=== PATIENT | male | born 1950 | race Caucasian/White ===

== ENCOUNTER 2018-03-23 05:58 | Outpatient (CLI) | payer OTHER ==
[~2018-03-23] VITALS: Ht 172.7 cm; Wt 72.6 kg
[2018-03-23] MEDS ORDERED: DILT120C85 PO (14:08)
[2018-03-23] MEDS ORDERED: LATA7.5D OP (14:08)
[2018-03-23] MEDS ORDERED: DORZ10DR22 OP (14:08)
[2018-03-23] MEDS ORDERED: LISI1TAB8 PO (14:08)
== END 2018-03-23 14:33 | disposition home or self-care (01) ==
LOC: PREOP 05:58
PROVIDERS: ATTEND Specialist
DX: Z01.818 Encounter for other preprocedural examination (principal)

== ENCOUNTER 2018-03-26 06:21 | Day surgery (SDC) | payer MEDICARE, OTHER ==
[~2018-03-26] VITALS: Ht 172.7 cm; Wt 72.6 kg
[2018-03-26 06:15] VITALS: BP 129/87
[~2018-03-26 06:21] MED LIST: DILT120C85 PO; DORZ10DR22 OP; LATA7.5D OP; LISI1TAB8 PO
[2018-03-26] MEDS ORDERED: MOXIFLOXACIN OPHTH SOLN 5 MG/ML 0.3 ML SYRINGE OP ONE (06:30)
[2018-03-26] MEDS ORDERED: LIDOCAINE PF 1% 2 ML AMP IR PRN (06:30)
[2018-03-26] MEDS ORDERED: POVIDONE (BETADINE) OPHTH SOLN 5% 30 ML OP ONE (06:30)
[2018-03-26] MEDS ORDERED: TIMOLOL MALEATE 0.5% 5 ML (TIMOPTIC) BTL OU PRN (06:30)
[2018-03-26] MEDS: TETRACAINE 0.5% OPHTH SOLN 4 ML BTL (SINGLE DOSE ONLY) OU PRN ×4 (06:43→07:06)
[2018-03-26] MEDS: PHENYLEPHRINE 10% OPHTH (NEO-SYN) 5 ML BTL OU SCH ×3 (06:51→07:06)
[2018-03-26] MEDS: CYCLOPENTOLATE 1% (CYCLOGYL) 2 ML DROPS OP SCH ×3 (06:51→07:06)
[2018-03-26] MEDS ORDERED: MIDAZOLAM 2 MG/2 ML (VERSED) VIAL ONE (07:03)
--- NOTE | 2018-03-26 07:20 | Ophthalmologist Pre-Op Note ---
Pre-Operative Progress Note H&P Reviewed The H&P was reviewed, patient examined and no changes noted. Date H&P Reviewed: Mar 26, 2018 Time H&P Reviewed: 07:20 Pre-Op Dx Cataract, Right Eye LEENA FRANCO MD Mar 26, 2018 07:20
--- NOTE | 2018-03-26 07:46 | Ophthalmology Operative Report ---
Cataract removal/placement IOL PREOPERATIVE DIAGNOSIS: Cataract Right Eye POSTOPERATIVE DIAGNOSIS: Cataract Right Eye PROCEDURE: Cataract removal and placement of posterior chamber implant, right eye SURGEON: Johny Franco ANESTHESIA: Topical with sedation COMPLICATIONS: None ESTIMATED BLOOD LOSS: Minimal DESCRIPTION OF PROCEDURE: After proper informed consent was obtained, the patient, a 67 male, was taken to the Operating Room and the right eye was anesthetized with tetracaine. The right eye was then prepped and draped in the usual manner. A wire lid speculum was placed. A paracentesis was made at the left hand position. Preservative free lidocaine was injected into the anterior chamber followed by viscoelastic. A clear corneal incision was made in the temporal position. A capsulorrhexis was preformed and the central nuclear and cortical material were removed. The posterior capsule was polished and Raymundo [id number] 14.0 IOL was placed into the capsular bag. The residual viscoelastic was aspirated and balanced saline solution was injected into the anterior chamber. Moxifloxacin was injected into the anterior chamber. The wound was checked and found to be water tight. The patient tolerated the procedure well without complications. JOHNY FRANCO MD Mar 26, 2018 07:46
[2018-03-26 07:53] VITALS: BP 116/76
[2018-03-26] MEDS ORDERED: acetaZOLAMIDE ER 500 MG CAP (DIAMOX SEQUELS) PO ONE (08:30)
--- NOTE | 2018-03-26 12:49 | Anesthesia-General Post-Op ---
MAC Patient Condition Mental Status/LOC: Same as Preop Cardiovascular: Satisfactory Nausea/Vomiting: Absent Respiratory: Satisfactory Pain: Controlled Complications: Absent Post Op Complications Complications None Follow Up Care/Instructions Patient Instructions None needed. Anesthesiology Discharge Order Discharge Order Patient is doing well, no complaints, stable vital signs, no apparent adverse anesthesia problems. No complications reported per nursing. [place] APARICIO CRNA Mar 26, 2018 12:49
== END 2018-03-26 07:54 | disposition home or self-care (01) ==
LOC: SDC 06:21
PROVIDERS: ATTEND Specialist
DX: H25.11 Age-related nuclear cataract, right eye (principal); I10 Essential (primary) hypertension; Z79.899 Other long term (current) drug therapy

== ENCOUNTER → 2019-04-12 | Outpatient (CLI) | payer MEDICARE ==
[~2019-04-12] MED LIST changes: +CLIN300C11 PO; +IBUP-2186 PO; +LISI1TAB25 PO; -LISI1TAB8 PO; +PRD10T PO
[2019-04-12 09:57] LABS: BASOPHILS % (AUTO) 0 % (0-10); EOSINOPHILS # (AUTO) 0.5 10^3/uL (0.0-0.3); EOSINOPHILS % (AUTO) 4 % (0-10); HEMATOCRIT 46 % (40-54); HEMOGLOBIN 16.2 G/DL (13.3-17.7); LYMPHOCYTES # (AUTO) 0.3 X 10^3 (1.0-4.0); LYMPHOCYTES % (AUTO) 3 % (12-44); MEAN CORPUSCULAR HEMOGLOBIN 33 PG (25-34); MEAN CORPUSCULAR HGB CONC 35 G/DL (32-36); MEAN CORPUSCULAR VOLUME 94 FL (80-99); MEAN PLATELET VOLUME 9.9 FL (7.4-10.4); MONOCYTES # (AUTO) 0.9 X 10^3 (0.0-1.0); MONOCYTES % (AUTO) 9 % (0-12); NEUTROPHILS % (AUTO) 84 % (42-75); PLATELET COUNT 171 10^3/uL (130-400); RED CELL DISTRIBUTION WIDTH 13.5 % (10.0-14.5); WHITE BLOOD COUNT 10.7 10^3/uL (4.3-11.0)
[2019-04-12 10:18] LABS: ALANINE AMINOTRANSFERASE 28 U/L (0-55); ALBUMIN 4.3 GM/DL (3.2-4.5); ALKALINE PHOSPHATASE 63 U/L (40-136); BILIRUBIN,TOTAL 0.6 MG/DL (0.1-1.0); BUN/CREATININE RATIO 18; CALCIUM 9.4 MG/DL (8.5-10.1); CARBON DIOXIDE 22 MMOL/L (21-32); CHLORIDE 98 MMOL/L (98-107); CREATININE SERUM 0.94 MG/DL (0.60-1.30); GFR ESTIMATED > 60; GLUCOSE 151 MG/DL (70-105); POTASSIUM 3.8 MMOL/L (3.6-5.0); SODIUM 132 MMOL/L (135-145); TOTAL PROTEIN 7.5 GM/DL (6.4-8.2)
== END ==
LOC: LAB 09:30
PROVIDERS: ATTEND Family Medicine
DX: R22.0 Localized swelling, mass and lump, head (principal)
CPT/HCPCS: 36415; 80053; 85025; 86735

== ENCOUNTER 2019-04-14 10:33 | Inpatient (IN) | payer MEDICARE ==
[~2019-04-14] VITALS: Ht 172.7 cm; Wt 76.5 kg
[~2019-04-14 10:33] MED LIST changes: -CLIN300C11 PO; -IBUP-2186 PO; -PRD10T PO
[2019-04-14] MEDS ORDERED: PRD10T PO (10:52)
[2019-04-14] MEDS ORDERED: CLIN300C11 PO (10:52)
[2019-04-14] MEDS ORDERED: CATHETER FLUSH 10 ML SYR IV PRN (11:00)
[2019-04-14] MEDS ORDERED: HOLD METFORMIN - RECEIVED CONTRAST 20 ML VIAL IV SCH (11:00)
[2019-04-14] MEDS ORDERED: KETOROLAC 30 MG/ML VIAL IVP ONE (11:00)
[2019-04-14] MEDS ORDERED: IOHEXOL 350 MG/ML 100 ML (OMNIPAQUE 350) VIAL IV ONE (11:00)
[2019-04-14] MEDS ORDERED: NS 100 ML (IVPB) BAG IV ONE (11:00)
[2019-04-14] MEDS ORDERED: LACTATED RINGERS 1,000 ML IV SCH (11:00)
--- NOTE | 2019-04-14 11:04 | ED General ---
General Chief Complaint: General Problems/Pain Stated Complaint: [facility] Nursing Triage Note: PT STATES HE WAS RECENTLY DX WITH THE [facility]. COMPLAINS HE IS HAVING TROUBLE SWALLOWING AND HAVING TROUBLE EATING. BILAT NECK WITH LARGE EDEMA. Nursing Sepsis Screen: No Definite Risk Source of Information: Patient Exam Limitations: No Limitations History of Present Illness Date Seen by Provider: Apr 14, 2019 Time Seen by Provider: 10:54 Initial Comments To ER with reports of neck swelling seen and trouble eating and drinking. He had body aches cough chills. This began on Thursday04/09/19. He noticed some soreness underneath his chin, the next morning he awakened to have some swelling to the lateral aspect of both cheeks. There was concern for moments, he had antibodies drawn and buccal swab done. Buccal swab was done but not yet resulted. There is some concern that the buccal swab was not "cold packed" during transport so the positive predictive value is unaffected the negative predictive value is poor if it was truly not "cold packed" during transport. He had an elevated IgG negative IgM. He doesn't believe he ever been vaccinated with MMR. Regardless, he presents today because of pain with swallowing and inability to eat and drink. Timing/Duration: 1-2 Days Severity: Moderate Associated Systoms: Cough, Fever/Chills, Malaise Allergies and Home Medications Allergies Coded Allergies: No Known Drug Allergies (Unverified , 03/23/18) Patient Home Medication List Home Medication List Reviewed: Yes Review of Systems Review of Systems Constitutional: see HPI, chills EENTM: see HPI, nose congestion, throat pain Respiratory: see HPI, cough Cardiovascular: no symptoms reported Genitourinary: no symptoms reported Musculoskeletal: no symptoms reported Skin: no symptoms reported Psychiatric/Neurological: No Symptoms Reported Hematologic/Lymphatic: No Symptoms Reported Immunological/Allergic: no symptoms reported Past Qzxwbmt-Enjovv-Zasfgn Hx Patient Social History Alcohol Use: Occasionally Uses Recreational Drug Use: Yes Drug of Choice: POT Smoking Status: Never a Smoker Recent Foreign Travel: No Contact w/Someone Who Travel: No Recent Infectious Disease Expo: No Recent Hopitalizations: No Past Medical History Orthopedic Respiratory: No Cardiac: Yes Hypertension Neurological: No Genitourinary: No Gastrointestinal: No Musculoskeletal: No Endocrine: No HEENT: No Cancer: No Psychosocial: No Integumentary: No Physical Exam Vital Signs Vital Signs - First Documented 04/14/19 10:43 Temp 38.1 Pulse 73 Resp 16 B/P (MAP) 154/98 (116) Pulse Ox 97 O2 Delivery Room Air Capillary Refill : Less Than 3 Seconds Height, Weight, BMI Height: 5'8.00" Weight: 160lbs. 0.0oz. [id number]; 24.00 BMI Method: General Appearance: No Apparent Distress, WD/WN Eyes: Bilateral Eye Normal Inspection, Bilateral Eye PERRL, Bilateral Eye EOMI HEENT: PERRL/EOMI, TMs Normal Neck: Full Range of Motion, Normal Inspection Respiratory: No Accessory Muscle Use, No Respiratory Distress Gastrointestinal: Non Tender, Soft Extremity: Normal Capillary Refill, Normal Inspection Neurologic/Psychiatric: Alert, Oriented x3 Skin: Normal Color, Warm/Dry Progress/Results/Core Measures Suspected Sepsis Recent Fever Within 48 Hours: Yes Infection Criteria Present: Suspected New Infection New/Unexplained Altered Menta: No Sepsis Screen: No Definite Risk SIRS Temperature: Pulse: 73 Respiratory Rate: 16 Laboratory Tests 04/14/19 10:45: White Blood Count 10.7 Blood Pressure 154 /98 Mean: 116 Laboratory Tests 04/14/19 10:45: Creatinine 0.93, Platelet Count 202, Total Bilirubin 0.6 Results/Orders Lab Results Laboratory Tests Test 04/14/19 10:45 Range/Units White Blood Count 10.7 4.3-11.0 10^3/uL Red Blood Count 4.82 4.35-5.85 10^6/uL Hemoglobin 15.8 13.3-17.7 G/DL Hematocrit 44 40-54 % Mean Corpuscular Volume 92 80-99 FL Mean Corpuscular Hemoglobin 33 25-34 PG Mean Corpuscular Hemoglobin Concent 36 32-36 G/DL Red Cell Distribution Width 13.0 10.0-14.5 % Platelet Count 202 130-400 10^3/uL Mean Platelet Volume 10.4 7.4-10.4 FL Neutrophils (%) (Auto) 83 H 42-75 % Lymphocytes (%) (Auto) 2 L 12-44 % Monocytes (%) (Auto) 10 0-12 % Eosinophils (%) (Auto) 4 0-10 % Basophils (%) (Auto) 0 0-10 % Neutrophils # (Auto) 8.9 H 1.8-7.8 X 10^3 Lymphocytes # (Auto) 0.3 L 1.0-4.0 X 10^3 Monocytes # (Auto) 1.1 H 0.0-1.0 X 10^3 Eosinophils # (Auto) 0.4 H 0.0-0.3 10^3/uL Basophils # (Auto) 0.0 0.0-0.1 10^3/uL Neutrophils % (Manual) 74 % Lymphocytes % (Manual) 2 % Monocytes % (Manual) 8 % Eosinophils % (Manual) 5 % Basophils % (Manual) 0 % Band Neutrophils 11 % Toxic Granulation 1+ Blood Morphology Comment NORMAL Sodium Level 128 L 135-145 MMOL/L Potassium Level 3.7 3.6-5.0 MMOL/L Chloride Level 92 L 98-107 MMOL/L Carbon Dioxide Level 24 21-32 MMOL/L Anion Gap 12 5-14 MMOL/L Blood Urea Nitrogen 16 7-18 MG/DL Creatinine 0.93 0.60-1.30 MG/DL Estimat Glomerular Filtration Rate > 60 BUN/Creatinine Ratio 17 Glucose Level 152 H 70-105 MG/DL Calcium Level 8.6 8.5-10.1 MG/DL Corrected Calcium 8.7 8.5-10.1 MG/DL Total Bilirubin 0.6 0.1-1.0 MG/DL Aspartate Amino Transf (AST/SGOT) 34 5-34 U/L Alanine Aminotransferase (ALT/SGPT) 64 H 0-55 U/L Alkaline Phosphatase 66 40-136 U/L Total Protein 7.0 6.4-8.2 GM/DL Albumin 3.9 3.2-4.5 GM/DL My Orders Orders - STEFANIE ALVAREZ PHYSICIAN OFFICE SPECIALIST Cbc With Automated Diff (04/14/19 10:52) Comprehensive Metabolic Panel (04/14/19 10:52) Ed Iv/Invasive Line Start (04/14/19 10:52) Ct Neck (Soft Tissue) W (04/14/19 10:52) Ketorolac Injection (Toradol Injection) (04/14/19 11:00) Lactated Ringers (Lr 1000 Ml Iv Solution (04/14/19 11:00) Iohexol Injection (Omnipaque 350 Mg/Ml 1 (04/14/19 11:00) Received Contrast (Hold Metformin- Contr (04/14/19 11:00) Sodium Chloride Flush (Catheter Flush Sy (04/14/19 11:00) Ns (Ivpb) (Sodium Chloride 0.9% Ivpb Bag (04/14/19 11:00) Manual Differential (04/14/19 10:45) Ns Iv 1000 Ml (Sodium Chloride 0.9%) (04/14/19 11:45) Methylprednisolone Sod Succ (Solu-Medrol (04/14/19 13:00) Medications Given in ED Current Medications Medications Dose Ordered Sig/Kong Route Start Time Stop Time Status Last Admin Dose Admin Iohexol 75 ml ONCE ONCE IV 04/14/19 11:00 04/14/19 11:02 DC 04/14/19 11:49 75 ML Ketorolac Tromethamine 15 mg ONCE ONCE IVP 04/14/19 11:00 04/14/19 11:01 DC 04/14/19 11:09 15 MG Sodium Chloride 100 ml ONCE ONCE IV 04/14/19 11:00 04/14/19 11:02 DC 04/14/19 11:49 80 ML Vital Signs/I&O 04/14/19 10:43 Temp 38.1 Pulse 73 Resp 16 B/P (MAP) 154/98 (116) Pulse Ox 97 O2 Delivery Room Air Capillary Refill : Less Than 3 Seconds Blood Pressure Mean: 116 Departure Communication (Admissions) Time/Spoke to Admitting Phy: 12:[address] Keyes, we will admit, buccal swabs pending. Given the elevated IgG and negative IgM this would suggest remote infection or vaccination to mumps virus, however the IgG antibody is quite elevated. There are other etiologies that can cause parotitis such as this including parainfluenza virus, Angelita-Quinonez virus. Impression Primary Impression: Parotitis, acute Disposition: ADMITTED INPATIENT Condition: Stable Admissions Decision to Admit Reason: Admit from ER (General) Decision to Admit/Date: Apr 14, 2019 Time/Decision to Admit Time: 12:59 Departure-Patient Inst. Referrals: MICHELL KEYES DO (PCP/Family) Primary Care Physician STEFANIE ALVAREZ APRN Apr 14, 2019 11:04
[2019-04-14 11:11] LABS: BASOPHILS % (AUTO) 0 % (0-10); EOSINOPHILS # (AUTO) 0.4 10^3/uL (0.0-0.3); EOSINOPHILS % (AUTO) 4 % (0-10); HEMATOCRIT 44 % (40-54); HEMOGLOBIN 15.8 G/DL (13.3-17.7); LYMPHOCYTES # (AUTO) 0.3 X 10^3 (1.0-4.0); LYMPHOCYTES % (AUTO) 2 % (12-44); MEAN CORPUSCULAR HEMOGLOBIN 33 PG (25-34); MEAN CORPUSCULAR HGB CONC 36 G/DL (32-36); MEAN CORPUSCULAR VOLUME 92 FL (80-99); MEAN PLATELET VOLUME 10.4 FL (7.4-10.4); MONOCYTES # (AUTO) 1.1 X 10^3 (0.0-1.0); MONOCYTES % (AUTO) 10 % (0-12); NEUTROPHILS # (AUTO) 8.9 X 10^3 (1.8-7.8); NEUTROPHILS % (AUTO) 83 % (42-75); PLATELET COUNT 202 10^3/uL (130-400); WHITE BLOOD COUNT 10.7 10^3/uL (4.3-11.0)
[2019-04-14 11:29] LABS: ALANINE AMINOTRANSFERASE 64 U/L (0-55); ALBUMIN 3.9 GM/DL (3.2-4.5); ALKALINE PHOSPHATASE 66 U/L (40-136); BILIRUBIN,TOTAL 0.6 MG/DL (0.1-1.0); BUN/CREATININE RATIO 17; CALCIUM 8.6 MG/DL (8.5-10.1); CARBON DIOXIDE 24 MMOL/L (21-32); CHLORIDE 92 MMOL/L (98-107); CREATININE SERUM 0.93 MG/DL (0.60-1.30); GFR ESTIMATED > 60; GLUCOSE 152 MG/DL (70-105); POTASSIUM 3.7 MMOL/L (3.6-5.0); SODIUM 128 MMOL/L (135-145)
[2019-04-14] MEDS ORDERED: NS IV 1000 ML 1,000 ML IV SCH (11:45)
[2019-04-14 11:53] LABS: BAND NEUTROPHILS 11 %; BASOPHILS % (MANUAL) 0 %; EOSINOPHILS % (MANUAL) 5 %; LYMPHOCYTES % (MANUAL) 2 %; MONOCYTES % (MANUAL) 8 %; NEUTROPHILS % (MANUAL) 74 %; RBC MORPH NORMAL; TOXIC GRANULATION/VACUOLAZATIO 1+
--- NOTE | 2019-04-14 12:36 | Diagnostic Imaging Report ---
CLINICAL INDICATION: Patient recently diagnosed with the mumps. Patient complains of having trouble swallowing and trouble eating. Bilateral neck edema. EXAM: Axial CT scan of the neck soft tissue performed with 75 mL of Omnipaque 350 IV contrast. Coronal and sagittal reformatted images were created. Auto Exposure Controls were utilized during the CT exam to meet ALARA standards for radiation dose reduction. COMPARISON: None. FINDINGS: There is a large amount of neck soft tissue swelling involving the bilateral parotid glands and bilateral submandibular glands with heterogeneous enhancement seen within them. There is no measurable mass seen involving the salivary glands. Thyroid gland is unremarkable. There is fat stranding throughout the upper head and neck region and along the anterior aspect of the neck. There is significant thickening of the bilateral platysma muscles. Mildly prominent bilateral neck lymph nodes seen. Most prominent lymph node in the right level II region measures 9 mm x 12 mm. There is mild soft tissue swelling involving the oropharyngeal soft tissue, soft palate, and laryngeal soft tissue. There is mxsg-sv-mcsuozhe narrowing of the upper airway. There is no measurable fluid collection or abscess seen. The neck vascular structures are unremarkable. There are surgical clips adjacent to the right side of the right thyrohyoid cartilage. There is a 9 mm x 5 mm pleural-based nodule involving the left upper lobe along the upper aspect of the major fissure. C3 through C7 anterior cervical disc fusion with strut graft seen involving the C5 through C6 level. There is severe bilateral neural foramen narrowing involving the C4 through C7 levels with uncinate spurs. IMPRESSION: 1: There is a large amount of soft tissue neck swelling which involves the bilateral parotid glands and bilateral submandibular glands with heterogeneous enhancement. There is no neck soft tissue measurable mass seen. There is diffuse neck fat stranding and platysma muscle thickening bilaterally noted involving the neck. There is mild lymphadenopathy, likely reactive. There is no abscess seen. These findings may be related to sialadenitis in a patient with history of mumps. 2: There is qxgb-ru-hsvugmef soft tissue swelling of the oropharyngeal and laryngeal soft tissue with some narrowing of the upper airway, as described above. 3: There is a pleural-based 5 mm x 9 mm left upper lobe nodule along the major fissure. Comparison to prior chest CT scans would help better evaluate. If none are available, then chest CT scan in six months is suggested to evaluate for stability. Dictated by: Dictated on workstation # [id number]
[2019-04-14] MEDS ORDERED: methylPREDNISolone 125 MG (Solu-MEDROL) VIAL IVP ONE (13:00)
[2019-04-14 13:39] VITALS: BP 165/86
[2019-04-14] MEDS ORDERED: KETOROLAC 15 MG/ML VIAL IV PRN (14:00)
[2019-04-14] MEDS: NS IV 1000 ML 1,000 ML IV SCH ×2 (14:10→22:52)
--- NOTE | 2019-04-14 14:45 | NUR ---
REPORT GIVEN TO ROCIO BEAR AT THIS TIME
[2019-04-14] MEDS: PANTOPRAZOLE 40 MG (PROTONIX) VIAL IV SCH (14:46)
[2019-04-14 16:00] VITALS: BP 128/75
--- NOTE | 2019-04-14 16:40 | NUR ---
Wilfred from [facility] called me and the patients mump Buccal swab from 04/12/19 is negative. With that result and the IgG and IgM results it is determined he does not have an acute mumps infection and isolation is removed. I reported this to the patient, Dr Keyes and Neena CHAN.
[2019-04-14] MEDS ORDERED: DEXAMETHASONE 10 MG/ML (DECADRON) 1 ML VIAL IV NR (17:00)
[2019-04-14] MEDS ORDERED: AZITHROMYCIN INJECTION 500 MG in NS (IVPB) 250 ML IV NR (17:15)
[2019-04-14] MEDS ORDERED: IBUP-2186 PO (17:21)
[2019-04-14 19:15] VITALS: BP 136/76
[2019-04-14] MEDS: DEXAMETHASONE 4 MG/ML SDV (DECADRON) IV SCH (22:12)
[2019-04-15] VITALS (7 sets, daily range): BP systolic 114–167; BP diastolic 66–79
[2019-04-15] MEDS: NS IV 1000 ML 1,000 ML IV SCH ×3 (00:05→21:35)
[2019-04-15] MEDS: DEXAMETHASONE 4 MG/ML SDV (DECADRON) IV SCH (05:25)
[2019-04-15 06:19] LABS: BASOPHILS % (AUTO) 0 % (0-10); EOSINOPHILS # (AUTO) 0.1 10^3/uL (0.0-0.3); EOSINOPHILS % (AUTO) 1 % (0-10); HEMATOCRIT 39 % (40-54); HEMOGLOBIN 13.7 G/DL (13.3-17.7); LYMPHOCYTES # (AUTO) 0.4 X 10^3 (1.0-4.0); LYMPHOCYTES % (AUTO) 5 % (12-44); MEAN CORPUSCULAR HEMOGLOBIN 33 PG (25-34); MEAN CORPUSCULAR HGB CONC 35 G/DL (32-36); MEAN CORPUSCULAR VOLUME 93 FL (80-99); MEAN PLATELET VOLUME 10.8 FL (7.4-10.4); MONOCYTES # (AUTO) 0.5 X 10^3 (0.0-1.0); MONOCYTES % (AUTO) 7 % (0-12); NEUTROPHILS # (AUTO) 5.8 X 10^3 (1.8-7.8); NEUTROPHILS % (AUTO) 87 % (42-75); PLATELET COUNT 174 10^3/uL (130-400); RED CELL DISTRIBUTION WIDTH 12.8 % (10.0-14.5); WHITE BLOOD COUNT 6.8 10^3/uL (4.3-11.0)
[2019-04-15 06:47] LABS: ALANINE AMINOTRANSFERASE 60 U/L (0-55); ALBUMIN 3.2 GM/DL (3.2-4.5); ALKALINE PHOSPHATASE 55 U/L (40-136); BILIRUBIN,TOTAL 0.4 MG/DL (0.1-1.0); BUN/CREATININE RATIO 20; CALCIUM 8.2 MG/DL (8.5-10.1); CARBON DIOXIDE 22 MMOL/L (21-32); CHLORIDE 101 MMOL/L (98-107); CREATININE SERUM 0.81 MG/DL (0.60-1.30); GFR ESTIMATED > 60; GLUCOSE 139 MG/DL (70-105); POTASSIUM 3.9 MMOL/L (3.6-5.0); SODIUM 133 MMOL/L (135-145); TOTAL PROTEIN 5.6 GM/DL (6.4-8.2)
--- NOTE | 2019-04-15 07:44 | NUR ---
MED REC WAS DONE YESTERDAY BY THE NURSE AND SURGICAL ENDOSCOPIST. I DID HAVE TO FILL IN THE DIRECTIONS AND NOTES IN THE MED REC COMMENTS. OTC MEDS: IBUPROFEN
--- NOTE | 2019-04-15 08:48 | Diagnostic Imaging Report ---
PROCEDURE: CT chest without contrast. TECHNIQUE: Multiple contiguous axial images were obtained through the chest without the use of intravenous contrast. Auto Exposure Controls were utilized during the CT exam to meet ALARA standards for radiation dose reduction. INDICATION: Left upper lobe nodule There are no prior CT chest examinations available for comparison. The CT neck exam performed on 04/14/2019 however did note a small 5 x 9 mm nodule along the posterior aspect of the left upper lung. That finding is again evident and does not appear changed significantly in size or appearance. Along the posterior aspect of the right upper lung there is a poorly defined 11.7 x 14.9 mm parenchymal opacity. This could be related to a small focus of pneumonia/atelectasis or perhaps even to scar formation. Neoplastic disease would be a less likely possibility but could also present in this manner. The lungs are otherwise generally clear and well aerated. There is no sign of a pleural effusion. The heart size is within normal limits. The ascending aorta is not abnormally dilated. There are a number of small nodes in the mediastinum and aorticopulmonary window. The largest node is in the aorticopulmonary window and measures 9 x 14 mm. These nodes are nonspecific but may be reactive nodes as opposed to nodes involved by neoplasm. The sections through the upper abdomen failed to show any sign of an acute abnormality. The bone windows are unremarkable for a fracture or for a destructive lesion. The postsurgical changes involving the cervical spine seen on the prior study are partially visualized on this exam. IMPRESSION: 1. The small nodular density in the posterior aspect of the left upper lung seen previously is again evident and no different. There is also a poorly defined parenchymal opacity along the posterior aspect of the right upper lobe. Both of these findings are nonspecific, but the possibility that they are related to a malignant process should certainly be considered. I would recommend that a short-term (3 month) follow-up CT chest exam be performed for further study. Also if previous CT chest exams are available they would be helpful for comparison. 2. There is no acute cardiopulmonary abnormality noted. 3. There are a few borderline-enlarged aorticopulmonary window and mediastinal nodes. Dictated by: Dictated on workstation # [id number]
--- NOTE | 2019-04-15 08:50 | NUR ---
RD ASSESSMENT PMHx: HTN; c/o neck swelling causing difficulty eating/drinking PT INTERACTION: Pt was awake and pleasant during consult for MST score. Pt states current appetite "isn't much" and has been this way for 4d. Note PO intake of 0% x1meal, per chart review. Upon visual exam of pt breakfast tray, pt appeared to eat approx 50-75% of meal. Pt states following a regular diet at home, and currently has some difficulty swallowing d/t throat swelling. Pt states this difficulty started last Thursday. Pt states no recent issues with n/v/c/d at this time, and that his last BM was 3d ago. Note pt not currently on bowel regimen per chart review. Pt states no recent wt changes. Note recent 9# wt gain x3w, per chart review. Given wt hx and that pt intake is improving, pt does not meet criteria for malnutrition per ASPEN guidelines. ABNORMAL NUTRITION-RELATED LAB VALUES LOW: Na 133; Ca 8.2; Pro 5.6 HIGH: glu 139; ALT 60 Est. kcal needs: 4293-7984 kcal | 25-30 kcal/kg Est. Pro needs: 61-77 g Pro | 0.8-1.0 g Pro/kg PES STATEMENT: Inadequate oral intake (NI-2.1) related loss of appetite | difficulty swallowing as evidenced by pt interview INTERVENTION: Continue with current diet order of Regular diet. Continue with current supplementation order of Ensure Enlive with meals TID, for increased kcal intake. Provides 350 kcal and 13 g Pro per serving. Would recommend d/c supplementation order when PO intake is at 75% or greater. Will continue to follow and reassess as pt needs, intake and status change. MONITOR/EVALUATE: PO Intake; Plan of Care; Hydration Status; Weight Status; Lab Values Lee Kim, MS, RD, LD
[2019-04-15] MEDS ORDERED: lisINopril 20 MG (PRINIVIL) TABLET PO NR (09:15)
[2019-04-15] MEDS ORDERED: AZITHROMYCIN INJECTION 500 MG in NS (IVPB) 250 ML IV NR (09:15)
[2019-04-15] MEDS: PANTOPRAZOLE 40 MG (PROTONIX) VIAL IV SCH (09:20)
[2019-04-15] MEDS ORDERED: ENOXAPARIN 40 MG/0.4 ML (LOVENOX) SYR SC SCH (12:00)
--- NOTE | 2019-04-15 12:36 | History & Physical ---
History of Present Illness History of Present Illness Reason for visit/HPI This is a 68 year old male who was seen in my office on 04/12/19 with "mumps". He stated he had went to the urgent care over the weekend and was told he had mumps. However, he was not swabbed for mumps and he was given clindamycin and prednisone. He was complaining about difficulty swallowing when he was in my office and he did have significant swelling in his submental and submandibular nodes bilaterally so I offered admission for IVFs and further workup and treatment. The patient declined admission so ID was notified and he was sent to the hospital for proper mumps testing and then instructed to go home and be quarantined until his results were obtained. He was instructed on oral rehydration and that if he was unable to accomplish this that he should contact my office for admission. Instead, he presented to the emergency room with complaint of worsening dysphagia. A CT scan of the soft tissues of the neck showed significant swelling in his salivary glands and cervical lymph nodes but no abscess. It was decided to admit him for IVFs, supportive care and isolation until his final on his mumps came back. Date of Admission Apr 14, 2019 at 13:03 Date Seen by a Provider: Apr 15, 2019 Time Seen by a Provider: 09:00 I consulted on this patient on 04/15/19 12:26 Attending Physician Tracie Keyes DO Admitting Physician Tracie Keyes DO Consult Allergies and Home Medications Allergies Coded Allergies: No Known Drug Allergies (Unverified , 03/23/18) Home Medications Clindamycin HCl 300 Mg Capsule, 300 MG PO TID, (Reported) FILLED 04-11-2019 #30 /10 DAY SUPPLY Ibuprofen 200 Mg Tablet, 400 MG PO Q8H PRN for PAIN-MODERATE (5-7), (Reported) Prednisone 10 Mg Tab, MG PO UD, (Reported) PREDNISONE TAPER 6 TABS,5,4,3,2,1 UNTIL ALL TAKEN Patient Home Medication List Home Medication List Reviewed: Yes Past Nogwjop-Sjkksy-Uatukk Hx Past Med/Social Hx: Reviewed Nursing Past Med/Soc Hx Patient Social History Alcohol Use: Occasionally Uses Recreational Drug Use: Yes Drug of Choice: POT Smoking Status: Never a Smoker Recent Foreign Travel: No Contact w/other who traveled: No Recent Hopitalizations: No Recent Infectious Disease Expo: No Immunizations Up To Date Date of Pneumonia Vaccine: Feb 11, 2018 Seasonal Allergies Seasonal Allergies: Yes Past Medical History Surgeries: Orthopedic Cardiac: Hypertension Musculoskeletal: Arthritis HEENT: Glaucoma Review of Systems Constitutional: malaise, weakness EENTM: throat pain, throat swelling Respiratory: No no symptoms reported, No see HPI, No cough, No dyspnea on exertion, No hemoptysis, No orthopnea, No phlegm, No short of breath, No stridor, No wheezing, No other Cardiovascular: No no symptoms reported, No see HPI, No chest pain, No edema, No Hx of Intervention, No palpitations, No syncope, No vascular heart diseas, No other Gastrointestinal: dysphagia Genitourinary: No no symptoms reported, No see HPI, No decreased output, No discharge, No dysuria, No frequency, No hematuria, No hesitancy, No incontinence, No nocturia, No pain, No other Musculoskeletal: muscle weakness Skin: No no symptoms reported, No see HPI, No change in color, No change in hair/nails, No dryness, No hx of skin cancer, No lesions, No lumps, No pruritus, No rash, No other Psychiatric/Neurological: Weakness Physical Exam Vital Signs Vital Signs - First Documented 04/14/19 10:43 Temp 38.1 Pulse 73 Resp 16 B/P (MAP) 154/98 (116) Pulse Ox 97 O2 Delivery Room Air Capillary Refill : Less Than 3 Seconds Height, Weight, BMI Height: 5'8.00" Weight: 160lbs. 0.0oz. 72.901982dd; 25.64 BMI Method: General Appearance: Mild Distress HEENT: TMs Normal, Pharyngeal Erythema Neck: Lymphadenopathy (L), Lymphadenopathy (R), Other (significant submental and parotid gland swelling) Respiratory: Lungs Clear Cardiovascular: Regular Rate, Rhythm Gastrointestinal: Normal Bowel Sounds, Non Tender, Soft Rectal: Deferred Back: No CVA Tenderness Extremity: Non Tender, No Calf Tenderness, No Pedal Edema Neurologic/Psychiatric: Alert, Oriented x3 Skin: Warm/Dry Comments Laboratory Tests 04/15/19 05:59: White Blood Count 6.8, Red Blood Count 4.19L, Hemoglobin 13.7, Hematocrit 39L, Mean Corpuscular Volume 93, Mean Corpuscular Hemoglobin 33, Mean Corpuscular Hemoglobin Concent 35, Red Cell Distribution Width 12.8, Platelet Count 174, Mean Platelet Volume 10.8H, Neutrophils (%) (Auto) 87H, Lymphocytes (%) (Auto) 5L, Monocytes (%) (Auto) 7, Eosinophils (%) (Auto) 1, Basophils (%) (Auto) 0, Neutrophils # (Auto) 5.8, Lymphocytes # (Auto) 0.4L, Monocytes # (Auto) 0.5, Eosinophils # (Auto) 0.1, Basophils # (Auto) 0.0, Sodium Level 133L, Potassium Level 3.9, Chloride Level 101, Carbon Dioxide Level 22, Anion Gap 10, Blood Urea Nitrogen 16, Creatinine 0.81, Estimat Glomerular Filtration Rate > 60, BUN/Creatinine Ratio 20, Glucose Level 139H, Calcium Level 8.2L, Corrected Calcium 8.8, Total Bilirubin 0.4, Aspartate Amino Transf (AST/SGOT) 28, Alanine Aminotransferase (ALT/SGPT) 60H, Alkaline Phosphatase 55, Total Protein 5.6L, Albumin 3.2, Angelita-Quinonez Virus Capsid Ag IgG Ab [Pending], Angelita-Quinonez Capsid Ag IgG Interp [Pending], Angelita-Quinonez Virus Capsid Ag IgM Ab [Pending], Angelita- Quinonez Capsid Ag IgM Interp [Pending], Angelita-Quinonez Virus Early Antigen Ab [Pending], Angelita-Quinonez Early Antigen Interp [Pending], Angelita-Quinonez Nuclear Ag Ab Titer [Pending], Angelita-Quinonez Nuclear Ag IgG Interp [Pending] Assessment/Plan Assessment and Plan 1. Salivary/Parotid Gland and Cervical Lymphadenopathy--mumps negative so awaiting Cat Scratch and EBV titers, added IV dexamethasone and did cover with zithromax as patient did state that he had been around a cat recently 2. Dysphagia due to Swollen Neck Glands--support with IVFs and monitor oral intake 3. Hypertension--restart lisinopril, patient stopped his BP meds several months ago 4. Right Upper Lobe Pulmonary Nodule seen on CT scan of neck--will check CT scan of the chest to assess further and look for any other lesions or adenopathy in the chest Admission Diagnosis Admission Status: Inpatient Order (span 2 midnights) Reason for Inpatient Admission: Will need IVFs for rehydation and IV steroids for lymph node swelling Clinical Quality Measures DVT/VTE Risk/Contraindication: Risk Factor Score Per Nursin RFS Level Per Nursing on Admit: 3=High TRACIE KEYES DO Apr 15, 2019 12:36
[2019-04-15] MEDS: DEXAMETHASONE 10 MG/ML (DECADRON) 1 ML VIAL IV SCH ×2 (13:55→21:35)
[2019-04-16 04:27] VITALS: BP 113/64
[2019-04-16] MEDS: NS IV 1000 ML 1,000 ML IV SCH (06:13)
[2019-04-16] MEDS: DEXAMETHASONE 10 MG/ML (DECADRON) 1 ML VIAL IV SCH (06:13)
[2019-04-16 08:39] VITALS: BP 154/82
[2019-04-16] MEDS: PANTOPRAZOLE 40 MG (PROTONIX) VIAL IV SCH (08:44)
[2019-04-16] MEDS ORDERED: lisINopril 20 MG (PRINIVIL) TABLET PO SCH (09:00)
[2019-04-16] MEDS ORDERED: PRED10TA22 PO (10:12)
--- NOTE | 2019-04-16 10:19 | Discharge Summary ---
Discharge Summary Hospital Course Was the Problem List Reviewed?: Yes Problems/Dx: (1) Acute parotitis Status: Acute (2) Acute Angelita Quinonez virus (EBV) infection Status: Acute Hospital Course Date of Admission: Apr 14, 2019 at 13:03 Admission Diagnosis : Acute parotitis Family Physician/Provider: Michell Keyes DO Date of Discharge: 04/16/19 Discharge Diagnosis: Acute parotitis due to Angelita-Quinonez virus Hospital Course: Josh Simon is a 68-year-old male who is admitted with parotitis. He had dysphagia due to the swollen glands. He was started on steroids to reduce the inflammation. Lab testing revealed that he had an acute Angelita-Quinonez virus infection with positive early antigen. Mumps testing was negative. His swelling improved with the steroids and he was discharged with a steroid taper. He should follow-up with Dr. Keyes in about a week. Labs and Pending Lab Test: Home Meds Active Prednisone 10 Mg Tab.ds.pk 10 Mg PO DAILY Take 6 tabs(60mg)daily,decrease by 1 tab(10mg)every other day. Reported Ibu-200 (Ibuprofen) 200 Mg Tablet 400 Mg PO Q8H PRN Prednisone 10 Mg Tab Mg PO UD PREDNISONE TAPER 6 TABS,5,4,3,2,1 UNTIL ALL TAKEN Clindamycin HCl 300 Mg Capsule 300 Mg PO TID FILLED 04-11-2019 #30 /10 DAY SUPPLY Assessment/Pt Instructions Take medications as prescribed. Complete urinary taper of steroids. Follow up with Dr. Keyes in about a week. Return with worsening swelling, pain, or if you feel like you're getting worse. Discharge Planning: <30 minutes discharge planning Discharge Instructions Discharge Diet: No Restrictions Activity as Tolerated: Yes Discharge Physical Examination Vital Signs Vital Signs Date Time Temp Pulse Resp B/P (MAP) Pulse Ox O2 Delivery O2 Flow Rate FiO2 04/16/19 08:39 36.6 61 20 154/82 (106) 99 Room Air General Appearance: No Apparent Distress, WD/WN HEENT: Other (Bilateral parotid gland swelling, submandibular lymphadenopathy bilaterally) Respiratory: Lungs Clear, Normal Breath Sounds, No Respiratory Distress Cardiovascular: Regular Rate, Rhythm, No Edema, No Murmur Gastrointestinal: Normal Bowel Sounds, Non Tender, Soft Extremity: Normal Inspection, Non Tender, No Pedal Edema Skin: Normal Color, Warm/Dry Neurologic/Psychiatric: Alert, Oriented x3, No Motor/Sensory Deficits, Normal Mood/Affect Allergies: Coded Allergies: No Known Drug Allergies (Unverified , 03/23/18) Copy Copies To 1: MICHELL KEYES DO Discharge Summary Date of Admission Apr 14, 2019 at 13:03 Date of Discharge Discharge Date: Apr 16, 2019 Discharge Time: 10:18 Admission Diagnosis Acute parotitis Comfort Measures/ Cardiopulmonary Arrest: Ventricular Fibrillation Discharge Diagnosis Acute parotitis due to Angelita-Quinonez virus infection (1) Acute Angelita Quinonez virus (EBV) infection Status: Acute (2) Acute parotitis Status: Acute Clinical Quality Measures DVT/VTE Risk/Contraindication: Risk Factor Score Per Nursin RFS Level Per Nursing on Admit: 3=High ERI VARGAS MD Apr 16, 2019 10:19
[2019-04-16 11:35] VITALS: BP 154/82
== END 2019-04-16 11:35 | disposition home or self-care (01) | DRG 156 ==
LOC: ER 10:33 → 4TH 13:03
PROVIDERS: ADMIT Family Medicine; ATTEND Family Medicine
DX: K11.21 Acute sialoadenitis (principal); B27.09 Gammaherpesviral mononucleosis with other complications; R13.10 Dysphagia, unspecified; I10 Essential (primary) hypertension; M19.91 Primary osteoarthritis, unspecified site; H40.9 Unspecified glaucoma; R91.1 Solitary pulmonary nodule
CPT/HCPCS: 36415; 70491; 71250; 80053; 85007; 85025; 85027; 86308; 86611; 86663; 86664; 86665

== ENCOUNTER → 2020-09-12 | Outpatient (CLI) | payer MEDICARE ==
[~2020-09-12] MED LIST changes: +CLIN300C12 PO; +IBUP-47 PO; -LISI1TAB25 PO; +LISI1TAB46 PO; +PRD10T PO; +PRED10TA22 PO
--- NOTE | 2020-09-12 11:29 | Diagnostic Imaging Report ---
PROCEDURE: US right lower extremity venous. TECHNIQUE: Multiple real-time grayscale images were obtained over the right lower extremity in various projections. Additional spectral analysis and color Doppler duplex images were also obtained. INDICATION: Right leg pain and swelling. FINDINGS: There is extensive hypoechoic occlusive acute appearing DVT throughout the right lower extremity system including the common femoral, the visualized profunda, the superficial femoral vein, the popliteal vein as well as the major calf veins. There is a subcutaneous edema without demonstrated fluid collection. IMPRESSION: There is a very large burden of occlusive deep vein thrombus throughout the right lower extremity. These results were phoned to the ordering clinic prior to this dictation. Dictated by: Dictated on workstation # [id number]
== END ==
LOC: RAD 10:40
PROVIDERS: ATTEND Family Medicine
DX: I82.401 Acute embolism and thrombosis of unspecified deep veins of right lower extremity (principal)

== ENCOUNTER → 2020-10-19 | Outpatient (CLI) | payer MEDICARE ==
[~2020-10-19] MED LIST changes: +HOLD METFORMIN - RECEIVED CONTRAST 20 ML VIAL IV SCH; +IOHEXOL 350 MG/ML 100 ML (OMNIPAQUE 350) VIAL IV ONE; +NS 100 ML (IVPB) BAG IV ONE
[2020-10-19 11:29] LABS: BASOPHILS % (AUTO) 1 % (0-10); EOSINOPHILS # (AUTO) 0.2 10^3/uL (0.0-0.3); EOSINOPHILS % (AUTO) 3 % (0-10); HEMATOCRIT 41 % (40-54); HEMOGLOBIN 13.6 g/dL (13.3-17.7); LYMPHOCYTES # (AUTO) 0.9 10^3/uL (1.0-4.0); LYMPHOCYTES % (AUTO) 11 % (12-44); MEAN CORPUSCULAR HEMOGLOBIN 32 pg (25-34); MEAN CORPUSCULAR HGB CONC 34 g/dL (32-36); MEAN CORPUSCULAR VOLUME 94 fL (80-99); MEAN PLATELET VOLUME 11.3 fL (9.0-12.2); MONOCYTES # (AUTO) 0.7 10^3/uL (0.0-1.0); MONOCYTES % (AUTO) 9 % (0-12); NEUTROPHILS # (AUTO) 6.2 10^3/uL (1.8-7.8); NEUTROPHILS % (AUTO) 77 % (42-75); WHITE BLOOD COUNT 8.1 10^3/uL (4.3-11.0)
[2020-10-19 11:31] LABS: PLATELET COUNT 51 10^3/uL (130-400)
[2020-10-19 11:46] LABS: ERYTHROCYTE SEDIMENTATION RATE 6 MM/HR (0-30)
[2020-10-19 11:54] LABS: ALBUMIN 4.1 GM/DL (3.2-4.5); BILIRUBIN,TOTAL 0.7 MG/DL (0.1-1.0); CALCIUM 9.8 MG/DL (8.5-10.1); CREATININE SERUM 0.82 MG/DL (0.60-1.30); POTASSIUM 4.3 MMOL/L (3.6-5.0); TOTAL PROTEIN 7.3 GM/DL (6.4-8.2)
--- NOTE | 2020-10-19 12:59 | Diagnostic Imaging Report ---
EXAMINATION: CT neck and chest with intravenous contrast. TECHNIQUE: Multiple contiguous axial images were obtained through the neck and chest after the uneventful administration of intravenous contrast. All CT scans use one or more of the following dose optimizing techniques: automated exposure control, MA and/or KvP adjustment based on patient size and exam type or iterative reconstruction. HISTORY: Supraclavicular adenopathy. Evaluate lymph nodes. COMPARISON: 04/15/2019. FINDINGS: Neck CT: A conglomerate of pathologically enlarged centrally hypoattenuating lymph nodes is seen in the left supraclavicular region measuring 5.6 x 3.1 cm. Similar findings are seen in the right supraclavicular region to a lesser extent with the largest conglomerate measuring 3.6 x 1.6 cm. Additional pathologically enlarged lymph nodes are visualized more superiorly in the neck up to the T6-T7 level. The posterior nasopharynx and oropharynx demonstrate appropriate symmetry. There is no displacement of the parapharyngeal fat planes. There is no abnormal process evident within the prevertebral or retropharyngeal space. There is no evidence of abnormal thickening of the epiglottis or aryepiglottic folds. The vocal folds appear symmetric. The parotid, submandibular and thyroid gland are unremarkable. The vascular structures of the neck demonstrate no evidence of high-grade stenosis on this nondedicated exam. The visualized intracranial contents demonstrate no evidence of pathologic intracranial enhancement or intracranial mass effect. Visualized orbital contents are unremarkable. The visualized paranasal sinuses are clear. The mastoids and middle ears are clear. Corpectomy changes are noted at C5 and C6 with ACDF changes from C3 through C7. The craniocervical junction is intact. Chest CT: Pathologically enlarged lymphadenopathy is seen in the mediastinum, bilateral enriqueta, and bilateral axillary regions. These are similar in appearance to the pathologically enlarged lymph nodes in the base of the neck, many of which demonstrating central hypoattenuation. The heart size is normal. A moderate pericardial effusion is seen, primarily overlying the right ventricle measuring 1.6 cm in thickness. There is atherosclerotic plaque in the thoracic aorta without evidence of aneurysm or dissection. Pulmonary embolism is seen in the segmental pulmonary artery of the right lower lobe. A smaller burden of pulmonary emboli is seen involving the subsegmental pulmonary arteries of the right upper lobe. Interval increase in size in the solid nodule within the left upper lobe adjacent to the fissure measuring 1.8 x 1.0 cm, previously measuring 0.9 x 0.5 cm. There is relatively stable focal opacity in the superior aspect of the right lower lobe measuring 0.6 x 1.0 cm. A new nodule is seen in the left lung base measuring 2.0 x 1.3 cm. Subsegmental atelectasis is seen in the right lung base. No central endobronchial obstructing lesions are seen. No pleural effusion or pneumothorax. IMPRESSION: 1. Widespread pathologically enlarged lymphadenopathy involving the base of the neck, supraclavicular regions, axilla, mediastinum, and enriqueta. Findings have progressed significantly since the prior exam. Given the suspicious lung nodules, findings are concerning for metastatic lung cancer. 2. New solid nodule in the left lung base measuring 2.0 cm. There has been interval increase in size in a nodule in the left upper lobe measuring 1.8 cm. These would be amenable to CT-guided biopsy if indicated. PET/CT could also be considered. 3. Pulmonary emboli involving the segmental pulmonary artery of the right lower lobe and subsegmental pulmonary arteries of the right upper lobe. 4. Moderate pericardial effusion overlying the right ventricle. A message was left for Dr. Keyes at 12:45 p.m. on 10/19/[address] Den Perez. Dictated by: Dictated on workstation # [id number]
== END ==
LOC: RAD 11:07
PROVIDERS: ATTEND Family Medicine
DX: R59.9 Enlarged lymph nodes, unspecified (principal); I26.99 Other pulmonary embolism without acute cor pulmonale; R91.8 Other nonspecific abnormal finding of lung field; I31.3 Pericardial effusion (noninflammatory)
CPT/HCPCS: 36415; 70491; 71260; 80053; 85025; 85652; 86141

== ENCOUNTER → 2020-10-22 | Outpatient (CLI) | payer MEDICARE ==
[~2020-10-22] MED LIST changes: -HOLD METFORMIN - RECEIVED CONTRAST 20 ML VIAL IV SCH; -IOHEXOL 350 MG/ML 100 ML (OMNIPAQUE 350) VIAL IV ONE; -NS 100 ML (IVPB) BAG IV ONE
[2020-10-22 10:42] LABS: LYMPHOCYTES # (AUTO) 0.7 10^3/uL (1.0-4.0)
[2020-10-22 10:44] LABS: BASOPHILS % (AUTO) 0 % (0-10); EOSINOPHILS # (AUTO) 0.2 10^3/uL (0.0-0.3); EOSINOPHILS % (AUTO) 3 % (0-10); HEMATOCRIT 41 % (40-54); HEMOGLOBIN 13.4 g/dL (13.3-17.7); LYMPHOCYTES % (AUTO) 10 % (12-44); MEAN CORPUSCULAR HEMOGLOBIN 31 pg (25-34); MEAN CORPUSCULAR HGB CONC 33 g/dL (32-36); MEAN CORPUSCULAR VOLUME 94 fL (80-99); MEAN PLATELET VOLUME 11.3 fL (9.0-12.2); MONOCYTES # (AUTO) 0.6 10^3/uL (0.0-1.0); MONOCYTES % (AUTO) 8 % (0-12); NEUTROPHILS # (AUTO) 5.6 10^3/uL (1.8-7.8); NEUTROPHILS % (AUTO) 78 % (42-75); PLATELET COUNT 50 10^3/uL (130-400); WHITE BLOOD COUNT 7.2 10^3/uL (4.3-11.0)
== END ==
LOC: CARD 10:09
PROVIDERS: ATTEND Family Medicine
DX: I31.3 Pericardial effusion (noninflammatory) (principal)
CPT/HCPCS: 36415; 85025; 93306

== ENCOUNTER → 2020-10-23 | Outpatient (CLI) | payer MEDICARE ==
--- NOTE | 2020-10-23 16:10 | Diagnostic Imaging Report ---
INDICATION: Lung mass with supraclavicular lymphadenopathy and neck swelling. TECHNIQUE: Serum blood glucose level at the time of injection is 130 mg/dL. Patient was administered 14.2 mCi F-18 FDG intravenously in the right antecubital location and PET imaging was performed from the top of the skull to mid thighs. Noncontrast CT was also performed for attenuation correction and anatomic correlation. COMPARISON: No prior PET/CT studies are available for comparison. Comparison is made with recent CT neck and chest study from 10/19/2020. FINDINGS: There is symmetric activity throughout the brain. There is hypermetabolic lymphadenopathy in the supraclavicular regions bilaterally. SUV max of the supraclavicular nodes is approximately 6.5. There is hypermetabolic bilateral axillary, mediastinal, and left hilar lymphadenopathy. Right axillary adenopathy demonstrates SUV max of 10.2. Prevascular mediastinal adenopathy shows SUV max of 7.4. Left hilum has SUV max of 11. The area of irregular increased density in the posterior left upper lobe does show some low-level uptake with an SUV max of 3.6. Low-level activity in the superior segment of the right lower lobe is noted. The area of nodularity in the left lower lobe does not show FDG avidity. The patient does have a moderate-sized pericardial effusion. There is physiologic activity throughout the GI and tracts of the abdomen and pelvis. There is a hypermetabolic lymph node in the aortocaval location with an SUV max of 4.4. There are some questionable hypermetabolic nodes adjacent to the second portion of the duodenum as well and inferiorly to this level with an SUV max of 5.4. Lymph nodes in the left iliac chain are hypermetabolic with SUV max of approximately 11. Right obturator node demonstrates and SUV max of 7. There is a right inguinal hypermetabolic node with an SUV max of 6.7. IMPRESSION: 1. Abnormal PET/CT study demonstrating hypermetabolic lymphadenopathy in the supraclavicular regions bilaterally as well as bilateral axillae as well as the mediastinum and left hilum. There is a density in the left upper lobe that also shows some hypermetabolic activity. The area of opacity in the posterior left lower lobe does not demonstrate FDG avidity. There is hypermetabolic lymphadenopathy in the abdomen and pelvis, as described. 2. Moderate pericardial effusion. Dictated by: Dictated on workstation # [id number]
== END ==
LOC: RAD 13:30
PROVIDERS: ATTEND Nurse Practitioner Family
DX: R91.8 Other nonspecific abnormal finding of lung field (principal); I31.3 Pericardial effusion (noninflammatory)
CPT/HCPCS: 78815; A9552

== ENCOUNTER → 2020-11-05 | Day surgery (SDC) | payer MEDICARE ==
[~2020-11-05] VITALS: Ht 172.7 cm; Wt 68.2 kg
[~2020-11-05] MED LIST changes: +ACHD5005 PO; +APIX5TAB PO; +LIDOCAINE 1% INJ 20 ML 20 ML VIAL INJ ONE; +LISI40TA9 PO; +MULT-1102 PO
--- OUTSIDE RECORDS SUMMARY | 2020-11-05 09:31 | XMS REPORT | CCD ---
Author Author Josh Keyes D.O. 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 Name Role Phone Tracie Keyes D.O., PP Unavailable CCM Unavailable Summary Purpose Interface Exchange Insurance Providers Payer name Policy type / Coverage type Covered alliance party ID Effective Begin Date Effective End Date WPS MEDICARE PART B [place] Medicare Part B [id number] Unknown [facility] Medicare Part B [id number] 2019 Un known Family history Sister Diagnosis Age At Onset seizure disorder Unknown Father Diagnosis Age At Onset Diabetes mellitus Type 2 Unknown Mother Diagnosis Age At Onset Diabetes mellitus Type 2 Unknown Social History Social History Element Codes Description Effective Dates Tobacco history SNOMED CT: 64285841 Currently smokes tobacco Marital status Unknown 10/01/2009 Employment Unknown Currently employed [employer] 10/01/2009 Allergies, Adverse Reactions, Alerts Substance Reaction Codes Entered Date Inactivated Date Status * NO KNOWN FOOD ALLERGIES Unknown 10/01/2009 No Inactiv e Date Active * NO KNOWN ENVIRONMENTAL ALLERGIES Unknown 10/01/2009 N o Inactive Date Active * NO KNOWN DRUG ALLERGIES Unknown 10/01/2009 No Inactiv e Date Active Problems Condition Codes Effective Dates Condition Status Pulmonary nodules ICD-10: R91.8 ICD-9: 793.19 04/25/2019 Active Supraclavicular adenopathy ICD-10: R59.0 ICD-9: 785.6 10/19/2020 Active Thrombocytopenia ICD-10: D69.6 ICD-9: 287.5 10/22/2020 Active Lymphadenopathy ICD-10: R59.1 ICD-9: 785.6 10/22/2020 Active Mass of left lung ICD-10: R91.8 ICD-9: 786.6 10/22/2020 Active On anticoagulant therapy ICD-10: Z79.01 ICD-9: V58.61 09/17/2020 Active Other acute pulmonary embolism without acute cor pulmo nale ICD-10: I26.99 ICD-9: 415.19 10/22/2020 Active Pericardial effusion ICD-10: I31.3 ICD-9: 423.9 10/22/2020 Active Difficulty swallowing ICD-10: R13.10 ICD-9: 787.20 04/12/2019 Active Acute deep vein thrombosis (DVT) of femoral vein of ri t lower extremity ICD- 10: I82.411 ICD-9: 453.41 09/14/2020 Active Right leg DVT ICD-10: I82.401 ICD-9: 453.40 09/24/2020 Active Fall down stairs, initial encounter ICD-10: W10.8XXA ICD-9: E880.9 09/12/2020 Active Right leg pain ICD-10: M79.604 ICD-9: 729.5 09/12/2020 Active Right leg swelling ICD-10: M79.89 ICD-9: 729.81 09/12/2020 Active Hyperglycemia, unspecified ICD-10: R73.9 ICD-9: 790.29 01/29/2018 Active Hypertension ICD-10: I10 ICD-9: 401.9 03/09/2014 Active Mixed hyperlipidemia ICD-10: E78.2 ICD-9: 272.2 01/29/2018 Active Encounter for general adult medical examination withou t abnormal findings ICD- 10: Z00.00 ICD-9: V70.0 11/09/2013 Active Cat scratch ICD-10: W55.03XA ICD-9: 919.0 04/25/2019 Active 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 ICD-9: 075 04/25/2019 Active 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 ICD-9: 527.1 04/12/2019 Active Encounter for screening for other viral diseases ICD-1 0: Z11.59 ICD-9: V73.89 01/29/2018 Active Encounter for screening for malignant neoplasm of pros membreno ICD-10: Z12.5 ICD-9: V76.44 05/01/2017 Active Impaired fasting glucose ICD-10: R73.01 ICD-9: 790.21 01/03/2016 Active Mixed hyperlipidemia ICD-10: E78.2 ICD-9: 272.4 11/09/2013 Active URI, ACUTE ICD-10: J06.9 ICD-9: 465.9 04/07/2017 Active Insomnia, unspecified ICD-10: G47.00 ICD-9: 780.52 02/06/2015 Active SINUSITIS, ACUTE ICD-9: 461.9 07/19/2014 Active DYSPEPSIA ICD-9: 536.8 07/06/2014 Active DIZZINESS/VERTIGO ICD-9: 780.4 07/04/2014 Active HYPOTENSION ICD-9: 458.9 07/04/2014 Active MALAISE AND FATIGUE ICD-9: 780.79 07/04/2014 Active ARTHRALGIA-MULTIPLE SITES ICD-9: 719.49 06/14/2014 Active CEPHALGIA ICD-9: 784.0 06/14/2014 Active Uveitis ICD-9: 364.3 06/14/2014 Active HYPERTENSION ICD-9: 401.9 03/09/2014 Active OTHER ABNORMAL GLUCOSE ICD-9: 790.29 01/05/2014 Active FOREIGN BODY FINGER ICD-9: 915.6 11/09/2013 Active HYPERLIPIDEMIA NEC/NOS ICD-9: 272.4 11/09/2013 Active ROUTINE MEDICAL EXAM ICD-9: V70.0 11/09/2013 Active DISTURBANCE OF SKIN SENSATION (Paresthesia) ICD-9: 782.0 03/2012 Active Neck pain on left side ICD-9: 723.1 11/03/2012 Active Tendonitis of elbow, left ICD-9: 727.09 11/03/2012 Active FEBRILE ILLNESS ICD-9: 780.60 02/25/2012 Active Herpes zoster ICD-9: 053.9 02/25/2012 Active Oral lesion ICD-9: 528.9 02/25/2012 Active SPASM OF MUSCLE ICD-9: 728.85 10/08/2011 Active NONVENOM ARTHROPOD BITE ICD-9: E906.4 09/09/2011 Active Hypertension Unknown 10/01/2009 Active [place] spotted fever Unknown 07/24/2009 Act flaco B12 DEFIC ANEMIA NEC ICD-9: 281.1 10/01/2009 Active Hyperuricemia ICD-9: 790.6 10/01/2009 Active Myalgia ICD-9: 729.1 10/01/2009 Active [place] spotted fever ICD-9: 082.0 10/01/2009 Act [place] Medications Medication Codes Instructions Start Date Stop Date Status Fill Instructions hydrocodone 5 mg-acetaminophen 325 mg tablet RxNorm: 240193 1 Tablet(s) Oral Every 6 hours as needed for pain 10/30/2020 11/05/2020 Active hydrocodone 5 mg-acetaminophen 325 mg tablet RxNorm: 616223 1 Tablet(s) Oral Every 6 hours as needed for pain 10/30/2020 10/30/2020 Inactive Eliquis 5 mg tablet RxNorm: 7435910 Take 1 Tablet(s) Oral two ti mes a day 09/19/2020 12/17/2020 Active tramadol 50 mg tablet RxNorm: 987974 Take 1 Tablet(s) O ral Q8H as needed for pain Take with 2 tylenol 09/17/2020 No Stop Date Active Eliquis 5 mg tablet RxNorm: 4722877 Take 2 Tablet(s) Oral two ti mes a day 09/17/2020 No Stop Date Active lisinopril 40 mg tablet RxNorm: 911854 1 Tablet(s) Oral QD repl aces 20mg dose 04/18/2020 10/15/2020 Inactive Men's Multivitamin 400 mcg-20 mcg-300 mcg tablet RxNorm: 1 Tablet(s) Oral QD 04/18/2020 No Stop Date Active lisinopril 20 mg tablet RxNorm: 643463 1 Tablet(s) Oral QD 03/29/19 21 04/17/2020 Inactive Due for his 6 month appointm ent lisinopril 20 mg tablet RxNorm: 777290 TAKE ONE (1) TAB LET BY MOUTH DAILY... Needs fwup 10/03/2019 11/02/2019 Inactive lisinopril 20 mg tablet RxNorm: 062600 TAKE ONE (1) TABLET BY M OUTH DAILY... 10/03/2019 10/02/2019 Inactive Zithromax 500 mg tablet RxNorm: 919437 1 Tablet(s) Oral QD 04/25/19 20 05/02/2019 Inactive [AttnRPh: Saving apply/adjud icate RxGRP:SG20 RxBIN:[id number] RxPCN: ID#:[id number]] lisinopril 20 mg tablet RxNorm: 138067 1 Tablet(s) Oral QD 04/25/1910/02/2019 Inactive nystatin 100,000 unit/mL oral suspension RxNorm: 025279 5 Milliliter(s) Oral four times a day swish, gargle and spit 04/25/2019 05/09/2019 Inactive diltiazem ER (XR/XT) 120 mg capsule,extended release 2 4 hr, controlled RxNorm: 172002 Capsule(s) 1 Capsule(s) PO QD 06/10/2018 10/11/2019 Inactive [SAVINGS FOR UNINSURED PATIENTS -- BIN:973265, PCN: ASPROD1, Group: AME08, ID# [id number], Process claim through [employer], for questions: . THIS IS NOT INSURANCE.] lisinopril 20 mg-hydrochlorothiazide 12.5 mg tablet RxNorm: 992651 1 Tablet(s) PO QAM 06/10/2018 10/11/2019 Inactive [AttnRPh: Saving apply/adjudicate RxGRP:SG20 RxBIN:[id number] RxPCN: ID#:[id number]] lisinopril 20 mg-hydrochlorothiazide 12.5 mg tablet RxNorm: 784369 1 Tablet(s) PO QAM 05/06/2017 01/30/2018 Inactive [AttnRPh: Saving apply/adjudicate RxGRP:SG20 RxBIN:[id number] RxPCN: ID#:[id number]] diltiazem ER (XR/XT) 120 mg capsule,extended release 2 4 hr, controlled RxNorm: 700914 Capsule(s) 1 Capsule(s) PO QD 05/06/2017 01/30/2018 Inactive [SAVINGS FOR UNINSURED PATIENTS -- BIN:009746, PCN: ASPROD1, Group: AME08, ID# [id number], Process claim through [employer], for questions: . THIS IS NOT INSURANCE.] diltiazem ER (XR/XT) 120 mg capsule,extended release 2 4 hr, controlled RxNorm: 982595 Capsule(s) 1 Capsule(s) PO QD 09/16/2016 03/14/2017 Inactive [SAVINGS FOR UNINSURED PATIENTS -- BIN:866763, PCN: ASPROD1, Group: AMHo, ID# [id number], Process claim through [employer], for questions: . THIS IS NOT INSURANCE.] lisinopril 20 mg-hydrochlorothiazide 12.5 mg tablet RxNorm: 423555 1 Tablet(s) PO QAM 09/16/2016 03/14/2017 Inactive [AttnRPh: Saving apply/adjudicate RxGRP:SG20 RxBIN:[id number] RxPCN: ID#:[id number]] diltiazem ER (XR/XT) 120 mg capsule,extended release,control led RxNorm: 975155 1 Capsule(s) PO QD 04/09/2016 10/11/2019 Inactive [SAVINGS FOR UN INSURED PATIENTS -- BIN:333960, PCN: ASPROD1, Group: [id number], ID# [id number], Process claim through [employer], for questions: . THIS IS NOT INSURANCE.] diltiazem ER (XR/XT) 120 mg capsule,extended release,control led RxNorm: 777112 1 Capsule(s) PO QD 04/09/2016 09/15/2016 Inactive [SAVINGS FOR UN INSURED PATIENTS -- BIN:449136, PCN: ASPROD1, Group: AME08, ID# [id number], Process claim through [employer], for questions: . THIS IS NOT INSURANCE.] lisinopril 20 mg-hydrochlorothiazide 12.5 mg tablet RxNorm: 658131 1 Tablet(s) PO QAM 12/10/2015 06/06/2016 Inactive [AttnRPh: Saving apply/adjudicate RxGRP:SG20 RxBIN:[id number] RxPCN: ID#:[id number]] diltiazem ER (XR/XT) 120 mg capsule,extended release,control led RxNorm: 289941 1 Capsule(s) PO QD 02/07/2015 02/01/2016 Inactive [SAVINGS FOR UN INSURED PATIENTS -- BIN:069139, PCN: ASPROD1, Group: AME08, ID# [id number], Process claim through [employer], for questions: . THIS IS NOT INSURANCE.] lisinopril 20 mg-hydrochlorothiazide 12.5 mg tablet RxNorm: 226524 1 Tablet(s) PO QAM 02/07/2015 12/09/2015 Inactive [AttnRPh: Saving apply/adjudicate RxGRP:SG20 RxBIN:[id number] RxPCN: ID#:[id number]] metformin ER 1,000 mg 24 hr tablet,extended release RxNorm: 817995 1 Tablet(s) PO QD 02/07/2015 07/19/2015 Inactive [SAVINGS FOR UNI NSURED PATIENTS -- BIN:648728, PCN: KIM1, Group: AME08, ID# [id number], Process claim through [employer], for questions: . THIS IS NOT INSURANCE.] diltiazem ER (XR/XT) 120 mg capsule,extended release,control led RxNorm: 488355 1 Capsule(s) PO QD 12/28/2014 02/06/2015 Inactive [SAVINGS FOR UN INSURED PATIENTS -- BIN:350369, PCN: ASPJAVAN1, Group: AME08, ID# [id number], Process claim through [employer], for questions: . THIS IS NOT INSURANCE.] lisinopril 20 mg-hydrochlorothiazide 12.5 mg tablet RxNorm: 765191 1 Tablet(s) PO QAM 11/20/2014 10/11/2019 Inactive cefdinir 300 mg capsule RxNorm: 130089 2 Capsule(s) PO QD 07/19/2014 07/28/2014 Inactive [SAVINGS FOR NON-COVERED DRUGS -- BIN: 3585, PCN: ASPROD1, Group: XXXXX, ID# [id number], Questions: . THIS IS NOT INSURANCE.] meclizine 25 mg tablet RxNorm: 835304 1 Tablet(s) PO QHS 07/04/2014 0 10/31/2014 Inactive [SAVINGS FOR NON-COVERED DRUGS -- BIN:00 3585, PCN: ASPROD1, Group: XXXXX, ID# [id number], Questions: . THIS IS NOT INSURANCE.] allopurinol 300 mg tablet RxNorm: 814412 1 Tablet(s) PO QD 06/17/19 15 06/15/2014 Inactive allopurinol 300 mg tablet RxNorm: 939521 1 Tablet(s) PO QD 06/17/19 15 02/06/2015 Inactive [SAVINGS FOR NON-COVERED TATYANA GS -- BIN:587435, PCN: ASPROD1, Group: XXXXX, ID# [id number], Questions: . THIS IS NOT INSURANCE.] naproxen 500 mg tablet RxNorm: 626392 1 Tablet(s) PO BID 06/16/2014 0 07/19/2015 Inactive [SAVINGS FOR NON-COVERED DRUGS -- BIN:00 3585, PCN: ASPROD1, Group: XXXXX, ID# [id number], Questions: . THIS IS NOT INSURANCE.] metformin ER 1,000 mg 24 hr tablet,extended release RxNorm: 623094 1 Tablet(s) PO QD 03/14/2014 02/06/2015 Inactive [SAVINGS FOR UNI NSURED PATIENTS -- BIN:925085, PCN: ASPROD1, Group: AME08, ID# [id number], Process claim through [employer], for questions: . THIS IS NOT INSURANCE.] metformin ER 500 mg tablet,extended release 24hr RxNorm: 860 975 1 Tablet(s) PO QD 01/05/2014 03/13/2014 Inactive [SAVINGS FOR UNI NSURED PATIENTS -- BIN:705809, PCN: ASPROD1, Group: AME08, ID# [id number], Process claim through [employer], for questions: . THIS IS NOT INSURANCE.] metformin ER 500 mg tablet,extended release 24hr RxNorm: 860 975 1 Tablet(s) PO QD 11/28/2013 01/04/2014 Inactive [SAVINGS FOR UNI NSURED PATIENTS -- BIN:470990, PCN: ASPROD1, Group: AME08, ID# [id number], Process claim through [employer], for questions: . THIS IS NOT INSURANCE.] Keflex 500 mg capsule RxNorm: 362772 1 Capsule(s) PO TID 11/09/2013 0 11/15/2013 Inactive [SAVINGS FOR UNINSURED PATIENTS -- BIN:0 31159, PCN: ASPROD1, Group: AME08, ID# [id number], Process claim through [employer], for questions: . THIS IS NOT INSURANCE.] diltiazem ER (XR/XT) 120 mg capsule,extended release,control led RxNorm: 856279 1 Capsule(s) PO QD 11/09/2013 11/03/2014 Inactive [SAVINGS FOR UN INSURED PATIENTS -- BIN:044432, PCN: ASPROD1, Group: AME08, ID# [id number], Process claim through [employer], for questions: . THIS IS NOT INSURANCE.] lisinopril 20 mg-hydrochlorothiazide 12.5 mg tablet RxNorm: 626143 2 Tablet(s) PO QAM 11/09/2013 11/20/2014 Inactive [AttnRPh: Saving apply/adjudicate RxGRP:SG20 RxBIN:[id number] RxPCN: ID#:[id number]] diltiazem ER (XR/XT) 120 mg capsule,extended release,control led RxNorm: 471981 1 Capsule(s) PO QD -need labs 10/31/2013 11/08/2013 Inactive [DELICIA INGS FOR UNINSURED PATIENTS -- BIN:765676, PCN: ASPROD1, Group: AME08, ID# [id number], Process claim through [employer], for questions: . THIS IS NOT INSURANCE.] lisinopril 20 mg-hydrochlorothiazide 12.5 mg tablet RxNorm: 656928 2 Tablet(s) PO QAM 10/31/2013 11/08/2013 Inactive [AttnRPh: Saving apply/adjudicate RxGRP:SG20 RxBIN:[id number] RxPCN: ID#:[id number]] diltiazem ER (XR/XT) 120 mg capsule,extended release,control led RxNorm: 951766 1 Capsule(s) PO QD -need labs 09/12/2013 10/11/2013 Inactive [DELICIA INGS FOR UNINSURED PATIENTS -- BIN:085790, PCN: ASPROD1, Group: TRAN, ID# [id number], Process claim through [employer], for questions: . THIS IS NOT INSURANCE.] Omnicef 300 mg capsule RxNorm: 185983 2 Capsule(s) PO QD 11/24/2012 0 11/08/2013 Inactive naproxen 500 mg tablet RxNorm: 030056 1 Tablet(s) PO TID 11/04/2012 0 11/03/2012 Inactive allopurinol 100 mg tablet RxNorm: 062670 1 Tablet(s) PO BID 013 11/08/2013 Inactive naproxen 500 mg tablet RxNorm: 087353 1 Tablet(s) PO TID 11/04/2012 0 11/08/2013 Inactive diltiazem ER (XR/XT) 120 mg capsule,extended release,control led RxNorm: 135567 1 Capsule(s) PO QD 08/02/2012 09/12/2013 Inactive lisinopril 20 mg-hydrochlorothiazide 12.5 mg tablet RxNorm: 201877 2 Tablet(s) PO QAM 08/02/2012 07/27/2013 Inactive acyclovir 800 mg tablet RxNorm: 459028 1 Tablet(s) PO D Take 1 tablet by mouth 5 times daily 02/26/2012 11/02/2012 Inactive acyclovir 800 mg tablet RxNorm: 102504 1 Tablet(s) PO D 02/25/2012 Inactive clindamycin 300 mg capsule RxNorm: 745848 1 Capsule(s) PO TID 02/2403/02/2012 Inactive lisinopril-hydrochlorothiazide 20 mg-12.5 mg tablet RxNorm: 675353 2 Tablet(s) PO QAM 01/30/2012 08/01/2012 Inactive diltiazem ER (XR/XT) 120 mg capsule,extended release,control led RxNorm: 714333 1 Capsule(s) PO QD 01/30/2012 08/01/2012 Inactive lisinopril-hydrochlorothiazide 20 mg-12.5 mg tablet RxNorm: 920670 2 Tablet(s) PO QAM 01/30/2012 10/11/2019 Inactive diltiazem ER (XR/XT) 120 mg capsule,extended release,control led RxNorm: 139383 1 Capsule(s) PO QD 01/30/2012 10/11/2019 Inactive Culturelle 10 billion cell capsule RxNorm: 698521 1 Capsule(s) PO Q D 10/16/2011 02/24/2012 Inactive Omnicef 300 mg capsule RxNorm: 502172 2 Capsule(s) PO QD 09/24/2011 0 11/02/2012 Inactive diltiazem ER (XR/XT) 120 mg capsule,extended release,control led RxNorm: 056186 1 Capsule(s) PO QD 09/09/2011 01/29/2012 Inactive Culturelle 10 billion cell Cap RxNorm: 667633 1 Capsule (s) PO BID take a few hours after Doxycycline. Probiotic 09/09/2011 09/28/2011 Inactive lisinopril-hydrochlorothiazide 20 mg-12.5 mg tablet RxNorm: 984343 2 Tablet(s) PO QAM 09/09/2011 01/29/2012 Inactive doxycycline hyclate 100 mg Tab RxNorm: 3322199 1 Tablet( s) PO BID antibiotic. (may make a little sensitive to sunburn) 09/09/2011 09/18/2011 Inactiv e lisinopril-hydrochlorothiazide 20 mg-12.5 mg Tab RxNorm: 197 886 2 Tablet(s) PO QAM Due for yearly check-up 09/08/2011 09/08/2011 Inactive diltiazem ER (XR/XT) 120 mg Continuous Release Cap RxNorm: 8 36048 1 Capsule(s) PO QD Due for yearly check-up. 09/08/2011 09/08/2011 Inactive diltiazem ER (XR/XT) 120 mg Continuous Release Cap RxNorm: 8 32988 1 Capsule(s) PO QD 08/29/2010 08/23/2011 Inactive lisinopril-hydrochlorothiazide 20 mg-12.5 mg Tab RxNorm: 197 886 2 Tablet(s) PO QAM 08/29/2010 08/23/2011 Inactive lisinopril-hydrochlorothiazide 20 mg-25 mg Tab RxNorm: 936177 1 Tablet(s) PO QD 08/21/2010 08/28/2010 Inactive allopurinol 100 mg tablet RxNorm: 431376 1 Tablet(s) PO QD 04/22/1908/28/2010 Inactive allopurinol 100 mg Tab RxNorm: 268445 1 Tablet(s) PO QD 12/18/2009 Inactive Allopurinol 100 mg Tab RxNorm: 996724 1 Tablet(s) PO QD 12/12/2009 Inactive Allopurinol 100 mg Tab RxNorm: 073261 1 Tablet(s) PO QD 10/30/2009 Inactive Omnicef 300 mg Cap RxNorm: 013295 2 Capsule(s) PO QD 10/01/200910/29 Inactive Allopurinol 100 mg Tab RxNorm: 516522 1 Tablet(s) PO QD 10/01/2009 Inactive Vitamin D3 oral RxNorm: 2418 oral 04/18/2020 Active Vitamin C oral RxNorm: 1151 oral 04/18/2020 Active Vitamin B12 1000mcg Tablet RxNorm: 1 Tablet(s) PO QD 08/29/2010 Inactive lisinopril 20 mg-hydrochlorothiazide 12.5 mg tablet RxNorm: 852968 1 Tablet(s) PO QAM 11/20/2014 11/19/2014 Inactive Medrol (Sid) 4 mg tablets in a dose pack RxNorm: 553032 Tablet(s) PO as directed 11/09/2013 11/08/2013 Inactive Omnicef 300 mg Cap RxNorm: 077189 2 Capsule(s) PO QD 09/24/201112/11 Inactive Fish Oil 1,000 mg Cap RxNorm: 1 Capsule(s) PO QD 11/09/20132013 Inactive diltiazem ER (XR/XT) 120 mg Continuous Release Cap RxNorm: 8 71915 1 Capsule(s) PO QD 08/29/2010 08/28/2010 Inactive Culturelle 10 billion cell capsule RxNorm: 538354 1 Capsule(s) PO Q D 11/03/2012 11/02/2012 Inactive metformin ER 500 mg tablet,extended release 24hr RxNorm: 860 975 1 Tablet(s) PO QD 11/28/2013 11/27/2013 Inactive Lisinopril Oral RxNorm: Oral 10/01/2009 10/01/2009 Inactive Vitamin B12 1000mcg Tablet RxNorm: 1 Tablet(s) PO QD 12/18/2015 Inactive Vitamin B12 1000mcg Tablet RxNorm: 1 Tablet(s) PO QD 11/09/2013 Inactive lisinopril-hydrochlorothiazide 20 mg-25 mg Tab RxNorm: 653745 1 Tablet(s) PO QD 08/21/2010 2010 Inactive metformin ER 1,000 mg 24 hr tablet,extended release RxNorm: 352340 1 Tablet(s) PO QD 03/14/2014 03/13/2014 Inactive Fish Oil 1,000 mg capsule RxNorm: 1 Capsule(s) PO QD 12/18/2015 Inactive Medication Administered No Medication Administered data Immunizations Vaccine Codes Date Status B12 Unknown 09/24/2011 Results Observation Observation Code Item Item Code Result Date S ervice Location GLYCOSYLATED HEMOGLOBIN TEST 50675 Hgb A1c 33729-0 5.7 % 0 04/18/2020 Unknown GFR CALC 3560006 GFR Afr Amr >60 mL/min 04/18/2020 Unknow n GFR CALC 4732362 GFR Non Afr Amr >60 mL/min 04/18/2020 Un known COMPREHENSIVE METABOLIC 92782 AST 35 U/L 2020 Unknown COMPREHENSIVE METABOLIC 30580 ALT 45 U/L 2020 Unknown COMPREHENSIVE METABOLIC 65137 BUN 10 mg/dL 2020 Unknown COMPREHENSIVE METABOLIC 95832 ALBUMIN 4.3 g/dL 2020 Unknown COMPREHENSIVE METABOLIC 21431 CHLORIDE 101 mmol/L 04/18 Unknown COMPREHENSIVE METABOLIC 45088 Bili Total 0.8 mg/dL 04/18 Unknown COMPREHENSIVE METABOLIC 44426 ALK PHOS 73 U/L 2020 Unknown COMPREHENSIVE METABOLIC 00395 SODIUM 137 mmol/L 04/18 Unknown COMPREHENSIVE METABOLIC 91810 CREATININE 0.99 mg/dL 03/27 Unknown COMPREHENSIVE METABOLIC 32063 CALCIUM 9.1 mg/dL 2020 Unknown COMPREHENSIVE METABOLIC 63271 POTASSIUM 4.3 mmol/L 04/18 Unknown COMPREHENSIVE METABOLIC 48836 Total Protein 7.0 g/dL Unknown COMPREHENSIVE METABOLIC 06753 Glucose 133 mg/dL 2020 Unknown COMPREHENSIVE METABOLIC 95973 Bicarbonate 26 mmol/L 03/27 Unknown COMPREHENSIVE METABOLIC 20390 AGAP 10 mmol/L 2020 Unknown MEAN GLUC 1114433 Calc Mean Gluc 117 mg/dL 04/18/2020 Unkn own [facility] 21702 Cholesterol 187 mg/dL 04/18/2020 Unkno wn [facility] 29275 Triglyceride 87 mg/dL 04/18/2020 Unkn own [facility] 98672 HDL CHOLESTEROL 59 mg/dL 04/18/2020 U nknown [facility] 67791 Chol/HDL Ratio 3.17 ratio 04/18/2020 U nknown [facility] 44014 NON-HDL Chol 128 mg/dL 04/18/2020 Unkn own [facility] 83377 LDL Cholesterol 111 mg/dL 04/18/2020 U nknown HEPATITIS C ANTIBODY 56326 Hepatitis C Ab Non-Reactive 02/01/2018 Unknown GLYCOSYLATED HEMOGLOBIN TEST 95575 Hgb A1c 75810-8 6.2 % 1 04/01/2017 Unknown GFR CALC 4058707 GFR Non Afr Amr >60 mL/min 01/29/2018 Un known GFR CALC 9949769 GFR Afr Amr >60 mL/min 01/29/2018 Unknow n COMPREHENSIVE METABOLIC 45974 AST 17 U/L 2017 Unknown COMPREHENSIVE METABOLIC 27008 ALT 17 U/L 2017 Unknown COMPREHENSIVE METABOLIC 38520 BUN 12 mg/dL 2017 Unknown COMPREHENSIVE METABOLIC 76701 ALBUMIN 4.6 g/dL 2017 Unknown COMPREHENSIVE METABOLIC 60645 CHLORIDE 101 mmol/L 01/29 Unknown COMPREHENSIVE METABOLIC 03949 Bili Total 0.9 mg/dL 01/29 Unknown COMPREHENSIVE METABOLIC 03330 ALK PHOS 57 U/L 2017 Unknown COMPREHENSIVE METABOLIC 28520 SODIUM 136 mmol/L 01/29 Unknown COMPREHENSIVE METABOLIC 95462 CREATININE 1.00 mg/dL 08/2017 Unknown COMPREHENSIVE METABOLIC 00765 CALCIUM 9.6 mg/dL 2017 Unknown COMPREHENSIVE METABOLIC 35284 POTASSIUM 4.2 mmol/L 01/29 Unknown COMPREHENSIVE METABOLIC 12551 Total Protein 6.9 g/dL Unknown COMPREHENSIVE METABOLIC 22729 Glucose 128 mg/dL 2017 Unknown COMPREHENSIVE METABOLIC 44076 Bicarbonate 27 mmol/L 08/2017 Unknown COMPREHENSIVE METABOLIC 28804 AGAP 8 mmol/L 2017 Unknown [facility] 51868 Cholesterol 168 mg/dL 01/29/2018 Unkno wn [facility] 26376 Triglyceride 82 mg/dL 01/29/2018 Unkn own [facility] 75022 HDL CHOLESTEROL 43 mg/dL 01/29/2018 U nknown L[facility] GROUP 67899 Chol/HDL Ratio 3.91 ratio 01/29/2018 U nknown [facility] 39671 NON-HDL Chol 125 mg/dL 01/29/2018 Unkn own [facility] 19963 LDL Cholesterol 109 mg/dL 01/29/2018 U nknown MEAN GLUC 7290424 Calc Mean Gluc 131 mg/dL 01/29/2018 Unkn own [facility] 27089 Cholesterol 164 mg/dL 05/01/2017 Unkno wn [facility] 87634 Triglyceride 131 mg/dL 05/01/2017 Unkn own [facility] 67937 HDL CHOLESTEROL 45 mg/dL 05/01/2017 U nknown L[facility] GROUP 70596 Chol/HDL Ratio 3.64 ratio 05/01/2017 U nknown LIP[facility] GROUP 57546 NON-HDL Chol 119 mg/dL 05/01/2017 Unkn own [facility] 90328 LDL Cholesterol 93 mg/dL 05/01/2017 U nknown COMPLETE BLOOD COUNT 3061800 WBC 4.9 10e9/L 05/02/19 18 Unknown COMPLETE BLOOD COUNT 8288535 RBC 4.31 10e12/L 2017 Unknown COMPLETE BLOOD COUNT 5884956 HEMOGLOBIN 14.3 g/dL 05/02/19 18 Unknown COMPLETE BLOOD COUNT 3933064 HEMATOCRIT 42.8 % 05/02/19 18 Unknown COMPLETE BLOOD COUNT 7125601 MCV 99.3 fL 8 Unknown COMPLETE BLOOD COUNT 1166371 MCH 33.2 pg 8 Unknown COMPLETE BLOOD COUNT 2995667 MCHC 33.4 g/dL 8 Unknown COMPLETE BLOOD COUNT 1769187 PLATELET COUNT 241 10e9/L 10/2017 Unknown COMPLETE BLOOD COUNT 9161521 Mean Plt Volume 11.0 fL 10/2017 Unknown COMPLETE BLOOD COUNT 8376399 Neut Auto 56.6 % 8 Unknown COMPLETE BLOOD COUNT 2229608 Lymph Auto 24.7 % 05/02/19 18 Unknown COMPLETE BLOOD COUNT 4478984 [place] Auto 11.6 % 8 Unknown COMPLETE BLOOD COUNT 4805248 RDW 13.2 % 8 Unknown COMPLETE BLOOD COUNT 6872980 Eos Auto 6.9 % 8 Unknown COMPLETE BLOOD COUNT 9996049 Baso Auto 0.2 % 8 Unknown COMPLETE BLOOD COUNT [id number] Neutrophil Abs 2.77 10e9/L Unknown COMPLETE BLOOD COUNT [id number] Lymphocyte Abs 1.21 10e9/L Unknown COMPLETE BLOOD COUNT [id number] Monocyte Abs 0.57 10e9/L 10/2017 Unknown COMPLETE BLOOD COUNT [id number] Eosinophil Abs 0.34 10e9/L Unknown COMPLETE BLOOD COUNT [id number] RDW-SD 47.2 fL 8 Unknown COMPLETE BLOOD COUNT [id number] Basophil Abs 0.01 10e9/L 10/2017 Unknown GLYCOSYLATED HEMOGLOBIN TEST 24876 Hgb A1c 83934-9 6.0 % 0 05/01/2017 Unknown GFR CALC [id number] GFR Non Afr Amr >60 mL/min 05/01/2017 Un known GFR CALC [id number] GFR Afr Amr >60 mL/min 05/01/2017 Unknow n MEAN GLUC [id number] Calc Mean Gluc 126 mg/dL 05/01/2017 Unkn own COMPREHENSIVE METABOLIC 89271 AST 17 U/L 2017 Unknown COMPREHENSIVE METABOLIC 39880 ALT 16 U/L 2017 Unknown COMPREHENSIVE METABOLIC 26104 BUN 13 mg/dL 2017 Unknown COMPREHENSIVE METABOLIC 99745 ALBUMIN 3.9 g/dL 2017 Unknown COMPREHENSIVE METABOLIC 05070 CHLORIDE 104 mmol/L 05/01 Unknown COMPREHENSIVE METABOLIC 70341 Bili Total 0.7 mg/dL 05/01 Unknown COMPREHENSIVE METABOLIC 21806 ALK PHOS 58 U/L 2017 Unknown COMPREHENSIVE METABOLIC 58339 SODIUM 139 mmol/L 05/01 Unknown COMPREHENSIVE METABOLIC 98193 CREATININE 0.99 mg/dL 10/2017 Unknown COMPREHENSIVE METABOLIC 02192 CALCIUM 9.5 mg/dL 2017 Unknown COMPREHENSIVE METABOLIC 40724 POTASSIUM 4.3 mmol/L 05/01 Unknown COMPREHENSIVE METABOLIC 31205 Total Protein 6.7 g/dL Unknown COMPREHENSIVE METABOLIC 83407 Glucose 110 mg/dL 2017 Unknown COMPREHENSIVE METABOLIC 82640 Bicarbonate 27 mmol/L 10/2017 Unknown COMPREHENSIVE METABOLIC 35568 AGAP 8 mmol/L 2017 Unknown PSA EQUIMOLAR NITHIN 98641 PSA Total 1.10 ng/mL 8 Unknown THYROID STIMULATING HORMONE 73026 TSH 0.673 uIU/mL 05/01/2017 Unknown GLYCOSYLATED HEMOGLOBIN TEST 33123 Hgb A1c 99049-9 5.8 % 1 03/08/2015 Unknown MEAN GLUC [id number] Calc Mean Gluc 120 mg/dL 01/07/2016 Unkn own FREE T4 82700 T4 Free 1.13 ng/dL 01/04/2016 Unknown THYROID STIMULATING HORMONE 02064 TSH 0.875 uIU/mL 01/04/2016 Unknown COMPREHENSIVE METABOLIC 00509 AST 20 U/L 2015 Unknown COMPREHENSIVE METABOLIC 37204 ALT 20 U/L 2015 Unknown COMPREHENSIVE METABOLIC 46883 BUN 14 mg/dL 2015 Unknown COMPREHENSIVE METABOLIC 28688 ALBUMIN 4.4 g/dL 2015 Unknown COMPREHENSIVE METABOLIC 34844 CHLORIDE 103 mmol/L 01/03 Unknown COMPREHENSIVE METABOLIC 86133 Bili Total 0.5 mg/dL 01/03 Unknown COMPREHENSIVE METABOLIC 40156 ALK PHOS 53 U/L 2015 Unknown COMPREHENSIVE METABOLIC 45789 SODIUM 137 mmol/L 01/03 Unknown COMPREHENSIVE METABOLIC 97810 CREATININE 0.98 mg/dL 12/24 Unknown COMPREHENSIVE METABOLIC 18138 CALCIUM 9.6 mg/dL 2015 Unknown COMPREHENSIVE METABOLIC 18383 POTASSIUM 4.5 mmol/L 01/03 Unknown COMPREHENSIVE METABOLIC 75388 Total Protein 7.0 g/dL Unknown COMPREHENSIVE METABOLIC 76235 Glucose 117 mg/dL 2015 Unknown COMPREHENSIVE METABOLIC 10224 Bicarbonate 26 mmol/L 12/24 Unknown COMPREHENSIVE METABOLIC 29663 AGAP 8 mmol/L 2015 Unknown COMPLETE BLOOD COUNT 2628468 WBC 6.2 10e9/L 01/04/20 16 Unknown COMPLETE BLOOD COUNT 4175840 RBC 4.55 10e12/L 2015 Unknown COMPLETE BLOOD COUNT 9884351 HEMOGLOBIN 15.0 g/dL 01/04/20 16 Unknown COMPLETE BLOOD COUNT 8177462 HEMATOCRIT 43.8 % 01/04/20 16 Unknown COMPLETE BLOOD COUNT 9463465 MCV 96.3 fL 6 Unknown COMPLETE BLOOD COUNT 4694579 MCH 33.0 pg 6 Unknown COMPLETE BLOOD COUNT 2594325 MCHC 34.2 g/dL 6 Unknown COMPLETE BLOOD COUNT 9065199 PLATELET COUNT 259 10e9/L 12/2015 Unknown COMPLETE BLOOD COUNT 7903530 Mean Plt Volume 10.8 fL 12/2015 Unknown COMPLETE BLOOD COUNT 2243916 Neut Auto 62.4 % 6 Unknown COMPLETE BLOOD COUNT 2259942 Lymph Auto 25.9 % 01/04/20 16 Unknown COMPLETE BLOOD COUNT 6166572 [place] Auto 6.8 % 6 Unknown COMPLETE BLOOD COUNT 2961693 RDW 13.4 % 6 Unknown COMPLETE BLOOD COUNT 5001363 Eos Auto 4.9 % 6 Unknown COMPLETE BLOOD COUNT 2303630 Baso Auto 0.0 % 6 Unknown COMPLETE BLOOD COUNT 6325369 Neutrophil Abs 3.87 10e9/L Unknown COMPLETE BLOOD COUNT 7557586 Lymphocyte Abs 1.61 10e9/L Unknown COMPLETE BLOOD COUNT 2167116 Monocyte Abs 0.42 10e9/L 12/24 Unknown COMPLETE BLOOD COUNT 5349144 Eosinophil Abs 0.30 10e9/L Unknown COMPLETE BLOOD COUNT 3417643 RDW-SD 46.2 fL 6 Unknown COMPLETE BLOOD COUNT 1297556 Basophil Abs 0.00 10e9/L 12/24 Unknown PSA EQUIMOLAR NITHIN 18201 PSA Total 1.14 ng/mL 6 Unknown GFR CALC 0816159 GFR Non Afr Amr >60 mL/min 01/04/2016 Un known GFR CALC 8235519 GFR Afr Amr >60 mL/min 01/04/2016 Unknow n LIPID GROUP 85061 Cholesterol 172 mg/dL 01/04/2016 Unkno wn LIPID GROUP 19873 Triglyceride 156 mg/dL 01/04/2016 Unkn own LIPID GROUP 58788 HDL CHOLESTEROL 42 mg/dL 01/04/2016 U nknown LIPID GROUP 99489 Chol/HDL Ratio 4.10 ratio 01/04/2016 U nknown LIPID GROUP 06106 NON-HDL Chol 130 mg/dL 01/04/2016 Unkn own LIPID GROUP 91281 LDL Cholesterol 99 mg/dL 01/04/2016 U nknown GLYCOSYLATED HEMOGLOBIN TEST 73633 A1C HPLC 70225-4 5.8 % 1 04/10/2014 Unknown COMPLETE BLOOD COUNT 7154493 WBC 6.0 10e9/L 02/03/20 15 Unknown COMPLETE BLOOD COUNT 1106911 RBC 4.39 10e12/L 2014 Unknown COMPLETE BLOOD COUNT 1991708 HGB 14.3 g/dL 5 Unknown COMPLETE BLOOD COUNT 6297070 HCT DET 41.7 % 5 Unknown COMPLETE BLOOD COUNT 8387632 MCV 95.0 fL 5 Unknown COMPLETE BLOOD COUNT 8128518 MCH 32.6 pg 5 Unknown COMPLETE BLOOD COUNT 9440561 MCHC 34.3 g/dL 5 Unknown COMPLETE BLOOD COUNT 6221514 PLT 272 10e9/L 02/03/20 15 Unknown COMPLETE BLOOD COUNT 7473835 MPV 11.1 fL 5 Unknown COMPLETE BLOOD COUNT 5252904 GARY % 62.7 % 5 Unknown COMPLETE BLOOD COUNT 0124968 LY % 25.2 % 5 Unknown COMPLETE BLOOD COUNT 5812581 MON % 7.9 % 5 Unknown COMPLETE BLOOD COUNT 9524265 EOS % 4.0 % 5 Unknown COMPLETE BLOOD COUNT 9428952 BASO % 0.2 % 5 Unknown COMPLETE BLOOD COUNT 6763863 RDW 13.2 % 5 Unknown COMPLETE BLOOD COUNT 1767670 ABS GARY 3.76 10e9/L 015 Unknown COMPLETE BLOOD COUNT 3460284 ABS LYMPH 1.51 10e9/L 015 Unknown COMPLETE BLOOD COUNT 8897858 ABS MONO 0.47 10e9/L 015 Unknown COMPLETE BLOOD COUNT 0806601 ABS EOS 0.24 10e9/L 015 Unknown COMPLETE BLOOD COUNT 5553951 ABS BASO 0.01 10e9/L 015 Unknown COMPLETE BLOOD COUNT 6109985 RDW-SD 44.7 fL 5 Unknown GFR CALC 1227005 GFR AA >60 ML/MIN 02/02/2015 Unknown GFR CALC 7652477 GFR NON-AA >60 ML/MIN 02/02/2015 Unknown THYROID STIMULATING HORMONE 40167 TSH 0.970 uIU/ML 02/02/2015 Unknown LIPID GROUP 09099 HDL TEST 41 MG/DL 02/02/2015 Unknown LIPID GROUP 75711 TRIG 151 MG/DL 02/02/2015 Unknown LIPID GROUP 49122 TEST LDL 122 MG/DL 02/02/2015 Unknown LIPID GROUP 45345 CHOL 193 MG/DL 02/02/2015 Unknown LIPID GROUP 14853 RCHOL/HDL 4.71 RATIO 02/02/2015 Unknow n LIPID GROUP 44344 NON-HDL CH 152 MG/DL 02/02/2015 Unknow n PSA EQUIMOLAR NITHIN 81730 PSA EQ 0.76 NG/ML 5 Unknown FREE T4 57730 FREE T4 0.93 NG/DL 02/02/2015 Unknown COMPREHENSIVE METABOLIC 72438 AST 21 U/L 2014 Unknown COMPREHENSIVE METABOLIC 81374 ALT 21 IU/L 2014 Unknown COMPREHENSIVE METABOLIC 25935 BUN 15 MG/DL 2014 Unknown COMPREHENSIVE METABOLIC 94410 ALBUMIN 4.5 GM/DL 2014 Unknown COMPREHENSIVE METABOLIC 98973 CHLORIDE 104 MMOL/L 02/02 Unknown COMPREHENSIVE METABOLIC 38087 BILI TOT 1.0 MG/DL 2014 Unknown COMPREHENSIVE METABOLIC 62972 ALK PHOS 71 U/L 2014 Unknown COMPREHENSIVE METABOLIC 25274 SODIUM 136 MMOL/L 02/02 Unknown COMPREHENSIVE METABOLIC 58924 CREATININE 0.94 MG/DL 01/23 Unknown COMPREHENSIVE METABOLIC 98988 CALCIUM 9.8 MG/DL 2014 Unknown COMPREHENSIVE METABOLIC 62377 POTASSIUM 4.3 MMOL/L 02/02 Unknown COMPREHENSIVE METABOLIC 18864 PROT TOT 6.9 GM/DL 2014 Unknown COMPREHENSIVE METABOLIC 65990 Glucose 113 MG/DL 2014 Unknown COMPREHENSIVE METABOLIC 40619 BICARB 26 MMOL/L 2014 Unknown COMPREHENSIVE METABOLIC 89378 ANION GAP 6 MEQ/L 2014 Unknown ANTI STREPTOLYSIN O TITER(ASO) 00319 ASO 57 IU/ML 06/19/2014 Unknown RA FACTOR 53073 RA FACTOR <20.0 IU/ML 06/15/2014 Unknown FREE T4 33038 FREE T4 1.19 NG/DL 06/15/2014 Unknown ANTINUCLEAR ANTIBODY SCREEN 01711 SHANNON SCR <1:80 Unknown ERYTHROCYTE SEDIMENTATION RATE 89705 ESR 2 MM/HR 06/14/2014 Unknown COMPLETE BLOOD COUNT 1474872 WBC 6.7 10e9/L 06/15/19 15 Unknown COMPLETE BLOOD COUNT 6621058 RBC 4.86 10e12/L 2014 Unknown COMPLETE BLOOD COUNT 8270786 HGB 15.9 g/dL 5 Unknown COMPLETE BLOOD COUNT 5054040 HCT DET 45.0 % 5 Unknown COMPLETE BLOOD COUNT 8558425 MCV 92.6 fL 5 Unknown COMPLETE BLOOD COUNT 6374354 MCH 32.7 pg 5 Unknown COMPLETE BLOOD COUNT 7725375 MCHC 35.3 g/dL 5 Unknown COMPLETE BLOOD COUNT 6713111 PLT 299 10e9/L 06/15/19 15 Unknown COMPLETE BLOOD COUNT 5412723 MPV 10.0 fL 5 Unknown COMPLETE BLOOD COUNT 8476344 GARY % 63.8 % 5 Unknown COMPLETE BLOOD COUNT 1789755 LY % 18.3 % 5 Unknown COMPLETE BLOOD COUNT 8102787 MON % 12.1 % 5 Unknown COMPLETE BLOOD COUNT 5701140 EOS % 5.7 % 5 Unknown COMPLETE BLOOD COUNT 6577319 BASO % 0.1 % 5 Unknown COMPLETE BLOOD COUNT 9983609 RDW 13.3 % 5 Unknown COMPLETE BLOOD COUNT 6598355 ABS GARY 4.27 10e9/L 015 Unknown COMPLETE BLOOD COUNT 6457678 ABS LYMPH 1.23 10e9/L 015 Unknown COMPLETE BLOOD COUNT 2700355 ABS MONO 0.81 10e9/L 015 Unknown COMPLETE BLOOD COUNT 7388818 ABS EOS 0.38 10e9/L 015 Unknown COMPLETE BLOOD COUNT 6165383 ABS BASO 0.01 10e9/L 015 Unknown COMPLETE BLOOD COUNT 5270197 RDW-SD 44.3 fL 5 Unknown URIC ACID 39074 URIC ACID 7.6 MG/DL 06/14/[place] [address] SYP AB NR 06/14/2014 Unknown THYROID STIMULATING HORMONE 03909 TSH 0.825 uIU/ML 06/14/2014 Unknown GLYCOSYLATED HEMOGLOBIN TEST 37705 A1C HPLC 76828-2 6.0 % 0 06/14/2014 Unknown VITAMIN B 12 FOLIC ACID 51746|27167 VIT B 12 751 PG/ML 05/25 Unknown VITAMIN B 12 FOLIC ACID 71111|71788 FOLIC ACID 23.5 NG/ML Unknown GFR CALC 1415316 GFR AA >60 ML/MIN 06/14/2014 Unknown GFR CALC 8008602 GFR NON-AA >60 ML/MIN 06/14/2014 Unknown C-REACTIVE PROTEIN (CRP) QUANT 83282 CRP 0.1 MG/DL 06/14/2014 Unknown COMPREHENSIVE METABOLIC 06760 AST 19 U/L 2014 Unknown COMPREHENSIVE METABOLIC 51952 ALT 16 IU/L 2014 Unknown COMPREHENSIVE METABOLIC 16271 BUN 13 MG/DL 2014 Unknown COMPREHENSIVE METABOLIC 16669 ALBUMIN 5.1 GM/DL 2014 Unknown COMPREHENSIVE METABOLIC 91078 CHLORIDE 92 MMOL/L 2014 Unknown COMPREHENSIVE METABOLIC 10698 BILI TOT 0.6 MG/DL 2014 Unknown COMPREHENSIVE METABOLIC 21256 ALK PHOS 61 U/L 2014 Unknown COMPREHENSIVE METABOLIC 65691 SODIUM 128 MMOL/L 06/14 Unknown COMPREHENSIVE METABOLIC 84142 CREATININE 1.00 MG/DL 05/25 Unknown COMPREHENSIVE METABOLIC 17539 CALCIUM 10.7 MG/DL 06/14 Unknown COMPREHENSIVE METABOLIC 47495 POTASSIUM 4.1 MMOL/L 06/14 Unknown COMPREHENSIVE METABOLIC 48969 PROT TOT 7.6 GM/DL 2014 Unknown COMPREHENSIVE METABOLIC 75671 Glucose 106 MG/DL 2014 Unknown COMPREHENSIVE METABOLIC 88082 BICARB 29 MMOL/L 2014 Unknown COMPREHENSIVE METABOLIC 70356 ANION GAP 7 MEQ/L 2014 Unknown COMPREHENSIVE METABOLIC 70838 AST 21 U/L 2014 Unknown COMPREHENSIVE METABOLIC 83010 ALT 26 IU/L 2014 Unknown COMPREHENSIVE METABOLIC 65624 BUN 16 MG/DL 2014 Unknown COMPREHENSIVE METABOLIC 27977 ALBUMIN 4.6 GM/DL 2014 Unknown COMPREHENSIVE METABOLIC 94425 CHLORIDE 99 MMOL/L 2014 Unknown COMPREHENSIVE METABOLIC 06046 BILI TOT 0.5 MG/DL 2014 Unknown COMPREHENSIVE METABOLIC 43193 ALK PHOS 57 U/L 2014 Unknown COMPREHENSIVE METABOLIC 21529 SODIUM 134 MMOL/L 03/09 Unknown COMPREHENSIVE METABOLIC 55232 CREATININE 0.91 MG/DL 02/23 Unknown COMPREHENSIVE METABOLIC 72604 CALCIUM 9.9 MG/DL 2014 Unknown COMPREHENSIVE METABOLIC 86108 POTASSIUM 4.3 MMOL/L 03/09 Unknown COMPREHENSIVE METABOLIC 00535 PROT TOT 7.0 GM/DL 2014 Unknown COMPREHENSIVE METABOLIC 36347 Glucose 91 MG/DL 2014 Unknown COMPREHENSIVE METABOLIC 19594 BICARB 30 MMOL/L 2014 Unknown COMPREHENSIVE METABOLIC 01391 ANION GAP 5 MEQ/L 2014 Unknown GLYCOSYLATED HEMOGLOBIN TEST 59057 A1C HPLC 05938-2 6.4 % 0 03/09/2014 Unknown GFR CALC 2872380 GFR AA >60 ML/MIN 03/09/2014 Unknown GFR CALC 9396594 GFR NON-AA >60 ML/MIN 03/09/2014 Unknown GLYCOSYLATED HEMOGLOBIN TEST 72206 A1C HPLC 24630-8 6.0 % 0 11/22/2013 Unknown THYROID STIMULATING HORMONE 64973 TSH 0.643 uIU/ML 11/18/2013 Unknown PSA EQUIMOLAR NITHIN 33797 PSA EQ 0.75 NG/ML 4 Unknown COMPREHENSIVE METABOLIC 16565 AST 21 U/L 2013 Unknown COMPREHENSIVE METABOLIC 75546 ALT 22 IU/L 2013 Unknown COMPREHENSIVE METABOLIC 10720 BUN 16 MG/DL 2013 Unknown COMPREHENSIVE METABOLIC 01024 ALBUMIN 4.6 GM/DL 2013 Unknown COMPREHENSIVE METABOLIC 40585 CHLORIDE 97 MMOL/L 2013 Unknown COMPREHENSIVE METABOLIC 89837 BILI TOT 0.8 MG/DL 2013 Unknown COMPREHENSIVE METABOLIC 00813 ALK PHOS 68 U/L 2013 Unknown COMPREHENSIVE METABOLIC 01067 SODIUM 132 MMOL/L 11/18 Unknown COMPREHENSIVE METABOLIC 81143 CREATININE 0.95 MG/DL 10/25 Unknown COMPREHENSIVE METABOLIC 68589 CALCIUM 10.1 MG/DL 11/18 Unknown COMPREHENSIVE METABOLIC 17750 POTASSIUM 4.2 MMOL/L 11/18 Unknown COMPREHENSIVE METABOLIC 67778 PROT TOT 7.2 GM/DL 2013 Unknown COMPREHENSIVE METABOLIC 19305 Glucose 125 MG/DL 2013 Unknown COMPREHENSIVE METABOLIC 59217 BICARB 26 MMOL/L 2013 Unknown COMPREHENSIVE METABOLIC 77702 ANION GAP 9 MEQ/L 2013 Unknown COMPLETE BLOOD COUNT 8048456 WBC 7.3 10e9/L 11/19/19 14 Unknown COMPLETE BLOOD COUNT 0174856 RBC 4.68 10e12/L 2013 Unknown COMPLETE BLOOD COUNT 3919901 HGB 15.4 g/dL 4 Unknown COMPLETE BLOOD COUNT 1443414 HCT DET 43.4 % 4 Unknown COMPLETE BLOOD COUNT 6249165 MCV 92.7 fL 4 Unknown COMPLETE BLOOD COUNT 6606618 MCH 32.9 pg 4 Unknown COMPLETE BLOOD COUNT 1745057 MCHC 35.5 g/dL 4 Unknown COMPLETE BLOOD COUNT 5956456 PLT 286 10e9/L 11/19/19 14 Unknown COMPLETE BLOOD COUNT 5778794 MPV 10.8 fL 4 Unknown COMPLETE BLOOD COUNT 0580304 GARY % 61.6 % 4 Unknown COMPLETE BLOOD COUNT 1938104 LY % 25.6 % 4 Unknown COMPLETE BLOOD COUNT 3043575 MON % 8.7 % 4 Unknown COMPLETE BLOOD COUNT 5474009 EOS % 4.0 % 4 Unknown COMPLETE BLOOD COUNT 5514780 BASO % 0.1 % 4 Unknown COMPLETE BLOOD COUNT 4400085 RDW 12.9 % 4 Unknown COMPLETE BLOOD COUNT 8970941 ABS GARY 4.50 10e9/L 014 Unknown COMPLETE BLOOD COUNT 2780140 ABS LYMPH 1.87 10e9/L 014 Unknown COMPLETE BLOOD COUNT 5751006 ABS MONO 0.64 10e9/L 014 Unknown COMPLETE BLOOD COUNT 6649068 ABS EOS 0.29 10e9/L 014 Unknown COMPLETE BLOOD COUNT 9434712 ABS BASO 0.01 10e9/L 014 Unknown COMPLETE BLOOD COUNT 6131321 RDW-SD 42.9 fL 4 Unknown LIPID GROUP 06614 HDL TEST 52 MG/DL 11/18/2013 Unknown LIPID GROUP 09021 TRIG 100 MG/DL 11/18/2013 Unknown LIPID GROUP 19693 TEST LDL 110 MG/DL 11/18/2013 Unknown LIPID GROUP 29090 CHOL 182 MG/DL 11/18/2013 Unknown LIPID GROUP 52081 RCHOL/HDL 3.50 RATIO 11/18/2013 Unknow n LIPID GROUP 94259 NON-HDL CH 130 MG/DL 11/18/2013 Unknow n FREE T4 67657 FREE T4 1.28 NG/DL 11/18/2013 Unknown GFR CALC 4254554 GFR AA >60 ML/MIN 11/18/2013 Unknown GFR CALC 2281099 GFR NON-AA >60 ML/MIN 11/18/2013 Unknown COMPREHENSIVE METABOLIC 36813 AST 21 U/L 2012 Unknown COMPREHENSIVE METABOLIC 29018 ALT 20 IU/L 2012 Unknown COMPREHENSIVE METABOLIC 05196 BUN 12 MG/DL 2012 Unknown COMPREHENSIVE METABOLIC 94892 ALBUMIN 4.6 GM/DL 2012 Unknown COMPREHENSIVE METABOLIC 54098 CHLORIDE 105 MMOL/L 11/03 Unknown COMPREHENSIVE METABOLIC 17823 BILI TOT 0.5 MG/DL 2012 Unknown COMPREHENSIVE METABOLIC 51963 ALK PHOS 53 U/L 2012 Unknown COMPREHENSIVE METABOLIC 79544 SODIUM 138 MMOL/L 11/03 Unknown COMPREHENSIVE METABOLIC 70029 CREATININE 0.93 MG/DL 10/24 Unknown COMPREHENSIVE METABOLIC 54293 CALCIUM 9.7 MG/DL 2012 Unknown COMPREHENSIVE METABOLIC 15095 POTASSIUM 4.3 MMOL/L 11/03 Unknown COMPREHENSIVE METABOLIC 74644 PROT TOT 7.0 GM/DL 2012 Unknown COMPREHENSIVE METABOLIC 25285 Glucose 117 MG/DL 2012 Unknown COMPREHENSIVE METABOLIC 58742 BICARB 25 MMOL/L 2012 Unknown COMPREHENSIVE METABOLIC 98319 ANION GAP 8 MEQ/L 2012 Unknown GFR CALC 5145986 GFR AA >60 ML/MIN 11/03/2012 Unknown GFR CALC 8918055 GFR NON-AA >60 ML/MIN 11/03/2012 Unknown THYROID STIMULATING HORMONE 09897 TSH 1.218 uIU/ML 11/03/2012 Unknown URIC ACID 21060 URIC ACID 7.6 MG/DL 11/03/2012 Unknown COMPLETE BLOOD COUNT 3278588 WBC 5.0 10e9/L 11/04/19 13 Unknown COMPLETE BLOOD COUNT 3935459 RBC 4.70 10e12/L 2012 Unknown COMPLETE BLOOD COUNT 2583175 HGB 15.6 g/dL 3 Unknown COMPLETE BLOOD COUNT 6930902 HCT DET 44.2 % 3 Unknown COMPLETE BLOOD COUNT 2021378 MCV 94.0 fL 3 Unknown COMPLETE BLOOD COUNT 1233986 MCH 33.2 pg 3 Unknown COMPLETE BLOOD COUNT 2509407 MCHC 35.3 g/dL 3 Unknown COMPLETE BLOOD COUNT 0561143 PLT 248 10e9/L 11/04/19 13 Unknown COMPLETE BLOOD COUNT 5935449 MPV 10.9 fL 3 Unknown COMPLETE BLOOD COUNT 5873401 GARY % 58.3 % 3 Unknown COMPLETE BLOOD COUNT 7673864 LY % 27.9 % 3 Unknown COMPLETE BLOOD COUNT 5788325 MON % 7.0 % 3 Unknown COMPLETE BLOOD COUNT 3872492 EOS % 6.6 % 3 Unknown COMPLETE BLOOD COUNT 9026445 BASO % 0.2 % 3 Unknown COMPLETE BLOOD COUNT 8154471 RDW 13.2 % 3 Unknown COMPLETE BLOOD COUNT 8706972 ABS GARY 2.92 10e9/L 013 Unknown COMPLETE BLOOD COUNT 3490412 ABS LYMPH 1.40 10e9/L 013 Unknown COMPLETE BLOOD COUNT 5226326 ABS MONO 0.35 10e9/L 013 Unknown COMPLETE BLOOD COUNT 5499204 ABS EOS 0.33 10e9/L 013 Unknown COMPLETE BLOOD COUNT 0928672 ABS BASO 0.01 10e9/L 013 Unknown COMPLETE BLOOD COUNT 9046717 RDW-SD 44.1 fL 3 Unknown HERPE1/2MG 45504|43439|58124 HSV G1 EIA 1.78 INDEX 3 Unknown HERPE1/2MG 25690|67409|87714 HSVM1/2EIA 0.15 02/26/2012 Unknown HERPE1/2MG 38213|28849|68756 HSV G2 EIA 10.14 INDEX 02/25/19 13 Unknown COMPLETE BLOOD COUNT 0647036 WBC 9.4 10e9/L 02/24/19 13 Unknown COMPLETE BLOOD COUNT 6629619 RBC 4.54 10e12/L 2012 Unknown COMPLETE BLOOD COUNT 6819447 HGB 14.9 g/dL 3 Unknown COMPLETE BLOOD COUNT 2682797 HCT DET 43.0 % 3 Unknown COMPLETE BLOOD COUNT 7601473 MCV 94.7 fL 3 Unknown COMPLETE BLOOD COUNT 2761442 MCH 32.8 pg 3 Unknown COMPLETE BLOOD COUNT 5699645 MCHC 34.7 g/dL 3 Unknown COMPLETE BLOOD COUNT 1624759 PLT 251 10e9/L 02/24/19 13 Unknown COMPLETE BLOOD COUNT 2657791 MPV 11.1 fL 3 Unknown COMPLETE BLOOD COUNT 8132967 GARY % 75.0 % 3 Unknown COMPLETE BLOOD COUNT 5138450 LY % 15.7 % 3 Unknown COMPLETE BLOOD COUNT 3468194 MON % 6.8 % 3 Unknown COMPLETE BLOOD COUNT 9160028 EOS % 2.3 % 3 Unknown COMPLETE BLOOD COUNT 2550227 BASO % 0.2 % 3 Unknown COMPLETE BLOOD COUNT 1534599 RDW 13.2 % 3 Unknown COMPLETE BLOOD COUNT 8850865 ABS GARY 7.05 10e9/L 013 Unknown COMPLETE BLOOD COUNT 0128279 ABS LYMPH 1.48 10e9/L 013 Unknown COMPLETE BLOOD COUNT 7690117 ABS MONO 0.64 10e9/L 013 Unknown COMPLETE BLOOD COUNT 7995653 ABS EOS 0.22 10e9/L 013 Unknown COMPLETE BLOOD COUNT 7633679 ABS BASO 0.02 10e9/L 013 Unknown COMPLETE BLOOD COUNT 6906558 RDW-SD 44.3 fL 3 Unknown COMPREHENSIVE METABOLIC 55471 AST 21 U/L 2012 Unknown COMPREHENSIVE METABOLIC 30129 ALT 22 IU/L 2012 Unknown COMPREHENSIVE METABOLIC 92882 BUN 12 MG/DL 2012 Unknown COMPREHENSIVE METABOLIC 77381 ALBUMIN 4.9 GM/DL 2012 Unknown COMPREHENSIVE METABOLIC 75830 CHLORIDE 102 MMOL/L 02/24 Unknown COMPREHENSIVE METABOLIC 52291 BILI TOT 0.6 MG/DL 2012 Unknown COMPREHENSIVE METABOLIC 42742 ALK PHOS 59 U/L 2012 Unknown COMPREHENSIVE METABOLIC 74114 SODIUM 137 MMOL/L 02/24 Unknown COMPREHENSIVE METABOLIC 94522 CREATININE 0.92 MG/DL 03/2012 Unknown COMPREHENSIVE METABOLIC 08606 CALCIUM 9.7 MG/DL 2012 Unknown COMPREHENSIVE METABOLIC 56593 POTASSIUM 4.1 MMOL/L 02/24 Unknown COMPREHENSIVE METABOLIC 92430 PROT TOT 6.9 GM/DL 2012 Unknown COMPREHENSIVE METABOLIC 36897 Glucose 127 MG/DL 2012 Unknown COMPREHENSIVE METABOLIC 51339 BICARB 25 MMOL/L 2012 Unknown COMPREHENSIVE METABOLIC 56815 ANION GAP 10 MEQ/L 2012 Unknown GFR CALC 6388747 GFR AA >60 ML/MIN 02/25/2012 Unknown GFR CALC 5416290 GFR NON-AA >60 ML/MIN 02/25/2012 Unknown TULAREM AB 1858287 TULAREM AB <1:20 09/23/2011 Unknown [place]IT [place] FEVER [id number] IGG RMSF <1:16 0 09/19/2011 Unknown [place] [place] FEVER 06666Q5 IGM RMSF <1:10 0 09/19/2011 Unknown E CHAFF AB 8189503 IGG E CHFF <1:16 09/19/2011 Unknown E CHAFF AB 1586303 IGM E CHFF <1:10 09/19/2011 Unknown GLYCOSYLATED HEMOGLOBIN TEST 91423 A1C HPLC 16222-2 5.4 % 0 09/18/2011 Unknown GFR CALC 7511076 GFR AA >60 ML/MIN 09/17/2011 Unknown GFR CALC 7411877 GFR NON-AA >60 ML/MIN 09/17/2011 Unknown VITAMIN B 12 FOLIC ACID 99849|47256 VIT B 12 405 PG/ML 08/24 Unknown VITAMIN B 12 FOLIC ACID 45433|73643 FOLIC ACID 17.5 NG/ML Unknown COMPREHENSIVE METABOLIC 45679 AST 19 U/L 2011 Unknown COMPREHENSIVE METABOLIC 52246 ALT 19 IU/L 2011 Unknown COMPREHENSIVE METABOLIC 44872 BUN 12 MG/DL 2011 Unknown COMPREHENSIVE METABOLIC 17705 ALBUMIN 4.9 GM/DL 2011 Unknown COMPREHENSIVE METABOLIC 57469 CHLORIDE 98 MMOL/L 2011 Unknown COMPREHENSIVE METABOLIC 88875 BILI TOT 1.2 MG/DL 2011 Unknown COMPREHENSIVE METABOLIC 19425 ALK PHOS 60 U/L 2011 Unknown COMPREHENSIVE METABOLIC 80833 SODIUM 133 MMOL/L 09/16 Unknown COMPREHENSIVE METABOLIC 93675 CREATININE 1.12 MG/DL 08/24 Unknown COMPREHENSIVE METABOLIC 15531 CALCIUM 10.1 MG/DL 09/16 Unknown COMPREHENSIVE METABOLIC 44822 POTASSIUM 4.1 MMOL/L 09/16 Unknown COMPREHENSIVE METABOLIC 18442 PROT TOT 7.6 GM/DL 2011 Unknown COMPREHENSIVE METABOLIC 20553 Glucose 121 MG/DL 2011 Unknown COMPREHENSIVE METABOLIC 67022 BICARB 25 MMOL/L 2011 Unknown COMPREHENSIVE METABOLIC 73580 ANION GAP 10 MEQ/L 2011 Unknown COMPLETE BLOOD COUNT 98491 WBC 5.8 10e9/L 09/17/19 12 Unknown COMPLETE BLOOD COUNT 62756 RBC 5.01 10e12/L 2011 Unknown COMPLETE BLOOD COUNT 45197 HGB 16.4 g/dL 2 Unknown COMPLETE BLOOD COUNT 86273 HCT DET 46.7 % 2 Unknown COMPLETE BLOOD COUNT 57416 MCV 93.2 fL 2 Unknown COMPLETE BLOOD COUNT 38627 MCH 32.7 pg 2 Unknown COMPLETE BLOOD COUNT 45447 MCHC 35.1 g/dL 2 Unknown COMPLETE BLOOD COUNT 45119 PLT 275 10e9/L 09/17/19 12 Unknown COMPLETE BLOOD COUNT 01187 MPV 10.8 fL 2 Unknown COMPLETE BLOOD COUNT 98050 GARY % 47.1 % 2 Unknown COMPLETE BLOOD COUNT 51914 LY % 37.2 % 2 Unknown COMPLETE BLOOD COUNT 00171 MON % 9.5 % 2 Unknown COMPLETE BLOOD COUNT 91892 EOS % 5.9 % 2 Unknown COMPLETE BLOOD COUNT 47846 BASO % 0.3 % 2 Unknown COMPLETE BLOOD COUNT 09209 RDW 13.0 % 2 Unknown COMPLETE BLOOD COUNT 79238 ABS GARY 2.73 10e9/L 012 Unknown COMPLETE BLOOD COUNT 04425 ABS LYMPH 2.16 10e9/L 012 Unknown COMPLETE BLOOD COUNT 84924 ABS MONO 0.55 10e9/L 012 Unknown COMPLETE BLOOD COUNT 08330 ABS EOS 0.34 10e9/L 012 Unknown COMPLETE BLOOD COUNT 71078 ABS BASO 0.02 10e9/L 012 Unknown COMPLETE BLOOD COUNT 70001 RDW-SD 43.1 fL 2 Unknown LIPID GROUP 15498 HDL TEST 39 MG/DL 09/17/2011 Unknown LIPID GROUP 93148 TRIG 195 MG/DL 09/17/2011 Unknown LIPID GROUP 93268 TEST LDL 98 MG/DL 09/17/2011 Unknown LIPID GROUP 74517 CHOL 176 MG/DL 09/17/2011 Unknown LIPID GROUP 08966 RCHOL/HDL 4.51 RATIO 09/17/2011 Unknow n THYROID STIMULATING HORMONE 75740 TSH 2.892 uIU/ML 08/29/2010 Unknown COMPLETE BLOOD COUNT 97291 WBC 6.5 10e9/L 08/30/19 11 Unknown COMPLETE BLOOD COUNT 29605 RBC 4.83 10e12/L 2010 Unknown COMPLETE BLOOD COUNT 94659 HGB 15.9 g/dL 1 Unknown COMPLETE BLOOD COUNT 48713 HCT DET 44.4 % 1 Unknown COMPLETE BLOOD COUNT 49316 MCV 91.9 fL 1 Unknown COMPLETE BLOOD COUNT 57005 MCH 32.9 pg 1 Unknown COMPLETE BLOOD COUNT 31507 MCHC 35.8 g/dL 1 Unknown COMPLETE BLOOD COUNT 85992 PLT 273 10e9/L 08/30/19 11 Unknown COMPLETE BLOOD COUNT 00906 MPV 10.1 fL 1 Unknown COMPLETE BLOOD COUNT 92234 GARY % 45.3 % 1 Unknown COMPLETE BLOOD COUNT 97453 LY % 39.3 % 1 Unknown COMPLETE BLOOD COUNT 49675 MON % 9.8 % 1 Unknown COMPLETE BLOOD COUNT 15679 EOS % 5.4 % 1 Unknown COMPLETE BLOOD COUNT 06832 BASO % 0.2 % 1 Unknown COMPLETE BLOOD COUNT 69033 RDW 13.2 % 1 Unknown COMPLETE BLOOD COUNT 94091 ABS GARY 2.94 10e9/L 011 Unknown COMPLETE BLOOD COUNT 08637 ABS LYMPH 2.55 10e9/L 011 Unknown COMPLETE BLOOD COUNT 07433 ABS MONO 0.64 10e9/L 011 Unknown COMPLETE BLOOD COUNT 53706 ABS EOS 0.35 10e9/L 011 Unknown COMPLETE BLOOD COUNT 02631 ABS BASO 0.01 10e9/L 011 Unknown COMPLETE BLOOD COUNT 36753 RDW-SD 43.5 fL 1 Unknown FREE T4 02631 FREE T4 1.39 NG/DL 08/29/2010 Unknown LIPID GROUP 38218 HDL TEST 52 MG/DL 08/29/2010 Unknown LIPID GROUP 87071 TRIG 110 MG/DL 08/29/2010 Unknown LIPID GROUP 47898 TEST LDL 109 MG/DL 08/29/2010 Unknown LIPID GROUP 12494 CHOL 183 MG/DL 08/29/2010 Unknown LIPID GROUP 58024 RCHOL/HDL 3.52 RATIO 08/29/2010 Unknow n PSA EQUIMOLAR NITHIN 52169 PSA EQ 1.14 NG/ML 1 Unknown GFR CALC [id number] GFR AA >60 ML/MIN 08/29/2010 Unknown GFR CALC [id number] GFR NON-AA >60 ML/MIN 08/29/2010 Unknown COMPREHENSIVE METABOLIC 37332 AST 23 U/L 2010 Unknown COMPREHENSIVE METABOLIC 11130 ALT 19 IU/L 2010 Unknown COMPREHENSIVE METABOLIC 37346 BUN 12 MG/DL 2010 Unknown COMPREHENSIVE METABOLIC 72500 ALBUMIN 4.9 GM/DL 2010 Unknown COMPREHENSIVE METABOLIC 25861 CHLORIDE 95 MMOL/L 2010 Unknown COMPREHENSIVE METABOLIC 18745 BILI TOT 0.4 MG/DL 2010 Unknown COMPREHENSIVE METABOLIC 87304 ALK PHOS 59 U/L 2010 Unknown COMPREHENSIVE METABOLIC 30344 SODIUM 132 MMOL/L 08/29 Unknown COMPREHENSIVE METABOLIC 10760 CREATININE 0.96 MG/DL 08/2010 Unknown COMPREHENSIVE METABOLIC 27326 CALCIUM 10.6 MG/DL 08/29 Unknown COMPREHENSIVE METABOLIC 24942 POTASSIUM 4.0 MMOL/L 08/29 Unknown COMPREHENSIVE METABOLIC 18815 PROT TOT 8.0 GM/DL 2010 Unknown COMPREHENSIVE METABOLIC 90633 Glucose 105 MG/DL 2010 Unknown COMPREHENSIVE METABOLIC 36543 BICARB 22 MMOL/L 2010 Unknown COMPREHENSIVE METABOLIC 86013 ANION GAP 15 MEQ/L 2010 Unknown URIC ACID 87915 URIC ACID 6.7 MG/DL 12/12/2009 Unknown Procedures Procedure Codes Date ROUTINE VENIPUNCTURE CPT-4: 33761 04/18/2020 COMPREHEN METABOLIC PANEL CPT-4: 86934 04/18/2020 LIPID PANEL CPT-4: 96649 04/18/2020 A1C HPLC CPT-4: 69545 04/18/2020 PPPS, subseq visit CPT-4: G0439 10/12/2019 ROUTINE VENIPUNCTURE CPT-4: 83936 01/29/2018 COMPREHEN METABOLIC PANEL CPT-4: 82935 01/29/2018 LIPID PANEL CPT-4: 87154 01/29/2018 A1C HPLC CPT-4: 06441 01/29/2018 HEPATITIS C AB TEST CPT-4: 50358 01/29/2018 ROUTINE VENIPUNCTURE CPT-4: 91198 05/01/2017 ASSAY THYROID STIM HORMONE CPT-4: 28670 05/01/2017 COMPREHEN METABOLIC PANEL CPT-4: 20831 05/01/2017 COMPLETE CBC W/AUTO DIFF WBC CPT-4: 83511 05/01/2017 LIPID PANEL CPT-4: 30145 05/01/2017 A1C HPLC CPT-4: 84095 05/01/2017 ASSAY OF PSA TOTAL CPT-4: 76448 05/01/2017 ROUTINE VENIPUNCTURE CPT-4: 79284 01/04/2016 ASSAY OF FREE THYROXINE CPT-4: 33479 01/04/2016 ASSAY THYROID STIM HORMONE CPT-4: 30747 01/04/2016 COMPREHEN METABOLIC PANEL CPT-4: 35345 01/04/2016 COMPLETE CBC W/AUTO DIFF WBC CPT-4: 12030 01/04/2016 LIPID PANEL CPT-4: 80352 01/04/2016 ASSAY OF PSA TOTAL CPT-4: 52039 01/04/2016 A1C HPLC CPT-4: 78917 01/04/2016 ROUTINE VENIPUNCTURE CPT-4: 45339 02/02/2015 ASSAY OF FREE THYROXINE CPT-4: 17659 02/02/2015 ASSAY THYROID STIM HORMONE CPT-4: 68516 02/02/2015 COMPREHEN METABOLIC PANEL CPT-4: 72740 02/02/2015 COMPLETE CBC W/AUTO DIFF WBC CPT-4: 31539 02/02/2015 LIPID PANEL CPT-4: 75752 02/02/2015 ASSAY OF PSA TOTAL CPT-4: 44104 02/02/2015 A1C HPLC CPT-4: 80668 02/02/2015 THER/PROPH/DIAG INJ SC/IM CPT-4: 88751 07/19/2014 METHYLPREDNISOLONE 40 MG INJ CPT-4: J1030 07/19/2014 TRIAMCINOLONE ACET INJ NOS CPT-4: J3301 07/19/2014 ROUTINE VENIPUNCTURE CPT-4: 39288 06/14/2014 ASSAY OF FREE THYROXINE CPT-4: 33075 06/14/2014 ASSAY THYROID STIM HORMONE CPT-4: 86735 06/14/2014 COMPREHEN METABOLIC PANEL CPT-4: 11756 06/14/2014 COMPLETE CBC W/AUTO DIFF WBC CPT-4: 92080 06/14/2014 A1C HPLC CPT-4: 52281 06/14/2014 VITAMIN B 12 FOLIC ACID CPT-4: 67276|09827 06/14/2014 RBC SED RATE AUTOMATED CPT-4: 44076 06/14/2014 RHEUMATOID FACTOR QUANT CPT-4: 87769 06/14/2014 ANTINUCLEAR ANTIBODIES CPT-4: 19528 06/14/2014 ANTISTREPTOLYSIN O TITER CPT-4: 85749 06/14/2014 ASSAY OF BLOOD/URIC ACID CPT-4: 37438 06/14/2014 C-REACTIVE PROTEIN CPT-4: 20336 06/14/2014 ROUTINE VENIPUNCTURE CPT-4: 10183 03/09/2014 COMPREHEN METABOLIC PANEL CPT-4: 53635 03/09/2014 A1C HPLC CPT-4: 64690 03/09/2014 ROUTINE VENIPUNCTURE CPT-4: 78470 11/18/2013 ASSAY OF FREE THYROXINE CPT-4: 82159 11/18/2013 ASSAY THYROID STIM HORMONE CPT-4: 16401 11/18/2013 COMPREHEN METABOLIC PANEL CPT-4: 43655 11/18/2013 COMPLETE CBC W/AUTO DIFF WBC CPT-4: 12884 11/18/2013 LIPID PANEL CPT-4: 50623 11/18/2013 ASSAY OF PSA TOTAL CPT-4: 76585 11/18/2013 A1C HPLC CPT-4: 26313 11/18/2013 REMOVE FOREIGN BODY CPT-4: 65695 11/09/2013 OCCULT BLOOD FECES CPT-4: 96252 11/09/2013 THER/PROPH/DIAG INJ SC/IM CPT-4: 28712 11/24/2012 VITAMIN B12 INJECTION CPT-4: J3420 11/24/2012 COMPREHEN METABOLIC PANEL CPT-4: 03221 11/03/2012 COMPLETE CBC W/AUTO DIFF WBC CPT-4: 84871 11/03/2012 ASSAY THYROID STIM HORMONE CPT-4: 48921 11/03/2012 ASSAY OF BLOOD/URIC ACID CPT-4: 96123 11/03/2012 ROUTINE VENIPUNCTURE CPT-4: 64124 11/03/2012 ROUTINE VENIPUNCTURE CPT-4: 84620 02/25/2012 COMPREHEN METABOLIC PANEL CPT-4: 91837 02/25/2012 COMPLETE CBC W/AUTO DIFF WBC CPT-4: 10203 02/25/2012 HERPE1/2MG CPT-4: 16378|79526|15206 02/25/2012 THER/PROPH/DIAG INJ SC/IM CPT-4: 26886 09/24/2011 VITAMIN B12 INJECTION CPT-4: J3420 09/24/2011 CEFTRIAXONE SODIUM INJECTION CPT-4: J0696 09/24/2011 THER/PROPH/DIAG INJ SC/IM CPT-4: 22160 09/24/2011 ROUTINE VENIPUNCTURE CPT-4: 62579 09/17/2011 COMPREHEN METABOLIC PANEL CPT-4: 77047 09/17/2011 COMPLETE CBC W/AUTO DIFF WBC CPT-4: 22091 09/17/2011 LIPID PANEL CPT-4: 87218 09/17/2011 VITAMIN B 12 FOLIC ACID CPT-4: 66702|25090 09/17/2011 A1C GLYCOSYLATED HEMOGLOBIN TEST CPT-4: 51155 012 ROUTINE VENIPUNCTURE CPT-4: 34295 08/29/2010 COMPLETE CBC W/AUTO DIFF WBC CPT-4: 67290 08/29/2010 COMPREHEN METABOLIC PANEL CPT-4: 63521 08/29/2010 LIPID PANEL CPT-4: 90252 08/29/2010 ASSAY THYROID STIM HORMONE CPT-4: 46298 08/29/2010 ASSAY OF FREE THYROXINE CPT-4: 07044 08/29/2010 ASSAY OF PSA TOTAL CPT-4: 27532 08/29/2010 THER/PROPH/DIAG INJ SC/IM CPT-4: 94843 12/12/2009 VITAMIN B12 INJECTION CPT-4: J3420 12/12/2009 ROUTINE VENIPUNCTURE CPT-4: 64817 12/12/2009 ASSAY OF BLOOD/URIC ACID CPT-4: 76524 12/12/2009 THER/PROPH/DIAG INJ SC/IM CPT-4: 01615 10/30/2009 VITAMIN B12 INJECTION CPT-4: J3420 10/30/2009 THER/PROPH/DIAG INJ SC/IM CPT-4: 23258 10/01/2009 VITAMIN B12 INJECTION CPT-4: J3420 10/01/2009 THER/PROPH/DIAG INJ SC/IM CPT-4: 05175 10/01/2009 CEFTRIAXONE SODIUM INJECTION CPT-4: J0696 10/01/2009 Vital Signs Date Vital 10/26/2020 Blood Pressure 1: 108/66 Code: 8480-6 Heart Rate 1: 86 bpm Respiratory Rate: 16 bpm SpO2: 99% Temperature: 36.6 (C) / 97.8 (F) 10/22/2020 Blood Pressure 1: 140/76 Code: 8480-6 Heart Rate 1: 71 bpm Respiratory Rate: 17 bpm SpO2: 98% Temperature: 36.3 (C) / 97.3 (F) We ight: 149 lbs Code: 95552-8 10/19/2020 Blood Pressure 1: 121/87 Code: 8480-6 Heart Rate 1: 100 bpm Respiratory Rate: 16 bpm SpO2: 96% Temperature: 36.3 (C) / 97.3 (F) We ight: 149 lbs Code: 25941-8 10/01/2020 Blood Pressure 1: 140/84 Code: 8480-6 Heart Rate 1: 100 bpm Respiratory Rate: 18 bpm SpO2: 96% Temperature: 36.6 (C) / 97.9 (F) We ight: 147 lbs Code: 00786-5 09/24/2020 Blood Pressure 1: 112/70 Code: 8480-6 Heart Rate 1: 84 bpm Respiratory Rate: 18 bpm SpO2: 96% Temperature: 36.9 (C) / 98.4 (F) 09/17/2020 Blood Pressure 1: 116/78 Code: 8480-6 Heart Rate 1: 92 bpm Respiratory Rate: 20 bpm SpO2: 98% Temperature: 36.7 (C) / 98.0 (F) 09/14/2020 Blood Pressure 1: 142/76 Code: 8480-6 Heart Rate 1: 91 bpm Respiratory Rate: 17 bpm SpO2: 98% Temperature: 36.7 (C) / 98.1 (F) We ight: 152 lbs Code: 09139-8 09/12/2020 Blood Pressure 1: 133/70 Code: 8480-6 Heart Rate 1: 100 bpm Respiratory Rate: 16 bpm SpO2: 100% Temperature: 36.5 (C) / 97.7 (F) We ight: 152 lbs Code: 42502-6 04/18/2020 Blood Pressure 1: 144/78 Code: 8480-6 Heart Rate 1: 80 bpm Respiratory Rate: 16 bpm SpO2: 98% Temperature: 36.4 (C) / 97.5 (F) We ight: 160 lbs Code: 68785-2 10/12/2019 Blood Pressure 1: 124/78 Code: 8480-6 BMI: 24.8 Code: 60048-8 Heart Rate 1: 76 bpm Height: 5'8" Code: 8302-2 Respiratory Rate: 20 bpm SpO2: 98% Temperature: 36.6 (C) / 97.9 (F) Weight: 163 lbs Code: 01691-8 04/25/2019 Blood Pressure 1: 140/86 Code: 8480-6 BMI: 24.3 Code: 72006-2 Heart Rate 1: 92 bpm Height: 5'8" Code: 8302-2 Respiratory Rate: 20 bpm SpO2: 98% Temperature: 36.8 (C) / 98.3 (F) Weight: 160 lbs Code: 51042-6 04/12/2019 Blood Pressure 1: 146/86 Code: 8480-6 BMI: 25.4 Code: 80814-3 Heart Rate 1: 88 bpm Height: 5'8" Code: 8302-2 Respiratory Rate: 20 bpm SpO2: 98% Temperature: 36.5 (C) / 97.7 (F) Weight: 167 lbs Code: 42382-1 02/17/2018 Blood Pressure 1: 114/62 Code: 8480-6 Bl ood Pressure 2: 116/70 Code: 8480-6 BMI: 24.9 Code: 40234-9 Heart Rate 1: 76 bpm Height: 5'8" Code: 8302-2 Respiratory Rate: 20 bpm SpO2: 97% Temperature: 36.7 (C) / 98.0 (F) We ight: 164 lbs Code: 19963-8 04/07/2017 Blood Pressure 1: 122/84 Code: 8480-6 BMI: 24.3 Code: 11952-7 Heart Rate 1: 72 bpm Height: 5'8" Code: 8302-2 Respiratory Rate: 20 bpm SpO2: 96% Temperature: 36.9 (C) / 98.4 (F) Weight: 160 lbs Code: 93589-6 09/19/2016 Blood Pressure 1: 124/76 Code: 8480-6 BMI: 24.6 Code: 78633-7 Heart Rate 1: 68 bpm Height: 5'8" Code: 8302-2 Respiratory Rate: 20 bpm SpO2: 96% Temperature: 36.6 (C) / 97.9 (F) Weight: 162 lbs Code: 33291-0 12/18/2015 Blood Pressure 1: 136/70 Code: 8480-6 BMI: 24.3 Code: 01776-7 Heart Rate 1: 84 bpm Height: 5'8" Code: 8302-2 Respiratory Rate: 20 bpm Temperatu re: 36.5 (C) / 97.7 (F) Weight: 160 lbs Code: 59593-7 07/20/2015 Blood Pressure 1: 140/84 Code: 8480-6 BMI: 24.9 Code: 56280-9 Heart Rate 1: 76 bpm Height: 5'8" Code: 8302-2 Respiratory Rate: 20 bpm Temperatu re: 36.6 (C) / 97.9 (F) Weight: 164 lbs Code: 47140-3 02/07/2015 Blood Pressure 1: 164/82 Code: 8480-6 BMI: 25.5 Code: 24766-2 Heart Rate 1: 78 bpm Height: 5'8" Code: 8302-2 Respiratory Rate: 20 bpm Temperatu re: 36.5 (C) / 97.7 (F) Weight: 168 lbs Code: 78798-0 07/19/2014 Blood Pressure 1: 136/94 Code: 8480-6 BMI: 24.8 Code: 55717-7 Heart Rate 1: 88 bpm Height: 5'8" Code: 8302-2 Respiratory Rate: 20 bpm Temperatu re: 36.8 (C) / 98.2 (F) Weight: 163 lbs Code: 43532-4 07/06/2014 Blood Pressure 1: 136/92 Code: 8480-6 BMI: 24.2 Code: 74025-7 Heart Rate 1: 88 bpm Height: 5'8" Code: 8302-2 Respiratory Rate: 20 bpm Temperatu re: 36.9 (C) / 98.4 (F) Weight: 159 lbs Code: 64067-5 07/04/2014 Blood Pressure 1: 116/84 Code: 8480-6 Bl ood Pressure 2: 108/82 Code: 8480-6 Heart Rate 1: 88 bpm Respiratory Rate: 20 bpm Temperature: 3 6.7 (C) / 98.0 (F) Weight: 159 lbs Code: 20970-4 06/14/2014 Blood Pressure 1: 132/90 Code: 8480-6 BMI: 24.6 Code: 54445-1 Heart Rate 1: 100 bpm Height: 5'8" Code: 8302-2 Respiratory Rate: 20 bpm Temperatu re: 37.2 (C) / 99.0 (F) Weight: 162 lbs Code: 93551-2 03/09/2014 Blood Pressure 1: 122/62 Code: 8480-6 BMI: 25.4 Code: 91609-4 Heart Rate 1: 84 bpm Height: 5'8" Code: 8302-2 Respiratory Rate: 20 bpm Temperatu re: 36.6 (C) / 97.8 (F) Weight: 167 lbs Code: 87749-2 01/05/2014 Blood Pressure 1: 124/82 Code: 8480-6 BMI: 25.4 Code: 55665-2 Heart Rate 1: 84 bpm Height: 5'8" Code: 8302-2 Respiratory Rate: 20 bpm Temperatu re: 36.7 (C) / 98.0 (F) Weight: 167 lbs Code: 71373-6 11/09/2013 Blood Pressure 1: 138/82 Code: 8480-6 BMI: 24.5 Code: 45203-4 Heart Rate 1: 84 bpm Height: 5'8" Code: 8302-2 Respiratory Rate: 20 bpm Temperatu re: 37.1 (C) / 98.8 (F) Weight: 161 lbs Code: 83270-9 11/24/2012 Blood Pressure 1: 122/72 Code: 8480-6 BMI: 24.0 Code: 61745-3 Heart Rate 1: 66 bpm Height: 5'8" Code: 8302-2 Respiratory Rate: 20 bpm Temperatu re: 36.5 (C) / 97.7 (F) Weight: 158 lbs Code: 64863-6 11/03/2012 Blood Pressure 1: 130/84 Code: 8480-6 BMI: 23.7 Code: 73876-7 Heart Rate 1: 72 bpm Height: 5'8" Code: 8302-2 Respiratory Rate: 20 bpm Temperatu re: 36.2 (C) / 97.1 (F) Weight: 156 lbs Code: 94738-2 02/25/2012 Blood Pressure 1: 142/84 Code: 8480-6 BMI: 25.1 Code: 42451-7 Heart Rate 1: 68 bpm Height: 5'8" Code: 8302-2 Temperature: 37.2 (C) / 99.0 (F) Weight: 165 lbs Code: 98611-1 10/08/2011 Blood Pressure 1: 126/80 Code: 8480-6 BMI: 24.3 Code: 05958-4 Heart Rate 1: 84 bpm Height: 5'8" Code: 8302-2 Respiratory Rate: 20 bpm Temperatu re: 36.8 (C) / 98.2 (F) Weight: 160 lbs Code: 53136-2 09/24/2011 Blood Pressure 1: 136/80 Code: 8480-6 BMI: 24.3 Code: 71220-9 Heart Rate 1: 84 bpm Height: 5'8" Code: 8302-2 Respiratory Rate: 20 bpm Temperatu re: 36.8 (C) / 98.2 (F) Weight: 160 lbs Code: 13887-0 09/17/2011 Blood Pressure 1: 128/84 Cod e: 8480-6 09/09/2011 Blood Pressure 1: 142/84 Code: 8480-6 BMI: 24.3 Code: 98722-2 Height: 5'8" Code: 8302-2 Temperature: 36.7 (C) / 98.0 (F) Weight: 160 lbs Code : 97276-1 08/29/2010 Blood Pressure 1: 144/84 Code: 8480-6 Heart Rate 1: 72 bpm Temperature: 36.8 (C) / 98.2 (F) Weight: 156 lbs Code: 15998-8 12/12/2009 Blood Pressure 1: 146/88 Code: 8480-6 Heart Rate 1: 76 bpm Temperature: 36.6 (C) / 97.9 (F) Weight: 152 lbs Code: 96326-1 10/30/2009 Blood Pressure 1: 132/70 Code: 8480-6 Heart Rate 1: 80 bpm Temperature: 36.9 (C) / 98.4 (F) Weight: 151 lbs Code: 84782-0 10/01/2009 Blood Pressure 1: 142/86 Code: 8480-6 BMI: 23.0 Code: 45887-8 Heart Rate 1: 84 bpm Height: 5'8" Code: 8302-2 Temperature: 36.9 (C) / 98.4 (F) Weight: 151 lbs Code: 55356-2 Functional Status No Functional Status data Reason For Visit Reason For Visit Effective Dates Notes follow up 10/26/2020 follow up 10/22/2020 neck swelling 10/19/2020 follow up 10/01/2020 follow up 09/24/2020 follow up 09/17/2020 follow up 09/14/2020 dvt right leg bone pain 09/12/2020 follow up 04/18/2020 well man exam (65+ years) 10/12/2019 Annual Medicar e Wellness---no recent labs and patient not fasting today follow up 04/25/2019 follow up 04/12/2019 from [facility] well man exam (40-65 years) 02/17/2018 lab draw 05/01/2017 chest congestion 04/07/2017 high blood pressure 09/19/2016 lab draw 01/04/2016 high blood pressure 12/18/2015 well man exam (40-65 years) 07/20/2015 follow up 02/07/2015 Discuss Labs lab draw 02/02/2015 sinusitis 07/19/2014 follow up 07/06/2014 headache 07/04/2014 vision change 06/14/2014 follow up 03/09/2014 3 month- patient sta rted Metformin last visit follow up 01/05/2014 1mo fwup lab draw 11/18/2013 well man exam (40-65 years) 11/09/2013 joint complaint 11/24/2012 neck pain 11/03/2012 rash 02/25/2012 follow up 10/08/2011 2wk fwup follow up 09/24/2011 discuss labs/tick il lness titers, finished doxycyline 5 days ago lab draw 09/17/2011 arthropod bite 09/09/2011 tick bite Yearly Checkup/Physical 08/29/2010 needing medicati on refilled follow up 12/12/2009 1mo fwup--reschedule d follow up 10/30/2009 1mo fwup Yearly Checkup/Physical 10/01/2009 establishing vis it, being treated for [place] Spotted Fever Encounters Encounter Performer Location Codes Date ([id number]) OFFICE/OUTPATIENT VISIT EST Diagnosis: Pulmonary nodules[ICD10: R91.8] Diagnosis: Supraclavicular adenopathy[ICD10: R59.0] Diagnosis: Thrombocytopenia[ICD10: D69.6] Estephanie Rodas UMESHLISANORMAN [employer] CPT-4: 33163 10/26/2020 ([id number]) OFFICE/OUTPATIENT VISIT EST Diagnosis: Mass of left lung[ICD10: R91.8] Diagnosis: Supraclavicular adenopathy[ICD10: R59.0] Diagnosis: On anticoagulant therapy[ICD10: Z79.01] Diagnosis: Other acute pulmonary embolism without acute cor pulmonale[ICD10: I26.99] Diagnosis: Lymphadenopathy[ICD10: R59.1] Diagnosis: Thrombocytopenia[ICD10: D69.6] Diagnosis: Pericardial effusion[ICD10: I31.3] Estephanie Howard UMESHLISA [employer] [facility] CPT-4: 21167 10/22/2020 ([id number]) OFFICE/OUTPATIENT VISIT EST Diagnosis: Supraclavicular adenopathy[ICD10: R59.0] Diagnosis: Difficulty swallowing[ICD10: R13.10] Estephanie Howard XtremIOLISA [employer] [facility] CPT-4: 51285 10/19/2020 ([id number]) OFFICE/OUTPATIENT VISIT EST Diagnosis: On anticoagulant therapy[ICD10: Z79.01] Diagnosis: Acute deep vein thrombosis (DVT) of femoral vein of right lower extremity[ICD10: I82.411] Estephanie Howard UMESHWALESKA [employer] [facility] CPT-4 : 33357 10/01/2020 ([id number]) OFFICE/OUTPATIENT VISIT EST Diagnosis: Right leg DVT[ICD10: I82.401] Tracie Howard UMESHWALESKA [employer] [facility] CPT-4: 78129 09/24/2020 ([id number]) OFFICE/OUTPATIENT VISIT EST Diagnosis: Acute deep vein thrombosis (DVT) of femoral vein of right lower extremity[ICD10: I82.411] Diagnosis: On anticoagulant therapy[ICD10: Z79.01] Estephanie Mcguiredeborahjose JEISON JAYDENKAMALJIT [employer]ark THIAGO [employer] [facility] CPT-4: 61078 09/17/2020 ([id number]) OFFICE/OUTPATIENT VISIT EST Diagnosis: Acute deep vein thrombosis (DVT) of femoral vein of right lower extremity[ICD10: I82.411] Estephanie Zaidi TRACIE [employer] [facility] CPT-4 : 80411 09/14/2020 ([id number]) OFFICE/OUTPATIENT VISIT EST Diagnosis: Fall down stairs, initial encounter[ICD10: W10.8XXA] Diagnosis: Right leg swelling[ICD10: M79.89] Diagnosis: Right leg pain[ICD10: M79.604] Estephanie Mcguirewillam GALARZA Elvin Clark [employer] [facility] CPT-4: 94387 09/12/2020 ([id number]) OFFICE/OUTPATIENT VISIT EST Diagnosis: Hypertension[ICD10: I10] Diagnosis: Hyperglycemia, unspecified[ICD10: R73.9] Diagnosis: Mixed hyperlipidemia[ICD10: E78.2] Tracie MOHAN [employer] MICAH [employer] [facility] CPT-4: 69980 04/18/2020 ([id number]) OFFICE/OUTPATIENT VISIT EST 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] Diagnosis: Cat scratch[ICD10: W55.03XA] Diagnosis: Hypertension[ICD10: I10] Diagnosis: Pulmonary nodules[ICD10: R91.8] Tracie GALARZA ElvinClark UMESHLISANORMAN [employer] [facility] CPT-4: 99643 04/25/2019 ([id number]) OFFICE/OUTPATIENT VISIT EST 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] Diagnosis: Dysphagia[ICD10: R13.10] Tracie Howard HOOD CHARLENE [facility] CPT-4: 53927 04/12/2019 ([id number]) PER PM REEVAL EST PAT 65+ YR Diagnosis: Encounter for general adult medical examination without abnormal findings[ICD10: Z00.00] Diagnosis: Essential (primary) hypertension[ICD10: I10] Diagnosis: Hyperglycemia, unspecified[ICD10: R73.9] Tracie KEYES DO [facility] CPT-4: 44705 02/17/2018 ([id number]) NURSE/OUTPATIENT VISIT EST Diagnosis: Essential (primary) hypertension[ICD10: I10] Diagnosis: Mixed hyperlipidemia[ICD10: E78.2] Diagnosis: Hyperglycemia, unspecified[ICD10: R73.9] Diagnosis: Encounter for screening for other viral diseases[ICD10: Z11.59] Tracie KEYES DO [facility] CPT-4: 48858 01/29/2018 ([id number]) OFFICE/OUTPATIENT VISIT EST Diagnosis: Encounter for general adult medical examination without abnormal findings[ICD10: Z00.00] Diagnosis: Mixed hyperlipidemia[ICD10: E78.2] Diagnosis: Essential (primary) hypertension[ICD10: I10] Diagnosis: Impaired fasting glucose[ICD10: R73.01] Diagnosis: Encounter for screening for malignant neoplasm of prostate[ICD10: Z12.5] Tracie OBRIEN [employer] [facility] CPT-4: 41041 05/01/2017 ([id number]) OFFICE/OUTPATIENT VISIT EST Diagnosis: URI, ACUTE[ICD10: J06.9] Tracie CHANG [facility] CPT-4: 46830 04/07/2017 OFFICE/OUTPATIENT VISIT EST Diagnosis: Essential (primary) hypertension[ICD10: I10] Ashley Crenshaw TRACIE KEYES [employer] [facility] CPT-4: 98839 09/19/2016 ([id number]) OFFICE/OUTPATIENT VISIT EST Diagnosis: Encounter for general adult medical examination without abnormal findings[ICD10: Z00.00] Diagnosis: Essential (primary) hypertension[ICD10: I10] Diagnosis: Impaired fasting glucose[ICD10: R73.01] Tracie KEYES [employer] [facility] CPT-4: 55858 01/04/2016 ([id number]) OFFICE/OUTPATIENT VISIT EST Diagnosis: Essential (primary) hypertension[ICD10: I10] Diagnosis: Mixed hyperlipidemia[ICD10: E78.2] Diagnosis: Impaired fasting glucose[ICD10: R73.01] Tracie CHAVEZ Lee KEYES [facility] CPT-4: 94594 12/18/2015 ([id number]) PREV VISIT EST AGE 40-64 Diagnosis: Encounter for general adult medical examination without abnormal findings[ICD10: Z00.00] Diagnosis: Essential (primary) hypertension[ICD10: I10] Ashley QuinnJaquelinRalph DURANLINE [employer] C[facility]: 09816 07/20/2015 OFFICE/OUTPATIENT VISIT EST Diagnosis: Mixed hyperlipidemia[ICD10: E78.2] Diagnosis: Impaired fasting glucose[ICD10: R73.01] Diagnosis: Insomnia, unspecified[ICD10: G47.00] Jacque Jessica MCHUGHQUE KAMALJIT Lee [facility] CPT-4: 72266 02/07/2015 ([id number]) OFFICE/OUTPATIENT VISIT EST Diagnosis: Encounter for general adult medical examination without abnormal findings[ICD10: Z00.00] Diagnosis: Essential (primary) hypertension[ICD10: I10] Diagnosis: Mixed hyperlipidemia[ICD10: E78.2] Tracie MOHAN Lee OBRIEN [employer] [facility] CPT-4: 69226 02/02/2015 ([id number]) OFFICE/OUTPATIENT VISIT EST Diagnosis: SINUSITIS, ACUTE[ICD9: 461.9] Jacque MCHUGHQUELINE Lee KEYES [facility] CPT-4: 58496 07/19/2014 ([id number]) OFFICE/OUTPATIENT VISIT EST Diagnosis: Hypotension[ICD9: 458.9] Diagnosis: DYSPEPSIA[ICD9: 536.8] Diagnosis: HYPERTENSION[ICD9: 401.9] Tracie GALARZA ElvinClark UMESH GALEANO [facility] CPT-4: 36072 07/06/2014 ([id number]) OFFICE/OUTPATIENT VISIT EST Diagnosis: DIZZINESS/VERTIGO[ICD9: 780.4] Diagnosis: HYPOTENSION[ICD9: 458.9] Diagnosis: MALAISE AND FATIGUE[ICD9: 780.79] Tracie Murillo [employer] MICAH [employer] [facility] CPT-4: 55652 07/04/2014 ([id number]) OFFICE/OUTPATIENT VISIT EST Diagnosis: ARTHRALGIA-MULTIPLE SITES[ICD9: 719.49] Diagnosis: CEPHALGIA[ICD9: 784.0] Diagnosis: Uveitis[ICD9: 364.3] Tracie KEYES DO [facility] CPT-4: 36779 06/14/2014 ([id number]) OFFICE/OUTPATIENT VISIT EST Diagnosis: HYPERTENSION[ICD9: 401.9] Diagnosis: OTHER ABNORMAL GLUCOSE[ICD9: 790.29] Tracie KEYES DO [facility] CPT-4: 09617 03/09/2014 ([id number]) OFFICE/OUTPATIENT VISIT EST Diagnosis: OTHER ABNORMAL GLUCOSE[ICD9: 790.29] Tracie KEYES DO [facility] CPT-4: 09253 01/05/2014 ([id number]) OFFICE/OUTPATIENT VISIT EST Diagnosis: ROUTINE MEDICAL EXAM[ICD9: V70.0] Tracie KEYES DO [facility] CPT-4: 24714 11/18/2013 ([id number]) PREV VISIT EST AGE 40-64 Diagnosis: ROUTINE MEDICAL EXAM[ICD9: V70.0] Diagnosis: HYPERLIPIDEMIA NEC/NOS[ICD9: 272.4] Diagnosis: FOREIGN BODY FINGER[ICD9: 915.6] Tracie KEYES [facility] CPT-4: 25642 11/09/2013 ([id number]) OFFICE/OUTPATIENT VISIT EST Diagnosis: CERVICALGIA[ICD9: 723.1] Diagnosis: B12 DEFIC ANEMIA NEC[ICD9: 281.1] Diagnosis: DISTURBANCE OF SKIN SENSATION (Paresthesia)[ICD9: 782.0] Tracie KEYES DO [facility] CPT-4: 54691 11/24/2012 OFFICE/OUTPATIENT VISIT EST Diagnosis: Neck pain on left side[ICD9: 723.1] Diagnosis: Tendonitis of elbow, left[ICD9: 727.09] Jacque Lopez TRACIE KEYES DO [facility] CPT-4: 98814 11/03/2012 OFFICE/OUTPATIENT VISIT EST Diagnosis: Oral lesion[ICD9: 528.9] Diagnosis: Herpes zoster[ICD9: 053.9] Diagnosis: FEBRILE ILLNESS[ICD9: 780.60] Liz GALARZA SClark ORENDER DO [facility] CPT-4: 79459 02/25/2012 OFFICE/OUTPATIENT VISIT EST Diagnosis: MALAISE AND FATIGUE[ICD9: 780.79] Diagnosis: B12 DEFIC ANEMIA NEC[ICD9: 281.1] Diagnosis: SPOTTED FEVERS[ICD9: 082.0] Diagnosis: SPASM OF MUSCLE[ICD9: 728.85] Tracie GALARZA SClark ORENDER DO [facility] CPT-4: 51501 10/08/2011 ([id number]) OFFICE/OUTPATIENT VISIT EST Diagnosis: MALAISE AND FATIGUE[ICD9: 780.79] Diagnosis: SPOTTED FEVERS[ICD9: 082.0] Diagnosis: B12 DEFIC ANEMIA NEC[ICD9: 281.1] Tracie Murillo SClark UMESHNDER DO [facility] CPT-4: 34832 09/24/2011 ([id number]) OFFICE/OUTPATIENT VISIT EST Diagnosis: B12 DEFIC ANEMIA NEC[ICD9: 281.1] Diagnosis: HYPERTENSION[ICD9: 401.9] Diagnosis: MALAISE AND FATIGUE[ICD9: 780.79] Diagnosis: OTHER ABNORMAL GLUCOSE[ICD9: 790.29] Tracie MARI SClark ORENDER DO [facility] CPT-4: 30512 09/17/2011 OFFICE/OUTPATIENT VISIT EST Diagnosis: NONVENOM ARTHROPOD BITE[ICD9: E906.4] Diagnosis: HYPERTENSION[ICD9: 401.9] Tracie CALVO NDER DO [facility] CPT-4: 04874 09/09/2011 PREV VISIT EST AGE 40-64 Tracie OBRIENE R DO [facility] CPT-4: 76692 08/29/2010 ([id number]) OFFICE/OUTPATIENT VISIT, EST Tracie CHAVEZ SClark ORENDER DO [facility] CPT-4: 67205 12/12/2009 ([id number]) OFFICE/OUTPATIENT VISIT, EST Tracie CHAVEZ S. ORENDER DO [facility] CPT-4: 96976 10/30/2009 ([id number]) OFFICE/OUTPATIENT VISIT, NEW Tracie CHAVEZ SClark ORENDER DO [facility] CPT-4: 35539 10/01/2009 Plan of Care Planned Activity Notes Codes Status Date Visit Diagnosis Plan: Pulmonary nodules Discussion: PE T scan results not available at time of visit- request sent to [facility]. Will call patient with results. Discussed probable referral to oncology and possible lymph node biopsy. F/U in ED for any severe symptoms. ICD-9 : 793.19 ICD-10 : R91.8 10/26/2020 Appointment: Estephanie Zaidi WPtel: [phone] [facility] FOLLOW UP 10/26/2020 Patient Education: Patient Medication Summary Completed 10/26/2020 Visit Plan: [facility]. Will send order for PET CT d/t lung masses and adenopathy Echo today for pericardial effusion Recheck CBC today d/t thrombocytopenia Continue Eliquis 10/22/2020 Visit NOS Plan: Plan Notes: Discussed labs a nd CT with pat... 10/22/2020 Appointment: Estephanie Zaidi WPtel: [phone] [facility] FOLLOW UP 10/22/2020 Patient Education: Patient Medication Summary Completed 10/22/2020 Care Plan: CT SOFT TISSUE NECK W/O DYE L OINC : 26667-6 Pending 10/22/2020 Visit Diagnosis Plan: Supraclavicular adenopathy Discu ssion: Will send for stat CT neck chest with contrast and labs at [facility] ICD-9 : 785.6 ICD-10 : R59.0 10/19/2020 Appointment: [facility]idi [facility] [phone] [facility] AC[facility] 10/19/2020 Patient Education: Patient Medication Summary Completed 10/19/2020 Visit Diagnosis Plan: Acute deep vein th rombosis (DVT) of femoral vein of right lower extremity Discussion: Pain and swelling markedly i mproved. Doing well, denies any concerns. Continue Eliquis 5 mg BID. F/U in 1 month or sooner for concerns. Discussed repeating doppler in November at 3 months. ICD-9 : 453.41 ICD-10 : I82.411 10/01/2020 Appointment: [facility]phanie [facility]idi [facility] [phone] [facility] [place] FOLLOW UP 10/01/2020 Patient Education: Patient Medication Summary Completed 10/01/2020 Visit Diagnosis Plan: Right leg DVT Discussion: Contin ue eliquis at 5mg po BID Recheck 1 week Discussed repeating US of RLE at 3mos and staying on eliquis until then Discussed clotting studies after off eliquis for 1month in future ICD-9 : 453.40 ICD-10 : I82.401 09/24/2020 Appointment: Tracie Keyes WPtel: [phone] [facility] [place] FO[facility] UP 09/24/2020 Visit Diagnosis Plan: On anticoagulant therapy Discuss ion: Continue eliquis 10 mg BID until Thursday, then eliquis 5 mg BID. F/U in 1 week or sooner for any concerns- increased pain, swelling, shortness of breath, chest pain. Will send tramadol for leg pain for prn use. ICD-9 : V58.61 ICD-10 : Z79.01 09/17/2020 Visit Diagnosis Plan: Acute deep vein th rombosis (DVT) of femoral vein of right lower extremity Discussion: Swelling decreasing. F/U 1 w [place] for recheck. ICD-9 : 453.41 ICD-10 : I82.411 09/17/2020 Appointment: Marthasteve Estephanie WPtel: [address] [facility] [place] [place] FOLLOW UP 09/17/2020 Patient Education: Patient Medication Summary Completed 09/17/2020 Patient Education: Eliquis- OptimizeRX Coupon [id number] [email or web address]/Wrapp/resources/getResource/61/[email or web address] Completed 09/17/2020 Patient Education: tramadol- Optimize[employer] Coupon [id number] https://www.Holograam/Wrapp/resources/getResource/61/aff62989-[email or web address] Completed 09/17/2020 Visit Diagnosis Plan: Acute deep vein th rombosis (DVT) of femoral vein of right lower extremity Discussion: Swelling has decreased some. Continue eliquis. F/U on Thursday for recheck- go to ED over weekend if you have shortness of breath, chest pain, increased leg pain, increased swelling, cold or discolored toes/foot, or any other concerns. ICD-9 : 453.41 ICD-10 : I82.411 09/14/2020 Appointment: Estephanie Zaidi WPtel: [phone] [facility] US FOLLOW UP 09/14/2020 Patient Education: Patient Medication Summary Completed 09/14/2020 Visit Diagnosis Plan: Right leg swelling Discussion: W ill send to [facility] for stat doppler to r/o DVT d/t swelling and pain and f/u with results. ICD-9 : 729.81 ICD-10 : M79.89 09/12/2020 Appointment: Estephanie Zaidi WPtel: [phone] [facility] ACUTE ILLNESS 09/12/2020 Patient Education: Patient Medication Summary Completed 09/12/2020 Visit Diagnosis Plan: Mixed hyperlipidemia Discussion: Check Lipids ICD-9 : 272.2 ICD-10 : E78.2 04/18/2020 Visit Diagnosis Plan: Hypertension Discussion: Increas e lisinopril to 40mg daily ICD-9 : 401.9 ICD-10 : I10 04/18/2020 Visit Diagnosis Plan: Hyperglycemia, unspecified Discu ssion: Check CMP, HbA1C Fwup pending lab results ICD-9 : 790.29 ICD-10 : R73.9 04/18/2020 Appointment: Tracie Keyes WPtel: [phone] [facility] US FOLLOW UP 04/18/2020 Patient Education: lisinopril- OptimizeRX Coupon [id number] [email or web address].CloudSync/samplemd/resources/getResource/61/[email or web address] Completed 04/18/2020 Visit Diagnosis Plan: Essential (primary) hypertension Discussion: Stable on lisinopril ICD-9 : 401.9 ICD-10 : I10 10/12/2019 Visit Diagnosis Plan: Encounter for gene ral adult medical examination without abnormal findings Discussion: Mediterranean diet Combinati on of cardio and weight bearing exercise Will return for fasting lab next week ICD-9 : V70.0 ICD-10 : Z00.00 10/12/2019 Visit Diagnosis Plan: Hyperglycemia, unspecified Discu ssion: Will return for HbA1C next week ICD-9 : 790.29 ICD-10 : R73.9 10/12/2019 Appointment: Tracie Keyes WPtel: [facility] Annual Well Visit 10/12/2019 Appointment: Viridiana Lima [address] [place] [address] FOLLOW UP 05/16/2019 Visit Diagnosis Plan: Pulmonary nodules Discussion: Re peat CT scan of chest in 3mos ICD-9 : 793.19 ICD-10 : R91.8 04/25/2019 Visit Diagnosis Plan: Hypertension Discussion: Restart lisinopril 20mg daily Recheck 3weeks ICD-9 : 401.9 ICD-10 : I10 04/25/2019 Visit Diagnosis Plan: Angelita Quinonez virus infection Dis cussion: Supportive care ICD-9 : 075 ICD-10 : B27.90 04/25/2019 Visit Diagnosis Plan: Cat scratch Discussion: Zithroma x for 1 week ICD-9 : 919.0 ICD-10 : W55.03XA 04/25/2019 Appointment: Tracie Keyes WPtel: [facility] [place] [id number] Hospital Follow Up 04/25/2019 Patient Education: nystatin- OptimizeRX Coupon [id number] https://www.Wrapp.com/samplemd/resources/getResource/61/[email or web address] Completed 04/25/2019 Visit Diagnosis Plan: Submandibular gland hypertrophy Discussion: Patient was told mumps at Urgent Care but not tested for mumps and given clindamycin and prednisone Sent directly to lab with mask to test for mumps Told needs to stay home away from others until diagnosis confirmed Offered admittance or IVFs since oral intake has been poor--patient states he will try oral hydration on his own today and report back tomorrow on how he is doing with that Understands he is to notify us or go to ER if there is any worsening--also understands he will need a CT scan of the neck if mumps negative and swelling persists ICD-9 : 527.1 ICD-10 : K11.1 04/12/2019 Appointment: Tracie Keyes WPtel: [address] [place], [place] [id number] 04/12/2019 Appointment: Tracie Keyes WPtel: [address] [place], [place] [phone] 08/09/2018 Visit Diagnosis Plan: Essential (primary) hypertension Discussion: Stable ICD-9 : 401.9 ICD-10 : I10 02/17/2018 Visit Diagnosis Plan: Encounter for [facility] adult medical examination without abnormal findings Discussion: Lab discussed Refuses prosta te check Refuses colonoscopy Will check with pharmacy on Shingrix/Flu shot and Prevnar ICD-9 : V70.0 ICD-10 : Z00.00 02/17/2018 Visit Diagnosis Plan: Hyperglycemia, unspecified Discu ssion: Wants to focus on diet/exercise and recheck in 6mos ICD-9 : 790.29 ICD-10 : R73.9 02/17/2018 Appointment: Tracie Keyes WPtel: [address] [place], [place] [phone] Annual Well Visit 02/17/2018 Appointment: Tracie Keyes WPtel: [address] [place], [place] [id number] [place] LAB 01/29/2018 Appointment: Tracie Keyes WPtel: [address] [place], [place] [id number] [place] LAB 05/01/2017 Patient Education: Patient Medication Summary Completed 05/01/2017 Visit Plan: Supportive care. Rest, Fluid s, Tylenol/Motrin prn fever or bodyaches. Notify if worsening symptoms. 04/07/2017 Visit Diagnosis Plan: URI, ACUTE Discussion: Breo 100/ 25mcg 1 p daily for 1 week Postpone eye surgery if worsening and notify us ICD-9 : 465.9 ICD-10 : J06.9 04/07/2017 Visit NOS Plan: Plan Notes: Supportive care. Rest, Fluids... 04/07/2017 Appointment: Tracie Keyes WPtel: [address] [place], [place] [phone] ACUTE ILLNESS 04/07/2017 Patient Education: Patient Medication Summary Completed 04/07/2017 Visit Plan: Had meds refilled for 6 joseph hs the other day. RTC 6 months Described s/s of heart disease that he would need to report for to us or ER/UC. 09/19/2016 Appointment: Ashley Crenshaw WPtel: [address] [place], [place] [phone] 09/18 lm`sl FOLLOW UP 09/19/2016 Patient Education: Patient Medication Summary Completed 09/19/2016 Appointment: Tracie Keyes WPtel: [address] [place], [place] [phone] US LAB 01/04/2016 Patient Education: Patient Medication Summary Completed 01/04/2016 Visit Plan: Will get flu shot at work Up date fasting lab 12/18/2015 Appointment: Tracie Keyes WPtel: [address] [place], [place] [phone] 12/16 lm~ FOLLOW UP 12/18/2015 Patient Education: Patient Medication Summary Completed 12/18/2015 Visit Plan: Pt declined rectal/prostate exam. Encouraged to get colonoscopy Plan labs for fall 2015 Continue on current meds but send in home B/P since today's B/P is elevated to see if dosage change is indicated. RTC in 6 months 07/20/2015 Appointment: Ashley Crenshaw WPtel: [facility] 07/18 lm ~ Annual Well Visit 07/20/2015 Patient Education: Patient Medication Summary Completed 07/20/2015 Visit Plan: Resume BP med Resume Metform in( has been off > 9 months) Add HgbA1C to labs drawn last week, Trial of Selinor for sleep. Will let us know how he does with it. 02/07/2015 Appointment: Jacque Lopez WPtel: [address] [place] [address] 02/06/15 vm cn....appt confirmed cn FOLLOW UP 02/07/2015 Patient Education: Patient Medication Summary Completed 02/07/2015 Patient Education: [facility] - Saving [employer] - Lisinopril - 18-64 - Dynamic Portal ID Completed 02/07/2015 Appointment: Tracie Keyes WPtel: [address] [place] [address] LAB 02/02/2015 Patient Education: Patient Medication Summary Completed 02/02/2015 Appointment: Jacque Lopez WPtel: [address] [place] [address] ACUTE ILLNESS 07/19/2014 Patient Education: Patient Medication Summary Completed 07/19/2014 Visit Plan: Restart Diltiazem Continue t o hydrate Call in 3 days on how doing 07/06/2014 Appointment: Tracie Keyes WPtel: [address] [place] [address] 07/05 appt confirmed cn FOLLOW UP 07/07/19 Patient Education: Patient Medication Summary Completed 07/06/2014 Visit Plan: Hold lisinopril hct Hydrate Recheck 2 days Meclizine 25mg q HS Hold metformin Call in AM 07/04/2014 Appointment: Tracie Keyes WPtel: [address] [place] [address] [place] FOLLOW UP 07/04/2014 Patient Education: Patient Medication Summary Completed 07/04/2014 Appointment: Tracie Keyes WPtel: [address] [place] [address] ACUTE ILLNESS 06/14/2014 Patient Education: Patient Medication Summary Completed 06/14/2014 Appointment: Tracie Keyes WPtel: [address] [place], [place] [phone] US FOLLOW UP 03/09/2014 Patient Education: Patient Medication Summary Completed 03/09/2014 Visit Plan: Continue metformin at curren t dose Accuchecks daily alternating times Diabetic diet info given Check CMP with HbA1C in 2mos then fwup 01/05/2014 Appointment: Tracie Keyes WPtel: [address] [place], [place] [phone] US FOLLOW UP 01/05/2014 Patient Education: Patient Medication Summary Completed 01/05/2014 Visit Plan: Did not need lab so will jus t fwup as scheduled 01/03/2014 Appointment: Tracie Keyes WPtel: [address] [place], [place] [phone] [place] LAB 01/03/2014 Patient Education: Patient Medication Summary Completed 01/03/2014 Appointment: Tracie Keyes WPtel: [address] [place], [place] [phone] [place] LAB 11/18/2013 Patient Education: Patient Medication Summary Completed 11/18/2013 Visit Plan: Continue current meds Remova l of splinter as above Keflex for 1 week Continue current meds Fwup next week for fasting lab including PSA 11/09/2013 Appointment: Tracie Keyes WPtel: [address] [place], [place] [phone] 11/08 Annual Well Visit 11/09/2013 Patient Education: Patient Medication Summary Completed 11/09/2013 Patient Education: [facility] - [employer]aving [employer] - Lisinopril - 18+ - Dynamic Portal ID Completed 11/09/2013 Appointment: Tracie Keyes WPtel: [address] [place], [place] [phone] 11/23 left message FOLLOW UP 11/24/2012 Patient Education: Patient Medication Summary Completed 11/24/2012 Appointment: Jacque Lopez WPtel: [address] [place] [address] FOLLOW UP 11/10/2012 Appointment: Jacque Lopez WPtel: [address] [place] [address] ACUTE ILLNESS 11/03/2012 Patient Education: Patient Medication Summary Completed 11/03/2012 Appointment: Liz Randall WPtel: [address] [place] [address] ACUTE ILLNESS 02/25/2012 Patient Education: Patient Medication Summary Completed 02/25/2012 Visit Plan: Finish abx Continue B12 OMT done Add Skelaxin 800mg q HS 10/08/2011 Appointment: Tracie Keyes WPtel: [address] [place] [address] [facility] FOLLOW UP 10/08/2011 Patient Education: Patient Medication Summary Completed 10/08/2011 Appointment: Tracie Keyes WPtel: [address] [place] [address] FOLLOW UP 09/24/2011 Patient Education: Patient Medication Summary Completed 09/24/2011 Appointment: Tracie Keyes WPtel: [address] [place] [address] LAB 09/17/2011 Patient Education: Patient Medication Summary Completed 09/17/2011 Visit Plan: 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 States had a red rash on upper left arm. Will return within next week or two. will do fasting lab: CBC, CMP, lipid and B12 level. Doxycycline and probiotic for now. Refil on meds. Will repeat BP reading when does fasting labs. 09/09/2011 Appointment: Liz Randall WPtel: [address] [place] [address] ACUTE ILLNESS 09/09/2011 Patient Education: Patient Medication Summary Completed 09/09/2011 Visit Plan: Change lisinopril hct to 20/ 12.5mg 2 daily and continue cardizem Check fasting lab--drawn today 08/29/2010 Appointment: Tracie Keyes WPtel: [address] [place], [place] [phone] [place] FOLLOW UP 08/29/2010 Patient Education: Patient Medication Summary Completed 08/29/2010 Appointment: Tracie Keyes WPtel: [address] [place], [place] [phone] [place] FOLLOW UP 12/12/2009 Patient Education: Patient Medication Summary Completed 12/12/2009 Appointment: Tracie Keyes WPtel: [address] [place], [place] [phone] US FOLLOW UP 11/27/2009 Visit Plan: Finish Abx B12 given Start d aily 1000mcg B12 Cont allopurinol and check B12 and uric acid in 1mo. 10/30/2009 Appointment: Tracie Keyes WPtel: [address] [place], [place] [phone] [place] FOLLOW UP 10/30/2009 Patient Education: Patient Medication Summary Completed 10/30/2009 Appointment: Tracie Keyes WPtel: [address] [place], [place] [phone] [place] NEW PATIENT 10/01/2009 Patient Education: Patient Medication Summary Completed 10/01/2009 Referral: Sav Olivo WPtel: [address] [facility] US Referral Initiated Instructions Comment . Discussed labs and CT with patient. Q uestions answered. Will send order for PET CT d/t lung masses and adenopathy Echo today for pericardial effusion Recheck CBC today d/t thrombocytopenia Continue Eliquis . Supportive care. Rest, Fluids, Tyleno l/Motrin prn fever or bodyaches. Notify if worsening symptoms. . Had meds refilled for 6 months the oth er day. RTC 6 months Described s/s of heart disease that he would need to report for to us or ER/UC. . Will get flu shot at work Update fasting lab . Pt declined rectal/prostate exam. Enc ouraged to get colonoscopy Plan labs for fall 2015 Continue on current meds but send in home B/P since today's B/P is elevated to see if dosage change is indicated. RTC in 6 months . Resume BP med Resume Metformin( has been off > 9 months) Add HgbA1C to labs drawn last week, Trial of Selinor for sleep. Will let us know how he does with it. . Restart Diltiazem Continue to hydrate Call in 3 days on how doing . Hold lisinopril hct Hydrate Recheck 2 days Meclizine 25mg q HS Hold metformin Call in AM . Continue metformin at current dose Accuchecks daily alternating times Diabetic diet info given Check CMP with HbA1C in 2mos then fwup . Did not need lab so will just fwup as scheduled . Continue current meds Removal of splinter as above Keflex for 1 week Continue current meds Fwup next week for fasting lab including PSA . Finish abx Continue B12 OMT done Add Skelaxin 800mg q HS . pt reports history of manjit mountain s potted fever 2 years ago. States had a red rash on upper left arm. Will return within next week or two. will do fasting lab: CBC, CMP, lipid and B12 level. Doxycycline and probiotic for now. Refil on meds. Will repeat BP reading when does fasting labs. . Change lisinopril hct to 20/12.5mg 2 d aily and continue cardizem Check fasting lab--drawn today . Finish Abx B12 given Start daily 1000mcg B12 Cont allopurinol and check B12 and uric acid in 1mo. Medical Equipment No Medical Equipment data Health Concerns Section Health Concerns data not found Goals Section Goals data not found Interventions Section Interventions data not found Health Status Evaluations/Outcomes Section Health Status Evaluations/Outcomes data not found Advance Directives No Advance Directive data
--- OUTSIDE RECORDS SUMMARY | 2020-11-05 09:32 | XMS REPORT | CCD ---
Author Author Josh Keyes D.O. Organization [facility] Address [address] [place] [address] Phone Care Team Providers Care Pharmacovigilance Specialist Name Role Phone Tracie Keyes D.O., PP Unavailable CCM Unavailable Summary Purpose Interface Exchange Insurance Providers Payer name Policy type / Coverage type Covered democrat ID Effective Begin Date Effective End Date WPS MEDICARE PART B [place] Medicare Part B [id number] Unknown [facility] Medicare Part B [id number] 2019 Un known Family history Sister Diagnosis Age At Onset seizure disorder Unknown Father Diagnosis Age At Onset Diabetes mellitus Type 2 Unknown Mother Diagnosis Age At Onset Diabetes mellitus Type 2 Unknown Social History Social History Element Codes Description Effective Dates Tobacco history SNOMED CT: 76011495 Currently smokes tobacco Marital status Unknown 10/01/2009 [...] E906.4 09/09/2011 Active Hypertension Unknown 10/01/2009 Active [place] spotted fever Unknown 07/24/2009 Act [place] B12 DEFIC ANEMIA NEC ICD-9: 281.1 10/01/2009 Active Hyperuricemia ICD-9: 790.6 10/01/2009 Active Myalgia ICD-9: 729.1 10/01/2009 Active [place] spotted fever ICD-9: 082.0 10/01/2009 Act [place] Medications Medication Codes Instructions Start Date Stop Date Status Fill Instructions Eliquis 5 mg tablet RxNorm: 5476959 Take 1 Tablet(s) Oral two ti mes a day 09/19/2020 12/17/2020 Active tramadol 50 mg tablet RxNorm: 440379 Take 1 Tablet(s) O ral Q8H as needed for pain Take with 2 tylenol 09/17/2020 No Stop Date Active Eliquis 5 mg tablet RxNorm: 2355950 Take 2 Tablet(s) Oral two ti mes a day 09/17/2020 No Stop Date Active lisinopril 40 mg tablet RxNorm: 748460 1 Tablet(s) Oral QD repl aces 20mg dose 04/18/2020 10/15/2020 Inactive Men's Multivitamin 400 mcg-20 mcg-300 mcg tablet RxNorm: 1 Tablet(s) Oral QD 04/18/2020 No Stop Date Active lisinopril 20 mg tablet RxNorm: 798113 1 Tablet(s) Oral QD 03/29/19 21 04/17/2020 Inactive Due for his 6 month appointm ent lisinopril 20 mg tablet RxNorm: 774407 TAKE ONE (1) TAB LET BY MOUTH DAILY... Needs fwup 10/03/2019 11/02/2019 Inactive lisinopril 20 mg tablet RxNorm: 103921 TAKE ONE (1) TABLET BY M OUTH DAILY... 10/03/2019 10/02/2019 Inactive Zithromax 500 mg tablet RxNorm: 020581 1 Tablet(s) Oral QD 04/25/19 20 05/02/2019 Inactive [AttnRPh: Saving apply/adjud icate RxGRP:SG20 RxBIN:[id number] RxPCN: ID#:[id number]] lisinopril 20 mg tablet RxNorm: 122890 1 Tablet(s) Oral QD 04/25/19 20 10/02/2019 Inactive nystatin 100,000 unit/mL oral suspension RxNorm: 604016 5 Milliliter(s) Oral four times a day swish, gargle and spit 04/25/2019 05/09/2019 Inactive diltiazem ER (XR/XT) 120 mg capsule,extended release 2 4 hr, controlled RxNorm: 526479 Capsule(s) 1 Capsule(s) PO QD 06/10/2018 10/11/2019 Inactive [SAVINGS FOR UNINSURED PATIENTS -- BIN:734231, PCN: ASPROD1, Group: AME08, ID# [id number], Process claim through [email or web address], for questions: . THIS IS NOT INSURANCE.] lisinopril 20 mg-hydrochlorothiazide 12.5 mg tablet RxNorm: 352109 1 Tablet(s) PO QAM 06/10/2018 10/11/2019 Inactive [AttnRPh: Saving apply/adjudicate RxGRP:SG20 RxBIN:[id number] RxPCN: ID#:[id number]] lisinopril 20 mg-hydrochlorothiazide 12.5 mg tablet RxNorm: 730098 1 Tablet(s) PO QAM 05/06/2017 01/30/2018 Inactive [AttnRPh: Saving apply/adjudicate RxGRP:SG20 RxBIN:[id number] RxPCN: ID#:[id number]] diltiazem ER (XR/XT) 120 mg capsule,extended release 2 4 hr, controlled RxNorm: 537602 Capsule(s) 1 Capsule(s) PO QD 05/06/2017 01/30/2018 Inactive [SAVINGS FOR UNINSURED PATIENTS -- BIN:779085, PCN: ASPROD1, Group: AME08, ID# [id number], Process claim through [employer], for questions: . THIS IS NOT INSURANCE.] diltiazem ER (XR/XT) 120 mg capsule,extended release 2 4 hr, controlled RxNorm: 112173 Capsule(s) 1 Capsule(s) PO QD 09/16/2016 03/14/2017 Inactive [SAVINGS FOR UNINSURED PATIENTS -- BIN:149672, PCN: ASPROD1, Group: AME08, ID# [id number], Process claim through [employer], for questions: . THIS IS NOT INSURANCE.] lisinopril 20 mg-hydrochlorothiazide 12.5 mg tablet RxNorm: 991832 1 Tablet(s) PO QAM 09/16/2016 03/14/2017 Inactive [AttnRPh: Saving apply/adjudicate RxGRP:SG20 RxBIN:[id number] RxPCN: ID#:[id number]] diltiazem ER (XR/XT) 120 mg capsule,extended release,control led RxNorm: 512736 1 Capsule(s) PO QD 04/09/2016 10/11/2019 Inactive [SAVINGS FOR UN INSURED PATIENTS -- BIN:767414, PCN: ASPROD1, Group: AME08, ID# [id number], Process claim through [employer], for questions: . THIS IS NOT INSURANCE.] diltiazem ER (XR/XT) 120 mg capsule,extended release,control led RxNorm: 977052 1 Capsule(s) PO QD 04/09/2016 09/15/2016 Inactive [SAVINGS FOR UN INSURED PATIENTS -- BIN:091542, PCN: ASPROD1, Group: AME08, ID# [id number], Process claim through [employer], for questions: . THIS IS NOT INSURANCE.] lisinopril 20 mg-hydrochlorothiazide 12.5 mg tablet RxNorm: 189647 1 Tablet(s) PO QAM 12/10/2015 06/06/2016 Inactive [AttnRPh: Saving apply/adjudicate RxGRP:SG20 RxBIN:[id number] RxPCN: ID#:[id number]] diltiazem ER (XR/XT) 120 mg capsule,extended release,control led RxNorm: 388038 1 Capsule(s) PO QD 02/07/2015 02/01/2016 Inactive [SAVINGS FOR UN INSURED PATIENTS -- BIN:505283, PCN: ASPROD1, Group: AME08, ID# [id number], Process claim through [employer]Imp[employer], for questions: . THIS IS NOT INSURANCE.] lisinopril 20 mg-hydrochlorothiazide 12.5 mg tablet RxNorm: 284358 1 Tablet(s) PO QAM 02/07/2015 12/09/2015 Inactive [AttnRPh: Saving apply/adjudicate RxGRP:SG20 RxBIN:[id number] RxPCN: ID#:[id number]] metformin ER 1,000 mg 24 hr tablet,extended release RxNorm: 420257 1 Tablet(s) PO QD 02/07/2015 07/19/2015 Inactive [SAVINGS FOR UNI NSURED PATIENTS -- BIN:660458, PCN: ASPROD1, Group: AME08, ID# [id number], Process claim through [employer], for questions: . THIS IS NOT INSURANCE.] diltiazem ER (XR/XT) 120 mg capsule,extended release,control led RxNorm: 174967 1 Capsule(s) PO QD 12/28/2014 02/06/2015 Inactive [SAVINGS FOR UN INSURED PATIENTS -- BIN:590452, PCN: ASPROD1, Group: AME08, ID# [id number], Process claim through [employer], for questions: . THIS IS NOT INSURANCE.] lisinopril 20 mg-hydrochlorothiazide 12.5 mg tablet RxNorm: 900209 1 Tablet(s) PO QAM 11/20/2014 10/11/2019 Inactive cefdinir 300 mg capsule RxNorm: 900420 2 Capsule(s) PO QD 07/19/2014 07/28/2014 Inactive [SAVINGS FOR NON-COVERED DRUGS -- BIN:00 3585, PCN: ASPROD1, Group: XXXXX, ID# [id number], Questions: . THIS IS NOT INSURANCE.] meclizine 25 mg tablet RxNorm: 698367 1 Tablet(s) PO QHS 07/04/2014 0 10/31/2014 Inactive [SAVINGS FOR NON-COVERED DRUGS -- BIN:00 3585, PCN: ASPROD1, Group: XXXXX, ID# [id number], Questions: . THIS IS NOT INSURANCE.] allopurinol 300 mg tablet RxNorm: 231554 1 Tablet(s) PO QD 06/17/19 15 06/15/2014 Inactive allopurinol 300 mg tablet RxNorm: 874894 1 Tablet(s) PO QD 06/17/19 15 02/06/2015 Inactive [SAVINGS FOR NON-COVERED TATYANA GS -- BIN:239626, PCN: ASPROD1, Group: XXXXX, ID# [id number], Questions: . THIS IS NOT INSURANCE.] naproxen 500 mg tablet RxNorm: 449011 1 Tablet(s) PO BID 06/16/2014 0 07/19/2015 Inactive [SAVINGS FOR NON-COVERED DRUGS -- BIN:00 3585, PCN: ASPROD1, Group: XXXXX, ID# [id number], Questions: . THIS IS NOT INSURANCE.] metformin ER 1,000 mg 24 hr tablet,extended release RxNorm: 968166 1 Tablet(s) PO QD 03/14/2014 02/06/2015 Inactive [SAVINGS FOR UNI NSURED PATIENTS -- BIN:860431, PCN: ASPROD1, Group: AME08, ID# [id number], Process claim through MedImpact, for questions: . THIS IS NOT INSURANCE.] metformin ER 500 mg tablet,extended release 24hr RxNorm: 860 975 1 Tablet(s) PO QD 01/05/2014 03/13/2014 Inactive [SAVINGS FOR UNI NSURED PATIENTS -- BIN:538234, PCN: ASPROD1, Group: AME08, ID# [id number], Process claim through MedImpact, for questions: . THIS IS NOT INSURANCE.] metformin ER 500 mg tablet,extended release 24hr RxNorm: 860 975 1 Tablet(s) PO QD 11/28/2013 01/04/2014 Inactive [SAVINGS FOR UNI NSURED PATIENTS -- BIN:296912, PCN: ASPROD1, Group: AME08, ID# [id number], Process claim through MedImpact, for questions: . THIS IS NOT INSURANCE.] Keflex 500 mg capsule RxNorm: 807799 1 Capsule(s) PO TID 11/09/2013 0 11/15/2013 Inactive [SAVINGS FOR UNINSURED PATIENTS -- BIN:0 25684, PCN: ASPROD1, Group: AME08, ID# [id number], Process claim through [employer]Impact, for questions: . THIS IS NOT INSURANCE.] diltiazem ER (XR/XT) 120 mg capsule,extended release,control led RxNorm: 966211 1 Capsule(s) PO QD 11/09/2013 11/03/2014 Inactive [SAVINGS FOR UN INSURED PATIENTS -- BIN:294148, PCN: ASPROD1, Group: MONSERRATEIan, ID# [id number], Process claim through MedImpact, for questions: . THIS IS NOT INSURANCE.] lisinopril 20 mg-hydrochlorothiazide 12.5 mg tablet RxNorm: 065300 2 Tablet(s) PO QAM 11/09/2013 11/20/2014 Inactive [AttnRPh: Saving apply/adjudicate RxGRP:SG20 RxBIN:[id number] RxPCN: ID#:[id number]] diltiazem ER (XR/XT) 120 mg capsule,extended release,control led RxNorm: 288682 1 Capsule(s) PO QD -need labs 10/31/2013 11/08/2013 Inactive [DELICIA INGS FOR UNINSURED PATIENTS -- BIN:907053, PCN: ASPROD1, Group: TRAN, ID# [id number], Process claim through MedImpact, for questions: . THIS IS NOT INSURANCE.] lisinopril 20 mg-hydrochlorothiazide 12.5 mg tablet RxNorm: 965877 2 Tablet(s) PO QAM 10/31/2013 11/08/2013 Inactive [AttnRPh: Saving apply/adjudicate RxGRP:SG20 RxBIN:[id number] RxPCN: ID#:[id number]] diltiazem ER (XR/XT) 120 mg capsule,extended release,control led RxNorm: 613326 1 Capsule(s) PO QD -need labs 09/12/2013 10/11/2013 Inactive [DELICIA INGS FOR UNINSURED PATIENTS -- BIN:531925, PCN: ASPROD1, Group: AME08, ID# [id number], Process claim through MedImpact, for questions: . THIS IS NOT INSURANCE.] Omnicef 300 mg capsule RxNorm: 263566 2 Capsule(s) PO QD 11/24/2012 0 11/08/2013 Inactive naproxen 500 mg tablet RxNorm: 750576 1 Tablet(s) PO TID 11/04/2012 0 11/03/2012 Inactive allopurinol 100 mg tablet RxNorm: 867095 1 Tablet(s) PO BID 013 11/08/2013 Inactive naproxen 500 mg tablet RxNorm: 769166 1 Tablet(s) PO TID 11/04/2012 0 11/08/2013 Inactive diltiazem ER (XR/XT) 120 mg capsule,extended release,control led RxNorm: 907022 1 Capsule(s) PO QD 08/02/2012 09/12/2013 Inactive lisinopril 20 mg-hydrochlorothiazide 12.5 mg tablet RxNorm: 518831 2 Tablet(s) PO QAM 08/02/2012 07/27/2013 Inactive acyclovir 800 mg tablet RxNorm: 225497 1 Tablet(s) PO D Take 1 tablet by mouth 5 times daily 02/26/2012 11/02/2012 Inactive acyclovir 800 mg tablet RxNorm: 516859 1 Tablet(s) PO D 02/25/2012 Inactive clindamycin 300 mg capsule RxNorm: 949795 1 Capsule(s) PO TID 02/2403/02/2012 Inactive lisinopril-hydrochlorothiazide 20 mg-12.5 mg tablet RxNorm: 880529 2 Tablet(s) PO QAM 01/30/2012 08/01/2012 Inactive diltiazem ER (XR/XT) 120 mg capsule,extended release,control led RxNorm: 371698 1 Capsule(s) PO QD 01/30/2012 08/01/2012 Inactive lisinopril-hydrochlorothiazide 20 mg-12.5 mg tablet RxNorm: 374012 2 Tablet(s) PO QAM 01/30/2012 10/11/2019 Inactive diltiazem ER (XR/XT) 120 mg capsule,extended release,control led RxNorm: 264114 1 Capsule(s) PO QD 01/30/2012 10/11/2019 Inactive Culturelle 10 billion cell capsule RxNorm: 207127 1 Capsule(s) PO Q D 10/16/2011 02/24/2012 Inactive Omnicef 300 mg capsule RxNorm: 741243 2 Capsule(s) PO QD 09/24/2011 0 11/02/2012 Inactive diltiazem ER (XR/XT) 120 mg capsule,extended release,control led RxNorm: 672818 1 Capsule(s) PO QD 09/09/2011 01/29/2012 Inactive Culturelle 10 billion cell Cap RxNorm: 625207 1 Capsule (s) PO BID take a few hours after Doxycycline. Probiotic 09/09/2011 09/28/2011 Inactive lisinopril-hydrochlorothiazide 20 mg-12.5 mg tablet RxNorm: 066791 2 Tablet(s) PO QAM 09/09/2011 01/29/2012 Inactive doxycycline hyclate 100 mg Tab RxNorm: 4630176 1 Tablet( s) PO BID antibiotic. (may make a little sensitive to sunburn) 09/09/2011 09/18/2011 Inactiv e lisinopril-hydrochlorothiazide 20 mg-12.5 mg Tab RxNorm: 197 886 2 Tablet(s) PO QAM Due for yearly check-up 09/08/2011 09/08/2011 Inactive diltiazem ER (XR/XT) 120 mg Continuous Release Cap RxNorm: 8 18300 1 Capsule(s) PO QD Due for yearly check-up. 09/08/2011 09/08/2011 Inactive diltiazem ER (XR/XT) 120 mg Continuous Release Cap RxNorm: 8 98918 1 Capsule(s) PO QD 08/29/2010 08/23/2011 Inactive lisinopril-hydrochlorothiazide 20 mg-12.5 mg Tab RxNorm: 197 886 2 Tablet(s) PO QAM 08/29/2010 08/23/2011 Inactive lisinopril-hydrochlorothiazide 20 mg-25 mg Tab RxNorm: 066834 1 Tablet(s) PO QD 08/21/2010 08/28/2010 Inactive allopurinol 100 mg tablet RxNorm: 555594 1 Tablet(s) PO QD 04/22/19 11 08/28/2010 Inactive allopurinol 100 mg Tab RxNorm: 440619 1 Tablet(s) PO QD 12/18/2009 Inactive Allopurinol 100 mg Tab RxNorm: 901564 1 Tablet(s) PO QD 12/12/2009 Inactive Allopurinol 100 mg Tab RxNorm: 533248 1 Tablet(s) PO QD 10/30/2009 Inactive Omnicef 300 mg Cap RxNorm: 117539 2 Capsule(s) PO QD 10/01/200910/29 Inactive Allopurinol 100 mg Tab RxNorm: 443337 1 Tablet(s) PO QD 10/01/2009 Inactive Vitamin D3 oral RxNorm: 2418 oral 04/18/2020 Active Vitamin C oral RxNorm: 1151 oral 04/18/2020 Active Vitamin B12 1000mcg Tablet RxNorm: 1 Tablet(s) PO QD 08/29/2010 Inactive lisinopril 20 mg-hydrochlorothiazide 12.5 mg tablet RxNorm: 174886 1 Tablet(s) PO QAM 11/20/2014 11/19/2014 Inactive Medrol (Sid) 4 mg tablets in a dose pack RxNorm: 051381 Tablet(s) PO as directed 11/09/2013 11/08/2013 Inactive Omnicef 300 mg Cap RxNorm: 328935 2 Capsule(s) PO QD 09/24/201112/11 Inactive Fish Oil 1,000 mg Cap RxNorm: 1 Capsule(s) PO QD 11/09/20132013 Inactive diltiazem ER (XR/XT) 120 mg Continuous Release Cap RxNorm: 8 89919 1 Capsule(s) PO QD 08/29/2010 08/28/2010 Inactive Culturelle 10 billion cell capsule RxNorm: 484602 1 Capsule(s) PO Q D 11/03/2012 11/02/2012 Inactive metformin ER 500 mg tablet,extended release 24hr RxNorm: 860 975 1 Tablet(s) PO QD 11/28/2013 11/27/2013 Inactive Lisinopril Oral RxNorm: Oral 10/01/2009 10/01/2009 Inactive Vitamin B12 1000mcg Tablet RxNorm: 1 Tablet(s) PO QD 12/18/2015 Inactive Vitamin B12 1000mcg Tablet RxNorm: 1 Tablet(s) PO QD 11/09/2013 Inactive lisinopril-hydrochlorothiazide 20 mg-25 mg Tab RxNorm: 882284 1 Tablet(s) PO QD 08/21/2010 2010 Inactive metformin ER 1,000 mg 24 hr tablet,extended release RxNorm: 821198 1 Tablet(s) PO QD 03/14/2014 03/13/2014 Inactive Fish Oil 1,000 mg capsule RxNorm: 1 Capsule(s) PO QD 12/18/2015 Inactive Medication Administered No Medication Administered data Immunizations Vaccine Codes Date Status B12 Unknown 09/24/2011 Results Observation Observation Code Item Item Code Result Date S ervice Location GLYCOSYLATED HEMOGLOBIN TEST 13855 Hgb A1c 65752-0 5.7 % 0 04/18/2020 Unknown GFR CALC 1061029 GFR Non Afr Amr >60 mL/min 04/18/2020 Un known GFR CALC 7777688 GFR Afr Amr >60 mL/min 04/18/2020 Unknow n COMPREHENSIVE METABOLIC 88424 AST 35 U/L 2020 Unknown COMPREHENSIVE METABOLIC 05159 ALT 45 U/L 2020 Unknown COMPREHENSIVE METABOLIC 56714 BUN 10 mg/dL 2020 Unknown COMPREHENSIVE METABOLIC 09139 ALBUMIN 4.3 g/dL 2020 Unknown COMPREHENSIVE METABOLIC 42432 CHLORIDE 101 mmol/L 04/18 Unknown COMPREHENSIVE METABOLIC 49839 Bili Total 0.8 mg/dL 04/18 Unknown COMPREHENSIVE METABOLIC 12428 ALK PHOS 73 U/L 2020 Unknown COMPREHENSIVE METABOLIC 75328 SODIUM 137 mmol/L 04/18 Unknown COMPREHENSIVE METABOLIC 51510 CREATININE 0.99 mg/dL 03/27 Unknown COMPREHENSIVE METABOLIC 31457 CALCIUM 9.1 mg/dL 2020 Unknown COMPREHENSIVE METABOLIC 20368 POTASSIUM 4.3 mmol/L 04/18 Unknown COMPREHENSIVE METABOLIC 01801 Total Protein 7.0 g/dL Unknown COMPREHENSIVE METABOLIC 10262 Glucose 133 mg/dL 2020 Unknown COMPREHENSIVE METABOLIC 61013 Bicarbonate 26 mmol/L 03/27 Unknown COMPREHENSIVE METABOLIC 35552 AGAP 10 mmol/L 2020 Unknown MEAN GLUC 3705176 Calc Mean Gluc 117 mg/dL 04/18/2020 Unkn own [facility] 56780 Cholesterol 187 mg/dL 04/18/2020 Unkno wn [facility] 78829 Triglyceride 87 mg/dL 04/18/2020 Unkn own [facility] 62140 HDL CHOLESTEROL 59 mg/dL 04/18/2020 U nknown L[facility] 52487 Chol/HDL Ratio 3.17 ratio 04/18/2020 U nknown LIP[facility] GROUP 87717 NON-HDL Chol 128 mg/dL 04/18/2020 Unkn own [facility] 26150 LDL Cholesterol 111 mg/dL 04/18/2020 U nknown HEPATITIS C ANTIBODY 14538 Hepatitis C Ab Non-Reactive 02/01/2018 Unknown GLYCOSYLATED HEMOGLOBIN TEST 61563 Hgb A1c 73941-1 6.2 % 1 04/01/2017 Unknown GFR CALC 0382659 GFR Non Afr Amr >60 mL/min 01/29/2018 Un known GFR CALC 1057053 GFR Afr Amr >60 mL/min 01/29/2018 Unknow n COMPREHENSIVE METABOLIC 03506 AST 17 U/L 2017 Unknown COMPREHENSIVE METABOLIC 32580 ALT 17 U/L 2017 Unknown COMPREHENSIVE METABOLIC 91524 BUN 12 mg/dL 2017 Unknown COMPREHENSIVE METABOLIC 79801 ALBUMIN 4.6 g/dL 2017 Unknown COMPREHENSIVE METABOLIC 99484 CHLORIDE 101 mmol/L 01/29 Unknown COMPREHENSIVE METABOLIC 29096 Bili Total 0.9 mg/dL 01/29 Unknown COMPREHENSIVE METABOLIC 10831 ALK PHOS 57 U/L 2017 Unknown COMPREHENSIVE METABOLIC 09719 SODIUM 136 mmol/L 01/29 Unknown COMPREHENSIVE METABOLIC 49741 CREATININE 1.00 mg/dL 08/2017 Unknown COMPREHENSIVE METABOLIC 38645 CALCIUM 9.6 mg/dL 2017 Unknown COMPREHENSIVE METABOLIC 93450 POTASSIUM 4.2 mmol/L 01/29 Unknown COMPREHENSIVE METABOLIC 07101 Total Protein 6.9 g/dL Unknown COMPREHENSIVE METABOLIC 54033 Glucose 128 mg/dL 2017 Unknown COMPREHENSIVE METABOLIC 39242 Bicarbonate 27 mmol/L 08/2017 Unknown COMPREHENSIVE METABOLIC 16561 AGAP 8 mmol/L 2017 Unknown LIPID GROUP 31434 Cholesterol 168 mg/dL 01/29/2018 Unkno wn LIPID GROUP 09760 Triglyceride 82 mg/dL 01/29/2018 Unkn own LIPID GROUP 33462 HDL CHOLESTEROL 43 mg/dL 01/29/2018 U nknown LIPID GROUP 73168 Chol/HDL Ratio 3.91 ratio 01/29/2018 U nknown LIPID GROUP 09182 NON-HDL Chol 125 mg/dL 01/29/2018 Unkn own LIPID GROUP 88449 LDL Cholesterol 109 mg/dL 01/29/2018 U nknown MEAN GLUC 6640296 Calc Mean Gluc 131 mg/dL 01/29/2018 Unkn own LIPID GROUP 57394 Cholesterol 164 mg/dL 05/01/2017 Unkno wn LIPID GROUP 26028 Triglyceride 131 mg/dL 05/01/2017 Unkn own LIPID GROUP 05538 HDL CHOLESTEROL 45 mg/dL 05/01/2017 U nknown LIPID GROUP 59382 Chol/HDL Ratio 3.64 ratio 05/01/2017 U nknown LIPID GROUP 21190 NON-HDL Chol 119 mg/dL 05/01/2017 Unkn own LIPID GROUP 35473 LDL Cholesterol 93 mg/dL 05/01/2017 U nknown COMPLETE BLOOD COUNT 5019986 WBC 4.9 10e9/L 05/02/19 18 Unknown COMPLETE BLOOD COUNT 6628247 RBC 4.31 10e12/L 2017 Unknown COMPLETE BLOOD COUNT 3281592 HEMOGLOBIN 14.3 g/dL 05/02/19 18 Unknown COMPLETE BLOOD COUNT 1767621 HEMATOCRIT 42.8 % 05/02/19 18 Unknown COMPLETE BLOOD COUNT 3351526 MCV 99.3 fL 8 Unknown COMPLETE BLOOD COUNT 4616082 MCH 33.2 pg 8 Unknown COMPLETE BLOOD COUNT 2907978 MCHC 33.4 g/dL 8 Unknown COMPLETE BLOOD COUNT 8434566 PLATELET COUNT 241 10e9/L 10/2017 Unknown COMPLETE BLOOD COUNT 8033828 Mean Plt Volume 11.0 fL 10/2017 Unknown COMPLETE BLOOD COUNT 4467998 Neut Auto 56.6 % 8 Unknown COMPLETE BLOOD COUNT 7543510 Lymph Auto 24.7 % 05/02/19 18 Unknown COMPLETE BLOOD COUNT 1048638 [place] Auto 11.6 % 8 Unknown COMPLETE BLOOD COUNT 6182875 RDW 13.2 % 8 Unknown COMPLETE BLOOD COUNT 9428884 Eos Auto 6.9 % 8 Unknown COMPLETE BLOOD COUNT 8667209 Baso Auto 0.2 % 8 Unknown COMPLETE BLOOD COUNT 5793948 Neutrophil Abs 2.77 10e9/L Unknown COMPLETE BLOOD COUNT 6361805 Lymphocyte Abs 1.21 10e9/L Unknown COMPLETE BLOOD COUNT 6182255 Monocyte Abs 0.57 10e9/L 10/2017 Unknown COMPLETE BLOOD COUNT 9014054 Eosinophil Abs 0.34 10e9/L Unknown COMPLETE BLOOD COUNT 5124839 RDW-SD 47.2 fL 8 Unknown COMPLETE BLOOD COUNT 5051688 Basophil Abs 0.01 10e9/L 10/2017 Unknown GLYCOSYLATED HEMOGLOBIN TEST 68634 Hgb A1c 61483-4 6.0 % 0 05/01/2017 Unknown GFR CALC 3086334 GFR Non Afr Amr >60 mL/min 05/01/2017 Un known GFR CALC 8900369 GFR Afr Amr >60 mL/min 05/01/2017 Unknow n MEAN GLUC 1890645 Calc Mean Gluc 126 mg/dL 05/01/2017 Unkn own COMPREHENSIVE METABOLIC 42299 AST 17 U/L 2017 Unknown COMPREHENSIVE METABOLIC 67138 ALT 16 U/L 2017 Unknown COMPREHENSIVE METABOLIC 40911 BUN 13 mg/dL 2017 Unknown COMPREHENSIVE METABOLIC 55996 ALBUMIN 3.9 g/dL 2017 Unknown COMPREHENSIVE METABOLIC 97749 CHLORIDE 104 mmol/L 05/01 Unknown COMPREHENSIVE METABOLIC 86400 Bili Total 0.7 mg/dL 05/01 Unknown COMPREHENSIVE METABOLIC 38241 ALK PHOS 58 U/L 2017 Unknown COMPREHENSIVE METABOLIC 26524 SODIUM 139 mmol/L 05/01 Unknown COMPREHENSIVE METABOLIC 11711 CREATININE 0.99 mg/dL 10/2017 Unknown COMPREHENSIVE METABOLIC 90277 CALCIUM 9.5 mg/dL 2017 Unknown COMPREHENSIVE METABOLIC 97345 POTASSIUM 4.3 mmol/L 05/01 Unknown COMPREHENSIVE METABOLIC 59205 Total Protein 6.7 g/dL Unknown COMPREHENSIVE METABOLIC 69439 Glucose 110 mg/dL 2017 Unknown COMPREHENSIVE METABOLIC 87160 Bicarbonate 27 mmol/L 10/2017 Unknown COMPREHENSIVE METABOLIC 12632 AGAP 8 mmol/L 2017 Unknown PSA EQUIMOLAR NITHIN 71831 PSA Total 1.10 ng/mL 8 Unknown THYROID STIMULATING HORMONE 73258 TSH 0.673 uIU/mL 05/01/2017 Unknown GLYCOSYLATED HEMOGLOBIN TEST 91927 Hgb A1c 06452-1 5.8 % 1 03/08/2015 Unknown MEAN GLUC 9616925 Calc Mean Gluc 120 mg/dL 01/07/2016 Unkn own FREE T4 48989 T4 Free 1.13 ng/dL 01/04/2016 Unknown THYROID STIMULATING HORMONE 55956 TSH 0.875 uIU/mL 01/04/2016 Unknown COMPREHENSIVE METABOLIC 12793 AST 20 U/L 2015 Unknown COMPREHENSIVE METABOLIC 00712 ALT 20 U/L 2015 Unknown COMPREHENSIVE METABOLIC 57792 BUN 14 mg/dL 2015 Unknown COMPREHENSIVE METABOLIC 45492 ALBUMIN 4.4 g/dL 2015 Unknown COMPREHENSIVE METABOLIC 01610 CHLORIDE 103 mmol/L 01/03 Unknown COMPREHENSIVE METABOLIC 51145 Bili Total 0.5 mg/dL 01/03 Unknown COMPREHENSIVE METABOLIC 10227 ALK PHOS 53 U/L 2015 Unknown COMPREHENSIVE METABOLIC 93364 SODIUM 137 mmol/L 01/03 Unknown COMPREHENSIVE METABOLIC 07019 CREATININE 0.98 mg/dL 12/24 Unknown COMPREHENSIVE METABOLIC 58490 CALCIUM 9.6 mg/dL 2015 Unknown COMPREHENSIVE METABOLIC 10385 POTASSIUM 4.5 mmol/L 01/03 Unknown COMPREHENSIVE METABOLIC 46757 Total Protein 7.0 g/dL Unknown COMPREHENSIVE METABOLIC 11606 Glucose 117 mg/dL 2015 Unknown COMPREHENSIVE METABOLIC 93160 Bicarbonate 26 mmol/L 12/24 Unknown COMPREHENSIVE METABOLIC 92613 AGAP 8 mmol/L 2015 Unknown COMPLETE BLOOD COUNT 6921818 WBC 6.2 10e9/L 01/04/20 16 Unknown COMPLETE BLOOD COUNT 3292595 RBC 4.55 10e12/L 2015 Unknown COMPLETE BLOOD COUNT 7617638 HEMOGLOBIN 15.0 g/dL 01/04/20 16 Unknown COMPLETE BLOOD COUNT 0065877 HEMATOCRIT 43.8 % 01/04/20 16 Unknown COMPLETE BLOOD COUNT 3137102 MCV 96.3 fL 6 Unknown COMPLETE BLOOD COUNT 6330340 MCH 33.0 pg 6 Unknown COMPLETE BLOOD COUNT 8084736 MCHC 34.2 g/dL 6 Unknown COMPLETE BLOOD COUNT 5143452 PLATELET COUNT 259 10e9/L 12/2015 Unknown COMPLETE BLOOD COUNT 5289050 Mean Plt Volume 10.8 fL 12/2015 Unknown COMPLETE BLOOD COUNT 8612434 Neut Auto 62.4 % 6 Unknown COMPLETE BLOOD COUNT 3528314 Lymph Auto 25.9 % 01/04/20 16 Unknown COMPLETE BLOOD COUNT 4513160 [place] Auto 6.8 % 6 Unknown COMPLETE BLOOD COUNT 5496560 RDW 13.4 % 6 Unknown COMPLETE BLOOD COUNT 4896786 Eos Auto 4.9 % 6 Unknown COMPLETE BLOOD COUNT [id number] Baso Auto 0.0 % 6 Unknown COMPLETE BLOOD COUNT [id number] Neutrophil Abs 3.87 10e9/L Unknown COMPLETE BLOOD COUNT [id number] Lymphocyte Abs 1.61 10e9/L Unknown COMPLETE BLOOD COUNT [id number] Monocyte Abs 0.42 10e9/L 12/24 Unknown COMPLETE BLOOD COUNT [id number] Eosinophil Abs 0.30 10e9/L Unknown COMPLETE BLOOD COUNT [id number] RDW-SD 46.2 fL 6 Unknown COMPLETE BLOOD COUNT [id number] Basophil Abs 0.00 10e9/L 12/24 Unknown PSA EQUIMOLAR NITHIN 51216 PSA Total 1.14 ng/mL 6 Unknown GFR CALC [id number] GFR Non Afr Amr >60 mL/min 01/04/2016 Un known GFR CALC [id number] GFR Afr Amr >60 mL/min 01/04/2016 Unknow n [facility] 20358 Cholesterol 172 mg/dL 01/04/2016 Unkno wn [facility] 41558 Triglyceride 156 mg/dL 01/04/2016 Unkn own [facility] 23923 HDL CHOLESTEROL 42 mg/dL 01/04/2016 U nknown L[facility] 83491 Chol/HDL Ratio 4.10 ratio 01/04/2016 U nknown L[facility] GROUP 96860 NON-HDL Chol 130 mg/dL 01/04/2016 Unkn own L[facility] GROUP 25478 LDL Cholesterol 99 mg/dL 01/04/2016 U nknown GLYCOSYLATED HEMOGLOBIN TEST 59104 A1C HPLC 58751-2 5.8 % 1 04/10/2014 Unknown COMPLETE BLOOD COUNT [id number] WBC 6.0 10e9/L 02/03/20 15 Unknown COMPLETE BLOOD COUNT [id number] RBC 4.39 10e12/L 2014 Unknown COMPLETE BLOOD COUNT [id number] HGB 14.3 g/dL 5 Unknown COMPLETE BLOOD COUNT [id number] HCT DET 41.7 % 5 Unknown COMPLETE BLOOD COUNT 3034307 MCV 95.0 fL 5 Unknown COMPLETE BLOOD COUNT [id number] MCH 32.6 pg 5 Unknown COMPLETE BLOOD COUNT [id number] MCHC 34.3 g/dL 5 Unknown COMPLETE BLOOD COUNT [id number] PLT 272 10e9/L 02/03/20 15 Unknown COMPLETE BLOOD COUNT [id number] MPV 11.1 fL 5 Unknown COMPLETE BLOOD COUNT [id number] GARY % 62.7 % 5 Unknown COMPLETE BLOOD COUNT [id number] LY % 25.2 % 5 Unknown COMPLETE BLOOD COUNT [id number] MON % 7.9 % 5 Unknown COMPLETE BLOOD COUNT [id number] EOS % 4.0 % 5 Unknown COMPLETE BLOOD COUNT [id number] BASO % 0.2 % 5 Unknown COMPLETE BLOOD COUNT 6135473 RDW 13.2 % 5 Unknown COMPLETE BLOOD COUNT [id number] ABS GARY 3.76 10e9/L 015 Unknown COMPLETE BLOOD COUNT [id number] ABS LYMPH 1.51 10e9/L 015 Unknown COMPLETE BLOOD COUNT [id number] ABS MONO 0.47 10e9/L 015 Unknown COMPLETE BLOOD COUNT [id number] ABS EOS 0.24 10e9/L 015 Unknown COMPLETE BLOOD COUNT [id number] ABS BASO 0.01 10e9/L 015 Unknown COMPLETE BLOOD COUNT [id number] RDW-SD 44.7 fL 5 Unknown GFR CALC 9893434 GFR AA >60 ML/MIN 02/02/2015 Unknown GFR CALC 0942040 GFR NON-AA >60 ML/MIN 02/02/2015 Unknown THYROID STIMULATING HORMONE 02542 TSH 0.970 uIU/ML 02/02/2015 Unknown LIPID GROUP 88895 HDL TEST 41 MG/DL 02/02/2015 Unknown LIPID GROUP 61074 TRIG 151 MG/DL 02/02/2015 Unknown LIPID GROUP 25268 TEST LDL 122 MG/DL 02/02/2015 Unknown LIPID GROUP 03464 CHOL 193 MG/DL 02/02/2015 Unknown LIPID GROUP 31242 RCHOL/HDL 4.71 RATIO 02/02/2015 Unknow n LIPID GROUP 54118 NON-HDL CH 152 MG/DL 02/02/2015 Unknow n PSA EQUIMOLAR NITHIN 84192 PSA EQ 0.76 NG/ML 5 Unknown FREE T4 73777 FREE T4 0.93 NG/DL 02/02/2015 Unknown COMPREHENSIVE METABOLIC 08531 AST 21 U/L 2014 Unknown COMPREHENSIVE METABOLIC 15956 ALT 21 IU/L 2014 Unknown COMPREHENSIVE METABOLIC 46511 BUN 15 MG/DL 2014 Unknown COMPREHENSIVE METABOLIC 57964 ALBUMIN 4.5 GM/DL 2014 Unknown COMPREHENSIVE METABOLIC 51100 CHLORIDE 104 MMOL/L 02/02 Unknown COMPREHENSIVE METABOLIC 11100 BILI TOT 1.0 MG/DL 2014 Unknown COMPREHENSIVE METABOLIC 70325 ALK PHOS 71 U/L 2014 Unknown COMPREHENSIVE METABOLIC 03025 SODIUM 136 MMOL/L 02/02 Unknown COMPREHENSIVE METABOLIC 70672 CREATININE 0.94 MG/DL 01/23 Unknown COMPREHENSIVE METABOLIC 89934 CALCIUM 9.8 MG/DL 2014 Unknown COMPREHENSIVE METABOLIC 08582 POTASSIUM 4.3 MMOL/L 02/02 Unknown COMPREHENSIVE METABOLIC 44466 PROT TOT 6.9 GM/DL 2014 Unknown COMPREHENSIVE METABOLIC 81346 Glucose 113 MG/DL 2014 Unknown COMPREHENSIVE METABOLIC 21986 BICARB 26 MMOL/L 2014 Unknown COMPREHENSIVE METABOLIC 56805 ANION GAP 6 MEQ/L 2014 Unknown ANTI STREPTOLYSIN O TITER(ASO) 70341 ASO 57 IU/ML 06/19/2014 Unknown RA FACTOR 87089 RA FACTOR <20.0 IU/ML 06/15/2014 Unknown FREE T4 60857 FREE T4 1.19 NG/DL 06/15/2014 Unknown ANTINUCLEAR ANTIBODY SCREEN 95081 SHANNON SCR <1:80 Unknown ERYTHROCYTE SEDIMENTATION RATE 43143 ESR 2 MM/HR 06/14/2014 Unknown COMPLETE BLOOD COUNT [id number] WBC 6.7 10e9/L 06/15/19 15 Unknown COMPLETE BLOOD COUNT [id number] RBC 4.86 10e12/L 2014 Unknown COMPLETE BLOOD COUNT 3991631 HGB 15.9 g/dL 5 Unknown COMPLETE BLOOD COUNT 6663932 HCT DET 45.0 % 5 Unknown COMPLETE BLOOD COUNT 6980516 MCV 92.6 fL 5 Unknown COMPLETE BLOOD COUNT 0062335 MCH 32.7 pg 5 Unknown COMPLETE BLOOD COUNT 1186189 MCHC 35.3 g/dL 5 Unknown COMPLETE BLOOD COUNT 0565978 PLT 299 10e9/L 06/15/19 15 Unknown COMPLETE BLOOD COUNT 9248858 MPV 10.0 fL 5 Unknown COMPLETE BLOOD COUNT [id number] GARY % 63.8 % 5 Unknown COMPLETE BLOOD COUNT 9304846 LY % 18.3 % 5 Unknown COMPLETE BLOOD COUNT [id number] MON % 12.1 % 5 Unknown COMPLETE BLOOD COUNT [id number] EOS % 5.7 % 5 Unknown COMPLETE BLOOD COUNT 1168051 BASO % 0.1 % 5 Unknown COMPLETE BLOOD COUNT 5007837 RDW 13.3 % 5 Unknown COMPLETE BLOOD COUNT 1556146 ABS GARY 4.27 10e9/L 015 Unknown COMPLETE BLOOD COUNT [id number] ABS LYMPH 1.23 10e9/L 015 Unknown COMPLETE BLOOD COUNT [id number] ABS MONO 0.81 10e9/L 015 Unknown COMPLETE BLOOD COUNT [id number] ABS EOS 0.38 10e9/L 015 Unknown COMPLETE BLOOD COUNT [id number] ABS BASO 0.01 10e9/L 015 Unknown COMPLETE BLOOD COUNT 3016099 RDW-SD 44.3 fL 5 Unknown URIC ACID 12458 URIC ACID 7.6 MG/DL 06/14/2014 [place] [address] SYP AB NR 06/14/2014 Unknown THYROID STIMULATING HORMONE 95748 TSH 0.825 uIU/ML 06/14/2014 Unknown GLYCOSYLATED HEMOGLOBIN TEST 13774 A1C HPLC 77590-9 6.0 % 0 06/14/2014 Unknown VITAMIN B 12 FOLIC ACID 45229|73412 VIT B 12 751 PG/ML 05/25 Unknown VITAMIN B 12 FOLIC ACID 71099|48718 FOLIC ACID 23.5 NG/ML Unknown GFR CALC 5439658 GFR AA >60 ML/MIN 06/14/2014 Unknown GFR CALC 0264746 GFR NON-AA >60 ML/MIN 06/14/2014 Unknown C-REACTIVE PROTEIN (CRP) QUANT 88523 CRP 0.1 MG/DL 06/14/2014 Unknown COMPREHENSIVE METABOLIC 59684 AST 19 U/L 2014 Unknown COMPREHENSIVE METABOLIC 35366 ALT 16 IU/L 2014 Unknown COMPREHENSIVE METABOLIC 92720 BUN 13 MG/DL 2014 Unknown COMPREHENSIVE METABOLIC 72357 ALBUMIN 5.1 GM/DL 2014 Unknown COMPREHENSIVE METABOLIC 28632 CHLORIDE 92 MMOL/L 2014 Unknown COMPREHENSIVE METABOLIC 95246 BILI TOT 0.6 MG/DL 2014 Unknown COMPREHENSIVE METABOLIC 19527 ALK PHOS 61 U/L 2014 Unknown COMPREHENSIVE METABOLIC 97497 SODIUM 128 MMOL/L 06/14 Unknown COMPREHENSIVE METABOLIC 49552 CREATININE 1.00 MG/DL 05/25 Unknown COMPREHENSIVE METABOLIC 38903 CALCIUM 10.7 MG/DL 06/14 Unknown COMPREHENSIVE METABOLIC 84626 POTASSIUM 4.1 MMOL/L 06/14 Unknown COMPREHENSIVE METABOLIC 50685 PROT TOT 7.6 GM/DL 2014 Unknown COMPREHENSIVE METABOLIC 01695 Glucose 106 MG/DL 2014 Unknown COMPREHENSIVE METABOLIC 21082 BICARB 29 MMOL/L 2014 Unknown COMPREHENSIVE METABOLIC 50172 ANION GAP 7 MEQ/L 2014 Unknown COMPREHENSIVE METABOLIC 19534 AST 21 U/L 2014 Unknown COMPREHENSIVE METABOLIC 20769 ALT 26 IU/L 2014 Unknown COMPREHENSIVE METABOLIC 99184 BUN 16 MG/DL 2014 Unknown COMPREHENSIVE METABOLIC 96629 ALBUMIN 4.6 GM/DL 2014 Unknown COMPREHENSIVE METABOLIC 65195 CHLORIDE 99 MMOL/L 2014 Unknown COMPREHENSIVE METABOLIC 55846 BILI TOT 0.5 MG/DL 2014 Unknown COMPREHENSIVE METABOLIC 40598 ALK PHOS 57 U/L 2014 Unknown COMPREHENSIVE METABOLIC 42764 SODIUM 134 MMOL/L 03/09 Unknown COMPREHENSIVE METABOLIC 21063 CREATININE 0.91 MG/DL 02/23 Unknown COMPREHENSIVE METABOLIC 07438 CALCIUM 9.9 MG/DL 2014 Unknown COMPREHENSIVE METABOLIC 04839 POTASSIUM 4.3 MMOL/L 03/09 Unknown COMPREHENSIVE METABOLIC 98875 PROT TOT 7.0 GM/DL 2014 Unknown COMPREHENSIVE METABOLIC 73540 Glucose 91 MG/DL 2014 Unknown COMPREHENSIVE METABOLIC 17530 BICARB 30 MMOL/L 2014 Unknown COMPREHENSIVE METABOLIC 67388 ANION GAP 5 MEQ/L 2014 Unknown GLYCOSYLATED HEMOGLOBIN TEST 07345 A1C HPLC 12916-4 6.4 % 0 03/09/2014 Unknown GFR CALC 4868648 GFR AA >60 ML/MIN 03/09/2014 Unknown GFR CALC 3823847 GFR NON-AA >60 ML/MIN 03/09/2014 Unknown GLYCOSYLATED HEMOGLOBIN TEST 50585 A1C HPLC 55265-5 6.0 % 0 11/22/2013 Unknown THYROID STIMULATING HORMONE 22733 TSH 0.643 uIU/ML 11/18/2013 Unknown PSA EQUIMOLAR NITHIN 48264 PSA EQ 0.75 NG/ML 4 Unknown COMPREHENSIVE METABOLIC 29562 AST 21 U/L 2013 Unknown COMPREHENSIVE METABOLIC 14643 ALT 22 IU/L 2013 Unknown COMPREHENSIVE METABOLIC 90968 BUN 16 MG/DL 2013 Unknown COMPREHENSIVE METABOLIC 97201 ALBUMIN 4.6 GM/DL 2013 Unknown COMPREHENSIVE METABOLIC 57683 CHLORIDE 97 MMOL/L 2013 Unknown COMPREHENSIVE METABOLIC 33373 BILI TOT 0.8 MG/DL 2013 Unknown COMPREHENSIVE METABOLIC 10206 ALK PHOS 68 U/L 2013 Unknown COMPREHENSIVE METABOLIC 46925 SODIUM 132 MMOL/L 11/18 Unknown COMPREHENSIVE METABOLIC 06094 CREATININE 0.95 MG/DL 10/25 Unknown COMPREHENSIVE METABOLIC 22384 CALCIUM 10.1 MG/DL 11/18 Unknown COMPREHENSIVE METABOLIC 36705 POTASSIUM 4.2 MMOL/L 11/18 Unknown COMPREHENSIVE METABOLIC 50999 PROT TOT 7.2 GM/DL 2013 Unknown COMPREHENSIVE METABOLIC 87468 Glucose 125 MG/DL 2013 Unknown COMPREHENSIVE METABOLIC 98165 BICARB 26 MMOL/L 2013 Unknown COMPREHENSIVE METABOLIC 31235 ANION GAP 9 MEQ/L 2013 Unknown COMPLETE BLOOD COUNT 3556662 WBC 7.3 10e9/L 11/19/19 14 Unknown COMPLETE BLOOD COUNT 0524001 RBC 4.68 10e12/L 2013 Unknown COMPLETE BLOOD COUNT 9863125 HGB 15.4 g/dL 4 Unknown COMPLETE BLOOD COUNT 1500554 HCT DET 43.4 % 4 Unknown COMPLETE BLOOD COUNT 4259509 MCV 92.7 fL 4 Unknown COMPLETE BLOOD COUNT 4549446 MCH 32.9 pg 4 Unknown COMPLETE BLOOD COUNT 9877572 MCHC 35.5 g/dL 4 Unknown COMPLETE BLOOD COUNT 4490118 PLT 286 10e9/L 11/19/19 14 Unknown COMPLETE BLOOD COUNT 0035381 MPV 10.8 fL 4 Unknown COMPLETE BLOOD COUNT 8489841 GARY % 61.6 % 4 Unknown COMPLETE BLOOD COUNT 7174052 LY % 25.6 % 4 Unknown COMPLETE BLOOD COUNT 8834970 MON % 8.7 % 4 Unknown COMPLETE BLOOD COUNT 1678626 EOS % 4.0 % 4 Unknown COMPLETE BLOOD COUNT 4943685 BASO % 0.1 % 4 Unknown COMPLETE BLOOD COUNT 5970871 RDW 12.9 % 4 Unknown COMPLETE BLOOD COUNT 6313863 ABS GARY 4.50 10e9/L 014 Unknown COMPLETE BLOOD COUNT 5345422 ABS LYMPH 1.87 10e9/L 014 Unknown COMPLETE BLOOD COUNT 8856359 ABS MONO 0.64 10e9/L 014 Unknown COMPLETE BLOOD COUNT 8696619 ABS EOS 0.29 10e9/L 014 Unknown COMPLETE BLOOD COUNT 3592560 ABS BASO 0.01 10e9/L 014 Unknown COMPLETE BLOOD COUNT 1535188 RDW-SD 42.9 fL 4 Unknown LIPID GROUP 78130 HDL TEST 52 MG/DL 11/18/2013 Unknown LIPID GROUP 02638 TRIG 100 MG/DL 11/18/2013 Unknown LIPID GROUP 65692 TEST LDL 110 MG/DL 11/18/2013 Unknown LIPID GROUP 11924 CHOL 182 MG/DL 11/18/2013 Unknown LIPID GROUP 84991 RCHOL/HDL 3.50 RATIO 11/18/2013 Unknow n LIPID GROUP 19376 NON-HDL CH 130 MG/DL 11/18/2013 Unknow n FREE T4 63203 FREE T4 1.28 NG/DL 11/18/2013 Unknown GFR CALC 6987829 GFR AA >60 ML/MIN 11/18/2013 Unknown GFR CALC 6859518 GFR NON-AA >60 ML/MIN 11/18/2013 Unknown COMPREHENSIVE METABOLIC 44180 AST 21 U/L 2012 Unknown COMPREHENSIVE METABOLIC 88031 ALT 20 IU/L 2012 Unknown COMPREHENSIVE METABOLIC 99238 BUN 12 MG/DL 2012 Unknown COMPREHENSIVE METABOLIC 52729 ALBUMIN 4.6 GM/DL 2012 Unknown COMPREHENSIVE METABOLIC 20577 CHLORIDE 105 MMOL/L 11/03 Unknown COMPREHENSIVE METABOLIC 12853 BILI TOT 0.5 MG/DL 2012 Unknown COMPREHENSIVE METABOLIC 72892 ALK PHOS 53 U/L 2012 Unknown COMPREHENSIVE METABOLIC 02280 SODIUM 138 MMOL/L 11/03 Unknown COMPREHENSIVE METABOLIC 98235 CREATININE 0.93 MG/DL 10/24 Unknown COMPREHENSIVE METABOLIC 29627 CALCIUM 9.7 MG/DL 2012 Unknown COMPREHENSIVE METABOLIC 48897 POTASSIUM 4.3 MMOL/L 11/03 Unknown COMPREHENSIVE METABOLIC 06075 PROT TOT 7.0 GM/DL 2012 Unknown COMPREHENSIVE METABOLIC 32703 Glucose 117 MG/DL 2012 Unknown COMPREHENSIVE METABOLIC 35213 BICARB 25 MMOL/L 2012 Unknown COMPREHENSIVE METABOLIC 82688 ANION GAP 8 MEQ/L 2012 Unknown GFR CALC 5430931 GFR AA >60 ML/MIN 11/03/2012 Unknown GFR CALC 9887290 GFR NON-AA >60 ML/MIN 11/03/2012 Unknown THYROID STIMULATING HORMONE 97578 TSH 1.218 uIU/ML 11/03/2012 Unknown URIC ACID 86280 URIC ACID 7.6 MG/DL 11/03/2012 Unknown COMPLETE BLOOD COUNT 6276132 WBC 5.0 10e9/L 11/04/19 13 Unknown COMPLETE BLOOD COUNT 2107930 RBC 4.70 10e12/L 2012 Unknown COMPLETE BLOOD COUNT 6906043 HGB 15.6 g/dL 3 Unknown COMPLETE BLOOD COUNT 6281519 HCT DET 44.2 % 3 Unknown COMPLETE BLOOD COUNT 3788969 MCV 94.0 fL 3 Unknown COMPLETE BLOOD COUNT 7843115 MCH 33.2 pg 3 Unknown COMPLETE BLOOD COUNT 8397281 MCHC 35.3 g/dL 3 Unknown COMPLETE BLOOD COUNT 6073936 PLT 248 10e9/L 11/04/19 13 Unknown COMPLETE BLOOD COUNT 3814830 MPV 10.9 fL 3 Unknown COMPLETE BLOOD COUNT 4836814 GARY % 58.3 % 3 Unknown COMPLETE BLOOD COUNT 9901044 LY % 27.9 % 3 Unknown COMPLETE BLOOD COUNT 5092608 MON % 7.0 % 3 Unknown COMPLETE BLOOD COUNT 7773623 EOS % 6.6 % 3 Unknown COMPLETE BLOOD COUNT 2231292 BASO % 0.2 % 3 Unknown COMPLETE BLOOD COUNT 6812992 RDW 13.2 % 3 Unknown COMPLETE BLOOD COUNT 6384404 ABS GARY 2.92 10e9/L 013 Unknown COMPLETE BLOOD COUNT 6971658 ABS LYMPH 1.40 10e9/L 013 Unknown COMPLETE BLOOD COUNT 9124711 ABS MONO 0.35 10e9/L 013 Unknown COMPLETE BLOOD COUNT 4087971 ABS EOS 0.33 10e9/L 013 Unknown COMPLETE BLOOD COUNT 1464733 ABS BASO 0.01 10e9/L 013 Unknown COMPLETE BLOOD COUNT 1447972 RDW-SD 44.1 fL 3 Unknown HERPE1/2MG 19247|25923|28261 HSV G1 EIA 1.78 INDEX 3 Unknown HERPE1/2MG 50274|32939|57444 HSVM1/2EIA 0.15 02/26/2012 Unknown HERPE1/2MG 49983|84724|62237 HSV G2 EIA 10.14 INDEX 02/25/19 13 Unknown COMPLETE BLOOD COUNT 0890814 WBC 9.4 10e9/L 02/24/19 13 Unknown COMPLETE BLOOD COUNT 1246161 RBC 4.54 10e12/L 2012 Unknown COMPLETE BLOOD COUNT 6238738 HGB 14.9 g/dL 3 Unknown COMPLETE BLOOD COUNT 6516972 HCT DET 43.0 % 3 Unknown COMPLETE BLOOD COUNT 1390976 MCV 94.7 fL 3 Unknown COMPLETE BLOOD COUNT 8320735 MCH 32.8 pg 3 Unknown COMPLETE BLOOD COUNT 4561919 MCHC 34.7 g/dL 3 Unknown COMPLETE BLOOD COUNT 0018420 PLT 251 10e9/L 02/24/19 13 Unknown COMPLETE BLOOD COUNT 8430851 MPV 11.1 fL 3 Unknown COMPLETE BLOOD COUNT 6890517 GARY % 75.0 % 3 Unknown COMPLETE BLOOD COUNT 3843981 LY % 15.7 % 3 Unknown COMPLETE BLOOD COUNT 3773072 MON % 6.8 % 3 Unknown COMPLETE BLOOD COUNT 4829989 EOS % 2.3 % 3 Unknown COMPLETE BLOOD COUNT 9249155 BASO % 0.2 % 3 Unknown COMPLETE BLOOD COUNT 0392222 RDW 13.2 % 3 Unknown COMPLETE BLOOD COUNT 0451622 ABS GARY 7.05 10e9/L 013 Unknown COMPLETE BLOOD COUNT 1719116 ABS LYMPH 1.48 10e9/L 013 Unknown COMPLETE BLOOD COUNT [id number] ABS MONO 0.64 10e9/L 013 Unknown COMPLETE BLOOD COUNT 8381708 ABS EOS 0.22 10e9/L 013 Unknown COMPLETE BLOOD COUNT 9696913 ABS BASO 0.02 10e9/L 013 Unknown COMPLETE BLOOD COUNT 7252621 RDW-SD 44.3 fL 3 Unknown COMPREHENSIVE METABOLIC 18928 AST 21 U/L 2012 Unknown COMPREHENSIVE METABOLIC 26889 ALT 22 IU/L 2012 Unknown COMPREHENSIVE METABOLIC 24528 BUN 12 MG/DL 2012 Unknown COMPREHENSIVE METABOLIC 23976 ALBUMIN 4.9 GM/DL 2012 Unknown COMPREHENSIVE METABOLIC 23675 CHLORIDE 102 MMOL/L 02/24 Unknown COMPREHENSIVE METABOLIC 53064 BILI TOT 0.6 MG/DL 2012 Unknown COMPREHENSIVE METABOLIC 30534 ALK PHOS 59 U/L 2012 Unknown COMPREHENSIVE METABOLIC 76952 SODIUM 137 MMOL/L 02/24 Unknown COMPREHENSIVE METABOLIC 90403 CREATININE 0.92 MG/DL 03/2012 Unknown COMPREHENSIVE METABOLIC 58522 CALCIUM 9.7 MG/DL 2012 Unknown COMPREHENSIVE METABOLIC 08359 POTASSIUM 4.1 MMOL/L 02/24 Unknown COMPREHENSIVE METABOLIC 29442 PROT TOT 6.9 GM/DL 2012 Unknown COMPREHENSIVE METABOLIC 02427 Glucose 127 MG/DL 2012 Unknown COMPREHENSIVE METABOLIC 79919 BICARB 25 MMOL/L 2012 Unknown COMPREHENSIVE METABOLIC 35723 ANION GAP 10 MEQ/L 2012 Unknown GFR CALC 1662921 GFR AA >60 ML/MIN 02/25/2012 Unknown GFR CALC 9232934 GFR NON-AA >60 ML/MIN 02/25/2012 Unknown TULAREM AB 6767583 TULAREM AB <1:20 09/23/2011 Unknown [place] FEVER [id number] IGG RMSF <1:16 0 09/19/2011 Unknown [place] FEVER 37080S0 IGM RMSF <1:10 0 09/19/2011 Unknown E CHAFF AB 0834876 IGG E CHFF <1:16 09/19/2011 Unknown E CHAFF AB 1765608 IGM E CHFF <1:10 09/19/2011 Unknown GLYCOSYLATED HEMOGLOBIN TEST 99339 A1C HPLC 31167-5 5.4 % 0 09/18/2011 Unknown GFR CALC 1575765 GFR AA >60 ML/MIN 09/17/2011 Unknown GFR CALC 2034322 GFR NON-AA >60 ML/MIN 09/17/2011 Unknown VITAMIN B 12 FOLIC ACID 38785|24922 VIT B 12 405 PG/ML 08/24 Unknown VITAMIN B 12 FOLIC ACID 53602|04175 FOLIC ACID 17.5 NG/ML Unknown COMPREHENSIVE METABOLIC 58029 AST 19 U/L 2011 Unknown COMPREHENSIVE METABOLIC 76379 ALT 19 IU/L 2011 Unknown COMPREHENSIVE METABOLIC 76687 BUN 12 MG/DL 2011 Unknown COMPREHENSIVE METABOLIC 11114 ALBUMIN 4.9 GM/DL 2011 Unknown COMPREHENSIVE METABOLIC 59915 CHLORIDE 98 MMOL/L 2011 Unknown COMPREHENSIVE METABOLIC 29784 BILI TOT 1.2 MG/DL 2011 Unknown COMPREHENSIVE METABOLIC 37040 ALK PHOS 60 U/L 2011 Unknown COMPREHENSIVE METABOLIC 25347 SODIUM 133 MMOL/L 09/16 Unknown COMPREHENSIVE METABOLIC 29635 CREATININE 1.12 MG/DL 08/24 Unknown COMPREHENSIVE METABOLIC 12520 CALCIUM 10.1 MG/DL 09/16 Unknown COMPREHENSIVE METABOLIC 78025 POTASSIUM 4.1 MMOL/L 09/16 Unknown COMPREHENSIVE METABOLIC 58898 PROT TOT 7.6 GM/DL 2011 Unknown COMPREHENSIVE METABOLIC 15523 Glucose 121 MG/DL 2011 Unknown COMPREHENSIVE METABOLIC 30491 BICARB 25 MMOL/L 2011 Unknown COMPREHENSIVE METABOLIC 59111 ANION GAP 10 MEQ/L 2011 Unknown COMPLETE BLOOD COUNT 49440 WBC 5.8 10e9/L 09/17/19 12 Unknown COMPLETE BLOOD COUNT 87872 RBC 5.01 10e12/L 2011 Unknown COMPLETE BLOOD COUNT 41146 HGB 16.4 g/dL 2 Unknown COMPLETE BLOOD COUNT 45977 HCT DET 46.7 % 2 Unknown COMPLETE BLOOD COUNT 59586 MCV 93.2 fL 2 Unknown COMPLETE BLOOD COUNT 33845 MCH 32.7 pg 2 Unknown COMPLETE BLOOD COUNT 59257 MCHC 35.1 g/dL 2 Unknown COMPLETE BLOOD COUNT 94366 PLT 275 10e9/L 09/17/19 12 Unknown COMPLETE BLOOD COUNT 99242 MPV 10.8 fL 2 Unknown COMPLETE BLOOD COUNT 04560 GARY % 47.1 % 2 Unknown COMPLETE BLOOD COUNT 78110 LY % 37.2 % 2 Unknown COMPLETE BLOOD COUNT 14544 MON % 9.5 % 2 Unknown COMPLETE BLOOD COUNT 64599 EOS % 5.9 % 2 Unknown COMPLETE BLOOD COUNT 47287 BASO % 0.3 % 2 Unknown COMPLETE BLOOD COUNT 17417 RDW 13.0 % 2 Unknown COMPLETE BLOOD COUNT 51936 ABS GARY 2.73 10e9/L 012 Unknown COMPLETE BLOOD COUNT 03029 ABS LYMPH 2.16 10e9/L 012 Unknown COMPLETE BLOOD COUNT 45402 ABS MONO 0.55 10e9/L 012 Unknown COMPLETE BLOOD COUNT 68085 ABS EOS 0.34 10e9/L 012 Unknown COMPLETE BLOOD COUNT 09266 ABS BASO 0.02 10e9/L 012 Unknown COMPLETE BLOOD COUNT 62949 RDW-SD 43.1 fL 2 Unknown LIPID GROUP 93944 HDL TEST 39 MG/DL 09/17/2011 Unknown LIPID GROUP 17347 TRIG 195 MG/DL 09/17/2011 Unknown LIPID GROUP 98616 TEST LDL 98 MG/DL 09/17/2011 Unknown LIPID GROUP 42585 CHOL 176 MG/DL 09/17/2011 Unknown LIPID GROUP 48213 RCHOL/HDL 4.51 RATIO 09/17/2011 Unknow n THYROID STIMULATING HORMONE 25727 TSH 2.892 uIU/ML 08/29/2010 Unknown COMPLETE BLOOD COUNT 17824 WBC 6.5 10e9/L 08/30/19 11 Unknown COMPLETE BLOOD COUNT 09497 RBC 4.83 10e12/L 2010 Unknown COMPLETE BLOOD COUNT 16153 HGB 15.9 g/dL 1 Unknown COMPLETE BLOOD COUNT 97362 HCT DET 44.4 % 1 Unknown COMPLETE BLOOD COUNT 13813 MCV 91.9 fL 1 Unknown COMPLETE BLOOD COUNT 34256 MCH 32.9 pg 1 Unknown COMPLETE BLOOD COUNT 73632 MCHC 35.8 g/dL 1 Unknown COMPLETE BLOOD COUNT 65256 PLT 273 10e9/L 08/30/19 11 Unknown COMPLETE BLOOD COUNT 51006 MPV 10.1 fL 1 Unknown COMPLETE BLOOD COUNT 26538 GARY % 45.3 % 1 Unknown COMPLETE BLOOD COUNT 62651 LY % 39.3 % 1 Unknown COMPLETE BLOOD COUNT 61395 MON % 9.8 % 1 Unknown COMPLETE BLOOD COUNT 34322 EOS % 5.4 % 1 Unknown COMPLETE BLOOD COUNT 15275 BASO % 0.2 % 1 Unknown COMPLETE BLOOD COUNT 41894 RDW 13.2 % 1 Unknown COMPLETE BLOOD COUNT 38560 ABS GARY 2.94 10e9/L 011 Unknown COMPLETE BLOOD COUNT 69490 ABS LYMPH 2.55 10e9/L 011 Unknown COMPLETE BLOOD COUNT 29007 ABS MONO 0.64 10e9/L 011 Unknown COMPLETE BLOOD COUNT 06569 ABS EOS 0.35 10e9/L 011 Unknown COMPLETE BLOOD COUNT 48192 ABS BASO 0.01 10e9/L 011 Unknown COMPLETE BLOOD COUNT 63226 RDW-SD 43.5 fL 1 Unknown FREE T4 47971 FREE T4 1.39 NG/DL 08/29/2010 Unknown LIPID GROUP 89784 HDL TEST 52 MG/DL 08/29/2010 Unknown LIPID GROUP 50548 TRIG 110 MG/DL 08/29/2010 Unknown LIPID GROUP 26237 TEST LDL 109 MG/DL 08/29/2010 Unknown LIPID GROUP 16060 CHOL 183 MG/DL 08/29/2010 Unknown LIPID GROUP 77092 RCHOL/HDL 3.52 RATIO 08/29/2010 Unknow n PSA EQUIMOLAR NITHIN 83489 PSA EQ 1.14 NG/ML 1 Unknown GFR CALC 6328954 GFR AA >60 ML/MIN 08/29/2010 Unknown GFR CALC 9634824 GFR NON-AA >60 ML/MIN 08/29/2010 Unknown COMPREHENSIVE METABOLIC 43363 AST 23 U/L 2010 Unknown COMPREHENSIVE METABOLIC 10385 ALT 19 IU/L 2010 Unknown COMPREHENSIVE METABOLIC 89659 BUN 12 MG/DL 2010 Unknown COMPREHENSIVE METABOLIC 36042 ALBUMIN 4.9 GM/DL 2010 Unknown COMPREHENSIVE METABOLIC 69624 CHLORIDE 95 MMOL/L 2010 Unknown COMPREHENSIVE METABOLIC 92196 BILI TOT 0.4 MG/DL 2010 Unknown COMPREHENSIVE METABOLIC 46855 ALK PHOS 59 U/L 2010 Unknown COMPREHENSIVE METABOLIC 98820 SODIUM 132 MMOL/L 08/29 Unknown COMPREHENSIVE METABOLIC 42122 CREATININE 0.96 MG/DL 08/2010 Unknown COMPREHENSIVE METABOLIC 98940 CALCIUM 10.6 MG/DL 08/29 Unknown COMPREHENSIVE METABOLIC 93097 POTASSIUM 4.0 MMOL/L 08/29 Unknown COMPREHENSIVE METABOLIC 75974 PROT TOT 8.0 GM/DL 2010 Unknown COMPREHENSIVE METABOLIC 43744 Glucose 105 MG/DL 2010 Unknown COMPREHENSIVE METABOLIC 11127 BICARB 22 MMOL/L 2010 Unknown COMPREHENSIVE METABOLIC 44629 ANION GAP 15 MEQ/L 2010 Unknown URIC ACID 09908 URIC ACID 6.7 MG/DL 12/12/2009 Unknown Procedures Procedure Codes Date ROUTINE VENIPUNCTURE CPT-4: 42605 04/18/2020 COMPREHEN METABOLIC PANEL CPT-4: 96250 04/18/2020 LIPID PANEL CPT-4: 89720 04/18/2020 A1C HPLC CPT-4: 26332 04/18/2020 PPPS, subseq visit CPT-4: G0439 10/12/2019 ROUTINE VENIPUNCTURE CPT-4: 46430 01/29/2018 COMPREHEN METABOLIC PANEL CPT-4: 89129 01/29/2018 LIPID PANEL CPT-4: 28963 01/29/2018 A1C HPLC CPT-4: 33987 01/29/2018 HEPATITIS C AB TEST CPT-4: 48872 01/29/2018 ROUTINE VENIPUNCTURE CPT-4: 82338 05/01/2017 ASSAY THYROID STIM HORMONE CPT-4: 51419 05/01/2017 COMPREHEN METABOLIC PANEL CPT-4: 22944 05/01/2017 COMPLETE CBC W/AUTO DIFF WBC CPT-4: 42720 05/01/2017 LIPID PANEL CPT-4: 61720 05/01/2017 A1C HPLC CPT-4: 43778 05/01/2017 ASSAY OF PSA TOTAL CPT-4: 20638 05/01/2017 ROUTINE VENIPUNCTURE CPT-4: 90161 01/04/2016 ASSAY OF FREE THYROXINE CPT-4: 22483 01/04/2016 ASSAY THYROID STIM HORMONE CPT-4: 40849 01/04/2016 COMPREHEN METABOLIC PANEL CPT-4: 76306 01/04/2016 COMPLETE CBC W/AUTO DIFF WBC CPT-4: 79322 01/04/2016 LIPID PANEL CPT-4: 30774 01/04/2016 ASSAY OF PSA TOTAL CPT-4: 60476 01/04/2016 A1C HPLC CPT-4: 74403 01/04/2016 ROUTINE VENIPUNCTURE CPT-4: 61944 02/02/2015 ASSAY OF FREE THYROXINE CPT-4: 22692 02/02/2015 ASSAY THYROID STIM HORMONE CPT-4: 45603 02/02/2015 COMPREHEN METABOLIC PANEL CPT-4: 03568 02/02/2015 COMPLETE CBC W/AUTO DIFF WBC CPT-4: 79806 02/02/2015 LIPID PANEL CPT-4: 18614 02/02/2015 ASSAY OF PSA TOTAL CPT-4: 86356 02/02/2015 A1C HPLC CPT-4: 78792 02/02/2015 THER/PROPH/DIAG INJ SC/IM CPT-4: 74738 07/19/2014 METHYLPREDNISOLONE 40 MG INJ CPT-4: J1030 07/19/2014 TRIAMCINOLONE ACET INJ NOS CPT-4: J3301 07/19/2014 ROUTINE VENIPUNCTURE CPT-4: 81720 06/14/2014 ASSAY OF FREE THYROXINE CPT-4: 61400 06/14/2014 ASSAY THYROID STIM HORMONE CPT-4: 80984 06/14/2014 COMPREHEN METABOLIC PANEL CPT-4: 21045 06/14/2014 COMPLETE CBC W/AUTO DIFF WBC CPT-4: 65617 06/14/2014 A1C HPLC CPT-4: 77783 06/14/2014 VITAMIN B 12 FOLIC ACID CPT-4: 29534|94246 06/14/2014 RBC SED RATE AUTOMATED CPT-4: 74073 06/14/2014 RHEUMATOID FACTOR QUANT CPT-4: 31474 06/14/2014 ANTINUCLEAR ANTIBODIES CPT-4: 27484 06/14/2014 ANTISTREPTOLYSIN O TITER CPT-4: 43429 06/14/2014 ASSAY OF BLOOD/URIC ACID CPT-4: 67939 06/14/2014 C-REACTIVE PROTEIN CPT-4: 74486 06/14/2014 ROUTINE VENIPUNCTURE CPT-4: 87637 03/09/2014 COMPREHEN METABOLIC PANEL CPT-4: 67930 03/09/2014 A1C HPLC CPT-4: 51181 03/09/2014 ROUTINE VENIPUNCTURE CPT-4: 94842 11/18/2013 ASSAY OF FREE THYROXINE CPT-4: 27920 11/18/2013 ASSAY THYROID STIM HORMONE CPT-4: 85629 11/18/2013 COMPREHEN METABOLIC PANEL CPT-4: 05077 11/18/2013 COMPLETE CBC W/AUTO DIFF WBC CPT-4: 00290 11/18/2013 LIPID PANEL CPT-4: 68440 11/18/2013 ASSAY OF PSA TOTAL CPT-4: 21715 11/18/2013 A1C HPLC CPT-4: 28692 11/18/2013 REMOVE FOREIGN BODY CPT-4: 22719 11/09/2013 OCCULT BLOOD FECES CPT-4: 94614 11/09/2013 THER/PROPH/DIAG INJ SC/IM CPT-4: 21511 11/24/2012 VITAMIN B12 INJECTION CPT-4: J3420 11/24/2012 COMPREHEN METABOLIC PANEL CPT-4: 50192 11/03/2012 COMPLETE CBC W/AUTO DIFF WBC CPT-4: 71354 11/03/2012 ASSAY THYROID STIM HORMONE CPT-4: 00114 11/03/2012 ASSAY OF BLOOD/URIC ACID CPT-4: 32571 11/03/2012 ROUTINE VENIPUNCTURE CPT-4: 96275 11/03/2012 ROUTINE VENIPUNCTURE CPT-4: 75684 02/25/2012 COMPREHEN METABOLIC PANEL CPT-4: 61265 02/25/2012 COMPLETE CBC W/AUTO DIFF WBC CPT-4: 05054 02/25/2012 HERPE1/2MG CPT-4: 43811|19321|42128 02/25/2012 THER/PROPH/DIAG INJ SC/IM CPT-4: 26080 09/24/2011 VITAMIN B12 INJECTION CPT-4: J3420 09/24/2011 CEFTRIAXONE SODIUM INJECTION CPT-4: J0696 09/24/2011 THER/PROPH/DIAG INJ SC/IM CPT-4: 29306 09/24/2011 ROUTINE VENIPUNCTURE CPT-4: 95847 09/17/2011 COMPREHEN METABOLIC PANEL CPT-4: 66438 09/17/2011 COMPLETE CBC W/AUTO DIFF WBC CPT-4: 86404 09/17/2011 LIPID PANEL CPT-4: 46447 09/17/2011 VITAMIN B 12 FOLIC ACID CPT-4: 67608|10596 09/17/2011 A1C GLYCOSYLATED HEMOGLOBIN TEST CPT-4: 88135 012 ROUTINE VENIPUNCTURE CPT-4: 92774 08/29/2010 COMPLETE CBC W/AUTO DIFF WBC CPT-4: 14004 08/29/2010 COMPREHEN METABOLIC PANEL CPT-4: 20322 08/29/2010 LIPID PANEL CPT-4: 53120 08/29/2010 ASSAY THYROID STIM HORMONE CPT-4: 97845 08/29/2010 ASSAY OF FREE THYROXINE CPT-4: 40091 08/29/2010 ASSAY OF PSA TOTAL CPT-4: 74275 08/29/2010 THER/PROPH/DIAG INJ SC/IM CPT-4: 74037 12/12/2009 VITAMIN B12 INJECTION CPT-4: J3420 12/12/2009 ROUTINE VENIPUNCTURE CPT-4: 98166 12/12/2009 ASSAY OF BLOOD/URIC ACID CPT-4: 59490 12/12/2009 THER/PROPH/DIAG INJ SC/IM CPT-4: 47229 10/30/2009 VITAMIN B12 INJECTION CPT-4: J3420 10/30/2009 THER/PROPH/DIAG INJ SC/IM CPT-4: 77069 10/01/2009 VITAMIN B12 INJECTION CPT-4: J3420 10/01/2009 THER/PROPH/DIAG INJ SC/IM CPT-4: 33315 10/01/2009 CEFTRIAXONE SODIUM INJECTION CPT-4: J0696 10/01/2009 [...] 97.3 (F) We ight: 149 lbs Code: 43634-7 10/19/2020 Blood Pressure 1: 121/87 Code: 8480-6 Heart Rate 1: 100 bpm Respiratory Rate: 16 bpm SpO2: 96% Temperature: 36.3 (C) / 97.3 (F) We ight: 149 lbs Code: 56572-7 10/01/2020 Blood Pressure 1: 140/84 Code: 8480-6 Heart Rate 1: 100 bpm Respiratory Rate: 18 bpm SpO2: 96% Temperature: 36.6 (C) / 97.9 (F) We ight: 147 lbs Code: 32249-9 09/24/2020 Blood Pressure 1: 112/70 Code: 8480-6 [...] 98.1 (F) We ight: 152 lbs Code: 03546-0 09/12/2020 Blood Pressure 1: 133/70 Code: 8480-6 Heart Rate 1: 100 bpm Respiratory Rate: 16 bpm SpO2: 100% Temperature: 36.5 (C) / 97.7 (F) We ight: 152 lbs Code: 76233-4 04/18/2020 Blood Pressure 1: 144/78 Code: 8480-6 Heart Rate 1: 80 bpm Respiratory Rate: 16 bpm SpO2: 98% Temperature: 36.4 (C) / 97.5 (F) We ight: 160 lbs Code: 48543-9 10/12/2019 Blood Pressure 1: 124/78 Code: 8480-6 BMI: 24.8 Code: 51765-1 Heart Rate 1: 76 bpm Height: 5'8" Code: 8302-2 Respiratory Rate: 20 bpm SpO2: 98% Temperature: 36.6 (C) / 97.9 (F) Weight: 163 lbs Code: 09138-7 04/25/2019 Blood Pressure 1: 140/86 Code: 8480-6 BMI: 24.3 Code: 47968-3 Heart Rate 1: 92 bpm Height: 5'8" Code: 8302-2 Respiratory Rate: 20 bpm SpO2: 98% Temperature: 36.8 (C) / 98.3 (F) Weight: 160 lbs Code: 57725-9 04/12/2019 Blood Pressure 1: 146/86 Code: 8480-6 BMI: 25.4 Code: 70935-3 Heart Rate 1: 88 bpm Height: 5'8" Code: 8302-2 Respiratory Rate: 20 bpm SpO2: 98% Temperature: 36.5 (C) / 97.7 (F) Weight: 167 lbs Code: 25995-3 02/17/2018 Blood Pressure 1: 114/62 Code: 8480-6 Bl ood Pressure 2: 116/70 Code: 8480-6 BMI: 24.9 Code: 68680-6 Heart Rate 1: 76 bpm Height: 5'8" Code: 8302-2 Respiratory Rate: 20 bpm SpO2: 97% Temperature: 36.7 (C) / 98.0 (F) We ight: 164 lbs Code: 77482-3 04/07/2017 Blood Pressure 1: 122/84 Code: 8480-6 BMI: 24.3 Code: 61709-5 Heart Rate 1: 72 bpm Height: 5'8" Code: 8302-2 Respiratory Rate: 20 bpm SpO2: 96% Temperature: 36.9 (C) / 98.4 (F) Weight: 160 lbs Code: 25217-5 09/19/2016 Blood Pressure 1: 124/76 Code: 8480-6 BMI: 24.6 Code: 73524-7 Heart Rate 1: 68 bpm Height: 5'8" Code: 8302-2 Respiratory Rate: 20 bpm SpO2: 96% Temperature: 36.6 (C) / 97.9 (F) Weight: 162 lbs Code: 98812-1 12/18/2015 Blood Pressure 1: 136/70 Code: 8480-6 BMI: 24.3 Code: 84086-4 Heart Rate 1: 84 bpm Height: 5'8" Code: 8302-2 Respiratory Rate: 20 bpm Temperatu re: 36.5 (C) / 97.7 (F) Weight: 160 lbs Code: 76139-7 07/20/2015 Blood Pressure 1: 140/84 Code: 8480-6 BMI: 24.9 Code: 62744-3 Heart Rate 1: 76 bpm Height: 5'8" Code: 8302-2 Respiratory Rate: 20 bpm Temperatu re: 36.6 (C) / 97.9 (F) Weight: 164 lbs Code: 74534-4 02/07/2015 Blood Pressure 1: 164/82 Code: 8480-6 BMI: 25.5 Code: 21964-9 Heart Rate 1: 78 bpm Height: 5'8" Code: 8302-2 Respiratory Rate: 20 bpm Temperatu re: 36.5 (C) / 97.7 (F) Weight: 168 lbs Code: 56854-1 07/19/2014 Blood Pressure 1: 136/94 Code: 8480-6 BMI: 24.8 Code: 82098-6 Heart Rate 1: 88 bpm Height: 5'8" Code: 8302-2 Respiratory Rate: 20 bpm Temperatu re: 36.8 (C) / 98.2 (F) Weight: 163 lbs Code: 58964-3 07/06/2014 Blood Pressure 1: 136/92 Code: 8480-6 BMI: 24.2 Code: 63791-0 Heart Rate 1: 88 bpm Height: 5'8" Code: 8302-2 Respiratory Rate: 20 bpm Temperatu re: 36.9 (C) / 98.4 (F) Weight: 159 lbs Code: 41623-0 07/04/2014 Blood Pressure 1: 116/84 Code: 8480-6 Bl ood Pressure 2: 108/82 Code: 8480-6 Heart Rate 1: 88 bpm Respiratory Rate: 20 bpm Temperature: 3 6.7 (C) / 98.0 (F) Weight: 159 lbs Code: 70424-8 06/14/2014 Blood Pressure 1: 132/90 Code: 8480-6 BMI: 24.6 Code: 67180-5 Heart Rate 1: 100 bpm Height: 5'8" Code: 8302-2 Respiratory Rate: 20 bpm Temperatu re: 37.2 (C) / 99.0 (F) Weight: 162 lbs Code: 38696-4 03/09/2014 Blood Pressure 1: 122/62 Code: 8480-6 BMI: 25.4 Code: 66930-3 Heart Rate 1: 84 bpm Height: 5'8" Code: 8302-2 Respiratory Rate: 20 bpm Temperatu re: 36.6 (C) / 97.8 (F) Weight: 167 lbs Code: 37909-0 01/05/2014 Blood Pressure 1: 124/82 Code: 8480-6 BMI: 25.4 Code: 48270-9 Heart Rate 1: 84 bpm Height: 5'8" Code: 8302-2 Respiratory Rate: 20 bpm Temperatu re: 36.7 (C) / 98.0 (F) Weight: 167 lbs Code: 72145-4 11/09/2013 Blood Pressure 1: 138/82 Code: 8480-6 BMI: 24.5 Code: 45686-4 Heart Rate 1: 84 bpm Height: 5'8" Code: 8302-2 Respiratory Rate: 20 bpm Temperatu re: 37.1 (C) / 98.8 (F) Weight: 161 lbs Code: 91143-2 11/24/2012 Blood Pressure 1: 122/72 Code: 8480-6 BMI: 24.0 Code: 42197-8 Heart Rate 1: 66 bpm Height: 5'8" Code: 8302-2 Respiratory Rate: 20 bpm Temperatu re: 36.5 (C) / 97.7 (F) Weight: 158 lbs Code: 50616-5 11/03/2012 Blood Pressure 1: 130/84 Code: 8480-6 BMI: 23.7 Code: 12786-4 Heart Rate 1: 72 bpm Height: 5'8" Code: 8302-2 Respiratory Rate: 20 bpm Temperatu re: 36.2 (C) / 97.1 (F) Weight: 156 lbs Code: 55699-8 02/25/2012 Blood Pressure 1: 142/84 Code: 8480-6 BMI: 25.1 Code: 44050-6 Heart Rate 1: 68 bpm Height: 5'8" Code: 8302-2 Temperature: 37.2 (C) / 99.0 (F) Weight: 165 lbs Code: 59276-2 10/08/2011 Blood Pressure 1: 126/80 Code: 8480-6 BMI: 24.3 Code: 63816-5 Heart Rate 1: 84 bpm Height: 5'8" Code: 8302-2 Respiratory Rate: 20 bpm Temperatu re: 36.8 (C) / 98.2 (F) Weight: 160 lbs Code: 88549-3 09/24/2011 Blood Pressure 1: 136/80 Code: 8480-6 BMI: 24.3 Code: 48714-9 Heart Rate 1: 84 bpm Height: 5'8" Code: 8302-2 Respiratory Rate: 20 bpm Temperatu re: 36.8 (C) / 98.2 (F) Weight: 160 lbs Code: 60567-1 09/17/2011 Blood Pressure 1: 128/84 Cod e: 8480-6 09/09/2011 Blood Pressure 1: 142/84 Code: 8480-6 BMI: 24.3 Code: 84405-6 Height: 5'8" Code: 8302-2 Temperature: 36.7 (C) / 98.0 (F) Weight: 160 lbs Code : 96276-0 08/29/2010 Blood Pressure 1: 144/84 Code: 8480-6 Heart Rate 1: 72 bpm Temperature: 36.8 (C) / 98.2 (F) Weight: 156 lbs Code: 43975-9 12/12/2009 Blood Pressure 1: 146/88 Code: 8480-6 Heart Rate 1: 76 bpm Temperature: 36.6 (C) / 97.9 (F) Weight: 152 lbs Code: 00800-4 10/30/2009 Blood Pressure 1: 132/70 Code: 8480-6 Heart Rate 1: 80 bpm Temperature: 36.9 (C) / 98.4 (F) Weight: 151 lbs Code: 24150-1 10/01/2009 Blood Pressure 1: 142/86 Code: 8480-6 BMI: 23.0 Code: 39355-7 Heart Rate 1: 84 bpm Height: 5'8" Code: 8302-2 Temperature: 36.9 (C) / 98.4 (F) Weight: 151 lbs Code: 34289-5 Functional Status No Functional Status data Reason [...] follow up 04/25/2019 follow up 04/12/2019 from [facility] well man exam (40-65 years) 02/17/2018 [...] 10/01/2009 establishing vis it, being treated for [place] Spotted Fever Encounters Encounter Performer Location Codes Date () OFFICE/OUTPATIENT VISIT EST Diagnosis: Pulmonary nodules[ICD10: R91.8] Diagnosis: Supraclavicular adenopathy[ICD10: R59.0] Diagnosis: Thrombocytopenia[ICD10: D69.6] Estephanie Dyan GALARZA S . [facility] CPT-4: 22995 10/26/2020 ([id number]) OFFICE/OUTPATIENT VISIT EST Diagnosis: Mass of left lung[ICD10: R91.8] Diagnosis: Supraclavicular adenopathy[ICD10: R59.0] Diagnosis: On anticoagulant therapy[ICD10: Z79.01] Diagnosis: Other acute pulmonary embolism without acute cor pulmonale[ICD10: I26.99] Diagnosis: Lymphadenopathy[ICD10: R59.1] Diagnosis: Thrombocytopenia[ICD10: D69.6] Diagnosis: Pericardial effusion[ICD10: I31.3] [facility] 27360 10/22/2020 ([id number]) OFFICE/OUTPATIENT VISIT EST Diagnosis: Supraclavicular adenopathy[ICD10: R59.0] Diagnosis: Difficulty swallowing[ICD10: R13.10] Estephanie Dyan [facility] [employer] CPT-4: 75992 10/19/2020 ([id number]) OFFICE/OUTPATIENT VISIT EST Diagnosis: On anticoagulant therapy[ICD10: Z79.01] Diagnosis: Acute deep vein thrombosis (DVT) of femoral vein of right lower extremity[ICD10: I82.411] [facility] : 91014 10/01/2020 ([id number]) OFFICE/OUTPATIENT VISIT EST Diagnosis: Right leg DVT[ICD10: I82.401] Tracie [facility]: 49905 09/24/2020 ([id number]) OFFICE/OUTPATIENT VISIT EST Diagnosis: Acute deep vein thrombosis (DVT) of femoral vein of right lower extremity[ICD10: I82.411] Diagnosis: On anticoagulant therapy[ICD10: Z79.01] Estephanie Dayn [facility]: 34753 09/17/2020 ([id number]) OFFICE/OUTPATIENT VISIT EST Diagnosis: Acute deep vein thrombosis (DVT) of femoral vein of right lower extremity[ICD10: I82.411] Estephanie OconnorClark [facility]AG[facility] CPT-4 : 74569 09/14/2020 ([id number]) OFFICE/OUTPATIENT VISIT EST Diagnosis: Fall down stairs, initial encounter[ICD10: W10.8XXA] Diagnosis: Right leg swelling[ICD10: M79.89] Diagnosis: Right leg pain[ICD10: M79.604] Estephanie Oconnor Clark [facility] CPT-4: 18495 09/12/2020 ([id number]) OFFICE/OUTPATIENT VISIT EST Diagnosis: Hypertension[ICD10: I10] Diagnosis: Hyperglycemia, unspecified[ICD10: R73.9] Diagnosis: Mixed hyperlipidemia[ICD10: E78.2] Tracie MOHAN ElvinClark [facility]AGO [facility] [employer] CPT-4: 42672 04/18/2020 ([id number]) OFFICE/OUTPATIENT VISIT EST 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] Diagnosis: Cat scratch[ICD10: W55.03XA] Diagnosis: Hypertension[ICD10: I10] Diagnosis: Pulmonary nodules[ICD10: R91.8] Tracie Nikhilwaleska GALARZA [employer] CPT-4: 25230 04/25/2019 ([id number]) OFFICE/OUTPATIENT VISIT EST 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] Diagnosis: Dysphagia[ICD10: R13.10] Tracie GALARZA ElvinClark HOOD CHARLENE [facility] [employer] CPT-4: 94516 04/12/2019 ([id number]) PER PM REEVAL EST PAT 65+ YR Diagnosis: Encounter for general adult medical examination without abnormal findings[ICD10: Z00.00] Diagnosis: Essential (primary) hypertension[ICD10: I10] Diagnosis: Hyperglycemia, unspecified[ICD10: R73.9] Tracie GALARZA ElvinClark [facility] CPT-4: 46315 02/17/2018 ([id number]) NURSE/OUTPATIENT VISIT EST Diagnosis: Essential (primary) hypertension[ICD10: I10] Diagnosis: Mixed hyperlipidemia[ICD10: E78.2] Diagnosis: Hyperglycemia, unspecified[ICD10: R73.9] Diagnosis: Encounter for screening for other viral diseases[ICD10: Z11.59] Tracie Howard [facility] CPT-4: 27115 01/29/2018 ([id number]) OFFICE/OUTPATIENT VISIT EST Diagnosis: Encounter for general adult medical examination without abnormal findings[ICD10: Z00.00] Diagnosis: Mixed hyperlipidemia[ICD10: E78.2] Diagnosis: Essential (primary) hypertension[ICD10: I10] Diagnosis: Impaired fasting glucose[ICD10: R73.01] Diagnosis: Encounter for screening for malignant neoplasm of prostate[ICD10: Z12.5] Tracie Howard [facility] CPT-4: 12365 05/01/2017 ([id number]) OFFICE/OUTPATIENT VISIT EST Diagnosis: URI, ACUTE[ICD10: J06.9] Tracie CHANG [employer] CPT-4: 16447 04/07/2017 OFFICE/OUTPATIENT VISIT EST Diagnosis: Essential (primary) hypertension[ICD10: I10] Ashley Howard [facility] CPT-4: 50036 09/19/2016 ([id number]) OFFICE/OUTPATIENT VISIT EST Diagnosis: Encounter for general adult medical examination without abnormal findings[ICD10: Z00.00] Diagnosis: Essential (primary) hypertension[ICD10: I10] Diagnosis: Impaired fasting glucose[ICD10: R73.01] Tracie Howard [facility] [employer] CPT-4: 33970 01/04/2016 ([id number]) OFFICE/OUTPATIENT VISIT EST Diagnosis: Essential (primary) hypertension[ICD10: I10] Diagnosis: Mixed hyperlipidemia[ICD10: E78.2] Diagnosis: Impaired fasting glucose[ICD10: R73.01] Tracie Howard [facility] [employer] CPT-4: 59335 12/18/2015 ([id number]) PREV VISIT EST AGE 40-64 Diagnosis: Encounter for general adult medical examination without abnormal findings[ICD10: Z00.00] Diagnosis: Essential (primary) hypertension[ICD10: I10] Ashley [facility]: 51331 07/20/2015 OFFICE/OUTPATIENT VISIT EST Diagnosis: Mixed hyperlipidemia[ICD10: E78.2] Diagnosis: Impaired fasting glucose[ICD10: R73.01] Diagnosis: Insomnia, unspecified[ICD10: G47.00] Jacque MongehSaronjorge luis DURAN KAMALJIT Lee [facility] CPT-4: 93222 02/07/2015 ([id number]) OFFICE/OUTPATIENT VISIT EST Diagnosis: Encounter for general adult medical examination without abnormal findings[ICD10: Z00.00] Diagnosis: Essential (primary) hypertension[ICD10: I10] Diagnosis: Mixed hyperlipidemia[ICD10: E78.2] Tracie MOHAN Lee [facility] CPT-4: 31384 02/02/2015 ([id number]) OFFICE/OUTPATIENT VISIT EST Diagnosis: SINUSITIS, ACUTE[ICD9: 461.9] Jacque MongeSharonjorge luis TRACIE [facility] CPT-4: 22544 07/19/2014 ([id number]) OFFICE/OUTPATIENT VISIT EST Diagnosis: Hypotension[ICD9: 458.9] Diagnosis: DYSPEPSIA[ICD9: 536.8] Diagnosis: HYPERTENSION[ICD9: 401.9] Tracie GALARZA ElvinClark [facility] CPT-[facility]: 35781 07/06/2014 ([id number]) OFFICE/OUTPATIENT VISIT EST Diagnosis: DIZZINESS/VERTIGO[ICD9: 780.4] Diagnosis: HYPOTENSION[ICD9: 458.9] Diagnosis: MALAISE AND FATIGUE[ICD9: 780.79] Tracie Murillo [facility] CPT-4: 88617 07/04/2014 ([id number]) OFFICE/OUTPATIENT VISIT EST Diagnosis: ARTHRALGIA-MULTIPLE SITES[ICD9: 719.49] Diagnosis: CEPHALGIA[ICD9: 784.0] Diagnosis: Uveitis[ICD9: 364.3] Tracie GALARZA ElvinClark [facility] CPT-4: 33300 06/14/2014 ([id number]) OFFICE/OUTPATIENT VISIT EST Diagnosis: HYPERTENSION[ICD9: 401.9] Diagnosis: OTHER ABNORMAL GLUCOSE[ICD9: 790.29] Tracie KEYES DO [facility] CPT-4: 43601 03/09/2014 ([id number]) OFFICE/OUTPATIENT VISIT EST Diagnosis: OTHER ABNORMAL GLUCOSE[ICD9: 790.29] Tracie KEYES DO [facility] CPT-4: 62255 01/05/2014 ([id number]) OFFICE/OUTPATIENT VISIT EST Diagnosis: ROUTINE MEDICAL EXAM[ICD9: V70.0] Tracie KEYES [facility] CPT-4: 65595 11/18/2013 ([id number]) PREV VISIT EST AGE 40-64 Diagnosis: ROUTINE MEDICAL EXAM[ICD9: V70.0] Diagnosis: HYPERLIPIDEMIA NEC/NOS[ICD9: 272.4] Diagnosis: FOREIGN BODY FINGER[ICD9: 915.6] Tracie KEYES [facility] CPT-4: 24292 11/09/2013 ([id number]) OFFICE/OUTPATIENT VISIT EST Diagnosis: CERVICALGIA[ICD9: 723.1] Diagnosis: B12 DEFIC ANEMIA NEC[ICD9: 281.1] Diagnosis: DISTURBANCE OF SKIN SENSATION (Paresthesia)[ICD9: 782.0] Tracie KEYES [facility] CPT-4: 87651 11/24/2012 OFFICE/OUTPATIENT VISIT EST Diagnosis: Neck pain on left side[ICD9: 723.1] Diagnosis: Tendonitis of elbow, left[ICD9: 727.09] Jacque Lopez TRACIE KEYES [facility] CPT-4: 23627 11/03/2012 OFFICE/OUTPATIENT VISIT EST Diagnosis: Oral lesion[ICD9: 528.9] Diagnosis: Herpes zoster[ICD9: 053.9] Diagnosis: FEBRILE ILLNESS[ICD9: 780.60] Liz Randall TRACIE KEYES [facility] CPT-4: 72049 02/25/2012 OFFICE/OUTPATIENT VISIT EST Diagnosis: MALAISE AND FATIGUE[ICD9: 780.79] Diagnosis: B12 DEFIC ANEMIA NEC[ICD9: 281.1] Diagnosis: SPOTTED FEVERS[ICD9: 082.0] Diagnosis: SPASM OF MUSCLE[ICD9: 728.85] Tracie OBRIENER DO [facility] CPT-4: 51301 10/08/2011 ([id number]) OFFICE/OUTPATIENT VISIT EST Diagnosis: MALAISE AND FATIGUE[ICD9: 780.79] Diagnosis: SPOTTED FEVERS[ICD9: 082.0] Diagnosis: B12 DEFIC ANEMIA NEC[ICD9: 281.1] Tracie CALVONDER DO [facility] CPT-4: 14843 09/24/2011 ([id number]) OFFICE/OUTPATIENT VISIT EST Diagnosis: B12 DEFIC ANEMIA NEC[ICD9: 281.1] Diagnosis: HYPERTENSION[ICD9: 401.9] Diagnosis: MALAISE AND FATIGUE[ICD9: 780.79] Diagnosis: OTHER ABNORMAL GLUCOSE[ICD9: 790.29] Tracie CALVONDER DO [facility] CPT-4: 90894 09/17/2011 OFFICE/OUTPATIENT VISIT EST Diagnosis: NONVENOM ARTHROPOD BITE[ICD9: E906.4] Diagnosis: HYPERTENSION[ICD9: 401.9] Tracie CALVO NDER DO [facility] CPT-4: 33925 09/09/2011 PREV VISIT EST AGE 40-64 Tracie WELCH R DO [facility] CPT-4: 04423 08/29/2010 ([id number]) OFFICE/OUTPATIENT VISIT, EST Tracie CHAVEZ SClark CALVONDER [facility] CPT-4: 78783 12/12/2009 ([id number]) OFFICE/OUTPATIENT VISIT, EST Tracie CHAVEZ S. ORENDER DO [facility] CPT-4: 66005 10/30/2009 ([id number]) OFFICE/OUTPATIENT VISIT, NEW Tracie CHAVEZ SClark ORENDER DO [facility] CPT-4: 11868 10/01/2009 Plan of Care Planned Activity Notes Codes Status Date Visit Diagnosis Plan: Pulmonary nodules Discussion: PE T scan results not available at time of visit- request sent to [facility]. Will call patient with results. Discussed probable referral to oncology and possible lymph node biopsy. F/U in ED for any severe symptoms. ICD-9 : 793.19 ICD-10 : R91.8 10/26/2020 Patient Education: Patient Medication Summary Completed 10/26/2020 Visit Plan: Discussed labs and CT with gulshan ch. Questions answered. Will send order for PET CT d/t lung masses and adenopathy Echo today for pericardial effusion Recheck CBC today d/t thrombocytopenia Continue Eliquis 10/22/2020 Visit NOS Plan: Plan Notes: Discussed labs a nd CT with pat... 10/22/2020 Appointment: Estephanie Zaidi WPtel: [phone] [facility] US FOLLOW UP 10/22/2020 Patient Education: Patient Medication Summary Completed 10/22/2020 Care Plan: CT SOFT TISSUE NECK W/O DYE L OINC : 65857-3 Pending 10/22/2020 Visit Diagnosis Plan: Supraclavicular adenopathy Discu ssion: Will send for stat CT neck chest with contrast and labs at [facility] ICD-9 : 785.6 ICD-10 : R59.0 10/19/2020 App[facility]ment: [facility] [phone] [facility] [facility] 10/19/2020 Patient Education: Patient Medication [...] I82.411 10/01/2020 Appointment: [facility]idi [facility] [phone] [facility] [facility] 10/01/2020 Patient Education: Patient Medication Summary Completed 10/01/2020 Visit Diagnosis Plan: Right leg DVT Discussion: Contin ue eliquis at 5mg po BID Recheck 1 week Discussed repeating US of RLE at 3mos and staying on eliquis until then Discussed clotting studies after off eliquis for 1month in future ICD-9 : 453.40 ICD-10 : I82.401 09/24/2020 Appointment: Tracie Keyes WPtel: [phone] [facility] FOLLOW UP 09/24/2020 Visit Diagnosis Plan: On [...] extremity Discussion: Swelling decreasing. F/U 1 w tangirnaq for recheck. ICD-9 : 453.41 ICD-10 : I82.411 09/17/2020 Appointment: Estephanie Ziadi WPtel: [phone] [facility] FOLLOW UP 09/17/2020 Patient Education: Patient Medication Summary Completed 09/17/2020 Patient Education: Eliquis- [employer] C[employer] [id number] https://www.[employer]/resources/getResource/61/u26wkwlc-7omw-494a-39 Completed 09/17/2020 Patient Education: tramadol- [employer] C[employer]on [id number] https://www.[employer]/resources/getResource/61/igu62066-sc44-0m36-10 Completed 09/17/2020 Visit Diagnosis Plan: Acute deep [...] I82.411 09/14/2020 Appointment: Estephanie Zaidi WPtel: [phone] [facility] FOLLOW UP 09/14/2020 Patient Education: Patient Medication Summary Completed 09/14/2020 Visit Diagnosis Plan: Right leg swelling Discussion: W ill send to [facility] now for stat doppler to r/o DVT d/t swelling and pain and f/u with results. ICD-9 : 729.81 ICD-10 : M79.89 09/12/2020 Appointment: Estephanie Zaidi WPtel: [phone] [facility] ACUTE ILLNESS 09/12/2020 Patient Education: Patient [...] : R73.9 04/18/2020 Appointment: Tracie Keyes WPtel: [address] [place], [place] [phone] FOLLOW UP 04/18/2020 Patient Education: lisinopril- [employer] Coupon [id number] https://www.[employer]/samplemd/resources/getResource/61/611565us-eysf-02v3-60 Completed 04/18/2020 Visit Diagnosis Plan: Essential (primary) hypertension Discussion: Stable on lisinopril ICD-9 : 401.9 ICD-10 : I10 10/12/2019 Visit Diagnosis Plan: Encounter for gene [facility] adult medical examination without abnormal findings Discussion: Mediterranean diet Combinati on of cardio and weight bearing exercise Will return for fasting lab next week ICD-9 : V70.0 ICD-10 : Z00.00 10/12/2019 Visit Diagnosis Plan: Hyperglycemia, unspecified Discu ssion: Will return for HbA1C next week ICD-9 : 790.29 ICD-10 : R73.9 10/12/2019 Appointment: Tracie Keyes WPtel: [address] [place], [place] [phone] INSIDE Annual Well Visit 10/12/2019 Appointment: Viridiana Lima [address] FOLLOW UP 05/16/2019 Visit Diagnosis Plan: Pulmonary [...] : W55.03XA 04/25/2019 Appointment: Tracie Keyes WPtel: [address] [place], [place] [phone] Hospital Follow Up 04/25/2019 Patient Education: nystatin- [employer] Coupon [id number] https://www.[employer].com/samplemd/resources/getResource/61/70378kc9-3737-48q9-5g Completed 04/25/2019 Visit Diagnosis Plan: Submandibular gland [...] K11.1 04/12/2019 Appointment: Tracie Keyes WPtel: [address] [place], [place] [phone] 04/12/2019 Appointment: Tracie Keyes WPtel: [address] [place] [address] LM CANCELED 08/09/2018 Visit Diagnosis Plan: Essential (primary) hypertension Discussion: Stable ICD-9 : 401.9 ICD-10 : I10 02/17/2018 Visit Diagnosis Plan: Encounter for [facility] adult medical examination without abnormal findings Discussion: Lab discussed Refuses prosta te check Refuses colonoscopy Will check with pharmacy on Shingrix/Flu shot and Prevnar ICD-9 : V70.0 ICD-10 : Z00.00 02/17/2018 Visit Diagnosis Plan: Hyperglycemia, unspecified Discu ssion: Wants to focus on diet/exercise and recheck in 6mos ICD-9 : 790.29 ICD-10 : R73.9 02/17/2018 Appointment: Tracie Keyes WPtel: [address] [place] [address] Annual Well Visit 02/17/2018 Appointment: Tracie Keyes WPtel: [address] [place], [place] [phone] US LAB 01/29/2018 Appointment: Tracie Keyes WPtel: [address] [place], [place] [phone] US LAB 05/01/2017 Patient Education: Patient Medication [...] Rest, Fluids... 04/07/2017 Appointment: Tracie Keyes WPtel: [address] [place] [address] ACUTE ILLNESS 04/07/2017 Patient Education: Patient Medication Summary Completed 04/07/2017 Visit Plan: Had meds refilled for 6 joseph hs the other day. RTC 6 months Described s/s of heart disease that he would need to report for to us or ER/UC. 09/19/2016 Appointment: [facility] [phone] [facility] 09/18 lm`sl FOLLOW UP 09/19/2016 Patient Education: Patient Medication Summary Completed 09/19/2016 Appointment: Tracie Keyes WPtel: [phone] [place] [id number] [place] LAB 01/04/2016 Patient Education: Patient Medication Summary Completed 01/04/2016 Visit Plan: Will get flu shot at work Up date fasting lab 12/18/2015 Appointment: Tracie Keyes WPtel: [phone] [place], [place] [phone] 12/16 lm~sl FOLLOW UP 12/18/2015 Patient Education: Patient Medication Summary Completed 12/18/2015 Visit Plan: Pt declined rectal/prostate exam. Encouraged to get colonoscopy Plan labs for fall 2015 Continue on current meds but send in home B/P since today's B/P is elevated to see if dosage change is indicated. RTC in 6 months 07/20/2015 Appointment: Ashley Crenshaw WPtel: [phone] [place] [id number] 07/18 lm ~sl Annual Well Visit 07/20/2015 Patient Education: Patient Medication Summary Completed 07/20/2015 Visit Plan: Resume BP med Resume Metform in( has been off > 9 months) Add HgbA1C to labs drawn last week, Trial of Selinor for sleep. Will let us know how he does with it. 02/07/2015 Appointment: Jac[facility] [phone] [facility] 02/06/15 vm cn....appt confirmed cn FOLLOW UP 02/07/2015 Patient Education: Patient Medication Summary Completed 02/07/2015 Patient Education: [facility] - Saving AutoInj - Lisinopril - 18-64 - Dynamic Portal ID Completed 02/07/2015 Appointment: Tracie Keyes WPtel: [address] [place] [address] LAB 02/02/2015 Patient Education: Patient Medication Summary Completed 02/02/2015 Appointment: Jacque Lopez WPtel: [address] [place] [address] ACUTE ILLNESS 07/19/2014 Patient Education: Patient Medication Summary Completed 07/19/2014 Visit Plan: Restart Diltiazem Continue t o hydrate Call in 3 days on how doing 07/06/2014 Appointment: Tracie Keyes WPtel: [address] [place] [address] 07/05 appt confirmed cn FOLLOW UP 07/07/19 Patient Education: Patient Medication Summary Completed 07/06/2014 Visit Plan: Hold lisinopril hct Hydrate Recheck 2 days Meclizine 25mg q HS Hold metformin Call in AM 07/04/2014 Appointment: Tracie Keyes WPtel: [address] [place] [address] FOLLOW UP 07/04/2014 Patient Education: Patient Medication Summary Completed 07/04/2014 Appointment: Tracie Keyes WPtel: [address] [place] [address] ACUTE ILLNESS 06/14/2014 Patient Education: Patient Medication Summary Completed 06/14/2014 Appointment: Tracie Keyes WPtel: [address] [place] [address] FOLLOW UP 03/09/2014 Patient Education: Patient Medication Summary Completed 03/09/2014 Visit Plan: Continue metformin at curren t dose Accuchecks daily alternating times Diabetic diet info given Check CMP with HbA1C in 2mos then fwup 01/05/2014 Appointment: Tracie Keyes WPtel: [address] [place], [place] [phone] FOLLOW UP 01/05/2014 Patient Education: Patient Medication Summary Completed 01/05/2014 Visit Plan: Did not need lab so will jus t fwup as scheduled 01/03/2014 Appointment: Tracie Keyes WPtel: [address] [place], [place] [phone] [place] LAB 01/03/2014 Patient Education: Patient Medication Summary Completed 01/03/2014 Appointment: Tracie Keyes WPtel: [address] [place], [place] [phone] [place] LAB 11/18/2013 Patient Education: Patient Medication Summary Completed 11/18/2013 Visit Plan: Continue current meds Remova l of splinter as above Keflex for 1 week Continue current meds Fwup next week for fasting lab including PSA 11/09/2013 Appointment: Tracie Keyes WPtel: [address] [place], [place] [phone] 11/08 Annual Well Visit 11/09/2013 Patient Education: Patient Medication Summary Completed 11/09/2013 Patient Education: [facility] - [employer] [employer] - Lisinopril - 18+ - Dynamic Portal ID Completed 11/09/2013 Appointment: Tracie Keyes WPtel: [address] [place], [place] [phone] 11/23 left message FOLLOW UP 11/24/2012 Patient Education: Patient Medication Summary Completed 11/24/2012 Appointment: Jacque Lopez WPtel: [address] [place], [place] [phone] FOLLOW UP 11/10/2012 Appointment: Jacque Lopez WPtel: [address] [place], [place] [phone] ACUTE ILLNESS 11/03/2012 Patient Education: Patient Medication Summary Completed 11/03/2012 Appointment: Liz Randall WPtel: [address] [place], [place] [phone] AC[facility] 02/25/2012 Patient Education: Patient Medication Summary Completed 02/25/2012 Visit Plan: Finish abx Continue B12 OMT done Add Skelaxin 800mg q HS 10/08/2011 Appointment: Tracie Keyes WPtel: [address] [place], [place] [phone] voicemail FOLLOW UP 10/08/2011 Patient Education: Patient Medication Summary Completed 10/08/2011 Appointment: Tracie Keyes WPtel: [address] [place], [place] [phone] FOLLOW UP 09/24/2011 Patient Education: Patient Medication Summary Completed 09/24/2011 Appointment: Tracie Keyes WPtel: [address] [place], [place] [phone] LAB 09/17/2011 Patient Education: Patient Medication Summary [...] fasting labs. 09/09/2011 Appointment: Liz Randall WPtel: [address] [place], [place] [phone] 09/09/2011 Patient Education: Patient Medication Summary Completed 09/09/2011 Visit Plan: Change lisinopril hct to 20/ 12.5mg 2 daily and continue cardizem Check fasting lab--drawn today 08/29/2010 Appointment: Tracie Keyes WPtel: [address] [place], [place] [phone] FOLLOW UP 08/29/2010 Patient Education: Patient Medication Summary Completed 08/29/2010 Appointment: Tracie Keyes WPtel: [address] [place], [place] [phone] [place] FOLLOW UP 12/12/2009 Patient Education: Patient Medication Summary Completed 12/12/2009 Appointment: Tracie Keyes WPtel: [address] [place], [place] [id number] [place] FOLLOW UP 11/27/2009 Visit Plan: Finish Abx B12 given Start d aily 1000mcg B12 Cont allopurinol and check B12 and uric acid in 1mo. 10/30/2009 [facility]ment: [facility] [phone] [id number] [facility] 10/30/2009 Patient Education: Patient Medication Summary Completed 10/30/2009 Appointment: [facility] [phone] [id number] [place] NEW [facility] 10/01/2009 Patient Education: Patient Medication Summary Completed 10/01/2009 Referral: Sav Olivo WPtel: [phone] [id number] [place] Referral Initiated Instructions Comment . Discussed labs and CT with patient. Q uestions answered. Will send order for PET CT d/t lung masses and adenopathy Echo today for pericardial effusion Recheck CBC today d/t thrombocytopenia Continue Eliquis . Supportive care. Rest, Fluids, Tyleno l/Motrin prn fever or bodyaches. Notify if worsening symptoms. . Had meds refilled for 6 months the ot er day. RTC 6 months Described s/s [...]
--- OUTSIDE RECORDS SUMMARY | 2020-11-05 09:32 | XMS REPORT | CCD ---
Author Author Josh Keyes D.O. Organization [facility] Address [address] [place] [address] Phone Care Team Providers [facility] Name Role Phone Tracie Keyes D.O., PP Unavailable CCM Unavailable Summary Purpose Interface Exchange Insurance Providers Payer name Policy type / Coverage type Covered alliance party ID Effective Begin Date Effective End Date WPS MEDICARE PART B [place] Medicare Part B [id number] Unknown [facility] Medicare Part B [id number] 2019 Un known Family history Sister Diagnosis Age At Onset seizure disorder Unknown Father Diagnosis Age At Onset Diabetes mellitus Type 2 Unknown Mother Diagnosis Age At Onset Diabetes mellitus Type 2 Unknown Social History Social History Element Codes Description Effective Dates Tobacco history SNOMED CT: 60838332 Currently smokes tobacco Marital status Unknown 10/01/2009 [...] E906.4 09/09/2011 Active Hypertension Unknown 10/01/2009 Active 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 flaco B12 DEFIC ANEMIA NEC ICD-9: 281.1 10/01/2009 Active Hyperuricemia ICD-9: 790.6 10/01/2009 Active Myalgia ICD-9: 729.1 10/01/2009 Active 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 10/01/2009 Act [place] Medications Medication Codes Instructions Start Date Stop Date Status Fill Instructions Eliquis 5 mg tablet RxNorm: 8899062 Take 1 Tablet(s) Oral two ti mes a day 09/19/2020 12/17/2020 Active tramadol 50 mg tablet RxNorm: 056637 Take 1 Tablet(s) O ral Q8H as needed for pain Take with 2 tylenol 09/17/2020 No Stop Date Active Eliquis 5 mg tablet RxNorm: 0830561 Take 2 Tablet(s) Oral two ti mes a day 09/17/2020 No Stop Date Active lisinopril 40 mg tablet RxNorm: 937032 1 Tablet(s) Oral QD repl aces 20mg dose 04/18/2020 10/15/2020 Inactive Men's Multivitamin 400 mcg-20 mcg-300 mcg tablet RxNorm: 1 Tablet(s) Oral QD 04/18/2020 No Stop Date Active lisinopril 20 mg tablet RxNorm: 162523 1 Tablet(s) Oral QD 03/29/19 21 04/17/2020 Inactive Due for his 6 month appointm ent lisinopril 20 mg tablet RxNorm: 312768 TAKE ONE (1) TAB LET BY MOUTH DAILY... Needs fwup 10/03/2019 11/02/2019 Inactive lisinopril 20 mg tablet RxNorm: 154986 TAKE ONE (1) TABLET BY M OUTH DAILY... 10/03/2019 10/02/2019 Inactive Zithromax 500 mg tablet RxNorm: 217762 1 Tablet(s) Oral QD 04/25/19 20 05/02/2019 Inactive [AttnRPh: Saving apply/adjud icate RxGRP:SG20 RxBIN:[id number] RxPCN: ID#:[id number]] lisinopril 20 mg tablet RxNorm: 010945 1 Tablet(s) Oral QD 04/25/19 20 10/02/2019 Inactive nystatin 100,000 unit/mL oral suspension RxNorm: 628130 5 Milliliter(s) Oral four times a day swish, gargle and spit 04/25/2019 05/09/2019 Inactive diltiazem ER (XR/XT) 120 mg capsule,extended release 2 4 hr, controlled RxNorm: 556429 Capsule(s) 1 Capsule(s) PO QD 06/10/2018 10/11/2019 Inactive [SAVINGS FOR UNINSURED PATIENTS -- BIN:768123, PCN: ASPROD1, Group: AME08, ID# [id number], Process claim through [employer], for questions: . THIS IS NOT INSURANCE.] lisinopril 20 mg-hydrochlorothiazide 12.5 mg tablet RxNorm: 538431 1 Tablet(s) PO QAM 06/10/2018 10/11/2019 Inactive [AttnRPh: Saving apply/adjudicate RxGRP:SG20 RxBIN:[id number] RxPCN: ID#:[id number]] lisinopril 20 mg-hydrochlorothiazide 12.5 mg tablet RxNorm: 069532 1 Tablet(s) PO QAM 05/06/2017 01/30/2018 Inactive [AttnRPh: Saving apply/adjudicate RxGRP:SG20 RxBIN:[id number] RxPCN: ID#:[id number]] diltiazem ER (XR/XT) 120 mg capsule,extended release 2 4 hr, controlled RxNorm: 045457 Capsule(s) 1 Capsule(s) PO QD 05/06/2017 01/30/2018 Inactive [SAVINGS FOR UNINSURED PATIENTS -- BIN:244725, PCN: ASPROD1, Group: AME08, ID# [id number], Process claim through [employer]Imp[employer], for questions: . THIS IS NOT INSURANCE.] diltiazem ER (XR/XT) 120 mg capsule,extended release 2 4 hr, controlled RxNorm: 315745 Capsule(s) 1 Capsule(s) PO QD 09/16/2016 03/14/2017 Inactive [SAVINGS FOR UNINSURED PATIENTS -- BIN:242244, PCN: ASPROD1, Group: AME08, ID# [id number], Process claim through [employer], for questions: . THIS IS NOT INSURANCE.] lisinopril 20 mg-hydrochlorothiazide 12.5 mg tablet RxNorm: 708664 1 Tablet(s) PO QAM 09/16/2016 03/14/2017 Inactive [AttnRPh: Saving apply/adjudicate RxGRP:SG20 RxBIN:[id number] RxPCN: ID#:[id number]] diltiazem ER (XR/XT) 120 mg capsule,extended release,control led RxNorm: 900467 1 Capsule(s) PO QD 04/09/2016 10/11/2019 Inactive [SAVINGS FOR UN INSURED PATIENTS -- BIN:099079, PCN: ASPROD1, Group: AME08, ID# [id number], Process claim through [employer]Imp[employer], for questions: . THIS IS NOT INSURANCE.] diltiazem ER (XR/XT) 120 mg capsule,extended release,control led RxNorm: 146867 1 Capsule(s) PO QD 04/09/2016 09/15/2016 Inactive [SAVINGS FOR UN INSURED PATIENTS -- BIN:590992, PCN: ASPROD1, Group: AME08, ID# [id number], Process claim through [employer]Imp[employer], for questions: . THIS IS NOT INSURANCE.] lisinopril 20 mg-hydrochlorothiazide 12.5 mg tablet RxNorm: 398595 1 Tablet(s) PO QAM 12/10/2015 06/06/2016 Inactive [AttnRPh: Saving apply/adjudicate RxGRP:SG20 RxBIN:[id number] RxPCN: ID#:[id number]] diltiazem ER (XR/XT) 120 mg capsule,extended release,control led RxNorm: 237164 1 Capsule(s) PO QD 02/07/2015 02/01/2016 Inactive [SAVINGS FOR UN INSURED PATIENTS -- BIN:848800, PCN: ASPROD1, Group: AME08, ID# [id number], Process claim through MedImp[employer], for questions: . THIS IS NOT INSURANCE.] lisinopril 20 mg-hydrochlorothiazide 12.5 mg tablet RxNorm: 201890 1 Tablet(s) PO QAM 02/07/2015 12/09/2015 Inactive [AttnRPh: Saving apply/adjudicate RxGRP:SG20 RxBIN:[id number] RxPCN: ID#:[id number]] metformin ER 1,000 mg 24 hr tablet,extended release RxNorm: 344155 1 Tablet(s) PO QD 02/07/2015 07/19/2015 Inactive [SAVINGS FOR UNI NSURED PATIENTS -- BIN:178953, PCN: ASPROD1, Group: AME08, ID# [id number], Process claim through [employer], for questions: . THIS IS NOT INSURANCE.] diltiazem ER (XR/XT) 120 mg capsule,extended release,control led RxNorm: 358571 1 Capsule(s) PO QD 12/28/2014 02/06/2015 Inactive [SAVINGS FOR UN INSURED PATIENTS -- BIN:063781, PCN: ASPROD1, Group: AME08, ID# [id number], Process claim through [employer], for questions: . THIS IS NOT INSURANCE.] lisinopril 20 mg-hydrochlorothiazide 12.5 mg tablet RxNorm: 152839 1 Tablet(s) PO QAM 11/20/2014 10/11/2019 Inactive cefdinir 300 mg capsule RxNorm: 382715 2 Capsule(s) PO QD 07/19/2014 07/28/2014 Inactive [SAVINGS FOR NON-COVERED DRUGS -- BIN:00 3585, PCN: ASPROD1, Group: XXXXX, ID# [id number], Questions: . THIS IS NOT INSURANCE.] meclizine 25 mg tablet RxNorm: 190290 1 Tablet(s) PO QHS 07/04/2014 0 10/31/2014 Inactive [SAVINGS FOR NON-COVERED DRUGS -- BIN:00 3585, PCN: ASPROD1, Group: XXXXX, ID# [id number], Questions: . THIS IS NOT INSURANCE.] allopurinol 300 mg tablet RxNorm: 912747 1 Tablet(s) PO QD 06/17/19 15 06/15/2014 Inactive allopurinol 300 mg tablet RxNorm: 958882 1 Tablet(s) PO QD 06/17/19 15 02/06/2015 Inactive [SAVINGS FOR NON-COVERED TATYANA GS -- BIN:280270, PCN: ASPROD1, Group: XXXXX, ID# [id number], Questions: . THIS IS NOT INSURANCE.] naproxen 500 mg tablet RxNorm: 424894 1 Tablet(s) PO BID 06/16/2014 0 07/19/2015 Inactive [SAVINGS FOR NON-COVERED DRUGS -- BIN:00 3585, PCN: ASPROD1, Group: XXXXX, ID# [id number], Questions: . THIS IS NOT INSURANCE.] metformin ER 1,000 mg 24 hr tablet,extended release RxNorm: 323750 1 Tablet(s) PO QD 03/14/2014 02/06/2015 Inactive [SAVINGS FOR UNI NSURED PATIENTS -- BIN:755381, PCN: ASPROD1, Group: AME08, ID# [id number], Process claim through MedImpact, for questions: . THIS IS NOT INSURANCE.] metformin ER 500 mg tablet,extended release 24hr RxNorm: 860 975 1 Tablet(s) PO QD 01/05/2014 03/13/2014 Inactive [SAVINGS FOR UNI NSURED PATIENTS -- BIN:191962, PCN: ASPROD1, Group: AME08, ID# [id number], Process claim through MedImpact, for questions: . THIS IS NOT INSURANCE.] metformin ER 500 mg tablet,extended release 24hr RxNorm: 860 975 1 Tablet(s) PO QD 11/28/2013 01/04/2014 Inactive [SAVINGS FOR UNI NSURED PATIENTS -- BIN:643648, PCN: ASPROD1, Group: AME08, ID# [id number], Process claim through MedImpact, for questions: . THIS IS NOT INSURANCE.] Keflex 500 mg capsule RxNorm: 750325 1 Capsule(s) PO TID 11/09/2013 0 11/15/2013 Inactive [SAVINGS FOR UNINSURED PATIENTS -- BIN:0 04129, PCN: ASPROD1, Group: AME08, ID# [id number], Process claim through MedImpact, for questions: . THIS IS NOT INSURANCE.] diltiazem ER (XR/XT) 120 mg capsule,extended release,control led RxNorm: 155033 1 Capsule(s) PO QD 11/09/2013 11/03/2014 Inactive [SAVINGS FOR UN INSURED PATIENTS -- BIN:657916, PCN: ASPROD1, Group: MONSERRATEIan, ID# [id number], Process claim through MedImpact, for questions: . THIS IS NOT INSURANCE.] lisinopril 20 mg-hydrochlorothiazide 12.5 mg tablet RxNorm: 117397 2 Tablet(s) PO QAM 11/09/2013 11/20/2014 Inactive [AttnRPh: Saving apply/adjudicate RxGRP:SG20 RxBIN:[id number] RxPCN: ID#:[id number]] diltiazem ER (XR/XT) 120 mg capsule,extended release,control led RxNorm: 263650 1 Capsule(s) PO QD -need labs 10/31/2013 11/08/2013 Inactive [DELICIA INGS FOR UNINSURED PATIENTS -- BIN:883679, PCN: ASPROD1, Group: TRAN, ID# [id number], Process claim through MedImpact, for questions: . THIS IS NOT INSURANCE.] lisinopril 20 mg-hydrochlorothiazide 12.5 mg tablet RxNorm: 301675 2 Tablet(s) PO QAM 10/31/2013 11/08/2013 Inactive [AttnRPh: Saving apply/adjudicate RxGRP:SG20 RxBIN:[id number] RxPCN: ID#:[id number]] diltiazem ER (XR/XT) 120 mg capsule,extended release,control led RxNorm: 766545 1 Capsule(s) PO QD -need labs 09/12/2013 10/11/2013 Inactive [DELICIA INGS FOR UNINSURED PATIENTS -- BIN:101661, PCN: ASPROD1, Group: AME08, ID# [id number], Process claim through MedImpact, for questions: . THIS IS NOT INSURANCE.] Omnicef 300 mg capsule RxNorm: 021056 2 Capsule(s) PO QD 11/24/2012 0 11/08/2013 Inactive naproxen 500 mg tablet RxNorm: 433523 1 Tablet(s) PO TID 11/04/2012 0 11/03/2012 Inactive allopurinol 100 mg tablet RxNorm: 979184 1 Tablet(s) PO BID 013 11/08/2013 Inactive naproxen 500 mg tablet RxNorm: 985795 1 Tablet(s) PO TID 11/04/2012 0 11/08/2013 Inactive diltiazem ER (XR/XT) 120 mg capsule,extended release,control led RxNorm: 039720 1 Capsule(s) PO QD 08/02/2012 09/12/2013 Inactive lisinopril 20 mg-hydrochlorothiazide 12.5 mg tablet RxNorm: 660894 2 Tablet(s) PO QAM 08/02/2012 07/27/2013 Inactive acyclovir 800 mg tablet RxNorm: 673787 1 Tablet(s) PO D Take 1 tablet by mouth 5 times daily 02/26/2012 11/02/2012 Inactive acyclovir 800 mg tablet RxNorm: 262962 1 Tablet(s) PO D 02/25/2012 Inactive clindamycin 300 mg capsule RxNorm: 095382 1 Capsule(s) PO TID 02/2403/02/2012 Inactive lisinopril-hydrochlorothiazide 20 mg-12.5 mg tablet RxNorm: 800786 2 Tablet(s) PO QAM 01/30/2012 08/01/2012 Inactive diltiazem ER (XR/XT) 120 mg capsule,extended release,control led RxNorm: 272185 1 Capsule(s) PO QD 01/30/2012 08/01/2012 Inactive lisinopril-hydrochlorothiazide 20 mg-12.5 mg tablet RxNorm: 646136 2 Tablet(s) PO QAM 01/30/2012 10/11/2019 Inactive diltiazem ER (XR/XT) 120 mg capsule,extended release,control led RxNorm: 743690 1 Capsule(s) PO QD 01/30/2012 10/11/2019 Inactive Culturelle 10 billion cell capsule RxNorm: 563462 1 Capsule(s) PO Q D 10/16/2011 02/24/2012 Inactive Omnicef 300 mg capsule RxNorm: 801045 2 Capsule(s) PO QD 09/24/2011 0 11/02/2012 Inactive diltiazem ER (XR/XT) 120 mg capsule,extended release,control led RxNorm: 527949 1 Capsule(s) PO QD 09/09/2011 01/29/2012 Inactive Culturelle 10 billion cell Cap RxNorm: 264264 1 Capsule (s) PO BID take a few hours after Doxycycline. Probiotic 09/09/2011 09/28/2011 Inactive lisinopril-hydrochlorothiazide 20 mg-12.5 mg tablet RxNorm: 554374 2 Tablet(s) PO QAM 09/09/2011 01/29/2012 Inactive doxycycline hyclate 100 mg Tab RxNorm: 3421239 1 Tablet( s) PO BID antibiotic. (may make a little sensitive to sunburn) 09/09/2011 09/18/2011 Inactiv e lisinopril-hydrochlorothiazide 20 mg-12.5 mg Tab RxNorm: 197 886 2 Tablet(s) PO QAM Due for yearly check-up 09/08/2011 09/08/2011 Inactive diltiazem ER (XR/XT) 120 mg Continuous Release Cap RxNorm: 8 02200 1 Capsule(s) PO QD Due for yearly check-up. 09/08/2011 09/08/2011 Inactive diltiazem ER (XR/XT) 120 mg Continuous Release Cap RxNorm: 8 98772 1 Capsule(s) PO QD 08/29/2010 08/23/2011 Inactive lisinopril-hydrochlorothiazide 20 mg-12.5 mg Tab RxNorm: 197 886 2 Tablet(s) PO QAM 08/29/2010 08/23/2011 Inactive lisinopril-hydrochlorothiazide 20 mg-25 mg Tab RxNorm: 878925 1 Tablet(s) PO QD 08/21/2010 08/28/2010 Inactive allopurinol 100 mg tablet RxNorm: 627943 1 Tablet(s) PO QD 04/22/19 11 08/28/2010 Inactive allopurinol 100 mg Tab RxNorm: 093867 1 Tablet(s) PO QD 12/18/2009 Inactive Allopurinol 100 mg Tab RxNorm: 373383 1 Tablet(s) PO QD 12/12/2009 Inactive Allopurinol 100 mg Tab RxNorm: 251432 1 Tablet(s) PO QD 10/30/2009 Inactive Omnicef 300 mg Cap RxNorm: 742278 2 Capsule(s) PO QD 10/01/200910/29 Inactive Allopurinol 100 mg Tab RxNorm: 175644 1 Tablet(s) PO QD 10/01/2009 Inactive Vitamin D3 oral RxNorm: 2418 oral 04/18/2020 Active Vitamin C oral RxNorm: 1151 oral 04/18/2020 Active Vitamin B12 1000mcg Tablet RxNorm: 1 Tablet(s) PO QD 08/29/2010 Inactive lisinopril 20 mg-hydrochlorothiazide 12.5 mg tablet RxNorm: 483933 1 Tablet(s) PO QAM 11/20/2014 11/19/2014 Inactive Medrol (Sid) 4 mg tablets in a dose pack RxNorm: 860263 Tablet(s) PO as directed 11/09/2013 11/08/2013 Inactive Omnicef 300 mg Cap RxNorm: 394135 2 Capsule(s) PO QD 09/24/201112/11 Inactive Fish Oil 1,000 mg Cap RxNorm: 1 Capsule(s) PO QD 11/09/20132013 Inactive diltiazem ER (XR/XT) 120 mg Continuous Release Cap RxNorm: 8 03718 1 Capsule(s) PO QD 08/29/2010 08/28/2010 Inactive Culturelle 10 billion cell capsule RxNorm: 695781 1 Capsule(s) PO Q D 11/03/2012 11/02/2012 Inactive metformin ER 500 mg tablet,extended release 24hr RxNorm: 860 975 1 Tablet(s) PO QD 11/28/2013 11/27/2013 Inactive Lisinopril Oral RxNorm: Oral 10/01/2009 10/01/2009 Inactive Vitamin B12 1000mcg Tablet RxNorm: 1 Tablet(s) PO QD 12/18/2015 Inactive Vitamin B12 1000mcg Tablet RxNorm: 1 Tablet(s) PO QD 11/09/2013 Inactive lisinopril-hydrochlorothiazide 20 mg-25 mg Tab RxNorm: 146466 1 Tablet(s) PO QD 08/21/2010 2010 Inactive metformin ER 1,000 mg 24 hr tablet,extended release RxNorm: 663008 1 Tablet(s) PO QD 03/14/2014 03/13/2014 Inactive Fish Oil 1,000 mg capsule RxNorm: 1 Capsule(s) PO QD 12/18/2015 Inactive Medication Administered No Medication Administered data Immunizations Vaccine Codes Date Status B12 Unknown 09/24/2011 Results Observation Observation Code Item Item Code Result Date S ervice Location GLYCOSYLATED HEMOGLOBIN TEST 76450 Hgb A1c 20682-6 5.7 % 0 04/18/2020 Unknown GFR CALC 8790642 GFR Non Afr Amr >60 mL/min 04/18/2020 Un known GFR CALC 2482547 GFR Afr Amr >60 mL/min 04/18/2020 Unknow n COMPREHENSIVE METABOLIC 05124 AST 35 U/L 2020 Unknown COMPREHENSIVE METABOLIC 25788 ALT 45 U/L 2020 Unknown COMPREHENSIVE METABOLIC 64123 BUN 10 mg/dL 2020 Unknown COMPREHENSIVE METABOLIC 45471 ALBUMIN 4.3 g/dL 2020 Unknown COMPREHENSIVE METABOLIC 11965 CHLORIDE 101 mmol/L 04/18 Unknown COMPREHENSIVE METABOLIC 88949 Bili Total 0.8 mg/dL 04/18 Unknown COMPREHENSIVE METABOLIC 47494 ALK PHOS 73 U/L 2020 Unknown COMPREHENSIVE METABOLIC 70025 SODIUM 137 mmol/L 04/18 Unknown COMPREHENSIVE METABOLIC 58336 CREATININE 0.99 mg/dL 03/27 Unknown COMPREHENSIVE METABOLIC 71493 CALCIUM 9.1 mg/dL 2020 Unknown COMPREHENSIVE METABOLIC 24887 POTASSIUM 4.3 mmol/L 04/18 Unknown COMPREHENSIVE METABOLIC 55468 Total Protein 7.0 g/dL Unknown COMPREHENSIVE METABOLIC 53606 Glucose 133 mg/dL 2020 Unknown COMPREHENSIVE METABOLIC 07203 Bicarbonate 26 mmol/L 03/27 Unknown COMPREHENSIVE METABOLIC 68743 AGAP 10 mmol/L 2020 Unknown MEAN GLUC 3371816 Calc Mean Gluc 117 mg/dL 04/18/2020 Unkn own LIPID GROUP 25752 Cholesterol 187 mg/dL 04/18/2020 Unkno wn LIPID GROUP 01758 Triglyceride 87 mg/dL 04/18/2020 Unkn own L[facility] GROUP 93707 HDL CHOLESTEROL 59 mg/dL 04/18/2020 U nknown LIPID GROUP 30878 Chol/HDL Ratio 3.17 ratio 04/18/2020 U nknown LIPID GROUP 31271 NON-HDL Chol 128 mg/dL 04/18/2020 Unkn own LIPID GROUP 34950 LDL Cholesterol 111 mg/dL 04/18/2020 U nknown HEPATITIS C ANTIBODY 27662 Hepatitis C Ab Non-Reactive 02/01/2018 Unknown GLYCOSYLATED HEMOGLOBIN TEST 38670 Hgb A1c 13547-0 6.2 % 1 04/01/2017 Unknown GFR CALC 8046461 GFR Non Afr Amr >60 mL/min 01/29/2018 Un known GFR CALC 6764665 GFR Afr Amr >60 mL/min 01/29/2018 Unknow n COMPREHENSIVE METABOLIC 14547 AST 17 U/L 2017 Unknown COMPREHENSIVE METABOLIC 08694 ALT 17 U/L 2017 Unknown COMPREHENSIVE METABOLIC 20669 BUN 12 mg/dL 2017 Unknown COMPREHENSIVE METABOLIC 80692 ALBUMIN 4.6 g/dL 2017 Unknown COMPREHENSIVE METABOLIC 99000 CHLORIDE 101 mmol/L 01/29 Unknown COMPREHENSIVE METABOLIC 97909 Bili Total 0.9 mg/dL 01/29 Unknown COMPREHENSIVE METABOLIC 28099 ALK PHOS 57 U/L 2017 Unknown COMPREHENSIVE METABOLIC 02522 SODIUM 136 mmol/L 01/29 Unknown COMPREHENSIVE METABOLIC 40607 CREATININE 1.00 mg/dL 08/2017 Unknown COMPREHENSIVE METABOLIC 38492 CALCIUM 9.6 mg/dL 2017 Unknown COMPREHENSIVE METABOLIC 74307 POTASSIUM 4.2 mmol/L 01/29 Unknown COMPREHENSIVE METABOLIC 23777 Total Protein 6.9 g/dL Unknown COMPREHENSIVE METABOLIC 70956 Glucose 128 mg/dL 2017 Unknown COMPREHENSIVE METABOLIC 89780 Bicarbonate 27 mmol/L 08/2017 Unknown COMPREHENSIVE METABOLIC 98488 AGAP 8 mmol/L 2017 Unknown LIPID GROUP 56645 Cholesterol 168 mg/dL 01/29/2018 Unkno wn LIPID GROUP 90796 Triglyceride 82 mg/dL 01/29/2018 Unkn own LIPID GROUP 74799 HDL CHOLESTEROL 43 mg/dL 01/29/2018 U nknown LIPID GROUP 51562 Chol/HDL Ratio 3.91 ratio 01/29/2018 U nknown LIPID GROUP 09755 NON-HDL Chol 125 mg/dL 01/29/2018 Unkn own LIPID GROUP 69511 LDL Cholesterol 109 mg/dL 01/29/2018 U nknown MEAN GLUC 5611415 Calc Mean Gluc 131 mg/dL 01/29/2018 Unkn own LIPID GROUP 53579 Cholesterol 164 mg/dL 05/01/2017 Unkno wn LIPID GROUP 21111 Triglyceride 131 mg/dL 05/01/2017 Unkn own LIPID GROUP 76013 HDL CHOLESTEROL 45 mg/dL 05/01/2017 U nknown LIPID GROUP 47023 Chol/HDL Ratio 3.64 ratio 05/01/2017 U nknown LIPID GROUP 15947 NON-HDL Chol 119 mg/dL 05/01/2017 Unkn own LIPID GROUP 11886 LDL Cholesterol 93 mg/dL 05/01/2017 U nknown COMPLETE BLOOD COUNT 7432928 WBC 4.9 10e9/L 05/02/19 18 Unknown COMPLETE BLOOD COUNT 9087756 RBC 4.31 10e12/L 2017 Unknown COMPLETE BLOOD COUNT 0406648 HEMOGLOBIN 14.3 g/dL 05/02/19 18 Unknown COMPLETE BLOOD COUNT 8726497 HEMATOCRIT 42.8 % 05/02/19 18 Unknown COMPLETE BLOOD COUNT 6889886 MCV 99.3 fL 8 Unknown COMPLETE BLOOD COUNT 9942842 MCH 33.2 pg 8 Unknown COMPLETE BLOOD COUNT 7725957 MCHC 33.4 g/dL 8 Unknown COMPLETE BLOOD COUNT 3513374 PLATELET COUNT 241 10e9/L 10/2017 Unknown COMPLETE BLOOD COUNT 0751484 Mean Plt Volume 11.0 fL 10/2017 Unknown COMPLETE BLOOD COUNT 8997182 Neut Auto 56.6 % 8 Unknown COMPLETE BLOOD COUNT 0632941 Lymph Auto 24.7 % 05/02/19 18 Unknown COMPLETE BLOOD COUNT 1138100 Runnels Auto 11.6 % 8 Unknown COMPLETE BLOOD COUNT 4729167 RDW 13.2 % 8 Unknown COMPLETE BLOOD COUNT 5438549 Eos Auto 6.9 % 8 Unknown COMPLETE BLOOD COUNT 9239196 Baso Auto 0.2 % 8 Unknown COMPLETE BLOOD COUNT 5676769 Neutrophil Abs 2.77 10e9/L Unknown COMPLETE BLOOD COUNT 9096027 Lymphocyte Abs 1.21 10e9/L Unknown COMPLETE BLOOD COUNT 4442764 Monocyte Abs 0.57 10e9/L 10/2017 Unknown COMPLETE BLOOD COUNT 4827065 Eosinophil Abs 0.34 10e9/L Unknown COMPLETE BLOOD COUNT 8250042 RDW-SD 47.2 fL 8 Unknown COMPLETE BLOOD COUNT 6102626 Basophil Abs 0.01 10e9/L 10/2017 Unknown GLYCOSYLATED HEMOGLOBIN TEST 42051 Hgb A1c 25375-7 6.0 % 0 05/01/2017 Unknown GFR CALC 2180701 GFR Non Afr Amr >60 mL/min 05/01/2017 Un known GFR CALC 2165177 GFR Afr Amr >60 mL/min 05/01/2017 Unknow n MEAN GLUC 2291524 Calc Mean Gluc 126 mg/dL 05/01/2017 Unkn own COMPREHENSIVE METABOLIC 43842 AST 17 U/L 2017 Unknown COMPREHENSIVE METABOLIC 38993 ALT 16 U/L 2017 Unknown COMPREHENSIVE METABOLIC 06474 BUN 13 mg/dL 2017 Unknown COMPREHENSIVE METABOLIC 34368 ALBUMIN 3.9 g/dL 2017 Unknown COMPREHENSIVE METABOLIC 93949 CHLORIDE 104 mmol/L 05/01 Unknown COMPREHENSIVE METABOLIC 22646 Bili Total 0.7 mg/dL 05/01 Unknown COMPREHENSIVE METABOLIC 22415 ALK PHOS 58 U/L 2017 Unknown COMPREHENSIVE METABOLIC 17435 SODIUM 139 mmol/L 05/01 Unknown COMPREHENSIVE METABOLIC 09680 CREATININE 0.99 mg/dL 10/2017 Unknown COMPREHENSIVE METABOLIC 37924 CALCIUM 9.5 mg/dL 2017 Unknown COMPREHENSIVE METABOLIC 59316 POTASSIUM 4.3 mmol/L 05/01 Unknown COMPREHENSIVE METABOLIC 12975 Total Protein 6.7 g/dL Unknown COMPREHENSIVE METABOLIC 94800 Glucose 110 mg/dL 2017 Unknown COMPREHENSIVE METABOLIC 64882 Bicarbonate 27 mmol/L 10/2017 Unknown COMPREHENSIVE METABOLIC 43587 AGAP 8 mmol/L 2017 Unknown PSA EQUIMOLAR NITHIN 68127 PSA Total 1.10 ng/mL 8 Unknown THYROID STIMULATING HORMONE 17890 TSH 0.673 uIU/mL 05/01/2017 Unknown GLYCOSYLATED HEMOGLOBIN TEST 58882 Hgb A1c 54944-4 5.8 % 1 03/08/2015 Unknown MEAN GLUC 0676853 Calc Mean Gluc 120 mg/dL 01/07/2016 Unkn own FREE T4 90220 T4 Free 1.13 ng/dL 01/04/2016 Unknown THYROID STIMULATING HORMONE 01244 TSH 0.875 uIU/mL 01/04/2016 Unknown COMPREHENSIVE METABOLIC 73480 AST 20 U/L 2015 Unknown COMPREHENSIVE METABOLIC 61307 ALT 20 U/L 2015 Unknown COMPREHENSIVE METABOLIC 29887 BUN 14 mg/dL 2015 Unknown COMPREHENSIVE METABOLIC 54504 ALBUMIN 4.4 g/dL 2015 Unknown COMPREHENSIVE METABOLIC 95836 CHLORIDE 103 mmol/L 01/03 Unknown COMPREHENSIVE METABOLIC 41178 Bili Total 0.5 mg/dL 01/03 Unknown COMPREHENSIVE METABOLIC 66307 ALK PHOS 53 U/L 2015 Unknown COMPREHENSIVE METABOLIC 79329 SODIUM 137 mmol/L 01/03 Unknown COMPREHENSIVE METABOLIC 51715 CREATININE 0.98 mg/dL 12/24 Unknown COMPREHENSIVE METABOLIC 16053 CALCIUM 9.6 mg/dL 2015 Unknown COMPREHENSIVE METABOLIC 05151 POTASSIUM 4.5 mmol/L 01/03 Unknown COMPREHENSIVE METABOLIC 53439 Total Protein 7.0 g/dL Unknown COMPREHENSIVE METABOLIC 80570 Glucose 117 mg/dL 2015 Unknown COMPREHENSIVE METABOLIC 21448 Bicarbonate 26 mmol/L 12/24 Unknown COMPREHENSIVE METABOLIC 44054 AGAP 8 mmol/L 2015 Unknown COMPLETE BLOOD COUNT 6325481 WBC 6.2 10e9/L 01/04/20 16 Unknown COMPLETE BLOOD COUNT 1591235 RBC 4.55 10e12/L 2015 Unknown COMPLETE BLOOD COUNT 4723482 HEMOGLOBIN 15.0 g/dL 01/04/20 16 Unknown COMPLETE BLOOD COUNT 9936557 HEMATOCRIT 43.8 % 01/04/20 16 Unknown COMPLETE BLOOD COUNT 7563246 MCV 96.3 fL 6 Unknown COMPLETE BLOOD COUNT 4894436 MCH 33.0 pg 6 Unknown COMPLETE BLOOD COUNT 3036351 MCHC 34.2 g/dL 6 Unknown COMPLETE BLOOD COUNT 2654986 PLATELET COUNT 259 10e9/L 12/2015 Unknown COMPLETE BLOOD COUNT 0730253 Mean Plt Volume 10.8 fL 12/2015 Unknown COMPLETE BLOOD COUNT 7358338 Neut Auto 62.4 % 6 Unknown COMPLETE BLOOD COUNT 9479132 Lymph Auto 25.9 % 01/04/20 16 Unknown COMPLETE BLOOD COUNT 8832591 Runnels Auto 6.8 % 6 Unknown COMPLETE BLOOD COUNT 7419752 RDW 13.4 % 6 Unknown COMPLETE BLOOD COUNT 1028531 Eos Auto 4.9 % 6 Unknown COMPLETE BLOOD COUNT [id number] Baso Auto 0.0 % 6 Unknown COMPLETE BLOOD COUNT [id number] Neutrophil Abs 3.87 10e9/L Unknown COMPLETE BLOOD COUNT [id number] Lymphocyte Abs 1.61 10e9/L Unknown COMPLETE BLOOD COUNT [id number] Monocyte Abs 0.42 10e9/L 12/24 Unknown COMPLETE BLOOD COUNT [id number] Eosinophil Abs 0.30 10e9/L Unknown COMPLETE BLOOD COUNT [id number] RDW-SD 46.2 fL 6 Unknown COMPLETE BLOOD COUNT [id number] Basophil Abs 0.00 10e9/L 12/24 Unknown PSA EQUIMOLAR NITHIN 50113 PSA Total 1.14 ng/mL 6 Unknown GFR CALC [id number] GFR Non Afr Amr >60 mL/min 01/04/2016 Un known GFR CALC [id number] GFR Afr Amr >60 mL/min 01/04/2016 Unknow n [facility] 70317 Cholesterol 172 mg/dL 01/04/2016 Unkno wn [facility] 81858 Triglyceride 156 mg/dL 01/04/2016 Unkn own [facility] 94475 HDL CHOLESTEROL 42 mg/dL 01/04/2016 U nknown [facility] 64893 Chol/HDL Ratio 4.10 ratio 01/04/2016 U nknown L[facility] 86374 NON-HDL Chol 130 mg/dL 01/04/2016 Unkn own L[facility] GROUP 62614 LDL Cholesterol 99 mg/dL 01/04/2016 U nknown GLYCOSYLATED HEMOGLOBIN TEST 72784 A1C HPLC 78472-8 5.8 % 1 04/10/2014 Unknown COMPLETE BLOOD COUNT [id number] WBC 6.0 10e9/L 02/03/20 15 Unknown COMPLETE BLOOD COUNT [id number] RBC 4.39 10e12/L 2014 Unknown COMPLETE BLOOD COUNT [id number] HGB 14.3 g/dL 5 Unknown COMPLETE BLOOD COUNT [id number] HCT DET 41.7 % 5 Unknown COMPLETE BLOOD COUNT [id number] MCV 95.0 fL 5 Unknown COMPLETE BLOOD COUNT [id number] MCH 32.6 pg 5 Unknown COMPLETE BLOOD COUNT [id number] MCHC 34.3 g/dL 5 Unknown COMPLETE BLOOD COUNT [id number] PLT 272 10e9/L 02/03/20 15 Unknown COMPLETE BLOOD COUNT [id number] MPV 11.1 fL 5 Unknown COMPLETE BLOOD COUNT [id number] GARY % 62.7 % 5 Unknown COMPLETE BLOOD COUNT [id number] LY % 25.2 % 5 Unknown COMPLETE BLOOD COUNT [id number] MON % 7.9 % 5 Unknown COMPLETE BLOOD COUNT [id number] EOS % 4.0 % 5 Unknown COMPLETE BLOOD COUNT [id number] BASO % 0.2 % 5 Unknown COMPLETE BLOOD COUNT 9723354 RDW 13.2 % 5 Unknown COMPLETE BLOOD COUNT [id number] ABS GARY 3.76 10e9/L 015 Unknown COMPLETE BLOOD COUNT [id number] ABS LYMPH 1.51 10e9/L 015 Unknown COMPLETE BLOOD COUNT [id number] ABS MONO 0.47 10e9/L 015 Unknown COMPLETE BLOOD COUNT [id number] ABS EOS 0.24 10e9/L 015 Unknown COMPLETE BLOOD COUNT 1344294 ABS BASO 0.01 10e9/L 015 Unknown COMPLETE BLOOD COUNT [id number] RDW-SD 44.7 fL 5 Unknown GFR CALC 2940488 GFR AA >60 ML/MIN 02/02/2015 Unknown GFR CALC 8003107 GFR NON-AA >60 ML/MIN 02/02/2015 Unknown THYROID STIMULATING HORMONE 84845 TSH 0.970 uIU/ML 02/02/2015 Unknown LIPID GROUP 76958 HDL TEST 41 MG/DL 02/02/2015 Unknown LIPID GROUP 20417 TRIG 151 MG/DL 02/02/2015 Unknown LIPID GROUP 82402 TEST LDL 122 MG/DL 02/02/2015 Unknown LIPID GROUP 58489 CHOL 193 MG/DL 02/02/2015 Unknown LIPID GROUP 43455 RCHOL/HDL 4.71 RATIO 02/02/2015 Unknow n LIPID GROUP 55864 NON-HDL CH 152 MG/DL 02/02/2015 Unknow n PSA EQUIMOLAR NITHIN 24856 PSA EQ 0.76 NG/ML 5 Unknown FREE T4 99425 FREE T4 0.93 NG/DL 02/02/2015 Unknown COMPREHENSIVE METABOLIC 81753 AST 21 U/L 2014 Unknown COMPREHENSIVE METABOLIC 59962 ALT 21 IU/L 2014 Unknown COMPREHENSIVE METABOLIC 69677 BUN 15 MG/DL 2014 Unknown COMPREHENSIVE METABOLIC 60206 ALBUMIN 4.5 GM/DL 2014 Unknown COMPREHENSIVE METABOLIC 84278 CHLORIDE 104 MMOL/L 02/02 Unknown COMPREHENSIVE METABOLIC 64770 BILI TOT 1.0 MG/DL 2014 Unknown COMPREHENSIVE METABOLIC 14452 ALK PHOS 71 U/L 2014 Unknown COMPREHENSIVE METABOLIC 16544 SODIUM 136 MMOL/L 02/02 Unknown COMPREHENSIVE METABOLIC 97015 CREATININE 0.94 MG/DL 01/23 Unknown COMPREHENSIVE METABOLIC 56065 CALCIUM 9.8 MG/DL 2014 Unknown COMPREHENSIVE METABOLIC 11293 POTASSIUM 4.3 MMOL/L 02/02 Unknown COMPREHENSIVE METABOLIC 58586 PROT TOT 6.9 GM/DL 2014 Unknown COMPREHENSIVE METABOLIC 95346 Glucose 113 MG/DL 2014 Unknown COMPREHENSIVE METABOLIC 64187 BICARB 26 MMOL/L 2014 Unknown COMPREHENSIVE METABOLIC 11299 ANION GAP 6 MEQ/L 2014 Unknown ANTI STREPTOLYSIN O TITER(ASO) 97235 ASO 57 IU/ML 06/19/2014 Unknown RA FACTOR 25333 RA FACTOR <20.0 IU/ML 06/15/2014 Unknown FREE T4 09860 FREE T4 1.19 NG/DL 06/15/2014 Unknown ANTINUCLEAR ANTIBODY SCREEN 69147 SHANNON SCR <1:80 Unknown ERYTHROCYTE SEDIMENTATION RATE 94433 ESR 2 MM/HR 06/14/2014 Unknown COMPLETE BLOOD COUNT [id number] WBC 6.7 10e9/L 06/15/19 15 Unknown COMPLETE BLOOD COUNT [id number] RBC 4.86 10e12/L 2014 Unknown COMPLETE BLOOD COUNT 7764738 HGB 15.9 g/dL 5 Unknown COMPLETE BLOOD COUNT [id number] HCT DET 45.0 % 5 Unknown COMPLETE BLOOD COUNT 5512708 MCV 92.6 fL 5 Unknown COMPLETE BLOOD COUNT 1294664 MCH 32.7 pg 5 Unknown COMPLETE BLOOD COUNT 6010003 MCHC 35.3 g/dL 5 Unknown COMPLETE BLOOD COUNT 9917648 PLT 299 10e9/L 06/15/19 15 Unknown COMPLETE BLOOD COUNT 1761076 MPV 10.0 fL 5 Unknown COMPLETE BLOOD COUNT 6130159 GARY % 63.8 % 5 Unknown COMPLETE BLOOD COUNT 0282572 LY % 18.3 % 5 Unknown COMPLETE BLOOD COUNT [id number] MON % 12.1 % 5 Unknown COMPLETE BLOOD COUNT 6774836 EOS % 5.7 % 5 Unknown COMPLETE BLOOD COUNT 7459155 BASO % 0.1 % 5 Unknown COMPLETE BLOOD COUNT 4671020 RDW 13.3 % 5 Unknown COMPLETE BLOOD COUNT 7207814 ABS GARY 4.27 10e9/L 015 Unknown COMPLETE BLOOD COUNT 0992103 ABS LYMPH 1.23 10e9/L 015 Unknown COMPLETE BLOOD COUNT 1896789 ABS MONO 0.81 10e9/L 015 Unknown COMPLETE BLOOD COUNT 1338628 ABS EOS 0.38 10e9/L 015 Unknown COMPLETE BLOOD COUNT 1728260 ABS BASO 0.01 10e9/L 015 Unknown COMPLETE BLOOD COUNT 6011722 RDW-SD 44.3 fL 5 Unknown URIC ACID 11149 URIC ACID 7.6 MG/DL 06/14/[place] [address] SYP AB NR 06/14/2014 Unknown THYROID STIMULATING HORMONE 64086 TSH 0.825 uIU/ML 06/14/2014 Unknown GLYCOSYLATED HEMOGLOBIN TEST 99397 A1C HPLC 76012-8 6.0 % 0 06/14/2014 Unknown VITAMIN B 12 FOLIC ACID 65424|25088 VIT B 12 751 PG/ML 05/25 Unknown VITAMIN B 12 FOLIC ACID 57832|77266 FOLIC ACID 23.5 NG/ML Unknown GFR CALC 9339175 GFR AA >60 ML/MIN 06/14/2014 Unknown GFR CALC 9508102 GFR NON-AA >60 ML/MIN 06/14/2014 Unknown C-REACTIVE PROTEIN (CRP) QUANT 74282 CRP 0.1 MG/DL 06/14/2014 Unknown COMPREHENSIVE METABOLIC 78070 AST 19 U/L 2014 Unknown COMPREHENSIVE METABOLIC 52338 ALT 16 IU/L 2014 Unknown COMPREHENSIVE METABOLIC 15861 BUN 13 MG/DL 2014 Unknown COMPREHENSIVE METABOLIC 63492 ALBUMIN 5.1 GM/DL 2014 Unknown COMPREHENSIVE METABOLIC 90016 CHLORIDE 92 MMOL/L 2014 Unknown COMPREHENSIVE METABOLIC 04486 BILI TOT 0.6 MG/DL 2014 Unknown COMPREHENSIVE METABOLIC 38923 ALK PHOS 61 U/L 2014 Unknown COMPREHENSIVE METABOLIC 55459 SODIUM 128 MMOL/L 06/14 Unknown COMPREHENSIVE METABOLIC 15185 CREATININE 1.00 MG/DL 05/25 Unknown COMPREHENSIVE METABOLIC 99582 CALCIUM 10.7 MG/DL 06/14 Unknown COMPREHENSIVE METABOLIC 76591 POTASSIUM 4.1 MMOL/L 06/14 Unknown COMPREHENSIVE METABOLIC 55532 PROT TOT 7.6 GM/DL 2014 Unknown COMPREHENSIVE METABOLIC 96143 Glucose 106 MG/DL 2014 Unknown COMPREHENSIVE METABOLIC 65323 BICARB 29 MMOL/L 2014 Unknown COMPREHENSIVE METABOLIC 50429 ANION GAP 7 MEQ/L 2014 Unknown COMPREHENSIVE METABOLIC 25511 AST 21 U/L 2014 Unknown COMPREHENSIVE METABOLIC 13115 ALT 26 IU/L 2014 Unknown COMPREHENSIVE METABOLIC 26134 BUN 16 MG/DL 2014 Unknown COMPREHENSIVE METABOLIC 66907 ALBUMIN 4.6 GM/DL 2014 Unknown COMPREHENSIVE METABOLIC 22834 CHLORIDE 99 MMOL/L 2014 Unknown COMPREHENSIVE METABOLIC 54921 BILI TOT 0.5 MG/DL 2014 Unknown COMPREHENSIVE METABOLIC 76754 ALK PHOS 57 U/L 2014 Unknown COMPREHENSIVE METABOLIC 10761 SODIUM 134 MMOL/L 03/09 Unknown COMPREHENSIVE METABOLIC 50785 CREATININE 0.91 MG/DL 02/23 Unknown COMPREHENSIVE METABOLIC 21739 CALCIUM 9.9 MG/DL 2014 Unknown COMPREHENSIVE METABOLIC 76070 POTASSIUM 4.3 MMOL/L 03/09 Unknown COMPREHENSIVE METABOLIC 23892 PROT TOT 7.0 GM/DL 2014 Unknown COMPREHENSIVE METABOLIC 96039 Glucose 91 MG/DL 2014 Unknown COMPREHENSIVE METABOLIC 14640 BICARB 30 MMOL/L 2014 Unknown COMPREHENSIVE METABOLIC 15262 ANION GAP 5 MEQ/L 2014 Unknown GLYCOSYLATED HEMOGLOBIN TEST 75626 A1C HPLC 51338-5 6.4 % 0 03/09/2014 Unknown GFR CALC 5692642 GFR AA >60 ML/MIN 03/09/2014 Unknown GFR CALC 7575090 GFR NON-AA >60 ML/MIN 03/09/2014 Unknown GLYCOSYLATED HEMOGLOBIN TEST 46575 A1C HPLC 12144-1 6.0 % 0 11/22/2013 Unknown THYROID STIMULATING HORMONE 40561 TSH 0.643 uIU/ML 11/18/2013 Unknown PSA EQUIMOLAR NITHIN 54050 PSA EQ 0.75 NG/ML 4 Unknown COMPREHENSIVE METABOLIC 17708 AST 21 U/L 2013 Unknown COMPREHENSIVE METABOLIC 09980 ALT 22 IU/L 2013 Unknown COMPREHENSIVE METABOLIC 18052 BUN 16 MG/DL 2013 Unknown COMPREHENSIVE METABOLIC 85168 ALBUMIN 4.6 GM/DL 2013 Unknown COMPREHENSIVE METABOLIC 03715 CHLORIDE 97 MMOL/L 2013 Unknown COMPREHENSIVE METABOLIC 37395 BILI TOT 0.8 MG/DL 2013 Unknown COMPREHENSIVE METABOLIC 85896 ALK PHOS 68 U/L 2013 Unknown COMPREHENSIVE METABOLIC 94833 SODIUM 132 MMOL/L 11/18 Unknown COMPREHENSIVE METABOLIC 56883 CREATININE 0.95 MG/DL 10/25 Unknown COMPREHENSIVE METABOLIC 66789 CALCIUM 10.1 MG/DL 11/18 Unknown COMPREHENSIVE METABOLIC 85946 POTASSIUM 4.2 MMOL/L 11/18 Unknown COMPREHENSIVE METABOLIC 35843 PROT TOT 7.2 GM/DL 2013 Unknown COMPREHENSIVE METABOLIC 07706 Glucose 125 MG/DL 2013 Unknown COMPREHENSIVE METABOLIC 13786 BICARB 26 MMOL/L 2013 Unknown COMPREHENSIVE METABOLIC 50270 ANION GAP 9 MEQ/L 2013 Unknown COMPLETE BLOOD COUNT 7224256 WBC 7.3 10e9/L 11/19/19 14 Unknown COMPLETE BLOOD COUNT 5800324 RBC 4.68 10e12/L 2013 Unknown COMPLETE BLOOD COUNT 6767789 HGB 15.4 g/dL 4 Unknown COMPLETE BLOOD COUNT 4031205 HCT DET 43.4 % 4 Unknown COMPLETE BLOOD COUNT 8047312 MCV 92.7 fL 4 Unknown COMPLETE BLOOD COUNT 9813994 MCH 32.9 pg 4 Unknown COMPLETE BLOOD COUNT 7077164 MCHC 35.5 g/dL 4 Unknown COMPLETE BLOOD COUNT 2072250 PLT 286 10e9/L 11/19/19 14 Unknown COMPLETE BLOOD COUNT 8579139 MPV 10.8 fL 4 Unknown COMPLETE BLOOD COUNT 4710464 GARY % 61.6 % 4 Unknown COMPLETE BLOOD COUNT 7394399 LY % 25.6 % 4 Unknown COMPLETE BLOOD COUNT 7307041 MON % 8.7 % 4 Unknown COMPLETE BLOOD COUNT 6807154 EOS % 4.0 % 4 Unknown COMPLETE BLOOD COUNT 2381151 BASO % 0.1 % 4 Unknown COMPLETE BLOOD COUNT 4829395 RDW 12.9 % 4 Unknown COMPLETE BLOOD COUNT 0859337 ABS GARY 4.50 10e9/L 014 Unknown COMPLETE BLOOD COUNT 6245367 ABS LYMPH 1.87 10e9/L 014 Unknown COMPLETE BLOOD COUNT 2977557 ABS MONO 0.64 10e9/L 014 Unknown COMPLETE BLOOD COUNT 2748858 ABS EOS 0.29 10e9/L 014 Unknown COMPLETE BLOOD COUNT 9133495 ABS BASO 0.01 10e9/L 014 Unknown COMPLETE BLOOD COUNT 5923198 RDW-SD 42.9 fL 4 Unknown LIPID GROUP 79609 HDL TEST 52 MG/DL 11/18/2013 Unknown LIPID GROUP 66944 TRIG 100 MG/DL 11/18/2013 Unknown LIPID GROUP 65063 TEST LDL 110 MG/DL 11/18/2013 Unknown LIPID GROUP 91013 CHOL 182 MG/DL 11/18/2013 Unknown LIPID GROUP 64423 RCHOL/HDL 3.50 RATIO 11/18/2013 Unknow n LIPID GROUP 78654 NON-HDL CH 130 MG/DL 11/18/2013 Unknow n FREE T4 29989 FREE T4 1.28 NG/DL 11/18/2013 Unknown GFR CALC 3966711 GFR AA >60 ML/MIN 11/18/2013 Unknown GFR CALC 4414311 GFR NON-AA >60 ML/MIN 11/18/2013 Unknown COMPREHENSIVE METABOLIC 88803 AST 21 U/L 2012 Unknown COMPREHENSIVE METABOLIC 96322 ALT 20 IU/L 2012 Unknown COMPREHENSIVE METABOLIC 43130 BUN 12 MG/DL 2012 Unknown COMPREHENSIVE METABOLIC 26504 ALBUMIN 4.6 GM/DL 2012 Unknown COMPREHENSIVE METABOLIC 51318 CHLORIDE 105 MMOL/L 11/03 Unknown COMPREHENSIVE METABOLIC 15492 BILI TOT 0.5 MG/DL 2012 Unknown COMPREHENSIVE METABOLIC 71305 ALK PHOS 53 U/L 2012 Unknown COMPREHENSIVE METABOLIC 88374 SODIUM 138 MMOL/L 11/03 Unknown COMPREHENSIVE METABOLIC 46500 CREATININE 0.93 MG/DL 10/24 Unknown COMPREHENSIVE METABOLIC 75348 CALCIUM 9.7 MG/DL 2012 Unknown COMPREHENSIVE METABOLIC 17077 POTASSIUM 4.3 MMOL/L 11/03 Unknown COMPREHENSIVE METABOLIC 28260 PROT TOT 7.0 GM/DL 2012 Unknown COMPREHENSIVE METABOLIC 60444 Glucose 117 MG/DL 2012 Unknown COMPREHENSIVE METABOLIC 43222 BICARB 25 MMOL/L 2012 Unknown COMPREHENSIVE METABOLIC 08102 ANION GAP 8 MEQ/L 2012 Unknown GFR CALC 3293493 GFR AA >60 ML/MIN 11/03/2012 Unknown GFR CALC 8207663 GFR NON-AA >60 ML/MIN 11/03/2012 Unknown THYROID STIMULATING HORMONE 91622 TSH 1.218 uIU/ML 11/03/2012 Unknown URIC ACID 41325 URIC ACID 7.6 MG/DL 11/03/2012 Unknown COMPLETE BLOOD COUNT 7480363 WBC 5.0 10e9/L 11/04/19 13 Unknown COMPLETE BLOOD COUNT 2883475 RBC 4.70 10e12/L 2012 Unknown COMPLETE BLOOD COUNT 6959819 HGB 15.6 g/dL 3 Unknown COMPLETE BLOOD COUNT 4646374 HCT DET 44.2 % 3 Unknown COMPLETE BLOOD COUNT 7958691 MCV 94.0 fL 3 Unknown COMPLETE BLOOD COUNT 4622760 MCH 33.2 pg 3 Unknown COMPLETE BLOOD COUNT 9240684 MCHC 35.3 g/dL 3 Unknown COMPLETE BLOOD COUNT 4833513 PLT 248 10e9/L 11/04/19 13 Unknown COMPLETE BLOOD COUNT 3877892 MPV 10.9 fL 3 Unknown COMPLETE BLOOD COUNT 5406037 GARY % 58.3 % 3 Unknown COMPLETE BLOOD COUNT 0269630 LY % 27.9 % 3 Unknown COMPLETE BLOOD COUNT 8306740 MON % 7.0 % 3 Unknown COMPLETE BLOOD COUNT 0783158 EOS % 6.6 % 3 Unknown COMPLETE BLOOD COUNT 8722642 BASO % 0.2 % 3 Unknown COMPLETE BLOOD COUNT 5050530 RDW 13.2 % 3 Unknown COMPLETE BLOOD COUNT 9312792 ABS GARY 2.92 10e9/L 013 Unknown COMPLETE BLOOD COUNT 8763236 ABS LYMPH 1.40 10e9/L 013 Unknown COMPLETE BLOOD COUNT 7091384 ABS MONO 0.35 10e9/L 013 Unknown COMPLETE BLOOD COUNT 0276958 ABS EOS 0.33 10e9/L 013 Unknown COMPLETE BLOOD COUNT 8398797 ABS BASO 0.01 10e9/L 013 Unknown COMPLETE BLOOD COUNT 7188870 RDW-SD 44.1 fL 3 Unknown HERPE1/2MG 36705|21677|22120 HSV G1 EIA 1.78 INDEX 3 Unknown HERPE1/2MG 53513|02836|33672 HSVM1/2EIA 0.15 02/26/2012 Unknown HERPE1/2MG 80220|62093|98345 HSV G2 EIA 10.14 INDEX 02/25/19 13 Unknown COMPLETE BLOOD COUNT 8708396 WBC 9.4 10e9/L 02/24/19 13 Unknown COMPLETE BLOOD COUNT 3749628 RBC 4.54 10e12/L 2012 Unknown COMPLETE BLOOD COUNT 5832211 HGB 14.9 g/dL 3 Unknown COMPLETE BLOOD COUNT 6053938 HCT DET 43.0 % 3 Unknown COMPLETE BLOOD COUNT 3528369 MCV 94.7 fL 3 Unknown COMPLETE BLOOD COUNT 0161264 MCH 32.8 pg 3 Unknown COMPLETE BLOOD COUNT 9923617 MCHC 34.7 g/dL 3 Unknown COMPLETE BLOOD COUNT 5313589 PLT 251 10e9/L 02/24/19 13 Unknown COMPLETE BLOOD COUNT 9509045 MPV 11.1 fL 3 Unknown COMPLETE BLOOD COUNT 5754645 AGRY % 75.0 % 3 Unknown COMPLETE BLOOD COUNT 0447607 LY % 15.7 % 3 Unknown COMPLETE BLOOD COUNT 7996759 MON % 6.8 % 3 Unknown COMPLETE BLOOD COUNT 3966528 EOS % 2.3 % 3 Unknown COMPLETE BLOOD COUNT 1762857 BASO % 0.2 % 3 Unknown COMPLETE BLOOD COUNT 1399836 RDW 13.2 % 3 Unknown COMPLETE BLOOD COUNT 3943509 ABS GARY 7.05 10e9/L 013 Unknown COMPLETE BLOOD COUNT 3760576 ABS LYMPH 1.48 10e9/L 013 Unknown COMPLETE BLOOD COUNT 2174283 ABS MONO 0.64 10e9/L 013 Unknown COMPLETE BLOOD COUNT 6968078 ABS EOS 0.22 10e9/L 013 Unknown COMPLETE BLOOD COUNT 4100144 ABS BASO 0.02 10e9/L 013 Unknown COMPLETE BLOOD COUNT 1847644 RDW-SD 44.3 fL 3 Unknown COMPREHENSIVE METABOLIC 02872 AST 21 U/L 2012 Unknown COMPREHENSIVE METABOLIC 04999 ALT 22 IU/L 2012 Unknown COMPREHENSIVE METABOLIC 31189 BUN 12 MG/DL 2012 Unknown COMPREHENSIVE METABOLIC 14132 ALBUMIN 4.9 GM/DL 2012 Unknown COMPREHENSIVE METABOLIC 60636 CHLORIDE 102 MMOL/L 02/24 Unknown COMPREHENSIVE METABOLIC 40003 BILI TOT 0.6 MG/DL 2012 Unknown COMPREHENSIVE METABOLIC 51083 ALK PHOS 59 U/L 2012 Unknown COMPREHENSIVE METABOLIC 11629 SODIUM 137 MMOL/L 02/24 Unknown COMPREHENSIVE METABOLIC 49384 CREATININE 0.92 MG/DL 03/2012 Unknown COMPREHENSIVE METABOLIC 26967 CALCIUM 9.7 MG/DL 2012 Unknown COMPREHENSIVE METABOLIC 76803 POTASSIUM 4.1 MMOL/L 02/24 Unknown COMPREHENSIVE METABOLIC 11177 PROT TOT 6.9 GM/DL 2012 Unknown COMPREHENSIVE METABOLIC 26976 Glucose 127 MG/DL 2012 Unknown COMPREHENSIVE METABOLIC 38370 BICARB 25 MMOL/L 2012 Unknown COMPREHENSIVE METABOLIC 83116 ANION GAP 10 MEQ/L 2012 Unknown GFR CALC 3881491 GFR AA >60 ML/MIN 02/25/2012 Unknown GFR CALC 0869729 GFR NON-AA >60 ML/MIN 02/25/2012 Unknown TULAREM AB 1557645 TULAREM AB <1:20 09/23/2011 Unknown [place] FEVER 92922H7 IGG RMSF <1:16 0 09/19/2011 Unknown [place] FEVER 37472O0 IGM RMSF <1:10 0 09/19/2011 Unknown E CHAFF AB 3368673 IGG E CHFF <1:16 09/19/2011 Unknown E CHAFF AB 1847861 IGM E CHFF <1:10 09/19/2011 Unknown GLYCOSYLATED HEMOGLOBIN TEST 95717 A1C HPLC 29784-7 5.4 % 0 09/18/2011 Unknown GFR CALC 5946795 GFR AA >60 ML/MIN 09/17/2011 Unknown GFR CALC 0224128 GFR NON-AA >60 ML/MIN 09/17/2011 Unknown VITAMIN B 12 FOLIC ACID 60276|98620 VIT B 12 405 PG/ML 08/24 Unknown VITAMIN B 12 FOLIC ACID 52687|02854 FOLIC ACID 17.5 NG/ML Unknown COMPREHENSIVE METABOLIC 39427 AST 19 U/L 2011 Unknown COMPREHENSIVE METABOLIC 74994 ALT 19 IU/L 2011 Unknown COMPREHENSIVE METABOLIC 28340 BUN 12 MG/DL 2011 Unknown COMPREHENSIVE METABOLIC 43990 ALBUMIN 4.9 GM/DL 2011 Unknown COMPREHENSIVE METABOLIC 89951 CHLORIDE 98 MMOL/L 2011 Unknown COMPREHENSIVE METABOLIC 56022 BILI TOT 1.2 MG/DL 2011 Unknown COMPREHENSIVE METABOLIC 11950 ALK PHOS 60 U/L 2011 Unknown COMPREHENSIVE METABOLIC 68413 SODIUM 133 MMOL/L 09/16 Unknown COMPREHENSIVE METABOLIC 26487 CREATININE 1.12 MG/DL 08/24 Unknown COMPREHENSIVE METABOLIC 82472 CALCIUM 10.1 MG/DL 09/16 Unknown COMPREHENSIVE METABOLIC 25917 POTASSIUM 4.1 MMOL/L 09/16 Unknown COMPREHENSIVE METABOLIC 55367 PROT TOT 7.6 GM/DL 2011 Unknown COMPREHENSIVE METABOLIC 44030 Glucose 121 MG/DL 2011 Unknown COMPREHENSIVE METABOLIC 25321 BICARB 25 MMOL/L 2011 Unknown COMPREHENSIVE METABOLIC 73201 ANION GAP 10 MEQ/L 2011 Unknown COMPLETE BLOOD COUNT 11991 WBC 5.8 10e9/L 09/17/19 12 Unknown COMPLETE BLOOD COUNT 07166 RBC 5.01 10e12/L 2011 Unknown COMPLETE BLOOD COUNT 07201 HGB 16.4 g/dL 2 Unknown COMPLETE BLOOD COUNT 87405 HCT DET 46.7 % 2 Unknown COMPLETE BLOOD COUNT 44651 MCV 93.2 fL 2 Unknown COMPLETE BLOOD COUNT 46786 MCH 32.7 pg 2 Unknown COMPLETE BLOOD COUNT 22510 MCHC 35.1 g/dL 2 Unknown COMPLETE BLOOD COUNT 36737 PLT 275 10e9/L 09/17/19 12 Unknown COMPLETE BLOOD COUNT 15223 MPV 10.8 fL 2 Unknown COMPLETE BLOOD COUNT 28951 GARY % 47.1 % 2 Unknown COMPLETE BLOOD COUNT 84172 LY % 37.2 % 2 Unknown COMPLETE BLOOD COUNT 06487 MON % 9.5 % 2 Unknown COMPLETE BLOOD COUNT 95413 EOS % 5.9 % 2 Unknown COMPLETE BLOOD COUNT 14754 BASO % 0.3 % 2 Unknown COMPLETE BLOOD COUNT 31338 RDW 13.0 % 2 Unknown COMPLETE BLOOD COUNT 39011 ABS GARY 2.73 10e9/L 012 Unknown COMPLETE BLOOD COUNT 68412 ABS LYMPH 2.16 10e9/L 012 Unknown COMPLETE BLOOD COUNT 84465 ABS MONO 0.55 10e9/L 012 Unknown COMPLETE BLOOD COUNT 33255 ABS EOS 0.34 10e9/L 012 Unknown COMPLETE BLOOD COUNT 99677 ABS BASO 0.02 10e9/L 012 Unknown COMPLETE BLOOD COUNT 63934 RDW-SD 43.1 fL 2 Unknown LIPID GROUP 35220 HDL TEST 39 MG/DL 09/17/2011 Unknown LIPID GROUP 85983 TRIG 195 MG/DL 09/17/2011 Unknown LIPID GROUP 30781 TEST LDL 98 MG/DL 09/17/2011 Unknown LIPID GROUP 67946 CHOL 176 MG/DL 09/17/2011 Unknown LIPID GROUP 26640 RCHOL/HDL 4.51 RATIO 09/17/2011 Unknow n THYROID STIMULATING HORMONE 81383 TSH 2.892 uIU/ML 08/29/2010 Unknown COMPLETE BLOOD COUNT 43457 WBC 6.5 10e9/L 08/30/19 11 Unknown COMPLETE BLOOD COUNT 10556 RBC 4.83 10e12/L 2010 Unknown COMPLETE BLOOD COUNT 21363 HGB 15.9 g/dL 1 Unknown COMPLETE BLOOD COUNT 26535 HCT DET 44.4 % 1 Unknown COMPLETE BLOOD COUNT 10775 MCV 91.9 fL 1 Unknown COMPLETE BLOOD COUNT 51780 MCH 32.9 pg 1 Unknown COMPLETE BLOOD COUNT 94534 MCHC 35.8 g/dL 1 Unknown COMPLETE BLOOD COUNT 74143 PLT 273 10e9/L 08/30/19 11 Unknown COMPLETE BLOOD COUNT 78897 MPV 10.1 fL 1 Unknown COMPLETE BLOOD COUNT 72977 GARY % 45.3 % 1 Unknown COMPLETE BLOOD COUNT 53859 LY % 39.3 % 1 Unknown COMPLETE BLOOD COUNT 04169 MON % 9.8 % 1 Unknown COMPLETE BLOOD COUNT 66945 EOS % 5.4 % 1 Unknown COMPLETE BLOOD COUNT 68543 BASO % 0.2 % 1 Unknown COMPLETE BLOOD COUNT 69959 RDW 13.2 % 1 Unknown COMPLETE BLOOD COUNT 53139 ABS GARY 2.94 10e9/L 011 Unknown COMPLETE BLOOD COUNT 97865 ABS LYMPH 2.55 10e9/L 011 Unknown COMPLETE BLOOD COUNT 35690 ABS MONO 0.64 10e9/L 011 Unknown COMPLETE BLOOD COUNT 62426 ABS EOS 0.35 10e9/L 011 Unknown COMPLETE BLOOD COUNT 70860 ABS BASO 0.01 10e9/L 011 Unknown COMPLETE BLOOD COUNT 42301 RDW-SD 43.5 fL 1 Unknown FREE T4 18495 FREE T4 1.39 NG/DL 08/29/2010 Unknown LIPID GROUP 92564 HDL TEST 52 MG/DL 08/29/2010 Unknown LIPID GROUP 54366 TRIG 110 MG/DL 08/29/2010 Unknown LIPID GROUP 37925 TEST LDL 109 MG/DL 08/29/2010 Unknown LIPID GROUP 41385 CHOL 183 MG/DL 08/29/2010 Unknown LIPID GROUP 70021 RCHOL/HDL 3.52 RATIO 08/29/2010 Unknow n PSA EQUIMOLAR NITHIN 36863 PSA EQ 1.14 NG/ML 1 Unknown GFR CALC 4035287 GFR AA >60 ML/MIN 08/29/2010 Unknown GFR CALC 0753122 GFR NON-AA >60 ML/MIN 08/29/2010 Unknown COMPREHENSIVE METABOLIC 94232 AST 23 U/L 2010 Unknown COMPREHENSIVE METABOLIC 11869 ALT 19 IU/L 2010 Unknown COMPREHENSIVE METABOLIC 42875 BUN 12 MG/DL 2010 Unknown COMPREHENSIVE METABOLIC 87631 ALBUMIN 4.9 GM/DL 2010 Unknown COMPREHENSIVE METABOLIC 10920 CHLORIDE 95 MMOL/L 2010 Unknown COMPREHENSIVE METABOLIC 73891 BILI TOT 0.4 MG/DL 2010 Unknown COMPREHENSIVE METABOLIC 57100 ALK PHOS 59 U/L 2010 Unknown COMPREHENSIVE METABOLIC 67861 SODIUM 132 MMOL/L 08/29 Unknown COMPREHENSIVE METABOLIC 60283 CREATININE 0.96 MG/DL 08/2010 Unknown COMPREHENSIVE METABOLIC 52418 CALCIUM 10.6 MG/DL 08/29 Unknown COMPREHENSIVE METABOLIC 65401 POTASSIUM 4.0 MMOL/L 08/29 Unknown COMPREHENSIVE METABOLIC 73176 PROT TOT 8.0 GM/DL 2010 Unknown COMPREHENSIVE METABOLIC 58519 Glucose 105 MG/DL 2010 Unknown COMPREHENSIVE METABOLIC 96525 BICARB 22 MMOL/L 2010 Unknown COMPREHENSIVE METABOLIC 21618 ANION GAP 15 MEQ/L 2010 Unknown URIC ACID 45085 URIC ACID 6.7 MG/DL 12/12/2009 Unknown Procedures Procedure Codes Date ROUTINE VENIPUNCTURE CPT-4: 50306 04/18/2020 COMPREHEN METABOLIC PANEL CPT-4: 75424 04/18/2020 LIPID PANEL CPT-4: 47433 04/18/2020 A1C HPLC CPT-4: 03868 04/18/2020 PPPS, subseq visit CPT-4: G0439 10/12/2019 ROUTINE VENIPUNCTURE CPT-4: 99169 01/29/2018 COMPREHEN METABOLIC PANEL CPT-4: 91109 01/29/2018 LIPID PANEL CPT-4: 29451 01/29/2018 A1C HPLC CPT-4: 62710 01/29/2018 HEPATITIS C AB TEST CPT-4: 28493 01/29/2018 ROUTINE VENIPUNCTURE CPT-4: 49877 05/01/2017 ASSAY THYROID STIM HORMONE CPT-4: 90313 05/01/2017 COMPREHEN METABOLIC PANEL CPT-4: 21427 05/01/2017 COMPLETE CBC W/AUTO DIFF WBC CPT-4: 46919 05/01/2017 LIPID PANEL CPT-4: 59426 05/01/2017 A1C HPLC CPT-4: 47578 05/01/2017 ASSAY OF PSA TOTAL CPT-4: 23028 05/01/2017 ROUTINE VENIPUNCTURE CPT-4: 21685 01/04/2016 ASSAY OF FREE THYROXINE CPT-4: 49480 01/04/2016 ASSAY THYROID STIM HORMONE CPT-4: 12772 01/04/2016 COMPREHEN METABOLIC PANEL CPT-4: 61697 01/04/2016 COMPLETE CBC W/AUTO DIFF WBC CPT-4: 38670 01/04/2016 LIPID PANEL CPT-4: 66533 01/04/2016 ASSAY OF PSA TOTAL CPT-4: 38886 01/04/2016 A1C HPLC CPT-4: 06813 01/04/2016 ROUTINE VENIPUNCTURE CPT-4: 61488 02/02/2015 ASSAY OF FREE THYROXINE CPT-4: 62495 02/02/2015 ASSAY THYROID STIM HORMONE CPT-4: 82177 02/02/2015 COMPREHEN METABOLIC PANEL CPT-4: 76657 02/02/2015 COMPLETE CBC W/AUTO DIFF WBC CPT-4: 27608 02/02/2015 LIPID PANEL CPT-4: 20145 02/02/2015 ASSAY OF PSA TOTAL CPT-4: 67023 02/02/2015 A1C HPLC CPT-4: 35380 02/02/2015 THER/PROPH/DIAG INJ SC/IM CPT-4: 45454 07/19/2014 METHYLPREDNISOLONE 40 MG INJ CPT-4: J1030 07/19/2014 TRIAMCINOLONE ACET INJ NOS CPT-4: J3301 07/19/2014 ROUTINE VENIPUNCTURE CPT-4: 96310 06/14/2014 ASSAY OF FREE THYROXINE CPT-4: 10431 06/14/2014 ASSAY THYROID STIM HORMONE CPT-4: 95209 06/14/2014 COMPREHEN METABOLIC PANEL CPT-4: 46040 06/14/2014 COMPLETE CBC W/AUTO DIFF WBC CPT-4: 04327 06/14/2014 A1C HPLC CPT-4: 05199 06/14/2014 VITAMIN B 12 FOLIC ACID CPT-4: 84992|13403 06/14/2014 RBC SED RATE AUTOMATED CPT-4: 96768 06/14/2014 RHEUMATOID FACTOR QUANT CPT-4: 65307 06/14/2014 ANTINUCLEAR ANTIBODIES CPT-4: 91431 06/14/2014 ANTISTREPTOLYSIN O TITER CPT-4: 09475 06/14/2014 ASSAY OF BLOOD/URIC ACID CPT-4: 48196 06/14/2014 C-REACTIVE PROTEIN CPT-4: 56475 06/14/2014 ROUTINE VENIPUNCTURE CPT-4: 49259 03/09/2014 COMPREHEN METABOLIC PANEL CPT-4: 44542 03/09/2014 A1C HPLC CPT-4: 70516 03/09/2014 ROUTINE VENIPUNCTURE CPT-4: 72143 11/18/2013 ASSAY OF FREE THYROXINE CPT-4: 86285 11/18/2013 ASSAY THYROID STIM HORMONE CPT-4: 61592 11/18/2013 COMPREHEN METABOLIC PANEL CPT-4: 06016 11/18/2013 COMPLETE CBC W/AUTO DIFF WBC CPT-4: 71771 11/18/2013 LIPID PANEL CPT-4: 18850 11/18/2013 ASSAY OF PSA TOTAL CPT-4: 02413 11/18/2013 A1C HPLC CPT-4: 42752 11/18/2013 REMOVE FOREIGN BODY CPT-4: 49898 11/09/2013 OCCULT BLOOD FECES CPT-4: 25915 11/09/2013 THER/PROPH/DIAG INJ SC/IM CPT-4: 25029 11/24/2012 VITAMIN B12 INJECTION CPT-4: J3420 11/24/2012 COMPREHEN METABOLIC PANEL CPT-4: 55421 11/03/2012 COMPLETE CBC W/AUTO DIFF WBC CPT-4: 99305 11/03/2012 ASSAY THYROID STIM HORMONE CPT-4: 66076 11/03/2012 ASSAY OF BLOOD/URIC ACID CPT-4: 03783 11/03/2012 ROUTINE VENIPUNCTURE CPT-4: 66873 11/03/2012 ROUTINE VENIPUNCTURE CPT-4: 06676 02/25/2012 COMPREHEN METABOLIC PANEL CPT-4: 06587 02/25/2012 COMPLETE CBC W/AUTO DIFF WBC CPT-4: 56271 02/25/2012 HERPE1/2MG CPT-4: 45049|78668|61372 02/25/2012 THER/PROPH/DIAG INJ SC/IM CPT-4: 77453 09/24/2011 VITAMIN B12 INJECTION CPT-4: J3420 09/24/2011 CEFTRIAXONE SODIUM INJECTION CPT-4: J0696 09/24/2011 THER/PROPH/DIAG INJ SC/IM CPT-4: 53180 09/24/2011 ROUTINE VENIPUNCTURE CPT-4: 90379 09/17/2011 COMPREHEN METABOLIC PANEL CPT-4: 21390 09/17/2011 COMPLETE CBC W/AUTO DIFF WBC CPT-4: 75941 09/17/2011 LIPID PANEL CPT-4: 51886 09/17/2011 VITAMIN B 12 FOLIC ACID CPT-4: 63404|34999 09/17/2011 A1C GLYCOSYLATED HEMOGLOBIN TEST CPT-4: 49600 012 ROUTINE VENIPUNCTURE CPT-4: 59615 08/29/2010 COMPLETE CBC W/AUTO DIFF WBC CPT-4: 34789 08/29/2010 COMPREHEN METABOLIC PANEL CPT-4: 80249 08/29/2010 LIPID PANEL CPT-4: 26930 08/29/2010 ASSAY THYROID STIM HORMONE CPT-4: 40248 08/29/2010 ASSAY OF FREE THYROXINE CPT-4: 23346 08/29/2010 ASSAY OF PSA TOTAL CPT-4: 77295 08/29/2010 THER/PROPH/DIAG INJ SC/IM CPT-4: 49553 12/12/2009 VITAMIN B12 INJECTION CPT-4: J3420 12/12/2009 ROUTINE VENIPUNCTURE CPT-4: 61062 12/12/2009 ASSAY OF BLOOD/URIC ACID CPT-4: 68941 12/12/2009 THER/PROPH/DIAG INJ SC/IM CPT-4: 09534 10/30/2009 VITAMIN B12 INJECTION CPT-4: J3420 10/30/2009 THER/PROPH/DIAG INJ SC/IM CPT-4: 69341 10/01/2009 VITAMIN B12 INJECTION CPT-4: J3420 10/01/2009 THER/PROPH/DIAG INJ SC/IM CPT-4: 96701 10/01/2009 CEFTRIAXONE SODIUM INJECTION CPT-4: J0696 10/01/2009 [...] 97.3 (F) We ight: 149 lbs Code: 16912-0 10/19/2020 Blood Pressure 1: 121/87 Code: 8480-6 Heart Rate 1: 100 bpm Respiratory Rate: 16 bpm SpO2: 96% Temperature: 36.3 (C) / 97.3 (F) We ight: 149 lbs Code: 01868-8 10/01/2020 Blood Pressure 1: 140/84 Code: 8480-6 Heart Rate 1: 100 bpm Respiratory Rate: 18 bpm SpO2: 96% Temperature: 36.6 (C) / 97.9 (F) We ight: 147 lbs Code: 60816-6 09/24/2020 Blood Pressure 1: 112/70 Code: 8480-6 [...] 98.1 (F) We ight: 152 lbs Code: 49506-5 09/12/2020 Blood Pressure 1: 133/70 Code: 8480-6 Heart Rate 1: 100 bpm Respiratory Rate: 16 bpm SpO2: 100% Temperature: 36.5 (C) / 97.7 (F) We ight: 152 lbs Code: 47983-8 04/18/2020 Blood Pressure 1: 144/78 Code: 8480-6 Heart Rate 1: 80 bpm Respiratory Rate: 16 bpm SpO2: 98% Temperature: 36.4 (C) / 97.5 (F) We ight: 160 lbs Code: 78592-7 10/12/2019 Blood Pressure 1: 124/78 Code: 8480-6 BMI: 24.8 Code: 00817-3 Heart Rate 1: 76 bpm Height: 5'8" Code: 8302-2 Respiratory Rate: 20 bpm SpO2: 98% Temperature: 36.6 (C) / 97.9 (F) Weight: 163 lbs Code: 27375-1 04/25/2019 Blood Pressure 1: 140/86 Code: 8480-6 BMI: 24.3 Code: 54408-7 Heart Rate 1: 92 bpm Height: 5'8" Code: 8302-2 Respiratory Rate: 20 bpm SpO2: 98% Temperature: 36.8 (C) / 98.3 (F) Weight: 160 lbs Code: 13361-1 04/12/2019 Blood Pressure 1: 146/86 Code: 8480-6 BMI: 25.4 Code: 51259-4 Heart Rate 1: 88 bpm Height: 5'8" Code: 8302-2 Respiratory Rate: 20 bpm SpO2: 98% Temperature: 36.5 (C) / 97.7 (F) Weight: 167 lbs Code: 17740-9 02/17/2018 Blood Pressure 1: 114/62 Code: 8480-6 Bl ood Pressure 2: 116/70 Code: 8480-6 BMI: 24.9 Code: 97354-1 Heart Rate 1: 76 bpm Height: 5'8" Code: 8302-2 Respiratory Rate: 20 bpm SpO2: 97% Temperature: 36.7 (C) / 98.0 (F) We ight: 164 lbs Code: 37636-4 04/07/2017 Blood Pressure 1: 122/84 Code: 8480-6 BMI: 24.3 Code: 31370-1 Heart Rate 1: 72 bpm Height: 5'8" Code: 8302-2 Respiratory Rate: 20 bpm SpO2: 96% Temperature: 36.9 (C) / 98.4 (F) Weight: 160 lbs Code: 88663-8 09/19/2016 Blood Pressure 1: 124/76 Code: 8480-6 BMI: 24.6 Code: 83636-8 Heart Rate 1: 68 bpm Height: 5'8" Code: 8302-2 Respiratory Rate: 20 bpm SpO2: 96% Temperature: 36.6 (C) / 97.9 (F) Weight: 162 lbs Code: 07005-5 12/18/2015 Blood Pressure 1: 136/70 Code: 8480-6 BMI: 24.3 Code: 75838-5 Heart Rate 1: 84 bpm Height: 5'8" Code: 8302-2 Respiratory Rate: 20 bpm Temperatu re: 36.5 (C) / 97.7 (F) Weight: 160 lbs Code: 32305-8 07/20/2015 Blood Pressure 1: 140/84 Code: 8480-6 BMI: 24.9 Code: 31224-0 Heart Rate 1: 76 bpm Height: 5'8" Code: 8302-2 Respiratory Rate: 20 bpm Temperatu re: 36.6 (C) / 97.9 (F) Weight: 164 lbs Code: 39735-7 02/07/2015 Blood Pressure 1: 164/82 Code: 8480-6 BMI: 25.5 Code: 25055-9 Heart Rate 1: 78 bpm Height: 5'8" Code: 8302-2 Respiratory Rate: 20 bpm Temperatu re: 36.5 (C) / 97.7 (F) Weight: 168 lbs Code: 37688-5 07/19/2014 Blood Pressure 1: 136/94 Code: 8480-6 BMI: 24.8 Code: 16437-8 Heart Rate 1: 88 bpm Height: 5'8" Code: 8302-2 Respiratory Rate: 20 bpm Temperatu re: 36.8 (C) / 98.2 (F) Weight: 163 lbs Code: 75468-9 07/06/2014 Blood Pressure 1: 136/92 Code: 8480-6 BMI: 24.2 Code: 25580-8 Heart Rate 1: 88 bpm Height: 5'8" Code: 8302-2 Respiratory Rate: 20 bpm Temperatu re: 36.9 (C) / 98.4 (F) Weight: 159 lbs Code: 41279-2 07/04/2014 Blood Pressure 1: 116/84 Code: 8480-6 Bl ood Pressure 2: 108/82 Code: 8480-6 Heart Rate 1: 88 bpm Respiratory Rate: 20 bpm Temperature: 3 6.7 (C) / 98.0 (F) Weight: 159 lbs Code: 96847-9 06/14/2014 Blood Pressure 1: 132/90 Code: 8480-6 BMI: 24.6 Code: 62045-7 Heart Rate 1: 100 bpm Height: 5'8" Code: 8302-2 Respiratory Rate: 20 bpm Temperatu re: 37.2 (C) / 99.0 (F) Weight: 162 lbs Code: 41030-0 03/09/2014 Blood Pressure 1: 122/62 Code: 8480-6 BMI: 25.4 Code: 68621-4 Heart Rate 1: 84 bpm Height: 5'8" Code: 8302-2 Respiratory Rate: 20 bpm Temperatu re: 36.6 (C) / 97.8 (F) Weight: 167 lbs Code: 25125-3 01/05/2014 Blood Pressure 1: 124/82 Code: 8480-6 BMI: 25.4 Code: 20579-7 Heart Rate 1: 84 bpm Height: 5'8" Code: 8302-2 Respiratory Rate: 20 bpm Temperatu re: 36.7 (C) / 98.0 (F) Weight: 167 lbs Code: 71887-8 11/09/2013 Blood Pressure 1: 138/82 Code: 8480-6 BMI: 24.5 Code: 21394-0 Heart Rate 1: 84 bpm Height: 5'8" Code: 8302-2 Respiratory Rate: 20 bpm Temperatu re: 37.1 (C) / 98.8 (F) Weight: 161 lbs Code: 30657-1 11/24/2012 Blood Pressure 1: 122/72 Code: 8480-6 BMI: 24.0 Code: 79878-1 Heart Rate 1: 66 bpm Height: 5'8" Code: 8302-2 Respiratory Rate: 20 bpm Temperatu re: 36.5 (C) / 97.7 (F) Weight: 158 lbs Code: 73483-0 11/03/2012 Blood Pressure 1: 130/84 Code: 8480-6 BMI: 23.7 Code: 45425-9 Heart Rate 1: 72 bpm Height: 5'8" Code: 8302-2 Respiratory Rate: 20 bpm Temperatu re: 36.2 (C) / 97.1 (F) Weight: 156 lbs Code: 03720-6 02/25/2012 Blood Pressure 1: 142/84 Code: 8480-6 BMI: 25.1 Code: 50101-1 Heart Rate 1: 68 bpm Height: 5'8" Code: 8302-2 Temperature: 37.2 (C) / 99.0 (F) Weight: 165 lbs Code: 80804-7 10/08/2011 Blood Pressure 1: 126/80 Code: 8480-6 BMI: 24.3 Code: 40966-9 Heart Rate 1: 84 bpm Height: 5'8" Code: 8302-2 Respiratory Rate: 20 bpm Temperatu re: 36.8 (C) / 98.2 (F) Weight: 160 lbs Code: 88715-4 09/24/2011 Blood Pressure 1: 136/80 Code: 8480-6 BMI: 24.3 Code: 45208-3 Heart Rate 1: 84 bpm Height: 5'8" Code: 8302-2 Respiratory Rate: 20 bpm Temperatu re: 36.8 (C) / 98.2 (F) Weight: 160 lbs Code: 53912-9 09/17/2011 Blood Pressure 1: 128/84 Cod e: 8480-6 09/09/2011 Blood Pressure 1: 142/84 Code: 8480-6 BMI: 24.3 Code: 27838-3 Height: 5'8" Code: 8302-2 Temperature: 36.7 (C) / 98.0 (F) Weight: 160 lbs Code : 69048-6 08/29/2010 Blood Pressure 1: 144/84 Code: 8480-6 Heart Rate 1: 72 bpm Temperature: 36.8 (C) / 98.2 (F) Weight: 156 lbs Code: 76903-2 12/12/2009 Blood Pressure 1: 146/88 Code: 8480-6 Heart Rate 1: 76 bpm Temperature: 36.6 (C) / 97.9 (F) Weight: 152 lbs Code: 39845-8 10/30/2009 Blood Pressure 1: 132/70 Code: 8480-6 Heart Rate 1: 80 bpm Temperature: 36.9 (C) / 98.4 (F) Weight: 151 lbs Code: 45892-9 10/01/2009 Blood Pressure 1: 142/86 Code: 8480-6 BMI: 23.0 Code: 69845-0 Heart Rate 1: 84 bpm Height: 5'8" Code: 8302-2 Temperature: 36.9 (C) / 98.4 (F) Weight: 151 lbs Code: 68330-4 Functional Status No Functional Status data Reason [...] follow up 04/25/2019 follow up 04/12/2019 from [facility] Care well man exam (40-65 years) 02/17/2018 [...] 10/01/2009 establishing vis it, being treated for Dugger Spotted Fever Encounters Encounter Performer Location Codes Date () OFFICE/OUTPATIENT VISIT EST Diagnosis: Pulmonary nodules[ICD10: R91.8] Diagnosis: Supraclavicular adenopathy[ICD10: R59.0] Diagnosis: Thrombocytopenia[ICD10: D69.6] Estephanie Dyan GALARZA S . [facility] CPT-4: 40883 10/26/2020 ([id number]) OFFICE/OUTPATIENT VISIT EST Diagnosis: Mass of left lung[ICD10: R91.8] Diagnosis: Supraclavicular adenopathy[ICD10: R59.0] Diagnosis: On anticoagulant therapy[ICD10: Z79.01] Diagnosis: Other acute pulmonary embolism without acute cor pulmonale[ICD10: I26.99] Diagnosis: Lymphadenopathy[ICD10: R59.1] Diagnosis: Thrombocytopenia[ICD10: D69.6] Diagnosis: Pericardial effusion[ICD10: I31.3] Estephanie [facility]: 35758 10/22/2020 ([id number]) OFFICE/OUTPATIENT VISIT EST Diagnosis: Supraclavicular adenopathy[ICD10: R59.0] Diagnosis: Difficulty swallowing[ICD10: R13.10] Estephanie Dyan [facility]IR [facility] CPT-4: 37966 10/19/2020 ([id number]) OFFICE/OUTPATIENT VISIT EST Diagnosis: On anticoagulant therapy[ICD10: Z79.01] Diagnosis: Acute deep vein thrombosis (DVT) of femoral vein of right lower extremity[ICD10: I82.411] Estephanie D[facility] : 08831 10/01/2020 ([id number]) OFFICE/OUTPATIENT VISIT EST Diagnosis: Right leg DVT[ICD10: I82.401] Tracie [facility] CPT-[facility]: 69349 09/24/2020 ([id number]) OFFICE/OUTPATIENT VISIT EST Diagnosis: Acute deep vein thrombosis (DVT) of femoral vein of right lower extremity[ICD10: I82.411] Diagnosis: On anticoagulant therapy[ICD10: Z79.01] Estephanie Dyan [facility]AVEZ [facility] CPT-[facility]: 77203 09/17/2020 ([id number]) OFFICE/OUTPATIENT VISIT EST Diagnosis: Acute deep vein thrombosis (DVT) of femoral vein of right lower extremity[ICD10: I82.411] Estephanie OconnorClark [facility] CPT-4 : 14653 09/14/2020 ([id number]) OFFICE/OUTPATIENT VISIT EST Diagnosis: Fall down stairs, initial encounter[ICD10: W10.8XXA] Diagnosis: Right leg swelling[ICD10: M79.89] Diagnosis: Right leg pain[ICD10: M79.604] Estephanie Oconnor Clark [facility] CPT-4: 66169 09/12/2020 ([id number]) OFFICE/OUTPATIENT VISIT EST Diagnosis: Hypertension[ICD10: I10] Diagnosis: Hyperglycemia, unspecified[ICD10: R73.9] Diagnosis: Mixed hyperlipidemia[ICD10: E78.2] Tracie MOHAN ElvinClark [facility] CPT-4: 35238 04/18/2020 ([id number]) OFFICE/OUTPATIENT VISIT EST 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] Diagnosis: Cat scratch[ICD10: W55.03XA] Diagnosis: Hypertension[ICD10: I10] Diagnosis: Pulmonary nodules[ICD10: R91.8] Tracie Nikhilwaleska GALARZA [facility] CPT-4: 07422 04/25/2019 ([id number]) OFFICE/OUTPATIENT VISIT EST 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] Diagnosis: Dysphagia[ICD10: R13.10] Tracie GALARZA ElvinClark HOOD CHARLENE [facility] CPT-4: 76014 04/12/2019 ([id number]) PER PM REEVAL EST PAT 65+ YR Diagnosis: Encounter for general adult medical examination without abnormal findings[ICD10: Z00.00] Diagnosis: Essential (primary) hypertension[ICD10: I10] Diagnosis: Hyperglycemia, unspecified[ICD10: R73.9] Tracie GALARZA ElvinClark [facility] CPT-4: 38445 02/17/2018 ([id number]) NURSE/OUTPATIENT VISIT EST Diagnosis: Essential (primary) hypertension[ICD10: I10] Diagnosis: Mixed hyperlipidemia[ICD10: E78.2] Diagnosis: Hyperglycemia, unspecified[ICD10: R73.9] Diagnosis: Encounter for screening for other viral diseases[ICD10: Z11.59] Tracie Howard [facility] CPT-4: 57787 01/29/2018 ([id number]) OFFICE/OUTPATIENT VISIT EST Diagnosis: Encounter for general adult medical examination without abnormal findings[ICD10: Z00.00] Diagnosis: Mixed hyperlipidemia[ICD10: E78.2] Diagnosis: Essential (primary) hypertension[ICD10: I10] Diagnosis: Impaired fasting glucose[ICD10: R73.01] Diagnosis: Encounter for screening for malignant neoplasm of prostate[ICD10: Z12.5] Tracie Howard [facility] [employer] CPT-4: 86161 05/01/2017 ([id number]) OFFICE/OUTPATIENT VISIT EST Diagnosis: URI, ACUTE[ICD10: J06.9] Tracie CHANG [employer] CPT-4: 44697 04/07/2017 OFFICE/OUTPATIENT VISIT EST Diagnosis: Essential (primary) hypertension[ICD10: I10] Ashley Howard [facility] [employer] CPT-4: 78827 09/19/2016 ([id number]) OFFICE/OUTPATIENT VISIT EST Diagnosis: Encounter for general adult medical examination without abnormal findings[ICD10: Z00.00] Diagnosis: Essential (primary) hypertension[ICD10: I10] Diagnosis: Impaired fasting glucose[ICD10: R73.01] Tracie oHward [facility] [employer] CPT-4: 06702 01/04/2016 ([id number]) OFFICE/OUTPATIENT VISIT EST Diagnosis: Essential (primary) hypertension[ICD10: I10] Diagnosis: Mixed hyperlipidemia[ICD10: E78.2] Diagnosis: Impaired fasting glucose[ICD10: R73.01] Tracie Howard [facility] [employer] CPT-4: 58996 12/18/2015 ([id number]) PREV VISIT EST AGE 40-64 Diagnosis: Encounter for general adult medical examination without abnormal findings[ICD10: Z00.00] Diagnosis: Essential (primary) hypertension[ICD10: I10] Ashley Howard [facility] CPT-[facility]: 33668 07/20/2015 OFFICE/OUTPATIENT VISIT EST Diagnosis: Mixed hyperlipidemia[ICD10: E78.2] Diagnosis: Impaired fasting glucose[ICD10: R73.01] Diagnosis: Insomnia, unspecified[ICD10: G47.00] Jacque MongeSharonjorge luis DURAN KAMALJIT Lee [facility] CPT-[facility]: 87842 02/07/2015 ([id number]) OFFICE/OUTPATIENT VISIT EST Diagnosis: Encounter for general adult medical examination without abnormal findings[ICD10: Z00.00] Diagnosis: Essential (primary) hypertension[ICD10: I10] Diagnosis: Mixed hyperlipidemia[ICD10: E78.2] Tracie MOHAN Lee [facility] CPT-[facility]: 48031 02/02/2015 ([id number]) OFFICE/OUTPATIENT VISIT EST Diagnosis: SINUSITIS, ACUTE[ICD9: 461.9] Jacque MongeSharonjorge luis TRACIE [facility] CPT-[facility]: 33708 07/19/2014 ([id number]) OFFICE/OUTPATIENT VISIT EST Diagnosis: Hypotension[ICD9: 458.9] Diagnosis: DYSPEPSIA[ICD9: 536.8] Diagnosis: HYPERTENSION[ICD9: 401.9] Tracie GALARZA Elvin[facility]ark [facility] CPT-[facility]: 23771 07/06/2014 ([id number]) OFFICE/OUTPATIENT VISIT EST Diagnosis: DIZZINESS/VERTIGO[ICD9: 780.4] Diagnosis: HYPOTENSION[ICD9: 458.9] Diagnosis: MALAISE AND FATIGUE[ICD9: 780.79] Tracie Murillo [facility] CPT-4: 02328 07/04/2014 ([id number]) OFFICE/OUTPATIENT VISIT EST Diagnosis: ARTHRALGIA-MULTIPLE SITES[ICD9: 719.49] Diagnosis: CEPHALGIA[ICD9: 784.0] Diagnosis: Uveitis[ICD9: 364.3] Tracie GALARZA El[facility]ark [facility] CPT-[facility]: 28666 06/14/2014 ([id number]) OFFICE/OUTPATIENT VISIT EST Diagnosis: HYPERTENSION[ICD9: 401.9] Diagnosis: OTHER ABNORMAL GLUCOSE[ICD9: 790.29] Tracie KEYES DO [facility] CPT-4: 93102 03/09/2014 ([id number]) OFFICE/OUTPATIENT VISIT EST Diagnosis: OTHER ABNORMAL GLUCOSE[ICD9: 790.29] Tracie KEYES [facility] CPT-4: 06226 01/05/2014 ([id number]) OFFICE/OUTPATIENT VISIT EST Diagnosis: ROUTINE MEDICAL EXAM[ICD9: V70.0] Tracie KEYES [facility] CPT-4: 27684 11/18/2013 ([id number]) PREV VISIT EST AGE 40-64 Diagnosis: ROUTINE MEDICAL EXAM[ICD9: V70.0] Diagnosis: HYPERLIPIDEMIA NEC/NOS[ICD9: 272.4] Diagnosis: FOREIGN BODY FINGER[ICD9: 915.6] Tracie KEYES [facility] CPT-4: 11853 11/09/2013 ([id number]) OFFICE/OUTPATIENT VISIT EST Diagnosis: CERVICALGIA[ICD9: 723.1] Diagnosis: B12 DEFIC ANEMIA NEC[ICD9: 281.1] Diagnosis: DISTURBANCE OF SKIN SENSATION (Paresthesia)[ICD9: 782.0] Tracie KEYES [facility] CPT-4: 55161 11/24/2012 OFFICE/OUTPATIENT VISIT EST Diagnosis: Neck pain on left side[ICD9: 723.1] Diagnosis: Tendonitis of elbow, left[ICD9: 727.09] Jacque Lopez TRACIE KEYES [facility] CPT-4: 64805 11/03/2012 OFFICE/OUTPATIENT VISIT EST Diagnosis: Oral lesion[ICD9: 528.9] Diagnosis: Herpes zoster[ICD9: 053.9] Diagnosis: FEBRILE ILLNESS[ICD9: 780.60] Liz Randall TRACIE KEYES [facility] CPT-4: 10967 02/25/2012 OFFICE/OUTPATIENT VISIT EST Diagnosis: MALAISE AND FATIGUE[ICD9: 780.79] Diagnosis: B12 DEFIC ANEMIA NEC[ICD9: 281.1] Diagnosis: SPOTTED FEVERS[ICD9: 082.0] Diagnosis: SPASM OF MUSCLE[ICD9: 728.85] Tracie OBRIENER DO [facility] CPT-4: 06569 10/08/2011 ([id number]) OFFICE/OUTPATIENT VISIT EST Diagnosis: MALAISE AND FATIGUE[ICD9: 780.79] Diagnosis: SPOTTED FEVERS[ICD9: 082.0] Diagnosis: B12 DEFIC ANEMIA NEC[ICD9: 281.1] Tracie CALVONDER DO [facility] CPT-4: 08064 09/24/2011 ([id number]) OFFICE/OUTPATIENT VISIT EST Diagnosis: B12 DEFIC ANEMIA NEC[ICD9: 281.1] Diagnosis: HYPERTENSION[ICD9: 401.9] Diagnosis: MALAISE AND FATIGUE[ICD9: 780.79] Diagnosis: OTHER ABNORMAL GLUCOSE[ICD9: 790.29] Tracie CALVONDER DO [facility] CPT-4: 45063 09/17/2011 OFFICE/OUTPATIENT VISIT EST Diagnosis: NONVENOM ARTHROPOD BITE[ICD9: E906.4] Diagnosis: HYPERTENSION[ICD9: 401.9] Tracie CALVO NDER DO [facility] CPT-4: 07793 09/09/2011 PREV VISIT EST AGE 40-64 Tracie WELCH R DO [facility] CPT-4: 01997 08/29/2010 ([id number]) OFFICE/OUTPATIENT VISIT, EST Tracie CHAVEZ SClark CALVONDER [facility] CPT-4: 16039 12/12/2009 ([id number]) OFFICE/OUTPATIENT VISIT, EST Tracie CHAVEZ S. ORENDER DO [facility] CPT-4: 07546 10/30/2009 ([id number]) OFFICE/OUTPATIENT VISIT, NEW Tracie CHAVEZ SClark ORENDER [facility] CPT-4: 78156 10/01/2009 Plan of Care Planned Activity Notes Codes Status Date Visit Diagnosis Plan: Pulmonary nodules Discussion: PE T scan results not available at time of visit- request sent to [facility]. Will call patient with results. Discussed [...] 10/22/2020 Appointment: Estephanie Zaidi WPtel: [phone] [facility] [address] US FOLLOW UP 10/22/2020 Patient Education: Patient Medication Summary Completed 10/22/2020 Care Plan: CT SOFT TISSUE NECK W/O DYE L OINC : 85139-2 Pending 10/22/2020 Visit Diagnosis Plan: Supraclavicular adenopathy Discu ssion: Will send for stat CT neck chest with contrast and labs at [facility] ICD-9 : 785.6 ICD-10 : R59.0 10/19/2020 Appointment: [facility]idi [facility] [phone] [facility] [facility] 10/19/2020 Patient Education: Patient [...] 10/01/2020 Appointment: [facility]idi [facility] [phone] [facility] [facility] 10/01/2020 Patient Education: Patient Medication Summary Completed 10/01/2020 Visit Diagnosis Plan: Right leg DVT Discussion: Contin ue eliquis at 5mg po BID Recheck 1 week Discussed repeating US of RLE at 3mos and staying on eliquis until then Discussed clotting studies after off eliquis for 1month in future ICD-9 : 453.40 ICD-10 : I82.401 09/24/2020 Appointment: Tracie Keyes WPtel: [phone] [facility] FOLLOW UP 09/24/2020 Visit Diagnosis Plan: On [...] extremity Discussion: Swelling decreasing. F/U 1 w [place] for recheck. ICD-9 : 453.41 ICD-10 : I82.411 09/17/2020 Appointment: Estephanie Zaidi WPtel: [phone] [facility] [address] FOLLOW UP 09/17/2020 Patient Education: Patient Medication Summary Completed 09/17/2020 Patient Education: Eliquis- [employer] C[employer]on [id number] [email or web address]/resources/getResource/61/o37vgamc-[email or web address]-[email or web address] Completed 09/17/2020 Patient Education: tramadol- [employer] Coupon [id number] [email or web address]/resources/getResource/61/[email or web address]-[email or web address] Completed 09/17/2020 Visit Diagnosis Plan: Acute deep [...] I82.411 09/14/2020 Appointment: Estephanie Zaidi WPtel: [phone] [facility] FOLLOW UP 09/14/2020 Patient Education: Patient Medication Summary Completed 09/14/2020 Visit Diagnosis Plan: Right leg swelling Discussion: W ill send to [facility] now for stat doppler to r/o DVT d/t swelling and pain and f/u with results. ICD-9 : 729.81 ICD-10 : M79.89 09/12/2020 Appointment: Estephanie Zaidi WPtel: [phone] [facility] [address] ACUTE ILLNESS 09/12/2020 Patient Education: Patient Medication [...] : R73.9 04/18/2020 Appointment: Tracie Keyes WPtel: [address] [place], [place] [phone] FOLLOW UP 04/18/2020 Patient Education: lisinopril- [employer] Coupon [id number] https://[email or web address]/samplemd/resources/getResource/61/[email or web address]-[email or web address] Completed 04/18/2020 Visit Diagnosis Plan: Essential (primary) hypertension Discussion: Stable on lisinopril ICD-9 : 401.9 ICD-10 : I10 10/12/2019 Visit Diagnosis Plan: Encounter for [facility] adult medical examination without abnormal findings Discussion: Mediterranean diet Combinati on of cardio and weight bearing exercise Will return for fasting lab next week ICD-9 : V70.0 ICD-10 : Z00.00 10/12/2019 Visit Diagnosis Plan: Hyperglycemia, unspecified Discu ssion: Will return for HbA1C next week ICD-9 : 790.29 ICD-10 : R73.9 10/12/2019 Appointment: Tracie Keyes WPtel: [address] [place], [place] [phone] INSIDE Annual Well Visit 10/12/2019 Appointment: Viridiana Lima [address] FOLLOW UP 05/16/2019 Visit Diagnosis Plan: [...] : W55.03XA 04/25/2019 Appointment: Tracie Keyes WPtel: [address] [place], [place] [phone] Hospital Follow Up 04/25/2019 Patient Education: nystatin- [employer] Coupon [id number] https://[email or web address]/[email or web address]/resources/getResource/61/[email or web address] Completed 04/25/2019 Visit Diagnosis Plan: Submandibular gland [...] : K11.1 04/12/2019 Appointment: Tracie Keyes WPtel: [address] [place], [place] [phone] 04/12/2019 Appointment: Tracie Keyes WPtel: [address] [place] [address] LM CANCELED 08/09/2018 Visit Diagnosis Plan: Essential (primary) hypertension Discussion: Stable ICD-9 : 401.9 ICD-10 : I10 02/17/2018 Visit Diagnosis Plan: Encounter for [facility] adult medical examination without abnormal findings Discussion: Lab discussed Refuses prosta te check Refuses colonoscopy Will check with pharmacy on Shingrix/Flu shot and Prevnar ICD-9 : V70.0 ICD-10 : Z00.00 02/17/2018 Visit Diagnosis Plan: Hyperglycemia, unspecified Discu ssion: Wants to focus on diet/exercise and recheck in 6mos ICD-9 : 790.29 ICD-10 : R73.9 02/17/2018 Appointment: Tracie Keyes WPtel: [address] [place] [address] Annual Well Visit 02/17/2018 Appointment: Tracie Keyes WPtel: [address] [place], [place] [phone] US LAB 01/29/2018 Appointment: Tracie Keyes WPtel: [address] [place], [place] [phone] US LAB 05/01/2017 Patient Education: Patient Medication [...] Rest, Fluids... 04/07/2017 Appointment: Tracie Keyes WPtel: [address] [place] [address] ACUTE ILLNESS 04/07/2017 Patient Education: Patient Medication Summary Completed 04/07/2017 Visit Plan: Had meds refilled for 6 joseph hs the other day. RTC 6 months Described s/s of heart disease that he would need to report for to us or ER/UC. 09/19/2016 Appointment: [facility]el[facility] [phone] [facility] 09/18 lm`sl FOLLOW UP 09/19/2016 Patient Education: Patient Medication Summary Completed 09/19/2016 Appointment: Tracie Keyes WPtel: [phone] [place] [id number] [place] LAB 01/04/2016 Patient Education: Patient Medication Summary Completed 01/04/2016 Visit Plan: Will get flu shot at work Up date fasting lab 12/18/2015 Appointment: Tracie Keyes WPtel: [phone] [place], [place] [phone] 12/16 lm~sl FOLLOW UP 12/18/2015 Patient Education: Patient Medication Summary Completed 12/18/2015 Visit Plan: Pt declined rectal/prostate exam. Encouraged to get colonoscopy Plan labs for fall 2015 Continue on current meds but send in home B/P since today's B/P is elevated to see if dosage change is indicated. RTC in 6 months 07/20/2015 Appointment: Ashley Crenshaw WPtel: [address] [place] [address] 07/18 lm ~sl Annual Well Visit 07/20/2015 Patient Education: Patient Medication Summary Completed 07/20/2015 Visit Plan: Resume BP med Resume Metform in( has been off > 9 months) Add HgbA1C to labs drawn last week, Trial of Selinor for sleep. Will let us know how he does with it. 02/07/2015 Appointment: Jac[facility]el[facility] [phone] [facility] 02/06/15 vm cn....appt confirmed cn FOLLOW UP 02/07/2015 Patient Education: Patient Medication Summary Completed 02/07/2015 Patient Education: [facility] - Saving AutoInj - Lisinopril - 18-64 - Dynamic Portal ID Completed 02/07/2015 Appointment: Tracie Keyes WPtel: [address] [place] [address] LAB 02/02/2015 Patient Education: Patient Medication Summary Completed 02/02/2015 Appointment: Jacque Lopez WPtel: [address] [place] [address] ACUTE ILLNESS 07/19/2014 Patient Education: Patient Medication Summary Completed 07/19/2014 Visit Plan: Restart Diltiazem Continue t o hydrate Call in 3 days on how doing 07/06/2014 Appointment: Tracie Keyes WPtel: [address] [place] [address] 07/05 appt confirmed cn FOLLOW UP 07/07/19 Patient Education: Patient Medication Summary Completed 07/06/2014 Visit Plan: Hold lisinopril hct Hydrate Recheck 2 days Meclizine 25mg q HS Hold metformin Call in AM 07/04/2014 Appointment: Tracie Keyes WPtel: [address] [place] [address] FOLLOW UP 07/04/2014 Patient Education: Patient Medication Summary Completed 07/04/2014 Appointment: Tracie Keyes WPtel: [address] [place] [address] ACUTE ILLNESS 06/14/2014 Patient Education: Patient Medication Summary Completed 06/14/2014 Appointment: Tracie Keyes WPtel: [address] [place] [address] FOLLOW UP 03/09/2014 Patient Education: Patient Medication Summary Completed 03/09/2014 Visit Plan: Continue metformin at curren t dose Accuchecks daily alternating times Diabetic diet info given Check CMP with HbA1C in 2mos then fwup 01/05/2014 Appointment: Tracie Keyes WPtel: [address] [place], [place] [phone] FOLLOW UP 01/05/2014 Patient Education: Patient Medication Summary Completed 01/05/2014 Visit Plan: Did not need lab so will jus t fwup as scheduled 01/03/2014 Appointment: Tracie Keyes WPtel: [address] [place], [place] [phone] [place] LAB 01/03/2014 Patient Education: Patient Medication Summary Completed 01/03/2014 Appointment: Tracie Keyes WPtel: [address] [place], [place] [phone] US LAB 11/18/2013 Patient Education: Patient Medication Summary Completed 11/18/2013 Visit Plan: Continue current meds Remova l of splinter as above Keflex for 1 week Continue current meds Fwup next week for fasting lab including PSA 11/09/2013 Appointment: Tracie Keyes WPtel: [address] [place], [place] [phone] 11/08 Annual Well Visit 11/09/2013 Patient Education: Patient Medication Summary Completed 11/09/2013 Patient Education: [facility] - Saving [employer] - Lisinopril - 18+ - Dynamic Portal ID Completed 11/09/2013 Appointment: Tracie Keyes WPtel: [address] [place], [place] [phone] 11/23 left message FOLLOW UP 11/24/2012 Patient Education: Patient Medication Summary Completed 11/24/2012 Appointment: Jacque Lopez WPtel: [address] [place], [place] [phone] FOLLOW UP 11/10/2012 Appointment: Jacque Lopez WPtel: [address] [place], [place] [phone] ACUTE ILLNESS 11/03/2012 Patient Education: Patient Medication Summary Completed 11/03/2012 Appointment: Liz Randall WPtel: [address] [place], [place] [phone] ACUTE ILLNESS 02/25/2012 Patient Education: Patient Medication Summary Completed 02/25/2012 Visit Plan: Finish abx Continue B12 OMT done Add Skelaxin 800mg q HS 10/08/2011 Appointment: Tracie Keyes WPtel: [address] [place], [place] [phone] voicemail FOLLOW UP 10/08/2011 Patient Education: Patient Medication Summary Completed 10/08/2011 Appointment: Tracie Keyes WPtel: [address] [place], [place] [phone] FOLLOW UP 09/24/2011 Patient Education: Patient Medication Summary Completed 09/24/2011 Appointment: Tracie Keyes WPtel: [address] [place], [place] [phone] LAB 09/17/2011 Patient Education: Patient Medication Summary [...] fasting labs. 09/09/2011 Appointment: Liz Randall WPtel: [address] [place], [place] [phone] ACUTE ILLNESS 09/09/2011 Patient Education: Patient Medication Summary Completed 09/09/2011 Visit Plan: Change lisinopril hct to 20/ 12.5mg 2 daily and continue cardizem Check fasting lab--drawn today 08/29/2010 Appointment: Tracie Keyes WPtel: [address] [place], [place] [phone] FOLLOW UP 08/29/2010 Patient Education: Patient Medication Summary Completed 08/29/2010 Appointment: Tracie Keyes WPtel: [address] [place], [place] [phone] [place] FOLLOW UP 12/12/2009 Patient Education: Patient Medication Summary Completed 12/12/2009 Appointment: Tracie Keyes WPtel: [address] [place], [place] [phone] [place] FOLLOW UP 11/27/2009 Visit Plan: Finish Abx B12 given Start d aily 1000mcg B12 Cont allopurinol and check B12 and uric acid in 1mo. 10/30/2009 [facility]ment[facility] [phone] [phone] [facility] 10/30/2009 Patient Education: Patient Medication Summary Completed 10/30/2009 [facility]ment: [facility] [phone] [phone] [place] NEW [facility]IENT 10/01/2009 Patient Education: Patient Medication Summary Completed 10/01/2009 Referral: Sav Olivo WPtel: [phone] [phone] [place] Referral Initiated Instructions Comment . Discussed [...]
--- OUTSIDE RECORDS SUMMARY | 2020-11-05 09:33 | XMS REPORT | CCD ---
Author Author Josh Keyes D.O. Organization [facility] Address [address] [place] [address] Phone Care Team Providers Care Research Scholar Name Role Phone Tracie Keyes D.O., PP Unavailable CCM Unavailable Summary Purpose Interface Exchange Insurance Providers Payer name Policy type / Coverage type Covered libertarian ID Effective Begin Date Effective End Date WPS MEDICARE PART B [place] Medicare Part B [id number] Unknown [facility] Medicare Part B [id number] 2019 Un known Family history Sister Diagnosis Age At Onset seizure disorder Unknown Father Diagnosis Age At Onset Diabetes mellitus Type 2 Unknown Mother Diagnosis Age At Onset Diabetes mellitus Type 2 Unknown Social History Social History Element Codes Description Effective Dates Tobacco history SNOMED CT: 26731250 Currently smokes tobacco Marital status Unknown 10/01/2009 [...] E906.4 09/09/2011 Active Hypertension Unknown 10/01/2009 Active [place] spotted fever Unknown 07/24/2009 Act [place] B12 DEFIC ANEMIA NEC ICD-9: 281.1 10/01/2009 Active Hyperuricemia ICD-9: 790.6 10/01/2009 Active Myalgia ICD-9: 729.1 10/01/2009 Active [place] spotted fever ICD-9: 082.0 10/01/2009 Act [place] Medications Medication Codes Instructions Start Date Stop Date Status Fill Instructions Eliquis 5 mg tablet RxNorm: 2338555 Take 1 Tablet(s) Oral two ti mes a day 09/19/2020 12/17/2020 Active tramadol 50 mg tablet RxNorm: 853064 Take 1 Tablet(s) O ral Q8H as needed for pain Take with 2 tylenol 09/17/2020 No Stop Date Active Eliquis 5 mg tablet RxNorm: 5024779 Take 2 Tablet(s) Oral two ti mes a day 09/17/2020 No Stop Date Active lisinopril 40 mg tablet RxNorm: 683271 1 Tablet(s) Oral QD repl aces 20mg dose 04/18/2020 10/15/2020 Inactive Men's Multivitamin 400 mcg-20 mcg-300 mcg tablet RxNorm: 1 Tablet(s) Oral QD 04/18/2020 No Stop Date Active lisinopril 20 mg tablet RxNorm: 969290 1 Tablet(s) Oral QD 03/29/19 21 04/17/2020 Inactive Due for his 6 month appointm ent lisinopril 20 mg tablet RxNorm: 681559 TAKE ONE (1) TAB LET BY MOUTH DAILY... Needs fwup 10/03/2019 11/02/2019 Inactive lisinopril 20 mg tablet RxNorm: 874197 TAKE ONE (1) TABLET BY M OUTH DAILY... 10/03/2019 10/02/2019 Inactive Zithromax 500 mg tablet RxNorm: 588965 1 Tablet(s) Oral QD 04/25/19 20 05/02/2019 Inactive [AttnRPh: Saving apply/adjud icate RxGRP:SG20 RxBIN:[id number] RxPCN: ID#:[id number]] lisinopril 20 mg tablet RxNorm: 707422 1 Tablet(s) Oral QD 04/25/19 20 10/02/2019 Inactive nystatin 100,000 unit/mL oral suspension RxNorm: 597393 5 Milliliter(s) Oral four times a day swish, gargle and spit 04/25/2019 05/09/2019 Inactive diltiazem ER (XR/XT) 120 mg capsule,extended release 2 4 hr, controlled RxNorm: 147726 Capsule(s) 1 Capsule(s) PO QD 06/10/2018 10/11/2019 Inactive [SAVINGS FOR UNINSURED PATIENTS -- BIN:363358, PCN: ASPROD1, Group: AME08, ID# [id number], Process claim through [employer], for questions: . THIS IS NOT INSURANCE.] lisinopril 20 mg-hydrochlorothiazide 12.5 mg tablet RxNorm: 738092 1 Tablet(s) PO QAM 06/10/2018 10/11/2019 Inactive [AttnRPh: Saving apply/adjudicate RxGRP:SG20 RxBIN:[id number] RxPCN: ID#:[id number]] lisinopril 20 mg-hydrochlorothiazide 12.5 mg tablet RxNorm: 403252 1 Tablet(s) PO QAM 05/06/2017 01/30/2018 Inactive [AttnRPh: Saving apply/adjudicate RxGRP:SG20 RxBIN:[id number] RxPCN: ID#:[id number]] diltiazem ER (XR/XT) 120 mg capsule,extended release 2 4 hr, controlled RxNorm: 386790 Capsule(s) 1 Capsule(s) PO QD 05/06/2017 01/30/2018 Inactive [SAVINGS FOR UNINSURED PATIENTS -- BIN:839562, PCN: ASPROD1, Group: AME08, ID# [id number], Process claim through [employer], for questions: . THIS IS NOT INSURANCE.] diltiazem ER (XR/XT) 120 mg capsule,extended release 2 4 hr, controlled RxNorm: 424758 Capsule(s) 1 Capsule(s) PO QD 09/16/2016 03/14/2017 Inactive [SAVINGS FOR UNINSURED PATIENTS -- BIN:058683, PCN: ASPROD1, Group: AME08, ID# [id number], Process claim through [employer], for questions: . THIS IS NOT INSURANCE.] lisinopril 20 mg-hydrochlorothiazide 12.5 mg tablet RxNorm: 341623 1 Tablet(s) PO QAM 09/16/2016 03/14/2017 Inactive [AttnRPh: Saving apply/adjudicate RxGRP:SG20 RxBIN:[id number] RxPCN: ID#:[id number]] diltiazem ER (XR/XT) 120 mg capsule,extended release,control led RxNorm: 842309 1 Capsule(s) PO QD 04/09/2016 10/11/2019 Inactive [SAVINGS FOR UN INSURED PATIENTS -- BIN:999110, PCN: ASPROD1, Group: AME08, ID# [id number], Process claim through [employer], for questions: . THIS IS NOT INSURANCE.] diltiazem ER (XR/XT) 120 mg capsule,extended release,control led RxNorm: 840721 1 Capsule(s) PO QD 04/09/2016 09/15/2016 Inactive [SAVINGS FOR UN INSURED PATIENTS -- BIN:605842, PCN: ASPROD1, Group: AME08, ID# [id number], Process claim through [employer], for questions: . THIS IS NOT INSURANCE.] lisinopril 20 mg-hydrochlorothiazide 12.5 mg tablet RxNorm: 086126 1 Tablet(s) PO QAM 12/10/2015 06/06/2016 Inactive [AttnRPh: Saving apply/adjudicate RxGRP:SG20 RxBIN:[id number] RxPCN: ID#:[id number]] diltiazem ER (XR/XT) 120 mg capsule,extended release,control led RxNorm: 946618 1 Capsule(s) PO QD 02/07/2015 02/01/2016 Inactive [SAVINGS FOR UN INSURED PATIENTS -- BIN:170777, PCN: ASPROD1, Group: AME08, ID# [id number], Process claim through [employer], for questions: . THIS IS NOT INSURANCE.] lisinopril 20 mg-hydrochlorothiazide 12.5 mg tablet RxNorm: 059666 1 Tablet(s) PO QAM 02/07/2015 12/09/2015 Inactive [AttnRPh: Saving apply/adjudicate RxGRP:SG20 RxBIN:[id number] RxPCN: ID#:[id number]] metformin ER 1,000 mg 24 hr tablet,extended release RxNorm: 553560 1 Tablet(s) PO QD 02/07/2015 07/19/2015 Inactive [SAVINGS FOR UNI NSURED PATIENTS -- BIN:025883, PCN: ASPROD1, Group: AME08, ID# [id number], Process claim through [employer], for questions: . THIS IS NOT INSURANCE.] diltiazem ER (XR/XT) 120 mg capsule,extended release,control led RxNorm: 449132 1 Capsule(s) PO QD 12/28/2014 02/06/2015 Inactive [SAVINGS FOR UN INSURED PATIENTS -- BIN:343476, PCN: ASPROD1, Group: AME08, ID# [id number], Process claim through [employer], for questions: . THIS IS NOT INSURANCE.] lisinopril 20 mg-hydrochlorothiazide 12.5 mg tablet RxNorm: 224606 1 Tablet(s) PO QAM 11/20/2014 10/11/2019 Inactive cefdinir 300 mg capsule RxNorm: 355334 2 Capsule(s) PO QD 07/19/2014 07/28/2014 Inactive [SAVINGS FOR NON-COVERED DRUGS -- BIN:00 3585, PCN: ASPROD1, Group: XXXXX, ID# [id number], Questions: . THIS IS NOT INSURANCE.] meclizine 25 mg tablet RxNorm: 263527 1 Tablet(s) PO QHS 07/04/2014 0 10/31/2014 Inactive [SAVINGS FOR NON-COVERED DRUGS -- BIN:00 3585, PCN: ASPROD1, Group: XXXXX, ID# [id number], Questions: . THIS IS NOT INSURANCE.] allopurinol 300 mg tablet RxNorm: 752920 1 Tablet(s) PO QD 06/17/19 15 06/15/2014 Inactive allopurinol 300 mg tablet RxNorm: 057040 1 Tablet(s) PO QD 06/17/19 15 02/06/2015 Inactive [SAVINGS FOR NON-COVERED TATYANA GS -- BIN:790094, PCN: ASPROD1, Group: XXXXX, ID# [id number], Questions: . THIS IS NOT INSURANCE.] naproxen 500 mg tablet RxNorm: 675426 1 Tablet(s) PO BID 06/16/2014 0 07/19/2015 Inactive [SAVINGS FOR NON-COVERED DRUGS -- BIN:00 3585, PCN: ASPROD1, Group: XXXXX, ID# [id number], Questions: . THIS IS NOT INSURANCE.] metformin ER 1,000 mg 24 hr tablet,extended release RxNorm: 269207 1 Tablet(s) PO QD 03/14/2014 02/06/2015 Inactive [SAVINGS FOR UNI NSURED PATIENTS -- BIN:900755, PCN: ASPROD1, Group: AME08, ID# [id number], Process claim through [employer], for questions: . THIS IS NOT INSURANCE.] metformin ER 500 mg tablet,extended release 24hr RxNorm: 860 975 1 Tablet(s) PO QD 01/05/2014 03/13/2014 Inactive [SAVINGS FOR UNI NSURED PATIENTS -- BIN:961045, PCN: ASPROD1, Group: AME08, ID# [id number], Process claim through [employer], for questions: . THIS IS NOT INSURANCE.] metformin ER 500 mg tablet,extended release 24hr RxNorm: 860 975 1 Tablet(s) PO QD 11/28/2013 01/04/2014 Inactive [SAVINGS FOR UNI NSURED PATIENTS -- BIN:055807, PCN: ASPROD1, Group: AME08, ID# [id number], Process claim through [employer], for questions: . THIS IS NOT INSURANCE.] Keflex 500 mg capsule RxNorm: 092344 1 Capsule(s) PO TID 11/09/2013 0 11/15/2013 Inactive [SAVINGS FOR UNINSURED PATIENTS -- BIN:0 73401, PCN: ASPROD1, Group: AME08, ID# [id number], Process claim through [employer], for questions: . THIS IS NOT INSURANCE.] diltiazem ER (XR/XT) 120 mg capsule,extended release,control led RxNorm: 096096 1 Capsule(s) PO QD 11/09/2013 11/03/2014 Inactive [SAVINGS FOR UN INSURED PATIENTS -- BIN:886325, PCN: ASPROD1, Group: MONSERRATEIan, ID# [id number], Process claim through [employer], for questions: . THIS IS NOT INSURANCE.] lisinopril 20 mg-hydrochlorothiazide 12.5 mg tablet RxNorm: 216803 2 Tablet(s) PO QAM 11/09/2013 11/20/2014 Inactive [AttnRPh: Saving apply/adjudicate RxGRP:SG20 RxBIN:[id number] RxPCN: ID#:[id number]] diltiazem ER (XR/XT) 120 mg capsule,extended release,control led RxNorm: 788357 1 Capsule(s) PO QD -need labs 10/31/2013 11/08/2013 Inactive [DELICIA INGS FOR UNINSURED PATIENTS -- BIN:521998, PCN: ASPROD1, Group: TRAN, ID# [id number], Process claim through [employer], for questions: . THIS IS NOT INSURANCE.] lisinopril 20 mg-hydrochlorothiazide 12.5 mg tablet RxNorm: 320261 2 Tablet(s) PO QAM 10/31/2013 11/08/2013 Inactive [AttnRPh: Saving apply/adjudicate RxGRP:SG20 RxBIN:[id number] RxPCN: ID#:[id number]] diltiazem ER (XR/XT) 120 mg capsule,extended release,control led RxNorm: 473070 1 Capsule(s) PO QD -need labs 09/12/2013 10/11/2013 Inactive [DELICIA INGS FOR UNINSURED PATIENTS -- BIN:715060, PCN: ASPROD1, Group: AME08, ID# [id number], Process claim through [employer], for questions: . THIS IS NOT INSURANCE.] Omnicef 300 mg capsule RxNorm: 379323 2 Capsule(s) PO QD 11/24/2012 0 11/08/2013 Inactive naproxen 500 mg tablet RxNorm: 531301 1 Tablet(s) PO TID 11/04/2012 0 11/03/2012 Inactive allopurinol 100 mg tablet RxNorm: 568365 1 Tablet(s) PO BID 013 11/08/2013 Inactive naproxen 500 mg tablet RxNorm: 776110 1 Tablet(s) PO TID 11/04/2012 0 11/08/2013 Inactive diltiazem ER (XR/XT) 120 mg capsule,extended release,control led RxNorm: 239290 1 Capsule(s) PO QD 08/02/2012 09/12/2013 Inactive lisinopril 20 mg-hydrochlorothiazide 12.5 mg tablet RxNorm: 536372 2 Tablet(s) PO QAM 08/02/2012 07/27/2013 Inactive acyclovir 800 mg tablet RxNorm: 270689 1 Tablet(s) PO D Take 1 tablet by mouth 5 times daily 02/26/2012 11/02/2012 Inactive acyclovir 800 mg tablet RxNorm: 052476 1 Tablet(s) PO D 02/25/2012 Inactive clindamycin 300 mg capsule RxNorm: 522692 1 Capsule(s) PO TID 02/2403/02/2012 Inactive lisinopril-hydrochlorothiazide 20 mg-12.5 mg tablet RxNorm: 954146 2 Tablet(s) PO QAM 01/30/2012 08/01/2012 Inactive diltiazem ER (XR/XT) 120 mg capsule,extended release,control led RxNorm: 211416 1 Capsule(s) PO QD 01/30/2012 08/01/2012 Inactive lisinopril-hydrochlorothiazide 20 mg-12.5 mg tablet RxNorm: 016164 2 Tablet(s) PO QAM 01/30/2012 10/11/2019 Inactive diltiazem ER (XR/XT) 120 mg capsule,extended release,control led RxNorm: 187058 1 Capsule(s) PO QD 01/30/2012 10/11/2019 Inactive Culturelle 10 billion cell capsule RxNorm: 791688 1 Capsule(s) PO Q D 10/16/2011 02/24/2012 Inactive Omnicef 300 mg capsule RxNorm: 407058 2 Capsule(s) PO QD 09/24/2011 0 11/02/2012 Inactive diltiazem ER (XR/XT) 120 mg capsule,extended release,control led RxNorm: 639098 1 Capsule(s) PO QD 09/09/2011 01/29/2012 Inactive Culturelle 10 billion cell Cap RxNorm: 979556 1 Capsule (s) PO BID take a few hours after Doxycycline. Probiotic 09/09/2011 09/28/2011 Inactive lisinopril-hydrochlorothiazide 20 mg-12.5 mg tablet RxNorm: 436351 2 Tablet(s) PO QAM 09/09/2011 01/29/2012 Inactive doxycycline hyclate 100 mg Tab RxNorm: 7789046 1 Tablet( s) PO BID antibiotic. (may make a little sensitive to sunburn) 09/09/2011 09/18/2011 Inactiv e lisinopril-hydrochlorothiazide 20 mg-12.5 mg Tab RxNorm: 197 886 2 Tablet(s) PO QAM Due for yearly check-up 09/08/2011 09/08/2011 Inactive diltiazem ER (XR/XT) 120 mg Continuous Release Cap RxNorm: 8 25750 1 Capsule(s) PO QD Due for yearly check-up. 09/08/2011 09/08/2011 Inactive diltiazem ER (XR/XT) 120 mg Continuous Release Cap RxNorm: 8 79571 1 Capsule(s) PO QD 08/29/2010 08/23/2011 Inactive lisinopril-hydrochlorothiazide 20 mg-12.5 mg Tab RxNorm: 197 886 2 Tablet(s) PO QAM 08/29/2010 08/23/2011 Inactive lisinopril-hydrochlorothiazide 20 mg-25 mg Tab RxNorm: 046776 1 Tablet(s) PO QD 08/21/2010 08/28/2010 Inactive allopurinol 100 mg tablet RxNorm: 832214 1 Tablet(s) PO QD 04/22/19 11 08/28/2010 Inactive allopurinol 100 mg Tab RxNorm: 128260 1 Tablet(s) PO QD 12/18/2009 Inactive Allopurinol 100 mg Tab RxNorm: 175205 1 Tablet(s) PO QD 12/12/2009 Inactive Allopurinol 100 mg Tab RxNorm: 893240 1 Tablet(s) PO QD 10/30/2009 Inactive Omnicef 300 mg Cap RxNorm: 115780 2 Capsule(s) PO QD 10/01/200910/29 Inactive Allopurinol 100 mg Tab RxNorm: 615392 1 Tablet(s) PO QD 10/01/2009 Inactive Vitamin D3 oral RxNorm: 2418 oral 04/18/2020 Active Vitamin C oral RxNorm: 1151 oral 04/18/2020 Active Vitamin B12 1000mcg Tablet RxNorm: 1 Tablet(s) PO QD 08/29/2010 Inactive lisinopril 20 mg-hydrochlorothiazide 12.5 mg tablet RxNorm: 529064 1 Tablet(s) PO QAM 11/20/2014 11/19/2014 Inactive Medrol (Sid) 4 mg tablets in a dose pack RxNorm: 348686 Tablet(s) PO as directed 11/09/2013 11/08/2013 Inactive Omnicef 300 mg Cap RxNorm: 778109 2 Capsule(s) PO QD 09/24/201112/11 Inactive Fish Oil 1,000 mg Cap RxNorm: 1 Capsule(s) PO QD 11/09/20132013 Inactive diltiazem ER (XR/XT) 120 mg Continuous Release Cap RxNorm: 8 25248 1 Capsule(s) PO QD 08/29/2010 08/28/2010 Inactive Culturelle 10 billion cell capsule RxNorm: 386139 1 Capsule(s) PO Q D 11/03/2012 11/02/2012 Inactive metformin ER 500 mg tablet,extended release 24hr RxNorm: 860 975 1 Tablet(s) PO QD 11/28/2013 11/27/2013 Inactive Lisinopril Oral RxNorm: Oral 10/01/2009 10/01/2009 Inactive Vitamin B12 1000mcg Tablet RxNorm: 1 Tablet(s) PO QD 12/18/2015 Inactive Vitamin B12 1000mcg Tablet RxNorm: 1 Tablet(s) PO QD 11/09/2013 Inactive lisinopril-hydrochlorothiazide 20 mg-25 mg Tab RxNorm: 564361 1 Tablet(s) PO QD 08/21/2010 2010 Inactive metformin ER 1,000 mg 24 hr tablet,extended release RxNorm: 407951 1 Tablet(s) PO QD 03/14/2014 03/13/2014 Inactive Fish Oil 1,000 mg capsule RxNorm: 1 Capsule(s) PO QD 12/18/2015 Inactive Medication Administered No Medication Administered data Immunizations Vaccine Codes Date Status B12 Unknown 09/24/2011 Results Observation Observation Code Item Item Code Result Date S ervice Location GLYCOSYLATED HEMOGLOBIN TEST 58194 Hgb A1c 02991-1 5.7 % 0 04/18/2020 Unknown GFR CALC 3182191 GFR Non Afr Amr >60 mL/min 04/18/2020 Un known GFR CALC 1400672 GFR Afr Amr >60 mL/min 04/18/2020 Unknow n COMPREHENSIVE METABOLIC 51486 AST 35 U/L 2020 Unknown COMPREHENSIVE METABOLIC 98617 ALT 45 U/L 2020 Unknown COMPREHENSIVE METABOLIC 38926 BUN 10 mg/dL 2020 Unknown COMPREHENSIVE METABOLIC 09860 ALBUMIN 4.3 g/dL 2020 Unknown COMPREHENSIVE METABOLIC 24021 CHLORIDE 101 mmol/L 04/18 Unknown COMPREHENSIVE METABOLIC 51554 Bili Total 0.8 mg/dL 04/18 Unknown COMPREHENSIVE METABOLIC 34941 ALK PHOS 73 U/L 2020 Unknown COMPREHENSIVE METABOLIC 78298 SODIUM 137 mmol/L 04/18 Unknown COMPREHENSIVE METABOLIC 21839 CREATININE 0.99 mg/dL 03/27 Unknown COMPREHENSIVE METABOLIC 89738 CALCIUM 9.1 mg/dL 2020 Unknown COMPREHENSIVE METABOLIC 45492 POTASSIUM 4.3 mmol/L 04/18 Unknown COMPREHENSIVE METABOLIC 67506 Total Protein 7.0 g/dL Unknown COMPREHENSIVE METABOLIC 30117 Glucose 133 mg/dL 2020 Unknown COMPREHENSIVE METABOLIC 30860 Bicarbonate 26 mmol/L 03/27 Unknown COMPREHENSIVE METABOLIC 19857 AGAP 10 mmol/L 2020 Unknown MEAN GLUC 1239718 Calc Mean Gluc 117 mg/dL 04/18/2020 Unkn own LIPID GROUP 75273 Cholesterol 187 mg/dL 04/18/2020 Unkno wn L[facility] GROUP 44687 Triglyceride 87 mg/dL 04/18/2020 Unkn own [facility] 98666 HDL CHOLESTEROL 59 mg/dL 04/18/2020 U nknown LIPID GROUP 40394 Chol/HDL Ratio 3.17 ratio 04/18/2020 U nknown LIPID GROUP 22730 NON-HDL Chol 128 mg/dL 04/18/2020 Unkn own LIP[facility] GROUP 61617 LDL Cholesterol 111 mg/dL 04/18/2020 U nknown HEPATITIS C ANTIBODY 52612 Hepatitis C Ab Non-Reactive 02/01/2018 Unknown GLYCOSYLATED HEMOGLOBIN TEST 10781 Hgb A1c 61273-4 6.2 % 1 04/01/2017 Unknown GFR CALC 9504441 GFR Non Afr Amr >60 mL/min 01/29/2018 Un known GFR CALC 6353658 GFR Afr Amr >60 mL/min 01/29/2018 Unknow n COMPREHENSIVE METABOLIC 20731 AST 17 U/L 2017 Unknown COMPREHENSIVE METABOLIC 53895 ALT 17 U/L 2017 Unknown COMPREHENSIVE METABOLIC 15100 BUN 12 mg/dL 2017 Unknown COMPREHENSIVE METABOLIC 84509 ALBUMIN 4.6 g/dL 2017 Unknown COMPREHENSIVE METABOLIC 18098 CHLORIDE 101 mmol/L 01/29 Unknown COMPREHENSIVE METABOLIC 40874 Bili Total 0.9 mg/dL 01/29 Unknown COMPREHENSIVE METABOLIC 68253 ALK PHOS 57 U/L 2017 Unknown COMPREHENSIVE METABOLIC 16287 SODIUM 136 mmol/L 01/29 Unknown COMPREHENSIVE METABOLIC 58405 CREATININE 1.00 mg/dL 08/2017 Unknown COMPREHENSIVE METABOLIC 69297 CALCIUM 9.6 mg/dL 2017 Unknown COMPREHENSIVE METABOLIC 26881 POTASSIUM 4.2 mmol/L 01/29 Unknown COMPREHENSIVE METABOLIC 99746 Total Protein 6.9 g/dL Unknown COMPREHENSIVE METABOLIC 34021 Glucose 128 mg/dL 2017 Unknown COMPREHENSIVE METABOLIC 64744 Bicarbonate 27 mmol/L 08/2017 Unknown COMPREHENSIVE METABOLIC 36655 AGAP 8 mmol/L 2017 Unknown LIPID GROUP 96799 Cholesterol 168 mg/dL 01/29/2018 Unkno wn LIPID GROUP 25477 Triglyceride 82 mg/dL 01/29/2018 Unkn own LIPID GROUP 93682 HDL CHOLESTEROL 43 mg/dL 01/29/2018 U nknown LIPID GROUP 00313 Chol/HDL Ratio 3.91 ratio 01/29/2018 U nknown LIPID GROUP 02063 NON-HDL Chol 125 mg/dL 01/29/2018 Unkn own LIPID GROUP 55914 LDL Cholesterol 109 mg/dL 01/29/2018 U nknown MEAN GLUC 9748692 Calc Mean Gluc 131 mg/dL 01/29/2018 Unkn own LIPID GROUP 13312 Cholesterol 164 mg/dL 05/01/2017 Unkno wn LIPID GROUP 20749 Triglyceride 131 mg/dL 05/01/2017 Unkn own LIPID GROUP 63224 HDL CHOLESTEROL 45 mg/dL 05/01/2017 U nknown LIPID GROUP 60156 Chol/HDL Ratio 3.64 ratio 05/01/2017 U nknown LIPID GROUP 60986 NON-HDL Chol 119 mg/dL 05/01/2017 Unkn own LIPID GROUP 61889 LDL Cholesterol 93 mg/dL 05/01/2017 U nknown COMPLETE BLOOD COUNT 2447106 WBC 4.9 10e9/L 05/02/19 18 Unknown COMPLETE BLOOD COUNT 6176082 RBC 4.31 10e12/L 2017 Unknown COMPLETE BLOOD COUNT 3879925 HEMOGLOBIN 14.3 g/dL 05/02/19 18 Unknown COMPLETE BLOOD COUNT 3784284 HEMATOCRIT 42.8 % 05/02/19 18 Unknown COMPLETE BLOOD COUNT 8657756 MCV 99.3 fL 8 Unknown COMPLETE BLOOD COUNT 3229001 MCH 33.2 pg 8 Unknown COMPLETE BLOOD COUNT 9203455 MCHC 33.4 g/dL 8 Unknown COMPLETE BLOOD COUNT 4522029 PLATELET COUNT 241 10e9/L 10/2017 Unknown COMPLETE BLOOD COUNT 7766224 Mean Plt Volume 11.0 fL 10/2017 Unknown COMPLETE BLOOD COUNT 1421100 Neut Auto 56.6 % 8 Unknown COMPLETE BLOOD COUNT 7660416 Lymph Auto 24.7 % 05/02/19 18 Unknown COMPLETE BLOOD COUNT 8137623 Reeves Auto 11.6 % 8 Unknown COMPLETE BLOOD COUNT 6777780 RDW 13.2 % 8 Unknown COMPLETE BLOOD COUNT 0730930 Eos Auto 6.9 % 8 Unknown COMPLETE BLOOD COUNT 4758372 Baso Auto 0.2 % 8 Unknown COMPLETE BLOOD COUNT 5680639 Neutrophil Abs 2.77 10e9/L Unknown COMPLETE BLOOD COUNT 4964662 Lymphocyte Abs 1.21 10e9/L Unknown COMPLETE BLOOD COUNT 0022845 Monocyte Abs 0.57 10e9/L 10/2017 Unknown COMPLETE BLOOD COUNT 9925628 Eosinophil Abs 0.34 10e9/L Unknown COMPLETE BLOOD COUNT 9689547 Basophil Abs 0.01 10e9/L 10/2017 Unknown COMPLETE BLOOD COUNT 8641261 RDW-SD 47.2 fL 8 Unknown GLYCOSYLATED HEMOGLOBIN TEST 93437 Hgb A1c 77524-7 6.0 % 0 05/01/2017 Unknown GFR CALC 0601774 GFR Afr Amr >60 mL/min 05/01/2017 Unknow n GFR CALC 6294197 GFR Non Afr Amr >60 mL/min 05/01/2017 Un known MEAN GLUC 0964770 Calc Mean Gluc 126 mg/dL 05/01/2017 Unkn own COMPREHENSIVE METABOLIC 07204 AST 17 U/L 2017 Unknown COMPREHENSIVE METABOLIC 85977 ALT 16 U/L 2017 Unknown COMPREHENSIVE METABOLIC 53682 BUN 13 mg/dL 2017 Unknown COMPREHENSIVE METABOLIC 59933 ALBUMIN 3.9 g/dL 2017 Unknown COMPREHENSIVE METABOLIC 56091 CHLORIDE 104 mmol/L 05/01 Unknown COMPREHENSIVE METABOLIC 93292 Bili Total 0.7 mg/dL 05/01 Unknown COMPREHENSIVE METABOLIC 68135 ALK PHOS 58 U/L 2017 Unknown COMPREHENSIVE METABOLIC 32247 SODIUM 139 mmol/L 05/01 Unknown COMPREHENSIVE METABOLIC 08761 CREATININE 0.99 mg/dL 10/2017 Unknown COMPREHENSIVE METABOLIC 84937 CALCIUM 9.5 mg/dL 2017 Unknown COMPREHENSIVE METABOLIC 92982 POTASSIUM 4.3 mmol/L 05/01 Unknown COMPREHENSIVE METABOLIC 74290 Total Protein 6.7 g/dL Unknown COMPREHENSIVE METABOLIC 96588 Glucose 110 mg/dL 2017 Unknown COMPREHENSIVE METABOLIC 60511 Bicarbonate 27 mmol/L 10/2017 Unknown COMPREHENSIVE METABOLIC 27931 AGAP 8 mmol/L 2017 Unknown PSA EQUIMOLAR NITHIN 71120 PSA Total 1.10 ng/mL 8 Unknown THYROID STIMULATING HORMONE 25753 TSH 0.673 uIU/mL 05/01/2017 Unknown GLYCOSYLATED HEMOGLOBIN TEST 02248 Hgb A1c 33869-0 5.8 % 1 03/08/2015 Unknown MEAN GLUC 1790428 Calc Mean Gluc 120 mg/dL 01/07/2016 Unkn own FREE T4 82564 T4 Free 1.13 ng/dL 01/04/2016 Unknown THYROID STIMULATING HORMONE 96523 TSH 0.875 uIU/mL 01/04/2016 Unknown COMPREHENSIVE METABOLIC 22814 AST 20 U/L 2015 Unknown COMPREHENSIVE METABOLIC 84294 ALT 20 U/L 2015 Unknown COMPREHENSIVE METABOLIC 23152 BUN 14 mg/dL 2015 Unknown COMPREHENSIVE METABOLIC 90750 ALBUMIN 4.4 g/dL 2015 Unknown COMPREHENSIVE METABOLIC 14207 CHLORIDE 103 mmol/L 01/03 Unknown COMPREHENSIVE METABOLIC 69601 Bili Total 0.5 mg/dL 01/03 Unknown COMPREHENSIVE METABOLIC 43934 ALK PHOS 53 U/L 2015 Unknown COMPREHENSIVE METABOLIC 66354 SODIUM 137 mmol/L 01/03 Unknown COMPREHENSIVE METABOLIC 02372 CREATININE 0.98 mg/dL 12/24 Unknown COMPREHENSIVE METABOLIC 31560 CALCIUM 9.6 mg/dL 2015 Unknown COMPREHENSIVE METABOLIC 18409 POTASSIUM 4.5 mmol/L 01/03 Unknown COMPREHENSIVE METABOLIC 41811 Total Protein 7.0 g/dL Unknown COMPREHENSIVE METABOLIC 07919 Glucose 117 mg/dL 2015 Unknown COMPREHENSIVE METABOLIC 62196 Bicarbonate 26 mmol/L 12/24 Unknown COMPREHENSIVE METABOLIC 00130 AGAP 8 mmol/L 2015 Unknown COMPLETE BLOOD COUNT 1011832 WBC 6.2 10e9/L 01/04/20 16 Unknown COMPLETE BLOOD COUNT 6688631 RBC 4.55 10e12/L 2015 Unknown COMPLETE BLOOD COUNT 6636853 HEMOGLOBIN 15.0 g/dL 01/04/20 16 Unknown COMPLETE BLOOD COUNT 0282264 HEMATOCRIT 43.8 % 01/04/20 16 Unknown COMPLETE BLOOD COUNT 8610097 MCV 96.3 fL 6 Unknown COMPLETE BLOOD COUNT 6690997 MCH 33.0 pg 6 Unknown COMPLETE BLOOD COUNT 5174433 MCHC 34.2 g/dL 6 Unknown COMPLETE BLOOD COUNT 0724748 PLATELET COUNT 259 10e9/L 12/2015 Unknown COMPLETE BLOOD COUNT 7123969 Mean Plt Volume 10.8 fL 12/2015 Unknown COMPLETE BLOOD COUNT 7196400 Neut Auto 62.4 % 6 Unknown COMPLETE BLOOD COUNT 5126234 Lymph Auto 25.9 % 01/04/20 16 Unknown COMPLETE BLOOD COUNT 4210811 Reeves Auto 6.8 % 6 Unknown COMPLETE BLOOD COUNT 0320968 RDW 13.4 % 6 Unknown COMPLETE BLOOD COUNT 1768757 Eos Auto 4.9 % 6 Unknown COMPLETE BLOOD COUNT 4450303 Baso Auto 0.0 % 6 Unknown COMPLETE BLOOD COUNT [id number] Neutrophil Abs 3.87 10e9/L Unknown COMPLETE BLOOD COUNT [id number] Lymphocyte Abs 1.61 10e9/L Unknown COMPLETE BLOOD COUNT [id number] Monocyte Abs 0.42 10e9/L 12/24 Unknown COMPLETE BLOOD COUNT [id number] Eosinophil Abs 0.30 10e9/L Unknown COMPLETE BLOOD COUNT [id number] Basophil Abs 0.00 10e9/L 12/24 Unknown COMPLETE BLOOD COUNT [id number] RDW-SD 46.2 fL 6 Unknown PSA EQUIMOLAR NITHIN 99675 PSA Total 1.14 ng/mL 6 Unknown GFR CALC [id number] GFR Non Afr Amr >60 mL/min 01/04/2016 Un known GFR CALC [id number] GFR Afr Amr >60 mL/min 01/04/2016 Unknow n [facility] 91475 Cholesterol 172 mg/dL 01/04/2016 Unkno wn [facility] 20160 Triglyceride 156 mg/dL 01/04/2016 Unkn own [facility] 41276 HDL CHOLESTEROL 42 mg/dL 01/04/2016 U nknown [facility] 40782 Chol/HDL Ratio 4.10 ratio 01/04/2016 U nknown [facility] 01207 NON-HDL Chol 130 mg/dL 01/04/2016 Unkn own [facility] 97452 LDL Cholesterol 99 mg/dL 01/04/2016 U nknown GLYCOSYLATED HEMOGLOBIN TEST 29442 A1C HPLC 12593-1 5.8 % 1 04/10/2014 Unknown COMPLETE BLOOD COUNT [id number] WBC 6.0 10e9/L 02/03/20 15 Unknown COMPLETE BLOOD COUNT [id number] RBC 4.39 10e12/L 2014 Unknown COMPLETE BLOOD COUNT [id number] HGB 14.3 g/dL 5 Unknown COMPLETE BLOOD COUNT 3615299 HCT DET 41.7 % 5 Unknown COMPLETE BLOOD COUNT 1848686 MCV 95.0 fL 5 Unknown COMPLETE BLOOD COUNT [id number] MCH 32.6 pg 5 Unknown COMPLETE BLOOD COUNT [id number] MCHC 34.3 g/dL 5 Unknown COMPLETE BLOOD COUNT [id number] PLT 272 10e9/L 02/03/20 15 Unknown COMPLETE BLOOD COUNT [id number] MPV 11.1 fL 5 Unknown COMPLETE BLOOD COUNT [id number] GARY % 62.7 % 5 Unknown COMPLETE BLOOD COUNT [id number] LY % 25.2 % 5 Unknown COMPLETE BLOOD COUNT [id number] MON % 7.9 % 5 Unknown COMPLETE BLOOD COUNT [id number] EOS % 4.0 % 5 Unknown COMPLETE BLOOD COUNT [id number] BASO % 0.2 % 5 Unknown COMPLETE BLOOD COUNT 5774258 RDW 13.2 % 5 Unknown COMPLETE BLOOD COUNT 6162102 ABS GARY 3.76 10e9/L 015 Unknown COMPLETE BLOOD COUNT 8526846 ABS LYMPH 1.51 10e9/L 015 Unknown COMPLETE BLOOD COUNT [id number] ABS MONO 0.47 10e9/L 015 Unknown COMPLETE BLOOD COUNT [id number] ABS EOS 0.24 10e9/L 015 Unknown COMPLETE BLOOD COUNT 6691726 ABS BASO 0.01 10e9/L 015 Unknown COMPLETE BLOOD COUNT 2527205 RDW-SD 44.7 fL 5 Unknown GFR CALC 7605174 GFR AA >60 ML/MIN 02/02/2015 Unknown GFR CALC 7094263 GFR NON-AA >60 ML/MIN 02/02/2015 Unknown THYROID STIMULATING HORMONE 04820 TSH 0.970 uIU/ML 02/02/2015 Unknown LIPID GROUP 85674 HDL TEST 41 MG/DL 02/02/2015 Unknown LIPID GROUP 79885 TRIG 151 MG/DL 02/02/2015 Unknown LIPID GROUP 66616 TEST LDL 122 MG/DL 02/02/2015 Unknown LIPID GROUP 55504 CHOL 193 MG/DL 02/02/2015 Unknown LIPID GROUP 01462 RCHOL/HDL 4.71 RATIO 02/02/2015 Unknow n LIPID GROUP 11058 NON-HDL CH 152 MG/DL 02/02/2015 Unknow n PSA EQUIMOLAR NITHIN 64007 PSA EQ 0.76 NG/ML 5 Unknown FREE T4 67883 FREE T4 0.93 NG/DL 02/02/2015 Unknown COMPREHENSIVE METABOLIC 52182 AST 21 U/L 2014 Unknown COMPREHENSIVE METABOLIC 43938 ALT 21 IU/L 2014 Unknown COMPREHENSIVE METABOLIC 83587 BUN 15 MG/DL 2014 Unknown COMPREHENSIVE METABOLIC 72051 ALBUMIN 4.5 GM/DL 2014 Unknown COMPREHENSIVE METABOLIC 98756 CHLORIDE 104 MMOL/L 02/02 Unknown COMPREHENSIVE METABOLIC 46020 BILI TOT 1.0 MG/DL 2014 Unknown COMPREHENSIVE METABOLIC 66377 ALK PHOS 71 U/L 2014 Unknown COMPREHENSIVE METABOLIC 35034 SODIUM 136 MMOL/L 02/02 Unknown COMPREHENSIVE METABOLIC 85891 CREATININE 0.94 MG/DL 01/23 Unknown COMPREHENSIVE METABOLIC 11298 CALCIUM 9.8 MG/DL 2014 Unknown COMPREHENSIVE METABOLIC 21992 POTASSIUM 4.3 MMOL/L 02/02 Unknown COMPREHENSIVE METABOLIC 53178 PROT TOT 6.9 GM/DL 2014 Unknown COMPREHENSIVE METABOLIC 39706 Glucose 113 MG/DL 2014 Unknown COMPREHENSIVE METABOLIC 98272 BICARB 26 MMOL/L 2014 Unknown COMPREHENSIVE METABOLIC 49969 ANION GAP 6 MEQ/L 2014 Unknown ANTI STREPTOLYSIN O TITER(ASO) 65508 ASO 57 IU/ML 06/19/2014 Unknown RA FACTOR 55118 RA FACTOR <20.0 IU/ML 06/15/2014 Unknown FREE T4 01544 FREE T4 1.19 NG/DL 06/15/2014 Unknown ANTINUCLEAR ANTIBODY SCREEN 75320 SHANNON SCR <1:80 Unknown ERYTHROCYTE SEDIMENTATION RATE 64572 ESR 2 MM/HR 06/14/2014 Unknown COMPLETE BLOOD COUNT [id number] WBC 6.7 10e9/L 06/15/19 15 Unknown COMPLETE BLOOD COUNT 4334458 RBC 4.86 10e12/L 2014 Unknown COMPLETE BLOOD COUNT 2633755 HGB 15.9 g/dL 5 Unknown COMPLETE BLOOD COUNT 7488194 HCT DET 45.0 % 5 Unknown COMPLETE BLOOD COUNT 0457141 MCV 92.6 fL 5 Unknown COMPLETE BLOOD COUNT 2023311 MCH 32.7 pg 5 Unknown COMPLETE BLOOD COUNT 4064771 MCHC 35.3 g/dL 5 Unknown COMPLETE BLOOD COUNT 8044774 PLT 299 10e9/L 06/15/19 15 Unknown COMPLETE BLOOD COUNT 2018364 MPV 10.0 fL 5 Unknown COMPLETE BLOOD COUNT 6270138 GARY % 63.8 % 5 Unknown COMPLETE BLOOD COUNT 0408017 LY % 18.3 % 5 Unknown COMPLETE BLOOD COUNT 6866156 MON % 12.1 % 5 Unknown COMPLETE BLOOD COUNT [id number] EOS % 5.7 % 5 Unknown COMPLETE BLOOD COUNT 8690908 BASO % 0.1 % 5 Unknown COMPLETE BLOOD COUNT 4992040 RDW 13.3 % 5 Unknown COMPLETE BLOOD COUNT 7749550 ABS GARY 4.27 10e9/L 015 Unknown COMPLETE BLOOD COUNT 2253284 ABS LYMPH 1.23 10e9/L 015 Unknown COMPLETE BLOOD COUNT 3581552 ABS MONO 0.81 10e9/L 015 Unknown COMPLETE BLOOD COUNT 0161982 ABS EOS 0.38 10e9/L 015 Unknown COMPLETE BLOOD COUNT 8296610 ABS BASO 0.01 10e9/L 015 Unknown COMPLETE BLOOD COUNT 0832669 RDW-SD 44.3 fL 5 Unknown URIC ACID 44832 URIC ACID 7.6 MG/DL 06/14/[place] [address] SYP AB NR 06/14/2014 Unknown THYROID STIMULATING HORMONE 67097 TSH 0.825 uIU/ML 06/14/2014 Unknown GLYCOSYLATED HEMOGLOBIN TEST 23481 A1C HPLC 43109-0 6.0 % 0 06/14/2014 Unknown VITAMIN B 12 FOLIC ACID 75951|98425 VIT B 12 751 PG/ML 05/25 Unknown VITAMIN B 12 FOLIC ACID 76069|88719 FOLIC ACID 23.5 NG/ML Unknown GFR CALC 6592226 GFR AA >60 ML/MIN 06/14/2014 Unknown GFR CALC 0517109 GFR NON-AA >60 ML/MIN 06/14/2014 Unknown C-REACTIVE PROTEIN (CRP) QUANT 30368 CRP 0.1 MG/DL 06/14/2014 Unknown COMPREHENSIVE METABOLIC 57594 AST 19 U/L 2014 Unknown COMPREHENSIVE METABOLIC 24223 ALT 16 IU/L 2014 Unknown COMPREHENSIVE METABOLIC 52767 BUN 13 MG/DL 2014 Unknown COMPREHENSIVE METABOLIC 95561 ALBUMIN 5.1 GM/DL 2014 Unknown COMPREHENSIVE METABOLIC 82023 CHLORIDE 92 MMOL/L 2014 Unknown COMPREHENSIVE METABOLIC 20345 BILI TOT 0.6 MG/DL 2014 Unknown COMPREHENSIVE METABOLIC 59811 ALK PHOS 61 U/L 2014 Unknown COMPREHENSIVE METABOLIC 79343 SODIUM 128 MMOL/L 06/14 Unknown COMPREHENSIVE METABOLIC 96830 CREATININE 1.00 MG/DL 05/25 Unknown COMPREHENSIVE METABOLIC 45838 CALCIUM 10.7 MG/DL 06/14 Unknown COMPREHENSIVE METABOLIC 32134 POTASSIUM 4.1 MMOL/L 06/14 Unknown COMPREHENSIVE METABOLIC 27945 PROT TOT 7.6 GM/DL 2014 Unknown COMPREHENSIVE METABOLIC 91633 Glucose 106 MG/DL 2014 Unknown COMPREHENSIVE METABOLIC 16547 BICARB 29 MMOL/L 2014 Unknown COMPREHENSIVE METABOLIC 72155 ANION GAP 7 MEQ/L 2014 Unknown COMPREHENSIVE METABOLIC 41867 AST 21 U/L 2014 Unknown COMPREHENSIVE METABOLIC 35494 ALT 26 IU/L 2014 Unknown COMPREHENSIVE METABOLIC 79387 BUN 16 MG/DL 2014 Unknown COMPREHENSIVE METABOLIC 11297 ALBUMIN 4.6 GM/DL 2014 Unknown COMPREHENSIVE METABOLIC 93648 CHLORIDE 99 MMOL/L 2014 Unknown COMPREHENSIVE METABOLIC 64817 BILI TOT 0.5 MG/DL 2014 Unknown COMPREHENSIVE METABOLIC 51568 ALK PHOS 57 U/L 2014 Unknown COMPREHENSIVE METABOLIC 42405 SODIUM 134 MMOL/L 03/09 Unknown COMPREHENSIVE METABOLIC 39895 CREATININE 0.91 MG/DL 02/23 Unknown COMPREHENSIVE METABOLIC 60374 CALCIUM 9.9 MG/DL 2014 Unknown COMPREHENSIVE METABOLIC 56525 POTASSIUM 4.3 MMOL/L 03/09 Unknown COMPREHENSIVE METABOLIC 54537 PROT TOT 7.0 GM/DL 2014 Unknown COMPREHENSIVE METABOLIC 76844 Glucose 91 MG/DL 2014 Unknown COMPREHENSIVE METABOLIC 94196 BICARB 30 MMOL/L 2014 Unknown COMPREHENSIVE METABOLIC 16866 ANION GAP 5 MEQ/L 2014 Unknown GLYCOSYLATED HEMOGLOBIN TEST 77037 A1C HPLC 03959-5 6.4 % 0 03/09/2014 Unknown GFR CALC 4872115 GFR AA >60 ML/MIN 03/09/2014 Unknown GFR CALC 2906027 GFR NON-AA >60 ML/MIN 03/09/2014 Unknown GLYCOSYLATED HEMOGLOBIN TEST 75934 A1C HPLC 25934-6 6.0 % 0 11/22/2013 Unknown THYROID STIMULATING HORMONE 75755 TSH 0.643 uIU/ML 11/18/2013 Unknown PSA EQUIMOLAR NITHIN 47651 PSA EQ 0.75 NG/ML 4 Unknown COMPREHENSIVE METABOLIC 22525 AST 21 U/L 2013 Unknown COMPREHENSIVE METABOLIC 16044 ALT 22 IU/L 2013 Unknown COMPREHENSIVE METABOLIC 23035 BUN 16 MG/DL 2013 Unknown COMPREHENSIVE METABOLIC 48451 ALBUMIN 4.6 GM/DL 2013 Unknown COMPREHENSIVE METABOLIC 88680 CHLORIDE 97 MMOL/L 2013 Unknown COMPREHENSIVE METABOLIC 01729 BILI TOT 0.8 MG/DL 2013 Unknown COMPREHENSIVE METABOLIC 81936 ALK PHOS 68 U/L 2013 Unknown COMPREHENSIVE METABOLIC 64381 SODIUM 132 MMOL/L 11/18 Unknown COMPREHENSIVE METABOLIC 42939 CREATININE 0.95 MG/DL 10/25 Unknown COMPREHENSIVE METABOLIC 83043 CALCIUM 10.1 MG/DL 11/18 Unknown COMPREHENSIVE METABOLIC 75423 POTASSIUM 4.2 MMOL/L 11/18 Unknown COMPREHENSIVE METABOLIC 05632 PROT TOT 7.2 GM/DL 2013 Unknown COMPREHENSIVE METABOLIC 83481 Glucose 125 MG/DL 2013 Unknown COMPREHENSIVE METABOLIC 62911 BICARB 26 MMOL/L 2013 Unknown COMPREHENSIVE METABOLIC 00784 ANION GAP 9 MEQ/L 2013 Unknown COMPLETE BLOOD COUNT 1048609 WBC 7.3 10e9/L 11/19/19 14 Unknown COMPLETE BLOOD COUNT 0101082 RBC 4.68 10e12/L 2013 Unknown COMPLETE BLOOD COUNT 7340626 HGB 15.4 g/dL 4 Unknown COMPLETE BLOOD COUNT 2408876 HCT DET 43.4 % 4 Unknown COMPLETE BLOOD COUNT 6140812 MCV 92.7 fL 4 Unknown COMPLETE BLOOD COUNT 1433535 MCH 32.9 pg 4 Unknown COMPLETE BLOOD COUNT 5316170 MCHC 35.5 g/dL 4 Unknown COMPLETE BLOOD COUNT 5138680 PLT 286 10e9/L 11/19/19 14 Unknown COMPLETE BLOOD COUNT 9131297 MPV 10.8 fL 4 Unknown COMPLETE BLOOD COUNT 5596909 GARY % 61.6 % 4 Unknown COMPLETE BLOOD COUNT 3922831 LY % 25.6 % 4 Unknown COMPLETE BLOOD COUNT 4013008 MON % 8.7 % 4 Unknown COMPLETE BLOOD COUNT 7073600 EOS % 4.0 % 4 Unknown COMPLETE BLOOD COUNT 2050671 BASO % 0.1 % 4 Unknown COMPLETE BLOOD COUNT 2055293 RDW 12.9 % 4 Unknown COMPLETE BLOOD COUNT 5730712 ABS GARY 4.50 10e9/L 014 Unknown COMPLETE BLOOD COUNT 1813214 ABS LYMPH 1.87 10e9/L 014 Unknown COMPLETE BLOOD COUNT 4744358 ABS MONO 0.64 10e9/L 014 Unknown COMPLETE BLOOD COUNT 5435393 ABS EOS 0.29 10e9/L 014 Unknown COMPLETE BLOOD COUNT 4887423 ABS BASO 0.01 10e9/L 014 Unknown COMPLETE BLOOD COUNT 5970451 RDW-SD 42.9 fL 4 Unknown LIPID GROUP 29506 HDL TEST 52 MG/DL 11/18/2013 Unknown LIPID GROUP 22489 TRIG 100 MG/DL 11/18/2013 Unknown LIPID GROUP 14759 TEST LDL 110 MG/DL 11/18/2013 Unknown LIPID GROUP 28305 CHOL 182 MG/DL 11/18/2013 Unknown LIPID GROUP 80402 RCHOL/HDL 3.50 RATIO 11/18/2013 Unknow n LIPID GROUP 74319 NON-HDL CH 130 MG/DL 11/18/2013 Unknow n FREE T4 59832 FREE T4 1.28 NG/DL 11/18/2013 Unknown GFR CALC 9284593 GFR AA >60 ML/MIN 11/18/2013 Unknown GFR CALC 3080679 GFR NON-AA >60 ML/MIN 11/18/2013 Unknown COMPREHENSIVE METABOLIC 52265 AST 21 U/L 2012 Unknown COMPREHENSIVE METABOLIC 89834 ALT 20 IU/L 2012 Unknown COMPREHENSIVE METABOLIC 92845 BUN 12 MG/DL 2012 Unknown COMPREHENSIVE METABOLIC 36284 ALBUMIN 4.6 GM/DL 2012 Unknown COMPREHENSIVE METABOLIC 09853 CHLORIDE 105 MMOL/L 11/03 Unknown COMPREHENSIVE METABOLIC 64737 BILI TOT 0.5 MG/DL 2012 Unknown COMPREHENSIVE METABOLIC 06504 ALK PHOS 53 U/L 2012 Unknown COMPREHENSIVE METABOLIC 04446 SODIUM 138 MMOL/L 11/03 Unknown COMPREHENSIVE METABOLIC 87280 CREATININE 0.93 MG/DL 10/24 Unknown COMPREHENSIVE METABOLIC 53909 CALCIUM 9.7 MG/DL 2012 Unknown COMPREHENSIVE METABOLIC 65143 POTASSIUM 4.3 MMOL/L 11/03 Unknown COMPREHENSIVE METABOLIC 97113 PROT TOT 7.0 GM/DL 2012 Unknown COMPREHENSIVE METABOLIC 13371 Glucose 117 MG/DL 2012 Unknown COMPREHENSIVE METABOLIC 39710 BICARB 25 MMOL/L 2012 Unknown COMPREHENSIVE METABOLIC 41056 ANION GAP 8 MEQ/L 2012 Unknown GFR CALC 4751488 GFR AA >60 ML/MIN 11/03/2012 Unknown GFR CALC 5645064 GFR NON-AA >60 ML/MIN 11/03/2012 Unknown THYROID STIMULATING HORMONE 88493 TSH 1.218 uIU/ML 11/03/2012 Unknown URIC ACID 12082 URIC ACID 7.6 MG/DL 11/03/2012 Unknown COMPLETE BLOOD COUNT 1630770 WBC 5.0 10e9/L 11/04/19 13 Unknown COMPLETE BLOOD COUNT 9088702 RBC 4.70 10e12/L 2012 Unknown COMPLETE BLOOD COUNT 5956865 HGB 15.6 g/dL 3 Unknown COMPLETE BLOOD COUNT 0299679 HCT DET 44.2 % 3 Unknown COMPLETE BLOOD COUNT 3761220 MCV 94.0 fL 3 Unknown COMPLETE BLOOD COUNT 7371234 MCH 33.2 pg 3 Unknown COMPLETE BLOOD COUNT 3345657 MCHC 35.3 g/dL 3 Unknown COMPLETE BLOOD COUNT 9738516 PLT 248 10e9/L 11/04/19 13 Unknown COMPLETE BLOOD COUNT 7585709 MPV 10.9 fL 3 Unknown COMPLETE BLOOD COUNT 7465594 GARY % 58.3 % 3 Unknown COMPLETE BLOOD COUNT 8787203 LY % 27.9 % 3 Unknown COMPLETE BLOOD COUNT 0286465 MON % 7.0 % 3 Unknown COMPLETE BLOOD COUNT 4714395 EOS % 6.6 % 3 Unknown COMPLETE BLOOD COUNT 2999248 BASO % 0.2 % 3 Unknown COMPLETE BLOOD COUNT 1358417 RDW 13.2 % 3 Unknown COMPLETE BLOOD COUNT 6882687 ABS GARY 2.92 10e9/L 013 Unknown COMPLETE BLOOD COUNT 4854775 ABS LYMPH 1.40 10e9/L 013 Unknown COMPLETE BLOOD COUNT 1342892 ABS MONO 0.35 10e9/L 013 Unknown COMPLETE BLOOD COUNT 9844565 ABS EOS 0.33 10e9/L 013 Unknown COMPLETE BLOOD COUNT 6014755 ABS BASO 0.01 10e9/L 013 Unknown COMPLETE BLOOD COUNT 3319419 RDW-SD 44.1 fL 3 Unknown HERPE1/2MG 59448|21178|84812 HSV G1 EIA 1.78 INDEX 3 Unknown HERPE1/2MG 73690|50841|08421 HSVM1/2EIA 0.15 02/26/2012 Unknown HERPE1/2MG 18778|52525|82545 HSV G2 EIA 10.14 INDEX 02/25/19 13 Unknown COMPLETE BLOOD COUNT 9234671 WBC 9.4 10e9/L 02/24/19 13 Unknown COMPLETE BLOOD COUNT 3766977 RBC 4.54 10e12/L 2012 Unknown COMPLETE BLOOD COUNT 4216304 HGB 14.9 g/dL 3 Unknown COMPLETE BLOOD COUNT 6862825 HCT DET 43.0 % 3 Unknown COMPLETE BLOOD COUNT 2657246 MCV 94.7 fL 3 Unknown COMPLETE BLOOD COUNT 5721044 MCH 32.8 pg 3 Unknown COMPLETE BLOOD COUNT 1547835 MCHC 34.7 g/dL 3 Unknown COMPLETE BLOOD COUNT 2154004 PLT 251 10e9/L 02/24/19 13 Unknown COMPLETE BLOOD COUNT 8305654 MPV 11.1 fL 3 Unknown COMPLETE BLOOD COUNT 2518009 GARY % 75.0 % 3 Unknown COMPLETE BLOOD COUNT 4437248 LY % 15.7 % 3 Unknown COMPLETE BLOOD COUNT 4843526 MON % 6.8 % 3 Unknown COMPLETE BLOOD COUNT 3700244 EOS % 2.3 % 3 Unknown COMPLETE BLOOD COUNT 1317387 BASO % 0.2 % 3 Unknown COMPLETE BLOOD COUNT 0514020 RDW 13.2 % 3 Unknown COMPLETE BLOOD COUNT 8251659 ABS GARY 7.05 10e9/L 013 Unknown COMPLETE BLOOD COUNT 7132181 ABS LYMPH 1.48 10e9/L 013 Unknown COMPLETE BLOOD COUNT 5734440 ABS MONO 0.64 10e9/L 013 Unknown COMPLETE BLOOD COUNT 8748543 ABS EOS 0.22 10e9/L 013 Unknown COMPLETE BLOOD COUNT 1855111 ABS BASO 0.02 10e9/L 013 Unknown COMPLETE BLOOD COUNT 1184105 RDW-SD 44.3 fL 3 Unknown COMPREHENSIVE METABOLIC 99585 AST 21 U/L 2012 Unknown COMPREHENSIVE METABOLIC 75255 ALT 22 IU/L 2012 Unknown COMPREHENSIVE METABOLIC 25521 BUN 12 MG/DL 2012 Unknown COMPREHENSIVE METABOLIC 39861 ALBUMIN 4.9 GM/DL 2012 Unknown COMPREHENSIVE METABOLIC 78591 CHLORIDE 102 MMOL/L 02/24 Unknown COMPREHENSIVE METABOLIC 62312 BILI TOT 0.6 MG/DL 2012 Unknown COMPREHENSIVE METABOLIC 15377 ALK PHOS 59 U/L 2012 Unknown COMPREHENSIVE METABOLIC 38248 SODIUM 137 MMOL/L 02/24 Unknown COMPREHENSIVE METABOLIC 27087 CREATININE 0.92 MG/DL 03/2012 Unknown COMPREHENSIVE METABOLIC 63985 CALCIUM 9.7 MG/DL 2012 Unknown COMPREHENSIVE METABOLIC 26418 POTASSIUM 4.1 MMOL/L 02/24 Unknown COMPREHENSIVE METABOLIC 09695 PROT TOT 6.9 GM/DL 2012 Unknown COMPREHENSIVE METABOLIC 44927 Glucose 127 MG/DL 2012 Unknown COMPREHENSIVE METABOLIC 38730 BICARB 25 MMOL/L 2012 Unknown COMPREHENSIVE METABOLIC 86659 ANION GAP 10 MEQ/L 2012 Unknown GFR CALC 4133786 GFR AA >60 ML/MIN 02/25/2012 Unknown GFR CALC 5275045 GFR NON-AA >60 ML/MIN 02/25/2012 Unknown TULAREM AB 7487185 TULAREM AB <1:20 09/23/2011 Unknown [place] FEVER 24689E7 IGG RMSF <1:16 0 09/19/2011 Unknown [place] FEVER [id number] IGM RMSF <1:10 0 09/19/2011 Unknown E CHAFF AB 4137270 IGG E CHFF <1:16 09/19/2011 Unknown E CHAFF AB 5320204 IGM E CHFF <1:10 09/19/2011 Unknown GLYCOSYLATED HEMOGLOBIN TEST 45198 A1C HPLC 13329-4 5.4 % 0 09/18/2011 Unknown GFR CALC 9988605 GFR AA >60 ML/MIN 09/17/2011 Unknown GFR CALC 6836377 GFR NON-AA >60 ML/MIN 09/17/2011 Unknown VITAMIN B 12 FOLIC ACID 25451|50508 VIT B 12 405 PG/ML 08/24 Unknown VITAMIN B 12 FOLIC ACID 28019|66782 FOLIC ACID 17.5 NG/ML Unknown COMPREHENSIVE METABOLIC 65399 AST 19 U/L 2011 Unknown COMPREHENSIVE METABOLIC 85331 ALT 19 IU/L 2011 Unknown COMPREHENSIVE METABOLIC 54718 BUN 12 MG/DL 2011 Unknown COMPREHENSIVE METABOLIC 02277 ALBUMIN 4.9 GM/DL 2011 Unknown COMPREHENSIVE METABOLIC 84869 CHLORIDE 98 MMOL/L 2011 Unknown COMPREHENSIVE METABOLIC 54765 BILI TOT 1.2 MG/DL 2011 Unknown COMPREHENSIVE METABOLIC 33002 ALK PHOS 60 U/L 2011 Unknown COMPREHENSIVE METABOLIC 72671 SODIUM 133 MMOL/L 09/16 Unknown COMPREHENSIVE METABOLIC 00580 CREATININE 1.12 MG/DL 08/24 Unknown COMPREHENSIVE METABOLIC 47298 CALCIUM 10.1 MG/DL 09/16 Unknown COMPREHENSIVE METABOLIC 84496 POTASSIUM 4.1 MMOL/L 09/16 Unknown COMPREHENSIVE METABOLIC 88129 PROT TOT 7.6 GM/DL 2011 Unknown COMPREHENSIVE METABOLIC 74455 Glucose 121 MG/DL 2011 Unknown COMPREHENSIVE METABOLIC 34468 BICARB 25 MMOL/L 2011 Unknown COMPREHENSIVE METABOLIC 59972 ANION GAP 10 MEQ/L 2011 Unknown COMPLETE BLOOD COUNT 16686 WBC 5.8 10e9/L 09/17/19 12 Unknown COMPLETE BLOOD COUNT 94880 RBC 5.01 10e12/L 2011 Unknown COMPLETE BLOOD COUNT 68862 HGB 16.4 g/dL 2 Unknown COMPLETE BLOOD COUNT 68288 HCT DET 46.7 % 2 Unknown COMPLETE BLOOD COUNT 27639 MCV 93.2 fL 2 Unknown COMPLETE BLOOD COUNT 24273 MCH 32.7 pg 2 Unknown COMPLETE BLOOD COUNT 43682 MCHC 35.1 g/dL 2 Unknown COMPLETE BLOOD COUNT 02694 PLT 275 10e9/L 09/17/19 12 Unknown COMPLETE BLOOD COUNT 27402 MPV 10.8 fL 2 Unknown COMPLETE BLOOD COUNT 84315 GARY % 47.1 % 2 Unknown COMPLETE BLOOD COUNT 61984 LY % 37.2 % 2 Unknown COMPLETE BLOOD COUNT 96847 MON % 9.5 % 2 Unknown COMPLETE BLOOD COUNT 36645 EOS % 5.9 % 2 Unknown COMPLETE BLOOD COUNT 03241 BASO % 0.3 % 2 Unknown COMPLETE BLOOD COUNT 14638 RDW 13.0 % 2 Unknown COMPLETE BLOOD COUNT 18417 ABS GARY 2.73 10e9/L 012 Unknown COMPLETE BLOOD COUNT 27924 ABS LYMPH 2.16 10e9/L 012 Unknown COMPLETE BLOOD COUNT 73735 ABS MONO 0.55 10e9/L 012 Unknown COMPLETE BLOOD COUNT 55370 ABS EOS 0.34 10e9/L 012 Unknown COMPLETE BLOOD COUNT 82355 ABS BASO 0.02 10e9/L 012 Unknown COMPLETE BLOOD COUNT 53879 RDW-SD 43.1 fL 2 Unknown LIPID GROUP 95825 HDL TEST 39 MG/DL 09/17/2011 Unknown LIPID GROUP 70293 TRIG 195 MG/DL 09/17/2011 Unknown LIPID GROUP 98541 TEST LDL 98 MG/DL 09/17/2011 Unknown LIPID GROUP 11304 CHOL 176 MG/DL 09/17/2011 Unknown LIPID GROUP 79784 RCHOL/HDL 4.51 RATIO 09/17/2011 Unknow n THYROID STIMULATING HORMONE 39288 TSH 2.892 uIU/ML 08/29/2010 Unknown COMPLETE BLOOD COUNT 34581 WBC 6.5 10e9/L 08/30/19 11 Unknown COMPLETE BLOOD COUNT 11030 RBC 4.83 10e12/L 2010 Unknown COMPLETE BLOOD COUNT 23200 HGB 15.9 g/dL 1 Unknown COMPLETE BLOOD COUNT 51443 HCT DET 44.4 % 1 Unknown COMPLETE BLOOD COUNT 47426 MCV 91.9 fL 1 Unknown COMPLETE BLOOD COUNT 45585 MCH 32.9 pg 1 Unknown COMPLETE BLOOD COUNT 34992 MCHC 35.8 g/dL 1 Unknown COMPLETE BLOOD COUNT 28165 PLT 273 10e9/L 08/30/19 11 Unknown COMPLETE BLOOD COUNT 84679 MPV 10.1 fL 1 Unknown COMPLETE BLOOD COUNT 57144 GARY % 45.3 % 1 Unknown COMPLETE BLOOD COUNT 97538 LY % 39.3 % 1 Unknown COMPLETE BLOOD COUNT 91284 MON % 9.8 % 1 Unknown COMPLETE BLOOD COUNT 56479 EOS % 5.4 % 1 Unknown COMPLETE BLOOD COUNT 13489 BASO % 0.2 % 1 Unknown COMPLETE BLOOD COUNT 82105 RDW 13.2 % 1 Unknown COMPLETE BLOOD COUNT 88580 ABS GARY 2.94 10e9/L 011 Unknown COMPLETE BLOOD COUNT 37374 ABS LYMPH 2.55 10e9/L 011 Unknown COMPLETE BLOOD COUNT 00823 ABS MONO 0.64 10e9/L 011 Unknown COMPLETE BLOOD COUNT 60447 ABS EOS 0.35 10e9/L 011 Unknown COMPLETE BLOOD COUNT 13044 ABS BASO 0.01 10e9/L 011 Unknown COMPLETE BLOOD COUNT 04508 RDW-SD 43.5 fL 1 Unknown FREE T4 33624 FREE T4 1.39 NG/DL 08/29/2010 Unknown LIPID GROUP 38429 HDL TEST 52 MG/DL 08/29/2010 Unknown LIPID GROUP 68184 TRIG 110 MG/DL 08/29/2010 Unknown LIPID GROUP 17392 TEST LDL 109 MG/DL 08/29/2010 Unknown LIPID GROUP 37848 CHOL 183 MG/DL 08/29/2010 Unknown LIPID GROUP 17745 RCHOL/HDL 3.52 RATIO 08/29/2010 Unknow n PSA EQUIMOLAR NITHIN 88240 PSA EQ 1.14 NG/ML 1 Unknown GFR CALC 0035559 GFR AA >60 ML/MIN 08/29/2010 Unknown GFR CALC 5749818 GFR NON-AA >60 ML/MIN 08/29/2010 Unknown COMPREHENSIVE METABOLIC 47751 AST 23 U/L 2010 Unknown COMPREHENSIVE METABOLIC 56558 ALT 19 IU/L 2010 Unknown COMPREHENSIVE METABOLIC 50644 BUN 12 MG/DL 2010 Unknown COMPREHENSIVE METABOLIC 63554 ALBUMIN 4.9 GM/DL 2010 Unknown COMPREHENSIVE METABOLIC 53300 CHLORIDE 95 MMOL/L 2010 Unknown COMPREHENSIVE METABOLIC 27608 BILI TOT 0.4 MG/DL 2010 Unknown COMPREHENSIVE METABOLIC 09231 ALK PHOS 59 U/L 2010 Unknown COMPREHENSIVE METABOLIC 78182 SODIUM 132 MMOL/L 08/29 Unknown COMPREHENSIVE METABOLIC 34952 CREATININE 0.96 MG/DL 08/2010 Unknown COMPREHENSIVE METABOLIC 51278 CALCIUM 10.6 MG/DL 08/29 Unknown COMPREHENSIVE METABOLIC 88173 POTASSIUM 4.0 MMOL/L 08/29 Unknown COMPREHENSIVE METABOLIC 54550 PROT TOT 8.0 GM/DL 2010 Unknown COMPREHENSIVE METABOLIC 77723 Glucose 105 MG/DL 2010 Unknown COMPREHENSIVE METABOLIC 14183 BICARB 22 MMOL/L 2010 Unknown COMPREHENSIVE METABOLIC 26718 ANION GAP 15 MEQ/L 2010 Unknown URIC ACID 36977 URIC ACID 6.7 MG/DL 12/12/2009 Unknown Procedures Procedure Codes Date ROUTINE VENIPUNCTURE CPT-4: 96468 04/18/2020 COMPREHEN METABOLIC PANEL CPT-4: 55576 04/18/2020 LIPID PANEL CPT-4: 92487 04/18/2020 A1C HPLC CPT-4: 35301 04/18/2020 PPPS, subseq visit CPT-4: G0439 10/12/2019 ROUTINE VENIPUNCTURE CPT-4: 00114 01/29/2018 COMPREHEN METABOLIC PANEL CPT-4: 12496 01/29/2018 LIPID PANEL CPT-4: 90686 01/29/2018 A1C HPLC CPT-4: 84772 01/29/2018 HEPATITIS C AB TEST CPT-4: 17876 01/29/2018 ROUTINE VENIPUNCTURE CPT-4: 92272 05/01/2017 ASSAY THYROID STIM HORMONE CPT-4: 94280 05/01/2017 COMPREHEN METABOLIC PANEL CPT-4: 71401 05/01/2017 COMPLETE CBC W/AUTO DIFF WBC CPT-4: 10501 05/01/2017 LIPID PANEL CPT-4: 42634 05/01/2017 A1C HPLC CPT-4: 32419 05/01/2017 ASSAY OF PSA TOTAL CPT-4: 68566 05/01/2017 ROUTINE VENIPUNCTURE CPT-4: 87413 01/04/2016 ASSAY OF FREE THYROXINE CPT-4: 87695 01/04/2016 ASSAY THYROID STIM HORMONE CPT-4: 19492 01/04/2016 COMPREHEN METABOLIC PANEL CPT-4: 23103 01/04/2016 COMPLETE CBC W/AUTO DIFF WBC CPT-4: 87017 01/04/2016 LIPID PANEL CPT-4: 80577 01/04/2016 ASSAY OF PSA TOTAL CPT-4: 32621 01/04/2016 A1C HPLC CPT-4: 96847 01/04/2016 ROUTINE VENIPUNCTURE CPT-4: 84753 02/02/2015 ASSAY OF FREE THYROXINE CPT-4: 16673 02/02/2015 ASSAY THYROID STIM HORMONE CPT-4: 05869 02/02/2015 COMPREHEN METABOLIC PANEL CPT-4: 47361 02/02/2015 COMPLETE CBC W/AUTO DIFF WBC CPT-4: 37116 02/02/2015 LIPID PANEL CPT-4: 47018 02/02/2015 ASSAY OF PSA TOTAL CPT-4: 08933 02/02/2015 A1C HPLC CPT-4: 07867 02/02/2015 THER/PROPH/DIAG INJ SC/IM CPT-4: 23801 07/19/2014 METHYLPREDNISOLONE 40 MG INJ CPT-4: J1030 07/19/2014 TRIAMCINOLONE ACET INJ NOS CPT-4: J3301 07/19/2014 ROUTINE VENIPUNCTURE CPT-4: 32593 06/14/2014 ASSAY OF FREE THYROXINE CPT-4: 20424 06/14/2014 ASSAY THYROID STIM HORMONE CPT-4: 62168 06/14/2014 COMPREHEN METABOLIC PANEL CPT-4: 53385 06/14/2014 COMPLETE CBC W/AUTO DIFF WBC CPT-4: 21410 06/14/2014 A1C HPLC CPT-4: 11358 06/14/2014 VITAMIN B 12 FOLIC ACID CPT-4: 09862|85294 06/14/2014 RBC SED RATE AUTOMATED CPT-4: 30983 06/14/2014 RHEUMATOID FACTOR QUANT CPT-4: 71568 06/14/2014 ANTINUCLEAR ANTIBODIES CPT-4: 82414 06/14/2014 ANTISTREPTOLYSIN O TITER CPT-4: 43300 06/14/2014 ASSAY OF BLOOD/URIC ACID CPT-4: 12400 06/14/2014 C-REACTIVE PROTEIN CPT-4: 67548 06/14/2014 ROUTINE VENIPUNCTURE CPT-4: 88851 03/09/2014 COMPREHEN METABOLIC PANEL CPT-4: 57336 03/09/2014 A1C HPLC CPT-4: 06362 03/09/2014 ROUTINE VENIPUNCTURE CPT-4: 89911 11/18/2013 ASSAY OF FREE THYROXINE CPT-4: 29720 11/18/2013 ASSAY THYROID STIM HORMONE CPT-4: 27403 11/18/2013 COMPREHEN METABOLIC PANEL CPT-4: 10121 11/18/2013 COMPLETE CBC W/AUTO DIFF WBC CPT-4: 47397 11/18/2013 LIPID PANEL CPT-4: 37387 11/18/2013 ASSAY OF PSA TOTAL CPT-4: 12544 11/18/2013 A1C HPLC CPT-4: 57479 11/18/2013 REMOVE FOREIGN BODY CPT-4: 00382 11/09/2013 OCCULT BLOOD FECES CPT-4: 10154 11/09/2013 THER/PROPH/DIAG INJ SC/IM CPT-4: 86040 11/24/2012 VITAMIN B12 INJECTION CPT-4: J3420 11/24/2012 COMPREHEN METABOLIC PANEL CPT-4: 82799 11/03/2012 COMPLETE CBC W/AUTO DIFF WBC CPT-4: 54623 11/03/2012 ASSAY THYROID STIM HORMONE CPT-4: 98559 11/03/2012 ASSAY OF BLOOD/URIC ACID CPT-4: 54920 11/03/2012 ROUTINE VENIPUNCTURE CPT-4: 81432 11/03/2012 ROUTINE VENIPUNCTURE CPT-4: 29726 02/25/2012 COMPREHEN METABOLIC PANEL CPT-4: 10791 02/25/2012 COMPLETE CBC W/AUTO DIFF WBC CPT-4: 45475 02/25/2012 HERPE1/2MG CPT-4: 38158|78840|62930 02/25/2012 THER/PROPH/DIAG INJ SC/IM CPT-4: 67420 09/24/2011 VITAMIN B12 INJECTION CPT-4: J3420 09/24/2011 CEFTRIAXONE SODIUM INJECTION CPT-4: J0696 09/24/2011 THER/PROPH/DIAG INJ SC/IM CPT-4: 85255 09/24/2011 ROUTINE VENIPUNCTURE CPT-4: 53463 09/17/2011 COMPREHEN METABOLIC PANEL CPT-4: 62025 09/17/2011 COMPLETE CBC W/AUTO DIFF WBC CPT-4: 22697 09/17/2011 LIPID PANEL CPT-4: 73723 09/17/2011 VITAMIN B 12 FOLIC ACID CPT-4: 31292|34428 09/17/2011 A1C GLYCOSYLATED HEMOGLOBIN TEST CPT-4: 69744 012 ROUTINE VENIPUNCTURE CPT-4: 24668 08/29/2010 COMPLETE CBC W/AUTO DIFF WBC CPT-4: 39419 08/29/2010 COMPREHEN METABOLIC PANEL CPT-4: 09720 08/29/2010 LIPID PANEL CPT-4: 70645 08/29/2010 ASSAY THYROID STIM HORMONE CPT-4: 36172 08/29/2010 ASSAY OF FREE THYROXINE CPT-4: 34366 08/29/2010 ASSAY OF PSA TOTAL CPT-4: 38270 08/29/2010 THER/PROPH/DIAG INJ SC/IM CPT-4: 15373 12/12/2009 VITAMIN B12 INJECTION CPT-4: J3420 12/12/2009 ROUTINE VENIPUNCTURE CPT-4: 26288 12/12/2009 ASSAY OF BLOOD/URIC ACID CPT-4: 63426 12/12/2009 THER/PROPH/DIAG INJ SC/IM CPT-4: 88647 10/30/2009 VITAMIN B12 INJECTION CPT-4: J3420 10/30/2009 THER/PROPH/DIAG INJ SC/IM CPT-4: 01079 10/01/2009 VITAMIN B12 INJECTION CPT-4: J3420 10/01/2009 THER/PROPH/DIAG INJ SC/IM CPT-4: 60673 10/01/2009 CEFTRIAXONE SODIUM INJECTION CPT-4: J0696 10/01/2009 [...] 97.3 (F) We ight: 149 lbs Code: 81041-8 10/19/2020 Blood Pressure 1: 121/87 Code: 8480-6 Heart Rate 1: 100 bpm Respiratory Rate: 16 bpm SpO2: 96% Temperature: 36.3 (C) / 97.3 (F) We ight: 149 lbs Code: 15191-9 10/01/2020 Blood Pressure 1: 140/84 Code: 8480-6 Heart Rate 1: 100 bpm Respiratory Rate: 18 bpm SpO2: 96% Temperature: 36.6 (C) / 97.9 (F) We ight: 147 lbs Code: 66857-9 09/24/2020 Blood Pressure 1: 112/70 Code: 8480-6 [...] 98.1 (F) We ight: 152 lbs Code: 42475-5 09/12/2020 Blood Pressure 1: 133/70 Code: 8480-6 Heart Rate 1: 100 bpm Respiratory Rate: 16 bpm SpO2: 100% Temperature: 36.5 (C) / 97.7 (F) We ight: 152 lbs Code: 35172-4 04/18/2020 Blood Pressure 1: 144/78 Code: 8480-6 Heart Rate 1: 80 bpm Respiratory Rate: 16 bpm SpO2: 98% Temperature: 36.4 (C) / 97.5 (F) We ight: 160 lbs Code: 30571-4 10/12/2019 Blood Pressure 1: 124/78 Code: 8480-6 BMI: 24.8 Code: 79105-6 Heart Rate 1: 76 bpm Height: 5'8" Code: 8302-2 Respiratory Rate: 20 bpm SpO2: 98% Temperature: 36.6 (C) / 97.9 (F) Weight: 163 lbs Code: 97182-4 04/25/2019 Blood Pressure 1: 140/86 Code: 8480-6 BMI: 24.3 Code: 66173-9 Heart Rate 1: 92 bpm Height: 5'8" Code: 8302-2 Respiratory Rate: 20 bpm SpO2: 98% Temperature: 36.8 (C) / 98.3 (F) Weight: 160 lbs Code: 82995-5 04/12/2019 Blood Pressure 1: 146/86 Code: 8480-6 BMI: 25.4 Code: 76620-4 Heart Rate 1: 88 bpm Height: 5'8" Code: 8302-2 Respiratory Rate: 20 bpm SpO2: 98% Temperature: 36.5 (C) / 97.7 (F) Weight: 167 lbs Code: 36501-5 02/17/2018 Blood Pressure 1: 114/62 Code: 8480-6 Bl ood Pressure 2: 116/70 Code: 8480-6 BMI: 24.9 Code: 94117-0 Heart Rate 1: 76 bpm Height: 5'8" Code: 8302-2 Respiratory Rate: 20 bpm SpO2: 97% Temperature: 36.7 (C) / 98.0 (F) We ight: 164 lbs Code: 96274-9 04/07/2017 Blood Pressure 1: 122/84 Code: 8480-6 BMI: 24.3 Code: 68070-8 Heart Rate 1: 72 bpm Height: 5'8" Code: 8302-2 Respiratory Rate: 20 bpm SpO2: 96% Temperature: 36.9 (C) / 98.4 (F) Weight: 160 lbs Code: 56542-2 09/19/2016 Blood Pressure 1: 124/76 Code: 8480-6 BMI: 24.6 Code: 23854-4 Heart Rate 1: 68 bpm Height: 5'8" Code: 8302-2 Respiratory Rate: 20 bpm SpO2: 96% Temperature: 36.6 (C) / 97.9 (F) Weight: 162 lbs Code: 08887-1 12/18/2015 Blood Pressure 1: 136/70 Code: 8480-6 BMI: 24.3 Code: 19770-2 Heart Rate 1: 84 bpm Height: 5'8" Code: 8302-2 Respiratory Rate: 20 bpm Temperatu re: 36.5 (C) / 97.7 (F) Weight: 160 lbs Code: 11583-8 07/20/2015 Blood Pressure 1: 140/84 Code: 8480-6 BMI: 24.9 Code: 46461-7 Heart Rate 1: 76 bpm Height: 5'8" Code: 8302-2 Respiratory Rate: 20 bpm Temperatu re: 36.6 (C) / 97.9 (F) Weight: 164 lbs Code: 55560-2 02/07/2015 Blood Pressure 1: 164/82 Code: 8480-6 BMI: 25.5 Code: 04091-3 Heart Rate 1: 78 bpm Height: 5'8" Code: 8302-2 Respiratory Rate: 20 bpm Temperatu re: 36.5 (C) / 97.7 (F) Weight: 168 lbs Code: 61142-6 07/19/2014 Blood Pressure 1: 136/94 Code: 8480-6 BMI: 24.8 Code: 47957-6 Heart Rate 1: 88 bpm Height: 5'8" Code: 8302-2 Respiratory Rate: 20 bpm Temperatu re: 36.8 (C) / 98.2 (F) Weight: 163 lbs Code: 34249-7 07/06/2014 Blood Pressure 1: 136/92 Code: 8480-6 BMI: 24.2 Code: 70840-9 Heart Rate 1: 88 bpm Height: 5'8" Code: 8302-2 Respiratory Rate: 20 bpm Temperatu re: 36.9 (C) / 98.4 (F) Weight: 159 lbs Code: 34750-7 07/04/2014 Blood Pressure 1: 116/84 Code: 8480-6 Bl ood Pressure 2: 108/82 Code: 8480-6 Heart Rate 1: 88 bpm Respiratory Rate: 20 bpm Temperature: 3 6.7 (C) / 98.0 (F) Weight: 159 lbs Code: 95018-0 06/14/2014 Blood Pressure 1: 132/90 Code: 8480-6 BMI: 24.6 Code: 98939-0 Heart Rate 1: 100 bpm Height: 5'8" Code: 8302-2 Respiratory Rate: 20 bpm Temperatu re: 37.2 (C) / 99.0 (F) Weight: 162 lbs Code: 95756-5 03/09/2014 Blood Pressure 1: 122/62 Code: 8480-6 BMI: 25.4 Code: 16274-3 Heart Rate 1: 84 bpm Height: 5'8" Code: 8302-2 Respiratory Rate: 20 bpm Temperatu re: 36.6 (C) / 97.8 (F) Weight: 167 lbs Code: 90686-1 01/05/2014 Blood Pressure 1: 124/82 Code: 8480-6 BMI: 25.4 Code: 38378-6 Heart Rate 1: 84 bpm Height: 5'8" Code: 8302-2 Respiratory Rate: 20 bpm Temperatu re: 36.7 (C) / 98.0 (F) Weight: 167 lbs Code: 64904-7 11/09/2013 Blood Pressure 1: 138/82 Code: 8480-6 BMI: 24.5 Code: 01615-0 Heart Rate 1: 84 bpm Height: 5'8" Code: 8302-2 Respiratory Rate: 20 bpm Temperatu re: 37.1 (C) / 98.8 (F) Weight: 161 lbs Code: 63170-8 11/24/2012 Blood Pressure 1: 122/72 Code: 8480-6 BMI: 24.0 Code: 93194-5 Heart Rate 1: 66 bpm Height: 5'8" Code: 8302-2 Respiratory Rate: 20 bpm Temperatu re: 36.5 (C) / 97.7 (F) Weight: 158 lbs Code: 43475-5 11/03/2012 Blood Pressure 1: 130/84 Code: 8480-6 BMI: 23.7 Code: 50327-1 Heart Rate 1: 72 bpm Height: 5'8" Code: 8302-2 Respiratory Rate: 20 bpm Temperatu re: 36.2 (C) / 97.1 (F) Weight: 156 lbs Code: 29897-2 02/25/2012 Blood Pressure 1: 142/84 Code: 8480-6 BMI: 25.1 Code: 81416-3 Heart Rate 1: 68 bpm Height: 5'8" Code: 8302-2 Temperature: 37.2 (C) / 99.0 (F) Weight: 165 lbs Code: 76770-5 10/08/2011 Blood Pressure 1: 126/80 Code: 8480-6 BMI: 24.3 Code: 94697-3 Heart Rate 1: 84 bpm Height: 5'8" Code: 8302-2 Respiratory Rate: 20 bpm Temperatu re: 36.8 (C) / 98.2 (F) Weight: 160 lbs Code: 85149-9 09/24/2011 Blood Pressure 1: 136/80 Code: 8480-6 BMI: 24.3 Code: 75410-1 Heart Rate 1: 84 bpm Height: 5'8" Code: 8302-2 Respiratory Rate: 20 bpm Temperatu re: 36.8 (C) / 98.2 (F) Weight: 160 lbs Code: 21315-4 09/17/2011 Blood Pressure 1: 128/84 Cod e: 8480-6 09/09/2011 Blood Pressure 1: 142/84 Code: 8480-6 BMI: 24.3 Code: 47901-5 Height: 5'8" Code: 8302-2 Temperature: 36.7 (C) / 98.0 (F) Weight: 160 lbs Code : 82506-2 08/29/2010 Blood Pressure 1: 144/84 Code: 8480-6 Heart Rate 1: 72 bpm Temperature: 36.8 (C) / 98.2 (F) Weight: 156 lbs Code: 00271-9 12/12/2009 Blood Pressure 1: 146/88 Code: 8480-6 Heart Rate 1: 76 bpm Temperature: 36.6 (C) / 97.9 (F) Weight: 152 lbs Code: 99838-2 10/30/2009 Blood Pressure 1: 132/70 Code: 8480-6 Heart Rate 1: 80 bpm Temperature: 36.9 (C) / 98.4 (F) Weight: 151 lbs Code: 24302-5 10/01/2009 Blood Pressure 1: 142/86 Code: 8480-6 BMI: 23.0 Code: 62351-2 Heart Rate 1: 84 bpm Height: 5'8" Code: 8302-2 Temperature: 36.9 (C) / 98.4 (F) Weight: 151 lbs Code: 84756-3 Functional Status No Functional Status data Reason [...] follow up 04/25/2019 follow up 04/12/2019 from [facility] well man exam (40-65 years) 02/17/2018 [...] 10/01/2009 establishing vis it, being treated for [place] Spotted Fever Encounters Encounter Performer Location Codes Date () OFFICE/OUTPATIENT VISIT EST Diagnosis: Pulmonary nodules[ICD10: R91.8] Diagnosis: Supraclavicular adenopathy[ICD10: R59.0] Diagnosis: Thrombocytopenia[ICD10: D69.6] Estephanie Dyan GALARZA S . [facility] CPT-4: 55569 10/26/2020 ([id number]) OFFICE/OUTPATIENT VISIT EST Diagnosis: Mass of left lung[ICD10: R91.8] Diagnosis: Supraclavicular adenopathy[ICD10: R59.0] Diagnosis: On anticoagulant therapy[ICD10: Z79.01] Diagnosis: Other acute pulmonary embolism without acute cor pulmonale[ICD10: I26.99] Diagnosis: Lymphadenopathy[ICD10: R59.1] Diagnosis: Thrombocytopenia[ICD10: D69.6] Diagnosis: Pericardial effusion[ICD10: I31.3] [facility]stephan[facility] CPT-[facility]: 87133 10/22/2020 ([id number]) OFFICE/OUTPATIENT VISIT EST Diagnosis: Supraclavicular adenopathy[ICD10: R59.0] Diagnosis: Difficulty swallowing[ICD10: R13.10] Estephanie Dyan [facility] [employer] [facility] CPT-4: 87373 10/19/2020 ([id number]) OFFICE/OUTPATIENT VISIT EST Diagnosis: On anticoagulant therapy[ICD10: Z79.01] Diagnosis: Acute deep vein thrombosis (DVT) of femoral vein of right lower extremity[ICD10: I82.411] Estephanie Dyan [facility] CPT-4 : 40166 10/01/2020 ([id number]) OFFICE/OUTPATIENT VISIT EST Diagnosis: Right leg DVT[ICD10: I82.401] Tracie [facility] CPT-4: 19702 09/24/2020 ([id number]) OFFICE/OUTPATIENT VISIT EST Diagnosis: Acute deep vein thrombosis (DVT) of femoral vein of right lower extremity[ICD10: I82.411] Diagnosis: On anticoagulant therapy[ICD10: Z79.01] Estephanie Dyan [facility] CPT-4: 97115 09/17/2020 ([id number]) OFFICE/OUTPATIENT VISIT EST Diagnosis: Acute deep vein thrombosis (DVT) of femoral vein of right lower extremity[ICD10: I82.411] Estephanie OconnorClark [facility] CPT-4 : 44435 09/14/2020 ([id number]) OFFICE/OUTPATIENT VISIT EST Diagnosis: Fall down stairs, initial encounter[ICD10: W10.8XXA] Diagnosis: Right leg swelling[ICD10: M79.89] Diagnosis: Right leg pain[ICD10: M79.604] Estephanie Oconnor Clark [facility] CPT-4: 71972 09/12/2020 ([id number]) OFFICE/OUTPATIENT VISIT EST Diagnosis: Hypertension[ICD10: I10] Diagnosis: Hyperglycemia, unspecified[ICD10: R73.9] Diagnosis: Mixed hyperlipidemia[ICD10: E78.2] Tracie MOHAN ElvinClark TH[facility]AGO [employer] [facility] CPT-4: 22252 04/18/2020 ([id number]) OFFICE/OUTPATIENT VISIT EST 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] Diagnosis: Cat scratch[ICD10: W55.03XA] Diagnosis: Hypertension[ICD10: I10] Diagnosis: Pulmonary nodules[ICD10: R91.8] Tracie Nkihilwaleska GALARZA [employer] [employer] [facility] CPT-4: 71124 04/25/2019 ([id number]) OFFICE/OUTPATIENT VISIT EST 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] Diagnosis: Dysphagia[ICD10: R13.10] Tracie GALARZA ElvinClark HOOD CHARLENE [employer] [facility] CPT-4: 88200 04/12/2019 ([id number]) PER PM REEVAL EST PAT 65+ YR Diagnosis: Encounter for general adult medical examination without abnormal findings[ICD10: Z00.00] Diagnosis: Essential (primary) hypertension[ICD10: I10] Diagnosis: Hyperglycemia, unspecified[ICD10: R73.9] Tracie GALARZA ElvinClark [facility]AGO [employer] [facility] CPT-4: 43760 02/17/2018 ([id number]) NURSE/OUTPATIENT VISIT EST Diagnosis: Essential (primary) hypertension[ICD10: I10] Diagnosis: Mixed hyperlipidemia[ICD10: E78.2] Diagnosis: Hyperglycemia, unspecified[ICD10: R73.9] Diagnosis: Encounter for screening for other viral diseases[ICD10: Z11.59] Tracie Howard [facility]IL[facility] [employer] CPT-4: 62586 01/29/2018 ([id number]) OFFICE/OUTPATIENT VISIT EST Diagnosis: Encounter for general adult medical examination without abnormal findings[ICD10: Z00.00] Diagnosis: Mixed hyperlipidemia[ICD10: E78.2] Diagnosis: Essential (primary) hypertension[ICD10: I10] Diagnosis: Impaired fasting glucose[ICD10: R73.01] Diagnosis: Encounter for screening for malignant neoplasm of prostate[ICD10: Z12.5] Tracie Howard [facility] [employer] CPT-4: 50901 05/01/2017 ([id number]) OFFICE/OUTPATIENT VISIT EST Diagnosis: URI, ACUTE[ICD10: J06.9] Tracie CHANG [employer] CPT-4: 37828 04/07/2017 OFFICE/OUTPATIENT VISIT EST Diagnosis: Essential (primary) hypertension[ICD10: I10] Ashley Howard [facility] [employer] CPT-4: 06151 09/19/2016 ([id number]) OFFICE/OUTPATIENT VISIT EST Diagnosis: Encounter for general adult medical examination without abnormal findings[ICD10: Z00.00] Diagnosis: Essential (primary) hypertension[ICD10: I10] Diagnosis: Impaired fasting glucose[ICD10: R73.01] Tracie Howard NI[facility]ILWAL[facility] [employer] CPT-4: 14182 01/04/2016 ([id number]) OFFICE/OUTPATIENT VISIT EST Diagnosis: Essential (primary) hypertension[ICD10: I10] Diagnosis: Mixed hyperlipidemia[ICD10: E78.2] Diagnosis: Impaired fasting glucose[ICD10: R73.01] Tracie Howard NI[facility] [employer] CPT-4: 87404 12/18/2015 ([id number]) PREV VISIT EST AGE 40-64 Diagnosis: Encounter for general adult medical examination without abnormal findings[ICD10: Z00.00] Diagnosis: Essential (primary) hypertension[ICD10: I10] Ahsley [facility] CPT-4: 13020 07/20/2015 OFFICE/OUTPATIENT VISIT EST Diagnosis: Mixed hyperlipidemia[ICD10: E78.2] Diagnosis: Impaired fasting glucose[ICD10: R73.01] Diagnosis: Insomnia, unspecified[ICD10: G47.00] Jacque MongeSharonjorge luis DURAN KAMALJIT Lee [facility] CPT-4: 39272 02/07/2015 ([id number]) OFFICE/OUTPATIENT VISIT EST Diagnosis: Encounter for general adult medical examination without abnormal findings[ICD10: Z00.00] Diagnosis: Essential (primary) hypertension[ICD10: I10] Diagnosis: Mixed hyperlipidemia[ICD10: E78.2] Tracie MOHAN Lee [facility] CPT-4: 08833 02/02/2015 ([id number]) OFFICE/OUTPATIENT VISIT EST Diagnosis: SINUSITIS, ACUTE[ICD9: 461.9] Jacque MongeSharonjorge luis TRACIE [facility] CPT-4: 01424 07/19/2014 ([id number]) OFFICE/OUTPATIENT VISIT EST Diagnosis: Hypotension[ICD9: 458.9] Diagnosis: DYSPEPSIA[ICD9: 536.8] Diagnosis: HYPERTENSION[ICD9: 401.9] Tracie GALARZA ElvinClark [facility] CPT-4: 21648 07/06/2014 ([id number]) OFFICE/OUTPATIENT VISIT EST Diagnosis: DIZZINESS/VERTIGO[ICD9: 780.4] Diagnosis: HYPOTENSION[ICD9: 458.9] Diagnosis: MALAISE AND FATIGUE[ICD9: 780.79] Tracie Murillo [facility] CPT-4: 77150 07/04/2014 ([id number]) OFFICE/OUTPATIENT VISIT EST Diagnosis: ARTHRALGIA-MULTIPLE SITES[ICD9: 719.49] Diagnosis: CEPHALGIA[ICD9: 784.0] Diagnosis: Uveitis[ICD9: 364.3] Tracie GALARZA ElvinClark [facility] CPT-4: 89011 06/14/2014 ([id number]) OFFICE/OUTPATIENT VISIT EST Diagnosis: HYPERTENSION[ICD9: 401.9] Diagnosis: OTHER ABNORMAL GLUCOSE[ICD9: 790.29] Tracie KEYES DO [facility] CPT-4: 26385 03/09/2014 ([id number]) OFFICE/OUTPATIENT VISIT EST Diagnosis: OTHER ABNORMAL GLUCOSE[ICD9: 790.29] Tracie KEYES DO [facility] CPT-4: 58297 01/05/2014 ([id number]) OFFICE/OUTPATIENT VISIT EST Diagnosis: ROUTINE MEDICAL EXAM[ICD9: V70.0] Tracie KEYES [facility] CPT-4: 03999 11/18/2013 ([id number]) PREV VISIT EST AGE 40-64 Diagnosis: ROUTINE MEDICAL EXAM[ICD9: V70.0] Diagnosis: HYPERLIPIDEMIA NEC/NOS[ICD9: 272.4] Diagnosis: FOREIGN BODY FINGER[ICD9: 915.6] Tracie KEYES [facility] CPT-4: 27786 11/09/2013 ([id number]) OFFICE/OUTPATIENT VISIT EST Diagnosis: CERVICALGIA[ICD9: 723.1] Diagnosis: B12 DEFIC ANEMIA NEC[ICD9: 281.1] Diagnosis: DISTURBANCE OF SKIN SENSATION (Paresthesia)[ICD9: 782.0] Tracie KEYES [facility] CPT-4: 35475 11/24/2012 OFFICE/OUTPATIENT VISIT EST Diagnosis: Neck pain on left side[ICD9: 723.1] Diagnosis: Tendonitis of elbow, left[ICD9: 727.09] Jacque Lopez TRACIE KEYES [facility] CPT-4: 30895 11/03/2012 OFFICE/OUTPATIENT VISIT EST Diagnosis: Oral lesion[ICD9: 528.9] Diagnosis: Herpes zoster[ICD9: 053.9] Diagnosis: FEBRILE ILLNESS[ICD9: 780.60] Liz Randall TRACIE KEYES [facility] CPT-4: 32582 02/25/2012 OFFICE/OUTPATIENT VISIT EST Diagnosis: MALAISE AND FATIGUE[ICD9: 780.79] Diagnosis: B12 DEFIC ANEMIA NEC[ICD9: 281.1] Diagnosis: SPOTTED FEVERS[ICD9: 082.0] Diagnosis: SPASM OF MUSCLE[ICD9: 728.85] Tracie OBRIENER DO [facility] CPT-4: 58656 10/08/2011 ([id number]) OFFICE/OUTPATIENT VISIT EST Diagnosis: MALAISE AND FATIGUE[ICD9: 780.79] Diagnosis: SPOTTED FEVERS[ICD9: 082.0] Diagnosis: B12 DEFIC ANEMIA NEC[ICD9: 281.1] Tracie CALVONDER DO [facility] CPT-4: 77355 09/24/2011 ([id number]) OFFICE/OUTPATIENT VISIT EST Diagnosis: B12 DEFIC ANEMIA NEC[ICD9: 281.1] Diagnosis: HYPERTENSION[ICD9: 401.9] Diagnosis: MALAISE AND FATIGUE[ICD9: 780.79] Diagnosis: OTHER ABNORMAL GLUCOSE[ICD9: 790.29] Tracie CALVONDER DO [facility] CPT-4: 30146 09/17/2011 OFFICE/OUTPATIENT VISIT EST Diagnosis: NONVENOM ARTHROPOD BITE[ICD9: E906.4] Diagnosis: HYPERTENSION[ICD9: 401.9] Tracie CALVO NDER DO [facility] CPT-4: 16897 09/09/2011 PREV VISIT EST AGE 40-64 Tracie WELCH R DO [facility] CPT-4: 67741 08/29/2010 ([id number]) OFFICE/OUTPATIENT VISIT, EST Tracie CHAVEZ SClark CALVONDER DO [facility] CPT-4: 44204 12/12/2009 ([id number]) OFFICE/OUTPATIENT VISIT, EST Tracie CHAVEZ S. ORENDER DO [facility] CPT-4: 68959 10/30/2009 ([id number]) OFFICE/OUTPATIENT VISIT, NEW Tracie CHAVEZ SClark ORENDER DO [facility] CPT-4: 57358 10/01/2009 Plan of Care Planned Activity Notes Codes Status Date Visit Diagnosis Plan: Pulmonary nodules Discussion: PE T scan results not available at time of visit- request sent to [facility]. Will call patient with results. Discussed probable [...] 10/22/2020 Appointment: Estephanie Zaidi WPtel: [phone] [facility] US FOLLOW UP 10/22/2020 Patient Education: Patient Medication Summary Completed 10/22/2020 Care Plan: CT SOFT TISSUE NECK W/O DYE L OINC : 02973-8 Pending 10/22/2020 Visit Diagnosis Plan: Supraclavicular adenopathy Discu ssion: Will send for stat CT neck chest with contrast and labs at [facility] ICD-9 : 785.6 ICD-10 : R59.0 10/19/2020 App[facility]ment: [facility] [phone] [facility] [facility] 10/19/2020 Patient Education: Patient [...] 10/01/2020 Appointment: [facility]idi [facility] [phone] [facility] [facility] 10/01/2020 Patient Education: Patient Medication Summary Completed 10/01/2020 Visit Diagnosis Plan: Right leg DVT Discussion: Contin ue eliquis at 5mg po BID Recheck 1 week Discussed repeating US of RLE at 3mos and staying on eliquis until then Discussed clotting studies after off eliquis for 1month in future ICD-9 : 453.40 ICD-10 : I82.401 09/24/2020 Appointment: Tracie Keyes WPtel: [phone] [facility] FOLLOW UP 09/24/2020 Visit Diagnosis Plan: [...] extremity Discussion: Swelling decreasing. F/U 1 w [place] for recheck. ICD-9 : 453.41 ICD-10 : I82.411 09/17/2020 Appointment: Estephanie Zaidi WPtel: [phone] [facility] FOLLOW UP 09/17/2020 Patient Education: Patient Medication Summary Completed 09/17/2020 Patient Education: Eliquis- [employer] [id number] https://www.[employer]/resources/getResource/61/[email or web address] Completed 09/17/2020 Patient Education: tramadol- [employer] C[employer]on [id number] https://www.[employer]/resources/getResource/61/[email or web address] Completed 09/17/2020 Visit Diagnosis Plan: Acute deep [...] I82.411 09/14/2020 Appointment: Estephanie Zaidi WPtel: [phone] [facility] FOLLOW UP 09/14/2020 Patient Education: Patient Medication Summary Completed 09/14/2020 Visit Diagnosis Plan: Right leg swelling Discussion: W ill send to [facility] now for stat doppler to r/o DVT d/t swelling and pain and f/u with results. ICD-9 : 729.81 ICD-10 : M79.89 09/12/2020 Appointment: Estephanie Zaidi WPtel: [phone] [facility] ACUTE ILLNESS 09/12/2020 Patient Education: Patient [...] : R73.9 04/18/2020 Appointment: Tracie Keyes WPtel: [address] [place], [place] [phone] FOLLOW UP 04/18/2020 Patient Education: lisinopril- [employer] Coupon [id number] https://www.[employer]md/resources/getResource/61/[email or web address] Completed 04/18/2020 Visit Diagnosis Plan: Essential (primary) hypertension Discussion: Stable on lisinopril ICD-9 : 401.9 ICD-10 : I10 10/12/2019 Visit Diagnosis Plan: Encounter for [facility] adult medical examination without abnormal findings Discussion: Mediterranean diet Combinati on of cardio and weight bearing exercise Will return for fasting lab next week ICD-9 : V70.0 ICD-10 : Z00.00 10/12/2019 Visit Diagnosis Plan: Hyperglycemia, unspecified Discu ssion: Will return for HbA1C next week ICD-9 : 790.29 ICD-10 : R73.9 10/12/2019 Appointment: Tracie Keyes WPtel: [address] [place], [place] [phone] INSIDE Annual Well Visit 10/12/2019 Appointment: Viridiana Lima [address] FOLLOW UP 05/16/2019 Visit Diagnosis Plan: [...] : W55.03XA 04/25/2019 Appointment: Tracie Keyes WPtel: [address] [place], [place] [phone] Hospital Follow Up 04/25/2019 Patient Education: nystatin- [employer] Coupon [id number] https://www.[employer]md/resources/getResource/61/[email or web address] Completed 04/25/2019 Visit Diagnosis Plan: Submandibular gland [...] : K11.1 04/12/2019 Appointment: Tracie Keyes WPtel: [address] [place], [place] [phone] 04/12/2019 Appointment: Tracie Keyes WPtel: [address] [place] [address] LM CANCELED 08/09/2018 Visit Diagnosis Plan: Essential (primary) hypertension Discussion: Stable ICD-9 : 401.9 ICD-10 : I10 02/17/2018 Visit Diagnosis Plan: Encounter for [facility] adult medical examination without abnormal findings Discussion: Lab discussed Refuses prosta te check Refuses colonoscopy Will check with pharmacy on Shingrix/Flu shot and Prevnar ICD-9 : V70.0 ICD-10 : Z00.00 02/17/2018 Visit Diagnosis Plan: Hyperglycemia, unspecified Discu ssion: Wants to focus on diet/exercise and recheck in 6mos ICD-9 : 790.29 ICD-10 : R73.9 02/17/2018 Appointment: Tracie Keyes WPtel: [address] [place] [address] Annual Well Visit 02/17/2018 Appointment: Tracie Keyes WPtel: [address] [place], [place] [phone] US LAB 01/29/2018 Appointment: Tracie Keyes WPtel: [address] [place], [place] [phone] US LAB 05/01/2017 Patient Education: Patient Medication [...] Rest, Fluids... 04/07/2017 Appointment: Tracie Keyes WPtel: [address] [place] [address] ACUTE ILLNESS 04/07/2017 Patient Education: Patient Medication Summary Completed 04/07/2017 Visit Plan: Had meds refilled for 6 joseph hs the other day. RTC 6 months Described s/s of heart disease that he would need to report for to us or ER/UC. 09/19/2016 Appointment: Ashley [facility]ren[facility]el[facility] [phone] [facility] 09/18 lm`sl FOLLOW UP 09/19/2016 Patient Education: Patient Medication Summary Completed 09/19/2016 Appointment: Tracie Keyes WPtel: [phone] [place], [place] [id number] US LAB 01/04/2016 Patient Education: Patient Medication Summary Completed 01/04/2016 Visit Plan: Will get flu shot at work Up date fasting lab 12/18/2015 Appointment: Tracie Keyes WPtel: [phone] [place], [place] [phone] 12/16 lm~sl FOLLOW UP 12/18/2015 Patient Education: Patient Medication Summary Completed 12/18/2015 Visit Plan: Pt declined rectal/prostate exam. Encouraged to get colonoscopy Plan labs for fall 2015 Continue on current meds but send in home B/P since today's B/P is elevated to see if dosage change is indicated. RTC in 6 months 07/20/2015 Appointment: Ashley Crenshaw WPtel: [phone] [place] [phone] 07/18 lm ~sl Annual Well Visit 07/20/2015 Patient Education: Patient Medication Summary Completed 07/20/2015 Visit Plan: Resume BP med Resume Metform in( has been off > 9 months) Add HgbA1C to labs drawn last week, Trial of Selinor for sleep. Will let us know how he does with it. 02/07/2015 Appointment: Jacque Lopez [facility]Ptel[facility] [phone] [facility] 02/06/15 vm cn....appt confirmed cn FOLLOW UP 02/07/2015 Patient Education: Patient Medication Summary Completed 02/07/2015 Patient Education: [facility] - Saving AutoInj - Lisinopril - 18-64 - Dynamic Portal ID Completed 02/07/2015 Appointment: Tracie Keyes WPtel: [address] [place] [address] LAB 02/02/2015 Patient Education: Patient Medication Summary Completed 02/02/2015 Appointment: Jacque Lopez WPtel: [address] [place] [address] ACUTE ILLNESS 07/19/2014 Patient Education: Patient Medication Summary Completed 07/19/2014 Visit Plan: Restart Diltiazem Continue t o hydrate Call in 3 days on how doing 07/06/2014 Appointment: Tracie Keyes WPtel: [address] [place] [address] 07/05 appt confirmed cn FOLLOW UP 07/07/19 Patient Education: Patient Medication Summary Completed 07/06/2014 Visit Plan: Hold lisinopril hct Hydrate Recheck 2 days Meclizine 25mg q HS Hold metformin Call in AM 07/04/2014 Appointment: Tracie Keyes WPtel: [address] [place] [address] FOLLOW UP 07/04/2014 Patient Education: Patient Medication Summary Completed 07/04/2014 Appointment: Tracie Keyes WPtel: [address] [place] [address] ACUTE ILLNESS 06/14/2014 Patient Education: Patient Medication Summary Completed 06/14/2014 Appointment: Tracie Keyes WPtel: [address] [place] [address] FOLLOW UP 03/09/2014 Patient Education: Patient Medication Summary Completed 03/09/2014 Visit Plan: Continue metformin at curren t dose Accuchecks daily alternating times Diabetic diet info given Check CMP with HbA1C in 2mos then fwup 01/05/2014 Appointment: Tracie Keyes WPtel: [address] [place], [place] [phone] FOLLOW UP 01/05/2014 Patient Education: Patient Medication Summary Completed 01/05/2014 Visit Plan: Did not need lab so will jus t fwup as scheduled 01/03/2014 Appointment: Tracie Keyes WPtel: [address] [place], [place] [phone] [place] LAB 01/03/2014 Patient Education: Patient Medication Summary Completed 01/03/2014 Appointment: Tracie Keyes WPtel: [address] [place], [place] [phone] [place] LAB 11/18/2013 Patient Education: Patient Medication Summary Completed 11/18/2013 Visit Plan: Continue current meds Remova l of splinter as above Keflex for 1 week Continue current meds Fwup next week for fasting lab including PSA 11/09/2013 Appointment: Tracie Keyes WPtel: [address] [place], [place] [phone] 11/08 Annual Well Visit 11/09/2013 Patient Education: Patient Medication Summary Completed 11/09/2013 Patient Education: [facility] - Saving AutoInj - Lisinopril - 18+ - Dynamic Portal ID Completed 11/09/2013 Appointment: Tracie Keyes WPtel: [address] [place], [place] [phone] 11/23 left message FOLLOW UP 11/24/2012 Patient Education: Patient Medication Summary Completed 11/24/2012 Appointment: Jacque Lopez WPtel: [address] [place], [place] [phone] FOLLOW UP 11/10/2012 Appointment: Jacque Lopez WPtel: [address] [place], [place] [phone] ACUTE ILLNESS 11/03/2012 Patient Education: Patient Medication Summary Completed 11/03/2012 Appointment: Liz Randall WPtel: [address] [place], [place] [phone] ACUTE ILLNESS 02/25/2012 Patient Education: Patient Medication Summary Completed 02/25/2012 Visit Plan: Finish abx Continue B12 OMT done Add Skelaxin 800mg q HS 10/08/2011 Appointment: Tracie Keyes WPtel: [address] [place], [place] [phone] voicemail FOLLOW UP 10/08/2011 Patient Education: Patient Medication Summary Completed 10/08/2011 Appointment: Tracie Keyes WPtel: [address] [place], [place] [phone] FOLLOW UP 09/24/2011 Patient Education: Patient Medication Summary Completed 09/24/2011 Appointment: Tracie Keyes WPtel: [address] [place], [place] [phone] LAB 09/17/2011 Patient Education: Patient Medication Summary [...] fasting labs. 09/09/2011 Appointment: Liz Randall WPtel: [address] [place], [place] [phone] ACUTE ILLNESS 09/09/2011 Patient Education: Patient Medication Summary Completed 09/09/2011 Visit Plan: Change lisinopril hct to 20/ 12.5mg 2 daily and continue cardizem Check fasting lab--drawn today 08/29/2010 Appointment: Tracie Keyes WPtel: [address] [place], [place] [phone] FOLLOW UP 08/29/2010 Patient Education: Patient Medication Summary Completed 08/29/2010 Appointment: Tracie Keyes WPtel: [address] [place], [place] [phone] [place] FOLLOW UP 12/12/2009 Patient Education: Patient Medication Summary Completed 12/12/2009 Appointment: Tracie Keyes WPtel: [address] [place], [place] [id number] [place] FOLLOW UP 11/27/2009 Visit Plan: Finish Abx B12 given Start d aily 1000mcg B12 Cont allopurinol and check B12 and uric acid in 1mo. 10/30/2009 App[facility]ment: [facility] [phone] [id number] [facility] 10/30/2009 Patient Education: Patient Medication Summary Completed 10/30/2009 [facility]ment: [facility] [phone] [id number] [place] NEW PATIENT 10/01/2009 Patient Education: Patient Medication Summary Completed 10/01/2009 Referral: Sav Olivo WPtel: [phone] [facility] [place] Referral Initiated Instructions Comment . Discussed [...]
--- OUTSIDE RECORDS SUMMARY | 2020-11-05 09:33 | XMS REPORT | CCD ---
Author Author Josh Keyes D.O. Organization [facility] Address [address] [place] [address] Phone Care Team Providers Care Personalized Living Manager Name Role Phone Tracie Keyes D.O., PP Unavailable CCM Unavailable Summary Purpose Interface Exchange Insurance Providers Payer name Policy type / Coverage type Covered green party ID Effective Begin Date Effective End Date WPS MEDICARE PART B [place] Medicare Part B [id number] Unknown [facility] Medicare Part B [id number] 2019 Un known Family history Sister Diagnosis Age At Onset seizure disorder Unknown Father Diagnosis Age At Onset Diabetes mellitus Type 2 Unknown Mother Diagnosis Age At Onset Diabetes mellitus Type 2 Unknown Social History Social History Element Codes Description Effective Dates Tobacco history SNOMED CT: 63751093 Currently smokes tobacco Marital status Unknown 10/01/2009 [...] E906.4 09/09/2011 Active Hypertension Unknown 10/01/2009 Active [place] spotted fever Unknown 07/24/2009 Act [place] B12 DEFIC ANEMIA NEC ICD-9: 281.1 10/01/2009 Active Hyperuricemia ICD-9: 790.6 10/01/2009 Active Myalgia ICD-9: 729.1 10/01/2009 Active [place] spotted fever ICD-9: 082.0 10/01/2009 Act [place] Medications Medication Codes Instructions Start Date Stop Date Status Fill Instructions Eliquis 5 mg tablet RxNorm: 8807065 Take 1 Tablet(s) Oral two ti mes a day 09/19/2020 12/17/2020 Active tramadol 50 mg tablet RxNorm: 850589 Take 1 Tablet(s) O ral Q8H as needed for pain Take with 2 tylenol 09/17/2020 No Stop Date Active Eliquis 5 mg tablet RxNorm: 3962397 Take 2 Tablet(s) Oral two ti mes a day 09/17/2020 No Stop Date Active lisinopril 40 mg tablet RxNorm: 643828 1 Tablet(s) Oral QD repl aces 20mg dose 04/18/2020 10/15/2020 Inactive Men's Multivitamin 400 mcg-20 mcg-300 mcg tablet RxNorm: 1 Tablet(s) Oral QD 04/18/2020 No Stop Date Active lisinopril 20 mg tablet RxNorm: 105887 1 Tablet(s) Oral QD 03/29/19 21 04/17/2020 Inactive Due for his 6 month appointm ent lisinopril 20 mg tablet RxNorm: 265648 TAKE ONE (1) TAB LET BY MOUTH DAILY... Needs fwup 10/03/2019 11/02/2019 Inactive lisinopril 20 mg tablet RxNorm: 962125 TAKE ONE (1) TABLET BY M OUTH DAILY... 10/03/2019 10/02/2019 Inactive Zithromax 500 mg tablet RxNorm: 258409 1 Tablet(s) Oral QD 04/25/19 20 05/02/2019 Inactive [AttnRPh: Saving apply/adjud icate RxGRP:SG20 RxBIN:[id number] RxPCN: ID#:[id number]] lisinopril 20 mg tablet RxNorm: 755313 1 Tablet(s) Oral QD 04/25/19 20 10/02/2019 Inactive nystatin 100,000 unit/mL oral suspension RxNorm: 479951 5 Milliliter(s) Oral four times a day swish, gargle and spit 04/25/2019 05/09/2019 Inactive diltiazem ER (XR/XT) 120 mg capsule,extended release 2 4 hr, controlled RxNorm: 430326 Capsule(s) 1 Capsule(s) PO QD 06/10/2018 10/11/2019 Inactive [SAVINGS FOR UNINSURED PATIENTS -- BIN:984608, PCN: ASPROD1, Group: AME08, ID# [id number], Process claim through MedIm0um0uact, for questions: . THIS IS NOT INSURANCE.] lisinopril 20 mg-hydrochlorothiazide 12.5 mg tablet RxNorm: 240644 1 Tablet(s) PO QAM 06/10/2018 10/11/2019 Inactive [AttnRPh: Saving apply/adjudicate RxGRP:SG20 RxBIN:[id number] RxPCN: ID#:[id number]] lisinopril 20 mg-hydrochlorothiazide 12.5 mg tablet RxNorm: 332813 1 Tablet(s) PO QAM 05/06/2017 01/30/2018 Inactive [AttnRPh: Saving apply/adjudicate RxGRP:SG20 RxBIN:[id number] RxPCN: ID#:[id number]] diltiazem ER (XR/XT) 120 mg capsule,extended release 2 4 hr, controlled RxNorm: 320476 Capsule(s) 1 Capsule(s) PO QD 05/06/2017 01/30/2018 Inactive [SAVINGS FOR UNINSURED PATIENTS -- BIN:976565, PCN: ASPROD1, Group: AME08, ID# [id number], Process claim through MedImpact, for questions: . THIS IS NOT INSURANCE.] diltiazem ER (XR/XT) 120 mg capsule,extended release 2 4 hr, controlled RxNorm: 988423 Capsule(s) 1 Capsule(s) PO QD 09/16/2016 03/14/2017 Inactive [SAVINGS FOR UNINSURED PATIENTS -- BIN:412844, PCN: ASPROD1, Group: AME08, ID# [id number], Process claim through MedImpact, for questions: . THIS IS NOT INSURANCE.] lisinopril 20 mg-hydrochlorothiazide 12.5 mg tablet RxNorm: 125535 1 Tablet(s) PO QAM 09/16/2016 03/14/2017 Inactive [AttnRPh: Saving apply/adjudicate RxGRP:SG20 RxBIN:[id number] RxPCN: ID#:[id number]] diltiazem ER (XR/XT) 120 mg capsule,extended release,control led RxNorm: 204859 1 Capsule(s) PO QD 04/09/2016 10/11/2019 Inactive [SAVINGS FOR UN INSURED PATIENTS -- BIN:673211, PCN: ASPROD1, Group: AME08, ID# [id number], Process claim through MedImpact, for questions: . THIS IS NOT INSURANCE.] diltiazem ER (XR/XT) 120 mg capsule,extended release,control led RxNorm: 695749 1 Capsule(s) PO QD 04/09/2016 09/15/2016 Inactive [SAVINGS FOR UN INSURED PATIENTS -- BIN:649619, PCN: ASPROD1, Group: AME08, ID# [id number], Process claim through MedImpact, for questions: . THIS IS NOT INSURANCE.] lisinopril 20 mg-hydrochlorothiazide 12.5 mg tablet RxNorm: 305693 1 Tablet(s) PO QAM 12/10/2015 06/06/2016 Inactive [AttnRPh: Saving apply/adjudicate RxGRP:SG20 RxBIN:[id number] RxPCN: ID#:[id number]] diltiazem ER (XR/XT) 120 mg capsule,extended release,control led RxNorm: 559893 1 Capsule(s) PO QD 02/07/2015 02/01/2016 Inactive [SAVINGS FOR UN INSURED PATIENTS -- BIN:087887, PCN: ASPROD1, Group: AME08, ID# [id number], Process claim through MedImpact, for questions: . THIS IS NOT INSURANCE.] lisinopril 20 mg-hydrochlorothiazide 12.5 mg tablet RxNorm: 302836 1 Tablet(s) PO QAM 02/07/2015 12/09/2015 Inactive [AttnRPh: Saving apply/adjudicate RxGRP:SG20 RxBIN:[id number] RxPCN: ID#:[id number]] metformin ER 1,000 mg 24 hr tablet,extended release RxNorm: 185777 1 Tablet(s) PO QD 02/07/2015 07/19/2015 Inactive [SAVINGS FOR UNI NSURED PATIENTS -- BIN:764883, PCN: ASPROD1, Group: AME08, ID# [id number], Process claim through Yeapoo, for questions: . THIS IS NOT INSURANCE.] diltiazem ER (XR/XT) 120 mg capsule,extended release,control led RxNorm: 052209 1 Capsule(s) PO QD 12/28/2014 02/06/2015 Inactive [SAVINGS FOR UN INSURED PATIENTS -- BIN:513612, PCN: ASPROD1, Group: AME08, ID# [id number], Process claim through GuideSparkact, for questions: . THIS IS NOT INSURANCE.] lisinopril 20 mg-hydrochlorothiazide 12.5 mg tablet RxNorm: 942847 1 Tablet(s) PO QAM 11/20/2014 10/11/2019 Inactive cefdinir 300 mg capsule RxNorm: 941444 2 Capsule(s) PO QD 07/19/2014 07/28/2014 Inactive [SAVINGS FOR NON-COVERED DRUGS -- BIN:00 3585, PCN: ASPROD1, Group: XXXXX, ID# [id number], Questions: . THIS IS NOT INSURANCE.] meclizine 25 mg tablet RxNorm: 193471 1 Tablet(s) PO QHS 07/04/2014 0 10/31/2014 Inactive [SAVINGS FOR NON-COVERED DRUGS -- BIN:00 3585, PCN: ASPROD1, Group: XXXXX, ID# [id number], Questions: . THIS IS NOT INSURANCE.] allopurinol 300 mg tablet RxNorm: 610421 1 Tablet(s) PO QD 06/17/19 15 06/15/2014 Inactive allopurinol 300 mg tablet RxNorm: 568055 1 Tablet(s) PO QD 06/17/19 15 02/06/2015 Inactive [SAVINGS FOR NON-COVERED TATYANA GS -- BIN:518337, PCN: ASPROD1, Group: XXXXX, ID# [id number], Questions: . THIS IS NOT INSURANCE.] naproxen 500 mg tablet RxNorm: 113357 1 Tablet(s) PO BID 06/16/2014 0 07/19/2015 Inactive [SAVINGS FOR NON-COVERED DRUGS -- BIN:00 3585, PCN: ASPROD1, Group: XXXXX, ID# [id number], Questions: . THIS IS NOT INSURANCE.] metformin ER 1,000 mg 24 hr tablet,extended release RxNorm: 866921 1 Tablet(s) PO QD 03/14/2014 02/06/2015 Inactive [SAVINGS FOR UNI NSURED PATIENTS -- BIN:279039, PCN: ASPROD1, Group: AME08, ID# [id number], Process claim through MedImpact, for questions: . THIS IS NOT INSURANCE.] metformin ER 500 mg tablet,extended release 24hr RxNorm: 860 975 1 Tablet(s) PO QD 01/05/2014 03/13/2014 Inactive [SAVINGS FOR UNI NSURED PATIENTS -- BIN:126848, PCN: ASPROD1, Group: AME08, ID# [id number], Process claim through MedImpact, for questions: . THIS IS NOT INSURANCE.] metformin ER 500 mg tablet,extended release 24hr RxNorm: 860 975 1 Tablet(s) PO QD 11/28/2013 01/04/2014 Inactive [SAVINGS FOR UNI NSURED PATIENTS -- BIN:778812, PCN: ASPROD1, Group: AME08, ID# [id number], Process claim through MedImpact, for questions: . THIS IS NOT INSURANCE.] Keflex 500 mg capsule RxNorm: 606647 1 Capsule(s) PO TID 11/09/2013 0 11/15/2013 Inactive [SAVINGS FOR UNINSURED PATIENTS -- BIN:0 14329, PCN: ASPROD1, Group: AME08, ID# [id number], Process claim through MedImpact, for questions: . THIS IS NOT INSURANCE.] diltiazem ER (XR/XT) 120 mg capsule,extended release,control led RxNorm: 515480 1 Capsule(s) PO QD 11/09/2013 11/03/2014 Inactive [SAVINGS FOR UN INSURED PATIENTS -- BIN:972547, PCN: ASPROD1, Group: MONSERRATEIan, ID# [id number], Process claim through MedImpact, for questions: . THIS IS NOT INSURANCE.] lisinopril 20 mg-hydrochlorothiazide 12.5 mg tablet RxNorm: 929225 2 Tablet(s) PO QAM 11/09/2013 11/20/2014 Inactive [AttnRPh: Saving apply/adjudicate RxGRP:SG20 RxBIN:[id number] RxPCN: ID#:[id number]] diltiazem ER (XR/XT) 120 mg capsule,extended release,control led RxNorm: 549941 1 Capsule(s) PO QD -need labs 10/31/2013 11/08/2013 Inactive [DELICIA INGS FOR UNINSURED PATIENTS -- BIN:765896, PCN: ASPROD1, Group: TRAN, ID# [id number], Process claim through MedImpact, for questions: . THIS IS NOT INSURANCE.] lisinopril 20 mg-hydrochlorothiazide 12.5 mg tablet RxNorm: 167039 2 Tablet(s) PO QAM 10/31/2013 11/08/2013 Inactive [AttnRPh: Saving apply/adjudicate RxGRP:SG20 RxBIN:[id number] RxPCN: ID#:[id number]] diltiazem ER (XR/XT) 120 mg capsule,extended release,control led RxNorm: 820460 1 Capsule(s) PO QD -need labs 09/12/2013 10/11/2013 Inactive [DELICIA INGS FOR UNINSURED PATIENTS -- BIN:634661, PCN: ASPROD1, Group: AME08, ID# [id number], Process claim through MedImpact, for questions: . THIS IS NOT INSURANCE.] Omnicef 300 mg capsule RxNorm: 868954 2 Capsule(s) PO QD 11/24/2012 0 11/08/2013 Inactive naproxen 500 mg tablet RxNorm: 633720 1 Tablet(s) PO TID 11/04/2012 0 11/03/2012 Inactive allopurinol 100 mg tablet RxNorm: 399669 1 Tablet(s) PO BID 013 11/08/2013 Inactive naproxen 500 mg tablet RxNorm: 773665 1 Tablet(s) PO TID 11/04/2012 0 11/08/2013 Inactive diltiazem ER (XR/XT) 120 mg capsule,extended release,control led RxNorm: 031173 1 Capsule(s) PO QD 08/02/2012 09/12/2013 Inactive lisinopril 20 mg-hydrochlorothiazide 12.5 mg tablet RxNorm: 597058 2 Tablet(s) PO QAM 08/02/2012 07/27/2013 Inactive acyclovir 800 mg tablet RxNorm: 953133 1 Tablet(s) PO D Take 1 tablet by mouth 5 times daily 02/26/2012 11/02/2012 Inactive acyclovir 800 mg tablet RxNorm: 097483 1 Tablet(s) PO D 02/25/2012 Inactive clindamycin 300 mg capsule RxNorm: 894380 1 Capsule(s) PO TID 02/2403/02/2012 Inactive lisinopril-hydrochlorothiazide 20 mg-12.5 mg tablet RxNorm: 381142 2 Tablet(s) PO QAM 01/30/2012 08/01/2012 Inactive diltiazem ER (XR/XT) 120 mg capsule,extended release,control led RxNorm: 257326 1 Capsule(s) PO QD 01/30/2012 08/01/2012 Inactive lisinopril-hydrochlorothiazide 20 mg-12.5 mg tablet RxNorm: 422047 2 Tablet(s) PO QAM 01/30/2012 10/11/2019 Inactive diltiazem ER (XR/XT) 120 mg capsule,extended release,control led RxNorm: 174241 1 Capsule(s) PO QD 01/30/2012 10/11/2019 Inactive Culturelle 10 billion cell capsule RxNorm: 117885 1 Capsule(s) PO Q D 10/16/2011 02/24/2012 Inactive Omnicef 300 mg capsule RxNorm: 453485 2 Capsule(s) PO QD 09/24/2011 0 11/02/2012 Inactive diltiazem ER (XR/XT) 120 mg capsule,extended release,control led RxNorm: 405146 1 Capsule(s) PO QD 09/09/2011 01/29/2012 Inactive Culturelle 10 billion cell Cap RxNorm: 304244 1 Capsule (s) PO BID take a few hours after Doxycycline. Probiotic 09/09/2011 09/28/2011 Inactive lisinopril-hydrochlorothiazide 20 mg-12.5 mg tablet RxNorm: 712363 2 Tablet(s) PO QAM 09/09/2011 01/29/2012 Inactive doxycycline hyclate 100 mg Tab RxNorm: 1458843 1 Tablet( s) PO BID antibiotic. (may make a little sensitive to sunburn) 09/09/2011 09/18/2011 Inactiv e lisinopril-hydrochlorothiazide 20 mg-12.5 mg Tab RxNorm: 197 886 2 Tablet(s) PO QAM Due for yearly check-up 09/08/2011 09/08/2011 Inactive diltiazem ER (XR/XT) 120 mg Continuous Release Cap RxNorm: 8 04027 1 Capsule(s) PO QD Due for yearly check-up. 09/08/2011 09/08/2011 Inactive diltiazem ER (XR/XT) 120 mg Continuous Release Cap RxNorm: 8 13134 1 Capsule(s) PO QD 08/29/2010 08/23/2011 Inactive lisinopril-hydrochlorothiazide 20 mg-12.5 mg Tab RxNorm: 197 886 2 Tablet(s) PO QAM 08/29/2010 08/23/2011 Inactive lisinopril-hydrochlorothiazide 20 mg-25 mg Tab RxNorm: 155000 1 Tablet(s) PO QD 08/21/2010 08/28/2010 Inactive allopurinol 100 mg tablet RxNorm: 016300 1 Tablet(s) PO QD 04/22/19 11 08/28/2010 Inactive allopurinol 100 mg Tab RxNorm: 922536 1 Tablet(s) PO QD 12/18/2009 Inactive Allopurinol 100 mg Tab RxNorm: 470692 1 Tablet(s) PO QD 12/12/2009 Inactive Allopurinol 100 mg Tab RxNorm: 139971 1 Tablet(s) PO QD 10/30/2009 Inactive Omnicef 300 mg Cap RxNorm: 622463 2 Capsule(s) PO QD 10/01/200910/29 Inactive Allopurinol 100 mg Tab RxNorm: 313348 1 Tablet(s) PO QD 10/01/2009 Inactive Vitamin D3 oral RxNorm: 2418 oral 04/18/2020 Active Vitamin C oral RxNorm: 1151 oral 04/18/2020 Active Vitamin B12 1000mcg Tablet RxNorm: 1 Tablet(s) PO QD 08/29/2010 Inactive lisinopril 20 mg-hydrochlorothiazide 12.5 mg tablet RxNorm: 258926 1 Tablet(s) PO QAM 11/20/2014 11/19/2014 Inactive Medrol (Sid) 4 mg tablets in a dose pack RxNorm: 816183 Tablet(s) PO as directed 11/09/2013 11/08/2013 Inactive Omnicef 300 mg Cap RxNorm: 486346 2 Capsule(s) PO QD 09/24/201112/11 Inactive Fish Oil 1,000 mg Cap RxNorm: 1 Capsule(s) PO QD 11/09/20132013 Inactive diltiazem ER (XR/XT) 120 mg Continuous Release Cap RxNorm: 8 40050 1 Capsule(s) PO QD 08/29/2010 08/28/2010 Inactive Culturelle 10 billion cell capsule RxNorm: 153078 1 Capsule(s) PO Q D 11/03/2012 11/02/2012 Inactive metformin ER 500 mg tablet,extended release 24hr RxNorm: 860 975 1 Tablet(s) PO QD 11/28/2013 11/27/2013 Inactive Lisinopril Oral RxNorm: Oral 10/01/2009 10/01/2009 Inactive Vitamin B12 1000mcg Tablet RxNorm: 1 Tablet(s) PO QD 12/18/2015 Inactive Vitamin B12 1000mcg Tablet RxNorm: 1 Tablet(s) PO QD 11/09/2013 Inactive lisinopril-hydrochlorothiazide 20 mg-25 mg Tab RxNorm: 357968 1 Tablet(s) PO QD 08/21/2010 2010 Inactive metformin ER 1,000 mg 24 hr tablet,extended release RxNorm: 056209 1 Tablet(s) PO QD 03/14/2014 03/13/2014 Inactive Fish Oil 1,000 mg capsule RxNorm: 1 Capsule(s) PO QD 12/18/2015 Inactive Medication Administered No Medication Administered data Immunizations Vaccine Codes Date Status B12 Unknown 09/24/2011 Results Observation Observation Code Item Item Code Result Date S ervice Location GLYCOSYLATED HEMOGLOBIN TEST 99064 Hgb A1c 40645-0 5.7 % 0 04/18/2020 Unknown GFR CALC 1426250 GFR Non Afr Amr >60 mL/min 04/18/2020 Un known GFR CALC 8678724 GFR Afr Amr >60 mL/min 04/18/2020 Unknow n COMPREHENSIVE METABOLIC 66139 AST 35 U/L 2020 Unknown COMPREHENSIVE METABOLIC 51782 ALT 45 U/L 2020 Unknown COMPREHENSIVE METABOLIC 94602 BUN 10 mg/dL 2020 Unknown COMPREHENSIVE METABOLIC 48288 ALBUMIN 4.3 g/dL 2020 Unknown COMPREHENSIVE METABOLIC 90329 CHLORIDE 101 mmol/L 04/18 Unknown COMPREHENSIVE METABOLIC 87703 Bili Total 0.8 mg/dL 04/18 Unknown COMPREHENSIVE METABOLIC 85411 ALK PHOS 73 U/L 2020 Unknown COMPREHENSIVE METABOLIC 91246 SODIUM 137 mmol/L 04/18 Unknown COMPREHENSIVE METABOLIC 68280 CREATININE 0.99 mg/dL 03/27 Unknown COMPREHENSIVE METABOLIC 18918 CALCIUM 9.1 mg/dL 2020 Unknown COMPREHENSIVE METABOLIC 61765 POTASSIUM 4.3 mmol/L 04/18 Unknown COMPREHENSIVE METABOLIC 86146 Total Protein 7.0 g/dL Unknown COMPREHENSIVE METABOLIC 58670 Glucose 133 mg/dL 2020 Unknown COMPREHENSIVE METABOLIC 78954 Bicarbonate 26 mmol/L 03/27 Unknown COMPREHENSIVE METABOLIC 66859 AGAP 10 mmol/L 2020 Unknown MEAN GLUC 5256998 Calc Mean Gluc 117 mg/dL 04/18/2020 Unkn own LIPID GROUP 05406 Cholesterol 187 mg/dL 04/18/2020 Unkno wn LIPID GROUP 66998 Triglyceride 87 mg/dL 04/18/2020 Unkn own LIP[facility] GROUP 57504 HDL CHOLESTEROL 59 mg/dL 04/18/2020 U nknown LIPID GROUP 07490 Chol/HDL Ratio 3.17 ratio 04/18/2020 U nknown LIPID GROUP 83729 NON-HDL Chol 128 mg/dL 04/18/2020 Unkn own LIPID GROUP 24956 LDL Cholesterol 111 mg/dL 04/18/2020 U nknown HEPATITIS C ANTIBODY 58955 Hepatitis C Ab Non-Reactive 02/01/2018 Unknown GLYCOSYLATED HEMOGLOBIN TEST 41919 Hgb A1c 37493-2 6.2 % 1 04/01/2017 Unknown GFR CALC 7611683 GFR Non Afr Amr >60 mL/min 01/29/2018 Un known GFR CALC 8631925 GFR Afr Amr >60 mL/min 01/29/2018 Unknow n COMPREHENSIVE METABOLIC 72141 AST 17 U/L 2017 Unknown COMPREHENSIVE METABOLIC 56618 ALT 17 U/L 2017 Unknown COMPREHENSIVE METABOLIC 34857 BUN 12 mg/dL 2017 Unknown COMPREHENSIVE METABOLIC 93664 ALBUMIN 4.6 g/dL 2017 Unknown COMPREHENSIVE METABOLIC 52133 CHLORIDE 101 mmol/L 01/29 Unknown COMPREHENSIVE METABOLIC 55140 Bili Total 0.9 mg/dL 01/29 Unknown COMPREHENSIVE METABOLIC 39135 ALK PHOS 57 U/L 2017 Unknown COMPREHENSIVE METABOLIC 41207 SODIUM 136 mmol/L 01/29 Unknown COMPREHENSIVE METABOLIC 61166 CREATININE 1.00 mg/dL 08/2017 Unknown COMPREHENSIVE METABOLIC 02623 CALCIUM 9.6 mg/dL 2017 Unknown COMPREHENSIVE METABOLIC 03457 POTASSIUM 4.2 mmol/L 01/29 Unknown COMPREHENSIVE METABOLIC 64987 Total Protein 6.9 g/dL Unknown COMPREHENSIVE METABOLIC 14268 Glucose 128 mg/dL 2017 Unknown COMPREHENSIVE METABOLIC 53736 Bicarbonate 27 mmol/L 08/2017 Unknown COMPREHENSIVE METABOLIC 44581 AGAP 8 mmol/L 2017 Unknown LIPID GROUP 34188 Cholesterol 168 mg/dL 01/29/2018 Unkno wn LIPID GROUP 36953 Triglyceride 82 mg/dL 01/29/2018 Unkn own LIPID GROUP 51640 HDL CHOLESTEROL 43 mg/dL 01/29/2018 U nknown LIPID GROUP 60523 Chol/HDL Ratio 3.91 ratio 01/29/2018 U nknown LIPID GROUP 31963 NON-HDL Chol 125 mg/dL 01/29/2018 Unkn own LIPID GROUP 70409 LDL Cholesterol 109 mg/dL 01/29/2018 U nknown MEAN GLUC 5156444 Calc Mean Gluc 131 mg/dL 01/29/2018 Unkn own LIPID GROUP 01621 Cholesterol 164 mg/dL 05/01/2017 Unkno wn LIPID GROUP 81695 Triglyceride 131 mg/dL 05/01/2017 Unkn own LIPID GROUP 19673 HDL CHOLESTEROL 45 mg/dL 05/01/2017 U nknown LIPID GROUP 84797 Chol/HDL Ratio 3.64 ratio 05/01/2017 U nknown LIPID GROUP 78234 NON-HDL Chol 119 mg/dL 05/01/2017 Unkn own LIPID GROUP 52588 LDL Cholesterol 93 mg/dL 05/01/2017 U nknown COMPLETE BLOOD COUNT 0141610 WBC 4.9 10e9/L 05/02/19 18 Unknown COMPLETE BLOOD COUNT 3332275 RBC 4.31 10e12/L 2017 Unknown COMPLETE BLOOD COUNT 3322613 HEMOGLOBIN 14.3 g/dL 05/02/19 18 Unknown COMPLETE BLOOD COUNT 8413040 HEMATOCRIT 42.8 % 05/02/19 18 Unknown COMPLETE BLOOD COUNT 2603573 MCV 99.3 fL 8 Unknown COMPLETE BLOOD COUNT 7898185 MCH 33.2 pg 8 Unknown COMPLETE BLOOD COUNT 0856403 MCHC 33.4 g/dL 8 Unknown COMPLETE BLOOD COUNT 5730074 PLATELET COUNT 241 10e9/L 10/2017 Unknown COMPLETE BLOOD COUNT 8870795 Mean Plt Volume 11.0 fL 10/2017 Unknown COMPLETE BLOOD COUNT 1658663 Neut Auto 56.6 % 8 Unknown COMPLETE BLOOD COUNT 6957334 Lymph Auto 24.7 % 05/02/19 18 Unknown COMPLETE BLOOD COUNT 8544278 [place] Auto 11.6 % 8 Unknown COMPLETE BLOOD COUNT 6394159 RDW 13.2 % 8 Unknown COMPLETE BLOOD COUNT 2863380 Eos Auto 6.9 % 8 Unknown COMPLETE BLOOD COUNT 4941545 Baso Auto 0.2 % 8 Unknown COMPLETE BLOOD COUNT 3198105 Neutrophil Abs 2.77 10e9/L Unknown COMPLETE BLOOD COUNT 7594635 Lymphocyte Abs 1.21 10e9/L Unknown COMPLETE BLOOD COUNT 8002694 Monocyte Abs 0.57 10e9/L 10/2017 Unknown COMPLETE BLOOD COUNT 2634972 Eosinophil Abs 0.34 10e9/L Unknown COMPLETE BLOOD COUNT 3695482 RDW-SD 47.2 fL 8 Unknown COMPLETE BLOOD COUNT 0964368 Basophil Abs 0.01 10e9/L 10/2017 Unknown GLYCOSYLATED HEMOGLOBIN TEST 29681 Hgb A1c 67526-3 6.0 % 0 05/01/2017 Unknown GFR CALC 5313373 GFR Non Afr Amr >60 mL/min 05/01/2017 Un known GFR CALC 5204475 GFR Afr Amr >60 mL/min 05/01/2017 Unknow n MEAN GLUC 2208183 Calc Mean Gluc 126 mg/dL 05/01/2017 Unkn own COMPREHENSIVE METABOLIC 59158 AST 17 U/L 2017 Unknown COMPREHENSIVE METABOLIC 51161 ALT 16 U/L 2017 Unknown COMPREHENSIVE METABOLIC 44481 BUN 13 mg/dL 2017 Unknown COMPREHENSIVE METABOLIC 25930 ALBUMIN 3.9 g/dL 2017 Unknown COMPREHENSIVE METABOLIC 75537 CHLORIDE 104 mmol/L 05/01 Unknown COMPREHENSIVE METABOLIC 89717 Bili Total 0.7 mg/dL 05/01 Unknown COMPREHENSIVE METABOLIC 25866 ALK PHOS 58 U/L 2017 Unknown COMPREHENSIVE METABOLIC 69813 SODIUM 139 mmol/L 05/01 Unknown COMPREHENSIVE METABOLIC 39763 CREATININE 0.99 mg/dL 10/2017 Unknown COMPREHENSIVE METABOLIC 77317 CALCIUM 9.5 mg/dL 2017 Unknown COMPREHENSIVE METABOLIC 89277 POTASSIUM 4.3 mmol/L 05/01 Unknown COMPREHENSIVE METABOLIC 73952 Total Protein 6.7 g/dL Unknown COMPREHENSIVE METABOLIC 67292 Glucose 110 mg/dL 2017 Unknown COMPREHENSIVE METABOLIC 94230 Bicarbonate 27 mmol/L 10/2017 Unknown COMPREHENSIVE METABOLIC 92047 AGAP 8 mmol/L 2017 Unknown PSA EQUIMOLAR NITHIN 53855 PSA Total 1.10 ng/mL 8 Unknown THYROID STIMULATING HORMONE 78014 TSH 0.673 uIU/mL 05/01/2017 Unknown GLYCOSYLATED HEMOGLOBIN TEST 81503 Hgb A1c 31737-3 5.8 % 1 03/08/2015 Unknown MEAN GLUC 0861296 Calc Mean Gluc 120 mg/dL 01/07/2016 Unkn own FREE T4 91095 T4 Free 1.13 ng/dL 01/04/2016 Unknown THYROID STIMULATING HORMONE 23394 TSH 0.875 uIU/mL 01/04/2016 Unknown COMPREHENSIVE METABOLIC 05556 AST 20 U/L 2015 Unknown COMPREHENSIVE METABOLIC 22036 ALT 20 U/L 2015 Unknown COMPREHENSIVE METABOLIC 58465 BUN 14 mg/dL 2015 Unknown COMPREHENSIVE METABOLIC 20077 ALBUMIN 4.4 g/dL 2015 Unknown COMPREHENSIVE METABOLIC 36510 CHLORIDE 103 mmol/L 01/03 Unknown COMPREHENSIVE METABOLIC 04353 Bili Total 0.5 mg/dL 01/03 Unknown COMPREHENSIVE METABOLIC 94769 ALK PHOS 53 U/L 2015 Unknown COMPREHENSIVE METABOLIC 40056 SODIUM 137 mmol/L 01/03 Unknown COMPREHENSIVE METABOLIC 40663 CREATININE 0.98 mg/dL 12/24 Unknown COMPREHENSIVE METABOLIC 35151 CALCIUM 9.6 mg/dL 2015 Unknown COMPREHENSIVE METABOLIC 58797 POTASSIUM 4.5 mmol/L 01/03 Unknown COMPREHENSIVE METABOLIC 94687 Total Protein 7.0 g/dL Unknown COMPREHENSIVE METABOLIC 75268 Glucose 117 mg/dL 2015 Unknown COMPREHENSIVE METABOLIC 12251 Bicarbonate 26 mmol/L 12/24 Unknown COMPREHENSIVE METABOLIC 64556 AGAP 8 mmol/L 2015 Unknown COMPLETE BLOOD COUNT 6848577 WBC 6.2 10e9/L 01/04/20 16 Unknown COMPLETE BLOOD COUNT 5779984 RBC 4.55 10e12/L 2015 Unknown COMPLETE BLOOD COUNT 7051374 HEMOGLOBIN 15.0 g/dL 01/04/20 16 Unknown COMPLETE BLOOD COUNT 5143488 HEMATOCRIT 43.8 % 01/04/20 16 Unknown COMPLETE BLOOD COUNT 8373950 MCV 96.3 fL 6 Unknown COMPLETE BLOOD COUNT 7751187 MCH 33.0 pg 6 Unknown COMPLETE BLOOD COUNT 3589305 MCHC 34.2 g/dL 6 Unknown COMPLETE BLOOD COUNT 5727320 PLATELET COUNT 259 10e9/L 12/2015 Unknown COMPLETE BLOOD COUNT 2078615 Mean Plt Volume 10.8 fL 12/2015 Unknown COMPLETE BLOOD COUNT 7599099 Neut Auto 62.4 % 6 Unknown COMPLETE BLOOD COUNT 3924406 Lymph Auto 25.9 % 01/04/20 16 Unknown COMPLETE BLOOD COUNT 7827753 [place] Auto 6.8 % 6 Unknown COMPLETE BLOOD COUNT 3117355 RDW 13.4 % 6 Unknown COMPLETE BLOOD COUNT 1394204 Eos Auto 4.9 % 6 Unknown COMPLETE BLOOD COUNT [id number] Baso Auto 0.0 % 6 Unknown COMPLETE BLOOD COUNT [id number] Neutrophil Abs 3.87 10e9/L Unknown COMPLETE BLOOD COUNT [id number] Lymphocyte Abs 1.61 10e9/L Unknown COMPLETE BLOOD COUNT [id number] Monocyte Abs 0.42 10e9/L 12/24 Unknown COMPLETE BLOOD COUNT [id number] Eosinophil Abs 0.30 10e9/L Unknown COMPLETE BLOOD COUNT [id number] RDW-SD 46.2 fL 6 Unknown COMPLETE BLOOD COUNT [id number] Basophil Abs 0.00 10e9/L 12/24 Unknown PSA EQUIMOLAR NITHIN 46593 PSA Total 1.14 ng/mL 6 Unknown GFR CALC [id number] GFR Non Afr Amr >60 mL/min 01/04/2016 Un known GFR CALC [id number] GFR Afr Amr >60 mL/min 01/04/2016 Unknow n LIPID GROUP 94598 Cholesterol 172 mg/dL 01/04/2016 Unkno wn LIPID GROUP 29188 Triglyceride 156 mg/dL 01/04/2016 Unkn own LIPID GROUP 35778 HDL CHOLESTEROL 42 mg/dL 01/04/2016 U nknown LIPID GROUP 14379 Chol/HDL Ratio 4.10 ratio 01/04/2016 U nknown LIPID GROUP 13154 NON-HDL Chol 130 mg/dL 01/04/2016 Unkn own LIPID GROUP 36044 LDL Cholesterol 99 mg/dL 01/04/2016 U nknown GLYCOSYLATED HEMOGLOBIN TEST 04048 A1C HPLC 21576-3 5.8 % 1 04/10/2014 Unknown COMPLETE BLOOD COUNT [id number] WBC 6.0 10e9/L 02/03/20 15 Unknown COMPLETE BLOOD COUNT [id number] RBC 4.39 10e12/L 2014 Unknown COMPLETE BLOOD COUNT [id number] HGB 14.3 g/dL 5 Unknown COMPLETE BLOOD COUNT 0976372 HCT DET 41.7 % 5 Unknown COMPLETE BLOOD COUNT 9458465 MCV 95.0 fL 5 Unknown COMPLETE BLOOD COUNT [id number] MCH 32.6 pg 5 Unknown COMPLETE BLOOD COUNT [id number] MCHC 34.3 g/dL 5 Unknown COMPLETE BLOOD COUNT [id number] PLT 272 10e9/L 02/03/20 15 Unknown COMPLETE BLOOD COUNT [id number] MPV 11.1 fL 5 Unknown COMPLETE BLOOD COUNT [id number] GARY % 62.7 % 5 Unknown COMPLETE BLOOD COUNT [id number] LY % 25.2 % 5 Unknown COMPLETE BLOOD COUNT [id number] MON % 7.9 % 5 Unknown COMPLETE BLOOD COUNT [id number] EOS % 4.0 % 5 Unknown COMPLETE BLOOD COUNT [id number] BASO % 0.2 % 5 Unknown COMPLETE BLOOD COUNT [id number] RDW 13.2 % 5 Unknown COMPLETE BLOOD COUNT [id number] ABS GARY 3.76 10e9/L 015 Unknown COMPLETE BLOOD COUNT 1637055 ABS LYMPH 1.51 10e9/L 015 Unknown COMPLETE BLOOD COUNT [id number] ABS MONO 0.47 10e9/L 015 Unknown COMPLETE BLOOD COUNT [id number] ABS EOS 0.24 10e9/L 015 Unknown COMPLETE BLOOD COUNT [id number] ABS BASO 0.01 10e9/L 015 Unknown COMPLETE BLOOD COUNT [id number] RDW-SD 44.7 fL 5 Unknown GFR CALC 5739357 GFR AA >60 ML/MIN 02/02/2015 Unknown GFR CALC 4976606 GFR NON-AA >60 ML/MIN 02/02/2015 Unknown THYROID STIMULATING HORMONE 28660 TSH 0.970 uIU/ML 02/02/2015 Unknown LIPID GROUP 47611 HDL TEST 41 MG/DL 02/02/2015 Unknown LIPID GROUP 21961 TRIG 151 MG/DL 02/02/2015 Unknown LIPID GROUP 03578 TEST LDL 122 MG/DL 02/02/2015 Unknown LIPID GROUP 22625 CHOL 193 MG/DL 02/02/2015 Unknown LIPID GROUP 22197 RCHOL/HDL 4.71 RATIO 02/02/2015 Unknow n LIPID GROUP 17311 NON-HDL CH 152 MG/DL 02/02/2015 Unknow n PSA EQUIMOLAR NITHIN 01831 PSA EQ 0.76 NG/ML 5 Unknown FREE T4 75123 FREE T4 0.93 NG/DL 02/02/2015 Unknown COMPREHENSIVE METABOLIC 06954 AST 21 U/L 2014 Unknown COMPREHENSIVE METABOLIC 23405 ALT 21 IU/L 2014 Unknown COMPREHENSIVE METABOLIC 73020 BUN 15 MG/DL 2014 Unknown COMPREHENSIVE METABOLIC 95434 ALBUMIN 4.5 GM/DL 2014 Unknown COMPREHENSIVE METABOLIC 02005 CHLORIDE 104 MMOL/L 02/02 Unknown COMPREHENSIVE METABOLIC 41996 BILI TOT 1.0 MG/DL 2014 Unknown COMPREHENSIVE METABOLIC 23483 ALK PHOS 71 U/L 2014 Unknown COMPREHENSIVE METABOLIC 03084 SODIUM 136 MMOL/L 02/02 Unknown COMPREHENSIVE METABOLIC 26922 CREATININE 0.94 MG/DL 01/23 Unknown COMPREHENSIVE METABOLIC 66611 CALCIUM 9.8 MG/DL 2014 Unknown COMPREHENSIVE METABOLIC 73875 POTASSIUM 4.3 MMOL/L 02/02 Unknown COMPREHENSIVE METABOLIC 46934 PROT TOT 6.9 GM/DL 2014 Unknown COMPREHENSIVE METABOLIC 75576 Glucose 113 MG/DL 2014 Unknown COMPREHENSIVE METABOLIC 54118 BICARB 26 MMOL/L 2014 Unknown COMPREHENSIVE METABOLIC 45483 ANION GAP 6 MEQ/L 2014 Unknown ANTI STREPTOLYSIN O TITER(ASO) 13389 ASO 57 IU/ML 06/19/2014 Unknown RA FACTOR 57099 RA FACTOR <20.0 IU/ML 06/15/2014 Unknown FREE T4 65718 FREE T4 1.19 NG/DL 06/15/2014 Unknown ANTINUCLEAR ANTIBODY SCREEN 95564 SHANNON SCR <1:80 Unknown ERYTHROCYTE SEDIMENTATION RATE 82073 ESR 2 MM/HR 06/14/2014 Unknown COMPLETE BLOOD COUNT [id number] WBC 6.7 10e9/L 06/15/19 15 Unknown COMPLETE BLOOD COUNT [id number] RBC 4.86 10e12/L 2014 Unknown COMPLETE BLOOD COUNT 0561423 HGB 15.9 g/dL 5 Unknown COMPLETE BLOOD COUNT [id number] HCT DET 45.0 % 5 Unknown COMPLETE BLOOD COUNT 2350443 MCV 92.6 fL 5 Unknown COMPLETE BLOOD COUNT 0765825 MCH 32.7 pg 5 Unknown COMPLETE BLOOD COUNT 5302306 MCHC 35.3 g/dL 5 Unknown COMPLETE BLOOD COUNT 1662051 PLT 299 10e9/L 06/15/19 15 Unknown COMPLETE BLOOD COUNT 2229702 MPV 10.0 fL 5 Unknown COMPLETE BLOOD COUNT 6574359 GARY % 63.8 % 5 Unknown COMPLETE BLOOD COUNT 8042905 LY % 18.3 % 5 Unknown COMPLETE BLOOD COUNT [id number] MON % 12.1 % 5 Unknown COMPLETE BLOOD COUNT [id number] EOS % 5.7 % 5 Unknown COMPLETE BLOOD COUNT [id number] BASO % 0.1 % 5 Unknown COMPLETE BLOOD COUNT 9854552 RDW 13.3 % 5 Unknown COMPLETE BLOOD COUNT [id number] ABS GARY 4.27 10e9/L 015 Unknown COMPLETE BLOOD COUNT [id number] ABS LYMPH 1.23 10e9/L 015 Unknown COMPLETE BLOOD COUNT 7256714 ABS MONO 0.81 10e9/L 015 Unknown COMPLETE BLOOD COUNT [id number] ABS EOS 0.38 10e9/L 015 Unknown COMPLETE BLOOD COUNT [id number] ABS BASO 0.01 10e9/L 015 Unknown COMPLETE BLOOD COUNT 9334544 RDW-SD 44.3 fL 5 Unknown URIC ACID 12734 URIC ACID 7.6 MG/DL 06/14/[place] [address] SYP AB NR 06/14/2014 Unknown THYROID STIMULATING HORMONE 41995 TSH 0.825 uIU/ML 06/14/2014 Unknown GLYCOSYLATED HEMOGLOBIN TEST 65099 A1C HPLC 19684-2 6.0 % 0 06/14/2014 Unknown VITAMIN B 12 FOLIC ACID 29050|59100 VIT B 12 751 PG/ML 05/25 Unknown VITAMIN B 12 FOLIC ACID 74546|07034 FOLIC ACID 23.5 NG/ML Unknown GFR CALC 1375415 GFR AA >60 ML/MIN 06/14/2014 Unknown GFR CALC 8144805 GFR NON-AA >60 ML/MIN 06/14/2014 Unknown C-REACTIVE PROTEIN (CRP) QUANT 38638 CRP 0.1 MG/DL 06/14/2014 Unknown COMPREHENSIVE METABOLIC 80140 AST 19 U/L 2014 Unknown COMPREHENSIVE METABOLIC 40305 ALT 16 IU/L 2014 Unknown COMPREHENSIVE METABOLIC 66328 BUN 13 MG/DL 2014 Unknown COMPREHENSIVE METABOLIC 72130 ALBUMIN 5.1 GM/DL 2014 Unknown COMPREHENSIVE METABOLIC 29089 CHLORIDE 92 MMOL/L 2014 Unknown COMPREHENSIVE METABOLIC 02261 BILI TOT 0.6 MG/DL 2014 Unknown COMPREHENSIVE METABOLIC 73860 ALK PHOS 61 U/L 2014 Unknown COMPREHENSIVE METABOLIC 97507 SODIUM 128 MMOL/L 06/14 Unknown COMPREHENSIVE METABOLIC 25271 CREATININE 1.00 MG/DL 05/25 Unknown COMPREHENSIVE METABOLIC 50823 CALCIUM 10.7 MG/DL 06/14 Unknown COMPREHENSIVE METABOLIC 97725 POTASSIUM 4.1 MMOL/L 06/14 Unknown COMPREHENSIVE METABOLIC 77911 PROT TOT 7.6 GM/DL 2014 Unknown COMPREHENSIVE METABOLIC 25291 Glucose 106 MG/DL 2014 Unknown COMPREHENSIVE METABOLIC 32571 BICARB 29 MMOL/L 2014 Unknown COMPREHENSIVE METABOLIC 11739 ANION GAP 7 MEQ/L 2014 Unknown COMPREHENSIVE METABOLIC 36246 AST 21 U/L 2014 Unknown COMPREHENSIVE METABOLIC 82973 ALT 26 IU/L 2014 Unknown COMPREHENSIVE METABOLIC 83121 BUN 16 MG/DL 2014 Unknown COMPREHENSIVE METABOLIC 18755 ALBUMIN 4.6 GM/DL 2014 Unknown COMPREHENSIVE METABOLIC 03247 CHLORIDE 99 MMOL/L 2014 Unknown COMPREHENSIVE METABOLIC 38181 BILI TOT 0.5 MG/DL 2014 Unknown COMPREHENSIVE METABOLIC 18341 ALK PHOS 57 U/L 2014 Unknown COMPREHENSIVE METABOLIC 13383 SODIUM 134 MMOL/L 03/09 Unknown COMPREHENSIVE METABOLIC 83555 CREATININE 0.91 MG/DL 02/23 Unknown COMPREHENSIVE METABOLIC 56028 CALCIUM 9.9 MG/DL 2014 Unknown COMPREHENSIVE METABOLIC 89235 POTASSIUM 4.3 MMOL/L 03/09 Unknown COMPREHENSIVE METABOLIC 35768 PROT TOT 7.0 GM/DL 2014 Unknown COMPREHENSIVE METABOLIC 65227 Glucose 91 MG/DL 2014 Unknown COMPREHENSIVE METABOLIC 12096 BICARB 30 MMOL/L 2014 Unknown COMPREHENSIVE METABOLIC 19660 ANION GAP 5 MEQ/L 2014 Unknown GLYCOSYLATED HEMOGLOBIN TEST 26722 A1C HPLC 61230-2 6.4 % 0 03/09/2014 Unknown GFR CALC 5215919 GFR AA >60 ML/MIN 03/09/2014 Unknown GFR CALC 5249666 GFR NON-AA >60 ML/MIN 03/09/2014 Unknown GLYCOSYLATED HEMOGLOBIN TEST 86980 A1C HPLC 71158-6 6.0 % 0 11/22/2013 Unknown THYROID STIMULATING HORMONE 07068 TSH 0.643 uIU/ML 11/18/2013 Unknown PSA EQUIMOLAR NITHIN 81327 PSA EQ 0.75 NG/ML 4 Unknown COMPREHENSIVE METABOLIC 14806 AST 21 U/L 2013 Unknown COMPREHENSIVE METABOLIC 47677 ALT 22 IU/L 2013 Unknown COMPREHENSIVE METABOLIC 47746 BUN 16 MG/DL 2013 Unknown COMPREHENSIVE METABOLIC 94219 ALBUMIN 4.6 GM/DL 2013 Unknown COMPREHENSIVE METABOLIC 44934 CHLORIDE 97 MMOL/L 2013 Unknown COMPREHENSIVE METABOLIC 24921 BILI TOT 0.8 MG/DL 2013 Unknown COMPREHENSIVE METABOLIC 20780 ALK PHOS 68 U/L 2013 Unknown COMPREHENSIVE METABOLIC 28589 SODIUM 132 MMOL/L 11/18 Unknown COMPREHENSIVE METABOLIC 28948 CREATININE 0.95 MG/DL 10/25 Unknown COMPREHENSIVE METABOLIC 25900 CALCIUM 10.1 MG/DL 11/18 Unknown COMPREHENSIVE METABOLIC 71156 POTASSIUM 4.2 MMOL/L 11/18 Unknown COMPREHENSIVE METABOLIC 55047 PROT TOT 7.2 GM/DL 2013 Unknown COMPREHENSIVE METABOLIC 36641 Glucose 125 MG/DL 2013 Unknown COMPREHENSIVE METABOLIC 05260 BICARB 26 MMOL/L 2013 Unknown COMPREHENSIVE METABOLIC 49619 ANION GAP 9 MEQ/L 2013 Unknown COMPLETE BLOOD COUNT 6711652 WBC 7.3 10e9/L 11/19/19 14 Unknown COMPLETE BLOOD COUNT 2672542 RBC 4.68 10e12/L 2013 Unknown COMPLETE BLOOD COUNT 7914870 HGB 15.4 g/dL 4 Unknown COMPLETE BLOOD COUNT 4605553 HCT DET 43.4 % 4 Unknown COMPLETE BLOOD COUNT 4714467 MCV 92.7 fL 4 Unknown COMPLETE BLOOD COUNT 3579963 MCH 32.9 pg 4 Unknown COMPLETE BLOOD COUNT 8555149 MCHC 35.5 g/dL 4 Unknown COMPLETE BLOOD COUNT 8675198 PLT 286 10e9/L 11/19/19 14 Unknown COMPLETE BLOOD COUNT 7851084 MPV 10.8 fL 4 Unknown COMPLETE BLOOD COUNT 8808714 GARY % 61.6 % 4 Unknown COMPLETE BLOOD COUNT 6002241 LY % 25.6 % 4 Unknown COMPLETE BLOOD COUNT 7384029 MON % 8.7 % 4 Unknown COMPLETE BLOOD COUNT 9055882 EOS % 4.0 % 4 Unknown COMPLETE BLOOD COUNT 2744002 BASO % 0.1 % 4 Unknown COMPLETE BLOOD COUNT 0102092 RDW 12.9 % 4 Unknown COMPLETE BLOOD COUNT [id number] ABS GARY 4.50 10e9/L 014 Unknown COMPLETE BLOOD COUNT 8953719 ABS LYMPH 1.87 10e9/L 014 Unknown COMPLETE BLOOD COUNT 0776554 ABS MONO 0.64 10e9/L 014 Unknown COMPLETE BLOOD COUNT 8038525 ABS EOS 0.29 10e9/L 014 Unknown COMPLETE BLOOD COUNT 7233569 ABS BASO 0.01 10e9/L 014 Unknown COMPLETE BLOOD COUNT 6202465 RDW-SD 42.9 fL 4 Unknown LIPID GROUP 70461 HDL TEST 52 MG/DL 11/18/2013 Unknown LIPID GROUP 76742 TRIG 100 MG/DL 11/18/2013 Unknown LIPID GROUP 87812 TEST LDL 110 MG/DL 11/18/2013 Unknown LIPID GROUP 84760 CHOL 182 MG/DL 11/18/2013 Unknown LIPID GROUP 64448 RCHOL/HDL 3.50 RATIO 11/18/2013 Unknow n LIPID GROUP 98259 NON-HDL CH 130 MG/DL 11/18/2013 Unknow n FREE T4 03420 FREE T4 1.28 NG/DL 11/18/2013 Unknown GFR CALC 7588277 GFR AA >60 ML/MIN 11/18/2013 Unknown GFR CALC 0050205 GFR NON-AA >60 ML/MIN 11/18/2013 Unknown COMPREHENSIVE METABOLIC 10660 AST 21 U/L 2012 Unknown COMPREHENSIVE METABOLIC 41006 ALT 20 IU/L 2012 Unknown COMPREHENSIVE METABOLIC 42619 BUN 12 MG/DL 2012 Unknown COMPREHENSIVE METABOLIC 27537 ALBUMIN 4.6 GM/DL 2012 Unknown COMPREHENSIVE METABOLIC 82901 CHLORIDE 105 MMOL/L 11/03 Unknown COMPREHENSIVE METABOLIC 31487 BILI TOT 0.5 MG/DL 2012 Unknown COMPREHENSIVE METABOLIC 46834 ALK PHOS 53 U/L 2012 Unknown COMPREHENSIVE METABOLIC 44166 SODIUM 138 MMOL/L 11/03 Unknown COMPREHENSIVE METABOLIC 53366 CREATININE 0.93 MG/DL 10/24 Unknown COMPREHENSIVE METABOLIC 79168 CALCIUM 9.7 MG/DL 2012 Unknown COMPREHENSIVE METABOLIC 20780 POTASSIUM 4.3 MMOL/L 11/03 Unknown COMPREHENSIVE METABOLIC 48855 PROT TOT 7.0 GM/DL 2012 Unknown COMPREHENSIVE METABOLIC 79260 Glucose 117 MG/DL 2012 Unknown COMPREHENSIVE METABOLIC 51309 BICARB 25 MMOL/L 2012 Unknown COMPREHENSIVE METABOLIC 23826 ANION GAP 8 MEQ/L 2012 Unknown GFR CALC 9069294 GFR AA >60 ML/MIN 11/03/2012 Unknown GFR CALC 7328659 GFR NON-AA >60 ML/MIN 11/03/2012 Unknown THYROID STIMULATING HORMONE 75823 TSH 1.218 uIU/ML 11/03/2012 Unknown URIC ACID 39560 URIC ACID 7.6 MG/DL 11/03/2012 Unknown COMPLETE BLOOD COUNT 6257452 WBC 5.0 10e9/L 11/04/19 13 Unknown COMPLETE BLOOD COUNT 9270259 RBC 4.70 10e12/L 2012 Unknown COMPLETE BLOOD COUNT 8266383 HGB 15.6 g/dL 3 Unknown COMPLETE BLOOD COUNT 5978689 HCT DET 44.2 % 3 Unknown COMPLETE BLOOD COUNT 1939646 MCV 94.0 fL 3 Unknown COMPLETE BLOOD COUNT 2240991 MCH 33.2 pg 3 Unknown COMPLETE BLOOD COUNT 1649682 MCHC 35.3 g/dL 3 Unknown COMPLETE BLOOD COUNT 4340346 PLT 248 10e9/L 11/04/19 13 Unknown COMPLETE BLOOD COUNT 6615137 MPV 10.9 fL 3 Unknown COMPLETE BLOOD COUNT 5424248 GARY % 58.3 % 3 Unknown COMPLETE BLOOD COUNT 2562160 LY % 27.9 % 3 Unknown COMPLETE BLOOD COUNT 7627926 MON % 7.0 % 3 Unknown COMPLETE BLOOD COUNT 4508372 EOS % 6.6 % 3 Unknown COMPLETE BLOOD COUNT 4982464 BASO % 0.2 % 3 Unknown COMPLETE BLOOD COUNT 2631159 RDW 13.2 % 3 Unknown COMPLETE BLOOD COUNT 2675990 ABS GARY 2.92 10e9/L 013 Unknown COMPLETE BLOOD COUNT 4508279 ABS LYMPH 1.40 10e9/L 013 Unknown COMPLETE BLOOD COUNT 0834175 ABS MONO 0.35 10e9/L 013 Unknown COMPLETE BLOOD COUNT 8598191 ABS EOS 0.33 10e9/L 013 Unknown COMPLETE BLOOD COUNT 4548386 ABS BASO 0.01 10e9/L 013 Unknown COMPLETE BLOOD COUNT 3406432 RDW-SD 44.1 fL 3 Unknown HERPE1/2MG 56470|73926|10772 HSV G1 EIA 1.78 INDEX 3 Unknown HERPE1/2MG 25076|11136|85453 HSVM1/2EIA 0.15 02/26/2012 Unknown HERPE1/2MG 07393|85842|49538 HSV G2 EIA 10.14 INDEX 02/25/19 13 Unknown COMPLETE BLOOD COUNT 7960101 WBC 9.4 10e9/L 02/24/19 13 Unknown COMPLETE BLOOD COUNT 6430615 RBC 4.54 10e12/L 2012 Unknown COMPLETE BLOOD COUNT 0803167 HGB 14.9 g/dL 3 Unknown COMPLETE BLOOD COUNT 8754699 HCT DET 43.0 % 3 Unknown COMPLETE BLOOD COUNT 1995159 MCV 94.7 fL 3 Unknown COMPLETE BLOOD COUNT 3866815 MCH 32.8 pg 3 Unknown COMPLETE BLOOD COUNT 2721438 MCHC 34.7 g/dL 3 Unknown COMPLETE BLOOD COUNT 2104109 PLT 251 10e9/L 02/24/19 13 Unknown COMPLETE BLOOD COUNT 8201973 MPV 11.1 fL 3 Unknown COMPLETE BLOOD COUNT 2368105 GARY % 75.0 % 3 Unknown COMPLETE BLOOD COUNT 9707592 LY % 15.7 % 3 Unknown COMPLETE BLOOD COUNT 8012801 MON % 6.8 % 3 Unknown COMPLETE BLOOD COUNT 8012820 EOS % 2.3 % 3 Unknown COMPLETE BLOOD COUNT 3528549 BASO % 0.2 % 3 Unknown COMPLETE BLOOD COUNT 2584623 RDW 13.2 % 3 Unknown COMPLETE BLOOD COUNT 2836682 ABS GARY 7.05 10e9/L 013 Unknown COMPLETE BLOOD COUNT 8775500 ABS LYMPH 1.48 10e9/L 013 Unknown COMPLETE BLOOD COUNT 3327168 ABS MONO 0.64 10e9/L 013 Unknown COMPLETE BLOOD COUNT 8092067 ABS EOS 0.22 10e9/L 013 Unknown COMPLETE BLOOD COUNT [id number] ABS BASO 0.02 10e9/L 013 Unknown COMPLETE BLOOD COUNT 0977464 RDW-SD 44.3 fL 3 Unknown COMPREHENSIVE METABOLIC 07821 AST 21 U/L 2012 Unknown COMPREHENSIVE METABOLIC 58260 ALT 22 IU/L 2012 Unknown COMPREHENSIVE METABOLIC 48561 BUN 12 MG/DL 2012 Unknown COMPREHENSIVE METABOLIC 17995 ALBUMIN 4.9 GM/DL 2012 Unknown COMPREHENSIVE METABOLIC 43250 CHLORIDE 102 MMOL/L 02/24 Unknown COMPREHENSIVE METABOLIC 99893 BILI TOT 0.6 MG/DL 2012 Unknown COMPREHENSIVE METABOLIC 23240 ALK PHOS 59 U/L 2012 Unknown COMPREHENSIVE METABOLIC 00622 SODIUM 137 MMOL/L 02/24 Unknown COMPREHENSIVE METABOLIC 02883 CREATININE 0.92 MG/DL 03/2012 Unknown COMPREHENSIVE METABOLIC 11519 CALCIUM 9.7 MG/DL 2012 Unknown COMPREHENSIVE METABOLIC 45175 POTASSIUM 4.1 MMOL/L 02/24 Unknown COMPREHENSIVE METABOLIC 33966 PROT TOT 6.9 GM/DL 2012 Unknown COMPREHENSIVE METABOLIC 25961 Glucose 127 MG/DL 2012 Unknown COMPREHENSIVE METABOLIC 81896 BICARB 25 MMOL/L 2012 Unknown COMPREHENSIVE METABOLIC 20018 ANION GAP 10 MEQ/L 2012 Unknown GFR CALC 0567362 GFR AA >60 ML/MIN 02/25/2012 Unknown GFR CALC 4727473 GFR NON-AA >60 ML/MIN 02/25/2012 Unknown TULAREM AB 7534118 TULAREM AB <1:20 09/23/2011 Unknown [place] FEVER [id number] IGG RMSF <1:16 0 09/19/2011 Unknown [place] FEVER [id number] IGM RMSF <1:10 0 09/19/2011 Unknown E CHAFF AB [id number] IGG E CHFF <1:16 09/19/2011 Unknown E CHAFF AB 5301796 IGM E CHFF <1:10 09/19/2011 Unknown GLYCOSYLATED HEMOGLOBIN TEST 68861 A1C HPLC 66284-8 5.4 % 0 09/18/2011 Unknown GFR CALC 8056838 GFR AA >60 ML/MIN 09/17/2011 Unknown GFR CALC 6016040 GFR NON-AA >60 ML/MIN 09/17/2011 Unknown VITAMIN B 12 FOLIC ACID 33192|61204 VIT B 12 405 PG/ML 08/24 Unknown VITAMIN B 12 FOLIC ACID 57951|90841 FOLIC ACID 17.5 NG/ML Unknown COMPREHENSIVE METABOLIC 84693 AST 19 U/L 2011 Unknown COMPREHENSIVE METABOLIC 94198 ALT 19 IU/L 2011 Unknown COMPREHENSIVE METABOLIC 70726 BUN 12 MG/DL 2011 Unknown COMPREHENSIVE METABOLIC 79482 ALBUMIN 4.9 GM/DL 2011 Unknown COMPREHENSIVE METABOLIC 14052 CHLORIDE 98 MMOL/L 2011 Unknown COMPREHENSIVE METABOLIC 55243 BILI TOT 1.2 MG/DL 2011 Unknown COMPREHENSIVE METABOLIC 55516 ALK PHOS 60 U/L 2011 Unknown COMPREHENSIVE METABOLIC 90510 SODIUM 133 MMOL/L 09/16 Unknown COMPREHENSIVE METABOLIC 83608 CREATININE 1.12 MG/DL 08/24 Unknown COMPREHENSIVE METABOLIC 46826 CALCIUM 10.1 MG/DL 09/16 Unknown COMPREHENSIVE METABOLIC 95442 POTASSIUM 4.1 MMOL/L 09/16 Unknown COMPREHENSIVE METABOLIC 67326 PROT TOT 7.6 GM/DL 2011 Unknown COMPREHENSIVE METABOLIC 22391 Glucose 121 MG/DL 2011 Unknown COMPREHENSIVE METABOLIC 46816 BICARB 25 MMOL/L 2011 Unknown COMPREHENSIVE METABOLIC 48153 ANION GAP 10 MEQ/L 2011 Unknown COMPLETE BLOOD COUNT 10124 WBC 5.8 10e9/L 09/17/19 12 Unknown COMPLETE BLOOD COUNT 21597 RBC 5.01 10e12/L 2011 Unknown COMPLETE BLOOD COUNT 63141 HGB 16.4 g/dL 2 Unknown COMPLETE BLOOD COUNT 98467 HCT DET 46.7 % 2 Unknown COMPLETE BLOOD COUNT 13301 MCV 93.2 fL 2 Unknown COMPLETE BLOOD COUNT 55486 MCH 32.7 pg 2 Unknown COMPLETE BLOOD COUNT 22643 MCHC 35.1 g/dL 2 Unknown COMPLETE BLOOD COUNT 58850 PLT 275 10e9/L 09/17/19 12 Unknown COMPLETE BLOOD COUNT 17977 MPV 10.8 fL 2 Unknown COMPLETE BLOOD COUNT 51620 GARY % 47.1 % 2 Unknown COMPLETE BLOOD COUNT 71949 LY % 37.2 % 2 Unknown COMPLETE BLOOD COUNT 28961 MON % 9.5 % 2 Unknown COMPLETE BLOOD COUNT 40685 EOS % 5.9 % 2 Unknown COMPLETE BLOOD COUNT 64724 BASO % 0.3 % 2 Unknown COMPLETE BLOOD COUNT 14107 RDW 13.0 % 2 Unknown COMPLETE BLOOD COUNT 15467 ABS GARY 2.73 10e9/L 012 Unknown COMPLETE BLOOD COUNT 67178 ABS LYMPH 2.16 10e9/L 012 Unknown COMPLETE BLOOD COUNT 47519 ABS MONO 0.55 10e9/L 012 Unknown COMPLETE BLOOD COUNT 29359 ABS EOS 0.34 10e9/L 012 Unknown COMPLETE BLOOD COUNT 65726 ABS BASO 0.02 10e9/L 012 Unknown COMPLETE BLOOD COUNT 11590 RDW-SD 43.1 fL 2 Unknown LIPID GROUP 36354 HDL TEST 39 MG/DL 09/17/2011 Unknown LIPID GROUP 05237 TRIG 195 MG/DL 09/17/2011 Unknown LIPID GROUP 94873 TEST LDL 98 MG/DL 09/17/2011 Unknown LIPID GROUP 75395 CHOL 176 MG/DL 09/17/2011 Unknown LIPID GROUP 86975 RCHOL/HDL 4.51 RATIO 09/17/2011 Unknow n THYROID STIMULATING HORMONE 52949 TSH 2.892 uIU/ML 08/29/2010 Unknown COMPLETE BLOOD COUNT 14334 WBC 6.5 10e9/L 08/30/19 11 Unknown COMPLETE BLOOD COUNT 62981 RBC 4.83 10e12/L 2010 Unknown COMPLETE BLOOD COUNT 55281 HGB 15.9 g/dL 1 Unknown COMPLETE BLOOD COUNT 17962 HCT DET 44.4 % 1 Unknown COMPLETE BLOOD COUNT 76007 MCV 91.9 fL 1 Unknown COMPLETE BLOOD COUNT 16342 MCH 32.9 pg 1 Unknown COMPLETE BLOOD COUNT 17879 MCHC 35.8 g/dL 1 Unknown COMPLETE BLOOD COUNT 19125 PLT 273 10e9/L 08/30/19 11 Unknown COMPLETE BLOOD COUNT 86798 MPV 10.1 fL 1 Unknown COMPLETE BLOOD COUNT 20723 GARY % 45.3 % 1 Unknown COMPLETE BLOOD COUNT 19733 LY % 39.3 % 1 Unknown COMPLETE BLOOD COUNT 16338 MON % 9.8 % 1 Unknown COMPLETE BLOOD COUNT 27568 EOS % 5.4 % 1 Unknown COMPLETE BLOOD COUNT 71546 BASO % 0.2 % 1 Unknown COMPLETE BLOOD COUNT 38299 RDW 13.2 % 1 Unknown COMPLETE BLOOD COUNT 11718 ABS GARY 2.94 10e9/L 011 Unknown COMPLETE BLOOD COUNT 18652 ABS LYMPH 2.55 10e9/L 011 Unknown COMPLETE BLOOD COUNT 48982 ABS MONO 0.64 10e9/L 011 Unknown COMPLETE BLOOD COUNT 93854 ABS EOS 0.35 10e9/L 011 Unknown COMPLETE BLOOD COUNT 77282 ABS BASO 0.01 10e9/L 011 Unknown COMPLETE BLOOD COUNT 25299 RDW-SD 43.5 fL 1 Unknown FREE T4 82673 FREE T4 1.39 NG/DL 08/29/2010 Unknown LIPID GROUP 34606 HDL TEST 52 MG/DL 08/29/2010 Unknown LIPID GROUP 35952 TRIG 110 MG/DL 08/29/2010 Unknown LIPID GROUP 68150 TEST LDL 109 MG/DL 08/29/2010 Unknown LIPID GROUP 18306 CHOL 183 MG/DL 08/29/2010 Unknown LIPID GROUP 90764 RCHOL/HDL 3.52 RATIO 08/29/2010 Unknow n PSA EQUIMOLAR NITHIN 05268 PSA EQ 1.14 NG/ML 1 Unknown GFR CALC 3706560 GFR AA >60 ML/MIN 08/29/2010 Unknown GFR CALC 5209264 GFR NON-AA >60 ML/MIN 08/29/2010 Unknown COMPREHENSIVE METABOLIC 33609 AST 23 U/L 2010 Unknown COMPREHENSIVE METABOLIC 46084 ALT 19 IU/L 2010 Unknown COMPREHENSIVE METABOLIC 65398 BUN 12 MG/DL 2010 Unknown COMPREHENSIVE METABOLIC 34913 ALBUMIN 4.9 GM/DL 2010 Unknown COMPREHENSIVE METABOLIC 84472 CHLORIDE 95 MMOL/L 2010 Unknown COMPREHENSIVE METABOLIC 35646 BILI TOT 0.4 MG/DL 2010 Unknown COMPREHENSIVE METABOLIC 76686 ALK PHOS 59 U/L 2010 Unknown COMPREHENSIVE METABOLIC 27540 SODIUM 132 MMOL/L 08/29 Unknown COMPREHENSIVE METABOLIC 65231 CREATININE 0.96 MG/DL 08/2010 Unknown COMPREHENSIVE METABOLIC 03426 CALCIUM 10.6 MG/DL 08/29 Unknown COMPREHENSIVE METABOLIC 17997 POTASSIUM 4.0 MMOL/L 08/29 Unknown COMPREHENSIVE METABOLIC 33592 PROT TOT 8.0 GM/DL 2010 Unknown COMPREHENSIVE METABOLIC 27885 Glucose 105 MG/DL 2010 Unknown COMPREHENSIVE METABOLIC 13889 BICARB 22 MMOL/L 2010 Unknown COMPREHENSIVE METABOLIC 93626 ANION GAP 15 MEQ/L 2010 Unknown URIC ACID 17833 URIC ACID 6.7 MG/DL 12/12/2009 Unknown Procedures Procedure Codes Date ROUTINE VENIPUNCTURE CPT-4: 61006 04/18/2020 COMPREHEN METABOLIC PANEL CPT-4: 45034 04/18/2020 LIPID PANEL CPT-4: 15468 04/18/2020 A1C HPLC CPT-4: 60088 04/18/2020 PPPS, subseq visit CPT-4: G0439 10/12/2019 ROUTINE VENIPUNCTURE CPT-4: 19416 01/29/2018 COMPREHEN METABOLIC PANEL CPT-4: 98602 01/29/2018 LIPID PANEL CPT-4: 66349 01/29/2018 A1C HPLC CPT-4: 06072 01/29/2018 HEPATITIS C AB TEST CPT-4: 13696 01/29/2018 ROUTINE VENIPUNCTURE CPT-4: 25240 05/01/2017 ASSAY THYROID STIM HORMONE CPT-4: 77710 05/01/2017 COMPREHEN METABOLIC PANEL CPT-4: 74699 05/01/2017 COMPLETE CBC W/AUTO DIFF WBC CPT-4: 43260 05/01/2017 LIPID PANEL CPT-4: 72397 05/01/2017 A1C HPLC CPT-4: 02239 05/01/2017 ASSAY OF PSA TOTAL CPT-4: 87449 05/01/2017 ROUTINE VENIPUNCTURE CPT-4: 29426 01/04/2016 ASSAY OF FREE THYROXINE CPT-4: 98474 01/04/2016 ASSAY THYROID STIM HORMONE CPT-4: 27047 01/04/2016 COMPREHEN METABOLIC PANEL CPT-4: 56403 01/04/2016 COMPLETE CBC W/AUTO DIFF WBC CPT-4: 78171 01/04/2016 LIPID PANEL CPT-4: 97439 01/04/2016 ASSAY OF PSA TOTAL CPT-4: 44474 01/04/2016 A1C HPLC CPT-4: 56575 01/04/2016 ROUTINE VENIPUNCTURE CPT-4: 76090 02/02/2015 ASSAY OF FREE THYROXINE CPT-4: 61202 02/02/2015 ASSAY THYROID STIM HORMONE CPT-4: 89968 02/02/2015 COMPREHEN METABOLIC PANEL CPT-4: 84919 02/02/2015 COMPLETE CBC W/AUTO DIFF WBC CPT-4: 53581 02/02/2015 LIPID PANEL CPT-4: 68845 02/02/2015 ASSAY OF PSA TOTAL CPT-4: 74882 02/02/2015 A1C HPLC CPT-4: 78796 02/02/2015 THER/PROPH/DIAG INJ SC/IM CPT-4: 01024 07/19/2014 METHYLPREDNISOLONE 40 MG INJ CPT-4: J1030 07/19/2014 TRIAMCINOLONE ACET INJ NOS CPT-4: J3301 07/19/2014 ROUTINE VENIPUNCTURE CPT-4: 91570 06/14/2014 ASSAY OF FREE THYROXINE CPT-4: 74360 06/14/2014 ASSAY THYROID STIM HORMONE CPT-4: 07914 06/14/2014 COMPREHEN METABOLIC PANEL CPT-4: 38686 06/14/2014 COMPLETE CBC W/AUTO DIFF WBC CPT-4: 54000 06/14/2014 A1C HPLC CPT-4: 43119 06/14/2014 VITAMIN B 12 FOLIC ACID CPT-4: 52766|50519 06/14/2014 RBC SED RATE AUTOMATED CPT-4: 76037 06/14/2014 RHEUMATOID FACTOR QUANT CPT-4: 20216 06/14/2014 ANTINUCLEAR ANTIBODIES CPT-4: 66712 06/14/2014 ANTISTREPTOLYSIN O TITER CPT-4: 33861 06/14/2014 ASSAY OF BLOOD/URIC ACID CPT-4: 67823 06/14/2014 C-REACTIVE PROTEIN CPT-4: 73741 06/14/2014 ROUTINE VENIPUNCTURE CPT-4: 74828 03/09/2014 COMPREHEN METABOLIC PANEL CPT-4: 30763 03/09/2014 A1C HPLC CPT-4: 71760 03/09/2014 ROUTINE VENIPUNCTURE CPT-4: 10616 11/18/2013 ASSAY OF FREE THYROXINE CPT-4: 44712 11/18/2013 ASSAY THYROID STIM HORMONE CPT-4: 34930 11/18/2013 COMPREHEN METABOLIC PANEL CPT-4: 18802 11/18/2013 COMPLETE CBC W/AUTO DIFF WBC CPT-4: 20169 11/18/2013 LIPID PANEL CPT-4: 57987 11/18/2013 ASSAY OF PSA TOTAL CPT-4: 57713 11/18/2013 A1C HPLC CPT-4: 17119 11/18/2013 REMOVE FOREIGN BODY CPT-4: 35223 11/09/2013 OCCULT BLOOD FECES CPT-4: 35755 11/09/2013 THER/PROPH/DIAG INJ SC/IM CPT-4: 14384 11/24/2012 VITAMIN B12 INJECTION CPT-4: J3420 11/24/2012 COMPREHEN METABOLIC PANEL CPT-4: 11472 11/03/2012 COMPLETE CBC W/AUTO DIFF WBC CPT-4: 15194 11/03/2012 ASSAY THYROID STIM HORMONE CPT-4: 31433 11/03/2012 ASSAY OF BLOOD/URIC ACID CPT-4: 90231 11/03/2012 ROUTINE VENIPUNCTURE CPT-4: 10452 11/03/2012 ROUTINE VENIPUNCTURE CPT-4: 63629 02/25/2012 COMPREHEN METABOLIC PANEL CPT-4: 55441 02/25/2012 COMPLETE CBC W/AUTO DIFF WBC CPT-4: 30319 02/25/2012 HERPE1/2MG CPT-4: 04215|13678|06964 02/25/2012 THER/PROPH/DIAG INJ SC/IM CPT-4: 83887 09/24/2011 VITAMIN B12 INJECTION CPT-4: J3420 09/24/2011 CEFTRIAXONE SODIUM INJECTION CPT-4: J0696 09/24/2011 THER/PROPH/DIAG INJ SC/IM CPT-4: 62712 09/24/2011 ROUTINE VENIPUNCTURE CPT-4: 40873 09/17/2011 COMPREHEN METABOLIC PANEL CPT-4: 52487 09/17/2011 COMPLETE CBC W/AUTO DIFF WBC CPT-4: 87823 09/17/2011 LIPID PANEL CPT-4: 89513 09/17/2011 VITAMIN B 12 FOLIC ACID CPT-4: 40361|22287 09/17/2011 A1C GLYCOSYLATED HEMOGLOBIN TEST CPT-4: 34498 012 ROUTINE VENIPUNCTURE CPT-4: 96350 08/29/2010 COMPLETE CBC W/AUTO DIFF WBC CPT-4: 86840 08/29/2010 COMPREHEN METABOLIC PANEL CPT-4: 95456 08/29/2010 LIPID PANEL CPT-4: 72847 08/29/2010 ASSAY THYROID STIM HORMONE CPT-4: 68906 08/29/2010 ASSAY OF FREE THYROXINE CPT-4: 86655 08/29/2010 ASSAY OF PSA TOTAL CPT-4: 18191 08/29/2010 THER/PROPH/DIAG INJ SC/IM CPT-4: 88588 12/12/2009 VITAMIN B12 INJECTION CPT-4: J3420 12/12/2009 ROUTINE VENIPUNCTURE CPT-4: 94776 12/12/2009 ASSAY OF BLOOD/URIC ACID CPT-4: 90175 12/12/2009 THER/PROPH/DIAG INJ SC/IM CPT-4: 36417 10/30/2009 VITAMIN B12 INJECTION CPT-4: J3420 10/30/2009 THER/PROPH/DIAG INJ SC/IM CPT-4: 89347 10/01/2009 VITAMIN B12 INJECTION CPT-4: J3420 10/01/2009 THER/PROPH/DIAG INJ SC/IM CPT-4: 94203 10/01/2009 CEFTRIAXONE SODIUM INJECTION CPT-4: J0696 10/01/2009 [...] 97.3 (F) We ight: 149 lbs Code: 28600-0 10/19/2020 Blood Pressure 1: 121/87 Code: 8480-6 Heart Rate 1: 100 bpm Respiratory Rate: 16 bpm SpO2: 96% Temperature: 36.3 (C) / 97.3 (F) We ight: 149 lbs Code: 42592-6 10/01/2020 Blood Pressure 1: 140/84 Code: 8480-6 Heart Rate 1: 100 bpm Respiratory Rate: 18 bpm SpO2: 96% Temperature: 36.6 (C) / 97.9 (F) We ight: 147 lbs Code: 08307-1 09/24/2020 Blood Pressure 1: 112/70 Code: 8480-6 [...] 98.1 (F) We ight: 152 lbs Code: 59372-3 09/12/2020 Blood Pressure 1: 133/70 Code: 8480-6 Heart Rate 1: 100 bpm Respiratory Rate: 16 bpm SpO2: 100% Temperature: 36.5 (C) / 97.7 (F) We ight: 152 lbs Code: 47626-7 04/18/2020 Blood Pressure 1: 144/78 Code: 8480-6 Heart Rate 1: 80 bpm Respiratory Rate: 16 bpm SpO2: 98% Temperature: 36.4 (C) / 97.5 (F) We ight: 160 lbs Code: 16740-0 10/12/2019 Blood Pressure 1: 124/78 Code: 8480-6 BMI: 24.8 Code: 90965-1 Heart Rate 1: 76 bpm Height: 5'8" Code: 8302-2 Respiratory Rate: 20 bpm SpO2: 98% Temperature: 36.6 (C) / 97.9 (F) Weight: 163 lbs Code: 16727-2 04/25/2019 Blood Pressure 1: 140/86 Code: 8480-6 BMI: 24.3 Code: 16766-2 Heart Rate 1: 92 bpm Height: 5'8" Code: 8302-2 Respiratory Rate: 20 bpm SpO2: 98% Temperature: 36.8 (C) / 98.3 (F) Weight: 160 lbs Code: 71768-6 04/12/2019 Blood Pressure 1: 146/86 Code: 8480-6 BMI: 25.4 Code: 98670-4 Heart Rate 1: 88 bpm Height: 5'8" Code: 8302-2 Respiratory Rate: 20 bpm SpO2: 98% Temperature: 36.5 (C) / 97.7 (F) Weight: 167 lbs Code: 95279-7 02/17/2018 Blood Pressure 1: 114/62 Code: 8480-6 Bl ood Pressure 2: 116/70 Code: 8480-6 BMI: 24.9 Code: 84059-3 Heart Rate 1: 76 bpm Height: 5'8" Code: 8302-2 Respiratory Rate: 20 bpm SpO2: 97% Temperature: 36.7 (C) / 98.0 (F) We ight: 164 lbs Code: 28706-8 04/07/2017 Blood Pressure 1: 122/84 Code: 8480-6 BMI: 24.3 Code: 12779-8 Heart Rate 1: 72 bpm Height: 5'8" Code: 8302-2 Respiratory Rate: 20 bpm SpO2: 96% Temperature: 36.9 (C) / 98.4 (F) Weight: 160 lbs Code: 79185-1 09/19/2016 Blood Pressure 1: 124/76 Code: 8480-6 BMI: 24.6 Code: 08365-7 Heart Rate 1: 68 bpm Height: 5'8" Code: 8302-2 Respiratory Rate: 20 bpm SpO2: 96% Temperature: 36.6 (C) / 97.9 (F) Weight: 162 lbs Code: 57076-9 12/18/2015 Blood Pressure 1: 136/70 Code: 8480-6 BMI: 24.3 Code: 75485-7 Heart Rate 1: 84 bpm Height: 5'8" Code: 8302-2 Respiratory Rate: 20 bpm Temperatu re: 36.5 (C) / 97.7 (F) Weight: 160 lbs Code: 53666-0 07/20/2015 Blood Pressure 1: 140/84 Code: 8480-6 BMI: 24.9 Code: 55871-0 Heart Rate 1: 76 bpm Height: 5'8" Code: 8302-2 Respiratory Rate: 20 bpm Temperatu re: 36.6 (C) / 97.9 (F) Weight: 164 lbs Code: 50631-9 02/07/2015 Blood Pressure 1: 164/82 Code: 8480-6 BMI: 25.5 Code: 84801-1 Heart Rate 1: 78 bpm Height: 5'8" Code: 8302-2 Respiratory Rate: 20 bpm Temperatu re: 36.5 (C) / 97.7 (F) Weight: 168 lbs Code: 97410-5 07/19/2014 Blood Pressure 1: 136/94 Code: 8480-6 BMI: 24.8 Code: 81251-8 Heart Rate 1: 88 bpm Height: 5'8" Code: 8302-2 Respiratory Rate: 20 bpm Temperatu re: 36.8 (C) / 98.2 (F) Weight: 163 lbs Code: 96899-5 07/06/2014 Blood Pressure 1: 136/92 Code: 8480-6 BMI: 24.2 Code: 45498-2 Heart Rate 1: 88 bpm Height: 5'8" Code: 8302-2 Respiratory Rate: 20 bpm Temperatu re: 36.9 (C) / 98.4 (F) Weight: 159 lbs Code: 79408-8 07/04/2014 Blood Pressure 1: 116/84 Code: 8480-6 Bl ood Pressure 2: 108/82 Code: 8480-6 Heart Rate 1: 88 bpm Respiratory Rate: 20 bpm Temperature: 3 6.7 (C) / 98.0 (F) Weight: 159 lbs Code: 06342-4 06/14/2014 Blood Pressure 1: 132/90 Code: 8480-6 BMI: 24.6 Code: 37420-5 Heart Rate 1: 100 bpm Height: 5'8" Code: 8302-2 Respiratory Rate: 20 bpm Temperatu re: 37.2 (C) / 99.0 (F) Weight: 162 lbs Code: 81717-7 03/09/2014 Blood Pressure 1: 122/62 Code: 8480-6 BMI: 25.4 Code: 63289-1 Heart Rate 1: 84 bpm Height: 5'8" Code: 8302-2 Respiratory Rate: 20 bpm Temperatu re: 36.6 (C) / 97.8 (F) Weight: 167 lbs Code: 57491-6 01/05/2014 Blood Pressure 1: 124/82 Code: 8480-6 BMI: 25.4 Code: 53042-9 Heart Rate 1: 84 bpm Height: 5'8" Code: 8302-2 Respiratory Rate: 20 bpm Temperatu re: 36.7 (C) / 98.0 (F) Weight: 167 lbs Code: 12458-9 11/09/2013 Blood Pressure 1: 138/82 Code: 8480-6 BMI: 24.5 Code: 69326-4 Heart Rate 1: 84 bpm Height: 5'8" Code: 8302-2 Respiratory Rate: 20 bpm Temperatu re: 37.1 (C) / 98.8 (F) Weight: 161 lbs Code: 28624-2 11/24/2012 Blood Pressure 1: 122/72 Code: 8480-6 BMI: 24.0 Code: 70743-1 Heart Rate 1: 66 bpm Height: 5'8" Code: 8302-2 Respiratory Rate: 20 bpm Temperatu re: 36.5 (C) / 97.7 (F) Weight: 158 lbs Code: 46328-9 11/03/2012 Blood Pressure 1: 130/84 Code: 8480-6 BMI: 23.7 Code: 73193-5 Heart Rate 1: 72 bpm Height: 5'8" Code: 8302-2 Respiratory Rate: 20 bpm Temperatu re: 36.2 (C) / 97.1 (F) Weight: 156 lbs Code: 38742-4 02/25/2012 Blood Pressure 1: 142/84 Code: 8480-6 BMI: 25.1 Code: 71999-0 Heart Rate 1: 68 bpm Height: 5'8" Code: 8302-2 Temperature: 37.2 (C) / 99.0 (F) Weight: 165 lbs Code: 79967-0 10/08/2011 Blood Pressure 1: 126/80 Code: 8480-6 BMI: 24.3 Code: 02723-6 Heart Rate 1: 84 bpm Height: 5'8" Code: 8302-2 Respiratory Rate: 20 bpm Temperatu re: 36.8 (C) / 98.2 (F) Weight: 160 lbs Code: 58652-3 09/24/2011 Blood Pressure 1: 136/80 Code: 8480-6 BMI: 24.3 Code: 11643-7 Heart Rate 1: 84 bpm Height: 5'8" Code: 8302-2 Respiratory Rate: 20 bpm Temperatu re: 36.8 (C) / 98.2 (F) Weight: 160 lbs Code: 20257-1 09/17/2011 Blood Pressure 1: 128/84 Cod e: 8480-6 09/09/2011 Blood Pressure 1: 142/84 Code: 8480-6 BMI: 24.3 Code: 06555-5 Height: 5'8" Code: 8302-2 Temperature: 36.7 (C) / 98.0 (F) Weight: 160 lbs Code : 10404-6 08/29/2010 Blood Pressure 1: 144/84 Code: 8480-6 Heart Rate 1: 72 bpm Temperature: 36.8 (C) / 98.2 (F) Weight: 156 lbs Code: 83082-8 12/12/2009 Blood Pressure 1: 146/88 Code: 8480-6 Heart Rate 1: 76 bpm Temperature: 36.6 (C) / 97.9 (F) Weight: 152 lbs Code: 96075-0 10/30/2009 Blood Pressure 1: 132/70 Code: 8480-6 Heart Rate 1: 80 bpm Temperature: 36.9 (C) / 98.4 (F) Weight: 151 lbs Code: 82874-0 10/01/2009 Blood Pressure 1: 142/86 Code: 8480-6 BMI: 23.0 Code: 72179-9 Heart Rate 1: 84 bpm Height: 5'8" Code: 8302-2 Temperature: 36.9 (C) / 98.4 (F) Weight: 151 lbs Code: 52877-0 Functional Status No Functional Status data Reason [...] follow up 04/25/2019 follow up 04/12/2019 from [facility] Care well man exam (40-65 years) [...] 10/01/2009 establishing vis it, being treated for [place] Spotted Fever Encounters Encounter Performer Location Codes Date () OFFICE/OUTPATIENT VISIT EST Diagnosis: Pulmonary nodules[ICD10: R91.8] Diagnosis: Supraclavicular adenopathy[ICD10: R59.0] Diagnosis: Thrombocytopenia[ICD10: D69.6] Estephanie Dyan GALARZA S . THIAGO [facility] CPT-4: 17608 10/26/2020 ([id number]) OFFICE/OUTPATIENT VISIT EST Diagnosis: Mass of left lung[ICD10: R91.8] Diagnosis: Supraclavicular adenopathy[ICD10: R59.0] Diagnosis: On anticoagulant therapy[ICD10: Z79.01] Diagnosis: Other acute pulmonary embolism without acute cor pulmonale[ICD10: I26.99] Diagnosis: Lymphadenopathy[ICD10: R59.1] Diagnosis: Thrombocytopenia[ICD10: D69.6] Diagnosis: Pericardial effusion[ICD10: I31.3] [facility]: 33390 10/22/2020 ([id number]) OFFICE/OUTPATIENT VISIT EST Diagnosis: Supraclavicular adenopathy[ICD10: R59.0] Diagnosis: Difficulty swallowing[ICD10: R13.10] Estephanie Dyan [facility] [employer] CPT-4: 54275 10/19/2020 ([id number]) OFFICE/OUTPATIENT VISIT EST Diagnosis: On anticoagulant therapy[ICD10: Z79.01] Diagnosis: Acute deep vein thrombosis (DVT) of femoral vein of right lower extremity[ICD10: I82.411] E[facility]phanie [facility] : 35669 10/01/2020 ([id number]) OFFICE/OUTPATIENT VISIT EST Diagnosis: Right leg DVT[ICD10: I82.401] Tracie [facility]: 29766 09/24/2020 ([id number]) OFFICE/OUTPATIENT VISIT EST Diagnosis: Acute deep vein thrombosis (DVT) of femoral vein of right lower extremity[ICD10: I82.411] Diagnosis: On anticoagulant therapy[ICD10: Z79.01] Estephanie Dyan [facility] CPT-[facility]: 24420 09/17/2020 ([id number]) OFFICE/OUTPATIENT VISIT EST Diagnosis: Acute deep vein thrombosis (DVT) of femoral vein of right lower extremity[ICD10: I82.411] Estephanie OconnorClark THIAGO [facility] CPT-4 : 73849 09/14/2020 ([id number]) OFFICE/OUTPATIENT VISIT EST Diagnosis: Fall down stairs, initial encounter[ICD10: W10.8XXA] Diagnosis: Right leg swelling[ICD10: M79.89] Diagnosis: Right leg pain[ICD10: M79.604] Estephanie Oconnor Clark [facility] CPT-4: 53510 09/12/2020 ([id number]) OFFICE/OUTPATIENT VISIT EST Diagnosis: Hypertension[ICD10: I10] Diagnosis: Hyperglycemia, unspecified[ICD10: R73.9] Diagnosis: Mixed hyperlipidemia[ICD10: E78.2] Tracie MOHAN ElvinClark THIAGO [employer] [facility] CPT-4: 45206 04/18/2020 ([id number]) OFFICE/OUTPATIENT VISIT EST 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] Diagnosis: Cat scratch[ICD10: W55.03XA] Diagnosis: Hypertension[ICD10: I10] Diagnosis: Pulmonary nodules[ICD10: R91.8] Tracie Nikhilwaleska GALARZA ElvinClark THIAGO [employer] [facility] CPT-4: 38914 04/25/2019 ([id number]) OFFICE/OUTPATIENT VISIT EST 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] Diagnosis: Dysphagia[ICD10: R13.10] Tracie GALARZA ElvinClark HOOD CHARLENE [employer] [facility] CPT-4: 27821 04/12/2019 ([id number]) PER PM REEVAL EST PAT 65+ YR Diagnosis: Encounter for general adult medical examination without abnormal findings[ICD10: Z00.00] Diagnosis: Essential (primary) hypertension[ICD10: I10] Diagnosis: Hyperglycemia, unspecified[ICD10: R73.9] Trcaie GALARZA ElvinClark THIAGO [employer] [facility] CPT-4: 21504 02/17/2018 ([id number]) NURSE/OUTPATIENT VISIT EST Diagnosis: Essential (primary) hypertension[ICD10: I10] Diagnosis: Mixed hyperlipidemia[ICD10: E78.2] Diagnosis: Hyperglycemia, unspecified[ICD10: R73.9] Diagnosis: Encounter for screening for other viral diseases[ICD10: Z11.59] Tracie Howard NIKHILWALESKA [employer] CPT-4: 92199 01/29/2018 ([id number]) OFFICE/OUTPATIENT VISIT EST Diagnosis: Encounter for general adult medical examination without abnormal findings[ICD10: Z00.00] Diagnosis: Mixed hyperlipidemia[ICD10: E78.2] Diagnosis: Essential (primary) hypertension[ICD10: I10] Diagnosis: Impaired fasting glucose[ICD10: R73.01] Diagnosis: Encounter for screening for malignant neoplasm of prostate[ICD10: Z12.5] Tracie Howard NIKHILWALESKA [employer] CPT-4: 95541 05/01/2017 ([id number]) OFFICE/OUTPATIENT VISIT EST Diagnosis: URI, ACUTE[ICD10: J06.9] Tracie CHANG [employer] CPT-4: 44627 04/07/2017 OFFICE/OUTPATIENT VISIT EST Diagnosis: Essential (primary) hypertension[ICD10: I10] Ashley Howard NI[facility] [employer] CPT-4: 62174 09/19/2016 ([id number]) OFFICE/OUTPATIENT VISIT EST Diagnosis: Encounter for general adult medical examination without abnormal findings[ICD10: Z00.00] Diagnosis: Essential (primary) hypertension[ICD10: I10] Diagnosis: Impaired fasting glucose[ICD10: R73.01] Tracie Howard NIKHILWALESKA [employer] CPT-4: 95527 01/04/2016 ([id number]) OFFICE/OUTPATIENT VISIT EST Diagnosis: Essential (primary) hypertension[ICD10: I10] Diagnosis: Mixed hyperlipidemia[ICD10: E78.2] Diagnosis: Impaired fasting glucose[ICD10: R73.01] Tracie Howard NIKHILWALESKA [employer] CPT-4: 89237 12/18/2015 ([id number]) PREV VISIT EST AGE 40-64 Diagnosis: Encounter for general adult medical examination without abnormal findings[ICD10: Z00.00] Diagnosis: Essential (primary) hypertension[ICD10: I10] [facility] C[facility]: 82952 07/20/2015 OFFICE/OUTPATIENT VISIT EST Diagnosis: Mixed hyperlipidemia[ICD10: E78.2] Diagnosis: Impaired fasting glucose[ICD10: R73.01] Diagnosis: Insomnia, unspecified[ICD10: G47.00] Jacque MongeSharonjorge luis DURAN KAMALJIT Lee [facility] CPT-4: 79904 02/07/2015 ([id number]) OFFICE/OUTPATIENT VISIT EST Diagnosis: Encounter for general adult medical examination without abnormal findings[ICD10: Z00.00] Diagnosis: Essential (primary) hypertension[ICD10: I10] Diagnosis: Mixed hyperlipidemia[ICD10: E78.2] Tracie MOHAN Lee [facility] CPT-4: 23495 02/02/2015 ([id number]) OFFICE/OUTPATIENT VISIT EST Diagnosis: SINUSITIS, ACUTE[ICD9: 461.9] Jacque MongeSharonjorge luis TRACIE [facility] CPT-4: 53128 07/19/2014 ([id number]) OFFICE/OUTPATIENT VISIT EST Diagnosis: Hypotension[ICD9: 458.9] Diagnosis: DYSPEPSIA[ICD9: 536.8] Diagnosis: HYPERTENSION[ICD9: 401.9] Tracie GALARZA ElvinClark [facility] CPT-[facility]: 54212 07/06/2014 ([id number]) OFFICE/OUTPATIENT VISIT EST Diagnosis: DIZZINESS/VERTIGO[ICD9: 780.4] Diagnosis: HYPOTENSION[ICD9: 458.9] Diagnosis: MALAISE AND FATIGUE[ICD9: 780.79] Tracie Murillo [facility]ark [facility] CPT-4: 17387 07/04/2014 ([id number]) OFFICE/OUTPATIENT VISIT EST Diagnosis: ARTHRALGIA-MULTIPLE SITES[ICD9: 719.49] Diagnosis: CEPHALGIA[ICD9: 784.0] Diagnosis: Uveitis[ICD9: 364.3] Tracie GALARZA ElvinClark [facility] CPT-4: 91261 06/14/2014 ([id number]) OFFICE/OUTPATIENT VISIT EST Diagnosis: HYPERTENSION[ICD9: 401.9] Diagnosis: OTHER ABNORMAL GLUCOSE[ICD9: 790.29] Tracie KEYES DO [facility] CPT-4: 48564 03/09/2014 ([id number]) OFFICE/OUTPATIENT VISIT EST Diagnosis: OTHER ABNORMAL GLUCOSE[ICD9: 790.29] Tracie KEYES DO [facility] CPT-4: 86540 01/05/2014 ([id number]) OFFICE/OUTPATIENT VISIT EST Diagnosis: ROUTINE MEDICAL EXAM[ICD9: V70.0] Tracie KEYES [facility] CPT-4: 13833 11/18/2013 ([id number]) PREV VISIT EST AGE 40-64 Diagnosis: ROUTINE MEDICAL EXAM[ICD9: V70.0] Diagnosis: HYPERLIPIDEMIA NEC/NOS[ICD9: 272.4] Diagnosis: FOREIGN BODY FINGER[ICD9: 915.6] Tracie KEYES [facility] CPT-4: 67876 11/09/2013 ([id number]) OFFICE/OUTPATIENT VISIT EST Diagnosis: CERVICALGIA[ICD9: 723.1] Diagnosis: B12 DEFIC ANEMIA NEC[ICD9: 281.1] Diagnosis: DISTURBANCE OF SKIN SENSATION (Paresthesia)[ICD9: 782.0] Tracie KEYES [facility] CPT-4: 38767 11/24/2012 OFFICE/OUTPATIENT VISIT EST Diagnosis: Neck pain on left side[ICD9: 723.1] Diagnosis: Tendonitis of elbow, left[ICD9: 727.09] Jacque Lopez TRACIE KEYES [facility] CPT-4: 02757 11/03/2012 OFFICE/OUTPATIENT VISIT EST Diagnosis: Oral lesion[ICD9: 528.9] Diagnosis: Herpes zoster[ICD9: 053.9] Diagnosis: FEBRILE ILLNESS[ICD9: 780.60] Liz Randall TRACIE KEYES [facility] CPT-4: 70327 02/25/2012 OFFICE/OUTPATIENT VISIT EST Diagnosis: MALAISE AND FATIGUE[ICD9: 780.79] Diagnosis: B12 DEFIC ANEMIA NEC[ICD9: 281.1] Diagnosis: SPOTTED FEVERS[ICD9: 082.0] Diagnosis: SPASM OF MUSCLE[ICD9: 728.85] Tracie OBRIENER DO [facility] CPT-4: 34986 10/08/2011 ([id number]) OFFICE/OUTPATIENT VISIT EST Diagnosis: MALAISE AND FATIGUE[ICD9: 780.79] Diagnosis: SPOTTED FEVERS[ICD9: 082.0] Diagnosis: B12 DEFIC ANEMIA NEC[ICD9: 281.1] Tracie CALVONDER DO [facility] CPT-4: 65197 09/24/2011 ([id number]) OFFICE/OUTPATIENT VISIT EST Diagnosis: B12 DEFIC ANEMIA NEC[ICD9: 281.1] Diagnosis: HYPERTENSION[ICD9: 401.9] Diagnosis: MALAISE AND FATIGUE[ICD9: 780.79] Diagnosis: OTHER ABNORMAL GLUCOSE[ICD9: 790.29] Tracie CALVONDER DO [facility] CPT-4: 03363 09/17/2011 OFFICE/OUTPATIENT VISIT EST Diagnosis: NONVENOM ARTHROPOD BITE[ICD9: E906.4] Diagnosis: HYPERTENSION[ICD9: 401.9] Tracie CALVO NDER DO [facility] CPT-4: 77470 09/09/2011 PREV VISIT EST AGE 40-64 Tracie WELCH R DO [facility] CPT-4: 96794 08/29/2010 ([id number]) OFFICE/OUTPATIENT VISIT, EST Tracie CHAVEZ SClark CALVONDER DO [facility] CPT-4: 32320 12/12/2009 ([id number]) OFFICE/OUTPATIENT VISIT, EST Tracie CHAVEZ S. ORENDER DO [facility] CPT-4: 81994 10/30/2009 ([id number]) OFFICE/OUTPATIENT VISIT, NEW Tracie CHAVEZ SClark ORENDER DO [facility] CPT-4: 28720 10/01/2009 Plan of Care Planned Activity Notes Codes Status Date Visit Diagnosis Plan: Pulmonary nodules Discussion: PE T scan results not available at time of visit- request sent to [facility]. Will call patient with results. Discussed [...] 10/22/2020 Appointment: Estephanie Zaidi WPtel: [phone] [facility] US FOLLOW UP 10/22/2020 Patient Education: Patient Medication Summary Completed 10/22/2020 Care Plan: CT SOFT TISSUE NECK W/O DYE L OINC : 41581-7 Pending 10/22/2020 Visit Diagnosis Plan: Supraclavicular adenopathy Discu ssion: Will send for stat CT neck chest with contrast and labs at [facility] ICD-9 : 785.6 ICD-10 : R59.0 10/19/2020 App[facility]ment[facility] [phone] [facility] [facility] 10/19/2020 Patient Education: [...] 10/01/2020 Appointment: [facility] [phone] [facility] [facility] 10/01/2020 Patient Education: [...] I82.401 09/24/2020 Appointment: Tracie Keyes WPtel: [phone] [facility] FOLLOW UP 09/24/2020 Visit Diagnosis [...] extremity Discussion: Swelling decreasing. F/U 1 w [place] for recheck. ICD-9 : 453.41 ICD-10 : I82.411 09/17/2020 Appointment: Estephanie Zaidi WPtel: [phone] [facility] FOLLOW UP 09/17/2020 Patient Education: Patient Medication Summary Completed 09/17/2020 Patient Education: Eliquis- [employer] Coupon [id number] https://www.ICVRx/iRewardChart/resources/getResource/61/f22khodw-4wyh-134d-89 Completed 09/17/2020 Patient Education: tramadol- [employer] Coupon [id number] https://www.ICVRx/iRewardChart/resources/getResource/61/qsj75601-[email or web address] Completed 09/17/2020 Visit Diagnosis Plan: Acute deep [...] I82.411 09/14/2020 Appointment: Estephanie Zaidi WPtel: [phone] [facility] FOLLOW UP 09/14/2020 Patient Education: Patient Medication Summary Completed 09/14/2020 Visit Diagnosis Plan: Right leg swelling Discussion: W ill send to [facility] now for stat doppler to r/o DVT d/t swelling and pain and f/u with results. ICD-9 : 729.81 ICD-10 : M79.89 09/12/2020 Appointment: Estephanie Zaidi WPtel: [phone] [facility] ACUTE ILLNESS 09/12/2020 Patient Education: Patient Medication [...] : R73.9 04/18/2020 Appointment: Tracie Keyes WPtel: [address] [place], [place] [phone] FOLLOW UP 04/18/2020 Patient Education: lisinopril- [employer] Coupon [id number] https://www.iRewardChart.Bundlr/samplemd/resources/getResource/61/989041of-vopu-[email or web address] Completed 04/18/2020 Visit Diagnosis Plan: Essential (primary) hypertension Discussion: Stable on lisinopril ICD-9 : 401.9 ICD-10 : I10 10/12/2019 Visit Diagnosis Plan: Encounter for [facility] adult medical examination without abnormal findings Discussion: Mediterranean diet Combinati on of cardio and weight bearing exercise Will return for fasting lab next week ICD-9 : V70.0 ICD-10 : Z00.00 10/12/2019 Visit Diagnosis Plan: Hyperglycemia, unspecified Discu ssion: Will return for HbA1C next week ICD-9 : 790.29 ICD-10 : R73.9 10/12/2019 Appointment: Tracie Keyes WPtel: [address] [place], [place] [phone] INSIDE Annual Well Visit 10/12/2019 Appointment: Viridiana Lima [address] FOLLOW UP 05/16/2019 Visit Diagnosis Plan: [...] : W55.03XA 04/25/2019 Appointment: Tracie Keyes WPtel: [address] [place], [place] [phone] Hospital Follow Up 04/25/2019 Patient Education: nystatin- [employer] Coupon [id number] https://www.iRewardChart.com/samplemd/resources/getResource/61/[email or web address] Completed 04/25/2019 Visit Diagnosis Plan: Submandibular gland [...] : K11.1 04/12/2019 Appointment: Tracie Keyes WPtel: [address] [place], [place] [phone] 04/12/2019 Appointment: Tracie Keyes WPtel: [address] [place] [address] LM CANCELED 08/09/2018 Visit Diagnosis Plan: Essential (primary) hypertension Discussion: Stable ICD-9 : 401.9 ICD-10 : I10 02/17/2018 Visit Diagnosis Plan: Encounter for [facility] adult medical examination without abnormal findings Discussion: Lab discussed Refuses prosta te check Refuses colonoscopy Will check with pharmacy on Shingrix/Flu shot and Prevnar ICD-9 : V70.0 ICD-10 : Z00.00 02/17/2018 Visit Diagnosis Plan: Hyperglycemia, unspecified Discu ssion: Wants to focus on diet/exercise and recheck in 6mos ICD-9 : 790.29 ICD-10 : R73.9 02/17/2018 Appointment: Tracie Keyes WPtel: [address] [place] [address] Annual Well Visit 02/17/2018 Appointment: Tracie Keyes WPtel: [address] [place], [place] [phone] US LAB 01/29/2018 Appointment: Tracie Keyes WPtel: [address] [place], [place] [phone] US LAB 05/01/2017 Patient Education: Patient Medication [...] Rest, Fluids... 04/07/2017 Appointment: Tracie Keyes WPtel: [address] [place] [address] ACUTE ILLNESS 04/07/2017 Patient Education: Patient Medication Summary Completed 04/07/2017 Visit Plan: Had meds refilled for 6 joseph hs the other day. RTC 6 months Described s/s of heart disease that he would need to report for to us or ER/UC. 09/19/2016 App[facility]ment[facility] [phone] [facility] 09/18 lm`sl FOLLOW UP 09/19/2016 Patient Education: Patient Medication Summary Completed 09/19/2016 Appointment: Tracie Keyes WPtel: [phone] [place], [place] [id number] [place] LAB 01/04/2016 Patient Education: Patient Medication Summary Completed 01/04/2016 Visit Plan: Will get flu shot at work Up date fasting lab 12/18/2015 Appointment: Tracie Keyes WPtel: [phone] [place], [place] [phone] 12/16 lm~sl FOLLOW UP 12/18/2015 Patient Education: Patient Medication Summary Completed 12/18/2015 Visit Plan: Pt declined rectal/prostate exam. Encouraged to get colonoscopy Plan labs for fall 2015 Continue on current meds but send in home B/P since today's B/P is elevated to see if dosage change is indicated. RTC in 6 months 07/20/2015 Appointment: Ashley Crenshaw WPtel: [phone] [place], [place] [address] 07/18 lm ~sl Annual Well Visit 07/20/2015 Patient Education: Patient Medication Summary Completed 07/20/2015 Visit Plan: Resume BP med Resume Metform in( has been off > 9 months) Add HgbA1C to labs drawn last week, Trial of Selinor for sleep. Will let us know how he does with it. 02/07/2015 Appointment: Jac[facility] [phone] [facility] 02/06/15 vm cn....appt confirmed cn FOLLOW UP 02/07/2015 Patient Education: Patient Medication Summary Completed 02/07/2015 Patient Education: [facility] - Saving AutoInj - Lisinopril - 18-64 - Dynamic Portal ID Completed 02/07/2015 Appointment: Tracie Keyes WPtel: [address] [place] [address] LAB 02/02/2015 Patient Education: Patient Medication Summary Completed 02/02/2015 Appointment: Jacque Lopez WPtel: [address] [place] [address] ACUTE ILLNESS 07/19/2014 Patient Education: Patient Medication Summary Completed 07/19/2014 Visit Plan: Restart Diltiazem Continue t o hydrate Call in 3 days on how doing 07/06/2014 Appointment: Tracie Keyes WPtel: [address] [place] [address] 07/05 appt confirmed cn FOLLOW UP 07/07/19 Patient Education: Patient Medication Summary Completed 07/06/2014 Visit Plan: Hold lisinopril hct Hydrate Recheck 2 days Meclizine 25mg q HS Hold metformin Call in AM 07/04/2014 Appointment: Tracie Keyes WPtel: [address] [place] [address] FOLLOW UP 07/04/2014 Patient Education: Patient Medication Summary Completed 07/04/2014 Appointment: Tracie Keyes WPtel: [address] [place] [address] ACUTE ILLNESS 06/14/2014 Patient Education: Patient Medication Summary Completed 06/14/2014 Appointment: Tracie Keyes WPtel: [address] [place] [address] FOLLOW UP 03/09/2014 Patient Education: Patient Medication Summary Completed 03/09/2014 Visit Plan: Continue metformin at curren t dose Accuchecks daily alternating times Diabetic diet info given Check CMP with HbA1C in 2mos then fwup 01/05/2014 Appointment: Tracie Keyes WPtel: [address] [place], [place] [phone] FOLLOW UP 01/05/2014 Patient Education: Patient Medication Summary Completed 01/05/2014 Visit Plan: Did not need lab so will jus t fwup as scheduled 01/03/2014 Appointment: Tracie Keyes WPtel: [address] [place], [place] [phone] [place] LAB 01/03/2014 Patient Education: Patient Medication Summary Completed 01/03/2014 Appointment: Tracie Keyes WPtel: [address] [place], [place] [phone] US LAB 11/18/2013 Patient Education: Patient Medication Summary Completed 11/18/2013 Visit Plan: Continue current meds Remova l of splinter as above Keflex for 1 week Continue current meds Fwup next week for fasting lab including PSA 11/09/2013 Appointment: Tracie Keyes WPtel: [address] [place], [place] [phone] 11/08 Annual Well Visit 11/09/2013 Patient Education: Patient Medication Summary Completed 11/09/2013 Patient Education: [facility] - Saving [employer] - Lisinopril - 18+ - Dynamic Portal ID Completed 11/09/2013 Appointment: Tracie Keyes WPtel: [address] [place], [place] [phone] 11/23 left message FOLLOW UP 11/24/2012 Patient Education: Patient Medication Summary Completed 11/24/2012 Appointment: Jacque Lopez WPtel: [address] [place], [place] [phone] FOLLOW UP 11/10/2012 Appointment: Jacque Lopez WPtel: [address] [place], [place] [phone] ACUTE ILLNESS 11/03/2012 Patient Education: Patient Medication Summary Completed 11/03/2012 Appointment: Liz Randall WPtel: [address] [place], [place] [phone] ACUTE ILLNESS 02/25/2012 Patient Education: Patient Medication Summary Completed 02/25/2012 Visit Plan: Finish abx Continue B12 OMT done Add Skelaxin 800mg q HS 10/08/2011 Appointment: Tracie Keyes WPtel: [address] [place], [place] [phone] voicemail FOLLOW UP 10/08/2011 Patient Education: Patient Medication Summary Completed 10/08/2011 Appointment: Tracie Keyes WPtel: [address] [place], [place] [phone] FOLLOW UP 09/24/2011 Patient Education: Patient Medication Summary Completed 09/24/2011 Appointment: Tracie Keyes WPtel: [address] [place], [place] [phone] LAB 09/17/2011 Patient Education: Patient Medication Summary [...] labs. 09/09/2011 Appointment: Liz Randall WPtel: [address] [place], [place] [phone] ACUTE ILLNESS 09/09/2011 Patient Education: Patient Medication Summary Completed 09/09/2011 Visit Plan: Change lisinopril hct to 20/ 12.5mg 2 daily and continue cardizem Check fasting lab--drawn today 08/29/2010 Appointment: Tracie Keyes WPtel: [address] [place], [place] [phone] FOLLOW UP 08/29/2010 Patient Education: Patient Medication Summary Completed 08/29/2010 Appointment: Tracie Keyes WPtel: [address] [place], [place] [phone] [place] FOLLOW UP 12/12/2009 Patient Education: Patient Medication Summary Completed 12/12/2009 Appointment: Tracie Keyes WPtel: [phone] [place], [place] [phone] [place] FOLLOW UP 11/27/2009 Visit Plan: Finish Abx B12 given Start d aily 1000mcg B12 Cont allopurinol and check B12 and uric acid in 1mo. 10/30/2009 App[facility]ment: [facility] [phone] [facility] [place] 10/30/2009 Patient Education: Patient Medication Summary Completed 10/30/2009 App[facility]ment: [facility] [phone] [facility] [place] [place] NEW PATIENT 10/01/2009 Patient Education: Patient Medication Summary Completed 10/01/2009 Referral: Sav Olivo WPtel: [phone] [facility] [place] Referral Initiated Instructions Comment . [...]
--- OUTSIDE RECORDS SUMMARY | 2020-11-05 09:33 | XMS REPORT | CCD ---
Author Author Josh Keyes D.O. Organization [facility] Address [address] [place] [address] Phone Care Team Providers Care Club Attendant Name Role Phone Tracie Keyes D.O., PP Unavailable CCM Unavailable Summary Purpose Interface Exchange Insurance Providers Payer name Policy type / Coverage type Covered green party ID Effective Begin Date Effective End Date WPS MEDICARE PART B [place] Medicare Part B [id number] Unknown [facility] Medicare Part B [id number] 2019 Un known Family history Sister Diagnosis Age At Onset seizure disorder Unknown Father Diagnosis Age At Onset Diabetes mellitus Type 2 Unknown Mother Diagnosis Age At Onset Diabetes mellitus Type 2 Unknown Social History Social History Element Codes Description Effective Dates Tobacco history SNOMED CT: 02482279 Currently smokes tobacco Marital status Unknown 10/01/2009 [...] E906.4 09/09/2011 Active Hypertension Unknown 10/01/2009 Active [place] spotted fever Unknown 07/24/2009 Act [place]aco B12 DEFIC ANEMIA NEC ICD-9: 281.1 10/01/2009 Active Hyperuricemia ICD-9: 790.6 10/01/2009 Active Myalgia ICD-9: 729.1 10/01/2009 Active [place] spotted fever ICD-9: 082.0 10/01/2009 Act [place] Medications Medication Codes Instructions Start Date Stop Date Status Fill Instructions Eliquis 5 mg tablet RxNorm: 9051316 Take 1 Tablet(s) Oral two ti mes a day 09/19/2020 12/17/2020 Active tramadol 50 mg tablet RxNorm: 200210 Take 1 Tablet(s) O ral Q8H as needed for pain Take with 2 tylenol 09/17/2020 No Stop Date Active Eliquis 5 mg tablet RxNorm: 8121211 Take 2 Tablet(s) Oral two ti mes a day 09/17/2020 No Stop Date Active lisinopril 40 mg tablet RxNorm: 718037 1 Tablet(s) Oral QD repl aces 20mg dose 04/18/2020 10/15/2020 Inactive Men's Multivitamin 400 mcg-20 mcg-300 mcg tablet RxNorm: 1 Tablet(s) Oral QD 04/18/2020 No Stop Date Active lisinopril 20 mg tablet RxNorm: 545202 1 Tablet(s) Oral QD 03/29/19 21 04/17/2020 Inactive Due for his 6 month appointm ent lisinopril 20 mg tablet RxNorm: 977866 TAKE ONE (1) TAB LET BY MOUTH DAILY... Needs fwup 10/03/2019 11/02/2019 Inactive lisinopril 20 mg tablet RxNorm: 343542 TAKE ONE (1) TABLET BY M OUTH DAILY... 10/03/2019 10/02/2019 Inactive Zithromax 500 mg tablet RxNorm: 360542 1 Tablet(s) Oral QD 04/25/19 20 05/02/2019 Inactive [AttnRPh: Saving apply/adjud icate RxGRP:SG20 RxBIN:[id number] RxPCN: ID#:[id number]] lisinopril 20 mg tablet RxNorm: 567346 1 Tablet(s) Oral QD 04/25/19 20 10/02/2019 Inactive nystatin 100,000 unit/mL oral suspension RxNorm: 512757 5 Milliliter(s) Oral four times a day swish, gargle and spit 04/25/2019 05/09/2019 Inactive diltiazem ER (XR/XT) 120 mg capsule,extended release 2 4 hr, controlled RxNorm: 016548 Capsule(s) 1 Capsule(s) PO QD 06/10/2018 10/11/2019 Inactive [SAVINGS FOR UNINSURED PATIENTS -- BIN:902275, PCN: ASPROD1, Group: AME08, ID# [id number], Process claim through [employer]It[employer]uesact, for questions: . THIS IS NOT INSURANCE.] lisinopril 20 mg-hydrochlorothiazide 12.5 mg tablet RxNorm: 286356 1 Tablet(s) PO QAM 06/10/2018 10/11/2019 Inactive [AttnRPh: Saving apply/adjudicate RxGRP:SG20 RxBIN:[id number] RxPCN: ID#:[id number]] lisinopril 20 mg-hydrochlorothiazide 12.5 mg tablet RxNorm: 809368 1 Tablet(s) PO QAM 05/06/2017 01/30/2018 Inactive [AttnRPh: Saving apply/adjudicate RxGRP:SG20 RxBIN:[id number] RxPCN: ID#:[id number]] diltiazem ER (XR/XT) 120 mg capsule,extended release 2 4 hr, controlled RxNorm: 915628 Capsule(s) 1 Capsule(s) PO QD 05/06/2017 01/30/2018 Inactive [SAVINGS FOR UNINSURED PATIENTS -- BIN:318693, PCN: ASPROD1, Group: AME08, ID# [id number], Process claim through MedImpact, for questions: . THIS IS NOT INSURANCE.] diltiazem ER (XR/XT) 120 mg capsule,extended release 2 4 hr, controlled RxNorm: 902425 Capsule(s) 1 Capsule(s) PO QD 09/16/2016 03/14/2017 Inactive [SAVINGS FOR UNINSURED PATIENTS -- BIN:765383, PCN: ASPROD1, Group: AME08, ID# [id number], Process claim through MedImpact, for questions: . THIS IS NOT INSURANCE.] lisinopril 20 mg-hydrochlorothiazide 12.5 mg tablet RxNorm: 383081 1 Tablet(s) PO QAM 09/16/2016 03/14/2017 Inactive [AttnRPh: Saving apply/adjudicate RxGRP:SG20 RxBIN:[id number] RxPCN: ID#:[id number]] diltiazem ER (XR/XT) 120 mg capsule,extended release,control led RxNorm: 975924 1 Capsule(s) PO QD 04/09/2016 10/11/2019 Inactive [SAVINGS FOR UN INSURED PATIENTS -- BIN:899240, PCN: ASPROD1, Group: AME08, ID# [id number], Process claim through MedImpact, for questions: . THIS IS NOT INSURANCE.] diltiazem ER (XR/XT) 120 mg capsule,extended release,control led RxNorm: 427105 1 Capsule(s) PO QD 04/09/2016 09/15/2016 Inactive [SAVINGS FOR UN INSURED PATIENTS -- BIN:770699, PCN: ASPROD1, Group: AME08, ID# [id number], Process claim through MedImpact, for questions: . THIS IS NOT INSURANCE.] lisinopril 20 mg-hydrochlorothiazide 12.5 mg tablet RxNorm: 054971 1 Tablet(s) PO QAM 12/10/2015 06/06/2016 Inactive [AttnRPh: Saving apply/adjudicate RxGRP:SG20 RxBIN:[id number] RxPCN: ID#:[id number]] diltiazem ER (XR/XT) 120 mg capsule,extended release,control led RxNorm: 947946 1 Capsule(s) PO QD 02/07/2015 02/01/2016 Inactive [SAVINGS FOR UN INSURED PATIENTS -- BIN:758415, PCN: ASPROD1, Group: AME08, ID# [id number], Process claim through MedImpact, for questions: . THIS IS NOT INSURANCE.] lisinopril 20 mg-hydrochlorothiazide 12.5 mg tablet RxNorm: 310897 1 Tablet(s) PO QAM 02/07/2015 12/09/2015 Inactive [AttnRPh: Saving apply/adjudicate RxGRP:SG20 RxBIN:[id number] RxPCN: ID#:[id number]] metformin ER 1,000 mg 24 hr tablet,extended release RxNorm: 921857 1 Tablet(s) PO QD 02/07/2015 07/19/2015 Inactive [SAVINGS FOR UNI NSURED PATIENTS -- BIN:673980, PCN: ASPROD1, Group: AME08, ID# [id number], Process claim through [employer], for questions: . THIS IS NOT INSURANCE.] diltiazem ER (XR/XT) 120 mg capsule,extended release,control led RxNorm: 450575 1 Capsule(s) PO QD 12/28/2014 02/06/2015 Inactive [SAVINGS FOR UN INSURED PATIENTS -- BIN:447547, PCN: ASPROD1, Group: AME08, ID# [id number], Process claim through [employer], for questions: . THIS IS NOT INSURANCE.] lisinopril 20 mg-hydrochlorothiazide 12.5 mg tablet RxNorm: 835627 1 Tablet(s) PO QAM 11/20/2014 10/11/2019 Inactive cefdinir 300 mg capsule RxNorm: 024563 2 Capsule(s) PO QD 07/19/2014 07/28/2014 Inactive [SAVINGS FOR NON-COVERED DRUGS -- BIN:00 3585, PCN: ASPROD1, Group: XXXXX, ID# [id number], Questions: . THIS IS NOT INSURANCE.] meclizine 25 mg tablet RxNorm: 878611 1 Tablet(s) PO QHS 07/04/2014 0 10/31/2014 Inactive [SAVINGS FOR NON-COVERED DRUGS -- BIN:00 3585, PCN: ASPROD1, Group: XXXXX, ID# [id number], Questions: . THIS IS NOT INSURANCE.] allopurinol 300 mg tablet RxNorm: 173477 1 Tablet(s) PO QD 06/17/19 15 06/15/2014 Inactive allopurinol 300 mg tablet RxNorm: 832215 1 Tablet(s) PO QD 06/17/19 15 02/06/2015 Inactive [SAVINGS FOR NON-COVERED TATYANA GS -- BIN:903231, PCN: ASPROD1, Group: XXXXX, ID# [id number], Questions: . THIS IS NOT INSURANCE.] naproxen 500 mg tablet RxNorm: 959524 1 Tablet(s) PO BID 06/16/2014 0 07/19/2015 Inactive [SAVINGS FOR NON-COVERED DRUGS -- BIN:00 3585, PCN: ASPROD1, Group: XXXXX, ID# [id number], Questions: . THIS IS NOT INSURANCE.] metformin ER 1,000 mg 24 hr tablet,extended release RxNorm: 887600 1 Tablet(s) PO QD 03/14/2014 02/06/2015 Inactive [SAVINGS FOR UNI NSURED PATIENTS -- BIN:140253, PCN: ASPROD1, Group: AME08, ID# [id number], Process claim through MedImpact, for questions: . THIS IS NOT INSURANCE.] metformin ER 500 mg tablet,extended release 24hr RxNorm: 860 975 1 Tablet(s) PO QD 01/05/2014 03/13/2014 Inactive [SAVINGS FOR UNI NSURED PATIENTS -- BIN:470184, PCN: ASPROD1, Group: AME08, ID# [id number], Process claim through MedImpact, for questions: . THIS IS NOT INSURANCE.] metformin ER 500 mg tablet,extended release 24hr RxNorm: 860 975 1 Tablet(s) PO QD 11/28/2013 01/04/2014 Inactive [SAVINGS FOR UNI NSURED PATIENTS -- BIN:206912, PCN: ASPROD1, Group: AME08, ID# [id number], Process claim through MedImpact, for questions: . THIS IS NOT INSURANCE.] Keflex 500 mg capsule RxNorm: 460893 1 Capsule(s) PO TID 11/09/2013 0 11/15/2013 Inactive [SAVINGS FOR UNINSURED PATIENTS -- BIN:0 21106, PCN: ASPROD1, Group: AME08, ID# [id number], Process claim through MedImpact, for questions: . THIS IS NOT INSURANCE.] diltiazem ER (XR/XT) 120 mg capsule,extended release,control led RxNorm: 609762 1 Capsule(s) PO QD 11/09/2013 11/03/2014 Inactive [SAVINGS FOR UN INSURED PATIENTS -- BIN:229311, PCN: ASPROD1, Group: MONSERRATEIan, ID# [id number], Process claim through MedImpact, for questions: . THIS IS NOT INSURANCE.] lisinopril 20 mg-hydrochlorothiazide 12.5 mg tablet RxNorm: 761855 2 Tablet(s) PO QAM 11/09/2013 11/20/2014 Inactive [AttnRPh: Saving apply/adjudicate RxGRP:SG20 RxBIN:[id number] RxPCN: ID#:[id number]] diltiazem ER (XR/XT) 120 mg capsule,extended release,control led RxNorm: 440275 1 Capsule(s) PO QD -need labs 10/31/2013 11/08/2013 Inactive [DELICIA INGS FOR UNINSURED PATIENTS -- BIN:241101, PCN: ASPROD1, Group: TRAN, ID# [id number], Process claim through MedImpact, for questions: . THIS IS NOT INSURANCE.] lisinopril 20 mg-hydrochlorothiazide 12.5 mg tablet RxNorm: 649288 2 Tablet(s) PO QAM 10/31/2013 11/08/2013 Inactive [AttnRPh: Saving apply/adjudicate RxGRP:SG20 RxBIN:[id number] RxPCN: ID#:[id number]] diltiazem ER (XR/XT) 120 mg capsule,extended release,control led RxNorm: 070195 1 Capsule(s) PO QD -need labs 09/12/2013 10/11/2013 Inactive [DELICIA INGS FOR UNINSURED PATIENTS -- BIN:717879, PCN: ASPROD1, Group: AME08, ID# [id number], Process claim through MedImpact, for questions: . THIS IS NOT INSURANCE.] Omnicef 300 mg capsule RxNorm: 937549 2 Capsule(s) PO QD 11/24/2012 0 11/08/2013 Inactive naproxen 500 mg tablet RxNorm: 558685 1 Tablet(s) PO TID 11/04/2012 0 11/03/2012 Inactive allopurinol 100 mg tablet RxNorm: 426914 1 Tablet(s) PO BID 013 11/08/2013 Inactive naproxen 500 mg tablet RxNorm: 311914 1 Tablet(s) PO TID 11/04/2012 0 11/08/2013 Inactive diltiazem ER (XR/XT) 120 mg capsule,extended release,control led RxNorm: 773631 1 Capsule(s) PO QD 08/02/2012 09/12/2013 Inactive lisinopril 20 mg-hydrochlorothiazide 12.5 mg tablet RxNorm: 905121 2 Tablet(s) PO QAM 08/02/2012 07/27/2013 Inactive acyclovir 800 mg tablet RxNorm: 340601 1 Tablet(s) PO D Take 1 tablet by mouth 5 times daily 02/26/2012 11/02/2012 Inactive acyclovir 800 mg tablet RxNorm: 790038 1 Tablet(s) PO D 02/25/2012 Inactive clindamycin 300 mg capsule RxNorm: 049596 1 Capsule(s) PO TID 02/2403/02/2012 Inactive lisinopril-hydrochlorothiazide 20 mg-12.5 mg tablet RxNorm: 371885 2 Tablet(s) PO QAM 01/30/2012 08/01/2012 Inactive diltiazem ER (XR/XT) 120 mg capsule,extended release,control led RxNorm: 737098 1 Capsule(s) PO QD 01/30/2012 08/01/2012 Inactive lisinopril-hydrochlorothiazide 20 mg-12.5 mg tablet RxNorm: 942704 2 Tablet(s) PO QAM 01/30/2012 10/11/2019 Inactive diltiazem ER (XR/XT) 120 mg capsule,extended release,control led RxNorm: 712043 1 Capsule(s) PO QD 01/30/2012 10/11/2019 Inactive Culturelle 10 billion cell capsule RxNorm: 934730 1 Capsule(s) PO Q D 10/16/2011 02/24/2012 Inactive Omnicef 300 mg capsule RxNorm: 868420 2 Capsule(s) PO QD 09/24/2011 0 11/02/2012 Inactive diltiazem ER (XR/XT) 120 mg capsule,extended release,control led RxNorm: 278310 1 Capsule(s) PO QD 09/09/2011 01/29/2012 Inactive Culturelle 10 billion cell Cap RxNorm: 969007 1 Capsule (s) PO BID take a few hours after Doxycycline. Probiotic 09/09/2011 09/28/2011 Inactive lisinopril-hydrochlorothiazide 20 mg-12.5 mg tablet RxNorm: 458603 2 Tablet(s) PO QAM 09/09/2011 01/29/2012 Inactive doxycycline hyclate 100 mg Tab RxNorm: 1412468 1 Tablet( s) PO BID antibiotic. (may make a little sensitive to sunburn) 09/09/2011 09/18/2011 Inactiv e lisinopril-hydrochlorothiazide 20 mg-12.5 mg Tab RxNorm: 197 886 2 Tablet(s) PO QAM Due for yearly check-up 09/08/2011 09/08/2011 Inactive diltiazem ER (XR/XT) 120 mg Continuous Release Cap RxNorm: 8 62909 1 Capsule(s) PO QD Due for yearly check-up. 09/08/2011 09/08/2011 Inactive diltiazem ER (XR/XT) 120 mg Continuous Release Cap RxNorm: 8 20182 1 Capsule(s) PO QD 08/29/2010 08/23/2011 Inactive lisinopril-hydrochlorothiazide 20 mg-12.5 mg Tab RxNorm: 197 886 2 Tablet(s) PO QAM 08/29/2010 08/23/2011 Inactive lisinopril-hydrochlorothiazide 20 mg-25 mg Tab RxNorm: 056416 1 Tablet(s) PO QD 08/21/2010 08/28/2010 Inactive allopurinol 100 mg tablet RxNorm: 018569 1 Tablet(s) PO QD 04/22/19 11 08/28/2010 Inactive allopurinol 100 mg Tab RxNorm: 474872 1 Tablet(s) PO QD 12/18/2009 Inactive Allopurinol 100 mg Tab RxNorm: 634283 1 Tablet(s) PO QD 12/12/2009 Inactive Allopurinol 100 mg Tab RxNorm: 894970 1 Tablet(s) PO QD 10/30/2009 Inactive Omnicef 300 mg Cap RxNorm: 199277 2 Capsule(s) PO QD 10/01/200910/29 Inactive Allopurinol 100 mg Tab RxNorm: 531987 1 Tablet(s) PO QD 10/01/2009 Inactive Vitamin D3 oral RxNorm: 2418 oral 04/18/2020 Active Vitamin C oral RxNorm: 1151 oral 04/18/2020 Active Vitamin B12 1000mcg Tablet RxNorm: 1 Tablet(s) PO QD 08/29/2010 Inactive lisinopril 20 mg-hydrochlorothiazide 12.5 mg tablet RxNorm: 962139 1 Tablet(s) PO QAM 11/20/2014 11/19/2014 Inactive Medrol (Sid) 4 mg tablets in a dose pack RxNorm: 547859 Tablet(s) PO as directed 11/09/2013 11/08/2013 Inactive Omnicef 300 mg Cap RxNorm: 360573 2 Capsule(s) PO QD 09/24/201112/11 Inactive Fish Oil 1,000 mg Cap RxNorm: 1 Capsule(s) PO QD 11/09/20132013 Inactive diltiazem ER (XR/XT) 120 mg Continuous Release Cap RxNorm: 8 31885 1 Capsule(s) PO QD 08/29/2010 08/28/2010 Inactive Culturelle 10 billion cell capsule RxNorm: 367481 1 Capsule(s) PO Q D 11/03/2012 11/02/2012 Inactive metformin ER 500 mg tablet,extended release 24hr RxNorm: 860 975 1 Tablet(s) PO QD 11/28/2013 11/27/2013 Inactive Lisinopril Oral RxNorm: Oral 10/01/2009 10/01/2009 Inactive Vitamin B12 1000mcg Tablet RxNorm: 1 Tablet(s) PO QD 12/18/2015 Inactive Vitamin B12 1000mcg Tablet RxNorm: 1 Tablet(s) PO QD 11/09/2013 Inactive lisinopril-hydrochlorothiazide 20 mg-25 mg Tab RxNorm: 705428 1 Tablet(s) PO QD 08/21/2010 2010 Inactive metformin ER 1,000 mg 24 hr tablet,extended release RxNorm: 854826 1 Tablet(s) PO QD 03/14/2014 03/13/2014 Inactive Fish Oil 1,000 mg capsule RxNorm: 1 Capsule(s) PO QD 12/18/2015 Inactive Medication Administered No Medication Administered data Immunizations Vaccine Codes Date Status B12 Unknown 09/24/2011 Results Observation Observation Code Item Item Code Result Date S ervice Location GLYCOSYLATED HEMOGLOBIN TEST 81631 Hgb A1c 13171-6 5.7 % 0 04/18/2020 Unknown GFR CALC 9220195 GFR Non Afr Amr >60 mL/min 04/18/2020 Un known GFR CALC 4763093 GFR Afr Amr >60 mL/min 04/18/2020 Unknow n COMPREHENSIVE METABOLIC 06352 AST 35 U/L 2020 Unknown COMPREHENSIVE METABOLIC 11368 ALT 45 U/L 2020 Unknown COMPREHENSIVE METABOLIC 84227 BUN 10 mg/dL 2020 Unknown COMPREHENSIVE METABOLIC 47417 ALBUMIN 4.3 g/dL 2020 Unknown COMPREHENSIVE METABOLIC 37737 CHLORIDE 101 mmol/L 04/18 Unknown COMPREHENSIVE METABOLIC 19115 Bili Total 0.8 mg/dL 04/18 Unknown COMPREHENSIVE METABOLIC 10145 ALK PHOS 73 U/L 2020 Unknown COMPREHENSIVE METABOLIC 77633 SODIUM 137 mmol/L 04/18 Unknown COMPREHENSIVE METABOLIC 04228 CREATININE 0.99 mg/dL 03/27 Unknown COMPREHENSIVE METABOLIC 43793 CALCIUM 9.1 mg/dL 2020 Unknown COMPREHENSIVE METABOLIC 65087 POTASSIUM 4.3 mmol/L 04/18 Unknown COMPREHENSIVE METABOLIC 23520 Total Protein 7.0 g/dL Unknown COMPREHENSIVE METABOLIC 58886 Glucose 133 mg/dL 2020 Unknown COMPREHENSIVE METABOLIC 00996 Bicarbonate 26 mmol/L 03/27 Unknown COMPREHENSIVE METABOLIC 41865 AGAP 10 mmol/L 2020 Unknown MEAN GLUC 3557583 Calc Mean Gluc 117 mg/dL 04/18/2020 Unkn own LIPID GROUP 02702 Cholesterol 187 mg/dL 04/18/2020 Unkno wn LIPID GROUP 66923 Triglyceride 87 mg/dL 04/18/2020 Unkn own L[facility] GROUP 92534 HDL CHOLESTEROL 59 mg/dL 04/18/2020 U nknown LIPID GROUP 15612 Chol/HDL Ratio 3.17 ratio 04/18/2020 U nknown LIPID GROUP 16639 NON-HDL Chol 128 mg/dL 04/18/2020 Unkn own LIPID GROUP 90202 LDL Cholesterol 111 mg/dL 04/18/2020 U nknown HEPATITIS C ANTIBODY 35298 Hepatitis C Ab Non-Reactive 02/01/2018 Unknown GLYCOSYLATED HEMOGLOBIN TEST 80407 Hgb A1c 24630-0 6.2 % 1 04/01/2017 Unknown GFR CALC 5749724 GFR Non Afr Amr >60 mL/min 01/29/2018 Un known GFR CALC 0456682 GFR Afr Amr >60 mL/min 01/29/2018 Unknow n COMPREHENSIVE METABOLIC 96405 AST 17 U/L 2017 Unknown COMPREHENSIVE METABOLIC 05708 ALT 17 U/L 2017 Unknown COMPREHENSIVE METABOLIC 25849 BUN 12 mg/dL 2017 Unknown COMPREHENSIVE METABOLIC 95500 ALBUMIN 4.6 g/dL 2017 Unknown COMPREHENSIVE METABOLIC 79729 CHLORIDE 101 mmol/L 01/29 Unknown COMPREHENSIVE METABOLIC 85485 Bili Total 0.9 mg/dL 01/29 Unknown COMPREHENSIVE METABOLIC 20650 ALK PHOS 57 U/L 2017 Unknown COMPREHENSIVE METABOLIC 91318 SODIUM 136 mmol/L 01/29 Unknown COMPREHENSIVE METABOLIC 47544 CREATININE 1.00 mg/dL 08/2017 Unknown COMPREHENSIVE METABOLIC 59095 CALCIUM 9.6 mg/dL 2017 Unknown COMPREHENSIVE METABOLIC 85048 POTASSIUM 4.2 mmol/L 01/29 Unknown COMPREHENSIVE METABOLIC 30625 Total Protein 6.9 g/dL Unknown COMPREHENSIVE METABOLIC 84416 Glucose 128 mg/dL 2017 Unknown COMPREHENSIVE METABOLIC 82705 Bicarbonate 27 mmol/L 08/2017 Unknown COMPREHENSIVE METABOLIC 20602 AGAP 8 mmol/L 2017 Unknown LIPID GROUP 46458 Cholesterol 168 mg/dL 01/29/2018 Unkno wn LIPID GROUP 33775 Triglyceride 82 mg/dL 01/29/2018 Unkn own LIPID GROUP 66388 HDL CHOLESTEROL 43 mg/dL 01/29/2018 U nknown LIPID GROUP 82867 Chol/HDL Ratio 3.91 ratio 01/29/2018 U nknown LIPID GROUP 76498 NON-HDL Chol 125 mg/dL 01/29/2018 Unkn own LIPID GROUP 68478 LDL Cholesterol 109 mg/dL 01/29/2018 U nknown MEAN GLUC 4397449 Calc Mean Gluc 131 mg/dL 01/29/2018 Unkn own LIPID GROUP 59386 Cholesterol 164 mg/dL 05/01/2017 Unkno wn LIPID GROUP 58405 Triglyceride 131 mg/dL 05/01/2017 Unkn own LIPID GROUP 95166 HDL CHOLESTEROL 45 mg/dL 05/01/2017 U nknown LIPID GROUP 57667 Chol/HDL Ratio 3.64 ratio 05/01/2017 U nknown LIPID GROUP 27868 NON-HDL Chol 119 mg/dL 05/01/2017 Unkn own LIPID GROUP 09678 LDL Cholesterol 93 mg/dL 05/01/2017 U nknown COMPLETE BLOOD COUNT 7174623 WBC 4.9 10e9/L 05/02/19 18 Unknown COMPLETE BLOOD COUNT 9718116 RBC 4.31 10e12/L 2017 Unknown COMPLETE BLOOD COUNT 3720734 HEMOGLOBIN 14.3 g/dL 05/02/19 18 Unknown COMPLETE BLOOD COUNT 3592146 HEMATOCRIT 42.8 % 05/02/19 18 Unknown COMPLETE BLOOD COUNT 1156441 MCV 99.3 fL 8 Unknown COMPLETE BLOOD COUNT 3440305 MCH 33.2 pg 8 Unknown COMPLETE BLOOD COUNT 3951743 MCHC 33.4 g/dL 8 Unknown COMPLETE BLOOD COUNT 4329199 PLATELET COUNT 241 10e9/L 10/2017 Unknown COMPLETE BLOOD COUNT 7863852 Mean Plt Volume 11.0 fL 10/2017 Unknown COMPLETE BLOOD COUNT 6504731 Neut Auto 56.6 % 8 Unknown COMPLETE BLOOD COUNT 8492385 Lymph Auto 24.7 % 05/02/19 18 Unknown COMPLETE BLOOD COUNT 8993558 [place] Auto 11.6 % 8 Unknown COMPLETE BLOOD COUNT 8035111 RDW 13.2 % 8 Unknown COMPLETE BLOOD COUNT 5978935 Eos Auto 6.9 % 8 Unknown COMPLETE BLOOD COUNT 6781319 Baso Auto 0.2 % 8 Unknown COMPLETE BLOOD COUNT 8474347 Neutrophil Abs 2.77 10e9/L Unknown COMPLETE BLOOD COUNT 9444326 Lymphocyte Abs 1.21 10e9/L Unknown COMPLETE BLOOD COUNT 9243751 Monocyte Abs 0.57 10e9/L 10/2017 Unknown COMPLETE BLOOD COUNT 5675635 Eosinophil Abs 0.34 10e9/L Unknown COMPLETE BLOOD COUNT 8255749 RDW-SD 47.2 fL 8 Unknown COMPLETE BLOOD COUNT 0505814 Basophil Abs 0.01 10e9/L 10/2017 Unknown GLYCOSYLATED HEMOGLOBIN TEST 13681 Hgb A1c 88715-3 6.0 % 0 05/01/2017 Unknown GFR CALC 5768802 GFR Non Afr Amr >60 mL/min 05/01/2017 Un known GFR CALC 3547566 GFR Afr Amr >60 mL/min 05/01/2017 Unknow n MEAN GLUC 1701785 Calc Mean Gluc 126 mg/dL 05/01/2017 Unkn own COMPREHENSIVE METABOLIC 06465 AST 17 U/L 2017 Unknown COMPREHENSIVE METABOLIC 76573 ALT 16 U/L 2017 Unknown COMPREHENSIVE METABOLIC 79564 BUN 13 mg/dL 2017 Unknown COMPREHENSIVE METABOLIC 97391 ALBUMIN 3.9 g/dL 2017 Unknown COMPREHENSIVE METABOLIC 36295 CHLORIDE 104 mmol/L 05/01 Unknown COMPREHENSIVE METABOLIC 06772 Bili Total 0.7 mg/dL 05/01 Unknown COMPREHENSIVE METABOLIC 93876 ALK PHOS 58 U/L 2017 Unknown COMPREHENSIVE METABOLIC 31455 SODIUM 139 mmol/L 05/01 Unknown COMPREHENSIVE METABOLIC 60682 CREATININE 0.99 mg/dL 10/2017 Unknown COMPREHENSIVE METABOLIC 76693 CALCIUM 9.5 mg/dL 2017 Unknown COMPREHENSIVE METABOLIC 38006 POTASSIUM 4.3 mmol/L 05/01 Unknown COMPREHENSIVE METABOLIC 18120 Total Protein 6.7 g/dL Unknown COMPREHENSIVE METABOLIC 85240 Glucose 110 mg/dL 2017 Unknown COMPREHENSIVE METABOLIC 08711 Bicarbonate 27 mmol/L 10/2017 Unknown COMPREHENSIVE METABOLIC 65181 AGAP 8 mmol/L 2017 Unknown PSA EQUIMOLAR NITHIN 50258 PSA Total 1.10 ng/mL 8 Unknown THYROID STIMULATING HORMONE 82383 TSH 0.673 uIU/mL 05/01/2017 Unknown GLYCOSYLATED HEMOGLOBIN TEST 71357 Hgb A1c 89751-1 5.8 % 1 03/08/2015 Unknown MEAN GLUC 8525240 Calc Mean Gluc 120 mg/dL 01/07/2016 Unkn own FREE T4 68725 T4 Free 1.13 ng/dL 01/04/2016 Unknown THYROID STIMULATING HORMONE 09050 TSH 0.875 uIU/mL 01/04/2016 Unknown COMPREHENSIVE METABOLIC 96009 AST 20 U/L 2015 Unknown COMPREHENSIVE METABOLIC 78615 ALT 20 U/L 2015 Unknown COMPREHENSIVE METABOLIC 18994 BUN 14 mg/dL 2015 Unknown COMPREHENSIVE METABOLIC 60829 ALBUMIN 4.4 g/dL 2015 Unknown COMPREHENSIVE METABOLIC 86121 CHLORIDE 103 mmol/L 01/03 Unknown COMPREHENSIVE METABOLIC 96913 Bili Total 0.5 mg/dL 01/03 Unknown COMPREHENSIVE METABOLIC 39499 ALK PHOS 53 U/L 2015 Unknown COMPREHENSIVE METABOLIC 02540 SODIUM 137 mmol/L 01/03 Unknown COMPREHENSIVE METABOLIC 84371 CREATININE 0.98 mg/dL 12/24 Unknown COMPREHENSIVE METABOLIC 39564 CALCIUM 9.6 mg/dL 2015 Unknown COMPREHENSIVE METABOLIC 60402 POTASSIUM 4.5 mmol/L 01/03 Unknown COMPREHENSIVE METABOLIC 02108 Total Protein 7.0 g/dL Unknown COMPREHENSIVE METABOLIC 18993 Glucose 117 mg/dL 2015 Unknown COMPREHENSIVE METABOLIC 24104 Bicarbonate 26 mmol/L 12/24 Unknown COMPREHENSIVE METABOLIC 68257 AGAP 8 mmol/L 2015 Unknown COMPLETE BLOOD COUNT 4563250 WBC 6.2 10e9/L 01/04/20 16 Unknown COMPLETE BLOOD COUNT 0364642 RBC 4.55 10e12/L 2015 Unknown COMPLETE BLOOD COUNT 7731222 HEMOGLOBIN 15.0 g/dL 01/04/20 16 Unknown COMPLETE BLOOD COUNT 1509712 HEMATOCRIT 43.8 % 01/04/20 16 Unknown COMPLETE BLOOD COUNT 3171310 MCV 96.3 fL 6 Unknown COMPLETE BLOOD COUNT 7881190 MCH 33.0 pg 6 Unknown COMPLETE BLOOD COUNT 1842783 MCHC 34.2 g/dL 6 Unknown COMPLETE BLOOD COUNT 0742443 PLATELET COUNT 259 10e9/L 12/2015 Unknown COMPLETE BLOOD COUNT 5625312 Mean Plt Volume 10.8 fL 12/2015 Unknown COMPLETE BLOOD COUNT 5390402 Neut Auto 62.4 % 6 Unknown COMPLETE BLOOD COUNT 1952417 Lymph Auto 25.9 % 01/04/20 16 Unknown COMPLETE BLOOD COUNT 2316242 [place] Auto 6.8 % 6 Unknown COMPLETE BLOOD COUNT 7363909 RDW 13.4 % 6 Unknown COMPLETE BLOOD COUNT 7391309 Eos Auto 4.9 % 6 Unknown COMPLETE BLOOD COUNT [id number] Baso Auto 0.0 % 6 Unknown COMPLETE BLOOD COUNT [id number] Neutrophil Abs 3.87 10e9/L Unknown COMPLETE BLOOD COUNT [id number] Lymphocyte Abs 1.61 10e9/L Unknown COMPLETE BLOOD COUNT [id number] Monocyte Abs 0.42 10e9/L 12/24 Unknown COMPLETE BLOOD COUNT [id number] Eosinophil Abs 0.30 10e9/L Unknown COMPLETE BLOOD COUNT [id number] RDW-SD 46.2 fL 6 Unknown COMPLETE BLOOD COUNT [id number] Basophil Abs 0.00 10e9/L 12/24 Unknown PSA EQUIMOLAR NITHIN 90899 PSA Total 1.14 ng/mL 6 Unknown GFR CALC [id number] GFR Non Afr Amr >60 mL/min 01/04/2016 Un known GFR CALC [id number] GFR Afr Amr >60 mL/min 01/04/2016 Unknow n LIPID GROUP 03912 Cholesterol 172 mg/dL 01/04/2016 Unkno wn LIPID GROUP 15529 Triglyceride 156 mg/dL 01/04/2016 Unkn own LIPID GROUP 19425 HDL CHOLESTEROL 42 mg/dL 01/04/2016 U nknown LIPID GROUP 57270 Chol/HDL Ratio 4.10 ratio 01/04/2016 U nknown LIPID GROUP 16693 NON-HDL Chol 130 mg/dL 01/04/2016 Unkn own LIPID GROUP 98481 LDL Cholesterol 99 mg/dL 01/04/2016 U nknown GLYCOSYLATED HEMOGLOBIN TEST 68122 A1C HPLC 49601-8 5.8 % 1 04/10/2014 Unknown COMPLETE BLOOD COUNT [id number] WBC 6.0 10e9/L 02/03/20 15 Unknown COMPLETE BLOOD COUNT [id number] RBC 4.39 10e12/L 2014 Unknown COMPLETE BLOOD COUNT [id number] HGB 14.3 g/dL 5 Unknown COMPLETE BLOOD COUNT 4706721 HCT DET 41.7 % 5 Unknown COMPLETE BLOOD COUNT [id number] MCV 95.0 fL 5 Unknown COMPLETE BLOOD COUNT [id number] MCH 32.6 pg 5 Unknown COMPLETE BLOOD COUNT [id number] MCHC 34.3 g/dL 5 Unknown COMPLETE BLOOD COUNT [id number] PLT 272 10e9/L 02/03/20 15 Unknown COMPLETE BLOOD COUNT [id number] MPV 11.1 fL 5 Unknown COMPLETE BLOOD COUNT [id number] GARY % 62.7 % 5 Unknown COMPLETE BLOOD COUNT [id number] LY % 25.2 % 5 Unknown COMPLETE BLOOD COUNT [id number] MON % 7.9 % 5 Unknown COMPLETE BLOOD COUNT [id number] EOS % 4.0 % 5 Unknown COMPLETE BLOOD COUNT [id number] BASO % 0.2 % 5 Unknown COMPLETE BLOOD COUNT [id number] RDW 13.2 % 5 Unknown COMPLETE BLOOD COUNT [id number] ABS GARY 3.76 10e9/L 015 Unknown COMPLETE BLOOD COUNT [id number] ABS LYMPH 1.51 10e9/L 015 Unknown COMPLETE BLOOD COUNT [id number] ABS MONO 0.47 10e9/L 015 Unknown COMPLETE BLOOD COUNT [id number] ABS EOS 0.24 10e9/L 015 Unknown COMPLETE BLOOD COUNT [id number] ABS BASO 0.01 10e9/L 015 Unknown COMPLETE BLOOD COUNT [id number] RDW-SD 44.7 fL 5 Unknown GFR CALC 0336104 GFR AA >60 ML/MIN 02/02/2015 Unknown GFR CALC 1615170 GFR NON-AA >60 ML/MIN 02/02/2015 Unknown THYROID STIMULATING HORMONE 61233 TSH 0.970 uIU/ML 02/02/2015 Unknown LIPID GROUP 68826 HDL TEST 41 MG/DL 02/02/2015 Unknown LIPID GROUP 33611 TRIG 151 MG/DL 02/02/2015 Unknown LIPID GROUP 56164 TEST LDL 122 MG/DL 02/02/2015 Unknown LIPID GROUP 35157 CHOL 193 MG/DL 02/02/2015 Unknown LIPID GROUP 58492 RCHOL/HDL 4.71 RATIO 02/02/2015 Unknow n LIPID GROUP 43676 NON-HDL CH 152 MG/DL 02/02/2015 Unknow n PSA EQUIMOLAR NITHIN 01133 PSA EQ 0.76 NG/ML 5 Unknown FREE T4 35686 FREE T4 0.93 NG/DL 02/02/2015 Unknown COMPREHENSIVE METABOLIC 76574 AST 21 U/L 2014 Unknown COMPREHENSIVE METABOLIC 01963 ALT 21 IU/L 2014 Unknown COMPREHENSIVE METABOLIC 53135 BUN 15 MG/DL 2014 Unknown COMPREHENSIVE METABOLIC 09941 ALBUMIN 4.5 GM/DL 2014 Unknown COMPREHENSIVE METABOLIC 39469 CHLORIDE 104 MMOL/L 02/02 Unknown COMPREHENSIVE METABOLIC 11038 BILI TOT 1.0 MG/DL 2014 Unknown COMPREHENSIVE METABOLIC 35673 ALK PHOS 71 U/L 2014 Unknown COMPREHENSIVE METABOLIC 32195 SODIUM 136 MMOL/L 02/02 Unknown COMPREHENSIVE METABOLIC 76537 CREATININE 0.94 MG/DL 01/23 Unknown COMPREHENSIVE METABOLIC 59892 CALCIUM 9.8 MG/DL 2014 Unknown COMPREHENSIVE METABOLIC 38378 POTASSIUM 4.3 MMOL/L 02/02 Unknown COMPREHENSIVE METABOLIC 16133 PROT TOT 6.9 GM/DL 2014 Unknown COMPREHENSIVE METABOLIC 15799 Glucose 113 MG/DL 2014 Unknown COMPREHENSIVE METABOLIC 09939 BICARB 26 MMOL/L 2014 Unknown COMPREHENSIVE METABOLIC 93667 ANION GAP 6 MEQ/L 2014 Unknown ANTI STREPTOLYSIN O TITER(ASO) 48944 ASO 57 IU/ML 06/19/2014 Unknown RA FACTOR 69776 RA FACTOR <20.0 IU/ML 06/15/2014 Unknown FREE T4 29119 FREE T4 1.19 NG/DL 06/15/2014 Unknown ANTINUCLEAR ANTIBODY SCREEN 53078 SHANNON SCR <1:80 Unknown ERYTHROCYTE SEDIMENTATION RATE 56428 ESR 2 MM/HR 06/14/2014 Unknown COMPLETE BLOOD COUNT [id number] WBC 6.7 10e9/L 06/15/19 15 Unknown COMPLETE BLOOD COUNT [id number] RBC 4.86 10e12/L 2014 Unknown COMPLETE BLOOD COUNT 4174796 HGB 15.9 g/dL 5 Unknown COMPLETE BLOOD COUNT [id number] HCT DET 45.0 % 5 Unknown COMPLETE BLOOD COUNT 8514198 MCV 92.6 fL 5 Unknown COMPLETE BLOOD COUNT 8821297 MCH 32.7 pg 5 Unknown COMPLETE BLOOD COUNT 0475420 MCHC 35.3 g/dL 5 Unknown COMPLETE BLOOD COUNT 9230354 PLT 299 10e9/L 06/15/19 15 Unknown COMPLETE BLOOD COUNT [id number] MPV 10.0 fL 5 Unknown COMPLETE BLOOD COUNT [id number] GARY % 63.8 % 5 Unknown COMPLETE BLOOD COUNT 9328520 LY % 18.3 % 5 Unknown COMPLETE BLOOD COUNT [id number] MON % 12.1 % 5 Unknown COMPLETE BLOOD COUNT [id number] EOS % 5.7 % 5 Unknown COMPLETE BLOOD COUNT 1434558 BASO % 0.1 % 5 Unknown COMPLETE BLOOD COUNT 3400420 RDW 13.3 % 5 Unknown COMPLETE BLOOD COUNT [id number] ABS GARY 4.27 10e9/L 015 Unknown COMPLETE BLOOD COUNT 7078837 ABS LYMPH 1.23 10e9/L 015 Unknown COMPLETE BLOOD COUNT [id number] ABS MONO 0.81 10e9/L 015 Unknown COMPLETE BLOOD COUNT [id number] ABS EOS 0.38 10e9/L 015 Unknown COMPLETE BLOOD COUNT [id number] ABS BASO 0.01 10e9/L 015 Unknown COMPLETE BLOOD COUNT [id number] RDW-SD 44.3 fL 5 Unknown URIC ACID 95460 URIC ACID 7.6 MG/DL 06/14/[place] [address] SYP AB NR 06/14/2014 Unknown THYROID STIMULATING HORMONE 11697 TSH 0.825 uIU/ML 06/14/2014 Unknown GLYCOSYLATED HEMOGLOBIN TEST 14375 A1C HPLC 08981-4 6.0 % 0 06/14/2014 Unknown VITAMIN B 12 FOLIC ACID 04811|06569 VIT B 12 751 PG/ML 05/25 Unknown VITAMIN B 12 FOLIC ACID 91740|45973 FOLIC ACID 23.5 NG/ML Unknown GFR CALC 6370753 GFR AA >60 ML/MIN 06/14/2014 Unknown GFR CALC 6039895 GFR NON-AA >60 ML/MIN 06/14/2014 Unknown C-REACTIVE PROTEIN (CRP) QUANT 21319 CRP 0.1 MG/DL 06/14/2014 Unknown COMPREHENSIVE METABOLIC 76753 AST 19 U/L 2014 Unknown COMPREHENSIVE METABOLIC 24679 ALT 16 IU/L 2014 Unknown COMPREHENSIVE METABOLIC 63590 BUN 13 MG/DL 2014 Unknown COMPREHENSIVE METABOLIC 09616 ALBUMIN 5.1 GM/DL 2014 Unknown COMPREHENSIVE METABOLIC 30611 CHLORIDE 92 MMOL/L 2014 Unknown COMPREHENSIVE METABOLIC 75998 BILI TOT 0.6 MG/DL 2014 Unknown COMPREHENSIVE METABOLIC 61447 ALK PHOS 61 U/L 2014 Unknown COMPREHENSIVE METABOLIC 97029 SODIUM 128 MMOL/L 06/14 Unknown COMPREHENSIVE METABOLIC 47764 CREATININE 1.00 MG/DL 05/25 Unknown COMPREHENSIVE METABOLIC 35894 CALCIUM 10.7 MG/DL 06/14 Unknown COMPREHENSIVE METABOLIC 35745 POTASSIUM 4.1 MMOL/L 06/14 Unknown COMPREHENSIVE METABOLIC 20006 PROT TOT 7.6 GM/DL 2014 Unknown COMPREHENSIVE METABOLIC 57075 Glucose 106 MG/DL 2014 Unknown COMPREHENSIVE METABOLIC 58251 BICARB 29 MMOL/L 2014 Unknown COMPREHENSIVE METABOLIC 88282 ANION GAP 7 MEQ/L 2014 Unknown COMPREHENSIVE METABOLIC 39277 AST 21 U/L 2014 Unknown COMPREHENSIVE METABOLIC 34730 ALT 26 IU/L 2014 Unknown COMPREHENSIVE METABOLIC 18659 BUN 16 MG/DL 2014 Unknown COMPREHENSIVE METABOLIC 35656 ALBUMIN 4.6 GM/DL 2014 Unknown COMPREHENSIVE METABOLIC 07260 CHLORIDE 99 MMOL/L 2014 Unknown COMPREHENSIVE METABOLIC 90135 BILI TOT 0.5 MG/DL 2014 Unknown COMPREHENSIVE METABOLIC 59957 ALK PHOS 57 U/L 2014 Unknown COMPREHENSIVE METABOLIC 52025 SODIUM 134 MMOL/L 03/09 Unknown COMPREHENSIVE METABOLIC 66788 CREATININE 0.91 MG/DL 02/23 Unknown COMPREHENSIVE METABOLIC 72418 CALCIUM 9.9 MG/DL 2014 Unknown COMPREHENSIVE METABOLIC 52920 POTASSIUM 4.3 MMOL/L 03/09 Unknown COMPREHENSIVE METABOLIC 50709 PROT TOT 7.0 GM/DL 2014 Unknown COMPREHENSIVE METABOLIC 65361 Glucose 91 MG/DL 2014 Unknown COMPREHENSIVE METABOLIC 56837 BICARB 30 MMOL/L 2014 Unknown COMPREHENSIVE METABOLIC 03486 ANION GAP 5 MEQ/L 2014 Unknown GLYCOSYLATED HEMOGLOBIN TEST 61566 A1C HPLC 63961-1 6.4 % 0 03/09/2014 Unknown GFR CALC 6912936 GFR AA >60 ML/MIN 03/09/2014 Unknown GFR CALC 1592703 GFR NON-AA >60 ML/MIN 03/09/2014 Unknown GLYCOSYLATED HEMOGLOBIN TEST 65407 A1C HPLC 73475-1 6.0 % 0 11/22/2013 Unknown THYROID STIMULATING HORMONE 03584 TSH 0.643 uIU/ML 11/18/2013 Unknown PSA EQUIMOLAR NITHIN 04790 PSA EQ 0.75 NG/ML 4 Unknown COMPREHENSIVE METABOLIC 26862 AST 21 U/L 2013 Unknown COMPREHENSIVE METABOLIC 35052 ALT 22 IU/L 2013 Unknown COMPREHENSIVE METABOLIC 95885 BUN 16 MG/DL 2013 Unknown COMPREHENSIVE METABOLIC 24955 ALBUMIN 4.6 GM/DL 2013 Unknown COMPREHENSIVE METABOLIC 56112 CHLORIDE 97 MMOL/L 2013 Unknown COMPREHENSIVE METABOLIC 95949 BILI TOT 0.8 MG/DL 2013 Unknown COMPREHENSIVE METABOLIC 81891 ALK PHOS 68 U/L 2013 Unknown COMPREHENSIVE METABOLIC 71641 SODIUM 132 MMOL/L 11/18 Unknown COMPREHENSIVE METABOLIC 39157 CREATININE 0.95 MG/DL 10/25 Unknown COMPREHENSIVE METABOLIC 86051 CALCIUM 10.1 MG/DL 11/18 Unknown COMPREHENSIVE METABOLIC 05481 POTASSIUM 4.2 MMOL/L 11/18 Unknown COMPREHENSIVE METABOLIC 04234 PROT TOT 7.2 GM/DL 2013 Unknown COMPREHENSIVE METABOLIC 25965 Glucose 125 MG/DL 2013 Unknown COMPREHENSIVE METABOLIC 57306 BICARB 26 MMOL/L 2013 Unknown COMPREHENSIVE METABOLIC 39684 ANION GAP 9 MEQ/L 2013 Unknown COMPLETE BLOOD COUNT 7749546 WBC 7.3 10e9/L 11/19/19 14 Unknown COMPLETE BLOOD COUNT 3446976 RBC 4.68 10e12/L 2013 Unknown COMPLETE BLOOD COUNT 3898106 HGB 15.4 g/dL 4 Unknown COMPLETE BLOOD COUNT 2268230 HCT DET 43.4 % 4 Unknown COMPLETE BLOOD COUNT 1615156 MCV 92.7 fL 4 Unknown COMPLETE BLOOD COUNT 7441467 MCH 32.9 pg 4 Unknown COMPLETE BLOOD COUNT 3404348 MCHC 35.5 g/dL 4 Unknown COMPLETE BLOOD COUNT 5442929 PLT 286 10e9/L 11/19/19 14 Unknown COMPLETE BLOOD COUNT 2561781 MPV 10.8 fL 4 Unknown COMPLETE BLOOD COUNT 3721353 GARY % 61.6 % 4 Unknown COMPLETE BLOOD COUNT 2657557 LY % 25.6 % 4 Unknown COMPLETE BLOOD COUNT 7037827 MON % 8.7 % 4 Unknown COMPLETE BLOOD COUNT [id number] EOS % 4.0 % 4 Unknown COMPLETE BLOOD COUNT 5943578 BASO % 0.1 % 4 Unknown COMPLETE BLOOD COUNT 4305558 RDW 12.9 % 4 Unknown COMPLETE BLOOD COUNT 7520403 ABS GARY 4.50 10e9/L 014 Unknown COMPLETE BLOOD COUNT 5363155 ABS LYMPH 1.87 10e9/L 014 Unknown COMPLETE BLOOD COUNT 9606029 ABS MONO 0.64 10e9/L 014 Unknown COMPLETE BLOOD COUNT 9101522 ABS EOS 0.29 10e9/L 014 Unknown COMPLETE BLOOD COUNT [id number] ABS BASO 0.01 10e9/L 014 Unknown COMPLETE BLOOD COUNT 2314022 RDW-SD 42.9 fL 4 Unknown LIPID GROUP 60318 HDL TEST 52 MG/DL 11/18/2013 Unknown LIPID GROUP 39041 TRIG 100 MG/DL 11/18/2013 Unknown LIPID GROUP 59583 TEST LDL 110 MG/DL 11/18/2013 Unknown LIPID GROUP 65250 CHOL 182 MG/DL 11/18/2013 Unknown LIPID GROUP 24213 RCHOL/HDL 3.50 RATIO 11/18/2013 Unknow n LIPID GROUP 56008 NON-HDL CH 130 MG/DL 11/18/2013 Unknow n FREE T4 11160 FREE T4 1.28 NG/DL 11/18/2013 Unknown GFR CALC 3735880 GFR AA >60 ML/MIN 11/18/2013 Unknown GFR CALC 0682412 GFR NON-AA >60 ML/MIN 11/18/2013 Unknown COMPREHENSIVE METABOLIC 29183 AST 21 U/L 2012 Unknown COMPREHENSIVE METABOLIC 29930 ALT 20 IU/L 2012 Unknown COMPREHENSIVE METABOLIC 16425 BUN 12 MG/DL 2012 Unknown COMPREHENSIVE METABOLIC 04605 ALBUMIN 4.6 GM/DL 2012 Unknown COMPREHENSIVE METABOLIC 63723 CHLORIDE 105 MMOL/L 11/03 Unknown COMPREHENSIVE METABOLIC 28598 BILI TOT 0.5 MG/DL 2012 Unknown COMPREHENSIVE METABOLIC 99651 ALK PHOS 53 U/L 2012 Unknown COMPREHENSIVE METABOLIC 85126 SODIUM 138 MMOL/L 11/03 Unknown COMPREHENSIVE METABOLIC 44181 CREATININE 0.93 MG/DL 10/24 Unknown COMPREHENSIVE METABOLIC 28050 CALCIUM 9.7 MG/DL 2012 Unknown COMPREHENSIVE METABOLIC 12021 POTASSIUM 4.3 MMOL/L 11/03 Unknown COMPREHENSIVE METABOLIC 01511 PROT TOT 7.0 GM/DL 2012 Unknown COMPREHENSIVE METABOLIC 70000 Glucose 117 MG/DL 2012 Unknown COMPREHENSIVE METABOLIC 61709 BICARB 25 MMOL/L 2012 Unknown COMPREHENSIVE METABOLIC 00467 ANION GAP 8 MEQ/L 2012 Unknown GFR CALC 7405188 GFR AA >60 ML/MIN 11/03/2012 Unknown GFR CALC 4896036 GFR NON-AA >60 ML/MIN 11/03/2012 Unknown THYROID STIMULATING HORMONE 98110 TSH 1.218 uIU/ML 11/03/2012 Unknown URIC ACID 05011 URIC ACID 7.6 MG/DL 11/03/2012 Unknown COMPLETE BLOOD COUNT [id number] WBC 5.0 10e9/L 11/04/19 13 Unknown COMPLETE BLOOD COUNT 8888031 RBC 4.70 10e12/L 2012 Unknown COMPLETE BLOOD COUNT 4712340 HGB 15.6 g/dL 3 Unknown COMPLETE BLOOD COUNT 6503848 HCT DET 44.2 % 3 Unknown COMPLETE BLOOD COUNT 3857468 MCV 94.0 fL 3 Unknown COMPLETE BLOOD COUNT 6372334 MCH 33.2 pg 3 Unknown COMPLETE BLOOD COUNT 1167869 MCHC 35.3 g/dL 3 Unknown COMPLETE BLOOD COUNT 5674338 PLT 248 10e9/L 11/04/19 13 Unknown COMPLETE BLOOD COUNT 2104628 MPV 10.9 fL 3 Unknown COMPLETE BLOOD COUNT 7329723 GARY % 58.3 % 3 Unknown COMPLETE BLOOD COUNT 4743552 LY % 27.9 % 3 Unknown COMPLETE BLOOD COUNT 3712876 MON % 7.0 % 3 Unknown COMPLETE BLOOD COUNT 8170590 EOS % 6.6 % 3 Unknown COMPLETE BLOOD COUNT 5782276 BASO % 0.2 % 3 Unknown COMPLETE BLOOD COUNT 7455946 RDW 13.2 % 3 Unknown COMPLETE BLOOD COUNT [id number] ABS GARY 2.92 10e9/L 013 Unknown COMPLETE BLOOD COUNT 4529240 ABS LYMPH 1.40 10e9/L 013 Unknown COMPLETE BLOOD COUNT 9445836 ABS MONO 0.35 10e9/L 013 Unknown COMPLETE BLOOD COUNT 0406807 ABS EOS 0.33 10e9/L 013 Unknown COMPLETE BLOOD COUNT 7613539 ABS BASO 0.01 10e9/L 013 Unknown COMPLETE BLOOD COUNT 5593927 RDW-SD 44.1 fL 3 Unknown HERPE1/2MG 01128|91010|54919 HSV G1 EIA 1.78 INDEX 3 Unknown HERPE1/2MG 12676|39315|63958 HSVM1/2EIA 0.15 02/26/2012 Unknown HERPE1/2MG 25148|55032|99909 HSV G2 EIA 10.14 INDEX 02/25/19 13 Unknown COMPLETE BLOOD COUNT 1235711 WBC 9.4 10e9/L 02/24/19 13 Unknown COMPLETE BLOOD COUNT 1635865 RBC 4.54 10e12/L 2012 Unknown COMPLETE BLOOD COUNT 7964484 HGB 14.9 g/dL 3 Unknown COMPLETE BLOOD COUNT 2761357 HCT DET 43.0 % 3 Unknown COMPLETE BLOOD COUNT 5751075 MCV 94.7 fL 3 Unknown COMPLETE BLOOD COUNT 7023302 MCH 32.8 pg 3 Unknown COMPLETE BLOOD COUNT 0574412 MCHC 34.7 g/dL 3 Unknown COMPLETE BLOOD COUNT 9995617 PLT 251 10e9/L 02/24/19 13 Unknown COMPLETE BLOOD COUNT 8973757 MPV 11.1 fL 3 Unknown COMPLETE BLOOD COUNT 7653011 GARY % 75.0 % 3 Unknown COMPLETE BLOOD COUNT 0299673 LY % 15.7 % 3 Unknown COMPLETE BLOOD COUNT 9205169 MON % 6.8 % 3 Unknown COMPLETE BLOOD COUNT 7339904 EOS % 2.3 % 3 Unknown COMPLETE BLOOD COUNT [id number] BASO % 0.2 % 3 Unknown COMPLETE BLOOD COUNT 0855709 RDW 13.2 % 3 Unknown COMPLETE BLOOD COUNT 7256157 ABS GARY 7.05 10e9/L 013 Unknown COMPLETE BLOOD COUNT 2681076 ABS LYMPH 1.48 10e9/L 013 Unknown COMPLETE BLOOD COUNT 1139396 ABS MONO 0.64 10e9/L 013 Unknown COMPLETE BLOOD COUNT 5556277 ABS EOS 0.22 10e9/L 013 Unknown COMPLETE BLOOD COUNT 7386440 ABS BASO 0.02 10e9/L 013 Unknown COMPLETE BLOOD COUNT 7947730 RDW-SD 44.3 fL 3 Unknown COMPREHENSIVE METABOLIC 25577 AST 21 U/L 2012 Unknown COMPREHENSIVE METABOLIC 57083 ALT 22 IU/L 2012 Unknown COMPREHENSIVE METABOLIC 12434 BUN 12 MG/DL 2012 Unknown COMPREHENSIVE METABOLIC 39656 ALBUMIN 4.9 GM/DL 2012 Unknown COMPREHENSIVE METABOLIC 84745 CHLORIDE 102 MMOL/L 02/24 Unknown COMPREHENSIVE METABOLIC 26076 BILI TOT 0.6 MG/DL 2012 Unknown COMPREHENSIVE METABOLIC 39739 ALK PHOS 59 U/L 2012 Unknown COMPREHENSIVE METABOLIC 31313 SODIUM 137 MMOL/L 02/24 Unknown COMPREHENSIVE METABOLIC 60977 CREATININE 0.92 MG/DL 03/2012 Unknown COMPREHENSIVE METABOLIC 50072 CALCIUM 9.7 MG/DL 2012 Unknown COMPREHENSIVE METABOLIC 12636 POTASSIUM 4.1 MMOL/L 02/24 Unknown COMPREHENSIVE METABOLIC 72947 PROT TOT 6.9 GM/DL 2012 Unknown COMPREHENSIVE METABOLIC 26868 Glucose 127 MG/DL 2012 Unknown COMPREHENSIVE METABOLIC 32303 BICARB 25 MMOL/L 2012 Unknown COMPREHENSIVE METABOLIC 90158 ANION GAP 10 MEQ/L 2012 Unknown GFR CALC 3499126 GFR AA >60 ML/MIN 02/25/2012 Unknown GFR CALC 7623340 GFR NON-AA >60 ML/MIN 02/25/2012 Unknown TULAREM AB 3538015 TULAREM AB <1:20 09/23/2011 Unknown [place] FEVER [id number] IGG RMSF <1:16 0 09/19/2011 Unknown [place] [employer] FEVER 15794C5 IGM RMSF <1:10 0 09/19/2011 Unknown E CHAFF AB 8128665 IGG E CHFF <1:16 09/19/2011 Unknown E CHAFF AB 8262818 IGM E CHFF <1:10 09/19/2011 Unknown GLYCOSYLATED HEMOGLOBIN TEST 57733 A1C HPLC 02368-2 5.4 % 0 09/18/2011 Unknown GFR CALC 6615048 GFR AA >60 ML/MIN 09/17/2011 Unknown GFR CALC 6385448 GFR NON-AA >60 ML/MIN 09/17/2011 Unknown VITAMIN B 12 FOLIC ACID 89980|77328 VIT B 12 405 PG/ML 08/24 Unknown VITAMIN B 12 FOLIC ACID 88532|92602 FOLIC ACID 17.5 NG/ML Unknown COMPREHENSIVE METABOLIC 28829 AST 19 U/L 2011 Unknown COMPREHENSIVE METABOLIC 06360 ALT 19 IU/L 2011 Unknown COMPREHENSIVE METABOLIC 92950 BUN 12 MG/DL 2011 Unknown COMPREHENSIVE METABOLIC 16468 ALBUMIN 4.9 GM/DL 2011 Unknown COMPREHENSIVE METABOLIC 17019 CHLORIDE 98 MMOL/L 2011 Unknown COMPREHENSIVE METABOLIC 49015 BILI TOT 1.2 MG/DL 2011 Unknown COMPREHENSIVE METABOLIC 21881 ALK PHOS 60 U/L 2011 Unknown COMPREHENSIVE METABOLIC 43801 SODIUM 133 MMOL/L 09/16 Unknown COMPREHENSIVE METABOLIC 73453 CREATININE 1.12 MG/DL 08/24 Unknown COMPREHENSIVE METABOLIC 09548 CALCIUM 10.1 MG/DL 09/16 Unknown COMPREHENSIVE METABOLIC 07733 POTASSIUM 4.1 MMOL/L 09/16 Unknown COMPREHENSIVE METABOLIC 86414 PROT TOT 7.6 GM/DL 2011 Unknown COMPREHENSIVE METABOLIC 31694 Glucose 121 MG/DL 2011 Unknown COMPREHENSIVE METABOLIC 36121 BICARB 25 MMOL/L 2011 Unknown COMPREHENSIVE METABOLIC 72316 ANION GAP 10 MEQ/L 2011 Unknown COMPLETE BLOOD COUNT 86452 WBC 5.8 10e9/L 09/17/19 12 Unknown COMPLETE BLOOD COUNT 84148 RBC 5.01 10e12/L 2011 Unknown COMPLETE BLOOD COUNT 42864 HGB 16.4 g/dL 2 Unknown COMPLETE BLOOD COUNT 99429 HCT DET 46.7 % 2 Unknown COMPLETE BLOOD COUNT 96070 MCV 93.2 fL 2 Unknown COMPLETE BLOOD COUNT 99178 MCH 32.7 pg 2 Unknown COMPLETE BLOOD COUNT 14813 MCHC 35.1 g/dL 2 Unknown COMPLETE BLOOD COUNT 71829 PLT 275 10e9/L 09/17/19 12 Unknown COMPLETE BLOOD COUNT 02647 MPV 10.8 fL 2 Unknown COMPLETE BLOOD COUNT 11522 GARY % 47.1 % 2 Unknown COMPLETE BLOOD COUNT 06315 LY % 37.2 % 2 Unknown COMPLETE BLOOD COUNT 91950 MON % 9.5 % 2 Unknown COMPLETE BLOOD COUNT 14417 EOS % 5.9 % 2 Unknown COMPLETE BLOOD COUNT 80678 BASO % 0.3 % 2 Unknown COMPLETE BLOOD COUNT 93888 RDW 13.0 % 2 Unknown COMPLETE BLOOD COUNT 79677 ABS GARY 2.73 10e9/L 012 Unknown COMPLETE BLOOD COUNT 88302 ABS LYMPH 2.16 10e9/L 012 Unknown COMPLETE BLOOD COUNT 31767 ABS MONO 0.55 10e9/L 012 Unknown COMPLETE BLOOD COUNT 77356 ABS EOS 0.34 10e9/L 012 Unknown COMPLETE BLOOD COUNT 15719 ABS BASO 0.02 10e9/L 012 Unknown COMPLETE BLOOD COUNT 70887 RDW-SD 43.1 fL 2 Unknown LIPID GROUP 91293 HDL TEST 39 MG/DL 09/17/2011 Unknown LIPID GROUP 26453 TRIG 195 MG/DL 09/17/2011 Unknown LIPID GROUP 08697 TEST LDL 98 MG/DL 09/17/2011 Unknown LIPID GROUP 44526 CHOL 176 MG/DL 09/17/2011 Unknown LIPID GROUP 40981 RCHOL/HDL 4.51 RATIO 09/17/2011 Unknow n THYROID STIMULATING HORMONE 33734 TSH 2.892 uIU/ML 08/29/2010 Unknown COMPLETE BLOOD COUNT 89244 WBC 6.5 10e9/L 08/30/19 11 Unknown COMPLETE BLOOD COUNT 03451 RBC 4.83 10e12/L 2010 Unknown COMPLETE BLOOD COUNT 70360 HGB 15.9 g/dL 1 Unknown COMPLETE BLOOD COUNT 72449 HCT DET 44.4 % 1 Unknown COMPLETE BLOOD COUNT 55052 MCV 91.9 fL 1 Unknown COMPLETE BLOOD COUNT 81387 MCH 32.9 pg 1 Unknown COMPLETE BLOOD COUNT 56531 MCHC 35.8 g/dL 1 Unknown COMPLETE BLOOD COUNT 35784 PLT 273 10e9/L 08/30/19 11 Unknown COMPLETE BLOOD COUNT 01667 MPV 10.1 fL 1 Unknown COMPLETE BLOOD COUNT 77085 GARY % 45.3 % 1 Unknown COMPLETE BLOOD COUNT 90628 LY % 39.3 % 1 Unknown COMPLETE BLOOD COUNT 32820 MON % 9.8 % 1 Unknown COMPLETE BLOOD COUNT 13855 EOS % 5.4 % 1 Unknown COMPLETE BLOOD COUNT 72477 BASO % 0.2 % 1 Unknown COMPLETE BLOOD COUNT 19257 RDW 13.2 % 1 Unknown COMPLETE BLOOD COUNT 62793 ABS GARY 2.94 10e9/L 011 Unknown COMPLETE BLOOD COUNT 89872 ABS LYMPH 2.55 10e9/L 011 Unknown COMPLETE BLOOD COUNT 54009 ABS MONO 0.64 10e9/L 011 Unknown COMPLETE BLOOD COUNT 53206 ABS EOS 0.35 10e9/L 011 Unknown COMPLETE BLOOD COUNT 16194 ABS BASO 0.01 10e9/L 011 Unknown COMPLETE BLOOD COUNT 83483 RDW-SD 43.5 fL 1 Unknown FREE T4 09039 FREE T4 1.39 NG/DL 08/29/2010 Unknown LIPID GROUP 52177 HDL TEST 52 MG/DL 08/29/2010 Unknown LIPID GROUP 86685 TRIG 110 MG/DL 08/29/2010 Unknown LIPID GROUP 89961 TEST LDL 109 MG/DL 08/29/2010 Unknown LIPID GROUP 34366 CHOL 183 MG/DL 08/29/2010 Unknown LIPID GROUP 64174 RCHOL/HDL 3.52 RATIO 08/29/2010 Unknow n PSA EQUIMOLAR NITHIN 56128 PSA EQ 1.14 NG/ML 1 Unknown GFR CALC 8861280 GFR AA >60 ML/MIN 08/29/2010 Unknown GFR CALC 8283255 GFR NON-AA >60 ML/MIN 08/29/2010 Unknown COMPREHENSIVE METABOLIC 16651 AST 23 U/L 2010 Unknown COMPREHENSIVE METABOLIC 54387 ALT 19 IU/L 2010 Unknown COMPREHENSIVE METABOLIC 22097 BUN 12 MG/DL 2010 Unknown COMPREHENSIVE METABOLIC 65275 ALBUMIN 4.9 GM/DL 2010 Unknown COMPREHENSIVE METABOLIC 41052 CHLORIDE 95 MMOL/L 2010 Unknown COMPREHENSIVE METABOLIC 88365 BILI TOT 0.4 MG/DL 2010 Unknown COMPREHENSIVE METABOLIC 43172 ALK PHOS 59 U/L 2010 Unknown COMPREHENSIVE METABOLIC 15040 SODIUM 132 MMOL/L 08/29 Unknown COMPREHENSIVE METABOLIC 70502 CREATININE 0.96 MG/DL 08/2010 Unknown COMPREHENSIVE METABOLIC 46246 CALCIUM 10.6 MG/DL 08/29 Unknown COMPREHENSIVE METABOLIC 79855 POTASSIUM 4.0 MMOL/L 08/29 Unknown COMPREHENSIVE METABOLIC 74651 PROT TOT 8.0 GM/DL 2010 Unknown COMPREHENSIVE METABOLIC 80687 Glucose 105 MG/DL 2010 Unknown COMPREHENSIVE METABOLIC 22842 BICARB 22 MMOL/L 2010 Unknown COMPREHENSIVE METABOLIC 00516 ANION GAP 15 MEQ/L 2010 Unknown URIC ACID 82776 URIC ACID 6.7 MG/DL 12/12/2009 Unknown Procedures Procedure Codes Date ROUTINE VENIPUNCTURE CPT-4: 10351 04/18/2020 COMPREHEN METABOLIC PANEL CPT-4: 07432 04/18/2020 LIPID PANEL CPT-4: 58493 04/18/2020 A1C HPLC CPT-4: 46964 04/18/2020 PPPS, subseq visit CPT-4: G0439 10/12/2019 ROUTINE VENIPUNCTURE CPT-4: 74550 01/29/2018 COMPREHEN METABOLIC PANEL CPT-4: 62880 01/29/2018 LIPID PANEL CPT-4: 67042 01/29/2018 A1C HPLC CPT-4: 28274 01/29/2018 HEPATITIS C AB TEST CPT-4: 97623 01/29/2018 ROUTINE VENIPUNCTURE CPT-4: 49428 05/01/2017 ASSAY THYROID STIM HORMONE CPT-4: 86154 05/01/2017 COMPREHEN METABOLIC PANEL CPT-4: 78233 05/01/2017 COMPLETE CBC W/AUTO DIFF WBC CPT-4: 11281 05/01/2017 LIPID PANEL CPT-4: 29560 05/01/2017 A1C HPLC CPT-4: 88132 05/01/2017 ASSAY OF PSA TOTAL CPT-4: 87983 05/01/2017 ROUTINE VENIPUNCTURE CPT-4: 61354 01/04/2016 ASSAY OF FREE THYROXINE CPT-4: 35709 01/04/2016 ASSAY THYROID STIM HORMONE CPT-4: 58405 01/04/2016 COMPREHEN METABOLIC PANEL CPT-4: 33593 01/04/2016 COMPLETE CBC W/AUTO DIFF WBC CPT-4: 43846 01/04/2016 LIPID PANEL CPT-4: 42682 01/04/2016 ASSAY OF PSA TOTAL CPT-4: 23346 01/04/2016 A1C HPLC CPT-4: 10493 01/04/2016 ROUTINE VENIPUNCTURE CPT-4: 17198 02/02/2015 ASSAY OF FREE THYROXINE CPT-4: 15431 02/02/2015 ASSAY THYROID STIM HORMONE CPT-4: 15484 02/02/2015 COMPREHEN METABOLIC PANEL CPT-4: 29415 02/02/2015 COMPLETE CBC W/AUTO DIFF WBC CPT-4: 65424 02/02/2015 LIPID PANEL CPT-4: 68895 02/02/2015 ASSAY OF PSA TOTAL CPT-4: 05643 02/02/2015 A1C HPLC CPT-4: 79625 02/02/2015 THER/PROPH/DIAG INJ SC/IM CPT-4: 69355 07/19/2014 METHYLPREDNISOLONE 40 MG INJ CPT-4: J1030 07/19/2014 TRIAMCINOLONE ACET INJ NOS CPT-4: J3301 07/19/2014 ROUTINE VENIPUNCTURE CPT-4: 54681 06/14/2014 ASSAY OF FREE THYROXINE CPT-4: 98479 06/14/2014 ASSAY THYROID STIM HORMONE CPT-4: 30557 06/14/2014 COMPREHEN METABOLIC PANEL CPT-4: 97983 06/14/2014 COMPLETE CBC W/AUTO DIFF WBC CPT-4: 02870 06/14/2014 A1C HPLC CPT-4: 61941 06/14/2014 VITAMIN B 12 FOLIC ACID CPT-4: 68093|48626 06/14/2014 RBC SED RATE AUTOMATED CPT-4: 87625 06/14/2014 RHEUMATOID FACTOR QUANT CPT-4: 82669 06/14/2014 ANTINUCLEAR ANTIBODIES CPT-4: 88992 06/14/2014 ANTISTREPTOLYSIN O TITER CPT-4: 80313 06/14/2014 ASSAY OF BLOOD/URIC ACID CPT-4: 82267 06/14/2014 C-REACTIVE PROTEIN CPT-4: 30591 06/14/2014 ROUTINE VENIPUNCTURE CPT-4: 80789 03/09/2014 COMPREHEN METABOLIC PANEL CPT-4: 09257 03/09/2014 A1C HPLC CPT-4: 53394 03/09/2014 ROUTINE VENIPUNCTURE CPT-4: 98823 11/18/2013 ASSAY OF FREE THYROXINE CPT-4: 34760 11/18/2013 ASSAY THYROID STIM HORMONE CPT-4: 47500 11/18/2013 COMPREHEN METABOLIC PANEL CPT-4: 91333 11/18/2013 COMPLETE CBC W/AUTO DIFF WBC CPT-4: 04375 11/18/2013 LIPID PANEL CPT-4: 69798 11/18/2013 ASSAY OF PSA TOTAL CPT-4: 51106 11/18/2013 A1C HPLC CPT-4: 62718 11/18/2013 REMOVE FOREIGN BODY CPT-4: 12385 11/09/2013 OCCULT BLOOD FECES CPT-4: 68031 11/09/2013 THER/PROPH/DIAG INJ SC/IM CPT-4: 24192 11/24/2012 VITAMIN B12 INJECTION CPT-4: J3420 11/24/2012 COMPREHEN METABOLIC PANEL CPT-4: 88849 11/03/2012 COMPLETE CBC W/AUTO DIFF WBC CPT-4: 96901 11/03/2012 ASSAY THYROID STIM HORMONE CPT-4: 33121 11/03/2012 ASSAY OF BLOOD/URIC ACID CPT-4: 59436 11/03/2012 ROUTINE VENIPUNCTURE CPT-4: 50606 11/03/2012 ROUTINE VENIPUNCTURE CPT-4: 53918 02/25/2012 COMPREHEN METABOLIC PANEL CPT-4: 99001 02/25/2012 COMPLETE CBC W/AUTO DIFF WBC CPT-4: 81017 02/25/2012 HERPE1/2MG CPT-4: 10769|42496|98063 02/25/2012 THER/PROPH/DIAG INJ SC/IM CPT-4: 17411 09/24/2011 VITAMIN B12 INJECTION CPT-4: J3420 09/24/2011 CEFTRIAXONE SODIUM INJECTION CPT-4: J0696 09/24/2011 THER/PROPH/DIAG INJ SC/IM CPT-4: 32985 09/24/2011 ROUTINE VENIPUNCTURE CPT-4: 54626 09/17/2011 COMPREHEN METABOLIC PANEL CPT-4: 92332 09/17/2011 COMPLETE CBC W/AUTO DIFF WBC CPT-4: 83760 09/17/2011 LIPID PANEL CPT-4: 88821 09/17/2011 VITAMIN B 12 FOLIC ACID CPT-4: 78513|81890 09/17/2011 A1C GLYCOSYLATED HEMOGLOBIN TEST CPT-4: 53005 012 ROUTINE VENIPUNCTURE CPT-4: 25648 08/29/2010 COMPLETE CBC W/AUTO DIFF WBC CPT-4: 17609 08/29/2010 COMPREHEN METABOLIC PANEL CPT-4: 04529 08/29/2010 LIPID PANEL CPT-4: 82926 08/29/2010 ASSAY THYROID STIM HORMONE CPT-4: 56456 08/29/2010 ASSAY OF FREE THYROXINE CPT-4: 39875 08/29/2010 ASSAY OF PSA TOTAL CPT-4: 27132 08/29/2010 THER/PROPH/DIAG INJ SC/IM CPT-4: 21175 12/12/2009 VITAMIN B12 INJECTION CPT-4: J3420 12/12/2009 ROUTINE VENIPUNCTURE CPT-4: 17770 12/12/2009 ASSAY OF BLOOD/URIC ACID CPT-4: 80903 12/12/2009 THER/PROPH/DIAG INJ SC/IM CPT-4: 13334 10/30/2009 VITAMIN B12 INJECTION CPT-4: J3420 10/30/2009 THER/PROPH/DIAG INJ SC/IM CPT-4: 69457 10/01/2009 VITAMIN B12 INJECTION CPT-4: J3420 10/01/2009 THER/PROPH/DIAG INJ SC/IM CPT-4: 63147 10/01/2009 CEFTRIAXONE SODIUM INJECTION CPT-4: J0696 10/01/2009 [...] 97.3 (F) We ight: 149 lbs Code: 83943-2 10/19/2020 Blood Pressure 1: 121/87 Code: 8480-6 Heart Rate 1: 100 bpm Respiratory Rate: 16 bpm SpO2: 96% Temperature: 36.3 (C) / 97.3 (F) We ight: 149 lbs Code: 60518-8 10/01/2020 Blood Pressure 1: 140/84 Code: 8480-6 Heart Rate 1: 100 bpm Respiratory Rate: 18 bpm SpO2: 96% Temperature: 36.6 (C) / 97.9 (F) We ight: 147 lbs Code: 93749-6 09/24/2020 Blood Pressure 1: 112/70 Code: 8480-6 [...] 98.1 (F) We ight: 152 lbs Code: 73729-8 09/12/2020 Blood Pressure 1: 133/70 Code: 8480-6 Heart Rate 1: 100 bpm Respiratory Rate: 16 bpm SpO2: 100% Temperature: 36.5 (C) / 97.7 (F) We ight: 152 lbs Code: 78098-6 04/18/2020 Blood Pressure 1: 144/78 Code: 8480-6 Heart Rate 1: 80 bpm Respiratory Rate: 16 bpm SpO2: 98% Temperature: 36.4 (C) / 97.5 (F) We ight: 160 lbs Code: 03805-2 10/12/2019 Blood Pressure 1: 124/78 Code: 8480-6 BMI: 24.8 Code: 37660-3 Heart Rate 1: 76 bpm Height: 5'8" Code: 8302-2 Respiratory Rate: 20 bpm SpO2: 98% Temperature: 36.6 (C) / 97.9 (F) Weight: 163 lbs Code: 56782-9 04/25/2019 Blood Pressure 1: 140/86 Code: 8480-6 BMI: 24.3 Code: 77236-4 Heart Rate 1: 92 bpm Height: 5'8" Code: 8302-2 Respiratory Rate: 20 bpm SpO2: 98% Temperature: 36.8 (C) / 98.3 (F) Weight: 160 lbs Code: 40369-5 04/12/2019 Blood Pressure 1: 146/86 Code: 8480-6 BMI: 25.4 Code: 57757-1 Heart Rate 1: 88 bpm Height: 5'8" Code: 8302-2 Respiratory Rate: 20 bpm SpO2: 98% Temperature: 36.5 (C) / 97.7 (F) Weight: 167 lbs Code: 16718-8 02/17/2018 Blood Pressure 1: 114/62 Code: 8480-6 Bl ood Pressure 2: 116/70 Code: 8480-6 BMI: 24.9 Code: 82430-6 Heart Rate 1: 76 bpm Height: 5'8" Code: 8302-2 Respiratory Rate: 20 bpm SpO2: 97% Temperature: 36.7 (C) / 98.0 (F) We ight: 164 lbs Code: 14744-7 04/07/2017 Blood Pressure 1: 122/84 Code: 8480-6 BMI: 24.3 Code: 09015-7 Heart Rate 1: 72 bpm Height: 5'8" Code: 8302-2 Respiratory Rate: 20 bpm SpO2: 96% Temperature: 36.9 (C) / 98.4 (F) Weight: 160 lbs Code: 49478-0 09/19/2016 Blood Pressure 1: 124/76 Code: 8480-6 BMI: 24.6 Code: 17581-6 Heart Rate 1: 68 bpm Height: 5'8" Code: 8302-2 Respiratory Rate: 20 bpm SpO2: 96% Temperature: 36.6 (C) / 97.9 (F) Weight: 162 lbs Code: 93513-8 12/18/2015 Blood Pressure 1: 136/70 Code: 8480-6 BMI: 24.3 Code: 56415-2 Heart Rate 1: 84 bpm Height: 5'8" Code: 8302-2 Respiratory Rate: 20 bpm Temperatu re: 36.5 (C) / 97.7 (F) Weight: 160 lbs Code: 42045-0 07/20/2015 Blood Pressure 1: 140/84 Code: 8480-6 BMI: 24.9 Code: 65177-3 Heart Rate 1: 76 bpm Height: 5'8" Code: 8302-2 Respiratory Rate: 20 bpm Temperatu re: 36.6 (C) / 97.9 (F) Weight: 164 lbs Code: 24204-2 02/07/2015 Blood Pressure 1: 164/82 Code: 8480-6 BMI: 25.5 Code: 17635-5 Heart Rate 1: 78 bpm Height: 5'8" Code: 8302-2 Respiratory Rate: 20 bpm Temperatu re: 36.5 (C) / 97.7 (F) Weight: 168 lbs Code: 45304-0 07/19/2014 Blood Pressure 1: 136/94 Code: 8480-6 BMI: 24.8 Code: 04213-3 Heart Rate 1: 88 bpm Height: 5'8" Code: 8302-2 Respiratory Rate: 20 bpm Temperatu re: 36.8 (C) / 98.2 (F) Weight: 163 lbs Code: 98792-7 07/06/2014 Blood Pressure 1: 136/92 Code: 8480-6 BMI: 24.2 Code: 67718-8 Heart Rate 1: 88 bpm Height: 5'8" Code: 8302-2 Respiratory Rate: 20 bpm Temperatu re: 36.9 (C) / 98.4 (F) Weight: 159 lbs Code: 96256-3 07/04/2014 Blood Pressure 1: 116/84 Code: 8480-6 Bl ood Pressure 2: 108/82 Code: 8480-6 Heart Rate 1: 88 bpm Respiratory Rate: 20 bpm Temperature: 3 6.7 (C) / 98.0 (F) Weight: 159 lbs Code: 95758-9 06/14/2014 Blood Pressure 1: 132/90 Code: 8480-6 BMI: 24.6 Code: 62004-2 Heart Rate 1: 100 bpm Height: 5'8" Code: 8302-2 Respiratory Rate: 20 bpm Temperatu re: 37.2 (C) / 99.0 (F) Weight: 162 lbs Code: 06948-6 03/09/2014 Blood Pressure 1: 122/62 Code: 8480-6 BMI: 25.4 Code: 83612-3 Heart Rate 1: 84 bpm Height: 5'8" Code: 8302-2 Respiratory Rate: 20 bpm Temperatu re: 36.6 (C) / 97.8 (F) Weight: 167 lbs Code: 82414-3 01/05/2014 Blood Pressure 1: 124/82 Code: 8480-6 BMI: 25.4 Code: 28229-2 Heart Rate 1: 84 bpm Height: 5'8" Code: 8302-2 Respiratory Rate: 20 bpm Temperatu re: 36.7 (C) / 98.0 (F) Weight: 167 lbs Code: 45827-0 11/09/2013 Blood Pressure 1: 138/82 Code: 8480-6 BMI: 24.5 Code: 66414-1 Heart Rate 1: 84 bpm Height: 5'8" Code: 8302-2 Respiratory Rate: 20 bpm Temperatu re: 37.1 (C) / 98.8 (F) Weight: 161 lbs Code: 40204-2 11/24/2012 Blood Pressure 1: 122/72 Code: 8480-6 BMI: 24.0 Code: 97727-8 Heart Rate 1: 66 bpm Height: 5'8" Code: 8302-2 Respiratory Rate: 20 bpm Temperatu re: 36.5 (C) / 97.7 (F) Weight: 158 lbs Code: 91042-2 11/03/2012 Blood Pressure 1: 130/84 Code: 8480-6 BMI: 23.7 Code: 92294-9 Heart Rate 1: 72 bpm Height: 5'8" Code: 8302-2 Respiratory Rate: 20 bpm Temperatu re: 36.2 (C) / 97.1 (F) Weight: 156 lbs Code: 26708-1 02/25/2012 Blood Pressure 1: 142/84 Code: 8480-6 BMI: 25.1 Code: 84771-4 Heart Rate 1: 68 bpm Height: 5'8" Code: 8302-2 Temperature: 37.2 (C) / 99.0 (F) Weight: 165 lbs Code: 25730-0 10/08/2011 Blood Pressure 1: 126/80 Code: 8480-6 BMI: 24.3 Code: 28119-5 Heart Rate 1: 84 bpm Height: 5'8" Code: 8302-2 Respiratory Rate: 20 bpm Temperatu re: 36.8 (C) / 98.2 (F) Weight: 160 lbs Code: 47180-1 09/24/2011 Blood Pressure 1: 136/80 Code: 8480-6 BMI: 24.3 Code: 19365-4 Heart Rate 1: 84 bpm Height: 5'8" Code: 8302-2 Respiratory Rate: 20 bpm Temperatu re: 36.8 (C) / 98.2 (F) Weight: 160 lbs Code: 19886-9 09/17/2011 Blood Pressure 1: 128/84 Cod e: 8480-6 09/09/2011 Blood Pressure 1: 142/84 Code: 8480-6 BMI: 24.3 Code: 74527-2 Height: 5'8" Code: 8302-2 Temperature: 36.7 (C) / 98.0 (F) Weight: 160 lbs Code : 57353-5 08/29/2010 Blood Pressure 1: 144/84 Code: 8480-6 Heart Rate 1: 72 bpm Temperature: 36.8 (C) / 98.2 (F) Weight: 156 lbs Code: 46371-9 12/12/2009 Blood Pressure 1: 146/88 Code: 8480-6 Heart Rate 1: 76 bpm Temperature: 36.6 (C) / 97.9 (F) Weight: 152 lbs Code: 81628-9 10/30/2009 Blood Pressure 1: 132/70 Code: 8480-6 Heart Rate 1: 80 bpm Temperature: 36.9 (C) / 98.4 (F) Weight: 151 lbs Code: 73676-4 10/01/2009 Blood Pressure 1: 142/86 Code: 8480-6 BMI: 23.0 Code: 24251-7 Heart Rate 1: 84 bpm Height: 5'8" Code: 8302-2 Temperature: 36.9 (C) / 98.4 (F) Weight: 151 lbs Code: 99345-5 Functional Status No Functional Status data Reason [...] 10/01/2009 establishing vis it, being treated for [place] Spotted Fever Encounters Encounter Performer Location Codes Date () OFFICE/OUTPATIENT VISIT EST Diagnosis: Pulmonary nodules[ICD10: R91.8] Diagnosis: Supraclavicular adenopathy[ICD10: R59.0] Diagnosis: Thrombocytopenia[ICD10: D69.6] Estephanie Dyan GALARZA S . [facility] CPT-4: 92762 10/26/2020 ([id number]) OFFICE/OUTPATIENT VISIT EST Diagnosis: Mass of left lung[ICD10: R91.8] Diagnosis: Supraclavicular adenopathy[ICD10: R59.0] Diagnosis: On anticoagulant therapy[ICD10: Z79.01] Diagnosis: Other acute pulmonary embolism without acute cor pulmonale[ICD10: I26.99] Diagnosis: Lymphadenopathy[ICD10: R59.1] Diagnosis: Thrombocytopenia[ICD10: D69.6] Diagnosis: Pericardial effusion[ICD10: I31.3] Estephanie Dyan [facility]: 39840 10/22/2020 ([id number]) OFFICE/OUTPATIENT VISIT EST Diagnosis: Supraclavicular adenopathy[ICD10: R59.0] Diagnosis: Difficulty swallowing[ICD10: R13.10] Estephanie Dyan MARI S. [facility] CPT-4: 65761 10/19/2020 ([id number]) OFFICE/OUTPATIENT VISIT EST Diagnosis: On anticoagulant therapy[ICD10: Z79.01] Diagnosis: Acute deep vein thrombosis (DVT) of femoral vein of right lower extremity[ICD10: I82.411] Estephanie [facility]yan [facility] CPT-[facility] : 89355 10/01/2020 ([id number]) OFFICE/OUTPATIENT VISIT EST Diagnosis: Right leg DVT[ICD10: I82.401] Tracie [facility] CPT-[facility]: 67269 09/24/2020 ([id number]) OFFICE/OUTPATIENT VISIT EST Diagnosis: Acute deep vein thrombosis (DVT) of femoral vein of right lower extremity[ICD10: I82.411] Diagnosis: On anticoagulant therapy[ICD10: Z79.01] Estephanie Dyan [facility] CPT-[facility]: 12428 09/17/2020 ([id number]) OFFICE/OUTPATIENT VISIT EST Diagnosis: Acute deep vein thrombosis (DVT) of femoral vein of right lower extremity[ICD10: I82.411] Estephanie OconnorClark THIAGO [facility] CPT-4 : 99920 09/14/2020 ([id number]) OFFICE/OUTPATIENT VISIT EST Diagnosis: Fall down stairs, initial encounter[ICD10: W10.8XXA] Diagnosis: Right leg swelling[ICD10: M79.89] Diagnosis: Right leg pain[ICD10: M79.604] Estephanie Oconnor Clark [facility] CPT-4: 35896 09/12/2020 ([id number]) OFFICE/OUTPATIENT VISIT EST Diagnosis: Hypertension[ICD10: I10] Diagnosis: Hyperglycemia, unspecified[ICD10: R73.9] Diagnosis: Mixed hyperlipidemia[ICD10: E78.2] Tracie MOHAN ElvinClark THIAGO [facility] CPT-4: 49979 04/18/2020 ([id number]) OFFICE/OUTPATIENT VISIT EST 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] Diagnosis: Cat scratch[ICD10: W55.03XA] Diagnosis: Hypertension[ICD10: I10] Diagnosis: Pulmonary nodules[ICD10: R91.8] Tracie Nikhilwaleska GALARZA ElvinClark THIAGO [facility] CPT-4: 43395 04/25/2019 ([id number]) OFFICE/OUTPATIENT VISIT EST 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] Diagnosis: Dysphagia[ICD10: R13.10] Tracie GALARZA ElvinClark HOOD CHARLENE [facility] CPT-4: 23073 04/12/2019 ([id number]) PER PM REEVAL EST PAT 65+ YR Diagnosis: Encounter for general adult medical examination without abnormal findings[ICD10: Z00.00] Diagnosis: Essential (primary) hypertension[ICD10: I10] Diagnosis: Hyperglycemia, unspecified[ICD10: R73.9] Tracie GALARZA ElvinClark TH[facility]AGO [facility] CPT-4: 08440 02/17/2018 ([id number]) NURSE/OUTPATIENT VISIT EST Diagnosis: Essential (primary) hypertension[ICD10: I10] Diagnosis: Mixed hyperlipidemia[ICD10: E78.2] Diagnosis: Hyperglycemia, unspecified[ICD10: R73.9] Diagnosis: Encounter for screening for other viral diseases[ICD10: Z11.59] Tracie Howard [facility] CPT-4: 33079 01/29/2018 ([id number]) OFFICE/OUTPATIENT VISIT EST Diagnosis: Encounter for general adult medical examination without abnormal findings[ICD10: Z00.00] Diagnosis: Mixed hyperlipidemia[ICD10: E78.2] Diagnosis: Essential (primary) hypertension[ICD10: I10] Diagnosis: Impaired fasting glucose[ICD10: R73.01] Diagnosis: Encounter for screening for malignant neoplasm of prostate[ICD10: Z12.5] Tracie Howard [facility] CPT-4: 04747 05/01/2017 ([id number]) OFFICE/OUTPATIENT VISIT EST Diagnosis: URI, ACUTE[ICD10: J06.9] Tracie CHANG [facility] CPT-4: 85074 04/07/2017 OFFICE/OUTPATIENT VISIT EST Diagnosis: Essential (primary) hypertension[ICD10: I10] Ashley Howard [facility] CPT-4: 47984 09/19/2016 ([id number]) OFFICE/OUTPATIENT VISIT EST Diagnosis: Encounter for general adult medical examination without abnormal findings[ICD10: Z00.00] Diagnosis: Essential (primary) hypertension[ICD10: I10] Diagnosis: Impaired fasting glucose[ICD10: R73.01] Tracie Howard [facility] CPT-4: 99232 01/04/2016 ([id number]) OFFICE/OUTPATIENT VISIT EST Diagnosis: Essential (primary) hypertension[ICD10: I10] Diagnosis: Mixed hyperlipidemia[ICD10: E78.2] Diagnosis: Impaired fasting glucose[ICD10: R73.01] Tracie Howard [facility] CPT-4: 73435 12/18/2015 ([id number]) PREV VISIT EST AGE 40-64 Diagnosis: Encounter for general adult medical examination without abnormal findings[ICD10: Z00.00] Diagnosis: Essential (primary) hypertension[ICD10: I10] Ashley [facility] CPT-[facility]: 99986 07/20/2015 OFFICE/OUTPATIENT VISIT EST Diagnosis: Mixed hyperlipidemia[ICD10: E78.2] Diagnosis: Impaired fasting glucose[ICD10: R73.01] Diagnosis: Insomnia, unspecified[ICD10: G47.00] Jacque MongeSharonjorge luis DURAN KAMALJIT Lee [facility] CPT-4: 94569 02/07/2015 ([id number]) OFFICE/OUTPATIENT VISIT EST Diagnosis: Encounter for general adult medical examination without abnormal findings[ICD10: Z00.00] Diagnosis: Essential (primary) hypertension[ICD10: I10] Diagnosis: Mixed hyperlipidemia[ICD10: E78.2] Tracie MOHAN Lee [facility] CPT-4: 42572 02/02/2015 ([id number]) OFFICE/OUTPATIENT VISIT EST Diagnosis: SINUSITIS, ACUTE[ICD9: 461.9] Jacque MongeSharonjorge luis TRACIE [facility] CPT-4: 93480 07/19/2014 ([id number]) OFFICE/OUTPATIENT VISIT EST Diagnosis: Hypotension[ICD9: 458.9] Diagnosis: DYSPEPSIA[ICD9: 536.8] Diagnosis: HYPERTENSION[ICD9: 401.9] Tracie GALARZA ElvinClark [facility] CPT-4: 11393 07/06/2014 ([id number]) OFFICE/OUTPATIENT VISIT EST Diagnosis: DIZZINESS/VERTIGO[ICD9: 780.4] Diagnosis: HYPOTENSION[ICD9: 458.9] Diagnosis: MALAISE AND FATIGUE[ICD9: 780.79] Tracie Murillo [facility]Clark [facility] CPT-4: 46335 07/04/2014 ([id number]) OFFICE/OUTPATIENT VISIT EST Diagnosis: ARTHRALGIA-MULTIPLE SITES[ICD9: 719.49] Diagnosis: CEPHALGIA[ICD9: 784.0] Diagnosis: Uveitis[ICD9: 364.3] Tracie GALARZA ElvinClark [facility] CPT-4: 74901 06/14/2014 ([id number]) OFFICE/OUTPATIENT VISIT EST Diagnosis: HYPERTENSION[ICD9: 401.9] Diagnosis: OTHER ABNORMAL GLUCOSE[ICD9: 790.29] Tracie KEYES DO [facility] CPT-4: 18656 03/09/2014 ([id number]) OFFICE/OUTPATIENT VISIT EST Diagnosis: OTHER ABNORMAL GLUCOSE[ICD9: 790.29] Tracie KEYES DO [facility] CPT-4: 43648 01/05/2014 ([id number]) OFFICE/OUTPATIENT VISIT EST Diagnosis: ROUTINE MEDICAL EXAM[ICD9: V70.0] Tracie KEYES [facility] CPT-4: 86484 11/18/2013 ([id number]) PREV VISIT EST AGE 40-64 Diagnosis: ROUTINE MEDICAL EXAM[ICD9: V70.0] Diagnosis: HYPERLIPIDEMIA NEC/NOS[ICD9: 272.4] Diagnosis: FOREIGN BODY FINGER[ICD9: 915.6] Tracie KEYES [facility] CPT-4: 25001 11/09/2013 ([id number]) OFFICE/OUTPATIENT VISIT EST Diagnosis: CERVICALGIA[ICD9: 723.1] Diagnosis: B12 DEFIC ANEMIA NEC[ICD9: 281.1] Diagnosis: DISTURBANCE OF SKIN SENSATION (Paresthesia)[ICD9: 782.0] Tracie KEYES [facility] CPT-4: 66615 11/24/2012 OFFICE/OUTPATIENT VISIT EST Diagnosis: Neck pain on left side[ICD9: 723.1] Diagnosis: Tendonitis of elbow, left[ICD9: 727.09] Jacque Lopez TRACIE KEYES [facility] CPT-4: 22029 11/03/2012 OFFICE/OUTPATIENT VISIT EST Diagnosis: Oral lesion[ICD9: 528.9] Diagnosis: Herpes zoster[ICD9: 053.9] Diagnosis: FEBRILE ILLNESS[ICD9: 780.60] Liz Randall TRCAIE KEYES [facility] CPT-4: 41650 02/25/2012 OFFICE/OUTPATIENT VISIT EST Diagnosis: MALAISE AND FATIGUE[ICD9: 780.79] Diagnosis: B12 DEFIC ANEMIA NEC[ICD9: 281.1] Diagnosis: SPOTTED FEVERS[ICD9: 082.0] Diagnosis: SPASM OF MUSCLE[ICD9: 728.85] Tracie OBRIENER DO [facility] CPT-4: 88068 10/08/2011 ([id number]) OFFICE/OUTPATIENT VISIT EST Diagnosis: MALAISE AND FATIGUE[ICD9: 780.79] Diagnosis: SPOTTED FEVERS[ICD9: 082.0] Diagnosis: B12 DEFIC ANEMIA NEC[ICD9: 281.1] Tracie CALVONDER DO [facility] CPT-4: 62257 09/24/2011 ([id number]) OFFICE/OUTPATIENT VISIT EST Diagnosis: B12 DEFIC ANEMIA NEC[ICD9: 281.1] Diagnosis: HYPERTENSION[ICD9: 401.9] Diagnosis: MALAISE AND FATIGUE[ICD9: 780.79] Diagnosis: OTHER ABNORMAL GLUCOSE[ICD9: 790.29] Tracie CALVONDER DO [facility] CPT-4: 64817 09/17/2011 OFFICE/OUTPATIENT VISIT EST Diagnosis: NONVENOM ARTHROPOD BITE[ICD9: 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 ORENDER DO [facility] CPT-4: 80073 10/30/2009 ([id number]) OFFICE/OUTPATIENT VISIT, NEW Tracie CHAVEZ SClark ORENDER DO [facility] CPT-4: 66011 10/01/2009 Plan of Care Planned Activity Notes Codes Status Date Visit Diagnosis Plan: Pulmonary nodules Discussion: PE T scan results not available at time of visit- request sent to [facility]. Will call patient with results. Discussed probable [...] 10/22/2020 Appointment: Estephanie Zaidi WPtel: [phone] [facility] US FOLLOW UP 10/22/2020 Patient Education: Patient Medication Summary Completed 10/22/2020 Care Plan: CT SOFT TISSUE NECK W/O DYE L OINC : 79397-8 Pending 10/22/2020 Visit Diagnosis Plan: Supraclavicular adenopathy Discu ssion: Will send for stat CT neck chest with contrast and labs at [facility] ICD-9 : 785.6 ICD-10 : R59.0 10/19/2020 Appointment: Estephanie Zaidi [facility]el[facility] [phone] [facility] [place] AC[facility] 10/19/2020 Patient Education: Patient [...] 10/01/2020 Appointment: Estephanie Zaidi [facility]Ptel[facility] [phone] [facility] [place] FO[facility] 10/01/2020 Patient Education: Patient Medication Summary Completed 10/01/2020 Visit Diagnosis Plan: Right leg DVT Discussion: Contin ue eliquis at 5mg po BID Recheck 1 week Discussed repeating US of RLE at 3mos and staying on eliquis until then Discussed clotting studies after off eliquis for 1month in future ICD-9 : 453.40 ICD-10 : I82.401 09/24/2020 Appointment: Tracie Keyes WPtel: [phone] [facility] FOLLOW UP 09/24/2020 Visit Diagnosis Plan: On [...] extremity Discussion: Swelling decreasing. F/U 1 w [place] for recheck. ICD-9 : 453.41 ICD-10 : I82.411 09/17/2020 Appointment: Estephanie Zaidi WPtel: [phone] [facility] FOLLOW UP 09/17/2020 Patient Education: Patient Medication Summary Completed 09/17/2020 Patient Education: Eliquis- Opt[employer] Coupon [id number] https://www.[place]/[employer]/resources/getResource/61/j98begsv-8xbs-586n-44 Completed 09/17/2020 Patient Education: tramadol- [employer] Coupon [id number] https://www.[place]/[employer]/resources/getResource/61/wsy89639-we89-3i20-47 Completed 09/17/2020 Visit Diagnosis Plan: Acute deep [...] 09/12/2020 Appointment: Estephanie Zaidi WPtel: [phone] [facility] ACUTE ILLNESS 09/12/2020 Patient Education: Patient Medication [...] : R73.9 04/18/2020 Appointment: Tracie Keyes WPtel: [address] [place], [place] [phone] FOLLOW UP 04/18/2020 Patient Education: lisinopril- Opt[employer] Coupon [id number] https://www.[employer]/samplemd/resources/getResource/61/168668ze-kuch-75u7-99 Completed 04/18/2020 Visit Diagnosis Plan: Essential (primary) hypertension Discussion: Stable on lisinopril ICD-9 : 401.9 ICD-10 : I10 10/12/2019 Visit Diagnosis Plan: Encounter for [facility] adult medical examination without abnormal findings Discussion: Mediterranean diet Combinati on of cardio and weight bearing exercise Will return for fasting lab next week ICD-9 : V70.0 ICD-10 : Z00.00 10/12/2019 Visit Diagnosis Plan: Hyperglycemia, unspecified Discu ssion: Will return for HbA1C next week ICD-9 : 790.29 ICD-10 : R73.9 10/12/2019 Appointment: Tracie Keyes WPtel: [address] [place], [place] [phone] INSIDE Annual Well Visit 10/12/2019 Appointment: Viridiana Lima [address] FOLLOW UP 05/16/2019 Visit Diagnosis Plan: [...] : W55.03XA 04/25/2019 Appointment: Tracie Keyes WPtel: [address] [place], [place] [phone] Hospital Follow Up 04/25/2019 Patient Education: nystatin- [employer] Coupon [id number] https://www.IR[employer] Connect.com/samplemd/resources/getResource/61/83937vu9-2303-82i4-9f Completed 04/25/2019 Visit Diagnosis Plan: Submandibular gland [...] : K11.1 04/12/2019 Appointment: Tracie Keyes WPtel: [address] [place], [place] [phone] 04/12/2019 Appointment: Tracie Keyes WPtel: [address] [place] [address] LM CANCELED 08/09/2018 Visit Diagnosis Plan: Essential (primary) hypertension Discussion: Stable ICD-9 : 401.9 ICD-10 : I10 02/17/2018 Visit Diagnosis Plan: Encounter for [facility] adult medical examination without abnormal findings Discussion: Lab discussed Refuses prosta te check Refuses colonoscopy Will check with pharmacy on Shingrix/Flu shot and Prevnar ICD-9 : V70.0 ICD-10 : Z00.00 02/17/2018 Visit Diagnosis Plan: Hyperglycemia, unspecified Discu ssion: Wants to focus on diet/exercise and recheck in 6mos ICD-9 : 790.29 ICD-10 : R73.9 02/17/2018 Appointment: Tracie Keyes WPtel: [address] [place] [address] Annual Well Visit 02/17/2018 Appointment: Tracie Keyes WPtel: [address] [place], [place] [phone] US LAB 01/29/2018 Appointment: Tracie Keyes WPtel: [address] [place], [place] [phone] US LAB 05/01/2017 Patient Education: Patient Medication [...] Rest, Fluids... 04/07/2017 Appointment: Tracie Keyes WPtel: [address] [place] [address] ACUTE ILLNESS 04/07/2017 Patient Education: Patient Medication Summary Completed 04/07/2017 Visit Plan: Had meds refilled for 6 joseph hs the other day. RTC 6 months Described s/s of heart disease that he would need to report for to us or ER/UC. 09/19/2016 Appointment: Ashley [facility]ren[facility] [phone] [facility] 09/18 lm`sl FOLLOW UP 09/19/2016 Patient Education: Patient Medication Summary Completed 09/19/2016 Appointment: Tracie Keyes WPtel: [phone] [place], [place] [id number] [place] LAB 01/04/2016 Patient Education: Patient Medication Summary Completed 01/04/2016 Visit Plan: Will get flu shot at work Up date fasting lab 12/18/2015 Appointment: Tracie Keyes WPtel: [phone] [place], [place] [phone] 12/16 lm~sl FOLLOW UP 12/18/2015 Patient Education: Patient Medication Summary Completed 12/18/2015 Visit Plan: Pt declined rectal/prostate exam. Encouraged to get colonoscopy Plan labs for fall 2015 Continue on current meds but send in home B/P since today's B/P is elevated to see if dosage change is indicated. RTC in 6 months 07/20/2015 Appointment: Ashley Crenshaw WPtel: [address] [place], [place] [id number] 07/18 lm ~sl Annual Well Visit 07/20/2015 Patient Education: Patient Medication Summary Completed 07/20/2015 Visit Plan: Resume BP med Resume Metform in( has been off > 9 months) Add HgbA1C to labs drawn last week, Trial of Selinor for sleep. Will let us know how he does with it. 02/07/2015 Appointment: Jacque [facility]el[facility] [phone] [facility] 02/06/15 vm cn....appt confirmed cn FOLLOW UP 02/07/2015 Patient Education: Patient Medication Summary Completed 02/07/2015 Patient Education: [facility] - Saving AutoInj - Lisinopril - 18-64 - Dynamic Portal ID Completed 02/07/2015 Appointment: Tracie Keyes WPtel: [address] [place] [address] LAB 02/02/2015 Patient Education: Patient Medication Summary Completed 02/02/2015 Appointment: Jacque Lopez WPtel: [address] [place] [address] ACUTE ILLNESS 07/19/2014 Patient Education: Patient Medication Summary Completed 07/19/2014 Visit Plan: Restart Diltiazem Continue t o hydrate Call in 3 days on how doing 07/06/2014 Appointment: Tracie Keyes WPtel: [address] [place] [address] 07/05 appt confirmed cn FOLLOW UP 07/07/19 Patient Education: Patient Medication Summary Completed 07/06/2014 Visit Plan: Hold lisinopril hct Hydrate Recheck 2 days Meclizine 25mg q HS Hold metformin Call in AM 07/04/2014 Appointment: Tracie Keyes WPtel: [address] [place] [address] FOLLOW UP 07/04/2014 Patient Education: Patient Medication Summary Completed 07/04/2014 Appointment: Tracie Keyes WPtel: [address] [place] [address] ACUTE ILLNESS 06/14/2014 Patient Education: Patient Medication Summary Completed 06/14/2014 Appointment: Tracie Keyes WPtel: [address] [place] [address] FOLLOW UP 03/09/2014 Patient Education: Patient Medication Summary Completed 03/09/2014 Visit Plan: Continue metformin at curren t dose Accuchecks daily alternating times Diabetic diet info given Check CMP with HbA1C in 2mos then fwup 01/05/2014 Appointment: Tracie Keyes WPtel: [address] [place], [place] [id number] FOLLOW UP 01/05/2014 Patient Education: Patient Medication Summary Completed 01/05/2014 Visit Plan: Did not need lab so will jus t fwup as scheduled 01/03/2014 Appointment: Tracie Keyes WPtel: [address] [place], [place] [phone] [place] LAB 01/03/2014 Patient Education: Patient Medication Summary Completed 01/03/2014 Appointment: Tracie Keyes WPtel: [address] [place], [place] [phone] US LAB 11/18/2013 Patient Education: Patient Medication Summary Completed 11/18/2013 Visit Plan: Continue current meds Remova l of splinter as above Keflex for 1 week Continue current meds Fwup next week for fasting lab including PSA 11/09/2013 Appointment: Tracie Keyes WPtel: [address] [place], [place] [phone] 11/08 Annual Well Visit 11/09/2013 Patient Education: Patient Medication Summary Completed 11/09/2013 Patient Education: [facility] - Saving AutoInj - Lisinopril - 18+ - Dynamic Portal ID Completed 11/09/2013 Appointment: Tracie Keyes WPtel: [address] [place], [place] [phone] 11/23 left message FOLLOW UP 11/24/2012 Patient Education: Patient Medication Summary Completed 11/24/2012 Appointment: Jacque Lopez WPtel: [address] [place], [place] [phone] FOLLOW UP 11/10/2012 Appointment: Jacque Lopez WPtel: [address] [place], [place] [phone] ACUTE ILLNESS 11/03/2012 Patient Education: Patient Medication Summary Completed 11/03/2012 Appointment: Liz Randall WPtel: [address] [place], [place] [phone] ACUTE ILLNESS 02/25/2012 Patient Education: Patient Medication Summary Completed 02/25/2012 Visit Plan: Finish abx Continue B12 OMT done Add Skelaxin 800mg q HS 10/08/2011 Appointment: Tracie Keyes WPtel: [address] [place], [place] [phone] voicemail FOLLOW UP 10/08/2011 Patient Education: Patient Medication Summary Completed 10/08/2011 Appointment: Tracie Keyes WPtel: [address] [place], [place] [phone] FOLLOW UP 09/24/2011 Patient Education: Patient Medication Summary Completed 09/24/2011 Appointment: Tracie Keyes WPtel: [address] [place], [place] [phone] LAB 09/17/2011 Patient Education: Patient Medication Summary [...] fasting labs. 09/09/2011 Appointment: Liz Randall WPtel: [address] [place], [place] [phone] ACUTE ILLNESS 09/09/2011 Patient Education: Patient Medication Summary Completed 09/09/2011 Visit Plan: Change lisinopril hct to 20/ 12.5mg 2 daily and continue cardizem Check fasting lab--drawn today 08/29/2010 Appointment: Tracie Keyes WPtel: [address] [place], [place] [phone] FOLLOW UP 08/29/2010 Patient Education: Patient Medication Summary Completed 08/29/2010 Appointment: Tracie Keyes WPtel: [address] [place], [place] [phone] [place] FOLLOW UP 12/12/2009 Patient Education: Patient Medication Summary Completed 12/12/2009 Appointment: Tracie Keyes WPtel: [address] [place], [place] [id number] [place] FOLLOW UP 11/27/2009 Visit Plan: Finish Abx B12 given Start d aily 1000mcg B12 Cont allopurinol and check B12 and uric acid in 1mo. 10/30/2009 App[facility]ment: [facility] [phone] [id number] [facility] 10/30/2009 Patient Education: Patient Medication Summary Completed 10/30/2009 App[facility]ment: [facility] [phone] [id number] [place] NEW PATIENT 10/01/2009 Patient Education: Patient Medication Summary Completed 10/01/2009 Referral: Sav Olivo WPtel: [phone] [facility] [place] Referral Initiated Instructions Comment . [...]
--- OUTSIDE RECORDS SUMMARY | 2020-11-05 09:34 | XMS REPORT | CCD ---
Author Author Josh Keyes D.O. Organization [facility] Address [address] [place] [address] Phone Care Team Providers Care Watch Commander Name Role Phone Tracie Keyes D.O., PP Unavailable CCM Unavailable Summary Purpose Interface Exchange Insurance Providers Payer name Policy type / Coverage type Covered alliance party ID Effective Begin Date Effective End Date WPS MEDICARE PART B [place] Medicare Part B [id number] Unknown [facility] Medicare Part B [id number] 2019 Un known Family history Sister Diagnosis Age At Onset seizure disorder Unknown Father Diagnosis Age At Onset Diabetes mellitus Type 2 Unknown Mother Diagnosis Age At Onset Diabetes mellitus Type 2 Unknown Social History Social History Element Codes Description Effective Dates Tobacco history SNOMED CT: 44855930 Currently smokes tobacco Marital status Unknown 10/01/2009 [...] Problems Condition Codes Effective Dates Condition Status Lymphadenopathy ICD-10: R59.1 ICD-9: 785.6 10/22/2020 Active Mass of left lung ICD-10: R91.8 ICD-9: 786.6 10/22/2020 Active On anticoagulant therapy ICD-10: Z79.01 ICD-9: V58.61 09/17/2020 Active Other acute pulmonary embolism without acute cor pulmo nale ICD-10: I26.99 ICD-9: 415.19 10/22/2020 Active Pericardial effusion ICD-10: I31.3 ICD-9: 423.9 10/22/2020 Active Supraclavicular adenopathy ICD-10: R59.0 ICD-9: 785.6 10/19/2020 Active Thrombocytopenia ICD-10: D69.6 ICD-9: 287.5 10/22/2020 Active Difficulty swallowing ICD-10: R13.10 ICD-9: [...] infection ICD-10: B27.90 ICD-9: 075 04/25/2019 Active Pulmonary nodules ICD-10: R91.8 ICD-9: 793.19 04/25/2019 Active 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 [...] E906.4 09/09/2011 Active Hypertension Unknown 10/01/2009 Active [place] spotted fever Unknown 07/24/2009 Act [place] B12 DEFIC ANEMIA NEC ICD-9: 281.1 10/01/2009 Active Hyperuricemia ICD-9: 790.6 10/01/2009 Active Myalgia ICD-9: 729.1 10/01/2009 Active [place] spotted fever ICD-9: 082.0 10/01/2009 Act [place] Medications Medication Codes Instructions Start Date Stop Date Status Fill Instructions Eliquis 5 mg tablet RxNorm: 6537103 Take 1 Tablet(s) Oral two ti mes a day 09/19/2020 12/17/2020 Active tramadol 50 mg tablet RxNorm: 750798 Take 1 Tablet(s) O ral Q8H as needed for pain Take with 2 tylenol 09/17/2020 No Stop Date Active Eliquis 5 mg tablet RxNorm: 0925474 Take 2 Tablet(s) Oral two ti mes a day 09/17/2020 No Stop Date Active lisinopril 40 mg tablet RxNorm: 644578 1 Tablet(s) Oral QD repl aces 20mg dose 04/18/2020 10/15/2020 Inactive Men's Multivitamin 400 mcg-20 mcg-300 mcg tablet RxNorm: 1 Tablet(s) Oral QD 04/18/2020 No Stop Date Active lisinopril 20 mg tablet RxNorm: 189278 1 Tablet(s) Oral QD 03/29/19 21 04/17/2020 Inactive Due for his 6 month appointm ent lisinopril 20 mg tablet RxNorm: 369342 TAKE ONE (1) TAB LET BY MOUTH DAILY... Needs fwup 10/03/2019 11/02/2019 Inactive lisinopril 20 mg tablet RxNorm: 077918 TAKE ONE (1) TABLET BY M OUTH DAILY... 10/03/2019 10/02/2019 Inactive Zithromax 500 mg tablet RxNorm: 645965 1 Tablet(s) Oral QD 04/25/19 20 05/02/2019 Inactive [AttnRPh: Saving apply/adjud icate RxGRP:SG20 RxBIN:[id number] RxPCN: ID#:[id number]] lisinopril 20 mg tablet RxNorm: 245561 1 Tablet(s) Oral QD 04/25/19 20 10/02/2019 Inactive nystatin 100,000 unit/mL oral suspension RxNorm: 444907 5 Milliliter(s) Oral four times a day swish, gargle and spit 04/25/2019 05/09/2019 Inactive diltiazem ER (XR/XT) 120 mg capsule,extended release 2 4 hr, controlled RxNorm: 208148 Capsule(s) 1 Capsule(s) PO QD 06/10/2018 10/11/2019 Inactive [SAVINGS FOR UNINSURED PATIENTS -- BIN:467548, PCN: ASPROD1, Group: AME08, ID# [id number], Process claim through [employer], for questions: . THIS IS NOT INSURANCE.] lisinopril 20 mg-hydrochlorothiazide 12.5 mg tablet RxNorm: 264993 1 Tablet(s) PO QAM 06/10/2018 10/11/2019 Inactive [AttnRPh: Saving apply/adjudicate RxGRP:SG20 RxBIN:[id number] RxPCN: ID#:[id number]] lisinopril 20 mg-hydrochlorothiazide 12.5 mg tablet RxNorm: 470371 1 Tablet(s) PO QAM 05/06/2017 01/30/2018 Inactive [AttnRPh: Saving apply/adjudicate RxGRP:SG20 RxBIN:[id number] RxPCN: ID#:[id number]] diltiazem ER (XR/XT) 120 mg capsule,extended release 2 4 hr, controlled RxNorm: 609446 Capsule(s) 1 Capsule(s) PO QD 05/06/2017 01/30/2018 Inactive [SAVINGS FOR UNINSURED PATIENTS -- BIN:302136, PCN: ASPROD1, Group: AME08, ID# [id number], Process claim through [employer], for questions: . THIS IS NOT INSURANCE.] diltiazem ER (XR/XT) 120 mg capsule,extended release 2 4 hr, controlled RxNorm: 656265 Capsule(s) 1 Capsule(s) PO QD 09/16/2016 03/14/2017 Inactive [SAVINGS FOR UNINSURED PATIENTS -- BIN:223299, PCN: ASPROD1, Group: AME08, ID# [id number], Process claim through [employer], for questions: . THIS IS NOT INSURANCE.] lisinopril 20 mg-hydrochlorothiazide 12.5 mg tablet RxNorm: 521522 1 Tablet(s) PO QAM 09/16/2016 03/14/2017 Inactive [AttnRPh: Saving apply/adjudicate RxGRP:SG20 RxBIN:[id number] RxPCN: ID#:[id number]] diltiazem ER (XR/XT) 120 mg capsule,extended release,control led RxNorm: 626192 1 Capsule(s) PO QD 04/09/2016 10/11/2019 Inactive [SAVINGS FOR UN INSURED PATIENTS -- BIN:163442, PCN: ASPROD1, Group: AME08, ID# [id number], Process claim through [employer], for questions: . THIS IS NOT INSURANCE.] diltiazem ER (XR/XT) 120 mg capsule,extended release,control led RxNorm: 027510 1 Capsule(s) PO QD 04/09/2016 09/15/2016 Inactive [SAVINGS FOR UN INSURED PATIENTS -- BIN:259992, PCN: ASPROD1, Group: AME08, ID# [id number], Process claim through [employer], for questions: . THIS IS NOT INSURANCE.] lisinopril 20 mg-hydrochlorothiazide 12.5 mg tablet RxNorm: 001056 1 Tablet(s) PO QAM 12/10/2015 06/06/2016 Inactive [AttnRPh: Saving apply/adjudicate RxGRP:SG20 RxBIN:[id number] RxPCN: ID#:[id number]] diltiazem ER (XR/XT) 120 mg capsule,extended release,control led RxNorm: 005835 1 Capsule(s) PO QD 02/07/2015 02/01/2016 Inactive [SAVINGS FOR UN INSURED PATIENTS -- BIN:036772, PCN: ASPROD1, Group: AME08, ID# [id number], Process claim through [employer], for questions: . THIS IS NOT INSURANCE.] lisinopril 20 mg-hydrochlorothiazide 12.5 mg tablet RxNorm: 389196 1 Tablet(s) PO QAM 02/07/2015 12/09/2015 Inactive [AttnRPh: Saving apply/adjudicate RxGRP:SG20 RxBIN:[id number] RxPCN: ID#:[id number]] metformin ER 1,000 mg 24 hr tablet,extended release RxNorm: 182420 1 Tablet(s) PO QD 02/07/2015 07/19/2015 Inactive [SAVINGS FOR UNI NSURED PATIENTS -- BIN:279724, PCN: ASPROD1, Group: AME08, ID# [id number], Process claim through [employer], for questions: . THIS IS NOT INSURANCE.] diltiazem ER (XR/XT) 120 mg capsule,extended release,control led RxNorm: 737517 1 Capsule(s) PO QD 12/28/2014 02/06/2015 Inactive [SAVINGS FOR UN INSURED PATIENTS -- BIN:948304, PCN: ASPROD1, Group: AME08, ID# [id number], Process claim through [employer], for questions: . THIS IS NOT INSURANCE.] lisinopril 20 mg-hydrochlorothiazide 12.5 mg tablet RxNorm: 002171 1 Tablet(s) PO QAM 11/20/2014 10/11/2019 Inactive cefdinir 300 mg capsule RxNorm: 229461 2 Capsule(s) PO QD 07/19/2014 07/28/2014 Inactive [SAVINGS FOR NON-COVERED DRUGS -- BIN:00 3585, PCN: ASPROD1, Group: XXXXX, ID# [id number], Questions: . THIS IS NOT INSURANCE.] meclizine 25 mg tablet RxNorm: 217912 1 Tablet(s) PO QHS 07/04/2014 0 10/31/2014 Inactive [SAVINGS FOR NON-COVERED DRUGS -- BIN:00 3585, PCN: ASPROD1, Group: XXXXX, ID# [id number], Questions: . THIS IS NOT INSURANCE.] allopurinol 300 mg tablet RxNorm: 432264 1 Tablet(s) PO QD 06/17/19 15 06/15/2014 Inactive allopurinol 300 mg tablet RxNorm: 019313 1 Tablet(s) PO QD 06/17/19 15 02/06/2015 Inactive [SAVINGS FOR NON-COVERED TATYANA GS -- BIN:165024, PCN: ASPROD1, Group: XXXXX, ID# [id number], Questions: . THIS IS NOT INSURANCE.] naproxen 500 mg tablet RxNorm: 856753 1 Tablet(s) PO BID 06/16/2014 0 07/19/2015 Inactive [SAVINGS FOR NON-COVERED DRUGS -- BIN:00 3585, PCN: ASPROD1, Group: XXXXX, ID# [id number], Questions: . THIS IS NOT INSURANCE.] metformin ER 1,000 mg 24 hr tablet,extended release RxNorm: 891961 1 Tablet(s) PO QD 03/14/2014 02/06/2015 Inactive [SAVINGS FOR UNI NSURED PATIENTS -- BIN:990048, PCN: ASPROD1, Group: AME08, ID# [id number], Process claim through [employer], for questions: . THIS IS NOT INSURANCE.] metformin ER 500 mg tablet,extended release 24hr RxNorm: 860 975 1 Tablet(s) PO QD 01/05/2014 03/13/2014 Inactive [SAVINGS FOR UNI NSURED PATIENTS -- BIN:607369, PCN: ASPROD1, Group: AME08, ID# [id number], Process claim through [employer], for questions: . THIS IS NOT INSURANCE.] metformin ER 500 mg tablet,extended release 24hr RxNorm: 860 975 1 Tablet(s) PO QD 11/28/2013 01/04/2014 Inactive [SAVINGS FOR UNI NSURED PATIENTS -- BIN:515421, PCN: ASPROD1, Group: AME08, ID# [id number], Process claim through [employer], for questions: . THIS IS NOT INSURANCE.] Keflex 500 mg capsule RxNorm: 821732 1 Capsule(s) PO TID 11/09/2013 0 11/15/2013 Inactive [SAVINGS FOR UNINSURED PATIENTS -- BIN:0 25982, PCN: ASPROD1, Group: AME08, ID# [id number], Process claim through [employer], for questions: . THIS IS NOT INSURANCE.] diltiazem ER (XR/XT) 120 mg capsule,extended release,control led RxNorm: 238715 1 Capsule(s) PO QD 11/09/2013 11/03/2014 Inactive [SAVINGS FOR UN INSURED PATIENTS -- BIN:878420, PCN: ASPROD1, Group: MONSERRATEIan, ID# [id number], Process claim through [employer], for questions: . THIS IS NOT INSURANCE.] lisinopril 20 mg-hydrochlorothiazide 12.5 mg tablet RxNorm: 698664 2 Tablet(s) PO QAM 11/09/2013 11/20/2014 Inactive [AttnRPh: Saving apply/adjudicate RxGRP:SG20 RxBIN:[id number] RxPCN: ID#:[id number]] diltiazem ER (XR/XT) 120 mg capsule,extended release,control led RxNorm: 698305 1 Capsule(s) PO QD -need labs 10/31/2013 11/08/2013 Inactive [DELICIA INGS FOR UNINSURED PATIENTS -- BIN:894493, PCN: ASPROD1, Group: TRAN, ID# [id number], Process claim through [employer], for questions: . THIS IS NOT INSURANCE.] lisinopril 20 mg-hydrochlorothiazide 12.5 mg tablet RxNorm: 635714 2 Tablet(s) PO QAM 10/31/2013 11/08/2013 Inactive [AttnRPh: Saving apply/adjudicate RxGRP:SG20 RxBIN:[id number] RxPCN: ID#:[id number]] diltiazem ER (XR/XT) 120 mg capsule,extended release,control led RxNorm: 279257 1 Capsule(s) PO QD -need labs 09/12/2013 10/11/2013 Inactive [DELICIA INGS FOR UNINSURED PATIENTS -- BIN:040870, PCN: ASPROD1, Group: AME08, ID# [id number], Process claim through [employer], for questions: . THIS IS NOT INSURANCE.] Omnicef 300 mg capsule RxNorm: 494034 2 Capsule(s) PO QD 11/24/2012 0 11/08/2013 Inactive naproxen 500 mg tablet RxNorm: 025952 1 Tablet(s) PO TID 11/04/2012 0 11/03/2012 Inactive allopurinol 100 mg tablet RxNorm: 189402 1 Tablet(s) PO BID 013 11/08/2013 Inactive naproxen 500 mg tablet RxNorm: 170655 1 Tablet(s) PO TID 11/04/2012 0 11/08/2013 Inactive diltiazem ER (XR/XT) 120 mg capsule,extended release,control led RxNorm: 514396 1 Capsule(s) PO QD 08/02/2012 09/12/2013 Inactive lisinopril 20 mg-hydrochlorothiazide 12.5 mg tablet RxNorm: 603279 2 Tablet(s) PO QAM 08/02/2012 07/27/2013 Inactive acyclovir 800 mg tablet RxNorm: 479989 1 Tablet(s) PO D Take 1 tablet by mouth 5 times daily 02/26/2012 11/02/2012 Inactive acyclovir 800 mg tablet RxNorm: 125413 1 Tablet(s) PO D 02/25/2012 Inactive clindamycin 300 mg capsule RxNorm: 461402 1 Capsule(s) PO TID 02/2403/02/2012 Inactive lisinopril-hydrochlorothiazide 20 mg-12.5 mg tablet RxNorm: 915717 2 Tablet(s) PO QAM 01/30/2012 08/01/2012 Inactive diltiazem ER (XR/XT) 120 mg capsule,extended release,control led RxNorm: 299759 1 Capsule(s) PO QD 01/30/2012 08/01/2012 Inactive lisinopril-hydrochlorothiazide 20 mg-12.5 mg tablet RxNorm: 630192 2 Tablet(s) PO QAM 01/30/2012 10/11/2019 Inactive diltiazem ER (XR/XT) 120 mg capsule,extended release,control led RxNorm: 734288 1 Capsule(s) PO QD 01/30/2012 10/11/2019 Inactive Culturelle 10 billion cell capsule RxNorm: 086650 1 Capsule(s) PO Q D 10/16/2011 02/24/2012 Inactive Omnicef 300 mg capsule RxNorm: 829319 2 Capsule(s) PO QD 09/24/2011 0 11/02/2012 Inactive diltiazem ER (XR/XT) 120 mg capsule,extended release,control led RxNorm: 477260 1 Capsule(s) PO QD 09/09/2011 01/29/2012 Inactive Culturelle 10 billion cell Cap RxNorm: 346382 1 Capsule (s) PO BID take a few hours after Doxycycline. Probiotic 09/09/2011 09/28/2011 Inactive lisinopril-hydrochlorothiazide 20 mg-12.5 mg tablet RxNorm: 944672 2 Tablet(s) PO QAM 09/09/2011 01/29/2012 Inactive doxycycline hyclate 100 mg Tab RxNorm: 2954054 1 Tablet( s) PO BID antibiotic. (may make a little sensitive to sunburn) 09/09/2011 09/18/2011 Inactiv e lisinopril-hydrochlorothiazide 20 mg-12.5 mg Tab RxNorm: 197 886 2 Tablet(s) PO QAM Due for yearly check-up 09/08/2011 09/08/2011 Inactive diltiazem ER (XR/XT) 120 mg Continuous Release Cap RxNorm: 8 06087 1 Capsule(s) PO QD Due for yearly check-up. 09/08/2011 09/08/2011 Inactive diltiazem ER (XR/XT) 120 mg Continuous Release Cap RxNorm: 8 97005 1 Capsule(s) PO QD 08/29/2010 08/23/2011 Inactive lisinopril-hydrochlorothiazide 20 mg-12.5 mg Tab RxNorm: 197 886 2 Tablet(s) PO QAM 08/29/2010 08/23/2011 Inactive lisinopril-hydrochlorothiazide 20 mg-25 mg Tab RxNorm: 975060 1 Tablet(s) PO QD 08/21/2010 08/28/2010 Inactive allopurinol 100 mg tablet RxNorm: 990567 1 Tablet(s) PO QD 04/22/19 11 08/28/2010 Inactive allopurinol 100 mg Tab RxNorm: 527715 1 Tablet(s) PO QD 12/18/2009 Inactive Allopurinol 100 mg Tab RxNorm: 261518 1 Tablet(s) PO QD 12/12/2009 Inactive Allopurinol 100 mg Tab RxNorm: 954376 1 Tablet(s) PO QD 10/30/2009 Inactive Omnicef 300 mg Cap RxNorm: 218507 2 Capsule(s) PO QD 10/01/200910/29 Inactive Allopurinol 100 mg Tab RxNorm: 059041 1 Tablet(s) PO QD 10/01/2009 Inactive Vitamin D3 oral RxNorm: 2418 oral 04/18/2020 Active Vitamin C oral RxNorm: 1151 oral 04/18/2020 Active Vitamin B12 1000mcg Tablet RxNorm: 1 Tablet(s) PO QD 08/29/2010 Inactive lisinopril 20 mg-hydrochlorothiazide 12.5 mg tablet RxNorm: 958693 1 Tablet(s) PO QAM 11/20/2014 11/19/2014 Inactive Medrol (Sid) 4 mg tablets in a dose pack RxNorm: 578524 Tablet(s) PO as directed 11/09/2013 11/08/2013 Inactive Omnicef 300 mg Cap RxNorm: 994858 2 Capsule(s) PO QD 09/24/201112/11 Inactive Fish Oil 1,000 mg Cap RxNorm: 1 Capsule(s) PO QD 11/09/20132013 Inactive diltiazem ER (XR/XT) 120 mg Continuous Release Cap RxNorm: 8 42337 1 Capsule(s) PO QD 08/29/2010 08/28/2010 Inactive Culturelle 10 billion cell capsule RxNorm: 651427 1 Capsule(s) PO Q D 11/03/2012 11/02/2012 Inactive metformin ER 500 mg tablet,extended release 24hr RxNorm: 860 975 1 Tablet(s) PO QD 11/28/2013 11/27/2013 Inactive Lisinopril Oral RxNorm: Oral 10/01/2009 10/01/2009 Inactive Vitamin B12 1000mcg Tablet RxNorm: 1 Tablet(s) PO QD 12/18/2015 Inactive Vitamin B12 1000mcg Tablet RxNorm: 1 Tablet(s) PO QD 11/09/2013 Inactive lisinopril-hydrochlorothiazide 20 mg-25 mg Tab RxNorm: 609541 1 Tablet(s) PO QD 08/21/2010 2010 Inactive metformin ER 1,000 mg 24 hr tablet,extended release RxNorm: 060481 1 Tablet(s) PO QD 03/14/2014 03/13/2014 Inactive Fish Oil 1,000 mg capsule RxNorm: 1 Capsule(s) PO QD 12/18/2015 Inactive Medication Administered No Medication Administered data Immunizations Vaccine Codes Date Status B12 Unknown 09/24/2011 Results Observation Observation Code Item Item Code Result Date S ervice Location GLYCOSYLATED HEMOGLOBIN TEST 15871 Hgb A1c 99823-3 5.7 % 0 04/18/2020 Unknown GFR CALC 1250500 GFR Non Afr Amr >60 mL/min 04/18/2020 Un known GFR CALC 2239995 GFR Afr Amr >60 mL/min 04/18/2020 Unknow n COMPREHENSIVE METABOLIC 82246 AST 35 U/L 2020 Unknown COMPREHENSIVE METABOLIC 60519 ALT 45 U/L 2020 Unknown COMPREHENSIVE METABOLIC 30325 BUN 10 mg/dL 2020 Unknown COMPREHENSIVE METABOLIC 79671 ALBUMIN 4.3 g/dL 2020 Unknown COMPREHENSIVE METABOLIC 40377 CHLORIDE 101 mmol/L 04/18 Unknown COMPREHENSIVE METABOLIC 67989 Bili Total 0.8 mg/dL 04/18 Unknown COMPREHENSIVE METABOLIC 66772 ALK PHOS 73 U/L 2020 Unknown COMPREHENSIVE METABOLIC 17491 SODIUM 137 mmol/L 04/18 Unknown COMPREHENSIVE METABOLIC 80841 CREATININE 0.99 mg/dL 03/27 Unknown COMPREHENSIVE METABOLIC 32013 CALCIUM 9.1 mg/dL 2020 Unknown COMPREHENSIVE METABOLIC 74717 POTASSIUM 4.3 mmol/L 04/18 Unknown COMPREHENSIVE METABOLIC 19665 Total Protein 7.0 g/dL Unknown COMPREHENSIVE METABOLIC 49968 Glucose 133 mg/dL 2020 Unknown COMPREHENSIVE METABOLIC 19887 Bicarbonate 26 mmol/L 03/27 Unknown COMPREHENSIVE METABOLIC 63603 AGAP 10 mmol/L 2020 Unknown MEAN GLUC 0491707 Calc Mean Gluc 117 mg/dL 04/18/2020 Unkn own L[facility] 21877 Cholesterol 187 mg/dL 04/18/2020 Unkno wn [facility] 17491 Triglyceride 87 mg/dL 04/18/2020 Unkn own [facility] 71598 HDL CHOLESTEROL 59 mg/dL 04/18/2020 U nknown L[facility] 37616 Chol/HDL Ratio 3.17 ratio 04/18/2020 U nknown L[facility] 51884 NON-HDL Chol 128 mg/dL 04/18/2020 Unkn own [facility] 84880 LDL Cholesterol 111 mg/dL 04/18/2020 U nknown HEPATITIS C ANTIBODY 77799 Hepatitis C Ab Non-Reactive 02/01/2018 Unknown GLYCOSYLATED HEMOGLOBIN TEST 79026 Hgb A1c 79225-8 6.2 % 1 04/01/2017 Unknown GFR CALC 7456241 GFR Non Afr Amr >60 mL/min 01/29/2018 Un known GFR CALC 2466516 GFR Afr Amr >60 mL/min 01/29/2018 Unknow n COMPREHENSIVE METABOLIC 60770 AST 17 U/L 2017 Unknown COMPREHENSIVE METABOLIC 71421 ALT 17 U/L 2017 Unknown COMPREHENSIVE METABOLIC 11191 BUN 12 mg/dL 2017 Unknown COMPREHENSIVE METABOLIC 18879 ALBUMIN 4.6 g/dL 2017 Unknown COMPREHENSIVE METABOLIC 32070 CHLORIDE 101 mmol/L 01/29 Unknown COMPREHENSIVE METABOLIC 63987 Bili Total 0.9 mg/dL 01/29 Unknown COMPREHENSIVE METABOLIC 95183 ALK PHOS 57 U/L 2017 Unknown COMPREHENSIVE METABOLIC 34709 SODIUM 136 mmol/L 01/29 Unknown COMPREHENSIVE METABOLIC 22898 CREATININE 1.00 mg/dL 08/2017 Unknown COMPREHENSIVE METABOLIC 99274 CALCIUM 9.6 mg/dL 2017 Unknown COMPREHENSIVE METABOLIC 85306 POTASSIUM 4.2 mmol/L 01/29 Unknown COMPREHENSIVE METABOLIC 55904 Total Protein 6.9 g/dL Unknown COMPREHENSIVE METABOLIC 39539 Glucose 128 mg/dL 2017 Unknown COMPREHENSIVE METABOLIC 12191 Bicarbonate 27 mmol/L 08/2017 Unknown COMPREHENSIVE METABOLIC 16843 AGAP 8 mmol/L 2017 Unknown LIPID GROUP 28600 Cholesterol 168 mg/dL 01/29/2018 Unkno wn LIPID GROUP 87721 Triglyceride 82 mg/dL 01/29/2018 Unkn own LIPID GROUP 74422 HDL CHOLESTEROL 43 mg/dL 01/29/2018 U nknown LIPID GROUP 17478 Chol/HDL Ratio 3.91 ratio 01/29/2018 U nknown LIPID GROUP 19689 NON-HDL Chol 125 mg/dL 01/29/2018 Unkn own LIPID GROUP 83702 LDL Cholesterol 109 mg/dL 01/29/2018 U nknown MEAN GLUC 4150930 Calc Mean Gluc 131 mg/dL 01/29/2018 Unkn own LIPID GROUP 93848 Cholesterol 164 mg/dL 05/01/2017 Unkno wn LIPID GROUP 38533 Triglyceride 131 mg/dL 05/01/2017 Unkn own L[facility] GROUP 29379 HDL CHOLESTEROL 45 mg/dL 05/01/2017 U nknown LIPID GROUP 37607 Chol/HDL Ratio 3.64 ratio 05/01/2017 U nknown LIPID GROUP 44414 NON-HDL Chol 119 mg/dL 05/01/2017 Unkn own LIP[facility] GROUP 40443 LDL Cholesterol 93 mg/dL 05/01/2017 U nknown COMPLETE BLOOD COUNT 0929282 WBC 4.9 10e9/L 05/02/19 18 Unknown COMPLETE BLOOD COUNT 1211384 RBC 4.31 10e12/L 2017 Unknown COMPLETE BLOOD COUNT 7485140 HEMOGLOBIN 14.3 g/dL 05/02/19 18 Unknown COMPLETE BLOOD COUNT 5450853 HEMATOCRIT 42.8 % 05/02/19 18 Unknown COMPLETE BLOOD COUNT 5216820 MCV 99.3 fL 8 Unknown COMPLETE BLOOD COUNT 1789702 MCH 33.2 pg 8 Unknown COMPLETE BLOOD COUNT 5207134 MCHC 33.4 g/dL 8 Unknown COMPLETE BLOOD COUNT 1419250 PLATELET COUNT 241 10e9/L 10/2017 Unknown COMPLETE BLOOD COUNT 6433600 Mean Plt Volume 11.0 fL 10/2017 Unknown COMPLETE BLOOD COUNT 7585095 Neut Auto 56.6 % 8 Unknown COMPLETE BLOOD COUNT 0776275 Lymph Auto 24.7 % 05/02/19 18 Unknown COMPLETE BLOOD COUNT 9024672 [place] Auto 11.6 % 8 Unknown COMPLETE BLOOD COUNT 4638277 RDW 13.2 % 8 Unknown COMPLETE BLOOD COUNT 7260331 Eos Auto 6.9 % 8 Unknown COMPLETE BLOOD COUNT 1916562 Baso Auto 0.2 % 8 Unknown COMPLETE BLOOD COUNT 4511101 Neutrophil Abs 2.77 10e9/L Unknown COMPLETE BLOOD COUNT 0529906 Lymphocyte Abs 1.21 10e9/L Unknown COMPLETE BLOOD COUNT 8978820 Monocyte Abs 0.57 10e9/L 10/2017 Unknown COMPLETE BLOOD COUNT 1668521 Eosinophil Abs 0.34 10e9/L Unknown COMPLETE BLOOD COUNT 2251441 RDW-SD 47.2 fL 8 Unknown COMPLETE BLOOD COUNT 0951602 Basophil Abs 0.01 10e9/L 10/2017 Unknown GLYCOSYLATED HEMOGLOBIN TEST 91297 Hgb A1c 30019-5 6.0 % 0 05/01/2017 Unknown GFR CALC 0897062 GFR Non Afr Amr >60 mL/min 05/01/2017 Un known GFR CALC 6606488 GFR Afr Amr >60 mL/min 05/01/2017 Unknow n MEAN GLUC 1633098 Calc Mean Gluc 126 mg/dL 05/01/2017 Unkn own COMPREHENSIVE METABOLIC 41806 AST 17 U/L 2017 Unknown COMPREHENSIVE METABOLIC 92539 ALT 16 U/L 2017 Unknown COMPREHENSIVE METABOLIC 71243 BUN 13 mg/dL 2017 Unknown COMPREHENSIVE METABOLIC 27222 ALBUMIN 3.9 g/dL 2017 Unknown COMPREHENSIVE METABOLIC 04704 CHLORIDE 104 mmol/L 05/01 Unknown COMPREHENSIVE METABOLIC 72204 Bili Total 0.7 mg/dL 05/01 Unknown COMPREHENSIVE METABOLIC 11986 ALK PHOS 58 U/L 2017 Unknown COMPREHENSIVE METABOLIC 37683 SODIUM 139 mmol/L 05/01 Unknown COMPREHENSIVE METABOLIC 24737 CREATININE 0.99 mg/dL 10/2017 Unknown COMPREHENSIVE METABOLIC 20879 CALCIUM 9.5 mg/dL 2017 Unknown COMPREHENSIVE METABOLIC 81056 POTASSIUM 4.3 mmol/L 05/01 Unknown COMPREHENSIVE METABOLIC 79655 Total Protein 6.7 g/dL Unknown COMPREHENSIVE METABOLIC 83527 Glucose 110 mg/dL 2017 Unknown COMPREHENSIVE METABOLIC 43432 Bicarbonate 27 mmol/L 10/2017 Unknown COMPREHENSIVE METABOLIC 48600 AGAP 8 mmol/L 2017 Unknown PSA EQUIMOLAR NITHIN 58969 PSA Total 1.10 ng/mL 8 Unknown THYROID STIMULATING HORMONE 36515 TSH 0.673 uIU/mL 05/01/2017 Unknown GLYCOSYLATED HEMOGLOBIN TEST 29359 Hgb A1c 17785-6 5.8 % 1 03/08/2015 Unknown MEAN GLUC 9249634 Calc Mean Gluc 120 mg/dL 01/07/2016 Unkn own FREE T4 35119 T4 Free 1.13 ng/dL 01/04/2016 Unknown THYROID STIMULATING HORMONE 83143 TSH 0.875 uIU/mL 01/04/2016 Unknown COMPREHENSIVE METABOLIC 87730 AST 20 U/L 2015 Unknown COMPREHENSIVE METABOLIC 03680 ALT 20 U/L 2015 Unknown COMPREHENSIVE METABOLIC 72482 BUN 14 mg/dL 2015 Unknown COMPREHENSIVE METABOLIC 88189 ALBUMIN 4.4 g/dL 2015 Unknown COMPREHENSIVE METABOLIC 07045 CHLORIDE 103 mmol/L 01/03 Unknown COMPREHENSIVE METABOLIC 39713 Bili Total 0.5 mg/dL 01/03 Unknown COMPREHENSIVE METABOLIC 29789 ALK PHOS 53 U/L 2015 Unknown COMPREHENSIVE METABOLIC 21179 SODIUM 137 mmol/L 01/03 Unknown COMPREHENSIVE METABOLIC 90252 CREATININE 0.98 mg/dL 12/24 Unknown COMPREHENSIVE METABOLIC 35022 CALCIUM 9.6 mg/dL 2015 Unknown COMPREHENSIVE METABOLIC 66034 POTASSIUM 4.5 mmol/L 01/03 Unknown COMPREHENSIVE METABOLIC 70924 Total Protein 7.0 g/dL Unknown COMPREHENSIVE METABOLIC 40735 Glucose 117 mg/dL 2015 Unknown COMPREHENSIVE METABOLIC 59732 Bicarbonate 26 mmol/L 12/24 Unknown COMPREHENSIVE METABOLIC 56187 AGAP 8 mmol/L 2015 Unknown COMPLETE BLOOD COUNT 4597111 WBC 6.2 10e9/L 01/04/20 16 Unknown COMPLETE BLOOD COUNT [id number] RBC 4.55 10e12/L 2015 Unknown COMPLETE BLOOD COUNT [id number] HEMOGLOBIN 15.0 g/dL 01/04/20 16 Unknown COMPLETE BLOOD COUNT [id number] HEMATOCRIT 43.8 % 01/04/20 16 Unknown COMPLETE BLOOD COUNT [id number] MCV 96.3 fL 6 Unknown COMPLETE BLOOD COUNT [id number] MCH 33.0 pg 6 Unknown COMPLETE BLOOD COUNT [id number] MCHC 34.2 g/dL 6 Unknown COMPLETE BLOOD COUNT [id number] PLATELET COUNT 259 10e9/L 12/2015 Unknown COMPLETE BLOOD COUNT 1939856 Mean Plt Volume 10.8 fL 12/2015 Unknown COMPLETE BLOOD COUNT [id number] Neut Auto 62.4 % 6 Unknown COMPLETE BLOOD COUNT [id number] Lymph Auto 25.9 % 01/04/20 16 Unknown COMPLETE BLOOD COUNT [id number] [place] Auto 6.8 % 6 Unknown COMPLETE BLOOD COUNT 2505975 RDW 13.4 % 6 Unknown COMPLETE BLOOD COUNT 3203681 Eos Auto 4.9 % 6 Unknown COMPLETE BLOOD COUNT 2703844 Baso Auto 0.0 % 6 Unknown COMPLETE BLOOD COUNT [id number] Neutrophil Abs 3.87 10e9/L Unknown COMPLETE BLOOD COUNT [id number] Lymphocyte Abs 1.61 10e9/L Unknown COMPLETE BLOOD COUNT [id number] Monocyte Abs 0.42 10e9/L 12/24 Unknown COMPLETE BLOOD COUNT [id number] Eosinophil Abs 0.30 10e9/L Unknown COMPLETE BLOOD COUNT [id number] RDW-SD 46.2 fL 6 Unknown COMPLETE BLOOD COUNT [id number] Basophil Abs 0.00 10e9/L 12/24 Unknown PSA EQUIMOLAR NITHIN 76853 PSA Total 1.14 ng/mL 6 Unknown GFR CALC [id number] GFR Non Afr Amr >60 mL/min 01/04/2016 Un known GFR CALC [id number] GFR Afr Amr >60 mL/min 01/04/2016 Unknow n LIPID GROUP 77214 Cholesterol 172 mg/dL 01/04/2016 Unkno wn LIPID GROUP 61346 Triglyceride 156 mg/dL 01/04/2016 Unkn own [facility] 72482 HDL CHOLESTEROL 42 mg/dL 01/04/2016 U nknown [facility] 69855 Chol/HDL Ratio 4.10 ratio 01/04/2016 U nknown [facility] 90292 NON-HDL Chol 130 mg/dL 01/04/2016 Unkn own [facility] 66850 LDL Cholesterol 99 mg/dL 01/04/2016 U nknown GLYCOSYLATED HEMOGLOBIN TEST 35413 A1C HPLC 83585-7 5.8 % 1 04/10/2014 Unknown COMPLETE BLOOD COUNT [id number] WBC 6.0 10e9/L 02/03/20 15 Unknown COMPLETE BLOOD COUNT 6248004 RBC 4.39 10e12/L 2014 Unknown COMPLETE BLOOD COUNT 3401809 HGB 14.3 g/dL 5 Unknown COMPLETE BLOOD COUNT [id number] HCT DET 41.7 % 5 Unknown COMPLETE BLOOD COUNT 5827384 MCV 95.0 fL 5 Unknown COMPLETE BLOOD COUNT 0587183 MCH 32.6 pg 5 Unknown COMPLETE BLOOD COUNT 2184980 MCHC 34.3 g/dL 5 Unknown COMPLETE BLOOD COUNT 3148919 PLT 272 10e9/L 02/03/20 15 Unknown COMPLETE BLOOD COUNT 2914802 MPV 11.1 fL 5 Unknown COMPLETE BLOOD COUNT 7256295 GARY % 62.7 % 5 Unknown COMPLETE BLOOD COUNT 2362751 LY % 25.2 % 5 Unknown COMPLETE BLOOD COUNT 9250413 MON % 7.9 % 5 Unknown COMPLETE BLOOD COUNT 0702556 EOS % 4.0 % 5 Unknown COMPLETE BLOOD COUNT 3952271 BASO % 0.2 % 5 Unknown COMPLETE BLOOD COUNT 5455831 RDW 13.2 % 5 Unknown COMPLETE BLOOD COUNT 5388452 ABS GARY 3.76 10e9/L 015 Unknown COMPLETE BLOOD COUNT 1071330 ABS LYMPH 1.51 10e9/L 015 Unknown COMPLETE BLOOD COUNT 2243895 ABS MONO 0.47 10e9/L 015 Unknown COMPLETE BLOOD COUNT 1387406 ABS EOS 0.24 10e9/L 015 Unknown COMPLETE BLOOD COUNT 4226185 ABS BASO 0.01 10e9/L 015 Unknown COMPLETE BLOOD COUNT 7136930 RDW-SD 44.7 fL 5 Unknown GFR CALC 5292732 GFR AA >60 ML/MIN 02/02/2015 Unknown GFR CALC 7424616 GFR NON-AA >60 ML/MIN 02/02/2015 Unknown THYROID STIMULATING HORMONE 84771 TSH 0.970 uIU/ML 02/02/2015 Unknown [facility] 93988 HDL TEST 41 MG/DL 02/02/2015 Unknown [facility] 90822 TRIG 151 MG/DL 02/02/2015 Unknown [facility] 28836 TEST LDL 122 MG/DL 02/02/2015 Unknown [facility] 24263 CHOL 193 MG/DL 02/02/2015 Unknown [facility] 38363 RCHOL/HDL 4.71 RATIO 02/02/2015 Unknow n [facility] 56480 NON-HDL CH 152 MG/DL 02/02/2015 Unknow n PSA EQUIMOLAR NITHIN 98427 PSA EQ 0.76 NG/ML 5 Unknown FREE T4 06639 FREE T4 0.93 NG/DL 02/02/2015 Unknown COMPREHENSIVE METABOLIC 66304 AST 21 U/L 2014 Unknown COMPREHENSIVE METABOLIC 38169 ALT 21 IU/L 2014 Unknown COMPREHENSIVE METABOLIC 28618 BUN 15 MG/DL 2014 Unknown COMPREHENSIVE METABOLIC 06861 ALBUMIN 4.5 GM/DL 2014 Unknown COMPREHENSIVE METABOLIC 68894 CHLORIDE 104 MMOL/L 02/02 Unknown COMPREHENSIVE METABOLIC 91319 BILI TOT 1.0 MG/DL 2014 Unknown COMPREHENSIVE METABOLIC 99346 ALK PHOS 71 U/L 2014 Unknown COMPREHENSIVE METABOLIC 17053 SODIUM 136 MMOL/L 02/02 Unknown COMPREHENSIVE METABOLIC 09107 CREATININE 0.94 MG/DL 01/23 Unknown COMPREHENSIVE METABOLIC 94768 CALCIUM 9.8 MG/DL 2014 Unknown COMPREHENSIVE METABOLIC 69743 POTASSIUM 4.3 MMOL/L 02/02 Unknown COMPREHENSIVE METABOLIC 10895 PROT TOT 6.9 GM/DL 2014 Unknown COMPREHENSIVE METABOLIC 57164 Glucose 113 MG/DL 2014 Unknown COMPREHENSIVE METABOLIC 77662 BICARB 26 MMOL/L 2014 Unknown COMPREHENSIVE METABOLIC 17969 ANION GAP 6 MEQ/L 2014 Unknown ANTI STREPTOLYSIN O TITER(ASO) 76814 ASO 57 IU/ML 06/19/2014 Unknown RA FACTOR 79686 RA FACTOR <20.0 IU/ML 06/15/2014 Unknown FREE T4 85216 FREE T4 1.19 NG/DL 06/15/2014 Unknown ANTINUCLEAR ANTIBODY SCREEN 36225 SHANNON SCR <1:80 Unknown ERYTHROCYTE SEDIMENTATION RATE 20067 ESR 2 MM/HR 06/14/2014 Unknown COMPLETE BLOOD COUNT 6473781 WBC 6.7 10e9/L 06/15/19 15 Unknown COMPLETE BLOOD COUNT 8242862 RBC 4.86 10e12/L 2014 Unknown COMPLETE BLOOD COUNT 8025980 HGB 15.9 g/dL 5 Unknown COMPLETE BLOOD COUNT 1285458 HCT DET 45.0 % 5 Unknown COMPLETE BLOOD COUNT 0954526 MCV 92.6 fL 5 Unknown COMPLETE BLOOD COUNT 6857270 MCH 32.7 pg 5 Unknown COMPLETE BLOOD COUNT 6077760 MCHC 35.3 g/dL 5 Unknown COMPLETE BLOOD COUNT 0620745 PLT 299 10e9/L 06/15/19 15 Unknown COMPLETE BLOOD COUNT 1591326 MPV 10.0 fL 5 Unknown COMPLETE BLOOD COUNT 0981142 GARY % 63.8 % 5 Unknown COMPLETE BLOOD COUNT 4275457 LY % 18.3 % 5 Unknown COMPLETE BLOOD COUNT 9075665 MON % 12.1 % 5 Unknown COMPLETE BLOOD COUNT 2671760 EOS % 5.7 % 5 Unknown COMPLETE BLOOD COUNT 6889242 BASO % 0.1 % 5 Unknown COMPLETE BLOOD COUNT 6009748 RDW 13.3 % 5 Unknown COMPLETE BLOOD COUNT 4348371 ABS GARY 4.27 10e9/L 015 Unknown COMPLETE BLOOD COUNT 7058876 ABS LYMPH 1.23 10e9/L 015 Unknown COMPLETE BLOOD COUNT 0586963 ABS MONO 0.81 10e9/L 015 Unknown COMPLETE BLOOD COUNT 2350251 ABS EOS 0.38 10e9/L 015 Unknown COMPLETE BLOOD COUNT 3820588 ABS BASO 0.01 10e9/L 015 Unknown COMPLETE BLOOD COUNT 1177471 RDW-SD 44.3 fL 5 Unknown URIC ACID 46344 URIC ACID 7.6 MG/DL 06/14/[place] [address] SYP AB NR 06/14/2014 Unknown THYROID STIMULATING HORMONE 05827 TSH 0.825 uIU/ML 06/14/2014 Unknown GLYCOSYLATED HEMOGLOBIN TEST 28544 A1C HPLC 56239-6 6.0 % 0 06/14/2014 Unknown VITAMIN B 12 FOLIC ACID 60861|79795 VIT B 12 751 PG/ML 05/25 Unknown VITAMIN B 12 FOLIC ACID 01951|22071 FOLIC ACID 23.5 NG/ML Unknown GFR CALC 3790349 GFR AA >60 ML/MIN 06/14/2014 Unknown GFR CALC 6483779 GFR NON-AA >60 ML/MIN 06/14/2014 Unknown C-REACTIVE PROTEIN (CRP) QUANT 04036 CRP 0.1 MG/DL 06/14/2014 Unknown COMPREHENSIVE METABOLIC 73252 AST 19 U/L 2014 Unknown COMPREHENSIVE METABOLIC 46648 ALT 16 IU/L 2014 Unknown COMPREHENSIVE METABOLIC 44619 BUN 13 MG/DL 2014 Unknown COMPREHENSIVE METABOLIC 83917 ALBUMIN 5.1 GM/DL 2014 Unknown COMPREHENSIVE METABOLIC 49289 CHLORIDE 92 MMOL/L 2014 Unknown COMPREHENSIVE METABOLIC 67723 BILI TOT 0.6 MG/DL 2014 Unknown COMPREHENSIVE METABOLIC 80795 ALK PHOS 61 U/L 2014 Unknown COMPREHENSIVE METABOLIC 67526 SODIUM 128 MMOL/L 06/14 Unknown COMPREHENSIVE METABOLIC 13783 CREATININE 1.00 MG/DL 05/25 Unknown COMPREHENSIVE METABOLIC 15850 CALCIUM 10.7 MG/DL 06/14 Unknown COMPREHENSIVE METABOLIC 74515 POTASSIUM 4.1 MMOL/L 06/14 Unknown COMPREHENSIVE METABOLIC 55207 PROT TOT 7.6 GM/DL 2014 Unknown COMPREHENSIVE METABOLIC 08232 Glucose 106 MG/DL 2014 Unknown COMPREHENSIVE METABOLIC 61740 BICARB 29 MMOL/L 2014 Unknown COMPREHENSIVE METABOLIC 98131 ANION GAP 7 MEQ/L 2014 Unknown COMPREHENSIVE METABOLIC 10220 AST 21 U/L 2014 Unknown COMPREHENSIVE METABOLIC 22275 ALT 26 IU/L 2014 Unknown COMPREHENSIVE METABOLIC 42251 BUN 16 MG/DL 2014 Unknown COMPREHENSIVE METABOLIC 20717 ALBUMIN 4.6 GM/DL 2014 Unknown COMPREHENSIVE METABOLIC 83484 CHLORIDE 99 MMOL/L 2014 Unknown COMPREHENSIVE METABOLIC 79270 BILI TOT 0.5 MG/DL 2014 Unknown COMPREHENSIVE METABOLIC 87120 ALK PHOS 57 U/L 2014 Unknown COMPREHENSIVE METABOLIC 06440 SODIUM 134 MMOL/L 03/09 Unknown COMPREHENSIVE METABOLIC 75442 CREATININE 0.91 MG/DL 02/23 Unknown COMPREHENSIVE METABOLIC 24231 CALCIUM 9.9 MG/DL 2014 Unknown COMPREHENSIVE METABOLIC 19884 POTASSIUM 4.3 MMOL/L 03/09 Unknown COMPREHENSIVE METABOLIC 24195 PROT TOT 7.0 GM/DL 2014 Unknown COMPREHENSIVE METABOLIC 68716 Glucose 91 MG/DL 2014 Unknown COMPREHENSIVE METABOLIC 25712 BICARB 30 MMOL/L 2014 Unknown COMPREHENSIVE METABOLIC 92998 ANION GAP 5 MEQ/L 2014 Unknown GLYCOSYLATED HEMOGLOBIN TEST 52108 A1C HPLC 02456-3 6.4 % 0 03/09/2014 Unknown GFR CALC 6866915 GFR AA >60 ML/MIN 03/09/2014 Unknown GFR CALC 8468371 GFR NON-AA >60 ML/MIN 03/09/2014 Unknown GLYCOSYLATED HEMOGLOBIN TEST 79693 A1C HPLC 12640-4 6.0 % 0 11/22/2013 Unknown THYROID STIMULATING HORMONE 77568 TSH 0.643 uIU/ML 11/18/2013 Unknown PSA EQUIMOLAR NITHIN 53954 PSA EQ 0.75 NG/ML 4 Unknown COMPREHENSIVE METABOLIC 72953 AST 21 U/L 2013 Unknown COMPREHENSIVE METABOLIC 18982 ALT 22 IU/L 2013 Unknown COMPREHENSIVE METABOLIC 96817 BUN 16 MG/DL 2013 Unknown COMPREHENSIVE METABOLIC 01070 ALBUMIN 4.6 GM/DL 2013 Unknown COMPREHENSIVE METABOLIC 67094 CHLORIDE 97 MMOL/L 2013 Unknown COMPREHENSIVE METABOLIC 70767 BILI TOT 0.8 MG/DL 2013 Unknown COMPREHENSIVE METABOLIC 86376 ALK PHOS 68 U/L 2013 Unknown COMPREHENSIVE METABOLIC 42521 SODIUM 132 MMOL/L 11/18 Unknown COMPREHENSIVE METABOLIC 76981 CREATININE 0.95 MG/DL 10/25 Unknown COMPREHENSIVE METABOLIC 39820 CALCIUM 10.1 MG/DL 11/18 Unknown COMPREHENSIVE METABOLIC 51252 POTASSIUM 4.2 MMOL/L 11/18 Unknown COMPREHENSIVE METABOLIC 26784 PROT TOT 7.2 GM/DL 2013 Unknown COMPREHENSIVE METABOLIC 15667 Glucose 125 MG/DL 2013 Unknown COMPREHENSIVE METABOLIC 51135 BICARB 26 MMOL/L 2013 Unknown COMPREHENSIVE METABOLIC 95840 ANION GAP 9 MEQ/L 2013 Unknown COMPLETE BLOOD COUNT 1026418 WBC 7.3 10e9/L 11/19/19 14 Unknown COMPLETE BLOOD COUNT 3503160 RBC 4.68 10e12/L 2013 Unknown COMPLETE BLOOD COUNT 5399532 HGB 15.4 g/dL 4 Unknown COMPLETE BLOOD COUNT 7464429 HCT DET 43.4 % 4 Unknown COMPLETE BLOOD COUNT 4016930 MCV 92.7 fL 4 Unknown COMPLETE BLOOD COUNT 0459054 MCH 32.9 pg 4 Unknown COMPLETE BLOOD COUNT 9950336 MCHC 35.5 g/dL 4 Unknown COMPLETE BLOOD COUNT 1048974 PLT 286 10e9/L 11/19/19 14 Unknown COMPLETE BLOOD COUNT 8659817 MPV 10.8 fL 4 Unknown COMPLETE BLOOD COUNT 2537128 GARY % 61.6 % 4 Unknown COMPLETE BLOOD COUNT 0012643 LY % 25.6 % 4 Unknown COMPLETE BLOOD COUNT 2200593 MON % 8.7 % 4 Unknown COMPLETE BLOOD COUNT 0784749 EOS % 4.0 % 4 Unknown COMPLETE BLOOD COUNT 8747175 BASO % 0.1 % 4 Unknown COMPLETE BLOOD COUNT 1531862 RDW 12.9 % 4 Unknown COMPLETE BLOOD COUNT 5179130 ABS GARY 4.50 10e9/L 014 Unknown COMPLETE BLOOD COUNT 4151801 ABS LYMPH 1.87 10e9/L 014 Unknown COMPLETE BLOOD COUNT 7121474 ABS MONO 0.64 10e9/L 014 Unknown COMPLETE BLOOD COUNT 5935287 ABS EOS 0.29 10e9/L 014 Unknown COMPLETE BLOOD COUNT 7115118 ABS BASO 0.01 10e9/L 014 Unknown COMPLETE BLOOD COUNT 9770232 RDW-SD 42.9 fL 4 Unknown [facility] 97773 HDL TEST 52 MG/DL 11/18/2013 Unknown [facility] 63764 TRIG 100 MG/DL 11/18/2013 Unknown [facility] 76343 TEST LDL 110 MG/DL 11/18/2013 Unknown [facility] 52232 CHOL 182 MG/DL 11/18/2013 Unknown [facility] 98202 RCHOL/HDL 3.50 RATIO 11/18/2013 Unknow n [facility] 09434 NON-HDL CH 130 MG/DL 11/18/2013 Unknow n FREE T4 18475 FREE T4 1.28 NG/DL 11/18/2013 Unknown GFR CALC 8261690 GFR AA >60 ML/MIN 11/18/2013 Unknown GFR CALC 5938937 GFR NON-AA >60 ML/MIN 11/18/2013 Unknown COMPREHENSIVE METABOLIC 18646 AST 21 U/L 2012 Unknown COMPREHENSIVE METABOLIC 00851 ALT 20 IU/L 2012 Unknown COMPREHENSIVE METABOLIC 31444 BUN 12 MG/DL 2012 Unknown COMPREHENSIVE METABOLIC 11974 ALBUMIN 4.6 GM/DL 2012 Unknown COMPREHENSIVE METABOLIC 17477 CHLORIDE 105 MMOL/L 11/03 Unknown COMPREHENSIVE METABOLIC 22591 BILI TOT 0.5 MG/DL 2012 Unknown COMPREHENSIVE METABOLIC 85825 ALK PHOS 53 U/L 2012 Unknown COMPREHENSIVE METABOLIC 57174 SODIUM 138 MMOL/L 11/03 Unknown COMPREHENSIVE METABOLIC 06890 CREATININE 0.93 MG/DL 10/24 Unknown COMPREHENSIVE METABOLIC 83182 CALCIUM 9.7 MG/DL 2012 Unknown COMPREHENSIVE METABOLIC 75869 POTASSIUM 4.3 MMOL/L 11/03 Unknown COMPREHENSIVE METABOLIC 40590 PROT TOT 7.0 GM/DL 2012 Unknown COMPREHENSIVE METABOLIC 22967 Glucose 117 MG/DL 2012 Unknown COMPREHENSIVE METABOLIC 79454 BICARB 25 MMOL/L 2012 Unknown COMPREHENSIVE METABOLIC 22063 ANION GAP 8 MEQ/L 2012 Unknown GFR CALC 6195235 GFR AA >60 ML/MIN 11/03/2012 Unknown GFR CALC 5734634 GFR NON-AA >60 ML/MIN 11/03/2012 Unknown THYROID STIMULATING HORMONE 99826 TSH 1.218 uIU/ML 11/03/2012 Unknown URIC ACID 19767 URIC ACID 7.6 MG/DL 11/03/2012 Unknown COMPLETE BLOOD COUNT 7726525 WBC 5.0 10e9/L 11/04/19 13 Unknown COMPLETE BLOOD COUNT 5289490 RBC 4.70 10e12/L 2012 Unknown COMPLETE BLOOD COUNT 6273715 HGB 15.6 g/dL 3 Unknown COMPLETE BLOOD COUNT 0927359 HCT DET 44.2 % 3 Unknown COMPLETE BLOOD COUNT 6461875 MCV 94.0 fL 3 Unknown COMPLETE BLOOD COUNT 3942117 MCH 33.2 pg 3 Unknown COMPLETE BLOOD COUNT 6065456 MCHC 35.3 g/dL 3 Unknown COMPLETE BLOOD COUNT 3104139 PLT 248 10e9/L 11/04/19 13 Unknown COMPLETE BLOOD COUNT 5334101 MPV 10.9 fL 3 Unknown COMPLETE BLOOD COUNT 3893361 GARY % 58.3 % 3 Unknown COMPLETE BLOOD COUNT 4886598 LY % 27.9 % 3 Unknown COMPLETE BLOOD COUNT 8626250 MON % 7.0 % 3 Unknown COMPLETE BLOOD COUNT 1136474 EOS % 6.6 % 3 Unknown COMPLETE BLOOD COUNT 0118307 BASO % 0.2 % 3 Unknown COMPLETE BLOOD COUNT 0877050 RDW 13.2 % 3 Unknown COMPLETE BLOOD COUNT 4577361 ABS GARY 2.92 10e9/L 013 Unknown COMPLETE BLOOD COUNT 7809346 ABS LYMPH 1.40 10e9/L 013 Unknown COMPLETE BLOOD COUNT 2356873 ABS MONO 0.35 10e9/L 013 Unknown COMPLETE BLOOD COUNT 5545808 ABS EOS 0.33 10e9/L 013 Unknown COMPLETE BLOOD COUNT 5076756 ABS BASO 0.01 10e9/L 013 Unknown COMPLETE BLOOD COUNT 8239057 RDW-SD 44.1 fL 3 Unknown HERPE1/2MG 84572|21676|87469 HSV G1 EIA 1.78 INDEX 3 Unknown HERPE1/2MG 96024|60052|96924 HSVM1/2EIA 0.15 02/26/2012 Unknown HERPE1/2MG 50326|57732|79692 HSV G2 EIA 10.14 INDEX 02/25/19 13 Unknown COMPLETE BLOOD COUNT 5824397 WBC 9.4 10e9/L 02/24/19 13 Unknown COMPLETE BLOOD COUNT 4656466 RBC 4.54 10e12/L 2012 Unknown COMPLETE BLOOD COUNT 1736161 HGB 14.9 g/dL 3 Unknown COMPLETE BLOOD COUNT 1308106 HCT DET 43.0 % 3 Unknown COMPLETE BLOOD COUNT 8491282 MCV 94.7 fL 3 Unknown COMPLETE BLOOD COUNT 8445211 MCH 32.8 pg 3 Unknown COMPLETE BLOOD COUNT 1795899 MCHC 34.7 g/dL 3 Unknown COMPLETE BLOOD COUNT 6390216 PLT 251 10e9/L 02/24/19 13 Unknown COMPLETE BLOOD COUNT 3362548 MPV 11.1 fL 3 Unknown COMPLETE BLOOD COUNT 7715358 GARY % 75.0 % 3 Unknown COMPLETE BLOOD COUNT 7282434 LY % 15.7 % 3 Unknown COMPLETE BLOOD COUNT 8240330 MON % 6.8 % 3 Unknown COMPLETE BLOOD COUNT 0743697 EOS % 2.3 % 3 Unknown COMPLETE BLOOD COUNT 7036200 BASO % 0.2 % 3 Unknown COMPLETE BLOOD COUNT 5507081 RDW 13.2 % 3 Unknown COMPLETE BLOOD COUNT 2314820 ABS GARY 7.05 10e9/L 013 Unknown COMPLETE BLOOD COUNT 0701637 ABS LYMPH 1.48 10e9/L 013 Unknown COMPLETE BLOOD COUNT 1363251 ABS MONO 0.64 10e9/L 013 Unknown COMPLETE BLOOD COUNT 2240640 ABS EOS 0.22 10e9/L 013 Unknown COMPLETE BLOOD COUNT 5731187 ABS BASO 0.02 10e9/L 013 Unknown COMPLETE BLOOD COUNT 6562687 RDW-SD 44.3 fL 3 Unknown COMPREHENSIVE METABOLIC 89960 AST 21 U/L 2012 Unknown COMPREHENSIVE METABOLIC 49357 ALT 22 IU/L 2012 Unknown COMPREHENSIVE METABOLIC 41601 BUN 12 MG/DL 2012 Unknown COMPREHENSIVE METABOLIC 51274 ALBUMIN 4.9 GM/DL 2012 Unknown COMPREHENSIVE METABOLIC 11221 CHLORIDE 102 MMOL/L 02/24 Unknown COMPREHENSIVE METABOLIC 14826 BILI TOT 0.6 MG/DL 2012 Unknown COMPREHENSIVE METABOLIC 68205 ALK PHOS 59 U/L 2012 Unknown COMPREHENSIVE METABOLIC 70046 SODIUM 137 MMOL/L 02/24 Unknown COMPREHENSIVE METABOLIC 23139 CREATININE 0.92 MG/DL 03/2012 Unknown COMPREHENSIVE METABOLIC 05974 CALCIUM 9.7 MG/DL 2012 Unknown COMPREHENSIVE METABOLIC 95572 POTASSIUM 4.1 MMOL/L 02/24 Unknown COMPREHENSIVE METABOLIC 27199 PROT TOT 6.9 GM/DL 2012 Unknown COMPREHENSIVE METABOLIC 74110 Glucose 127 MG/DL 2012 Unknown COMPREHENSIVE METABOLIC 56632 BICARB 25 MMOL/L 2012 Unknown COMPREHENSIVE METABOLIC 48126 ANION GAP 10 MEQ/L 2012 Unknown GFR CALC 1728080 GFR AA >60 ML/MIN 02/25/2012 Unknown GFR CALC 9305860 GFR NON-AA >60 ML/MIN 02/25/2012 Unknown TULAREM AB 0387241 TULAREM AB <1:20 09/23/2011 Unknown [facility] [place] [facility] [id number] IGG RMSF <1:16 0 09/19/2011 Unknown [facility] [place] [employer] [facility] 12973F9 IGM RMSF <1:10 0 09/19/2011 Unknown E CHAFF AB 2817150 IGG E CHFF <1:16 09/19/2011 Unknown E CHAFF AB 7446067 IGM E CHFF <1:10 09/19/2011 Unknown GLYCOSYLATED HEMOGLOBIN TEST 09233 A1C HPLC 55596-8 5.4 % 0 09/18/2011 Unknown GFR CALC 3739572 GFR AA >60 ML/MIN 09/17/2011 Unknown GFR CALC 0396595 GFR NON-AA >60 ML/MIN 09/17/2011 Unknown VITAMIN B 12 FOLIC ACID 75439|09050 VIT B 12 405 PG/ML 08/24 Unknown VITAMIN B 12 FOLIC ACID 09191|85070 FOLIC ACID 17.5 NG/ML Unknown COMPREHENSIVE METABOLIC 14800 AST 19 U/L 2011 Unknown COMPREHENSIVE METABOLIC 86705 ALT 19 IU/L 2011 Unknown COMPREHENSIVE METABOLIC 56933 BUN 12 MG/DL 2011 Unknown COMPREHENSIVE METABOLIC 63206 ALBUMIN 4.9 GM/DL 2011 Unknown COMPREHENSIVE METABOLIC 02190 CHLORIDE 98 MMOL/L 2011 Unknown COMPREHENSIVE METABOLIC 72387 BILI TOT 1.2 MG/DL 2011 Unknown COMPREHENSIVE METABOLIC 67639 ALK PHOS 60 U/L 2011 Unknown COMPREHENSIVE METABOLIC 71676 SODIUM 133 MMOL/L 09/16 Unknown COMPREHENSIVE METABOLIC 76702 CREATININE 1.12 MG/DL 08/24 Unknown COMPREHENSIVE METABOLIC 19478 CALCIUM 10.1 MG/DL 09/16 Unknown COMPREHENSIVE METABOLIC 20926 POTASSIUM 4.1 MMOL/L 09/16 Unknown COMPREHENSIVE METABOLIC 16811 PROT TOT 7.6 GM/DL 2011 Unknown COMPREHENSIVE METABOLIC 96500 Glucose 121 MG/DL 2011 Unknown COMPREHENSIVE METABOLIC 64718 BICARB 25 MMOL/L 2011 Unknown COMPREHENSIVE METABOLIC 44868 ANION GAP 10 MEQ/L 2011 Unknown COMPLETE BLOOD COUNT 46351 WBC 5.8 10e9/L 09/17/19 12 Unknown COMPLETE BLOOD COUNT 81947 RBC 5.01 10e12/L 2011 Unknown COMPLETE BLOOD COUNT 87170 HGB 16.4 g/dL 2 Unknown COMPLETE BLOOD COUNT 71878 HCT DET 46.7 % 2 Unknown COMPLETE BLOOD COUNT 74705 MCV 93.2 fL 2 Unknown COMPLETE BLOOD COUNT 66675 MCH 32.7 pg 2 Unknown COMPLETE BLOOD COUNT 19090 MCHC 35.1 g/dL 2 Unknown COMPLETE BLOOD COUNT 74824 PLT 275 10e9/L 09/17/19 12 Unknown COMPLETE BLOOD COUNT 63625 MPV 10.8 fL 2 Unknown COMPLETE BLOOD COUNT 19164 GARY % 47.1 % 2 Unknown COMPLETE BLOOD COUNT 09633 LY % 37.2 % 2 Unknown COMPLETE BLOOD COUNT 47571 MON % 9.5 % 2 Unknown COMPLETE BLOOD COUNT 62649 EOS % 5.9 % 2 Unknown COMPLETE BLOOD COUNT 54390 BASO % 0.3 % 2 Unknown COMPLETE BLOOD COUNT 82769 RDW 13.0 % 2 Unknown COMPLETE BLOOD COUNT 70215 ABS GARY 2.73 10e9/L 012 Unknown COMPLETE BLOOD COUNT 65079 ABS LYMPH 2.16 10e9/L 012 Unknown COMPLETE BLOOD COUNT 88120 ABS MONO 0.55 10e9/L 012 Unknown COMPLETE BLOOD COUNT 21446 ABS EOS 0.34 10e9/L 012 Unknown COMPLETE BLOOD COUNT 12389 ABS BASO 0.02 10e9/L 012 Unknown COMPLETE BLOOD COUNT 99611 RDW-SD 43.1 fL 2 Unknown LIPID GROUP 43113 HDL TEST 39 MG/DL 09/17/2011 Unknown L[facility] GROUP 91416 TRIG 195 MG/DL 09/17/2011 Unknown L[facility] GROUP 27895 TEST LDL 98 MG/DL 09/17/2011 Unknown LIP[facility] GROUP 03317 CHOL 176 MG/DL 09/17/2011 Unknown LIP[facility] GROUP 93786 RCHOL/HDL 4.51 RATIO 09/17/2011 Unknow n THYROID STIMULATING HORMONE 94444 TSH 2.892 uIU/ML 08/29/2010 Unknown COMPLETE BLOOD COUNT 09191 WBC 6.5 10e9/L 08/30/19 11 Unknown COMPLETE BLOOD COUNT 22739 RBC 4.83 10e12/L 2010 Unknown COMPLETE BLOOD COUNT 12729 HGB 15.9 g/dL 1 Unknown COMPLETE BLOOD COUNT 08441 HCT DET 44.4 % 1 Unknown COMPLETE BLOOD COUNT 09195 MCV 91.9 fL 1 Unknown COMPLETE BLOOD COUNT 04876 MCH 32.9 pg 1 Unknown COMPLETE BLOOD COUNT 98934 MCHC 35.8 g/dL 1 Unknown COMPLETE BLOOD COUNT 51798 PLT 273 10e9/L 08/30/19 11 Unknown COMPLETE BLOOD COUNT 63491 MPV 10.1 fL 1 Unknown COMPLETE BLOOD COUNT 56352 GARY % 45.3 % 1 Unknown COMPLETE BLOOD COUNT 38446 LY % 39.3 % 1 Unknown COMPLETE BLOOD COUNT 83141 MON % 9.8 % 1 Unknown COMPLETE BLOOD COUNT 37824 EOS % 5.4 % 1 Unknown COMPLETE BLOOD COUNT 37770 BASO % 0.2 % 1 Unknown COMPLETE BLOOD COUNT 14122 RDW 13.2 % 1 Unknown COMPLETE BLOOD COUNT 98456 ABS GARY 2.94 10e9/L 011 Unknown COMPLETE BLOOD COUNT 71932 ABS LYMPH 2.55 10e9/L 011 Unknown COMPLETE BLOOD COUNT 12969 ABS MONO 0.64 10e9/L 011 Unknown COMPLETE BLOOD COUNT 34424 ABS EOS 0.35 10e9/L 011 Unknown COMPLETE BLOOD COUNT 17494 ABS BASO 0.01 10e9/L 011 Unknown COMPLETE BLOOD COUNT 01227 RDW-SD 43.5 fL 1 Unknown FREE T4 08383 FREE T4 1.39 NG/DL 08/29/2010 Unknown LIPID GROUP 37641 HDL TEST 52 MG/DL 08/29/2010 Unknown LIPID GROUP 56473 TRIG 110 MG/DL 08/29/2010 Unknown LIPID GROUP 51917 TEST LDL 109 MG/DL 08/29/2010 Unknown LIPID GROUP 33365 CHOL 183 MG/DL 08/29/2010 Unknown LIPID GROUP 69496 RCHOL/HDL 3.52 RATIO 08/29/2010 Unknow n PSA EQUIMOLAR NITHIN 27644 PSA EQ 1.14 NG/ML 1 Unknown GFR CALC 5668379 GFR AA >60 ML/MIN 08/29/2010 Unknown GFR CALC 4150394 GFR NON-AA >60 ML/MIN 08/29/2010 Unknown COMPREHENSIVE METABOLIC 25961 AST 23 U/L 2010 Unknown COMPREHENSIVE METABOLIC 98534 ALT 19 IU/L 2010 Unknown COMPREHENSIVE METABOLIC 73422 BUN 12 MG/DL 2010 Unknown COMPREHENSIVE METABOLIC 93320 ALBUMIN 4.9 GM/DL 2010 Unknown COMPREHENSIVE METABOLIC 91129 CHLORIDE 95 MMOL/L 2010 Unknown COMPREHENSIVE METABOLIC 25169 BILI TOT 0.4 MG/DL 2010 Unknown COMPREHENSIVE METABOLIC 67621 ALK PHOS 59 U/L 2010 Unknown COMPREHENSIVE METABOLIC 98302 SODIUM 132 MMOL/L 08/29 Unknown COMPREHENSIVE METABOLIC 89684 CREATININE 0.96 MG/DL 08/2010 Unknown COMPREHENSIVE METABOLIC 95957 CALCIUM 10.6 MG/DL 08/29 Unknown COMPREHENSIVE METABOLIC 66888 POTASSIUM 4.0 MMOL/L 08/29 Unknown COMPREHENSIVE METABOLIC 51915 PROT TOT 8.0 GM/DL 2010 Unknown COMPREHENSIVE METABOLIC 54636 Glucose 105 MG/DL 2010 Unknown COMPREHENSIVE METABOLIC 38581 BICARB 22 MMOL/L 2010 Unknown COMPREHENSIVE METABOLIC 82800 ANION GAP 15 MEQ/L 2010 Unknown URIC ACID 60682 URIC ACID 6.7 MG/DL 12/12/2009 Unknown Procedures Procedure Codes Date ROUTINE VENIPUNCTURE CPT-4: 87233 04/18/2020 COMPREHEN METABOLIC PANEL CPT-4: 62859 04/18/2020 LIPID PANEL CPT-4: 16278 04/18/2020 A1C HPLC CPT-4: 09415 04/18/2020 PPPS, subseq visit CPT-4: G0439 10/12/2019 ROUTINE VENIPUNCTURE CPT-4: 93718 01/29/2018 COMPREHEN METABOLIC PANEL CPT-4: 08838 01/29/2018 LIPID PANEL CPT-4: 51369 01/29/2018 A1C HPLC CPT-4: 14498 01/29/2018 HEPATITIS C AB TEST CPT-4: 31930 01/29/2018 ROUTINE VENIPUNCTURE CPT-4: 04484 05/01/2017 ASSAY THYROID STIM HORMONE CPT-4: 07570 05/01/2017 COMPREHEN METABOLIC PANEL CPT-4: 40566 05/01/2017 COMPLETE CBC W/AUTO DIFF WBC CPT-4: 01833 05/01/2017 LIPID PANEL CPT-4: 08855 05/01/2017 A1C HPLC CPT-4: 43076 05/01/2017 ASSAY OF PSA TOTAL CPT-4: 70406 05/01/2017 ROUTINE VENIPUNCTURE CPT-4: 77685 01/04/2016 ASSAY OF FREE THYROXINE CPT-4: 76347 01/04/2016 ASSAY THYROID STIM HORMONE CPT-4: 09710 01/04/2016 COMPREHEN METABOLIC PANEL CPT-4: 28613 01/04/2016 COMPLETE CBC W/AUTO DIFF WBC CPT-4: 47824 01/04/2016 LIPID PANEL CPT-4: 56509 01/04/2016 ASSAY OF PSA TOTAL CPT-4: 81871 01/04/2016 A1C HPLC CPT-4: 51377 01/04/2016 ROUTINE VENIPUNCTURE CPT-4: 29257 02/02/2015 ASSAY OF FREE THYROXINE CPT-4: 08043 02/02/2015 ASSAY THYROID STIM HORMONE CPT-4: 04257 02/02/2015 COMPREHEN METABOLIC PANEL CPT-4: 38674 02/02/2015 COMPLETE CBC W/AUTO DIFF WBC CPT-4: 27810 02/02/2015 LIPID PANEL CPT-4: 99223 02/02/2015 ASSAY OF PSA TOTAL CPT-4: 90023 02/02/2015 A1C HPLC CPT-4: 91233 02/02/2015 THER/PROPH/DIAG INJ SC/IM CPT-4: 99216 07/19/2014 METHYLPREDNISOLONE 40 MG INJ CPT-4: J1030 07/19/2014 TRIAMCINOLONE ACET INJ NOS CPT-4: J3301 07/19/2014 ROUTINE VENIPUNCTURE CPT-4: 12678 06/14/2014 ASSAY OF FREE THYROXINE CPT-4: 56627 06/14/2014 ASSAY THYROID STIM HORMONE CPT-4: 38322 06/14/2014 COMPREHEN METABOLIC PANEL CPT-4: 54000 06/14/2014 COMPLETE CBC W/AUTO DIFF WBC CPT-4: 03185 06/14/2014 A1C HPLC CPT-4: 50577 06/14/2014 VITAMIN B 12 FOLIC ACID CPT-4: 60518|32684 06/14/2014 RBC SED RATE AUTOMATED CPT-4: 03439 06/14/2014 RHEUMATOID FACTOR QUANT CPT-4: 42508 06/14/2014 ANTINUCLEAR ANTIBODIES CPT-4: 63813 06/14/2014 ANTISTREPTOLYSIN O TITER CPT-4: 49708 06/14/2014 ASSAY OF BLOOD/URIC ACID CPT-4: 13041 06/14/2014 C-REACTIVE PROTEIN CPT-4: 24663 06/14/2014 ROUTINE VENIPUNCTURE CPT-4: 72093 03/09/2014 COMPREHEN METABOLIC PANEL CPT-4: 03958 03/09/2014 A1C HPLC CPT-4: 70291 03/09/2014 ROUTINE VENIPUNCTURE CPT-4: 35466 11/18/2013 ASSAY OF FREE THYROXINE CPT-4: 00302 11/18/2013 ASSAY THYROID STIM HORMONE CPT-4: 32547 11/18/2013 COMPREHEN METABOLIC PANEL CPT-4: 47899 11/18/2013 COMPLETE CBC W/AUTO DIFF WBC CPT-4: 11656 11/18/2013 LIPID PANEL CPT-4: 31984 11/18/2013 ASSAY OF PSA TOTAL CPT-4: 24993 11/18/2013 A1C HPLC CPT-4: 43087 11/18/2013 REMOVE FOREIGN BODY CPT-4: 30144 11/09/2013 OCCULT BLOOD FECES CPT-4: 45039 11/09/2013 THER/PROPH/DIAG INJ SC/IM CPT-4: 27036 11/24/2012 VITAMIN B12 INJECTION CPT-4: J3420 11/24/2012 COMPREHEN METABOLIC PANEL CPT-4: 54393 11/03/2012 COMPLETE CBC W/AUTO DIFF WBC CPT-4: 67359 11/03/2012 ASSAY THYROID STIM HORMONE CPT-4: 77762 11/03/2012 ASSAY OF BLOOD/URIC ACID CPT-4: 86338 11/03/2012 ROUTINE VENIPUNCTURE CPT-4: 04047 11/03/2012 ROUTINE VENIPUNCTURE CPT-4: 00405 02/25/2012 COMPREHEN METABOLIC PANEL CPT-4: 42479 02/25/2012 COMPLETE CBC W/AUTO DIFF WBC CPT-4: 33560 02/25/2012 HERPE1/2MG CPT-4: 35211|60207|22643 02/25/2012 THER/PROPH/DIAG INJ SC/IM CPT-4: 04874 09/24/2011 VITAMIN B12 INJECTION CPT-4: J3420 09/24/2011 CEFTRIAXONE SODIUM INJECTION CPT-4: J0696 09/24/2011 THER/PROPH/DIAG INJ SC/IM CPT-4: 77647 09/24/2011 ROUTINE VENIPUNCTURE CPT-4: 69989 09/17/2011 COMPREHEN METABOLIC PANEL CPT-4: 90717 09/17/2011 COMPLETE CBC W/AUTO DIFF WBC CPT-4: 88727 09/17/2011 LIPID PANEL CPT-4: 39845 09/17/2011 VITAMIN B 12 FOLIC ACID CPT-4: 77316|37196 09/17/2011 A1C GLYCOSYLATED HEMOGLOBIN TEST CPT-4: 10139 012 ROUTINE VENIPUNCTURE CPT-4: 19084 08/29/2010 COMPLETE CBC W/AUTO DIFF WBC CPT-4: 62470 08/29/2010 COMPREHEN METABOLIC PANEL CPT-4: 54104 08/29/2010 LIPID PANEL CPT-4: 07687 08/29/2010 ASSAY THYROID STIM HORMONE CPT-4: 41005 08/29/2010 ASSAY OF FREE THYROXINE CPT-4: 48398 08/29/2010 ASSAY OF PSA TOTAL CPT-4: 02895 08/29/2010 THER/PROPH/DIAG INJ SC/IM CPT-4: 03612 12/12/2009 VITAMIN B12 INJECTION CPT-4: J3420 12/12/2009 ROUTINE VENIPUNCTURE CPT-4: 93267 12/12/2009 ASSAY OF BLOOD/URIC ACID CPT-4: 51855 12/12/2009 THER/PROPH/DIAG INJ SC/IM CPT-4: 49252 10/30/2009 VITAMIN B12 INJECTION CPT-4: J3420 10/30/2009 THER/PROPH/DIAG INJ SC/IM CPT-4: 75721 10/01/2009 VITAMIN B12 INJECTION CPT-4: J3420 10/01/2009 THER/PROPH/DIAG INJ SC/IM CPT-4: 33388 10/01/2009 CEFTRIAXONE SODIUM INJECTION CPT-4: J0696 10/01/2009 Vital Signs Date Vital 10/22/2020 Blood Pressure 1: 140/76 Code: 8480-6 Heart Rate 1: 71 bpm Respiratory Rate: 17 bpm SpO2: 98% Temperature: 36.3 (C) / 97.3 (F) We ight: 149 lbs Code: 12916-8 10/19/2020 Blood Pressure 1: 121/87 Code: 8480-6 Heart Rate 1: 100 bpm Respiratory Rate: 16 bpm SpO2: 96% Temperature: 36.3 (C) / 97.3 (F) We ight: 149 lbs Code: 95907-7 10/01/2020 Blood Pressure 1: 140/84 Code: 8480-6 Heart Rate 1: 100 bpm Respiratory Rate: 18 bpm SpO2: 96% Temperature: 36.6 (C) / 97.9 (F) We ight: 147 lbs Code: 00690-3 09/24/2020 Blood Pressure 1: 112/70 Code: 8480-6 [...] 98.1 (F) We ight: 152 lbs Code: 25691-8 09/12/2020 Blood Pressure 1: 133/70 Code: 8480-6 Heart Rate 1: 100 bpm Respiratory Rate: 16 bpm SpO2: 100% Temperature: 36.5 (C) / 97.7 (F) We ight: 152 lbs Code: 70436-3 04/18/2020 Blood Pressure 1: 144/78 Code: 8480-6 Heart Rate 1: 80 bpm Respiratory Rate: 16 bpm SpO2: 98% Temperature: 36.4 (C) / 97.5 (F) We ight: 160 lbs Code: 11160-1 10/12/2019 Blood Pressure 1: 124/78 Code: 8480-6 BMI: 24.8 Code: 26640-8 Heart Rate 1: 76 bpm Height: 5'8" Code: 8302-2 Respiratory Rate: 20 bpm SpO2: 98% Temperature: 36.6 (C) / 97.9 (F) Weight: 163 lbs Code: 55589-3 04/25/2019 Blood Pressure 1: 140/86 Code: 8480-6 BMI: 24.3 Code: 38233-1 Heart Rate 1: 92 bpm Height: 5'8" Code: 8302-2 Respiratory Rate: 20 bpm SpO2: 98% Temperature: 36.8 (C) / 98.3 (F) Weight: 160 lbs Code: 31708-6 04/12/2019 Blood Pressure 1: 146/86 Code: 8480-6 BMI: 25.4 Code: 22772-2 Heart Rate 1: 88 bpm Height: 5'8" Code: 8302-2 Respiratory Rate: 20 bpm SpO2: 98% Temperature: 36.5 (C) / 97.7 (F) Weight: 167 lbs Code: 00052-9 02/17/2018 Blood Pressure 1: 114/62 Code: 8480-6 Bl ood Pressure 2: 116/70 Code: 8480-6 BMI: 24.9 Code: 66038-6 Heart Rate 1: 76 bpm Height: 5'8" Code: 8302-2 Respiratory Rate: 20 bpm SpO2: 97% Temperature: 36.7 (C) / 98.0 (F) We ight: 164 lbs Code: 54657-5 04/07/2017 Blood Pressure 1: 122/84 Code: 8480-6 BMI: 24.3 Code: 60318-6 Heart Rate 1: 72 bpm Height: 5'8" Code: 8302-2 Respiratory Rate: 20 bpm SpO2: 96% Temperature: 36.9 (C) / 98.4 (F) Weight: 160 lbs Code: 03852-0 09/19/2016 Blood Pressure 1: 124/76 Code: 8480-6 BMI: 24.6 Code: 18954-4 Heart Rate 1: 68 bpm Height: 5'8" Code: 8302-2 Respiratory Rate: 20 bpm SpO2: 96% Temperature: 36.6 (C) / 97.9 (F) Weight: 162 lbs Code: 93376-9 12/18/2015 Blood Pressure 1: 136/70 Code: 8480-6 BMI: 24.3 Code: 49295-6 Heart Rate 1: 84 bpm Height: 5'8" Code: 8302-2 Respiratory Rate: 20 bpm Temperatu re: 36.5 (C) / 97.7 (F) Weight: 160 lbs Code: 53350-5 07/20/2015 Blood Pressure 1: 140/84 Code: 8480-6 BMI: 24.9 Code: 78283-3 Heart Rate 1: 76 bpm Height: 5'8" Code: 8302-2 Respiratory Rate: 20 bpm Temperatu re: 36.6 (C) / 97.9 (F) Weight: 164 lbs Code: 90744-7 02/07/2015 Blood Pressure 1: 164/82 Code: 8480-6 BMI: 25.5 Code: 46774-5 Heart Rate 1: 78 bpm Height: 5'8" Code: 8302-2 Respiratory Rate: 20 bpm Temperatu re: 36.5 (C) / 97.7 (F) Weight: 168 lbs Code: 72719-4 07/19/2014 Blood Pressure 1: 136/94 Code: 8480-6 BMI: 24.8 Code: 98911-8 Heart Rate 1: 88 bpm Height: 5'8" Code: 8302-2 Respiratory Rate: 20 bpm Temperatu re: 36.8 (C) / 98.2 (F) Weight: 163 lbs Code: 99334-7 07/06/2014 Blood Pressure 1: 136/92 Code: 8480-6 BMI: 24.2 Code: 65817-1 Heart Rate 1: 88 bpm Height: 5'8" Code: 8302-2 Respiratory Rate: 20 bpm Temperatu re: 36.9 (C) / 98.4 (F) Weight: 159 lbs Code: 87929-2 07/04/2014 Blood Pressure 1: 116/84 Code: 8480-6 Bl ood Pressure 2: 108/82 Code: 8480-6 Heart Rate 1: 88 bpm Respiratory Rate: 20 bpm Temperature: 3 6.7 (C) / 98.0 (F) Weight: 159 lbs Code: 12448-8 06/14/2014 Blood Pressure 1: 132/90 Code: 8480-6 BMI: 24.6 Code: 02520-3 Heart Rate 1: 100 bpm Height: 5'8" Code: 8302-2 Respiratory Rate: 20 bpm Temperatu re: 37.2 (C) / 99.0 (F) Weight: 162 lbs Code: 54392-2 03/09/2014 Blood Pressure 1: 122/62 Code: 8480-6 BMI: 25.4 Code: 54151-9 Heart Rate 1: 84 bpm Height: 5'8" Code: 8302-2 Respiratory Rate: 20 bpm Temperatu re: 36.6 (C) / 97.8 (F) Weight: 167 lbs Code: 27821-7 01/05/2014 Blood Pressure 1: 124/82 Code: 8480-6 BMI: 25.4 Code: 50323-0 Heart Rate 1: 84 bpm Height: 5'8" Code: 8302-2 Respiratory Rate: 20 bpm Temperatu re: 36.7 (C) / 98.0 (F) Weight: 167 lbs Code: 41519-4 11/09/2013 Blood Pressure 1: 138/82 Code: 8480-6 BMI: 24.5 Code: 82833-8 Heart Rate 1: 84 bpm Height: 5'8" Code: 8302-2 Respiratory Rate: 20 bpm Temperatu re: 37.1 (C) / 98.8 (F) Weight: 161 lbs Code: 68450-7 11/24/2012 Blood Pressure 1: 122/72 Code: 8480-6 BMI: 24.0 Code: 05964-2 Heart Rate 1: 66 bpm Height: 5'8" Code: 8302-2 Respiratory Rate: 20 bpm Temperatu re: 36.5 (C) / 97.7 (F) Weight: 158 lbs Code: 68400-0 11/03/2012 Blood Pressure 1: 130/84 Code: 8480-6 BMI: 23.7 Code: 57296-1 Heart Rate 1: 72 bpm Height: 5'8" Code: 8302-2 Respiratory Rate: 20 bpm Temperatu re: 36.2 (C) / 97.1 (F) Weight: 156 lbs Code: 86495-7 02/25/2012 Blood Pressure 1: 142/84 Code: 8480-6 BMI: 25.1 Code: 96280-2 Heart Rate 1: 68 bpm Height: 5'8" Code: 8302-2 Temperature: 37.2 (C) / 99.0 (F) Weight: 165 lbs Code: 94192-4 10/08/2011 Blood Pressure 1: 126/80 Code: 8480-6 BMI: 24.3 Code: 86514-2 Heart Rate 1: 84 bpm Height: 5'8" Code: 8302-2 Respiratory Rate: 20 bpm Temperatu re: 36.8 (C) / 98.2 (F) Weight: 160 lbs Code: 88642-6 09/24/2011 Blood Pressure 1: 136/80 Code: 8480-6 BMI: 24.3 Code: 27831-1 Heart Rate 1: 84 bpm Height: 5'8" Code: 8302-2 Respiratory Rate: 20 bpm Temperatu re: 36.8 (C) / 98.2 (F) Weight: 160 lbs Code: 27626-0 09/17/2011 Blood Pressure 1: 128/84 Cod e: 8480-6 09/09/2011 Blood Pressure 1: 142/84 Code: 8480-6 BMI: 24.3 Code: 34580-7 Height: 5'8" Code: 8302-2 Temperature: 36.7 (C) / 98.0 (F) Weight: 160 lbs Code : 66110-1 08/29/2010 Blood Pressure 1: 144/84 Code: 8480-6 Heart Rate 1: 72 bpm Temperature: 36.8 (C) / 98.2 (F) Weight: 156 lbs Code: 01639-9 12/12/2009 Blood Pressure 1: 146/88 Code: 8480-6 Heart Rate 1: 76 bpm Temperature: 36.6 (C) / 97.9 (F) Weight: 152 lbs Code: 08988-6 10/30/2009 Blood Pressure 1: 132/70 Code: 8480-6 Heart Rate 1: 80 bpm Temperature: 36.9 (C) / 98.4 (F) Weight: 151 lbs Code: 98340-4 10/01/2009 Blood Pressure 1: 142/86 Code: 8480-6 BMI: 23.0 Code: 71429-5 Heart Rate 1: 84 bpm Height: 5'8" Code: 8302-2 Temperature: 36.9 (C) / 98.4 (F) Weight: 151 lbs Code: 63232-5 Functional Status No Functional Status data Reason For Visit Reason For Visit Effective Dates Notes follow up 10/22/2020 neck swelling 10/19/2020 follow up 10/01/2020 follow up 09/24/2020 follow up 09/17/2020 follow up 09/14/2020 dvt right leg bone pain 09/12/2020 follow up 04/18/2020 well man exam (65+ years) 10/12/2019 Annual [facility]---no recent labs and patient not fasting today follow up 04/25/2019 follow up 04/12/2019 from [facility] well man exam (40-65 years) [...] 10/01/2009 establishing vis it, being treated for [place] Spotted Fever Encounters Encounter Performer Location Codes Date ([id number]) OFFICE/OUTPATIENT VISIT EST Diagnosis: Mass of left lung[ICD10: R91.8] Diagnosis: Supraclavicular adenopathy[ICD10: R59.0] Diagnosis: On anticoagulant therapy[ICD10: Z79.01] Diagnosis: Other acute pulmonary embolism without acute cor pulmonale[ICD10: I26.99] Diagnosis: Lymphadenopathy[ICD10: R59.1] Diagnosis: Thrombocytopenia[ICD10: D69.6] Diagnosis: Pericardial effusion[ICD10: I31.3] Estephanie KEYES [facility] CPT-4: 56121 10/22/2020 ([id number]) OFFICE/OUTPATIENT VISIT EST Diagnosis: Supraclavicular adenopathy[ICD10: R59.0] Diagnosis: Difficulty swallowing[ICD10: R13.10] [facility] CPT-4: 62019 10/19/2020 ([id number]) OFFICE/OUTPATIENT VISIT EST Diagnosis: On anticoagulant therapy[ICD10: Z79.01] Diagnosis: Acute deep vein thrombosis (DVT) of femoral vein of right lower extremity[ICD10: I82.411] Estephanie KEYES [facility] CPT-4 : 25915 10/01/2020 ([id number]) OFFICE/OUTPATIENT VISIT EST Diagnosis: Right leg DVT[ICD10: I82.401] Tracie Keyes TRACIE Lee [facility] CPT-4: 39316 09/24/2020 ([id number]) OFFICE/OUTPATIENT VISIT EST Diagnosis: Acute deep vein thrombosis (DVT) of femoral vein of right lower extremity[ICD10: I82.411] Diagnosis: On anticoagulant therapy[ICD10: Z79.01] Estephanie CARPENTERKAMALJIT Lee KEYES [facility] CPT-4: 68743 09/17/2020 ([id number]) OFFICE/OUTPATIENT VISIT EST Diagnosis: Acute deep vein thrombosis (DVT) of femoral vein of right lower extremity[ICD10: I82.411] Estephanie KEYES [facility] CPT-4 : 11643 09/14/2020 ([id number]) OFFICE/OUTPATIENT VISIT EST Diagnosis: Fall down stairs, initial encounter[ICD10: W10.8XXA] Diagnosis: Right leg swelling[ICD10: M79.89] Diagnosis: Right leg pain[ICD10: M79.604] Estephanie Mcguirewillam TRACIE Elvin KEYES [facility] CPT-4: 04444 09/12/2020 ([id number]) OFFICE/OUTPATIENT VISIT EST Diagnosis: Hypertension[ICD10: I10] Diagnosis: Hyperglycemia, unspecified[ICD10: R73.9] Diagnosis: Mixed hyperlipidemia[ICD10: E78.2] Tracie KEYES [employer] CPT-4: 48316 04/18/2020 ([id number]) OFFICE/OUTPATIENT VISIT EST 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] Diagnosis: Cat scratch[ICD10: W55.03XA] Diagnosis: Hypertension[ICD10: I10] Diagnosis: Pulmonary nodules[ICD10: R91.8] Tracie KEYES [employer] CPT-4: 52897 04/25/2019 ([id number]) OFFICE/OUTPATIENT VISIT EST 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] Diagnosis: Dysphagia[ICD10: R13.10] Tracie CHANG [employer] CPT-4: 37615 04/12/2019 ([id number]) PER PM REEVAL EST PAT 65+ YR Diagnosis: Encounter for general adult medical examination without abnormal findings[ICD10: Z00.00] Diagnosis: Essential (primary) hypertension[ICD10: I10] Diagnosis: Hyperglycemia, unspecified[ICD10: R73.9] Tracie KEYES [employer] CPT-4: 66376 02/17/2018 ([id number]) NURSE/OUTPATIENT VISIT EST Diagnosis: Essential (primary) hypertension[ICD10: I10] Diagnosis: Mixed hyperlipidemia[ICD10: E78.2] Diagnosis: Hyperglycemia, unspecified[ICD10: R73.9] Diagnosis: Encounter for screening for other viral diseases[ICD10: Z11.59] Tracie KEYES [employer] CPT-4: 20289 01/29/2018 ([id number]) OFFICE/OUTPATIENT VISIT EST Diagnosis: Encounter for general adult medical examination without abnormal findings[ICD10: Z00.00] Diagnosis: Mixed hyperlipidemia[ICD10: E78.2] Diagnosis: Essential (primary) hypertension[ICD10: I10] Diagnosis: Impaired fasting glucose[ICD10: R73.01] Diagnosis: Encounter for screening for malignant neoplasm of prostate[ICD10: Z12.5] Tracie KEYES DO [facility] CPT-4: 55630 05/01/2017 ([id number]) OFFICE/OUTPATIENT VISIT EST Diagnosis: URI, ACUTE[ICD10: J06.9] Tracie DURANLINE Lee ZHOU [facility] CPT-4: 05017 04/07/2017 OFFICE/OUTPATIENT VISIT EST Diagnosis: Essential (primary) hypertension[ICD10: I10] Ashley Den TRACIE KEYES DO [facility] CPT-4: 67376 09/19/2016 ([id number]) OFFICE/OUTPATIENT VISIT EST Diagnosis: Encounter for general adult medical examination without abnormal findings[ICD10: Z00.00] Diagnosis: Essential (primary) hypertension[ICD10: I10] Diagnosis: Impaired fasting glucose[ICD10: R73.01] Tracie Nikhilkaren JEISON KEYES DO [facility] CPT-4: 92227 01/04/2016 ([id number]) OFFICE/OUTPATIENT VISIT EST Diagnosis: Essential (primary) hypertension[ICD10: I10] Diagnosis: Mixed hyperlipidemia[ICD10: E78.2] Diagnosis: Impaired fasting glucose[ICD10: R73.01] Tracie Tejedarhiannanorman KEYES DO [facility] CPT-4: 04848 12/18/2015 ([id number]) PREV VISIT EST AGE 40-64 Diagnosis: Encounter for general adult medical examination without abnormal findings[ICD10: Z00.00] Diagnosis: Essential (primary) hypertension[ICD10: I10] Ashleydarron Crenshaw TRACIE Lee KEYES DO [facility] CPT-4: 99567 07/20/2015 OFFICE/OUTPATIENT VISIT EST Diagnosis: Mixed hyperlipidemia[ICD10: E78.2] Diagnosis: Impaired fasting glucose[ICD10: R73.01] Diagnosis: Insomnia, unspecified[ICD10: G47.00] Jacque Lopez ROGER KAMALJIT Lee KEYES DO [facility] CPT-4: 82797 02/07/2015 ([id number]) OFFICE/OUTPATIENT VISIT EST Diagnosis: Encounter for general adult medical examination without abnormal findings[ICD10: Z00.00] Diagnosis: Essential (primary) hypertension[ICD10: I10] Diagnosis: Mixed hyperlipidemia[ICD10: E78.2] Tracie KINSEY KIMBERLEE Lee TEJEDANDNORMAN SPRINGER [facility] CPT-4: 81425 02/02/2015 ([id number]) OFFICE/OUTPATIENT VISIT EST Diagnosis: SINUSITIS, ACUTE[ICD9: 461.9] Jacquesa Jessica KEYES DO [facility] CPT-4: 00741 07/19/2014 ([id number]) OFFICE/OUTPATIENT VISIT EST Diagnosis: Hypotension[ICD9: 458.9] Diagnosis: DYSPEPSIA[ICD9: 536.8] Diagnosis: HYPERTENSION[ICD9: 401.9] Tracie GALEANO DO [facility] CPT-4: 71112 07/06/2014 ([id number]) OFFICE/OUTPATIENT VISIT EST Diagnosis: DIZZINESS/VERTIGO[ICD9: 780.4] Diagnosis: HYPOTENSION[ICD9: 458.9] Diagnosis: MALAISE AND FATIGUE[ICD9: 780.79] Tracie Nikhilkaren EM Lidia KEYES DO [facility] CPT-4: 41324 07/04/2014 ([id number]) OFFICE/OUTPATIENT VISIT EST Diagnosis: ARTHRALGIA-MULTIPLE SITES[ICD9: 719.49] Diagnosis: CEPHALGIA[ICD9: 784.0] Diagnosis: Uveitis[ICD9: 364.3] Tracie KEYES DO [facility] CPT-4: 34907 06/14/2014 ([id number]) OFFICE/OUTPATIENT VISIT EST Diagnosis: HYPERTENSION[ICD9: 401.9] Diagnosis: OTHER ABNORMAL GLUCOSE[ICD9: 790.29] Tracie Nikhilkaren ROGER KAMALJIT Lee [facility] CPT-4: 46836 03/09/2014 ([id number]) OFFICE/OUTPATIENT VISIT EST Diagnosis: OTHER ABNORMAL GLUCOSE[ICD9: 790.29] Tracie Nikhilkaren MARI Lee TEJEDANDER [facility] CPT-4: 46666 01/05/2014 ([id number]) OFFICE/OUTPATIENT VISIT EST Diagnosis: ROUTINE MEDICAL EXAM[ICD9: V70.0] Tracie Nikhilkaren Murillo Lee TEJEDANDNORMAN SPRINGER [facility] CPT-4: 37497 11/18/2013 ([id number]) PREV VISIT EST AGE 40-64 Diagnosis: ROUTINE MEDICAL EXAM[ICD9: V70.0] Diagnosis: HYPERLIPIDEMIA NEC/NOS[ICD9: 272.4] Diagnosis: FOREIGN BODY FINGER[ICD9: 915.6] Tracie KEYES [facility] CPT-4: 15431 11/09/2013 ([id number]) OFFICE/OUTPATIENT VISIT EST Diagnosis: CERVICALGIA[ICD9: 723.1] Diagnosis: B12 DEFIC ANEMIA NEC[ICD9: 281.1] Diagnosis: DISTURBANCE OF SKIN SENSATION (Paresthesia)[ICD9: 782.0] Tracie [facility] CPT-4: 25949 11/24/2012 OFFICE/OUTPATIENT VISIT EST Diagnosis: Neck pain on left side[ICD9: 723.1] Diagnosis: Tendonitis of elbow, left[ICD9: 727.09] Jacque Jessica TRACIE Howard [facility] CPT-4: 16893 11/03/2012 OFFICE/OUTPATIENT VISIT EST Diagnosis: Oral lesion[ICD9: 528.9] Diagnosis: Herpes zoster[ICD9: 053.9] Diagnosis: FEBRILE ILLNESS[ICD9: 780.60] Liz Randall TRACIE [facility] CPT-4: 63687 02/25/2012 OFFICE/OUTPATIENT VISIT EST Diagnosis: MALAISE AND FATIGUE[ICD9: 780.79] Diagnosis: B12 DEFIC ANEMIA NEC[ICD9: 281.1] Diagnosis: SPOTTED FEVERS[ICD9: 082.0] Diagnosis: SPASM OF MUSCLE[ICD9: 728.85] Tracie Stephy DURANLINE Lee [facility] CPT-4: 19427 10/08/2011 ([id number]) OFFICE/OUTPATIENT VISIT EST Diagnosis: MALAISE AND FATIGUE[ICD9: 780.79] Diagnosis: SPOTTED FEVERS[ICD9: 082.0] Diagnosis: B12 DEFIC ANEMIA NEC[ICD9: 281.1] Tracie Stephy EM Murillo Lee [facility] CPT-4: 86842 09/24/2011 ([id number]) OFFICE/OUTPATIENT VISIT EST Diagnosis: B12 DEFIC ANEMIA NEC[ICD9: 281.1] Diagnosis: HYPERTENSION[ICD9: 401.9] Diagnosis: MALAISE AND FATIGUE[ICD9: 780.79] Diagnosis: OTHER ABNORMAL GLUCOSE[ICD9: 790.29] Tracie KEYES DO [employer] CPT-4: 37851 09/17/2011 OFFICE/OUTPATIENT VISIT EST Diagnosis: NONVENOM ARTHROPOD BITE[ICD9: E906.4] Diagnosis: HYPERTENSION[ICD9: 401.9] Tracie TEJEDA NDER DO [facility] CPT-4: 86761 09/09/2011 PREV VISIT EST AGE 40-64 Tracie WELCH R DO [facility] CPT-4: 70179 08/29/2010 ([id number]) OFFICE/OUTPATIENT VISIT, EST Tracie KEYES DO [facility] CPT-4: 03643 12/12/2009 ([id number]) OFFICE/OUTPATIENT VISIT, EST Tracie KEYES DO [facility] CPT-4: 48132 10/30/2009 ([id number]) OFFICE/OUTPATIENT VISIT, NEW Tracie OBRIENER DO [facility] CPT-4: 92041 10/01/2009 Plan of Care Planned Activity Notes Codes Status Date Visit Plan: Discussed labs and CT with p jing. Questions answered. Will send order for PET CT d/t lung masses and adenopathy Echo today for pericardial effusion Recheck CBC today d/t thrombocytopenia Continue Eliquis 10/22/2020 Visit NOS Plan: Plan Notes: Discussed labs a nd CT with pat... 10/22/2020 Patient Education: Patient Medication Summary Completed 10/22/2020 Visit Diagnosis Plan: Supraclavicular adenopathy Discu ssion: Will send for stat CT neck chest with contrast and labs at [facility] ICD-9 : 785.6 ICD-10 : R59.0 10/19/2020 Appointment[facility] [phone] [facility] [facility] 10/19/2020 Patient Education: Patient Medication [...] 10/01/2020 Appointment: [facility] [phone] [facility] [facility] 10/01/2020 Patient Education: [...] I82.401 09/24/2020 Appointment: Tracie Keyes WPtel: [phone] [facility] US FOLLOW UP 09/24/2020 Visit Diagnosis Plan: [...] extremity Discussion: Swelling decreasing. F/U 1 w [facility] for recheck. ICD-9 : 453.41 ICD-10 : I82.411 09/17/2020 Appointment: Estephanie Zaidi WPtel: [phone] [facility] US FOLLOW UP 09/17/2020 Patient Education: Patient Medication Summary Completed 09/17/2020 Patient Education: Eliquis- [employer] Coupon [id number] [email or web address]://www.[employer]/samplePhiltro/resources/getResource/61/r59pocdi-2kzp-172r-49 Completed 09/17/2020 Patient Education: tramadol- [employer] Coupon [id number] https://www.[employer]/samplemd/resources/getResource/61/erp11565-be56-8w60-34 Completed 09/17/2020 Visit Diagnosis Plan: Acute deep [...] 453.41 ICD-10 : I82.411 09/14/2020 Appointment: Estephanie Ziadi WPtel: [phone] [facility] US FOLLOW UP 09/14/2020 Patient Education: Patient Medication Summary Completed 09/14/2020 Visit Diagnosis Plan: Right leg swelling Discussion: W ill send to [facility] for stat doppler to r/o DVT d/t swelling and pain and f/u with results. ICD-9 : 729.81 ICD-10 : M79.89 09/12/2020 Appointment: Estephanie Zaidi WPtel: [phone] [facility] ACUTE ILLNESS 09/12/2020 Patient Education: Patient [...] R73.9 04/18/2020 Appointment: Tracie Keyes WPtel: [phone] [facility] US FOLLOW UP 04/18/2020 Patient Education: lisinopril- [employer] Coupon [id number] https://www.[employer]/samplemd/resources/getResource/61/587622wz-ebst-33h6-73 Completed 04/18/2020 Visit Diagnosis Plan: Essential (primary) hypertension Discussion: Stable on lisinopril ICD-9 : 401.9 ICD-10 : I10 10/12/2019 Visit Diagnosis Plan: [facility] without abnormal findings Discussion: Mediterranean diet Combinati on of cardio and weight bearing exercise Will return for fasting lab next week ICD-9 : V70.0 ICD-10 : Z00.00 10/12/2019 Visit Diagnosis Plan: Hyperglycemia, unspecified Discu ssion: Will return for HbA1C next week ICD-9 : 790.29 ICD-10 : R73.9 10/12/2019 Appointment: Tracie Keyes WPtel: [address] [place] [address] INSIDE Annual Well Visit 10/12/2019 Appointment: Viridiana Lima [address] FOLLOW UP 05/16/2019 Visit Diagnosis Plan: Pulmonary nodules Discussion: Re peat CT scan of chest in 3mos ICD-9 : 793.19 ICD-10 : R91.8 04/25/2019 Visit Diagnosis Plan: Hypertension Discussion: Restart lisinopril 20mg daily Recheck 3weeks ICD-9 : 401.9 ICD-10 : I10 04/25/2019 Visit Diagnosis Plan: Angelita Quionnez virus infection Dis cussion: Supportive care ICD-9 : 075 ICD-10 : B27.90 04/25/2019 Visit Diagnosis Plan: Cat scratch Discussion: Zithroma x for 1 week ICD-9 : 919.0 ICD-10 : W55.03XA 04/25/2019 Appointment: Tracie Keyes WPtel: [facility] [address] Hospital Follow Up 04/25/2019 Patient Education: nystatin- [employer] Coupon [id number] https://www.Press[employer]/samplemd/resources/getResource/61/[email or web address] Completed 04/25/2019 Visit Diagnosis Plan: Submandibular gland [...] 527.1 ICD-10 : K11.1 04/12/2019 Appointment: Tracie Keyestel: [address] [place] [address] 04/12/2019 Appointment: Tracie Keyestel: [address] [place] [address] LM CANCELED 08/09/2018 Visit Diagnosis Plan: Essential (primary) hypertension Discussion: Stable ICD-9 : 401.9 ICD-10 : I10 02/17/2018 Visit Diagnosis Plan: [facility] without abnormal findings Discussion: Lab discussed Refuses prosta te check Refuses colonoscopy Will check with pharmacy on Shingrix/Flu shot and Prevnar ICD-9 : V70.0 ICD-10 : Z00.00 02/17/2018 Visit Diagnosis Plan: Hyperglycemia, unspecified Discu ssion: Wants to focus on diet/exercise and recheck in 6mos ICD-9 : 790.29 ICD-10 : R73.9 02/17/2018 Appointment: Tracie Keyestel: [address] [place] [address] Annual Well Visit 02/17/2018 Appointment: Tracie Keyestel: [address] [place] [address] US LAB 01/29/2018 Appointment: Tracie Keyestel: [address] [place], [place] [address] [place] LAB 05/01/2017 Patient Education: Patient Medication [...] Rest, Fluids... 04/07/2017 Appointment: Tracie Keyes WPtel: [address] [place], [place] [phone] ACUTE ILLNESS 04/07/2017 Patient Education: Patient Medication Summary Completed 04/07/2017 Visit Plan: Had meds refilled for 6 joseph hs the other day. RTC 6 months Described s/s of heart disease that he would need to report for to us or ER/UC. 09/19/2016 Appointment: Ashley Crenshaw WPtel: [address] [place], [place] [phone] [place] 09/18 lm`sl FOLLOW UP 09/19/2016 Patient Education: Patient Medication Summary Completed 09/19/2016 Appointment: Tracie Keyes WPtel: [address] [place], [place] [address] [place] LAB 01/04/2016 Patient Education: Patient Medication Summary Completed 01/04/2016 Visit Plan: Will get flu shot at work Up date fasting lab 12/18/2015 Appointment: Tracie Keyes WPtel: [address] [place], [place] [phone] [place] 12/16 lm~sl FOLLOW UP 12/18/2015 Patient Education: Patient Medication Summary Completed 12/18/2015 Visit Plan: Pt declined rectal/prostate exam. Encouraged to get colonoscopy Plan labs for fall 2015 Continue on current meds but send in home B/P since today's B/P is elevated to see if dosage change is indicated. RTC in 6 months 07/20/2015 Appointment: Debbie Crenshawcy WPtel: [address] [place], [place] [phone] 07/18 lm ~sl Annual Well Visit 07/20/2015 Patient Education: Patient Medication Summary Completed 07/20/2015 Visit Plan: Resume BP med Resume Metform in( has been off > 9 months) Add HgbA1C to labs drawn last week, Trial of Selinor for sleep. Will let us know how he does with it. 02/07/2015 Appointment: Jacque Lopez WPtel: [address] [place], [place] [phone] 02/06/15 cn....appt confirmed cn FOLLOW UP 02/07/2015 Patient Education: Patient Medication Summary Completed 02/07/2015 Patient Education: [facility] - Saving [employer] - Lisinopril - 18-64 - Dynamic Portal ID Completed 02/07/2015 Appointment: Tracie Keyes WPtel: [address] [place], [place] [phone] LAB 02/02/2015 Patient Education: Patient Medication Summary Completed 02/02/2015 Appointment: Jacque Lopez WPtel: [address] [place], [place] [phone] ACUTE ILLNESS 07/19/2014 Patient Education: Patient Medication Summary Completed 07/19/2014 Visit Plan: Restart Diltiazem Continue t o hydrate Call in 3 days on how doing 07/06/2014 Appointment: Tracie Keyes WPtel: [address] [place], [place] [phone] [place] 07/05 appt confirmed cn FOLLOW UP 07/07/19 Patient Education: Patient Medication Summary Completed 07/06/2014 Visit Plan: Hold lisinopril hct Hydrate Recheck 2 days Meclizine 25mg q HS Hold metformin Call in AM 07/04/2014 Appointment: Tracie Keyes WPtel: [address] [place], [place] [phone] [place] FOLLOW UP 07/04/2014 Patient Education: Patient Medication Summary Completed 07/04/2014 Appointment: Tracie Keyes WPtel: [address] [place] [address] ACUTE ILLNESS 06/14/2014 Patient Education: Patient Medication Summary Completed 06/14/2014 Appointment: Tracie Keyes WPtel: [address] [place] [address] FOLLOW UP 03/09/2014 Patient Education: Patient Medication Summary Completed 03/09/2014 Visit Plan: Continue metformin at curren t dose Accuchecks daily alternating times Diabetic diet info given Check CMP with HbA1C in 2mos then fwup 01/05/2014 Appointment: Tracie Keyes WPtel: [address] [place] [address] FOLLOW UP 01/05/2014 Patient Education: Patient Medication Summary Completed 01/05/2014 Visit Plan: Did not need lab so will jus t fwup as scheduled 01/03/2014 Appointment: Tracie Keyes WPtel: [address] [place] [address] LAB 01/03/2014 Patient Education: Patient Medication Summary Completed 01/03/2014 Appointment: Tracie Keyestel: [address] [place] [address] LAB 11/18/2013 Patient Education: Patient Medication Summary Completed 11/18/2013 Visit Plan: Continue current meds Remova l of splinter as above Keflex for 1 week Continue current meds Fwup next week for fasting lab including PSA 11/09/2013 Appointment: Tracie Keyestel: [address] [place] [address] 11/08 Annual Well Visit 11/09/2013 Patient Education: Patient Medication Summary Completed 11/09/2013 Patient Education: [facility] - Saving [employer] - Lisinopril - 18+ - Dynamic Portal ID Completed 11/09/2013 Appointment: Tracie Keyes WPtel: [address] [place], [place] [phone] 11/[address] [facility] FOLLOW UP 11/24/2012 Patient Education: Patient Medication Summary Completed 11/24/2012 Appointment: SaleemGil Jacque Trivedi WPtel: [address] [place], [place] [phone] FOLLOW UP 11/10/2012 Appointment: Jessica Jacque Trivedi WPtel: [address] [place], [place] [phone] ACUTE ILLNESS 11/03/2012 Patient Education: Patient Medication Summary Completed 11/03/2012 Appointment: Liz Randall WPtel: [address] [place], [place] [phone] ACUTE ILLNESS 02/25/2012 Patient Education: Patient Medication Summary Completed 02/25/2012 Visit Plan: Finish abx Continue B12 OMT done Add Skelaxin 800mg q HS 10/08/2011 Appointment: Tracie Keyes WPtel: [address] [place], [place] [phone] [place] FOLLOW UP 10/08/2011 Patient Education: Patient Medication Summary Completed 10/08/2011 Appointment: Tracie Keyes WPtel: [address] [place], [place] [phone] FOLLOW UP 09/24/2011 Patient Education: Patient Medication Summary Completed 09/24/2011 Appointment: Tracie Keyes WPtel: [address] [place], [place] [phone] LAB 09/17/2011 Patient Education: Patient Medication Summary [...] fasting labs. 09/09/2011 Appointment: Liz Randall WPtel: [address] [place], [place] [phone] ACUTE ILLNESS 09/09/2011 Patient Education: Patient Medication Summary Completed 09/09/2011 Visit Plan: Change lisinopril hct to 20/ 12.5mg 2 daily and continue cardizem Check fasting lab--drawn today 08/29/2010 Appointment: Tracie Keyes WPtel: [address] [place], [place] [phone] FOLLOW UP 08/29/2010 Patient Education: Patient Medication Summary Completed 08/29/2010 Appointment: Tracie Keyes WPtel: [address] [place], [place] [id number] FOLLOW UP 12/12/2009 Patient Education: Patient Medication Summary Completed 12/12/2009 Appointment: Tracie Keyes WPtel: [address] [place], [place] [phone] FOLLOW UP 11/27/2009 Visit Plan: Finish Abx B12 given Start d aily 1000mcg B12 Cont allopurinol and check B12 and uric acid in 1mo. 10/30/2009 Appointment: Tracie Keyes WPtel: [address] [place] [address] FOLLOW UP 10/30/2009 Patient Education: Patient Medication Summary Completed 10/30/2009 Appointment: Tracie Keyes WPtel: [address] [place], [place] [phone] NEW PATIENT 10/01/2009 Patient Education: Patient Medication Summary Completed 10/01/2009 Referral: Sav Olivo WPtel: [address] [place], [place] [phone] Referral Initiated Instructions Comment . Discussed labs and CT with patient. Krish pang answered. Will send order for PET CT [...]
--- OUTSIDE RECORDS SUMMARY | 2020-11-05 09:34 | XMS REPORT | CCD ---
Author Author Josh Keyes D.O. Organization [facility] Address [address] [place] [address] Phone Care Team Providers Care Garment Alteration Examiner Name Role Phone Tracie Keyes D.O., PP Unavailable CCM Unavailable Summary Purpose Interface Exchange Insurance Providers Payer name Policy type / Coverage type Covered alliance party ID Effective Begin Date Effective End Date WPS MEDICARE PART B [place] Medicare Part B [id number] Unknown [facility] Medicare Part B [id number] 2019 Un known Family history Sister Diagnosis Age At Onset seizure disorder Unknown Father Diagnosis Age At Onset Diabetes mellitus Type 2 Unknown Mother Diagnosis Age At Onset Diabetes mellitus Type 2 Unknown Social History Social History Element Codes Description Effective Dates Tobacco history SNOMED CT: 75028706 Currently smokes tobacco Marital status Unknown 10/01/2009 [...] E906.4 09/09/2011 Active Hypertension Unknown 10/01/2009 Active [place] spotted fever Unknown 07/24/2009 Act [place] B12 DEFIC ANEMIA NEC ICD-9: 281.1 10/01/2009 Active Hyperuricemia ICD-9: 790.6 10/01/2009 Active Myalgia ICD-9: 729.1 10/01/2009 Active [place] spotted fever ICD-9: 082.0 10/01/2009 Act [place] Medications Medication Codes Instructions Start Date Stop Date Status Fill Instructions Eliquis 5 mg tablet RxNorm: 6940720 Take 1 Tablet(s) Oral two ti mes a day 09/19/2020 12/17/2020 Active tramadol 50 mg tablet RxNorm: 252370 Take 1 Tablet(s) O ral Q8H as needed for pain Take with 2 tylenol 09/17/2020 No Stop Date Active Eliquis 5 mg tablet RxNorm: 8211079 Take 2 Tablet(s) Oral two ti mes a day 09/17/2020 No Stop Date Active lisinopril 40 mg tablet RxNorm: 607354 1 Tablet(s) Oral QD repl aces 20mg dose 04/18/2020 10/15/2020 Inactive Men's Multivitamin 400 mcg-20 mcg-300 mcg tablet RxNorm: 1 Tablet(s) Oral QD 04/18/2020 No Stop Date Active lisinopril 20 mg tablet RxNorm: 707520 1 Tablet(s) Oral QD 03/29/19 21 04/17/2020 Inactive Due for his 6 month appointm ent lisinopril 20 mg tablet RxNorm: 537198 TAKE ONE (1) TAB LET BY MOUTH DAILY... Needs fwup 10/03/2019 11/02/2019 Inactive lisinopril 20 mg tablet RxNorm: 560402 TAKE ONE (1) TABLET BY M OUTH DAILY... 10/03/2019 10/02/2019 Inactive Zithromax 500 mg tablet RxNorm: 015944 1 Tablet(s) Oral QD 04/25/19 20 05/02/2019 Inactive [AttnRPh: Saving apply/adjud icate RxGRP:SG20 RxBIN:[id number] RxPCN: ID#:[id number]] lisinopril 20 mg tablet RxNorm: 793852 1 Tablet(s) Oral QD 04/25/19 20 10/02/2019 Inactive nystatin 100,000 unit/mL oral suspension RxNorm: 648663 5 Milliliter(s) Oral four times a day swish, gargle and spit 04/25/2019 05/09/2019 Inactive diltiazem ER (XR/XT) 120 mg capsule,extended release 2 4 hr, controlled RxNorm: 774777 Capsule(s) 1 Capsule(s) PO QD 06/10/2018 10/11/2019 Inactive [SAVINGS FOR UNINSURED PATIENTS -- BIN:571287, PCN: ASPROD1, Group: AME08, ID# [id number], Process claim through [employer], for questions: . THIS IS NOT INSURANCE.] lisinopril 20 mg-hydrochlorothiazide 12.5 mg tablet RxNorm: 557484 1 Tablet(s) PO QAM 06/10/2018 10/11/2019 Inactive [AttnRPh: Saving apply/adjudicate RxGRP:SG20 RxBIN:[id number] RxPCN: ID#:[id number]] lisinopril 20 mg-hydrochlorothiazide 12.5 mg tablet RxNorm: 423285 1 Tablet(s) PO QAM 05/06/2017 01/30/2018 Inactive [AttnRPh: Saving apply/adjudicate RxGRP:SG20 RxBIN:[id number] RxPCN: ID#:[id number]] diltiazem ER (XR/XT) 120 mg capsule,extended release 2 4 hr, controlled RxNorm: 665011 Capsule(s) 1 Capsule(s) PO QD 05/06/2017 01/30/2018 Inactive [SAVINGS FOR UNINSURED PATIENTS -- BIN:340648, PCN: ASPROD1, Group: AME08, ID# [id number], Process claim through MedImpact, for questions: . THIS IS NOT INSURANCE.] diltiazem ER (XR/XT) 120 mg capsule,extended release 2 4 hr, controlled RxNorm: 531875 Capsule(s) 1 Capsule(s) PO QD 09/16/2016 03/14/2017 Inactive [SAVINGS FOR UNINSURED PATIENTS -- BIN:508199, PCN: ASPROD1, Group: AME08, ID# [id number], Process claim through MedImpact, for questions: . THIS IS NOT INSURANCE.] lisinopril 20 mg-hydrochlorothiazide 12.5 mg tablet RxNorm: 311258 1 Tablet(s) PO QAM 09/16/2016 03/14/2017 Inactive [AttnRPh: Saving apply/adjudicate RxGRP:SG20 RxBIN:[id number] RxPCN: ID#:[id number]] diltiazem ER (XR/XT) 120 mg capsule,extended release,control led RxNorm: 772153 1 Capsule(s) PO QD 04/09/2016 10/11/2019 Inactive [SAVINGS FOR UN INSURED PATIENTS -- BIN:094496, PCN: ASPROD1, Group: AME08, ID# [id number], Process claim through MedImpact, for questions: . THIS IS NOT INSURANCE.] diltiazem ER (XR/XT) 120 mg capsule,extended release,control led RxNorm: 935462 1 Capsule(s) PO QD 04/09/2016 09/15/2016 Inactive [SAVINGS FOR UN INSURED PATIENTS -- BIN:255657, PCN: ASPROD1, Group: AME08, ID# [id number], Process claim through MedImpact, for questions: . THIS IS NOT INSURANCE.] lisinopril 20 mg-hydrochlorothiazide 12.5 mg tablet RxNorm: 519038 1 Tablet(s) PO QAM 12/10/2015 06/06/2016 Inactive [AttnRPh: Saving apply/adjudicate RxGRP:SG20 RxBIN:[id number] RxPCN: ID#:[id number]] diltiazem ER (XR/XT) 120 mg capsule,extended release,control led RxNorm: 294884 1 Capsule(s) PO QD 02/07/2015 02/01/2016 Inactive [SAVINGS FOR UN INSURED PATIENTS -- BIN:366467, PCN: ASPROD1, Group: AME08, ID# [id number], Process claim through MedImpact, for questions: . THIS IS NOT INSURANCE.] lisinopril 20 mg-hydrochlorothiazide 12.5 mg tablet RxNorm: 922882 1 Tablet(s) PO QAM 02/07/2015 12/09/2015 Inactive [AttnRPh: Saving apply/adjudicate RxGRP:SG20 RxBIN:[id number] RxPCN: ID#:[id number]] metformin ER 1,000 mg 24 hr tablet,extended release RxNorm: 238280 1 Tablet(s) PO QD 02/07/2015 07/19/2015 Inactive [SAVINGS FOR UNI NSURED PATIENTS -- BIN:096500, PCN: ASPROD1, Group: AME08, ID# [id number], Process claim through [employer], for questions: . THIS IS NOT INSURANCE.] diltiazem ER (XR/XT) 120 mg capsule,extended release,control led RxNorm: 056391 1 Capsule(s) PO QD 12/28/2014 02/06/2015 Inactive [SAVINGS FOR UN INSURED PATIENTS -- BIN:959042, PCN: ASPROD1, Group: AME08, ID# [id number], Process claim through [employer], for questions: . THIS IS NOT INSURANCE.] lisinopril 20 mg-hydrochlorothiazide 12.5 mg tablet RxNorm: 110987 1 Tablet(s) PO QAM 11/20/2014 10/11/2019 Inactive cefdinir 300 mg capsule RxNorm: 713243 2 Capsule(s) PO QD 07/19/2014 07/28/2014 Inactive [SAVINGS FOR NON-COVERED DRUGS -- BIN:00 3585, PCN: ASPROD1, Group: XXXXX, ID# [id number], Questions: . THIS IS NOT INSURANCE.] meclizine 25 mg tablet RxNorm: 768969 1 Tablet(s) PO QHS 07/04/2014 0 10/31/2014 Inactive [SAVINGS FOR NON-COVERED DRUGS -- BIN:00 3585, PCN: ASPROD1, Group: XXXXX, ID# [id number], Questions: . THIS IS NOT INSURANCE.] allopurinol 300 mg tablet RxNorm: 853954 1 Tablet(s) PO QD 06/17/19 15 06/15/2014 Inactive allopurinol 300 mg tablet RxNorm: 204396 1 Tablet(s) PO QD 06/17/19 15 02/06/2015 Inactive [SAVINGS FOR NON-COVERED TATYANA GS -- BIN:985608, PCN: ASPROD1, Group: XXXXX, ID# [id number], Questions: . THIS IS NOT INSURANCE.] naproxen 500 mg tablet RxNorm: 569834 1 Tablet(s) PO BID 06/16/2014 0 07/19/2015 Inactive [SAVINGS FOR NON-COVERED DRUGS -- BIN:00 3585, PCN: ASPROD1, Group: XXXXX, ID# [id number], Questions: . THIS IS NOT INSURANCE.] metformin ER 1,000 mg 24 hr tablet,extended release RxNorm: 212546 1 Tablet(s) PO QD 03/14/2014 02/06/2015 Inactive [SAVINGS FOR UNI NSURED PATIENTS -- BIN:172337, PCN: ASPROD1, Group: AME08, ID# [id number], Process claim through MedImpact, for questions: . THIS IS NOT INSURANCE.] metformin ER 500 mg tablet,extended release 24hr RxNorm: 860 975 1 Tablet(s) PO QD 01/05/2014 03/13/2014 Inactive [SAVINGS FOR UNI NSURED PATIENTS -- BIN:260967, PCN: ASPROD1, Group: AME08, ID# [id number], Process claim through MedImpact, for questions: . THIS IS NOT INSURANCE.] metformin ER 500 mg tablet,extended release 24hr RxNorm: 860 975 1 Tablet(s) PO QD 11/28/2013 01/04/2014 Inactive [SAVINGS FOR UNI NSURED PATIENTS -- BIN:406271, PCN: ASPROD1, Group: AME08, ID# [id number], Process claim through MedImpact, for questions: . THIS IS NOT INSURANCE.] Keflex 500 mg capsule RxNorm: 321525 1 Capsule(s) PO TID 11/09/2013 0 11/15/2013 Inactive [SAVINGS FOR UNINSURED PATIENTS -- BIN:0 47974, PCN: ASPROD1, Group: AME08, ID# [id number], Process claim through MedImpact, for questions: . THIS IS NOT INSURANCE.] diltiazem ER (XR/XT) 120 mg capsule,extended release,control led RxNorm: 750588 1 Capsule(s) PO QD 11/09/2013 11/03/2014 Inactive [SAVINGS FOR UN INSURED PATIENTS -- BIN:388971, PCN: ASPROD1, Group: MONSERRATEIan, ID# [id number], Process claim through MedImpact, for questions: . THIS IS NOT INSURANCE.] lisinopril 20 mg-hydrochlorothiazide 12.5 mg tablet RxNorm: 200886 2 Tablet(s) PO QAM 11/09/2013 11/20/2014 Inactive [AttnRPh: Saving apply/adjudicate RxGRP:SG20 RxBIN:[id number] RxPCN: ID#:[id number]] diltiazem ER (XR/XT) 120 mg capsule,extended release,control led RxNorm: 254621 1 Capsule(s) PO QD -need labs 10/31/2013 11/08/2013 Inactive [DELICIA INGS FOR UNINSURED PATIENTS -- BIN:110939, PCN: ASPROD1, Group: TRAN, ID# [id number], Process claim through MedImpact, for questions: . THIS IS NOT INSURANCE.] lisinopril 20 mg-hydrochlorothiazide 12.5 mg tablet RxNorm: 064625 2 Tablet(s) PO QAM 10/31/2013 11/08/2013 Inactive [AttnRPh: Saving apply/adjudicate RxGRP:SG20 RxBIN:[id number] RxPCN: ID#:[id number]] diltiazem ER (XR/XT) 120 mg capsule,extended release,control led RxNorm: 057814 1 Capsule(s) PO QD -need labs 09/12/2013 10/11/2013 Inactive [DELICIA INGS FOR UNINSURED PATIENTS -- BIN:001302, PCN: ASPROD1, Group: AME08, ID# [id number], Process claim through MedImpact, for questions: . THIS IS NOT INSURANCE.] Omnicef 300 mg capsule RxNorm: 094133 2 Capsule(s) PO QD 11/24/2012 0 11/08/2013 Inactive naproxen 500 mg tablet RxNorm: 469853 1 Tablet(s) PO TID 11/04/2012 0 11/03/2012 Inactive allopurinol 100 mg tablet RxNorm: 062265 1 Tablet(s) PO BID 013 11/08/2013 Inactive naproxen 500 mg tablet RxNorm: 714097 1 Tablet(s) PO TID 11/04/2012 0 11/08/2013 Inactive diltiazem ER (XR/XT) 120 mg capsule,extended release,control led RxNorm: 156028 1 Capsule(s) PO QD 08/02/2012 09/12/2013 Inactive lisinopril 20 mg-hydrochlorothiazide 12.5 mg tablet RxNorm: 266496 2 Tablet(s) PO QAM 08/02/2012 07/27/2013 Inactive acyclovir 800 mg tablet RxNorm: 363755 1 Tablet(s) PO D Take 1 tablet by mouth 5 times daily 02/26/2012 11/02/2012 Inactive acyclovir 800 mg tablet RxNorm: 595851 1 Tablet(s) PO D 02/25/2012 Inactive clindamycin 300 mg capsule RxNorm: 992679 1 Capsule(s) PO TID 02/2403/02/2012 Inactive lisinopril-hydrochlorothiazide 20 mg-12.5 mg tablet RxNorm: 396291 2 Tablet(s) PO QAM 01/30/2012 08/01/2012 Inactive diltiazem ER (XR/XT) 120 mg capsule,extended release,control led RxNorm: 232865 1 Capsule(s) PO QD 01/30/2012 08/01/2012 Inactive lisinopril-hydrochlorothiazide 20 mg-12.5 mg tablet RxNorm: 768567 2 Tablet(s) PO QAM 01/30/2012 10/11/2019 Inactive diltiazem ER (XR/XT) 120 mg capsule,extended release,control led RxNorm: 514198 1 Capsule(s) PO QD 01/30/2012 10/11/2019 Inactive Culturelle 10 billion cell capsule RxNorm: 452995 1 Capsule(s) PO Q D 10/16/2011 02/24/2012 Inactive Omnicef 300 mg capsule RxNorm: 294947 2 Capsule(s) PO QD 09/24/2011 0 11/02/2012 Inactive diltiazem ER (XR/XT) 120 mg capsule,extended release,control led RxNorm: 949083 1 Capsule(s) PO QD 09/09/2011 01/29/2012 Inactive Culturelle 10 billion cell Cap RxNorm: 475360 1 Capsule (s) PO BID take a few hours after Doxycycline. Probiotic 09/09/2011 09/28/2011 Inactive lisinopril-hydrochlorothiazide 20 mg-12.5 mg tablet RxNorm: 864294 2 Tablet(s) PO QAM 09/09/2011 01/29/2012 Inactive doxycycline hyclate 100 mg Tab RxNorm: 7866911 1 Tablet( s) PO BID antibiotic. (may make a little sensitive to sunburn) 09/09/2011 09/18/2011 Inactiv e lisinopril-hydrochlorothiazide 20 mg-12.5 mg Tab RxNorm: 197 886 2 Tablet(s) PO QAM Due for yearly check-up 09/08/2011 09/08/2011 Inactive diltiazem ER (XR/XT) 120 mg Continuous Release Cap RxNorm: 8 47323 1 Capsule(s) PO QD Due for yearly check-up. 09/08/2011 09/08/2011 Inactive diltiazem ER (XR/XT) 120 mg Continuous Release Cap RxNorm: 8 59540 1 Capsule(s) PO QD 08/29/2010 08/23/2011 Inactive lisinopril-hydrochlorothiazide 20 mg-12.5 mg Tab RxNorm: 197 886 2 Tablet(s) PO QAM 08/29/2010 08/23/2011 Inactive lisinopril-hydrochlorothiazide 20 mg-25 mg Tab RxNorm: 408333 1 Tablet(s) PO QD 08/21/2010 08/28/2010 Inactive allopurinol 100 mg tablet RxNorm: 959064 1 Tablet(s) PO QD 04/22/19 11 08/28/2010 Inactive allopurinol 100 mg Tab RxNorm: 549406 1 Tablet(s) PO QD 12/18/2009 Inactive Allopurinol 100 mg Tab RxNorm: 241736 1 Tablet(s) PO QD 12/12/2009 Inactive Allopurinol 100 mg Tab RxNorm: 853096 1 Tablet(s) PO QD 10/30/2009 Inactive Omnicef 300 mg Cap RxNorm: 736848 2 Capsule(s) PO QD 10/01/200910/29 Inactive Allopurinol 100 mg Tab RxNorm: 398625 1 Tablet(s) PO QD 10/01/2009 Inactive Vitamin D3 oral RxNorm: 2418 oral 04/18/2020 Active Vitamin C oral RxNorm: 1151 oral 04/18/2020 Active Vitamin B12 1000mcg Tablet RxNorm: 1 Tablet(s) PO QD 08/29/2010 Inactive lisinopril 20 mg-hydrochlorothiazide 12.5 mg tablet RxNorm: 047155 1 Tablet(s) PO QAM 11/20/2014 11/19/2014 Inactive Medrol (Sid) 4 mg tablets in a dose pack RxNorm: 637008 Tablet(s) PO as directed 11/09/2013 11/08/2013 Inactive Omnicef 300 mg Cap RxNorm: 347388 2 Capsule(s) PO QD 09/24/201112/11 Inactive Fish Oil 1,000 mg Cap RxNorm: 1 Capsule(s) PO QD 11/09/20132013 Inactive diltiazem ER (XR/XT) 120 mg Continuous Release Cap RxNorm: 8 19546 1 Capsule(s) PO QD 08/29/2010 08/28/2010 Inactive Culturelle 10 billion cell capsule RxNorm: 972867 1 Capsule(s) PO Q D 11/03/2012 11/02/2012 Inactive metformin ER 500 mg tablet,extended release 24hr RxNorm: 860 975 1 Tablet(s) PO QD 11/28/2013 11/27/2013 Inactive Lisinopril Oral RxNorm: Oral 10/01/2009 10/01/2009 Inactive Vitamin B12 1000mcg Tablet RxNorm: 1 Tablet(s) PO QD 12/18/2015 Inactive Vitamin B12 1000mcg Tablet RxNorm: 1 Tablet(s) PO QD 11/09/2013 Inactive lisinopril-hydrochlorothiazide 20 mg-25 mg Tab RxNorm: 017412 1 Tablet(s) PO QD 08/21/2010 2010 Inactive metformin ER 1,000 mg 24 hr tablet,extended release RxNorm: 207229 1 Tablet(s) PO QD 03/14/2014 03/13/2014 Inactive Fish Oil 1,000 mg capsule RxNorm: 1 Capsule(s) PO QD 12/18/2015 Inactive Medication Administered No Medication Administered data Immunizations Vaccine Codes Date Status B12 Unknown 09/24/2011 Results Observation Observation Code Item Item Code Result Date S ervice Location GLYCOSYLATED HEMOGLOBIN TEST 50804 Hgb A1c 17897-1 5.7 % 0 04/18/2020 Unknown GFR CALC 1146908 GFR Non Afr Amr >60 mL/min 04/18/2020 Un known GFR CALC 3390956 GFR Afr Amr >60 mL/min 04/18/2020 Unknow n COMPREHENSIVE METABOLIC 60977 AST 35 U/L 2020 Unknown COMPREHENSIVE METABOLIC 81635 ALT 45 U/L 2020 Unknown COMPREHENSIVE METABOLIC 62388 BUN 10 mg/dL 2020 Unknown COMPREHENSIVE METABOLIC 44692 ALBUMIN 4.3 g/dL 2020 Unknown COMPREHENSIVE METABOLIC 05767 CHLORIDE 101 mmol/L 04/18 Unknown COMPREHENSIVE METABOLIC 48089 Bili Total 0.8 mg/dL 04/18 Unknown COMPREHENSIVE METABOLIC 55082 ALK PHOS 73 U/L 2020 Unknown COMPREHENSIVE METABOLIC 22062 SODIUM 137 mmol/L 04/18 Unknown COMPREHENSIVE METABOLIC 10291 CREATININE 0.99 mg/dL 03/27 Unknown COMPREHENSIVE METABOLIC 91760 CALCIUM 9.1 mg/dL 2020 Unknown COMPREHENSIVE METABOLIC 07216 POTASSIUM 4.3 mmol/L 04/18 Unknown COMPREHENSIVE METABOLIC 57160 Total Protein 7.0 g/dL Unknown COMPREHENSIVE METABOLIC 24810 Glucose 133 mg/dL 2020 Unknown COMPREHENSIVE METABOLIC 13283 Bicarbonate 26 mmol/L 03/27 Unknown COMPREHENSIVE METABOLIC 37660 AGAP 10 mmol/L 2020 Unknown MEAN GLUC 6748318 Calc Mean Gluc 117 mg/dL 04/18/2020 Unkn own LIPID [facility] 33796 Cholesterol 187 mg/dL 04/18/2020 Unkno wn [facility] 52519 Triglyceride 87 mg/dL 04/18/2020 Unkn own [facility] 57044 HDL CHOLESTEROL 59 mg/dL 04/18/2020 U nknown L[facility] GROUP 11101 Chol/HDL Ratio 3.17 ratio 04/18/2020 U nknown LIPID GROUP 46479 NON-HDL Chol 128 mg/dL 04/18/2020 Unkn own [facility] 65595 LDL Cholesterol 111 mg/dL 04/18/2020 U nknown HEPATITIS C ANTIBODY 51662 Hepatitis C Ab Non-Reactive 02/01/2018 Unknown GLYCOSYLATED HEMOGLOBIN TEST 04222 Hgb A1c 18913-9 6.2 % 1 04/01/2017 Unknown GFR CALC 1471773 GFR Non Afr Amr >60 mL/min 01/29/2018 Un known GFR CALC 6737528 GFR Afr Amr >60 mL/min 01/29/2018 Unknow n COMPREHENSIVE METABOLIC 44000 AST 17 U/L 2017 Unknown COMPREHENSIVE METABOLIC 44416 ALT 17 U/L 2017 Unknown COMPREHENSIVE METABOLIC 87233 BUN 12 mg/dL 2017 Unknown COMPREHENSIVE METABOLIC 97042 ALBUMIN 4.6 g/dL 2017 Unknown COMPREHENSIVE METABOLIC 22424 CHLORIDE 101 mmol/L 01/29 Unknown COMPREHENSIVE METABOLIC 75089 Bili Total 0.9 mg/dL 01/29 Unknown COMPREHENSIVE METABOLIC 28009 ALK PHOS 57 U/L 2017 Unknown COMPREHENSIVE METABOLIC 26972 SODIUM 136 mmol/L 01/29 Unknown COMPREHENSIVE METABOLIC 29863 CREATININE 1.00 mg/dL 08/2017 Unknown COMPREHENSIVE METABOLIC 59778 CALCIUM 9.6 mg/dL 2017 Unknown COMPREHENSIVE METABOLIC 07369 POTASSIUM 4.2 mmol/L 01/29 Unknown COMPREHENSIVE METABOLIC 88638 Total Protein 6.9 g/dL Unknown COMPREHENSIVE METABOLIC 02889 Glucose 128 mg/dL 2017 Unknown COMPREHENSIVE METABOLIC 94715 Bicarbonate 27 mmol/L 08/2017 Unknown COMPREHENSIVE METABOLIC 98051 AGAP 8 mmol/L 2017 Unknown LIPID GROUP 87990 Cholesterol 168 mg/dL 01/29/2018 Unkno wn LIPID GROUP 96619 Triglyceride 82 mg/dL 01/29/2018 Unkn own LIPID GROUP 16169 HDL CHOLESTEROL 43 mg/dL 01/29/2018 U nknown LIPID GROUP 03295 Chol/HDL Ratio 3.91 ratio 01/29/2018 U nknown LIPID GROUP 98710 NON-HDL Chol 125 mg/dL 01/29/2018 Unkn own LIPID GROUP 76224 LDL Cholesterol 109 mg/dL 01/29/2018 U nknown MEAN GLUC 7137023 Calc Mean Gluc 131 mg/dL 01/29/2018 Unkn own LIPID GROUP 29546 Cholesterol 164 mg/dL 05/01/2017 Unkno wn LIPID GROUP 18248 Triglyceride 131 mg/dL 05/01/2017 Unkn own LIPID GROUP 82652 HDL CHOLESTEROL 45 mg/dL 05/01/2017 U nknown LIPID GROUP 49623 Chol/HDL Ratio 3.64 ratio 05/01/2017 U nknown LIPID GROUP 62039 NON-HDL Chol 119 mg/dL 05/01/2017 Unkn own LIPID GROUP 56257 LDL Cholesterol 93 mg/dL 05/01/2017 U nknown COMPLETE BLOOD COUNT 8894670 WBC 4.9 10e9/L 05/02/19 18 Unknown COMPLETE BLOOD COUNT 3068934 RBC 4.31 10e12/L 2017 Unknown COMPLETE BLOOD COUNT 1120285 HEMOGLOBIN 14.3 g/dL 05/02/19 18 Unknown COMPLETE BLOOD COUNT 9604992 HEMATOCRIT 42.8 % 05/02/19 18 Unknown COMPLETE BLOOD COUNT 7728397 MCV 99.3 fL 8 Unknown COMPLETE BLOOD COUNT 9345930 MCH 33.2 pg 8 Unknown COMPLETE BLOOD COUNT 2745794 MCHC 33.4 g/dL 8 Unknown COMPLETE BLOOD COUNT 8700527 PLATELET COUNT 241 10e9/L 10/2017 Unknown COMPLETE BLOOD COUNT 7528518 Mean Plt Volume 11.0 fL 10/2017 Unknown COMPLETE BLOOD COUNT 8282504 Neut Auto 56.6 % 8 Unknown COMPLETE BLOOD COUNT 0860337 Lymph Auto 24.7 % 05/02/19 18 Unknown COMPLETE BLOOD COUNT 0320162 [place] Auto 11.6 % 8 Unknown COMPLETE BLOOD COUNT 4722551 RDW 13.2 % 8 Unknown COMPLETE BLOOD COUNT 6947189 Eos Auto 6.9 % 8 Unknown COMPLETE BLOOD COUNT 8603532 Baso Auto 0.2 % 8 Unknown COMPLETE BLOOD COUNT 3635188 Neutrophil Abs 2.77 10e9/L Unknown COMPLETE BLOOD COUNT 0357544 Lymphocyte Abs 1.21 10e9/L Unknown COMPLETE BLOOD COUNT 0242902 Monocyte Abs 0.57 10e9/L 10/2017 Unknown COMPLETE BLOOD COUNT 7575723 Eosinophil Abs 0.34 10e9/L Unknown COMPLETE BLOOD COUNT 7680556 RDW-SD 47.2 fL 8 Unknown COMPLETE BLOOD COUNT 1297105 Basophil Abs 0.01 10e9/L 10/2017 Unknown GLYCOSYLATED HEMOGLOBIN TEST 61797 Hgb A1c 81956-4 6.0 % 0 05/01/2017 Unknown GFR CALC 0270594 GFR Non Afr Amr >60 mL/min 05/01/2017 Un known GFR CALC 6091251 GFR Afr Amr >60 mL/min 05/01/2017 Unknow n MEAN GLUC 7203610 Calc Mean Gluc 126 mg/dL 05/01/2017 Unkn own COMPREHENSIVE METABOLIC 13153 AST 17 U/L 2017 Unknown COMPREHENSIVE METABOLIC 03067 ALT 16 U/L 2017 Unknown COMPREHENSIVE METABOLIC 73308 BUN 13 mg/dL 2017 Unknown COMPREHENSIVE METABOLIC 76499 ALBUMIN 3.9 g/dL 2017 Unknown COMPREHENSIVE METABOLIC 13946 CHLORIDE 104 mmol/L 05/01 Unknown COMPREHENSIVE METABOLIC 86975 Bili Total 0.7 mg/dL 05/01 Unknown COMPREHENSIVE METABOLIC 36501 ALK PHOS 58 U/L 2017 Unknown COMPREHENSIVE METABOLIC 76888 SODIUM 139 mmol/L 05/01 Unknown COMPREHENSIVE METABOLIC 40178 CREATININE 0.99 mg/dL 10/2017 Unknown COMPREHENSIVE METABOLIC 59649 CALCIUM 9.5 mg/dL 2017 Unknown COMPREHENSIVE METABOLIC 02468 POTASSIUM 4.3 mmol/L 05/01 Unknown COMPREHENSIVE METABOLIC 39277 Total Protein 6.7 g/dL Unknown COMPREHENSIVE METABOLIC 79634 Glucose 110 mg/dL 2017 Unknown COMPREHENSIVE METABOLIC 00428 Bicarbonate 27 mmol/L 10/2017 Unknown COMPREHENSIVE METABOLIC 04914 AGAP 8 mmol/L 2017 Unknown PSA EQUIMOLAR NITHIN 80901 PSA Total 1.10 ng/mL 8 Unknown THYROID STIMULATING HORMONE 85993 TSH 0.673 uIU/mL 05/01/2017 Unknown GLYCOSYLATED HEMOGLOBIN TEST 08179 Hgb A1c 88104-7 5.8 % 1 03/08/2015 Unknown MEAN GLUC 6918947 Calc Mean Gluc 120 mg/dL 01/07/2016 Unkn own FREE T4 24241 T4 Free 1.13 ng/dL 01/04/2016 Unknown THYROID STIMULATING HORMONE 94737 TSH 0.875 uIU/mL 01/04/2016 Unknown COMPREHENSIVE METABOLIC 18583 AST 20 U/L 2015 Unknown COMPREHENSIVE METABOLIC 31115 ALT 20 U/L 2015 Unknown COMPREHENSIVE METABOLIC 57813 BUN 14 mg/dL 2015 Unknown COMPREHENSIVE METABOLIC 44334 ALBUMIN 4.4 g/dL 2015 Unknown COMPREHENSIVE METABOLIC 09056 CHLORIDE 103 mmol/L 01/03 Unknown COMPREHENSIVE METABOLIC 87245 Bili Total 0.5 mg/dL 01/03 Unknown COMPREHENSIVE METABOLIC 12215 ALK PHOS 53 U/L 2015 Unknown COMPREHENSIVE METABOLIC 70204 SODIUM 137 mmol/L 01/03 Unknown COMPREHENSIVE METABOLIC 17839 CREATININE 0.98 mg/dL 12/24 Unknown COMPREHENSIVE METABOLIC 48888 CALCIUM 9.6 mg/dL 2015 Unknown COMPREHENSIVE METABOLIC 92023 POTASSIUM 4.5 mmol/L 01/03 Unknown COMPREHENSIVE METABOLIC 70736 Total Protein 7.0 g/dL Unknown COMPREHENSIVE METABOLIC 77155 Glucose 117 mg/dL 2015 Unknown COMPREHENSIVE METABOLIC 25235 Bicarbonate 26 mmol/L 12/24 Unknown COMPREHENSIVE METABOLIC 39379 AGAP 8 mmol/L 2015 Unknown COMPLETE BLOOD COUNT 3432063 WBC 6.2 10e9/L 01/04/20 16 Unknown COMPLETE BLOOD COUNT 2540961 RBC 4.55 10e12/L 2015 Unknown COMPLETE BLOOD COUNT 1302160 HEMOGLOBIN 15.0 g/dL 01/04/20 16 Unknown COMPLETE BLOOD COUNT 7971100 HEMATOCRIT 43.8 % 01/04/20 16 Unknown COMPLETE BLOOD COUNT 1278304 MCV 96.3 fL 6 Unknown COMPLETE BLOOD COUNT 6574781 MCH 33.0 pg 6 Unknown COMPLETE BLOOD COUNT 6268391 MCHC 34.2 g/dL 6 Unknown COMPLETE BLOOD COUNT 7125133 PLATELET COUNT 259 10e9/L 12/2015 Unknown COMPLETE BLOOD COUNT 5310134 Mean Plt Volume 10.8 fL 12/2015 Unknown COMPLETE BLOOD COUNT 0087030 Neut Auto 62.4 % 6 Unknown COMPLETE BLOOD COUNT 5647844 Lymph Auto 25.9 % 01/04/20 16 Unknown COMPLETE BLOOD COUNT 5882363 [place] Auto 6.8 % 6 Unknown COMPLETE BLOOD COUNT 4212640 RDW 13.4 % 6 Unknown COMPLETE BLOOD COUNT [id number] Eos Auto 4.9 % 6 Unknown COMPLETE BLOOD COUNT [id number] Baso Auto 0.0 % 6 Unknown COMPLETE BLOOD COUNT [id number] Neutrophil Abs 3.87 10e9/L Unknown COMPLETE BLOOD COUNT [id number] Lymphocyte Abs 1.61 10e9/L Unknown COMPLETE BLOOD COUNT [id number] Monocyte Abs 0.42 10e9/L 12/24 Unknown COMPLETE BLOOD COUNT [id number] Eosinophil Abs 0.30 10e9/L Unknown COMPLETE BLOOD COUNT [id number] RDW-SD 46.2 fL 6 Unknown COMPLETE BLOOD COUNT [id number] Basophil Abs 0.00 10e9/L 12/24 Unknown PSA EQUIMOLAR NITHIN 49016 PSA Total 1.14 ng/mL 6 Unknown GFR CALC [id number] GFR Non Afr Amr >60 mL/min 01/04/2016 Un known GFR CALC [id number] GFR Afr Amr >60 mL/min 01/04/2016 Unknow n L[facility] 62965 Cholesterol 172 mg/dL 01/04/2016 Unkno wn LIP[facility] GROUP 24037 Triglyceride 156 mg/dL 01/04/2016 Unkn own L[facility] GROUP 54350 HDL CHOLESTEROL 42 mg/dL 01/04/2016 U nknown L[facility] GROUP 27146 Chol/HDL Ratio 4.10 ratio 01/04/2016 U nknown LIPID GROUP 68619 NON-HDL Chol 130 mg/dL 01/04/2016 Unkn own LIP[facility] GROUP 57285 LDL Cholesterol 99 mg/dL 01/04/2016 U nknown GLYCOSYLATED HEMOGLOBIN TEST 54962 A1C HPLC 44450-7 5.8 % 1 04/10/2014 Unknown COMPLETE BLOOD COUNT [id number] WBC 6.0 10e9/L 02/03/20 15 Unknown COMPLETE BLOOD COUNT [id number] RBC 4.39 10e12/L 2014 Unknown COMPLETE BLOOD COUNT [id number] HGB 14.3 g/dL 5 Unknown COMPLETE BLOOD COUNT [id number] HCT DET 41.7 % 5 Unknown COMPLETE BLOOD COUNT [id number] MCV 95.0 fL 5 Unknown COMPLETE BLOOD COUNT [id number] MCH 32.6 pg 5 Unknown COMPLETE BLOOD COUNT [id number] MCHC 34.3 g/dL 5 Unknown COMPLETE BLOOD COUNT [id number] PLT 272 10e9/L 02/03/20 15 Unknown COMPLETE BLOOD COUNT [id number] MPV 11.1 fL 5 Unknown COMPLETE BLOOD COUNT [id number] GARY % 62.7 % 5 Unknown COMPLETE BLOOD COUNT [id number] LY % 25.2 % 5 Unknown COMPLETE BLOOD COUNT [id number] MON % 7.9 % 5 Unknown COMPLETE BLOOD COUNT [id number] EOS % 4.0 % 5 Unknown COMPLETE BLOOD COUNT [id number] BASO % 0.2 % 5 Unknown COMPLETE BLOOD COUNT 1332794 RDW 13.2 % 5 Unknown COMPLETE BLOOD COUNT [id number] ABS GARY 3.76 10e9/L 015 Unknown COMPLETE BLOOD COUNT [id number] ABS LYMPH 1.51 10e9/L 015 Unknown COMPLETE BLOOD COUNT [id number] ABS MONO 0.47 10e9/L 015 Unknown COMPLETE BLOOD COUNT [id number] ABS EOS 0.24 10e9/L 015 Unknown COMPLETE BLOOD COUNT 1637758 ABS BASO 0.01 10e9/L 015 Unknown COMPLETE BLOOD COUNT 9177176 RDW-SD 44.7 fL 5 Unknown GFR CALC 6902140 GFR AA >60 ML/MIN 02/02/2015 Unknown GFR CALC 0047874 GFR NON-AA >60 ML/MIN 02/02/2015 Unknown THYROID STIMULATING HORMONE 33458 TSH 0.970 uIU/ML 02/02/2015 Unknown LIPID GROUP 93749 HDL TEST 41 MG/DL 02/02/2015 Unknown LIPID GROUP 20661 TRIG 151 MG/DL 02/02/2015 Unknown LIPID GROUP 08767 TEST LDL 122 MG/DL 02/02/2015 Unknown LIPID GROUP 55829 CHOL 193 MG/DL 02/02/2015 Unknown LIPID GROUP 32032 RCHOL/HDL 4.71 RATIO 02/02/2015 Unknow n LIPID GROUP 50153 NON-HDL CH 152 MG/DL 02/02/2015 Unknow n PSA EQUIMOLAR NITHIN 51992 PSA EQ 0.76 NG/ML 5 Unknown FREE T4 85405 FREE T4 0.93 NG/DL 02/02/2015 Unknown COMPREHENSIVE METABOLIC 79921 AST 21 U/L 2014 Unknown COMPREHENSIVE METABOLIC 47389 ALT 21 IU/L 2014 Unknown COMPREHENSIVE METABOLIC 28878 BUN 15 MG/DL 2014 Unknown COMPREHENSIVE METABOLIC 54086 ALBUMIN 4.5 GM/DL 2014 Unknown COMPREHENSIVE METABOLIC 14763 CHLORIDE 104 MMOL/L 02/02 Unknown COMPREHENSIVE METABOLIC 92845 BILI TOT 1.0 MG/DL 2014 Unknown COMPREHENSIVE METABOLIC 06089 ALK PHOS 71 U/L 2014 Unknown COMPREHENSIVE METABOLIC 47064 SODIUM 136 MMOL/L 02/02 Unknown COMPREHENSIVE METABOLIC 68943 CREATININE 0.94 MG/DL 01/23 Unknown COMPREHENSIVE METABOLIC 02436 CALCIUM 9.8 MG/DL 2014 Unknown COMPREHENSIVE METABOLIC 07781 POTASSIUM 4.3 MMOL/L 02/02 Unknown COMPREHENSIVE METABOLIC 22242 PROT TOT 6.9 GM/DL 2014 Unknown COMPREHENSIVE METABOLIC 11835 Glucose 113 MG/DL 2014 Unknown COMPREHENSIVE METABOLIC 34841 BICARB 26 MMOL/L 2014 Unknown COMPREHENSIVE METABOLIC 54389 ANION GAP 6 MEQ/L 2014 Unknown ANTI STREPTOLYSIN O TITER(ASO) 55295 ASO 57 IU/ML 06/19/2014 Unknown RA FACTOR 89968 RA FACTOR <20.0 IU/ML 06/15/2014 Unknown FREE T4 70800 FREE T4 1.19 NG/DL 06/15/2014 Unknown ANTINUCLEAR ANTIBODY SCREEN 88799 SHANNON SCR <1:80 Unknown ERYTHROCYTE SEDIMENTATION RATE 94480 ESR 2 MM/HR 06/14/2014 Unknown COMPLETE BLOOD COUNT [id number] WBC 6.7 10e9/L 06/15/19 15 Unknown COMPLETE BLOOD COUNT [id number] RBC 4.86 10e12/L 2014 Unknown COMPLETE BLOOD COUNT 1769746 HGB 15.9 g/dL 5 Unknown COMPLETE BLOOD COUNT 1838166 HCT DET 45.0 % 5 Unknown COMPLETE BLOOD COUNT 9278171 MCV 92.6 fL 5 Unknown COMPLETE BLOOD COUNT 7430176 MCH 32.7 pg 5 Unknown COMPLETE BLOOD COUNT 0548200 MCHC 35.3 g/dL 5 Unknown COMPLETE BLOOD COUNT 0189655 PLT 299 10e9/L 06/15/19 15 Unknown COMPLETE BLOOD COUNT 8621044 MPV 10.0 fL 5 Unknown COMPLETE BLOOD COUNT 8163166 GARY % 63.8 % 5 Unknown COMPLETE BLOOD COUNT [id number] LY % 18.3 % 5 Unknown COMPLETE BLOOD COUNT 8459888 MON % 12.1 % 5 Unknown COMPLETE BLOOD COUNT [id number] EOS % 5.7 % 5 Unknown COMPLETE BLOOD COUNT [id number] BASO % 0.1 % 5 Unknown COMPLETE BLOOD COUNT 8743219 RDW 13.3 % 5 Unknown COMPLETE BLOOD COUNT 6958146 ABS GARY 4.27 10e9/L 015 Unknown COMPLETE BLOOD COUNT 0243719 ABS LYMPH 1.23 10e9/L 015 Unknown COMPLETE BLOOD COUNT [id number] ABS MONO 0.81 10e9/L 015 Unknown COMPLETE BLOOD COUNT [id number] ABS EOS 0.38 10e9/L 015 Unknown COMPLETE BLOOD COUNT 7291956 ABS BASO 0.01 10e9/L 015 Unknown COMPLETE BLOOD COUNT [id number] RDW-SD 44.3 fL 5 Unknown URIC ACID 61781 URIC ACID 7.6 MG/DL 06/14/[place] [address] SYP AB NR 06/14/2014 Unknown THYROID STIMULATING HORMONE 96927 TSH 0.825 uIU/ML 06/14/2014 Unknown GLYCOSYLATED HEMOGLOBIN TEST 18454 A1C HPLC 49058-2 6.0 % 0 06/14/2014 Unknown VITAMIN B 12 FOLIC ACID 34706|90336 VIT B 12 751 PG/ML 05/25 Unknown VITAMIN B 12 FOLIC ACID 28016|30229 FOLIC ACID 23.5 NG/ML Unknown GFR CALC 7501983 GFR AA >60 ML/MIN 06/14/2014 Unknown GFR CALC 0375574 GFR NON-AA >60 ML/MIN 06/14/2014 Unknown C-REACTIVE PROTEIN (CRP) QUANT 60337 CRP 0.1 MG/DL 06/14/2014 Unknown COMPREHENSIVE METABOLIC 70050 AST 19 U/L 2014 Unknown COMPREHENSIVE METABOLIC 32007 ALT 16 IU/L 2014 Unknown COMPREHENSIVE METABOLIC 46739 BUN 13 MG/DL 2014 Unknown COMPREHENSIVE METABOLIC 13130 ALBUMIN 5.1 GM/DL 2014 Unknown COMPREHENSIVE METABOLIC 93239 CHLORIDE 92 MMOL/L 2014 Unknown COMPREHENSIVE METABOLIC 62554 BILI TOT 0.6 MG/DL 2014 Unknown COMPREHENSIVE METABOLIC 20094 ALK PHOS 61 U/L 2014 Unknown COMPREHENSIVE METABOLIC 79021 SODIUM 128 MMOL/L 06/14 Unknown COMPREHENSIVE METABOLIC 81727 CREATININE 1.00 MG/DL 05/25 Unknown COMPREHENSIVE METABOLIC 34851 CALCIUM 10.7 MG/DL 06/14 Unknown COMPREHENSIVE METABOLIC 60702 POTASSIUM 4.1 MMOL/L 06/14 Unknown COMPREHENSIVE METABOLIC 78635 PROT TOT 7.6 GM/DL 2014 Unknown COMPREHENSIVE METABOLIC 53451 Glucose 106 MG/DL 2014 Unknown COMPREHENSIVE METABOLIC 90941 BICARB 29 MMOL/L 2014 Unknown COMPREHENSIVE METABOLIC 06173 ANION GAP 7 MEQ/L 2014 Unknown COMPREHENSIVE METABOLIC 78962 AST 21 U/L 2014 Unknown COMPREHENSIVE METABOLIC 35394 ALT 26 IU/L 2014 Unknown COMPREHENSIVE METABOLIC 64315 BUN 16 MG/DL 2014 Unknown COMPREHENSIVE METABOLIC 35289 ALBUMIN 4.6 GM/DL 2014 Unknown COMPREHENSIVE METABOLIC 63818 CHLORIDE 99 MMOL/L 2014 Unknown COMPREHENSIVE METABOLIC 77107 BILI TOT 0.5 MG/DL 2014 Unknown COMPREHENSIVE METABOLIC 59656 ALK PHOS 57 U/L 2014 Unknown COMPREHENSIVE METABOLIC 70011 SODIUM 134 MMOL/L 03/09 Unknown COMPREHENSIVE METABOLIC 93561 CREATININE 0.91 MG/DL 02/23 Unknown COMPREHENSIVE METABOLIC 83557 CALCIUM 9.9 MG/DL 2014 Unknown COMPREHENSIVE METABOLIC 22142 POTASSIUM 4.3 MMOL/L 03/09 Unknown COMPREHENSIVE METABOLIC 78801 PROT TOT 7.0 GM/DL 2014 Unknown COMPREHENSIVE METABOLIC 59342 Glucose 91 MG/DL 2014 Unknown COMPREHENSIVE METABOLIC 47050 BICARB 30 MMOL/L 2014 Unknown COMPREHENSIVE METABOLIC 01607 ANION GAP 5 MEQ/L 2014 Unknown GLYCOSYLATED HEMOGLOBIN TEST 19796 A1C HPLC 62413-0 6.4 % 0 03/09/2014 Unknown GFR CALC 0787249 GFR AA >60 ML/MIN 03/09/2014 Unknown GFR CALC 5033886 GFR NON-AA >60 ML/MIN 03/09/2014 Unknown GLYCOSYLATED HEMOGLOBIN TEST 61734 A1C HPLC 31422-1 6.0 % 0 11/22/2013 Unknown THYROID STIMULATING HORMONE 54761 TSH 0.643 uIU/ML 11/18/2013 Unknown PSA EQUIMOLAR NITHIN 61555 PSA EQ 0.75 NG/ML 4 Unknown COMPREHENSIVE METABOLIC 40750 AST 21 U/L 2013 Unknown COMPREHENSIVE METABOLIC 31652 ALT 22 IU/L 2013 Unknown COMPREHENSIVE METABOLIC 71818 BUN 16 MG/DL 2013 Unknown COMPREHENSIVE METABOLIC 39900 ALBUMIN 4.6 GM/DL 2013 Unknown COMPREHENSIVE METABOLIC 04447 CHLORIDE 97 MMOL/L 2013 Unknown COMPREHENSIVE METABOLIC 73865 BILI TOT 0.8 MG/DL 2013 Unknown COMPREHENSIVE METABOLIC 15531 ALK PHOS 68 U/L 2013 Unknown COMPREHENSIVE METABOLIC 62416 SODIUM 132 MMOL/L 11/18 Unknown COMPREHENSIVE METABOLIC 87818 CREATININE 0.95 MG/DL 10/25 Unknown COMPREHENSIVE METABOLIC 28914 CALCIUM 10.1 MG/DL 11/18 Unknown COMPREHENSIVE METABOLIC 39530 POTASSIUM 4.2 MMOL/L 11/18 Unknown COMPREHENSIVE METABOLIC 43907 PROT TOT 7.2 GM/DL 2013 Unknown COMPREHENSIVE METABOLIC 88817 Glucose 125 MG/DL 2013 Unknown COMPREHENSIVE METABOLIC 86462 BICARB 26 MMOL/L 2013 Unknown COMPREHENSIVE METABOLIC 45794 ANION GAP 9 MEQ/L 2013 Unknown COMPLETE BLOOD COUNT 1738077 WBC 7.3 10e9/L 11/19/19 14 Unknown COMPLETE BLOOD COUNT 6382222 RBC 4.68 10e12/L 2013 Unknown COMPLETE BLOOD COUNT 9884037 HGB 15.4 g/dL 4 Unknown COMPLETE BLOOD COUNT 0269670 HCT DET 43.4 % 4 Unknown COMPLETE BLOOD COUNT 9632643 MCV 92.7 fL 4 Unknown COMPLETE BLOOD COUNT 3144028 MCH 32.9 pg 4 Unknown COMPLETE BLOOD COUNT 5683586 MCHC 35.5 g/dL 4 Unknown COMPLETE BLOOD COUNT 8652819 PLT 286 10e9/L 11/19/19 14 Unknown COMPLETE BLOOD COUNT 3021648 MPV 10.8 fL 4 Unknown COMPLETE BLOOD COUNT 0583710 GARY % 61.6 % 4 Unknown COMPLETE BLOOD COUNT 5310379 LY % 25.6 % 4 Unknown COMPLETE BLOOD COUNT 8185277 MON % 8.7 % 4 Unknown COMPLETE BLOOD COUNT 9581799 EOS % 4.0 % 4 Unknown COMPLETE BLOOD COUNT 6698215 BASO % 0.1 % 4 Unknown COMPLETE BLOOD COUNT 6429316 RDW 12.9 % 4 Unknown COMPLETE BLOOD COUNT 4638811 ABS GARY 4.50 10e9/L 014 Unknown COMPLETE BLOOD COUNT 9655047 ABS LYMPH 1.87 10e9/L 014 Unknown COMPLETE BLOOD COUNT 1061923 ABS MONO 0.64 10e9/L 014 Unknown COMPLETE BLOOD COUNT 3375090 ABS EOS 0.29 10e9/L 014 Unknown COMPLETE BLOOD COUNT 1929770 ABS BASO 0.01 10e9/L 014 Unknown COMPLETE BLOOD COUNT 5498217 RDW-SD 42.9 fL 4 Unknown LIPID GROUP 85619 HDL TEST 52 MG/DL 11/18/2013 Unknown LIPID GROUP 17898 TRIG 100 MG/DL 11/18/2013 Unknown LIPID GROUP 51742 TEST LDL 110 MG/DL 11/18/2013 Unknown LIPID GROUP 09219 CHOL 182 MG/DL 11/18/2013 Unknown LIPID GROUP 54150 RCHOL/HDL 3.50 RATIO 11/18/2013 Unknow n LIPID GROUP 39601 NON-HDL CH 130 MG/DL 11/18/2013 Unknow n FREE T4 54049 FREE T4 1.28 NG/DL 11/18/2013 Unknown GFR CALC 0499754 GFR AA >60 ML/MIN 11/18/2013 Unknown GFR CALC 9213839 GFR NON-AA >60 ML/MIN 11/18/2013 Unknown COMPREHENSIVE METABOLIC 46347 AST 21 U/L 2012 Unknown COMPREHENSIVE METABOLIC 86627 ALT 20 IU/L 2012 Unknown COMPREHENSIVE METABOLIC 28893 BUN 12 MG/DL 2012 Unknown COMPREHENSIVE METABOLIC 30864 ALBUMIN 4.6 GM/DL 2012 Unknown COMPREHENSIVE METABOLIC 94218 CHLORIDE 105 MMOL/L 11/03 Unknown COMPREHENSIVE METABOLIC 13628 BILI TOT 0.5 MG/DL 2012 Unknown COMPREHENSIVE METABOLIC 90718 ALK PHOS 53 U/L 2012 Unknown COMPREHENSIVE METABOLIC 59235 SODIUM 138 MMOL/L 11/03 Unknown COMPREHENSIVE METABOLIC 74013 CREATININE 0.93 MG/DL 10/24 Unknown COMPREHENSIVE METABOLIC 59350 CALCIUM 9.7 MG/DL 2012 Unknown COMPREHENSIVE METABOLIC 15586 POTASSIUM 4.3 MMOL/L 11/03 Unknown COMPREHENSIVE METABOLIC 78312 PROT TOT 7.0 GM/DL 2012 Unknown COMPREHENSIVE METABOLIC 67071 Glucose 117 MG/DL 2012 Unknown COMPREHENSIVE METABOLIC 17578 BICARB 25 MMOL/L 2012 Unknown COMPREHENSIVE METABOLIC 17089 ANION GAP 8 MEQ/L 2012 Unknown GFR CALC 0241822 GFR AA >60 ML/MIN 11/03/2012 Unknown GFR CALC 9242167 GFR NON-AA >60 ML/MIN 11/03/2012 Unknown THYROID STIMULATING HORMONE 68932 TSH 1.218 uIU/ML 11/03/2012 Unknown URIC ACID 29606 URIC ACID 7.6 MG/DL 11/03/2012 Unknown COMPLETE BLOOD COUNT 0065213 WBC 5.0 10e9/L 11/04/19 13 Unknown COMPLETE BLOOD COUNT 0276634 RBC 4.70 10e12/L 2012 Unknown COMPLETE BLOOD COUNT 9650245 HGB 15.6 g/dL 3 Unknown COMPLETE BLOOD COUNT 4838707 HCT DET 44.2 % 3 Unknown COMPLETE BLOOD COUNT 6364009 MCV 94.0 fL 3 Unknown COMPLETE BLOOD COUNT 3394694 MCH 33.2 pg 3 Unknown COMPLETE BLOOD COUNT 9018874 MCHC 35.3 g/dL 3 Unknown COMPLETE BLOOD COUNT 9951682 PLT 248 10e9/L 11/04/19 13 Unknown COMPLETE BLOOD COUNT 7250631 MPV 10.9 fL 3 Unknown COMPLETE BLOOD COUNT 5410548 GARY % 58.3 % 3 Unknown COMPLETE BLOOD COUNT 8358554 LY % 27.9 % 3 Unknown COMPLETE BLOOD COUNT 3363161 MON % 7.0 % 3 Unknown COMPLETE BLOOD COUNT 8749108 EOS % 6.6 % 3 Unknown COMPLETE BLOOD COUNT 9659506 BASO % 0.2 % 3 Unknown COMPLETE BLOOD COUNT 0229264 RDW 13.2 % 3 Unknown COMPLETE BLOOD COUNT 5952575 ABS GARY 2.92 10e9/L 013 Unknown COMPLETE BLOOD COUNT [id number] ABS LYMPH 1.40 10e9/L 013 Unknown COMPLETE BLOOD COUNT 8705228 ABS MONO 0.35 10e9/L 013 Unknown COMPLETE BLOOD COUNT 3329657 ABS EOS 0.33 10e9/L 013 Unknown COMPLETE BLOOD COUNT 1367385 ABS BASO 0.01 10e9/L 013 Unknown COMPLETE BLOOD COUNT 3064184 RDW-SD 44.1 fL 3 Unknown HERPE1/2MG 63102|87272|85307 HSV G1 EIA 1.78 INDEX 3 Unknown HERPE1/2MG 73478|74618|77210 HSVM1/2EIA 0.15 02/26/2012 Unknown HERPE1/2MG 61674|48516|06878 HSV G2 EIA 10.14 INDEX 02/25/19 13 Unknown COMPLETE BLOOD COUNT 5347400 WBC 9.4 10e9/L 02/24/19 13 Unknown COMPLETE BLOOD COUNT 9459491 RBC 4.54 10e12/L 2012 Unknown COMPLETE BLOOD COUNT 0345010 HGB 14.9 g/dL 3 Unknown COMPLETE BLOOD COUNT 7797145 HCT DET 43.0 % 3 Unknown COMPLETE BLOOD COUNT 0907629 MCV 94.7 fL 3 Unknown COMPLETE BLOOD COUNT 0455124 MCH 32.8 pg 3 Unknown COMPLETE BLOOD COUNT 1791679 MCHC 34.7 g/dL 3 Unknown COMPLETE BLOOD COUNT 7371624 PLT 251 10e9/L 02/24/19 13 Unknown COMPLETE BLOOD COUNT 2707011 MPV 11.1 fL 3 Unknown COMPLETE BLOOD COUNT 1990500 GARY % 75.0 % 3 Unknown COMPLETE BLOOD COUNT 7357277 LY % 15.7 % 3 Unknown COMPLETE BLOOD COUNT 3875526 MON % 6.8 % 3 Unknown COMPLETE BLOOD COUNT 9416478 EOS % 2.3 % 3 Unknown COMPLETE BLOOD COUNT 1859426 BASO % 0.2 % 3 Unknown COMPLETE BLOOD COUNT 3130880 RDW 13.2 % 3 Unknown COMPLETE BLOOD COUNT 0324263 ABS GARY 7.05 10e9/L 013 Unknown COMPLETE BLOOD COUNT 6821442 ABS LYMPH 1.48 10e9/L 013 Unknown COMPLETE BLOOD COUNT 8902749 ABS MONO 0.64 10e9/L 013 Unknown COMPLETE BLOOD COUNT 8537118 ABS EOS 0.22 10e9/L 013 Unknown COMPLETE BLOOD COUNT [id number] ABS BASO 0.02 10e9/L 013 Unknown COMPLETE BLOOD COUNT 0735181 RDW-SD 44.3 fL 3 Unknown COMPREHENSIVE METABOLIC 06630 AST 21 U/L 2012 Unknown COMPREHENSIVE METABOLIC 27919 ALT 22 IU/L 2012 Unknown COMPREHENSIVE METABOLIC 32796 BUN 12 MG/DL 2012 Unknown COMPREHENSIVE METABOLIC 55597 ALBUMIN 4.9 GM/DL 2012 Unknown COMPREHENSIVE METABOLIC 90733 CHLORIDE 102 MMOL/L 02/24 Unknown COMPREHENSIVE METABOLIC 79641 BILI TOT 0.6 MG/DL 2012 Unknown COMPREHENSIVE METABOLIC 47984 ALK PHOS 59 U/L 2012 Unknown COMPREHENSIVE METABOLIC 28967 SODIUM 137 MMOL/L 02/24 Unknown COMPREHENSIVE METABOLIC 51232 CREATININE 0.92 MG/DL 03/2012 Unknown COMPREHENSIVE METABOLIC 29723 CALCIUM 9.7 MG/DL 2012 Unknown COMPREHENSIVE METABOLIC 97834 POTASSIUM 4.1 MMOL/L 02/24 Unknown COMPREHENSIVE METABOLIC 93949 PROT TOT 6.9 GM/DL 2012 Unknown COMPREHENSIVE METABOLIC 16760 Glucose 127 MG/DL 2012 Unknown COMPREHENSIVE METABOLIC 15813 BICARB 25 MMOL/L 2012 Unknown COMPREHENSIVE METABOLIC 33342 ANION GAP 10 MEQ/L 2012 Unknown GFR CALC 2683365 GFR AA >60 ML/MIN 02/25/2012 Unknown GFR CALC 0651892 GFR NON-AA >60 ML/MIN 02/25/2012 Unknown TULAREM AB 2042135 TULAREM AB <1:20 09/23/2011 Unknown [place] FEVER 01627A7 IGG RMSF <1:16 0 09/19/2011 Unknown [place] FEVER 09219F1 IGM RMSF <1:10 0 09/19/2011 Unknown E CHAFF AB 1289793 IGG E CHFF <1:16 09/19/2011 Unknown E CHAFF AB 9661260 IGM E CHFF <1:10 09/19/2011 Unknown GLYCOSYLATED HEMOGLOBIN TEST 34200 A1C HPLC 10836-8 5.4 % 0 09/18/2011 Unknown GFR CALC 4330068 GFR AA >60 ML/MIN 09/17/2011 Unknown GFR CALC 3550442 GFR NON-AA >60 ML/MIN 09/17/2011 Unknown VITAMIN B 12 FOLIC ACID 90185|05346 VIT B 12 405 PG/ML 08/24 Unknown VITAMIN B 12 FOLIC ACID 62614|51488 FOLIC ACID 17.5 NG/ML Unknown COMPREHENSIVE METABOLIC 65483 AST 19 U/L 2011 Unknown COMPREHENSIVE METABOLIC 07913 ALT 19 IU/L 2011 Unknown COMPREHENSIVE METABOLIC 52777 BUN 12 MG/DL 2011 Unknown COMPREHENSIVE METABOLIC 86098 ALBUMIN 4.9 GM/DL 2011 Unknown COMPREHENSIVE METABOLIC 79332 CHLORIDE 98 MMOL/L 2011 Unknown COMPREHENSIVE METABOLIC 90435 BILI TOT 1.2 MG/DL 2011 Unknown COMPREHENSIVE METABOLIC 08916 ALK PHOS 60 U/L 2011 Unknown COMPREHENSIVE METABOLIC 64939 SODIUM 133 MMOL/L 09/16 Unknown COMPREHENSIVE METABOLIC 27812 CREATININE 1.12 MG/DL 08/24 Unknown COMPREHENSIVE METABOLIC 22330 CALCIUM 10.1 MG/DL 09/16 Unknown COMPREHENSIVE METABOLIC 83696 POTASSIUM 4.1 MMOL/L 09/16 Unknown COMPREHENSIVE METABOLIC 72970 PROT TOT 7.6 GM/DL 2011 Unknown COMPREHENSIVE METABOLIC 01592 Glucose 121 MG/DL 2011 Unknown COMPREHENSIVE METABOLIC 36371 BICARB 25 MMOL/L 2011 Unknown COMPREHENSIVE METABOLIC 34968 ANION GAP 10 MEQ/L 2011 Unknown COMPLETE BLOOD COUNT 21551 WBC 5.8 10e9/L 09/17/19 12 Unknown COMPLETE BLOOD COUNT 45150 RBC 5.01 10e12/L 2011 Unknown COMPLETE BLOOD COUNT 11615 HGB 16.4 g/dL 2 Unknown COMPLETE BLOOD COUNT 09099 HCT DET 46.7 % 2 Unknown COMPLETE BLOOD COUNT 57599 MCV 93.2 fL 2 Unknown COMPLETE BLOOD COUNT 06254 MCH 32.7 pg 2 Unknown COMPLETE BLOOD COUNT 78010 MCHC 35.1 g/dL 2 Unknown COMPLETE BLOOD COUNT 84838 PLT 275 10e9/L 09/17/19 12 Unknown COMPLETE BLOOD COUNT 68048 MPV 10.8 fL 2 Unknown COMPLETE BLOOD COUNT 98669 GARY % 47.1 % 2 Unknown COMPLETE BLOOD COUNT 24440 LY % 37.2 % 2 Unknown COMPLETE BLOOD COUNT 30377 MON % 9.5 % 2 Unknown COMPLETE BLOOD COUNT 91561 EOS % 5.9 % 2 Unknown COMPLETE BLOOD COUNT 32132 BASO % 0.3 % 2 Unknown COMPLETE BLOOD COUNT 79256 RDW 13.0 % 2 Unknown COMPLETE BLOOD COUNT 27606 ABS GARY 2.73 10e9/L 012 Unknown COMPLETE BLOOD COUNT 06577 ABS LYMPH 2.16 10e9/L 012 Unknown COMPLETE BLOOD COUNT 08124 ABS MONO 0.55 10e9/L 012 Unknown COMPLETE BLOOD COUNT 60347 ABS EOS 0.34 10e9/L 012 Unknown COMPLETE BLOOD COUNT 72077 ABS BASO 0.02 10e9/L 012 Unknown COMPLETE BLOOD COUNT 48793 RDW-SD 43.1 fL 2 Unknown LIPID GROUP 58143 HDL TEST 39 MG/DL 09/17/2011 Unknown LIPID GROUP 92724 TRIG 195 MG/DL 09/17/2011 Unknown LIPID GROUP 35506 TEST LDL 98 MG/DL 09/17/2011 Unknown LIPID GROUP 64055 CHOL 176 MG/DL 09/17/2011 Unknown LIPID GROUP 85463 RCHOL/HDL 4.51 RATIO 09/17/2011 Unknow n THYROID STIMULATING HORMONE 53411 TSH 2.892 uIU/ML 08/29/2010 Unknown COMPLETE BLOOD COUNT 37378 WBC 6.5 10e9/L 08/30/19 11 Unknown COMPLETE BLOOD COUNT 18979 RBC 4.83 10e12/L 2010 Unknown COMPLETE BLOOD COUNT 07846 HGB 15.9 g/dL 1 Unknown COMPLETE BLOOD COUNT 71703 HCT DET 44.4 % 1 Unknown COMPLETE BLOOD COUNT 87754 MCV 91.9 fL 1 Unknown COMPLETE BLOOD COUNT 99739 MCH 32.9 pg 1 Unknown COMPLETE BLOOD COUNT 68459 MCHC 35.8 g/dL 1 Unknown COMPLETE BLOOD COUNT 14973 PLT 273 10e9/L 08/30/19 11 Unknown COMPLETE BLOOD COUNT 02774 MPV 10.1 fL 1 Unknown COMPLETE BLOOD COUNT 59305 GARY % 45.3 % 1 Unknown COMPLETE BLOOD COUNT 69217 LY % 39.3 % 1 Unknown COMPLETE BLOOD COUNT 07288 MON % 9.8 % 1 Unknown COMPLETE BLOOD COUNT 61696 EOS % 5.4 % 1 Unknown COMPLETE BLOOD COUNT 73218 BASO % 0.2 % 1 Unknown COMPLETE BLOOD COUNT 51755 RDW 13.2 % 1 Unknown COMPLETE BLOOD COUNT 34142 ABS GARY 2.94 10e9/L 011 Unknown COMPLETE BLOOD COUNT 01250 ABS LYMPH 2.55 10e9/L 011 Unknown COMPLETE BLOOD COUNT 62809 ABS MONO 0.64 10e9/L 011 Unknown COMPLETE BLOOD COUNT 21434 ABS EOS 0.35 10e9/L 011 Unknown COMPLETE BLOOD COUNT 85213 ABS BASO 0.01 10e9/L 011 Unknown COMPLETE BLOOD COUNT 23867 RDW-SD 43.5 fL 1 Unknown FREE T4 18451 FREE T4 1.39 NG/DL 08/29/2010 Unknown LIPID GROUP 50824 HDL TEST 52 MG/DL 08/29/2010 Unknown LIPID GROUP 22959 TRIG 110 MG/DL 08/29/2010 Unknown LIPID GROUP 86261 TEST LDL 109 MG/DL 08/29/2010 Unknown LIPID GROUP 65633 CHOL 183 MG/DL 08/29/2010 Unknown LIPID GROUP 42595 RCHOL/HDL 3.52 RATIO 08/29/2010 Unknow n PSA EQUIMOLAR NITHIN 13848 PSA EQ 1.14 NG/ML 1 Unknown GFR CALC 8264154 GFR AA >60 ML/MIN 08/29/2010 Unknown GFR CALC 1221533 GFR NON-AA >60 ML/MIN 08/29/2010 Unknown COMPREHENSIVE METABOLIC 01113 AST 23 U/L 2010 Unknown COMPREHENSIVE METABOLIC 86275 ALT 19 IU/L 2010 Unknown COMPREHENSIVE METABOLIC 28955 BUN 12 MG/DL 2010 Unknown COMPREHENSIVE METABOLIC 15513 ALBUMIN 4.9 GM/DL 2010 Unknown COMPREHENSIVE METABOLIC 48749 CHLORIDE 95 MMOL/L 2010 Unknown COMPREHENSIVE METABOLIC 90786 BILI TOT 0.4 MG/DL 2010 Unknown COMPREHENSIVE METABOLIC 07986 ALK PHOS 59 U/L 2010 Unknown COMPREHENSIVE METABOLIC 26018 SODIUM 132 MMOL/L 08/29 Unknown COMPREHENSIVE METABOLIC 64230 CREATININE 0.96 MG/DL 08/2010 Unknown COMPREHENSIVE METABOLIC 00533 CALCIUM 10.6 MG/DL 08/29 Unknown COMPREHENSIVE METABOLIC 17289 POTASSIUM 4.0 MMOL/L 08/29 Unknown COMPREHENSIVE METABOLIC 98954 PROT TOT 8.0 GM/DL 2010 Unknown COMPREHENSIVE METABOLIC 43279 Glucose 105 MG/DL 2010 Unknown COMPREHENSIVE METABOLIC 85517 BICARB 22 MMOL/L 2010 Unknown COMPREHENSIVE METABOLIC 95313 ANION GAP 15 MEQ/L 2010 Unknown URIC ACID 06956 URIC ACID 6.7 MG/DL 12/12/2009 Unknown Procedures Procedure Codes Date ROUTINE VENIPUNCTURE CPT-4: 06356 04/18/2020 COMPREHEN METABOLIC PANEL CPT-4: 06089 04/18/2020 LIPID PANEL CPT-4: 78401 04/18/2020 A1C HPLC CPT-4: 71734 04/18/2020 PPPS, subseq visit CPT-4: G0439 10/12/2019 ROUTINE VENIPUNCTURE CPT-4: 16657 01/29/2018 COMPREHEN METABOLIC PANEL CPT-4: 11788 01/29/2018 LIPID PANEL CPT-4: 29134 01/29/2018 A1C HPLC CPT-4: 81166 01/29/2018 HEPATITIS C AB TEST CPT-4: 12676 01/29/2018 ROUTINE VENIPUNCTURE CPT-4: 14093 05/01/2017 ASSAY THYROID STIM HORMONE CPT-4: 40882 05/01/2017 COMPREHEN METABOLIC PANEL CPT-4: 68914 05/01/2017 COMPLETE CBC W/AUTO DIFF WBC CPT-4: 08495 05/01/2017 LIPID PANEL CPT-4: 84486 05/01/2017 A1C HPLC CPT-4: 99336 05/01/2017 ASSAY OF PSA TOTAL CPT-4: 99323 05/01/2017 ROUTINE VENIPUNCTURE CPT-4: 64002 01/04/2016 ASSAY OF FREE THYROXINE CPT-4: 56428 01/04/2016 ASSAY THYROID STIM HORMONE CPT-4: 58964 01/04/2016 COMPREHEN METABOLIC PANEL CPT-4: 87580 01/04/2016 COMPLETE CBC W/AUTO DIFF WBC CPT-4: 06552 01/04/2016 LIPID PANEL CPT-4: 24588 01/04/2016 ASSAY OF PSA TOTAL CPT-4: 29770 01/04/2016 A1C HPLC CPT-4: 89058 01/04/2016 ROUTINE VENIPUNCTURE CPT-4: 81073 02/02/2015 ASSAY OF FREE THYROXINE CPT-4: 41848 02/02/2015 ASSAY THYROID STIM HORMONE CPT-4: 80754 02/02/2015 COMPREHEN METABOLIC PANEL CPT-4: 84982 02/02/2015 COMPLETE CBC W/AUTO DIFF WBC CPT-4: 48815 02/02/2015 LIPID PANEL CPT-4: 08332 02/02/2015 ASSAY OF PSA TOTAL CPT-4: 11904 02/02/2015 A1C HPLC CPT-4: 04409 02/02/2015 THER/PROPH/DIAG INJ SC/IM CPT-4: 89782 07/19/2014 METHYLPREDNISOLONE 40 MG INJ CPT-4: J1030 07/19/2014 TRIAMCINOLONE ACET INJ NOS CPT-4: J3301 07/19/2014 ROUTINE VENIPUNCTURE CPT-4: 68433 06/14/2014 ASSAY OF FREE THYROXINE CPT-4: 08645 06/14/2014 ASSAY THYROID STIM HORMONE CPT-4: 77027 06/14/2014 COMPREHEN METABOLIC PANEL CPT-4: 46237 06/14/2014 COMPLETE CBC W/AUTO DIFF WBC CPT-4: 17872 06/14/2014 A1C HPLC CPT-4: 27060 06/14/2014 VITAMIN B 12 FOLIC ACID CPT-4: 90231|47266 06/14/2014 RBC SED RATE AUTOMATED CPT-4: 10613 06/14/2014 RHEUMATOID FACTOR QUANT CPT-4: 55782 06/14/2014 ANTINUCLEAR ANTIBODIES CPT-4: 85739 06/14/2014 ANTISTREPTOLYSIN O TITER CPT-4: 26677 06/14/2014 ASSAY OF BLOOD/URIC ACID CPT-4: 40716 06/14/2014 C-REACTIVE PROTEIN CPT-4: 29106 06/14/2014 ROUTINE VENIPUNCTURE CPT-4: 22953 03/09/2014 COMPREHEN METABOLIC PANEL CPT-4: 00316 03/09/2014 A1C HPLC CPT-4: 76386 03/09/2014 ROUTINE VENIPUNCTURE CPT-4: 14999 11/18/2013 ASSAY OF FREE THYROXINE CPT-4: 20092 11/18/2013 ASSAY THYROID STIM HORMONE CPT-4: 70562 11/18/2013 COMPREHEN METABOLIC PANEL CPT-4: 89454 11/18/2013 COMPLETE CBC W/AUTO DIFF WBC CPT-4: 95283 11/18/2013 LIPID PANEL CPT-4: 11561 11/18/2013 ASSAY OF PSA TOTAL CPT-4: 18029 11/18/2013 A1C HPLC CPT-4: 20877 11/18/2013 REMOVE FOREIGN BODY CPT-4: 34017 11/09/2013 OCCULT BLOOD FECES CPT-4: 10423 11/09/2013 THER/PROPH/DIAG INJ SC/IM CPT-4: 07793 11/24/2012 VITAMIN B12 INJECTION CPT-4: J3420 11/24/2012 COMPREHEN METABOLIC PANEL CPT-4: 09987 11/03/2012 COMPLETE CBC W/AUTO DIFF WBC CPT-4: 39660 11/03/2012 ASSAY THYROID STIM HORMONE CPT-4: 45636 11/03/2012 ASSAY OF BLOOD/URIC ACID CPT-4: 51080 11/03/2012 ROUTINE VENIPUNCTURE CPT-4: 98711 11/03/2012 ROUTINE VENIPUNCTURE CPT-4: 47318 02/25/2012 COMPREHEN METABOLIC PANEL CPT-4: 90537 02/25/2012 COMPLETE CBC W/AUTO DIFF WBC CPT-4: 47672 02/25/2012 HERPE1/2MG CPT-4: 37593|77192|30659 02/25/2012 THER/PROPH/DIAG INJ SC/IM CPT-4: 43655 09/24/2011 VITAMIN B12 INJECTION CPT-4: J3420 09/24/2011 CEFTRIAXONE SODIUM INJECTION CPT-4: J0696 09/24/2011 THER/PROPH/DIAG INJ SC/IM CPT-4: 84907 09/24/2011 ROUTINE VENIPUNCTURE CPT-4: 78608 09/17/2011 COMPREHEN METABOLIC PANEL CPT-4: 46465 09/17/2011 COMPLETE CBC W/AUTO DIFF WBC CPT-4: 96295 09/17/2011 LIPID PANEL CPT-4: 40502 09/17/2011 VITAMIN B 12 FOLIC ACID CPT-4: 02475|26473 09/17/2011 A1C GLYCOSYLATED HEMOGLOBIN TEST CPT-4: 08681 012 ROUTINE VENIPUNCTURE CPT-4: 67003 08/29/2010 COMPLETE CBC W/AUTO DIFF WBC CPT-4: 55507 08/29/2010 COMPREHEN METABOLIC PANEL CPT-4: 00025 08/29/2010 LIPID PANEL CPT-4: 09605 08/29/2010 ASSAY THYROID STIM HORMONE CPT-4: 46379 08/29/2010 ASSAY OF FREE THYROXINE CPT-4: 80458 08/29/2010 ASSAY OF PSA TOTAL CPT-4: 39654 08/29/2010 THER/PROPH/DIAG INJ SC/IM CPT-4: 71083 12/12/2009 VITAMIN B12 INJECTION CPT-4: J3420 12/12/2009 ROUTINE VENIPUNCTURE CPT-4: 63196 12/12/2009 ASSAY OF BLOOD/URIC ACID CPT-4: 87430 12/12/2009 THER/PROPH/DIAG INJ SC/IM CPT-4: 79988 10/30/2009 VITAMIN B12 INJECTION CPT-4: J3420 10/30/2009 THER/PROPH/DIAG INJ SC/IM CPT-4: 25352 10/01/2009 VITAMIN B12 INJECTION CPT-4: J3420 10/01/2009 THER/PROPH/DIAG INJ SC/IM CPT-4: 61323 10/01/2009 CEFTRIAXONE SODIUM INJECTION CPT-4: J0696 10/01/2009 Vital Signs Date Vital 10/22/2020 Blood Pressure 1: 140/76 Code: 8480-6 Heart Rate 1: 71 bpm Respiratory Rate: 17 bpm SpO2: 98% Temperature: 36.3 (C) / 97.3 (F) We ight: 149 lbs Code: 28600-4 10/19/2020 Blood Pressure 1: 121/87 Code: 8480-6 Heart Rate 1: 100 bpm Respiratory Rate: 16 bpm SpO2: 96% Temperature: 36.3 (C) / 97.3 (F) We ight: 149 lbs Code: 39165-2 10/01/2020 Blood Pressure 1: 140/84 Code: 8480-6 Heart Rate 1: 100 bpm Respiratory Rate: 18 bpm SpO2: 96% Temperature: 36.6 (C) / 97.9 (F) We ight: 147 lbs Code: 49095-0 09/24/2020 Blood Pressure 1: 112/70 Code: 8480-6 [...] 98.1 (F) We ight: 152 lbs Code: 83740-6 09/12/2020 Blood Pressure 1: 133/70 Code: 8480-6 Heart Rate 1: 100 bpm Respiratory Rate: 16 bpm SpO2: 100% Temperature: 36.5 (C) / 97.7 (F) We ight: 152 lbs Code: 04052-4 04/18/2020 Blood Pressure 1: 144/78 Code: 8480-6 Heart Rate 1: 80 bpm Respiratory Rate: 16 bpm SpO2: 98% Temperature: 36.4 (C) / 97.5 (F) We ight: 160 lbs Code: 06937-0 10/12/2019 Blood Pressure 1: 124/78 Code: 8480-6 BMI: 24.8 Code: 85680-6 Heart Rate 1: 76 bpm Height: 5'8" Code: 8302-2 Respiratory Rate: 20 bpm SpO2: 98% Temperature: 36.6 (C) / 97.9 (F) Weight: 163 lbs Code: 57519-2 04/25/2019 Blood Pressure 1: 140/86 Code: 8480-6 BMI: 24.3 Code: 11470-5 Heart Rate 1: 92 bpm Height: 5'8" Code: 8302-2 Respiratory Rate: 20 bpm SpO2: 98% Temperature: 36.8 (C) / 98.3 (F) Weight: 160 lbs Code: 42597-1 04/12/2019 Blood Pressure 1: 146/86 Code: 8480-6 BMI: 25.4 Code: 74835-8 Heart Rate 1: 88 bpm Height: 5'8" Code: 8302-2 Respiratory Rate: 20 bpm SpO2: 98% Temperature: 36.5 (C) / 97.7 (F) Weight: 167 lbs Code: 12772-3 02/17/2018 Blood Pressure 1: 114/62 Code: 8480-6 Bl ood Pressure 2: 116/70 Code: 8480-6 BMI: 24.9 Code: 10726-4 Heart Rate 1: 76 bpm Height: 5'8" Code: 8302-2 Respiratory Rate: 20 bpm SpO2: 97% Temperature: 36.7 (C) / 98.0 (F) We ight: 164 lbs Code: 87683-9 04/07/2017 Blood Pressure 1: 122/84 Code: 8480-6 BMI: 24.3 Code: 70092-3 Heart Rate 1: 72 bpm Height: 5'8" Code: 8302-2 Respiratory Rate: 20 bpm SpO2: 96% Temperature: 36.9 (C) / 98.4 (F) Weight: 160 lbs Code: 03731-6 09/19/2016 Blood Pressure 1: 124/76 Code: 8480-6 BMI: 24.6 Code: 00389-1 Heart Rate 1: 68 bpm Height: 5'8" Code: 8302-2 Respiratory Rate: 20 bpm SpO2: 96% Temperature: 36.6 (C) / 97.9 (F) Weight: 162 lbs Code: 55594-3 12/18/2015 Blood Pressure 1: 136/70 Code: 8480-6 BMI: 24.3 Code: 02403-0 Heart Rate 1: 84 bpm Height: 5'8" Code: 8302-2 Respiratory Rate: 20 bpm Temperatu re: 36.5 (C) / 97.7 (F) Weight: 160 lbs Code: 44888-3 07/20/2015 Blood Pressure 1: 140/84 Code: 8480-6 BMI: 24.9 Code: 49665-2 Heart Rate 1: 76 bpm Height: 5'8" Code: 8302-2 Respiratory Rate: 20 bpm Temperatu re: 36.6 (C) / 97.9 (F) Weight: 164 lbs Code: 08431-6 02/07/2015 Blood Pressure 1: 164/82 Code: 8480-6 BMI: 25.5 Code: 98792-3 Heart Rate 1: 78 bpm Height: 5'8" Code: 8302-2 Respiratory Rate: 20 bpm Temperatu re: 36.5 (C) / 97.7 (F) Weight: 168 lbs Code: 98808-3 07/19/2014 Blood Pressure 1: 136/94 Code: 8480-6 BMI: 24.8 Code: 82018-0 Heart Rate 1: 88 bpm Height: 5'8" Code: 8302-2 Respiratory Rate: 20 bpm Temperatu re: 36.8 (C) / 98.2 (F) Weight: 163 lbs Code: 29276-7 07/06/2014 Blood Pressure 1: 136/92 Code: 8480-6 BMI: 24.2 Code: 37365-3 Heart Rate 1: 88 bpm Height: 5'8" Code: 8302-2 Respiratory Rate: 20 bpm Temperatu re: 36.9 (C) / 98.4 (F) Weight: 159 lbs Code: 87184-1 07/04/2014 Blood Pressure 1: 116/84 Code: 8480-6 Bl ood Pressure 2: 108/82 Code: 8480-6 Heart Rate 1: 88 bpm Respiratory Rate: 20 bpm Temperature: 3 6.7 (C) / 98.0 (F) Weight: 159 lbs Code: 62220-7 06/14/2014 Blood Pressure 1: 132/90 Code: 8480-6 BMI: 24.6 Code: 36691-5 Heart Rate 1: 100 bpm Height: 5'8" Code: 8302-2 Respiratory Rate: 20 bpm Temperatu re: 37.2 (C) / 99.0 (F) Weight: 162 lbs Code: 98424-0 03/09/2014 Blood Pressure 1: 122/62 Code: 8480-6 BMI: 25.4 Code: 88584-2 Heart Rate 1: 84 bpm Height: 5'8" Code: 8302-2 Respiratory Rate: 20 bpm Temperatu re: 36.6 (C) / 97.8 (F) Weight: 167 lbs Code: 34268-7 01/05/2014 Blood Pressure 1: 124/82 Code: 8480-6 BMI: 25.4 Code: 34055-0 Heart Rate 1: 84 bpm Height: 5'8" Code: 8302-2 Respiratory Rate: 20 bpm Temperatu re: 36.7 (C) / 98.0 (F) Weight: 167 lbs Code: 14967-6 11/09/2013 Blood Pressure 1: 138/82 Code: 8480-6 BMI: 24.5 Code: 77152-8 Heart Rate 1: 84 bpm Height: 5'8" Code: 8302-2 Respiratory Rate: 20 bpm Temperatu re: 37.1 (C) / 98.8 (F) Weight: 161 lbs Code: 27971-2 11/24/2012 Blood Pressure 1: 122/72 Code: 8480-6 BMI: 24.0 Code: 59265-5 Heart Rate 1: 66 bpm Height: 5'8" Code: 8302-2 Respiratory Rate: 20 bpm Temperatu re: 36.5 (C) / 97.7 (F) Weight: 158 lbs Code: 92246-8 11/03/2012 Blood Pressure 1: 130/84 Code: 8480-6 BMI: 23.7 Code: 41418-1 Heart Rate 1: 72 bpm Height: 5'8" Code: 8302-2 Respiratory Rate: 20 bpm Temperatu re: 36.2 (C) / 97.1 (F) Weight: 156 lbs Code: 82806-7 02/25/2012 Blood Pressure 1: 142/84 Code: 8480-6 BMI: 25.1 Code: 01326-6 Heart Rate 1: 68 bpm Height: 5'8" Code: 8302-2 Temperature: 37.2 (C) / 99.0 (F) Weight: 165 lbs Code: 67828-2 10/08/2011 Blood Pressure 1: 126/80 Code: 8480-6 BMI: 24.3 Code: 66247-6 Heart Rate 1: 84 bpm Height: 5'8" Code: 8302-2 Respiratory Rate: 20 bpm Temperatu re: 36.8 (C) / 98.2 (F) Weight: 160 lbs Code: 86853-8 09/24/2011 Blood Pressure 1: 136/80 Code: 8480-6 BMI: 24.3 Code: 74327-5 Heart Rate 1: 84 bpm Height: 5'8" Code: 8302-2 Respiratory Rate: 20 bpm Temperatu re: 36.8 (C) / 98.2 (F) Weight: 160 lbs Code: 53556-3 09/17/2011 Blood Pressure 1: 128/84 Cod e: 8480-6 09/09/2011 Blood Pressure 1: 142/84 Code: 8480-6 BMI: 24.3 Code: 52010-8 Height: 5'8" Code: 8302-2 Temperature: 36.7 (C) / 98.0 (F) Weight: 160 lbs Code : 50141-2 08/29/2010 Blood Pressure 1: 144/84 Code: 8480-6 Heart Rate 1: 72 bpm Temperature: 36.8 (C) / 98.2 (F) Weight: 156 lbs Code: 57793-7 12/12/2009 Blood Pressure 1: 146/88 Code: 8480-6 Heart Rate 1: 76 bpm Temperature: 36.6 (C) / 97.9 (F) Weight: 152 lbs Code: 16742-2 10/30/2009 Blood Pressure 1: 132/70 Code: 8480-6 Heart Rate 1: 80 bpm Temperature: 36.9 (C) / 98.4 (F) Weight: 151 lbs Code: 91004-0 10/01/2009 Blood Pressure 1: 142/86 Code: 8480-6 BMI: 23.0 Code: 36366-5 Heart Rate 1: 84 bpm Height: 5'8" Code: 8302-2 Temperature: 36.9 (C) / 98.4 (F) Weight: 151 lbs Code: 63239-3 Functional Status No Functional Status data Reason [...] follow up 04/12/2019 from [facility] well man exam [...] 10/01/2009 establishing vis it, being treated for [place] Spotted Fever Encounters Encounter Performer Location Codes Date ([id number]) OFFICE/OUTPATIENT VISIT EST Diagnosis: Mass of left lung[ICD10: R91.8] Diagnosis: Supraclavicular adenopathy[ICD10: R59.0] Diagnosis: On anticoagulant therapy[ICD10: Z79.01] Diagnosis: Other acute pulmonary embolism without acute cor pulmonale[ICD10: I26.99] Diagnosis: Lymphadenopathy[ICD10: R59.1] Diagnosis: Thrombocytopenia[ICD10: D69.6] Diagnosis: Pericardial effusion[ICD10: I31.3] Estephanie KEYES [facility] CPT-4: 61634 10/22/2020 ([id number]) OFFICE/OUTPATIENT VISIT EST Diagnosis: Supraclavicular adenopathy[ICD10: R59.0] Diagnosis: Difficulty swallowing[ICD10: R13.10] [facility]: 29447 10/19/2020 ([id number]) OFFICE/OUTPATIENT VISIT EST Diagnosis: On anticoagulant therapy[ICD10: Z79.01] Diagnosis: Acute deep vein thrombosis (DVT) of femoral vein of right lower extremity[ICD10: I82.411] Estephanie KEYES [facility] CPT-4 : 77550 10/01/2020 ([id number]) OFFICE/OUTPATIENT VISIT EST Diagnosis: Right leg DVT[ICD10: I82.401] Tracie Keyes TRACIE [facility] CPT-[facility]: 69422 09/24/2020 ([id number]) OFFICE/OUTPATIENT VISIT EST Diagnosis: Acute deep vein thrombosis (DVT) of femoral vein of right lower extremity[ICD10: I82.411] Diagnosis: On anticoagulant therapy[ICD10: Z79.01] Estephanie CARPENTERKAMALJIT Lee KEYES [facility] CPT-4: 08450 09/17/2020 ([id number]) OFFICE/OUTPATIENT VISIT EST Diagnosis: Acute deep vein thrombosis (DVT) of femoral vein of right lower extremity[ICD10: I82.411] Estephanie KEYES [facility] CPT-4 : 33819 09/14/2020 ([id number]) OFFICE/OUTPATIENT VISIT EST Diagnosis: Fall down stairs, initial encounter[ICD10: W10.8XXA] Diagnosis: Right leg swelling[ICD10: M79.89] Diagnosis: Right leg pain[ICD10: M79.604] Estephanie Mcguirewillam TRACIE Elvin [facility]YES [facility] CPT-4: 72169 09/12/2020 ([id number]) OFFICE/OUTPATIENT VISIT EST Diagnosis: Hypertension[ICD10: I10] Diagnosis: Hyperglycemia, unspecified[ICD10: R73.9] Diagnosis: Mixed hyperlipidemia[ICD10: E78.2] Tracie KEYES [employer] CPT-4: 76886 04/18/2020 ([id number]) OFFICE/OUTPATIENT VISIT EST 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] Diagnosis: Cat scratch[ICD10: W55.03XA] Diagnosis: Hypertension[ICD10: I10] Diagnosis: Pulmonary nodules[ICD10: R91.8] Tracie KEYES [employer] CPT-4: 68704 04/25/2019 ([id number]) OFFICE/OUTPATIENT VISIT EST 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] Diagnosis: Dysphagia[ICD10: R13.10] Tracie CHANG [employer] CPT-4: 76289 04/12/2019 ([id number]) PER PM REEVAL EST PAT 65+ YR Diagnosis: Encounter for general adult medical examination without abnormal findings[ICD10: Z00.00] Diagnosis: Essential (primary) hypertension[ICD10: I10] Diagnosis: Hyperglycemia, unspecified[ICD10: R73.9] Tracie KEYES [employer] CPT-4: 73683 02/17/2018 ([id number]) NURSE/OUTPATIENT VISIT EST Diagnosis: Essential (primary) hypertension[ICD10: I10] Diagnosis: Mixed hyperlipidemia[ICD10: E78.2] Diagnosis: Hyperglycemia, unspecified[ICD10: R73.9] Diagnosis: Encounter for screening for other viral diseases[ICD10: Z11.59] Tracie KEYES [employer] CPT-4: 13552 01/29/2018 ([id number]) OFFICE/OUTPATIENT VISIT EST Diagnosis: Encounter for general adult medical examination without abnormal findings[ICD10: Z00.00] Diagnosis: Mixed hyperlipidemia[ICD10: E78.2] Diagnosis: Essential (primary) hypertension[ICD10: I10] Diagnosis: Impaired fasting glucose[ICD10: R73.01] Diagnosis: Encounter for screening for malignant neoplasm of prostate[ICD10: Z12.5] Tracie KEYES DO [facility] CPT-4: 53948 05/01/2017 ([id number]) OFFICE/OUTPATIENT VISIT EST Diagnosis: URI, ACUTE[ICD10: J06.9] Tracie DURANLINE Lee ZHOU [facility] CPT-4: 56671 04/07/2017 OFFICE/OUTPATIENT VISIT EST Diagnosis: Essential (primary) hypertension[ICD10: I10] Ashley Den TRACIE KEYES DO [facility] CPT-4: 12534 09/19/2016 ([id number]) OFFICE/OUTPATIENT VISIT EST Diagnosis: Encounter for general adult medical examination without abnormal findings[ICD10: Z00.00] Diagnosis: Essential (primary) hypertension[ICD10: I10] Diagnosis: Impaired fasting glucose[ICD10: R73.01] Tracie Nikhilkaren JEISON KEYES DO [facility] CPT-4: 73101 01/04/2016 ([id number]) OFFICE/OUTPATIENT VISIT EST Diagnosis: Essential (primary) hypertension[ICD10: I10] Diagnosis: Mixed hyperlipidemia[ICD10: E78.2] Diagnosis: Impaired fasting glucose[ICD10: R73.01] Tracie Tejedarhiannanorman KEYES DO [facility] CPT-4: 31951 12/18/2015 ([id number]) PREV VISIT EST AGE 40-64 Diagnosis: Encounter for general adult medical examination without abnormal findings[ICD10: Z00.00] Diagnosis: Essential (primary) hypertension[ICD10: I10] Ashleydarron Crenshaw TRACIE Lee KEYES [facility] CPT-4: 73688 07/20/2015 OFFICE/OUTPATIENT VISIT EST Diagnosis: Mixed hyperlipidemia[ICD10: E78.2] Diagnosis: Impaired fasting glucose[ICD10: R73.01] Diagnosis: Insomnia, unspecified[ICD10: G47.00] Jacque Lopez ROGER KAMALJIT Lee KEYES DO [facility] CPT-4: 62425 02/07/2015 ([id number]) OFFICE/OUTPATIENT VISIT EST Diagnosis: Encounter for general adult medical examination without abnormal findings[ICD10: Z00.00] Diagnosis: Essential (primary) hypertension[ICD10: I10] Diagnosis: Mixed hyperlipidemia[ICD10: E78.2] Tracie KINSEY KIMBERLEE Lee TEJEDANDNORMAN SPRINGER [facility] CPT-4: 76976 02/02/2015 ([id number]) OFFICE/OUTPATIENT VISIT EST Diagnosis: SINUSITIS, ACUTE[ICD9: 461.9] Jacquesa Jessica KEYES DO [facility] CPT-4: 08272 07/19/2014 ([id number]) OFFICE/OUTPATIENT VISIT EST Diagnosis: Hypotension[ICD9: 458.9] Diagnosis: DYSPEPSIA[ICD9: 536.8] Diagnosis: HYPERTENSION[ICD9: 401.9] Tracie GALEANO DO [facility] CPT-4: 22174 07/06/2014 ([id number]) OFFICE/OUTPATIENT VISIT EST Diagnosis: DIZZINESS/VERTIGO[ICD9: 780.4] Diagnosis: HYPOTENSION[ICD9: 458.9] Diagnosis: MALAISE AND FATIGUE[ICD9: 780.79] Tracie Nikhilkaren EM Lidia KEYES DO [facility] CPT-4: 62949 07/04/2014 ([id number]) OFFICE/OUTPATIENT VISIT EST Diagnosis: ARTHRALGIA-MULTIPLE SITES[ICD9: 719.49] Diagnosis: CEPHALGIA[ICD9: 784.0] Diagnosis: Uveitis[ICD9: 364.3] Tracie KEYES [facility] CPT-4: 02069 06/14/2014 ([id number]) OFFICE/OUTPATIENT VISIT EST Diagnosis: HYPERTENSION[ICD9: 401.9] Diagnosis: OTHER ABNORMAL GLUCOSE[ICD9: 790.29] Tracie Nikhilkaren ROGER KAMALJIT Lee [facility] CPT-4: 04680 03/09/2014 ([id number]) OFFICE/OUTPATIENT VISIT EST Diagnosis: OTHER ABNORMAL GLUCOSE[ICD9: 790.29] Tracie Nikhilkaren MARI Lee TEJEDANDER [facility] CPT-4: 42426 01/05/2014 ([id number]) OFFICE/OUTPATIENT VISIT EST Diagnosis: ROUTINE MEDICAL EXAM[ICD9: V70.0] Tracie Nikhilkaren Murillo Lee [facility] CPT-4: 22460 11/18/2013 ([id number]) PREV VISIT EST AGE 40-64 Diagnosis: ROUTINE MEDICAL EXAM[ICD9: V70.0] Diagnosis: HYPERLIPIDEMIA NEC/NOS[ICD9: 272.4] Diagnosis: FOREIGN BODY FINGER[ICD9: 915.6] Tracie KEYES [facility] CPT-4: 43612 11/09/2013 ([id number]) OFFICE/OUTPATIENT VISIT EST Diagnosis: CERVICALGIA[ICD9: 723.1] Diagnosis: B12 DEFIC ANEMIA NEC[ICD9: 281.1] Diagnosis: DISTURBANCE OF SKIN SENSATION (Paresthesia)[ICD9: 782.0] [facility]: 83637 11/24/2012 OFFICE/OUTPATIENT VISIT EST Diagnosis: Neck pain on left side[ICD9: 723.1] Diagnosis: Tendonitis of elbow, left[ICD9: 727.09] Jacque Jessica TRACIE [facility] CPT-4: 89598 11/03/2012 OFFICE/OUTPATIENT VISIT EST Diagnosis: Oral lesion[ICD9: 528.9] Diagnosis: Herpes zoster[ICD9: 053.9] Diagnosis: FEBRILE ILLNESS[ICD9: 780.60] Liz Randall [facility]IE [facility] CPT-[facility]: 46691 02/25/2012 OFFICE/OUTPATIENT VISIT EST Diagnosis: MALAISE AND FATIGUE[ICD9: 780.79] Diagnosis: B12 DEFIC ANEMIA NEC[ICD9: 281.1] Diagnosis: SPOTTED FEVERS[ICD9: 082.0] Diagnosis: SPASM OF MUSCLE[ICD9: 728.85] Tracie Stephy DURANLINE Lee [facility] CPT-4: 74628 10/08/2011 ([id number]) OFFICE/OUTPATIENT VISIT EST Diagnosis: MALAISE AND FATIGUE[ICD9: 780.79] Diagnosis: SPOTTED FEVERS[ICD9: 082.0] Diagnosis: B12 DEFIC ANEMIA NEC[ICD9: 281.1] Tracie Stephy EM Murillo [facility] CPT-4: 35466 09/24/2011 ([id number]) OFFICE/OUTPATIENT VISIT EST Diagnosis: B12 DEFIC ANEMIA NEC[ICD9: 281.1] Diagnosis: HYPERTENSION[ICD9: 401.9] Diagnosis: MALAISE AND FATIGUE[ICD9: 780.79] Diagnosis: OTHER ABNORMAL GLUCOSE[ICD9: 790.29] Tracie KEYES DO [employer] CPT-4: 92404 09/17/2011 OFFICE/OUTPATIENT VISIT EST Diagnosis: NONVENOM ARTHROPOD BITE[ICD9: E906.4] Diagnosis: HYPERTENSION[ICD9: 401.9] Tracie TEJEDA NDER DO [employer] CPT-4: 67748 09/09/2011 PREV VISIT EST AGE 40-64 Tracie WELCH R DO [employer] CPT-4: 84103 08/29/2010 ([id number]) OFFICE/OUTPATIENT VISIT, EST Tracie KEYES DO [employer] CPT-4: 91216 12/12/2009 ([id number]) OFFICE/OUTPATIENT VISIT, EST Tracie KEYES DO [employer] CPT-4: 38313 10/30/2009 ([id number]) OFFICE/OUTPATIENT VISIT, NEW Tracie OBRIENER DO [employer] CPT-4: 05943 10/01/2009 Plan of Care Planned Activity Notes [...] neck chest with contrast and labs at [facility] ICD-9 : 785.6 ICD-10 : R59.0 10/19/2020 Appointment: [facility] [phone] [facility] [facility] 10/19/2020 Patient Education: Patient [...] 10/01/2020 Appointment: [facility] [phone] [facility] [facility] FO[facility] 10/01/2020 Patient Education: [...] I82.401 09/24/2020 Appointment: Tracie Keyes WPtel: [phone] [facility] US FOLLOW UP 09/24/2020 Visit Diagnosis [...] extremity Discussion: Swelling decreasing. F/U 1 w [place] for recheck. ICD-9 : 453.41 ICD-10 : I82.411 09/17/2020 Appointment: Estephanie Zaidi WPtel: [phone] [facility] US FOLLOW UP 09/17/2020 Patient Education: Patient Medication Summary Completed 09/17/2020 Patient Education: Eliquis- Opt[employer] Coupon [id number] https://www.[employer]/resources/getResource/61/f80czwgb-3lbu-049t-09 Completed 09/17/2020 Patient Education: tramadol- [employer] Coupon [id number] https://www.[employer]/samplemd/resources/getResource/61/qmu00014-ww56-1g99-09 Completed 09/17/2020 Visit Diagnosis Plan: Acute deep [...] 09/14/2020 Appointment: Estephanie Zaidi WPtel: [phone] [facility] US FOLLOW UP 09/14/2020 Patient Education: Patient Medication Summary Completed 09/14/2020 Visit Diagnosis Plan: Right leg swelling Discussion: W ill send to [facility] for stat doppler to r/o DVT d/t [...] R73.9 04/18/2020 Appointment: Tracie Keyes WPtel: [phone] [facility] US FOLLOW UP 04/18/2020 Patient Education: lisinopril- Opt[employer] Coupon [id number] https://www.[employer]/samplemd/resources/getResource/61/082211rj-fyec-90z0-45 Completed 04/18/2020 Visit Diagnosis Plan: Essential (primary) hypertension Discussion: Stable on lisinopril ICD-9 : 401.9 ICD-10 : I10 10/12/2019 Visit Diagnosis Plan: Encounter for [facility] adult medical examination without abnormal findings Discussion: Mediterranean diet Combinati on of cardio and weight bearing exercise Will return for fasting lab next week ICD-9 : V70.0 ICD-10 : Z00.00 10/12/2019 Visit Diagnosis Plan: Hyperglycemia, unspecified Discu ssion: Will return for HbA1C next week ICD-9 : 790.29 ICD-10 : R73.9 10/12/2019 Appointment: Tracie Keyes WPtel: [address] [place] [address] INSIDE Annual Well Visit 10/12/2019 Appointment: Viridiana Lima [address] FOLLOW UP 05/16/2019 Visit Diagnosis Plan: [...] : W55.03XA 04/25/2019 Appointment: Tracie Keyes WPtel: [facility] [address] Hospital Follow Up 04/25/2019 Patient Education: nystatin- [employer] Coupon [id number] https://www.[employer]/samplemd/resources/getResource/61/26920nb3-5298-16r4-4s Completed 04/25/2019 Visit Diagnosis Plan: Submandibular gland [...] ICD-10 : K11.1 04/12/2019 Appointment: Tracie Keyestel: [address] [place] [address] 04/12/2019 Appointment: Tracie Keyestel: [address] [place] [address] LM CANCELED 08/09/2018 Visit Diagnosis Plan: Essential (primary) hypertension Discussion: Stable ICD-9 : 401.9 ICD-10 : I10 02/17/2018 Visit Diagnosis Plan: Encounter for [facility] adult medical examination without abnormal findings Discussion: Lab discussed Refuses prosta te check Refuses colonoscopy Will check with pharmacy on Shingrix/Flu shot and Prevnar ICD-9 : V70.0 ICD-10 : Z00.00 02/17/2018 Visit Diagnosis Plan: Hyperglycemia, unspecified Discu ssion: Wants to focus on diet/exercise and recheck in 6mos ICD-9 : 790.29 ICD-10 : R73.9 02/17/2018 Appointment: Tracie Keyestel: [address] [place] [address] Annual Well Visit 02/17/2018 Appointment: Tracie Keyestel: [address] [place] [address] US LAB 01/29/2018 Appointment: Tracie Keyestel: [address] [place], [place] [address] [place] LAB 05/01/2017 Patient Education: Patient Medication [...] Rest, Fluids... 04/07/2017 Appointment: Tracie Keyes WPtel: [address] [place], [place] [phone] ACUTE ILLNESS 04/07/2017 Patient Education: Patient Medication Summary Completed 04/07/2017 Visit Plan: Had meds refilled for 6 joseph hs the other day. RTC 6 months Described s/s of heart disease that he would need to report for to us or ER/UC. 09/19/2016 Appointment: Ashley Crenshaw WPtel: [address] [place], [place] [phone] [place] 09/18 lm`sl FOLLOW UP 09/19/2016 Patient Education: Patient Medication Summary Completed 09/19/2016 Appointment: Tracie Keyes WPtel: [address] [place], [place] [address] [place] LAB 01/04/2016 Patient Education: Patient Medication Summary Completed 01/04/2016 Visit Plan: Will get flu shot at work Up date fasting lab 12/18/2015 Appointment: Tracie Keyes WPtel: [address] [place], [place] [phone] [place] 12/16 lm~sl FOLLOW UP 12/18/2015 Patient Education: Patient Medication Summary Completed 12/18/2015 Visit Plan: Pt declined rectal/prostate exam. Encouraged to get colonoscopy Plan labs for fall 2015 Continue on current meds but send in home B/P since today's B/P is elevated to see if dosage change is indicated. RTC in 6 months 07/20/2015 Appointment: Debbie Crenshawcy WPtel: [phone] [place], [place] [phone] 07/18 lm ~sl Annual Well Visit 07/20/2015 Patient Education: Patient Medication Summary Completed 07/20/2015 Visit Plan: Resume BP med Resume Metform in( has been off > 9 months) Add HgbA1C to labs drawn last week, Trial of Selinor for sleep. Will let us know how he does with it. 02/07/2015 Appointment: Jacque Lopez WPtel: [phone] [place], [place] [phone] 02/06/15 cn....appt confirmed cn FOLLOW UP 02/07/2015 Patient Education: Patient Medication Summary Completed 02/07/2015 Patient Education: [facility] - Saving [employer] - Lisinopril - 18-64 - Dynamic Portal ID Completed 02/07/2015 Appointment: Tracie Keyes WPtel: [address] [place], [place] [id number] LAB 02/02/2015 Patient Education: Patient Medication Summary Completed 02/02/2015 Appointment: Jacque Lopez WPtel: [address] [place], [place] [phone] ACUTE ILLNESS 07/19/2014 Patient Education: Patient Medication Summary Completed 07/19/2014 Visit Plan: Restart Diltiazem Continue t o hydrate Call in 3 days on how doing 07/06/2014 Appointment: Tracie Keyes WPtel: [address] [place], [place] [phone] [place] 07/05 appt confirmed cn FOLLOW UP 07/07/19 Patient Education: Patient Medication Summary Completed 07/06/2014 Visit Plan: Hold lisinopril hct Hydrate Recheck 2 days Meclizine 25mg q HS Hold metformin Call in AM 07/04/2014 Appointment: Tracie Keyes WPtel: [address] [place], [place] [phone] US FOLLOW UP 07/04/2014 Patient Education: Patient Medication Summary Completed 07/04/2014 Appointment: Tracie Keyes WPtel: [address] [place] [address] ACUTE ILLNESS 06/14/2014 Patient Education: Patient Medication Summary Completed 06/14/2014 Appointment: Tracie Keyes WPtel: [address] [place] [address] FOLLOW UP 03/09/2014 Patient Education: Patient Medication Summary Completed 03/09/2014 Visit Plan: Continue metformin at curren t dose Accuchecks daily alternating times Diabetic diet info given Check CMP with HbA1C in 2mos then fwup 01/05/2014 Appointment: Tracie Keyes WPtel: [address] [place] [address] FOLLOW UP 01/05/2014 Patient Education: Patient Medication Summary Completed 01/05/2014 Visit Plan: Did not need lab so will jus t fwup as scheduled 01/03/2014 Appointment: Tracie Keyes WPtel: [address] [place] [address] LAB 01/03/2014 Patient Education: Patient Medication Summary Completed 01/03/2014 Appointment: Tracie Keyestel: [address] [place] [address] LAB 11/18/2013 Patient Education: Patient Medication Summary Completed 11/18/2013 Visit Plan: Continue current meds Remova l of splinter as above Keflex for 1 week Continue current meds Fwup next week for fasting lab including PSA 11/09/2013 Appointment: Tracie Keyestel: [address] [place] [address] 11/08 Annual Well Visit 11/09/2013 Patient Education: Patient Medication Summary Completed 11/09/2013 Patient Education: [facility] [place] - [employer] [employer] - Lisinopril - 18+ - Dynamic Portal ID Completed 11/09/2013 Appointment: Tracie Keyes WPtel: [address] [place], [place] [id number] 11[place]23 [place] [facility] [place] 11/24/2012 Patient Education: Patient Medication Summary Completed 11/24/2012 Appointment: SaleemGil Jacque Trivedi WPtel: [address] [place], [place] [id number] FOLLOW UP 11/10/2012 Appointment: Jessica Jacque Trivedi WPtel: [address] [place], [place] [phone] ACUTE ILLNESS 11/03/2012 Patient Education: Patient Medication Summary Completed 11/03/2012 Appointment: Liz Randall WPtel: [address] [place], [place] [phone] ACUTE ILLNESS 02/25/2012 Patient Education: Patient Medication Summary Completed 02/25/2012 Visit Plan: Finish abx Continue B12 OMT done Add Skelaxin 800mg q HS 10/08/2011 Appointment: Tracie Keyes WPtel: [address] [place], [place] [phone] [place] FOLLOW UP 10/08/2011 Patient Education: Patient Medication Summary Completed 10/08/2011 Appointment: Tracie Keyes WPtel: [address] [place], [place] [phone] FOLLOW UP 09/24/2011 Patient Education: Patient Medication Summary Completed 09/24/2011 Appointment: Tracie Keyes WPtel: [address] [place], [place] [phone] LAB 09/17/2011 Patient Education: Patient Medication Summary [...] fasting labs. 09/09/2011 Appointment: Liz Randall WPtel: [address] [place], [place] [email or web address]] ACUTE ILLNESS 09/09/2011 Patient Education: Patient Medication Summary Completed 09/09/2011 Visit Plan: Change lisinopril hct to 20/ 12.5mg 2 daily and continue cardizem Check fasting lab--drawn today 08/29/2010 Appointment: Tracie Keyes WPtel: [address] [place], [place] [phone] FOLLOW UP 08/29/2010 Patient Education: Patient Medication Summary Completed 08/29/2010 Appointment: Tracie Keyes WPtel: [address] [place], [place] [phone] FOLLOW UP 12/12/2009 Patient Education: Patient Medication Summary Completed 12/12/2009 Appointment: Tracie Keyes WPtel: [address] [place], [place] [phone] [[email or web address]] FOLLOW UP 11/27/2009 Visit Plan: Finish Abx B12 given Start d aily 1000mcg B12 Cont allopurinol and check B12 and uric acid in 1mo. 10/30/2009 Appointment: Tracie Keyes WPtel: [address] [place] [phone] FOLLOW UP 10/30/2009 Patient Education: Patient Medication Summary Completed 10/30/2009 Appointment: Tracie Keyes WPtel: [address] [place], [place] [phone] [[email or web address] NEW PATIENT 10/01/2009 Patient Education: Patient Medication Summary Completed 10/01/2009 Referral: Sav Olivo WPtel: [address] [place], [place] [phone] Referral Initiated Instructions Comment . Discussed labs [...]
--- OUTSIDE RECORDS SUMMARY | 2020-11-05 09:34 | XMS REPORT | CCD ---
Author Author Josh Keyes D.O. Organization [facility] Address [address] [place] [address] Phone Care Team Providers Care Press Assistant Name Role Phone Tracie Keyes D.O., PP Unavailable CCM Unavailable Summary Purpose Interface Exchange Insurance Providers Payer name Policy type / Coverage type Covered alliance party ID Effective Begin Date Effective End Date WPS MEDICARE PART B [place] Medicare Part B [id number] Unknown [facility] Medicare Part B [id number] 2019 Un known Family history Sister Diagnosis Age At Onset seizure disorder Unknown Father Diagnosis Age At Onset Diabetes mellitus Type 2 Unknown Mother Diagnosis Age At Onset Diabetes mellitus Type 2 Unknown Social History Social History Element Codes Description Effective Dates Tobacco history SNOMED CT: 44101757 Currently smokes tobacco Marital status Unknown 10/01/2009 [...] E906.4 09/09/2011 Active Hypertension Unknown 10/01/2009 Active 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 Act [place]aco B12 DEFIC ANEMIA NEC ICD-9: 281.1 10/01/2009 Active Hyperuricemia ICD-9: 790.6 10/01/2009 Active Myalgia ICD-9: 729.1 10/01/2009 Active [place] spotted fever ICD-9: 082.0 10/01/2009 Act [place] Medications Medication Codes Instructions Start Date Stop Date Status Fill Instructions Eliquis 5 mg tablet RxNorm: 2479373 Take 1 Tablet(s) Oral two ti mes a day 09/19/2020 12/17/2020 Active tramadol 50 mg tablet RxNorm: 461584 Take 1 Tablet(s) O ral Q8H as needed for pain Take with 2 tylenol 09/17/2020 No Stop Date Active Eliquis 5 mg tablet RxNorm: 8943960 Take 2 Tablet(s) Oral two ti mes a day 09/17/2020 No Stop Date Active lisinopril 40 mg tablet RxNorm: 324486 1 Tablet(s) Oral QD repl aces 20mg dose 04/18/2020 10/15/2020 Inactive Men's Multivitamin 400 mcg-20 mcg-300 mcg tablet RxNorm: 1 Tablet(s) Oral QD 04/18/2020 No Stop Date Active lisinopril 20 mg tablet RxNorm: 082402 1 Tablet(s) Oral QD 03/29/19 21 04/17/2020 Inactive Due for his 6 month appointm ent lisinopril 20 mg tablet RxNorm: 086992 TAKE ONE (1) TAB LET BY MOUTH DAILY... Needs fwup 10/03/2019 11/02/2019 Inactive lisinopril 20 mg tablet RxNorm: 649222 TAKE ONE (1) TABLET BY M OUTH DAILY... 10/03/2019 10/02/2019 Inactive Zithromax 500 mg tablet RxNorm: 437020 1 Tablet(s) Oral QD 04/25/19 20 05/02/2019 Inactive [AttnRPh: Saving apply/adjud icate RxGRP:SG20 RxBIN:[id number] RxPCN: ID#:[id number]] lisinopril 20 mg tablet RxNorm: 467261 1 Tablet(s) Oral QD 04/25/19 20 10/02/2019 Inactive nystatin 100,000 unit/mL oral suspension RxNorm: 063627 5 Milliliter(s) Oral four times a day swish, gargle and spit 04/25/2019 05/09/2019 Inactive diltiazem ER (XR/XT) 120 mg capsule,extended release 2 4 hr, controlled RxNorm: 107121 Capsule(s) 1 Capsule(s) PO QD 06/10/2018 10/11/2019 Inactive [SAVINGS FOR UNINSURED PATIENTS -- BIN:686570, PCN: ASPROD1, Group: AME08, ID# [id number], Process claim through MedIThirstyact, for questions: . THIS IS NOT INSURANCE.] lisinopril 20 mg-hydrochlorothiazide 12.5 mg tablet RxNorm: 165277 1 Tablet(s) PO QAM 06/10/2018 10/11/2019 Inactive [AttnRPh: Saving apply/adjudicate RxGRP:SG20 RxBIN:[id number] RxPCN: ID#:[id number]] lisinopril 20 mg-hydrochlorothiazide 12.5 mg tablet RxNorm: 204595 1 Tablet(s) PO QAM 05/06/2017 01/30/2018 Inactive [AttnRPh: Saving apply/adjudicate RxGRP:SG20 RxBIN:[id number] RxPCN: ID#:[id number]] diltiazem ER (XR/XT) 120 mg capsule,extended release 2 4 hr, controlled RxNorm: 065483 Capsule(s) 1 Capsule(s) PO QD 05/06/2017 01/30/2018 Inactive [SAVINGS FOR UNINSURED PATIENTS -- BIN:400810, PCN: ASPROD1, Group: AME08, ID# [id number], Process claim through MedImpact, for questions: . THIS IS NOT INSURANCE.] diltiazem ER (XR/XT) 120 mg capsule,extended release 2 4 hr, controlled RxNorm: 757436 Capsule(s) 1 Capsule(s) PO QD 09/16/2016 03/14/2017 Inactive [SAVINGS FOR UNINSURED PATIENTS -- BIN:572769, PCN: ASPROD1, Group: AME08, ID# [id number], Process claim through MedImpact, for questions: . THIS IS NOT INSURANCE.] lisinopril 20 mg-hydrochlorothiazide 12.5 mg tablet RxNorm: 302993 1 Tablet(s) PO QAM 09/16/2016 03/14/2017 Inactive [AttnRPh: Saving apply/adjudicate RxGRP:SG20 RxBIN:[id number] RxPCN: ID#:[id number]] diltiazem ER (XR/XT) 120 mg capsule,extended release,control led RxNorm: 061324 1 Capsule(s) PO QD 04/09/2016 10/11/2019 Inactive [SAVINGS FOR UN INSURED PATIENTS -- BIN:991764, PCN: ASPROD1, Group: AME08, ID# [id number], Process claim through MedImpact, for questions: . THIS IS NOT INSURANCE.] diltiazem ER (XR/XT) 120 mg capsule,extended release,control led RxNorm: 118311 1 Capsule(s) PO QD 04/09/2016 09/15/2016 Inactive [SAVINGS FOR UN INSURED PATIENTS -- BIN:158248, PCN: ASPROD1, Group: AME08, ID# [id number], Process claim through MedImpact, for questions: . THIS IS NOT INSURANCE.] lisinopril 20 mg-hydrochlorothiazide 12.5 mg tablet RxNorm: 756066 1 Tablet(s) PO QAM 12/10/2015 06/06/2016 Inactive [AttnRPh: Saving apply/adjudicate RxGRP:SG20 RxBIN:[id number] RxPCN: ID#:[id number]] diltiazem ER (XR/XT) 120 mg capsule,extended release,control led RxNorm: 802300 1 Capsule(s) PO QD 02/07/2015 02/01/2016 Inactive [SAVINGS FOR UN INSURED PATIENTS -- BIN:518160, PCN: ASPROD1, Group: AME08, ID# [id number], Process claim through MedImpact, for questions: . THIS IS NOT INSURANCE.] lisinopril 20 mg-hydrochlorothiazide 12.5 mg tablet RxNorm: 494563 1 Tablet(s) PO QAM 02/07/2015 12/09/2015 Inactive [AttnRPh: Saving apply/adjudicate RxGRP:SG20 RxBIN:[id number] RxPCN: ID#:[id number]] metformin ER 1,000 mg 24 hr tablet,extended release RxNorm: 833180 1 Tablet(s) PO QD 02/07/2015 07/19/2015 Inactive [SAVINGS FOR UNI NSURED PATIENTS -- BIN:004115, PCN: ASPROD1, Group: AME08, ID# [id number], Process claim through Filtr8, for questions: . THIS IS NOT INSURANCE.] diltiazem ER (XR/XT) 120 mg capsule,extended release,control led RxNorm: 526526 1 Capsule(s) PO QD 12/28/2014 02/06/2015 Inactive [SAVINGS FOR UN INSURED PATIENTS -- BIN:985794, PCN: ASPROD1, Group: AME08, ID# [id number], Process claim through [employer], for questions: . THIS IS NOT INSURANCE.] lisinopril 20 mg-hydrochlorothiazide 12.5 mg tablet RxNorm: 634160 1 Tablet(s) PO QAM 11/20/2014 10/11/2019 Inactive cefdinir 300 mg capsule RxNorm: 941164 2 Capsule(s) PO QD 07/19/2014 07/28/2014 Inactive [SAVINGS FOR NON-COVERED DRUGS -- BIN:00 3585, PCN: ASPROD1, Group: XXXXX, ID# [id number], Questions: . THIS IS NOT INSURANCE.] meclizine 25 mg tablet RxNorm: 615645 1 Tablet(s) PO QHS 07/04/2014 0 10/31/2014 Inactive [SAVINGS FOR NON-COVERED DRUGS -- BIN:00 3585, PCN: ASPROD1, Group: XXXXX, ID# [id number], Questions: . THIS IS NOT INSURANCE.] allopurinol 300 mg tablet RxNorm: 374868 1 Tablet(s) PO QD 06/17/19 15 06/15/2014 Inactive allopurinol 300 mg tablet RxNorm: 850113 1 Tablet(s) PO QD 06/17/19 15 02/06/2015 Inactive [SAVINGS FOR NON-COVERED TATYANA GS -- BIN:045003, PCN: ASPROD1, Group: XXXXX, ID# [id number], Questions: . THIS IS NOT INSURANCE.] naproxen 500 mg tablet RxNorm: 247171 1 Tablet(s) PO BID 06/16/2014 0 07/19/2015 Inactive [SAVINGS FOR NON-COVERED DRUGS -- BIN:00 3585, PCN: ASPROD1, Group: XXXXX, ID# [id number], Questions: . THIS IS NOT INSURANCE.] metformin ER 1,000 mg 24 hr tablet,extended release RxNorm: 766819 1 Tablet(s) PO QD 03/14/2014 02/06/2015 Inactive [SAVINGS FOR UNI NSURED PATIENTS -- BIN:381372, PCN: ASPROD1, Group: AME08, ID# [id number], Process claim through MedImpact, for questions: . THIS IS NOT INSURANCE.] metformin ER 500 mg tablet,extended release 24hr RxNorm: 860 975 1 Tablet(s) PO QD 01/05/2014 03/13/2014 Inactive [SAVINGS FOR UNI NSURED PATIENTS -- BIN:193905, PCN: ASPROD1, Group: AME08, ID# [id number], Process claim through MedImpact, for questions: . THIS IS NOT INSURANCE.] metformin ER 500 mg tablet,extended release 24hr RxNorm: 860 975 1 Tablet(s) PO QD 11/28/2013 01/04/2014 Inactive [SAVINGS FOR UNI NSURED PATIENTS -- BIN:185692, PCN: ASPROD1, Group: AME08, ID# [id number], Process claim through MedImpact, for questions: . THIS IS NOT INSURANCE.] Keflex 500 mg capsule RxNorm: 606469 1 Capsule(s) PO TID 11/09/2013 0 11/15/2013 Inactive [SAVINGS FOR UNINSURED PATIENTS -- BIN:0 31253, PCN: ASPROD1, Group: AME08, ID# [id number], Process claim through MedImpact, for questions: . THIS IS NOT INSURANCE.] diltiazem ER (XR/XT) 120 mg capsule,extended release,control led RxNorm: 036984 1 Capsule(s) PO QD 11/09/2013 11/03/2014 Inactive [SAVINGS FOR UN INSURED PATIENTS -- BIN:006004, PCN: ASPROD1, Group: MONSERRATEIan, ID# [id number], Process claim through MedImpact, for questions: . THIS IS NOT INSURANCE.] lisinopril 20 mg-hydrochlorothiazide 12.5 mg tablet RxNorm: 649680 2 Tablet(s) PO QAM 11/09/2013 11/20/2014 Inactive [AttnRPh: Saving apply/adjudicate RxGRP:SG20 RxBIN:[id number] RxPCN: ID#:[id number]] diltiazem ER (XR/XT) 120 mg capsule,extended release,control led RxNorm: 922560 1 Capsule(s) PO QD -need labs 10/31/2013 11/08/2013 Inactive [DELICIA INGS FOR UNINSURED PATIENTS -- BIN:129726, PCN: ASPROD1, Group: TRAN, ID# [id number], Process claim through MedImpact, for questions: . THIS IS NOT INSURANCE.] lisinopril 20 mg-hydrochlorothiazide 12.5 mg tablet RxNorm: 015491 2 Tablet(s) PO QAM 10/31/2013 11/08/2013 Inactive [AttnRPh: Saving apply/adjudicate RxGRP:SG20 RxBIN:[id number] RxPCN: ID#:[id number]] diltiazem ER (XR/XT) 120 mg capsule,extended release,control led RxNorm: 651466 1 Capsule(s) PO QD -need labs 09/12/2013 10/11/2013 Inactive [DELICIA INGS FOR UNINSURED PATIENTS -- BIN:723024, PCN: ASPROD1, Group: AME08, ID# [id number], Process claim through MedImpact, for questions: . THIS IS NOT INSURANCE.] Omnicef 300 mg capsule RxNorm: 298461 2 Capsule(s) PO QD 11/24/2012 0 11/08/2013 Inactive naproxen 500 mg tablet RxNorm: 159445 1 Tablet(s) PO TID 11/04/2012 0 11/03/2012 Inactive allopurinol 100 mg tablet RxNorm: 880754 1 Tablet(s) PO BID 013 11/08/2013 Inactive naproxen 500 mg tablet RxNorm: 394748 1 Tablet(s) PO TID 11/04/2012 0 11/08/2013 Inactive diltiazem ER (XR/XT) 120 mg capsule,extended release,control led RxNorm: 403289 1 Capsule(s) PO QD 08/02/2012 09/12/2013 Inactive lisinopril 20 mg-hydrochlorothiazide 12.5 mg tablet RxNorm: 999784 2 Tablet(s) PO QAM 08/02/2012 07/27/2013 Inactive acyclovir 800 mg tablet RxNorm: 526443 1 Tablet(s) PO D Take 1 tablet by mouth 5 times daily 02/26/2012 11/02/2012 Inactive acyclovir 800 mg tablet RxNorm: 905413 1 Tablet(s) PO D 02/25/2012 Inactive clindamycin 300 mg capsule RxNorm: 291139 1 Capsule(s) PO TID 02/2403/02/2012 Inactive lisinopril-hydrochlorothiazide 20 mg-12.5 mg tablet RxNorm: 907747 2 Tablet(s) PO QAM 01/30/2012 08/01/2012 Inactive diltiazem ER (XR/XT) 120 mg capsule,extended release,control led RxNorm: 175236 1 Capsule(s) PO QD 01/30/2012 08/01/2012 Inactive lisinopril-hydrochlorothiazide 20 mg-12.5 mg tablet RxNorm: 347754 2 Tablet(s) PO QAM 01/30/2012 10/11/2019 Inactive diltiazem ER (XR/XT) 120 mg capsule,extended release,control led RxNorm: 752862 1 Capsule(s) PO QD 01/30/2012 10/11/2019 Inactive Culturelle 10 billion cell capsule RxNorm: 378581 1 Capsule(s) PO Q D 10/16/2011 02/24/2012 Inactive Omnicef 300 mg capsule RxNorm: 012005 2 Capsule(s) PO QD 09/24/2011 0 11/02/2012 Inactive diltiazem ER (XR/XT) 120 mg capsule,extended release,control led RxNorm: 880401 1 Capsule(s) PO QD 09/09/2011 01/29/2012 Inactive Culturelle 10 billion cell Cap RxNorm: 545475 1 Capsule (s) PO BID take a few hours after Doxycycline. Probiotic 09/09/2011 09/28/2011 Inactive lisinopril-hydrochlorothiazide 20 mg-12.5 mg tablet RxNorm: 075825 2 Tablet(s) PO QAM 09/09/2011 01/29/2012 Inactive doxycycline hyclate 100 mg Tab RxNorm: 1292112 1 Tablet( s) PO BID antibiotic. (may make a little sensitive to sunburn) 09/09/2011 09/18/2011 Inactiv e lisinopril-hydrochlorothiazide 20 mg-12.5 mg Tab RxNorm: 197 886 2 Tablet(s) PO QAM Due for yearly check-up 09/08/2011 09/08/2011 Inactive diltiazem ER (XR/XT) 120 mg Continuous Release Cap RxNorm: 8 34637 1 Capsule(s) PO QD Due for yearly check-up. 09/08/2011 09/08/2011 Inactive diltiazem ER (XR/XT) 120 mg Continuous Release Cap RxNorm: 8 25295 1 Capsule(s) PO QD 08/29/2010 08/23/2011 Inactive lisinopril-hydrochlorothiazide 20 mg-12.5 mg Tab RxNorm: 197 886 2 Tablet(s) PO QAM 08/29/2010 08/23/2011 Inactive lisinopril-hydrochlorothiazide 20 mg-25 mg Tab RxNorm: 047506 1 Tablet(s) PO QD 08/21/2010 08/28/2010 Inactive allopurinol 100 mg tablet RxNorm: 231838 1 Tablet(s) PO QD 04/22/19 11 08/28/2010 Inactive allopurinol 100 mg Tab RxNorm: 613584 1 Tablet(s) PO QD 12/18/2009 Inactive Allopurinol 100 mg Tab RxNorm: 121763 1 Tablet(s) PO QD 12/12/2009 Inactive Allopurinol 100 mg Tab RxNorm: 343514 1 Tablet(s) PO QD 10/30/2009 Inactive Omnicef 300 mg Cap RxNorm: 099526 2 Capsule(s) PO QD 10/01/200910/29 Inactive Allopurinol 100 mg Tab RxNorm: 282629 1 Tablet(s) PO QD 10/01/2009 Inactive Vitamin D3 oral RxNorm: 2418 oral 04/18/2020 Active Vitamin C oral RxNorm: 1151 oral 04/18/2020 Active Vitamin B12 1000mcg Tablet RxNorm: 1 Tablet(s) PO QD 08/29/2010 Inactive lisinopril 20 mg-hydrochlorothiazide 12.5 mg tablet RxNorm: 995722 1 Tablet(s) PO QAM 11/20/2014 11/19/2014 Inactive Medrol (Sid) 4 mg tablets in a dose pack RxNorm: 067743 Tablet(s) PO as directed 11/09/2013 11/08/2013 Inactive Omnicef 300 mg Cap RxNorm: 449045 2 Capsule(s) PO QD 09/24/201112/11 Inactive Fish Oil 1,000 mg Cap RxNorm: 1 Capsule(s) PO QD 11/09/20132013 Inactive diltiazem ER (XR/XT) 120 mg Continuous Release Cap RxNorm: 8 37724 1 Capsule(s) PO QD 08/29/2010 08/28/2010 Inactive Culturelle 10 billion cell capsule RxNorm: 971607 1 Capsule(s) PO Q D 11/03/2012 11/02/2012 Inactive metformin ER 500 mg tablet,extended release 24hr RxNorm: 860 975 1 Tablet(s) PO QD 11/28/2013 11/27/2013 Inactive Lisinopril Oral RxNorm: Oral 10/01/2009 10/01/2009 Inactive Vitamin B12 1000mcg Tablet RxNorm: 1 Tablet(s) PO QD 12/18/2015 Inactive Vitamin B12 1000mcg Tablet RxNorm: 1 Tablet(s) PO QD 11/09/2013 Inactive lisinopril-hydrochlorothiazide 20 mg-25 mg Tab RxNorm: 711311 1 Tablet(s) PO QD 08/21/2010 2010 Inactive metformin ER 1,000 mg 24 hr tablet,extended release RxNorm: 411678 1 Tablet(s) PO QD 03/14/2014 03/13/2014 Inactive Fish Oil 1,000 mg capsule RxNorm: 1 Capsule(s) PO QD 12/18/2015 Inactive Medication Administered No Medication Administered data Immunizations Vaccine Codes Date Status B12 Unknown 09/24/2011 Results Observation Observation Code Item Item Code Result Date S ervice Location GLYCOSYLATED HEMOGLOBIN TEST 45359 Hgb A1c 79685-7 5.7 % 0 04/18/2020 Unknown GFR CALC 9269762 GFR Non Afr Amr >60 mL/min 04/18/2020 Un known GFR CALC 4882020 GFR Afr Amr >60 mL/min 04/18/2020 Unknow n COMPREHENSIVE METABOLIC 84314 AST 35 U/L 2020 Unknown COMPREHENSIVE METABOLIC 86097 ALT 45 U/L 2020 Unknown COMPREHENSIVE METABOLIC 32033 BUN 10 mg/dL 2020 Unknown COMPREHENSIVE METABOLIC 49428 ALBUMIN 4.3 g/dL 2020 Unknown COMPREHENSIVE METABOLIC 89781 CHLORIDE 101 mmol/L 04/18 Unknown COMPREHENSIVE METABOLIC 32569 Bili Total 0.8 mg/dL 04/18 Unknown COMPREHENSIVE METABOLIC 69032 ALK PHOS 73 U/L 2020 Unknown COMPREHENSIVE METABOLIC 00770 SODIUM 137 mmol/L 04/18 Unknown COMPREHENSIVE METABOLIC 45218 CREATININE 0.99 mg/dL 03/27 Unknown COMPREHENSIVE METABOLIC 35084 CALCIUM 9.1 mg/dL 2020 Unknown COMPREHENSIVE METABOLIC 48224 POTASSIUM 4.3 mmol/L 04/18 Unknown COMPREHENSIVE METABOLIC 10951 Total Protein 7.0 g/dL Unknown COMPREHENSIVE METABOLIC 45278 Glucose 133 mg/dL 2020 Unknown COMPREHENSIVE METABOLIC 86126 Bicarbonate 26 mmol/L 03/27 Unknown COMPREHENSIVE METABOLIC 51742 AGAP 10 mmol/L 2020 Unknown MEAN GLUC 7313782 Calc Mean Gluc 117 mg/dL 04/18/2020 Unkn own LIPID GROUP 31132 Cholesterol 187 mg/dL 04/18/2020 Unkno wn LIPID GROUP 01813 Triglyceride 87 mg/dL 04/18/2020 Unkn own [facility] 12400 HDL CHOLESTEROL 59 mg/dL 04/18/2020 U nknown LIPID GROUP 70953 Chol/HDL Ratio 3.17 ratio 04/18/2020 U nknown LIPID GROUP 51391 NON-HDL Chol 128 mg/dL 04/18/2020 Unkn own LIPID GROUP 77911 LDL Cholesterol 111 mg/dL 04/18/2020 U nknown HEPATITIS C ANTIBODY 69072 Hepatitis C Ab Non-Reactive 02/01/2018 Unknown GLYCOSYLATED HEMOGLOBIN TEST 94092 Hgb A1c 22820-6 6.2 % 1 04/01/2017 Unknown GFR CALC 9327622 GFR Non Afr Amr >60 mL/min 01/29/2018 Un known GFR CALC 4033254 GFR Afr Amr >60 mL/min 01/29/2018 Unknow n COMPREHENSIVE METABOLIC 52397 AST 17 U/L 2017 Unknown COMPREHENSIVE METABOLIC 15636 ALT 17 U/L 2017 Unknown COMPREHENSIVE METABOLIC 17294 BUN 12 mg/dL 2017 Unknown COMPREHENSIVE METABOLIC 62214 ALBUMIN 4.6 g/dL 2017 Unknown COMPREHENSIVE METABOLIC 15373 CHLORIDE 101 mmol/L 01/29 Unknown COMPREHENSIVE METABOLIC 48025 Bili Total 0.9 mg/dL 01/29 Unknown COMPREHENSIVE METABOLIC 45889 ALK PHOS 57 U/L 2017 Unknown COMPREHENSIVE METABOLIC 56858 SODIUM 136 mmol/L 01/29 Unknown COMPREHENSIVE METABOLIC 41212 CREATININE 1.00 mg/dL 08/2017 Unknown COMPREHENSIVE METABOLIC 69916 CALCIUM 9.6 mg/dL 2017 Unknown COMPREHENSIVE METABOLIC 61350 POTASSIUM 4.2 mmol/L 01/29 Unknown COMPREHENSIVE METABOLIC 55068 Total Protein 6.9 g/dL Unknown COMPREHENSIVE METABOLIC 30937 Glucose 128 mg/dL 2017 Unknown COMPREHENSIVE METABOLIC 65004 Bicarbonate 27 mmol/L 08/2017 Unknown COMPREHENSIVE METABOLIC 72621 AGAP 8 mmol/L 2017 Unknown LIPID GROUP 35789 Cholesterol 168 mg/dL 01/29/2018 Unkno wn LIPID GROUP 71748 Triglyceride 82 mg/dL 01/29/2018 Unkn own LIPID GROUP 26638 HDL CHOLESTEROL 43 mg/dL 01/29/2018 U nknown LIPID GROUP 55808 Chol/HDL Ratio 3.91 ratio 01/29/2018 U nknown LIPID GROUP 75907 NON-HDL Chol 125 mg/dL 01/29/2018 Unkn own LIPID GROUP 99388 LDL Cholesterol 109 mg/dL 01/29/2018 U nknown MEAN GLUC 6202754 Calc Mean Gluc 131 mg/dL 01/29/2018 Unkn own LIPID GROUP 29518 Cholesterol 164 mg/dL 05/01/2017 Unkno wn LIPID GROUP 82568 Triglyceride 131 mg/dL 05/01/2017 Unkn own LIPID GROUP 32334 HDL CHOLESTEROL 45 mg/dL 05/01/2017 U nknown LIPID GROUP 46060 Chol/HDL Ratio 3.64 ratio 05/01/2017 U nknown LIPID GROUP 80007 NON-HDL Chol 119 mg/dL 05/01/2017 Unkn own LIPID GROUP 18406 LDL Cholesterol 93 mg/dL 05/01/2017 U nknown COMPLETE BLOOD COUNT 4555660 WBC 4.9 10e9/L 05/02/19 18 Unknown COMPLETE BLOOD COUNT 0833080 RBC 4.31 10e12/L 2017 Unknown COMPLETE BLOOD COUNT 4179208 HEMOGLOBIN 14.3 g/dL 05/02/19 18 Unknown COMPLETE BLOOD COUNT 4679265 HEMATOCRIT 42.8 % 05/02/19 18 Unknown COMPLETE BLOOD COUNT 1984038 MCV 99.3 fL 8 Unknown COMPLETE BLOOD COUNT 6970057 MCH 33.2 pg 8 Unknown COMPLETE BLOOD COUNT 2736658 MCHC 33.4 g/dL 8 Unknown COMPLETE BLOOD COUNT 3295278 PLATELET COUNT 241 10e9/L 10/2017 Unknown COMPLETE BLOOD COUNT 2261477 Mean Plt Volume 11.0 fL 10/2017 Unknown COMPLETE BLOOD COUNT 0370668 Neut Auto 56.6 % 8 Unknown COMPLETE BLOOD COUNT 2527870 Lymph Auto 24.7 % 05/02/19 18 Unknown COMPLETE BLOOD COUNT 7938372 [place] Auto 11.6 % 8 Unknown COMPLETE BLOOD COUNT 2417392 RDW 13.2 % 8 Unknown COMPLETE BLOOD COUNT 5944987 Eos Auto 6.9 % 8 Unknown COMPLETE BLOOD COUNT 6469355 Baso Auto 0.2 % 8 Unknown COMPLETE BLOOD COUNT 4367146 Neutrophil Abs 2.77 10e9/L Unknown COMPLETE BLOOD COUNT 0010491 Lymphocyte Abs 1.21 10e9/L Unknown COMPLETE BLOOD COUNT 9285985 Monocyte Abs 0.57 10e9/L 10/2017 Unknown COMPLETE BLOOD COUNT 3218031 Eosinophil Abs 0.34 10e9/L Unknown COMPLETE BLOOD COUNT 1599327 RDW-SD 47.2 fL 8 Unknown COMPLETE BLOOD COUNT 0572838 Basophil Abs 0.01 10e9/L 10/2017 Unknown GLYCOSYLATED HEMOGLOBIN TEST 65469 Hgb A1c 43509-9 6.0 % 0 05/01/2017 Unknown GFR CALC 6611320 GFR Non Afr Amr >60 mL/min 05/01/2017 Un known GFR CALC 5529490 GFR Afr Amr >60 mL/min 05/01/2017 Unknow n MEAN GLUC 9285208 Calc Mean Gluc 126 mg/dL 05/01/2017 Unkn own COMPREHENSIVE METABOLIC 35177 AST 17 U/L 2017 Unknown COMPREHENSIVE METABOLIC 23712 ALT 16 U/L 2017 Unknown COMPREHENSIVE METABOLIC 88306 BUN 13 mg/dL 2017 Unknown COMPREHENSIVE METABOLIC 39737 ALBUMIN 3.9 g/dL 2017 Unknown COMPREHENSIVE METABOLIC 64035 CHLORIDE 104 mmol/L 05/01 Unknown COMPREHENSIVE METABOLIC 41825 Bili Total 0.7 mg/dL 05/01 Unknown COMPREHENSIVE METABOLIC 52421 ALK PHOS 58 U/L 2017 Unknown COMPREHENSIVE METABOLIC 31825 SODIUM 139 mmol/L 05/01 Unknown COMPREHENSIVE METABOLIC 27434 CREATININE 0.99 mg/dL 10/2017 Unknown COMPREHENSIVE METABOLIC 52612 CALCIUM 9.5 mg/dL 2017 Unknown COMPREHENSIVE METABOLIC 93484 POTASSIUM 4.3 mmol/L 05/01 Unknown COMPREHENSIVE METABOLIC 82727 Total Protein 6.7 g/dL Unknown COMPREHENSIVE METABOLIC 05443 Glucose 110 mg/dL 2017 Unknown COMPREHENSIVE METABOLIC 70292 Bicarbonate 27 mmol/L 10/2017 Unknown COMPREHENSIVE METABOLIC 82021 AGAP 8 mmol/L 2017 Unknown PSA EQUIMOLAR NITHIN 86331 PSA Total 1.10 ng/mL 8 Unknown THYROID STIMULATING HORMONE 93978 TSH 0.673 uIU/mL 05/01/2017 Unknown GLYCOSYLATED HEMOGLOBIN TEST 52399 Hgb A1c 29416-0 5.8 % 1 03/08/2015 Unknown MEAN GLUC 7677391 Calc Mean Gluc 120 mg/dL 01/07/2016 Unkn own FREE T4 18345 T4 Free 1.13 ng/dL 01/04/2016 Unknown THYROID STIMULATING HORMONE 89354 TSH 0.875 uIU/mL 01/04/2016 Unknown COMPREHENSIVE METABOLIC 29543 AST 20 U/L 2015 Unknown COMPREHENSIVE METABOLIC 00883 ALT 20 U/L 2015 Unknown COMPREHENSIVE METABOLIC 55990 BUN 14 mg/dL 2015 Unknown COMPREHENSIVE METABOLIC 67310 ALBUMIN 4.4 g/dL 2015 Unknown COMPREHENSIVE METABOLIC 60510 CHLORIDE 103 mmol/L 01/03 Unknown COMPREHENSIVE METABOLIC 95673 Bili Total 0.5 mg/dL 01/03 Unknown COMPREHENSIVE METABOLIC 03811 ALK PHOS 53 U/L 2015 Unknown COMPREHENSIVE METABOLIC 13896 SODIUM 137 mmol/L 01/03 Unknown COMPREHENSIVE METABOLIC 06466 CREATININE 0.98 mg/dL 12/24 Unknown COMPREHENSIVE METABOLIC 51005 CALCIUM 9.6 mg/dL 2015 Unknown COMPREHENSIVE METABOLIC 13342 POTASSIUM 4.5 mmol/L 01/03 Unknown COMPREHENSIVE METABOLIC 09240 Total Protein 7.0 g/dL Unknown COMPREHENSIVE METABOLIC 93475 Glucose 117 mg/dL 2015 Unknown COMPREHENSIVE METABOLIC 20070 Bicarbonate 26 mmol/L 12/24 Unknown COMPREHENSIVE METABOLIC 53486 AGAP 8 mmol/L 2015 Unknown COMPLETE BLOOD COUNT 9435016 WBC 6.2 10e9/L 01/04/20 16 Unknown COMPLETE BLOOD COUNT 4116626 RBC 4.55 10e12/L 2015 Unknown COMPLETE BLOOD COUNT 3319145 HEMOGLOBIN 15.0 g/dL 01/04/20 16 Unknown COMPLETE BLOOD COUNT 8628964 HEMATOCRIT 43.8 % 01/04/20 16 Unknown COMPLETE BLOOD COUNT 9804322 MCV 96.3 fL 6 Unknown COMPLETE BLOOD COUNT 8868061 MCH 33.0 pg 6 Unknown COMPLETE BLOOD COUNT 7189142 MCHC 34.2 g/dL 6 Unknown COMPLETE BLOOD COUNT 0208595 PLATELET COUNT 259 10e9/L 12/2015 Unknown COMPLETE BLOOD COUNT 7757606 Mean Plt Volume 10.8 fL 12/2015 Unknown COMPLETE BLOOD COUNT 4030441 Neut Auto 62.4 % 6 Unknown COMPLETE BLOOD COUNT 8616499 Lymph Auto 25.9 % 01/04/20 16 Unknown COMPLETE BLOOD COUNT 7993396 [place] Auto 6.8 % 6 Unknown COMPLETE BLOOD COUNT 7133429 RDW 13.4 % 6 Unknown COMPLETE BLOOD COUNT 1741037 Eos Auto 4.9 % 6 Unknown COMPLETE BLOOD COUNT [id number] Baso Auto 0.0 % 6 Unknown COMPLETE BLOOD COUNT [id number] Neutrophil Abs 3.87 10e9/L Unknown COMPLETE BLOOD COUNT [id number] Lymphocyte Abs 1.61 10e9/L Unknown COMPLETE BLOOD COUNT [id number] Monocyte Abs 0.42 10e9/L 12/24 Unknown COMPLETE BLOOD COUNT [id number] Eosinophil Abs 0.30 10e9/L Unknown COMPLETE BLOOD COUNT [id number] RDW-SD 46.2 fL 6 Unknown COMPLETE BLOOD COUNT [id number] Basophil Abs 0.00 10e9/L 12/24 Unknown PSA EQUIMOLAR NITHIN 61261 PSA Total 1.14 ng/mL 6 Unknown GFR CALC [id number] GFR Non Afr Amr >60 mL/min 01/04/2016 Un known GFR CALC [id number] GFR Afr Amr >60 mL/min 01/04/2016 Unknow n LIPID GROUP 51595 Cholesterol 172 mg/dL 01/04/2016 Unkno wn LIPID GROUP 95142 Triglyceride 156 mg/dL 01/04/2016 Unkn own LIPID GROUP 48538 HDL CHOLESTEROL 42 mg/dL 01/04/2016 U nknown LIPID GROUP 36660 Chol/HDL Ratio 4.10 ratio 01/04/2016 U nknown LIPID GROUP 60985 NON-HDL Chol 130 mg/dL 01/04/2016 Unkn own LIPID GROUP 69619 LDL Cholesterol 99 mg/dL 01/04/2016 U nknown GLYCOSYLATED HEMOGLOBIN TEST 12165 A1C HPLC 41141-9 5.8 % 1 04/10/2014 Unknown COMPLETE BLOOD COUNT [id number] WBC 6.0 10e9/L 02/03/20 15 Unknown COMPLETE BLOOD COUNT [id number] RBC 4.39 10e12/L 2014 Unknown COMPLETE BLOOD COUNT [id number] HGB 14.3 g/dL 5 Unknown COMPLETE BLOOD COUNT [id number] HCT DET 41.7 % 5 Unknown COMPLETE BLOOD COUNT [id number] MCV 95.0 fL 5 Unknown COMPLETE BLOOD COUNT [id number] MCH 32.6 pg 5 Unknown COMPLETE BLOOD COUNT [id number] MCHC 34.3 g/dL 5 Unknown COMPLETE BLOOD COUNT [id number] PLT 272 10e9/L 02/03/20 15 Unknown COMPLETE BLOOD COUNT [id number] MPV 11.1 fL 5 Unknown COMPLETE BLOOD COUNT [id number] GARY % 62.7 % 5 Unknown COMPLETE BLOOD COUNT [id number] LY % 25.2 % 5 Unknown COMPLETE BLOOD COUNT [id number] MON % 7.9 % 5 Unknown COMPLETE BLOOD COUNT [id number] EOS % 4.0 % 5 Unknown COMPLETE BLOOD COUNT [id number] BASO % 0.2 % 5 Unknown COMPLETE BLOOD COUNT [id number] RDW 13.2 % 5 Unknown COMPLETE BLOOD COUNT [id number] ABS GARY 3.76 10e9/L 015 Unknown COMPLETE BLOOD COUNT [id number] ABS LYMPH 1.51 10e9/L 015 Unknown COMPLETE BLOOD COUNT [id number] ABS MONO 0.47 10e9/L 015 Unknown COMPLETE BLOOD COUNT [id number] ABS EOS 0.24 10e9/L 015 Unknown COMPLETE BLOOD COUNT [id number] ABS BASO 0.01 10e9/L 015 Unknown COMPLETE BLOOD COUNT [id number] RDW-SD 44.7 fL 5 Unknown GFR CALC 9421596 GFR AA >60 ML/MIN 02/02/2015 Unknown GFR CALC 3658563 GFR NON-AA >60 ML/MIN 02/02/2015 Unknown THYROID STIMULATING HORMONE 67460 TSH 0.970 uIU/ML 02/02/2015 Unknown LIPID GROUP 06340 HDL TEST 41 MG/DL 02/02/2015 Unknown LIPID GROUP 91704 TRIG 151 MG/DL 02/02/2015 Unknown LIPID GROUP 78130 TEST LDL 122 MG/DL 02/02/2015 Unknown LIPID GROUP 27969 CHOL 193 MG/DL 02/02/2015 Unknown LIPID GROUP 82674 RCHOL/HDL 4.71 RATIO 02/02/2015 Unknow n LIPID GROUP 69975 NON-HDL CH 152 MG/DL 02/02/2015 Unknow n PSA EQUIMOLAR NITHIN 68962 PSA EQ 0.76 NG/ML 5 Unknown FREE T4 66777 FREE T4 0.93 NG/DL 02/02/2015 Unknown COMPREHENSIVE METABOLIC 06085 AST 21 U/L 2014 Unknown COMPREHENSIVE METABOLIC 99844 ALT 21 IU/L 2014 Unknown COMPREHENSIVE METABOLIC 94760 BUN 15 MG/DL 2014 Unknown COMPREHENSIVE METABOLIC 48345 ALBUMIN 4.5 GM/DL 2014 Unknown COMPREHENSIVE METABOLIC 84167 CHLORIDE 104 MMOL/L 02/02 Unknown COMPREHENSIVE METABOLIC 03284 BILI TOT 1.0 MG/DL 2014 Unknown COMPREHENSIVE METABOLIC 39466 ALK PHOS 71 U/L 2014 Unknown COMPREHENSIVE METABOLIC 44679 SODIUM 136 MMOL/L 02/02 Unknown COMPREHENSIVE METABOLIC 98156 CREATININE 0.94 MG/DL 01/23 Unknown COMPREHENSIVE METABOLIC 76321 CALCIUM 9.8 MG/DL 2014 Unknown COMPREHENSIVE METABOLIC 78608 POTASSIUM 4.3 MMOL/L 02/02 Unknown COMPREHENSIVE METABOLIC 84788 PROT TOT 6.9 GM/DL 2014 Unknown COMPREHENSIVE METABOLIC 62439 Glucose 113 MG/DL 2014 Unknown COMPREHENSIVE METABOLIC 29990 BICARB 26 MMOL/L 2014 Unknown COMPREHENSIVE METABOLIC 74945 ANION GAP 6 MEQ/L 2014 Unknown ANTI STREPTOLYSIN O TITER(ASO) 58313 ASO 57 IU/ML 06/19/2014 Unknown RA FACTOR 94052 RA FACTOR <20.0 IU/ML 06/15/2014 Unknown FREE T4 24183 FREE T4 1.19 NG/DL 06/15/2014 Unknown ANTINUCLEAR ANTIBODY SCREEN 68924 SHANNON SCR <1:80 Unknown ERYTHROCYTE SEDIMENTATION RATE 70462 ESR 2 MM/HR 06/14/2014 Unknown COMPLETE BLOOD COUNT 7164170 WBC 6.7 10e9/L 06/15/19 15 Unknown COMPLETE BLOOD COUNT [id number] RBC 4.86 10e12/L 2014 Unknown COMPLETE BLOOD COUNT 3262540 HGB 15.9 g/dL 5 Unknown COMPLETE BLOOD COUNT 3773244 HCT DET 45.0 % 5 Unknown COMPLETE BLOOD COUNT 8519984 MCV 92.6 fL 5 Unknown COMPLETE BLOOD COUNT 7496827 MCH 32.7 pg 5 Unknown COMPLETE BLOOD COUNT 6713755 MCHC 35.3 g/dL 5 Unknown COMPLETE BLOOD COUNT 3390842 PLT 299 10e9/L 06/15/19 15 Unknown COMPLETE BLOOD COUNT 3788818 MPV 10.0 fL 5 Unknown COMPLETE BLOOD COUNT 1843237 GARY % 63.8 % 5 Unknown COMPLETE BLOOD COUNT 8266754 LY % 18.3 % 5 Unknown COMPLETE BLOOD COUNT [id number] MON % 12.1 % 5 Unknown COMPLETE BLOOD COUNT [id number] EOS % 5.7 % 5 Unknown COMPLETE BLOOD COUNT [id number] BASO % 0.1 % 5 Unknown COMPLETE BLOOD COUNT 3130369 RDW 13.3 % 5 Unknown COMPLETE BLOOD COUNT 1978990 ABS GARY 4.27 10e9/L 015 Unknown COMPLETE BLOOD COUNT 3069893 ABS LYMPH 1.23 10e9/L 015 Unknown COMPLETE BLOOD COUNT 6758632 ABS MONO 0.81 10e9/L 015 Unknown COMPLETE BLOOD COUNT 7045301 ABS EOS 0.38 10e9/L 015 Unknown COMPLETE BLOOD COUNT 7442286 ABS BASO 0.01 10e9/L 015 Unknown COMPLETE BLOOD COUNT 6344819 RDW-SD 44.3 fL 5 Unknown URIC ACID 52057 URIC ACID 7.6 MG/DL 06/14/[place] [address] SYP AB NR 06/14/2014 Unknown THYROID STIMULATING HORMONE 49367 TSH 0.825 uIU/ML 06/14/2014 Unknown GLYCOSYLATED HEMOGLOBIN TEST 04235 A1C HPLC 51085-3 6.0 % 0 06/14/2014 Unknown VITAMIN B 12 FOLIC ACID 18989|15789 VIT B 12 751 PG/ML 05/25 Unknown VITAMIN B 12 FOLIC ACID 26531|91710 FOLIC ACID 23.5 NG/ML Unknown GFR CALC 9012760 GFR AA >60 ML/MIN 06/14/2014 Unknown GFR CALC 0497953 GFR NON-AA >60 ML/MIN 06/14/2014 Unknown C-REACTIVE PROTEIN (CRP) QUANT 79934 CRP 0.1 MG/DL 06/14/2014 Unknown COMPREHENSIVE METABOLIC 42242 AST 19 U/L 2014 Unknown COMPREHENSIVE METABOLIC 90311 ALT 16 IU/L 2014 Unknown COMPREHENSIVE METABOLIC 64173 BUN 13 MG/DL 2014 Unknown COMPREHENSIVE METABOLIC 59982 ALBUMIN 5.1 GM/DL 2014 Unknown COMPREHENSIVE METABOLIC 53086 CHLORIDE 92 MMOL/L 2014 Unknown COMPREHENSIVE METABOLIC 49629 BILI TOT 0.6 MG/DL 2014 Unknown COMPREHENSIVE METABOLIC 83074 ALK PHOS 61 U/L 2014 Unknown COMPREHENSIVE METABOLIC 55379 SODIUM 128 MMOL/L 06/14 Unknown COMPREHENSIVE METABOLIC 01417 CREATININE 1.00 MG/DL 05/25 Unknown COMPREHENSIVE METABOLIC 73450 CALCIUM 10.7 MG/DL 06/14 Unknown COMPREHENSIVE METABOLIC 78417 POTASSIUM 4.1 MMOL/L 06/14 Unknown COMPREHENSIVE METABOLIC 93525 PROT TOT 7.6 GM/DL 2014 Unknown COMPREHENSIVE METABOLIC 83846 Glucose 106 MG/DL 2014 Unknown COMPREHENSIVE METABOLIC 32853 BICARB 29 MMOL/L 2014 Unknown COMPREHENSIVE METABOLIC 37882 ANION GAP 7 MEQ/L 2014 Unknown COMPREHENSIVE METABOLIC 44098 AST 21 U/L 2014 Unknown COMPREHENSIVE METABOLIC 36256 ALT 26 IU/L 2014 Unknown COMPREHENSIVE METABOLIC 11321 BUN 16 MG/DL 2014 Unknown COMPREHENSIVE METABOLIC 53698 ALBUMIN 4.6 GM/DL 2014 Unknown COMPREHENSIVE METABOLIC 99070 CHLORIDE 99 MMOL/L 2014 Unknown COMPREHENSIVE METABOLIC 22309 BILI TOT 0.5 MG/DL 2014 Unknown COMPREHENSIVE METABOLIC 62402 ALK PHOS 57 U/L 2014 Unknown COMPREHENSIVE METABOLIC 68581 SODIUM 134 MMOL/L 03/09 Unknown COMPREHENSIVE METABOLIC 15200 CREATININE 0.91 MG/DL 02/23 Unknown COMPREHENSIVE METABOLIC 24471 CALCIUM 9.9 MG/DL 2014 Unknown COMPREHENSIVE METABOLIC 10982 POTASSIUM 4.3 MMOL/L 03/09 Unknown COMPREHENSIVE METABOLIC 46982 PROT TOT 7.0 GM/DL 2014 Unknown COMPREHENSIVE METABOLIC 21713 Glucose 91 MG/DL 2014 Unknown COMPREHENSIVE METABOLIC 22758 BICARB 30 MMOL/L 2014 Unknown COMPREHENSIVE METABOLIC 01745 ANION GAP 5 MEQ/L 2014 Unknown GLYCOSYLATED HEMOGLOBIN TEST 69930 A1C HPLC 19702-7 6.4 % 0 03/09/2014 Unknown GFR CALC 4067208 GFR AA >60 ML/MIN 03/09/2014 Unknown GFR CALC 5766650 GFR NON-AA >60 ML/MIN 03/09/2014 Unknown GLYCOSYLATED HEMOGLOBIN TEST 69810 A1C HPLC 50724-2 6.0 % 0 11/22/2013 Unknown THYROID STIMULATING HORMONE 20378 TSH 0.643 uIU/ML 11/18/2013 Unknown PSA EQUIMOLAR NITHIN 46907 PSA EQ 0.75 NG/ML 4 Unknown COMPREHENSIVE METABOLIC 51794 AST 21 U/L 2013 Unknown COMPREHENSIVE METABOLIC 18784 ALT 22 IU/L 2013 Unknown COMPREHENSIVE METABOLIC 62000 BUN 16 MG/DL 2013 Unknown COMPREHENSIVE METABOLIC 32684 ALBUMIN 4.6 GM/DL 2013 Unknown COMPREHENSIVE METABOLIC 81764 CHLORIDE 97 MMOL/L 2013 Unknown COMPREHENSIVE METABOLIC 89174 BILI TOT 0.8 MG/DL 2013 Unknown COMPREHENSIVE METABOLIC 29533 ALK PHOS 68 U/L 2013 Unknown COMPREHENSIVE METABOLIC 46737 SODIUM 132 MMOL/L 11/18 Unknown COMPREHENSIVE METABOLIC 87098 CREATININE 0.95 MG/DL 10/25 Unknown COMPREHENSIVE METABOLIC 50797 CALCIUM 10.1 MG/DL 11/18 Unknown COMPREHENSIVE METABOLIC 48631 POTASSIUM 4.2 MMOL/L 11/18 Unknown COMPREHENSIVE METABOLIC 90954 PROT TOT 7.2 GM/DL 2013 Unknown COMPREHENSIVE METABOLIC 69808 Glucose 125 MG/DL 2013 Unknown COMPREHENSIVE METABOLIC 83904 BICARB 26 MMOL/L 2013 Unknown COMPREHENSIVE METABOLIC 91627 ANION GAP 9 MEQ/L 2013 Unknown COMPLETE BLOOD COUNT 7445697 WBC 7.3 10e9/L 11/19/19 14 Unknown COMPLETE BLOOD COUNT 3839199 RBC 4.68 10e12/L 2013 Unknown COMPLETE BLOOD COUNT 6730134 HGB 15.4 g/dL 4 Unknown COMPLETE BLOOD COUNT 1221735 HCT DET 43.4 % 4 Unknown COMPLETE BLOOD COUNT 2861643 MCV 92.7 fL 4 Unknown COMPLETE BLOOD COUNT 2113662 MCH 32.9 pg 4 Unknown COMPLETE BLOOD COUNT 9996883 MCHC 35.5 g/dL 4 Unknown COMPLETE BLOOD COUNT 7601220 PLT 286 10e9/L 11/19/19 14 Unknown COMPLETE BLOOD COUNT 2889245 MPV 10.8 fL 4 Unknown COMPLETE BLOOD COUNT 3229890 GARY % 61.6 % 4 Unknown COMPLETE BLOOD COUNT 9255128 LY % 25.6 % 4 Unknown COMPLETE BLOOD COUNT 5492649 MON % 8.7 % 4 Unknown COMPLETE BLOOD COUNT 2892784 EOS % 4.0 % 4 Unknown COMPLETE BLOOD COUNT 5043297 BASO % 0.1 % 4 Unknown COMPLETE BLOOD COUNT 4854348 RDW 12.9 % 4 Unknown COMPLETE BLOOD COUNT 7794276 ABS GARY 4.50 10e9/L 014 Unknown COMPLETE BLOOD COUNT 8245658 ABS LYMPH 1.87 10e9/L 014 Unknown COMPLETE BLOOD COUNT 4051413 ABS MONO 0.64 10e9/L 014 Unknown COMPLETE BLOOD COUNT 9969744 ABS EOS 0.29 10e9/L 014 Unknown COMPLETE BLOOD COUNT 2087712 ABS BASO 0.01 10e9/L 014 Unknown COMPLETE BLOOD COUNT 2385024 RDW-SD 42.9 fL 4 Unknown LIPID GROUP 28686 HDL TEST 52 MG/DL 11/18/2013 Unknown LIPID GROUP 59440 TRIG 100 MG/DL 11/18/2013 Unknown LIPID GROUP 50919 TEST LDL 110 MG/DL 11/18/2013 Unknown LIPID GROUP 88388 CHOL 182 MG/DL 11/18/2013 Unknown LIPID GROUP 62949 RCHOL/HDL 3.50 RATIO 11/18/2013 Unknow n LIPID GROUP 41840 NON-HDL CH 130 MG/DL 11/18/2013 Unknow n FREE T4 13499 FREE T4 1.28 NG/DL 11/18/2013 Unknown GFR CALC 0093733 GFR AA >60 ML/MIN 11/18/2013 Unknown GFR CALC 7979882 GFR NON-AA >60 ML/MIN 11/18/2013 Unknown COMPREHENSIVE METABOLIC 02058 AST 21 U/L 2012 Unknown COMPREHENSIVE METABOLIC 48767 ALT 20 IU/L 2012 Unknown COMPREHENSIVE METABOLIC 51745 BUN 12 MG/DL 2012 Unknown COMPREHENSIVE METABOLIC 06804 ALBUMIN 4.6 GM/DL 2012 Unknown COMPREHENSIVE METABOLIC 17327 CHLORIDE 105 MMOL/L 11/03 Unknown COMPREHENSIVE METABOLIC 59866 BILI TOT 0.5 MG/DL 2012 Unknown COMPREHENSIVE METABOLIC 96176 ALK PHOS 53 U/L 2012 Unknown COMPREHENSIVE METABOLIC 03122 SODIUM 138 MMOL/L 11/03 Unknown COMPREHENSIVE METABOLIC 50830 CREATININE 0.93 MG/DL 10/24 Unknown COMPREHENSIVE METABOLIC 13451 CALCIUM 9.7 MG/DL 2012 Unknown COMPREHENSIVE METABOLIC 60297 POTASSIUM 4.3 MMOL/L 11/03 Unknown COMPREHENSIVE METABOLIC 96894 PROT TOT 7.0 GM/DL 2012 Unknown COMPREHENSIVE METABOLIC 13654 Glucose 117 MG/DL 2012 Unknown COMPREHENSIVE METABOLIC 59456 BICARB 25 MMOL/L 2012 Unknown COMPREHENSIVE METABOLIC 24040 ANION GAP 8 MEQ/L 2012 Unknown GFR CALC 9138417 GFR AA >60 ML/MIN 11/03/2012 Unknown GFR CALC 3722172 GFR NON-AA >60 ML/MIN 11/03/2012 Unknown THYROID STIMULATING HORMONE 01523 TSH 1.218 uIU/ML 11/03/2012 Unknown URIC ACID 98628 URIC ACID 7.6 MG/DL 11/03/2012 Unknown COMPLETE BLOOD COUNT [id number] WBC 5.0 10e9/L 11/04/19 13 Unknown COMPLETE BLOOD COUNT 6711642 RBC 4.70 10e12/L 2012 Unknown COMPLETE BLOOD COUNT 3274618 HGB 15.6 g/dL 3 Unknown COMPLETE BLOOD COUNT 0394330 HCT DET 44.2 % 3 Unknown COMPLETE BLOOD COUNT 1300085 MCV 94.0 fL 3 Unknown COMPLETE BLOOD COUNT 9926039 MCH 33.2 pg 3 Unknown COMPLETE BLOOD COUNT 0859950 MCHC 35.3 g/dL 3 Unknown COMPLETE BLOOD COUNT 6227514 PLT 248 10e9/L 11/04/19 13 Unknown COMPLETE BLOOD COUNT 9124047 MPV 10.9 fL 3 Unknown COMPLETE BLOOD COUNT 1093890 GARY % 58.3 % 3 Unknown COMPLETE BLOOD COUNT 2387374 LY % 27.9 % 3 Unknown COMPLETE BLOOD COUNT 3696611 MON % 7.0 % 3 Unknown COMPLETE BLOOD COUNT 1736740 EOS % 6.6 % 3 Unknown COMPLETE BLOOD COUNT 5016058 BASO % 0.2 % 3 Unknown COMPLETE BLOOD COUNT 5528591 RDW 13.2 % 3 Unknown COMPLETE BLOOD COUNT 3151703 ABS GARY 2.92 10e9/L 013 Unknown COMPLETE BLOOD COUNT 5357435 ABS LYMPH 1.40 10e9/L 013 Unknown COMPLETE BLOOD COUNT 3337242 ABS MONO 0.35 10e9/L 013 Unknown COMPLETE BLOOD COUNT 2481855 ABS EOS 0.33 10e9/L 013 Unknown COMPLETE BLOOD COUNT 0174042 ABS BASO 0.01 10e9/L 013 Unknown COMPLETE BLOOD COUNT 8796850 RDW-SD 44.1 fL 3 Unknown HERPE1/2MG 66145|42857|95714 HSV G1 EIA 1.78 INDEX 3 Unknown HERPE1/2MG 02800|29889|94593 HSVM1/2EIA 0.15 02/26/2012 Unknown HERPE1/2MG 33813|80490|31084 HSV G2 EIA 10.14 INDEX 02/25/19 13 Unknown COMPLETE BLOOD COUNT 5054367 WBC 9.4 10e9/L 02/24/19 13 Unknown COMPLETE BLOOD COUNT [id number] RBC 4.54 10e12/L 2012 Unknown COMPLETE BLOOD COUNT 7173574 HGB 14.9 g/dL 3 Unknown COMPLETE BLOOD COUNT 9817847 HCT DET 43.0 % 3 Unknown COMPLETE BLOOD COUNT 7040466 MCV 94.7 fL 3 Unknown COMPLETE BLOOD COUNT 2861180 MCH 32.8 pg 3 Unknown COMPLETE BLOOD COUNT 9385781 MCHC 34.7 g/dL 3 Unknown COMPLETE BLOOD COUNT 4119970 PLT 251 10e9/L 02/24/19 13 Unknown COMPLETE BLOOD COUNT 2290971 MPV 11.1 fL 3 Unknown COMPLETE BLOOD COUNT 6869840 GARY % 75.0 % 3 Unknown COMPLETE BLOOD COUNT 7009133 LY % 15.7 % 3 Unknown COMPLETE BLOOD COUNT 5417170 MON % 6.8 % 3 Unknown COMPLETE BLOOD COUNT 6382275 EOS % 2.3 % 3 Unknown COMPLETE BLOOD COUNT 0007246 BASO % 0.2 % 3 Unknown COMPLETE BLOOD COUNT 2506529 RDW 13.2 % 3 Unknown COMPLETE BLOOD COUNT 6905834 ABS GARY 7.05 10e9/L 013 Unknown COMPLETE BLOOD COUNT [id number] ABS LYMPH 1.48 10e9/L 013 Unknown COMPLETE BLOOD COUNT 6702791 ABS MONO 0.64 10e9/L 013 Unknown COMPLETE BLOOD COUNT 9959787 ABS EOS 0.22 10e9/L 013 Unknown COMPLETE BLOOD COUNT 1116116 ABS BASO 0.02 10e9/L 013 Unknown COMPLETE BLOOD COUNT 1733487 RDW-SD 44.3 fL 3 Unknown COMPREHENSIVE METABOLIC 54136 AST 21 U/L 2012 Unknown COMPREHENSIVE METABOLIC 03181 ALT 22 IU/L 2012 Unknown COMPREHENSIVE METABOLIC 75447 BUN 12 MG/DL 2012 Unknown COMPREHENSIVE METABOLIC 14647 ALBUMIN 4.9 GM/DL 2012 Unknown COMPREHENSIVE METABOLIC 26676 CHLORIDE 102 MMOL/L 02/24 Unknown COMPREHENSIVE METABOLIC 78671 BILI TOT 0.6 MG/DL 2012 Unknown COMPREHENSIVE METABOLIC 92422 ALK PHOS 59 U/L 2012 Unknown COMPREHENSIVE METABOLIC 79868 SODIUM 137 MMOL/L 02/24 Unknown COMPREHENSIVE METABOLIC 39273 CREATININE 0.92 MG/DL 03/2012 Unknown COMPREHENSIVE METABOLIC 67636 CALCIUM 9.7 MG/DL 2012 Unknown COMPREHENSIVE METABOLIC 06401 POTASSIUM 4.1 MMOL/L 02/24 Unknown COMPREHENSIVE METABOLIC 17259 PROT TOT 6.9 GM/DL 2012 Unknown COMPREHENSIVE METABOLIC 22431 Glucose 127 MG/DL 2012 Unknown COMPREHENSIVE METABOLIC 37571 BICARB 25 MMOL/L 2012 Unknown COMPREHENSIVE METABOLIC 99239 ANION GAP 10 MEQ/L 2012 Unknown GFR CALC 2404853 GFR AA >60 ML/MIN 02/25/2012 Unknown GFR CALC 6096628 GFR NON-AA >60 ML/MIN 02/25/2012 Unknown TULAREM AB 3939610 TULAREM AB <1:20 09/23/2011 Unknown [place] FEVER 25989Q9 IGG RMSF <1:16 0 09/19/2011 Unknown [employer] [place] FEVER 64388I8 IGM RMSF <1:10 0 09/19/2011 Unknown E CHAFF AB 2234461 IGG E CHFF <1:16 09/19/2011 Unknown E CHAFF AB 3397646 IGM E CHFF <1:10 09/19/2011 Unknown GLYCOSYLATED HEMOGLOBIN TEST 16337 A1C HPLC 58529-0 5.4 % 0 09/18/2011 Unknown GFR CALC 4208138 GFR AA >60 ML/MIN 09/17/2011 Unknown GFR CALC 1776059 GFR NON-AA >60 ML/MIN 09/17/2011 Unknown VITAMIN B 12 FOLIC ACID 58141|24326 VIT B 12 405 PG/ML 08/24 Unknown VITAMIN B 12 FOLIC ACID 14323|85019 FOLIC ACID 17.5 NG/ML Unknown COMPREHENSIVE METABOLIC 56292 AST 19 U/L 2011 Unknown COMPREHENSIVE METABOLIC 80500 ALT 19 IU/L 2011 Unknown COMPREHENSIVE METABOLIC 52053 BUN 12 MG/DL 2011 Unknown COMPREHENSIVE METABOLIC 14609 ALBUMIN 4.9 GM/DL 2011 Unknown COMPREHENSIVE METABOLIC 94699 CHLORIDE 98 MMOL/L 2011 Unknown COMPREHENSIVE METABOLIC 69634 BILI TOT 1.2 MG/DL 2011 Unknown COMPREHENSIVE METABOLIC 22387 ALK PHOS 60 U/L 2011 Unknown COMPREHENSIVE METABOLIC 96003 SODIUM 133 MMOL/L 09/16 Unknown COMPREHENSIVE METABOLIC 51007 CREATININE 1.12 MG/DL 08/24 Unknown COMPREHENSIVE METABOLIC 57796 CALCIUM 10.1 MG/DL 09/16 Unknown COMPREHENSIVE METABOLIC 88814 POTASSIUM 4.1 MMOL/L 09/16 Unknown COMPREHENSIVE METABOLIC 45655 PROT TOT 7.6 GM/DL 2011 Unknown COMPREHENSIVE METABOLIC 16609 Glucose 121 MG/DL 2011 Unknown COMPREHENSIVE METABOLIC 46655 BICARB 25 MMOL/L 2011 Unknown COMPREHENSIVE METABOLIC 08912 ANION GAP 10 MEQ/L 2011 Unknown COMPLETE BLOOD COUNT 34143 WBC 5.8 10e9/L 09/17/19 12 Unknown COMPLETE BLOOD COUNT 57479 RBC 5.01 10e12/L 2011 Unknown COMPLETE BLOOD COUNT 23921 HGB 16.4 g/dL 2 Unknown COMPLETE BLOOD COUNT 85599 HCT DET 46.7 % 2 Unknown COMPLETE BLOOD COUNT 11838 MCV 93.2 fL 2 Unknown COMPLETE BLOOD COUNT 49074 MCH 32.7 pg 2 Unknown COMPLETE BLOOD COUNT 85908 MCHC 35.1 g/dL 2 Unknown COMPLETE BLOOD COUNT 37065 PLT 275 10e9/L 09/17/19 12 Unknown COMPLETE BLOOD COUNT 45634 MPV 10.8 fL 2 Unknown COMPLETE BLOOD COUNT 46150 GARY % 47.1 % 2 Unknown COMPLETE BLOOD COUNT 58623 LY % 37.2 % 2 Unknown COMPLETE BLOOD COUNT 60160 MON % 9.5 % 2 Unknown COMPLETE BLOOD COUNT 22710 EOS % 5.9 % 2 Unknown COMPLETE BLOOD COUNT 25939 BASO % 0.3 % 2 Unknown COMPLETE BLOOD COUNT 06861 RDW 13.0 % 2 Unknown COMPLETE BLOOD COUNT 04776 ABS GARY 2.73 10e9/L 012 Unknown COMPLETE BLOOD COUNT 01071 ABS LYMPH 2.16 10e9/L 012 Unknown COMPLETE BLOOD COUNT 34713 ABS MONO 0.55 10e9/L 012 Unknown COMPLETE BLOOD COUNT 78400 ABS EOS 0.34 10e9/L 012 Unknown COMPLETE BLOOD COUNT 14649 ABS BASO 0.02 10e9/L 012 Unknown COMPLETE BLOOD COUNT 75958 RDW-SD 43.1 fL 2 Unknown LIPID GROUP 38886 HDL TEST 39 MG/DL 09/17/2011 Unknown LIPID GROUP 19514 TRIG 195 MG/DL 09/17/2011 Unknown LIPID GROUP 36894 TEST LDL 98 MG/DL 09/17/2011 Unknown LIPID GROUP 35633 CHOL 176 MG/DL 09/17/2011 Unknown LIPID GROUP 21983 RCHOL/HDL 4.51 RATIO 09/17/2011 Unknow n THYROID STIMULATING HORMONE 10125 TSH 2.892 uIU/ML 08/29/2010 Unknown COMPLETE BLOOD COUNT 57782 WBC 6.5 10e9/L 08/30/19 11 Unknown COMPLETE BLOOD COUNT 64527 RBC 4.83 10e12/L 2010 Unknown COMPLETE BLOOD COUNT 48727 HGB 15.9 g/dL 1 Unknown COMPLETE BLOOD COUNT 43604 HCT DET 44.4 % 1 Unknown COMPLETE BLOOD COUNT 41237 MCV 91.9 fL 1 Unknown COMPLETE BLOOD COUNT 64435 MCH 32.9 pg 1 Unknown COMPLETE BLOOD COUNT 60026 MCHC 35.8 g/dL 1 Unknown COMPLETE BLOOD COUNT 60336 PLT 273 10e9/L 08/30/19 11 Unknown COMPLETE BLOOD COUNT 98714 MPV 10.1 fL 1 Unknown COMPLETE BLOOD COUNT 21562 GARY % 45.3 % 1 Unknown COMPLETE BLOOD COUNT 69872 LY % 39.3 % 1 Unknown COMPLETE BLOOD COUNT 84531 MON % 9.8 % 1 Unknown COMPLETE BLOOD COUNT 85321 EOS % 5.4 % 1 Unknown COMPLETE BLOOD COUNT 82151 BASO % 0.2 % 1 Unknown COMPLETE BLOOD COUNT 35954 RDW 13.2 % 1 Unknown COMPLETE BLOOD COUNT 66124 ABS GARY 2.94 10e9/L 011 Unknown COMPLETE BLOOD COUNT 95541 ABS LYMPH 2.55 10e9/L 011 Unknown COMPLETE BLOOD COUNT 41092 ABS MONO 0.64 10e9/L 011 Unknown COMPLETE BLOOD COUNT 82192 ABS EOS 0.35 10e9/L 011 Unknown COMPLETE BLOOD COUNT 53834 ABS BASO 0.01 10e9/L 011 Unknown COMPLETE BLOOD COUNT 34311 RDW-SD 43.5 fL 1 Unknown FREE T4 36713 FREE T4 1.39 NG/DL 08/29/2010 Unknown LIPID GROUP 52389 HDL TEST 52 MG/DL 08/29/2010 Unknown LIPID GROUP 27179 TRIG 110 MG/DL 08/29/2010 Unknown LIPID GROUP 07407 TEST LDL 109 MG/DL 08/29/2010 Unknown LIPID GROUP 72478 CHOL 183 MG/DL 08/29/2010 Unknown LIPID GROUP 22208 RCHOL/HDL 3.52 RATIO 08/29/2010 Unknow n PSA EQUIMOLAR NITHIN 53924 PSA EQ 1.14 NG/ML 1 Unknown GFR CALC 4210777 GFR AA >60 ML/MIN 08/29/2010 Unknown GFR CALC 2039785 GFR NON-AA >60 ML/MIN 08/29/2010 Unknown COMPREHENSIVE METABOLIC 15795 AST 23 U/L 2010 Unknown COMPREHENSIVE METABOLIC 18415 ALT 19 IU/L 2010 Unknown COMPREHENSIVE METABOLIC 52724 BUN 12 MG/DL 2010 Unknown COMPREHENSIVE METABOLIC 66792 ALBUMIN 4.9 GM/DL 2010 Unknown COMPREHENSIVE METABOLIC 28927 CHLORIDE 95 MMOL/L 2010 Unknown COMPREHENSIVE METABOLIC 28065 BILI TOT 0.4 MG/DL 2010 Unknown COMPREHENSIVE METABOLIC 24715 ALK PHOS 59 U/L 2010 Unknown COMPREHENSIVE METABOLIC 71607 SODIUM 132 MMOL/L 08/29 Unknown COMPREHENSIVE METABOLIC 10139 CREATININE 0.96 MG/DL 08/2010 Unknown COMPREHENSIVE METABOLIC 69272 CALCIUM 10.6 MG/DL 08/29 Unknown COMPREHENSIVE METABOLIC 77423 POTASSIUM 4.0 MMOL/L 08/29 Unknown COMPREHENSIVE METABOLIC 30509 PROT TOT 8.0 GM/DL 2010 Unknown COMPREHENSIVE METABOLIC 17486 Glucose 105 MG/DL 2010 Unknown COMPREHENSIVE METABOLIC 27151 BICARB 22 MMOL/L 2010 Unknown COMPREHENSIVE METABOLIC 25068 ANION GAP 15 MEQ/L 2010 Unknown URIC ACID 27169 URIC ACID 6.7 MG/DL 12/12/2009 Unknown Procedures Procedure Codes Date ROUTINE VENIPUNCTURE CPT-4: 21417 04/18/2020 COMPREHEN METABOLIC PANEL CPT-4: 83170 04/18/2020 LIPID PANEL CPT-4: 09084 04/18/2020 A1C HPLC CPT-4: 82739 04/18/2020 PPPS, subseq visit CPT-4: G0439 10/12/2019 ROUTINE VENIPUNCTURE CPT-4: 53904 01/29/2018 COMPREHEN METABOLIC PANEL CPT-4: 27507 01/29/2018 LIPID PANEL CPT-4: 28805 01/29/2018 A1C HPLC CPT-4: 38954 01/29/2018 HEPATITIS C AB TEST CPT-4: 03903 01/29/2018 ROUTINE VENIPUNCTURE CPT-4: 68779 05/01/2017 ASSAY THYROID STIM HORMONE CPT-4: 29449 05/01/2017 COMPREHEN METABOLIC PANEL CPT-4: 49674 05/01/2017 COMPLETE CBC W/AUTO DIFF WBC CPT-4: 51988 05/01/2017 LIPID PANEL CPT-4: 67919 05/01/2017 A1C HPLC CPT-4: 83499 05/01/2017 ASSAY OF PSA TOTAL CPT-4: 35456 05/01/2017 ROUTINE VENIPUNCTURE CPT-4: 06960 01/04/2016 ASSAY OF FREE THYROXINE CPT-4: 01720 01/04/2016 ASSAY THYROID STIM HORMONE CPT-4: 58089 01/04/2016 COMPREHEN METABOLIC PANEL CPT-4: 82783 01/04/2016 COMPLETE CBC W/AUTO DIFF WBC CPT-4: 73024 01/04/2016 LIPID PANEL CPT-4: 23807 01/04/2016 ASSAY OF PSA TOTAL CPT-4: 70486 01/04/2016 A1C HPLC CPT-4: 62726 01/04/2016 ROUTINE VENIPUNCTURE CPT-4: 94441 02/02/2015 ASSAY OF FREE THYROXINE CPT-4: 56450 02/02/2015 ASSAY THYROID STIM HORMONE CPT-4: 83098 02/02/2015 COMPREHEN METABOLIC PANEL CPT-4: 12987 02/02/2015 COMPLETE CBC W/AUTO DIFF WBC CPT-4: 61364 02/02/2015 LIPID PANEL CPT-4: 51274 02/02/2015 ASSAY OF PSA TOTAL CPT-4: 56240 02/02/2015 A1C HPLC CPT-4: 43986 02/02/2015 THER/PROPH/DIAG INJ SC/IM CPT-4: 69728 07/19/2014 METHYLPREDNISOLONE 40 MG INJ CPT-4: J1030 07/19/2014 TRIAMCINOLONE ACET INJ NOS CPT-4: J3301 07/19/2014 ROUTINE VENIPUNCTURE CPT-4: 56460 06/14/2014 ASSAY OF FREE THYROXINE CPT-4: 33904 06/14/2014 ASSAY THYROID STIM HORMONE CPT-4: 26651 06/14/2014 COMPREHEN METABOLIC PANEL CPT-4: 73673 06/14/2014 COMPLETE CBC W/AUTO DIFF WBC CPT-4: 02181 06/14/2014 A1C HPLC CPT-4: 21473 06/14/2014 VITAMIN B 12 FOLIC ACID CPT-4: 35771|29937 06/14/2014 RBC SED RATE AUTOMATED CPT-4: 69816 06/14/2014 RHEUMATOID FACTOR QUANT CPT-4: 00116 06/14/2014 ANTINUCLEAR ANTIBODIES CPT-4: 70662 06/14/2014 ANTISTREPTOLYSIN O TITER CPT-4: 74624 06/14/2014 ASSAY OF BLOOD/URIC ACID CPT-4: 31206 06/14/2014 C-REACTIVE PROTEIN CPT-4: 28908 06/14/2014 ROUTINE VENIPUNCTURE CPT-4: 77914 03/09/2014 COMPREHEN METABOLIC PANEL CPT-4: 74149 03/09/2014 A1C HPLC CPT-4: 37501 03/09/2014 ROUTINE VENIPUNCTURE CPT-4: 06355 11/18/2013 ASSAY OF FREE THYROXINE CPT-4: 06582 11/18/2013 ASSAY THYROID STIM HORMONE CPT-4: 04361 11/18/2013 COMPREHEN METABOLIC PANEL CPT-4: 62482 11/18/2013 COMPLETE CBC W/AUTO DIFF WBC CPT-4: 36252 11/18/2013 LIPID PANEL CPT-4: 01746 11/18/2013 ASSAY OF PSA TOTAL CPT-4: 33914 11/18/2013 A1C HPLC CPT-4: 79020 11/18/2013 REMOVE FOREIGN BODY CPT-4: 72041 11/09/2013 OCCULT BLOOD FECES CPT-4: 55993 11/09/2013 THER/PROPH/DIAG INJ SC/IM CPT-4: 38176 11/24/2012 VITAMIN B12 INJECTION CPT-4: J3420 11/24/2012 COMPREHEN METABOLIC PANEL CPT-4: 25167 11/03/2012 COMPLETE CBC W/AUTO DIFF WBC CPT-4: 83610 11/03/2012 ASSAY THYROID STIM HORMONE CPT-4: 70650 11/03/2012 ASSAY OF BLOOD/URIC ACID CPT-4: 28380 11/03/2012 ROUTINE VENIPUNCTURE CPT-4: 76181 11/03/2012 ROUTINE VENIPUNCTURE CPT-4: 40826 02/25/2012 COMPREHEN METABOLIC PANEL CPT-4: 87928 02/25/2012 COMPLETE CBC W/AUTO DIFF WBC CPT-4: 34029 02/25/2012 HERPE1/2MG CPT-4: 55366|70638|33138 02/25/2012 THER/PROPH/DIAG INJ SC/IM CPT-4: 82873 09/24/2011 VITAMIN B12 INJECTION CPT-4: J3420 09/24/2011 CEFTRIAXONE SODIUM INJECTION CPT-4: J0696 09/24/2011 THER/PROPH/DIAG INJ SC/IM CPT-4: 50410 09/24/2011 ROUTINE VENIPUNCTURE CPT-4: 03196 09/17/2011 COMPREHEN METABOLIC PANEL CPT-4: 42762 09/17/2011 COMPLETE CBC W/AUTO DIFF WBC CPT-4: 25000 09/17/2011 LIPID PANEL CPT-4: 00844 09/17/2011 VITAMIN B 12 FOLIC ACID CPT-4: 07710|90449 09/17/2011 A1C GLYCOSYLATED HEMOGLOBIN TEST CPT-4: 58697 012 ROUTINE VENIPUNCTURE CPT-4: 40289 08/29/2010 COMPLETE CBC W/AUTO DIFF WBC CPT-4: 44270 08/29/2010 COMPREHEN METABOLIC PANEL CPT-4: 44245 08/29/2010 LIPID PANEL CPT-4: 41504 08/29/2010 ASSAY THYROID STIM HORMONE CPT-4: 46487 08/29/2010 ASSAY OF FREE THYROXINE CPT-4: 38170 08/29/2010 ASSAY OF PSA TOTAL CPT-4: 54805 08/29/2010 THER/PROPH/DIAG INJ SC/IM CPT-4: 90149 12/12/2009 VITAMIN B12 INJECTION CPT-4: J3420 12/12/2009 ROUTINE VENIPUNCTURE CPT-4: 11282 12/12/2009 ASSAY OF BLOOD/URIC ACID CPT-4: 07280 12/12/2009 THER/PROPH/DIAG INJ SC/IM CPT-4: 32075 10/30/2009 VITAMIN B12 INJECTION CPT-4: J3420 10/30/2009 THER/PROPH/DIAG INJ SC/IM CPT-4: 38058 10/01/2009 VITAMIN B12 INJECTION CPT-4: J3420 10/01/2009 THER/PROPH/DIAG INJ SC/IM CPT-4: 21840 10/01/2009 CEFTRIAXONE SODIUM INJECTION CPT-4: J0696 10/01/2009 Vital Signs Date Vital 10/22/2020 Blood Pressure 1: 140/76 Code: 8480-6 Heart Rate 1: 71 bpm Respiratory Rate: 17 bpm SpO2: 98% Temperature: 36.3 (C) / 97.3 (F) We ight: 149 lbs Code: 00823-3 10/19/2020 Blood Pressure 1: 121/87 Code: 8480-6 Heart Rate 1: 100 bpm Respiratory Rate: 16 bpm SpO2: 96% Temperature: 36.3 (C) / 97.3 (F) We ight: 149 lbs Code: 90790-0 10/01/2020 Blood Pressure 1: 140/84 Code: 8480-6 Heart Rate 1: 100 bpm Respiratory Rate: 18 bpm SpO2: 96% Temperature: 36.6 (C) / 97.9 (F) We ight: 147 lbs Code: 32593-7 09/24/2020 Blood Pressure 1: 112/70 Code: 8480-6 [...] 98.1 (F) We ight: 152 lbs Code: 28632-7 09/12/2020 Blood Pressure 1: 133/70 Code: 8480-6 Heart Rate 1: 100 bpm Respiratory Rate: 16 bpm SpO2: 100% Temperature: 36.5 (C) / 97.7 (F) We ight: 152 lbs Code: 45698-7 04/18/2020 Blood Pressure 1: 144/78 Code: 8480-6 Heart Rate 1: 80 bpm Respiratory Rate: 16 bpm SpO2: 98% Temperature: 36.4 (C) / 97.5 (F) We ight: 160 lbs Code: 18551-5 10/12/2019 Blood Pressure 1: 124/78 Code: 8480-6 BMI: 24.8 Code: 68973-3 Heart Rate 1: 76 bpm Height: 5'8" Code: 8302-2 Respiratory Rate: 20 bpm SpO2: 98% Temperature: 36.6 (C) / 97.9 (F) Weight: 163 lbs Code: 60855-5 04/25/2019 Blood Pressure 1: 140/86 Code: 8480-6 BMI: 24.3 Code: 74542-0 Heart Rate 1: 92 bpm Height: 5'8" Code: 8302-2 Respiratory Rate: 20 bpm SpO2: 98% Temperature: 36.8 (C) / 98.3 (F) Weight: 160 lbs Code: 70472-9 04/12/2019 Blood Pressure 1: 146/86 Code: 8480-6 BMI: 25.4 Code: 62324-3 Heart Rate 1: 88 bpm Height: 5'8" Code: 8302-2 Respiratory Rate: 20 bpm SpO2: 98% Temperature: 36.5 (C) / 97.7 (F) Weight: 167 lbs Code: 66816-7 02/17/2018 Blood Pressure 1: 114/62 Code: 8480-6 Bl ood Pressure 2: 116/70 Code: 8480-6 BMI: 24.9 Code: 58190-6 Heart Rate 1: 76 bpm Height: 5'8" Code: 8302-2 Respiratory Rate: 20 bpm SpO2: 97% Temperature: 36.7 (C) / 98.0 (F) We ight: 164 lbs Code: 29601-2 04/07/2017 Blood Pressure 1: 122/84 Code: 8480-6 BMI: 24.3 Code: 81625-0 Heart Rate 1: 72 bpm Height: 5'8" Code: 8302-2 Respiratory Rate: 20 bpm SpO2: 96% Temperature: 36.9 (C) / 98.4 (F) Weight: 160 lbs Code: 52051-9 09/19/2016 Blood Pressure 1: 124/76 Code: 8480-6 BMI: 24.6 Code: 73572-0 Heart Rate 1: 68 bpm Height: 5'8" Code: 8302-2 Respiratory Rate: 20 bpm SpO2: 96% Temperature: 36.6 (C) / 97.9 (F) Weight: 162 lbs Code: 59334-0 12/18/2015 Blood Pressure 1: 136/70 Code: 8480-6 BMI: 24.3 Code: 40039-4 Heart Rate 1: 84 bpm Height: 5'8" Code: 8302-2 Respiratory Rate: 20 bpm Temperatu re: 36.5 (C) / 97.7 (F) Weight: 160 lbs Code: 94701-6 07/20/2015 Blood Pressure 1: 140/84 Code: 8480-6 BMI: 24.9 Code: 68110-5 Heart Rate 1: 76 bpm Height: 5'8" Code: 8302-2 Respiratory Rate: 20 bpm Temperatu re: 36.6 (C) / 97.9 (F) Weight: 164 lbs Code: 62272-4 02/07/2015 Blood Pressure 1: 164/82 Code: 8480-6 BMI: 25.5 Code: 73196-2 Heart Rate 1: 78 bpm Height: 5'8" Code: 8302-2 Respiratory Rate: 20 bpm Temperatu re: 36.5 (C) / 97.7 (F) Weight: 168 lbs Code: 76059-1 07/19/2014 Blood Pressure 1: 136/94 Code: 8480-6 BMI: 24.8 Code: 83884-3 Heart Rate 1: 88 bpm Height: 5'8" Code: 8302-2 Respiratory Rate: 20 bpm Temperatu re: 36.8 (C) / 98.2 (F) Weight: 163 lbs Code: 06168-1 07/06/2014 Blood Pressure 1: 136/92 Code: 8480-6 BMI: 24.2 Code: 45753-0 Heart Rate 1: 88 bpm Height: 5'8" Code: 8302-2 Respiratory Rate: 20 bpm Temperatu re: 36.9 (C) / 98.4 (F) Weight: 159 lbs Code: 51032-7 07/04/2014 Blood Pressure 1: 116/84 Code: 8480-6 Bl ood Pressure 2: 108/82 Code: 8480-6 Heart Rate 1: 88 bpm Respiratory Rate: 20 bpm Temperature: 3 6.7 (C) / 98.0 (F) Weight: 159 lbs Code: 52962-0 06/14/2014 Blood Pressure 1: 132/90 Code: 8480-6 BMI: 24.6 Code: 26738-6 Heart Rate 1: 100 bpm Height: 5'8" Code: 8302-2 Respiratory Rate: 20 bpm Temperatu re: 37.2 (C) / 99.0 (F) Weight: 162 lbs Code: 75360-8 03/09/2014 Blood Pressure 1: 122/62 Code: 8480-6 BMI: 25.4 Code: 48387-7 Heart Rate 1: 84 bpm Height: 5'8" Code: 8302-2 Respiratory Rate: 20 bpm Temperatu re: 36.6 (C) / 97.8 (F) Weight: 167 lbs Code: 04799-0 01/05/2014 Blood Pressure 1: 124/82 Code: 8480-6 BMI: 25.4 Code: 69102-3 Heart Rate 1: 84 bpm Height: 5'8" Code: 8302-2 Respiratory Rate: 20 bpm Temperatu re: 36.7 (C) / 98.0 (F) Weight: 167 lbs Code: 90766-4 11/09/2013 Blood Pressure 1: 138/82 Code: 8480-6 BMI: 24.5 Code: 95352-5 Heart Rate 1: 84 bpm Height: 5'8" Code: 8302-2 Respiratory Rate: 20 bpm Temperatu re: 37.1 (C) / 98.8 (F) Weight: 161 lbs Code: 85305-1 11/24/2012 Blood Pressure 1: 122/72 Code: 8480-6 BMI: 24.0 Code: 90488-3 Heart Rate 1: 66 bpm Height: 5'8" Code: 8302-2 Respiratory Rate: 20 bpm Temperatu re: 36.5 (C) / 97.7 (F) Weight: 158 lbs Code: 53047-8 11/03/2012 Blood Pressure 1: 130/84 Code: 8480-6 BMI: 23.7 Code: 98661-8 Heart Rate 1: 72 bpm Height: 5'8" Code: 8302-2 Respiratory Rate: 20 bpm Temperatu re: 36.2 (C) / 97.1 (F) Weight: 156 lbs Code: 48379-3 02/25/2012 Blood Pressure 1: 142/84 Code: 8480-6 BMI: 25.1 Code: 86864-4 Heart Rate 1: 68 bpm Height: 5'8" Code: 8302-2 Temperature: 37.2 (C) / 99.0 (F) Weight: 165 lbs Code: 99349-9 10/08/2011 Blood Pressure 1: 126/80 Code: 8480-6 BMI: 24.3 Code: 32452-3 Heart Rate 1: 84 bpm Height: 5'8" Code: 8302-2 Respiratory Rate: 20 bpm Temperatu re: 36.8 (C) / 98.2 (F) Weight: 160 lbs Code: 98492-7 09/24/2011 Blood Pressure 1: 136/80 Code: 8480-6 BMI: 24.3 Code: 89353-0 Heart Rate 1: 84 bpm Height: 5'8" Code: 8302-2 Respiratory Rate: 20 bpm Temperatu re: 36.8 (C) / 98.2 (F) Weight: 160 lbs Code: 36110-8 09/17/2011 Blood Pressure 1: 128/84 Cod e: 8480-6 09/09/2011 Blood Pressure 1: 142/84 Code: 8480-6 BMI: 24.3 Code: 41774-3 Height: 5'8" Code: 8302-2 Temperature: 36.7 (C) / 98.0 (F) Weight: 160 lbs Code : 17191-4 08/29/2010 Blood Pressure 1: 144/84 Code: 8480-6 Heart Rate 1: 72 bpm Temperature: 36.8 (C) / 98.2 (F) Weight: 156 lbs Code: 44020-8 12/12/2009 Blood Pressure 1: 146/88 Code: 8480-6 Heart Rate 1: 76 bpm Temperature: 36.6 (C) / 97.9 (F) Weight: 152 lbs Code: 72227-3 10/30/2009 Blood Pressure 1: 132/70 Code: 8480-6 Heart Rate 1: 80 bpm Temperature: 36.9 (C) / 98.4 (F) Weight: 151 lbs Code: 88336-2 10/01/2009 Blood Pressure 1: 142/86 Code: 8480-6 BMI: 23.0 Code: 94318-2 Heart Rate 1: 84 bpm Height: 5'8" Code: 8302-2 Temperature: 36.9 (C) / 98.4 (F) Weight: 151 lbs Code: 16563-2 Functional Status No Functional Status data Reason [...] 10/01/2009 establishing vis it, being treated for Nile Spotted Fever Encounters Encounter Performer Location Codes Date ([id number]) OFFICE/OUTPATIENT VISIT EST Diagnosis: Mass of left lung[ICD10: R91.8] Diagnosis: Supraclavicular adenopathy[ICD10: R59.0] Diagnosis: On anticoagulant therapy[ICD10: Z79.01] Diagnosis: Other acute pulmonary embolism without acute cor pulmonale[ICD10: I26.99] Diagnosis: Lymphadenopathy[ICD10: R59.1] Diagnosis: Thrombocytopenia[ICD10: D69.6] Diagnosis: Pericardial effusion[ICD10: I31.3] Estephanie KEYES [facility] CPT-4: 89438 10/22/2020 ([id number]) OFFICE/OUTPATIENT VISIT EST Diagnosis: Supraclavicular adenopathy[ICD10: R59.0] Diagnosis: Difficulty swallowing[ICD10: R13.10] [facility] 68588 10/19/2020 ([id number]) OFFICE/OUTPATIENT VISIT EST Diagnosis: On anticoagulant therapy[ICD10: Z79.01] Diagnosis: Acute deep vein thrombosis (DVT) of femoral vein of right lower extremity[ICD10: I82.411] Estephanie KEYES [facility] CPT-4 : 91566 10/01/2020 ([id number]) OFFICE/OUTPATIENT VISIT EST Diagnosis: Right leg DVT[ICD10: I82.401] Tracie Keyes TRACIE Lee [facility]PT-[facility]: 22941 09/24/2020 ([id number]) OFFICE/OUTPATIENT VISIT EST Diagnosis: Acute deep vein thrombosis (DVT) of femoral vein of right lower extremity[ICD10: I82.411] Diagnosis: On anticoagulant therapy[ICD10: Z79.01] Estephanie CARPENTERKAMALJIT Lee KEYES [facility] CPT-4: 10814 09/17/2020 ([id number]) OFFICE/OUTPATIENT VISIT EST Diagnosis: Acute deep vein thrombosis (DVT) of femoral vein of right lower extremity[ICD10: I82.411] Estephanie KEYES [facility] CPT-4 : 26378 09/14/2020 ([id number]) OFFICE/OUTPATIENT VISIT EST Diagnosis: Fall down stairs, initial encounter[ICD10: W10.8XXA] Diagnosis: Right leg swelling[ICD10: M79.89] Diagnosis: Right leg pain[ICD10: M79.604] Estephanie Mcguirewillam TRACIE Elvin KEYES [facility] CPT-4: 84083 09/12/2020 ([id number]) OFFICE/OUTPATIENT VISIT EST Diagnosis: Hypertension[ICD10: I10] Diagnosis: Hyperglycemia, unspecified[ICD10: R73.9] Diagnosis: Mixed hyperlipidemia[ICD10: E78.2] Tracie KEYES [facility] CPT-4: 87661 04/18/2020 ([id number]) OFFICE/OUTPATIENT VISIT EST 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] Diagnosis: Cat scratch[ICD10: W55.03XA] Diagnosis: Hypertension[ICD10: I10] Diagnosis: Pulmonary nodules[ICD10: R91.8] Tracie KEYES [place] CPT-4: 48001 04/25/2019 ([id number]) OFFICE/OUTPATIENT VISIT EST 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] Diagnosis: Dysphagia[ICD10: R13.10] Tracie CHANG [place] CPT-4: 69580 04/12/2019 ([id number]) PER PM REEVAL EST PAT 65+ YR Diagnosis: Encounter for general adult medical examination without abnormal findings[ICD10: Z00.00] Diagnosis: Essential (primary) hypertension[ICD10: I10] Diagnosis: Hyperglycemia, unspecified[ICD10: R73.9] Tracie KEYES [place] CPT-4: 08292 02/17/2018 ([id number]) NURSE/OUTPATIENT VISIT EST Diagnosis: Essential (primary) hypertension[ICD10: I10] Diagnosis: Mixed hyperlipidemia[ICD10: E78.2] Diagnosis: Hyperglycemia, unspecified[ICD10: R73.9] Diagnosis: Encounter for screening for other viral diseases[ICD10: Z11.59] Tracie KEYES [place] CPT-4: 37036 01/29/2018 ([id number]) OFFICE/OUTPATIENT VISIT EST Diagnosis: Encounter for general adult medical examination without abnormal findings[ICD10: Z00.00] Diagnosis: Mixed hyperlipidemia[ICD10: E78.2] Diagnosis: Essential (primary) hypertension[ICD10: I10] Diagnosis: Impaired fasting glucose[ICD10: R73.01] Diagnosis: Encounter for screening for malignant neoplasm of prostate[ICD10: Z12.5] Tracie KEYES DO [facility] CPT-4: 25205 05/01/2017 ([id number]) OFFICE/OUTPATIENT VISIT EST Diagnosis: URI, ACUTE[ICD10: J06.9] Tracie DURANLINE Lee ZHOU [facility] CPT-4: 61024 04/07/2017 OFFICE/OUTPATIENT VISIT EST Diagnosis: Essential (primary) hypertension[ICD10: I10] Ashley Den TRACIE KEYES DO [facility] CPT-4: 21337 09/19/2016 ([id number]) OFFICE/OUTPATIENT VISIT EST Diagnosis: Encounter for general adult medical examination without abnormal findings[ICD10: Z00.00] Diagnosis: Essential (primary) hypertension[ICD10: I10] Diagnosis: Impaired fasting glucose[ICD10: R73.01] Tracie Nikhilkaren JEISON KEYES DO [facility] CPT-4: 16581 01/04/2016 ([id number]) OFFICE/OUTPATIENT VISIT EST Diagnosis: Essential (primary) hypertension[ICD10: I10] Diagnosis: Mixed hyperlipidemia[ICD10: E78.2] Diagnosis: Impaired fasting glucose[ICD10: R73.01] Tracie Tejedarhiannanorman KEYES DO [facility] CPT-4: 99424 12/18/2015 ([id number]) PREV VISIT EST AGE 40-64 Diagnosis: Encounter for general adult medical examination without abnormal findings[ICD10: Z00.00] Diagnosis: Essential (primary) hypertension[ICD10: I10] Ashleydarron Crenshaw TRACIE Lee KEYES DO [facility] CPT-4: 67018 07/20/2015 OFFICE/OUTPATIENT VISIT EST Diagnosis: Mixed hyperlipidemia[ICD10: E78.2] Diagnosis: Impaired fasting glucose[ICD10: R73.01] Diagnosis: Insomnia, unspecified[ICD10: G47.00] Jacque Lopez ROGER KAMALJIT Lee KEYES DO [facility] CPT-4: 82052 02/07/2015 ([id number]) OFFICE/OUTPATIENT VISIT EST Diagnosis: Encounter for general adult medical examination without abnormal findings[ICD10: Z00.00] Diagnosis: Essential (primary) hypertension[ICD10: I10] Diagnosis: Mixed hyperlipidemia[ICD10: E78.2] Tracie KINSEY KIMBERLEE Lee TEJEDANDNORMAN SPRINGER [facility] CPT-4: 78383 02/02/2015 ([id number]) OFFICE/OUTPATIENT VISIT EST Diagnosis: SINUSITIS, ACUTE[ICD9: 461.9] Jacquesa Jessiac KEYES DO [facility] CPT-4: 07029 07/19/2014 ([id number]) OFFICE/OUTPATIENT VISIT EST Diagnosis: Hypotension[ICD9: 458.9] Diagnosis: DYSPEPSIA[ICD9: 536.8] Diagnosis: HYPERTENSION[ICD9: 401.9] Tracie GALEANO DO [facility] CPT-4: 54814 07/06/2014 ([id number]) OFFICE/OUTPATIENT VISIT EST Diagnosis: DIZZINESS/VERTIGO[ICD9: 780.4] Diagnosis: HYPOTENSION[ICD9: 458.9] Diagnosis: MALAISE AND FATIGUE[ICD9: 780.79] Tracie Nikhilkaren EM Lidia KEYES DO [facility] CPT-4: 53025 07/04/2014 ([id number]) OFFICE/OUTPATIENT VISIT EST Diagnosis: ARTHRALGIA-MULTIPLE SITES[ICD9: 719.49] Diagnosis: CEPHALGIA[ICD9: 784.0] Diagnosis: Uveitis[ICD9: 364.3] Tracie KEYES DO [facility] CPT-4: 14300 06/14/2014 ([id number]) OFFICE/OUTPATIENT VISIT EST Diagnosis: HYPERTENSION[ICD9: 401.9] Diagnosis: OTHER ABNORMAL GLUCOSE[ICD9: 790.29] Tracie Nikhilkaren ROGER KAMALJIT Lee OBRIENER [facility] CPT-4: 12816 03/09/2014 ([id number]) OFFICE/OUTPATIENT VISIT EST Diagnosis: OTHER ABNORMAL GLUCOSE[ICD9: 790.29] Tracie Nikhilkaren MARI Lee TEJEDANDER [facility] CPT-4: 70825 01/05/2014 ([id number]) OFFICE/OUTPATIENT VISIT EST Diagnosis: ROUTINE MEDICAL EXAM[ICD9: V70.0] Tracie Nikhilkaren Murillo Lee TEJEDANDNORMAN SPRINGER [facility] CPT-4: 35713 11/18/2013 ([id number]) PREV VISIT EST AGE 40-64 Diagnosis: ROUTINE MEDICAL EXAM[ICD9: V70.0] Diagnosis: HYPERLIPIDEMIA NEC/NOS[ICD9: 272.4] Diagnosis: FOREIGN BODY FINGER[ICD9: 915.6] Tracie KEYES [facility] CPT-4: 85786 11/09/2013 ([id number]) OFFICE/OUTPATIENT VISIT EST Diagnosis: CERVICALGIA[ICD9: 723.1] Diagnosis: B12 DEFIC ANEMIA NEC[ICD9: 281.1] Diagnosis: DISTURBANCE OF SKIN SENSATION (Paresthesia)[ICD9: 782.0] [facility]: 74456 11/24/2012 OFFICE/OUTPATIENT VISIT EST Diagnosis: Neck pain on left side[ICD9: 723.1] Diagnosis: Tendonitis of elbow, left[ICD9: 727.09] Jacque Jessica TRACIE Howard [facility] CPT-4: 29316 11/03/2012 OFFICE/OUTPATIENT VISIT EST Diagnosis: Oral lesion[ICD9: 528.9] Diagnosis: Herpes zoster[ICD9: 053.9] Diagnosis: FEBRILE ILLNESS[ICD9: 780.60] Liz Randall TRACIE [facility] CPT-4: 61413 02/25/2012 OFFICE/OUTPATIENT VISIT EST Diagnosis: MALAISE AND FATIGUE[ICD9: 780.79] Diagnosis: B12 DEFIC ANEMIA NEC[ICD9: 281.1] Diagnosis: SPOTTED FEVERS[ICD9: 082.0] Diagnosis: SPASM OF MUSCLE[ICD9: 728.85] Tracie Stephy DURANLINE Lee [facility] CPT-4: 50727 10/08/2011 ([id number]) OFFICE/OUTPATIENT VISIT EST Diagnosis: MALAISE AND FATIGUE[ICD9: 780.79] Diagnosis: SPOTTED FEVERS[ICD9: 082.0] Diagnosis: B12 DEFIC ANEMIA NEC[ICD9: 281.1] Tracie Stephy EM Murillo Lee [facility] CPT-4: 14001 09/24/2011 ([id number]) OFFICE/OUTPATIENT VISIT EST Diagnosis: B12 DEFIC ANEMIA NEC[ICD9: 281.1] Diagnosis: HYPERTENSION[ICD9: 401.9] Diagnosis: MALAISE AND FATIGUE[ICD9: 780.79] Diagnosis: OTHER ABNORMAL GLUCOSE[ICD9: 790.29] Tracie KEYES DO [facility] CPT-4: 00237 09/17/2011 OFFICE/OUTPATIENT VISIT EST Diagnosis: NONVENOM ARTHROPOD BITE[ICD9: E906.4] Diagnosis: HYPERTENSION[ICD9: 401.9] Tracie TEJEDA NDER DO [facility] CPT-4: 34028 09/09/2011 PREV VISIT EST AGE 40-64 Tracie OBRIENE R DO [facility] CPT-4: 67009 08/29/2010 ([id number]) OFFICE/OUTPATIENT VISIT, EST Tracie KEYES DO [facility] CPT-4: 69938 12/12/2009 ([id number]) OFFICE/OUTPATIENT VISIT, EST Tracie KEYES DO [facility] CPT-4: 67547 10/30/2009 ([id number]) OFFICE/OUTPATIENT VISIT, NEW Tracie CHAVEZ SClark OBRIENER DO [facility] CPT-4: 70216 10/01/2009 Plan of Care Planned Activity Notes [...] TISSUE NECK W/O DYE L OINC : 27084-5 Pending 10/22/2020 Visit Diagnosis Plan: Supraclavicular adenopathy Discu ssion: Will send for stat CT neck chest with contrast and labs at [facility] ICD-9 : 785.6 ICD-10 : R59.0 10/19/2020 Appointment: Estephanie Zaidi [facility]el[facility] [phone] [facility] [place] [place] 10/19/2020 Patient Education: Patient Medication [...] 10/01/2020 Appointment: Estephanie Zaidi WPtel: [phone] [facility] [place] [place] FOLLOW UP [...] I82.401 09/24/2020 Appointment: [facility] Keyes [facility] [phone] [facility] [facility] 09/24/2020 Visit Diagnosis Plan: [...] extremity Discussion: Swelling decreasing. F/U 1 [place] for recheck. ICD-9 : 453.41 ICD-10 : I82.411 09/17/2020 Appointment: Estephanie Zaidi WPtel: [phone] [facility] [place] [place] FOLLOW UP 09/17/2020 Patient Education: Patient Medication Summary Completed 09/17/2020 Patient Education: Eliquis- [employer] Coupon [id number] https://www.[employer]/samplemd/resources/getResource/61/g75whihj-9vhp-825m-73 Completed 09/17/2020 Patient Education: tramadol- [employer] Coupon [id number] https://www.[employer]/samplevoxapp/resources/getResource/61/hub04872-jl84-2l53-75 Completed 09/17/2020 Visit Diagnosis Plan: Acute deep [...] : 453.41 ICD-10 : I82.411 09/14/2020 Appointment: Estephnaie Zaidi WPtel: [phone] [facility] FOLLOW UP 09/14/2020 Patient Education: Patient Medication Summary Completed 09/14/2020 Visit Diagnosis Plan: Right leg swelling Discussion: W ill send to [facility] for stat doppler to r/o DVT d/t swelling and pain and f/u with results. ICD-9 : 729.81 ICD-10 : M79.89 09/12/2020 Appointment: Estephanie Zaidi WPtel: [phone] [facility] [place] AC[place] ILLNESS 09/12/2020 Patient Education: Patient Medication [...] : R73.9 04/18/2020 Appointment: Tracie Keyes WPtel: [address] [place] [address] US FOLLOW UP 04/18/2020 Patient Education: lisinopril- Opt[employer] Coupon [id number] https://www.[employer].com/samplemd/resources/getResource/61/059277gh-rztc-65p7-22 Completed 04/18/2020 Visit Diagnosis Plan: Essential (primary) hypertension Discussion: Stable on lisinopril ICD-9 : 401.9 ICD-10 : I10 10/12/2019 Visit Diagnosis Plan: Encounter for gene [facility] adult medical examination without abnormal findings Discussion: Mediterranean diet Combinati on of cardio and weight bearing exercise Will return for fasting lab next week ICD-9 : V70.0 ICD-10 : Z00.00 10/12/2019 Visit Diagnosis Plan: Hyperglycemia, unspecified Discu ssion: Will return for HbA1C next week ICD-9 : 790.29 ICD-10 : R73.9 10/12/2019 Appointment: Tracie Keyes WPtel: [address] [place] [address] INSIDE Annual Well Visit 10/12/2019 Appointment: Viridiana Lima [address] [place] [address] FOLLOW UP 05/16/2019 Visit Diagnosis Plan: Pulmonary [...] : W55.03XA 04/25/2019 Appointment: Tracie Keyes WPtel: [address] [place] [address] Hospital Follow Up 04/25/2019 Patient Education: nystatin- Opt[employer] Coupon [id number] https://www.Snapdeal.com/samplemd/resources/getResource/61/[email or web address] Completed 04/25/2019 Visit Diagnosis Plan: Submandibular gland [...] ICD-10 : K11.1 04/12/2019 Appointment: Tracie Keyestel: [address] [place] [address] 04/12/2019 Appointment: Tracie Keyes WPtel: [address] [place] [address] LM CANCELED 08/09/2018 Visit Diagnosis Plan: Essential (primary) hypertension Discussion: Stable ICD-9 : 401.9 ICD-10 : I10 02/17/2018 Visit Diagnosis Plan: Encounter for gene [facility] adult medical examination without abnormal findings Discussion: Lab discussed Refuses prosta te check Refuses colonoscopy Will check with pharmacy on Shingrix/Flu shot and Prevnar ICD-9 : V70.0 ICD-10 : Z00.00 02/17/2018 Visit Diagnosis Plan: Hyperglycemia, unspecified Discu ssion: Wants to focus on diet/exercise and recheck in 6mos ICD-9 : 790.29 ICD-10 : R73.9 02/17/2018 Appointment: Tracie Keyes WPtel: [address] [place], [place] [phone] Annual Well Visit 02/17/2018 Appointment: Tracie Keyes WPtel: [phone] [place], [place] [address] [place] LAB 01/29/2018 Appointment: Tracie Keyes WPtel: [address] [place], [place] [phone] US LAB 05/01/2017 Patient Education: Patient Medication [...] Fluids... 04/07/2017 Appointment: Tracie Keyes WPtel: [address] [place], [place] [phone] ACUTE ILLNESS 04/07/2017 Patient Education: Patient Medication Summary Completed 04/07/2017 Visit Plan: Had meds refilled for 6 joseph hs the other day. RTC 6 months Described s/s of heart disease that he would need to report for to us or ER/UC. 09/19/2016 Appointment: Ashley Crenshaw WPtel: [address] [place], [place] [address] [place] 09/18 lm`sl FOLLOW UP 09/19/2016 Patient Education: Patient Medication Summary Completed 09/19/2016 Appointment: Tracie Keyes WPtel: [address] [place], [place] [phone] US LAB 01/04/2016 Patient Education: Patient Medication Summary Completed 01/04/2016 Visit Plan: Will get flu shot at work Up date fasting lab 12/18/2015 Appointment: Tracie Keyes WPtel: [address] [place], [place] [phone] US 12/16 lm~sl FOLLOW UP 12/18/2015 Patient Education: Patient Medication Summary Completed 12/18/2015 Visit Plan: Pt declined rectal/prostate exam. Encouraged to get colonoscopy Plan labs for fall 2015 Continue on current meds but send in home B/P since today's B/P is elevated to see if dosage change is indicated. RTC in 6 months 07/20/2015 Appointment: Ashley Crenshaw WPtel: [phone] [facility] 07/18 lm ~sl Annual Well Visit 07/20/2015 Patient Education: Patient Medication Summary Completed 07/20/2015 Visit Plan: Resume BP med Resume Metform in( has been off > 9 months) Add HgbA1C to labs drawn last week, Trial of Selinor for sleep. Will let us know how he does with it. 02/07/2015 Appointment: Jacque Lopez WPtel: [address] [place], [place] [phone] 02/06/15 vm cn....appt confirmed cn FOLLOW UP 02/07/2015 Patient Education: Patient Medication Summary Completed 02/07/2015 Patient Education: [facility] - Saving [employer]j - Lisinopril - 18-64 - Dynamic Portal ID Completed 02/07/2015 Appointment: Tracie Keyes WPtel: [address] [place], [place] [phone] LAB 02/02/2015 Patient Education: Patient Medication Summary Completed 02/02/2015 Appointment: Jacque Lopez WPtel: [address] [place], [place] [phone] ACUTE ILLNESS 07/19/2014 Patient Education: Patient Medication Summary Completed 07/19/2014 Visit Plan: Restart Diltiazem Continue t o hydrate Call in 3 days on how doing 07/06/2014 Appointment: Tracie Keyes WPtel: [address] [place], [place] [phone] 07/05 appt confirmed cn FOLLOW UP 07/07/19 Patient Education: Patient Medication Summary Completed 07/06/2014 Visit Plan: Hold lisinopril hct Hydrate Recheck 2 days Meclizine 25mg q HS Hold metformin Call in AM 07/04/2014 Appointment: Tracie Keyestemarcellus: [address] [place], [place] [phone] FOLLOW UP 07/04/2014 Patient Education: Patient Medication Summary Completed 07/04/2014 Appointment: Tracie Keyes WPtel: [address] [place], [place] [phone] ACUTE ILLNESS 06/14/2014 Patient Education: Patient Medication Summary Completed 06/14/2014 Appointment: Tracie Keyes WPtel: [address] [place], [place] [phone] FOLLOW UP 03/09/2014 Patient Education: Patient Medication Summary Completed 03/09/2014 Visit Plan: Continue metformin at curren t dose Accuchecks daily alternating times Diabetic diet info given Check CMP with HbA1C in 2mos then fwup 01/05/2014 Appointment: Tracie Keyes WPtel: [address] [place] [address] FOLLOW UP 01/05/2014 Patient Education: Patient Medication Summary Completed 01/05/2014 Visit Plan: Did not need lab so will jus t fwup as scheduled 01/03/2014 Appointment: Tracie Keyes WPtel: [address] [place] [address] US LAB 01/03/2014 Patient Education: Patient Medication Summary Completed 01/03/2014 Appointment: Tracie Keyes WPtel: [address] [place], [place] [phone] US LAB 11/18/2013 Patient Education: Patient Medication Summary Completed 11/18/2013 Visit Plan: Continue current meds Remova l of splinter as above Keflex for 1 week Continue current meds Fwup next week for fasting lab including PSA 11/09/2013 Appointment: Tracie Keyes WPtel: [address] [place], [place] [phone] 11/08 Annual Well Visit 11/09/2013 Patient Education: Patient Medication Summary Completed 11/09/2013 Patient Education: [facility] - Saving AutoInj - Lisinopril - 18+ - Dynamic Portal ID Completed 11/09/2013 Appointment: Tracie Keyes WPtel: [address] [place], [place] [phone] 11/23 [facility] FOLLOW UP 11/24/2012 Patient Education: Patient Medication Summary Completed 11/24/2012 Appointment: Jessica Jacque Trivedi WPtel: [address] [place], [place] [phone] FOLLOW UP 11/10/2012 Appointment: Jessica Jacque Trivedi WPtel: [address] [place], [place] [phone] ACUTE [facility]LL[facility] 11/03/2012 Patient Education: Patient Medication Summary Completed 11/03/2012 Appointment: Liz Randall WPtel: [address] [place], [place] [phone] ACUTE ILLNESS 02/25/2012 Patient Education: Patient Medication Summary Completed 02/25/2012 Visit Plan: Finish abx Continue B12 OMT done Add Skelaxin 800mg q HS 10/08/2011 Appointment: Tracie Keyes WPtel: [address] [place], [place] [phone] [facility] FOLLOW UP 10/08/2011 Patient Education: Patient Medication Summary Completed 10/08/2011 Appointment: Tracie Keyes WPtel: [address] [place], [place] [phone] FOLLOW UP 09/24/2011 Patient Education: Patient Medication Summary Completed 09/24/2011 Appointment: Tracie Keyes WPtel: [address] [place], [place] [phone] US LAB 09/17/2011 Patient Education: Patient Medication Summary [...] fasting labs. 09/09/2011 Appointment: Liz Randall WPtel: [address] [place] [address] ACUTE ILLNESS 09/09/2011 Patient Education: Patient Medication Summary Completed 09/09/2011 Visit Plan: Change lisinopril hct to 20/ 12.5mg 2 daily and continue cardizem Check fasting lab--drawn today 08/29/2010 Appointment: Tracie Keyes WPtel: [address] [place] [address] FOLLOW UP 08/29/2010 Patient Education: Patient Medication Summary Completed 08/29/2010 Appointment: Tracie Keyes WPtel: [address] [place] [address] FOLLOW UP 12/12/2009 Patient Education: Patient Medication Summary Completed 12/12/2009 Appointment: Tracie Keyes WPtel: [address] [place] [address] FOLLOW UP 11/27/2009 Visit Plan: Finish Abx B12 given Start d aily 1000mcg B12 Cont allopurinol and check B12 and uric acid in 1mo. 10/30/2009 Appointment: Tracie Keyes WPtel: [address] [place] [address] FOLLOW UP 10/30/2009 Patient Education: Patient Medication Summary Completed 10/30/2009 Appointment: Tracie Keyes WPtel: [address] [place] [address] NEW PATIENT 10/01/2009 Patient Education: Patient Medication Summary Completed 10/01/2009 Referral: Sav Olivo WPtel: [address] [place] [address] Referral Initiated Instructions Comment . Discussed labs [...]
--- OUTSIDE RECORDS SUMMARY | 2020-11-05 09:35 | XMS REPORT | CCD ---
Author Author Josh Keyes D.O. Organization [facility] Address [address] [place] [address] Phone Care Team Providers Care Rail Track Layer Name Role Phone Tracie Keyes D.O., PP Unavailable CCM Unavailable Summary Purpose Interface Exchange Insurance Providers Payer name Policy type / Coverage type Covered constitution party ID Effective Begin Date Effective End Date WPS MEDICARE PART B [place] Medicare Part B [id number] Unknown [facility] Medicare Part B [id number] 2019 Un known Family history Sister Diagnosis Age At Onset seizure disorder Unknown Father Diagnosis Age At Onset Diabetes mellitus Type 2 Unknown Mother Diagnosis Age At Onset Diabetes mellitus Type 2 Unknown Social History Social History Element Codes Description Effective Dates Tobacco history SNOMED CT: 86875084 Currently smokes tobacco Marital status Unknown 10/01/2009 [...] Problems Condition Codes Effective Dates Condition Status Difficulty swallowing ICD-10: R13.10 ICD-9: 787.20 04/12/2019 Active Supraclavicular adenopathy ICD-10: R59.0 ICD-9: 785.6 10/19/2020 Active Acute deep vein thrombosis (DVT) of femoral vein of ri t lower extremity ICD- 10: I82.411 ICD-9: 453.41 09/14/2020 Active On anticoagulant therapy ICD-10: Z79.01 ICD-9: V58.61 09/17/2020 Active Right leg DVT ICD-10: I82.401 ICD-9: [...] E906.4 09/09/2011 Active Hypertension Unknown 10/01/2009 Active [place] spotted fever Unknown 07/24/2009 Act [place] B12 DEFIC ANEMIA NEC ICD-9: 281.1 10/01/2009 Active Hyperuricemia ICD-9: 790.6 10/01/2009 Active Myalgia ICD-9: 729.1 10/01/2009 Active [place] spotted fever ICD-9: 082.0 10/01/2009 Act [place] Medications Medication Codes Instructions Start Date Stop Date Status Fill Instructions Eliquis 5 mg tablet RxNorm: 5239476 Take 1 Tablet(s) Oral two ti mes a day 09/19/2020 12/17/2020 Active tramadol 50 mg tablet RxNorm: 482022 Take 1 Tablet(s) O ral Q8H as needed for pain Take with 2 tylenol 09/17/2020 No Stop Date Active Eliquis 5 mg tablet RxNorm: 7518119 Take 2 Tablet(s) Oral two ti mes a day 09/17/2020 No Stop Date Active lisinopril 40 mg tablet RxNorm: 331282 1 Tablet(s) Oral QD repl aces 20mg dose 04/18/2020 10/15/2020 Inactive Men's Multivitamin 400 mcg-20 mcg-300 mcg tablet RxNorm: 1 Tablet(s) Oral QD 04/18/2020 No Stop Date Active lisinopril 20 mg tablet RxNorm: 546774 1 Tablet(s) Oral QD 03/29/19 21 04/17/2020 Inactive Due for his 6 month appointm ent lisinopril 20 mg tablet RxNorm: 130460 TAKE ONE (1) TAB LET BY MOUTH DAILY... Needs fwup 10/03/2019 11/02/2019 Inactive lisinopril 20 mg tablet RxNorm: 559123 TAKE ONE (1) TABLET BY M OUTH DAILY... 10/03/2019 10/02/2019 Inactive Zithromax 500 mg tablet RxNorm: 554189 1 Tablet(s) Oral QD 04/25/19 20 05/02/2019 Inactive [AttnRPh: Saving apply/adjud icate RxGRP:SG20 RxBIN:[id number] RxPCN: ID#:[id number]] lisinopril 20 mg tablet RxNorm: 181294 1 Tablet(s) Oral QD 04/25/19 20 10/02/2019 Inactive nystatin 100,000 unit/mL oral suspension RxNorm: 682275 5 Milliliter(s) Oral four times a day swish, gargle and spit 04/25/2019 05/09/2019 Inactive diltiazem ER (XR/XT) 120 mg capsule,extended release 2 4 hr, controlled RxNorm: 409224 Capsule(s) 1 Capsule(s) PO QD 06/10/2018 10/11/2019 Inactive [SAVINGS FOR UNINSURED PATIENTS -- BIN:319440, PCN: ASPROD1, Group: AME08, ID# [id number], Process claim through [employer], for questions: . THIS IS NOT INSURANCE.] lisinopril 20 mg-hydrochlorothiazide 12.5 mg tablet RxNorm: 311954 1 Tablet(s) PO QAM 06/10/2018 10/11/2019 Inactive [AttnRPh: Saving apply/adjudicate RxGRP:SG20 RxBIN:[id number] RxPCN: ID#:[id number]] lisinopril 20 mg-hydrochlorothiazide 12.5 mg tablet RxNorm: 513163 1 Tablet(s) PO QAM 05/06/2017 01/30/2018 Inactive [AttnRPh: Saving apply/adjudicate RxGRP:SG20 RxBIN:[id number] RxPCN:HT ID#:[id number]] diltiazem ER (XR/XT) 120 mg capsule,extended release 2 4 hr, controlled RxNorm: 146522 Capsule(s) 1 Capsule(s) PO QD 05/06/2017 01/30/2018 Inactive [SAVINGS FOR UNINSURED PATIENTS -- BIN:448066, PCN: ASPROD1, Group: AME08, ID# [id number], Process claim through [employer], for questions: . THIS IS NOT INSURANCE.] diltiazem ER (XR/XT) 120 mg capsule,extended release 2 4 hr, controlled RxNorm: 338332 Capsule(s) 1 Capsule(s) PO QD 09/16/2016 03/14/2017 Inactive [SAVINGS FOR UNINSURED PATIENTS -- BIN:485533, PCN: ASPROD1, Group: AME08, ID# [id number], Process claim through [employer], for questions: . THIS IS NOT INSURANCE.] lisinopril 20 mg-hydrochlorothiazide 12.5 mg tablet RxNorm: 408335 1 Tablet(s) PO QAM 09/16/2016 03/14/2017 Inactive [AttnRPh: Saving apply/adjudicate RxGRP:SG20 RxBIN:[id number] RxPCN: ID#:[id number]] diltiazem ER (XR/XT) 120 mg capsule,extended release,control led RxNorm: 498948 1 Capsule(s) PO QD 04/09/2016 10/11/2019 Inactive [SAVINGS FOR UN INSURED PATIENTS -- BIN:569293, PCN: ASPROD1, Group: AME08, ID# [id number], Process claim through MedImp[employer], for questions: . THIS IS NOT INSURANCE.] diltiazem ER (XR/XT) 120 mg capsule,extended release,control led RxNorm: 300824 1 Capsule(s) PO QD 04/09/2016 09/15/2016 Inactive [SAVINGS FOR UN INSURED PATIENTS -- BIN:417951, PCN: ASPROD1, Group: AME08, ID# [id number], Process claim through [employer], for questions: . THIS IS NOT INSURANCE.] lisinopril 20 mg-hydrochlorothiazide 12.5 mg tablet RxNorm: 886723 1 Tablet(s) PO QAM 12/10/2015 06/06/2016 Inactive [AttnRPh: Saving apply/adjudicate RxGRP:SG20 RxBIN:[id number] RxPCN: ID#:[id number]] diltiazem ER (XR/XT) 120 mg capsule,extended release,control led RxNorm: 363262 1 Capsule(s) PO QD 02/07/2015 02/01/2016 Inactive [SAVINGS FOR UN INSURED PATIENTS -- BIN:827217, PCN: ASPROD1, Group: AME08, ID# [id number], Process claim through [employer]Imp[employer], for questions: . THIS IS NOT INSURANCE.] lisinopril 20 mg-hydrochlorothiazide 12.5 mg tablet RxNorm: 826598 1 Tablet(s) PO QAM 02/07/2015 12/09/2015 Inactive [AttnRPh: Saving apply/adjudicate RxGRP:SG20 RxBIN:[id number] RxPCN: ID#:[id number]] metformin ER 1,000 mg 24 hr tablet,extended release RxNorm: 454183 1 Tablet(s) PO QD 02/07/2015 07/19/2015 Inactive [SAVINGS FOR UNI NSURED PATIENTS -- BIN:654593, PCN: ASPROD1, Group: AME08, ID# [id number], Process claim through MedImp[employer], for questions: . THIS IS NOT INSURANCE.] diltiazem ER (XR/XT) 120 mg capsule,extended release,control led RxNorm: 816987 1 Capsule(s) PO QD 12/28/2014 02/06/2015 Inactive [SAVINGS FOR UN INSURED PATIENTS -- BIN:129831, PCN: ASPROD1, Group: AME08, ID# [id number], Process claim through [employer], for questions: . THIS IS NOT INSURANCE.] lisinopril 20 mg-hydrochlorothiazide 12.5 mg tablet RxNorm: 749454 1 Tablet(s) PO QAM 11/20/2014 10/11/2019 Inactive cefdinir 300 mg capsule RxNorm: 638706 2 Capsule(s) PO QD 07/19/2014 07/28/2014 Inactive [SAVINGS FOR NON-COVERED DRUGS -- BIN: 3585, PCN: ASPROD1, Group: XXXXX, ID# [id number], Questions: . THIS IS NOT INSURANCE.] meclizine 25 mg tablet RxNorm: 563543 1 Tablet(s) PO QHS 07/04/2014 0 10/31/2014 Inactive [SAVINGS FOR NON-COVERED DRUGS -- BIN:00 3585, PCN: ASPROD1, Group: XXXXX, ID# [id number], Questions: . THIS IS NOT INSURANCE.] allopurinol 300 mg tablet RxNorm: 854087 1 Tablet(s) PO QD 06/17/19 15 06/15/2014 Inactive allopurinol 300 mg tablet RxNorm: 583438 1 Tablet(s) PO QD 06/17/19 15 02/06/2015 Inactive [SAVINGS FOR NON-COVERED TATYANA GS -- BIN:604688, PCN: ASPROD1, Group: XXXXX, ID# [id number], Questions: . THIS IS NOT INSURANCE.] naproxen 500 mg tablet RxNorm: 469630 1 Tablet(s) PO BID 06/16/2014 0 07/19/2015 Inactive [SAVINGS FOR NON-COVERED DRUGS -- BIN:00 3585, PCN: ASPROD1, Group: XXXXX, ID# [id number], Questions: . THIS IS NOT INSURANCE.] metformin ER 1,000 mg 24 hr tablet,extended release RxNorm: 299985 1 Tablet(s) PO QD 03/14/2014 02/06/2015 Inactive [SAVINGS FOR UNI NSURED PATIENTS -- BIN:894638, PCN: ASPROD1, Group: AME08, ID# [id number], Process claim through MedImp[employer], for questions: . THIS IS NOT INSURANCE.] metformin ER 500 mg tablet,extended release 24hr RxNorm: 860 975 1 Tablet(s) PO QD 01/05/2014 03/13/2014 Inactive [SAVINGS FOR UNI NSURED PATIENTS -- BIN:548910, PCN: ASPROD1, Group: AME08, ID# [id number], Process claim through MedImp[employer], for questions: . THIS IS NOT INSURANCE.] metformin ER 500 mg tablet,extended release 24hr RxNorm: 860 975 1 Tablet(s) PO QD 11/28/2013 01/04/2014 Inactive [SAVINGS FOR UNI NSURED PATIENTS -- BIN:597841, PCN: ASPROD1, Group: AME08, ID# [id number], Process claim through MedImpact, for questions: . THIS IS NOT INSURANCE.] Keflex 500 mg capsule RxNorm: 750344 1 Capsule(s) PO TID 11/09/2013 0 11/15/2013 Inactive [SAVINGS FOR UNINSURED PATIENTS -- BIN:0 41385, PCN: ASPROD1, Group: AME08, ID# [id number], Process claim through MedImp[employer], for questions: . THIS IS NOT INSURANCE.] diltiazem ER (XR/XT) 120 mg capsule,extended release,control led RxNorm: 303810 1 Capsule(s) PO QD 11/09/2013 11/03/2014 Inactive [SAVINGS FOR UN INSURED PATIENTS -- BIN:189457, PCN: ASPROD1, Group: AME08, ID# [id number], Process claim through MedImpact, for questions: . THIS IS NOT INSURANCE.] lisinopril 20 mg-hydrochlorothiazide 12.5 mg tablet RxNorm: 669953 2 Tablet(s) PO QAM 11/09/2013 11/20/2014 Inactive [AttnRPh: Saving apply/adjudicate RxGRP:SG20 RxBIN:[id number] RxPCN: ID#:[id number]] diltiazem ER (XR/XT) 120 mg capsule,extended release,control led RxNorm: 376713 1 Capsule(s) PO QD -need labs 10/31/2013 11/08/2013 Inactive [DELICIA INGS FOR UNINSURED PATIENTS -- BIN:547384, PCN: ASPROD1, Group: AME08, ID# [id number], Process claim through [employer], for questions: . THIS IS NOT INSURANCE.] lisinopril 20 mg-hydrochlorothiazide 12.5 mg tablet RxNorm: 261168 2 Tablet(s) PO QAM 10/31/2013 11/08/2013 Inactive [AttnRPh: Saving apply/adjudicate RxGRP:SG20 RxBIN:[id number] RxPCN: ID#:[id number]] diltiazem ER (XR/XT) 120 mg capsule,extended release,control led RxNorm: 256250 1 Capsule(s) PO QD -need labs 09/12/2013 10/11/2013 Inactive [DELICIA INGS FOR UNINSURED PATIENTS -- BIN:825737, PCN: ASPROD1, Group: AME, ID# [id number], Process claim through [employer], for questions: . THIS IS NOT INSURANCE.] Omnicef 300 mg capsule RxNorm: 231514 2 Capsule(s) PO QD 11/24/2012 0 11/08/2013 Inactive naproxen 500 mg tablet RxNorm: 230561 1 Tablet(s) PO TID 11/04/2012 0 11/03/2012 Inactive allopurinol 100 mg tablet RxNorm: 909659 1 Tablet(s) PO BID 013 11/08/2013 Inactive naproxen 500 mg tablet RxNorm: 494252 1 Tablet(s) PO TID 11/04/2012 0 11/08/2013 Inactive diltiazem ER (XR/XT) 120 mg capsule,extended release,control led RxNorm: 042153 1 Capsule(s) PO QD 08/02/2012 09/12/2013 Inactive lisinopril 20 mg-hydrochlorothiazide 12.5 mg tablet RxNorm: 970140 2 Tablet(s) PO QAM 08/02/2012 07/27/2013 Inactive acyclovir 800 mg tablet RxNorm: 154290 1 Tablet(s) PO D Take 1 tablet by mouth 5 times daily 02/26/2012 11/02/2012 Inactive acyclovir 800 mg tablet RxNorm: 788717 1 Tablet(s) PO D 02/25/2012 Inactive clindamycin 300 mg capsule RxNorm: 620015 1 Capsule(s) PO TID 02/2403/02/2012 Inactive lisinopril-hydrochlorothiazide 20 mg-12.5 mg tablet RxNorm: 655299 2 Tablet(s) PO QAM 01/30/2012 08/01/2012 Inactive diltiazem ER (XR/XT) 120 mg capsule,extended release,control led RxNorm: 443010 1 Capsule(s) PO QD 01/30/2012 08/01/2012 Inactive lisinopril-hydrochlorothiazide 20 mg-12.5 mg tablet RxNorm: 709536 2 Tablet(s) PO QAM 01/30/2012 10/11/2019 Inactive diltiazem ER (XR/XT) 120 mg capsule,extended release,control led RxNorm: 208955 1 Capsule(s) PO QD 01/30/2012 10/11/2019 Inactive Culturelle 10 billion cell capsule RxNorm: 795271 1 Capsule(s) PO Q D 10/16/2011 02/24/2012 Inactive Omnicef 300 mg capsule RxNorm: 384635 2 Capsule(s) PO QD 09/24/2011 0 11/02/2012 Inactive diltiazem ER (XR/XT) 120 mg capsule,extended release,control led RxNorm: 445733 1 Capsule(s) PO QD 09/09/2011 01/29/2012 Inactive Culturelle 10 billion cell Cap RxNorm: 184099 1 Capsule (s) PO BID take a few hours after Doxycycline. Probiotic 09/09/2011 09/28/2011 Inactive lisinopril-hydrochlorothiazide 20 mg-12.5 mg tablet RxNorm: 994877 2 Tablet(s) PO QAM 09/09/2011 01/29/2012 Inactive doxycycline hyclate 100 mg Tab RxNorm: 7466699 1 Tablet( s) PO BID antibiotic. (may make a little sensitive to sunburn) 09/09/2011 09/18/2011 Inactiv e lisinopril-hydrochlorothiazide 20 mg-12.5 mg Tab RxNorm: 197 886 2 Tablet(s) PO QAM Due for yearly check-up 09/08/2011 09/08/2011 Inactive diltiazem ER (XR/XT) 120 mg Continuous Release Cap RxNorm: 8 95636 1 Capsule(s) PO QD Due for yearly check-up. 09/08/2011 09/08/2011 Inactive diltiazem ER (XR/XT) 120 mg Continuous Release Cap RxNorm: 8 85882 1 Capsule(s) PO QD 08/29/2010 08/23/2011 Inactive lisinopril-hydrochlorothiazide 20 mg-12.5 mg Tab RxNorm: 197 886 2 Tablet(s) PO QAM 08/29/2010 08/23/2011 Inactive lisinopril-hydrochlorothiazide 20 mg-25 mg Tab RxNorm: 611830 1 Tablet(s) PO QD 08/21/2010 08/28/2010 Inactive allopurinol 100 mg tablet RxNorm: 006039 1 Tablet(s) PO QD 04/22/19 11 08/28/2010 Inactive allopurinol 100 mg Tab RxNorm: 729574 1 Tablet(s) PO QD 12/18/2009 Inactive Allopurinol 100 mg Tab RxNorm: 184207 1 Tablet(s) PO QD 12/12/2009 Inactive Allopurinol 100 mg Tab RxNorm: 387211 1 Tablet(s) PO QD 10/30/2009 Inactive Omnicef 300 mg Cap RxNorm: 561350 2 Capsule(s) PO QD 10/01/200910/29 Inactive Allopurinol 100 mg Tab RxNorm: 476255 1 Tablet(s) PO QD 10/01/2009 Inactive Vitamin D3 oral RxNorm: 2418 oral 04/18/2020 Active Vitamin C oral RxNorm: 1151 oral 04/18/2020 Active Vitamin B12 1000mcg Tablet RxNorm: 1 Tablet(s) PO QD 08/29/2010 Inactive lisinopril 20 mg-hydrochlorothiazide 12.5 mg tablet RxNorm: 768648 1 Tablet(s) PO QAM 11/20/2014 11/19/2014 Inactive Medrol (Sid) 4 mg tablets in a dose pack RxNorm: 469899 Tablet(s) PO as directed 11/09/2013 11/08/2013 Inactive Omnicef 300 mg Cap RxNorm: 780849 2 Capsule(s) PO QD 09/24/201112/11 Inactive Fish Oil 1,000 mg Cap RxNorm: 1 Capsule(s) PO QD 11/09/20132013 Inactive diltiazem ER (XR/XT) 120 mg Continuous Release Cap RxNorm: 8 79176 1 Capsule(s) PO QD 08/29/2010 08/28/2010 Inactive Culturelle 10 billion cell capsule RxNorm: 078526 1 Capsule(s) PO Q D 11/03/2012 11/02/2012 Inactive metformin ER 500 mg tablet,extended release 24hr RxNorm: 860 975 1 Tablet(s) PO QD 11/28/2013 11/27/2013 Inactive Lisinopril Oral RxNorm: Oral 10/01/2009 10/01/2009 Inactive Vitamin B12 1000mcg Tablet RxNorm: 1 Tablet(s) PO QD 12/18/2015 Inactive Vitamin B12 1000mcg Tablet RxNorm: 1 Tablet(s) PO QD 11/09/2013 Inactive lisinopril-hydrochlorothiazide 20 mg-25 mg Tab RxNorm: 397608 1 Tablet(s) PO QD 08/21/2010 2010 Inactive metformin ER 1,000 mg 24 hr tablet,extended release RxNorm: 493955 1 Tablet(s) PO QD 03/14/2014 03/13/2014 Inactive Fish Oil 1,000 mg capsule RxNorm: 1 Capsule(s) PO QD 12/18/2015 Inactive Medication Administered No Medication Administered data Immunizations Vaccine Codes Date Status B12 Unknown 09/24/2011 Results Observation Observation Code Item Item Code Result Date S ervice Location GLYCOSYLATED HEMOGLOBIN TEST 22043 Hgb A1c 14887-9 5.7 % 0 04/18/2020 Unknown GFR CALC 4522540 GFR Non Afr Amr >60 mL/min 04/18/2020 Un known GFR CALC 4667848 GFR Afr Amr >60 mL/min 04/18/2020 Unknow n COMPREHENSIVE METABOLIC 41683 AST 35 U/L 2020 Unknown COMPREHENSIVE METABOLIC 05457 ALT 45 U/L 2020 Unknown COMPREHENSIVE METABOLIC 47810 BUN 10 mg/dL 2020 Unknown COMPREHENSIVE METABOLIC 77809 ALBUMIN 4.3 g/dL 2020 Unknown COMPREHENSIVE METABOLIC 93875 CHLORIDE 101 mmol/L 04/18 Unknown COMPREHENSIVE METABOLIC 99084 Bili Total 0.8 mg/dL 04/18 Unknown COMPREHENSIVE METABOLIC 71760 ALK PHOS 73 U/L 2020 Unknown COMPREHENSIVE METABOLIC 12796 SODIUM 137 mmol/L 04/18 Unknown COMPREHENSIVE METABOLIC 40208 CREATININE 0.99 mg/dL 03/27 Unknown COMPREHENSIVE METABOLIC 18198 CALCIUM 9.1 mg/dL 2020 Unknown COMPREHENSIVE METABOLIC 34887 POTASSIUM 4.3 mmol/L 04/18 Unknown COMPREHENSIVE METABOLIC 42516 Total Protein 7.0 g/dL Unknown COMPREHENSIVE METABOLIC 98588 Glucose 133 mg/dL 2020 Unknown COMPREHENSIVE METABOLIC 43100 Bicarbonate 26 mmol/L 03/27 Unknown COMPREHENSIVE METABOLIC 14597 AGAP 10 mmol/L 2020 Unknown MEAN GLUC 8879457 Calc Mean Gluc 117 mg/dL 04/18/2020 Unkn own L[facility] 37430 Cholesterol 187 mg/dL 04/18/2020 Unkno wn [facility] 37365 Triglyceride 87 mg/dL 04/18/2020 Unkn own [facility] 76904 HDL CHOLESTEROL 59 mg/dL 04/18/2020 U nknown L[facility] GROUP 33122 Chol/HDL Ratio 3.17 ratio 04/18/2020 U nknown LIPID GROUP 98694 NON-HDL Chol 128 mg/dL 04/18/2020 Unkn own [facility] 64442 LDL Cholesterol 111 mg/dL 04/18/2020 U nknown HEPATITIS C ANTIBODY 59911 Hepatitis C Ab Non-Reactive 02/01/2018 Unknown GLYCOSYLATED HEMOGLOBIN TEST 87484 Hgb A1c 03110-0 6.2 % 1 04/01/2017 Unknown GFR CALC 7745950 GFR Non Afr Amr >60 mL/min 01/29/2018 Un known GFR CALC 3300331 GFR Afr Amr >60 mL/min 01/29/2018 Unknow n COMPREHENSIVE METABOLIC 78419 AST 17 U/L 2017 Unknown COMPREHENSIVE METABOLIC 62999 ALT 17 U/L 2017 Unknown COMPREHENSIVE METABOLIC 02072 BUN 12 mg/dL 2017 Unknown COMPREHENSIVE METABOLIC 81458 ALBUMIN 4.6 g/dL 2017 Unknown COMPREHENSIVE METABOLIC 93301 CHLORIDE 101 mmol/L 01/29 Unknown COMPREHENSIVE METABOLIC 11098 Bili Total 0.9 mg/dL 01/29 Unknown COMPREHENSIVE METABOLIC 29278 ALK PHOS 57 U/L 2017 Unknown COMPREHENSIVE METABOLIC 04094 SODIUM 136 mmol/L 01/29 Unknown COMPREHENSIVE METABOLIC 65734 CREATININE 1.00 mg/dL 08/2017 Unknown COMPREHENSIVE METABOLIC 97453 CALCIUM 9.6 mg/dL 2017 Unknown COMPREHENSIVE METABOLIC 41772 POTASSIUM 4.2 mmol/L 01/29 Unknown COMPREHENSIVE METABOLIC 48609 Total Protein 6.9 g/dL Unknown COMPREHENSIVE METABOLIC 02120 Glucose 128 mg/dL 2017 Unknown COMPREHENSIVE METABOLIC 17072 Bicarbonate 27 mmol/L 08/2017 Unknown COMPREHENSIVE METABOLIC 99619 AGAP 8 mmol/L 2017 Unknown LIPID GROUP 75959 Cholesterol 168 mg/dL 01/29/2018 Unkno wn LIPID GROUP 67843 Triglyceride 82 mg/dL 01/29/2018 Unkn own LIPID GROUP 77008 HDL CHOLESTEROL 43 mg/dL 01/29/2018 U nknown LIPID GROUP 67311 Chol/HDL Ratio 3.91 ratio 01/29/2018 U nknown LIPID GROUP 86367 NON-HDL Chol 125 mg/dL 01/29/2018 Unkn own LIPID GROUP 90331 LDL Cholesterol 109 mg/dL 01/29/2018 U nknown MEAN GLUC 4076133 Calc Mean Gluc 131 mg/dL 01/29/2018 Unkn own LIPID GROUP 04294 Cholesterol 164 mg/dL 05/01/2017 Unkno wn LIP[facility] GROUP 49487 Triglyceride 131 mg/dL 05/01/2017 Unkn own LIPID GROUP 12918 HDL CHOLESTEROL 45 mg/dL 05/01/2017 U [facility] LIPID GROUP 49326 Chol/HDL Ratio 3.64 ratio 05/01/2017 U [facility] LIPID GROUP 85667 NON-HDL Chol 119 mg/dL 05/01/2017 Unkn own LIPID GROUP 80639 LDL Cholesterol 93 mg/dL 05/01/2017 U [facility] COMPLETE BLOOD COUNT 2395242 WBC 4.9 10e9/L 05/02/19 18 Unknown COMPLETE BLOOD COUNT 6357764 RBC 4.31 10e12/L 2017 Unknown COMPLETE BLOOD COUNT 4621697 HEMOGLOBIN 14.3 g/dL 05/02/19 18 Unknown COMPLETE BLOOD COUNT 3749833 HEMATOCRIT 42.8 % 05/02/19 18 Unknown COMPLETE BLOOD COUNT 1726047 MCV 99.3 fL 8 Unknown COMPLETE BLOOD COUNT 5891453 MCH 33.2 pg 8 Unknown COMPLETE BLOOD COUNT 7379177 MCHC 33.4 g/dL 8 Unknown COMPLETE BLOOD COUNT 3686587 PLATELET COUNT 241 10e9/L 10/2017 Unknown COMPLETE BLOOD COUNT 0415409 Mean Plt Volume 11.0 fL 10/2017 Unknown COMPLETE BLOOD COUNT 2958894 Neut Auto 56.6 % 8 Unknown COMPLETE BLOOD COUNT 2475102 Lymph Auto 24.7 % 05/02/19 18 Unknown COMPLETE BLOOD COUNT 9769963 Mcdonald Auto 11.6 % 8 Unknown COMPLETE BLOOD COUNT 3527194 RDW 13.2 % 8 Unknown COMPLETE BLOOD COUNT 7318330 Eos Auto 6.9 % 8 Unknown COMPLETE BLOOD COUNT 1216239 Baso Auto 0.2 % 8 Unknown COMPLETE BLOOD COUNT 5925305 Neutrophil Abs 2.77 10e9/L Unknown COMPLETE BLOOD COUNT 3270062 Lymphocyte Abs 1.21 10e9/L Unknown COMPLETE BLOOD COUNT 8700069 Monocyte Abs 0.57 10e9/L 10/2017 Unknown COMPLETE BLOOD COUNT 6428087 Eosinophil Abs 0.34 10e9/L Unknown COMPLETE BLOOD COUNT 3308486 RDW-SD 47.2 fL 8 Unknown COMPLETE BLOOD COUNT 6913173 Basophil Abs 0.01 10e9/L 10/2017 Unknown GLYCOSYLATED HEMOGLOBIN TEST 16113 Hgb A1c 56329-2 6.0 % 0 05/01/2017 Unknown GFR CALC 3756446 GFR Non Afr Amr >60 mL/min 05/01/2017 Un known GFR CALC 7838590 GFR Afr Amr >60 mL/min 05/01/2017 Unknow n MEAN GLUC 8534028 Calc Mean Gluc 126 mg/dL 05/01/2017 Unkn own COMPREHENSIVE METABOLIC 26207 AST 17 U/L 2017 Unknown COMPREHENSIVE METABOLIC 61746 ALT 16 U/L 2017 Unknown COMPREHENSIVE METABOLIC 30559 BUN 13 mg/dL 2017 Unknown COMPREHENSIVE METABOLIC 51752 ALBUMIN 3.9 g/dL 2017 Unknown COMPREHENSIVE METABOLIC 73171 CHLORIDE 104 mmol/L 05/01 Unknown COMPREHENSIVE METABOLIC 53782 Bili Total 0.7 mg/dL 05/01 Unknown COMPREHENSIVE METABOLIC 69907 ALK PHOS 58 U/L 2017 Unknown COMPREHENSIVE METABOLIC 73352 SODIUM 139 mmol/L 05/01 Unknown COMPREHENSIVE METABOLIC 11331 CREATININE 0.99 mg/dL 10/2017 Unknown COMPREHENSIVE METABOLIC 73515 CALCIUM 9.5 mg/dL 2017 Unknown COMPREHENSIVE METABOLIC 36061 POTASSIUM 4.3 mmol/L 05/01 Unknown COMPREHENSIVE METABOLIC 78654 Total Protein 6.7 g/dL Unknown COMPREHENSIVE METABOLIC 76164 Glucose 110 mg/dL 2017 Unknown COMPREHENSIVE METABOLIC 92680 Bicarbonate 27 mmol/L 10/2017 Unknown COMPREHENSIVE METABOLIC 56176 AGAP 8 mmol/L 2017 Unknown PSA EQUIMOLAR NITHIN 65092 PSA Total 1.10 ng/mL 8 Unknown THYROID STIMULATING HORMONE 68721 TSH 0.673 uIU/mL 05/01/2017 Unknown GLYCOSYLATED HEMOGLOBIN TEST 38206 Hgb A1c 76229-7 5.8 % 1 03/08/2015 Unknown MEAN GLUC 1319199 Calc Mean Gluc 120 mg/dL 01/07/2016 Unkn own FREE T4 17428 T4 Free 1.13 ng/dL 01/04/2016 Unknown THYROID STIMULATING HORMONE 58112 TSH 0.875 uIU/mL 01/04/2016 Unknown COMPREHENSIVE METABOLIC 93979 AST 20 U/L 2015 Unknown COMPREHENSIVE METABOLIC 12115 ALT 20 U/L 2015 Unknown COMPREHENSIVE METABOLIC 68038 BUN 14 mg/dL 2015 Unknown COMPREHENSIVE METABOLIC 32391 ALBUMIN 4.4 g/dL 2015 Unknown COMPREHENSIVE METABOLIC 20648 CHLORIDE 103 mmol/L 01/03 Unknown COMPREHENSIVE METABOLIC 17892 Bili Total 0.5 mg/dL 01/03 Unknown COMPREHENSIVE METABOLIC 37946 ALK PHOS 53 U/L 2015 Unknown COMPREHENSIVE METABOLIC 32158 SODIUM 137 mmol/L 01/03 Unknown COMPREHENSIVE METABOLIC 48389 CREATININE 0.98 mg/dL 12/24 Unknown COMPREHENSIVE METABOLIC 73604 CALCIUM 9.6 mg/dL 2015 Unknown COMPREHENSIVE METABOLIC 12039 POTASSIUM 4.5 mmol/L 01/03 Unknown COMPREHENSIVE METABOLIC 08385 Total Protein 7.0 g/dL Unknown COMPREHENSIVE METABOLIC 86083 Glucose 117 mg/dL 2015 Unknown COMPREHENSIVE METABOLIC 80083 Bicarbonate 26 mmol/L 12/24 Unknown COMPREHENSIVE METABOLIC 82479 AGAP 8 mmol/L 2015 Unknown COMPLETE BLOOD COUNT 5928889 WBC 6.2 10e9/L 01/04/20 16 Unknown COMPLETE BLOOD COUNT 7005670 RBC 4.55 10e12/L 2015 Unknown COMPLETE BLOOD COUNT 1355658 HEMOGLOBIN 15.0 g/dL 01/04/20 16 Unknown COMPLETE BLOOD COUNT 6655457 HEMATOCRIT 43.8 % 01/04/20 16 Unknown COMPLETE BLOOD COUNT 6814313 MCV 96.3 fL 6 Unknown COMPLETE BLOOD COUNT 2800189 MCH 33.0 pg 6 Unknown COMPLETE BLOOD COUNT 5811264 MCHC 34.2 g/dL 6 Unknown COMPLETE BLOOD COUNT [id number] PLATELET COUNT 259 10e9/L 12/2015 Unknown COMPLETE BLOOD COUNT [id number] Mean Plt Volume 10.8 fL 12/2015 Unknown COMPLETE BLOOD COUNT [id number] Neut Auto 62.4 % 6 Unknown COMPLETE BLOOD COUNT [id number] Lymph Auto 25.9 % 01/04/20 16 Unknown COMPLETE BLOOD COUNT [id number] Mcdonald Auto 6.8 % 6 Unknown COMPLETE BLOOD COUNT [id number] RDW 13.4 % 6 Unknown COMPLETE BLOOD COUNT [id number] Eos Auto 4.9 % 6 Unknown COMPLETE BLOOD COUNT [id number] Baso Auto 0.0 % 6 Unknown COMPLETE BLOOD COUNT [id number] Neutrophil Abs 3.87 10e9/L Unknown COMPLETE BLOOD COUNT [id number] Lymphocyte Abs 1.61 10e9/L Unknown COMPLETE BLOOD COUNT [id number] Monocyte Abs 0.42 10e9/L 12/24 Unknown COMPLETE BLOOD COUNT [id number] Eosinophil Abs 0.30 10e9/L Unknown COMPLETE BLOOD COUNT [id number] RDW-SD 46.2 fL 6 Unknown COMPLETE BLOOD COUNT [id number] Basophil Abs 0.00 10e9/L 12/24 Unknown PSA EQUIMOLAR NITHIN 76819 PSA Total 1.14 ng/mL 6 Unknown GFR CALC [id number] GFR Non Afr Amr >60 mL/min 01/04/2016 Un known GFR CALC [id number] GFR Afr Amr >60 mL/min 01/04/2016 Unknow n LIP[facility] 77188 Cholesterol 172 mg/dL 01/04/2016 Unkno wn LIP[facility] GROUP 25720 Triglyceride 156 mg/dL 01/04/2016 Unkn own L[facility] GROUP 17438 HDL CHOLESTEROL 42 mg/dL 01/04/2016 U nknown LIP[facility] GROUP 96555 Chol/HDL Ratio 4.10 ratio 01/04/2016 U nknown LIPID GROUP 63619 NON-HDL Chol 130 mg/dL 01/04/2016 Unkn own LIPID GROUP 72344 LDL Cholesterol 99 mg/dL 01/04/2016 U nknown GLYCOSYLATED HEMOGLOBIN TEST 26944 A1C HPLC 53044-3 5.8 % 1 04/10/2014 Unknown COMPLETE BLOOD COUNT [id number] WBC 6.0 10e9/L 02/03/20 15 Unknown COMPLETE BLOOD COUNT [id number] RBC 4.39 10e12/L 2014 Unknown COMPLETE BLOOD COUNT [id number] HGB 14.3 g/dL 5 Unknown COMPLETE BLOOD COUNT [id number] HCT DET 41.7 % 5 Unknown COMPLETE BLOOD COUNT [id number] MCV 95.0 fL 5 Unknown COMPLETE BLOOD COUNT [id number] MCH 32.6 pg 5 Unknown COMPLETE BLOOD COUNT [id number] MCHC 34.3 g/dL 5 Unknown COMPLETE BLOOD COUNT [id number] PLT 272 10e9/L 02/03/20 15 Unknown COMPLETE BLOOD COUNT [id number] MPV 11.1 fL 5 Unknown COMPLETE BLOOD COUNT [id number] GARY % 62.7 % 5 Unknown COMPLETE BLOOD COUNT [id number] LY % 25.2 % 5 Unknown COMPLETE BLOOD COUNT [id number] MON % 7.9 % 5 Unknown COMPLETE BLOOD COUNT [id number] EOS % 4.0 % 5 Unknown COMPLETE BLOOD COUNT [id number] BASO % 0.2 % 5 Unknown COMPLETE BLOOD COUNT [id number] RDW 13.2 % 5 Unknown COMPLETE BLOOD COUNT [id number] ABS GARY 3.76 10e9/L 015 Unknown COMPLETE BLOOD COUNT [id number] ABS LYMPH 1.51 10e9/L 015 Unknown COMPLETE BLOOD COUNT [id number] ABS MONO 0.47 10e9/L 015 Unknown COMPLETE BLOOD COUNT [id number] ABS EOS 0.24 10e9/L 015 Unknown COMPLETE BLOOD COUNT [id number] ABS BASO 0.01 10e9/L 015 Unknown COMPLETE BLOOD COUNT [id number] RDW-SD 44.7 fL 5 Unknown GFR CALC [id number] GFR AA >60 ML/MIN 02/02/2015 Unknown GFR CALC 7134677 GFR NON-AA >60 ML/MIN 02/02/2015 Unknown THYROID STIMULATING HORMONE 61583 TSH 0.970 uIU/ML 02/02/2015 Unknown LIPID GROUP 72890 HDL TEST 41 MG/DL 02/02/2015 Unknown LIPID GROUP 08412 TRIG 151 MG/DL 02/02/2015 Unknown LIPID GROUP 71932 TEST LDL 122 MG/DL 02/02/2015 Unknown LIPID GROUP 43826 CHOL 193 MG/DL 02/02/2015 Unknown LIPID GROUP 35536 RCHOL/HDL 4.71 RATIO 02/02/2015 Unknow n LIPID GROUP 01299 NON-HDL CH 152 MG/DL 02/02/2015 Unknow n PSA EQUIMOLAR NITHIN 60744 PSA EQ 0.76 NG/ML 5 Unknown FREE T4 89804 FREE T4 0.93 NG/DL 02/02/2015 Unknown COMPREHENSIVE METABOLIC 44492 AST 21 U/L 2014 Unknown COMPREHENSIVE METABOLIC 01155 ALT 21 IU/L 2014 Unknown COMPREHENSIVE METABOLIC 98510 BUN 15 MG/DL 2014 Unknown COMPREHENSIVE METABOLIC 70133 ALBUMIN 4.5 GM/DL 2014 Unknown COMPREHENSIVE METABOLIC 36828 CHLORIDE 104 MMOL/L 02/02 Unknown COMPREHENSIVE METABOLIC 33399 BILI TOT 1.0 MG/DL 2014 Unknown COMPREHENSIVE METABOLIC 93390 ALK PHOS 71 U/L 2014 Unknown COMPREHENSIVE METABOLIC 71131 SODIUM 136 MMOL/L 02/02 Unknown COMPREHENSIVE METABOLIC 50552 CREATININE 0.94 MG/DL 01/23 Unknown COMPREHENSIVE METABOLIC 74752 CALCIUM 9.8 MG/DL 2014 Unknown COMPREHENSIVE METABOLIC 67550 POTASSIUM 4.3 MMOL/L 02/02 Unknown COMPREHENSIVE METABOLIC 74351 PROT TOT 6.9 GM/DL 2014 Unknown COMPREHENSIVE METABOLIC 91124 Glucose 113 MG/DL 2014 Unknown COMPREHENSIVE METABOLIC 52325 BICARB 26 MMOL/L 2014 Unknown COMPREHENSIVE METABOLIC 90621 ANION GAP 6 MEQ/L 2014 Unknown ANTI STREPTOLYSIN O TITER(ASO) 73948 ASO 57 IU/ML 06/19/2014 Unknown RA FACTOR 46012 RA FACTOR <20.0 IU/ML 06/15/2014 Unknown FREE T4 74916 FREE T4 1.19 NG/DL 06/15/2014 Unknown ANTINUCLEAR ANTIBODY SCREEN 15672 SHANNON SCR <1:80 Unknown ERYTHROCYTE SEDIMENTATION RATE 72444 ESR 2 MM/HR 06/14/2014 Unknown COMPLETE BLOOD COUNT [id number] WBC 6.7 10e9/L 06/15/19 15 Unknown COMPLETE BLOOD COUNT [id number] RBC 4.86 10e12/L 2014 Unknown COMPLETE BLOOD COUNT 9115112 HGB 15.9 g/dL 5 Unknown COMPLETE BLOOD COUNT [id number] HCT DET 45.0 % 5 Unknown COMPLETE BLOOD COUNT 4425822 MCV 92.6 fL 5 Unknown COMPLETE BLOOD COUNT 6790130 MCH 32.7 pg 5 Unknown COMPLETE BLOOD COUNT [id number] MCHC 35.3 g/dL 5 Unknown COMPLETE BLOOD COUNT 3090507 PLT 299 10e9/L 06/15/19 15 Unknown COMPLETE BLOOD COUNT [id number] MPV 10.0 fL 5 Unknown COMPLETE BLOOD COUNT 2768001 GARY % 63.8 % 5 Unknown COMPLETE BLOOD COUNT 1509573 LY % 18.3 % 5 Unknown COMPLETE BLOOD COUNT [id number] MON % 12.1 % 5 Unknown COMPLETE BLOOD COUNT 2548339 EOS % 5.7 % 5 Unknown COMPLETE BLOOD COUNT [id number] BASO % 0.1 % 5 Unknown COMPLETE BLOOD COUNT 1674880 RDW 13.3 % 5 Unknown COMPLETE BLOOD COUNT 1474012 ABS GARY 4.27 10e9/L 015 Unknown COMPLETE BLOOD COUNT [id number] ABS LYMPH 1.23 10e9/L 015 Unknown COMPLETE BLOOD COUNT [id number] ABS MONO 0.81 10e9/L 015 Unknown COMPLETE BLOOD COUNT 8685673 ABS EOS 0.38 10e9/L 015 Unknown COMPLETE BLOOD COUNT [id number] ABS BASO 0.01 10e9/L 015 Unknown COMPLETE BLOOD COUNT [id number] RDW-SD 44.3 fL 5 Unknown URIC ACID 88714 URIC ACID 7.6 MG/DL 06/14/[place] [address] SYP AB NR 06/14/2014 Unknown THYROID STIMULATING HORMONE 39263 TSH 0.825 uIU/ML 06/14/2014 Unknown GLYCOSYLATED HEMOGLOBIN TEST 65580 A1C HPLC 18704-0 6.0 % 0 06/14/2014 Unknown VITAMIN B 12 FOLIC ACID 99323|68473 VIT B 12 751 PG/ML 05/25 Unknown VITAMIN B 12 FOLIC ACID 15542|78283 FOLIC ACID 23.5 NG/ML Unknown GFR CALC 0613008 GFR AA >60 ML/MIN 06/14/2014 Unknown GFR CALC 8402744 GFR NON-AA >60 ML/MIN 06/14/2014 Unknown C-REACTIVE PROTEIN (CRP) QUANT 63962 CRP 0.1 MG/DL 06/14/2014 Unknown COMPREHENSIVE METABOLIC 71191 AST 19 U/L 2014 Unknown COMPREHENSIVE METABOLIC 86184 ALT 16 IU/L 2014 Unknown COMPREHENSIVE METABOLIC 68739 BUN 13 MG/DL 2014 Unknown COMPREHENSIVE METABOLIC 45330 ALBUMIN 5.1 GM/DL 2014 Unknown COMPREHENSIVE METABOLIC 23425 CHLORIDE 92 MMOL/L 2014 Unknown COMPREHENSIVE METABOLIC 13944 BILI TOT 0.6 MG/DL 2014 Unknown COMPREHENSIVE METABOLIC 77471 ALK PHOS 61 U/L 2014 Unknown COMPREHENSIVE METABOLIC 72756 SODIUM 128 MMOL/L 06/14 Unknown COMPREHENSIVE METABOLIC 56849 CREATININE 1.00 MG/DL 05/25 Unknown COMPREHENSIVE METABOLIC 31273 CALCIUM 10.7 MG/DL 06/14 Unknown COMPREHENSIVE METABOLIC 74252 POTASSIUM 4.1 MMOL/L 06/14 Unknown COMPREHENSIVE METABOLIC 67956 PROT TOT 7.6 GM/DL 2014 Unknown COMPREHENSIVE METABOLIC 60578 Glucose 106 MG/DL 2014 Unknown COMPREHENSIVE METABOLIC 37016 BICARB 29 MMOL/L 2014 Unknown COMPREHENSIVE METABOLIC 72076 ANION GAP 7 MEQ/L 2014 Unknown COMPREHENSIVE METABOLIC 75085 AST 21 U/L 2014 Unknown COMPREHENSIVE METABOLIC 65067 ALT 26 IU/L 2014 Unknown COMPREHENSIVE METABOLIC 59059 BUN 16 MG/DL 2014 Unknown COMPREHENSIVE METABOLIC 23895 ALBUMIN 4.6 GM/DL 2014 Unknown COMPREHENSIVE METABOLIC 79770 CHLORIDE 99 MMOL/L 2014 Unknown COMPREHENSIVE METABOLIC 61558 BILI TOT 0.5 MG/DL 2014 Unknown COMPREHENSIVE METABOLIC 73695 ALK PHOS 57 U/L 2014 Unknown COMPREHENSIVE METABOLIC 74032 SODIUM 134 MMOL/L 03/09 Unknown COMPREHENSIVE METABOLIC 33271 CREATININE 0.91 MG/DL 02/23 Unknown COMPREHENSIVE METABOLIC 09355 CALCIUM 9.9 MG/DL 2014 Unknown COMPREHENSIVE METABOLIC 54877 POTASSIUM 4.3 MMOL/L 03/09 Unknown COMPREHENSIVE METABOLIC 26486 PROT TOT 7.0 GM/DL 2014 Unknown COMPREHENSIVE METABOLIC 87128 Glucose 91 MG/DL 2014 Unknown COMPREHENSIVE METABOLIC 47519 BICARB 30 MMOL/L 2014 Unknown COMPREHENSIVE METABOLIC 68313 ANION GAP 5 MEQ/L 2014 Unknown GLYCOSYLATED HEMOGLOBIN TEST 58501 A1C HPLC 04106-1 6.4 % 0 03/09/2014 Unknown GFR CALC 6588347 GFR AA >60 ML/MIN 03/09/2014 Unknown GFR CALC 8708047 GFR NON-AA >60 ML/MIN 03/09/2014 Unknown GLYCOSYLATED HEMOGLOBIN TEST 12973 A1C HPLC 80891-6 6.0 % 0 11/22/2013 Unknown THYROID STIMULATING HORMONE 39276 TSH 0.643 uIU/ML 11/18/2013 Unknown PSA EQUIMOLAR NITHIN 66601 PSA EQ 0.75 NG/ML 4 Unknown COMPREHENSIVE METABOLIC 14180 AST 21 U/L 2013 Unknown COMPREHENSIVE METABOLIC 44020 ALT 22 IU/L 2013 Unknown COMPREHENSIVE METABOLIC 69419 BUN 16 MG/DL 2013 Unknown COMPREHENSIVE METABOLIC 81069 ALBUMIN 4.6 GM/DL 2013 Unknown COMPREHENSIVE METABOLIC 09663 CHLORIDE 97 MMOL/L 2013 Unknown COMPREHENSIVE METABOLIC 23270 BILI TOT 0.8 MG/DL 2013 Unknown COMPREHENSIVE METABOLIC 07962 ALK PHOS 68 U/L 2013 Unknown COMPREHENSIVE METABOLIC 03073 SODIUM 132 MMOL/L 11/18 Unknown COMPREHENSIVE METABOLIC 20471 CREATININE 0.95 MG/DL 10/25 Unknown COMPREHENSIVE METABOLIC 82915 CALCIUM 10.1 MG/DL 11/18 Unknown COMPREHENSIVE METABOLIC 29773 POTASSIUM 4.2 MMOL/L 11/18 Unknown COMPREHENSIVE METABOLIC 14195 PROT TOT 7.2 GM/DL 2013 Unknown COMPREHENSIVE METABOLIC 23734 Glucose 125 MG/DL 2013 Unknown COMPREHENSIVE METABOLIC 82352 BICARB 26 MMOL/L 2013 Unknown COMPREHENSIVE METABOLIC 93550 ANION GAP 9 MEQ/L 2013 Unknown COMPLETE BLOOD COUNT 2048523 WBC 7.3 10e9/L 11/19/19 14 Unknown COMPLETE BLOOD COUNT 4963580 RBC 4.68 10e12/L 2013 Unknown COMPLETE BLOOD COUNT 9317270 HGB 15.4 g/dL 4 Unknown COMPLETE BLOOD COUNT 0224888 HCT DET 43.4 % 4 Unknown COMPLETE BLOOD COUNT 6551874 MCV 92.7 fL 4 Unknown COMPLETE BLOOD COUNT 1254872 MCH 32.9 pg 4 Unknown COMPLETE BLOOD COUNT 2764806 MCHC 35.5 g/dL 4 Unknown COMPLETE BLOOD COUNT 6384985 PLT 286 10e9/L 11/19/19 14 Unknown COMPLETE BLOOD COUNT 8988578 MPV 10.8 fL 4 Unknown COMPLETE BLOOD COUNT 9382829 GARY % 61.6 % 4 Unknown COMPLETE BLOOD COUNT 3769744 LY % 25.6 % 4 Unknown COMPLETE BLOOD COUNT 1727780 MON % 8.7 % 4 Unknown COMPLETE BLOOD COUNT 2184011 EOS % 4.0 % 4 Unknown COMPLETE BLOOD COUNT 7452941 BASO % 0.1 % 4 Unknown COMPLETE BLOOD COUNT 2284004 RDW 12.9 % 4 Unknown COMPLETE BLOOD COUNT [id number] ABS GARY 4.50 10e9/L 014 Unknown COMPLETE BLOOD COUNT 9870271 ABS LYMPH 1.87 10e9/L 014 Unknown COMPLETE BLOOD COUNT 2872147 ABS MONO 0.64 10e9/L 014 Unknown COMPLETE BLOOD COUNT 6236393 ABS EOS 0.29 10e9/L 014 Unknown COMPLETE BLOOD COUNT 3286165 ABS BASO 0.01 10e9/L 014 Unknown COMPLETE BLOOD COUNT 3768091 RDW-SD 42.9 fL 4 Unknown LIPID GROUP 16749 HDL TEST 52 MG/DL 11/18/2013 Unknown LIPID GROUP 65981 TRIG 100 MG/DL 11/18/2013 Unknown LIPID GROUP 03567 TEST LDL 110 MG/DL 11/18/2013 Unknown LIPID GROUP 37851 CHOL 182 MG/DL 11/18/2013 Unknown LIPID GROUP 33572 RCHOL/HDL 3.50 RATIO 11/18/2013 Unknow n LIPID GROUP 86759 NON-HDL CH 130 MG/DL 11/18/2013 Unknow n FREE T4 16850 FREE T4 1.28 NG/DL 11/18/2013 Unknown GFR CALC 0729201 GFR AA >60 ML/MIN 11/18/2013 Unknown GFR CALC 0090613 GFR NON-AA >60 ML/MIN 11/18/2013 Unknown COMPREHENSIVE METABOLIC 95823 AST 21 U/L 2012 Unknown COMPREHENSIVE METABOLIC 48374 ALT 20 IU/L 2012 Unknown COMPREHENSIVE METABOLIC 00484 BUN 12 MG/DL 2012 Unknown COMPREHENSIVE METABOLIC 08109 ALBUMIN 4.6 GM/DL 2012 Unknown COMPREHENSIVE METABOLIC 65769 CHLORIDE 105 MMOL/L 11/03 Unknown COMPREHENSIVE METABOLIC 22333 BILI TOT 0.5 MG/DL 2012 Unknown COMPREHENSIVE METABOLIC 90165 ALK PHOS 53 U/L 2012 Unknown COMPREHENSIVE METABOLIC 41154 SODIUM 138 MMOL/L 11/03 Unknown COMPREHENSIVE METABOLIC 02516 CREATININE 0.93 MG/DL 10/24 Unknown COMPREHENSIVE METABOLIC 77147 CALCIUM 9.7 MG/DL 2012 Unknown COMPREHENSIVE METABOLIC 96437 POTASSIUM 4.3 MMOL/L 11/03 Unknown COMPREHENSIVE METABOLIC 32423 PROT TOT 7.0 GM/DL 2012 Unknown COMPREHENSIVE METABOLIC 15822 Glucose 117 MG/DL 2012 Unknown COMPREHENSIVE METABOLIC 44167 BICARB 25 MMOL/L 2012 Unknown COMPREHENSIVE METABOLIC 09549 ANION GAP 8 MEQ/L 2012 Unknown GFR CALC 2420646 GFR AA >60 ML/MIN 11/03/2012 Unknown GFR CALC 4465243 GFR NON-AA >60 ML/MIN 11/03/2012 Unknown THYROID STIMULATING HORMONE 51013 TSH 1.218 uIU/ML 11/03/2012 Unknown URIC ACID 77177 URIC ACID 7.6 MG/DL 11/03/2012 Unknown COMPLETE BLOOD COUNT [id number] WBC 5.0 10e9/L 11/04/19 13 Unknown COMPLETE BLOOD COUNT 2425754 RBC 4.70 10e12/L 2012 Unknown COMPLETE BLOOD COUNT 1978074 HGB 15.6 g/dL 3 Unknown COMPLETE BLOOD COUNT 4119430 HCT DET 44.2 % 3 Unknown COMPLETE BLOOD COUNT 8836445 MCV 94.0 fL 3 Unknown COMPLETE BLOOD COUNT 4179114 MCH 33.2 pg 3 Unknown COMPLETE BLOOD COUNT 8973396 MCHC 35.3 g/dL 3 Unknown COMPLETE BLOOD COUNT 6804547 PLT 248 10e9/L 11/04/19 13 Unknown COMPLETE BLOOD COUNT 2146426 MPV 10.9 fL 3 Unknown COMPLETE BLOOD COUNT 3596827 GARY % 58.3 % 3 Unknown COMPLETE BLOOD COUNT 1261886 LY % 27.9 % 3 Unknown COMPLETE BLOOD COUNT 5263169 MON % 7.0 % 3 Unknown COMPLETE BLOOD COUNT 3079373 EOS % 6.6 % 3 Unknown COMPLETE BLOOD COUNT 0953269 BASO % 0.2 % 3 Unknown COMPLETE BLOOD COUNT 2445979 RDW 13.2 % 3 Unknown COMPLETE BLOOD COUNT 9422152 ABS GARY 2.92 10e9/L 013 Unknown COMPLETE BLOOD COUNT 8145985 ABS LYMPH 1.40 10e9/L 013 Unknown COMPLETE BLOOD COUNT 6262228 ABS MONO 0.35 10e9/L 013 Unknown COMPLETE BLOOD COUNT 7397032 ABS EOS 0.33 10e9/L 013 Unknown COMPLETE BLOOD COUNT 3266411 ABS BASO 0.01 10e9/L 013 Unknown COMPLETE BLOOD COUNT 4185750 RDW-SD 44.1 fL 3 Unknown HERPE1/2MG 89584|32453|11590 HSV G1 EIA 1.78 INDEX 3 Unknown HERPE1/2MG 07696|94883|97499 HSVM1/2EIA 0.15 02/26/2012 Unknown HERPE1/2MG 17766|40129|99361 HSV G2 EIA 10.14 INDEX 02/25/19 13 Unknown COMPLETE BLOOD COUNT [id number] WBC 9.4 10e9/L 02/24/19 13 Unknown COMPLETE BLOOD COUNT 2346041 RBC 4.54 10e12/L 2012 Unknown COMPLETE BLOOD COUNT 5743717 HGB 14.9 g/dL 3 Unknown COMPLETE BLOOD COUNT 7645658 HCT DET 43.0 % 3 Unknown COMPLETE BLOOD COUNT 7255886 MCV 94.7 fL 3 Unknown COMPLETE BLOOD COUNT 2504508 MCH 32.8 pg 3 Unknown COMPLETE BLOOD COUNT 4979322 MCHC 34.7 g/dL 3 Unknown COMPLETE BLOOD COUNT 3992663 PLT 251 10e9/L 02/24/19 13 Unknown COMPLETE BLOOD COUNT 5288753 MPV 11.1 fL 3 Unknown COMPLETE BLOOD COUNT [id number] GARY % 75.0 % 3 Unknown COMPLETE BLOOD COUNT 6397983 LY % 15.7 % 3 Unknown COMPLETE BLOOD COUNT 0948373 MON % 6.8 % 3 Unknown COMPLETE BLOOD COUNT 5861261 EOS % 2.3 % 3 Unknown COMPLETE BLOOD COUNT 2082355 BASO % 0.2 % 3 Unknown COMPLETE BLOOD COUNT 7822774 RDW 13.2 % 3 Unknown COMPLETE BLOOD COUNT 1581794 ABS GARY 7.05 10e9/L 013 Unknown COMPLETE BLOOD COUNT 3191871 ABS LYMPH 1.48 10e9/L 013 Unknown COMPLETE BLOOD COUNT [id number] ABS MONO 0.64 10e9/L 013 Unknown COMPLETE BLOOD COUNT [id number] ABS EOS 0.22 10e9/L 013 Unknown COMPLETE BLOOD COUNT [id number] ABS BASO 0.02 10e9/L 013 Unknown COMPLETE BLOOD COUNT 1875979 RDW-SD 44.3 fL 3 Unknown COMPREHENSIVE METABOLIC 89169 AST 21 U/L 2012 Unknown COMPREHENSIVE METABOLIC 68176 ALT 22 IU/L 2012 Unknown COMPREHENSIVE METABOLIC 75606 BUN 12 MG/DL 2012 Unknown COMPREHENSIVE METABOLIC 09452 ALBUMIN 4.9 GM/DL 2012 Unknown COMPREHENSIVE METABOLIC 33301 CHLORIDE 102 MMOL/L 02/24 Unknown COMPREHENSIVE METABOLIC 40279 BILI TOT 0.6 MG/DL 2012 Unknown COMPREHENSIVE METABOLIC 76092 ALK PHOS 59 U/L 2012 Unknown COMPREHENSIVE METABOLIC 18188 SODIUM 137 MMOL/L 02/24 Unknown COMPREHENSIVE METABOLIC 80083 CREATININE 0.92 MG/DL 03/2012 Unknown COMPREHENSIVE METABOLIC 85785 CALCIUM 9.7 MG/DL 2012 Unknown COMPREHENSIVE METABOLIC 31969 POTASSIUM 4.1 MMOL/L 02/24 Unknown COMPREHENSIVE METABOLIC 61703 PROT TOT 6.9 GM/DL 2012 Unknown COMPREHENSIVE METABOLIC 09251 Glucose 127 MG/DL 2012 Unknown COMPREHENSIVE METABOLIC 65094 BICARB 25 MMOL/L 2012 Unknown COMPREHENSIVE METABOLIC 76566 ANION GAP 10 MEQ/L 2012 Unknown GFR CALC 5064348 GFR AA >60 ML/MIN 02/25/2012 Unknown GFR CALC 9940989 GFR NON-AA >60 ML/MIN 02/25/2012 Unknown TULAREM AB [id number] TULAREM AB <1:20 09/23/2011 Unknown [place] [place] 63575I5 IGG RMSF <1:16 0 09/19/2011 Unknown [employer] [place] [employer] [id number] IGM RMSF <1:10 0 09/19/2011 Unknown E CHAFF AB 8207798 IGG E CHFF <1:16 09/19/2011 Unknown E CHAFF AB 2809068 IGM E CHFF <1:10 09/19/2011 Unknown GLYCOSYLATED HEMOGLOBIN TEST 23522 A1C [facility] 10891-6 5.4 % 0 09/18/2011 Unknown GFR CALC 9379468 GFR AA >60 ML/MIN 09/17/2011 Unknown GFR CALC 5311086 GFR NON-AA >60 ML/MIN 09/17/2011 Unknown VITAMIN B 12 FOLIC ACID 90693|06769 VIT B 12 405 PG/ML 08/24 Unknown VITAMIN B 12 FOLIC ACID 64065|18410 FOLIC ACID 17.5 NG/ML Unknown COMPREHENSIVE METABOLIC 88079 AST 19 U/L 2011 Unknown COMPREHENSIVE METABOLIC 75679 ALT 19 IU/L 2011 Unknown COMPREHENSIVE METABOLIC 65007 BUN 12 MG/DL 2011 Unknown COMPREHENSIVE METABOLIC 02805 ALBUMIN 4.9 GM/DL 2011 Unknown COMPREHENSIVE METABOLIC 82985 CHLORIDE 98 MMOL/L 2011 Unknown COMPREHENSIVE METABOLIC 20507 BILI TOT 1.2 MG/DL 2011 Unknown COMPREHENSIVE METABOLIC 35522 ALK PHOS 60 U/L 2011 Unknown COMPREHENSIVE METABOLIC 06459 SODIUM 133 MMOL/L 09/16 Unknown COMPREHENSIVE METABOLIC 46813 CREATININE 1.12 MG/DL 08/24 Unknown COMPREHENSIVE METABOLIC 11323 CALCIUM 10.1 MG/DL 09/16 Unknown COMPREHENSIVE METABOLIC 44939 POTASSIUM 4.1 MMOL/L 09/16 Unknown COMPREHENSIVE METABOLIC 06345 PROT TOT 7.6 GM/DL 2011 Unknown COMPREHENSIVE METABOLIC 32418 Glucose 121 MG/DL 2011 Unknown COMPREHENSIVE METABOLIC 01733 BICARB 25 MMOL/L 2011 Unknown COMPREHENSIVE METABOLIC 44093 ANION GAP 10 MEQ/L 2011 Unknown COMPLETE BLOOD COUNT 40300 WBC 5.8 10e9/L 09/17/19 12 Unknown COMPLETE BLOOD COUNT 88137 RBC 5.01 10e12/L 2011 Unknown COMPLETE BLOOD COUNT 70273 HGB 16.4 g/dL 2 Unknown COMPLETE BLOOD COUNT 47448 HCT DET 46.7 % 2 Unknown COMPLETE BLOOD COUNT 45138 MCV 93.2 fL 2 Unknown COMPLETE BLOOD COUNT 49521 MCH 32.7 pg 2 Unknown COMPLETE BLOOD COUNT 68972 MCHC 35.1 g/dL 2 Unknown COMPLETE BLOOD COUNT 24480 PLT 275 10e9/L 09/17/19 12 Unknown COMPLETE BLOOD COUNT 84628 MPV 10.8 fL 2 Unknown COMPLETE BLOOD COUNT 31411 GARY % 47.1 % 2 Unknown COMPLETE BLOOD COUNT 74578 LY % 37.2 % 2 Unknown COMPLETE BLOOD COUNT 13049 MON % 9.5 % 2 Unknown COMPLETE BLOOD COUNT 56944 EOS % 5.9 % 2 Unknown COMPLETE BLOOD COUNT 03379 BASO % 0.3 % 2 Unknown COMPLETE BLOOD COUNT 10671 RDW 13.0 % 2 Unknown COMPLETE BLOOD COUNT 53572 ABS GARY 2.73 10e9/L 012 Unknown COMPLETE BLOOD COUNT 95259 ABS LYMPH 2.16 10e9/L 012 Unknown COMPLETE BLOOD COUNT 82858 ABS MONO 0.55 10e9/L 012 Unknown COMPLETE BLOOD COUNT 56235 ABS EOS 0.34 10e9/L 012 Unknown COMPLETE BLOOD COUNT 27751 ABS BASO 0.02 10e9/L 012 Unknown COMPLETE BLOOD COUNT 21042 RDW-SD 43.1 fL 2 Unknown LIPID GROUP 32284 HDL TEST 39 MG/DL 09/17/2011 Unknown LIPID GROUP 33935 TRIG 195 MG/DL 09/17/2011 Unknown LIPID GROUP 31546 TEST LDL 98 MG/DL 09/17/2011 Unknown LIPID GROUP 11319 CHOL 176 MG/DL 09/17/2011 Unknown LIPID GROUP 19223 RCHOL/HDL 4.51 RATIO 09/17/2011 Unknow n THYROID STIMULATING HORMONE 66414 TSH 2.892 uIU/ML 08/29/2010 Unknown COMPLETE BLOOD COUNT 01850 WBC 6.5 10e9/L 08/30/19 11 Unknown COMPLETE BLOOD COUNT 96845 RBC 4.83 10e12/L 2010 Unknown COMPLETE BLOOD COUNT 51366 HGB 15.9 g/dL 1 Unknown COMPLETE BLOOD COUNT 14054 HCT DET 44.4 % 1 Unknown COMPLETE BLOOD COUNT 55442 MCV 91.9 fL 1 Unknown COMPLETE BLOOD COUNT 26362 MCH 32.9 pg 1 Unknown COMPLETE BLOOD COUNT 97583 MCHC 35.8 g/dL 1 Unknown COMPLETE BLOOD COUNT 55968 PLT 273 10e9/L 08/30/19 11 Unknown COMPLETE BLOOD COUNT 59496 MPV 10.1 fL 1 Unknown COMPLETE BLOOD COUNT 23442 GARY % 45.3 % 1 Unknown COMPLETE BLOOD COUNT 18190 LY % 39.3 % 1 Unknown COMPLETE BLOOD COUNT 42299 MON % 9.8 % 1 Unknown COMPLETE BLOOD COUNT 05907 EOS % 5.4 % 1 Unknown COMPLETE BLOOD COUNT 72426 BASO % 0.2 % 1 Unknown COMPLETE BLOOD COUNT 82083 RDW 13.2 % 1 Unknown COMPLETE BLOOD COUNT 73956 ABS GARY 2.94 10e9/L 011 Unknown COMPLETE BLOOD COUNT 43136 ABS LYMPH 2.55 10e9/L 011 Unknown COMPLETE BLOOD COUNT 66294 ABS MONO 0.64 10e9/L 011 Unknown COMPLETE BLOOD COUNT 54840 ABS EOS 0.35 10e9/L 011 Unknown COMPLETE BLOOD COUNT 47688 ABS BASO 0.01 10e9/L 011 Unknown COMPLETE BLOOD COUNT 98336 RDW-SD 43.5 fL 1 Unknown FREE T4 51809 FREE T4 1.39 NG/DL 08/29/2010 Unknown LIPID GROUP 59441 HDL TEST 52 MG/DL 08/29/2010 Unknown LIPID GROUP 91833 TRIG 110 MG/DL 08/29/2010 Unknown LIPID GROUP 31132 TEST LDL 109 MG/DL 08/29/2010 Unknown LIPID GROUP 42045 CHOL 183 MG/DL 08/29/2010 Unknown LIPID GROUP 97737 RCHOL/HDL 3.52 RATIO 08/29/2010 Unknow n PSA EQUIMOLAR NITHIN 23055 PSA EQ 1.14 NG/ML 1 Unknown GFR CALC 2025835 GFR AA >60 ML/MIN 08/29/2010 Unknown GFR CALC 1498101 GFR NON-AA >60 ML/MIN 08/29/2010 Unknown COMPREHENSIVE METABOLIC 45803 AST 23 U/L 2010 Unknown COMPREHENSIVE METABOLIC 47461 ALT 19 IU/L 2010 Unknown COMPREHENSIVE METABOLIC 63621 BUN 12 MG/DL 2010 Unknown COMPREHENSIVE METABOLIC 00738 ALBUMIN 4.9 GM/DL 2010 Unknown COMPREHENSIVE METABOLIC 27762 CHLORIDE 95 MMOL/L 2010 Unknown COMPREHENSIVE METABOLIC 73804 BILI TOT 0.4 MG/DL 2010 Unknown COMPREHENSIVE METABOLIC 22180 ALK PHOS 59 U/L 2010 Unknown COMPREHENSIVE METABOLIC 46750 SODIUM 132 MMOL/L 08/29 Unknown COMPREHENSIVE METABOLIC 88462 CREATININE 0.96 MG/DL 08/2010 Unknown COMPREHENSIVE METABOLIC 55090 CALCIUM 10.6 MG/DL 08/29 Unknown COMPREHENSIVE METABOLIC 59949 POTASSIUM 4.0 MMOL/L 08/29 Unknown COMPREHENSIVE METABOLIC 79255 PROT TOT 8.0 GM/DL 2010 Unknown COMPREHENSIVE METABOLIC 18735 Glucose 105 MG/DL 2010 Unknown COMPREHENSIVE METABOLIC 21559 BICARB 22 MMOL/L 2010 Unknown COMPREHENSIVE METABOLIC 20106 ANION GAP 15 MEQ/L 2010 Unknown URIC ACID 58934 URIC ACID 6.7 MG/DL 12/12/2009 Unknown Procedures Procedure Codes Date ROUTINE VENIPUNCTURE CPT-4: 86524 04/18/2020 COMPREHEN METABOLIC PANEL CPT-4: 93237 04/18/2020 LIPID PANEL CPT-4: 61361 04/18/2020 A1C HPLC CPT-4: 75772 04/18/2020 PPPS, subseq visit CPT-4: G0439 10/12/2019 ROUTINE VENIPUNCTURE CPT-4: 36126 01/29/2018 COMPREHEN METABOLIC PANEL CPT-4: 89291 01/29/2018 LIPID PANEL CPT-4: 34301 01/29/2018 A1C HPLC CPT-4: 39673 01/29/2018 HEPATITIS C AB TEST CPT-4: 61451 01/29/2018 ROUTINE VENIPUNCTURE CPT-4: 49013 05/01/2017 ASSAY THYROID STIM HORMONE CPT-4: 89806 05/01/2017 COMPREHEN METABOLIC PANEL CPT-4: 11322 05/01/2017 COMPLETE CBC W/AUTO DIFF WBC CPT-4: 52982 05/01/2017 LIPID PANEL CPT-4: 16494 05/01/2017 A1C HPLC CPT-4: 97802 05/01/2017 ASSAY OF PSA TOTAL CPT-4: 25169 05/01/2017 ROUTINE VENIPUNCTURE CPT-4: 88220 01/04/2016 ASSAY OF FREE THYROXINE CPT-4: 49457 01/04/2016 ASSAY THYROID STIM HORMONE CPT-4: 06776 01/04/2016 COMPREHEN METABOLIC PANEL CPT-4: 21126 01/04/2016 COMPLETE CBC W/AUTO DIFF WBC CPT-4: 32983 01/04/2016 LIPID PANEL CPT-4: 70124 01/04/2016 ASSAY OF PSA TOTAL CPT-4: 10992 01/04/2016 A1C HPLC CPT-4: 61203 01/04/2016 ROUTINE VENIPUNCTURE CPT-4: 54448 02/02/2015 ASSAY OF FREE THYROXINE CPT-4: 70021 02/02/2015 ASSAY THYROID STIM HORMONE CPT-4: 67062 02/02/2015 COMPREHEN METABOLIC PANEL CPT-4: 25123 02/02/2015 COMPLETE CBC W/AUTO DIFF WBC CPT-4: 37161 02/02/2015 LIPID PANEL CPT-4: 65785 02/02/2015 ASSAY OF PSA TOTAL CPT-4: 15137 02/02/2015 A1C HPLC CPT-4: 99720 02/02/2015 THER/PROPH/DIAG INJ SC/IM CPT-4: 63624 07/19/2014 METHYLPREDNISOLONE 40 MG INJ CPT-4: J1030 07/19/2014 TRIAMCINOLONE ACET INJ NOS CPT-4: J3301 07/19/2014 ROUTINE VENIPUNCTURE CPT-4: 06541 06/14/2014 ASSAY OF FREE THYROXINE CPT-4: 82174 06/14/2014 ASSAY THYROID STIM HORMONE CPT-4: 96202 06/14/2014 COMPREHEN METABOLIC PANEL CPT-4: 82739 06/14/2014 COMPLETE CBC W/AUTO DIFF WBC CPT-4: 63628 06/14/2014 A1C HPLC CPT-4: 42381 06/14/2014 VITAMIN B 12 FOLIC ACID CPT-4: 12313|04502 06/14/2014 RBC SED RATE AUTOMATED CPT-4: 69357 06/14/2014 RHEUMATOID FACTOR QUANT CPT-4: 42774 06/14/2014 ANTINUCLEAR ANTIBODIES CPT-4: 16747 06/14/2014 ANTISTREPTOLYSIN O TITER CPT-4: 21546 06/14/2014 ASSAY OF BLOOD/URIC ACID CPT-4: 07648 06/14/2014 C-REACTIVE PROTEIN CPT-4: 05038 06/14/2014 ROUTINE VENIPUNCTURE CPT-4: 75078 03/09/2014 COMPREHEN METABOLIC PANEL CPT-4: 10863 03/09/2014 A1C HPLC CPT-4: 95029 03/09/2014 ROUTINE VENIPUNCTURE CPT-4: 51407 11/18/2013 ASSAY OF FREE THYROXINE CPT-4: 11244 11/18/2013 ASSAY THYROID STIM HORMONE CPT-4: 96627 11/18/2013 COMPREHEN METABOLIC PANEL CPT-4: 02491 11/18/2013 COMPLETE CBC W/AUTO DIFF WBC CPT-4: 20828 11/18/2013 LIPID PANEL CPT-4: 79093 11/18/2013 ASSAY OF PSA TOTAL CPT-4: 74107 11/18/2013 A1C HPLC CPT-4: 57169 11/18/2013 REMOVE FOREIGN BODY CPT-4: 25537 11/09/2013 OCCULT BLOOD FECES CPT-4: 12789 11/09/2013 THER/PROPH/DIAG INJ SC/IM CPT-4: 54130 11/24/2012 VITAMIN B12 INJECTION CPT-4: J3420 11/24/2012 COMPREHEN METABOLIC PANEL CPT-4: 83724 11/03/2012 COMPLETE CBC W/AUTO DIFF WBC CPT-4: 82160 11/03/2012 ASSAY THYROID STIM HORMONE CPT-4: 21903 11/03/2012 ASSAY OF BLOOD/URIC ACID CPT-4: 67601 11/03/2012 ROUTINE VENIPUNCTURE CPT-4: 91698 11/03/2012 ROUTINE VENIPUNCTURE CPT-4: 07748 02/25/2012 COMPREHEN METABOLIC PANEL CPT-4: 80670 02/25/2012 COMPLETE CBC W/AUTO DIFF WBC CPT-4: 71255 02/25/2012 HERPE1/2MG CPT-4: 43659|14347|13541 02/25/2012 THER/PROPH/DIAG INJ SC/IM CPT-4: 78186 09/24/2011 VITAMIN B12 INJECTION CPT-4: J3420 09/24/2011 CEFTRIAXONE SODIUM INJECTION CPT-4: J0696 09/24/2011 THER/PROPH/DIAG INJ SC/IM CPT-4: 09295 09/24/2011 ROUTINE VENIPUNCTURE CPT-4: 12205 09/17/2011 COMPREHEN METABOLIC PANEL CPT-4: 78624 09/17/2011 COMPLETE CBC W/AUTO DIFF WBC CPT-4: 12358 09/17/2011 LIPID PANEL CPT-4: 76028 09/17/2011 VITAMIN B 12 FOLIC ACID CPT-4: 28468|04493 09/17/2011 A1C GLYCOSYLATED HEMOGLOBIN TEST CPT-4: 11044 012 ROUTINE VENIPUNCTURE CPT-4: 16984 08/29/2010 COMPLETE CBC W/AUTO DIFF WBC CPT-4: 87476 08/29/2010 COMPREHEN METABOLIC PANEL CPT-4: 46378 08/29/2010 LIPID PANEL CPT-4: 25266 08/29/2010 ASSAY THYROID STIM HORMONE CPT-4: 24344 08/29/2010 ASSAY OF FREE THYROXINE CPT-4: 51482 08/29/2010 ASSAY OF PSA TOTAL CPT-4: 64731 08/29/2010 THER/PROPH/DIAG INJ SC/IM CPT-4: 68097 12/12/2009 VITAMIN B12 INJECTION CPT-4: J3420 12/12/2009 ROUTINE VENIPUNCTURE CPT-4: 27337 12/12/2009 ASSAY OF BLOOD/URIC ACID CPT-4: 84201 12/12/2009 THER/PROPH/DIAG INJ SC/IM CPT-4: 01778 10/30/2009 VITAMIN B12 INJECTION CPT-4: J3420 10/30/2009 THER/PROPH/DIAG INJ SC/IM CPT-4: 47239 10/01/2009 VITAMIN B12 INJECTION CPT-4: J3420 10/01/2009 THER/PROPH/DIAG INJ SC/IM CPT-4: 29030 10/01/2009 CEFTRIAXONE SODIUM INJECTION CPT-4: J0696 10/01/2009 Vital Signs Date Vital 10/19/2020 Blood Pressure 1: 121/87 Code: 8480-6 Heart Rate 1: 100 bpm Respiratory Rate: 16 bpm SpO2: 96% Temperature: 36.3 (C) / 97.3 (F) We ight: 149 lbs Code: 50262-3 10/01/2020 Blood Pressure 1: 140/84 Code: 8480-6 Heart Rate 1: 100 bpm Respiratory Rate: 18 bpm SpO2: 96% Temperature: 36.6 (C) / 97.9 (F) We ight: 147 lbs Code: 62697-5 09/24/2020 Blood Pressure 1: 112/70 Code: 8480-6 [...] 98.1 (F) We ight: 152 lbs Code: 41143-8 09/12/2020 Blood Pressure 1: 133/70 Code: 8480-6 Heart Rate 1: 100 bpm Respiratory Rate: 16 bpm SpO2: 100% Temperature: 36.5 (C) / 97.7 (F) We ight: 152 lbs Code: 32674-7 04/18/2020 Blood Pressure 1: 144/78 Code: 8480-6 Heart Rate 1: 80 bpm Respiratory Rate: 16 bpm SpO2: 98% Temperature: 36.4 (C) / 97.5 (F) We ight: 160 lbs Code: 58261-5 10/12/2019 Blood Pressure 1: 124/78 Code: 8480-6 BMI: 24.8 Code: 04301-7 Heart Rate 1: 76 bpm Height: 5'8" Code: 8302-2 Respiratory Rate: 20 bpm SpO2: 98% Temperature: 36.6 (C) / 97.9 (F) Weight: 163 lbs Code: 39475-3 04/25/2019 Blood Pressure 1: 140/86 Code: 8480-6 BMI: 24.3 Code: 03824-1 Heart Rate 1: 92 bpm Height: 5'8" Code: 8302-2 Respiratory Rate: 20 bpm SpO2: 98% Temperature: 36.8 (C) / 98.3 (F) Weight: 160 lbs Code: 81623-0 04/12/2019 Blood Pressure 1: 146/86 Code: 8480-6 BMI: 25.4 Code: 71782-3 Heart Rate 1: 88 bpm Height: 5'8" Code: 8302-2 Respiratory Rate: 20 bpm SpO2: 98% Temperature: 36.5 (C) / 97.7 (F) Weight: 167 lbs Code: 43233-2 02/17/2018 Blood Pressure 1: 114/62 Code: 8480-6 Bl ood Pressure 2: 116/70 Code: 8480-6 BMI: 24.9 Code: 59960-5 Heart Rate 1: 76 bpm Height: 5'8" Code: 8302-2 Respiratory Rate: 20 bpm SpO2: 97% Temperature: 36.7 (C) / 98.0 (F) We ight: 164 lbs Code: 55559-8 04/07/2017 Blood Pressure 1: 122/84 Code: 8480-6 BMI: 24.3 Code: 21734-4 Heart Rate 1: 72 bpm Height: 5'8" Code: 8302-2 Respiratory Rate: 20 bpm SpO2: 96% Temperature: 36.9 (C) / 98.4 (F) Weight: 160 lbs Code: 98457-4 09/19/2016 Blood Pressure 1: 124/76 Code: 8480-6 BMI: 24.6 Code: 86810-8 Heart Rate 1: 68 bpm Height: 5'8" Code: 8302-2 Respiratory Rate: 20 bpm SpO2: 96% Temperature: 36.6 (C) / 97.9 (F) Weight: 162 lbs Code: 20384-1 12/18/2015 Blood Pressure 1: 136/70 Code: 8480-6 BMI: 24.3 Code: 04838-1 Heart Rate 1: 84 bpm Height: 5'8" Code: 8302-2 Respiratory Rate: 20 bpm Temperatu re: 36.5 (C) / 97.7 (F) Weight: 160 lbs Code: 07884-7 07/20/2015 Blood Pressure 1: 140/84 Code: 8480-6 BMI: 24.9 Code: 63458-2 Heart Rate 1: 76 bpm Height: 5'8" Code: 8302-2 Respiratory Rate: 20 bpm Temperatu re: 36.6 (C) / 97.9 (F) Weight: 164 lbs Code: 89841-3 02/07/2015 Blood Pressure 1: 164/82 Code: 8480-6 BMI: 25.5 Code: 25847-3 Heart Rate 1: 78 bpm Height: 5'8" Code: 8302-2 Respiratory Rate: 20 bpm Temperatu re: 36.5 (C) / 97.7 (F) Weight: 168 lbs Code: 64735-1 07/19/2014 Blood Pressure 1: 136/94 Code: 8480-6 BMI: 24.8 Code: 73103-0 Heart Rate 1: 88 bpm Height: 5'8" Code: 8302-2 Respiratory Rate: 20 bpm Temperatu re: 36.8 (C) / 98.2 (F) Weight: 163 lbs Code: 96565-4 07/06/2014 Blood Pressure 1: 136/92 Code: 8480-6 BMI: 24.2 Code: 39574-5 Heart Rate 1: 88 bpm Height: 5'8" Code: 8302-2 Respiratory Rate: 20 bpm Temperatu re: 36.9 (C) / 98.4 (F) Weight: 159 lbs Code: 60607-8 07/04/2014 Blood Pressure 1: 116/84 Code: 8480-6 Bl ood Pressure 2: 108/82 Code: 8480-6 Heart Rate 1: 88 bpm Respiratory Rate: 20 bpm Temperature: 3 6.7 (C) / 98.0 (F) Weight: 159 lbs Code: 69490-7 06/14/2014 Blood Pressure 1: 132/90 Code: 8480-6 BMI: 24.6 Code: 07293-8 Heart Rate 1: 100 bpm Height: 5'8" Code: 8302-2 Respiratory Rate: 20 bpm Temperatu re: 37.2 (C) / 99.0 (F) Weight: 162 lbs Code: 93915-9 03/09/2014 Blood Pressure 1: 122/62 Code: 8480-6 BMI: 25.4 Code: 99019-9 Heart Rate 1: 84 bpm Height: 5'8" Code: 8302-2 Respiratory Rate: 20 bpm Temperatu re: 36.6 (C) / 97.8 (F) Weight: 167 lbs Code: 69303-5 01/05/2014 Blood Pressure 1: 124/82 Code: 8480-6 BMI: 25.4 Code: 53598-9 Heart Rate 1: 84 bpm Height: 5'8" Code: 8302-2 Respiratory Rate: 20 bpm Temperatu re: 36.7 (C) / 98.0 (F) Weight: 167 lbs Code: 76719-6 11/09/2013 Blood Pressure 1: 138/82 Code: 8480-6 BMI: 24.5 Code: 94534-2 Heart Rate 1: 84 bpm Height: 5'8" Code: 8302-2 Respiratory Rate: 20 bpm Temperatu re: 37.1 (C) / 98.8 (F) Weight: 161 lbs Code: 64283-7 11/24/2012 Blood Pressure 1: 122/72 Code: 8480-6 BMI: 24.0 Code: 38581-8 Heart Rate 1: 66 bpm Height: 5'8" Code: 8302-2 Respiratory Rate: 20 bpm Temperatu re: 36.5 (C) / 97.7 (F) Weight: 158 lbs Code: 59792-4 11/03/2012 Blood Pressure 1: 130/84 Code: 8480-6 BMI: 23.7 Code: 53662-0 Heart Rate 1: 72 bpm Height: 5'8" Code: 8302-2 Respiratory Rate: 20 bpm Temperatu re: 36.2 (C) / 97.1 (F) Weight: 156 lbs Code: 81154-0 02/25/2012 Blood Pressure 1: 142/84 Code: 8480-6 BMI: 25.1 Code: 78033-1 Heart Rate 1: 68 bpm Height: 5'8" Code: 8302-2 Temperature: 37.2 (C) / 99.0 (F) Weight: 165 lbs Code: 89228-5 10/08/2011 Blood Pressure 1: 126/80 Code: 8480-6 BMI: 24.3 Code: 51345-9 Heart Rate 1: 84 bpm Height: 5'8" Code: 8302-2 Respiratory Rate: 20 bpm Temperatu re: 36.8 (C) / 98.2 (F) Weight: 160 lbs Code: 79487-7 09/24/2011 Blood Pressure 1: 136/80 Code: 8480-6 BMI: 24.3 Code: 70999-5 Heart Rate 1: 84 bpm Height: 5'8" Code: 8302-2 Respiratory Rate: 20 bpm Temperatu re: 36.8 (C) / 98.2 (F) Weight: 160 lbs Code: 66427-3 09/17/2011 Blood Pressure 1: 128/84 Cod e: 8480-6 09/09/2011 Blood Pressure 1: 142/84 Code: 8480-6 BMI: 24.3 Code: 21656-2 Height: 5'8" Code: 8302-2 Temperature: 36.7 (C) / 98.0 (F) Weight: 160 lbs Code : 21077-2 08/29/2010 Blood Pressure 1: 144/84 Code: 8480-6 Heart Rate 1: 72 bpm Temperature: 36.8 (C) / 98.2 (F) Weight: 156 lbs Code: 20428-8 12/12/2009 Blood Pressure 1: 146/88 Code: 8480-6 Heart Rate 1: 76 bpm Temperature: 36.6 (C) / 97.9 (F) Weight: 152 lbs Code: 38181-3 10/30/2009 Blood Pressure 1: 132/70 Code: 8480-6 Heart Rate 1: 80 bpm Temperature: 36.9 (C) / 98.4 (F) Weight: 151 lbs Code: 77839-9 10/01/2009 Blood Pressure 1: 142/86 Code: 8480-6 BMI: 23.0 Code: 33150-7 Heart Rate 1: 84 bpm Height: 5'8" Code: 8302-2 Temperature: 36.9 (C) / 98.4 (F) Weight: 151 lbs Code: 64177-6 Functional Status No Functional Status data Reason For Visit Reason For Visit Effective Dates Notes neck swelling 10/19/2020 follow up 10/01/2020 follow up 09/24/2020 follow up 09/17/2020 follow up 09/14/2020 dvt right leg bone pain 09/12/2020 follow up 04/18/2020 well man exam (65+ years) 10/12/2019 Annual [facility]---no recent labs and patient not fasting today follow up 04/25/2019 follow up 04/12/2019 from [facility] well man exam (40-65 years) [...] 10/01/2009 establishing vis it, being treated for [place] Spotted Fever Encounters Encounter Performer Location Codes Date ([id number]) OFFICE/OUTPATIENT VISIT EST Diagnosis: Supraclavicular adenopathy[ICD10: R59.0] Diagnosis: Difficulty swallowing[ICD10: R13.10] Estephanie KEYES [employer] CPT-4: 62818 10/19/2020 ([id number]) OFFICE/OUTPATIENT VISIT EST Diagnosis: On anticoagulant therapy[ICD10: Z79.01] Diagnosis: Acute deep vein thrombosis (DVT) of femoral vein of right lower extremity[ICD10: I82.411] Estephanie KEYES [employer] [facility] CPT-4 : 16732 10/01/2020 ([id number]) OFFICE/OUTPATIENT VISIT EST Diagnosis: Right leg DVT[ICD10: I82.401] Tracie KEYES [employer] [facility] CPT-4: 62172 09/24/2020 ([id number]) OFFICE/OUTPATIENT VISIT EST Diagnosis: Acute deep vein thrombosis (DVT) of femoral vein of right lower extremity[ICD10: I82.411] Diagnosis: On anticoagulant therapy[ICD10: Z79.01] Estephanie KEYES [employer] CPT-4: 19225 09/17/2020 ([id number]) OFFICE/OUTPATIENT VISIT EST Diagnosis: Acute deep vein thrombosis (DVT) of femoral vein of right lower extremity[ICD10: I82.411] Estephanie KEYES DO [facility] CPT-4 : 64424 09/14/2020 ([id number]) OFFICE/OUTPATIENT VISIT EST Diagnosis: Fall down stairs, initial encounter[ICD10: W10.8XXA] Diagnosis: Right leg swelling[ICD10: M79.89] Diagnosis: Right leg pain[ICD10: M79.604] Estephanie KEYES DO [facility] CPT-4: 56292 09/12/2020 ([id number]) OFFICE/OUTPATIENT VISIT EST Diagnosis: Hypertension[ICD10: I10] Diagnosis: Hyperglycemia, unspecified[ICD10: R73.9] Diagnosis: Mixed hyperlipidemia[ICD10: E78.2] Tracie MOHAN [employer]ark MICAH [employer] [facility] CPT-4: 57205 04/18/2020 ([id number]) OFFICE/OUTPATIENT VISIT EST 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] Diagnosis: Cat scratch[ICD10: W55.03XA] Diagnosis: Hypertension[ICD10: I10] Diagnosis: Pulmonary nodules[ICD10: R91.8] Tracie Nikhilrhiannanorman DURANTRACIE [employer] THIAGO [employer] [facility] CPT-4: 49161 04/25/2019 ([id number]) OFFICE/OUTPATIENT VISIT EST 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] Diagnosis: Dysphagia[ICD10: R13.10] Tracie GALARZA [employer] [facility] CPT-4: 89787 04/12/2019 ([id number]) PER PM REEVAL EST PAT 65+ YR Diagnosis: Encounter for general adult medical examination without abnormal findings[ICD10: Z00.00] Diagnosis: Essential (primary) hypertension[ICD10: I10] Diagnosis: Hyperglycemia, unspecified[ICD10: R73.9] Tracie GALARZA ElvinClark THIAGO [employer] [facility] CPT-4: 00796 02/17/2018 ([id number]) NURSE/OUTPATIENT VISIT EST Diagnosis: Essential (primary) hypertension[ICD10: I10] Diagnosis: Mixed hyperlipidemia[ICD10: E78.2] Diagnosis: Hyperglycemia, unspecified[ICD10: R73.9] Diagnosis: Encounter for screening for other viral diseases[ICD10: Z11.59] Tracie GALARZA ElvinClark [facility]IAGO [facility] CPT-4: 19972 01/29/2018 ([id number]) OFFICE/OUTPATIENT VISIT EST Diagnosis: Encounter for general adult medical examination without abnormal findings[ICD10: Z00.00] Diagnosis: Mixed hyperlipidemia[ICD10: E78.2] Diagnosis: Essential (primary) hypertension[ICD10: I10] Diagnosis: Impaired fasting glucose[ICD10: R73.01] Diagnosis: Encounter for screening for malignant neoplasm of prostate[ICD10: Z12.5] Tracie GALARZA [employer]ark NIKHILRHIANNANORMAN [employer] [facility] CPT-4: 86101 05/01/2017 ([id number]) OFFICE/OUTPATIENT VISIT EST Diagnosis: URI, ACUTE[ICD10: J06.9] Tracie GALARZA [employer] [facility] CPT-4: 08962 04/07/2017 OFFICE/OUTPATIENT VISIT EST Diagnosis: Essential (primary) hypertension[ICD10: I10] Ashley GALARZA Elvin[employer]ark THIAGO [employer] [facility] CPT-4: 77818 09/19/2016 ([id number]) OFFICE/OUTPATIENT VISIT EST Diagnosis: Encounter for general adult medical examination without abnormal findings[ICD10: Z00.00] Diagnosis: Essential (primary) hypertension[ICD10: I10] Diagnosis: Impaired fasting glucose[ICD10: R73.01] Tracie CHAVEZ [employer]ark NIKHILRHIANNANORMAN [employer] [facility] CPT-4: 80125 01/04/2016 ([id number]) OFFICE/OUTPATIENT VISIT EST Diagnosis: Essential (primary) hypertension[ICD10: I10] Diagnosis: Mixed hyperlipidemia[ICD10: E78.2] Diagnosis: Impaired fasting glucose[ICD10: R73.01] Tracie CHAVEZ [employer]vin[employer]ark THIAGO [employer] [facility] CPT-4: 08147 12/18/2015 ([id number]) PREV VISIT EST AGE 40-64 Diagnosis: Encounter for general adult medical examination without abnormal findings[ICD10: Z00.00] Diagnosis: Essential (primary) hypertension[ICD10: I10] Ashley QuinnJaquelinRalph DURANLINE Lee [facility] CPT-4: 25627 07/20/2015 OFFICE/OUTPATIENT VISIT EST Diagnosis: Mixed hyperlipidemia[ICD10: E78.2] Diagnosis: Impaired fasting glucose[ICD10: R73.01] Diagnosis: Insomnia, unspecified[ICD10: G47.00] Jacque MongeSharonjorge luis [facility] CPT-4: 15101 02/07/2015 ([id number]) OFFICE/OUTPATIENT VISIT EST Diagnosis: Encounter for general adult medical examination without abnormal findings[ICD10: Z00.00] Diagnosis: Essential (primary) hypertension[ICD10: I10] Diagnosis: Mixed hyperlipidemia[ICD10: E78.2] Tracie MOHAN Lee [facility] CPT-4: 83273 02/02/2015 ([id number]) OFFICE/OUTPATIENT VISIT EST Diagnosis: SINUSITIS, ACUTE[ICD9: 461.9] Jacque MongeGil TRACIE Lee [facility] CPT-4: 61133 07/19/2014 ([id number]) OFFICE/OUTPATIENT VISIT EST Diagnosis: Hypotension[ICD9: 458.9] Diagnosis: DYSPEPSIA[ICD9: 536.8] Diagnosis: HYPERTENSION[ICD9: 401.9] Tracie GALARZA Lee [facility] CPT-4: 00638 07/06/2014 ([id number]) OFFICE/OUTPATIENT VISIT EST Diagnosis: DIZZINESS/VERTIGO[ICD9: 780.4] Diagnosis: HYPOTENSION[ICD9: 458.9] Diagnosis: MALAISE AND FATIGUE[ICD9: 780.79] Tracie Murillo Lee [facility] CPT-4: 03569 07/04/2014 ([id number]) OFFICE/OUTPATIENT VISIT EST Diagnosis: ARTHRALGIA-MULTIPLE SITES[ICD9: 719.49] Diagnosis: CEPHALGIA[ICD9: 784.0] Diagnosis: Uveitis[ICD9: 364.3] Tracie AGLARZA ElvinClark [facility] C[facility]: 89524 06/14/2014 ([id number]) OFFICE/OUTPATIENT VISIT EST Diagnosis: HYPERTENSION[ICD9: 401.9] Diagnosis: OTHER ABNORMAL GLUCOSE[ICD9: 790.29] Tracie KEYES DO [facility] CPT-4: 22487 03/09/2014 ([id number]) OFFICE/OUTPATIENT VISIT EST Diagnosis: OTHER ABNORMAL GLUCOSE[ICD9: 790.29] Tracie KEYES DO [facility] CPT-4: 10635 01/05/2014 ([id number]) OFFICE/OUTPATIENT VISIT EST Diagnosis: ROUTINE MEDICAL EXAM[ICD9: V70.0] Tracie KEYES DO [facility] CPT-4: 81177 11/18/2013 ([id number]) PREV VISIT EST AGE 40-64 Diagnosis: ROUTINE MEDICAL EXAM[ICD9: V70.0] Diagnosis: HYPERLIPIDEMIA NEC/NOS[ICD9: 272.4] Diagnosis: FOREIGN BODY FINGER[ICD9: 915.6] Tracie KEYES DO [facility] CPT-4: 33385 11/09/2013 ([id number]) OFFICE/OUTPATIENT VISIT EST Diagnosis: CERVICALGIA[ICD9: 723.1] Diagnosis: B12 DEFIC ANEMIA NEC[ICD9: 281.1] Diagnosis: DISTURBANCE OF SKIN SENSATION (Paresthesia)[ICD9: 782.0] Tracie KEYES DO [facility] CPT-4: 29790 11/24/2012 OFFICE/OUTPATIENT VISIT EST Diagnosis: Neck pain on left side[ICD9: 723.1] Diagnosis: Tendonitis of elbow, left[ICD9: 727.09] Jacque Lopez TRACIE KEYES DO [facility] CPT-4: 02499 11/03/2012 OFFICE/OUTPATIENT VISIT EST Diagnosis: Oral lesion[ICD9: 528.9] Diagnosis: Herpes zoster[ICD9: 053.9] Diagnosis: FEBRILE ILLNESS[ICD9: 780.60] Liz Randall TRACIE KEYES DO [facility] CPT-4: 26712 02/25/2012 OFFICE/OUTPATIENT VISIT EST Diagnosis: MALAISE AND FATIGUE[ICD9: 780.79] Diagnosis: B12 DEFIC ANEMIA NEC[ICD9: 281.1] Diagnosis: SPOTTED FEVERS[ICD9: 082.0] Diagnosis: SPASM OF MUSCLE[ICD9: 728.85] Tracie CALVONDNORMAN DO [facility] CPT-4: 89948 10/08/2011 ([id number]) OFFICE/OUTPATIENT VISIT EST Diagnosis: MALAISE AND FATIGUE[ICD9: 780.79] Diagnosis: SPOTTED FEVERS[ICD9: 082.0] Diagnosis: B12 DEFIC ANEMIA NEC[ICD9: 281.1] Tracie CALVONDNORMAN [facility] CPT-4: 74292 09/24/2011 ([id number]) OFFICE/OUTPATIENT VISIT EST Diagnosis: B12 DEFIC ANEMIA NEC[ICD9: 281.1] Diagnosis: HYPERTENSION[ICD9: 401.9] Diagnosis: MALAISE AND FATIGUE[ICD9: 780.79] Diagnosis: OTHER ABNORMAL GLUCOSE[ICD9: 790.29] Tracie KEYES DO [employer] CPT-4: 06960 09/17/2011 OFFICE/OUTPATIENT VISIT EST Diagnosis: NONVENOM ARTHROPOD BITE[ICD9: 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.4] Diagnosis: HYPERTENSION[ICD9: 401.9] Tracie CALVO NDER DO [employer] CPT-4: 17595 09/09/2011 PREV VISIT EST AGE 40-64 Tracie OBRIENE R DO [facility] CPT-4: 33533 08/29/2010 ([id number]) OFFICE/OUTPATIENT VISIT, EST Tracie CHAVEZ SClark ORENDER DO [facility] CPT-4: 03236 12/12/2009 ([id number]) OFFICE/OUTPATIENT VISIT, EST Tracie CHAVEZ SClark ORENDER DO [facility] CPT-4: 85476 10/30/2009 ([id number]) OFFICE/OUTPATIENT VISIT, NEW Tracie CHAVEZ SClark OBRIENER DO [facility] CPT-4: 00513 10/01/2009 Plan of Care Planned Activity Notes Codes Status Date Visit Diagnosis Plan: Supraclavicular adenopathy Discu ssion: Will send for stat CT neck chest with contrast and labs at [facility] ICD-9 : 785.6 ICD-10 : R59.0 10/19/2020 Appointment: Estephanie Zaidi WPtel: [phone] [facility] [place] ACUTE ILLNESS 10/19/2020 Patient Education: Patient [...] I82.411 10/01/2020 Appointment: Estephanie Zaidi WPtel: [phone] [facility] US FOLLOW UP 10/01/2020 Patient Education: Patient Medication Summary Completed 10/01/2020 Visit Diagnosis Plan: Right leg DVT Discussion: Contin ue eliquis at 5mg po BID Recheck 1 week Discussed repeating US of RLE at 3mos and staying on eliquis until then Discussed clotting studies after off eliquis for 1month in future ICD-9 : 453.40 ICD-10 : I82.401 09/24/2020 Appointment: Tracie Keyes WPtel: [address] [place], [place] [phone] [place] FOLLOW UP 09/24/2020 Visit Diagnosis Plan: [...] extremity Discussion: Swelling decreasing. F/U 1 w kaltag for recheck. ICD-9 : 453.41 ICD-10 : I82.411 09/17/2020 Appointment: Estephanie Zaidi WPtel: [phone] [facility] US FOLLOW UP 09/17/2020 Patient Education: Patient Medication Summary Completed 09/17/2020 Patient Education: Eliquis- [employer] Coupon [id number] https://www.BERD.Cellectar/sampleGroupsite/resources/getResource/61/o55sypik-9mlc-891q-55 Completed 09/17/2020 Patient Education: tramadol- [employer] Coupon [id number] https://www.WeedWall/BERD/resources/getResource/61/bgo71598-yx59-5x59-52 Completed 09/17/2020 Visit Diagnosis Plan: Acute deep [...] 09/14/2020 Appointment: [facility]idi [facility]el[facility] [phone] [facility] [facility] 09/14/2020 Patient Education: Patient Medication Summary Completed 09/14/2020 Visit Diagnosis Plan: Right leg swelling Discussion: W ill send to [facility] for stat doppler to r/o DVT d/t swelling and pain and f/u with results. ICD-9 : 729.81 ICD-10 : M79.89 09/12/2020 Appointment: [facility]phan[facility]idi [facility]Ptel[facility] [phone] [facility] [facility] 09/12/2020 Patient Education: Patient Medication [...] 790.29 ICD-10 : R73.9 04/18/2020 Appointment: Tracie Keyestel: [phone] [place] [address] [place] FOLLOW UP 04/18/2020 Patient Education: lisinopril- [employer] Coupon [id number] https://www.BERD.Cellectar/samplemd/resources/getResource/61/089136sj-pbjm-72h4-51 Completed 04/18/2020 Visit Diagnosis Plan: Essential (primary) hypertension Discussion: Stable on lisinopril ICD-9 : 401.9 ICD-10 : I10 10/12/2019 Visit Diagnosis Plan: Encounter for [facility] adult medical examination without abnormal findings Discussion: Mediterranean diet Combinati on of cardio and weight bearing exercise Will return for fasting lab next week ICD-9 : V70.0 ICD-10 : Z00.00 10/12/2019 Visit Diagnosis Plan: Hyperglycemia, unspecified Discu ssion: Will return for HbA1C next week ICD-9 : 790.29 ICD-10 : R73.9 10/12/2019 Appointment: Tracie Keyestel: [phone] INSIDE Annual Well Visit 10/12/2019 Appointment: Viridiana Lima [address] FOLLOW UP 05/16/2019 Visit Diagnosis Plan: [...] : W55.03XA 04/25/2019 Appointment: Tracie Keyes WPtel: [address] [place], [place] [id number] Hospital Follow Up 04/25/2019 Patient Education: nystatin- [employer] Coupon [id number] https://www.WeedWall/samplemd/resources/getResource/61/99826qg8-6046-89x9-2h Completed 04/25/2019 Visit Diagnosis Plan: Submandibular gland [...] : K11.1 04/12/2019 Appointment: Tracie Keyes WPtel: [address] [place], [place] [phone] 04/12/2019 Appointment: Tracie Keyes WPtel: [address] [place] [address] LM CANCELED 08/09/2018 Visit Diagnosis Plan: Essential (primary) hypertension Discussion: Stable ICD-9 : 401.9 ICD-10 : I10 02/17/2018 Visit Diagnosis Plan: Encounter for gene [facility] adult medical examination without abnormal findings Discussion: Lab discussed Refuses prosta te check Refuses colonoscopy Will check with pharmacy on Shingrix/Flu shot and Prevnar ICD-9 : V70.0 ICD-10 : Z00.00 02/17/2018 Visit Diagnosis Plan: Hyperglycemia, unspecified Discu ssion: Wants to focus on diet/exercise and recheck in 6mos ICD-9 : 790.29 ICD-10 : R73.9 02/17/2018 Appointment: Tracie Keyes WPtel: [address] [place], [place] [address] Annual Well Visit 02/17/2018 Appointment: Tracie Keyes WPtel: [address] [place], [place] [phone] US LAB 01/29/2018 Appointment: Tracie Keyes WPtel: [address] [place], [place] [phone] US LAB 05/01/2017 Patient Education: Patient Medication [...] Rest, Fluids... 04/07/2017 Appointment: Tracie Keyes WPtel: [address] [place] [address] ACUTE ILLNESS 04/07/2017 Patient Education: Patient Medication Summary Completed 04/07/2017 Visit Plan: Had meds refilled for 6 joseph hs the other day. RTC 6 months Described s/s of heart disease that he would need to report for to us or ER/UC. 09/19/2016 Appointment: Ashley Crenshaw WPtel: [address] [place], [place] [phone] [place] 09/18 lm`sl FOLLOW UP 09/19/2016 Patient Education: Patient Medication Summary Completed 09/19/2016 Appointment: Tracie Keyes WPtel: [address] [place], [place] [phone] US LAB 01/04/2016 Patient Education: Patient Medication Summary Completed 01/04/2016 Visit Plan: Will get flu shot at work Up date fasting lab 12/18/2015 Appointment: Tracie Keyes WPtel: [address] [place], [place] [phone] 12/16 lm~sl FOLLOW UP 12/18/2015 Patient Education: Patient Medication Summary Completed 12/18/2015 Visit Plan: Pt declined rectal/prostate exam. Encouraged to get colonoscopy Plan labs for fall 2015 Continue on current meds but send in home B/P since today's B/P is elevated to see if dosage change is indicated. RTC in 6 months 07/20/2015 Appointment: Ashley Crenshaw WPtel: [address] [place], [place] [phone] 07/18 lm ~sl Annual Well Visit 07/20/2015 Patient Education: Patient Medication Summary Completed 07/20/2015 Visit Plan: Resume BP med Resume Metform in( has been off > 9 months) Add HgbA1C to labs drawn last week, Trial of Selinor for sleep. Will let us know how he does with it. 02/07/2015 Appointment: Jacque Lopez WPtel: [address] [place], [place] [phone] 02/06/15 cn....appt confirmed cn FOLLOW UP 02/07/2015 Patient Education: Patient Medication Summary Completed 02/07/2015 Patient Education: [facility] - Saving AutoInj - Lisinopril - 18-64 - Dynamic Portal ID Completed 02/07/2015 Appointment: Tracie Keyes WPtel: [address] [place], [place] [id number] LAB 02/02/2015 Patient Education: Patient Medication Summary Completed 02/02/2015 Appointment: Jacque Lopez WPtel: [address] [place], [place] [phone] ACUTE ILLNESS 07/19/2014 Patient Education: Patient Medication Summary Completed 07/19/2014 Visit Plan: Restart Diltiazem Continue t o hydrate Call in 3 days on how doing 07/06/2014 Appointment: Tracie Keyes WPtel: [address] [place], [place] [phone] 07/05 appt confirmed cn FOLLOW UP 07/07/19 Patient Education: Patient Medication Summary Completed 07/06/2014 Visit Plan: Hold lisinopril hct Hydrate Recheck 2 days Meclizine 25mg q HS Hold metformin Call in AM 07/04/2014 Appointment: Tracie Keyestel: [address] [place], [place] [phone] FOLLOW UP 07/04/2014 Patient Education: Patient Medication Summary Completed 07/04/2014 Appointment: Tracie Keyes WPtel: [address] [place], [place] [phone] ACUTE ILLNESS 06/14/2014 Patient Education: Patient Medication Summary Completed 06/14/2014 Appointment: Tracie Keyestel: [address] [place] [phone] FOLLOW UP 03/09/2014 Patient Education: Patient Medication Summary Completed 03/09/2014 Visit Plan: Continue metformin at curren t dose Accuchecks daily alternating times Diabetic diet info given Check CMP with HbA1C in 2mos then fwup 01/05/2014 Appointment: Tracie Keyes WPtel: [address] [place], [place] [phone] FOLLOW UP 01/05/2014 Patient Education: Patient Medication Summary Completed 01/05/2014 Visit Plan: Did not need lab so will jus t fwup as scheduled 01/03/2014 Appointment: Tracie Keyes WPtel: [address] [place], [place] [phone] 01/03/2014 Patient Education: Patient Medication Summary Completed 01/03/2014 Appointment: Tracie Keyes WPtel: [address] [place], [place] [phone] LAB 11/18/2013 Patient Education: Patient Medication Summary Completed 11/18/2013 Visit Plan: Continue current meds Remova l of splinter as above Keflex for 1 week Continue current meds Fwup next week for fasting lab including PSA 11/09/2013 Appointment: Tracie Keyestel: [address] [place], [place] [phone] 11/08 Annual Well Visit 11/09/2013 Patient Education: Patient Medication Summary Completed 11/09/2013 Patient Education: [facility] - Saving AutoInj - Lisinopril - 18+ - Dynamic Portal ID Completed 11/09/2013 Appointment: Tracie Keyes WPtel: [address] [place], [place] [id number] 11/23 left [facility] FOLLOW UP 11/24/2012 Patient Education: Patient Medication Summary Completed 11/24/2012 Appointment: Jacque Lopez WPtel: [address] [place], [place] [id number] FOLLOW UP 11/10/2012 Appointment: Jacque Lopez WPtel: [address] [place], [place] [phone] ACUTE ILLNESS 11/03/2012 Patient Education: Patient Medication Summary Completed 11/03/2012 Appointment: Liz Randall WPtel: [address] [place], [place] [phone] ACUTE ILLNESS 02/25/2012 Patient Education: Patient Medication Summary Completed 02/25/2012 Visit Plan: Finish abx Continue B12 OMT done Add Skelaxin 800mg q HS 10/08/2011 Appointment: Tracie Keyes WPtel: [address] [place], [place] [phone] voicemail FOLLOW UP 10/08/2011 Patient Education: Patient Medication Summary Completed 10/08/2011 Appointment: Tracie Keyes WPtel: [address] [place], [place] [phone] FOLLOW UP 09/24/2011 Patient Education: Patient Medication Summary Completed 09/24/2011 Appointment: Tracie Keyes WPtel: [address] [place], [place] [phone] [place] LAB 09/17/2011 Patient Education: Patient Medication [...] fasting labs. 09/09/2011 Appointment: Liz Randall WPtel: [address] [place] [address] ACUTE ILLNESS 09/09/2011 Patient Education: Patient Medication Summary Completed 09/09/2011 Visit Plan: Change lisinopril hct to 20/ 12.5mg 2 daily and continue cardizem Check fasting lab--drawn today 08/29/2010 Appointment: Tracie Keyes WPtel: [address] [place] [address] FOLLOW UP 08/29/2010 Patient Education: Patient Medication Summary Completed 08/29/2010 Appointment: Tracie Keyes WPtel: [address] [place] [address] FOLLOW UP 12/12/2009 Patient Education: Patient Medication Summary Completed 12/12/2009 Appointment: Tracie Keyes WPtel: [address] [place] [address] FOLLOW UP 11/27/2009 Visit Plan: Finish Abx B12 given Start d aily 1000mcg B12 Cont allopurinol and check B12 and uric acid in 1mo. 10/30/2009 Appointment: Tracie Keyes WPtel: [address] [place] [address] FOLLOW UP 10/30/2009 Patient Education: Patient Medication Summary Completed 10/30/2009 Appointment: Tracie Keyes WPtel: [address] [place] [address] [place] NEW PATIENT 10/01/2009 Patient Education: Patient Medication Summary Completed 10/01/2009 Referral: Sav Olivo WPtel: [facility] Referral Initiated Instructions Comment . Supportive care. Rest, Fluids, Tyleno l/Motrin [...]
--- OUTSIDE RECORDS SUMMARY | 2020-11-05 09:35 | XMS REPORT | CCD ---
Author Author Josh Keyes D.O. Organization [facility] Address [address] [place] [address] Phone Care Team Providers Care Manager Clinical Applications Name Role Phone Tracie Keyes D.O., PP Unavailable CCM Unavailable Summary Purpose Interface Exchange Insurance Providers Payer name Policy type / Coverage type Covered republican ID Effective Begin Date Effective End Date WPS MEDICARE PART B [place] Medicare Part B [id number] Unknown [facility] Medicare Part B [id number] 2019 Un known Family history Sister Diagnosis Age At Onset seizure disorder Unknown Father Diagnosis Age At Onset Diabetes mellitus Type 2 Unknown Mother Diagnosis Age At Onset Diabetes mellitus Type 2 Unknown Social History Social History Element Codes Description Effective Dates Tobacco history SNOMED CT: 57666576 Currently smokes tobacco Marital status Unknown 10/01/2009 [...] E906.4 09/09/2011 Active Hypertension Unknown 10/01/2009 Active [place] spotted fever Unknown 07/24/2009 Act [place] B12 DEFIC ANEMIA NEC ICD-9: 281.1 10/01/2009 Active Hyperuricemia ICD-9: 790.6 10/01/2009 Active Myalgia ICD-9: 729.1 10/01/2009 Active [place] spotted fever ICD-9: 082.0 10/01/2009 Act [place] Medications Medication Codes Instructions Start Date Stop Date Status Fill Instructions Eliquis 5 mg tablet RxNorm: 2730252 Take 1 Tablet(s) Oral two ti mes a day 09/19/2020 12/17/2020 Active tramadol 50 mg tablet RxNorm: 972732 Take 1 Tablet(s) O ral Q8H as needed for pain Take with 2 tylenol 09/17/2020 No Stop Date Active Eliquis 5 mg tablet RxNorm: 9437584 Take 2 Tablet(s) Oral two ti mes a day 09/17/2020 No Stop Date Active lisinopril 40 mg tablet RxNorm: 549013 1 Tablet(s) Oral QD repl aces 20mg dose 04/18/2020 10/15/2020 Inactive Men's Multivitamin 400 mcg-20 mcg-300 mcg tablet RxNorm: 1 Tablet(s) Oral QD 04/18/2020 No Stop Date Active lisinopril 20 mg tablet RxNorm: 798091 1 Tablet(s) Oral QD 03/29/19 21 04/17/2020 Inactive Due for his 6 month appointm ent lisinopril 20 mg tablet RxNorm: 378006 TAKE ONE (1) TAB LET BY MOUTH DAILY... Needs fwup 10/03/2019 11/02/2019 Inactive lisinopril 20 mg tablet RxNorm: 569906 TAKE ONE (1) TABLET BY M OUTH DAILY... 10/03/2019 10/02/2019 Inactive Zithromax 500 mg tablet RxNorm: 657474 1 Tablet(s) Oral QD 04/25/19 20 05/02/2019 Inactive [AttnRPh: Saving apply/adjud icate RxGRP:SG20 RxBIN:[id number] RxPCN: ID#:[id number]] lisinopril 20 mg tablet RxNorm: 417388 1 Tablet(s) Oral QD 04/25/19 20 10/02/2019 Inactive nystatin 100,000 unit/mL oral suspension RxNorm: 100606 5 Milliliter(s) Oral four times a day swish, gargle and spit 04/25/2019 05/09/2019 Inactive diltiazem ER (XR/XT) 120 mg capsule,extended release 2 4 hr, controlled RxNorm: 068617 Capsule(s) 1 Capsule(s) PO QD 06/10/2018 10/11/2019 Inactive [SAVINGS FOR UNINSURED PATIENTS -- BIN:297730, PCN: ASPROD1, Group: AME08, ID# [id number], Process claim through MedISpeaktoitact, for questions: . THIS IS NOT INSURANCE.] lisinopril 20 mg-hydrochlorothiazide 12.5 mg tablet RxNorm: 910162 1 Tablet(s) PO QAM 06/10/2018 10/11/2019 Inactive [AttnRPh: Saving apply/adjudicate RxGRP:SG20 RxBIN:[id number] RxPCN: ID#:[id number]] lisinopril 20 mg-hydrochlorothiazide 12.5 mg tablet RxNorm: 097057 1 Tablet(s) PO QAM 05/06/2017 01/30/2018 Inactive [AttnRPh: Saving apply/adjudicate RxGRP:SG20 RxBIN:[id number] RxPCN: ID#:[id number]] diltiazem ER (XR/XT) 120 mg capsule,extended release 2 4 hr, controlled RxNorm: 893547 Capsule(s) 1 Capsule(s) PO QD 05/06/2017 01/30/2018 Inactive [SAVINGS FOR UNINSURED PATIENTS -- BIN:280126, PCN: ASPROD1, Group: AME08, ID# [id number], Process claim through MedImpact, for questions: . THIS IS NOT INSURANCE.] diltiazem ER (XR/XT) 120 mg capsule,extended release 2 4 hr, controlled RxNorm: 287978 Capsule(s) 1 Capsule(s) PO QD 09/16/2016 03/14/2017 Inactive [SAVINGS FOR UNINSURED PATIENTS -- BIN:476180, PCN: ASPROD1, Group: AME08, ID# [id number], Process claim through MedImpact, for questions: . THIS IS NOT INSURANCE.] lisinopril 20 mg-hydrochlorothiazide 12.5 mg tablet RxNorm: 861652 1 Tablet(s) PO QAM 09/16/2016 03/14/2017 Inactive [AttnRPh: Saving apply/adjudicate RxGRP:SG20 RxBIN:[id number] RxPCN: ID#:[id number]] diltiazem ER (XR/XT) 120 mg capsule,extended release,control led RxNorm: 023051 1 Capsule(s) PO QD 04/09/2016 10/11/2019 Inactive [SAVINGS FOR UN INSURED PATIENTS -- BIN:271904, PCN: ASPROD1, Group: AME08, ID# [id number], Process claim through MedImpact, for questions: . THIS IS NOT INSURANCE.] diltiazem ER (XR/XT) 120 mg capsule,extended release,control led RxNorm: 508735 1 Capsule(s) PO QD 04/09/2016 09/15/2016 Inactive [SAVINGS FOR UN INSURED PATIENTS -- BIN:029417, PCN: ASPROD1, Group: AME08, ID# [id number], Process claim through MedImpact, for questions: . THIS IS NOT INSURANCE.] lisinopril 20 mg-hydrochlorothiazide 12.5 mg tablet RxNorm: 236351 1 Tablet(s) PO QAM 12/10/2015 06/06/2016 Inactive [AttnRPh: Saving apply/adjudicate RxGRP:SG20 RxBIN:[id number] RxPCN: ID#:[id number]] diltiazem ER (XR/XT) 120 mg capsule,extended release,control led RxNorm: 828473 1 Capsule(s) PO QD 02/07/2015 02/01/2016 Inactive [SAVINGS FOR UN INSURED PATIENTS -- BIN:716778, PCN: ASPROD1, Group: AME08, ID# [id number], Process claim through MedImpact, for questions: . THIS IS NOT INSURANCE.] lisinopril 20 mg-hydrochlorothiazide 12.5 mg tablet RxNorm: 432945 1 Tablet(s) PO QAM 02/07/2015 12/09/2015 Inactive [AttnRPh: Saving apply/adjudicate RxGRP:SG20 RxBIN:[id number] RxPCN: ID#:[id number]] metformin ER 1,000 mg 24 hr tablet,extended release RxNorm: 593343 1 Tablet(s) PO QD 02/07/2015 07/19/2015 Inactive [SAVINGS FOR UNI NSURED PATIENTS -- BIN:607264, PCN: ASPROD1, Group: AME08, ID# [id number], Process claim through Blast Ramp, for questions: . THIS IS NOT INSURANCE.] diltiazem ER (XR/XT) 120 mg capsule,extended release,control led RxNorm: 777611 1 Capsule(s) PO QD 12/28/2014 02/06/2015 Inactive [SAVINGS FOR UN INSURED PATIENTS -- BIN:420264, PCN: ASPROD1, Group: AME08, ID# [id number], Process claim through Pegastechact, for questions: . THIS IS NOT INSURANCE.] lisinopril 20 mg-hydrochlorothiazide 12.5 mg tablet RxNorm: 532619 1 Tablet(s) PO QAM 11/20/2014 10/11/2019 Inactive cefdinir 300 mg capsule RxNorm: 835510 2 Capsule(s) PO QD 07/19/2014 07/28/2014 Inactive [SAVINGS FOR NON-COVERED DRUGS -- BIN:00 3585, PCN: ASPROD1, Group: XXXXX, ID# [id number], Questions: . THIS IS NOT INSURANCE.] meclizine 25 mg tablet RxNorm: 045673 1 Tablet(s) PO QHS 07/04/2014 0 10/31/2014 Inactive [SAVINGS FOR NON-COVERED DRUGS -- BIN:00 3585, PCN: ASPROD1, Group: XXXXX, ID# [id number], Questions: . THIS IS NOT INSURANCE.] allopurinol 300 mg tablet RxNorm: 916088 1 Tablet(s) PO QD 06/17/19 15 06/15/2014 Inactive allopurinol 300 mg tablet RxNorm: 294903 1 Tablet(s) PO QD 06/17/19 15 02/06/2015 Inactive [SAVINGS FOR NON-COVERED TATYANA GS -- BIN:464209, PCN: ASPROD1, Group: XXXXX, ID# [id number], Questions: . THIS IS NOT INSURANCE.] naproxen 500 mg tablet RxNorm: 891340 1 Tablet(s) PO BID 06/16/2014 0 07/19/2015 Inactive [SAVINGS FOR NON-COVERED DRUGS -- BIN:00 3585, PCN: ASPROD1, Group: XXXXX, ID# [id number], Questions: . THIS IS NOT INSURANCE.] metformin ER 1,000 mg 24 hr tablet,extended release RxNorm: 717060 1 Tablet(s) PO QD 03/14/2014 02/06/2015 Inactive [SAVINGS FOR UNI NSURED PATIENTS -- BIN:411433, PCN: ASPROD1, Group: AME08, ID# [id number], Process claim through MedImpact, for questions: . THIS IS NOT INSURANCE.] metformin ER 500 mg tablet,extended release 24hr RxNorm: 860 975 1 Tablet(s) PO QD 01/05/2014 03/13/2014 Inactive [SAVINGS FOR UNI NSURED PATIENTS -- BIN:358807, PCN: ASPROD1, Group: AME08, ID# [id number], Process claim through MedImpact, for questions: . THIS IS NOT INSURANCE.] metformin ER 500 mg tablet,extended release 24hr RxNorm: 860 975 1 Tablet(s) PO QD 11/28/2013 01/04/2014 Inactive [SAVINGS FOR UNI NSURED PATIENTS -- BIN:708404, PCN: ASPROD1, Group: AME08, ID# [id number], Process claim through MedImpact, for questions: . THIS IS NOT INSURANCE.] Keflex 500 mg capsule RxNorm: 158728 1 Capsule(s) PO TID 11/09/2013 0 11/15/2013 Inactive [SAVINGS FOR UNINSURED PATIENTS -- BIN:0 61493, PCN: ASPROD1, Group: AME08, ID# [id number], Process claim through MedImpact, for questions: . THIS IS NOT INSURANCE.] diltiazem ER (XR/XT) 120 mg capsule,extended release,control led RxNorm: 601944 1 Capsule(s) PO QD 11/09/2013 11/03/2014 Inactive [SAVINGS FOR UN INSURED PATIENTS -- BIN:820531, PCN: ASPROD1, Group: MONSERRATEIan, ID# [id number], Process claim through MedImpact, for questions: . THIS IS NOT INSURANCE.] lisinopril 20 mg-hydrochlorothiazide 12.5 mg tablet RxNorm: 117939 2 Tablet(s) PO QAM 11/09/2013 11/20/2014 Inactive [AttnRPh: Saving apply/adjudicate RxGRP:SG20 RxBIN:[id number] RxPCN: ID#:[id number]] diltiazem ER (XR/XT) 120 mg capsule,extended release,control led RxNorm: 896290 1 Capsule(s) PO QD -need labs 10/31/2013 11/08/2013 Inactive [DELICIA INGS FOR UNINSURED PATIENTS -- BIN:953748, PCN: ASPROD1, Group: TRAN, ID# [id number], Process claim through MedImpact, for questions: . THIS IS NOT INSURANCE.] lisinopril 20 mg-hydrochlorothiazide 12.5 mg tablet RxNorm: 654562 2 Tablet(s) PO QAM 10/31/2013 11/08/2013 Inactive [AttnRPh: Saving apply/adjudicate RxGRP:SG20 RxBIN:[id number] RxPCN: ID#:[id number]] diltiazem ER (XR/XT) 120 mg capsule,extended release,control led RxNorm: 827053 1 Capsule(s) PO QD -need labs 09/12/2013 10/11/2013 Inactive [DELICIA INGS FOR UNINSURED PATIENTS -- BIN:889777, PCN: ASPROD1, Group: AME08, ID# [id number], Process claim through MedImpact, for questions: . THIS IS NOT INSURANCE.] Omnicef 300 mg capsule RxNorm: 066780 2 Capsule(s) PO QD 11/24/2012 0 11/08/2013 Inactive naproxen 500 mg tablet RxNorm: 466884 1 Tablet(s) PO TID 11/04/2012 0 11/03/2012 Inactive allopurinol 100 mg tablet RxNorm: 840411 1 Tablet(s) PO BID 013 11/08/2013 Inactive naproxen 500 mg tablet RxNorm: 793811 1 Tablet(s) PO TID 11/04/2012 0 11/08/2013 Inactive diltiazem ER (XR/XT) 120 mg capsule,extended release,control led RxNorm: 228510 1 Capsule(s) PO QD 08/02/2012 09/12/2013 Inactive lisinopril 20 mg-hydrochlorothiazide 12.5 mg tablet RxNorm: 421591 2 Tablet(s) PO QAM 08/02/2012 07/27/2013 Inactive acyclovir 800 mg tablet RxNorm: 654874 1 Tablet(s) PO D Take 1 tablet by mouth 5 times daily 02/26/2012 11/02/2012 Inactive acyclovir 800 mg tablet RxNorm: 095946 1 Tablet(s) PO D 02/25/2012 Inactive clindamycin 300 mg capsule RxNorm: 604135 1 Capsule(s) PO TID 02/2403/02/2012 Inactive lisinopril-hydrochlorothiazide 20 mg-12.5 mg tablet RxNorm: 330970 2 Tablet(s) PO QAM 01/30/2012 08/01/2012 Inactive diltiazem ER (XR/XT) 120 mg capsule,extended release,control led RxNorm: 158804 1 Capsule(s) PO QD 01/30/2012 08/01/2012 Inactive lisinopril-hydrochlorothiazide 20 mg-12.5 mg tablet RxNorm: 843088 2 Tablet(s) PO QAM 01/30/2012 10/11/2019 Inactive diltiazem ER (XR/XT) 120 mg capsule,extended release,control led RxNorm: 926024 1 Capsule(s) PO QD 01/30/2012 10/11/2019 Inactive Culturelle 10 billion cell capsule RxNorm: 938584 1 Capsule(s) PO Q D 10/16/2011 02/24/2012 Inactive Omnicef 300 mg capsule RxNorm: 931191 2 Capsule(s) PO QD 09/24/2011 0 11/02/2012 Inactive diltiazem ER (XR/XT) 120 mg capsule,extended release,control led RxNorm: 037996 1 Capsule(s) PO QD 09/09/2011 01/29/2012 Inactive Culturelle 10 billion cell Cap RxNorm: 810978 1 Capsule (s) PO BID take a few hours after Doxycycline. Probiotic 09/09/2011 09/28/2011 Inactive lisinopril-hydrochlorothiazide 20 mg-12.5 mg tablet RxNorm: 378782 2 Tablet(s) PO QAM 09/09/2011 01/29/2012 Inactive doxycycline hyclate 100 mg Tab RxNorm: 6299723 1 Tablet( s) PO BID antibiotic. (may make a little sensitive to sunburn) 09/09/2011 09/18/2011 Inactiv e lisinopril-hydrochlorothiazide 20 mg-12.5 mg Tab RxNorm: 197 886 2 Tablet(s) PO QAM Due for yearly check-up 09/08/2011 09/08/2011 Inactive diltiazem ER (XR/XT) 120 mg Continuous Release Cap RxNorm: 8 07453 1 Capsule(s) PO QD Due for yearly check-up. 09/08/2011 09/08/2011 Inactive diltiazem ER (XR/XT) 120 mg Continuous Release Cap RxNorm: 8 24177 1 Capsule(s) PO QD 08/29/2010 08/23/2011 Inactive lisinopril-hydrochlorothiazide 20 mg-12.5 mg Tab RxNorm: 197 886 2 Tablet(s) PO QAM 08/29/2010 08/23/2011 Inactive lisinopril-hydrochlorothiazide 20 mg-25 mg Tab RxNorm: 727847 1 Tablet(s) PO QD 08/21/2010 08/28/2010 Inactive allopurinol 100 mg tablet RxNorm: 850219 1 Tablet(s) PO QD 04/22/19 11 08/28/2010 Inactive allopurinol 100 mg Tab RxNorm: 351757 1 Tablet(s) PO QD 12/18/2009 Inactive Allopurinol 100 mg Tab RxNorm: 475299 1 Tablet(s) PO QD 12/12/2009 Inactive Allopurinol 100 mg Tab RxNorm: 903348 1 Tablet(s) PO QD 10/30/2009 Inactive Omnicef 300 mg Cap RxNorm: 628325 2 Capsule(s) PO QD 10/01/200910/29 Inactive Allopurinol 100 mg Tab RxNorm: 590758 1 Tablet(s) PO QD 10/01/2009 Inactive Vitamin D3 oral RxNorm: 2418 oral 04/18/2020 Active Vitamin C oral RxNorm: 1151 oral 04/18/2020 Active Vitamin B12 1000mcg Tablet RxNorm: 1 Tablet(s) PO QD 08/29/2010 Inactive lisinopril 20 mg-hydrochlorothiazide 12.5 mg tablet RxNorm: 261636 1 Tablet(s) PO QAM 11/20/2014 11/19/2014 Inactive Medrol (Sid) 4 mg tablets in a dose pack RxNorm: 112341 Tablet(s) PO as directed 11/09/2013 11/08/2013 Inactive Omnicef 300 mg Cap RxNorm: 358022 2 Capsule(s) PO QD 09/24/201112/11 Inactive Fish Oil 1,000 mg Cap RxNorm: 1 Capsule(s) PO QD 11/09/20132013 Inactive diltiazem ER (XR/XT) 120 mg Continuous Release Cap RxNorm: 8 19867 1 Capsule(s) PO QD 08/29/2010 08/28/2010 Inactive Culturelle 10 billion cell capsule RxNorm: 775123 1 Capsule(s) PO Q D 11/03/2012 11/02/2012 Inactive metformin ER 500 mg tablet,extended release 24hr RxNorm: 860 975 1 Tablet(s) PO QD 11/28/2013 11/27/2013 Inactive Lisinopril Oral RxNorm: Oral 10/01/2009 10/01/2009 Inactive Vitamin B12 1000mcg Tablet RxNorm: 1 Tablet(s) PO QD 12/18/2015 Inactive Vitamin B12 1000mcg Tablet RxNorm: 1 Tablet(s) PO QD 11/09/2013 Inactive lisinopril-hydrochlorothiazide 20 mg-25 mg Tab RxNorm: 153786 1 Tablet(s) PO QD 08/21/2010 2010 Inactive metformin ER 1,000 mg 24 hr tablet,extended release RxNorm: 261379 1 Tablet(s) PO QD 03/14/2014 03/13/2014 Inactive Fish Oil 1,000 mg capsule RxNorm: 1 Capsule(s) PO QD 12/18/2015 Inactive Medication Administered No Medication Administered data Immunizations Vaccine Codes Date Status B12 Unknown 09/24/2011 Results Observation Observation Code Item Item Code Result Date S ervice Location GLYCOSYLATED HEMOGLOBIN TEST 63325 Hgb A1c 09348-2 5.7 % 0 04/18/2020 Unknown GFR CALC 9568054 GFR Non Afr Amr >60 mL/min 04/18/2020 Un known GFR CALC 5381882 GFR Afr Amr >60 mL/min 04/18/2020 Unknow n COMPREHENSIVE METABOLIC 71483 AST 35 U/L 2020 Unknown COMPREHENSIVE METABOLIC 89794 ALT 45 U/L 2020 Unknown COMPREHENSIVE METABOLIC 45251 BUN 10 mg/dL 2020 Unknown COMPREHENSIVE METABOLIC 68855 ALBUMIN 4.3 g/dL 2020 Unknown COMPREHENSIVE METABOLIC 61778 CHLORIDE 101 mmol/L 04/18 Unknown COMPREHENSIVE METABOLIC 25303 Bili Total 0.8 mg/dL 04/18 Unknown COMPREHENSIVE METABOLIC 46183 ALK PHOS 73 U/L 2020 Unknown COMPREHENSIVE METABOLIC 65537 SODIUM 137 mmol/L 04/18 Unknown COMPREHENSIVE METABOLIC 33859 CREATININE 0.99 mg/dL 03/27 Unknown COMPREHENSIVE METABOLIC 51142 CALCIUM 9.1 mg/dL 2020 Unknown COMPREHENSIVE METABOLIC 92424 POTASSIUM 4.3 mmol/L 04/18 Unknown COMPREHENSIVE METABOLIC 83969 Total Protein 7.0 g/dL Unknown COMPREHENSIVE METABOLIC 54954 Glucose 133 mg/dL 2020 Unknown COMPREHENSIVE METABOLIC 13700 Bicarbonate 26 mmol/L 03/27 Unknown COMPREHENSIVE METABOLIC 65003 AGAP 10 mmol/L 2020 Unknown MEAN GLUC 7913547 Calc Mean Gluc 117 mg/dL 04/18/2020 Unkn own LIPID [facility] 21325 Cholesterol 187 mg/dL 04/18/2020 Unkno wn [facility] 08893 Triglyceride 87 mg/dL 04/18/2020 Unkn own [facility] 81275 HDL CHOLESTEROL 59 mg/dL 04/18/2020 U nknown L[facility] 23351 Chol/HDL Ratio 3.17 ratio 04/18/2020 U nknown L[facility] GROUP 33371 NON-HDL Chol 128 mg/dL 04/18/2020 Unkn own [facility] 57827 LDL Cholesterol 111 mg/dL 04/18/2020 U nknown HEPATITIS C ANTIBODY 55766 Hepatitis C Ab Non-Reactive 02/01/2018 Unknown GLYCOSYLATED HEMOGLOBIN TEST 05761 Hgb A1c 72225-5 6.2 % 1 04/01/2017 Unknown GFR CALC 9108068 GFR Non Afr Amr >60 mL/min 01/29/2018 Un known GFR CALC 4569857 GFR Afr Amr >60 mL/min 01/29/2018 Unknow n COMPREHENSIVE METABOLIC 59350 AST 17 U/L 2017 Unknown COMPREHENSIVE METABOLIC 06954 ALT 17 U/L 2017 Unknown COMPREHENSIVE METABOLIC 13669 BUN 12 mg/dL 2017 Unknown COMPREHENSIVE METABOLIC 62106 ALBUMIN 4.6 g/dL 2017 Unknown COMPREHENSIVE METABOLIC 86553 CHLORIDE 101 mmol/L 01/29 Unknown COMPREHENSIVE METABOLIC 84543 Bili Total 0.9 mg/dL 01/29 Unknown COMPREHENSIVE METABOLIC 04175 ALK PHOS 57 U/L 2017 Unknown COMPREHENSIVE METABOLIC 51543 SODIUM 136 mmol/L 01/29 Unknown COMPREHENSIVE METABOLIC 71797 CREATININE 1.00 mg/dL 08/2017 Unknown COMPREHENSIVE METABOLIC 55019 CALCIUM 9.6 mg/dL 2017 Unknown COMPREHENSIVE METABOLIC 65213 POTASSIUM 4.2 mmol/L 01/29 Unknown COMPREHENSIVE METABOLIC 40543 Total Protein 6.9 g/dL Unknown COMPREHENSIVE METABOLIC 16989 Glucose 128 mg/dL 2017 Unknown COMPREHENSIVE METABOLIC 95843 Bicarbonate 27 mmol/L 08/2017 Unknown COMPREHENSIVE METABOLIC 26256 AGAP 8 mmol/L 2017 Unknown LIPID GROUP 04226 Cholesterol 168 mg/dL 01/29/2018 Unkno wn LIPID GROUP 95846 Triglyceride 82 mg/dL 01/29/2018 Unkn own LIPID GROUP 14773 HDL CHOLESTEROL 43 mg/dL 01/29/2018 U nknown LIPID GROUP 85239 Chol/HDL Ratio 3.91 ratio 01/29/2018 U nknown LIPID GROUP 20772 NON-HDL Chol 125 mg/dL 01/29/2018 Unkn own LIPID GROUP 57249 LDL Cholesterol 109 mg/dL 01/29/2018 U nknown MEAN GLUC 5459547 Calc Mean Gluc 131 mg/dL 01/29/2018 Unkn own LIPID GROUP 26729 Cholesterol 164 mg/dL 05/01/2017 Unkno wn LIPID GROUP 54337 Triglyceride 131 mg/dL 05/01/2017 Unkn own LIPID GROUP 53817 HDL CHOLESTEROL 45 mg/dL 05/01/2017 U nknown LIPID GROUP 79350 Chol/HDL Ratio 3.64 ratio 05/01/2017 U nknown LIPID GROUP 18753 NON-HDL Chol 119 mg/dL 05/01/2017 Unkn own LIPID GROUP 39542 LDL Cholesterol 93 mg/dL 05/01/2017 U nknown COMPLETE BLOOD COUNT 0276736 WBC 4.9 10e9/L 05/02/19 18 Unknown COMPLETE BLOOD COUNT 8793075 RBC 4.31 10e12/L 2017 Unknown COMPLETE BLOOD COUNT 6061449 HEMOGLOBIN 14.3 g/dL 05/02/19 18 Unknown COMPLETE BLOOD COUNT 3284428 HEMATOCRIT 42.8 % 05/02/19 18 Unknown COMPLETE BLOOD COUNT 3101817 MCV 99.3 fL 8 Unknown COMPLETE BLOOD COUNT 6748179 MCH 33.2 pg 8 Unknown COMPLETE BLOOD COUNT 0842146 MCHC 33.4 g/dL 8 Unknown COMPLETE BLOOD COUNT 0099500 PLATELET COUNT 241 10e9/L 10/2017 Unknown COMPLETE BLOOD COUNT 2164261 Mean Plt Volume 11.0 fL 10/2017 Unknown COMPLETE BLOOD COUNT 2329839 Neut Auto 56.6 % 8 Unknown COMPLETE BLOOD COUNT 9418065 Lymph Auto 24.7 % 05/02/19 18 Unknown COMPLETE BLOOD COUNT 1594551 Bradley Auto 11.6 % 8 Unknown COMPLETE BLOOD COUNT 6491369 RDW 13.2 % 8 Unknown COMPLETE BLOOD COUNT 6095064 Eos Auto 6.9 % 8 Unknown COMPLETE BLOOD COUNT 2310000 Baso Auto 0.2 % 8 Unknown COMPLETE BLOOD COUNT 9786369 Neutrophil Abs 2.77 10e9/L Unknown COMPLETE BLOOD COUNT 4888008 Lymphocyte Abs 1.21 10e9/L Unknown COMPLETE BLOOD COUNT 5070735 Monocyte Abs 0.57 10e9/L 10/2017 Unknown COMPLETE BLOOD COUNT 5624136 Eosinophil Abs 0.34 10e9/L Unknown COMPLETE BLOOD COUNT 7672511 RDW-SD 47.2 fL 8 Unknown COMPLETE BLOOD COUNT 6033685 Basophil Abs 0.01 10e9/L 10/2017 Unknown GLYCOSYLATED HEMOGLOBIN TEST 02590 Hgb A1c 45961-4 6.0 % 0 05/01/2017 Unknown GFR CALC 7413183 GFR Non Afr Amr >60 mL/min 05/01/2017 Un known GFR CALC 7193615 GFR Afr Amr >60 mL/min 05/01/2017 Unknow n MEAN GLUC 9664578 Calc Mean Gluc 126 mg/dL 05/01/2017 Unkn own COMPREHENSIVE METABOLIC 30207 AST 17 U/L 2017 Unknown COMPREHENSIVE METABOLIC 14790 ALT 16 U/L 2017 Unknown COMPREHENSIVE METABOLIC 42557 BUN 13 mg/dL 2017 Unknown COMPREHENSIVE METABOLIC 22101 ALBUMIN 3.9 g/dL 2017 Unknown COMPREHENSIVE METABOLIC 64565 CHLORIDE 104 mmol/L 05/01 Unknown COMPREHENSIVE METABOLIC 79118 Bili Total 0.7 mg/dL 05/01 Unknown COMPREHENSIVE METABOLIC 70872 ALK PHOS 58 U/L 2017 Unknown COMPREHENSIVE METABOLIC 10915 SODIUM 139 mmol/L 05/01 Unknown COMPREHENSIVE METABOLIC 57853 CREATININE 0.99 mg/dL 10/2017 Unknown COMPREHENSIVE METABOLIC 73602 CALCIUM 9.5 mg/dL 2017 Unknown COMPREHENSIVE METABOLIC 44263 POTASSIUM 4.3 mmol/L 05/01 Unknown COMPREHENSIVE METABOLIC 12086 Total Protein 6.7 g/dL Unknown COMPREHENSIVE METABOLIC 27940 Glucose 110 mg/dL 2017 Unknown COMPREHENSIVE METABOLIC 67263 Bicarbonate 27 mmol/L 10/2017 Unknown COMPREHENSIVE METABOLIC 97212 AGAP 8 mmol/L 2017 Unknown PSA EQUIMOLAR NITHIN 07671 PSA Total 1.10 ng/mL 8 Unknown THYROID STIMULATING HORMONE 48276 TSH 0.673 uIU/mL 05/01/2017 Unknown GLYCOSYLATED HEMOGLOBIN TEST 40485 Hgb A1c 25268-8 5.8 % 1 03/08/2015 Unknown MEAN GLUC 1488250 Calc Mean Gluc 120 mg/dL 01/07/2016 Unkn own FREE T4 88951 T4 Free 1.13 ng/dL 01/04/2016 Unknown THYROID STIMULATING HORMONE 10377 TSH 0.875 uIU/mL 01/04/2016 Unknown COMPREHENSIVE METABOLIC 10447 AST 20 U/L 2015 Unknown COMPREHENSIVE METABOLIC 97178 ALT 20 U/L 2015 Unknown COMPREHENSIVE METABOLIC 43668 BUN 14 mg/dL 2015 Unknown COMPREHENSIVE METABOLIC 57479 ALBUMIN 4.4 g/dL 2015 Unknown COMPREHENSIVE METABOLIC 25635 CHLORIDE 103 mmol/L 01/03 Unknown COMPREHENSIVE METABOLIC 64286 Bili Total 0.5 mg/dL 01/03 Unknown COMPREHENSIVE METABOLIC 97018 ALK PHOS 53 U/L 2015 Unknown COMPREHENSIVE METABOLIC 03102 SODIUM 137 mmol/L 01/03 Unknown COMPREHENSIVE METABOLIC 27292 CREATININE 0.98 mg/dL 12/24 Unknown COMPREHENSIVE METABOLIC 51245 CALCIUM 9.6 mg/dL 2015 Unknown COMPREHENSIVE METABOLIC 52050 POTASSIUM 4.5 mmol/L 01/03 Unknown COMPREHENSIVE METABOLIC 65277 Total Protein 7.0 g/dL Unknown COMPREHENSIVE METABOLIC 89677 Glucose 117 mg/dL 2015 Unknown COMPREHENSIVE METABOLIC 46174 Bicarbonate 26 mmol/L 12/24 Unknown COMPREHENSIVE METABOLIC 69928 AGAP 8 mmol/L 2015 Unknown COMPLETE BLOOD COUNT 2441382 WBC 6.2 10e9/L 01/04/20 16 Unknown COMPLETE BLOOD COUNT 4506548 RBC 4.55 10e12/L 2015 Unknown COMPLETE BLOOD COUNT 1358644 HEMOGLOBIN 15.0 g/dL 01/04/20 16 Unknown COMPLETE BLOOD COUNT 4176527 HEMATOCRIT 43.8 % 01/04/20 16 Unknown COMPLETE BLOOD COUNT 7317022 MCV 96.3 fL 6 Unknown COMPLETE BLOOD COUNT 7381965 MCH 33.0 pg 6 Unknown COMPLETE BLOOD COUNT 2991414 MCHC 34.2 g/dL 6 Unknown COMPLETE BLOOD COUNT 7181753 PLATELET COUNT 259 10e9/L 12/2015 Unknown COMPLETE BLOOD COUNT 6007437 Mean Plt Volume 10.8 fL 12/2015 Unknown COMPLETE BLOOD COUNT 6375369 Neut Auto 62.4 % 6 Unknown COMPLETE BLOOD COUNT 1998206 Lymph Auto 25.9 % 01/04/20 16 Unknown COMPLETE BLOOD COUNT 6250312 Bradley Auto 6.8 % 6 Unknown COMPLETE BLOOD COUNT 3787217 RDW 13.4 % 6 Unknown COMPLETE BLOOD COUNT 0886096 Eos Auto 4.9 % 6 Unknown COMPLETE BLOOD COUNT [id number] Baso Auto 0.0 % 6 Unknown COMPLETE BLOOD COUNT [id number] Neutrophil Abs 3.87 10e9/L Unknown COMPLETE BLOOD COUNT [id number] Lymphocyte Abs 1.61 10e9/L Unknown COMPLETE BLOOD COUNT [id number] Monocyte Abs 0.42 10e9/L 12/24 Unknown COMPLETE BLOOD COUNT [id number] Eosinophil Abs 0.30 10e9/L Unknown COMPLETE BLOOD COUNT [id number] RDW-SD 46.2 fL 6 Unknown COMPLETE BLOOD COUNT [id number] Basophil Abs 0.00 10e9/L 12/24 Unknown PSA EQUIMOLAR NITHIN 84088 PSA Total 1.14 ng/mL 6 Unknown GFR CALC [id number] GFR Non Afr Amr >60 mL/min 01/04/2016 Un known GFR CALC [id number] GFR Afr Amr >60 mL/min 01/04/2016 Unknow n [facility] 19075 Cholesterol 172 mg/dL 01/04/2016 Unkno wn [facility] 53840 Triglyceride 156 mg/dL 01/04/2016 Unkn own [facility] 69177 HDL CHOLESTEROL 42 mg/dL 01/04/2016 U nknown L[facility] 88854 Chol/HDL Ratio 4.10 ratio 01/04/2016 U nknown L[facility] 19271 NON-HDL Chol 130 mg/dL 01/04/2016 Unkn own L[facility] GROUP 32312 LDL Cholesterol 99 mg/dL 01/04/2016 U nknown GLYCOSYLATED HEMOGLOBIN TEST 71129 A1C HPLC 53684-8 5.8 % 1 04/10/2014 Unknown COMPLETE BLOOD COUNT [id number] WBC 6.0 10e9/L 02/03/20 15 Unknown COMPLETE BLOOD COUNT [id number] RBC 4.39 10e12/L 2014 Unknown COMPLETE BLOOD COUNT [id number] HGB 14.3 g/dL 5 Unknown COMPLETE BLOOD COUNT [id number] HCT DET 41.7 % 5 Unknown COMPLETE BLOOD COUNT [id number] MCV 95.0 fL 5 Unknown COMPLETE BLOOD COUNT [id number] MCH 32.6 pg 5 Unknown COMPLETE BLOOD COUNT [id number] MCHC 34.3 g/dL 5 Unknown COMPLETE BLOOD COUNT [id number] PLT 272 10e9/L 02/03/20 15 Unknown COMPLETE BLOOD COUNT [id number] MPV 11.1 fL 5 Unknown COMPLETE BLOOD COUNT [id number] GARY % 62.7 % 5 Unknown COMPLETE BLOOD COUNT [id number] LY % 25.2 % 5 Unknown COMPLETE BLOOD COUNT [id number] MON % 7.9 % 5 Unknown COMPLETE BLOOD COUNT [id number] EOS % 4.0 % 5 Unknown COMPLETE BLOOD COUNT [id number] BASO % 0.2 % 5 Unknown COMPLETE BLOOD COUNT [id number] RDW 13.2 % 5 Unknown COMPLETE BLOOD COUNT 0179773 ABS GARY 3.76 10e9/L 015 Unknown COMPLETE BLOOD COUNT [id number] ABS LYMPH 1.51 10e9/L 015 Unknown COMPLETE BLOOD COUNT [id number] ABS MONO 0.47 10e9/L 015 Unknown COMPLETE BLOOD COUNT [id number] ABS EOS 0.24 10e9/L 015 Unknown COMPLETE BLOOD COUNT 8587736 ABS BASO 0.01 10e9/L 015 Unknown COMPLETE BLOOD COUNT 8327944 RDW-SD 44.7 fL 5 Unknown GFR CALC 3951619 GFR AA >60 ML/MIN 02/02/2015 Unknown GFR CALC 0116349 GFR NON-AA >60 ML/MIN 02/02/2015 Unknown THYROID STIMULATING HORMONE 49873 TSH 0.970 uIU/ML 02/02/2015 Unknown LIPID GROUP 46388 HDL TEST 41 MG/DL 02/02/2015 Unknown LIPID GROUP 53055 TRIG 151 MG/DL 02/02/2015 Unknown LIPID GROUP 75884 TEST LDL 122 MG/DL 02/02/2015 Unknown LIPID GROUP 08661 CHOL 193 MG/DL 02/02/2015 Unknown LIPID GROUP 89818 RCHOL/HDL 4.71 RATIO 02/02/2015 Unknow n LIPID GROUP 77039 NON-HDL CH 152 MG/DL 02/02/2015 Unknow n PSA EQUIMOLAR NITHIN 04260 PSA EQ 0.76 NG/ML 5 Unknown FREE T4 05916 FREE T4 0.93 NG/DL 02/02/2015 Unknown COMPREHENSIVE METABOLIC 50458 AST 21 U/L 2014 Unknown COMPREHENSIVE METABOLIC 22912 ALT 21 IU/L 2014 Unknown COMPREHENSIVE METABOLIC 04091 BUN 15 MG/DL 2014 Unknown COMPREHENSIVE METABOLIC 83864 ALBUMIN 4.5 GM/DL 2014 Unknown COMPREHENSIVE METABOLIC 75557 CHLORIDE 104 MMOL/L 02/02 Unknown COMPREHENSIVE METABOLIC 29504 BILI TOT 1.0 MG/DL 2014 Unknown COMPREHENSIVE METABOLIC 11625 ALK PHOS 71 U/L 2014 Unknown COMPREHENSIVE METABOLIC 84976 SODIUM 136 MMOL/L 02/02 Unknown COMPREHENSIVE METABOLIC 82908 CREATININE 0.94 MG/DL 01/23 Unknown COMPREHENSIVE METABOLIC 45762 CALCIUM 9.8 MG/DL 2014 Unknown COMPREHENSIVE METABOLIC 57030 POTASSIUM 4.3 MMOL/L 02/02 Unknown COMPREHENSIVE METABOLIC 51605 PROT TOT 6.9 GM/DL 2014 Unknown COMPREHENSIVE METABOLIC 44562 Glucose 113 MG/DL 2014 Unknown COMPREHENSIVE METABOLIC 63189 BICARB 26 MMOL/L 2014 Unknown COMPREHENSIVE METABOLIC 97006 ANION GAP 6 MEQ/L 2014 Unknown ANTI STREPTOLYSIN O TITER(ASO) 37696 ASO 57 IU/ML 06/19/2014 Unknown RA FACTOR 23505 RA FACTOR <20.0 IU/ML 06/15/2014 Unknown FREE T4 89047 FREE T4 1.19 NG/DL 06/15/2014 Unknown ANTINUCLEAR ANTIBODY SCREEN 00010 SHANNON SCR <1:80 Unknown ERYTHROCYTE SEDIMENTATION RATE 51191 ESR 2 MM/HR 06/14/2014 Unknown COMPLETE BLOOD COUNT [id number] WBC 6.7 10e9/L 06/15/19 15 Unknown COMPLETE BLOOD COUNT 7582024 RBC 4.86 10e12/L 2014 Unknown COMPLETE BLOOD COUNT 0077342 HGB 15.9 g/dL 5 Unknown COMPLETE BLOOD COUNT 4783224 HCT DET 45.0 % 5 Unknown COMPLETE BLOOD COUNT 9245104 MCV 92.6 fL 5 Unknown COMPLETE BLOOD COUNT 2459163 MCH 32.7 pg 5 Unknown COMPLETE BLOOD COUNT 2681150 MCHC 35.3 g/dL 5 Unknown COMPLETE BLOOD COUNT 4289002 PLT 299 10e9/L 06/15/19 15 Unknown COMPLETE BLOOD COUNT 2628521 MPV 10.0 fL 5 Unknown COMPLETE BLOOD COUNT 7481475 GARY % 63.8 % 5 Unknown COMPLETE BLOOD COUNT 0508821 LY % 18.3 % 5 Unknown COMPLETE BLOOD COUNT 3468441 MON % 12.1 % 5 Unknown COMPLETE BLOOD COUNT 3080666 EOS % 5.7 % 5 Unknown COMPLETE BLOOD COUNT 9568174 BASO % 0.1 % 5 Unknown COMPLETE BLOOD COUNT 6990256 RDW 13.3 % 5 Unknown COMPLETE BLOOD COUNT 3800318 ABS GARY 4.27 10e9/L 015 Unknown COMPLETE BLOOD COUNT 6056986 ABS LYMPH 1.23 10e9/L 015 Unknown COMPLETE BLOOD COUNT 8692992 ABS MONO 0.81 10e9/L 015 Unknown COMPLETE BLOOD COUNT 7524686 ABS EOS 0.38 10e9/L 015 Unknown COMPLETE BLOOD COUNT [id number] ABS BASO 0.01 10e9/L 015 Unknown COMPLETE BLOOD COUNT 0845108 RDW-SD 44.3 fL 5 Unknown URIC ACID 66600 URIC ACID 7.6 MG/DL 06/14/2014 [place] [address] SYP AB NR 06/14/2014 Unknown THYROID STIMULATING HORMONE 52217 TSH 0.825 uIU/ML 06/14/2014 Unknown GLYCOSYLATED HEMOGLOBIN TEST 20779 A1C HPLC 99780-9 6.0 % 0 06/14/2014 Unknown VITAMIN B 12 FOLIC ACID 10407|14952 VIT B 12 751 PG/ML 05/25 Unknown VITAMIN B 12 FOLIC ACID 11609|85037 FOLIC ACID 23.5 NG/ML Unknown GFR CALC 8889628 GFR AA >60 ML/MIN 06/14/2014 Unknown GFR CALC 9450017 GFR NON-AA >60 ML/MIN 06/14/2014 Unknown C-REACTIVE PROTEIN (CRP) QUANT 57511 CRP 0.1 MG/DL 06/14/2014 Unknown COMPREHENSIVE METABOLIC 58611 AST 19 U/L 2014 Unknown COMPREHENSIVE METABOLIC 74903 ALT 16 IU/L 2014 Unknown COMPREHENSIVE METABOLIC 17684 BUN 13 MG/DL 2014 Unknown COMPREHENSIVE METABOLIC 10801 ALBUMIN 5.1 GM/DL 2014 Unknown COMPREHENSIVE METABOLIC 79071 CHLORIDE 92 MMOL/L 2014 Unknown COMPREHENSIVE METABOLIC 98326 BILI TOT 0.6 MG/DL 2014 Unknown COMPREHENSIVE METABOLIC 46527 ALK PHOS 61 U/L 2014 Unknown COMPREHENSIVE METABOLIC 84780 SODIUM 128 MMOL/L 06/14 Unknown COMPREHENSIVE METABOLIC 90058 CREATININE 1.00 MG/DL 05/25 Unknown COMPREHENSIVE METABOLIC 33806 CALCIUM 10.7 MG/DL 06/14 Unknown COMPREHENSIVE METABOLIC 49567 POTASSIUM 4.1 MMOL/L 06/14 Unknown COMPREHENSIVE METABOLIC 30895 PROT TOT 7.6 GM/DL 2014 Unknown COMPREHENSIVE METABOLIC 07048 Glucose 106 MG/DL 2014 Unknown COMPREHENSIVE METABOLIC 92071 BICARB 29 MMOL/L 2014 Unknown COMPREHENSIVE METABOLIC 96684 ANION GAP 7 MEQ/L 2014 Unknown COMPREHENSIVE METABOLIC 88333 AST 21 U/L 2014 Unknown COMPREHENSIVE METABOLIC 16333 ALT 26 IU/L 2014 Unknown COMPREHENSIVE METABOLIC 57321 BUN 16 MG/DL 2014 Unknown COMPREHENSIVE METABOLIC 75115 ALBUMIN 4.6 GM/DL 2014 Unknown COMPREHENSIVE METABOLIC 60766 CHLORIDE 99 MMOL/L 2014 Unknown COMPREHENSIVE METABOLIC 14378 BILI TOT 0.5 MG/DL 2014 Unknown COMPREHENSIVE METABOLIC 99153 ALK PHOS 57 U/L 2014 Unknown COMPREHENSIVE METABOLIC 94841 SODIUM 134 MMOL/L 03/09 Unknown COMPREHENSIVE METABOLIC 18073 CREATININE 0.91 MG/DL 02/23 Unknown COMPREHENSIVE METABOLIC 94239 CALCIUM 9.9 MG/DL 2014 Unknown COMPREHENSIVE METABOLIC 63678 POTASSIUM 4.3 MMOL/L 03/09 Unknown COMPREHENSIVE METABOLIC 35692 PROT TOT 7.0 GM/DL 2014 Unknown COMPREHENSIVE METABOLIC 69078 Glucose 91 MG/DL 2014 Unknown COMPREHENSIVE METABOLIC 50641 BICARB 30 MMOL/L 2014 Unknown COMPREHENSIVE METABOLIC 67763 ANION GAP 5 MEQ/L 2014 Unknown GLYCOSYLATED HEMOGLOBIN TEST 59748 A1C HPLC 08563-6 6.4 % 0 03/09/2014 Unknown GFR CALC 2543979 GFR AA >60 ML/MIN 03/09/2014 Unknown GFR CALC 7290333 GFR NON-AA >60 ML/MIN 03/09/2014 Unknown GLYCOSYLATED HEMOGLOBIN TEST 03581 A1C HPLC 78861-4 6.0 % 0 11/22/2013 Unknown THYROID STIMULATING HORMONE 29415 TSH 0.643 uIU/ML 11/18/2013 Unknown PSA EQUIMOLAR NITHIN 13754 PSA EQ 0.75 NG/ML 4 Unknown COMPREHENSIVE METABOLIC 97424 AST 21 U/L 2013 Unknown COMPREHENSIVE METABOLIC 90543 ALT 22 IU/L 2013 Unknown COMPREHENSIVE METABOLIC 88345 BUN 16 MG/DL 2013 Unknown COMPREHENSIVE METABOLIC 85214 ALBUMIN 4.6 GM/DL 2013 Unknown COMPREHENSIVE METABOLIC 47397 CHLORIDE 97 MMOL/L 2013 Unknown COMPREHENSIVE METABOLIC 65336 BILI TOT 0.8 MG/DL 2013 Unknown COMPREHENSIVE METABOLIC 47870 ALK PHOS 68 U/L 2013 Unknown COMPREHENSIVE METABOLIC 31204 SODIUM 132 MMOL/L 11/18 Unknown COMPREHENSIVE METABOLIC 52712 CREATININE 0.95 MG/DL 10/25 Unknown COMPREHENSIVE METABOLIC 35261 CALCIUM 10.1 MG/DL 11/18 Unknown COMPREHENSIVE METABOLIC 87823 POTASSIUM 4.2 MMOL/L 11/18 Unknown COMPREHENSIVE METABOLIC 30847 PROT TOT 7.2 GM/DL 2013 Unknown COMPREHENSIVE METABOLIC 34845 Glucose 125 MG/DL 2013 Unknown COMPREHENSIVE METABOLIC 23480 BICARB 26 MMOL/L 2013 Unknown COMPREHENSIVE METABOLIC 43341 ANION GAP 9 MEQ/L 2013 Unknown COMPLETE BLOOD COUNT 0814563 WBC 7.3 10e9/L 11/19/19 14 Unknown COMPLETE BLOOD COUNT 8433682 RBC 4.68 10e12/L 2013 Unknown COMPLETE BLOOD COUNT 2054730 HGB 15.4 g/dL 4 Unknown COMPLETE BLOOD COUNT 9379548 HCT DET 43.4 % 4 Unknown COMPLETE BLOOD COUNT 9816691 MCV 92.7 fL 4 Unknown COMPLETE BLOOD COUNT 3660303 MCH 32.9 pg 4 Unknown COMPLETE BLOOD COUNT 2869070 MCHC 35.5 g/dL 4 Unknown COMPLETE BLOOD COUNT 0609731 PLT 286 10e9/L 11/19/19 14 Unknown COMPLETE BLOOD COUNT 3624633 MPV 10.8 fL 4 Unknown COMPLETE BLOOD COUNT 2192150 GARY % 61.6 % 4 Unknown COMPLETE BLOOD COUNT 3583779 LY % 25.6 % 4 Unknown COMPLETE BLOOD COUNT 6057651 MON % 8.7 % 4 Unknown COMPLETE BLOOD COUNT 8984135 EOS % 4.0 % 4 Unknown COMPLETE BLOOD COUNT 7079829 BASO % 0.1 % 4 Unknown COMPLETE BLOOD COUNT 9085096 RDW 12.9 % 4 Unknown COMPLETE BLOOD COUNT 0941629 ABS GARY 4.50 10e9/L 014 Unknown COMPLETE BLOOD COUNT 7995578 ABS LYMPH 1.87 10e9/L 014 Unknown COMPLETE BLOOD COUNT 8030685 ABS MONO 0.64 10e9/L 014 Unknown COMPLETE BLOOD COUNT 0747723 ABS EOS 0.29 10e9/L 014 Unknown COMPLETE BLOOD COUNT 3569966 ABS BASO 0.01 10e9/L 014 Unknown COMPLETE BLOOD COUNT 2244783 RDW-SD 42.9 fL 4 Unknown LIPID GROUP 58935 HDL TEST 52 MG/DL 11/18/2013 Unknown LIPID GROUP 71726 TRIG 100 MG/DL 11/18/2013 Unknown LIPID GROUP 06043 TEST LDL 110 MG/DL 11/18/2013 Unknown LIPID GROUP 72740 CHOL 182 MG/DL 11/18/2013 Unknown LIPID GROUP 97848 RCHOL/HDL 3.50 RATIO 11/18/2013 Unknow n LIPID GROUP 86113 NON-HDL CH 130 MG/DL 11/18/2013 Unknow n FREE T4 91591 FREE T4 1.28 NG/DL 11/18/2013 Unknown GFR CALC 0273335 GFR AA >60 ML/MIN 11/18/2013 Unknown GFR CALC 9615128 GFR NON-AA >60 ML/MIN 11/18/2013 Unknown COMPREHENSIVE METABOLIC 13661 AST 21 U/L 2012 Unknown COMPREHENSIVE METABOLIC 57279 ALT 20 IU/L 2012 Unknown COMPREHENSIVE METABOLIC 97913 BUN 12 MG/DL 2012 Unknown COMPREHENSIVE METABOLIC 69827 ALBUMIN 4.6 GM/DL 2012 Unknown COMPREHENSIVE METABOLIC 36443 CHLORIDE 105 MMOL/L 11/03 Unknown COMPREHENSIVE METABOLIC 08586 BILI TOT 0.5 MG/DL 2012 Unknown COMPREHENSIVE METABOLIC 05362 ALK PHOS 53 U/L 2012 Unknown COMPREHENSIVE METABOLIC 37426 SODIUM 138 MMOL/L 11/03 Unknown COMPREHENSIVE METABOLIC 72563 CREATININE 0.93 MG/DL 10/24 Unknown COMPREHENSIVE METABOLIC 15429 CALCIUM 9.7 MG/DL 2012 Unknown COMPREHENSIVE METABOLIC 53070 POTASSIUM 4.3 MMOL/L 11/03 Unknown COMPREHENSIVE METABOLIC 44290 PROT TOT 7.0 GM/DL 2012 Unknown COMPREHENSIVE METABOLIC 32862 Glucose 117 MG/DL 2012 Unknown COMPREHENSIVE METABOLIC 63968 BICARB 25 MMOL/L 2012 Unknown COMPREHENSIVE METABOLIC 13041 ANION GAP 8 MEQ/L 2012 Unknown GFR CALC 4531646 GFR AA >60 ML/MIN 11/03/2012 Unknown GFR CALC 2403588 GFR NON-AA >60 ML/MIN 11/03/2012 Unknown THYROID STIMULATING HORMONE 29796 TSH 1.218 uIU/ML 11/03/2012 Unknown URIC ACID 39874 URIC ACID 7.6 MG/DL 11/03/2012 Unknown COMPLETE BLOOD COUNT 5919231 WBC 5.0 10e9/L 11/04/19 13 Unknown COMPLETE BLOOD COUNT 7399144 RBC 4.70 10e12/L 2012 Unknown COMPLETE BLOOD COUNT 0850952 HGB 15.6 g/dL 3 Unknown COMPLETE BLOOD COUNT 6695447 HCT DET 44.2 % 3 Unknown COMPLETE BLOOD COUNT 7250344 MCV 94.0 fL 3 Unknown COMPLETE BLOOD COUNT 0422038 MCH 33.2 pg 3 Unknown COMPLETE BLOOD COUNT 3416953 MCHC 35.3 g/dL 3 Unknown COMPLETE BLOOD COUNT 1964772 PLT 248 10e9/L 11/04/19 13 Unknown COMPLETE BLOOD COUNT 2433487 MPV 10.9 fL 3 Unknown COMPLETE BLOOD COUNT 9153556 GARY % 58.3 % 3 Unknown COMPLETE BLOOD COUNT 3659968 LY % 27.9 % 3 Unknown COMPLETE BLOOD COUNT 6757895 MON % 7.0 % 3 Unknown COMPLETE BLOOD COUNT 2884354 EOS % 6.6 % 3 Unknown COMPLETE BLOOD COUNT 7305454 BASO % 0.2 % 3 Unknown COMPLETE BLOOD COUNT 3340628 RDW 13.2 % 3 Unknown COMPLETE BLOOD COUNT 7407961 ABS GARY 2.92 10e9/L 013 Unknown COMPLETE BLOOD COUNT 2507814 ABS LYMPH 1.40 10e9/L 013 Unknown COMPLETE BLOOD COUNT 4080153 ABS MONO 0.35 10e9/L 013 Unknown COMPLETE BLOOD COUNT 7986094 ABS EOS 0.33 10e9/L 013 Unknown COMPLETE BLOOD COUNT 2211472 ABS BASO 0.01 10e9/L 013 Unknown COMPLETE BLOOD COUNT 5882821 RDW-SD 44.1 fL 3 Unknown HERPE1/2MG 45354|76301|33154 HSV G1 EIA 1.78 INDEX 3 Unknown HERPE1/2MG 20195|66112|13873 HSVM1/2EIA 0.15 02/26/2012 Unknown HERPE1/2MG 36395|91130|02232 HSV G2 EIA 10.14 INDEX 02/25/19 13 Unknown COMPLETE BLOOD COUNT 9211217 WBC 9.4 10e9/L 02/24/19 13 Unknown COMPLETE BLOOD COUNT 7144190 RBC 4.54 10e12/L 2012 Unknown COMPLETE BLOOD COUNT 3887624 HGB 14.9 g/dL 3 Unknown COMPLETE BLOOD COUNT 9133374 HCT DET 43.0 % 3 Unknown COMPLETE BLOOD COUNT 6085437 MCV 94.7 fL 3 Unknown COMPLETE BLOOD COUNT [id number] MCH 32.8 pg 3 Unknown COMPLETE BLOOD COUNT 4067870 MCHC 34.7 g/dL 3 Unknown COMPLETE BLOOD COUNT 9465313 PLT 251 10e9/L 02/24/19 13 Unknown COMPLETE BLOOD COUNT 6537416 MPV 11.1 fL 3 Unknown COMPLETE BLOOD COUNT 5632412 GARY % 75.0 % 3 Unknown COMPLETE BLOOD COUNT 1842742 LY % 15.7 % 3 Unknown COMPLETE BLOOD COUNT 6087821 MON % 6.8 % 3 Unknown COMPLETE BLOOD COUNT 5528389 EOS % 2.3 % 3 Unknown COMPLETE BLOOD COUNT 4043006 BASO % 0.2 % 3 Unknown COMPLETE BLOOD COUNT 1849811 RDW 13.2 % 3 Unknown COMPLETE BLOOD COUNT 5558432 ABS GARY 7.05 10e9/L 013 Unknown COMPLETE BLOOD COUNT 0780220 ABS LYMPH 1.48 10e9/L 013 Unknown COMPLETE BLOOD COUNT 6300104 ABS MONO 0.64 10e9/L 013 Unknown COMPLETE BLOOD COUNT 5804425 ABS EOS 0.22 10e9/L 013 Unknown COMPLETE BLOOD COUNT 5561629 ABS BASO 0.02 10e9/L 013 Unknown COMPLETE BLOOD COUNT 6142928 RDW-SD 44.3 fL 3 Unknown COMPREHENSIVE METABOLIC 55328 AST 21 U/L 2012 Unknown COMPREHENSIVE METABOLIC 82323 ALT 22 IU/L 2012 Unknown COMPREHENSIVE METABOLIC 86907 BUN 12 MG/DL 2012 Unknown COMPREHENSIVE METABOLIC 20926 ALBUMIN 4.9 GM/DL 2012 Unknown COMPREHENSIVE METABOLIC 86625 CHLORIDE 102 MMOL/L 02/24 Unknown COMPREHENSIVE METABOLIC 41627 BILI TOT 0.6 MG/DL 2012 Unknown COMPREHENSIVE METABOLIC 25481 ALK PHOS 59 U/L 2012 Unknown COMPREHENSIVE METABOLIC 09217 SODIUM 137 MMOL/L 02/24 Unknown COMPREHENSIVE METABOLIC 67772 CREATININE 0.92 MG/DL 03/2012 Unknown COMPREHENSIVE METABOLIC 23509 CALCIUM 9.7 MG/DL 2012 Unknown COMPREHENSIVE METABOLIC 43758 POTASSIUM 4.1 MMOL/L 02/24 Unknown COMPREHENSIVE METABOLIC 50863 PROT TOT 6.9 GM/DL 2012 Unknown COMPREHENSIVE METABOLIC 67187 Glucose 127 MG/DL 2012 Unknown COMPREHENSIVE METABOLIC 37513 BICARB 25 MMOL/L 2012 Unknown COMPREHENSIVE METABOLIC 38429 ANION GAP 10 MEQ/L 2012 Unknown GFR CALC 1707687 GFR AA >60 ML/MIN 02/25/2012 Unknown GFR CALC 6887386 GFR NON-AA >60 ML/MIN 02/25/2012 Unknown TULAREM AB 3434008 TULAREM AB <1:20 09/23/2011 Unknown [place] FEVER 83365C3 IGG RMSF <1:16 0 09/19/2011 Unknown [place] [place] [employer] FEVER 30794Y2 IGM RMSF <1:10 0 09/19/2011 Unknown E CHAFF AB 5319994 IGG E CHFF <1:16 09/19/2011 Unknown E CHAFF AB 3817991 IGM E CHFF <1:10 09/19/2011 Unknown GLYCOSYLATED HEMOGLOBIN TEST 30662 A1C HPLC 31516-6 5.4 % 0 09/18/2011 Unknown GFR CALC 5025425 GFR AA >60 ML/MIN 09/17/2011 Unknown GFR CALC 2222187 GFR NON-AA >60 ML/MIN 09/17/2011 Unknown VITAMIN B 12 FOLIC ACID 06286|10986 VIT B 12 405 PG/ML 08/24 Unknown VITAMIN B 12 FOLIC ACID 04843|74953 FOLIC ACID 17.5 NG/ML Unknown COMPREHENSIVE METABOLIC 91196 AST 19 U/L 2011 Unknown COMPREHENSIVE METABOLIC 84322 ALT 19 IU/L 2011 Unknown COMPREHENSIVE METABOLIC 07962 BUN 12 MG/DL 2011 Unknown COMPREHENSIVE METABOLIC 03139 ALBUMIN 4.9 GM/DL 2011 Unknown COMPREHENSIVE METABOLIC 10668 CHLORIDE 98 MMOL/L 2011 Unknown COMPREHENSIVE METABOLIC 74672 BILI TOT 1.2 MG/DL 2011 Unknown COMPREHENSIVE METABOLIC 50255 ALK PHOS 60 U/L 2011 Unknown COMPREHENSIVE METABOLIC 42052 SODIUM 133 MMOL/L 09/16 Unknown COMPREHENSIVE METABOLIC 35719 CREATININE 1.12 MG/DL 08/24 Unknown COMPREHENSIVE METABOLIC 72597 CALCIUM 10.1 MG/DL 09/16 Unknown COMPREHENSIVE METABOLIC 92463 POTASSIUM 4.1 MMOL/L 09/16 Unknown COMPREHENSIVE METABOLIC 24292 PROT TOT 7.6 GM/DL 2011 Unknown COMPREHENSIVE METABOLIC 84953 Glucose 121 MG/DL 2011 Unknown COMPREHENSIVE METABOLIC 59627 BICARB 25 MMOL/L 2011 Unknown COMPREHENSIVE METABOLIC 85501 ANION GAP 10 MEQ/L 2011 Unknown COMPLETE BLOOD COUNT 73877 WBC 5.8 10e9/L 09/17/19 12 Unknown COMPLETE BLOOD COUNT 34451 RBC 5.01 10e12/L 2011 Unknown COMPLETE BLOOD COUNT 78946 HGB 16.4 g/dL 2 Unknown COMPLETE BLOOD COUNT 20011 HCT DET 46.7 % 2 Unknown COMPLETE BLOOD COUNT 23487 MCV 93.2 fL 2 Unknown COMPLETE BLOOD COUNT 59923 MCH 32.7 pg 2 Unknown COMPLETE BLOOD COUNT 06176 MCHC 35.1 g/dL 2 Unknown COMPLETE BLOOD COUNT 89073 PLT 275 10e9/L 09/17/19 12 Unknown COMPLETE BLOOD COUNT 19410 MPV 10.8 fL 2 Unknown COMPLETE BLOOD COUNT 55885 GARY % 47.1 % 2 Unknown COMPLETE BLOOD COUNT 98435 LY % 37.2 % 2 Unknown COMPLETE BLOOD COUNT 12480 MON % 9.5 % 2 Unknown COMPLETE BLOOD COUNT 87747 EOS % 5.9 % 2 Unknown COMPLETE BLOOD COUNT 87244 BASO % 0.3 % 2 Unknown COMPLETE BLOOD COUNT 87712 RDW 13.0 % 2 Unknown COMPLETE BLOOD COUNT 03906 ABS GARY 2.73 10e9/L 012 Unknown COMPLETE BLOOD COUNT 81933 ABS LYMPH 2.16 10e9/L 012 Unknown COMPLETE BLOOD COUNT 88657 ABS MONO 0.55 10e9/L 012 Unknown COMPLETE BLOOD COUNT 76280 ABS EOS 0.34 10e9/L 012 Unknown COMPLETE BLOOD COUNT 49899 ABS BASO 0.02 10e9/L 012 Unknown COMPLETE BLOOD COUNT 07788 RDW-SD 43.1 fL 2 Unknown LIPID GROUP 06426 HDL TEST 39 MG/DL 09/17/2011 Unknown LIPID GROUP 75158 TRIG 195 MG/DL 09/17/2011 Unknown LIPID GROUP 28398 TEST LDL 98 MG/DL 09/17/2011 Unknown LIPID GROUP 22873 CHOL 176 MG/DL 09/17/2011 Unknown LIPID GROUP 99602 RCHOL/HDL 4.51 RATIO 09/17/2011 Unknow n THYROID STIMULATING HORMONE 48810 TSH 2.892 uIU/ML 08/29/2010 Unknown COMPLETE BLOOD COUNT 57356 WBC 6.5 10e9/L 08/30/19 11 Unknown COMPLETE BLOOD COUNT 55824 RBC 4.83 10e12/L 2010 Unknown COMPLETE BLOOD COUNT 20570 HGB 15.9 g/dL 1 Unknown COMPLETE BLOOD COUNT 26311 HCT DET 44.4 % 1 Unknown COMPLETE BLOOD COUNT 82803 MCV 91.9 fL 1 Unknown COMPLETE BLOOD COUNT 23870 MCH 32.9 pg 1 Unknown COMPLETE BLOOD COUNT 25251 MCHC 35.8 g/dL 1 Unknown COMPLETE BLOOD COUNT 44092 PLT 273 10e9/L 08/30/19 11 Unknown COMPLETE BLOOD COUNT 39793 MPV 10.1 fL 1 Unknown COMPLETE BLOOD COUNT 90322 GARY % 45.3 % 1 Unknown COMPLETE BLOOD COUNT 00048 LY % 39.3 % 1 Unknown COMPLETE BLOOD COUNT 64632 MON % 9.8 % 1 Unknown COMPLETE BLOOD COUNT 46577 EOS % 5.4 % 1 Unknown COMPLETE BLOOD COUNT 42246 BASO % 0.2 % 1 Unknown COMPLETE BLOOD COUNT 77876 RDW 13.2 % 1 Unknown COMPLETE BLOOD COUNT 97213 ABS GARY 2.94 10e9/L 011 Unknown COMPLETE BLOOD COUNT 64746 ABS LYMPH 2.55 10e9/L 011 Unknown COMPLETE BLOOD COUNT 61299 ABS MONO 0.64 10e9/L 011 Unknown COMPLETE BLOOD COUNT 81521 ABS EOS 0.35 10e9/L 011 Unknown COMPLETE BLOOD COUNT 27750 ABS BASO 0.01 10e9/L 011 Unknown COMPLETE BLOOD COUNT 36069 RDW-SD 43.5 fL 1 Unknown FREE T4 08601 FREE T4 1.39 NG/DL 08/29/2010 Unknown LIPID GROUP 66026 HDL TEST 52 MG/DL 08/29/2010 Unknown LIPID GROUP 26866 TRIG 110 MG/DL 08/29/2010 Unknown LIPID GROUP 01857 TEST LDL 109 MG/DL 08/29/2010 Unknown LIPID GROUP 12478 CHOL 183 MG/DL 08/29/2010 Unknown LIPID GROUP 69136 RCHOL/HDL 3.52 RATIO 08/29/2010 Unknow n PSA EQUIMOLAR NITHIN 79265 PSA EQ 1.14 NG/ML 1 Unknown GFR CALC 9157653 GFR AA >60 ML/MIN 08/29/2010 Unknown GFR CALC 8508643 GFR NON-AA >60 ML/MIN 08/29/2010 Unknown COMPREHENSIVE METABOLIC 02404 AST 23 U/L 2010 Unknown COMPREHENSIVE METABOLIC 78099 ALT 19 IU/L 2010 Unknown COMPREHENSIVE METABOLIC 55114 BUN 12 MG/DL 2010 Unknown COMPREHENSIVE METABOLIC 86178 ALBUMIN 4.9 GM/DL 2010 Unknown COMPREHENSIVE METABOLIC 53743 CHLORIDE 95 MMOL/L 2010 Unknown COMPREHENSIVE METABOLIC 27408 BILI TOT 0.4 MG/DL 2010 Unknown COMPREHENSIVE METABOLIC 91677 ALK PHOS 59 U/L 2010 Unknown COMPREHENSIVE METABOLIC 90504 SODIUM 132 MMOL/L 08/29 Unknown COMPREHENSIVE METABOLIC 16172 CREATININE 0.96 MG/DL 08/2010 Unknown COMPREHENSIVE METABOLIC 78230 CALCIUM 10.6 MG/DL 08/29 Unknown COMPREHENSIVE METABOLIC 41975 POTASSIUM 4.0 MMOL/L 08/29 Unknown COMPREHENSIVE METABOLIC 51704 PROT TOT 8.0 GM/DL 2010 Unknown COMPREHENSIVE METABOLIC 08287 Glucose 105 MG/DL 2010 Unknown COMPREHENSIVE METABOLIC 07460 BICARB 22 MMOL/L 2010 Unknown COMPREHENSIVE METABOLIC 20876 ANION GAP 15 MEQ/L 2010 Unknown URIC ACID 20679 URIC ACID 6.7 MG/DL 12/12/2009 Unknown Procedures Procedure Codes Date ROUTINE VENIPUNCTURE CPT-4: 14676 04/18/2020 COMPREHEN METABOLIC PANEL CPT-4: 81514 04/18/2020 LIPID PANEL CPT-4: 54903 04/18/2020 A1C HPLC CPT-4: 64922 04/18/2020 PPPS, subseq visit CPT-4: G0439 10/12/2019 ROUTINE VENIPUNCTURE CPT-4: 72947 01/29/2018 COMPREHEN METABOLIC PANEL CPT-4: 67663 01/29/2018 LIPID PANEL CPT-4: 69984 01/29/2018 A1C HPLC CPT-4: 33829 01/29/2018 HEPATITIS C AB TEST CPT-4: 41045 01/29/2018 ROUTINE VENIPUNCTURE CPT-4: 65964 05/01/2017 ASSAY THYROID STIM HORMONE CPT-4: 87034 05/01/2017 COMPREHEN METABOLIC PANEL CPT-4: 21576 05/01/2017 COMPLETE CBC W/AUTO DIFF WBC CPT-4: 59652 05/01/2017 LIPID PANEL CPT-4: 64122 05/01/2017 A1C HPLC CPT-4: 49669 05/01/2017 ASSAY OF PSA TOTAL CPT-4: 59258 05/01/2017 ROUTINE VENIPUNCTURE CPT-4: 04011 01/04/2016 ASSAY OF FREE THYROXINE CPT-4: 13398 01/04/2016 ASSAY THYROID STIM HORMONE CPT-4: 56514 01/04/2016 COMPREHEN METABOLIC PANEL CPT-4: 39063 01/04/2016 COMPLETE CBC W/AUTO DIFF WBC CPT-4: 95477 01/04/2016 LIPID PANEL CPT-4: 15742 01/04/2016 ASSAY OF PSA TOTAL CPT-4: 49564 01/04/2016 A1C HPLC CPT-4: 61810 01/04/2016 ROUTINE VENIPUNCTURE CPT-4: 77341 02/02/2015 ASSAY OF FREE THYROXINE CPT-4: 77590 02/02/2015 ASSAY THYROID STIM HORMONE CPT-4: 79529 02/02/2015 COMPREHEN METABOLIC PANEL CPT-4: 51006 02/02/2015 COMPLETE CBC W/AUTO DIFF WBC CPT-4: 14382 02/02/2015 LIPID PANEL CPT-4: 06925 02/02/2015 ASSAY OF PSA TOTAL CPT-4: 12997 02/02/2015 A1C HPLC CPT-4: 40952 02/02/2015 THER/PROPH/DIAG INJ SC/IM CPT-4: 35717 07/19/2014 METHYLPREDNISOLONE 40 MG INJ CPT-4: J1030 07/19/2014 TRIAMCINOLONE ACET INJ NOS CPT-4: J3301 07/19/2014 ROUTINE VENIPUNCTURE CPT-4: 21193 06/14/2014 ASSAY OF FREE THYROXINE CPT-4: 03050 06/14/2014 ASSAY THYROID STIM HORMONE CPT-4: 84347 06/14/2014 COMPREHEN METABOLIC PANEL CPT-4: 87421 06/14/2014 COMPLETE CBC W/AUTO DIFF WBC CPT-4: 25980 06/14/2014 A1C HPLC CPT-4: 93111 06/14/2014 VITAMIN B 12 FOLIC ACID CPT-4: 83809|63069 06/14/2014 RBC SED RATE AUTOMATED CPT-4: 39038 06/14/2014 RHEUMATOID FACTOR QUANT CPT-4: 31855 06/14/2014 ANTINUCLEAR ANTIBODIES CPT-4: 14836 06/14/2014 ANTISTREPTOLYSIN O TITER CPT-4: 87185 06/14/2014 ASSAY OF BLOOD/URIC ACID CPT-4: 14756 06/14/2014 C-REACTIVE PROTEIN CPT-4: 11376 06/14/2014 ROUTINE VENIPUNCTURE CPT-4: 85430 03/09/2014 COMPREHEN METABOLIC PANEL CPT-4: 84376 03/09/2014 A1C HPLC CPT-4: 72546 03/09/2014 ROUTINE VENIPUNCTURE CPT-4: 61697 11/18/2013 ASSAY OF FREE THYROXINE CPT-4: 16046 11/18/2013 ASSAY THYROID STIM HORMONE CPT-4: 27083 11/18/2013 COMPREHEN METABOLIC PANEL CPT-4: 07265 11/18/2013 COMPLETE CBC W/AUTO DIFF WBC CPT-4: 62372 11/18/2013 LIPID PANEL CPT-4: 21202 11/18/2013 ASSAY OF PSA TOTAL CPT-4: 85666 11/18/2013 A1C HPLC CPT-4: 41387 11/18/2013 REMOVE FOREIGN BODY CPT-4: 95364 11/09/2013 OCCULT BLOOD FECES CPT-4: 27935 11/09/2013 THER/PROPH/DIAG INJ SC/IM CPT-4: 91310 11/24/2012 VITAMIN B12 INJECTION CPT-4: J3420 11/24/2012 COMPREHEN METABOLIC PANEL CPT-4: 85023 11/03/2012 COMPLETE CBC W/AUTO DIFF WBC CPT-4: 43180 11/03/2012 ASSAY THYROID STIM HORMONE CPT-4: 12746 11/03/2012 ASSAY OF BLOOD/URIC ACID CPT-4: 35161 11/03/2012 ROUTINE VENIPUNCTURE CPT-4: 91361 11/03/2012 ROUTINE VENIPUNCTURE CPT-4: 95883 02/25/2012 COMPREHEN METABOLIC PANEL CPT-4: 18344 02/25/2012 COMPLETE CBC W/AUTO DIFF WBC CPT-4: 31514 02/25/2012 HERPE1/2MG CPT-4: 62055|21566|48877 02/25/2012 THER/PROPH/DIAG INJ SC/IM CPT-4: 85007 09/24/2011 VITAMIN B12 INJECTION CPT-4: J3420 09/24/2011 CEFTRIAXONE SODIUM INJECTION CPT-4: J0696 09/24/2011 THER/PROPH/DIAG INJ SC/IM CPT-4: 74021 09/24/2011 ROUTINE VENIPUNCTURE CPT-4: 65095 09/17/2011 COMPREHEN METABOLIC PANEL CPT-4: 04204 09/17/2011 COMPLETE CBC W/AUTO DIFF WBC CPT-4: 97384 09/17/2011 LIPID PANEL CPT-4: 57140 09/17/2011 VITAMIN B 12 FOLIC ACID CPT-4: 52608|45969 09/17/2011 A1C GLYCOSYLATED HEMOGLOBIN TEST CPT-4: 31315 012 ROUTINE VENIPUNCTURE CPT-4: 66123 08/29/2010 COMPLETE CBC W/AUTO DIFF WBC CPT-4: 34175 08/29/2010 COMPREHEN METABOLIC PANEL CPT-4: 45212 08/29/2010 LIPID PANEL CPT-4: 61447 08/29/2010 ASSAY THYROID STIM HORMONE CPT-4: 16498 08/29/2010 ASSAY OF FREE THYROXINE CPT-4: 70213 08/29/2010 ASSAY OF PSA TOTAL CPT-4: 05733 08/29/2010 THER/PROPH/DIAG INJ SC/IM CPT-4: 29675 12/12/2009 VITAMIN B12 INJECTION CPT-4: J3420 12/12/2009 ROUTINE VENIPUNCTURE CPT-4: 14300 12/12/2009 ASSAY OF BLOOD/URIC ACID CPT-4: 93435 12/12/2009 THER/PROPH/DIAG INJ SC/IM CPT-4: 92318 10/30/2009 VITAMIN B12 INJECTION CPT-4: J3420 10/30/2009 THER/PROPH/DIAG INJ SC/IM CPT-4: 29064 10/01/2009 VITAMIN B12 INJECTION CPT-4: J3420 10/01/2009 THER/PROPH/DIAG INJ SC/IM CPT-4: 28036 10/01/2009 CEFTRIAXONE SODIUM INJECTION CPT-4: J0696 10/01/2009 Vital Signs Date Vital 10/22/2020 Blood Pressure 1: 140/76 Code: 8480-6 Heart Rate 1: 71 bpm Respiratory Rate: 17 bpm SpO2: 98% Temperature: 36.3 (C) / 97.3 (F) We ight: 149 lbs Code: 59298-3 10/19/2020 Blood Pressure 1: 121/87 Code: 8480-6 Heart Rate 1: 100 bpm Respiratory Rate: 16 bpm SpO2: 96% Temperature: 36.3 (C) / 97.3 (F) We ight: 149 lbs Code: 97185-0 10/01/2020 Blood Pressure 1: 140/84 Code: 8480-6 Heart Rate 1: 100 bpm Respiratory Rate: 18 bpm SpO2: 96% Temperature: 36.6 (C) / 97.9 (F) We ight: 147 lbs Code: 50597-8 09/24/2020 Blood Pressure 1: 112/70 Code: 8480-6 [...] 98.1 (F) We ight: 152 lbs Code: 94543-2 09/12/2020 Blood Pressure 1: 133/70 Code: 8480-6 Heart Rate 1: 100 bpm Respiratory Rate: 16 bpm SpO2: 100% Temperature: 36.5 (C) / 97.7 (F) We ight: 152 lbs Code: 79971-1 04/18/2020 Blood Pressure 1: 144/78 Code: 8480-6 Heart Rate 1: 80 bpm Respiratory Rate: 16 bpm SpO2: 98% Temperature: 36.4 (C) / 97.5 (F) We ight: 160 lbs Code: 84735-6 10/12/2019 Blood Pressure 1: 124/78 Code: 8480-6 BMI: 24.8 Code: 64887-8 Heart Rate 1: 76 bpm Height: 5'8" Code: 8302-2 Respiratory Rate: 20 bpm SpO2: 98% Temperature: 36.6 (C) / 97.9 (F) Weight: 163 lbs Code: 59350-4 04/25/2019 Blood Pressure 1: 140/86 Code: 8480-6 BMI: 24.3 Code: 57975-4 Heart Rate 1: 92 bpm Height: 5'8" Code: 8302-2 Respiratory Rate: 20 bpm SpO2: 98% Temperature: 36.8 (C) / 98.3 (F) Weight: 160 lbs Code: 96560-3 04/12/2019 Blood Pressure 1: 146/86 Code: 8480-6 BMI: 25.4 Code: 44179-5 Heart Rate 1: 88 bpm Height: 5'8" Code: 8302-2 Respiratory Rate: 20 bpm SpO2: 98% Temperature: 36.5 (C) / 97.7 (F) Weight: 167 lbs Code: 94877-5 02/17/2018 Blood Pressure 1: 114/62 Code: 8480-6 Bl ood Pressure 2: 116/70 Code: 8480-6 BMI: 24.9 Code: 14348-3 Heart Rate 1: 76 bpm Height: 5'8" Code: 8302-2 Respiratory Rate: 20 bpm SpO2: 97% Temperature: 36.7 (C) / 98.0 (F) We ight: 164 lbs Code: 65534-3 04/07/2017 Blood Pressure 1: 122/84 Code: 8480-6 BMI: 24.3 Code: 64796-9 Heart Rate 1: 72 bpm Height: 5'8" Code: 8302-2 Respiratory Rate: 20 bpm SpO2: 96% Temperature: 36.9 (C) / 98.4 (F) Weight: 160 lbs Code: 80842-5 09/19/2016 Blood Pressure 1: 124/76 Code: 8480-6 BMI: 24.6 Code: 35046-4 Heart Rate 1: 68 bpm Height: 5'8" Code: 8302-2 Respiratory Rate: 20 bpm SpO2: 96% Temperature: 36.6 (C) / 97.9 (F) Weight: 162 lbs Code: 29542-8 12/18/2015 Blood Pressure 1: 136/70 Code: 8480-6 BMI: 24.3 Code: 49504-6 Heart Rate 1: 84 bpm Height: 5'8" Code: 8302-2 Respiratory Rate: 20 bpm Temperatu re: 36.5 (C) / 97.7 (F) Weight: 160 lbs Code: 34748-5 07/20/2015 Blood Pressure 1: 140/84 Code: 8480-6 BMI: 24.9 Code: 24790-7 Heart Rate 1: 76 bpm Height: 5'8" Code: 8302-2 Respiratory Rate: 20 bpm Temperatu re: 36.6 (C) / 97.9 (F) Weight: 164 lbs Code: 13832-4 02/07/2015 Blood Pressure 1: 164/82 Code: 8480-6 BMI: 25.5 Code: 55224-5 Heart Rate 1: 78 bpm Height: 5'8" Code: 8302-2 Respiratory Rate: 20 bpm Temperatu re: 36.5 (C) / 97.7 (F) Weight: 168 lbs Code: 45280-2 07/19/2014 Blood Pressure 1: 136/94 Code: 8480-6 BMI: 24.8 Code: 96621-3 Heart Rate 1: 88 bpm Height: 5'8" Code: 8302-2 Respiratory Rate: 20 bpm Temperatu re: 36.8 (C) / 98.2 (F) Weight: 163 lbs Code: 50404-8 07/06/2014 Blood Pressure 1: 136/92 Code: 8480-6 BMI: 24.2 Code: 88402-0 Heart Rate 1: 88 bpm Height: 5'8" Code: 8302-2 Respiratory Rate: 20 bpm Temperatu re: 36.9 (C) / 98.4 (F) Weight: 159 lbs Code: 31547-5 07/04/2014 Blood Pressure 1: 116/84 Code: 8480-6 Bl ood Pressure 2: 108/82 Code: 8480-6 Heart Rate 1: 88 bpm Respiratory Rate: 20 bpm Temperature: 3 6.7 (C) / 98.0 (F) Weight: 159 lbs Code: 02470-4 06/14/2014 Blood Pressure 1: 132/90 Code: 8480-6 BMI: 24.6 Code: 41102-0 Heart Rate 1: 100 bpm Height: 5'8" Code: 8302-2 Respiratory Rate: 20 bpm Temperatu re: 37.2 (C) / 99.0 (F) Weight: 162 lbs Code: 70190-6 03/09/2014 Blood Pressure 1: 122/62 Code: 8480-6 BMI: 25.4 Code: 06827-4 Heart Rate 1: 84 bpm Height: 5'8" Code: 8302-2 Respiratory Rate: 20 bpm Temperatu re: 36.6 (C) / 97.8 (F) Weight: 167 lbs Code: 21309-4 01/05/2014 Blood Pressure 1: 124/82 Code: 8480-6 BMI: 25.4 Code: 17857-6 Heart Rate 1: 84 bpm Height: 5'8" Code: 8302-2 Respiratory Rate: 20 bpm Temperatu re: 36.7 (C) / 98.0 (F) Weight: 167 lbs Code: 26002-9 11/09/2013 Blood Pressure 1: 138/82 Code: 8480-6 BMI: 24.5 Code: 07592-5 Heart Rate 1: 84 bpm Height: 5'8" Code: 8302-2 Respiratory Rate: 20 bpm Temperatu re: 37.1 (C) / 98.8 (F) Weight: 161 lbs Code: 87431-0 11/24/2012 Blood Pressure 1: 122/72 Code: 8480-6 BMI: 24.0 Code: 00900-4 Heart Rate 1: 66 bpm Height: 5'8" Code: 8302-2 Respiratory Rate: 20 bpm Temperatu re: 36.5 (C) / 97.7 (F) Weight: 158 lbs Code: 27107-0 11/03/2012 Blood Pressure 1: 130/84 Code: 8480-6 BMI: 23.7 Code: 19440-7 Heart Rate 1: 72 bpm Height: 5'8" Code: 8302-2 Respiratory Rate: 20 bpm Temperatu re: 36.2 (C) / 97.1 (F) Weight: 156 lbs Code: 91416-5 02/25/2012 Blood Pressure 1: 142/84 Code: 8480-6 BMI: 25.1 Code: 85165-4 Heart Rate 1: 68 bpm Height: 5'8" Code: 8302-2 Temperature: 37.2 (C) / 99.0 (F) Weight: 165 lbs Code: 69747-0 10/08/2011 Blood Pressure 1: 126/80 Code: 8480-6 BMI: 24.3 Code: 97005-8 Heart Rate 1: 84 bpm Height: 5'8" Code: 8302-2 Respiratory Rate: 20 bpm Temperatu re: 36.8 (C) / 98.2 (F) Weight: 160 lbs Code: 65999-7 09/24/2011 Blood Pressure 1: 136/80 Code: 8480-6 BMI: 24.3 Code: 99037-4 Heart Rate 1: 84 bpm Height: 5'8" Code: 8302-2 Respiratory Rate: 20 bpm Temperatu re: 36.8 (C) / 98.2 (F) Weight: 160 lbs Code: 63389-3 09/17/2011 Blood Pressure 1: 128/84 Cod e: 8480-6 09/09/2011 Blood Pressure 1: 142/84 Code: 8480-6 BMI: 24.3 Code: 15649-2 Height: 5'8" Code: 8302-2 Temperature: 36.7 (C) / 98.0 (F) Weight: 160 lbs Code : 01189-6 08/29/2010 Blood Pressure 1: 144/84 Code: 8480-6 Heart Rate 1: 72 bpm Temperature: 36.8 (C) / 98.2 (F) Weight: 156 lbs Code: 69095-9 12/12/2009 Blood Pressure 1: 146/88 Code: 8480-6 Heart Rate 1: 76 bpm Temperature: 36.6 (C) / 97.9 (F) Weight: 152 lbs Code: 92280-0 10/30/2009 Blood Pressure 1: 132/70 Code: 8480-6 Heart Rate 1: 80 bpm Temperature: 36.9 (C) / 98.4 (F) Weight: 151 lbs Code: 33285-6 10/01/2009 Blood Pressure 1: 142/86 Code: 8480-6 BMI: 23.0 Code: 67352-8 Heart Rate 1: 84 bpm Height: 5'8" Code: 8302-2 Temperature: 36.9 (C) / 98.4 (F) Weight: 151 lbs Code: 43586-0 Functional Status No Functional Status data Reason [...] follow up 04/25/2019 follow up 04/12/2019 from [facility] well man exam (40-65 years) [...] 10/01/2009 establishing vis it, being treated for [place] Spotted Fever Encounters Encounter Performer Location Codes Date ([id number]) OFFICE/OUTPATIENT VISIT EST Diagnosis: Mass of left lung[ICD10: R91.8] Diagnosis: Supraclavicular adenopathy[ICD10: R59.0] Diagnosis: On anticoagulant therapy[ICD10: Z79.01] Diagnosis: Other acute pulmonary embolism without acute cor pulmonale[ICD10: I26.99] Diagnosis: Lymphadenopathy[ICD10: R59.1] Diagnosis: Thrombocytopenia[ICD10: D69.6] Diagnosis: Pericardial effusion[ICD10: I31.3] Estephanie [facility] CPT-4: 77977 10/22/2020 ([id number]) OFFICE/OUTPATIENT VISIT EST Diagnosis: Supraclavicular adenopathy[ICD10: R59.0] Diagnosis: Difficulty swallowing[ICD10: R13.10] [facility]: 17119 10/19/2020 ([id number]) OFFICE/OUTPATIENT VISIT EST Diagnosis: On anticoagulant therapy[ICD10: Z79.01] Diagnosis: Acute deep vein thrombosis (DVT) of femoral vein of right lower extremity[ICD10: I82.411] Estephanie [facility] CPT-4 : 21550 10/01/2020 ([id number]) OFFICE/OUTPATIENT VISIT EST Diagnosis: Right leg DVT[ICD10: I82.401] Tracie Keyes TRACIE [facility] CPT-[facility]: 01548 09/24/2020 ([id number]) OFFICE/OUTPATIENT VISIT EST Diagnosis: Acute deep vein thrombosis (DVT) of femoral vein of right lower extremity[ICD10: I82.411] Diagnosis: On anticoagulant therapy[ICD10: Z79.01] Estephanie CARPENTERKAMALJIT Lee [facility] CPT-4: 75777 09/17/2020 ([id number]) OFFICE/OUTPATIENT VISIT EST Diagnosis: Acute deep vein thrombosis (DVT) of femoral vein of right lower extremity[ICD10: I82.411] Estephanie [facility] CPT-4 : 12270 09/14/2020 ([id number]) OFFICE/OUTPATIENT VISIT EST Diagnosis: Fall down stairs, initial encounter[ICD10: W10.8XXA] Diagnosis: Right leg swelling[ICD10: M79.89] Diagnosis: Right leg pain[ICD10: M79.604] Estephanie Mcguirewillam TRACIE Elvin 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] Diagnosis: Dysphagia[ICD10: R13.10] Tracie CHANG [employer] CPT-4: 15212 04/12/2019 ([id number]) PER PM REEVAL EST PAT 65+ YR Diagnosis: Encounter for general adult medical examination without abnormal findings[ICD10: Z00.00] Diagnosis: Essential (primary) hypertension[ICD10: I10] Diagnosis: Hyperglycemia, unspecified[ICD10: R73.9] Tracie KEYES [employer] CPT-4: 64884 02/17/2018 ([id number]) NURSE/OUTPATIENT VISIT EST Diagnosis: Essential (primary) hypertension[ICD10: I10] Diagnosis: Mixed hyperlipidemia[ICD10: E78.2] Diagnosis: Hyperglycemia, unspecified[ICD10: R73.9] Diagnosis: Encounter for screening for other viral diseases[ICD10: Z11.59] Tracie KEYES [employer] CPT-4: 90094 01/29/2018 ([id number]) OFFICE/OUTPATIENT VISIT EST Diagnosis: Encounter for general adult medical examination without abnormal findings[ICD10: Z00.00] Diagnosis: Mixed hyperlipidemia[ICD10: E78.2] Diagnosis: Essential (primary) hypertension[ICD10: I10] Diagnosis: Impaired fasting glucose[ICD10: R73.01] Diagnosis: Encounter for screening for malignant neoplasm of prostate[ICD10: Z12.5] Tracie KEYES DO [facility] CPT-4: 74710 05/01/2017 ([id number]) OFFICE/OUTPATIENT VISIT EST Diagnosis: URI, ACUTE[ICD10: J06.9] Tracie DURANLINE Lee ZHOU [facility] CPT-4: 31909 04/07/2017 OFFICE/OUTPATIENT VISIT EST Diagnosis: Essential (primary) hypertension[ICD10: I10] Ashley Den TRACIE KEYES DO [facility] CPT-4: 26614 09/19/2016 ([id number]) OFFICE/OUTPATIENT VISIT EST Diagnosis: Encounter for general adult medical examination without abnormal findings[ICD10: Z00.00] Diagnosis: Essential (primary) hypertension[ICD10: I10] Diagnosis: Impaired fasting glucose[ICD10: R73.01] Tracie Nikhilkaren JEISON KEYES DO [facility] CPT-4: 51917 01/04/2016 ([id number]) OFFICE/OUTPATIENT VISIT EST Diagnosis: Essential (primary) hypertension[ICD10: I10] Diagnosis: Mixed hyperlipidemia[ICD10: E78.2] Diagnosis: Impaired fasting glucose[ICD10: R73.01] Tracie Tejedarhiannanorman KEYES DO [facility] CPT-4: 99026 12/18/2015 ([id number]) PREV VISIT EST AGE 40-64 Diagnosis: Encounter for general adult medical examination without abnormal findings[ICD10: Z00.00] Diagnosis: Essential (primary) hypertension[ICD10: I10] Ashleydarron Crenshaw TRACIE Lee KEYES [facility] CPT-4: 61485 07/20/2015 OFFICE/OUTPATIENT VISIT EST Diagnosis: Mixed hyperlipidemia[ICD10: E78.2] Diagnosis: Impaired fasting glucose[ICD10: R73.01] Diagnosis: Insomnia, unspecified[ICD10: G47.00] Jacque Lopez ROGER KAMALJIT Lee KEYES DO [facility] CPT-4: 75369 02/07/2015 ([id number]) OFFICE/OUTPATIENT VISIT EST Diagnosis: Encounter for general adult medical examination without abnormal findings[ICD10: Z00.00] Diagnosis: Essential (primary) hypertension[ICD10: I10] Diagnosis: Mixed hyperlipidemia[ICD10: E78.2] Tracie KINSEY KIMBERLEE Lee TEJEDANDNORMAN SPRINGER [facility] CPT-4: 64348 02/02/2015 ([id number]) OFFICE/OUTPATIENT VISIT EST Diagnosis: SINUSITIS, ACUTE[ICD9: 461.9] Jacquesa Jessica KEYES DO [facility] CPT-4: 49145 07/19/2014 ([id number]) OFFICE/OUTPATIENT VISIT EST Diagnosis: Hypotension[ICD9: 458.9] Diagnosis: DYSPEPSIA[ICD9: 536.8] Diagnosis: HYPERTENSION[ICD9: 401.9] Tracie GALEANO DO [facility] CPT-4: 68930 07/06/2014 ([id number]) OFFICE/OUTPATIENT VISIT EST Diagnosis: DIZZINESS/VERTIGO[ICD9: 780.4] Diagnosis: HYPOTENSION[ICD9: 458.9] Diagnosis: MALAISE AND FATIGUE[ICD9: 780.79] Tracie Nikhilkaren EM Lidia KEYES DO [facility] CPT-4: 45917 07/04/2014 ([id number]) OFFICE/OUTPATIENT VISIT EST Diagnosis: ARTHRALGIA-MULTIPLE SITES[ICD9: 719.49] Diagnosis: CEPHALGIA[ICD9: 784.0] Diagnosis: Uveitis[ICD9: 364.3] Tracie KEYES DO [facility] CPT-4: 32258 06/14/2014 ([id number]) OFFICE/OUTPATIENT VISIT EST Diagnosis: HYPERTENSION[ICD9: 401.9] Diagnosis: OTHER ABNORMAL GLUCOSE[ICD9: 790.29] Tracie Nikhilkaren ROGER KAMALJIT Lee [facility]ENER [facility] CPT-4: 59650 03/09/2014 ([id number]) OFFICE/OUTPATIENT VISIT EST Diagnosis: OTHER ABNORMAL GLUCOSE[ICD9: 790.29] Tracie Nikhilkaren MARI Lee TEJEDANDER [facility] CPT-4: 76004 01/05/2014 ([id number]) OFFICE/OUTPATIENT VISIT EST Diagnosis: ROUTINE MEDICAL EXAM[ICD9: V70.0] Tracie Nikhilkaren Murillo Lee TEJEDANDNORMAN SPRINGER [facility] CPT-4: 77620 11/18/2013 ([id number]) PREV VISIT EST AGE 40-64 Diagnosis: ROUTINE MEDICAL EXAM[ICD9: V70.0] Diagnosis: HYPERLIPIDEMIA NEC/NOS[ICD9: 272.4] Diagnosis: FOREIGN BODY FINGER[ICD9: 915.6] Tracie [facility] CPT-4: 95752 11/09/2013 ([id number]) OFFICE/OUTPATIENT VISIT EST Diagnosis: CERVICALGIA[ICD9: 723.1] Diagnosis: B12 DEFIC ANEMIA NEC[ICD9: 281.1] Diagnosis: DISTURBANCE OF SKIN SENSATION (Paresthesia)[ICD9: 782.0] [facility] CPT-[facility]: 43820 11/24/2012 OFFICE/OUTPATIENT VISIT EST Diagnosis: Neck pain on left side[ICD9: 723.1] Diagnosis: Tendonitis of elbow, left[ICD9: 727.09] Jacque Jessica TRACIE Howard [facility] CPT-4: 36156 11/03/2012 OFFICE/OUTPATIENT VISIT EST Diagnosis: Oral lesion[ICD9: 528.9] Diagnosis: Herpes zoster[ICD9: 053.9] Diagnosis: FEBRILE ILLNESS[ICD9: 780.60] Liz Randall [facility]IE [facility] CPT-4: 64906 02/25/2012 OFFICE/OUTPATIENT VISIT EST Diagnosis: MALAISE AND FATIGUE[ICD9: 780.79] Diagnosis: B12 DEFIC ANEMIA NEC[ICD9: 281.1] Diagnosis: SPOTTED FEVERS[ICD9: 082.0] Diagnosis: SPASM OF MUSCLE[ICD9: 728.85] Tracie Stephy DURANLINE Lee [facility] CPT-4: 76507 10/08/2011 ([id number]) OFFICE/OUTPATIENT VISIT EST Diagnosis: MALAISE AND FATIGUE[ICD9: 780.79] Diagnosis: SPOTTED FEVERS[ICD9: 082.0] Diagnosis: B12 DEFIC ANEMIA NEC[ICD9: 281.1] Tracie Stephy EM Murillo Lee [facility] CPT-4: 33000 09/24/2011 ([id number]) OFFICE/OUTPATIENT VISIT EST Diagnosis: B12 DEFIC ANEMIA NEC[ICD9: 281.1] Diagnosis: HYPERTENSION[ICD9: 401.9] Diagnosis: MALAISE AND FATIGUE[ICD9: 780.79] Diagnosis: OTHER ABNORMAL GLUCOSE[ICD9: 790.29] Tracie KEYES DO [employer] CPT-4: 93534 09/17/2011 OFFICE/OUTPATIENT VISIT EST Diagnosis: NONVENOM ARTHROPOD BITE[ICD9: E906.4] Diagnosis: HYPERTENSION[ICD9: 401.9] Tracie TEJEDA NDER DO [facility] CPT-4: 51756 09/09/2011 PREV VISIT EST AGE 40-64 Tracie WELCH R DO [facility] CPT-4: 38289 08/29/2010 ([id number]) OFFICE/OUTPATIENT VISIT, EST Tracie KEYES DO [employer] CPT-4: 81055 12/12/2009 ([id number]) OFFICE/OUTPATIENT VISIT, EST Tracie KEYES DO [facility] CPT-4: 37180 10/30/2009 ([id number]) OFFICE/OUTPATIENT VISIT, NEW Tracie OBRIENER DO [employer] CPT-4: 19332 10/01/2009 Plan of Care Planned Activity Notes [...] neck chest with contrast and labs at [facility] ICD-9 : 785.6 ICD-10 : R59.0 10/19/2020 Appointment: [facility] [phone] [facility] [facility] 10/19/2020 Patient Education: Patient Medication [...] 10/01/2020 Appointment: [facility]stephanie [facility] [phone] [facility] [place] FOLLOW UP 10/01/2020 Patient Education: Patient Medication Summary Completed 10/01/2020 Visit Diagnosis Plan: Right leg DVT Discussion: Contin ue eliquis at 5mg po BID Recheck 1 week Discussed repeating US of RLE at 3mos and staying on eliquis until then Discussed clotting studies after off eliquis for 1month in future ICD-9 : 453.40 ICD-10 : I82.401 09/24/2020 Appointment: Tracie Keyes WPtel: [phone] [facility] US FOLLOW UP 09/24/2020 Visit Diagnosis Plan: [...] extremity Discussion: Swelling decreasing. F/U 1 [address] [place] for recheck. ICD-9 : 453.41 ICD-10 : I82.411 09/17/2020 Appointment: Estephanie Zaidi WPtel: [phone] [facility] US FOLLOW UP 09/17/2020 Patient Education: Patient Medication Summary Completed 09/17/2020 Patient Education: Eliquis- [employer] Coupon [id number] https://www.[employer]ediact[employer]/sampleAmara [employer]/resources/getResource/61/[email or web address] Completed 09/17/2020 Patient Education: tramadol- [employer] Coupon [id number] https://www.[employer]ediact[employer]/samplemd/resources/getResource/61/[email or web address] Completed 09/17/2020 Visit Diagnosis Plan: Acute deep [...] 09/14/2020 Appointment: Estephanie Zaidi WPtel: [phone] [facility] US FOLLOW UP 09/14/2020 Patient Education: Patient Medication Summary Completed 09/14/2020 Visit Diagnosis Plan: Right leg swelling Discussion: W ill send to [facility] for stat doppler to r/o DVT d/t swelling and pain and f/u with results. ICD-9 : 729.81 ICD-10 : M79.89 09/12/2020 Appointment: Estephanie Zaidi WPtel: [phone] [facility] ACUTE ILLNESS 09/12/2020 Patient Education: Patient Medication [...] R73.9 04/18/2020 Appointment: Tracie Keyes WPtel: [phone] [facility] US FOLLOW UP 04/18/2020 Patient Education: lisinopril- [employer] Coupon [id number] https://www.[employer]/samplemd/resources/getResource/61/[email or web address] Completed 04/18/2020 Visit Diagnosis Plan: Essential (primary) hypertension Discussion: Stable on lisinopril ICD-9 : 401.9 ICD-10 : I10 10/12/2019 Visit Diagnosis Plan: Encounter for [facility] adult medical examination without abnormal findings Discussion: Mediterranean diet Combinati on of cardio and weight bearing exercise Will return for fasting lab next week ICD-9 : V70.0 ICD-10 : Z00.00 10/12/2019 Visit Diagnosis Plan: Hyperglycemia, unspecified Discu ssion: Will return for HbA1C next week ICD-9 : 790.29 ICD-10 : R73.9 10/12/2019 Appointment: Tracie Keyes WPtel: [address] [place] [address] INSIDE Annual Well Visit 10/12/2019 Appointment: Viridiana Lima [address] FOLLOW UP 05/16/2019 Visit Diagnosis Plan: [...] Appointment: Tracie Keyes WPtel: [facility] [phone] Hospital Follow Up 04/25/2019 Patient Education: nystatin- [employer] Coupon [id number] https://www.[employer]tho[employer]ediactrics/samplemd/resources/getResource/61/[email or web address] Completed 04/25/2019 Visit Diagnosis Plan: Submandibular gland [...] ICD-10 : K11.1 04/12/2019 Appointment: Tracie Keyestel: [address] [place] [address] 04/12/2019 Appointment: Tracie Keyestel: [address] [place] [address] LM CANCELED 08/09/2018 Visit Diagnosis Plan: Essential (primary) hypertension Discussion: Stable ICD-9 : 401.9 ICD-10 : I10 02/17/2018 Visit Diagnosis Plan: Encounter for [facility] adult medical examination without abnormal findings Discussion: Lab discussed Refuses prosta te check Refuses colonoscopy Will check with pharmacy on Shingrix/Flu shot and Prevnar ICD-9 : V70.0 ICD-10 : Z00.00 02/17/2018 Visit Diagnosis Plan: Hyperglycemia, unspecified Discu ssion: Wants to focus on diet/exercise and recheck in 6mos ICD-9 : 790.29 ICD-10 : R73.9 02/17/2018 Appointment: Tracie Keyestel: [address] [place] [address] Annual Well Visit 02/17/2018 Appointment: Tracie Keyestel: [address] [place] [address] US LAB 01/29/2018 Appointment: Tracie Kyeestel: [address] [place], [place] [address] [place] LAB 05/01/2017 Patient Education: Patient Medication [...] Rest, Fluids... 04/07/2017 Appointment: Tracie Keyes WPtel: [address] [place], [place] [phone] ACUTE ILLNESS 04/07/2017 Patient Education: Patient Medication Summary Completed 04/07/2017 Visit Plan: Had meds refilled for 6 joseph hs the other day. RTC 6 months Described s/s of heart disease that he would need to report for to us or ER/UC. 09/19/2016 Appointment: Ashley Crenshaw WPtel: [address] [place], [place] [phone] [place] 09/18 lm`sl FOLLOW UP 09/19/2016 Patient Education: Patient Medication Summary Completed 09/19/2016 Appointment: Tracie Keyes WPtel: [address] [place] [address] [place] LAB 01/04/2016 Patient Education: Patient Medication Summary Completed 01/04/2016 Visit Plan: Will get flu shot at work Up date fasting lab 12/18/2015 Appointment: Tracie Keyes WPtel: [address] [place], [place] [phone] US 12/16 lm~sl FOLLOW UP 12/18/2015 Patient Education: Patient Medication Summary Completed 12/18/2015 Visit Plan: Pt declined rectal/prostate exam. Encouraged to get colonoscopy Plan labs for fall 2015 Continue on current meds but send in home B/P since today's B/P is elevated to see if dosage change is indicated. RTC in 6 months 07/20/2015 Appointment: Debbie Crenshawcy WPtel: [phone] [place], [place] [phone] 07/18 lm ~sl Annual Well Visit 07/20/2015 Patient Education: Patient Medication Summary Completed 07/20/2015 Visit Plan: Resume BP med Resume Metform in( has been off > 9 months) Add HgbA1C to labs drawn last week, Trial of Selinor for sleep. Will let us know how he does with it. 02/07/2015 Appointment: Jacque Lopez WPtel: [phone] [place], [place] [phone] 02/06/15 cn....appt confirmed cn FOLLOW UP 02/07/2015 Patient Education: Patient Medication Summary Completed 02/07/2015 Patient Education: [facility] - [employer] - Lisinopril - 18-64 - Dynamic Portal ID Completed 02/07/2015 Appointment: Tracie Keyes WPtel: [address] [place] [address] LAB 02/02/2015 Patient Education: Patient Medication Summary Completed 02/02/2015 Appointment: Jacque Lopez WPtel: [address] [place], [place] [phone] ACUTE ILLNESS 07/19/2014 Patient Education: Patient Medication Summary Completed 07/19/2014 Visit Plan: Restart Diltiazem Continue t o hydrate Call in 3 days on how doing 07/06/2014 Appointment: Tracie Keyes WPtel: [address] [place], [place] [phone] [place] 07/05 appt confirmed cn FOLLOW UP 07/07/19 Patient Education: Patient Medication Summary Completed 07/06/2014 Visit Plan: Hold lisinopril hct Hydrate Recheck 2 days Meclizine 25mg q HS Hold metformin Call in AM 07/04/2014 Appointment: Tracie Keyes WPtel: [address] [place], [place] [phone] US FOLLOW UP 07/04/2014 Patient Education: Patient Medication Summary Completed 07/04/2014 Appointment: Tracie Keyes WPtel: [address] [place] [address] ACUTE ILLNESS 06/14/2014 Patient Education: Patient Medication Summary Completed 06/14/2014 Appointment: Tracie Keyes WPtel: [address] [place] [address] FOLLOW UP 03/09/2014 Patient Education: Patient Medication Summary Completed 03/09/2014 Visit Plan: Continue metformin at curren t dose Accuchecks daily alternating times Diabetic diet info given Check CMP with HbA1C in 2mos then fwup 01/05/2014 Appointment: Tracie Keyes WPtel: [address] [place] [address] FOLLOW UP 01/05/2014 Patient Education: Patient Medication Summary Completed 01/05/2014 Visit Plan: Did not need lab so will jus t fwup as scheduled 01/03/2014 Appointment: Tracie Keyes WPtel: [address] [place] [address] LAB 01/03/2014 Patient Education: Patient Medication Summary Completed 01/03/2014 Appointment: Tracie Keyestel: [address] [place] [address] LAB 11/18/2013 Patient Education: Patient Medication Summary Completed 11/18/2013 Visit Plan: Continue current meds Remova l of splinter as above Keflex for 1 week Continue current meds Fwup next week for fasting lab including PSA 11/09/2013 Appointment: Tracie Keyestel: [address] [place] [address] 11/08 Annual Well Visit 11/09/2013 Patient Education: Patient Medication Summary Completed 11/09/2013 Patient Education: [facility] - Saving AutoInj - Lisinopril - 18+ - Dynamic Portal ID Completed 11/09/2013 Appointment: Tracie Keyes WPtel: [address] [place], [place] [id number] 11/23 left [facility] FOLLOW UP 11/24/2012 Patient Education: Patient Medication Summary Completed 11/24/2012 Appointment: SaleemGil Jacque Trivedi WPtel: [address] [place], [place] [id number] FOLLOW UP 11/10/2012 Appointment: Jessica Jacque Trivedi WPtel: [address] [place], [place] [phone] ACUTE ILLNESS 11/03/2012 Patient Education: Patient Medication Summary Completed 11/03/2012 Appointment: Liz Randall WPtel: [address] [place], [place] [phone] ACUTE ILLNESS 02/25/2012 Patient Education: Patient Medication Summary Completed 02/25/2012 Visit Plan: Finish abx Continue B12 OMT done Add Skelaxin 800mg q HS 10/08/2011 Appointment: Tracie Keyes WPtel: [address] [place], [place] [phone] [facility] FOLLOW UP 10/08/2011 Patient Education: Patient Medication Summary Completed 10/08/2011 Appointment: Tracie Keyes WPtel: [address] [place], [place] [phone] FOLLOW UP 09/24/2011 Patient Education: Patient Medication Summary Completed 09/24/2011 Appointment: Tracie Keyes WPtel: [address] [place], [place] [phone] LAB 09/17/2011 Patient Education: Patient Medication Summary [...] labs. 09/09/2011 Appointment: Liz Randall WPtel: [address] [place], [place] [phone] ACUTE ILLNESS 09/09/2011 Patient Education: Patient Medication Summary Completed 09/09/2011 Visit Plan: Change lisinopril hct to 20/ 12.5mg 2 daily and continue cardizem Check fasting lab--drawn today 08/29/2010 Appointment: Tracie Keyes WPtel: [address] [place], [place] [phone] FOLLOW UP 08/29/2010 Patient Education: Patient Medication Summary Completed 08/29/2010 Appointment: Tracie Keyes WPtel: [address] [place], [place] [phone] FOLLOW UP 12/12/2009 Patient Education: Patient Medication Summary Completed 12/12/2009 Appointment: Tracie Keyes WPtel: [address] [place], [place] [phone] FOLLOW UP 11/27/2009 Visit Plan: Finish Abx B12 given Start d aily 1000mcg B12 Cont allopurinol and check B12 and uric acid in 1mo. 10/30/2009 Appointment: Tracie Keyes WPtel: [address] [place] [address] FOLLOW UP 10/30/2009 Patient Education: Patient Medication Summary Completed 10/30/2009 Appointment: Tracie Keyes WPtel: [address] [place], [place] [phone] NEW PATIENT 10/01/2009 Patient Education: Patient Medication Summary Completed 10/01/2009 Referral: aSv Olivo WPtel: [address] [place], [place] [phone] Referral Initiated Instructions Comment . Discussed [...]
--- OUTSIDE RECORDS SUMMARY | 2020-11-05 09:35 | XMS REPORT | CCD ---
Author Author Jsoh Keyes D.O. Organization [facility] Address [address] [place] [address] Phone Care Team Providers Care Coater Name Role Phone Tracie Keyes D.O., PP Unavailable CCM Unavailable Summary Purpose Interface Exchange Insurance Providers Payer name Policy type / Coverage type Covered democrat ID Effective Begin Date Effective End Date WPS MEDICARE PART B [place] Medicare Part B [id number] Unknown [facility] Medicare Part B [id number] 2019 Un known Family history Sister Diagnosis Age At Onset seizure disorder Unknown Father Diagnosis Age At Onset Diabetes mellitus Type 2 Unknown Mother Diagnosis Age At Onset Diabetes mellitus Type 2 Unknown Social History Social History Element Codes Description Effective Dates Tobacco history SNOMED CT: 50565688 Currently smokes tobacco Marital status Unknown 10/01/2009 [...] E906.4 09/09/2011 Active Hypertension Unknown 10/01/2009 Active [place] spotted fever Unknown 07/24/2009 Act [place] B12 DEFIC ANEMIA NEC ICD-9: 281.1 10/01/2009 Active Hyperuricemia ICD-9: 790.6 10/01/2009 Active Myalgia ICD-9: 729.1 10/01/2009 Active [place] spotted fever ICD-9: 082.0 10/01/2009 Act [place] Medications Medication Codes Instructions Start Date Stop Date Status Fill Instructions Eliquis 5 mg tablet RxNorm: 8366193 Take 1 Tablet(s) Oral two ti mes a day 09/19/2020 12/17/2020 Active tramadol 50 mg tablet RxNorm: 934004 Take 1 Tablet(s) O ral Q8H as needed for pain Take with 2 tylenol 09/17/2020 No Stop Date Active Eliquis 5 mg tablet RxNorm: 7860876 Take 2 Tablet(s) Oral two ti mes a day 09/17/2020 No Stop Date Active lisinopril 40 mg tablet RxNorm: 747842 1 Tablet(s) Oral QD repl aces 20mg dose 04/18/2020 10/15/2020 Inactive Men's Multivitamin 400 mcg-20 mcg-300 mcg tablet RxNorm: 1 Tablet(s) Oral QD 04/18/2020 No Stop Date Active lisinopril 20 mg tablet RxNorm: 617768 1 Tablet(s) Oral QD 03/29/19 21 04/17/2020 Inactive Due for his 6 month appointm ent lisinopril 20 mg tablet RxNorm: 489698 TAKE ONE (1) TAB LET BY MOUTH DAILY... Needs fwup 10/03/2019 11/02/2019 Inactive lisinopril 20 mg tablet RxNorm: 423096 TAKE ONE (1) TABLET BY M OUTH DAILY... 10/03/2019 10/02/2019 Inactive Zithromax 500 mg tablet RxNorm: 418032 1 Tablet(s) Oral QD 04/25/19 20 05/02/2019 Inactive [AttnRPh: Saving apply/adjud icate RxGRP:SG20 RxBIN:[id number] RxPCN: ID#:[id number]] lisinopril 20 mg tablet RxNorm: 396846 1 Tablet(s) Oral QD 04/25/19 20 10/02/2019 Inactive nystatin 100,000 unit/mL oral suspension RxNorm: 301526 5 Milliliter(s) Oral four times a day swish, gargle and spit 04/25/2019 05/09/2019 Inactive diltiazem ER (XR/XT) 120 mg capsule,extended release 2 4 hr, controlled RxNorm: 617133 Capsule(s) 1 Capsule(s) PO QD 06/10/2018 10/11/2019 Inactive [SAVINGS FOR UNINSURED PATIENTS -- BIN:832137, PCN: ASPROD1, Group: AME08, ID# [id number], Process claim through [employer], for questions: . THIS IS NOT INSURANCE.] lisinopril 20 mg-hydrochlorothiazide 12.5 mg tablet RxNorm: 305951 1 Tablet(s) PO QAM 06/10/2018 10/11/2019 Inactive [AttnRPh: Saving apply/adjudicate RxGRP:SG20 RxBIN:[id number] RxPCN: ID#:[id number]] lisinopril 20 mg-hydrochlorothiazide 12.5 mg tablet RxNorm: 183834 1 Tablet(s) PO QAM 05/06/2017 01/30/2018 Inactive [AttnRPh: Saving apply/adjudicate RxGRP:SG20 RxBIN:[id number] RxPCN:HT ID#:[id number]] diltiazem ER (XR/XT) 120 mg capsule,extended release 2 4 hr, controlled RxNorm: 910932 Capsule(s) 1 Capsule(s) PO QD 05/06/2017 01/30/2018 Inactive [SAVINGS FOR UNINSURED PATIENTS -- BIN:639448, PCN: ASPROD1, Group: AME08, ID# [id number], Process claim through [employer], for questions: . THIS IS NOT INSURANCE.] diltiazem ER (XR/XT) 120 mg capsule,extended release 2 4 hr, controlled RxNorm: 317040 Capsule(s) 1 Capsule(s) PO QD 09/16/2016 03/14/2017 Inactive [SAVINGS FOR UNINSURED PATIENTS -- BIN:257905, PCN: ASPROD1, Group: AME08, ID# [id number], Process claim through [employer], for questions: . THIS IS NOT INSURANCE.] lisinopril 20 mg-hydrochlorothiazide 12.5 mg tablet RxNorm: 946775 1 Tablet(s) PO QAM 09/16/2016 03/14/2017 Inactive [AttnRPh: Saving apply/adjudicate RxGRP:SG20 RxBIN:[id number] RxPCN: ID#:[id number]] diltiazem ER (XR/XT) 120 mg capsule,extended release,control led RxNorm: 073572 1 Capsule(s) PO QD 04/09/2016 10/11/2019 Inactive [SAVINGS FOR UN INSURED PATIENTS -- BIN:069538, PCN: ASPROD1, Group: AME08, ID# [id number], Process claim through [employer], for questions: . THIS IS NOT INSURANCE.] diltiazem ER (XR/XT) 120 mg capsule,extended release,control led RxNorm: 558560 1 Capsule(s) PO QD 04/09/2016 09/15/2016 Inactive [SAVINGS FOR UN INSURED PATIENTS -- BIN:624952, PCN: ASPROD1, Group: AME08, ID# [id number], Process claim through [employer], for questions: . THIS IS NOT INSURANCE.] lisinopril 20 mg-hydrochlorothiazide 12.5 mg tablet RxNorm: 585200 1 Tablet(s) PO QAM 12/10/2015 06/06/2016 Inactive [AttnRPh: Saving apply/adjudicate RxGRP:SG20 RxBIN:[id number] RxPCN: ID#:[id number]] diltiazem ER (XR/XT) 120 mg capsule,extended release,control led RxNorm: 946943 1 Capsule(s) PO QD 02/07/2015 02/01/2016 Inactive [SAVINGS FOR UN INSURED PATIENTS -- BIN:257761, PCN: ASPROD1, Group: AME08, ID# [id number], Process claim through [employer], for questions: . THIS IS NOT INSURANCE.] lisinopril 20 mg-hydrochlorothiazide 12.5 mg tablet RxNorm: 842190 1 Tablet(s) PO QAM 02/07/2015 12/09/2015 Inactive [AttnRPh: Saving apply/adjudicate RxGRP:SG20 RxBIN:[id number] RxPCN: ID#:[id number]] metformin ER 1,000 mg 24 hr tablet,extended release RxNorm: 792486 1 Tablet(s) PO QD 02/07/2015 07/19/2015 Inactive [SAVINGS FOR UNI NSURED PATIENTS -- BIN:741016, PCN: ASPROD1, Group: AME08, ID# [id number], Process claim through [employer], for questions: . THIS IS NOT INSURANCE.] diltiazem ER (XR/XT) 120 mg capsule,extended release,control led RxNorm: 598474 1 Capsule(s) PO QD 12/28/2014 02/06/2015 Inactive [SAVINGS FOR UN INSURED PATIENTS -- BIN:828774, PCN: ASPROD1, Group: AME08, ID# [id number], Process claim through [employer], for questions: . THIS IS NOT INSURANCE.] lisinopril 20 mg-hydrochlorothiazide 12.5 mg tablet RxNorm: 981793 1 Tablet(s) PO QAM 11/20/2014 10/11/2019 Inactive cefdinir 300 mg capsule RxNorm: 537154 2 Capsule(s) PO QD 07/19/2014 07/28/2014 Inactive [SAVINGS FOR NON-COVERED DRUGS -- BIN: 3585, PCN: ASPROD1, Group: XXXXX, ID# [id number], Questions: . THIS IS NOT INSURANCE.] meclizine 25 mg tablet RxNorm: 174051 1 Tablet(s) PO QHS 07/04/2014 0 10/31/2014 Inactive [SAVINGS FOR NON-COVERED DRUGS -- BIN:00 3585, PCN: ASPROD1, Group: XXXXX, ID# [id number], Questions: . THIS IS NOT INSURANCE.] allopurinol 300 mg tablet RxNorm: 661970 1 Tablet(s) PO QD 06/17/19 15 06/15/2014 Inactive allopurinol 300 mg tablet RxNorm: 010389 1 Tablet(s) PO QD 06/17/19 15 02/06/2015 Inactive [SAVINGS FOR NON-COVERED TATYANA GS -- BIN:574737, PCN: ASPROD1, Group: XXXXX, ID# [id number], Questions: . THIS IS NOT INSURANCE.] naproxen 500 mg tablet RxNorm: 598537 1 Tablet(s) PO BID 06/16/2014 0 07/19/2015 Inactive [SAVINGS FOR NON-COVERED DRUGS -- BIN:00 3585, PCN: ASPROD1, Group: XXXXX, ID# [id number], Questions: . THIS IS NOT INSURANCE.] metformin ER 1,000 mg 24 hr tablet,extended release RxNorm: 955586 1 Tablet(s) PO QD 03/14/2014 02/06/2015 Inactive [SAVINGS FOR UNI NSURED PATIENTS -- BIN:341321, PCN: ASPROD1, Group: AME08, ID# [id number], Process claim through [employer], for questions: . THIS IS NOT INSURANCE.] metformin ER 500 mg tablet,extended release 24hr RxNorm: 860 975 1 Tablet(s) PO QD 01/05/2014 03/13/2014 Inactive [SAVINGS FOR UNI NSURED PATIENTS -- BIN:876798, PCN: ASPROD1, Group: AME08, ID# [id number], Process claim through [employer], for questions: . THIS IS NOT INSURANCE.] metformin ER 500 mg tablet,extended release 24hr RxNorm: 860 975 1 Tablet(s) PO QD 11/28/2013 01/04/2014 Inactive [SAVINGS FOR UNI NSURED PATIENTS -- BIN:695226, PCN: ASPROD1, Group: AME08, ID# [id number], Process claim through [employer], for questions: . THIS IS NOT INSURANCE.] Keflex 500 mg capsule RxNorm: 759387 1 Capsule(s) PO TID 11/09/2013 0 11/15/2013 Inactive [SAVINGS FOR UNINSURED PATIENTS -- BIN:0 83612, PCN: ASPROD1, Group: AME08, ID# [id number], Process claim through [employer], for questions: . THIS IS NOT INSURANCE.] diltiazem ER (XR/XT) 120 mg capsule,extended release,control led RxNorm: 920249 1 Capsule(s) PO QD 11/09/2013 11/03/2014 Inactive [SAVINGS FOR UN INSURED PATIENTS -- BIN:583528, PCN: ASPROD1, Group: AME08, ID# [id number], Process claim through [employer], for questions: . THIS IS NOT INSURANCE.] lisinopril 20 mg-hydrochlorothiazide 12.5 mg tablet RxNorm: 346633 2 Tablet(s) PO QAM 11/09/2013 11/20/2014 Inactive [AttnRPh: Saving apply/adjudicate RxGRP:SG20 RxBIN:[id number] RxPCN: ID#:[id number]] diltiazem ER (XR/XT) 120 mg capsule,extended release,control led RxNorm: 390808 1 Capsule(s) PO QD -need labs 10/31/2013 11/08/2013 Inactive [DELICIA INGS FOR UNINSURED PATIENTS -- BIN:970256, PCN: ASPROD1, Group: AME08, ID# [id number], Process claim through [employer], for questions: . THIS IS NOT INSURANCE.] lisinopril 20 mg-hydrochlorothiazide 12.5 mg tablet RxNorm: 798668 2 Tablet(s) PO QAM 10/31/2013 11/08/2013 Inactive [AttnRPh: Saving apply/adjudicate RxGRP:SG20 RxBIN:[id number] RxPCN: ID#:[id number]] diltiazem ER (XR/XT) 120 mg capsule,extended release,control led RxNorm: 229010 1 Capsule(s) PO QD -need labs 09/12/2013 10/11/2013 Inactive [DELICIA INGS FOR UNINSURED PATIENTS -- BIN:720385, PCN: ASPROD1, Group: AME, ID# [id number], Process claim through [employer], for questions: . THIS IS NOT INSURANCE.] Omnicef 300 mg capsule RxNorm: 248026 2 Capsule(s) PO QD 11/24/2012 0 11/08/2013 Inactive naproxen 500 mg tablet RxNorm: 126091 1 Tablet(s) PO TID 11/04/2012 0 11/03/2012 Inactive allopurinol 100 mg tablet RxNorm: 251383 1 Tablet(s) PO BID 013 11/08/2013 Inactive naproxen 500 mg tablet RxNorm: 371355 1 Tablet(s) PO TID 11/04/2012 0 11/08/2013 Inactive diltiazem ER (XR/XT) 120 mg capsule,extended release,control led RxNorm: 135183 1 Capsule(s) PO QD 08/02/2012 09/12/2013 Inactive lisinopril 20 mg-hydrochlorothiazide 12.5 mg tablet RxNorm: 659724 2 Tablet(s) PO QAM 08/02/2012 07/27/2013 Inactive acyclovir 800 mg tablet RxNorm: 398906 1 Tablet(s) PO D Take 1 tablet by mouth 5 times daily 02/26/2012 11/02/2012 Inactive acyclovir 800 mg tablet RxNorm: 386334 1 Tablet(s) PO D 02/25/2012 Inactive clindamycin 300 mg capsule RxNorm: 041831 1 Capsule(s) PO TID 02/2403/02/2012 Inactive lisinopril-hydrochlorothiazide 20 mg-12.5 mg tablet RxNorm: 920990 2 Tablet(s) PO QAM 01/30/2012 08/01/2012 Inactive diltiazem ER (XR/XT) 120 mg capsule,extended release,control led RxNorm: 234459 1 Capsule(s) PO QD 01/30/2012 08/01/2012 Inactive lisinopril-hydrochlorothiazide 20 mg-12.5 mg tablet RxNorm: 995568 2 Tablet(s) PO QAM 01/30/2012 10/11/2019 Inactive diltiazem ER (XR/XT) 120 mg capsule,extended release,control led RxNorm: 025171 1 Capsule(s) PO QD 01/30/2012 10/11/2019 Inactive Culturelle 10 billion cell capsule RxNorm: 146822 1 Capsule(s) PO Q D 10/16/2011 02/24/2012 Inactive Omnicef 300 mg capsule RxNorm: 876091 2 Capsule(s) PO QD 09/24/2011 0 11/02/2012 Inactive diltiazem ER (XR/XT) 120 mg capsule,extended release,control led RxNorm: 564566 1 Capsule(s) PO QD 09/09/2011 01/29/2012 Inactive Culturelle 10 billion cell Cap RxNorm: 139901 1 Capsule (s) PO BID take a few hours after Doxycycline. Probiotic 09/09/2011 09/28/2011 Inactive lisinopril-hydrochlorothiazide 20 mg-12.5 mg tablet RxNorm: 946577 2 Tablet(s) PO QAM 09/09/2011 01/29/2012 Inactive doxycycline hyclate 100 mg Tab RxNorm: 1882143 1 Tablet( s) PO BID antibiotic. (may make a little sensitive to sunburn) 09/09/2011 09/18/2011 Inactiv e lisinopril-hydrochlorothiazide 20 mg-12.5 mg Tab RxNorm: 197 886 2 Tablet(s) PO QAM Due for yearly check-up 09/08/2011 09/08/2011 Inactive diltiazem ER (XR/XT) 120 mg Continuous Release Cap RxNorm: 8 55946 1 Capsule(s) PO QD Due for yearly check-up. 09/08/2011 09/08/2011 Inactive diltiazem ER (XR/XT) 120 mg Continuous Release Cap RxNorm: 8 06782 1 Capsule(s) PO QD 08/29/2010 08/23/2011 Inactive lisinopril-hydrochlorothiazide 20 mg-12.5 mg Tab RxNorm: 197 886 2 Tablet(s) PO QAM 08/29/2010 08/23/2011 Inactive lisinopril-hydrochlorothiazide 20 mg-25 mg Tab RxNorm: 097322 1 Tablet(s) PO QD 08/21/2010 08/28/2010 Inactive allopurinol 100 mg tablet RxNorm: 527159 1 Tablet(s) PO QD 04/22/19 11 08/28/2010 Inactive allopurinol 100 mg Tab RxNorm: 286114 1 Tablet(s) PO QD 12/18/2009 Inactive Allopurinol 100 mg Tab RxNorm: 149894 1 Tablet(s) PO QD 12/12/2009 Inactive Allopurinol 100 mg Tab RxNorm: 216326 1 Tablet(s) PO QD 10/30/2009 Inactive Omnicef 300 mg Cap RxNorm: 375506 2 Capsule(s) PO QD 10/01/200910/29 Inactive Allopurinol 100 mg Tab RxNorm: 477004 1 Tablet(s) PO QD 10/01/2009 Inactive Vitamin D3 oral RxNorm: 2418 oral 04/18/2020 Active Vitamin C oral RxNorm: 1151 oral 04/18/2020 Active Vitamin B12 1000mcg Tablet RxNorm: 1 Tablet(s) PO QD 08/29/2010 Inactive lisinopril 20 mg-hydrochlorothiazide 12.5 mg tablet RxNorm: 158235 1 Tablet(s) PO QAM 11/20/2014 11/19/2014 Inactive Medrol (Sid) 4 mg tablets in a dose pack RxNorm: 540179 Tablet(s) PO as directed 11/09/2013 11/08/2013 Inactive Omnicef 300 mg Cap RxNorm: 326892 2 Capsule(s) PO QD 09/24/201112/11 Inactive Fish Oil 1,000 mg Cap RxNorm: 1 Capsule(s) PO QD 11/09/20132013 Inactive diltiazem ER (XR/XT) 120 mg Continuous Release Cap RxNorm: 8 68570 1 Capsule(s) PO QD 08/29/2010 08/28/2010 Inactive Culturelle 10 billion cell capsule RxNorm: 209518 1 Capsule(s) PO Q D 11/03/2012 11/02/2012 Inactive metformin ER 500 mg tablet,extended release 24hr RxNorm: 860 975 1 Tablet(s) PO QD 11/28/2013 11/27/2013 Inactive Lisinopril Oral RxNorm: Oral 10/01/2009 10/01/2009 Inactive Vitamin B12 1000mcg Tablet RxNorm: 1 Tablet(s) PO QD 12/18/2015 Inactive Vitamin B12 1000mcg Tablet RxNorm: 1 Tablet(s) PO QD 11/09/2013 Inactive lisinopril-hydrochlorothiazide 20 mg-25 mg Tab RxNorm: 447500 1 Tablet(s) PO QD 08/21/2010 2010 Inactive metformin ER 1,000 mg 24 hr tablet,extended release RxNorm: 744169 1 Tablet(s) PO QD 03/14/2014 03/13/2014 Inactive Fish Oil 1,000 mg capsule RxNorm: 1 Capsule(s) PO QD 12/18/2015 Inactive Medication Administered No Medication Administered data Immunizations Vaccine Codes Date Status B12 Unknown 09/24/2011 Results Observation Observation Code Item Item Code Result Date S ervice Location GLYCOSYLATED HEMOGLOBIN TEST 79205 Hgb A1c 45584-1 5.7 % 0 04/18/2020 Unknown GFR CALC 1248682 GFR Non Afr Amr >60 mL/min 04/18/2020 Un known GFR CALC 0848693 GFR Afr Amr >60 mL/min 04/18/2020 Unknow n COMPREHENSIVE METABOLIC 38315 AST 35 U/L 2020 Unknown COMPREHENSIVE METABOLIC 18513 ALT 45 U/L 2020 Unknown COMPREHENSIVE METABOLIC 46051 BUN 10 mg/dL 2020 Unknown COMPREHENSIVE METABOLIC 19196 ALBUMIN 4.3 g/dL 2020 Unknown COMPREHENSIVE METABOLIC 81716 CHLORIDE 101 mmol/L 04/18 Unknown COMPREHENSIVE METABOLIC 26797 Bili Total 0.8 mg/dL 04/18 Unknown COMPREHENSIVE METABOLIC 82670 ALK PHOS 73 U/L 2020 Unknown COMPREHENSIVE METABOLIC 94162 SODIUM 137 mmol/L 04/18 Unknown COMPREHENSIVE METABOLIC 09681 CREATININE 0.99 mg/dL 03/27 Unknown COMPREHENSIVE METABOLIC 27921 CALCIUM 9.1 mg/dL 2020 Unknown COMPREHENSIVE METABOLIC 27548 POTASSIUM 4.3 mmol/L 04/18 Unknown COMPREHENSIVE METABOLIC 26540 Total Protein 7.0 g/dL Unknown COMPREHENSIVE METABOLIC 65670 Glucose 133 mg/dL 2020 Unknown COMPREHENSIVE METABOLIC 96062 Bicarbonate 26 mmol/L 03/27 Unknown COMPREHENSIVE METABOLIC 04526 AGAP 10 mmol/L 2020 Unknown MEAN GLUC 6389087 Calc Mean Gluc 117 mg/dL 04/18/2020 Unkn own LIPID GROUP 03624 Cholesterol 187 mg/dL 04/18/2020 Unkno wn LIPID GROUP 79798 Triglyceride 87 mg/dL 04/18/2020 Unkn own [facility] 47734 HDL CHOLESTEROL 59 mg/dL 04/18/2020 U nknown LIPID GROUP 20973 Chol/HDL Ratio 3.17 ratio 04/18/2020 U nknown LIPID GROUP 01351 NON-HDL Chol 128 mg/dL 04/18/2020 Unkn own L[facility] GROUP 07104 LDL Cholesterol 111 mg/dL 04/18/2020 U nknown HEPATITIS C ANTIBODY 30317 Hepatitis C Ab Non-Reactive 02/01/2018 Unknown GLYCOSYLATED HEMOGLOBIN TEST 58534 Hgb A1c 33240-7 6.2 % 1 04/01/2017 Unknown GFR CALC 6238501 GFR Non Afr Amr >60 mL/min 01/29/2018 Un known GFR CALC 8673338 GFR Afr Amr >60 mL/min 01/29/2018 Unknow n COMPREHENSIVE METABOLIC 79248 AST 17 U/L 2017 Unknown COMPREHENSIVE METABOLIC 80232 ALT 17 U/L 2017 Unknown COMPREHENSIVE METABOLIC 04800 BUN 12 mg/dL 2017 Unknown COMPREHENSIVE METABOLIC 69826 ALBUMIN 4.6 g/dL 2017 Unknown COMPREHENSIVE METABOLIC 87081 CHLORIDE 101 mmol/L 01/29 Unknown COMPREHENSIVE METABOLIC 19441 Bili Total 0.9 mg/dL 01/29 Unknown COMPREHENSIVE METABOLIC 42369 ALK PHOS 57 U/L 2017 Unknown COMPREHENSIVE METABOLIC 88652 SODIUM 136 mmol/L 01/29 Unknown COMPREHENSIVE METABOLIC 59663 CREATININE 1.00 mg/dL 08/2017 Unknown COMPREHENSIVE METABOLIC 40331 CALCIUM 9.6 mg/dL 2017 Unknown COMPREHENSIVE METABOLIC 04853 POTASSIUM 4.2 mmol/L 01/29 Unknown COMPREHENSIVE METABOLIC 19056 Total Protein 6.9 g/dL Unknown COMPREHENSIVE METABOLIC 46883 Glucose 128 mg/dL 2017 Unknown COMPREHENSIVE METABOLIC 44834 Bicarbonate 27 mmol/L 08/2017 Unknown COMPREHENSIVE METABOLIC 58148 AGAP 8 mmol/L 2017 Unknown LIPID GROUP 95819 Cholesterol 168 mg/dL 01/29/2018 Unkno wn LIPID GROUP 70405 Triglyceride 82 mg/dL 01/29/2018 Unkn own LIPID GROUP 46655 HDL CHOLESTEROL 43 mg/dL 01/29/2018 U nknown LIPID GROUP 44599 Chol/HDL Ratio 3.91 ratio 01/29/2018 U nknown LIPID GROUP 62599 NON-HDL Chol 125 mg/dL 01/29/2018 Unkn own LIPID GROUP 22407 LDL Cholesterol 109 mg/dL 01/29/2018 U nknown MEAN GLUC 9355116 Calc Mean Gluc 131 mg/dL 01/29/2018 Unkn own LIPID GROUP 18249 Cholesterol 164 mg/dL 05/01/2017 Unkno wn LIPID GROUP 41425 Triglyceride 131 mg/dL 05/01/2017 Unkn own LIPID GROUP 65348 HDL CHOLESTEROL 45 mg/dL 05/01/2017 U [facility] LIPID GROUP 62503 Chol/HDL Ratio 3.64 ratio 05/01/2017 U [facility] LIPID GROUP 24712 NON-HDL Chol 119 mg/dL 05/01/2017 Unkn own LIPID GROUP 81809 LDL Cholesterol 93 mg/dL 05/01/2017 U [facility] COMPLETE BLOOD COUNT 9356225 WBC 4.9 10e9/L 05/02/19 18 Unknown COMPLETE BLOOD COUNT 4671863 RBC 4.31 10e12/L 2017 Unknown COMPLETE BLOOD COUNT 7603285 HEMOGLOBIN 14.3 g/dL 05/02/19 18 Unknown COMPLETE BLOOD COUNT 9635246 HEMATOCRIT 42.8 % 05/02/19 18 Unknown COMPLETE BLOOD COUNT 1528337 MCV 99.3 fL 8 Unknown COMPLETE BLOOD COUNT 3160089 MCH 33.2 pg 8 Unknown COMPLETE BLOOD COUNT 1381435 MCHC 33.4 g/dL 8 Unknown COMPLETE BLOOD COUNT 5808082 PLATELET COUNT 241 10e9/L 10/2017 Unknown COMPLETE BLOOD COUNT 5832888 Mean Plt Volume 11.0 fL 10/2017 Unknown COMPLETE BLOOD COUNT 6152433 Neut Auto 56.6 % 8 Unknown COMPLETE BLOOD COUNT 2658011 Lymph Auto 24.7 % 05/02/19 18 Unknown COMPLETE BLOOD COUNT 4961390 [place] Auto 11.6 % 8 Unknown COMPLETE BLOOD COUNT 5832379 RDW 13.2 % 8 Unknown COMPLETE BLOOD COUNT 5702434 Eos Auto 6.9 % 8 Unknown COMPLETE BLOOD COUNT 8668605 Baso Auto 0.2 % 8 Unknown COMPLETE BLOOD COUNT 1169963 Neutrophil Abs 2.77 10e9/L Unknown COMPLETE BLOOD COUNT 6205071 Lymphocyte Abs 1.21 10e9/L Unknown COMPLETE BLOOD COUNT 1865141 Monocyte Abs 0.57 10e9/L 10/2017 Unknown COMPLETE BLOOD COUNT 1912528 Eosinophil Abs 0.34 10e9/L Unknown COMPLETE BLOOD COUNT 1160637 RDW-SD 47.2 fL 8 Unknown COMPLETE BLOOD COUNT 8307444 Basophil Abs 0.01 10e9/L 10/2017 Unknown GLYCOSYLATED HEMOGLOBIN TEST 33892 Hgb A1c 79312-1 6.0 % 0 05/01/2017 Unknown GFR CALC 7568824 GFR Non Afr Amr >60 mL/min 05/01/2017 Un known GFR CALC 9467240 GFR Afr Amr >60 mL/min 05/01/2017 Unknow n MEAN GLUC 7566817 Calc Mean Gluc 126 mg/dL 05/01/2017 Unkn own COMPREHENSIVE METABOLIC 19161 AST 17 U/L 2017 Unknown COMPREHENSIVE METABOLIC 56875 ALT 16 U/L 2017 Unknown COMPREHENSIVE METABOLIC 79704 BUN 13 mg/dL 2017 Unknown COMPREHENSIVE METABOLIC 52745 ALBUMIN 3.9 g/dL 2017 Unknown COMPREHENSIVE METABOLIC 82791 CHLORIDE 104 mmol/L 05/01 Unknown COMPREHENSIVE METABOLIC 86919 Bili Total 0.7 mg/dL 05/01 Unknown COMPREHENSIVE METABOLIC 83220 ALK PHOS 58 U/L 2017 Unknown COMPREHENSIVE METABOLIC 99185 SODIUM 139 mmol/L 05/01 Unknown COMPREHENSIVE METABOLIC 22942 CREATININE 0.99 mg/dL 10/2017 Unknown COMPREHENSIVE METABOLIC 21331 CALCIUM 9.5 mg/dL 2017 Unknown COMPREHENSIVE METABOLIC 42796 POTASSIUM 4.3 mmol/L 05/01 Unknown COMPREHENSIVE METABOLIC 53230 Total Protein 6.7 g/dL Unknown COMPREHENSIVE METABOLIC 65037 Glucose 110 mg/dL 2017 Unknown COMPREHENSIVE METABOLIC 42952 Bicarbonate 27 mmol/L 10/2017 Unknown COMPREHENSIVE METABOLIC 57526 AGAP 8 mmol/L 2017 Unknown PSA EQUIMOLAR NITHIN 08184 PSA Total 1.10 ng/mL 8 Unknown THYROID STIMULATING HORMONE 91811 TSH 0.673 uIU/mL 05/01/2017 Unknown GLYCOSYLATED HEMOGLOBIN TEST 13697 Hgb A1c 02068-9 5.8 % 1 03/08/2015 Unknown MEAN GLUC 9104322 Calc Mean Gluc 120 mg/dL 01/07/2016 Unkn own FREE T4 38678 T4 Free 1.13 ng/dL 01/04/2016 Unknown THYROID STIMULATING HORMONE 13812 TSH 0.875 uIU/mL 01/04/2016 Unknown COMPREHENSIVE METABOLIC 97032 AST 20 U/L 2015 Unknown COMPREHENSIVE METABOLIC 15201 ALT 20 U/L 2015 Unknown COMPREHENSIVE METABOLIC 76070 BUN 14 mg/dL 2015 Unknown COMPREHENSIVE METABOLIC 83126 ALBUMIN 4.4 g/dL 2015 Unknown COMPREHENSIVE METABOLIC 16633 CHLORIDE 103 mmol/L 01/03 Unknown COMPREHENSIVE METABOLIC 86257 Bili Total 0.5 mg/dL 01/03 Unknown COMPREHENSIVE METABOLIC 33670 ALK PHOS 53 U/L 2015 Unknown COMPREHENSIVE METABOLIC 39317 SODIUM 137 mmol/L 01/03 Unknown COMPREHENSIVE METABOLIC 59797 CREATININE 0.98 mg/dL 12/24 Unknown COMPREHENSIVE METABOLIC 10125 CALCIUM 9.6 mg/dL 2015 Unknown COMPREHENSIVE METABOLIC 39773 POTASSIUM 4.5 mmol/L 01/03 Unknown COMPREHENSIVE METABOLIC 27665 Total Protein 7.0 g/dL Unknown COMPREHENSIVE METABOLIC 94339 Glucose 117 mg/dL 2015 Unknown COMPREHENSIVE METABOLIC 61849 Bicarbonate 26 mmol/L 12/24 Unknown COMPREHENSIVE METABOLIC 99942 AGAP 8 mmol/L 2015 Unknown COMPLETE BLOOD COUNT 8578616 WBC 6.2 10e9/L 01/04/20 16 Unknown COMPLETE BLOOD COUNT 3877181 RBC 4.55 10e12/L 2015 Unknown COMPLETE BLOOD COUNT 9161290 HEMOGLOBIN 15.0 g/dL 01/04/20 16 Unknown COMPLETE BLOOD COUNT 6011947 HEMATOCRIT 43.8 % 01/04/20 16 Unknown COMPLETE BLOOD COUNT 3770942 MCV 96.3 fL 6 Unknown COMPLETE BLOOD COUNT 7505075 MCH 33.0 pg 6 Unknown COMPLETE BLOOD COUNT 6579784 MCHC 34.2 g/dL 6 Unknown COMPLETE BLOOD COUNT 5603051 PLATELET COUNT 259 10e9/L 12/2015 Unknown COMPLETE BLOOD COUNT 0876557 Mean Plt Volume 10.8 fL 12/2015 Unknown COMPLETE BLOOD COUNT 8583683 Neut Auto 62.4 % 6 Unknown COMPLETE BLOOD COUNT 2270505 Lymph Auto 25.9 % 01/04/20 16 Unknown COMPLETE BLOOD COUNT 3424509 [place] Auto 6.8 % 6 Unknown COMPLETE BLOOD COUNT 6408861 RDW 13.4 % 6 Unknown COMPLETE BLOOD COUNT [id number] Eos Auto 4.9 % 6 Unknown COMPLETE BLOOD COUNT [id number] Baso Auto 0.0 % 6 Unknown COMPLETE BLOOD COUNT [id number] Neutrophil Abs 3.87 10e9/L Unknown COMPLETE BLOOD COUNT [id number] Lymphocyte Abs 1.61 10e9/L Unknown COMPLETE BLOOD COUNT [id number] Monocyte Abs 0.42 10e9/L 12/24 Unknown COMPLETE BLOOD COUNT [id number] Eosinophil Abs 0.30 10e9/L Unknown COMPLETE BLOOD COUNT [id number] RDW-SD 46.2 fL 6 Unknown COMPLETE BLOOD COUNT [id number] Basophil Abs 0.00 10e9/L 12/24 Unknown PSA EQUIMOLAR NITHIN 28999 PSA Total 1.14 ng/mL 6 Unknown GFR CALC [id number] GFR Non Afr Amr >60 mL/min 01/04/2016 Un known GFR CALC [id number] GFR Afr Amr >60 mL/min 01/04/2016 Unknow n L[facility] 29493 Cholesterol 172 mg/dL 01/04/2016 Unkno wn L[facility] GROUP 89940 Triglyceride 156 mg/dL 01/04/2016 Unkn own [facility] 53344 HDL CHOLESTEROL 42 mg/dL 01/04/2016 U nknown L[facility] 98681 Chol/HDL Ratio 4.10 ratio 01/04/2016 U nknown L[facility] GROUP 31225 NON-HDL Chol 130 mg/dL 01/04/2016 Unkn own LIP[facility] GROUP 23817 LDL Cholesterol 99 mg/dL 01/04/2016 U nknown GLYCOSYLATED HEMOGLOBIN TEST 33676 A1C HPLC 28893-1 5.8 % 1 04/10/2014 Unknown COMPLETE BLOOD COUNT 1181816 WBC 6.0 10e9/L 02/03/20 15 Unknown COMPLETE BLOOD COUNT [id number] RBC 4.39 10e12/L 2014 Unknown COMPLETE BLOOD COUNT [id number] HGB 14.3 g/dL 5 Unknown COMPLETE BLOOD COUNT 8071529 HCT DET 41.7 % 5 Unknown COMPLETE BLOOD COUNT [id number] MCV 95.0 fL 5 Unknown COMPLETE BLOOD COUNT [id number] MCH 32.6 pg 5 Unknown COMPLETE BLOOD COUNT [id number] MCHC 34.3 g/dL 5 Unknown COMPLETE BLOOD COUNT [id number] PLT 272 10e9/L 02/03/20 15 Unknown COMPLETE BLOOD COUNT [id number] MPV 11.1 fL 5 Unknown COMPLETE BLOOD COUNT [id number] GARY % 62.7 % 5 Unknown COMPLETE BLOOD COUNT [id number] LY % 25.2 % 5 Unknown COMPLETE BLOOD COUNT [id number] MON % 7.9 % 5 Unknown COMPLETE BLOOD COUNT [id number] EOS % 4.0 % 5 Unknown COMPLETE BLOOD COUNT [id number] BASO % 0.2 % 5 Unknown COMPLETE BLOOD COUNT 3955310 RDW 13.2 % 5 Unknown COMPLETE BLOOD COUNT [id number] ABS GARY 3.76 10e9/L 015 Unknown COMPLETE BLOOD COUNT [id number] ABS LYMPH 1.51 10e9/L 015 Unknown COMPLETE BLOOD COUNT [id number] ABS MONO 0.47 10e9/L 015 Unknown COMPLETE BLOOD COUNT [id number] ABS EOS 0.24 10e9/L 015 Unknown COMPLETE BLOOD COUNT [id number] ABS BASO 0.01 10e9/L 015 Unknown COMPLETE BLOOD COUNT 1128960 RDW-SD 44.7 fL 5 Unknown GFR CALC 8443670 GFR AA >60 ML/MIN 02/02/2015 Unknown GFR CALC 4020916 GFR NON-AA >60 ML/MIN 02/02/2015 Unknown THYROID STIMULATING HORMONE 72623 TSH 0.970 uIU/ML 02/02/2015 Unknown LIPID GROUP 04638 HDL TEST 41 MG/DL 02/02/2015 Unknown LIPID GROUP 40151 TRIG 151 MG/DL 02/02/2015 Unknown LIPID GROUP 11418 TEST LDL 122 MG/DL 02/02/2015 Unknown LIPID GROUP 04465 CHOL 193 MG/DL 02/02/2015 Unknown LIPID GROUP 15670 RCHOL/HDL 4.71 RATIO 02/02/2015 Unknow n LIPID GROUP 09305 NON-HDL CH 152 MG/DL 02/02/2015 Unknow n PSA EQUIMOLAR NITHIN 07953 PSA EQ 0.76 NG/ML 5 Unknown FREE T4 88430 FREE T4 0.93 NG/DL 02/02/2015 Unknown COMPREHENSIVE METABOLIC 11989 AST 21 U/L 2014 Unknown COMPREHENSIVE METABOLIC 86850 ALT 21 IU/L 2014 Unknown COMPREHENSIVE METABOLIC 75005 BUN 15 MG/DL 2014 Unknown COMPREHENSIVE METABOLIC 03327 ALBUMIN 4.5 GM/DL 2014 Unknown COMPREHENSIVE METABOLIC 27784 CHLORIDE 104 MMOL/L 02/02 Unknown COMPREHENSIVE METABOLIC 70216 BILI TOT 1.0 MG/DL 2014 Unknown COMPREHENSIVE METABOLIC 08430 ALK PHOS 71 U/L 2014 Unknown COMPREHENSIVE METABOLIC 34959 SODIUM 136 MMOL/L 02/02 Unknown COMPREHENSIVE METABOLIC 24393 CREATININE 0.94 MG/DL 01/23 Unknown COMPREHENSIVE METABOLIC 65613 CALCIUM 9.8 MG/DL 2014 Unknown COMPREHENSIVE METABOLIC 94232 POTASSIUM 4.3 MMOL/L 02/02 Unknown COMPREHENSIVE METABOLIC 24961 PROT TOT 6.9 GM/DL 2014 Unknown COMPREHENSIVE METABOLIC 55229 Glucose 113 MG/DL 2014 Unknown COMPREHENSIVE METABOLIC 36477 BICARB 26 MMOL/L 2014 Unknown COMPREHENSIVE METABOLIC 76669 ANION GAP 6 MEQ/L 2014 Unknown ANTI STREPTOLYSIN O TITER(ASO) 28418 ASO 57 IU/ML 06/19/2014 Unknown RA FACTOR 58535 RA FACTOR <20.0 IU/ML 06/15/2014 Unknown FREE T4 16705 FREE T4 1.19 NG/DL 06/15/2014 Unknown ANTINUCLEAR ANTIBODY SCREEN 54016 SHANNON SCR <1:80 Unknown ERYTHROCYTE SEDIMENTATION RATE 25815 ESR 2 MM/HR 06/14/2014 Unknown COMPLETE BLOOD COUNT [id number] WBC 6.7 10e9/L 06/15/19 15 Unknown COMPLETE BLOOD COUNT [id number] RBC 4.86 10e12/L 2014 Unknown COMPLETE BLOOD COUNT 1396334 HGB 15.9 g/dL 5 Unknown COMPLETE BLOOD COUNT 8297087 HCT DET 45.0 % 5 Unknown COMPLETE BLOOD COUNT 6415320 MCV 92.6 fL 5 Unknown COMPLETE BLOOD COUNT 6713781 MCH 32.7 pg 5 Unknown COMPLETE BLOOD COUNT 0289025 MCHC 35.3 g/dL 5 Unknown COMPLETE BLOOD COUNT 4059474 PLT 299 10e9/L 06/15/19 15 Unknown COMPLETE BLOOD COUNT 3185978 MPV 10.0 fL 5 Unknown COMPLETE BLOOD COUNT 6493180 GARY % 63.8 % 5 Unknown COMPLETE BLOOD COUNT 2986566 LY % 18.3 % 5 Unknown COMPLETE BLOOD COUNT 1951959 MON % 12.1 % 5 Unknown COMPLETE BLOOD COUNT 2093559 EOS % 5.7 % 5 Unknown COMPLETE BLOOD COUNT [id number] BASO % 0.1 % 5 Unknown COMPLETE BLOOD COUNT 9665303 RDW 13.3 % 5 Unknown COMPLETE BLOOD COUNT 1641082 ABS GARY 4.27 10e9/L 015 Unknown COMPLETE BLOOD COUNT [id number] ABS LYMPH 1.23 10e9/L 015 Unknown COMPLETE BLOOD COUNT [id number] ABS MONO 0.81 10e9/L 015 Unknown COMPLETE BLOOD COUNT [id number] ABS EOS 0.38 10e9/L 015 Unknown COMPLETE BLOOD COUNT 7328319 ABS BASO 0.01 10e9/L 015 Unknown COMPLETE BLOOD COUNT 9757513 RDW-SD 44.3 fL 5 Unknown URIC ACID 89261 URIC ACID 7.6 MG/DL 06/14/[address] [place] [address] SYP AB NR 06/14/2014 Unknown THYROID STIMULATING HORMONE 35899 TSH 0.825 uIU/ML 06/14/2014 Unknown GLYCOSYLATED HEMOGLOBIN TEST 37976 A1C HPLC 56756-0 6.0 % 0 06/14/2014 Unknown VITAMIN B 12 FOLIC ACID 36008|43377 VIT B 12 751 PG/ML 05/25 Unknown VITAMIN B 12 FOLIC ACID 07601|70531 FOLIC ACID 23.5 NG/ML Unknown GFR CALC 1418472 GFR AA >60 ML/MIN 06/14/2014 Unknown GFR CALC 5903305 GFR NON-AA >60 ML/MIN 06/14/2014 Unknown C-REACTIVE PROTEIN (CRP) QUANT 46360 CRP 0.1 MG/DL 06/14/2014 Unknown COMPREHENSIVE METABOLIC 44872 AST 19 U/L 2014 Unknown COMPREHENSIVE METABOLIC 62840 ALT 16 IU/L 2014 Unknown COMPREHENSIVE METABOLIC 91781 BUN 13 MG/DL 2014 Unknown COMPREHENSIVE METABOLIC 56101 ALBUMIN 5.1 GM/DL 2014 Unknown COMPREHENSIVE METABOLIC 72938 CHLORIDE 92 MMOL/L 2014 Unknown COMPREHENSIVE METABOLIC 26008 BILI TOT 0.6 MG/DL 2014 Unknown COMPREHENSIVE METABOLIC 51708 ALK PHOS 61 U/L 2014 Unknown COMPREHENSIVE METABOLIC 53901 SODIUM 128 MMOL/L 06/14 Unknown COMPREHENSIVE METABOLIC 78563 CREATININE 1.00 MG/DL 05/25 Unknown COMPREHENSIVE METABOLIC 41648 CALCIUM 10.7 MG/DL 06/14 Unknown COMPREHENSIVE METABOLIC 94000 POTASSIUM 4.1 MMOL/L 06/14 Unknown COMPREHENSIVE METABOLIC 65442 PROT TOT 7.6 GM/DL 2014 Unknown COMPREHENSIVE METABOLIC 41154 Glucose 106 MG/DL 2014 Unknown COMPREHENSIVE METABOLIC 05741 BICARB 29 MMOL/L 2014 Unknown COMPREHENSIVE METABOLIC 93401 ANION GAP 7 MEQ/L 2014 Unknown COMPREHENSIVE METABOLIC 00573 AST 21 U/L 2014 Unknown COMPREHENSIVE METABOLIC 26132 ALT 26 IU/L 2014 Unknown COMPREHENSIVE METABOLIC 13422 BUN 16 MG/DL 2014 Unknown COMPREHENSIVE METABOLIC 12985 ALBUMIN 4.6 GM/DL 2014 Unknown COMPREHENSIVE METABOLIC 62095 CHLORIDE 99 MMOL/L 2014 Unknown COMPREHENSIVE METABOLIC 17329 BILI TOT 0.5 MG/DL 2014 Unknown COMPREHENSIVE METABOLIC 79619 ALK PHOS 57 U/L 2014 Unknown COMPREHENSIVE METABOLIC 96237 SODIUM 134 MMOL/L 03/09 Unknown COMPREHENSIVE METABOLIC 78778 CREATININE 0.91 MG/DL 02/23 Unknown COMPREHENSIVE METABOLIC 90429 CALCIUM 9.9 MG/DL 2014 Unknown COMPREHENSIVE METABOLIC 35669 POTASSIUM 4.3 MMOL/L 03/09 Unknown COMPREHENSIVE METABOLIC 20834 PROT TOT 7.0 GM/DL 2014 Unknown COMPREHENSIVE METABOLIC 72021 Glucose 91 MG/DL 2014 Unknown COMPREHENSIVE METABOLIC 22162 BICARB 30 MMOL/L 2014 Unknown COMPREHENSIVE METABOLIC 88135 ANION GAP 5 MEQ/L 2014 Unknown GLYCOSYLATED HEMOGLOBIN TEST 02101 A1C HPLC 16863-9 6.4 % 0 03/09/2014 Unknown GFR CALC 3160946 GFR AA >60 ML/MIN 03/09/2014 Unknown GFR CALC 7096974 GFR NON-AA >60 ML/MIN 03/09/2014 Unknown GLYCOSYLATED HEMOGLOBIN TEST 28287 A1C HPLC 71348-6 6.0 % 0 11/22/2013 Unknown THYROID STIMULATING HORMONE 29499 TSH 0.643 uIU/ML 11/18/2013 Unknown PSA EQUIMOLAR NITHIN 98970 PSA EQ 0.75 NG/ML 4 Unknown COMPREHENSIVE METABOLIC 49154 AST 21 U/L 2013 Unknown COMPREHENSIVE METABOLIC 03558 ALT 22 IU/L 2013 Unknown COMPREHENSIVE METABOLIC 09417 BUN 16 MG/DL 2013 Unknown COMPREHENSIVE METABOLIC 83624 ALBUMIN 4.6 GM/DL 2013 Unknown COMPREHENSIVE METABOLIC 70466 CHLORIDE 97 MMOL/L 2013 Unknown COMPREHENSIVE METABOLIC 22348 BILI TOT 0.8 MG/DL 2013 Unknown COMPREHENSIVE METABOLIC 41820 ALK PHOS 68 U/L 2013 Unknown COMPREHENSIVE METABOLIC 87742 SODIUM 132 MMOL/L 11/18 Unknown COMPREHENSIVE METABOLIC 21664 CREATININE 0.95 MG/DL 10/25 Unknown COMPREHENSIVE METABOLIC 94267 CALCIUM 10.1 MG/DL 11/18 Unknown COMPREHENSIVE METABOLIC 69628 POTASSIUM 4.2 MMOL/L 11/18 Unknown COMPREHENSIVE METABOLIC 79287 PROT TOT 7.2 GM/DL 2013 Unknown COMPREHENSIVE METABOLIC 41683 Glucose 125 MG/DL 2013 Unknown COMPREHENSIVE METABOLIC 94358 BICARB 26 MMOL/L 2013 Unknown COMPREHENSIVE METABOLIC 96049 ANION GAP 9 MEQ/L 2013 Unknown COMPLETE BLOOD COUNT 2851576 WBC 7.3 10e9/L 11/19/19 14 Unknown COMPLETE BLOOD COUNT 2611708 RBC 4.68 10e12/L 2013 Unknown COMPLETE BLOOD COUNT 9997398 HGB 15.4 g/dL 4 Unknown COMPLETE BLOOD COUNT 3341442 HCT DET 43.4 % 4 Unknown COMPLETE BLOOD COUNT 6306942 MCV 92.7 fL 4 Unknown COMPLETE BLOOD COUNT 4529658 MCH 32.9 pg 4 Unknown COMPLETE BLOOD COUNT 9445011 MCHC 35.5 g/dL 4 Unknown COMPLETE BLOOD COUNT 5644265 PLT 286 10e9/L 11/19/19 14 Unknown COMPLETE BLOOD COUNT 6589760 MPV 10.8 fL 4 Unknown COMPLETE BLOOD COUNT 2793805 GARY % 61.6 % 4 Unknown COMPLETE BLOOD COUNT 9738150 LY % 25.6 % 4 Unknown COMPLETE BLOOD COUNT 8614668 MON % 8.7 % 4 Unknown COMPLETE BLOOD COUNT 6491399 EOS % 4.0 % 4 Unknown COMPLETE BLOOD COUNT 9856647 BASO % 0.1 % 4 Unknown COMPLETE BLOOD COUNT 7483797 RDW 12.9 % 4 Unknown COMPLETE BLOOD COUNT 4806434 ABS GARY 4.50 10e9/L 014 Unknown COMPLETE BLOOD COUNT 3050850 ABS LYMPH 1.87 10e9/L 014 Unknown COMPLETE BLOOD COUNT 0306306 ABS MONO 0.64 10e9/L 014 Unknown COMPLETE BLOOD COUNT 1298163 ABS EOS 0.29 10e9/L 014 Unknown COMPLETE BLOOD COUNT 1209847 ABS BASO 0.01 10e9/L 014 Unknown COMPLETE BLOOD COUNT 5367021 RDW-SD 42.9 fL 4 Unknown LIPID GROUP 33315 HDL TEST 52 MG/DL 11/18/2013 Unknown LIPID GROUP 53865 TRIG 100 MG/DL 11/18/2013 Unknown LIPID GROUP 32756 TEST LDL 110 MG/DL 11/18/2013 Unknown LIPID GROUP 89634 CHOL 182 MG/DL 11/18/2013 Unknown LIPID GROUP 79773 RCHOL/HDL 3.50 RATIO 11/18/2013 Unknow n LIPID GROUP 42004 NON-HDL CH 130 MG/DL 11/18/2013 Unknow n FREE T4 58894 FREE T4 1.28 NG/DL 11/18/2013 Unknown GFR CALC 1832380 GFR AA >60 ML/MIN 11/18/2013 Unknown GFR CALC 4577645 GFR NON-AA >60 ML/MIN 11/18/2013 Unknown COMPREHENSIVE METABOLIC 45916 AST 21 U/L 2012 Unknown COMPREHENSIVE METABOLIC 57968 ALT 20 IU/L 2012 Unknown COMPREHENSIVE METABOLIC 16706 BUN 12 MG/DL 2012 Unknown COMPREHENSIVE METABOLIC 23268 ALBUMIN 4.6 GM/DL 2012 Unknown COMPREHENSIVE METABOLIC 87650 CHLORIDE 105 MMOL/L 11/03 Unknown COMPREHENSIVE METABOLIC 78806 BILI TOT 0.5 MG/DL 2012 Unknown COMPREHENSIVE METABOLIC 65491 ALK PHOS 53 U/L 2012 Unknown COMPREHENSIVE METABOLIC 46603 SODIUM 138 MMOL/L 11/03 Unknown COMPREHENSIVE METABOLIC 20274 CREATININE 0.93 MG/DL 10/24 Unknown COMPREHENSIVE METABOLIC 76469 CALCIUM 9.7 MG/DL 2012 Unknown COMPREHENSIVE METABOLIC 32947 POTASSIUM 4.3 MMOL/L 11/03 Unknown COMPREHENSIVE METABOLIC 16156 PROT TOT 7.0 GM/DL 2012 Unknown COMPREHENSIVE METABOLIC 69266 Glucose 117 MG/DL 2012 Unknown COMPREHENSIVE METABOLIC 78430 BICARB 25 MMOL/L 2012 Unknown COMPREHENSIVE METABOLIC 80684 ANION GAP 8 MEQ/L 2012 Unknown GFR CALC 4024639 GFR AA >60 ML/MIN 11/03/2012 Unknown GFR CALC 3069303 GFR NON-AA >60 ML/MIN 11/03/2012 Unknown THYROID STIMULATING HORMONE 80615 TSH 1.218 uIU/ML 11/03/2012 Unknown URIC ACID 21343 URIC ACID 7.6 MG/DL 11/03/2012 Unknown COMPLETE BLOOD COUNT 4341704 WBC 5.0 10e9/L 11/04/19 13 Unknown COMPLETE BLOOD COUNT [id number] RBC 4.70 10e12/L 2012 Unknown COMPLETE BLOOD COUNT 1369923 HGB 15.6 g/dL 3 Unknown COMPLETE BLOOD COUNT 9263433 HCT DET 44.2 % 3 Unknown COMPLETE BLOOD COUNT 9339862 MCV 94.0 fL 3 Unknown COMPLETE BLOOD COUNT 7472995 MCH 33.2 pg 3 Unknown COMPLETE BLOOD COUNT 4155784 MCHC 35.3 g/dL 3 Unknown COMPLETE BLOOD COUNT 1804302 PLT 248 10e9/L 11/04/19 13 Unknown COMPLETE BLOOD COUNT 0641579 MPV 10.9 fL 3 Unknown COMPLETE BLOOD COUNT 6815560 GARY % 58.3 % 3 Unknown COMPLETE BLOOD COUNT 4020214 LY % 27.9 % 3 Unknown COMPLETE BLOOD COUNT 5749875 MON % 7.0 % 3 Unknown COMPLETE BLOOD COUNT 4538832 EOS % 6.6 % 3 Unknown COMPLETE BLOOD COUNT 3639253 BASO % 0.2 % 3 Unknown COMPLETE BLOOD COUNT 5044558 RDW 13.2 % 3 Unknown COMPLETE BLOOD COUNT 5320489 ABS GARY 2.92 10e9/L 013 Unknown COMPLETE BLOOD COUNT 9507520 ABS LYMPH 1.40 10e9/L 013 Unknown COMPLETE BLOOD COUNT 3327551 ABS MONO 0.35 10e9/L 013 Unknown COMPLETE BLOOD COUNT 3847591 ABS EOS 0.33 10e9/L 013 Unknown COMPLETE BLOOD COUNT 9928269 ABS BASO 0.01 10e9/L 013 Unknown COMPLETE BLOOD COUNT 7714201 RDW-SD 44.1 fL 3 Unknown HERPE1/2MG 39210|88209|30129 HSV G1 EIA 1.78 INDEX 3 Unknown HERPE1/2MG 52536|12867|61423 HSVM1/2EIA 0.15 02/26/2012 Unknown HERPE1/2MG 29352|17204|33678 HSV G2 EIA 10.14 INDEX 02/25/19 13 Unknown COMPLETE BLOOD COUNT 5673813 WBC 9.4 10e9/L 02/24/19 13 Unknown COMPLETE BLOOD COUNT 2557628 RBC 4.54 10e12/L 2012 Unknown COMPLETE BLOOD COUNT 5489332 HGB 14.9 g/dL 3 Unknown COMPLETE BLOOD COUNT 8107398 HCT DET 43.0 % 3 Unknown COMPLETE BLOOD COUNT 5052544 MCV 94.7 fL 3 Unknown COMPLETE BLOOD COUNT 5446702 MCH 32.8 pg 3 Unknown COMPLETE BLOOD COUNT 8627877 MCHC 34.7 g/dL 3 Unknown COMPLETE BLOOD COUNT 2671981 PLT 251 10e9/L 02/24/19 13 Unknown COMPLETE BLOOD COUNT 4991259 MPV 11.1 fL 3 Unknown COMPLETE BLOOD COUNT 1336054 GARY % 75.0 % 3 Unknown COMPLETE BLOOD COUNT 4244937 LY % 15.7 % 3 Unknown COMPLETE BLOOD COUNT [id number] MON % 6.8 % 3 Unknown COMPLETE BLOOD COUNT [id number] EOS % 2.3 % 3 Unknown COMPLETE BLOOD COUNT 7495619 BASO % 0.2 % 3 Unknown COMPLETE BLOOD COUNT 6257738 RDW 13.2 % 3 Unknown COMPLETE BLOOD COUNT [id number] ABS GARY 7.05 10e9/L 013 Unknown COMPLETE BLOOD COUNT 5041941 ABS LYMPH 1.48 10e9/L 013 Unknown COMPLETE BLOOD COUNT 4832281 ABS MONO 0.64 10e9/L 013 Unknown COMPLETE BLOOD COUNT 4372547 ABS EOS 0.22 10e9/L 013 Unknown COMPLETE BLOOD COUNT 7429616 ABS BASO 0.02 10e9/L 013 Unknown COMPLETE BLOOD COUNT 6397375 RDW-SD 44.3 fL 3 Unknown COMPREHENSIVE METABOLIC 42559 AST 21 U/L 2012 Unknown COMPREHENSIVE METABOLIC 57777 ALT 22 IU/L 2012 Unknown COMPREHENSIVE METABOLIC 40345 BUN 12 MG/DL 2012 Unknown COMPREHENSIVE METABOLIC 33176 ALBUMIN 4.9 GM/DL 2012 Unknown COMPREHENSIVE METABOLIC 79829 CHLORIDE 102 MMOL/L 02/24 Unknown COMPREHENSIVE METABOLIC 43822 BILI TOT 0.6 MG/DL 2012 Unknown COMPREHENSIVE METABOLIC 15080 ALK PHOS 59 U/L 2012 Unknown COMPREHENSIVE METABOLIC 99090 SODIUM 137 MMOL/L 02/24 Unknown COMPREHENSIVE METABOLIC 07208 CREATININE 0.92 MG/DL 03/2012 Unknown COMPREHENSIVE METABOLIC 72253 CALCIUM 9.7 MG/DL 2012 Unknown COMPREHENSIVE METABOLIC 63829 POTASSIUM 4.1 MMOL/L 02/24 Unknown COMPREHENSIVE METABOLIC 56517 PROT TOT 6.9 GM/DL 2012 Unknown COMPREHENSIVE METABOLIC 32447 Glucose 127 MG/DL 2012 Unknown COMPREHENSIVE METABOLIC 41889 BICARB 25 MMOL/L 2012 Unknown COMPREHENSIVE METABOLIC 95768 ANION GAP 10 MEQ/L 2012 Unknown GFR CALC 6620216 GFR AA >60 ML/MIN 02/25/2012 Unknown GFR CALC 9265232 GFR NON-AA >60 ML/MIN 02/25/2012 Unknown TULAREM AB 7367040 TULAREM AB <1:20 09/23/2011 Unknown [place] FEVER 64004S0 IGG RMSF <1:16 0 09/19/2011 Unknown [place] FEVER 44636G3 IGM RMSF <1:10 0 09/19/2011 Unknown E CHAFF AB 3397816 IGG E CHFF <1:16 09/19/2011 Unknown E CHAFF AB 7344633 IGM E CHFF <1:10 09/19/2011 Unknown GLYCOSYLATED HEMOGLOBIN TEST 49655 A1C [facility] 74527-1 5.4 % 0 09/18/2011 Unknown GFR CALC 0527053 GFR AA >60 ML/MIN 09/17/2011 Unknown GFR CALC 6669143 GFR NON-AA >60 ML/MIN 09/17/2011 Unknown VITAMIN B 12 FOLIC ACID 29211|61431 VIT B 12 405 PG/ML 08/24 Unknown VITAMIN B 12 FOLIC ACID 63101|03316 FOLIC ACID 17.5 NG/ML Unknown COMPREHENSIVE METABOLIC 40150 AST 19 U/L 2011 Unknown COMPREHENSIVE METABOLIC 89127 ALT 19 IU/L 2011 Unknown COMPREHENSIVE METABOLIC 26516 BUN 12 MG/DL 2011 Unknown COMPREHENSIVE METABOLIC 52573 ALBUMIN 4.9 GM/DL 2011 Unknown COMPREHENSIVE METABOLIC 61232 CHLORIDE 98 MMOL/L 2011 Unknown COMPREHENSIVE METABOLIC 47261 BILI TOT 1.2 MG/DL 2011 Unknown COMPREHENSIVE METABOLIC 90107 ALK PHOS 60 U/L 2011 Unknown COMPREHENSIVE METABOLIC 95553 SODIUM 133 MMOL/L 09/16 Unknown COMPREHENSIVE METABOLIC 19946 CREATININE 1.12 MG/DL 08/24 Unknown COMPREHENSIVE METABOLIC 44308 CALCIUM 10.1 MG/DL 09/16 Unknown COMPREHENSIVE METABOLIC 16687 POTASSIUM 4.1 MMOL/L 09/16 Unknown COMPREHENSIVE METABOLIC 01097 PROT TOT 7.6 GM/DL 2011 Unknown COMPREHENSIVE METABOLIC 27250 Glucose 121 MG/DL 2011 Unknown COMPREHENSIVE METABOLIC 07906 BICARB 25 MMOL/L 2011 Unknown COMPREHENSIVE METABOLIC 81936 ANION GAP 10 MEQ/L 2011 Unknown COMPLETE BLOOD COUNT 55924 WBC 5.8 10e9/L 09/17/19 12 Unknown COMPLETE BLOOD COUNT 64073 RBC 5.01 10e12/L 2011 Unknown COMPLETE BLOOD COUNT 04060 HGB 16.4 g/dL 2 Unknown COMPLETE BLOOD COUNT 66435 HCT DET 46.7 % 2 Unknown COMPLETE BLOOD COUNT 61032 MCV 93.2 fL 2 Unknown COMPLETE BLOOD COUNT 34566 MCH 32.7 pg 2 Unknown COMPLETE BLOOD COUNT 09109 MCHC 35.1 g/dL 2 Unknown COMPLETE BLOOD COUNT 93370 PLT 275 10e9/L 09/17/19 12 Unknown COMPLETE BLOOD COUNT 03741 MPV 10.8 fL 2 Unknown COMPLETE BLOOD COUNT 81237 GARY % 47.1 % 2 Unknown COMPLETE BLOOD COUNT 49822 LY % 37.2 % 2 Unknown COMPLETE BLOOD COUNT 17575 MON % 9.5 % 2 Unknown COMPLETE BLOOD COUNT 74375 EOS % 5.9 % 2 Unknown COMPLETE BLOOD COUNT 59661 BASO % 0.3 % 2 Unknown COMPLETE BLOOD COUNT 05713 RDW 13.0 % 2 Unknown COMPLETE BLOOD COUNT 75784 ABS GARY 2.73 10e9/L 012 Unknown COMPLETE BLOOD COUNT 64510 ABS LYMPH 2.16 10e9/L 012 Unknown COMPLETE BLOOD COUNT 04829 ABS MONO 0.55 10e9/L 012 Unknown COMPLETE BLOOD COUNT 53322 ABS EOS 0.34 10e9/L 012 Unknown COMPLETE BLOOD COUNT 04884 ABS BASO 0.02 10e9/L 012 Unknown COMPLETE BLOOD COUNT 58398 RDW-SD 43.1 fL 2 Unknown LIPID GROUP 50697 HDL TEST 39 MG/DL 09/17/2011 Unknown LIPID GROUP 41177 TRIG 195 MG/DL 09/17/2011 Unknown LIPID GROUP 16394 TEST LDL 98 MG/DL 09/17/2011 Unknown LIPID GROUP 69163 CHOL 176 MG/DL 09/17/2011 Unknown LIPID GROUP 30973 RCHOL/HDL 4.51 RATIO 09/17/2011 Unknow n THYROID STIMULATING HORMONE 28492 TSH 2.892 uIU/ML 08/29/2010 Unknown COMPLETE BLOOD COUNT 40043 WBC 6.5 10e9/L 08/30/19 11 Unknown COMPLETE BLOOD COUNT 21620 RBC 4.83 10e12/L 2010 Unknown COMPLETE BLOOD COUNT 34067 HGB 15.9 g/dL 1 Unknown COMPLETE BLOOD COUNT 10024 HCT DET 44.4 % 1 Unknown COMPLETE BLOOD COUNT 68918 MCV 91.9 fL 1 Unknown COMPLETE BLOOD COUNT 72353 MCH 32.9 pg 1 Unknown COMPLETE BLOOD COUNT 66039 MCHC 35.8 g/dL 1 Unknown COMPLETE BLOOD COUNT 82795 PLT 273 10e9/L 08/30/19 11 Unknown COMPLETE BLOOD COUNT 87275 MPV 10.1 fL 1 Unknown COMPLETE BLOOD COUNT 04289 GARY % 45.3 % 1 Unknown COMPLETE BLOOD COUNT 86382 LY % 39.3 % 1 Unknown COMPLETE BLOOD COUNT 80992 MON % 9.8 % 1 Unknown COMPLETE BLOOD COUNT 00737 EOS % 5.4 % 1 Unknown COMPLETE BLOOD COUNT 27488 BASO % 0.2 % 1 Unknown COMPLETE BLOOD COUNT 51333 RDW 13.2 % 1 Unknown COMPLETE BLOOD COUNT 56926 ABS GARY 2.94 10e9/L 011 Unknown COMPLETE BLOOD COUNT 10656 ABS LYMPH 2.55 10e9/L 011 Unknown COMPLETE BLOOD COUNT 95686 ABS MONO 0.64 10e9/L 011 Unknown COMPLETE BLOOD COUNT 76291 ABS EOS 0.35 10e9/L 011 Unknown COMPLETE BLOOD COUNT 24859 ABS BASO 0.01 10e9/L 011 Unknown COMPLETE BLOOD COUNT 37916 RDW-SD 43.5 fL 1 Unknown FREE T4 94030 FREE T4 1.39 NG/DL 08/29/2010 Unknown LIPID GROUP 18986 HDL TEST 52 MG/DL 08/29/2010 Unknown LIPID GROUP 48747 TRIG 110 MG/DL 08/29/2010 Unknown LIPID GROUP 86341 TEST LDL 109 MG/DL 08/29/2010 Unknown LIPID GROUP 15046 CHOL 183 MG/DL 08/29/2010 Unknown LIPID GROUP 01720 RCHOL/HDL 3.52 RATIO 08/29/2010 Unknow n PSA EQUIMOLAR NITHIN 90024 PSA EQ 1.14 NG/ML 1 Unknown GFR CALC 1576252 GFR AA >60 ML/MIN 08/29/2010 Unknown GFR CALC 1444089 GFR NON-AA >60 ML/MIN 08/29/2010 Unknown COMPREHENSIVE METABOLIC 13088 AST 23 U/L 2010 Unknown COMPREHENSIVE METABOLIC 68936 ALT 19 IU/L 2010 Unknown COMPREHENSIVE METABOLIC 13239 BUN 12 MG/DL 2010 Unknown COMPREHENSIVE METABOLIC 36892 ALBUMIN 4.9 GM/DL 2010 Unknown COMPREHENSIVE METABOLIC 81189 CHLORIDE 95 MMOL/L 2010 Unknown COMPREHENSIVE METABOLIC 82675 BILI TOT 0.4 MG/DL 2010 Unknown COMPREHENSIVE METABOLIC 75113 ALK PHOS 59 U/L 2010 Unknown COMPREHENSIVE METABOLIC 22585 SODIUM 132 MMOL/L 08/29 Unknown COMPREHENSIVE METABOLIC 36167 CREATININE 0.96 MG/DL 08/2010 Unknown COMPREHENSIVE METABOLIC 55508 CALCIUM 10.6 MG/DL 08/29 Unknown COMPREHENSIVE METABOLIC 57579 POTASSIUM 4.0 MMOL/L 08/29 Unknown COMPREHENSIVE METABOLIC 44110 PROT TOT 8.0 GM/DL 2010 Unknown COMPREHENSIVE METABOLIC 09218 Glucose 105 MG/DL 2010 Unknown COMPREHENSIVE METABOLIC 02804 BICARB 22 MMOL/L 2010 Unknown COMPREHENSIVE METABOLIC 11791 ANION GAP 15 MEQ/L 2010 Unknown URIC ACID 33298 URIC ACID 6.7 MG/DL 12/12/2009 Unknown Procedures Procedure Codes Date ROUTINE VENIPUNCTURE CPT-4: 44870 04/18/2020 COMPREHEN METABOLIC PANEL CPT-4: 02716 04/18/2020 LIPID PANEL CPT-4: 20647 04/18/2020 A1C HPLC CPT-4: 78670 04/18/2020 PPPS, subseq visit CPT-4: G0439 10/12/2019 ROUTINE VENIPUNCTURE CPT-4: 84258 01/29/2018 COMPREHEN METABOLIC PANEL CPT-4: 59757 01/29/2018 LIPID PANEL CPT-4: 41750 01/29/2018 A1C HPLC CPT-4: 84095 01/29/2018 HEPATITIS C AB TEST CPT-4: 23843 01/29/2018 ROUTINE VENIPUNCTURE CPT-4: 83263 05/01/2017 ASSAY THYROID STIM HORMONE CPT-4: 57641 05/01/2017 COMPREHEN METABOLIC PANEL CPT-4: 91095 05/01/2017 COMPLETE CBC W/AUTO DIFF WBC CPT-4: 32461 05/01/2017 LIPID PANEL CPT-4: 54392 05/01/2017 A1C HPLC CPT-4: 58688 05/01/2017 ASSAY OF PSA TOTAL CPT-4: 81554 05/01/2017 ROUTINE VENIPUNCTURE CPT-4: 68651 01/04/2016 ASSAY OF FREE THYROXINE CPT-4: 50756 01/04/2016 ASSAY THYROID STIM HORMONE CPT-4: 37108 01/04/2016 COMPREHEN METABOLIC PANEL CPT-4: 70837 01/04/2016 COMPLETE CBC W/AUTO DIFF WBC CPT-4: 86691 01/04/2016 LIPID PANEL CPT-4: 91627 01/04/2016 ASSAY OF PSA TOTAL CPT-4: 52497 01/04/2016 A1C HPLC CPT-4: 75549 01/04/2016 ROUTINE VENIPUNCTURE CPT-4: 04868 02/02/2015 ASSAY OF FREE THYROXINE CPT-4: 75670 02/02/2015 ASSAY THYROID STIM HORMONE CPT-4: 97424 02/02/2015 COMPREHEN METABOLIC PANEL CPT-4: 68800 02/02/2015 COMPLETE CBC W/AUTO DIFF WBC CPT-4: 46131 02/02/2015 LIPID PANEL CPT-4: 86809 02/02/2015 ASSAY OF PSA TOTAL CPT-4: 19242 02/02/2015 A1C HPLC CPT-4: 53178 02/02/2015 THER/PROPH/DIAG INJ SC/IM CPT-4: 13997 07/19/2014 METHYLPREDNISOLONE 40 MG INJ CPT-4: J1030 07/19/2014 TRIAMCINOLONE ACET INJ NOS CPT-4: J3301 07/19/2014 ROUTINE VENIPUNCTURE CPT-4: 67121 06/14/2014 ASSAY OF FREE THYROXINE CPT-4: 33745 06/14/2014 ASSAY THYROID STIM HORMONE CPT-4: 95949 06/14/2014 COMPREHEN METABOLIC PANEL CPT-4: 68883 06/14/2014 COMPLETE CBC W/AUTO DIFF WBC CPT-4: 26340 06/14/2014 A1C HPLC CPT-4: 51929 06/14/2014 VITAMIN B 12 FOLIC ACID CPT-4: 45217|92795 06/14/2014 RBC SED RATE AUTOMATED CPT-4: 96223 06/14/2014 RHEUMATOID FACTOR QUANT CPT-4: 13411 06/14/2014 ANTINUCLEAR ANTIBODIES CPT-4: 35362 06/14/2014 ANTISTREPTOLYSIN O TITER CPT-4: 37093 06/14/2014 ASSAY OF BLOOD/URIC ACID CPT-4: 77171 06/14/2014 C-REACTIVE PROTEIN CPT-4: 30010 06/14/2014 ROUTINE VENIPUNCTURE CPT-4: 15363 03/09/2014 COMPREHEN METABOLIC PANEL CPT-4: 56696 03/09/2014 A1C HPLC CPT-4: 86140 03/09/2014 ROUTINE VENIPUNCTURE CPT-4: 41018 11/18/2013 ASSAY OF FREE THYROXINE CPT-4: 71182 11/18/2013 ASSAY THYROID STIM HORMONE CPT-4: 33620 11/18/2013 COMPREHEN METABOLIC PANEL CPT-4: 02517 11/18/2013 COMPLETE CBC W/AUTO DIFF WBC CPT-4: 31477 11/18/2013 LIPID PANEL CPT-4: 87201 11/18/2013 ASSAY OF PSA TOTAL CPT-4: 85542 11/18/2013 A1C HPLC CPT-4: 97649 11/18/2013 REMOVE FOREIGN BODY CPT-4: 52027 11/09/2013 OCCULT BLOOD FECES CPT-4: 76681 11/09/2013 THER/PROPH/DIAG INJ SC/IM CPT-4: 07335 11/24/2012 VITAMIN B12 INJECTION CPT-4: J3420 11/24/2012 COMPREHEN METABOLIC PANEL CPT-4: 54883 11/03/2012 COMPLETE CBC W/AUTO DIFF WBC CPT-4: 72673 11/03/2012 ASSAY THYROID STIM HORMONE CPT-4: 49813 11/03/2012 ASSAY OF BLOOD/URIC ACID CPT-4: 96310 11/03/2012 ROUTINE VENIPUNCTURE CPT-4: 64577 11/03/2012 ROUTINE VENIPUNCTURE CPT-4: 90222 02/25/2012 COMPREHEN METABOLIC PANEL CPT-4: 61654 02/25/2012 COMPLETE CBC W/AUTO DIFF WBC CPT-4: 42900 02/25/2012 HERPE1/2MG CPT-4: 39860|16329|04934 02/25/2012 THER/PROPH/DIAG INJ SC/IM CPT-4: 24266 09/24/2011 VITAMIN B12 INJECTION CPT-4: J3420 09/24/2011 CEFTRIAXONE SODIUM INJECTION CPT-4: J0696 09/24/2011 THER/PROPH/DIAG INJ SC/IM CPT-4: 12060 09/24/2011 ROUTINE VENIPUNCTURE CPT-4: 05512 09/17/2011 COMPREHEN METABOLIC PANEL CPT-4: 80469 09/17/2011 COMPLETE CBC W/AUTO DIFF WBC CPT-4: 13626 09/17/2011 LIPID PANEL CPT-4: 68174 09/17/2011 VITAMIN B 12 FOLIC ACID CPT-4: 85066|99658 09/17/2011 A1C GLYCOSYLATED HEMOGLOBIN TEST CPT-4: 88855 012 ROUTINE VENIPUNCTURE CPT-4: 98868 08/29/2010 COMPLETE CBC W/AUTO DIFF WBC CPT-4: 74177 08/29/2010 COMPREHEN METABOLIC PANEL CPT-4: 45599 08/29/2010 LIPID PANEL CPT-4: 71531 08/29/2010 ASSAY THYROID STIM HORMONE CPT-4: 29062 08/29/2010 ASSAY OF FREE THYROXINE CPT-4: 27504 08/29/2010 ASSAY OF PSA TOTAL CPT-4: 73875 08/29/2010 THER/PROPH/DIAG INJ SC/IM CPT-4: 46895 12/12/2009 VITAMIN B12 INJECTION CPT-4: J3420 12/12/2009 ROUTINE VENIPUNCTURE CPT-4: 42169 12/12/2009 ASSAY OF BLOOD/URIC ACID CPT-4: 42318 12/12/2009 THER/PROPH/DIAG INJ SC/IM CPT-4: 00001 10/30/2009 VITAMIN B12 INJECTION CPT-4: J3420 10/30/2009 THER/PROPH/DIAG INJ SC/IM CPT-4: 63545 10/01/2009 VITAMIN B12 INJECTION CPT-4: J3420 10/01/2009 THER/PROPH/DIAG INJ SC/IM CPT-4: 82493 10/01/2009 CEFTRIAXONE SODIUM INJECTION CPT-4: J0696 10/01/2009 Vital Signs Date Vital 10/19/2020 Blood Pressure 1: 121/87 Code: 8480-6 Heart Rate 1: 100 bpm Respiratory Rate: 16 bpm SpO2: 96% Temperature: 36.3 (C) / 97.3 (F) We ight: 149 lbs Code: 13088-8 10/01/2020 Blood Pressure 1: 140/84 Code: 8480-6 Heart Rate 1: 100 bpm Respiratory Rate: 18 bpm SpO2: 96% Temperature: 36.6 (C) / 97.9 (F) We ight: 147 lbs Code: 99500-0 09/24/2020 Blood Pressure 1: 112/70 Code: 8480-6 [...] 98.1 (F) We ight: 152 lbs Code: 18846-3 09/12/2020 Blood Pressure 1: 133/70 Code: 8480-6 Heart Rate 1: 100 bpm Respiratory Rate: 16 bpm SpO2: 100% Temperature: 36.5 (C) / 97.7 (F) We ight: 152 lbs Code: 24623-0 04/18/2020 Blood Pressure 1: 144/78 Code: 8480-6 Heart Rate 1: 80 bpm Respiratory Rate: 16 bpm SpO2: 98% Temperature: 36.4 (C) / 97.5 (F) We ight: 160 lbs Code: 69014-7 10/12/2019 Blood Pressure 1: 124/78 Code: 8480-6 BMI: 24.8 Code: 16496-8 Heart Rate 1: 76 bpm Height: 5'8" Code: 8302-2 Respiratory Rate: 20 bpm SpO2: 98% Temperature: 36.6 (C) / 97.9 (F) Weight: 163 lbs Code: 36196-4 04/25/2019 Blood Pressure 1: 140/86 Code: 8480-6 BMI: 24.3 Code: 89254-6 Heart Rate 1: 92 bpm Height: 5'8" Code: 8302-2 Respiratory Rate: 20 bpm SpO2: 98% Temperature: 36.8 (C) / 98.3 (F) Weight: 160 lbs Code: 67342-1 04/12/2019 Blood Pressure 1: 146/86 Code: 8480-6 BMI: 25.4 Code: 37917-7 Heart Rate 1: 88 bpm Height: 5'8" Code: 8302-2 Respiratory Rate: 20 bpm SpO2: 98% Temperature: 36.5 (C) / 97.7 (F) Weight: 167 lbs Code: 03767-9 02/17/2018 Blood Pressure 1: 114/62 Code: 8480-6 Bl ood Pressure 2: 116/70 Code: 8480-6 BMI: 24.9 Code: 86595-8 Heart Rate 1: 76 bpm Height: 5'8" Code: 8302-2 Respiratory Rate: 20 bpm SpO2: 97% Temperature: 36.7 (C) / 98.0 (F) We ight: 164 lbs Code: 88027-5 04/07/2017 Blood Pressure 1: 122/84 Code: 8480-6 BMI: 24.3 Code: 37497-2 Heart Rate 1: 72 bpm Height: 5'8" Code: 8302-2 Respiratory Rate: 20 bpm SpO2: 96% Temperature: 36.9 (C) / 98.4 (F) Weight: 160 lbs Code: 61874-9 09/19/2016 Blood Pressure 1: 124/76 Code: 8480-6 BMI: 24.6 Code: 23130-6 Heart Rate 1: 68 bpm Height: 5'8" Code: 8302-2 Respiratory Rate: 20 bpm SpO2: 96% Temperature: 36.6 (C) / 97.9 (F) Weight: 162 lbs Code: 21038-3 12/18/2015 Blood Pressure 1: 136/70 Code: 8480-6 BMI: 24.3 Code: 15742-5 Heart Rate 1: 84 bpm Height: 5'8" Code: 8302-2 Respiratory Rate: 20 bpm Temperatu re: 36.5 (C) / 97.7 (F) Weight: 160 lbs Code: 84599-5 07/20/2015 Blood Pressure 1: 140/84 Code: 8480-6 BMI: 24.9 Code: 92753-3 Heart Rate 1: 76 bpm Height: 5'8" Code: 8302-2 Respiratory Rate: 20 bpm Temperatu re: 36.6 (C) / 97.9 (F) Weight: 164 lbs Code: 49740-3 02/07/2015 Blood Pressure 1: 164/82 Code: 8480-6 BMI: 25.5 Code: 80127-3 Heart Rate 1: 78 bpm Height: 5'8" Code: 8302-2 Respiratory Rate: 20 bpm Temperatu re: 36.5 (C) / 97.7 (F) Weight: 168 lbs Code: 56011-7 07/19/2014 Blood Pressure 1: 136/94 Code: 8480-6 BMI: 24.8 Code: 48741-3 Heart Rate 1: 88 bpm Height: 5'8" Code: 8302-2 Respiratory Rate: 20 bpm Temperatu re: 36.8 (C) / 98.2 (F) Weight: 163 lbs Code: 60441-3 07/06/2014 Blood Pressure 1: 136/92 Code: 8480-6 BMI: 24.2 Code: 35230-7 Heart Rate 1: 88 bpm Height: 5'8" Code: 8302-2 Respiratory Rate: 20 bpm Temperatu re: 36.9 (C) / 98.4 (F) Weight: 159 lbs Code: 10570-3 07/04/2014 Blood Pressure 1: 116/84 Code: 8480-6 Bl ood Pressure 2: 108/82 Code: 8480-6 Heart Rate 1: 88 bpm Respiratory Rate: 20 bpm Temperature: 3 6.7 (C) / 98.0 (F) Weight: 159 lbs Code: 52293-6 06/14/2014 Blood Pressure 1: 132/90 Code: 8480-6 BMI: 24.6 Code: 79245-7 Heart Rate 1: 100 bpm Height: 5'8" Code: 8302-2 Respiratory Rate: 20 bpm Temperatu re: 37.2 (C) / 99.0 (F) Weight: 162 lbs Code: 95881-4 03/09/2014 Blood Pressure 1: 122/62 Code: 8480-6 BMI: 25.4 Code: 59779-9 Heart Rate 1: 84 bpm Height: 5'8" Code: 8302-2 Respiratory Rate: 20 bpm Temperatu re: 36.6 (C) / 97.8 (F) Weight: 167 lbs Code: 22715-8 01/05/2014 Blood Pressure 1: 124/82 Code: 8480-6 BMI: 25.4 Code: 71327-6 Heart Rate 1: 84 bpm Height: 5'8" Code: 8302-2 Respiratory Rate: 20 bpm Temperatu re: 36.7 (C) / 98.0 (F) Weight: 167 lbs Code: 54321-3 11/09/2013 Blood Pressure 1: 138/82 Code: 8480-6 BMI: 24.5 Code: 78284-3 Heart Rate 1: 84 bpm Height: 5'8" Code: 8302-2 Respiratory Rate: 20 bpm Temperatu re: 37.1 (C) / 98.8 (F) Weight: 161 lbs Code: 02720-8 11/24/2012 Blood Pressure 1: 122/72 Code: 8480-6 BMI: 24.0 Code: 61778-9 Heart Rate 1: 66 bpm Height: 5'8" Code: 8302-2 Respiratory Rate: 20 bpm Temperatu re: 36.5 (C) / 97.7 (F) Weight: 158 lbs Code: 80762-6 11/03/2012 Blood Pressure 1: 130/84 Code: 8480-6 BMI: 23.7 Code: 70521-9 Heart Rate 1: 72 bpm Height: 5'8" Code: 8302-2 Respiratory Rate: 20 bpm Temperatu re: 36.2 (C) / 97.1 (F) Weight: 156 lbs Code: 45885-3 02/25/2012 Blood Pressure 1: 142/84 Code: 8480-6 BMI: 25.1 Code: 10997-1 Heart Rate 1: 68 bpm Height: 5'8" Code: 8302-2 Temperature: 37.2 (C) / 99.0 (F) Weight: 165 lbs Code: 54670-3 10/08/2011 Blood Pressure 1: 126/80 Code: 8480-6 BMI: 24.3 Code: 41711-6 Heart Rate 1: 84 bpm Height: 5'8" Code: 8302-2 Respiratory Rate: 20 bpm Temperatu re: 36.8 (C) / 98.2 (F) Weight: 160 lbs Code: 92960-7 09/24/2011 Blood Pressure 1: 136/80 Code: 8480-6 BMI: 24.3 Code: 69241-9 Heart Rate 1: 84 bpm Height: 5'8" Code: 8302-2 Respiratory Rate: 20 bpm Temperatu re: 36.8 (C) / 98.2 (F) Weight: 160 lbs Code: 14808-9 09/17/2011 Blood Pressure 1: 128/84 Cod e: 8480-6 09/09/2011 Blood Pressure 1: 142/84 Code: 8480-6 BMI: 24.3 Code: 43947-4 Height: 5'8" Code: 8302-2 Temperature: 36.7 (C) / 98.0 (F) Weight: 160 lbs Code : 08695-0 08/29/2010 Blood Pressure 1: 144/84 Code: 8480-6 Heart Rate 1: 72 bpm Temperature: 36.8 (C) / 98.2 (F) Weight: 156 lbs Code: 71001-5 12/12/2009 Blood Pressure 1: 146/88 Code: 8480-6 Heart Rate 1: 76 bpm Temperature: 36.6 (C) / 97.9 (F) Weight: 152 lbs Code: 27683-5 10/30/2009 Blood Pressure 1: 132/70 Code: 8480-6 Heart Rate 1: 80 bpm Temperature: 36.9 (C) / 98.4 (F) Weight: 151 lbs Code: 01970-5 10/01/2009 Blood Pressure 1: 142/86 Code: 8480-6 BMI: 23.0 Code: 41129-0 Heart Rate 1: 84 bpm Height: 5'8" Code: 8302-2 Temperature: 36.9 (C) / 98.4 (F) Weight: 151 lbs Code: 52156-9 Functional Status No Functional Status data Reason For Visit Reason For Visit Effective Dates Notes neck swelling 10/19/2020 follow up 10/01/2020 follow up 09/24/2020 follow up 09/17/2020 follow up 09/14/2020 dvt right leg bone pain 09/12/2020 follow up 04/18/2020 well man exam (65+ years) 10/12/2019 Annual Medic[facility] e Wellness---no recent labs and patient not fasting today follow up 04/25/2019 follow up 04/12/2019 from [facility] well man exam (40-65 years) [...] 10/01/2009 establishing vis it, being treated for [place] Spotted Fever Encounters Encounter Performer Location Codes Date ([id number]) OFFICE/OUTPATIENT VISIT EST Diagnosis: Supraclavicular adenopathy[ICD10: R59.0] Diagnosis: Difficulty swallowing[ICD10: R13.10] Estephanie KEYES [employer] CPT-4: 16889 10/19/2020 ([id number]) OFFICE/OUTPATIENT VISIT EST Diagnosis: On anticoagulant therapy[ICD10: Z79.01] Diagnosis: Acute deep vein thrombosis (DVT) of femoral vein of right lower extremity[ICD10: I82.411] Estephanie KEYES [employer] [facility] CPT-4 : 04152 10/01/2020 ([id number]) OFFICE/OUTPATIENT VISIT EST Diagnosis: Right leg DVT[ICD10: I82.401] Tracie KEYES [employer] [facility] CPT-4: 16070 09/24/2020 ([id number]) OFFICE/OUTPATIENT VISIT EST Diagnosis: Acute deep vein thrombosis (DVT) of femoral vein of right lower extremity[ICD10: I82.411] Diagnosis: On anticoagulant therapy[ICD10: Z79.01] Estephanie KEYES [employer] CPT-4: 96505 09/17/2020 ([id number]) OFFICE/OUTPATIENT VISIT EST Diagnosis: Acute deep vein thrombosis (DVT) of femoral vein of right lower extremity[ICD10: I82.411] Estephanie KEYES DO [facility] CPT-4 : 93771 09/14/2020 ([id number]) OFFICE/OUTPATIENT VISIT EST Diagnosis: Fall down stairs, initial encounter[ICD10: W10.8XXA] Diagnosis: Right leg swelling[ICD10: M79.89] Diagnosis: Right leg pain[ICD10: M79.604] Estephanie KEYES DO [facility] CPT-4: 50028 09/12/2020 ([id number]) OFFICE/OUTPATIENT VISIT EST Diagnosis: Hypertension[ICD10: I10] Diagnosis: Hyperglycemia, unspecified[ICD10: R73.9] Diagnosis: Mixed hyperlipidemia[ICD10: E78.2] Tracie MOHAN ElvinClark MICAH [employer] [facility] CPT-4: 05641 04/18/2020 ([id number]) OFFICE/OUTPATIENT VISIT EST 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 CPT-4: 77590 04/12/2019 ([id number]) PER PM REEVAL EST PAT 65+ YR Diagnosis: Encounter for general adult medical examination without abnormal findings[ICD10: Z00.00] Diagnosis: Essential (primary) hypertension[ICD10: I10] Diagnosis: Hyperglycemia, unspecified[ICD10: R73.9] Tracie GALARZA ElvinClark [employer]AGO [employer] [facility] CPT-4: 00805 02/17/2018 ([id number]) NURSE/OUTPATIENT VISIT EST Diagnosis: Essential (primary) hypertension[ICD10: I10] Diagnosis: Mixed hyperlipidemia[ICD10: E78.2] Diagnosis: Hyperglycemia, unspecified[ICD10: R73.9] Diagnosis: Encounter for screening for other viral diseases[ICD10: Z11.59] Tracie GALARZA ElvinClark [facility] CPT-4: 12993 01/29/2018 ([id number]) OFFICE/OUTPATIENT VISIT EST Diagnosis: Encounter for general adult medical examination without abnormal findings[ICD10: Z00.00] Diagnosis: Mixed hyperlipidemia[ICD10: E78.2] Diagnosis: Essential (primary) hypertension[ICD10: I10] Diagnosis: Impaired fasting glucose[ICD10: R73.01] Diagnosis: Encounter for screening for malignant neoplasm of prostate[ICD10: Z12.5] Tracie GALARZA ElvinClark NIKHILRHIANNANORMAN [employer] [facility] CPT-4: 97475 05/01/2017 ([id number]) OFFICE/OUTPATIENT VISIT EST Diagnosis: URI, ACUTE[ICD10: J06.9] Tracie GALARZA ElvinClark [facility] CPT-4: 32911 04/07/2017 OFFICE/OUTPATIENT VISIT EST Diagnosis: Essential (primary) hypertension[ICD10: I10] Ashley GALARZA ElvinClark [employer] [facility] CPT-4: 75774 09/19/2016 ([id number]) OFFICE/OUTPATIENT VISIT EST Diagnosis: Encounter for general adult medical examination without abnormal findings[ICD10: Z00.00] Diagnosis: Essential (primary) hypertension[ICD10: I10] Diagnosis: Impaired fasting glucose[ICD10: R73.01] Tracie CHAVEZ ElvinClark NIKHILRHIANNANORMAN [employer] [facility] CPT-4: 04683 01/04/2016 ([id number]) OFFICE/OUTPATIENT VISIT EST Diagnosis: Essential (primary) hypertension[ICD10: I10] Diagnosis: Mixed hyperlipidemia[ICD10: E78.2] Diagnosis: Impaired fasting glucose[ICD10: R73.01] Tracie CHAVEZ ElvinClark [employer] [facility] CPT-4: 24562 12/18/2015 ([id number]) PREV VISIT EST AGE 40-64 Diagnosis: Encounter for general adult medical examination without abnormal findings[ICD10: Z00.00] Diagnosis: Essential (primary) hypertension[ICD10: I10] Ashley QuinnJaquelinRalph DURANLINE Lee [facility] C[facility]: 58444 07/20/2015 OFFICE/OUTPATIENT VISIT EST Diagnosis: Mixed hyperlipidemia[ICD10: E78.2] Diagnosis: Impaired fasting glucose[ICD10: R73.01] Diagnosis: Insomnia, unspecified[ICD10: G47.00] Jacque MongeSharonjorge luis [facility] CPT-4: 43106 02/07/2015 ([id number]) OFFICE/OUTPATIENT VISIT EST Diagnosis: Encounter for general adult medical examination without abnormal findings[ICD10: Z00.00] Diagnosis: Essential (primary) hypertension[ICD10: I10] Diagnosis: Mixed hyperlipidemia[ICD10: E78.2] Tracie MOHAN Lee [facility] CPT-4: 43332 02/02/2015 ([id number]) OFFICE/OUTPATIENT VISIT EST Diagnosis: SINUSITIS, ACUTE[ICD9: 461.9] Jacque MongeGil TRACIE Lee [facility] CPT-4: 73451 07/19/2014 ([id number]) OFFICE/OUTPATIENT VISIT EST Diagnosis: Hypotension[ICD9: 458.9] Diagnosis: DYSPEPSIA[ICD9: 536.8] Diagnosis: HYPERTENSION[ICD9: 401.9] Tracie [facility]ZA [facility] CPT-[facility]: 96775 07/06/2014 ([id number]) OFFICE/OUTPATIENT VISIT EST Diagnosis: DIZZINESS/VERTIGO[ICD9: 780.4] Diagnosis: HYPOTENSION[ICD9: 458.9] Diagnosis: MALAISE AND FATIGUE[ICD9: 780.79] Tracie Murillo Lee [facility] CPT-4: 94716 07/04/2014 ([id number]) OFFICE/OUTPATIENT VISIT EST Diagnosis: ARTHRALGIA-MULTIPLE SITES[ICD9: 719.49] Diagnosis: CEPHALGIA[ICD9: 784.0] Diagnosis: Uveitis[ICD9: 364.3] Tracie [facility]vinClark [facility] CPT-[facility]: 99198 06/14/2014 ([id number]) OFFICE/OUTPATIENT VISIT EST Diagnosis: HYPERTENSION[ICD9: 401.9] Diagnosis: OTHER ABNORMAL GLUCOSE[ICD9: 790.29] Tracie KEYES DO [facility] CPT-4: 70116 03/09/2014 ([id number]) OFFICE/OUTPATIENT VISIT EST Diagnosis: OTHER ABNORMAL GLUCOSE[ICD9: 790.29] Tracie KEYES DO [facility] CPT-4: 83318 01/05/2014 ([id number]) OFFICE/OUTPATIENT VISIT EST Diagnosis: ROUTINE MEDICAL EXAM[ICD9: V70.0] Tracie KEYES DO [facility] CPT-4: 19784 11/18/2013 ([id number]) PREV VISIT EST AGE 40-64 Diagnosis: ROUTINE MEDICAL EXAM[ICD9: V70.0] Diagnosis: HYPERLIPIDEMIA NEC/NOS[ICD9: 272.4] Diagnosis: FOREIGN BODY FINGER[ICD9: 915.6] Tracie KEYES DO [facility] CPT-4: 91445 11/09/2013 ([id number]) OFFICE/OUTPATIENT VISIT EST Diagnosis: CERVICALGIA[ICD9: 723.1] Diagnosis: B12 DEFIC ANEMIA NEC[ICD9: 281.1] Diagnosis: DISTURBANCE OF SKIN SENSATION (Paresthesia)[ICD9: 782.0] Tracie KEYES DO [facility] CPT-4: 84549 11/24/2012 OFFICE/OUTPATIENT VISIT EST Diagnosis: Neck pain on left side[ICD9: 723.1] Diagnosis: Tendonitis of elbow, left[ICD9: 727.09] Jacque Lopze TRACIE KEYES DO [facility] CPT-4: 35377 11/03/2012 OFFICE/OUTPATIENT VISIT EST Diagnosis: Oral lesion[ICD9: 528.9] Diagnosis: Herpes zoster[ICD9: 053.9] Diagnosis: FEBRILE ILLNESS[ICD9: 780.60] Liz Randall TRACIE KEYES DO [facility] CPT-4: 51251 02/25/2012 OFFICE/OUTPATIENT VISIT EST Diagnosis: MALAISE AND FATIGUE[ICD9: 780.79] Diagnosis: B12 DEFIC ANEMIA NEC[ICD9: 281.1] Diagnosis: SPOTTED FEVERS[ICD9: 082.0] Diagnosis: SPASM OF MUSCLE[ICD9: 728.85] Tracie CALVONDNORMAN DO [facility] CPT-4: 77525 10/08/2011 ([id number]) OFFICE/OUTPATIENT VISIT EST Diagnosis: MALAISE AND FATIGUE[ICD9: 780.79] Diagnosis: SPOTTED FEVERS[ICD9: 082.0] Diagnosis: B12 DEFIC ANEMIA NEC[ICD9: 281.1] Tracie CALVONDNORMAN [facility] CPT-4: 64622 09/24/2011 ([id number]) OFFICE/OUTPATIENT VISIT EST Diagnosis: B12 DEFIC ANEMIA NEC[ICD9: 281.1] Diagnosis: HYPERTENSION[ICD9: 401.9] Diagnosis: MALAISE AND FATIGUE[ICD9: 780.79] Diagnosis: OTHER ABNORMAL GLUCOSE[ICD9: 790.29] Tracie EKYES DO [facility] CPT-4: 15024 09/17/2011 OFFICE/OUTPATIENT VISIT EST Diagnosis: NONVENOM ARTHROPOD BITE[ICD9: E906.4] Diagnosis: HYPERTENSION[ICD9: 401.9] Tracie CALVO NDER DO [facility] CPT-4: 40745 09/09/2011 PREV VISIT EST AGE 40-64 Tracie OBRIENE R DO [facility] CPT-4: 65323 08/29/2010 ([id number]) OFFICE/OUTPATIENT VISIT, EST Tracie CHAVEZ SClark ORENDER DO [facility] CPT-4: 38829 12/12/2009 ([id number]) OFFICE/OUTPATIENT VISIT, EST Tracie CHAVEZ SClark ORENDER DO [facility] CPT-4: 61977 10/30/2009 ([id number]) OFFICE/OUTPATIENT VISIT, NEW Tracie CHAVEZ SClark OBRIENER DO [facility] CPT-4: 91808 10/01/2009 Plan of Care Planned Activity Notes Codes Status Date Visit Diagnosis Plan: Supraclavicular adenopathy Discu ssion: Will send for stat CT neck chest with contrast and labs at [facility] ICD-9 : 785.6 ICD-10 : R59.0 10/19/2020 Appointment: Estephanie Zaidi WPtel: [phone] [facility] [place] ACUTE ILLNESS 10/19/2020 Patient Education: Patient [...] I82.411 10/01/2020 Appointment: Estephanie Zaidi WPtel: [phone] [facility] US FOLLOW UP 10/01/2020 Patient Education: Patient Medication Summary Completed 10/01/2020 Visit Diagnosis Plan: Right leg DVT Discussion: Contin ue eliquis at 5mg po BID Recheck 1 week Discussed repeating US of RLE at 3mos and staying on eliquis until then Discussed clotting studies after off eliquis for 1month in future ICD-9 : 453.40 ICD-10 : I82.401 09/24/2020 Appointment: Tracie Keyse WPtel: [address] [place], [place] [phone] [place] FOLLOW UP 09/24/2020 Visit Diagnosis Plan: [...] extremity Discussion: Swelling decreasing. F/U 1 w [place] for recheck. ICD-9 : 453.41 ICD-10 : I82.411 09/17/2020 Appointment: Estephanie Zaidi WPtel: [phone] [facility] US FOLLOW UP 09/17/2020 Patient Education: Patient Medication Summary Completed 09/17/2020 Patient Education: Eliquis- [employer] Coupon [id number] https://www.[employer]/samplePopset/resources/getResource/61/g17xcoqy-0zav-125z-74 Completed 09/17/2020 Patient Education: tramadol- [employer] Coupon [id number] https://www.Philt[employer]/resources/getResource/61/cuk69020-eq01-7d28-64 Completed 09/17/2020 Visit Diagnosis Plan: Acute deep [...] 09/14/2020 Appointment: [facility]idi [facility]el[facility] [phone] [facility] [facility] 09/14/2020 Patient Education: Patient Medication Summary Completed 09/14/2020 Visit Diagnosis Plan: Right leg swelling Discussion: W ill send to [facility] for stat doppler to r/o DVT d/t swelling and pain and f/u with results. ICD-9 : 729.81 ICD-10 : M79.89 09/12/2020 Appointment: Estephanie Zaidi WPtel[facility] [phone] [facility] [facility] 09/12/2020 Patient Education: Patient Medication [...] : R73.9 04/18/2020 Appointment: Tracie Keyestel: [phone] [place] [address] [place] FOLLOW UP 04/18/2020 Patient Education: lisinopril- [employer] Coupon [id number] https://www.[employer]/samplemd/resources/getResource/61/340485eg-fsns-62g0-36 Completed 04/18/2020 Visit Diagnosis Plan: Essential (primary) hypertension Discussion: Stable on lisinopril ICD-9 : 401.9 ICD-10 : I10 10/12/2019 Visit Diagnosis Plan: Encounter for [facility] adult medical examination without abnormal findings Discussion: Mediterranean diet Combinati on of cardio and weight bearing exercise Will return for fasting lab next week ICD-9 : V70.0 ICD-10 : Z00.00 10/12/2019 Visit Diagnosis Plan: Hyperglycemia, unspecified Discu ssion: Will return for HbA1C next week ICD-9 : 790.29 ICD-10 : R73.9 10/12/2019 Appointment: Tracie Keyestel: [phone] INSIDE Annual Well Visit 10/12/2019 Appointment: Viridiana Lima [address] FOLLOW UP 05/16/2019 Visit Diagnosis Plan: [...] : W55.03XA 04/25/2019 Appointment: Tracie Keyes WPtel: [address] [place], [place] [id number] Hospital Follow Up 04/25/2019 Patient Education: nystatin- [employer] Coupon [id number] https://www.Philt[employer]/samplemd/resources/getResource/61/07140vz6-3843-60g9-3i Completed 04/25/2019 Visit Diagnosis Plan: Submandibular gland [...] : K11.1 04/12/2019 Appointment: Tracie Keyes WPtel: [address] [place], [place] [phone] 04/12/2019 Appointment: Tracie Keyes WPtel: [address] [place] [address] LM CANCELED 08/09/2018 Visit Diagnosis Plan: Essential (primary) hypertension Discussion: Stable ICD-9 : 401.9 ICD-10 : I10 02/17/2018 Visit Diagnosis Plan: Encounter for gene [facility] adult medical examination without abnormal findings Discussion: Lab discussed Refuses prosta te check Refuses colonoscopy Will check with pharmacy on Shingrix/Flu shot and Prevnar ICD-9 : V70.0 ICD-10 : Z00.00 02/17/2018 Visit Diagnosis Plan: Hyperglycemia, unspecified Discu ssion: Wants to focus on diet/exercise and recheck in 6mos ICD-9 : 790.29 ICD-10 : R73.9 02/17/2018 Appointment: Tracie Keyes WPtel: [address] [place], [place] [address] Annual Well Visit 02/17/2018 Appointment: Tracie Keyes WPtel: [address] [place], [place] [phone] US LAB 01/29/2018 Appointment: Tracie Keyes WPtel: [address] [place], [place] [phone] US LAB 05/01/2017 Patient Education: Patient Medication [...] Rest, Fluids... 04/07/2017 Appointment: Tracie Keyes WPtel: [address] [place] [address] ACUTE ILLNESS 04/07/2017 Patient Education: Patient Medication Summary Completed 04/07/2017 Visit Plan: Had meds refilled for 6 joseph hs the other day. RTC 6 months Described s/s of heart disease that he would need to report for to us or ER/UC. 09/19/2016 Appointment: Ashley Crenshaw WPtel: [address] [place], [place] [phone] [place] 09/18 lm`sl FOLLOW UP 09/19/2016 Patient Education: Patient Medication Summary Completed 09/19/2016 Appointment: Tracie Keyes WPtel: [address] [place], [place] [phone] US LAB 01/04/2016 Patient Education: Patient Medication Summary Completed 01/04/2016 Visit Plan: Will get flu shot at work Up date fasting lab 12/18/2015 Appointment: Tracie Keyes WPtel: [address] [place], [place] [phone] 12/16 lm~sl FOLLOW UP 12/18/2015 Patient Education: Patient Medication Summary Completed 12/18/2015 Visit Plan: Pt declined rectal/prostate exam. Encouraged to get colonoscopy Plan labs for fall 2015 Continue on current meds but send in home B/P since today's B/P is elevated to see if dosage change is indicated. RTC in 6 months 07/20/2015 Appointment: Ashley Crenshaw WPtel: [address] [place], [place] [phone] 07/18 lm ~sl Annual Well Visit 07/20/2015 Patient Education: Patient Medication Summary Completed 07/20/2015 Visit Plan: Resume BP med Resume Metform in( has been off > 9 months) Add HgbA1C to labs drawn last week, Trial of Selinor for sleep. Will let us know how he does with it. 02/07/2015 Appointment: Jacque Lopez WPtel: [address] [place], [place] [phone] 02/06/15 cn....appt confirmed cn FOLLOW UP 02/07/2015 Patient Education: Patient Medication Summary Completed 02/07/2015 Patient Education: [facility] - [employer]aving [employer] - Lisinopril - 18-64 - Dynamic Portal ID Completed 02/07/2015 Appointment: Tracie Keyes WPtel: [address] [place], [place] [phone] LAB 02/02/2015 Patient Education: Patient Medication Summary Completed 02/02/2015 Appointment: Jacque Lopez WPtel: [address] [place], [place] [phone] ACUTE ILLNESS 07/19/2014 Patient Education: Patient Medication Summary Completed 07/19/2014 Visit Plan: Restart Diltiazem Continue t o hydrate Call in 3 days on how doing 07/06/2014 Appointment: Tracie Keyes WPtel: [address] [place], [place] [phone] 07/05 appt confirmed cn FOLLOW UP 07/07/19 Patient Education: Patient Medication Summary Completed 07/06/2014 Visit Plan: Hold lisinopril hct Hydrate Recheck 2 days Meclizine 25mg q HS Hold metformin Call in AM 07/04/2014 Appointment: Tracie Keyestel: [address] [place], [place] [phone] FOLLOW UP 07/04/2014 Patient Education: Patient Medication Summary Completed 07/04/2014 Appointment: Tracie Keyes WPtel: [address] [place], [place] [phone] ACUTE ILLNESS 06/14/2014 Patient Education: Patient Medication Summary Completed 06/14/2014 Appointment: Tracie Keyestel: [address] [place] [address] FOLLOW UP 03/09/2014 Patient Education: Patient Medication Summary Completed 03/09/2014 Visit Plan: Continue metformin at curren t dose Accuchecks daily alternating times Diabetic diet info given Check CMP with HbA1C in 2mos then fwup 01/05/2014 Appointment: Tracie Keyes WPtel: [address] [place], [place] [phone] FOLLOW UP 01/05/2014 Patient Education: Patient Medication Summary Completed 01/05/2014 Visit Plan: Did not need lab so will jus t fwup as scheduled 01/03/2014 Appointment: Tracie Keyes WPtel: [address] [place], [place] [phone] 01/03/2014 Patient Education: Patient Medication Summary Completed 01/03/2014 Appointment: Tracie Keyes WPtel: [address] [place], [place] [phone] LAB 11/18/2013 Patient Education: Patient Medication Summary Completed 11/18/2013 Visit Plan: Continue current meds Remova l of splinter as above Keflex for 1 week Continue current meds Fwup next week for fasting lab including PSA 11/09/2013 Appointment: Tracie Keyestel: [address] [place], [place] [phone] 11/08 Annual Well Visit 11/09/2013 Patient Education: Patient Medication Summary Completed 11/09/2013 Patient Education: [facility] - Saving AutoInj - Lisinopril - 18+ - Dynamic Portal ID Completed 11/09/2013 Appointment: Tracie Keyes WPtel: [address] [place], [place] [id number] 11/23 left [facility] FOLLOW UP 11/24/2012 Patient Education: Patient Medication Summary Completed 11/24/2012 Appointment: Jacque Lopez WPtel: [address] [place], [place] [phone] FOLLOW UP 11/10/2012 Appointment: Jacque Lopez WPtel: [address] [place], [place] [phone] ACUTE ILLNESS 11/03/2012 Patient Education: Patient Medication Summary Completed 11/03/2012 Appointment: Liz Randall WPtel: [address] [place], [place] [id number] ACUTE ILLNESS 02/25/2012 Patient Education: Patient Medication Summary Completed 02/25/2012 Visit Plan: Finish abx Continue B12 OMT done Add Skelaxin 800mg q HS 10/08/2011 Appointment: Tracie Keyes WPtel: [address] [place], [place] [phone] voicemail FOLLOW UP 10/08/2011 Patient Education: Patient Medication Summary Completed 10/08/2011 Appointment: Tracie Keyes WPtel: [address] [place], [place] [phone] FOLLOW UP 09/24/2011 Patient Education: Patient Medication Summary Completed 09/24/2011 Appointment: Tracie Keyes WPtel: [address] [place], [place] [phone] [place] LAB 09/17/2011 Patient Education: Patient Medication [...] fasting labs. 09/09/2011 Appointment: Liz Randall WPtel: [address] [place] [address] ACUTE ILLNESS 09/09/2011 Patient Education: Patient Medication Summary Completed 09/09/2011 Visit Plan: Change lisinopril hct to 20/ 12.5mg 2 daily and continue cardizem Check fasting lab--drawn today 08/29/2010 Appointment: Tracie Keyes WPtel: [address] [place] [address] FOLLOW UP 08/29/2010 Patient Education: Patient Medication Summary Completed 08/29/2010 Appointment: Tracie Keyes WPtel: [address] [place] [address] FOLLOW UP 12/12/2009 Patient Education: Patient Medication Summary Completed 12/12/2009 Appointment: Tracie Keyes WPtel: [address] [place] [address] FOLLOW UP 11/27/2009 Visit Plan: Finish Abx B12 given Start d aily 1000mcg B12 Cont allopurinol and check B12 and uric acid in 1mo. 10/30/2009 Appointment: Tracie Keyes WPtel: [address] [place] [address] FOLLOW UP 10/30/2009 Patient Education: Patient Medication Summary Completed 10/30/2009 Appointment: Tracie Keyes WPtel: [address] [place] [address] [place] NEW PATIENT 10/01/2009 Patient Education: Patient Medication Summary Completed 10/01/2009 Referral: Sav Olivo WPtel: [facility] [address] Referral Initiated Instructions Comment . Supportive [...]
--- OUTSIDE RECORDS SUMMARY | 2020-11-05 09:36 | XMS REPORT | CCD ---
Author Author Josh Keyes D.O. Organization [facility] Address [address] [place] [address] Phone Care Team Providers Care Hospitality Manager Name Role Phone Tracie Keyes D.O., PP Unavailable CCM Unavailable Summary Purpose Interface Exchange Insurance Providers Payer name Policy type / Coverage type Covered democrat ID Effective Begin Date Effective End Date WPS MEDICARE PART B [place] Medicare Part B [id number] Unknown [facility] Medicare Part B [id number] 2019 Un known Family history Sister Diagnosis Age At Onset seizure disorder Unknown Father Diagnosis Age At Onset Diabetes mellitus Type 2 Unknown Mother Diagnosis Age At Onset Diabetes mellitus Type 2 Unknown Social History Social History Element Codes Description Effective Dates Tobacco history SNOMED CT: 55189705 Currently smokes tobacco Marital status Unknown 10/01/2009 [...] Problems Condition Codes Effective Dates Condition Status Acute deep vein thrombosis (DVT) of femoral vein of [facility] lower extremity ICD- 10: I82.411 ICD-9: 453.41 [...] nodules ICD-10: R91.8 ICD-9: 793.19 04/25/2019 Active Dysphagia ICD-10: R13.10 ICD-9: 787.20 04/12/2019 Active 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 ICD-9: [...] E906.4 09/09/2011 Active Hypertension Unknown 10/01/2009 Active [place] spotted fever Unknown 07/24/2009 Act [place] B12 DEFIC ANEMIA NEC ICD-9: 281.1 10/01/2009 Active Hyperuricemia ICD-9: 790.6 10/01/2009 Active Myalgia ICD-9: 729.1 10/01/2009 Active [place] spotted fever ICD-9: 082.0 10/01/2009 Act [place] Medications Medication Codes Instructions Start Date Stop Date Status Fill Instructions Eliquis 5 mg tablet RxNorm: 0576892 Take 1 Tablet(s) Oral two ti mes a day 09/19/2020 12/17/2020 Active tramadol 50 mg tablet RxNorm: 628864 Take 1 Tablet(s) O ral Q8H as needed for pain Take with 2 tylenol 09/17/2020 No Stop Date Active Eliquis 5 mg tablet RxNorm: 9829028 Take 2 Tablet(s) Oral two ti mes a day 09/17/2020 No Stop Date Active lisinopril 40 mg tablet RxNorm: 357380 1 Tablet(s) Oral QD repl aces 20mg dose 04/18/2020 10/15/2020 Active Men's Multivitamin 400 mcg-20 mcg-300 mcg tablet RxNorm: 1 Tablet(s) Oral QD 04/18/2020 No Stop Date Active lisinopril 20 mg tablet RxNorm: 294824 1 Tablet(s) Oral QD 03/29/19 21 04/17/2020 Inactive Due for his 6 month appointm ent lisinopril 20 mg tablet RxNorm: 876000 TAKE ONE (1) TAB LET BY MOUTH DAILY... Needs fwup 10/03/2019 11/02/2019 Inactive lisinopril 20 mg tablet RxNorm: 944102 TAKE ONE (1) TABLET BY M OUTH DAILY... 10/03/2019 10/02/2019 Inactive Zithromax 500 mg tablet RxNorm: 173598 1 Tablet(s) Oral QD 04/25/19 20 05/02/2019 Inactive [AttnRPh: Saving apply/adjud icate RxGRP:SG20 RxBIN:[id number] RxPCN: ID#:[id number]] lisinopril 20 mg tablet RxNorm: 880832 1 Tablet(s) Oral QD 04/25/19 20 10/02/2019 Inactive nystatin 100,000 unit/mL oral suspension RxNorm: 545058 5 Milliliter(s) Oral four times a day swish, gargle and spit 04/25/2019 05/09/2019 Inactive diltiazem ER (XR/XT) 120 mg capsule,extended release 2 4 hr, controlled RxNorm: 716412 Capsule(s) 1 Capsule(s) PO QD 06/10/2018 10/11/2019 Inactive [SAVINGS FOR UNINSURED PATIENTS -- BIN:336318, PCN: ASPROD1, Group: AME08, ID# [id number], Process claim through [employer], for questions: . THIS IS NOT INSURANCE.] lisinopril 20 mg-hydrochlorothiazide 12.5 mg tablet RxNorm: 067171 1 Tablet(s) PO QAM 06/10/2018 10/11/2019 Inactive [AttnRPh: Saving apply/adjudicate RxGRP:SG20 RxBIN:[id number] RxPCN: ID#:[id number]] lisinopril 20 mg-hydrochlorothiazide 12.5 mg tablet RxNorm: 787903 1 Tablet(s) PO QAM 05/06/2017 01/30/2018 Inactive [AttnRPh: Saving apply/adjudicate RxGRP:SG20 RxBIN:[id number] RxPCN: ID#:[id number]] diltiazem ER (XR/XT) 120 mg capsule,extended release 2 4 hr, controlled RxNorm: 265062 Capsule(s) 1 Capsule(s) PO QD 05/06/2017 01/30/2018 Inactive [SAVINGS FOR UNINSURED PATIENTS -- BIN:886043, PCN: ASPROD1, Group: AME08, ID# [id number], Process claim through [employer], for questions: . THIS IS NOT INSURANCE.] diltiazem ER (XR/XT) 120 mg capsule,extended release 2 4 hr, controlled RxNorm: 421378 Capsule(s) 1 Capsule(s) PO QD 09/16/2016 03/14/2017 Inactive [SAVINGS FOR UNINSURED PATIENTS -- BIN:338662, PCN: ASPROD1, Group: AME08, ID# [id number], Process claim through [employer], for questions: . THIS IS NOT INSURANCE.] lisinopril 20 mg-hydrochlorothiazide 12.5 mg tablet RxNorm: 924363 1 Tablet(s) PO QAM 09/16/2016 03/14/2017 Inactive [AttnRPh: Saving apply/adjudicate RxGRP:SG20 RxBIN:[id number] RxPCN: ID#:[id number]] diltiazem ER (XR/XT) 120 mg capsule,extended release,control led RxNorm: 789226 1 Capsule(s) PO QD 04/09/2016 10/11/2019 Inactive [SAVINGS FOR UN INSURED PATIENTS -- BIN:531040, PCN: ASPROD1, Group: AME08, ID# [id number], Process claim through [employer], for questions: . THIS IS NOT INSURANCE.] diltiazem ER (XR/XT) 120 mg capsule,extended release,control led RxNorm: 514394 1 Capsule(s) PO QD 04/09/2016 09/15/2016 Inactive [SAVINGS FOR UN INSURED PATIENTS -- BIN:245561, PCN: ASPROD1, Group: AME08, ID# [id number], Process claim through [employer], for questions: . THIS IS NOT INSURANCE.] lisinopril 20 mg-hydrochlorothiazide 12.5 mg tablet RxNorm: 093577 1 Tablet(s) PO QAM 12/10/2015 06/06/2016 Inactive [AttnRPh: Saving apply/adjudicate RxGRP:SG20 RxBIN:[id number] RxPCN: ID#:[id number]] diltiazem ER (XR/XT) 120 mg capsule,extended release,control led RxNorm: 855955 1 Capsule(s) PO QD 02/07/2015 02/01/2016 Inactive [SAVINGS FOR UN INSURED PATIENTS -- BIN:243431, PCN: ASPROD1, Group: AME08, ID# [id number], Process claim through [employer], for questions: . THIS IS NOT INSURANCE.] lisinopril 20 mg-hydrochlorothiazide 12.5 mg tablet RxNorm: 163011 1 Tablet(s) PO QAM 02/07/2015 12/09/2015 Inactive [AttnRPh: Saving apply/adjudicate RxGRP:SG20 RxBIN:[id number] RxPCN: ID#:[id number]] metformin ER 1,000 mg 24 hr tablet,extended release RxNorm: 434270 1 Tablet(s) PO QD 02/07/2015 07/19/2015 Inactive [SAVINGS FOR UNI NSURED PATIENTS -- BIN:445484, PCN: ASPROD1, Group: AME08, ID# [id number], Process claim through [employer], for questions: . THIS IS NOT INSURANCE.] diltiazem ER (XR/XT) 120 mg capsule,extended release,control led RxNorm: 511669 1 Capsule(s) PO QD 12/28/2014 02/06/2015 Inactive [SAVINGS FOR UN INSURED PATIENTS -- BIN:985205, PCN: ASPROD1, Group: AME08, ID# [id number], Process claim through [employer], for questions: . THIS IS NOT INSURANCE.] lisinopril 20 mg-hydrochlorothiazide 12.5 mg tablet RxNorm: 276715 1 Tablet(s) PO QAM 11/20/2014 10/11/2019 Inactive cefdinir 300 mg capsule RxNorm: 087934 2 Capsule(s) PO QD 07/19/2014 07/28/2014 Inactive [SAVINGS FOR NON-COVERED DRUGS -- BIN: 3585, PCN: ASPROD1, Group: XXXXX, ID# [id number], Questions: . THIS IS NOT INSURANCE.] meclizine 25 mg tablet RxNorm: 692909 1 Tablet(s) PO QHS 07/04/2014 0 10/31/2014 Inactive [SAVINGS FOR NON-COVERED DRUGS -- BIN: 3585, PCN: ASPROD1, Group: XXXXX, ID# [id number], Questions: . THIS IS NOT INSURANCE.] allopurinol 300 mg tablet RxNorm: 303072 1 Tablet(s) PO QD 06/17/19 15 06/15/2014 Inactive allopurinol 300 mg tablet RxNorm: 821867 1 Tablet(s) PO QD 06/17/19 15 02/06/2015 Inactive [SAVINGS FOR NON-COVERED TATYANA GS -- BIN:939747, PCN: ASPROD1, Group: XXXXX, ID# [id number], Questions: . THIS IS NOT INSURANCE.] naproxen 500 mg tablet RxNorm: 887341 1 Tablet(s) PO BID 06/16/2014 0 07/19/2015 Inactive [SAVINGS FOR NON-COVERED DRUGS -- BIN: 3585, PCN: ASPROD1, Group: XXXXX, ID# [id number], Questions: . THIS IS NOT INSURANCE.] metformin ER 1,000 mg 24 hr tablet,extended release RxNorm: 314352 1 Tablet(s) PO QD 03/14/2014 02/06/2015 Inactive [SAVINGS FOR UNI NSURED PATIENTS -- BIN:410255, PCN: ASPROD1, Group: AME08, ID# [id number], Process claim through [employer], for questions: . THIS IS NOT INSURANCE.] metformin ER 500 mg tablet,extended release 24hr RxNorm: 860 975 1 Tablet(s) PO QD 01/05/2014 03/13/2014 Inactive [SAVINGS FOR UNI NSURED PATIENTS -- BIN:550144, PCN: ASPROD1, Group: AME08, ID# [id number], Process claim through [employer], for questions: . THIS IS NOT INSURANCE.] metformin ER 500 mg tablet,extended release 24hr RxNorm: 860 975 1 Tablet(s) PO QD 11/28/2013 01/04/2014 Inactive [SAVINGS FOR UNI NSURED PATIENTS -- BIN:369594, PCN: ASPROD1, Group: AME08, ID# [id number], Process claim through [employer], for questions: . THIS IS NOT INSURANCE.] Keflex 500 mg capsule RxNorm: 360806 1 Capsule(s) PO TID 11/09/2013 0 11/15/2013 Inactive [SAVINGS FOR UNINSURED PATIENTS -- BIN:0 83804, PCN: ASPROD1, Group: AME08, ID# [id number], Process claim through [employer], for questions: . THIS IS NOT INSURANCE.] diltiazem ER (XR/XT) 120 mg capsule,extended release,control led RxNorm: 712121 1 Capsule(s) PO QD 11/09/2013 11/03/2014 Inactive [SAVINGS FOR UN INSURED PATIENTS -- BIN:325634, PCN: ASPROD1, Group: AME08, ID# [id number], Process claim through [employer], for questions: . THIS IS NOT INSURANCE.] lisinopril 20 mg-hydrochlorothiazide 12.5 mg tablet RxNorm: 545077 2 Tablet(s) PO QAM 11/09/2013 11/20/2014 Inactive [AttnRPh: Saving apply/adjudicate RxGRP:SG20 RxBIN:[id number] RxPCN: ID#:[id number]] diltiazem ER (XR/XT) 120 mg capsule,extended release,control led RxNorm: 856657 1 Capsule(s) PO QD -need labs 10/31/2013 11/08/2013 Inactive [DELICIA INGS FOR UNINSURED PATIENTS -- BIN:851402, PCN: ASPROD1, Group: AME08, ID# [id number], Process claim through [employer], for questions: . THIS IS NOT INSURANCE.] lisinopril 20 mg-hydrochlorothiazide 12.5 mg tablet RxNorm: 069555 2 Tablet(s) PO QAM 10/31/2013 11/08/2013 Inactive [AttnRPh: Saving apply/adjudicate RxGRP:SG20 RxBIN:[id number] RxPCN: ID#:[id number]] diltiazem ER (XR/XT) 120 mg capsule,extended release,control led RxNorm: 769428 1 Capsule(s) PO QD -need labs 09/12/2013 10/11/2013 Inactive [DELICIA INGS FOR UNINSURED PATIENTS -- BIN:846467, PCN: ASPROD1, Group: AME08, ID# [id number], Process claim through [employer], for questions: . THIS IS NOT INSURANCE.] Omnicef 300 mg capsule RxNorm: 492030 2 Capsule(s) PO QD 11/24/2012 0 11/08/2013 Inactive naproxen 500 mg tablet RxNorm: 910160 1 Tablet(s) PO TID 11/04/2012 0 11/03/2012 Inactive allopurinol 100 mg tablet RxNorm: 595592 1 Tablet(s) PO BID 013 11/08/2013 Inactive naproxen 500 mg tablet RxNorm: 888837 1 Tablet(s) PO TID 11/04/2012 0 11/08/2013 Inactive diltiazem ER (XR/XT) 120 mg capsule,extended release,control led RxNorm: 385340 1 Capsule(s) PO QD 08/02/2012 09/12/2013 Inactive lisinopril 20 mg-hydrochlorothiazide 12.5 mg tablet RxNorm: 877449 2 Tablet(s) PO QAM 08/02/2012 07/27/2013 Inactive acyclovir 800 mg tablet RxNorm: 376267 1 Tablet(s) PO D Take 1 tablet by mouth 5 times daily 02/26/2012 11/02/2012 Inactive acyclovir 800 mg tablet RxNorm: 837728 1 Tablet(s) PO D 02/25/2012 Inactive clindamycin 300 mg capsule RxNorm: 116475 1 Capsule(s) PO TID 02/2403/02/2012 Inactive lisinopril-hydrochlorothiazide 20 mg-12.5 mg tablet RxNorm: 097074 2 Tablet(s) PO QAM 01/30/2012 08/01/2012 Inactive diltiazem ER (XR/XT) 120 mg capsule,extended release,control led RxNorm: 671254 1 Capsule(s) PO QD 01/30/2012 08/01/2012 Inactive lisinopril-hydrochlorothiazide 20 mg-12.5 mg tablet RxNorm: 473274 2 Tablet(s) PO QAM 01/30/2012 10/11/2019 Inactive diltiazem ER (XR/XT) 120 mg capsule,extended release,control led RxNorm: 575331 1 Capsule(s) PO QD 01/30/2012 10/11/2019 Inactive Culturelle 10 billion cell capsule RxNorm: 595905 1 Capsule(s) PO Q D 10/16/2011 02/24/2012 Inactive Omnicef 300 mg capsule RxNorm: 158485 2 Capsule(s) PO QD 09/24/2011 0 11/02/2012 Inactive diltiazem ER (XR/XT) 120 mg capsule,extended release,control led RxNorm: 443421 1 Capsule(s) PO QD 09/09/2011 01/29/2012 Inactive Culturelle 10 billion cell Cap RxNorm: 721106 1 Capsule (s) PO BID take a few hours after Doxycycline. Probiotic 09/09/2011 09/28/2011 Inactive lisinopril-hydrochlorothiazide 20 mg-12.5 mg tablet RxNorm: 238293 2 Tablet(s) PO QAM 09/09/2011 01/29/2012 Inactive doxycycline hyclate 100 mg Tab RxNorm: 3495176 1 Tablet( s) PO BID antibiotic. (may make a little sensitive to sunburn) 09/09/2011 09/18/2011 Inactiv e lisinopril-hydrochlorothiazide 20 mg-12.5 mg Tab RxNorm: 197 886 2 Tablet(s) PO QAM Due for yearly check-up 09/08/2011 09/08/2011 Inactive diltiazem ER (XR/XT) 120 mg Continuous Release Cap RxNorm: 8 78338 1 Capsule(s) PO QD Due for yearly check-up. 09/08/2011 09/08/2011 Inactive diltiazem ER (XR/XT) 120 mg Continuous Release Cap RxNorm: 8 50635 1 Capsule(s) PO QD 08/29/2010 08/23/2011 Inactive lisinopril-hydrochlorothiazide 20 mg-12.5 mg Tab RxNorm: 197 886 2 Tablet(s) PO QAM 08/29/2010 08/23/2011 Inactive lisinopril-hydrochlorothiazide 20 mg-25 mg Tab RxNorm: 893101 1 Tablet(s) PO QD 08/21/2010 08/28/2010 Inactive allopurinol 100 mg tablet RxNorm: 120189 1 Tablet(s) PO QD 04/22/19 11 08/28/2010 Inactive allopurinol 100 mg Tab RxNorm: 769270 1 Tablet(s) PO QD 12/18/2009 Inactive Allopurinol 100 mg Tab RxNorm: 437932 1 Tablet(s) PO QD 12/12/2009 Inactive Allopurinol 100 mg Tab RxNorm: 451285 1 Tablet(s) PO QD 10/30/2009 Inactive Omnicef 300 mg Cap RxNorm: 383224 2 Capsule(s) PO QD 10/01/200910/29 Inactive Allopurinol 100 mg Tab RxNorm: 477183 1 Tablet(s) PO QD 10/01/2009 Inactive Vitamin D3 oral RxNorm: 2418 oral 04/18/2020 Active Vitamin C oral RxNorm: 1151 oral 04/18/2020 Active Vitamin B12 1000mcg Tablet RxNorm: 1 Tablet(s) PO QD 08/29/2010 Inactive lisinopril 20 mg-hydrochlorothiazide 12.5 mg tablet RxNorm: 705951 1 Tablet(s) PO QAM 11/20/2014 11/19/2014 Inactive Medrol (Sid) 4 mg tablets in a dose pack RxNorm: 997075 Tablet(s) PO as directed 11/09/2013 11/08/2013 Inactive Omnicef 300 mg Cap RxNorm: 476126 2 Capsule(s) PO QD 09/24/201112/11 Inactive Fish Oil 1,000 mg Cap RxNorm: 1 Capsule(s) PO QD 11/09/20132013 Inactive diltiazem ER (XR/XT) 120 mg Continuous Release Cap RxNorm: 8 79721 1 Capsule(s) PO QD 08/29/2010 08/28/2010 Inactive Culturelle 10 billion cell capsule RxNorm: 305137 1 Capsule(s) PO Q D 11/03/2012 11/02/2012 Inactive metformin ER 500 mg tablet,extended release 24hr RxNorm: 860 975 1 Tablet(s) PO QD 11/28/2013 11/27/2013 Inactive Lisinopril Oral RxNorm: Oral 10/01/2009 10/01/2009 Inactive Vitamin B12 1000mcg Tablet RxNorm: 1 Tablet(s) PO QD 12/18/2015 Inactive Vitamin B12 1000mcg Tablet RxNorm: 1 Tablet(s) PO QD 11/09/2013 Inactive lisinopril-hydrochlorothiazide 20 mg-25 mg Tab RxNorm: 378402 1 Tablet(s) PO QD 08/21/2010 2010 Inactive metformin ER 1,000 mg 24 hr tablet,extended release RxNorm: 175648 1 Tablet(s) PO QD 03/14/2014 03/13/2014 Inactive Fish Oil 1,000 mg capsule RxNorm: 1 Capsule(s) PO QD 12/18/2015 Inactive Medication Administered No Medication Administered data Immunizations Vaccine Codes Date Status B12 Unknown 09/24/2011 Results Observation Observation Code Item Item Code Result Date S ervice Location GLYCOSYLATED HEMOGLOBIN TEST 14452 Hgb A1c 78421-1 5.7 % 0 04/18/2020 Unknown GFR CALC 3065220 GFR Non Afr Amr >60 mL/min 04/18/2020 Un known GFR CALC 0084297 GFR Afr Amr >60 mL/min 04/18/2020 Unknow n COMPREHENSIVE METABOLIC 96749 AST 35 U/L 2020 Unknown COMPREHENSIVE METABOLIC 21029 ALT 45 U/L 2020 Unknown COMPREHENSIVE METABOLIC 16025 BUN 10 mg/dL 2020 Unknown COMPREHENSIVE METABOLIC 83376 ALBUMIN 4.3 g/dL 2020 Unknown COMPREHENSIVE METABOLIC 97594 CHLORIDE 101 mmol/L 04/18 Unknown COMPREHENSIVE METABOLIC 70459 Bili Total 0.8 mg/dL 04/18 Unknown COMPREHENSIVE METABOLIC 71617 ALK PHOS 73 U/L 2020 Unknown COMPREHENSIVE METABOLIC 18742 SODIUM 137 mmol/L 04/18 Unknown COMPREHENSIVE METABOLIC 15319 CREATININE 0.99 mg/dL 03/27 Unknown COMPREHENSIVE METABOLIC 70593 CALCIUM 9.1 mg/dL 2020 Unknown COMPREHENSIVE METABOLIC 60909 POTASSIUM 4.3 mmol/L 04/18 Unknown COMPREHENSIVE METABOLIC 46780 Total Protein 7.0 g/dL Unknown COMPREHENSIVE METABOLIC 98455 Glucose 133 mg/dL 2020 Unknown COMPREHENSIVE METABOLIC 45834 Bicarbonate 26 mmol/L 03/27 Unknown COMPREHENSIVE METABOLIC 76851 AGAP 10 mmol/L 2020 Unknown MEAN GLUC 0983082 Calc Mean Gluc 117 mg/dL 04/18/2020 Unkn own LIPID GROUP 12060 Cholesterol 187 mg/dL 04/18/2020 Unkno wn LIPID GROUP 81972 Triglyceride 87 mg/dL 04/18/2020 Unkn own [facility] 34185 HDL CHOLESTEROL 59 mg/dL 04/18/2020 U nknown LIPID GROUP 63323 Chol/HDL Ratio 3.17 ratio 04/18/2020 U nknown LIPID GROUP 10164 NON-HDL Chol 128 mg/dL 04/18/2020 Unkn own LIPID GROUP 66669 LDL Cholesterol 111 mg/dL 04/18/2020 U nknown HEPATITIS C ANTIBODY 79958 Hepatitis C Ab Non-Reactive 02/01/2018 Unknown GLYCOSYLATED HEMOGLOBIN TEST 31829 Hgb A1c 54874-9 6.2 % 1 04/01/2017 Unknown GFR CALC 2648996 GFR Afr Amr >60 mL/min 01/29/2018 Unknow n GFR CALC 1609645 GFR Non Afr Amr >60 mL/min 01/29/2018 Un known COMPREHENSIVE METABOLIC 85958 AST 17 U/L 2017 Unknown COMPREHENSIVE METABOLIC 33681 ALT 17 U/L 2017 Unknown COMPREHENSIVE METABOLIC 87223 BUN 12 mg/dL 2017 Unknown COMPREHENSIVE METABOLIC 00362 ALBUMIN 4.6 g/dL 2017 Unknown COMPREHENSIVE METABOLIC 19705 CHLORIDE 101 mmol/L 01/29 Unknown COMPREHENSIVE METABOLIC 66209 Bili Total 0.9 mg/dL 01/29 Unknown COMPREHENSIVE METABOLIC 71388 ALK PHOS 57 U/L 2017 Unknown COMPREHENSIVE METABOLIC 63914 SODIUM 136 mmol/L 01/29 Unknown COMPREHENSIVE METABOLIC 93817 CREATININE 1.00 mg/dL 08/2017 Unknown COMPREHENSIVE METABOLIC 07838 CALCIUM 9.6 mg/dL 2017 Unknown COMPREHENSIVE METABOLIC 70268 POTASSIUM 4.2 mmol/L 01/29 Unknown COMPREHENSIVE METABOLIC 36053 Total Protein 6.9 g/dL Unknown COMPREHENSIVE METABOLIC 99537 Glucose 128 mg/dL 2017 Unknown COMPREHENSIVE METABOLIC 90815 Bicarbonate 27 mmol/L 08/2017 Unknown COMPREHENSIVE METABOLIC 98144 AGAP 8 mmol/L 2017 Unknown LIPID GROUP 54160 Cholesterol 168 mg/dL 01/29/2018 Unkno wn LIPID GROUP 67030 Triglyceride 82 mg/dL 01/29/2018 Unkn own LIPID GROUP 03955 HDL CHOLESTEROL 43 mg/dL 01/29/2018 U nknown LIPID GROUP 85917 Chol/HDL Ratio 3.91 ratio 01/29/2018 U nknown LIPID GROUP 01794 NON-HDL Chol 125 mg/dL 01/29/2018 Unkn own LIPID GROUP 79143 LDL Cholesterol 109 mg/dL 01/29/2018 U nknown MEAN GLUC 0204955 Calc Mean Gluc 131 mg/dL 01/29/2018 Unkn own LIPID GROUP 48245 Cholesterol 164 mg/dL 05/01/2017 Unkno wn LIPID GROUP 78796 Triglyceride 131 mg/dL 05/01/2017 Unkn own LIPID GROUP 72110 HDL CHOLESTEROL 45 mg/dL 05/01/2017 U nknown LIPID GROUP 46768 Chol/HDL Ratio 3.64 ratio 05/01/2017 U nknown LIPID GROUP 64895 NON-HDL Chol 119 mg/dL 05/01/2017 Unkn own LIPID GROUP 11735 LDL Cholesterol 93 mg/dL 05/01/2017 U nknown COMPLETE BLOOD COUNT 9102538 WBC 4.9 10e9/L 05/02/19 18 Unknown COMPLETE BLOOD COUNT 9958518 RBC 4.31 10e12/L 2017 Unknown COMPLETE BLOOD COUNT 2945042 HEMOGLOBIN 14.3 g/dL 05/02/19 18 Unknown COMPLETE BLOOD COUNT 0473320 HEMATOCRIT 42.8 % 05/02/19 18 Unknown COMPLETE BLOOD COUNT 6508748 MCV 99.3 fL 8 Unknown COMPLETE BLOOD COUNT 7361629 MCH 33.2 pg 8 Unknown COMPLETE BLOOD COUNT 2761534 MCHC 33.4 g/dL 8 Unknown COMPLETE BLOOD COUNT 9580762 PLATELET COUNT 241 10e9/L 10/2017 Unknown COMPLETE BLOOD COUNT 1068257 Mean Plt Volume 11.0 fL 10/2017 Unknown COMPLETE BLOOD COUNT 3456979 Neut Auto 56.6 % 8 Unknown COMPLETE BLOOD COUNT 3784242 Lymph Auto 24.7 % 05/02/19 18 Unknown COMPLETE BLOOD COUNT 8729798 [place] Auto 11.6 % 8 Unknown COMPLETE BLOOD COUNT 1602177 Eos Auto 6.9 % 8 Unknown COMPLETE BLOOD COUNT 6752995 RDW 13.2 % 8 Unknown COMPLETE BLOOD COUNT 5980331 Baso Auto 0.2 % 8 Unknown COMPLETE BLOOD COUNT 6957167 Neutrophil Abs 2.77 10e9/L Unknown COMPLETE BLOOD COUNT 7204682 Lymphocyte Abs 1.21 10e9/L Unknown COMPLETE BLOOD COUNT 1603841 Monocyte Abs 0.57 10e9/L 10/2017 Unknown COMPLETE BLOOD COUNT 6635387 Eosinophil Abs 0.34 10e9/L Unknown COMPLETE BLOOD COUNT 2298742 Basophil Abs 0.01 10e9/L 10/2017 Unknown COMPLETE BLOOD COUNT 9375003 RDW-SD 47.2 fL 8 Unknown GLYCOSYLATED HEMOGLOBIN TEST 07154 Hgb A1c 42967-6 6.0 % 0 05/01/2017 Unknown GFR CALC 0009008 GFR Non Afr Amr >60 mL/min 05/01/2017 Un known GFR CALC 8466288 GFR Afr Amr >60 mL/min 05/01/2017 Unknow n MEAN GLUC 1666376 Calc Mean Gluc 126 mg/dL 05/01/2017 Unkn own COMPREHENSIVE METABOLIC 28443 AST 17 U/L 2017 Unknown COMPREHENSIVE METABOLIC 41433 ALT 16 U/L 2017 Unknown COMPREHENSIVE METABOLIC 27737 BUN 13 mg/dL 2017 Unknown COMPREHENSIVE METABOLIC 09452 ALBUMIN 3.9 g/dL 2017 Unknown COMPREHENSIVE METABOLIC 90748 CHLORIDE 104 mmol/L 05/01 Unknown COMPREHENSIVE METABOLIC 87460 Bili Total 0.7 mg/dL 05/01 Unknown COMPREHENSIVE METABOLIC 53899 ALK PHOS 58 U/L 2017 Unknown COMPREHENSIVE METABOLIC 69423 SODIUM 139 mmol/L 05/01 Unknown COMPREHENSIVE METABOLIC 30094 CREATININE 0.99 mg/dL 10/2017 Unknown COMPREHENSIVE METABOLIC 49562 CALCIUM 9.5 mg/dL 2017 Unknown COMPREHENSIVE METABOLIC 26087 POTASSIUM 4.3 mmol/L 05/01 Unknown COMPREHENSIVE METABOLIC 27563 Total Protein 6.7 g/dL Unknown COMPREHENSIVE METABOLIC 75692 Glucose 110 mg/dL 2017 Unknown COMPREHENSIVE METABOLIC 06794 Bicarbonate 27 mmol/L 10/2017 Unknown COMPREHENSIVE METABOLIC 71070 AGAP 8 mmol/L 2017 Unknown PSA EQUIMOLAR NITHIN 30445 PSA Total 1.10 ng/mL 8 Unknown THYROID STIMULATING HORMONE 33648 TSH 0.673 uIU/mL 05/01/2017 Unknown GLYCOSYLATED HEMOGLOBIN TEST 49007 Hgb A1c 96073-0 5.8 % 1 03/08/2015 Unknown MEAN GLUC 0337750 Calc Mean Gluc 120 mg/dL 01/07/2016 Unkn own FREE T4 35216 T4 Free 1.13 ng/dL 01/04/2016 Unknown THYROID STIMULATING HORMONE 63126 TSH 0.875 uIU/mL 01/04/2016 Unknown COMPREHENSIVE METABOLIC 27698 AST 20 U/L 2015 Unknown COMPREHENSIVE METABOLIC 51373 ALT 20 U/L 2015 Unknown COMPREHENSIVE METABOLIC 22399 BUN 14 mg/dL 2015 Unknown COMPREHENSIVE METABOLIC 97612 ALBUMIN 4.4 g/dL 2015 Unknown COMPREHENSIVE METABOLIC 27464 CHLORIDE 103 mmol/L 01/03 Unknown COMPREHENSIVE METABOLIC 97854 Bili Total 0.5 mg/dL 01/03 Unknown COMPREHENSIVE METABOLIC 82218 ALK PHOS 53 U/L 2015 Unknown COMPREHENSIVE METABOLIC 57026 SODIUM 137 mmol/L 01/03 Unknown COMPREHENSIVE METABOLIC 98700 CREATININE 0.98 mg/dL 12/24 Unknown COMPREHENSIVE METABOLIC 75417 CALCIUM 9.6 mg/dL 2015 Unknown COMPREHENSIVE METABOLIC 90442 POTASSIUM 4.5 mmol/L 01/03 Unknown COMPREHENSIVE METABOLIC 19129 Total Protein 7.0 g/dL Unknown COMPREHENSIVE METABOLIC 24195 Glucose 117 mg/dL 2015 Unknown COMPREHENSIVE METABOLIC 61836 Bicarbonate 26 mmol/L 12/24 Unknown COMPREHENSIVE METABOLIC 86761 AGAP 8 mmol/L 2015 Unknown COMPLETE BLOOD COUNT 5912048 WBC 6.2 10e9/L 01/04/20 16 Unknown COMPLETE BLOOD COUNT 7735714 RBC 4.55 10e12/L 2015 Unknown COMPLETE BLOOD COUNT 7911186 HEMOGLOBIN 15.0 g/dL 01/04/20 16 Unknown COMPLETE BLOOD COUNT 5422141 HEMATOCRIT 43.8 % 01/04/20 16 Unknown COMPLETE BLOOD COUNT 2344334 MCV 96.3 fL 6 Unknown COMPLETE BLOOD COUNT 8549541 MCH 33.0 pg 6 Unknown COMPLETE BLOOD COUNT 8705424 MCHC 34.2 g/dL 6 Unknown COMPLETE BLOOD COUNT 3939824 PLATELET COUNT 259 10e9/L 12/2015 Unknown COMPLETE BLOOD COUNT [id number] Mean Plt Volume 10.8 fL 12/2015 Unknown COMPLETE BLOOD COUNT [id number] Neut Auto 62.4 % 6 Unknown COMPLETE BLOOD COUNT [id number] Lymph Auto 25.9 % 01/04/20 16 Unknown COMPLETE BLOOD COUNT [id number] [place] Auto 6.8 % 6 Unknown COMPLETE BLOOD COUNT [id number] RDW 13.4 % 6 Unknown COMPLETE BLOOD COUNT [id number] Eos Auto 4.9 % 6 Unknown COMPLETE BLOOD COUNT [id number] Baso Auto 0.0 % 6 Unknown COMPLETE BLOOD COUNT [id number] Neutrophil Abs 3.87 10e9/L Unknown COMPLETE BLOOD COUNT [id number] Lymphocyte Abs 1.61 10e9/L Unknown COMPLETE BLOOD COUNT [id number] Monocyte Abs 0.42 10e9/L 12/24 Unknown COMPLETE BLOOD COUNT [id number] Eosinophil Abs 0.30 10e9/L Unknown COMPLETE BLOOD COUNT [id number] RDW-SD 46.2 fL 6 Unknown COMPLETE BLOOD COUNT [id number] Basophil Abs 0.00 10e9/L 12/24 Unknown PSA EQUIMOLAR NITHIN 28202 PSA Total 1.14 ng/mL 6 Unknown GFR CALC [id number] GFR Afr Amr >60 mL/min 01/04/2016 Unknow n GFR CALC [id number] GFR Non Afr Amr >60 mL/min 01/04/2016 Un known LIPID GROUP 93136 Cholesterol 172 mg/dL 01/04/2016 Unkno wn LIPID GROUP 54543 Triglyceride 156 mg/dL 01/04/2016 Unkn own LIPID GROUP 80884 HDL CHOLESTEROL 42 mg/dL 01/04/2016 U nknown LIPID GROUP 45636 Chol/HDL Ratio 4.10 ratio 01/04/2016 U nknown LIPID GROUP 95795 NON-HDL Chol 130 mg/dL 01/04/2016 Unkn own LIPID GROUP 36118 LDL Cholesterol 99 mg/dL 01/04/2016 U nknown GLYCOSYLATED HEMOGLOBIN TEST 93465 A1C HPLC 81232-9 5.8 % 1 04/10/2014 Unknown COMPLETE BLOOD COUNT [id number] WBC 6.0 10e9/L 02/03/20 15 Unknown COMPLETE BLOOD COUNT [id number] RBC 4.39 10e12/L 2014 Unknown COMPLETE BLOOD COUNT [id number] HGB 14.3 g/dL 5 Unknown COMPLETE BLOOD COUNT [id number] HCT DET 41.7 % 5 Unknown COMPLETE BLOOD COUNT 6261985 MCV 95.0 fL 5 Unknown COMPLETE BLOOD COUNT [id number] MCH 32.6 pg 5 Unknown COMPLETE BLOOD COUNT [id number] MCHC 34.3 g/dL 5 Unknown COMPLETE BLOOD COUNT [id number] PLT 272 10e9/L 02/03/20 15 Unknown COMPLETE BLOOD COUNT [id number] MPV 11.1 fL 5 Unknown COMPLETE BLOOD COUNT [id number] GARY % 62.7 % 5 Unknown COMPLETE BLOOD COUNT [id number] LY % 25.2 % 5 Unknown COMPLETE BLOOD COUNT [id number] MON % 7.9 % 5 Unknown COMPLETE BLOOD COUNT [id number] EOS % 4.0 % 5 Unknown COMPLETE BLOOD COUNT [id number] BASO % 0.2 % 5 Unknown COMPLETE BLOOD COUNT [id number] RDW 13.2 % 5 Unknown COMPLETE BLOOD COUNT 8360030 ABS GARY 3.76 10e9/L 015 Unknown COMPLETE BLOOD COUNT [id number] ABS LYMPH 1.51 10e9/L 015 Unknown COMPLETE BLOOD COUNT [id number] ABS MONO 0.47 10e9/L 015 Unknown COMPLETE BLOOD COUNT [id number] ABS EOS 0.24 10e9/L 015 Unknown COMPLETE BLOOD COUNT [id number] ABS BASO 0.01 10e9/L 015 Unknown COMPLETE BLOOD COUNT [id number] RDW-SD 44.7 fL 5 Unknown GFR CALC 5137759 GFR AA >60 ML/MIN 02/02/2015 Unknown GFR CALC 4186215 GFR NON-AA >60 ML/MIN 02/02/2015 Unknown THYROID STIMULATING HORMONE 87940 TSH 0.970 uIU/ML 02/02/2015 Unknown LIPID GROUP 29305 HDL TEST 41 MG/DL 02/02/2015 Unknown LIPID GROUP 42982 TRIG 151 MG/DL 02/02/2015 Unknown LIPID GROUP 81745 TEST LDL 122 MG/DL 02/02/2015 Unknown LIPID GROUP 12763 CHOL 193 MG/DL 02/02/2015 Unknown LIPID GROUP 15669 RCHOL/HDL 4.71 RATIO 02/02/2015 Unknow n LIPID GROUP 33855 NON-HDL CH 152 MG/DL 02/02/2015 Unknow n PSA EQUIMOLAR NITHIN 34665 PSA EQ 0.76 NG/ML 5 Unknown FREE T4 66685 FREE T4 0.93 NG/DL 02/02/2015 Unknown COMPREHENSIVE METABOLIC 72404 AST 21 U/L 2014 Unknown COMPREHENSIVE METABOLIC 54007 ALT 21 IU/L 2014 Unknown COMPREHENSIVE METABOLIC 90464 BUN 15 MG/DL 2014 Unknown COMPREHENSIVE METABOLIC 66524 ALBUMIN 4.5 GM/DL 2014 Unknown COMPREHENSIVE METABOLIC 53969 CHLORIDE 104 MMOL/L 02/02 Unknown COMPREHENSIVE METABOLIC 37512 BILI TOT 1.0 MG/DL 2014 Unknown COMPREHENSIVE METABOLIC 73088 ALK PHOS 71 U/L 2014 Unknown COMPREHENSIVE METABOLIC 99872 SODIUM 136 MMOL/L 02/02 Unknown COMPREHENSIVE METABOLIC 88661 CREATININE 0.94 MG/DL 01/23 Unknown COMPREHENSIVE METABOLIC 61452 CALCIUM 9.8 MG/DL 2014 Unknown COMPREHENSIVE METABOLIC 24432 POTASSIUM 4.3 MMOL/L 02/02 Unknown COMPREHENSIVE METABOLIC 16930 PROT TOT 6.9 GM/DL 2014 Unknown COMPREHENSIVE METABOLIC 51555 Glucose 113 MG/DL 2014 Unknown COMPREHENSIVE METABOLIC 52144 BICARB 26 MMOL/L 2014 Unknown COMPREHENSIVE METABOLIC 31700 ANION GAP 6 MEQ/L 2014 Unknown ANTI STREPTOLYSIN O TITER(ASO) 76822 ASO 57 IU/ML 06/19/2014 Unknown RA FACTOR 47204 RA FACTOR <20.0 IU/ML 06/15/2014 Unknown FREE T4 93216 FREE T4 1.19 NG/DL 06/15/2014 Unknown ANTINUCLEAR ANTIBODY SCREEN 44075 SHANNON SCR <1:80 Unknown ERYTHROCYTE SEDIMENTATION RATE 13604 ESR 2 MM/HR 06/14/2014 Unknown COMPLETE BLOOD COUNT [id number] WBC 6.7 10e9/L 06/15/19 15 Unknown COMPLETE BLOOD COUNT [id number] RBC 4.86 10e12/L 2014 Unknown COMPLETE BLOOD COUNT 4083296 HGB 15.9 g/dL 5 Unknown COMPLETE BLOOD COUNT [id number] HCT DET 45.0 % 5 Unknown COMPLETE BLOOD COUNT 4505307 MCV 92.6 fL 5 Unknown COMPLETE BLOOD COUNT 4604111 MCH 32.7 pg 5 Unknown COMPLETE BLOOD COUNT 8596252 MCHC 35.3 g/dL 5 Unknown COMPLETE BLOOD COUNT [id number] PLT 299 10e9/L 06/15/19 15 Unknown COMPLETE BLOOD COUNT 3236846 MPV 10.0 fL 5 Unknown COMPLETE BLOOD COUNT 6163628 GARY % 63.8 % 5 Unknown COMPLETE BLOOD COUNT 9350773 LY % 18.3 % 5 Unknown COMPLETE BLOOD COUNT 7564407 MON % 12.1 % 5 Unknown COMPLETE BLOOD COUNT [id number] EOS % 5.7 % 5 Unknown COMPLETE BLOOD COUNT [id number] BASO % 0.1 % 5 Unknown COMPLETE BLOOD COUNT 3881476 RDW 13.3 % 5 Unknown COMPLETE BLOOD COUNT [id number] ABS GARY 4.27 10e9/L 015 Unknown COMPLETE BLOOD COUNT [id number] ABS LYMPH 1.23 10e9/L 015 Unknown COMPLETE BLOOD COUNT [id number] ABS MONO 0.81 10e9/L 015 Unknown COMPLETE BLOOD COUNT [id number] ABS EOS 0.38 10e9/L 015 Unknown COMPLETE BLOOD COUNT [id number] ABS BASO 0.01 10e9/L 015 Unknown COMPLETE BLOOD COUNT 1256015 RDW-SD 44.3 fL 5 Unknown URIC ACID 41701 URIC ACID 7.6 MG/DL 06/14/[place] [address] SYP AB NR 06/14/2014 Unknown THYROID STIMULATING HORMONE 51155 TSH 0.825 uIU/ML 06/14/2014 Unknown GLYCOSYLATED HEMOGLOBIN TEST 13976 A1C HPLC 01160-8 6.0 % 0 06/14/2014 Unknown VITAMIN B 12 FOLIC ACID 91927|67857 VIT B 12 751 PG/ML 05/25 Unknown VITAMIN B 12 FOLIC ACID 09845|89064 FOLIC ACID 23.5 NG/ML Unknown GFR CALC 4106236 GFR AA >60 ML/MIN 06/14/2014 Unknown GFR CALC 4741640 GFR NON-AA >60 ML/MIN 06/14/2014 Unknown C-REACTIVE PROTEIN (CRP) QUANT 27318 CRP 0.1 MG/DL 06/14/2014 Unknown COMPREHENSIVE METABOLIC 62931 AST 19 U/L 2014 Unknown COMPREHENSIVE METABOLIC 89078 ALT 16 IU/L 2014 Unknown COMPREHENSIVE METABOLIC 23039 BUN 13 MG/DL 2014 Unknown COMPREHENSIVE METABOLIC 72602 ALBUMIN 5.1 GM/DL 2014 Unknown COMPREHENSIVE METABOLIC 34269 CHLORIDE 92 MMOL/L 2014 Unknown COMPREHENSIVE METABOLIC 92591 BILI TOT 0.6 MG/DL 2014 Unknown COMPREHENSIVE METABOLIC 55992 ALK PHOS 61 U/L 2014 Unknown COMPREHENSIVE METABOLIC 00984 SODIUM 128 MMOL/L 06/14 Unknown COMPREHENSIVE METABOLIC 86535 CREATININE 1.00 MG/DL 05/25 Unknown COMPREHENSIVE METABOLIC 27798 CALCIUM 10.7 MG/DL 06/14 Unknown COMPREHENSIVE METABOLIC 66481 POTASSIUM 4.1 MMOL/L 06/14 Unknown COMPREHENSIVE METABOLIC 04909 PROT TOT 7.6 GM/DL 2014 Unknown COMPREHENSIVE METABOLIC 16172 Glucose 106 MG/DL 2014 Unknown COMPREHENSIVE METABOLIC 28963 BICARB 29 MMOL/L 2014 Unknown COMPREHENSIVE METABOLIC 67242 ANION GAP 7 MEQ/L 2014 Unknown COMPREHENSIVE METABOLIC 57515 AST 21 U/L 2014 Unknown COMPREHENSIVE METABOLIC 93531 ALT 26 IU/L 2014 Unknown COMPREHENSIVE METABOLIC 28328 BUN 16 MG/DL 2014 Unknown COMPREHENSIVE METABOLIC 78756 ALBUMIN 4.6 GM/DL 2014 Unknown COMPREHENSIVE METABOLIC 28582 CHLORIDE 99 MMOL/L 2014 Unknown COMPREHENSIVE METABOLIC 02544 BILI TOT 0.5 MG/DL 2014 Unknown COMPREHENSIVE METABOLIC 69910 ALK PHOS 57 U/L 2014 Unknown COMPREHENSIVE METABOLIC 31673 SODIUM 134 MMOL/L 03/09 Unknown COMPREHENSIVE METABOLIC 53793 CREATININE 0.91 MG/DL 02/23 Unknown COMPREHENSIVE METABOLIC 93172 CALCIUM 9.9 MG/DL 2014 Unknown COMPREHENSIVE METABOLIC 14862 POTASSIUM 4.3 MMOL/L 03/09 Unknown COMPREHENSIVE METABOLIC 62452 PROT TOT 7.0 GM/DL 2014 Unknown COMPREHENSIVE METABOLIC 45096 Glucose 91 MG/DL 2014 Unknown COMPREHENSIVE METABOLIC 79191 BICARB 30 MMOL/L 2014 Unknown COMPREHENSIVE METABOLIC 73966 ANION GAP 5 MEQ/L 2014 Unknown GLYCOSYLATED HEMOGLOBIN TEST 93673 A1C HPLC 05559-8 6.4 % 0 03/09/2014 Unknown GFR CALC 3828011 GFR AA >60 ML/MIN 03/09/2014 Unknown GFR CALC 1323553 GFR NON-AA >60 ML/MIN 03/09/2014 Unknown GLYCOSYLATED HEMOGLOBIN TEST 50922 A1C HPLC 79132-8 6.0 % 0 11/22/2013 Unknown THYROID STIMULATING HORMONE 15100 TSH 0.643 uIU/ML 11/18/2013 Unknown PSA EQUIMOLAR NITHIN 08597 PSA EQ 0.75 NG/ML 4 Unknown COMPREHENSIVE METABOLIC 42421 AST 21 U/L 2013 Unknown COMPREHENSIVE METABOLIC 45726 ALT 22 IU/L 2013 Unknown COMPREHENSIVE METABOLIC 12596 BUN 16 MG/DL 2013 Unknown COMPREHENSIVE METABOLIC 29815 ALBUMIN 4.6 GM/DL 2013 Unknown COMPREHENSIVE METABOLIC 74657 CHLORIDE 97 MMOL/L 2013 Unknown COMPREHENSIVE METABOLIC 97991 BILI TOT 0.8 MG/DL 2013 Unknown COMPREHENSIVE METABOLIC 70937 ALK PHOS 68 U/L 2013 Unknown COMPREHENSIVE METABOLIC 01540 SODIUM 132 MMOL/L 11/18 Unknown COMPREHENSIVE METABOLIC 28377 CREATININE 0.95 MG/DL 10/25 Unknown COMPREHENSIVE METABOLIC 62659 CALCIUM 10.1 MG/DL 11/18 Unknown COMPREHENSIVE METABOLIC 54432 POTASSIUM 4.2 MMOL/L 11/18 Unknown COMPREHENSIVE METABOLIC 16177 PROT TOT 7.2 GM/DL 2013 Unknown COMPREHENSIVE METABOLIC 90020 Glucose 125 MG/DL 2013 Unknown COMPREHENSIVE METABOLIC 38296 BICARB 26 MMOL/L 2013 Unknown COMPREHENSIVE METABOLIC 80222 ANION GAP 9 MEQ/L 2013 Unknown COMPLETE BLOOD COUNT 6749185 WBC 7.3 10e9/L 11/19/19 14 Unknown COMPLETE BLOOD COUNT [id number] RBC 4.68 10e12/L 2013 Unknown COMPLETE BLOOD COUNT 7414008 HGB 15.4 g/dL 4 Unknown COMPLETE BLOOD COUNT [id number] HCT DET 43.4 % 4 Unknown COMPLETE BLOOD COUNT 0196993 MCV 92.7 fL 4 Unknown COMPLETE BLOOD COUNT 1340953 MCH 32.9 pg 4 Unknown COMPLETE BLOOD COUNT 3282616 MCHC 35.5 g/dL 4 Unknown COMPLETE BLOOD COUNT 6939554 PLT 286 10e9/L 11/19/19 14 Unknown COMPLETE BLOOD COUNT 8762810 MPV 10.8 fL 4 Unknown COMPLETE BLOOD COUNT 8086679 GARY % 61.6 % 4 Unknown COMPLETE BLOOD COUNT 9474100 LY % 25.6 % 4 Unknown COMPLETE BLOOD COUNT 0567684 MON % 8.7 % 4 Unknown COMPLETE BLOOD COUNT 1442465 EOS % 4.0 % 4 Unknown COMPLETE BLOOD COUNT 7826754 BASO % 0.1 % 4 Unknown COMPLETE BLOOD COUNT 2561560 RDW 12.9 % 4 Unknown COMPLETE BLOOD COUNT 5597324 ABS GARY 4.50 10e9/L 014 Unknown COMPLETE BLOOD COUNT 3395767 ABS LYMPH 1.87 10e9/L 014 Unknown COMPLETE BLOOD COUNT 1449865 ABS MONO 0.64 10e9/L 014 Unknown COMPLETE BLOOD COUNT 0657656 ABS EOS 0.29 10e9/L 014 Unknown COMPLETE BLOOD COUNT 2904110 ABS BASO 0.01 10e9/L 014 Unknown COMPLETE BLOOD COUNT 6889864 RDW-SD 42.9 fL 4 Unknown LIPID GROUP 97664 HDL TEST 52 MG/DL 11/18/2013 Unknown LIPID GROUP 40280 TRIG 100 MG/DL 11/18/2013 Unknown LIPID GROUP 39901 TEST LDL 110 MG/DL 11/18/2013 Unknown LIPID GROUP 01833 CHOL 182 MG/DL 11/18/2013 Unknown LIPID GROUP 45764 RCHOL/HDL 3.50 RATIO 11/18/2013 Unknow n LIPID GROUP 67150 NON-HDL CH 130 MG/DL 11/18/2013 Unknow n FREE T4 05596 FREE T4 1.28 NG/DL 11/18/2013 Unknown GFR CALC 3670888 GFR AA >60 ML/MIN 11/18/2013 Unknown GFR CALC 6727340 GFR NON-AA >60 ML/MIN 11/18/2013 Unknown COMPREHENSIVE METABOLIC 69986 AST 21 U/L 2012 Unknown COMPREHENSIVE METABOLIC 22588 ALT 20 IU/L 2012 Unknown COMPREHENSIVE METABOLIC 67591 BUN 12 MG/DL 2012 Unknown COMPREHENSIVE METABOLIC 51426 ALBUMIN 4.6 GM/DL 2012 Unknown COMPREHENSIVE METABOLIC 17984 CHLORIDE 105 MMOL/L 11/03 Unknown COMPREHENSIVE METABOLIC 33291 BILI TOT 0.5 MG/DL 2012 Unknown COMPREHENSIVE METABOLIC 75466 ALK PHOS 53 U/L 2012 Unknown COMPREHENSIVE METABOLIC 15904 SODIUM 138 MMOL/L 11/03 Unknown COMPREHENSIVE METABOLIC 70418 CREATININE 0.93 MG/DL 10/24 Unknown COMPREHENSIVE METABOLIC 99344 CALCIUM 9.7 MG/DL 2012 Unknown COMPREHENSIVE METABOLIC 35297 POTASSIUM 4.3 MMOL/L 11/03 Unknown COMPREHENSIVE METABOLIC 41448 PROT TOT 7.0 GM/DL 2012 Unknown COMPREHENSIVE METABOLIC 01659 Glucose 117 MG/DL 2012 Unknown COMPREHENSIVE METABOLIC 38520 BICARB 25 MMOL/L 2012 Unknown COMPREHENSIVE METABOLIC 10820 ANION GAP 8 MEQ/L 2012 Unknown GFR CALC 7502003 GFR AA >60 ML/MIN 11/03/2012 Unknown GFR CALC 7498859 GFR NON-AA >60 ML/MIN 11/03/2012 Unknown THYROID STIMULATING HORMONE 62283 TSH 1.218 uIU/ML 11/03/2012 Unknown URIC ACID 30438 URIC ACID 7.6 MG/DL 11/03/2012 Unknown COMPLETE BLOOD COUNT 8425689 WBC 5.0 10e9/L 11/04/19 13 Unknown COMPLETE BLOOD COUNT [id number] RBC 4.70 10e12/L 2012 Unknown COMPLETE BLOOD COUNT 6101668 HGB 15.6 g/dL 3 Unknown COMPLETE BLOOD COUNT 7132565 HCT DET 44.2 % 3 Unknown COMPLETE BLOOD COUNT 6345333 MCV 94.0 fL 3 Unknown COMPLETE BLOOD COUNT 0882649 MCH 33.2 pg 3 Unknown COMPLETE BLOOD COUNT 3119653 MCHC 35.3 g/dL 3 Unknown COMPLETE BLOOD COUNT 1545640 PLT 248 10e9/L 11/04/19 13 Unknown COMPLETE BLOOD COUNT 3604874 MPV 10.9 fL 3 Unknown COMPLETE BLOOD COUNT 8624997 GARY % 58.3 % 3 Unknown COMPLETE BLOOD COUNT 5229786 LY % 27.9 % 3 Unknown COMPLETE BLOOD COUNT 3361002 MON % 7.0 % 3 Unknown COMPLETE BLOOD COUNT 1726368 EOS % 6.6 % 3 Unknown COMPLETE BLOOD COUNT 7000218 BASO % 0.2 % 3 Unknown COMPLETE BLOOD COUNT 2233540 RDW 13.2 % 3 Unknown COMPLETE BLOOD COUNT 3708913 ABS GARY 2.92 10e9/L 013 Unknown COMPLETE BLOOD COUNT 7456380 ABS LYMPH 1.40 10e9/L 013 Unknown COMPLETE BLOOD COUNT 4343256 ABS MONO 0.35 10e9/L 013 Unknown COMPLETE BLOOD COUNT 2192110 ABS EOS 0.33 10e9/L 013 Unknown COMPLETE BLOOD COUNT 6903874 ABS BASO 0.01 10e9/L 013 Unknown COMPLETE BLOOD COUNT 1122466 RDW-SD 44.1 fL 3 Unknown HERPE1/2MG 77595|12127|85178 HSV G1 EIA 1.78 INDEX 3 Unknown HERPE1/2MG 86479|39775|26352 HSVM1/2EIA 0.15 02/26/2012 Unknown HERPE1/2MG 10011|23185|99444 HSV G2 EIA 10.14 INDEX 02/25/19 13 Unknown COMPLETE BLOOD COUNT [id number] WBC 9.4 10e9/L 02/24/19 13 Unknown COMPLETE BLOOD COUNT 3056423 RBC 4.54 10e12/L 2012 Unknown COMPLETE BLOOD COUNT [id number] HGB 14.9 g/dL 3 Unknown COMPLETE BLOOD COUNT 4959055 HCT DET 43.0 % 3 Unknown COMPLETE BLOOD COUNT 1705690 MCV 94.7 fL 3 Unknown COMPLETE BLOOD COUNT 3716322 MCH 32.8 pg 3 Unknown COMPLETE BLOOD COUNT 8480633 MCHC 34.7 g/dL 3 Unknown COMPLETE BLOOD COUNT 8317877 PLT 251 10e9/L 02/24/19 13 Unknown COMPLETE BLOOD COUNT 0095704 MPV 11.1 fL 3 Unknown COMPLETE BLOOD COUNT 1408544 GARY % 75.0 % 3 Unknown COMPLETE BLOOD COUNT 5770027 LY % 15.7 % 3 Unknown COMPLETE BLOOD COUNT 4554691 MON % 6.8 % 3 Unknown COMPLETE BLOOD COUNT 6789861 EOS % 2.3 % 3 Unknown COMPLETE BLOOD COUNT 4842886 BASO % 0.2 % 3 Unknown COMPLETE BLOOD COUNT 4178815 RDW 13.2 % 3 Unknown COMPLETE BLOOD COUNT 7614417 ABS GARY 7.05 10e9/L 013 Unknown COMPLETE BLOOD COUNT 2369879 ABS LYMPH 1.48 10e9/L 013 Unknown COMPLETE BLOOD COUNT 2663052 ABS MONO 0.64 10e9/L 013 Unknown COMPLETE BLOOD COUNT [id number] ABS EOS 0.22 10e9/L 013 Unknown COMPLETE BLOOD COUNT 5445855 ABS BASO 0.02 10e9/L 013 Unknown COMPLETE BLOOD COUNT 0824352 RDW-SD 44.3 fL 3 Unknown COMPREHENSIVE METABOLIC 47882 AST 21 U/L 2012 Unknown COMPREHENSIVE METABOLIC 27399 ALT 22 IU/L 2012 Unknown COMPREHENSIVE METABOLIC 23227 BUN 12 MG/DL 2012 Unknown COMPREHENSIVE METABOLIC 73418 ALBUMIN 4.9 GM/DL 2012 Unknown COMPREHENSIVE METABOLIC 49080 CHLORIDE 102 MMOL/L 02/24 Unknown COMPREHENSIVE METABOLIC 91983 BILI TOT 0.6 MG/DL 2012 Unknown COMPREHENSIVE METABOLIC 97878 ALK PHOS 59 U/L 2012 Unknown COMPREHENSIVE METABOLIC 53227 SODIUM 137 MMOL/L 02/24 Unknown COMPREHENSIVE METABOLIC 44937 CREATININE 0.92 MG/DL 03/2012 Unknown COMPREHENSIVE METABOLIC 11058 CALCIUM 9.7 MG/DL 2012 Unknown COMPREHENSIVE METABOLIC 98179 POTASSIUM 4.1 MMOL/L 02/24 Unknown COMPREHENSIVE METABOLIC 38012 PROT TOT 6.9 GM/DL 2012 Unknown COMPREHENSIVE METABOLIC 44334 Glucose 127 MG/DL 2012 Unknown COMPREHENSIVE METABOLIC 93064 BICARB 25 MMOL/L 2012 Unknown COMPREHENSIVE METABOLIC 56828 ANION GAP 10 MEQ/L 2012 Unknown GFR CALC 2211546 GFR AA >60 ML/MIN 02/25/2012 Unknown GFR CALC 2969108 GFR NON-AA >60 ML/MIN 02/25/2012 Unknown TULAREM AB [id number] TULAREM AB <1:20 09/23/2011 Unknown [place] [place] FEVER 81343K1 IGG RMSF <1:16 0 09/19/2011 Unknown [employer] [place] [employer] FEVER 04091B4 IGM RMSF <1:10 0 09/19/2011 Unknown E CHAFF AB 2799327 IGG E CHFF <1:16 09/19/2011 Unknown E CHAFF AB 2299430 IGM E CHFF <1:10 09/19/2011 Unknown GLYCOSYLATED HEMOGLOBIN TEST 54931 A1C HPLC 70931-0 5.4 % 0 09/18/2011 Unknown GFR CALC 9525088 GFR AA >60 ML/MIN 09/17/2011 Unknown GFR CALC 2841898 GFR NON-AA >60 ML/MIN 09/17/2011 Unknown VITAMIN B 12 FOLIC ACID 72669|96922 VIT B 12 405 PG/ML 08/24 Unknown VITAMIN B 12 FOLIC ACID 88798|97834 FOLIC ACID 17.5 NG/ML Unknown COMPREHENSIVE METABOLIC 94186 AST 19 U/L 2011 Unknown COMPREHENSIVE METABOLIC 80495 ALT 19 IU/L 2011 Unknown COMPREHENSIVE METABOLIC 81110 BUN 12 MG/DL 2011 Unknown COMPREHENSIVE METABOLIC 50590 ALBUMIN 4.9 GM/DL 2011 Unknown COMPREHENSIVE METABOLIC 75837 CHLORIDE 98 MMOL/L 2011 Unknown COMPREHENSIVE METABOLIC 37399 BILI TOT 1.2 MG/DL 2011 Unknown COMPREHENSIVE METABOLIC 55243 ALK PHOS 60 U/L 2011 Unknown COMPREHENSIVE METABOLIC 37053 SODIUM 133 MMOL/L 09/16 Unknown COMPREHENSIVE METABOLIC 54623 CREATININE 1.12 MG/DL 08/24 Unknown COMPREHENSIVE METABOLIC 73102 CALCIUM 10.1 MG/DL 09/16 Unknown COMPREHENSIVE METABOLIC 54426 POTASSIUM 4.1 MMOL/L 09/16 Unknown COMPREHENSIVE METABOLIC 17112 PROT TOT 7.6 GM/DL 2011 Unknown COMPREHENSIVE METABOLIC 93814 Glucose 121 MG/DL 2011 Unknown COMPREHENSIVE METABOLIC 71495 BICARB 25 MMOL/L 2011 Unknown COMPREHENSIVE METABOLIC 75011 ANION GAP 10 MEQ/L 2011 Unknown COMPLETE BLOOD COUNT 03352 WBC 5.8 10e9/L 09/17/19 12 Unknown COMPLETE BLOOD COUNT 83208 RBC 5.01 10e12/L 2011 Unknown COMPLETE BLOOD COUNT 57787 HGB 16.4 g/dL 2 Unknown COMPLETE BLOOD COUNT 35228 HCT DET 46.7 % 2 Unknown COMPLETE BLOOD COUNT 90540 MCV 93.2 fL 2 Unknown COMPLETE BLOOD COUNT 62716 MCH 32.7 pg 2 Unknown COMPLETE BLOOD COUNT 07793 MCHC 35.1 g/dL 2 Unknown COMPLETE BLOOD COUNT 71080 PLT 275 10e9/L 09/17/19 12 Unknown COMPLETE BLOOD COUNT 66258 MPV 10.8 fL 2 Unknown COMPLETE BLOOD COUNT 97657 GARY % 47.1 % 2 Unknown COMPLETE BLOOD COUNT 39822 LY % 37.2 % 2 Unknown COMPLETE BLOOD COUNT 31394 MON % 9.5 % 2 Unknown COMPLETE BLOOD COUNT 95411 EOS % 5.9 % 2 Unknown COMPLETE BLOOD COUNT 22203 BASO % 0.3 % 2 Unknown COMPLETE BLOOD COUNT 82507 RDW 13.0 % 2 Unknown COMPLETE BLOOD COUNT 58308 ABS GARY 2.73 10e9/L 012 Unknown COMPLETE BLOOD COUNT 54628 ABS LYMPH 2.16 10e9/L 012 Unknown COMPLETE BLOOD COUNT 70334 ABS MONO 0.55 10e9/L 012 Unknown COMPLETE BLOOD COUNT 14141 ABS EOS 0.34 10e9/L 012 Unknown COMPLETE BLOOD COUNT 63054 ABS BASO 0.02 10e9/L 012 Unknown COMPLETE BLOOD COUNT 80642 RDW-SD 43.1 fL 2 Unknown LIPID GROUP 70609 HDL TEST 39 MG/DL 09/17/2011 Unknown LIPID GROUP 03541 TRIG 195 MG/DL 09/17/2011 Unknown LIPID GROUP 06579 TEST LDL 98 MG/DL 09/17/2011 Unknown LIPID GROUP 84648 CHOL 176 MG/DL 09/17/2011 Unknown LIPID GROUP 89333 RCHOL/HDL 4.51 RATIO 09/17/2011 Unknow n THYROID STIMULATING HORMONE 73527 TSH 2.892 uIU/ML 08/29/2010 Unknown COMPLETE BLOOD COUNT 94974 WBC 6.5 10e9/L 08/30/19 11 Unknown COMPLETE BLOOD COUNT 67106 RBC 4.83 10e12/L 2010 Unknown COMPLETE BLOOD COUNT 49436 HGB 15.9 g/dL 1 Unknown COMPLETE BLOOD COUNT 60043 HCT DET 44.4 % 1 Unknown COMPLETE BLOOD COUNT 26488 MCV 91.9 fL 1 Unknown COMPLETE BLOOD COUNT 76475 MCH 32.9 pg 1 Unknown COMPLETE BLOOD COUNT 37542 MCHC 35.8 g/dL 1 Unknown COMPLETE BLOOD COUNT 86532 PLT 273 10e9/L 08/30/19 11 Unknown COMPLETE BLOOD COUNT 46946 MPV 10.1 fL 1 Unknown COMPLETE BLOOD COUNT 33399 GARY % 45.3 % 1 Unknown COMPLETE BLOOD COUNT 91391 LY % 39.3 % 1 Unknown COMPLETE BLOOD COUNT 44118 MON % 9.8 % 1 Unknown COMPLETE BLOOD COUNT 31301 EOS % 5.4 % 1 Unknown COMPLETE BLOOD COUNT 77317 BASO % 0.2 % 1 Unknown COMPLETE BLOOD COUNT 85328 RDW 13.2 % 1 Unknown COMPLETE BLOOD COUNT 98222 ABS GARY 2.94 10e9/L 011 Unknown COMPLETE BLOOD COUNT 22384 ABS LYMPH 2.55 10e9/L 011 Unknown COMPLETE BLOOD COUNT 52914 ABS MONO 0.64 10e9/L 011 Unknown COMPLETE BLOOD COUNT 88991 ABS EOS 0.35 10e9/L 011 Unknown COMPLETE BLOOD COUNT 20761 ABS BASO 0.01 10e9/L 011 Unknown COMPLETE BLOOD COUNT 17462 RDW-SD 43.5 fL 1 Unknown FREE T4 75028 FREE T4 1.39 NG/DL 08/29/2010 Unknown LIPID GROUP 33131 HDL TEST 52 MG/DL 08/29/2010 Unknown LIPID GROUP 16993 TRIG 110 MG/DL 08/29/2010 Unknown LIPID GROUP 86865 TEST LDL 109 MG/DL 08/29/2010 Unknown LIPID GROUP 14595 CHOL 183 MG/DL 08/29/2010 Unknown LIPID GROUP 39716 RCHOL/HDL 3.52 RATIO 08/29/2010 Unknow n PSA EQUIMOLAR NITHIN 04392 PSA EQ 1.14 NG/ML 1 Unknown GFR CALC 9796130 GFR AA >60 ML/MIN 08/29/2010 Unknown GFR CALC 7742761 GFR NON-AA >60 ML/MIN 08/29/2010 Unknown COMPREHENSIVE METABOLIC 43865 AST 23 U/L 2010 Unknown COMPREHENSIVE METABOLIC 99662 ALT 19 IU/L 2010 Unknown COMPREHENSIVE METABOLIC 61900 BUN 12 MG/DL 2010 Unknown COMPREHENSIVE METABOLIC 75192 ALBUMIN 4.9 GM/DL 2010 Unknown COMPREHENSIVE METABOLIC 85368 CHLORIDE 95 MMOL/L 2010 Unknown COMPREHENSIVE METABOLIC 80205 BILI TOT 0.4 MG/DL 2010 Unknown COMPREHENSIVE METABOLIC 41743 ALK PHOS 59 U/L 2010 Unknown COMPREHENSIVE METABOLIC 25454 SODIUM 132 MMOL/L 08/29 Unknown COMPREHENSIVE METABOLIC 58300 CREATININE 0.96 MG/DL 08/2010 Unknown COMPREHENSIVE METABOLIC 51983 CALCIUM 10.6 MG/DL 08/29 Unknown COMPREHENSIVE METABOLIC 93496 POTASSIUM 4.0 MMOL/L 08/29 Unknown COMPREHENSIVE METABOLIC 76410 PROT TOT 8.0 GM/DL 2010 Unknown COMPREHENSIVE METABOLIC 21067 Glucose 105 MG/DL 2010 Unknown COMPREHENSIVE METABOLIC 84670 BICARB 22 MMOL/L 2010 Unknown COMPREHENSIVE METABOLIC 34759 ANION GAP 15 MEQ/L 2010 Unknown URIC ACID 04512 URIC ACID 6.7 MG/DL 12/12/2009 Unknown Procedures Procedure Codes Date ROUTINE VENIPUNCTURE CPT-4: 30788 04/18/2020 COMPREHEN METABOLIC PANEL CPT-4: 10243 04/18/2020 LIPID PANEL CPT-4: 09932 04/18/2020 A1C HPLC CPT-4: 91602 04/18/2020 PPPS, subseq visit CPT-4: G0439 10/12/2019 ROUTINE VENIPUNCTURE CPT-4: 65651 01/29/2018 COMPREHEN METABOLIC PANEL CPT-4: 77792 01/29/2018 LIPID PANEL CPT-4: 18892 01/29/2018 A1C HPLC CPT-4: 04961 01/29/2018 HEPATITIS C AB TEST CPT-4: 85755 01/29/2018 ROUTINE VENIPUNCTURE CPT-4: 58107 05/01/2017 ASSAY THYROID STIM HORMONE CPT-4: 60773 05/01/2017 COMPREHEN METABOLIC PANEL CPT-4: 32357 05/01/2017 COMPLETE CBC W/AUTO DIFF WBC CPT-4: 07813 05/01/2017 LIPID PANEL CPT-4: 85558 05/01/2017 A1C HPLC CPT-4: 47948 05/01/2017 ASSAY OF PSA TOTAL CPT-4: 47357 05/01/2017 ROUTINE VENIPUNCTURE CPT-4: 08504 01/04/2016 ASSAY OF FREE THYROXINE CPT-4: 04603 01/04/2016 ASSAY THYROID STIM HORMONE CPT-4: 26112 01/04/2016 COMPREHEN METABOLIC PANEL CPT-4: 72125 01/04/2016 COMPLETE CBC W/AUTO DIFF WBC CPT-4: 76302 01/04/2016 LIPID PANEL CPT-4: 52807 01/04/2016 ASSAY OF PSA TOTAL CPT-4: 20676 01/04/2016 A1C HPLC CPT-4: 54092 01/04/2016 ROUTINE VENIPUNCTURE CPT-4: 54409 02/02/2015 ASSAY OF FREE THYROXINE CPT-4: 91252 02/02/2015 ASSAY THYROID STIM HORMONE CPT-4: 38176 02/02/2015 COMPREHEN METABOLIC PANEL CPT-4: 89253 02/02/2015 COMPLETE CBC W/AUTO DIFF WBC CPT-4: 03785 02/02/2015 LIPID PANEL CPT-4: 35984 02/02/2015 ASSAY OF PSA TOTAL CPT-4: 47864 02/02/2015 A1C HPLC CPT-4: 55104 02/02/2015 THER/PROPH/DIAG INJ SC/IM CPT-4: 45716 07/19/2014 METHYLPREDNISOLONE 40 MG INJ CPT-4: J1030 07/19/2014 TRIAMCINOLONE ACET INJ NOS CPT-4: J3301 07/19/2014 ROUTINE VENIPUNCTURE CPT-4: 76406 06/14/2014 ASSAY OF FREE THYROXINE CPT-4: 66947 06/14/2014 ASSAY THYROID STIM HORMONE CPT-4: 77176 06/14/2014 COMPREHEN METABOLIC PANEL CPT-4: 30790 06/14/2014 COMPLETE CBC W/AUTO DIFF WBC CPT-4: 26801 06/14/2014 A1C HPLC CPT-4: 85200 06/14/2014 VITAMIN B 12 FOLIC ACID CPT-4: 44355|56840 06/14/2014 RBC SED RATE AUTOMATED CPT-4: 30518 06/14/2014 RHEUMATOID FACTOR QUANT CPT-4: 90825 06/14/2014 ANTINUCLEAR ANTIBODIES CPT-4: 30645 06/14/2014 ANTISTREPTOLYSIN O TITER CPT-4: 90837 06/14/2014 ASSAY OF BLOOD/URIC ACID CPT-4: 55599 06/14/2014 C-REACTIVE PROTEIN CPT-4: 31265 06/14/2014 ROUTINE VENIPUNCTURE CPT-4: 40491 03/09/2014 COMPREHEN METABOLIC PANEL CPT-4: 71702 03/09/2014 A1C HPLC CPT-4: 69761 03/09/2014 ROUTINE VENIPUNCTURE CPT-4: 00126 11/18/2013 ASSAY OF FREE THYROXINE CPT-4: 34750 11/18/2013 ASSAY THYROID STIM HORMONE CPT-4: 54673 11/18/2013 COMPREHEN METABOLIC PANEL CPT-4: 32787 11/18/2013 COMPLETE CBC W/AUTO DIFF WBC CPT-4: 78840 11/18/2013 LIPID PANEL CPT-4: 04712 11/18/2013 ASSAY OF PSA TOTAL CPT-4: 30006 11/18/2013 A1C HPLC CPT-4: 15181 11/18/2013 REMOVE FOREIGN BODY CPT-4: 51970 11/09/2013 OCCULT BLOOD FECES CPT-4: 89732 11/09/2013 THER/PROPH/DIAG INJ SC/IM CPT-4: 65077 11/24/2012 VITAMIN B12 INJECTION CPT-4: J3420 11/24/2012 COMPREHEN METABOLIC PANEL CPT-4: 72683 11/03/2012 COMPLETE CBC W/AUTO DIFF WBC CPT-4: 37434 11/03/2012 ASSAY THYROID STIM HORMONE CPT-4: 39843 11/03/2012 ASSAY OF BLOOD/URIC ACID CPT-4: 12728 11/03/2012 ROUTINE VENIPUNCTURE CPT-4: 83464 11/03/2012 ROUTINE VENIPUNCTURE CPT-4: 64610 02/25/2012 COMPREHEN METABOLIC PANEL CPT-4: 07810 02/25/2012 COMPLETE CBC W/AUTO DIFF WBC CPT-4: 98879 02/25/2012 HERPE1/2MG CPT-4: 13167|30047|38027 02/25/2012 THER/PROPH/DIAG INJ SC/IM CPT-4: 70465 09/24/2011 VITAMIN B12 INJECTION CPT-4: J3420 09/24/2011 CEFTRIAXONE SODIUM INJECTION CPT-4: J0696 09/24/2011 THER/PROPH/DIAG INJ SC/IM CPT-4: 60452 09/24/2011 ROUTINE VENIPUNCTURE CPT-4: 02321 09/17/2011 COMPREHEN METABOLIC PANEL CPT-4: 88671 09/17/2011 COMPLETE CBC W/AUTO DIFF WBC CPT-4: 71288 09/17/2011 LIPID PANEL CPT-4: 04129 09/17/2011 VITAMIN B 12 FOLIC ACID CPT-4: 79676|50126 09/17/2011 A1C GLYCOSYLATED HEMOGLOBIN TEST CPT-4: 37785 012 ROUTINE VENIPUNCTURE CPT-4: 70616 08/29/2010 COMPLETE CBC W/AUTO DIFF WBC CPT-4: 86408 08/29/2010 COMPREHEN METABOLIC PANEL CPT-4: 71551 08/29/2010 LIPID PANEL CPT-4: 44119 08/29/2010 ASSAY THYROID STIM HORMONE CPT-4: 04744 08/29/2010 ASSAY OF FREE THYROXINE CPT-4: 48247 08/29/2010 ASSAY OF PSA TOTAL CPT-4: 72007 08/29/2010 THER/PROPH/DIAG INJ SC/IM CPT-4: 29972 12/12/2009 VITAMIN B12 INJECTION CPT-4: J3420 12/12/2009 ROUTINE VENIPUNCTURE CPT-4: 51710 12/12/2009 ASSAY OF BLOOD/URIC ACID CPT-4: 00454 12/12/2009 THER/PROPH/DIAG INJ SC/IM CPT-4: 25109 10/30/2009 VITAMIN B12 INJECTION CPT-4: J3420 10/30/2009 THER/PROPH/DIAG INJ SC/IM CPT-4: 21762 10/01/2009 VITAMIN B12 INJECTION CPT-4: J3420 10/01/2009 THER/PROPH/DIAG INJ SC/IM CPT-4: 48964 10/01/2009 CEFTRIAXONE SODIUM INJECTION CPT-4: J0696 10/01/2009 Vital Signs Date Vital 10/01/2020 Blood Pressure 1: 140/84 Code: 8480-6 Heart Rate 1: 100 bpm Respiratory Rate: 18 bpm SpO2: 96% Temperature: 36.6 (C) / 97.9 (F) We ight: 147 lbs Code: 22412-0 09/24/2020 Blood Pressure 1: 112/70 Code: 8480-6 [...] 98.1 (F) We ight: 152 lbs Code: 25347-9 09/12/2020 Blood Pressure 1: 133/70 Code: 8480-6 Heart Rate 1: 100 bpm Respiratory Rate: 16 bpm SpO2: 100% Temperature: 36.5 (C) / 97.7 (F) We ight: 152 lbs Code: 18581-1 04/18/2020 Blood Pressure 1: 144/78 Code: 8480-6 Heart Rate 1: 80 bpm Respiratory Rate: 16 bpm SpO2: 98% Temperature: 36.4 (C) / 97.5 (F) We ight: 160 lbs Code: 50028-7 10/12/2019 Blood Pressure 1: 124/78 Code: 8480-6 BMI: 24.8 Code: 57974-1 Heart Rate 1: 76 bpm Height: 5'8" Code: 8302-2 Respiratory Rate: 20 bpm SpO2: 98% Temperature: 36.6 (C) / 97.9 (F) Weight: 163 lbs Code: 72633-0 04/25/2019 Blood Pressure 1: 140/86 Code: 8480-6 BMI: 24.3 Code: 39035-4 Heart Rate 1: 92 bpm Height: 5'8" Code: 8302-2 Respiratory Rate: 20 bpm SpO2: 98% Temperature: 36.8 (C) / 98.3 (F) Weight: 160 lbs Code: 76045-5 04/12/2019 Blood Pressure 1: 146/86 Code: 8480-6 BMI: 25.4 Code: 63300-6 Heart Rate 1: 88 bpm Height: 5'8" Code: 8302-2 Respiratory Rate: 20 bpm SpO2: 98% Temperature: 36.5 (C) / 97.7 (F) Weight: 167 lbs Code: 97010-1 02/17/2018 Blood Pressure 1: 114/62 Code: 8480-6 Bl ood Pressure 2: 116/70 Code: 8480-6 BMI: 24.9 Code: 05773-3 Heart Rate 1: 76 bpm Height: 5'8" Code: 8302-2 Respiratory Rate: 20 bpm SpO2: 97% Temperature: 36.7 (C) / 98.0 (F) We ight: 164 lbs Code: 43265-0 04/07/2017 Blood Pressure 1: 122/84 Code: 8480-6 BMI: 24.3 Code: 05125-3 Heart Rate 1: 72 bpm Height: 5'8" Code: 8302-2 Respiratory Rate: 20 bpm SpO2: 96% Temperature: 36.9 (C) / 98.4 (F) Weight: 160 lbs Code: 15137-2 09/19/2016 Blood Pressure 1: 124/76 Code: 8480-6 BMI: 24.6 Code: 38231-2 Heart Rate 1: 68 bpm Height: 5'8" Code: 8302-2 Respiratory Rate: 20 bpm SpO2: 96% Temperature: 36.6 (C) / 97.9 (F) Weight: 162 lbs Code: 76910-2 12/18/2015 Blood Pressure 1: 136/70 Code: 8480-6 BMI: 24.3 Code: 25613-9 Heart Rate 1: 84 bpm Height: 5'8" Code: 8302-2 Respiratory Rate: 20 bpm Temperatu re: 36.5 (C) / 97.7 (F) Weight: 160 lbs Code: 67765-9 07/20/2015 Blood Pressure 1: 140/84 Code: 8480-6 BMI: 24.9 Code: 36965-5 Heart Rate 1: 76 bpm Height: 5'8" Code: 8302-2 Respiratory Rate: 20 bpm Temperatu re: 36.6 (C) / 97.9 (F) Weight: 164 lbs Code: 46985-0 02/07/2015 Blood Pressure 1: 164/82 Code: 8480-6 BMI: 25.5 Code: 71661-9 Heart Rate 1: 78 bpm Height: 5'8" Code: 8302-2 Respiratory Rate: 20 bpm Temperatu re: 36.5 (C) / 97.7 (F) Weight: 168 lbs Code: 10344-6 07/19/2014 Blood Pressure 1: 136/94 Code: 8480-6 BMI: 24.8 Code: 23443-6 Heart Rate 1: 88 bpm Height: 5'8" Code: 8302-2 Respiratory Rate: 20 bpm Temperatu re: 36.8 (C) / 98.2 (F) Weight: 163 lbs Code: 17484-4 07/06/2014 Blood Pressure 1: 136/92 Code: 8480-6 BMI: 24.2 Code: 77373-2 Heart Rate 1: 88 bpm Height: 5'8" Code: 8302-2 Respiratory Rate: 20 bpm Temperatu re: 36.9 (C) / 98.4 (F) Weight: 159 lbs Code: 77377-5 07/04/2014 Blood Pressure 1: 116/84 Code: 8480-6 Bl ood Pressure 2: 108/82 Code: 8480-6 Heart Rate 1: 88 bpm Respiratory Rate: 20 bpm Temperature: 3 6.7 (C) / 98.0 (F) Weight: 159 lbs Code: 66964-9 06/14/2014 Blood Pressure 1: 132/90 Code: 8480-6 BMI: 24.6 Code: 63769-4 Heart Rate 1: 100 bpm Height: 5'8" Code: 8302-2 Respiratory Rate: 20 bpm Temperatu re: 37.2 (C) / 99.0 (F) Weight: 162 lbs Code: 06676-0 03/09/2014 Blood Pressure 1: 122/62 Code: 8480-6 BMI: 25.4 Code: 05109-2 Heart Rate 1: 84 bpm Height: 5'8" Code: 8302-2 Respiratory Rate: 20 bpm Temperatu re: 36.6 (C) / 97.8 (F) Weight: 167 lbs Code: 89075-2 01/05/2014 Blood Pressure 1: 124/82 Code: 8480-6 BMI: 25.4 Code: 57742-9 Heart Rate 1: 84 bpm Height: 5'8" Code: 8302-2 Respiratory Rate: 20 bpm Temperatu re: 36.7 (C) / 98.0 (F) Weight: 167 lbs Code: 37756-7 11/09/2013 Blood Pressure 1: 138/82 Code: 8480-6 BMI: 24.5 Code: 65041-3 Heart Rate 1: 84 bpm Height: 5'8" Code: 8302-2 Respiratory Rate: 20 bpm Temperatu re: 37.1 (C) / 98.8 (F) Weight: 161 lbs Code: 08591-0 11/24/2012 Blood Pressure 1: 122/72 Code: 8480-6 BMI: 24.0 Code: 57241-7 Heart Rate 1: 66 bpm Height: 5'8" Code: 8302-2 Respiratory Rate: 20 bpm Temperatu re: 36.5 (C) / 97.7 (F) Weight: 158 lbs Code: 91454-0 11/03/2012 Blood Pressure 1: 130/84 Code: 8480-6 BMI: 23.7 Code: 44966-8 Heart Rate 1: 72 bpm Height: 5'8" Code: 8302-2 Respiratory Rate: 20 bpm Temperatu re: 36.2 (C) / 97.1 (F) Weight: 156 lbs Code: 28931-4 02/25/2012 Blood Pressure 1: 142/84 Code: 8480-6 BMI: 25.1 Code: 63394-2 Heart Rate 1: 68 bpm Height: 5'8" Code: 8302-2 Temperature: 37.2 (C) / 99.0 (F) Weight: 165 lbs Code: 35083-6 10/08/2011 Blood Pressure 1: 126/80 Code: 8480-6 BMI: 24.3 Code: 72185-1 Heart Rate 1: 84 bpm Height: 5'8" Code: 8302-2 Respiratory Rate: 20 bpm Temperatu re: 36.8 (C) / 98.2 (F) Weight: 160 lbs Code: 91864-4 09/24/2011 Blood Pressure 1: 136/80 Code: 8480-6 BMI: 24.3 Code: 91537-4 Heart Rate 1: 84 bpm Height: 5'8" Code: 8302-2 Respiratory Rate: 20 bpm Temperatu re: 36.8 (C) / 98.2 (F) Weight: 160 lbs Code: 14393-3 09/17/2011 Blood Pressure 1: 128/84 Cod e: 8480-6 09/09/2011 Blood Pressure 1: 142/84 Code: 8480-6 BMI: 24.3 Code: 49424-0 Height: 5'8" Code: 8302-2 Temperature: 36.7 (C) / 98.0 (F) Weight: 160 lbs Code : 63277-6 08/29/2010 Blood Pressure 1: 144/84 Code: 8480-6 Heart Rate 1: 72 bpm Temperature: 36.8 (C) / 98.2 (F) Weight: 156 lbs Code: 72923-7 12/12/2009 Blood Pressure 1: 146/88 Code: 8480-6 Heart Rate 1: 76 bpm Temperature: 36.6 (C) / 97.9 (F) Weight: 152 lbs Code: 61161-3 10/30/2009 Blood Pressure 1: 132/70 Code: 8480-6 Heart Rate 1: 80 bpm Temperature: 36.9 (C) / 98.4 (F) Weight: 151 lbs Code: 65997-0 10/01/2009 Blood Pressure 1: 142/86 Code: 8480-6 BMI: 23.0 Code: 85594-7 Heart Rate 1: 84 bpm Height: 5'8" Code: 8302-2 Temperature: 36.9 (C) / 98.4 (F) Weight: 151 lbs Code: 50055-3 Functional Status No Functional Status data Reason For Visit Reason For Visit Effective Dates Notes follow up 10/01/2020 follow up 09/24/2020 follow up 09/17/2020 follow up 09/14/2020 dvt right leg bone pain 09/12/2020 follow up 04/18/2020 well man exam (65+ years) 10/12/2019 Annual [facility] Wellness---no recent labs and patient not fasting today follow up 04/25/2019 follow up 04/12/2019 from [facility] well man exam (40-65 years) [...] 10/01/2009 establishing vis it, being treated for [place] Spotted Fever Encounters Encounter Performer Location Codes Date ([id number]) OFFICE/OUTPATIENT VISIT EST Diagnosis: On anticoagulant therapy[ICD10: Z79.01] Diagnosis: Acute deep vein thrombosis (DVT) of femoral vein of right lower extremity[ICD10: I82.411] Estephanie Howard NIKHILWALESKA [employer] [facility] CPT-4 : 04477 10/01/2020 ([id number]) OFFICE/OUTPATIENT VISIT EST Diagnosis: Right leg DVT[ICD10: I82.401] Tracie Howard FoxGuard SolutionsWALESKA [employer] [facility] CPT-4: 30620 09/24/2020 ([id number]) OFFICE/OUTPATIENT VISIT EST Diagnosis: Acute deep vein thrombosis (DVT) of femoral vein of right lower extremity[ICD10: I82.411] Diagnosis: On anticoagulant therapy[ICD10: Z79.01] Estephanie Dyan Howard NIKHILWALESKA [employer] [facility] CPT-4: 71113 09/17/2020 ([id number]) OFFICE/OUTPATIENT VISIT EST Diagnosis: Acute deep vein thrombosis (DVT) of femoral vein of right lower extremity[ICD10: I82.411] Estephanie Howard NIKHILWALESKA [employer] [facility] CPT-4 : 57739 09/14/2020 ([id number]) OFFICE/OUTPATIENT VISIT EST Diagnosis: Fall down stairs, initial encounter[ICD10: W10.8XXA] Diagnosis: Right leg swelling[ICD10: M79.89] Diagnosis: Right leg pain[ICD10: M79.604] Estephanie Rodas NIKHILWALESKA [employer] [facility] CPT-4: 89795 09/12/2020 ([id number]) OFFICE/OUTPATIENT VISIT EST Diagnosis: Hypertension[ICD10: I10] Diagnosis: Hyperglycemia, unspecified[ICD10: R73.9] Diagnosis: Mixed hyperlipidemia[ICD10: E78.2] Tracie KEYES [employer] CPT-4: 30743 04/18/2020 ([id number]) OFFICE/OUTPATIENT VISIT EST 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] Diagnosis: Cat scratch[ICD10: W55.03XA] Diagnosis: Hypertension[ICD10: I10] Diagnosis: Pulmonary nodules[ICD10: R91.8] Tracie KEYES [employer] CPT-4: 24103 04/25/2019 ([id number]) OFFICE/OUTPATIENT VISIT EST 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] Diagnosis: Dysphagia[ICD10: R13.10] Tracie CHANG [employer] CPT-4: 64846 04/12/2019 ([id number]) PER PM REEVAL EST PAT 65+ YR Diagnosis: Encounter for general adult medical examination without abnormal findings[ICD10: Z00.00] Diagnosis: Essential (primary) hypertension[ICD10: I10] Diagnosis: Hyperglycemia, unspecified[ICD10: R73.9] Tracie KEYES [employer] CPT-4: 35121 02/17/2018 ([id number]) NURSE/OUTPATIENT VISIT EST Diagnosis: Essential (primary) hypertension[ICD10: I10] Diagnosis: Mixed hyperlipidemia[ICD10: E78.2] Diagnosis: Hyperglycemia, unspecified[ICD10: R73.9] Diagnosis: Encounter for screening for other viral diseases[ICD10: Z11.59] Tracie KEYES [employer] CPT-4: 16496 01/29/2018 ([id number]) OFFICE/OUTPATIENT VISIT EST Diagnosis: Encounter for general adult medical examination without abnormal findings[ICD10: Z00.00] Diagnosis: Mixed hyperlipidemia[ICD10: E78.2] Diagnosis: Essential (primary) hypertension[ICD10: I10] Diagnosis: Impaired fasting glucose[ICD10: R73.01] Diagnosis: Encounter for screening for malignant neoplasm of prostate[ICD10: Z12.5] Tracie Stephy TRACIE S. STEPHY [facility] CPT-4: 66096 05/01/2017 ([id number]) OFFICE/OUTPATIENT VISIT EST Diagnosis: URI, ACUTE[ICD10: J06.9] Tracie GALARZA ElvinClark HOOD ZHOU [facility] CPT-4: 86634 04/07/2017 OFFICE/OUTPATIENT VISIT EST Diagnosis: Essential (primary) hypertension[ICD10: I10] Ashleydarron GALARZA ElvinClark [facility] CPT-4: 01490 09/19/2016 ([id number]) OFFICE/OUTPATIENT VISIT EST Diagnosis: Encounter for general adult medical examination without abnormal findings[ICD10: Z00.00] Diagnosis: Essential (primary) hypertension[ICD10: I10] Diagnosis: Impaired fasting glucose[ICD10: R73.01] Tracie CHAVEZ ElvinClark STEPHY [facility] CPT-4: 33555 01/04/2016 ([id number]) OFFICE/OUTPATIENT VISIT EST Diagnosis: Essential (primary) hypertension[ICD10: I10] Diagnosis: Mixed hyperlipidemia[ICD10: E78.2] Diagnosis: Impaired fasting glucose[ICD10: R73.01] Tracie CHAVEZ ElvinClark [facility] CPT-4: 59857 12/18/2015 ([id number]) PREV VISIT EST AGE 40-64 Diagnosis: Encounter for general adult medical examination without abnormal findings[ICD10: Z00.00] Diagnosis: Essential (primary) hypertension[ICD10: I10] Ashley GALARZA ElvinClark [facility] CPT-4: 05900 07/20/2015 OFFICE/OUTPATIENT VISIT EST Diagnosis: Mixed hyperlipidemia[ICD10: E78.2] Diagnosis: Impaired fasting glucose[ICD10: R73.01] Diagnosis: Insomnia, unspecified[ICD10: G47.00] Jacque MCHUGHQUE KAMALJIT ElvinClark [facility] CPT-4: 80172 02/07/2015 ([id number]) OFFICE/OUTPATIENT VISIT EST Diagnosis: Encounter for general adult medical examination without abnormal findings[ICD10: Z00.00] Diagnosis: Essential (primary) hypertension[ICD10: I10] Diagnosis: Mixed hyperlipidemia[ICD10: E78.2] Tracie MOHAN SClark CALVONDNORMAN [facility] CPT-4: 10896 02/02/2015 ([id number]) OFFICE/OUTPATIENT VISIT EST Diagnosis: SINUSITIS, ACUTE[ICD9: 461.9] Jacque KEYES DO [facility] CPT-4: 42389 07/19/2014 ([id number]) OFFICE/OUTPATIENT VISIT EST Diagnosis: Hypotension[ICD9: 458.9] Diagnosis: DYSPEPSIA[ICD9: 536.8] Diagnosis: HYPERTENSION[ICD9: 401.9] Tracie DURANLINE Lee GALEANO [facility] CPT-4: 69214 07/06/2014 ([id number]) OFFICE/OUTPATIENT VISIT EST Diagnosis: DIZZINESS/VERTIGO[ICD9: 780.4] Diagnosis: HYPOTENSION[ICD9: 458.9] Diagnosis: MALAISE AND FATIGUE[ICD9: 780.79] Tracie Stephy KEYES [facility] CPT-4: 46154 07/04/2014 ([id number]) OFFICE/OUTPATIENT VISIT EST Diagnosis: ARTHRALGIA-MULTIPLE SITES[ICD9: 719.49] Diagnosis: CEPHALGIA[ICD9: 784.0] Diagnosis: Uveitis[ICD9: 364.3] Tracie DURANLINE Lee KEYES DO [facility] CPT-4: 46154 06/14/2014 ([id number]) OFFICE/OUTPATIENT VISIT EST Diagnosis: HYPERTENSION[ICD9: 401.9] Diagnosis: OTHER ABNORMAL GLUCOSE[ICD9: 790.29] Tracie Nikhilwaleska ROGER KAMALJIT Lee OBRIENER [facility] CPT-4: 09485 03/09/2014 ([id number]) OFFICE/OUTPATIENT VISIT EST Diagnosis: OTHER ABNORMAL GLUCOSE[ICD9: 790.29] Tracie Nikhilrhiannanorman ROGER KAMALJIT Lee OBRIENER [facility] CPT-4: 65736 01/05/2014 ([id number]) OFFICE/OUTPATIENT VISIT EST Diagnosis: ROUTINE MEDICAL EXAM[ICD9: V70.0] Tracie Nikhilrhiannanorman DURANMICHAELA Murillo Lee KEYES DO [facility] CPT-4: 89139 11/18/2013 ([id number]) PREV VISIT EST AGE 40-64 Diagnosis: ROUTINE MEDICAL EXAM[ICD9: V70.0] Diagnosis: HYPERLIPIDEMIA NEC/NOS[ICD9: 272.4] Diagnosis: FOREIGN BODY FINGER[ICD9: 915.6] [facility]: 79670 11/09/2013 ([id number]) OFFICE/OUTPATIENT VISIT EST Diagnosis: CERVICALGIA[ICD9: 723.1] Diagnosis: B12 DEFIC ANEMIA NEC[ICD9: 281.1] Diagnosis: DISTURBANCE OF SKIN SENSATION (Paresthesia)[ICD9: 782.0] [facility] CPT-[facility]: 75848 11/24/2012 OFFICE/OUTPATIENT VISIT EST Diagnosis: Neck pain on left side[ICD9: 723.1] Diagnosis: Tendonitis of elbow, left[ICD9: 727.09] Jacque MongeSharonjorge luis Howard [facility] CPT-4: 92362 11/03/2012 OFFICE/OUTPATIENT VISIT EST Diagnosis: Oral lesion[ICD9: 528.9] Diagnosis: Herpes zoster[ICD9: 053.9] Diagnosis: FEBRILE ILLNESS[ICD9: 780.60] Liz Randall [facility] CPT-[facility]: 26873 02/25/2012 OFFICE/OUTPATIENT VISIT EST Diagnosis: MALAISE AND FATIGUE[ICD9: 780.79] Diagnosis: B12 DEFIC ANEMIA NEC[ICD9: 281.1] Diagnosis: SPOTTED FEVERS[ICD9: 082.0] Diagnosis: SPASM OF MUSCLE[ICD9: 728.85] [facility] CPT-[facility]: 56133 10/08/2011 ([id number]) OFFICE/OUTPATIENT VISIT EST Diagnosis: MALAISE AND FATIGUE[ICD9: 780.79] Diagnosis: SPOTTED FEVERS[ICD9: 082.0] Diagnosis: B12 DEFIC ANEMIA NEC[ICD9: 281.1] Tracie Howard [facility] CPT-4: 42832 09/24/2011 ([id number]) OFFICE/OUTPATIENT VISIT EST Diagnosis: B12 DEFIC ANEMIA NEC[ICD9: 281.1] Diagnosis: HYPERTENSION[ICD9: 401.9] Diagnosis: MALAISE AND FATIGUE[ICD9: 780.79] Diagnosis: OTHER ABNORMAL GLUCOSE[ICD9: 790.29] Tracie CALVONDER DO [employer] CPT-4: 41257 09/17/2011 OFFICE/OUTPATIENT VISIT EST Diagnosis: NONVENOM ARTHROPOD BITE[ICD9: E906.4] Diagnosis: HYPERTENSION[ICD9: 401.9] Tracie CALVO NDER DO [employer] CPT-4: 50422 09/09/2011 PREV VISIT EST AGE 40-64 Tracie OBRIENE R DO [employer] CPT-4: 82639 08/29/2010 ([id number]) OFFICE/OUTPATIENT VISIT, EST Tracie KEYES DO [employer] CPT-4: 30595 12/12/2009 ([id number]) OFFICE/OUTPATIENT VISIT, EST Tracie CALVONDER DO [employer] CPT-4: 59412 10/30/2009 ([id number]) OFFICE/OUTPATIENT VISIT, NEW Tracie CHAVEZ SClark ORENDER DO [employer] CPT-4: 20202 10/01/2009 Plan of Care Planned Activity Notes Codes Status Date Visit Diagnosis Plan: Acute deep vein th rombosis (DVT) of femoral vein of right lower extremity Discussion: Pain and swelling markedly i mproved. Doing well, denies any concerns. Continue Eliquis 5 mg BID. F/U in 1 month or sooner for concerns. Discussed repeating doppler in November at 3 months. ICD-9 : 453.41 ICD-10 : I82.411 10/01/2020 Appointment: [facility]idi [facility] [phone] [facility] [facility] 10/01/2020 Patient Education: [...] I82.401 09/24/2020 [facility]ment: [facility] [phone] [facility] [facility] 09/24/2020 Visit Diagnosis Plan: [...] extremity Discussion: Swelling decreasing. F/U 1 w [facility] [place] for recheck. ICD-9 : 453.41 ICD-10 : I82.411 09/17/2020 Appointment: Estephanie Zaidi WPtel: [phone] [facility] US FOLLOW UP 09/17/2020 Patient Education: Patient Medication Summary Completed 09/17/2020 Patient Education: Eliquis- [employer] Coupon [id number] https://www.[employer].ai/sampleHelioz R[employer]D/resources/getResource/61/r15areft-7oux-965j-31 Completed 09/17/2020 Patient Education: tramadol- [employer] Coupon [id number] https://www.[employer]/sampleHelio[employer]/resources/getResource/61/sap94359-ia51-7y79-43 Completed 09/17/2020 Visit Diagnosis Plan: Acute deep [...] 09/14/2020 Appointment: Estephanie Zaidi WPtel[facility] [phone] [facility] [facility] 09/14/2020 Patient Education: Patient Medication Summary Completed 09/14/2020 Visit Diagnosis Plan: Right leg swelling Discussion: W ill send to [facility] for stat doppler to r/o DVT d/t swelling and pain and f/u with results. ICD-9 : 729.81 ICD-10 : M79.89 09/12/2020 Appointment: Dyan Estephanie WPtel: [phone] [facility] ACUTE ILLNESS 09/12/2020 Patient Education: Patient Medication [...] R73.9 04/18/2020 Appointment: Tracie Keyes [facility]Ptel[facility] [phone] [facility] [facility] 04/18/2020 Patient Education: lisinopril- Opt[employer] Coupon [id number] https://www.[employer].SimilarWeb/samplemd/resources/getResource/61/544685jq-ltxy-67o6-18 Completed 04/18/2020 Visit Diagnosis Plan: Essential (primary) hypertension Discussion: Stable on lisinopril ICD-9 : 401.9 ICD-10 : I10 10/12/2019 Visit Diagnosis Plan: Encounter for [facility] adult medical examination without abnormal findings Discussion: Mediterranean diet Combinati on of cardio and weight bearing exercise Will return for fasting lab next week ICD-9 : V70.0 ICD-10 : Z00.00 10/12/2019 Visit Diagnosis Plan: Hyperglycemia, unspecified Discu ssion: Will return for HbA1C next week ICD-9 : 790.29 ICD-10 : R73.9 10/12/2019 Appointment: Tracie Keyes WPtel: [address] [place], [place] [phone] INSIDE Annual Well Visit 10/12/2019 Appointment: Viridiana Lima [address] [facility] FOLLOW UP 05/16/2019 Visit Diagnosis Plan: Pulmonary [...] : W55.03XA 04/25/2019 Appointment: Tracie Keyes WPtel: [address] [place] [address] Hospital Follow Up 04/25/2019 Patient Education: nystatin- [employer] Coupon [id number] https://www.[employer].com/samplemd/resources/getResource/61/31069id1-6226-60i4-5l Completed 04/25/2019 Visit Diagnosis Plan: Submandibular gland [...] : K11.1 04/12/2019 Appointment: Tracie Keyes WPtel: [address] [place] [address] 04/12/2019 Appointment: Tracie Keyes WPtel: [address] [place], [place] [phone] US LM CANCELED 08/09/2018 Visit Diagnosis Plan: Essential (primary) hypertension Discussion: Stable ICD-9 : 401.9 ICD-10 : I10 02/17/2018 Visit Diagnosis Plan: Encounter for [facility] adult medical examination without abnormal findings Discussion: Lab discussed Refuses prosta te check Refuses colonoscopy Will check with pharmacy on Shingrix/Flu shot and Prevnar ICD-9 : V70.0 ICD-10 : Z00.00 02/17/2018 Visit Diagnosis Plan: Hyperglycemia, unspecified Discu ssion: Wants to focus on diet/exercise and recheck in 6mos ICD-9 : 790.29 ICD-10 : R73.9 02/17/2018 Appointment: Tracie Keyes WPtel: [address] [place] [address] Annual Well Visit 02/17/2018 Appointment: Tracie Keyes WPtel: [address] [place], [place] [phone] US LAB 01/29/2018 Appointment: Tracie Keyes WPtel: [address] [place] [address] US LAB 05/01/2017 Patient Education: Patient Medication [...] Rest, Fluids... 04/07/2017 Appointment: Tracie Keyes WPtel: [address] [place] [address] ACUTE ILLNESS 04/07/2017 Patient Education: Patient Medication Summary Completed 04/07/2017 Visit Plan: Had meds refilled for 6 joseph hs the other day. RTC 6 months Described s/s of heart disease that he would need to report for to us or ER/UC. 09/19/2016 Appointment: Ashley Crenshaw WPtel: [phone] [facility] 09/18 lm`sl FOLLOW UP 09/19/2016 Patient Education: Patient Medication Summary Completed 09/19/2016 Appointment: Tracie Keyes WPtel: [phone] [place], [place] [phone] US LAB 01/04/2016 Patient Education: Patient Medication Summary Completed 01/04/2016 Visit Plan: Will get flu shot at work Up date fasting lab 12/18/2015 Appointment: Tracie Keyes WPtel: [phone] [place], [place] [phone] 12/16 lm~sl FOLLOW UP 12/18/2015 Patient Education: Patient Medication Summary Completed 12/18/2015 Visit Plan: Pt declined rectal/prostate exam. Encouraged to get colonoscopy Plan labs for fall 2015 Continue on current meds but send in home B/P since today's B/P is elevated to see if dosage change is indicated. RTC in 6 months 07/20/2015 Appointment: Ashley Crenshaw WPtel: [phone] [facility] 07/18 lm ~sl Annual Well Visit 07/20/2015 Patient Education: Patient Medication Summary Completed 07/20/2015 Visit Plan: Resume BP med Resume Metform in( has been off > 9 months) Add HgbA1C to labs drawn last week, Trial of Selinor for sleep. Will let us know how he does with it. 02/07/2015 Appointment: Jacque Lopez WPtel: [phone] [place], [place] [phone] 02/06/15 vm cn....appt confirmed cn FOLLOW UP 02/07/2015 Patient Education: Patient Medication Summary Completed 02/07/2015 Patient Education: [facility] - Saving AutoInj - Lisinopril - 18-64 - Dynamic Portal ID Completed 02/07/2015 Appointment: Tracie Keyes WPtel: [address] [place], [place] [phone] LAB 02/02/2015 Patient Education: Patient Medication Summary Completed 02/02/2015 Appointment: Jacque Lopez WPtel: [address] [place], [place] [phone] ACUTE ILLNESS 07/19/2014 Patient Education: Patient Medication Summary Completed 07/19/2014 Visit Plan: Restart Diltiazem Continue t o hydrate Call in 3 days on how doing 07/06/2014 Appointment: Tracie Keyes WPtel: [address] [place] [address] 07/05 appt confirmed cn FOLLOW UP 07/07/19 Patient Education: Patient Medication Summary Completed 07/06/2014 Visit Plan: Hold lisinopril hct Hydrate Recheck 2 days Meclizine 25mg q HS Hold metformin Call in AM 07/04/2014 Appointment: Tracie Keyes WPtel: [address] [place] [address] FOLLOW UP 07/04/2014 Patient Education: Patient Medication Summary Completed 07/04/2014 Appointment: Tracie Keyes WPtel: [address] [place], [place] [id number] ACUTE ILLNESS 06/14/2014 Patient Education: Patient Medication Summary Completed 06/14/2014 Appointment: Tracie Keyes WPtel: [address] [place], [place] [phone] FOLLOW UP 03/09/2014 Patient Education: Patient Medication Summary Completed 03/09/2014 Visit Plan: Continue metformin at curren t dose Accuchecks daily alternating times Diabetic diet info given Check CMP with HbA1C in 2mos then fwup 01/05/2014 Appointment: Tracie Keyes WPtel: [address] [place], [place] [phone] FOLLOW UP 01/05/2014 Patient Education: Patient Medication Summary Completed 01/05/2014 Visit Plan: Did not need lab so will jus t fwup as scheduled 01/03/2014 Appointment: Tracie Keyes WPtel: [address] [place], [place] [phone] US LAB 01/03/2014 Patient Education: Patient Medication Summary Completed 01/03/2014 Appointment: Tracie Keyes WPtel: [address] [place], [place] [phone] US LAB 11/18/2013 Patient Education: Patient Medication Summary Completed 11/18/2013 Visit Plan: Continue current meds Remova l of splinter as above Keflex for 1 week Continue current meds Fwup next week for fasting lab including PSA 11/09/2013 Appointment: Tracie Keyes WPtel: [address] [place] [address] 11/08 Annual Well Visit 11/09/2013 Patient Education: Patient Medication Summary Completed 11/09/2013 Patient Education: [facility] - Saving AutoInj - Lisinopril - 18+ - Dynamic Portal ID Completed 11/09/2013 Appointment: Tracie Keyes WPtel: [address] [place] [address] 11/23 left message FOLLOW UP 11/24/2012 Patient Education: Patient Medication Summary Completed 11/24/2012 Appointment: Jacque Lopez WPtel: [address] [place] [address] FOLLOW UP 11/10/2012 Appointment: Jacque Lopez WPtel: [address] [place] [address] ACUTE ILLNESS 11/03/2012 Patient Education: Patient Medication Summary Completed 11/03/2012 Appointment: Liz Randall WPtel: [address] [place], [place] [id number] ACUTE ILLNESS 02/25/2012 Patient Education: Patient Medication Summary Completed 02/25/2012 Visit Plan: Finish abx Continue B12 OMT done Add Skelaxin 800mg q HS 10/08/2011 Appointment: Tracie Keyes WPtel: [address] [place], [place] [phone] voicemail FOLLOW UP 10/08/2011 Patient Education: Patient Medication Summary Completed 10/08/2011 Appointment: Tracie Keyes WPtel: [address] [place], [place] [phone] FOLLOW UP 09/24/2011 Patient Education: Patient Medication Summary Completed 09/24/2011 Appointment: Tracie Keyes WPtel: [address] [place], [place] [phone] US LAB 09/17/2011 Patient Education: Patient Medication [...] fasting labs. 09/09/2011 Appointment: Liz Randall WPtel: [address] [place] [address] ACUTE ILLNESS 09/09/2011 Patient Education: Patient Medication Summary Completed 09/09/2011 Visit Plan: Change lisinopril hct to 20/ 12.5mg 2 daily and continue cardizem Check fasting lab--drawn today 08/29/2010 Appointment: Tracie Keyes WPtel: [address] [place], [place] [phone] FOLLOW UP 08/29/2010 Patient Education: Patient Medication Summary Completed 08/29/2010 Appointment: Tracie Keyes WPtel: [address] [place], [place] [phone] FOLLOW UP 12/12/2009 Patient Education: Patient Medication Summary Completed 12/12/2009 Appointment: Tracie Keyes WPtel: [address] [place], [place] [phone] FOLLOW UP 11/27/2009 Visit Plan: Finish Abx B12 given Start d aily 1000mcg B12 Cont allopurinol and check B12 and uric acid in 1mo. 10/30/2009 Appointment: Tracie Keyes WPtel: [phone] [facility] FOLLOW UP 10/30/2009 Patient Education: Patient Medication Summary Completed 10/30/2009 Appointment: Tracie Keyes WPtel: [phone] [facility] NEW PATIENT 10/01/2009 Patient Education: Patient Medication Summary Completed 10/01/2009 Referral: Sav Olivo WPtel: [address] [place], [place] [id number] Referral Initiated Instructions Comment . Supportive care. [...]
--- NOTE | 2020-11-05 10:58 | Diagnostic Imaging Report ---
INDICATION: Left axillary lymphadenopathy. Patient presents for ultrasound guided biopsy. Patient brought to the procedure room and placed on table in the supine position. Ultrasound imaging of the left axilla was performed to evaluate appropriate entry site. Left axilla was then prepped and draped in usual sterile fashion. Small amount of 1% lidocaine was utilized for local anesthesia. Total of 4 core biopsies were obtained of the dominant lymph node in left axilla utilizing a 14-gauge Achieve needle. Needle was removed and hemostasis was obtained. Patient tolerated procedure well and left the department in stable condition. IMPRESSION: Successful ultrasound guided core biopsy of enlarged left axillary lymph node. Pathology results are currently pending. Dictated by: Dictated on workstation # [id number]
== END ==
LOC: RAD 09:25
PROVIDERS: ATTEND Family Medicine
DX: R59.0 Localized enlarged lymph nodes (principal)
CPT/HCPCS: 76942

== ENCOUNTER 2020-11-08 08:33 | Inpatient (IN) | payer MEDICARE ==
[2020-11-08] VITALS (9 sets, daily range): BP systolic 104–130; BP diastolic 72–84
[~2020-11-08] VITALS: Ht 172 cm; Wt 71.5 kg
[~2020-11-08 08:33] MED LIST changes: -ACHD5005 PO; -APIX5TAB PO; -LIDOCAINE 1% INJ 20 ML 20 ML VIAL INJ ONE; -LISI40TA9 PO; -MULT-1102 PO
--- NOTE | 2020-11-08 08:55 | ED Dyspnea ---
General Stated Complaint: COUGH,SOB, Source of Information: Patient Exam Limitations: No Limitations History of Present Illness Date Seen by Provider: Nov 08, 2020 Time Seen by Provider: 08:40 Initial Comments Patient is a 70-year-old male who presents to the emergency department with increasing shortness of breath over the last week. Patient tells me that he was diagnosed about 6 weeks ago with a blood clot in his right calf that developed after he had a fall down some stairs. Patient was subsequently started on Eliquis twice daily per his primary care physician. He states he is taking it faithfully every day twice a day since that time except for a couple of days last week when he had to hold medication for a lymph node biopsy. Patient states over the last several weeks he has had increasing lymphadenopathy, generalized throughout his body. He states in the last week the lymph nodes have become more tender and painful. No fevers or chills. He is scheduled for an oncology follow-up after the results of the biopsy have been obtained which she states should be today. He has no pain. He reports decreasing tolerance to any exertion secondary to the shortness of breath. States that he has a dry cough. He is Covid vaccinated. Got Maderna. All other review of systems reviewed and negative except as stated Timing/Duration: 1 Week, Constant, Increasing Severity: Moderate Modifying Factors: Worse With Activity, Worse With Coughing Associated Symptoms: Loss of Appetite Allergies and Home Medications Allergies Coded Allergies: No Known Drug Allergies (Unverified , 03/23/18) Patient Home Medication List Home Medication List Reviewed: Yes Apixaban (Eliquis) 5 Mg Tablet, 5 MG PO BID, (Reported) Entered as Reported by: CHAMP TORRE on 11/08/201411 Last Action: Reviewed Hydrocodone/Acetaminophen (Hydrocodone-Acetamin 5-325 mg) 1 Each Tablet, 1 EA PO Q6H PRN for PAIN-MODERATE (5-7), (Reported) Entered as Reported by: CHAMP TORRE on 11/08/201411 Last Action: Reviewed Lisinopril (Lisinopril) 40 Mg Tablet, 40 MG PO DAILY, (Reported) Entered as Reported by: CHAMP TORRE on 11/08/201411 Last Action: Reviewed Multivit-Min/Folic/Vit K/Lycop (Men's Multivitamin Tablet) 1 Each Tablet, 1 EACH PO DAILY, (Reported) Entered as Reported by: CHAMP TORRE on 11/08/20 1412 Last Action: Reviewed Discontinued Medications Ibuprofen (Ibu-200) 200 Mg Tablet, 400 MG PO Q8H PRN for PAIN-MODERATE (5-7), (Reported) Discontinued Reason: No Longer Taking Entered as Reported by: CHEMA EISENBERG on 04/14/19 1721 Last Action: Discontinued Prednisone (Prednisone) 10 Mg Tab.ds.pk, 10 MG PO DAILY Discontinued Reason: No Longer Taking Prescribed by: ERI VARGAS on 04/16/19 1012 Last Action: Discontinued Review of Systems Review of Systems Constitutional: see HPI EENTM: no symptoms reported Respiratory: cough, dyspnea on exertion, short of breath Cardiovascular: no symptoms reported Gastrointestinal: no symptoms reported Genitourinary: no symptoms reported Musculoskeletal: no symptoms reported Skin: no symptoms reported Hematologic/Lymphatic: Swollen Glands All Other Systems Reviewed Negative Unless Noted: Yes Past Tdgbdgi-Rxfplm-Iywscx Hx Seasonal Allergies Seasonal Allergies: Yes Past Medical History Orthopedic Respiratory: No Cardiac: Yes Hypertension Neurological: No Genitourinary: No Gastrointestinal: No Musculoskeletal: Yes Arthritis Endocrine: No HEENT: Yes Glaucoma Cancer: No Psychosocial: No Integumentary: No Physical Exam Vital Signs Vital Signs - First Documented 11/08/20 11/08/20 00:09 08:45 Temp 36.0 Pulse 102 Resp 18 B/P (MAP) 98/73 (81) Pulse Ox 93 O2 Delivery Room Air Capillary Refill : Height, Weight, BMI Height: 5'8.00" Weight: 160lbs. 0.0oz. 72.969333sw; 22.86 BMI Method: General Appearance: No Apparent Distress, WD/WN HEENT: PERRL/EOMI Neck: Lymphadenopathy (L) (significant), Lymphadenopathy (R) Respiratory: Lungs Clear, Normal Breath Sounds, No Accessory Muscle Use, No Respiratory Distress Cardiovascular: Regular Rate, Rhythm, Normal Peripheral Pulses, Tachycardia Extremity: Normal Inspection, Normal Range of Motion, Non Tender, No Calf Tenderness Neurologic/Psychiatric: Alert, Oriented x3, No Motor/Sensory Deficits, Normal Mood/Affect Skin: Normal Color, Warm/Dry Progress/Results/Core Measures Results/Orders Lab Results Laboratory Tests Test 11/08/20 08:50 Range/Units White Blood Count 12.3 H 4.3-11.0 10^3/uL Red Blood Count 4.66 4.30-5.52 10^6/uL Hemoglobin 14.3 13.3-17.7 g/dL Hematocrit 42 40-54 % Mean Corpuscular Volume 90 80-99 fL Mean Corpuscular Hemoglobin 31 25-34 pg Mean Corpuscular Hemoglobin Concent 34 32-36 g/dL Red Cell Distribution Width 13.7 10.0-14.5 % Platelet Count 13 *L 130-400 10^3/uL Mean Platelet Volume 9.0-12.2 fL Immature Granulocyte % (Auto) 1 % Neutrophils (%) (Auto) 84 H 42-75 % Lymphocytes (%) (Auto) 5 L 12-44 % Monocytes (%) (Auto) 7 0-12 % Eosinophils (%) (Auto) 2 0-10 % Basophils (%) (Auto) 1 0-10 % Neutrophils # (Auto) 10.3 H 1.8-7.8 10^3/uL Lymphocytes # (Auto) 0.6 L 1.0-4.0 10^3/uL Monocytes # (Auto) 0.9 0.0-1.0 10^3/uL Eosinophils # (Auto) 0.3 0.0-0.3 10^3/uL Basophils # (Auto) 0.1 0.0-0.1 10^3/uL Immature Granulocyte # (Auto) 0.1 0.0-0.1 10^3/uL Neutrophils % (Manual) 81 % Lymphocytes % (Manual) 8 % Monocytes % (Manual) 7 % Eosinophils % (Manual) 3 % Band Neutrophils 1 % Percent Immature Platelet Fraction 26.3 H 0.0-7.6 % Blood Morphology Comment NORMAL Prothrombin Time 18.5 H 12.2-14.7 SEC INR Comment 1.5 H 0.8-1.4 Activated Partial Thromboplast Time 31 24-35 SEC Sodium Level 131 L 135-145 MMOL/L Potassium Level 4.3 3.6-5.0 MMOL/L Chloride Level 97 L 98-107 MMOL/L Carbon Dioxide Level 19 L 21-32 MMOL/L Anion Gap 15 H 5-14 MMOL/L Blood Urea Nitrogen 25 H 7-18 MG/DL Creatinine 1.42 H 0.60-1.30 MG/DL Estimat Glomerular Filtration Rate 50 BUN/Creatinine Ratio 18 Glucose Level 162 H 70-105 MG/DL Calcium Level 9.7 8.5-10.1 MG/DL Corrected Calcium 9.7 8.5-10.1 MG/DL Total Bilirubin 0.8 0.1-1.0 MG/DL Aspartate Amino Transf (AST/SGOT) 28 5-34 U/L Alanine Aminotransferase (ALT/SGPT) 11 0-55 U/L Alkaline Phosphatase 90 40-136 U/L Total Protein 7.3 6.4-8.2 GM/DL Albumin 4.0 3.2-4.5 GM/DL My Orders Orders - TONE RUIZ MD Ed Iv/Invasive Line Start (11/08/20 08:55) Cbc With Automated Diff (11/08/20 08:55) Comprehensive Metabolic Panel (11/08/20 08:55) Ekg Tracing (11/08/20 08:55) Chest 1 View, Ap/Pa Only (11/08/20 08:55) Protime With Inr (11/08/20 09:02) Partial Thromboplastin Time (11/08/20 09:02) Manual Differential (11/08/20 08:50) Type And Screen (11/08/20 09:27) Vital Signs/I&O 11/08/20 11/08/20 00:09 08:45 Temp 36.0 Pulse 102 Resp 18 B/P (MAP) 98/73 (81) Pulse Ox 93 98 O2 Delivery Room Air Room Air Progress Progress Note : Time: 09:30 Progress Note noted patient with platelets of 13K. Also acute kidney injury with significantly increased Creatinine over baseline. new development of right pleural effusion (mild). review of patient's medical record shows insufficient sample obtained when he had his lymph node biopsy a week ago - unable to get diagnosis. also pre-existing known PE's right lung on CT neck/chest back on the 19 of october. Will discuss with Dr Keyes for admission, repeat bx and platelet transfusion. Initial ECG Impression Date: Nov 08, 2020 Initial ECG Impression Time: 09:10 Initial ECG Rate: 99 Initial ECG Rhythm: Normal Sinus Initial ECG Intervals: Normal Initial ECG Impression: Nonspecific Changes Comment STTW flattening lateral leads and Nonspecific changes inferiorly; no ST elevation Diagnostic Imaging Diagonstic Imaging: Xray Plain Films/CT/US/NM/MRI: chest Comments NAME: TARAS REYNOLDS [facility] REC#: [id number] PT STATUS: REG ER : 1950 PHYSICIAN: TONE RUIZ MD ADMIT DATE: 11/08/20/ER Draft Date of Exam:11/08/20 CHEST 1 VIEW, AP/PA ONLY Clinical indication: Patient with cough and shortness of breath. Exam: Portable chest x-ray upright view. Comparisons: CT scan of the neck and chest with contrast dated 10/19/2020. Findings: There is a small right pleural effusion and minimal right basilar atelectasis versus infiltrate. These findings have progressed compared to the prior CT scan of the neck and chest. The remainder of the lungs are clear. There is no pneumothorax. Pulmonary vasculature and cardiac silhouette are within normal limits. Partially visualized anterior cervical disk fusion hardware is seen. IMPRESSION: There is interval progression of a small right pleural effusion and mild right basilar atelectasis versus infiltrate. Dictated on workstation # [id number] Dict: 11/08/20916 Trans: 11/08/20919 [id number] Interpreted by: JOHN WILLARD MD Electronically signed by: Departure Communication (Admissions) Time/Spoke to Admitting Phy: 09:[address] Keyes Time/Spoke to Consulting Phy: 09:[address] Isaac and Dr Larios; platelets if count less than 10 or able to get biopsy in next 24-48 hours. need biopsy HERMANN. Dr Larios states will not be ready for biopsy until thursday am Impression Primary Impression: Dyspnea Qualified Codes: R06.00 - Dyspnea, unspecified Additional Impressions: Thrombocytopenia Acute kidney injury Disposition: ADMITTED INPATIENT Condition: Stable Admissions Decision to Admit Reason: Admit from ER (General) Decision to Admit/Date: Nov 08, 2020 Time/Decision to Admit Time: 09:38 Departure-Patient Inst. Referrals: MICHELL KEYES DO (PCP/Family) Primary Care Physician TONE RUIZ MD Nov 08, 2020 08:55
[2020-11-08 09:01] LABS: HEMOGLOBIN 14.3 g/dL (13.3-17.7)
[2020-11-08 09:03] LABS: BASOPHILS # (AUTO) 0.1 10^3/uL (0.0-0.1); BASOPHILS % (AUTO) 1 % (0-10); EOSINOPHILS # (AUTO) 0.3 10^3/uL (0.0-0.3); EOSINOPHILS % (AUTO) 2 % (0-10); HEMATOCRIT 42 % (40-54); LYMPHOCYTES # (AUTO) 0.6 10^3/uL (1.0-4.0); LYMPHOCYTES % (AUTO) 5 % (12-44); MEAN CORPUSCULAR HEMOGLOBIN 31 pg (25-34); MEAN CORPUSCULAR HGB CONC 34 g/dL (32-36); MEAN CORPUSCULAR VOLUME 90 fL (80-99); MONOCYTES # (AUTO) 0.9 10^3/uL (0.0-1.0); MONOCYTES % (AUTO) 7 % (0-12); NEUTROPHILS # (AUTO) 10.3 10^3/uL (1.8-7.8); NEUTROPHILS % (AUTO) 84 % (42-75); WHITE BLOOD COUNT 12.3 10^3/uL (4.3-11.0)
[2020-11-08 09:08] LABS: PLATELET COUNT 13 10^3/uL (130-400)
[2020-11-08 09:11] LABS: POTASSIUM 4.3 MMOL/L (3.6-5.0)
[2020-11-08 09:12] LABS: CALCIUM 9.7 MG/DL (8.5-10.1)
[2020-11-08 09:13] LABS: TOTAL PROTEIN 7.3 GM/DL (6.4-8.2)
[2020-11-08 09:15] LABS: BILIRUBIN,TOTAL 0.8 MG/DL (0.1-1.0); INR 1.5 (0.8-1.4); PROTHROMBIN TIME PATIENT 18.5 SEC (12.2-14.7)
[2020-11-08 09:17] LABS: CREATININE SERUM 1.42 MG/DL (0.60-1.30)
--- NOTE | 2020-11-08 09:20 | Diagnostic Imaging Report ---
Clinical indication: Patient with cough and shortness of breath. Exam: Portable chest x-ray upright view. Comparisons: CT scan of the neck and chest with contrast dated 10/19/2020. Findings: There is a small right pleural effusion and minimal right basilar atelectasis versus infiltrate. These findings have progressed compared to the prior CT scan of the neck and chest. The remainder of the lungs are clear. There is no pneumothorax. Pulmonary vasculature and cardiac silhouette are within normal limits. Partially visualized anterior cervical disk fusion hardware is seen. IMPRESSION: There is interval progression of a small right pleural effusion and mild right basilar atelectasis versus infiltrate. Dictated by: Dictated on workstation # [id number]
[2020-11-08 09:21] LABS: BAND NEUTROPHILS 1 %; EOSINOPHILS % (MANUAL) 3 %; LYMPHOCYTES % (MANUAL) 8 %; MONOCYTES % (MANUAL) 7 %; NEUTROPHILS % (MANUAL) 81 %; RBC MORPH NORMAL
[2020-11-08] MEDS: HYDROcodone/APAP 5 MG/325 MG (LORTAB) TAB PO PRN ×2 (10:49→18:16)
[2020-11-08] MEDS: NS IV 1000 ML 1,000 ML IV SCH ×3 (10:49→21:05)
[2020-11-08] MEDS ORDERED: RT-ALBUTEROL SULF 2.5 MG/3 ML PRE-MIX VIAL INH PRN (11:30)
--- NOTE | 2020-11-08 12:47 | Consultation - Surgery ---
JOHN ROSENBAUM 11/08/20 1247: History of Present Illness History of Present Illness Patient Consulted On(sanjiv/time) 11/08/20 12:33 Date Seen by Provider: Nov 08, 2020 Time Seen by Provider: 12:15 History of Present Illness 70yo M with history of R calf blood clot presents with severe SOB and nonproductive nonbloody cough onset 1 week ago. Pt had a L axilla lymph node biopsy 4 days ago for possible lymphoma, but biopsy did not obtain enough sample. Consulted for repeat biopsy by Dr. Larios earliest this Thursday am. On exam, enlarged nontender L supraclavicular lymphnodes present. Incision site for past biopsy seems to be nonbloody, nonpurulent, and nonerythmatous. Pt reports that L supraclavicular lymphnodes got larger after his biopsy. Reports mild cough. Denies SOB, wheezing, fever, chills, nausea, vomiting, diarrhea, or chest pain. Current platelet count at 13. Pt reports still taking eliquis 2x a day and took one this morning. Allergies and Home Medications Allergies Coded Allergies: No Known Drug Allergies (Unverified , 03/23/18) Patient Home Medication List Apixaban (Eliquis) 5 Mg Tablet, 5 MG PO BID, (Reported) Entered as Reported by: CHAMP TORRE on 11/08/201411 Last Action: Reviewed Hydrocodone/Acetaminophen (Hydrocodone-Acetamin 5-325 mg) 1 Each Tablet, 1 EA PO Q6H PRN for PAIN-MODERATE (5-7), (Reported) Entered as Reported by: CHAMP TORRE on 11/08/201411 Last Action: Reviewed Lisinopril (Lisinopril) 40 Mg Tablet, 40 MG PO DAILY, (Reported) Entered as Reported by: CHAMP TORRE on 11/08/201411 Last Action: Reviewed Multivit-Min/Folic/Vit K/Lycop (Men's Multivitamin Tablet) 1 Each Tablet, 1 EACH PO DAILY, (Reported) Entered as Reported by: CHAMP TORRE on 11/08/201411 Last Action: Reviewed Discontinued Medications Ibuprofen (Ibu-200) 200 Mg Tablet, 400 MG PO Q8H PRN for PAIN-MODERATE (5-7), (Reported) Discontinued Reason: No Longer Taking Entered as Reported by: CHEMA EISENBERG on 04/14/19 1721 Last Action: Discontinued Prednisone (Prednisone) 10 Mg Tab.ds.pk, 10 MG PO DAILY Discontinued Reason: No Longer Taking Prescribed by: ERI VARGAS on 04/16/19 1012 Last Action: Discontinued Past Zljtqjo-Nscmhd-Ckrcmt Hx Patient Social History Drug of Choice: POT Smoking Status: Former Smoker Recent Hopitalizations: No Alcohol Use?: Yes Substance type: Marijuana Have you traveled recently?: No Immunizations Up To Date Date of Pneumonia Vaccine: Feb 11, 2018 Seasonal Allergies Seasonal Allergies: Yes Surgeries Surgeries: Orthopedic Respiratory History of Respiratory Disorde: No Cardiovascular History of Cardiac Disorders: Yes Cardiac Disorders: Hypertension Neurological History of Neurological Disord: No Genitourinary History of Genitourinary Disor: No Gastrointestinal History of Gastrointestinal Di: No Musculoskeletal History of Musculoskeletal Dis: Yes Musculoskeletal Disorders: Arthritis Endocrine History of Endocrine Disorders: No HEENT History of HEENT Disorders: Yes HEENT Disorders: Glaucoma Cancer History of Cancer: No Psychosocial History of Psychiatric Problem: No Integumentary History of Skin or Integumenta: No Review of Systems-General Constitutional: No chills, No dizziness, No fever EENTM: No blurred vision, No eye pain, No throat pain Respiratory: cough; No hemoptysis, No phlegm, No wheezing Cardiovascular: No chest pain, No edema, No palpitations Gastrointestinal: No abdominal pain, No diarrhea, No nausea, No vomiting Genitourinary: No dysuria, No frequency, No incontinence Musculoskeletal: No back pain, No joint swelling, No muscle pain Skin: lumps (over ); No pruritus, No rash Psychiatric/Neurological: Denies Headache, Denies Numbness, Denies Tingling Physical Exam-General Problems Physical Exam Vital Signs Vital Signs - First Documented 11/08/20 08:45 Temp 36.0 Pulse 102 Resp 18 B/P (MAP) 98/73 (81) Pulse Ox 98 O2 Delivery Room Air Capillary Refill : Less Than 3 Seconds General Appearance: WD/WN, no apparent distress HEENT: PERRL/EOMI Neck: non-tender, supple Respiratory: chest non-tender, lungs clear, normal breath sounds, no respiratory distress, no accessory muscle use Cardiovascular: regular rate, rhythm, no murmur Gastrointestinal: non tender, soft Extremities: non-tender, no pedal edema, no calf tenderness Neurologic/Psychiatric: alert, normal mood/affect, oriented x 3 Skin: normal color, warm/dry Lymphatic: other (Nontender L supraclavicular lymphadenopathy) Data Review Labs Laboratory Tests 11/08/20 08:50: White Blood Count 12.3H, Red Blood Count 4.66, Hemoglobin 14.3, Hematocrit 42, Mean Corpuscular Volume 90, Mean Corpuscular Hemoglobin 31, Mean Corpuscular Hemoglobin Concent 34, Red Cell Distribution Width 13.7, Platelet Count 13*L, Mean Platelet Volume , Immature Granulocyte % (Auto) 1, Neutrophils (%) (Auto) 84H, Lymphocytes (%) (Auto) 5L, Monocytes (%) (Auto) 7, Eosinophils (%) (Auto) 2, Basophils (%) (Auto) 1, Neutrophils # (Auto) 10.3H, Lymphocytes # (Auto) 0.6L , Monocytes # (Auto) 0.9, Eosinophils # (Auto) 0.3, Basophils # (Auto) 0.1, Immature Granulocyte # (Auto) 0.1, Neutrophils % (Manual) 81, Lymphocytes % (Manual) 8, Monocytes % (Manual) 7, Eosinophils % (Manual) 3, Band Neutrophils 1, Percent Immature Platelet Fraction 26.3H, Blood Morphology Comment NORMAL, Prothrombin Time 18.5H, INR Comment 1.5H, Activated Partial Thromboplast Time 31, Sodium Level 131L, Potassium Level 4.3, Chloride Level 97L, Carbon Dioxide Level 19L, Anion Gap 15H, Blood Urea Nitrogen 25H, Creatinine 1.42H, Estimat Glomerular Filtration Rate 50, BUN/Creatinine Ratio 18, Glucose Level 162H, Calcium Level 9.7, Corrected Calcium 9.7, Total Bilirubin 0.8, Aspartate Amino Transf (AST/SGOT) 28, Alanine Aminotransferase (ALT/SGPT) 11, Alkaline Phosphatase 90, Total Protein 7.3, Albumin 4.0 Assessment/Plan Assessment/Plan Assessment/Plan L supraclavicular lymphadenopathy s/p L axillary lymph node biopsy Dyspnea, resolved Thrombocytopenia RONDA Hold eliquis Repeat L axillary lymph node biopsy Continue to monitor platelet levels WOJCIECH WILKES DO 11/09/20 0905: History of Present Illness History of Present Illness History of Present Illness 70 year old male with 1 week increasing shortness of breath. Activity makes worse. Laying still better. Recently diagnosed with right lower extremity DVT and found to have PE as well. Has been on Eliquis. Was found to have lung mass and significant lymphadenopathy and Eliquis was held for IR biopsy. Feels all the nodes have gotten larger after biopsy. Patient found to have thrombocytopenia, has been switched to Xarelto today. Has received Platelets today as well. Asked for possible need for excisional biopsy. Allergies and Home Medications Allergies Coded Allergies: No Known Drug Allergies (Unverified , 03/23/18) Patient Home Medication List Home Medication List Reviewed: Yes Apixaban (Eliquis) 5 Mg Tablet, 5 MG PO BID, (Reported) Entered as Reported by: CHAMP TORRE on 11/08/201411 Last Action: Reviewed Hydrocodone/Acetaminophen (Hydrocodone-Acetamin 5-325 mg) 1 Each Tablet, 1 EA PO Q6H PRN for PAIN-MODERATE (5-7), (Reported) Entered as Reported by: CHAMP TORRE on 11/08/201411 Last Action: Reviewed Lisinopril (Lisinopril) 40 Mg Tablet, 40 MG PO DAILY, (Reported) Entered as Reported by: CHAMP TORRE on 11/08/201411 Last Action: Reviewed Multivit-Min/Folic/Vit K/Lycop (Men's Multivitamin Tablet) 1 Each Tablet, 1 EACH PO DAILY, (Reported) Entered as Reported by: CHAMP TORRE on 11/08/201411 Last Action: Reviewed Discontinued Medications Ibuprofen (Ibu-200) 200 Mg Tablet, 400 MG PO Q8H PRN for PAIN-MODERATE (5-7), (Reported) Discontinued Reason: No Longer Taking Entered as Reported by: CHEMA EISENBERG on 04/14/19 1721 Last Action: Discontinued Prednisone (Prednisone) 10 Mg Tab.ds.pk, 10 MG PO DAILY Discontinued Reason: No Longer Taking Prescribed by: ERI VARGAS on 04/16/19 1012 Last Action: Discontinued Past Lifnltz-Fhjyzb-Wbunjx Hx Reviewed Nursing Assessment Reviewed/Agree w Nursing PMH: Yes Family Medical History Significant Family History: No Pertinent Family Hx Review of Systems-General Constitutional: No chills, No dizziness, No fever EENTM: No blurred vision, No eye pain, No throat pain Respiratory: cough; No hemoptysis, No phlegm; short of breath; No wheezing Cardiovascular: No chest pain, No edema, No palpitations Gastrointestinal: No abdominal pain, No diarrhea, No nausea, No vomiting Genitourinary: No dysuria, No frequency, No incontinence Musculoskeletal: No back pain, No joint swelling, No muscle pain Skin: No change in color; lumps (lymphadeompathy neck and axilla); No pruritus, No rash Psychiatric/Neurological: Denies Headache, Denies Numbness, Denies Tingling All Other Systems Reviewed Negative Unless Noted: Yes (Negative excepted noted.) Physical Exam-General Problems Physical Exam General Appearance: WD/WN, no apparent distress HEENT: PERRL/EOMI, normal ENT inspection Neck: other (tender b/l lower cervical lymphadenopathy, supraclavicular enlarged matted node on left, right has enlarged noded) Respiratory: chest non-tender, no respiratory distress, no accessory muscle use Cardiovascular: regular rate, rhythm, no JVD Gastrointestinal: non tender, soft Rectal: deferred Back: no CVA tenderness, no vertebral tenderness Extremities: non-tender, no pedal edema, no calf tenderness Neurologic/Psychiatric: alert, normal mood/affect, oriented x 3 Skin: normal color, warm/dry Lymphatic: no adenopathy Assessment/Plan Assessment/Plan Assessment/Plan b/l cervical, supraclavicular and axillary lymphadenopathy s/p L axillary lymph node biopsy Dyspnea, with recent history of pe and dvt right lower extremity Thrombocytopenia RONDA Long-term anticoagulation Eliquis switched to Xarelto Awaiting pathology, if need further biopsy likely would take right supraclavicular/cervical node Continue to monitor platelet levels if low and needs biopsy would give platelets prior and would want anticoagulant held. Will discuss with Dr. Keyes. Supervisory-Addendum Brief Verification & Attestation Participated in pt care: history, MDM, physical Personally performed: exam, history, MDM, supervision of care Care discussed with: Medical Student Procedures: n/a Results interpretation: Verified all documentation Verification and Attestation of Medical Student E/M Service A medical student performed and documented this service in my presence. I reviewed and verified all information documented by the medical student and made modifications to such information, when appropriate. I personally performed the physical exam and medical decision making. Wojciech Wilkes, Nov 08, 2020, 19:27 JOHN ROSENBAUM Nov 08, 2020 12:47 WOJCIECH WILKES DO Nov 09, 2020 09:05
[2020-11-08] MEDS ORDERED: MULT-1102 PO (14:12)
[2020-11-08] MEDS ORDERED: LISI40TA9 PO (14:12)
[2020-11-08] MEDS ORDERED: APIX5TAB PO (14:12)
[2020-11-08] MEDS ORDERED: ACHD5005 PO (14:12)
--- NOTE | 2020-11-08 17:36 | History & Physical ---
History of Present Illness History of Present Illness Reason for visit/HPI This is a 70 year old male with a history of LE DVT and PE as well as generalized lymphadenopathy who is being worked up for cancer. He underwent a lymph node biopsy by radiology earlier in the week. He states that since the biopsy he has felt like his left supraclavicular lymph nodes have been larger and more tender. He also has been more short of air with exertion and was worried about worsening pulmonary emboli. He presented to the emergency room and was found to have a right pleural effusion but his oxygen saturation was good on room air. However, he was found to be thrombocytopenic with a platelet count of 13,000 with hyponatremia and acute renal insufficiency. He will be admitted for platelets and heme/onc consult. Date of Admission Nov 08, 2020 at 09:28 Date Seen by a Provider: Nov 08, 2020 Time Seen by a Provider: 12:45 I consulted on this patient on 11/08/20 17:31 Attending Physician Michell Keyes DO Admitting Physician Michell Keyes DO Consult Allergies and Home Medications Allergies Coded Allergies: No Known Drug Allergies (Unverified , 03/23/18) Patient Home Medication List Home Medication List Reviewed: Yes Apixaban (Eliquis) 5 Mg Tablet, 5 MG PO BID, (Reported) Entered as Reported by: CHAMP TORRE on 11/08/201411 Last Action: Reviewed Hydrocodone/Acetaminophen (Hydrocodone-Acetamin 5-325 mg) 1 Each Tablet, 1 EA PO Q6H PRN for PAIN-MODERATE (5-7), (Reported) Entered as Reported by: CHAMP TORRE on 11/08/201411 Last Action: Reviewed Lisinopril (Lisinopril) 40 Mg Tablet, 40 MG PO DAILY, (Reported) Entered as Reported by: CHAMP TORRE on 11/08/201411 Last Action: Reviewed Multivit-Min/Folic/Vit K/Lycop (Men's Multivitamin Tablet) 1 Each Tablet, 1 EACH PO DAILY, (Reported) Entered as Reported by: CHAMP TORRE on 11/08/201411 Last Action: Reviewed Discontinued Medications Ibuprofen (Ibu-200) 200 Mg Tablet, 400 MG PO Q8H PRN for PAIN-MODERATE (5-7), (Reported) Discontinued Reason: No Longer Taking Entered as Reported by: CHEMA EISENBERG on 04/14/19 1721 Last Action: Discontinued Prednisone (Prednisone) 10 Mg Tab.ds.pk, 10 MG PO DAILY Discontinued Reason: No Longer Taking Prescribed by: ERI VARGAS on 04/16/19 1012 Last Action: Discontinued Past Wrdkrzx-Xlyani-Ibwjou Hx Patient Social History Employed/Student: retired Tobacco Use?: No Smoking Status: Former Smoker Smokeless Tobacco Frequency: Never a User Use of E-Cig and/or Vaping dev: No Substance use?: Yes Substance type: Marijuana Substance frequency: Rarely Alcohol Use?: Yes Alcohol type: Beer Alcohol Frequency: Daily Pt feels they are or have been: No Immunizations Up To Date First/Initial COVID19 Vaccinat: may Second COVID19 Vaccination Reji: may Tetanus Booster (TDap): Unknown Date of Pneumonia Vaccine: Feb 11, 2018 Seasonal Allergies Seasonal Allergies: Yes Current Status Advance Directives: No Communicates: Does Not Communicate Primary Language: Turkish Preferred Spoken Language: Turkish Is interpretation needed?: No Implanted or Applied Medical D: None Past Medical History Surgeries: Orthopedic Hypertension Arthritis Glaucoma Review of Systems Constitutional: malaise, weakness EENTM: other (lymph node swelling to left supraclavicular area) Respiratory: dyspnea on exertion Cardiovascular: No no symptoms reported, No see HPI, No chest pain, No edema, No Hx of Intervention, No palpitations, No syncope, No vascular heart diseas, No other Gastrointestinal: loss of appetite Genitourinary: No no symptoms reported, No see HPI, No decreased output, No discharge, No dysuria, No frequency, No hematuria, No hesitancy, No incontinence, No nocturia, No pain, No other Musculoskeletal: muscle weakness Skin: No no symptoms reported, No see HPI, No change in color, No change in hair/nails, No dryness, No hx of skin cancer, No lesions, No lumps, No pruritus, No rash, No other Psychiatric/Neurological: Weakness Physical Exam Vital Signs Vital Signs - First Documented 11/08/20 08:45 Temp 36.0 Pulse 102 Resp 18 B/P (MAP) 98/73 (81) Pulse Ox 98 O2 Delivery Room Air Capillary Refill : Less Than 3 Seconds Height, Weight, BMI Height: 5'8.00" Weight: 160lbs. 0.0oz. [id number]; 22.44 BMI Method: General Appearance: No Apparent Distress HEENT: Normal ENT Inspection Neck: Lymphadenopathy (L), Other (supraclavicular lymphadenopathy) Respiratory: Lungs Clear Cardiovascular: Regular Rate, Rhythm Gastrointestinal: Normal Bowel Sounds, Non Tender, Soft Rectal: Deferred Back: No CVA Tenderness Extremity: Non Tender, No Calf Tenderness, No Pedal Edema Neurologic/Psychiatric: Alert, Oriented x3 Skin: Warm/Dry Comments Laboratory Tests 11/08/20 08:50: White Blood Count 12.3H, Red Blood Count 4.66, Hemoglobin 14.3, Hematocrit 42, Mean Corpuscular Volume 90, Mean Corpuscular Hemoglobin 31, Mean Corpuscular Hemoglobin Concent 34, Red Cell Distribution Width 13.7, Platelet Count 13*L, Mean Platelet Volume , Immature Granulocyte % (Auto) 1, Neutrophils (%) (Auto) 84H, Lymphocytes (%) (Auto) 5L, Monocytes (%) (Auto) 7, Eosinophils (%) (Auto) 2, Basophils (%) (Auto) 1, Neutrophils # (Auto) 10.3H, Lymphocytes # (Auto) 0.6L , Monocytes # (Auto) 0.9, Eosinophils # (Auto) 0.3, Basophils # (Auto) 0.1, Immature Granulocyte # (Auto) 0.1, Neutrophils % (Manual) 81, Lymphocytes % (Manual) 8, Monocytes % (Manual) 7, Eosinophils % (Manual) 3, Band Neutrophils 1, Percent Immature Platelet Fraction 26.3H, Blood Morphology Comment NORMAL, Prothrombin Time 18.5H, INR Comment 1.5H, Activated Partial Thromboplast Time 31, Sodium Level 131L, Potassium Level 4.3, Chloride Level 97L, Carbon Dioxide Level 19L, Anion Gap 15H, Blood Urea Nitrogen 25H, Creatinine 1.42H, Estimat Glomerular Filtration Rate 50, BUN/Creatinine Ratio 18, Glucose Level 162H, Calcium Level 9.7, Corrected Calcium 9.7, Total Bilirubin 0.8, Aspartate Amino Transf (AST/SGOT) 28, Alanine Aminotransferase (ALT/SGPT) 11, Alkaline Phosphatase 90, Total Protein 7.3, Albumin 4.0 Assessment/Plan Assessment and Plan 1. Acute Thrombocytopenia--admit and transfuse platelets and repeat CBC in Am, Dr. Funes to consult, Change eliquis to xarelto in case this is contributing, consider steroids if could be ITP related 2. Generalized Lymphadenopathy--had axillary lymph node biopsy earlier in the week--so far no obvious lymphoma but other staining and evaluation are pending by pathology, may need another surgical biopsy but will wait on pathology finishing workup on current biopsy first due to thrombocytopenia and DVT/PE 3. Right LE DVT and Right sided PE--needs to stay on blood thinner but will change eliquis to Xarelto in case this is contributing to thrombocytopenia 4. Dyspnea on Exertion/Right sided pleural effusion--start IS, albuterol in SVN prn 5. Acute Renal Insufficiency/Hyponatremia--hydrate and repeat levels in AM Admission Diagnosis Admission Status: Inpatient Order (span 2 midnights) Reason for Inpatient Admission: Will need IVFs, IV platelets and monitoring of platelet count MICHELL KEYES DO Nov 08, 2020 17:36
[2020-11-08] MEDS: RIVAROXABAN 20 MG TABLET (XARELTO) PO SCH (18:16)
[2020-11-08] MEDS: predniSONE 20 MG TAB PO SCH ×2 (18:49)
--- NOTE | 2020-11-08 20:59 | CONSULTATION REPORT ---
DATE OF SERVICE: 11/08/2020 PHYSICIAN REQUESTING CONSULTATION AND PRIMARY PHYSICIAN: Tracie Keyes DO. ROOM NUMBER: The patient is admitted to room 412. IMPRESSION: 1. A 70-year-old male with rapidly worsening lymphadenopathy, status post core needle biopsy done on 11/05/2020 on an outpatient basis. 2. New onset thrombocytopenia. Clinically consistent with ITP. RECOMMENDATIONS: 1. With regards to thrombocytopenia, I would recommend starting the patient on prednisone 1 mg/kg daily and I have ordered 70 mg today. 2. I have discussed the pathology report from core needle biopsy of the cervical/axillary lymph node with . The preliminary report is that this is consistent with a carcinoma. Additional immunohistochemical studies are pending. 3. I reviewed his PET scan done on 10/23/2020, which showed significant lymphadenopathy in bilateral supraclavicular, axillary, mediastinal and periaortic areas. No other significant abnormal uptake noted. No significant bone marrow uptake noted. This makes tumor infiltration of the marrow causing the thrombocytopenia less likely. 4. History of DVT/PE and on anticoagulation with Eliquis. This is being changed to Xarelto because of possibility of thrombocytopenia with Eliquis. Continue anticoagulation cautiously as his risk of bleeding is significant with the thrombocytopenia. 5. We will follow the patient with you. BRIEF HISTORY: The patient is a 70-year-old male, who noticed left neck swelling approximately a month ago. He denied any fevers or night sweats. Appetite has been good and he may have lost approximately 5 pounds over the last one month, but no previous weight loss. Denied any new bony aches or pains or headaches or visual changes. Approximately two to three weeks ago, he started noticing swelling on the right side of the neck. He contacted his primary physician at that time and had CT scans done, which showed significant lymphadenopathy in the supraclavicular, axillary, mediastinal areas. This was followed by a PET scan and core needle biopsy of axillary lymph node. He presented to the emergency room earlier today with increasing shortness of breath and it was decided to admit the patient to the hospital for further management. The ER evaluation showed new onset thrombocytopenia with platelet count of 13,000. Hematology consult was requested because of thrombocytopenia as well as probable malignancy. PAST MEDICAL HISTORY: Significant for hypertension and has been on treatment. He denied any coronary artery disease or other medical problems. He has osteoarthritis and required surgery for his knees as well as shoulder joints. No other major medical problems other than recent diagnosis of lymphadenopathy. PAST SURGICAL HISTORY: Other surgeries include bilateral cataracts as well as glaucoma. SOCIAL HISTORY: The patient is . He lives in [facility] with his father and sister. He has no children. He worked at [employer] in [place] for 11 years and retired a few years ago. 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 He has some exposure to chemicals while working at [employer], but denied any significant exposure. No significant exposure to asbestos, etc. He has smoked a pack a day for 2 years during his early 20s. He denied any tobacco use since then. No recreational drug use. He uses up to three beer daily since the last 30 plus years. FAMILY HISTORY: Unremarkable with no malignancies or hematologic problems in the family that the patient knows of. PHYSICAL EXAMINATION: GENERAL: Showed elderly male, well developed and nourished, awake and oriented, in no acute distress. VITAL SIGNS: His temperature was 36.6, pulse rate of 80, respiratory rate 16, and blood pressure 128/84 with oxygen saturation of 98% on room air. HEENT: Normocephalic, extraocular muscles intact, conjunctivae pink, and oral mucosa moist. NECK: Supple, with no JVD. Significant lymphadenopathy was noted in the left low cervical/supraclavicular area with matted group of lymph node. Smaller lymphadenopathy in the right supraclavicular area and bilateral axillary areas noted. CHEST: Symmetrical. LUNGS: Fairly clear to auscultation without wheezes or rales. CARDIOVASCULAR: Regular in rate and rhythm. No murmurs or gallops heard. ABDOMEN: Soft and nontender with no hepatosplenomegaly or other masses palpable. EXTREMITIES: Showed no edema or significant petechia. A few small ecchymoses noted. NEUROLOGIC: Grossly intact without focal motor deficits. LABORATORY DATA: CBC done today showed WBC 12.3, hemoglobin 14.3, and platelet count 13,000 with neutrophil count 10.3, lymphocyte count 0.6 and monocyte count 0.9. Chemistry panel showed sodium level of 131. BUN was 25 and creatinine 1.42 with a GFR 50 mL per minute. Nonfasting glucose was 162. Liver function studies were within normal limits. Renal function was normal on 10/19/2020. Chest x-ray done at the emergency room showed interval progression of small right pleural effusion and mild right basilar atelectasis versus infiltrate. CT scan of the neck and chest done on 10/19/2020 showed widespread pathologically enlarged lymphadenopathy involving the base of the neck, supraclavicular regions, axilla, mediastinum and hilar. New solid nodule in the left lung base measuring 2 cm and increase in size of a nodule in the left upper lobe measuring 1.8 cm. Pulmonary emboli involving the segmental pulmonary artery of right lower lobe and subsegmental pulmonary arteries of the right upper lobe. Moderate pericardial effusion overlying the right ventricle. PET-CT scan done on 10/23/2020 showed abnormal study demonstrating hypermetabolic lymphadenopathy in the supraclavicular regions bilaterally as well as bilateral axillae, mediastinum and left hilum. A density in the left upper lobe that also shows some hypermetabolic activity. Area of opacity in the left lower lobe does not demonstrate FDG avidity. Hypermetabolic lymphadenopathy in the abdomen and pelvis was also noted. The patient underwent a core needle biopsy of the left axillary lymph node on 11/05/2020. The flow cytometry could not be done due to insufficient lymphocyte cellularity. Preliminary verbal report from pathology was that of an infiltrative poorly differentiated malignancy that was an adenocarcinoma. Additional immunohistochemical stains are pending at this time. Thank you for allowing me to participate in this patient's care. I will follow the patient with you and make appropriate recommendations. Job ID: [id number] DocumentID: [id number] Dictated Date: 11/08/2020 19:28:12 Software [employer] Manager Date: 11/08/2020 20:58:34 Dictated By: ROMAINE BARNES MD
[2020-11-09] MEDS: HYDROcodone/APAP 5 MG/325 MG (LORTAB) TAB PO PRN ×4 (01:06→22:20)
[2020-11-09 03:39] VITALS: BP 134/78
[2020-11-09 04:50] LABS: BASOPHILS % (AUTO) 0 % (0-10); EOSINOPHILS % (AUTO) 0 % (0-10); HEMOGLOBIN 12.8 g/dL (13.3-17.7); NEUTROPHILS % (AUTO) 92 % (42-75)
[2020-11-09 04:52] LABS: HEMATOCRIT 38 % (40-54); LYMPHOCYTES # (AUTO) 0.2 10^3/uL (1.0-4.0); LYMPHOCYTES % (AUTO) 3 % (12-44); MEAN CORPUSCULAR HEMOGLOBIN 31 pg (25-34); MEAN CORPUSCULAR HGB CONC 34 g/dL (32-36); MEAN CORPUSCULAR VOLUME 90 fL (80-99); MONOCYTES # (AUTO) 0.2 10^3/uL (0.0-1.0); MONOCYTES % (AUTO) 3 % (0-12); NEUTROPHILS # (AUTO) 6.7 10^3/uL (1.8-7.8); WHITE BLOOD COUNT 7.3 10^3/uL (4.3-11.0)
[2020-11-09] MEDS: NS IV 1000 ML 1,000 ML IV SCH ×2 (04:59→13:18)
[2020-11-09 05:00] LABS: PLATELET COUNT 27 10^3/uL (130-400)
[2020-11-09 05:01] LABS: POTASSIUM 4.7 MMOL/L (3.6-5.0)
[2020-11-09 05:02] LABS: CALCIUM 8.6 MG/DL (8.5-10.1)
[2020-11-09 05:07] LABS: CREATININE SERUM 0.8 MG/DL (0.60-1.30)
[2020-11-09] MEDS: predniSONE 20 MG TAB PO SCH ×2 (06:30→06:31)
[2020-11-09 08:00] VITALS: BP 156/93
--- NOTE | 2020-11-09 09:41 | Progress Note - Surgery ---
Subjective Date Seen by a Provider: Nov 09, 2020 Time Seen by a Provider: 09:34 Subjective/Events-last exam Breathing about the same as yesterday. Platelets slightly up. On Xarelto. Transfused platelets yesterday. On steroids. Minimal abdominal discomfort/sick feeling- diffusely, achy. Denies n/v fever sweats chills or chest pain at this time. Objective Exam Vital Signs Date Time Temp Pulse Resp B/P (MAP) Pulse Ox O2 Delivery O2 Flow Rate FiO2 11/09/20 08:00 36.4 85 20 156/93 (114) 98 Room Air 11/09/20 07:00 86 11/09/20 03:39 36.0 84 18 134/78 (96) 97 Room Air 11/09/20 01:00 86 11/08/20 23:30 36.4 84 16 130/84 (99) 97 Room Air 11/08/20 20:05 Room Air 11/08/20 19:08 36.6 80 16 128/84 (99) 98 Room Air 11/08/20 19:00 80 11/08/20 16:08 36.6 77 18 129/77 (94) 98 Room Air 11/08/20 14:10 36.6 81 20 114/75 97 Room Air 11/08/20 13:14 88 11/08/20 13:00 98 Room Air 11/08/20 12:00 35.6 78 16 110/75 (87) 97 Room Air 11/08/20 11:38 36.4 80 14 109/75 97 11/08/20 11:24 36.5 20 104/72 98 Room Air 11/08/20 11:10 35.9 84 98 11/08/20 10:30 35.9 84 18 110/80 (90) 98 Room Air 11/08/20 10:23 86 18 109/77 97 I & O 11/09/20 07:00 Intake Total 2720 ml Output Total 0 ml Balance 2720 ml Capillary Refill : Less Than 3 Seconds General Appearance: No Apparent Distress, WD/WN HEENT: PERRL/EOMI Neck: Lymphadenopathy (L) (significant matted), Lymphadenopathy (R) Respiratory: Lungs Clear, Normal Breath Sounds, No Accessory Muscle Use, No Respiratory Distress Cardiovascular: Regular Rate, Rhythm, Normal Peripheral Pulses, Tachycardia Gastrointestinal: non tender, soft Extremity: Normal Inspection, Normal Range of Motion, Non Tender, No Calf Tenderness Neurologic/Psychiatric: Alert, Oriented x3, No Motor/Sensory Deficits, Normal Mood/Affect Skin: Normal Color, Warm/Dry Lymphatic: Axilla Node Tender (L), Axilla Node Tender (R), Other (b/l cervical/supraclavicualr node, left side matted supraclavicular) Results Lab Laboratory Tests 11/09/20 04:30: White Blood Count 7.3, Red Blood Count 4.18L, Hemoglobin 12.8L, Hematocrit 38L, Mean Corpuscular Volume 90, Mean Corpuscular Hemoglobin 31, Mean Corpuscular Hemoglobin Concent 34, Red Cell Distribution Width 13.6, Platelet Count 27*L, Mean Platelet Volume , Immature Granulocyte % (Auto) 1, Neutrophils (%) (Auto) 92H, Lymphocytes (%) (Auto) 3L, Monocytes (%) (Auto) 3, Eosinophils (%) (Auto) 0, Basophils (%) (Auto) 0, Neutrophils # (Auto) 6.7, Lymphocytes # (Auto) 0.2L, Monocytes # (Auto) 0.2, Eosinophils # (Auto) 0.0, Basophils # (Auto) 0.0, Immature Granulocyte # (Auto) 0.1, Percent Immature Platelet Fraction 15.0H, Sodium Level 132L, Potassium Level 4.7, Chloride Level 103, Carbon Dioxide Level 19L, Anion Gap 10, Blood Urea Nitrogen 19H, Creatinine 0.80, Estimat Glomerular Filtration Rate 96, BUN/Creatinine Ratio 24, Glucose Level 132H, Calcium Level 8.6 Assessment/Plan Assessment/Plan Assessment/Plan b/l cervical, supraclavicular and axillary lymphadenopathy s/p L axillary lymph node biopsy Dyspnea, with recent history of pe and dvt right lower extremity Thrombocytopenia RONDA Long-term anticoagulation Eliquis switched to Xarelto Awaiting pathology, if need further biopsy likely would take right supraclavicular/cervical node Continue to monitor platelet levels if low and needs biopsy would give platelets prior and would want anticoagulant held. Awaiting final biopsy result from left axillary needle biopsy. MARIAM WILKES DO Nov 09, 2020 09:41
--- NOTE | 2020-11-09 10:30 | Progress Note ---
Subjective Date Seen by a Provider: Nov 09, 2020 Time Seen by a Provider: 10:25 Subjective/Events-last exam Fwup thrombocytopenia, diffuse hypermetabolic lymphadenopathy, Right sided PE and Pleural Effusion with atelectesis, dyspnea on exertion. Sitting up in bed with no complaints. Objective Exam Vital Signs Date Time Temp Pulse Resp B/P (MAP) Pulse Ox O2 Delivery O2 Flow Rate FiO2 11/09/20 08:00 36.4 85 20 156/93 (114) 98 Room Air 11/09/20 08:00 Room Air 11/09/20 07:00 86 11/09/20 03:39 36.0 84 18 134/78 (96) 97 Room Air 11/09/20 01:00 86 11/08/20 23:30 36.4 84 16 130/84 (99) 97 Room Air 11/08/20 20:05 Room Air 11/08/20 19:08 36.6 80 16 128/84 (99) 98 Room Air 11/08/20 19:00 80 11/08/20 16:08 36.6 77 18 129/77 (94) 98 Room Air 11/08/20 14:10 36.6 81 20 114/75 97 Room Air 11/08/20 13:14 88 11/08/20 13:00 98 Room Air 11/08/20 12:00 35.6 78 16 110/75 (87) 97 Room Air 11/08/20 11:38 36.4 80 14 109/75 97 11/08/20 11:24 36.5 20 104/72 98 Room Air 11/08/20 11:10 35.9 84 98 11/08/20 10:30 35.9 84 18 110/80 (90) 98 Room Air I & O 11/09/20 07:00 Intake Total 2720 ml Output Total 0 ml Balance 2720 ml Capillary Refill : Less Than 3 Seconds General Appearance: No Apparent Distress Respiratory: Lungs Clear Cardiovascular: Regular Rate, Rhythm Gastrointestinal: normal bowel sounds, non tender, soft Extremity: Non Tender, No Calf Tenderness, No Pedal Edema Neurologic/Psychiatric: Alert, Oriented x3 Results Lab Laboratory Tests 11/09/20 04:30: White Blood Count 7.3, Red Blood Count 4.18L, Hemoglobin 12.8L, Hematocrit 38L, Mean Corpuscular Volume 90, Mean Corpuscular Hemoglobin 31, Mean Corpuscular Hemoglobin Concent 34, Red Cell Distribution Width 13.6, Platelet Count 27*L, Mean Platelet Volume , Immature Granulocyte % (Auto) 1, Neutrophils (%) (Auto) 92H, Lymphocytes (%) (Auto) 3L, Monocytes (%) (Auto) 3, Eosinophils (%) (Auto) 0, Basophils (%) (Auto) 0, Neutrophils # (Auto) 6.7, Lymphocytes # (Auto) 0.2L, Monocytes # (Auto) 0.2, Eosinophils # (Auto) 0.0, Basophils # (Auto) 0.0, Immature Granulocyte # (Auto) 0.1, Percent Immature Platelet Fraction 15.0H, Sodium Level 132L, Potassium Level 4.7, Chloride Level 103, Carbon Dioxide Level 19L, Anion Gap 10, Blood Urea Nitrogen 19H, Creatinine 0.80, Estimat Glomerular Filtration Rate 96, BUN/Creatinine Ratio 24, Glucose Level 132H, Calcium Level 8.6 Assessment/Plan Assessment/Plan Assess & Plan/Chief Complaint 1. Acute Thrombocytopenia--S/P platelet transfusion, platelets up to 27,000 today, oral prednisone started, eliquis switched to Xarelto 2. Right Sided PE--on Xarelto 3. Right Sided Pleural Effusion/Atelectesis--IS started 4. Acute Renal Insufficiency--improved with hydration 5. Hyperglycemia--patient has known impaired fasting glucose--start accuchecks with SSI due to steroids being started 6. Hypertension--BP stable 7. Diffuss Hypermetabolic Lymphadenopathy--preliminary test shows adenocarcinoma but awaiting further stains Clinical Quality Measures Admission Status Admission Dx 1. Acute Thrombocytopenia--admit and transfuse platelets and repeat CBC in Am, Dr. Funes to consult, Change eliquis to xarelto in case this is contributing, consider steroids if could be ITP related 2. Generalized Lymphadenopathy--had axillary lymph node biopsy earlier in the week--so far no obvious lymphoma but other staining and evaluation are pending by pathology, may need another surgical biopsy but will wait on pathology finishing workup on current biopsy first due to thrombocytopenia and DVT/PE 3. Right LE DVT and Right sided PE--needs to stay on blood thinner but will change eliquis to Xarelto in case this is contributing to thrombocytopenia 4. Dyspnea on Exertion/Right sided pleural effusion--start IS, albuterol in SVN prn 5. Acute Renal Insufficiency/Hyponatremia--hydrate and repeat levels in AM MICHELL DAS DO Nov 09, 2020 10:30
--- NOTE | 2020-11-09 11:20 | Progress Note ---
Standard Progress Note Progress Notes/Assess & Plan Date Seen by a Provider: Nov 09, 2020 Time Seen by a Provider: 11:16 Progress/Assessment & Plan 70-year-old male with rapid onset lymphadenopathy and thrombocytopenia admitted with shortness of breath. Core needle biopsy of left axillary lymph node consistent with a carcinoma with additional IHC stains pending. PET CT scan done previously showing significant lymphadenopathy in lower cervical bilateral supraclavicular, axillary, mediastinal and para-aortic regions without an obvious primary site. Thrombocytopenia is clinically consistent with ITP as there is no significant bone marrow activity on the PET CT scan. Patient was started on prednisone 70 mg daily. He complained of abdominal discomfort/acid peptic symptoms. Consider proton pump inhibitor with or without sucralfate for gastric protection. 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 Continue this cautiously because of significant thrombocytopenia and risk of bleeding. Monitor platelet counts serially. I am not regional facilities manager for the weekend but could be reached on my cell phone for emergencies. ROMAINE BARNES Nov 09, 2020 11:20
[2020-11-09] MEDS: inSUlin ASPART (NovoLOG) 1 UNIT/0.01 ML (CHARGE PER UNIT) SC SCH ×3 (11:50→22:20)
[2020-11-09 11:51] VITALS: BP 117/77
[2020-11-09] MEDS ORDERED: PANTOPRAZOLE 40 MG (PROTONIX) VIAL IV NR (13:00)
[2020-11-09] MEDS ORDERED: ONDANSETRON 4 MG/2 ML (SDV) Z0FRAN IVP PRN (13:00)
[2020-11-09 15:34] VITALS: BP 147/87
[2020-11-09] MEDS: SUCRALFATE 1 GM (CARAFATE) TAB PO SCH ×2 (15:45→22:20)
[2020-11-09] MEDS: RIVAROXABAN 20 MG TABLET (XARELTO) PO SCH (18:03)
[2020-11-09 19:43] VITALS: BP 158/87
[2020-11-10] VITALS (10 sets, daily range): BP systolic 134–161; BP diastolic 82–92
[2020-11-10] MEDS: HYDROcodone/APAP 5 MG/325 MG (LORTAB) TAB PO PRN ×5 (02:29→21:36)
[2020-11-10] MEDS: SUCRALFATE 1 GM (CARAFATE) TAB PO SCH ×4 (06:00→21:36)
[2020-11-10] MEDS: predniSONE 20 MG TAB PO SCH ×2 (06:01)
[2020-11-10] MEDS: inSUlin ASPART (NovoLOG) 1 UNIT/0.01 ML (CHARGE PER UNIT) SC SCH ×4 (06:55→21:08)
[2020-11-10 07:12] LABS: HEMATOCRIT 36 % (40-54); HEMOGLOBIN 12.4 g/dL (13.3-17.7); MEAN CORPUSCULAR HEMOGLOBIN 31 pg (25-34); MEAN CORPUSCULAR HGB CONC 34 g/dL (32-36); POTASSIUM 3.7 MMOL/L (3.6-5.0)
[2020-11-10 07:13] LABS: CALCIUM 8.4 MG/DL (8.5-10.1)
[2020-11-10 07:14] LABS: MEAN CORPUSCULAR VOLUME 91 fL (80-99)
[2020-11-10 07:17] LABS: CREATININE SERUM 0.67 MG/DL (0.60-1.30)
[2020-11-10 07:18] LABS: PLATELET COUNT 13 10^3/uL (130-400)
[2020-11-10] MEDS: PANTOPRAZOLE 40 MG (PROTONIX) VIAL IV SCH (10:11)
--- NOTE | 2020-11-10 10:48 | Progress Note ---
Subjective Subjective Date Seen by Provider: Nov 10, 2020 Time Seen by Provider: 10:42 70 yo M - no overnight events- except labs this AM showed his platelets dropped again to 13. Will transfused plts. Pain is controlled with opioids. Pt is concerned that since his malignancy is spreading that he could before we find out what the origin is. Review of Systems General: No Chills, No Night Sweats HEENT: No Head Aches Pulmonary: Dyspnea; No Cough Cardiovascular: No: Chest Pain, Palpitations Gastrointestinal: No: Nausea, Vomiting Genitourinary: No Dysuria Musculoskeletal: neck pain Neurological: Weakness All Other Systems Reviewed All Other Systems Reviewed: Yes (Negative excepted noted.) Objective Exam Vital Signs Vital Signs Date Time Temp Pulse Resp B/P (MAP) Pulse Ox O2 Delivery O2 Flow Rate FiO2 11/10/20 07:34 36.5 82 16 139/86 (103) 95 Room Air 11/10/20 07:00 79 11/10/20 04:00 36.6 83 18 158/82 (107) 96 Room Air 11/10/20 00:42 77 11/10/20 00:30 36.0 82 20 141/83 (102) 98 Room Air 11/09/20 20:00 Room Air 11/09/20 19:43 36.5 82 18 158/87 (110) 98 Room Air 11/09/20 19:00 81 11/09/20 15:34 36.6 92 20 147/87 (107) 98 Room Air 11/09/20 13:00 83 11/09/20 11:51 36.3 98 20 117/77 (90) 96 Room Air l I & O 11/10/20 07:00 Intake Total 2480 ml Balance 2480 ml General Appearance: No Apparent Distress HEENT: PERRL/EOMI Neck: Lymphadenopathy (L) (significant matted, supraclavicular), Lymphadenopathy (R) Respiratory: Lungs Clear Cardiovascular: Regular Rate, Rhythm Gastrointestinal: Normal Bowel Sounds, Non Tender, Soft Rectal: Deferred Back: No CVA Tenderness Extremity: Non Tender, No Calf Tenderness, No Pedal Edema Neurologic/Psychiatric: Alert, Oriented x3 Skin: Normal Color, Warm/Dry Lymphatic: Axilla Node Tender (L), Axilla Node Tender (R), Other (b/l cervical/supraclavicualr node, left side matted supraclavicular) Results Lab Laboratory Tests 11/09/20 11:02: Glucometer 164H 11/09/20 20:29: Glucometer 198H 11/10/20 06:02: White Blood Count 12.0H, Red Blood Count 4.02L, Hemoglobin 12.4L, Hematocrit 36L , Mean Corpuscular Volume 91, Mean Corpuscular Hemoglobin 31, Mean Corpuscular Hemoglobin Concent 34, Red Cell Distribution Width 13.9, Platelet Count 13*L, Mean Platelet Volume , Percent Immature Platelet Fraction 24.3H, Sodium Level 135, Potassium Level 3.7, Chloride Level 105, Carbon Dioxide Level 19L, Anion Gap 11, Blood Urea Nitrogen 14, Creatinine 0.67, Estimat Glomerular Filtration Rate 118, BUN/Creatinine Ratio 21, Glucose Level 118H, Calcium Level 8.4L 11/10/20 06:55: Glucometer 130H 11/10/20 10:34: Glucometer 209H Assessment/Plan Assessment/Plan Assessment and Plan 11/10/20- transfusing platelets as they are back down to 13. Holding xarelto dose today- will reassess tomorrow. Continue oral prednisone. Tough situation with the PE history and low plts. Awaiting pathology to determine primary source of malignancy. Dispo: guarded. Problems: (1) Thrombocytopenia (2) Pulmonary embolism (3) Lymphadenopathy, generalized (4) HTN (hypertension) (5) RONDA (acute kidney injury) BERTO PEREZ MD Nov 10, 2020 10:48
[2020-11-10] MEDS: NS IV 1000 ML 1,000 ML IV SCH (11:35)
--- NOTE | 2020-11-10 13:45 | Progress Note - Surgery ---
JOHN ROSENBAUM 11/10/20 1345: Subjective Date Seen by a Provider: Nov 10, 2020 Time Seen by a Provider: 01:00 Subjective/Events-last exam Pt still reports mild neck pain and worse breathing as states isn't able to get the ICS as high as before. Platelets went from 27 yesterday back to 13 today. Reports minor cough. Denies fever, chills, nausea, vomiting, diarrhea, or chest pain. Objective Exam Vital Signs Date Time Temp Pulse Resp B/P (MAP) Pulse Ox O2 Delivery O2 Flow Rate FiO2 11/10/20 13:00 81 11/10/20 11:40 36.5 89 20 161/89 (113) 96 Room Air 11/10/20 07:34 36.5 82 16 139/86 (103) 95 Room Air 11/10/20 07:00 79 11/10/20 04:00 36.6 83 18 158/82 (107) 96 Room Air 11/10/20 00:42 77 11/10/20 00:30 36.0 82 20 141/83 (102) 98 Room Air 11/09/20 20:00 Room Air 11/09/20 19:43 36.5 82 18 158/87 (110) 98 Room Air 11/09/20 19:00 81 11/09/20 15:34 36.6 92 20 147/87 (107) 98 Room Air I & O 11/10/20 07:00 Intake Total 2480 ml Balance 2480 ml Capillary Refill : Less Than 3 Seconds General Appearance: No Apparent Distress HEENT: PERRL/EOMI Neck: Lymphadenopathy (L) (significant matted, supraclavicular), Lymphadenopathy (R) Respiratory: Chest Non Tender, Lungs Clear Cardiovascular: Regular Rate, Rhythm Gastrointestinal: non tender Extremity: Non Tender, No Calf Tenderness, No Pedal Edema Neurologic/Psychiatric: Alert, Oriented x3, Normal Mood/Affect Skin: Normal Color, Warm/Dry Lymphatic: Axilla Node Tender (L), Axilla Node Tender (R), Other (b/l cervical/supraclavicualr node, left side matted supraclavicular) Results Lab Laboratory Tests 11/09/20 20:29: Glucometer 198H 11/10/20 06:02: White Blood Count 12.0H, Red Blood Count 4.02L, Hemoglobin 12.4L, Hematocrit 36L , Mean Corpuscular Volume 91, Mean Corpuscular Hemoglobin 31, Mean Corpuscular Hemoglobin Concent 34, Red Cell Distribution Width 13.9, Platelet Count 13*L, Mean Platelet Volume , Percent Immature Platelet Fraction 24.3H, Sodium Level 135, Potassium Level 3.7, Chloride Level 105, Carbon Dioxide Level 19L, Anion Gap 11, Blood Urea Nitrogen 14, Creatinine 0.67, Estimat Glomerular Filtration Rate 118, BUN/Creatinine Ratio 21, Glucose Level 118H, Calcium Level 8.4L 11/10/20 06:55: Glucometer 130H 11/10/20 10:34: Glucometer 209H Assessment/Plan Assessment/Plan Assessment/Plan b/l cervical, supraclavicular and axillary lymphadenopathy s/p L axillary lymph node biopsy Dyspnea, with recent history of pe and dvt right lower extremity Thrombocytopenia RONDA Long-term anticoagulation Platelets being transfused today as they are 13. Holding Xarelto. Awaiting pathology, if need further biopsy likely would take right supraclavicular/cervical node Awaiting final biopsy result from left axillary needle biopsy MARIAM POND DO 11/11/20 1148: Subjective Subjective/Events-last exam Patient getting platelet transfusion. Platelets down to 13. Feels breathing may be slightly worse. Some cough. Patient denies fever sweats chill or chest pain. Objective Exam General Appearance: No Apparent Distress, Anxious HEENT: PERRL/EOMI Neck: Lymphadenopathy (L) (significant matted, supraclavicular), Lymphadenopathy (R) Respiratory: Chest Non Tender, No Accessory Muscle Use, No Respiratory Distress Cardiovascular: Regular Rate, Rhythm, No JVD Gastrointestinal: non tender, soft Extremity: Non Tender, No Calf Tenderness Neurologic/Psychiatric: Alert, Oriented x3, Normal Mood/Affect Skin: Normal Color, Warm/Dry Lymphatic: Axilla Node Tender (L), Axilla Node Tender (R), Other (b/l cervical/supraclavicualr node, left side matted supraclavicular) Assessment/Plan Assessment/Plan Assessment/Plan b/l cervical, supraclavicular and axillary lymphadenopathy s/p L axillary lymph node biopsy Dyspnea, with recent history of pe and dvt right lower extremity Thrombocytopenia RONDA Long-term anticoagulation Platelets being transfused platelets today as they are 13. Xatrell held. Awaiting pathology, if need further biopsy likely would take right supraclavicular/cervical node Awaiting final biopsy result from left axillary needle biopsy still some tissue left which further stains being performed. Supervisory-Addendum Brief Verification & Attestation Participated in pt care: history, MDM, physical Personally performed: exam, history, MDM, supervision of care Care discussed with: Medical Student Procedures: n/a Results interpretation: Verified all documentation Verification and Attestation of Medical Student E/M Service A medical student performed and documented this service in my presence. I reviewed and verified all information documented by the medical student and made modifications to such information, when appropriate. I personally performed the physical exam and medical decision making. Mariam Pond, Nov 10, 2020,13:48 JOHN ROSENBAUM Nov 10, 2020 13:45 MARIAM POND DO Nov 11, 2020 11:48
[2020-11-10] MEDS ORDERED: NS IV 500 ML 500 ML ONE (14:12)
[2020-11-11] VITALS (7 sets, daily range): BP systolic 137–164; BP diastolic 80–97
[2020-11-11] MEDS: HYDROcodone/APAP 5 MG/325 MG (LORTAB) TAB PO PRN ×6 (01:45→23:07)
[2020-11-11] MEDS: NS IV 1000 ML 1,000 ML IV SCH ×2 (02:45→09:01)
[2020-11-11 04:46] LABS: BASOPHILS % (AUTO) 0 % (0-10); EOSINOPHILS # (AUTO) 0.1 10^3/uL (0.0-0.3); EOSINOPHILS % (AUTO) 1 % (0-10); HEMATOCRIT 36 % (40-54); HEMOGLOBIN 11.9 g/dL (13.3-17.7); LYMPHOCYTES # (AUTO) 0.5 10^3/uL (1.0-4.0); LYMPHOCYTES % (AUTO) 4 % (12-44); MEAN CORPUSCULAR HEMOGLOBIN 30 pg (25-34); MEAN CORPUSCULAR HGB CONC 33 g/dL (32-36); MEAN CORPUSCULAR VOLUME 90 fL (80-99); MONOCYTES # (AUTO) 1.1 10^3/uL (0.0-1.0); MONOCYTES % (AUTO) 9 % (0-12); NEUTROPHILS # (AUTO) 11.2 10^3/uL (1.8-7.8); NEUTROPHILS % (AUTO) 85 % (42-75); WHITE BLOOD COUNT 13.2 10^3/uL (4.3-11.0)
[2020-11-11 04:49] LABS: PLATELET COUNT 18 10^3/uL (130-400)
[2020-11-11 04:59] LABS: POTASSIUM 3.5 MMOL/L (3.6-5.0)
[2020-11-11 05:00] LABS: CALCIUM 8.3 MG/DL (8.5-10.1)
[2020-11-11 05:04] LABS: CREATININE SERUM 0.68 MG/DL (0.60-1.30)
[2020-11-11] MEDS: inSUlin ASPART (NovoLOG) 1 UNIT/0.01 ML (CHARGE PER UNIT) SC SCH ×4 (05:13→20:31)
[2020-11-11] MEDS: predniSONE 20 MG TAB PO SCH ×2 (05:41)
[2020-11-11] MEDS: SUCRALFATE 1 GM (CARAFATE) TAB PO SCH ×4 (05:41→19:37)
[2020-11-11] MEDS: PANTOPRAZOLE 40 MG (PROTONIX) VIAL IV SCH (09:01)
--- NOTE | 2020-11-11 10:53 | Progress Note ---
Subjective Subjective Date Seen by Provider: Nov 11, 2020 Time Seen by Provider: 11:00 70 yo M - no overnight events- He did report more pain in his left supraclavicular lymph node mass area this am when he got up to go the restroom. Nearly took his breath away due to pain. Platelets low again this AM. 18 better from 13 the day before but that is with platelet transfusion. Review of Systems General: No Chills, No Night Sweats HEENT: No Head Aches Pulmonary: Dyspnea; No Cough Cardiovascular: No: Chest Pain, Palpitations Gastrointestinal: No: Nausea, Vomiting Genitourinary: No Dysuria Musculoskeletal: neck pain Neurological: Weakness All Other Systems Reviewed All Other Systems Reviewed: Yes (Negative excepted noted.) Objective Exam Vital Signs Vital Signs Date Time Temp Pulse Resp B/P (MAP) Pulse Ox O2 Delivery O2 Flow Rate FiO2 11/11/20 09:00 Room Air 11/11/20 07:30 35.8 91 18 137/83 (101) 93 Room Air 11/11/20 07:00 83 11/11/20 04:14 36.4 91 16 157/89 (111) 97 Room Air 11/11/20 01:00 81 11/10/20 23:52 35.6 89 16 146/88 (107) 97 Room Air 11/10/20 20:00 36.1 83 20 158/89 (112) 99 Room Air 11/10/20 20:00 Room Air 11/10/20 19:00 85 11/10/20 17:39 36.8 83 18 153/90 97 11/10/20 16:00 36.3 99 18 149/92 (111) 97 Room Air 11/10/20 14:55 36.6 91 18 138/83 96 11/10/20 14:32 36.8 94 18 134/82 96 Room Air 11/10/20 13:00 81 11/10/20 11:40 36.5 89 20 161/89 (113) 96 Room Air I & O 11/11/20 07:00 Intake Total 930 ml Balance 930 ml General Appearance: Mild Distress HEENT: PERRL/EOMI Neck: Lymphadenopathy (L) (significant matted, supraclavicular), Lymphadenopathy (R) Respiratory: Chest Non Tender, Lungs Clear Cardiovascular: Regular Rate, Rhythm Gastrointestinal: Normal Bowel Sounds, Non Tender, Soft Rectal: Deferred Back: No CVA Tenderness Extremity: Non Tender, No Calf Tenderness, No Pedal Edema Neurologic/Psychiatric: Alert, Oriented x3, Normal Mood/Affect Skin: Normal Color, Warm/Dry Lymphatic: Axilla Node Tender (L), Axilla Node Tender (R), Other (b/l cervical/supraclavicualr node, left side matted supraclavicular) Results Lab Laboratory Tests 11/10/20 15:56: Glucometer 188H 11/10/20 20:20: Glucometer 124H 11/11/20 04:15: White Blood Count 13.2H, Red Blood Count 3.94L, Hemoglobin 11.9L, Hematocrit 36L , Mean Corpuscular Volume 90, Mean Corpuscular Hemoglobin 30, Mean Corpuscular Hemoglobin Concent 33, Red Cell Distribution Width 14.2, Platelet Count 18*L, Mean Platelet Volume , Immature Granulocyte % (Auto) 1, Neutrophils (%) (Auto) 85H, Lymphocytes (%) (Auto) 4L, Monocytes (%) (Auto) 9, Eosinophils (%) (Auto) 1, Basophils (%) (Auto) 0, Neutrophils # (Auto) 11.2H, Lymphocytes # (Auto) 0.5L , Monocytes # (Auto) 1.1H, Eosinophils # (Auto) 0.1, Basophils # (Auto) 0.0, Immature Granulocyte # (Auto) 0.2H, Sodium Level 135, Potassium Level 3.5L, Chloride Level 105, Carbon Dioxide Level 20L, Anion Gap 10, Blood Urea Nitrogen 13, Creatinine 0.68, Estimat Glomerular Filtration Rate 116, BUN/Creatinine Ratio 19, Glucose Level 117H, Calcium Level 8.3L 11/11/20 10:47: Glucometer 196H Assessment/Plan Assessment/Plan Assessment and Plan 11/10/20- transfusing platelets as they are back down to 13. Holding xarelto dose today- will reassess tomorrow. Continue oral prednisone. Toug h situation with the PE history and low plts. Awaiting pathology to determine primary source of malignancy. 11/11/20- ordered platelets again today for platelets of 18. Hold xarelto again today- reassess tomorrow if plts above 20 consider restarting xarelto- continue prednisone. Potassium added for hypokalemia. Continue IVF. WBC elevated attributed to steroids. Pain controlled with po opioids but not as well as a couple days ago. Adding on fentanyl 25mcg IV. On GI ppx ppi, carafate. Dispo: prognosis: guarded. Problems: (1) Thrombocytopenia (2) Pulmonary embolism (3) Lymphadenopathy, generalized (4) HTN (hypertension) (5) RONDA (acute kidney injury) (6) Hypokalemia (7) Malignancy BERTO PEREZ MD Nov 11, 2020 10:53
[2020-11-11] MEDS ORDERED: NS IV 500 ML 500 ML ONE (11:17)
[2020-11-11] MEDS: KCL 20 MEQ TAB (K-DUR) PO SCH (11:29)
--- NOTE | 2020-11-11 11:51 | Progress Note - Surgery ---
Subjective Date Seen by a Provider: Nov 11, 2020 Time Seen by a Provider: 09:00 Subjective/Events-last exam Patient states a little anxious. Breathing about the same. Left neck pain. Platelets up to 18. Using IS. Denies n/v fever sweats chills or chest pain. Objective Exam Vital Signs Date Time Temp Pulse Resp B/P (MAP) Pulse Ox O2 Delivery O2 Flow Rate FiO2 11/11/20 11:17 35.6 83 20 161/95 (117) 95 Room Air 11/11/20 09:00 Room Air 11/11/20 07:30 35.8 91 18 137/83 (101) 93 Room Air 11/11/20 07:00 83 11/11/20 04:14 36.4 91 16 157/89 (111) 97 Room Air 11/11/20 01:00 81 11/10/20 23:52 35.6 89 16 146/88 (107) 97 Room Air 11/10/20 20:00 36.1 83 20 158/89 (112) 99 Room Air 11/10/20 20:00 Room Air 11/10/20 19:00 85 11/10/20 17:39 36.8 83 18 153/90 97 11/10/20 16:00 36.3 99 18 149/92 (111) 97 Room Air 11/10/20 14:55 36.6 91 18 138/83 96 11/10/20 14:32 36.8 94 18 134/82 96 Room Air 11/10/20 13:00 81 I & O 11/11/20 07:00 Intake Total 930 ml Balance 930 ml Capillary Refill : Less Than 3 Seconds General Appearance: No Apparent Distress, Anxious HEENT: PERRL/EOMI Neck: Lymphadenopathy (L) (significant matted, supraclavicular), Lymphadenopathy (R) Respiratory: Chest Non Tender, No Accessory Muscle Use, No Respiratory Distress Cardiovascular: Regular Rate, Rhythm, No JVD Gastrointestinal: non tender, soft Extremity: Non Tender, No Calf Tenderness Neurologic/Psychiatric: Alert, Oriented x3, Normal Mood/Affect Skin: Normal Color, Warm/Dry Lymphatic: Axilla Node Tender (L), Axilla Node Tender (R), Other (b/l cervical/supraclavicualr node, left side matted supraclavicular) Results Lab Laboratory Tests 11/10/20 15:56: Glucometer 188H 11/10/20 20:20: Glucometer 124H 11/11/20 04:15: White Blood Count 13.2H, Red Blood Count 3.94L, Hemoglobin 11.9L, Hematocrit 36L , Mean Corpuscular Volume 90, Mean Corpuscular Hemoglobin 30, Mean Corpuscular Hemoglobin Concent 33, Red Cell Distribution Width 14.2, Platelet Count 18*L, Mean Platelet Volume , Immature Granulocyte % (Auto) 1, Neutrophils (%) (Auto) 85H, Lymphocytes (%) (Auto) 4L, Monocytes (%) (Auto) 9, Eosinophils (%) (Auto) 1, Basophils (%) (Auto) 0, Neutrophils # (Auto) 11.2H, Lymphocytes # (Auto) 0.5L , Monocytes # (Auto) 1.1H, Eosinophils # (Auto) 0.1, Basophils # (Auto) 0.0, Immature Granulocyte # (Auto) 0.2H, Sodium Level 135, Potassium Level 3.5L, Chloride Level 105, Carbon Dioxide Level 20L, Anion Gap 10, Blood Urea Nitrogen 13, Creatinine 0.68, Estimat Glomerular Filtration Rate 116, BUN/Creatinine Ratio 19, Glucose Level 117H, Calcium Level 8.3L 11/11/20 10:47: Glucometer 196H Assessment/Plan Assessment/Plan Assessment/Plan b/l cervical, supraclavicular and axillary lymphadenopathy s/p L axillary lymph node biopsy Dyspnea, with recent history of pe and dvt right lower extremity Thrombocytopenia RONDA Long-term anticoagulation Platelets being transfused platelets today as they are 18. Xarelto held. Awaiting pathology, if need further biopsy likely would take right supraclavicular/cervical node Awaiting final biopsy result from left axillary needle biopsy still some tissue left which further stains being performed awaiting these results. MARIAM WILKES DO Nov 11, 2020 11:51
--- NOTE | 2020-11-11 11:53 | Progress Note-Post Operative ---
Post-Operative Progess Note Surgeon (s)/Chiropractic Physician (s) Surgeon MARIAM WILKES DO Chiropractic Physician: na Pre-Operative Diagnosis mucous plug left lower lobe Post-Operative Diagnosis diffuse muocus b/l lungs, left lower lobe mucous plug Procedure & Operative Findings Date of Procedure 11/11/20 Procedure Performed/Findings bronchoscopy with b/l washings Anesthesia Type general Estimated Blood Loss Estimated blood loss (mL): none Specimens/Packing Specimens Removed b/l washing and mucous MARIAM WILKES DO Nov 11, 2020 11:53
[2020-11-11] MEDS ORDERED: lisINopril 20 MG (PRINIVIL) TABLET PO ONE (12:15)
[2020-11-11] MEDS: fentaNYL INJ 100 MCG/2 ML AMP IVP PRN (19:37)
[2020-11-12] VITALS (29 sets, daily range): BP systolic 126–184; BP diastolic 77–106
[2020-11-12] MEDS: HYDROcodone/APAP 5 MG/325 MG (LORTAB) TAB PO PRN ×5 (03:34→23:21)
[2020-11-12 04:42] LABS: BASOPHILS % (AUTO) 0 % (0-10); EOSINOPHILS # (AUTO) 0.2 10^3/uL (0.0-0.3); EOSINOPHILS % (AUTO) 2 % (0-10); HEMATOCRIT 38 % (40-54); HEMOGLOBIN 12.6 g/dL (13.3-17.7); LYMPHOCYTES # (AUTO) 0.6 10^3/uL (1.0-4.0); LYMPHOCYTES % (AUTO) 4 % (12-44); MEAN CORPUSCULAR HEMOGLOBIN 31 pg (25-34); MEAN CORPUSCULAR HGB CONC 33 g/dL (32-36); MEAN CORPUSCULAR VOLUME 92 fL (80-99); MONOCYTES # (AUTO) 1.3 10^3/uL (0.0-1.0); MONOCYTES % (AUTO) 9 % (0-12); NEUTROPHILS % (AUTO) 84 % (42-75); WHITE BLOOD COUNT 14.3 10^3/uL (4.3-11.0)
[2020-11-12 04:43] LABS: PLATELET COUNT 11 10^3/uL (130-400)
[2020-11-12 04:58] LABS: POTASSIUM 3.7 MMOL/L (3.6-5.0)
[2020-11-12 04:59] LABS: CALCIUM 8.2 MG/DL (8.5-10.1)
[2020-11-12 05:04] LABS: CREATININE SERUM 0.63 MG/DL (0.60-1.30)
[2020-11-12] MEDS: predniSONE 20 MG TAB PO SCH ×2 (05:59)
[2020-11-12] MEDS: inSUlin ASPART (NovoLOG) 1 UNIT/0.01 ML (CHARGE PER UNIT) SC SCH ×4 (05:59→20:27)
[2020-11-12] MEDS: SUCRALFATE 1 GM (CARAFATE) TAB PO SCH ×4 (05:59→20:25)
[2020-11-12] MEDS: KCL 20 MEQ TAB (K-DUR) PO SCH (06:00)
--- NOTE | 2020-11-12 07:41 | Progress Note - Surgery ---
CHER HERNÁNDEZ 11/12/20 0741: Subjective Date Seen by a Provider: Nov 12, 2020 Time Seen by a Provider: 07:15 Subjective/Events-last exam Patient is a 70 y/o male with recent lymph node biopsy. Patient currently has a platelet level of 11 from 18 yesterday. Patient reports he is feeling weak and not great. Patient has diffuse abdominal tenderness. Patient has prominent left supraclavicular and left axillary LAD. Patient reports being SOB and cannot walk farther than the bathroom. Patient's Xarelto is currently being held. Review of Systems General: No Chills; Fatigue HEENT: Head Aches; No Visual Changes Pulmonary: Dyspnea, Cough (Nonproductive) Cardiovascular: No: Chest Pain, Palpitations Gastrointestinal: Abdominal Pain; No: Nausea, Vomiting Genitourinary: No Dysuria, No Frequency Musculoskeletal: neck pain (LAD), arm pain (axilla) Neurological: No: Weakness, Confusion Focused Exam Respiratory: Chest Non Tender, No Accessory Muscle Use, No Respiratory Distress Cardiovascular: Regular Rate, Rhythm, No Murmur, Normal Peripheral Pulses Capillary Refill: Less Than 3 Seconds Peripheral Pulses: 2+ Dorsalis Pedis (R), 2+ Left Dors-Pedis (L), 2+ Radial Pulses (R), 2+ Radial Pulses (L) Skin: warm/dry, ecchymosis (Abdomen and left axilla) Objective Exam Vital Signs Date Time Temp Pulse Resp B/P (MAP) Pulse Ox O2 Delivery O2 Flow Rate FiO2 11/12/20 04:09 36.6 91 19 158/93 (114) 97 Room Air 11/12/20 01:00 94 11/12/20 00:00 36.4 108 16 145/89 (107) 94 Room Air 11/11/20 20:00 36.0 88 16 158/87 (110) 94 Room Air 11/11/20 19:40 Room Air 11/11/20 19:00 112 11/11/20 18:38 93 Room Air 11/11/20 16:00 37.2 95 18 141/80 (100) 95 Room Air 11/11/20 15:40 37.2 97 18 141/80 93 11/11/20 12:51 81 11/11/20 11:50 36.8 82 20 164/97 96 Room Air 11/11/20 11:17 35.6 83 20 161/95 (117) 95 Room Air 11/11/20 09:00 Room Air I & O 11/12/20 07:00 Intake Total 1640 ml Balance 1640 ml Capillary Refill : Less Than 3 Seconds General Appearance: No Apparent Distress, Anxious HEENT: PERRL/EOMI Neck: Lymphadenopathy (L) (supraclavicular, cervical, and axillary), Lymphadenopathy (R) (supraclavicular, cervical, and axillary) Respiratory: Chest Non Tender, No Accessory Muscle Use, No Respiratory Distress Cardiovascular: Regular Rate, Rhythm, No Murmur, Normal Peripheral Pulses Peripheral Pulses: 2+ Dorsalis Pedis (R), 2+ Left Dors-Pedis (L), 2+ Radial Pulses (R), 2+ Radial Pulses (L) Gastrointestinal: normal bowel sounds, soft, tenderness (Diffuse tenderness) Extremity: Normal Capillary Refill Neurologic/Psychiatric: Alert, Oriented x3, No Motor/Sensory Deficits, Normal Mood/Affect, automatic embroidery machine tender II-XII Norm as Tested Skin: Warm/Dry, Ecchymosis (abdomen and left axilla) Lymphatic: Axilla Node Tender (L), Axilla Node Tender (R), Other (b/l cervical/supraclavicualr node, left side matted supraclavicular) Results Lab Laboratory Tests 11/11/20 10:47: Glucometer 196H 11/11/20 15:52: Glucometer 217H 11/11/20 20:16: Glucometer 100 11/12/20 04:25: White Blood Count 14.3H, Red Blood Count 4.10L, Hemoglobin 12.6L, Hematocrit 38L , Mean Corpuscular Volume 92, Mean Corpuscular Hemoglobin 31, Mean Corpuscular Hemoglobin Concent 33, Red Cell Distribution Width 14.7H, Platelet Count 11*L, Mean Platelet Volume , Immature Granulocyte % (Auto) 1, Neutrophils (%) (Auto) 84H, Lymphocytes (%) (Auto) 4L, Monocytes (%) (Auto) 9, Eosinophils (%) (Auto) 2, Basophils (%) (Auto) 0, Neutrophils # (Auto) 12.0H, Lymphocytes # (Auto) 0.6L , Monocytes # (Auto) 1.3H, Eosinophils # (Auto) 0.2, Basophils # (Auto) 0.0, Immature Granulocyte # (Auto) 0.2H, Percent Immature Platelet Fraction 17.1H, Sodium Level 137, Potassium Level 3.7, Chloride Level 106, Carbon Dioxide Level 18L, Anion Gap 13, Blood Urea Nitrogen 13, Creatinine 0.63, Estimat Glomerular Filtration Rate 127, BUN/Creatinine Ratio 21, Glucose Level 118H, Calcium Level 8.2L 11/12/20 05:22: Glucometer 131H Assessment/Plan Assessment/Plan Assessment/Plan b/l cervical, supraclavicular and axillary lymphadenopathy s/p L axillary lymph node biopsy Dyspnea, with recent history of pe and dvt right lower extremity Thrombocytopenia RONDA Long-term anticoagulation Platelets at 11 today. Xarelto held. Awaiting pathology, if need further biopsy likely would take right supraclavicular/cervical node Awaiting final biopsy result from left axillary needle biopsy still some tissue left which further stains being performed awaiting these results. MARIAM POND DO 11/12/201906: Subjective Subjective/Events-last exam Patient feeling weak. Shortness of breath is slightly improved. Patient still some discomfort in the left supraclavicular area with the matted lymph nodes. Patient still awaiting final pathology. Denies any nausea or vomiting fever sweats chills or chest pain. Xarelto was restarted today. Objective Exam General Appearance: No Apparent Distress, Anxious HEENT: PERRL/EOMI, Moist Mucous Membranes Neck: Lymphadenopathy (L) (supraclavicular, cervical, and axillary), Lymphadenopathy (R) (supraclavicular, cervical, and axillary) Respiratory: Chest Non Tender, No Accessory Muscle Use, No Respiratory Distress Cardiovascular: Regular Rate, Rhythm, No JVD Gastrointestinal: soft, tenderness (Diffuse tenderness minimal) Extremity: Normal Capillary Refill Neurologic/Psychiatric: Alert, Oriented x3, No Motor/Sensory Deficits, Normal Mood/Affect, automatic embroidery machine tender II-XII Norm as Tested Skin: Warm/Dry, Ecchymosis (abdomen and left axilla) Lymphatic: Axilla Node Tender (L), Axilla Node Tender (R), Other (b/l cervical/supraclavicualr node, left side matted supraclavicular) Assessment/Plan Assessment/Plan Assessment/Plan b/l cervical, supraclavicular and axillary lymphadenopathy s/p L axillary lymph node biopsy Dyspnea, with recent history of pe and dvt right lower extremity Thrombocytopenia RONDA Long-term anticoagulation Platelets at 11 today. . Awaiting pathology, if need further biopsy likely would take right s upraclavicular/cervical node Awaiting final biopsy result from left axillary needle biopsy still some tissue left which further stains being performed awaiting these results Discussed with Dr. Funes further care plans. 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 He will need a port placed. Okay to hold Xarelto starting tomorrow and place port on . Will need platelet possibly prior to procedure 2 units and have one on hold for after the procedure if numbers don't increase. Will discuss with patient in the morning. Supervisory-Addendum Brief Verification & Attestation Participated in pt care: history, MDM, physical Personally performed: exam, history, MDM, supervision of care Care discussed with: Medical Student Procedures: n/a Results interpretation: Verified all documentation Verification and Attestation of Medical Student E/M Service A medical student performed and documented this service in my presence. I revie wed and verified all information documented by the medical student and made modifications to such information, when appropriate. I personally performed the physical exam and medical decision making. Mraiam Pond, Nov 12, 2020,19:06 CHER HERNÁNDEZ Nov 12, 2020 07:41 MARIAM POND DO Nov 12, 2020 19:07
[2020-11-12] MEDS: lisINopril 40 MG (PRINIVIL) TABLET PO SCH (08:20)
[2020-11-12] MEDS: PANTOPRAZOLE 40 MG (PROTONIX) VIAL IV SCH (08:21)
[2020-11-12] MEDS: NS IV 1000 ML 1,000 ML IV SCH ×3 (08:25→23:21)
[2020-11-12] MEDS ORDERED: RIVAROXABAN 20 MG TABLET (XARELTO) PO ONE (08:45)
--- NOTE | 2020-11-12 09:08 | Diagnostic Imaging Report ---
INDICATION: Shortness of breath. TECHNIQUE/COMPARISON: PA and lateral films of the chest were obtained at 9:04 AM and compared to 11/08/2020. FINDINGS: The heart and mediastinal silhouette are normal in appearance. There is central vascular congestion with chronic appearing increased interstitial markings. There is a small amount of pleural fluid on the right side which is unchanged. There is no new consolidation or pneumothorax. There is trace pleural fluid on the left side as well. IMPRESSION: Central vascular congestion with a small right pleural effusion and a trace left pleural effusion. No new infiltrate is seen. Dictated by: Dictated on workstation # [id number]
[2020-11-12] MEDS ORDERED: NS IV 500 ML 500 ML ONE (09:17)
[2020-11-12] MEDS ORDERED: CYANOCOBALAMIN INJ 1000 MCG/ML IM NR (11:45)
[2020-11-12] MEDS ORDERED: IVIG IV ONE (11:45)
--- NOTE | 2020-11-12 11:59 | Progress Note ---
Standard Progress Note Progress Notes/Assess & Plan Date Seen by a Provider: Nov 12, 2020 Time Seen by a Provider: 11:52 Progress/Assessment & Plan 70-year-old male with rapid onset lymphadenopathy and thrombocytopenia admitted with shortness of breath. Core needle biopsy of left axillary lymph node consistent with a carcinoma with additional IHC stains reported verbally as consistent with adenocarcinoma of lung primary. PET CT scan done previously showing significant lymphadenopathy in lower cervical, bilateral supraclavicular, axillary, mediastinal and para-aortic regions with a small PET avid left upper lobe lung lesion which is probably the primary. Thrombocytopen ia clinically consistent with ITP as there is no significant bone marrow activity on the PET CT scan and rest of blood counts normal. Patient was started on prednisone 70 mg daily with no significant benefit yet. On proton pump inhibitor for gastric protection. 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 I will start the patient on IVIG 70 g daily x2 and monitor the platelet counts. I will start the patient on vitamin B12 1000 mcg IM today and folic acid 1 mg daily in preparation for chemotherapy with Alimta, carboplatin and Keytruda regimen next week. Patient will need a port placed for administration of chemotherapy, preferably on the right side. I have discussed this with Dr. Pond. He will need to stop Xar elto for 2 days prior to port placement. Patient may need platelet transfusion prior to the procedure if the platelet counts have not improved. I have discussed the diagnosis and treatment recommendations as well as need for port with the patient and answered his questions. Will follow patient with you. ROMAINE BARNES Nov 12, 2020 11:59
[2020-11-12] MEDS: fentaNYL INJ 100 MCG/2 ML AMP IVP PRN (12:22)
[2020-11-12] MEDS ORDERED: FUROSEMIDE 40 MG/4 ML INJ (LASIX) IVP ONE (12:30)
[2020-11-12] MEDS ORDERED: KCL 20 MEQ TAB (K-DUR) PO ONE (12:30)
[2020-11-12] MEDS: IMMUNE GLOBULIN IV SCH ×4 (12:58→16:59)
[2020-11-12] MEDS: BACLOFEN 10 MG (LIORESAL) TAB PO SCH ×2 (13:05→20:25)
--- NOTE | 2020-11-12 13:10 | Progress Note ---
Subjective Date Seen by a Provider: Nov 12, 2020 Time Seen by a Provider: 13:05 Subjective/Events-last exam Fwup thrombocytopenia, diffuse hypermetabolic lymphadenopathy, Right sided PE and Pleural Effusion with atelectesis, dyspnea on exertion. More short of air this am and pain from left supraclavicular area radiating up neck to head. Objective Exam Vital Signs Date Time Temp Pulse Resp B/P (MAP) Pulse Ox O2 Delivery O2 Flow Rate FiO2 11/12/20 12:00 36.6 90 18 149/90 (109) 94 Room Air 11/12/20 10:27 36.4 90 20 148/93 95 Room Air 11/12/20 10:05 36.2 89 22 139/89 96 Room Air 11/12/20 08:41 Room Air 11/12/20 08:00 36.6 96 16 136/88 (104) 93 Room Air 11/12/20 06:26 90 11/12/20 04:09 36.6 91 19 158/93 (114) 97 Room Air 11/12/20 01:00 94 11/12/20 00:00 36.4 108 16 145/89 (107) 94 Room Air 11/11/20 20:00 36.0 88 16 158/87 (110) 94 Room Air 11/11/20 19:40 Room Air 11/11/20 19:00 112 11/11/20 18:38 93 Room Air 11/11/20 16:00 37.2 95 18 141/80 (100) 95 Room Air 11/11/20 15:40 37.2 97 18 141/80 93 I & O 11/12/20 07:00 Intake Total 1640 ml Balance 1640 ml Capillary Refill : Less Than 3 Seconds General Appearance: Mild Distress Respiratory: Lungs Clear Cardiovascular: Regular Rate, Rhythm Gastrointestinal: normal bowel sounds, non tender, soft Extremity: Non Tender, No Calf Tenderness Neurologic/Psychiatric: Alert, Oriented x3 Skin: Warm/Dry Results Lab Laboratory Tests 11/11/20 15:52: Glucometer 217H 11/11/20 20:16: Glucometer 100 11/12/20 04:25: White Blood Count 14.3H, Red Blood Count 4.10L, Hemoglobin 12.6L, Hematocrit 38L , Mean Corpuscular Volume 92, Mean Corpuscular Hemoglobin 31, Mean Corpuscular Hemoglobin Concent 33, Red Cell Distribution Width 14.7H, Platelet Count 11*L, Mean Platelet Volume , Immature Granulocyte % (Auto) 1, Neutrophils (%) (Auto) 84H, Lymphocytes (%) (Auto) 4L, Monocytes (%) (Auto) 9, Eosinophils (%) (Auto) 2, Basophils (%) (Auto) 0, Neutrophils # (Auto) 12.0H, Lymphocytes # (Auto) 0.6L , Monocytes # (Auto) 1.3H, Eosinophils # (Auto) 0.2, Basophils # (Auto) 0.0, Immature Granulocyte # (Auto) 0.2H, Percent Immature Platelet Fraction 17.1H, So dium Level 137, Potassium Level 3.7, Chloride Level 106, Carbon Dioxide Level 18L, Anion Gap 13, Blood Urea Nitrogen 13, Creatinine 0.63, Estimat Glomerular Filtration Rate 127, BUN/Creatinine Ratio 21, Glucose Level 118H, Calcium Level 8.2L 11/12/20 05:22: Glucometer 131H 11/12/20 11:17: Glucometer 131H Assessment/Plan Assessment/Plan Assess & Plan/Chief Complaint 1. Acute Thrombocytopenia/ITP--S/P platelet transfusion today, on prednisone, IVIG started per oncology 2. Right Sided PE--Xarelto was held through weekend due to platelets so given a dose this morning due to worsening shortness of air, will need to hold xarelto for 2 days for port placement 3. Right Sided Pleural Effusion/Atelectesis--IS started, give IV lasix with potassium now due to pulmonary venous congestion 4. Acute Renal Insufficiency--improved with hydration 5. Hyperglycemia--patient has known impaired fasting glucose--on accuchecks with SSI 6. Hypertension--lisinopril restarted 7. Lung Adenocarcinoma with diffuse mets to lymph nodes--Dr. Funes planning on starting treatment next week 8. Left Supraclavicular lymphadenopathy with left neck pain/neuropathy--requiring fentanyl for pain, will add baclofen and gabapentin Clinical Quality Measures Admission Status Admission Dx 1. Acute Thrombocytopenia--admit and transfuse platelets and repeat CBC in Am, Dr. Funes to consult, Change eliquis to xarelto in case this is contributing, consider steroids if could be ITP related 2. Generalized Lymphadenopathy--had axillary lymph node biopsy earlier in the week--so far no obvious lymphoma but other staining and evaluation are pending by pathology, may need another surgical biopsy but will wait on pathology finishing workup on current biopsy first due to thrombocytopenia and DVT/PE 3. Right LE DVT and Right sided PE--needs to stay on blood thinner but will change eliquis to Xarelto in case this is contributing to thrombocytopenia 4. Dyspnea on Exertion/Right sided pleural effusion--start IS, albuterol in SVN prn 5. Acute Renal Insufficiency/Hyponatremia--hydrate and repeat levels in AM MICHELL DAS DO Nov 12, 2020 13:10
[2020-11-12] MEDS ORDERED: diphenhydrAMINE 25 MG TAB (BENADRYL) PO ONE (15:30)
[2020-11-12] MEDS ORDERED: ACETAMINOPHEN 325 MG TABLET PO ONE (15:30)
[2020-11-12] MEDS ORDERED: GABAPENTIN 100 MG (NEURONTIN) CAP PO ONE (21:00)
[2020-11-13] VITALS (27 sets, daily range): BP systolic 123–164; BP diastolic 82–103
[2020-11-13] MEDS: fentaNYL INJ 100 MCG/2 ML AMP IVP PRN ×3 (02:17→22:05)
[2020-11-13 04:26] LABS: HEMOGLOBIN 11.1 g/dL (13.3-17.7)
[2020-11-13 04:28] LABS: HEMATOCRIT 33 % (40-54); MEAN CORPUSCULAR HEMOGLOBIN 31 pg (25-34); MEAN CORPUSCULAR HGB CONC 33 g/dL (32-36); MEAN CORPUSCULAR VOLUME 92 fL (80-99); WHITE BLOOD COUNT 12.3 10^3/uL (4.3-11.0)
[2020-11-13 04:34] LABS: PLATELET COUNT 7 10^3/uL (130-400)
[2020-11-13 04:52] LABS: POTASSIUM 3.6 MMOL/L (3.6-5.0)
[2020-11-13 04:53] LABS: CALCIUM 7.7 MG/DL (8.5-10.1)
[2020-11-13 04:58] LABS: CREATININE SERUM 0.67 MG/DL (0.60-1.30)
[2020-11-13] MEDS: inSUlin ASPART (NovoLOG) 1 UNIT/0.01 ML (CHARGE PER UNIT) SC SCH ×4 (05:31→20:37)
[2020-11-13] MEDS: SUCRALFATE 1 GM (CARAFATE) TAB PO SCH ×4 (05:49→20:36)
[2020-11-13] MEDS: HYDROcodone/APAP 5 MG/325 MG (LORTAB) TAB PO PRN ×4 (05:49→20:37)
[2020-11-13] MEDS: KCL 20 MEQ TAB (K-DUR) PO SCH (05:50)
[2020-11-13] MEDS: predniSONE 20 MG TAB PO SCH ×2 (05:50)
--- NOTE | 2020-11-13 07:52 | Progress Note - Surgery ---
JOHN ROSENBAUM 11/13/20 0752: Subjective Date Seen by a Provider: Nov 13, 2020 Time Seen by a Provider: 07:15 Subjective/Events-last exam Pt reports breathing is better today. Platelets are currently 7, down from 11 yesterday. Reports some chills caused by medication that resolved on lowering dose. Denies any fever, nausea, vomiting, diarrhea, or chest pain. Pt is tachycardic. Xarelto currently held. Objective Exam Vital Signs Date Time Temp Pulse Resp B/P (MAP) Pulse Ox O2 Delivery O2 Flow Rate FiO2 11/13/20 07:38 36.5 107 20 123/84 (97) 91 Room Air 11/13/20 07:36 36.2 106 92 11/13/20 07:33 92 Room Air 11/13/20 06:33 104 132/90 (104) 91 Room Air 11/13/20 04:20 104 152/97 (115) 93 Room Air 11/13/20 04:00 36.2 100 20 136/84 (101) 93 Room Air 11/13/20 03:20 99 131/86 (101) 91 Room Air 11/13/20 02:50 103 131/89 (103) 90 Room Air 11/13/20 02:20 102 128/86 (100) 90 Room Air 11/13/20 01:50 102 150/92 (111) 94 Room Air 11/13/20 01:00 95 136/88 (104) 94 Room Air 11/13/20 01:00 91 11/13/20 00:24 88 145/88 (107) 93 Room Air 11/12/20 23:28 36.3 88 20 151/91 (111) 95 Room Air 11/12/20 22:54 88 153/89 (110) 97 Room Air 11/12/20 22:24 86 159/99 (119) 96 Room Air 11/12/20 21:54 87 129/86 (100) 96 Room Air 11/12/20 21:24 85 126/83 (97) 96 Room Air 11/12/20 20:54 88 131/87 (102) 96 Room Air 11/12/20 20:33 91 Room Air 11/12/20 20:24 37.0 93 16 136/90 (105) 97 Room Air 11/12/20 20:20 Room Air 11/12/20 19:42 92 131/88 (102) 97 Room Air 11/12/20 19:21 37.5 93 20 149/85 (106) 95 Room Air 11/12/20 19:00 92 11/12/20 17:52 97 20 132/86 (101) 95 Room Air 11/12/20 17:25 36.6 99 20 158/78 (104) 92 Room Air 11/12/20 17:00 37.0 105 20 126/79 (95) 93 Room Air 11/12/20 16:40 37.0 109 20 127/79 (95) 92 Room Air 11/12/20 15:52 36.6 113 20 146/91 (109) 94 Room Air 11/12/20 15:38 36.6 113 20 146/91 (109) 94 Room Air 11/12/20 15:15 36.7 110 22 184/106 (132) 94 Room Air 11/12/20 15:00 36.4 104 22 144/94 (111) 97 Room Air 11/12/20 14:40 36.4 102 22 144/91 (108) 95 Room Air 11/12/20 14:18 35.8 103 22 179/95 (123) 95 Room Air 11/12/20 14:03 36.4 101 20 129/77 (94) 94 Room Air 11/12/20 13:48 36.4 101 20 139/82 (101) 93 Room Air 11/12/20 13:33 36.2 100 22 128/84 (99) 11/12/20 13:10 104 11/12/20 12:53 36.3 101 20 128/84 95 Room Air 11/12/20 12:00 36.6 90 18 149/90 (109) 94 Room Air 11/12/20 10:27 36.4 90 20 148/93 95 Room Air 11/12/20 10:05 36.2 89 22 139/89 96 Room Air 11/12/20 08:41 Room Air 11/12/20 08:00 36.6 96 16 136/88 (104) 93 Room Air I & O 11/13/20 07:00 Intake Total 2437 ml Output Total 900 ml Balance 1537 ml Capillary Refill : Less Than 3 Seconds General Appearance: No Apparent Distress, WD/WN, Anxious HEENT: PERRL/EOMI Neck: Lymphadenopathy (L) (supraclavicular, cervical), Lymphadenopathy (R) (supraclavicular, cervical) Respiratory: Chest Non Tender, No Accessory Muscle Use, No Respiratory Distress Cardiovascular: Tachycardia Peripheral Pulses: 2+ Dorsalis Pedis (R), 2+ Left Dors-Pedis (L), 2+ Radial Pulses (R), 2+ Radial Pulses (L) Gastrointestinal: non tender, soft Extremity: Normal Capillary Refill, Non Tender, No Calf Tenderness, No Pedal Edema Neurologic/Psychiatric: Alert, Oriented x3, Normal Mood/Affect Skin: Warm/Dry Lymphatic: Axilla Node Tender (L), Axilla Node Tender (R), Other (b/l cervical/supraclavicular node, left side matted supraclavicular) Results Lab Laboratory Tests 11/12/20 11:17: Glucometer 131H 11/12/20 13:33: Lab Scanned Report Transfusion Reaction Form 11/12/20 15:50: Glucometer 203H 11/12/20 20:07: Glucometer 122H 11/13/20 04:05: White Blood Count 12.3H, Red Blood Count 3.60L, Hemoglobin 11.1L, Hematocrit 33L , Mean Corpuscular Volume 92, Mean Corpuscular Hemoglobin 31, Mean Corpuscular Hemoglobin Concent 33, Red Cell Distribution Width 15.3H, Platelet Count 7*L, Mean Platelet Volume , Percent Immature Platelet Fraction 27.8H, Sodium Level 136, Potassium Level 3.6, Chloride Level 105, Carbon Dioxide Level 21, Anion Gap 10, Blood Urea Nitrogen 14, Creatinine 0.67, Estimat Glomerular Filtration Rate 118, BUN/Creatinine Ratio 21, Glucose Level 111H, Calcium Level 7.7L 11/13/20 05:31: Glucometer 136H Assessment/Plan Assessment/Plan Assessment/Plan Adenoma carcinoma of the lung b/l cervical, supraclavicular and axillary lymphadenopathy s/p L axillary lymph node biopsy Dyspnea, with recent history of pe and dvt right lower extremity Thrombocytopenia RONDA Long-term anticoagulation Platelets at 7 today Xarelto Held Port placement, will transfuse 2 units of platelets prior to procedure and one ready for after the procedure if needed WOJCIECH POND DO 11/13/202028: Subjective Subjective/Events-last exam Patient's breathing is low bit better today states. Patient platelets have decreased down to 7. Patient has received IVIG. Patient with Xarelto on hold. Patient planning on port placement on . Patient with no other new co mplaints. Denies any nausea vomiting fever sweats chills shortness of breath or chest pain. Objective Exam General Appearance: No Apparent Distress, Anxious HEENT: PERRL/EOMI Neck: Lymphadenopathy (L) (supraclavicular, cervical), Lymphadenopathy (R) (supraclavicular, cervical) Respiratory: Chest Non Tender, No Accessory Muscle Use, No Respiratory Distress Cardiovascular: Regular Rate, Rhythm, No JVD Gastrointestinal: non tender, soft Extremity: Normal Capillary Refill, Non Tender, No Calf Tenderness Neurologic/Psychiatric: Alert, Oriented x3, Normal Mood/Affect Skin: Warm/Dry Lymphatic: Axilla Node Tender (L), Axilla Node Tender (R), Other (b/l cervical/supraclavicular node, left side matted supraclavicular) Assessment/Plan Assessment/Plan Assessment/Plan Boipsy from left axillary node reported as Adenocarcinoma consistent of lung primary b/l cervical, supraclavicular and axillary lymphadenopathy s/p L axillary lymph node biopsy Dyspnea, with recent history of pe and dvt right lower extremity Thrombocytopenia RONDA Long-term anticoagulation Platelets at 7 today Xarelto Held Port placement risks and benefits discussed with patient which he understands and understands higher risk with low platelets. To make safer if IVIG not helping platelets to icrease, will transfuse 2 units of platelets prior to procedure and one ready for after the procedure if needed Patient understands and agrees with plan. Repeat labs in am Supervisory-Addendum Brief Verification & Attestation Participated in pt care: history, MDM, physical Personally performed: exam, history, MDM, supervision of care Care discussed with: Medical Student Procedures: n/a Results interpretation: Verified all documentation Verification and Attestation of Medical Student E/M Service A medical student performed and documented this service in my presence. I re viewed and verified all information documented by the medical student and made modifications to such information, when appropriate. I personally performed the physical exam and medical decision making. Wojciech Pond, Nov 13, 2020,20:29 JOHN ROSENBAUM Nov 13, 2020 07:52 WOJCIECH POND DO Nov 13, 2020 20:29
[2020-11-13] MEDS: lisINopril 40 MG (PRINIVIL) TABLET PO SCH (09:41)
[2020-11-13] MEDS: PANTOPRAZOLE 40 MG (PROTONIX) VIAL IV SCH (09:41)
[2020-11-13] MEDS: FOLIC ACID 1 MG TAB PO SCH (09:41)
[2020-11-13] MEDS: BACLOFEN 10 MG (LIORESAL) TAB PO SCH ×3 (09:41→20:37)
[2020-11-13] MEDS ORDERED: IVIG IV ONE (11:45)
[2020-11-13] MEDS ORDERED: IMMUNE GLOBULIN IV SCH ×2 (12:00)
[2020-11-13] MEDS ORDERED: IVIG 20 GM (PRIVIGEN) 200 ML IV SCH (12:00)
[2020-11-13] MEDS ORDERED: IVIG 10 GM (PRIVIGEN) 100 ML IV NR ×2 (14:01)
[2020-11-13] MEDS: IVIG 20 GM (PRIVIGEN) 200 ML IV SCH ×3 (14:31→20:36)
[2020-11-13] MEDS: NS IV 1000 ML 1,000 ML IV SCH (17:59)
[2020-11-13] MEDS ORDERED: NS IV 500 ML 500 ML ONE (18:50)
[2020-11-13] MEDS: GABAPENTIN 300 MG (NEURONTIN) CAP PO SCH (20:37)
[2020-11-13] MEDS ORDERED: KCL 20 MEQ TAB (K-DUR) PO ONE (21:00)
[2020-11-13] MEDS ORDERED: FUROSEMIDE 40 MG/4 ML INJ (LASIX) IVP ONE (21:00)
[2020-11-13] MEDS ORDERED: amLODIPine 5 MG (NORVASC) TAB PO ONE (21:00)
[2020-11-13] MEDS ORDERED: amLODIPine 5 MG (NORVASC) TAB PO PRN (21:30)
[2020-11-14] VITALS (17 sets, daily range): BP systolic 138–169; BP diastolic 87–113
[2020-11-14] MEDS: HYDROcodone/APAP 5 MG/325 MG (LORTAB) TAB PO PRN ×5 (01:37→22:55)
[2020-11-14] MEDS: KCL 20 MEQ TAB (K-DUR) PO SCH ×2 (05:37→17:16)
[2020-11-14] MEDS: SUCRALFATE 1 GM (CARAFATE) TAB PO SCH ×4 (05:37→21:21)
[2020-11-14] MEDS: predniSONE 20 MG TAB PO SCH ×2 (05:38)
[2020-11-14 05:50] LABS: HEMATOCRIT 33 % (40-54)
[2020-11-14 05:51] LABS: HEMOGLOBIN 10.7 g/dL (13.3-17.7); MEAN CORPUSCULAR HEMOGLOBIN 30 pg (25-34); MEAN CORPUSCULAR HGB CONC 33 g/dL (32-36); MEAN CORPUSCULAR VOLUME 91 fL (80-99); WHITE BLOOD COUNT 15.1 10^3/uL (4.3-11.0)
[2020-11-14] MEDS: inSUlin ASPART (NovoLOG) 1 UNIT/0.01 ML (CHARGE PER UNIT) SC SCH ×4 (06:00→21:31)
[2020-11-14 06:04] LABS: PLATELET COUNT 17 10^3/uL (130-400)
[2020-11-14 06:05] LABS: POTASSIUM 3.5 MMOL/L (3.6-5.0)
[2020-11-14 06:06] LABS: CALCIUM 8.4 MG/DL (8.5-10.1)
[2020-11-14 06:11] LABS: CREATININE SERUM 0.7 MG/DL (0.60-1.30)
--- NOTE | 2020-11-14 07:57 | Progress Note - Surgery ---
JOHN ROSENBAUM 11/14/20 0757: Subjective Date Seen by a Provider: Nov 14, 2020 Time Seen by a Provider: 07:10 Subjective/Events-last exam Pt reports weakness and SOB on exertion. Currently 95% on 1L nasal canula. Also 2x platelets transfused yesterday, currently platelets at 17. Denies any fever, chills, nausea, vomiting, diarrhea, or chest pain. Objective Exam Vital Signs Date Time Temp Pulse Resp B/P (MAP) Pulse Ox O2 Delivery O2 Flow Rate FiO2 11/14/20 03:38 36.5 102 20 149/96 (113) 95 Nasal Cannula 1.00 11/14/20 01:34 36.1 107 20 153/94 90 11/14/20 01:34 36.1 107 20 153/94 (113) 90 Room Air 11/14/20 01:00 105 11/14/20 00:09 105 20 153/88 (109) 90 Room Air 11/13/20 23:15 36.3 100 20 146/93 90 Room Air 11/13/20 23:01 36.2 101 20 153/94 (113) 90 Room Air 11/13/20 22:54 36.2 101 20 153/94 90 Room Air 11/13/20 22:06 36.5 98 20 146/92 91 Room Air 11/13/20 21:51 92 20 164/103 (123) 92 Room Air 11/13/20 20:41 95 164/96 (118) 92 Room Air 11/13/20 20:20 Room Air 11/13/20 19:40 36.1 96 18 150/97 (114) 93 Room Air 11/13/20 19:07 36.6 105 20 164/100 93 Room Air 11/13/20 19:00 93 11/13/20 18:53 36.3 93 20 153/96 92 Room Air 11/13/20 18:40 36.1 96 18 143/98 (113) 93 Room Air 11/13/20 17:27 36.7 101 18 132/90 (104) 93 Room Air 11/13/20 16:01 36.5 106 20 147/93 (111) 94 Room Air 11/13/20 15:29 36.6 103 20 144/94 (111) 93 Room Air 11/13/20 15:03 36.5 108 20 146/98 (114) 93 Room Air 11/13/20 14:21 36.7 106 20 134/89 (104) 92 Room Air 11/13/20 13:09 106 11/13/20 11:34 36.5 106 22 144/91 (108) 90 Room Air 11/13/20 08:00 Room Air l I & O 11/14/20 07:00 Intake Total 2980 ml Output Total 1925 ml Balance 1055 ml Capillary Refill : Less Than 3 Seconds General Appearance: No Apparent Distress, Anxious HEENT: PERRL/EOMI Neck: Lymphadenopathy (L) (supraclavicular, cervical), Lymphadenopathy (R) (supraclavicular, cervical) Respiratory: Chest Non Tender, Decreased Breath Sounds Cardiovascular: Regular Rate, Rhythm Peripheral Pulses: 2+ Dorsalis Pedis (R), 2+ Left Dors-Pedis (L), 2+ Radial Pu lses (R), 2+ Radial Pulses (L) Gastrointestinal: non tender, soft Extremity: Normal Capillary Refill, Non Tender, No Calf Tenderness, No Pedal Edema Neurologic/Psychiatric: Alert, Oriented x3, Normal Mood/Affect Skin: Normal Color, Warm/Dry Lymphatic: Axilla Node Tender (L), Axilla Node Tender (R), Other (b/l cervical/supraclavicular node, left side matted supraclavicular) Results Lab Laboratory Tests 11/13/20 10:09: Glucometer 142H 11/13/20 15:45: Glucometer 226H 11/13/20 20:06: Glucometer 133H 11/14/20 05:15: White Blood Count 15.1H, Red Blood Count 3.56L, Hemoglobin 10.7L, Hematocrit 33L , Mean Corpuscular Volume 91, Mean Corpuscular Hemoglobin 30, Mean Corpuscular Hemoglobin Concent 33, Red Cell Distribution Width 16.0H, Platelet Count 17*L, Mean Platelet Volume , Percent Immature Platelet Fraction 10.1H, Sodium Level 135, Potassium Level 3.5L, Chloride Level 103, Carbon Dioxide Level 22, Anion Gap 10, Blood Urea Nitrogen 18, Creatinine 0.70, Estimat Glomerular Filtration Rate 112, BUN/Creatinine Ratio 26, Glucose Level 128H, Calcium Level 8.4L Assessment/Plan Assessment/Plan Assessment/Plan Boipsy from left axillary node reported as Adenocarcinoma consistent of lung primary b/l cervical, supraclavicular and axillary lymphadenopathy s/p L axillary lymph node biopsy Dyspnea, with recent history of pe and dvt right lower extremity Thrombocytopenia RONDA Long-term anticoagulation Platelets at 17 today, 2x platelet transfusions yesterday. Xarelto Held Chest CT for possible PE Repeat labs tomorrow am Port placement for tomorrow, one unit of platelets ready for post procedure KATRINMARIAM Mp DO 11/14/202216: Subjective Subjective/Events-last exam Patient has weakness and shortness of breath. Patient states overall just not feeling as good. Patient platelets slightly increased. Patient no other new complaints. Denies any nausea vomiting fever sweats chills shortness of breath or chest pain at this time. Patient planning for port placement tomorrow. Objective Exam General Appearance: No Apparent Distress, Anxious HEENT: PERRL/EOMI Neck: Normal Inspection, Non Tender, Lymphadenopathy (L) (supraclavicular, cervical), Lymphadenopathy (R) (supraclavicular, cervical) Respiratory: Chest Non Tender, No Accessory Muscle Use, No Respiratory Distress Cardiovascular: Regular Rate, Rhythm, No JVD Gastrointestinal: non tender, soft Extremity: Normal Capillary Refill, Non Tender, No Calf Tenderness, No Pedal Edema Neurologic/Psychiatric: Alert, Oriented x3, Normal Mood/Affect Skin: Normal Color, Warm/Dry Lymphatic: Axilla Node Tender (L), Axilla Node Tender (R) Assessment/Plan Assessment/Plan Assessment/Plan Boipsy from left axillary node reported as Adenocarcinoma consistent of lung primary b/l cervical, supraclavicular and axillary lymphadenopathy s/p L axillary lymph node biopsy Dyspnea, with recent history of pe and dvt right lower extremity Thrombocytopenia RONDA Long-term anticoagulation Platelets at 17 today. Xarelto Held Repeat labs tomorrow am Port placement for tomorrow, plan transfusing platelets at time of surgery, one unit of platelets ready for post procedure Supervisory-Addendum Brief Verification & Attestation Participated in pt care: history, MDM, physical Personally performed: exam, history, MDM, supervision of care Care discussed with: Medical Student Procedures: n/a Results interpretation: Verified all documentation Verification and Attestation of Medical Student E/M Service A medical student performed and documented this service in my presence. I reviewed and verified all information documented by the medical student and made modifications to such information, when appropriate. I personally performed the physical exam and medical decision making. Mariam Pond, Nov 14, 2020,22:17 JOHN ROSENBAUM Nov 14, 2020 07:57 MARIAM POND DO Nov 14, 2020 22:17
[2020-11-14] MEDS: BACLOFEN 10 MG (LIORESAL) TAB PO SCH ×3 (09:39→21:22)
[2020-11-14] MEDS: FOLIC ACID 1 MG TAB PO SCH (09:39)
[2020-11-14] MEDS: PANTOPRAZOLE 40 MG (PROTONIX) VIAL IV SCH (09:39)
[2020-11-14] MEDS: GABAPENTIN 300 MG (NEURONTIN) CAP PO SCH ×2 (09:39→21:21)
[2020-11-14] MEDS: lisINopril 40 MG (PRINIVIL) TABLET PO SCH (09:39)
[2020-11-14] MEDS: FUROSEMIDE 40 MG (LASIX) TAB PO SCH (09:43)
--- NOTE | 2020-11-14 13:01 | Progress Note ---
Subjective Date Seen by a Provider: Nov 14, 2020 Time Seen by a Provider: 12:57 Subjective/Events-last exam Fwup thrombocytopenia, diffuse hypermetabolic lymphadenopathy, Right sided PE and Pleural Effusion with atelectesis, dyspnea on exertion. Sitting up in chair but groggy and more dyspneic. According to nursing he has not been getting out of bed and not using his IS for past few days. Objective Exam Vital Signs Date Time Temp Pulse Resp B/P (MAP) Pulse Ox O2 Delivery O2 Flow Rate FiO2 11/14/20 11:00 35.4 107 24 138/96 (110) 95 Nasal Cannula 1.00 11/14/20 09:00 Nasal Cannula 1.00 11/14/20 07:55 35.3 105 24 151/105 (120) 93 Nasal Cannula 1.00 11/14/20 07:00 102 11/14/20 03:38 36.5 102 20 149/96 (113) 95 Nasal Cannula 1.00 11/14/20 01:34 36.1 107 20 153/94 90 11/14/20 01:34 36.1 107 20 153/94 (113) 90 Room Air 11/14/20 01:00 105 11/14/20 00:09 105 20 153/88 (109) 90 Room Air 11/13/20 23:15 36.3 100 20 146/93 90 Room Air 11/13/20 23:01 36.2 101 20 153/94 (113) 90 Room Air 11/13/20 22:54 36.2 101 20 153/94 90 Room Air 11/13/20 22:06 36.5 98 20 146/92 91 Room Air 11/13/20 21:51 92 20 164/103 (123) 92 Room Air 11/13/20 20:41 95 164/96 (118) 92 Room Air 11/13/20 20:20 Room Air 11/13/20 19:40 36.1 96 18 150/97 (114) 93 Room Air 11/13/20 19:07 36.6 105 20 164/100 93 Room Air 11/13/20 19:00 93 11/13/20 18:53 36.3 93 20 153/96 92 Room Air 11/13/20 18:40 36.1 96 18 143/98 (113) 93 Room Air 11/13/20 17:27 36.7 101 18 132/90 (104) 93 Room Air 11/13/20 16:01 36.5 106 20 147/93 (111) 94 Room Air 11/13/20 15:29 36.6 103 20 144/94 (111) 93 Room Air 11/13/20 15:03 36.5 108 20 146/98 (114) 93 Room Air 11/13/20 14:21 36.7 106 20 134/89 (104) 92 Room Air 11/13/20 13:09 106 I & O 11/14/20 07:00 Intake Total 2980 ml Output Total 1925 ml Balance 1055 ml Capillary Refill : Less Than 3 Seconds General Appearance: Moderate Distress Respiratory: Decreased Breath Sounds, Respiratory Distress Cardiovascular: Regular Rate, Rhythm, Systolic Murmur Extremity: Non Tender, No Calf Tenderness, No Pedal Edema Skin: Other (groggy) Results Lab Laboratory Tests 11/13/20 15:45: Glucometer 226H 11/13/20 20:06: Glucometer 133H 11/14/20 05:15: White Blood Count 15.1H, Red Blood Count 3.56L, Hemoglobin 10.7L, Hematocrit 33L , Mean Corpuscular Volume 91, Mean Corpuscular Hemoglobin 30, Mean Corpuscular Hemoglobin Concent 33, Red Cell Distribution Width 16.0H, Platelet Count 17*L, Mean Platelet Volume , Percent Immature Platelet Fraction 10.1H, Sodium Level 135, Potassium Level 3.5L, Chloride Level 103, Carbon Dioxide Level 22, Anion Gap 10, Blood Urea Nitrogen 18, Creatinine 0.70, Estimat Glomerular Filtration Rate 112, BUN/Creatinine Ratio 26, Glucose Level 128H, Calcium Level 8.4L 11/14/20 10:58: Glucometer 232H 11/14/20 12:02: Lab Scanned Report Transfusion Reaction Form Assessment/Plan Assessment/Plan Assess & Plan/Chief Complaint 1. Acute Thrombocytopenia/ITP--repeat platelet transfusion today, on prednisone, IVIG started per oncology 2. Right Sided PE--Xarelto on hold due to port placement tomorrow 3. Right Sided Pleural Effusion/Atelectesis--IS started but patient has not been using--once again discussed importance of sitting up and using this to aerate bases, will check stat CXR now, give IV lasix with potassium last night and started on oral lasix this morning 4. Acute Renal Insufficiency--improved with hydration 5. Hyperglycemia--patient has known impaired fasting glucose--on accuchecks with SSI 6. Hypertension--lisinopril restarted and metoprolol added 7. Lung Adenocarcinoma with diffuse mets to lymph nodes--Dr. Funes planning on starting treatment next week 8. Left Supraclavicular lymphadenopathy with left neck pain/neuropathy--r equiring fentanyl for pain, on baclofen and gabapentin but will decrease gabapentin dose due to grogginess Clinical Quality Measures Admission Status Admission Dx 1. Acute Thrombocytopenia--admit and transfuse platelets and repeat CBC in Am, Dr. Funes to consult, Change eliquis to xarelto in case this is contributing, consider steroids if could be ITP related 2. Generalized Lymphadenopathy--had axillary lymph node biopsy earlier in the week--so far no obvious lymphoma but other staining and evaluation are pending by pathology, may need another surgical biopsy but will wait on pathology finishing workup on current biopsy first due to thrombocytopenia and DVT/PE 3. Right LE DVT and Right sided PE--needs to stay on blood thinner but will change eliquis to Xarelto in case this is contributing to thrombocytopenia 4. Dyspnea on Exertion/Right sided pleural effusion--start IS, albuterol in SVN prn 5. Acute Renal Insufficiency/Hyponatremia--hydrate and repeat levels in AM MICHELL DAS DO Nov 14, 2020 13:01
--- NOTE | 2020-11-14 14:12 | Diagnostic Imaging Report ---
Indication: Hypoxia. COMPARISON: 11/12/2020 FINDINGS: Single frontal radiograph view the chest was obtained and demonstrates mild bibasilar effusions, right greater than left. Lungs are otherwise clear. There is no pneumothorax. Cardiac silhouette and pulmonary vasculature are within normal limits. Osseous structures show no acute adverse interval change. IMPRESSION:. Stable mild bibasilar effusions, right greater than left. Dictated by: Dictated on workstation # [id number]
[2020-11-14] MEDS ORDERED: NS IV 500 ML 500 ML ONE (15:56)
--- NOTE | 2020-11-14 17:32 | Progress Note ---
Standard Progress Note Progress Notes/Assess & Plan Date Seen by a Provider: Nov 14, 2020 Time Seen by a Provider: 17:28 Progress/Assessment & Plan 70-year-old male with rapid onset lymphadenopathy and thrombocytopenia admitted with shortness of breath. Core needle biopsy of left axillary lymph node consistent with a carcinoma with additional IHC stains reported verbally as consistent with adenocarcinoma of lung primary. PET CT scan done previously showing significant lymphadenopathy in lower cervical, bilateral supraclavicular, axillary, mediastinal and para-aortic regions with a small PET avid left upper lobe lung lesion which is probably the primary. Thrombocytopen ia clinically consistent with ITP as there is no significant bone marrow activity on the PET CT scan and rest of blood counts normal. Patient was started on prednisone 70 mg daily with no significant benefit yet. On proton pump inhibitor for gastric protection. 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 Status post IVIG 70 g daily x2 with platelet count still low. Patient started on vitamin B12 1000 mcg IM and folic acid 1 mg daily in preparation for chemotherapy with Alimta, carboplatin and Keytruda regimen next week scheduled for Thursday. Port placed for administration of chemotherapy planned for tomorrow with platelet support. I have discussed the diagnosis and treatment recommendations with the patient and answered his q uestions. I will be out of town until early next week. ROMAINE BARNES Nov 14, 2020 17:32
--- NOTE | 2020-11-14 19:56 | Tele-ICU Consult ---
History of Present Illness History of Present Illness Date Seen by Provider: Nov 14, 2020 Time Seen by Provider: 07:16 Date of Admission This virtual visit was conducted using real time audio/video. Thank you for asking us to see this patient for respiratory insufficiency and distress, NSCLC and low platelets likely due to ITP. Developed tachycardia on floor during plt transfusion and transferred to ICU. Plts resumed. HPC: Recent events: Transferred to ICU. To get Port for chemo. PMH: Recent DVT/R PE, Htn, OA, recent NSCLC dx. SH: smoking history: Y FH: Non-contributory. ROS: limited by patient's clinical condition, but as in HPI PE: VSS. Resting comfortably on camera. O2 sat 94% on 1 LPM NC. HEENT: No obvious masses, adenopathy or JVD. Chest: coarse BS in upper marquez CV: RRR S1 S2 No murmur or added sounds. Abd: Non-tender. Bowel sounds Y. : Unremarkable. Coelho N. TECHNICAL MARKETING CONSULTANT/psychiatric: Alert and oriented, grossly intact. No obvious focal findings. Extremities: No edema. Capillary refill < 3 seconds. Skin: unremarkable. Results: Elevated BG 186 WCC 15.1. Decreased plts 17 K. CXR w B small effusions, hyperinflated. A/P: Respiratory insufficiency/distress: cont O2 and Albuterol Available chart/ vitals / labs /images reviewed. Video assessment done using teleICU camera, rest of exam as per RN. Monitor for increasing oxygenation needs and/or need for intubation/NIV. Critical Care: critically ill patient. Cont Prednisone, PPI. Emilio hood. Discussed with ROCIO Umanzor. Asked RN to reach out to eICU if any questions or concerns later. Time spent with patient/coordination of care with other health professionals (mins):39 Allergies and Home Medications Allergies Coded Allergies: No Known Drug Allergies (Unverified , 03/23/18) Home Medications Apixaban 5 Mg Tablet, 5 MG PO BID, (Reported) Hydrocodone/Acetaminophen 1 Each Tablet, 1 EA PO Q6H PRN for PAIN-MODERATE (5- 7), (Reported) Lisinopril 40 Mg Tablet, 40 MG PO DAILY, (Reported) Multivit-Min/Folic/Vit K/Lycop 1 Each Tablet, 1 EACH PO DAILY, (Reported) Past Medical/Social/Family Hx Patient Social History Employed/Student: retired Tobacco Use?: No Smoking Status: Former Smoker Smokeless Tobacco Frequency: Never a User Use of E-Cig and/or Vaping dev: No Substance use?: Yes Substance type: Marijuana Substance frequency: Rarely Alcohol Use?: Yes Alcohol type: Beer Alcohol Frequency: Daily Pt stated abuse/neglect: No Immunizations Up To Date Influenza Vaccine Up-to-Date: No; Not Current First/Initial COVID19 Vaccinat: may Second COVID19 Vaccination Reji: may Tetanus Booster (TDap): Unknown TB Skin Test: None Date of Pneumonia Vaccine: Feb 11, 2018 Current Status Advance Directives: No Communicates: Does Not Communicate Primary Language: Sri Lankan Preferred Spoken Language: Sri [place]ankan Is interpretation needed?: No Implanted or Applied Medical D: None Review of Systems Constitutional: see HPI EENTM: see HPI Respiratory: see HPI Gastrointestinal: see HPI Genitourinary: see HPI Musculoskeletal: see HPI Skin: see HPI Psychiatric/Neurological: See HPI All Other Systems Reviewed Negative Unless Noted: Yes Sepsis Event Evaluation Height, Weight, BMI Height: 5'8.00" Weight: 160lbs. 0.0oz. 72.710007gt; 22.44 BMI Method: Exam Exam Patient acknowledged, consented, and participated in this virtual visit which was conducted using real time audio/video Vital Signs Date Time Temp Pulse Resp B/P (MAP) Pulse Ox O2 Delivery O2 Flow Rate FiO2 11/14/20 18:00 Nasal Cannula 1.00 11/14/20 17:07 35.9 150 24 143/87 (105) 94 Nasal Cannula 1.00 11/14/20 17:00 35.9 130 24 143/87 94 Nasal Cannula 1.00 11/14/20 16:30 36.1 96 24 154/102 96 Nasal Cannula 1.00 11/14/20 16:15 Nasal Cannula 11/14/20 16:10 35.8 96 24 158/108 96 Nasal Cannula 1.00 11/14/20 15:30 35.7 96 20 143/96 (112) 96 Nasal Cannula 1.00 11/14/20 13:39 35.4 107 24 138/96 95 Nasal Cannula 11/14/20 13:00 93 11/14/20 11:00 35.4 107 24 138/96 (110) 95 Nasal Cannula 1.00 11/14/20 09:00 Nasal Cannula 1.00 11/14/20 07:55 35.3 105 24 151/105 (120) 93 Nasal Cannula 1.00 11/14/20 07:00 102 11/14/20 03:38 36.5 102 20 149/96 (113) 95 Nasal Cannula 1.00 11/14/20 01:34 36.1 107 20 153/94 90 11/14/20 01:34 36.1 107 20 153/94 (113) 90 Room Air 11/14/20 01:00 105 11/14/20 00:09 105 20 153/88 (109) 90 Room Air 11/13/20 23:15 36.3 100 20 146/93 90 Room Air 11/13/20 23:01 36.2 101 20 153/94 (113) 90 Room Air 11/13/20 22:54 36.2 101 20 153/94 90 Room Air 11/13/20 22:06 36.5 98 20 146/92 91 Room Air 11/13/20 21:51 92 20 164/103 (123) 92 Room Air 11/13/20 20:41 95 164/96 (118) 92 Room Air 11/13/20 20:20 Room Air I & O 11/14/20 07:00 Intake Total 2980 ml Output Total 1925 ml Balance 1055 ml Height & Weight Height: 5'8.00" Weight: 160lbs. 0.0oz. 72.851679md; 22.44 BMI Method: General Appearance: Moderate Distress HEENT: PERRL/EOMI Neck: Lymphadenopathy (L) (supraclavicular, cervical), Lymphadenopathy (R) (supraclavicular, cervical) Respiratory: Decreased Breath Sounds, Respiratory Distress Cardiovascular: Regular Rate, Rhythm, Systolic Murmur Capillary Refill: Less Than 3 Seconds Peripheral Pulses: 2+ Dorsalis Pedis (R), 2+ Left Dors-Pedis (L), 2+ Radial Pulses (R), 2+ Radial Pulses (L) Gastrointestinal: non tender, soft Extremity: Non Tender, No Calf Tenderness, No Pedal Edema Neurologic/Psychiatric: Alert, Oriented x3, Normal Mood/Affect Skin: Other (groggy) Lymphatic: Axilla Node Tender (L), Axilla Node Tender (R), Other (b/l cervical/supraclavicular node, left side matted supraclavicular) Results Lab Laboratory Tests 11/13/20 04:05 11/14/20 05:15 Assessment/Plan Assessment/Plan See free text. Critical Care: Critically Ill Patient ADRIAN BRAVO MD Nov 14, 2020 19:56
[2020-11-14] MEDS: NS IV 1000 ML 1,000 ML IV SCH (22:55)
[2020-11-15] VITALS (28 sets, daily range): BP systolic 102–199; BP diastolic 54–135
[2020-11-15 05:09] LABS: HEMATOCRIT 32 % (40-54); HEMOGLOBIN 10.6 g/dL (13.3-17.7); MEAN CORPUSCULAR HEMOGLOBIN 31 pg (25-34); MEAN CORPUSCULAR HGB CONC 33 g/dL (32-36); MEAN CORPUSCULAR VOLUME 93 fL (80-99); WHITE BLOOD COUNT 14.2 10^3/uL (4.3-11.0)
[2020-11-15 05:13] LABS: PLATELET COUNT 6 10^3/uL (130-400)
[2020-11-15] MEDS ORDERED: diphenhydrAMINE 50 MG/ML INJ (BENADRYL) IVP ONE (05:30)
[2020-11-15 05:40] LABS: POTASSIUM 3.5 MMOL/L (3.6-5.0)
[2020-11-15 05:41] LABS: CALCIUM 8.5 MG/DL (8.5-10.1)
[2020-11-15 05:45] LABS: CREATININE SERUM 0.76 MG/DL (0.60-1.30)
[2020-11-15] MEDS: SUCRALFATE 1 GM (CARAFATE) TAB PO SCH ×4 (05:49→20:36)
[2020-11-15] MEDS: inSUlin ASPART (NovoLOG) 1 UNIT/0.01 ML (CHARGE PER UNIT) SC SCH ×4 (06:33→20:28)
--- NOTE | 2020-11-15 07:01 | Progress Note - Surgery ---
ILSAJOHN 11/15/20 0700: Subjective Date Seen by a Provider: Nov 15, 2020 Time Seen by a Provider: 05:45 Subjective/Events-last exam Pt seems worse than yesterday and reports chest pain, LUQ abdominal pain, and SOB. Platelets at 6 and being transfused 1 unit of platelets, will have 1 more unit preop port placement that is planned for today. Denies any fever, chills, nausea, vomiting, or diarrhea. Objective Exam Vital Signs Date Time Temp Pulse Resp B/P (MAP) Pulse Ox O2 Delivery O2 Flow Rate FiO2 11/15/20 06:08 36.5 98 20 158/100 93 Nasal Cannula 3.00 11/15/20 06:00 96 19 161/91 (114) 95 Nasal Cannula 3.00 11/15/20 05:51 36.6 97 18 162/115 93 Nasal Cannula 3.00 11/15/20 05:00 98 20 162/115 (131) 95 Nasal Cannula 3.00 11/15/20 04:17 95 Nasal Cannula 3.00 11/15/20 04:00 99 27 145/104 (118) 93 Nasal Cannula 3.00 11/15/20 03:00 93 14 130/94 (106) 95 Nasal Cannula 3.00 11/15/20 02:01 36.7 Nasal Cannula 3.00 11/15/20 02:00 91 16 133/92 (106) 96 Nasal Cannula 2.00 11/15/20 01:00 89 14 140/94 (109) 89 Nasal Cannula 2.00 11/15/20 01:00 93 11/15/20 00:00 Nasal Cannula 3.00 11/15/20 00:00 87 16 159/111 (127) 91 Nasal Cannula 2.00 11/14/20 23:00 36.3 Nasal Cannula 2.00 11/14/20 23:00 93 23 145/103 (117) 93 Nasal Cannula 2.00 11/14/20 22:00 93 23 148/104 (119) 90 Nasal Cannula 2.00 11/14/20 21:00 101 25 169/113 (131) 88 Nasal Cannula 2.00 11/14/20 20:17 Nasal Cannula 2.00 11/14/20 20:00 108 23 166/111 (129) Nasal Cannula 2.00 11/14/20 19:59 36.5 107 14 151/112 92 Nasal Cannula 2.00 11/14/20 19:00 36.4 Nasal Cannula 2.00 11/14/20 19:00 108 11/14/20 19:00 109 20 161/98 (119) Nasal Cannula 2.00 11/14/20 18:00 Nasal Cannula 1.00 11/14/20 17:07 35.9 150 24 143/87 (105) 94 Nasal Cannula 1.00 11/14/20 17:00 35.9 130 24 143/87 94 Nasal Cannula 1.00 11/14/20 16:30 36.1 96 24 154/102 96 Nasal Cannula 1.00 11/14/20 16:15 Nasal Cannula 11/14/20 16:10 35.8 96 24 158/108 96 Nasal Cannula 1.00 11/14/20 15:30 35.7 96 20 143/96 (112) 96 Nasal Cannula 1.00 11/14/20 13:39 35.4 107 24 138/96 95 Nasal Cannula 11/14/20 13:00 93 11/14/20 11:00 35.4 107 24 138/96 (110) 95 Nasal Cannula 1.00 11/14/20 09:00 Nasal Cannula 1.00 11/14/20 07:55 35.3 105 24 151/105 (120) 93 Nasal Cannula 1.00 11/14/20 07:00 102 I & O 11/15/20 06:59 Intake Total 1083 ml Output Total 700 ml Balance 383 ml Capillary Refill : Less Than 3 Seconds General Appearance: Anxious, Mild Distress HEENT: PERRL/EOMI Neck: Lymphadenopathy (L) (supraclavicular, cervical), Lymphadenopathy (R) (supraclavicular, cervical) Respiratory: Lungs Clear Cardiovascular: Regular Rate, Rhythm Peripheral Pulses: 2+ Dorsalis Pedis (R), 2+ Left Dors-Pedis (L), 2+ Radial Pulses (R), 2+ Radial Pulses (L) Gastrointestinal: soft, tenderness (LUQ) Extremity: Non Tender, No Calf Tenderness, No Pedal Edema Neurologic/Psychiatric: Alert, Oriented x3, Normal Mood/Affect Skin: Normal Color, Warm/Dry Lymphatic: Axilla Node Tender (L), Axilla Node Tender (R) Results Lab Laboratory Tests 11/14/20 10:58: Glucometer 232H 11/14/20 12:02: Lab Scanned Report Transfusion Reaction Form 11/14/20 15:45: Glucometer 186H 11/14/20 21:24: Glucometer 129H 11/15/20 04:55: White Blood Count 14.2H, Red Blood Count 3.46L, Hemoglobin 10.6L, Hematocrit 32L , Mean Corpuscular Volume 93, Mean Corpuscular Hemoglobin 31, Mean Corpuscular Hemoglobin Concent 33, Red Cell Distribution Width 17.2H, Platelet Count 6*L, Mean Platelet Volume , Percent Immature Platelet Fraction 19.3H, Sodium Level 138, Potassium Level 3.5L, Chloride Level 102, Carbon Dioxide Level 23, Anion Gap 13, Blood Urea Nitrogen 21H, Creatinine 0.76, Estimat Glomerular Filtration Rate 102, BUN/Creatinine Ratio 28, Glucose Level 150H, Calcium Level 8.5 Assessment/Plan Assessment/Plan Assessment/Plan Boipsy from left axillary node reported as Adenocarcinoma consistent of lung primary b/l cervical, supraclavicular and axillary lymphadenopathy s/p L axillary lymph node biopsy Dyspnea, with recent history of pe and dvt right lower extremity Thrombocytopenia RONDA Long-term anticoagulation Platelets at 6 today. Xarelto Held Port placement today, currently transfusing 1 unit platelet now and 1 more preop, one unit of platelets ready for post procedure MARIAM POND DO 11/15/20 1655: Subjective Subjective/Events-last exam Platelets down. Receiving platelets today. Having increasing chest pain/abdom inal discomfort. Port planned for today. NPO Objective Exam General Appearance: No Apparent Distress, Anxious HEENT: PERRL/EOMI Neck: Lymphadenopathy (L) (supraclavicular, cervical), Lymphadenopathy (R) (supraclavicular, cervical) Respiratory: Chest Non Tender, No Accessory Muscle Use, No Respiratory Distress Cardiovascular: Regular Rate, Rhythm, No JVD Gastrointestinal: soft, tenderness (LUQ) Extremity: Non Tender, No Calf Tenderness Neurologic/Psychiatric: Alert, Oriented x3 Skin: Normal Color, Warm/Dry Lymphatic: Axilla Node Tender (L), Axilla Node Tender (R) Assessment/Plan Assessment/Plan Assessment/Plan Biopsy from left axillary node reported as Adenocarcinoma consistent of lung primary b/l cervical, supraclavicular and axillary lymphadenopathy s/p L axillary lymph node biopsy Dyspnea, with recent history of pe and dvt right lower extremity Thrombocytopenia RONDA Long-term anticoagulation Platelets at 6 today. Xarelto Held Port placement today, currently transfusing 1 unit platelet now and 1 more preop, one unit of platelets ready for post procedure if needed. Patient understands higher risk of bleeding. Agrees to proceed. Supervisory-Addendum Brief Verification & Attestation Participated in pt care: history, MDM, physical Personally performed: exam, history, MDM, supervision of care Care discussed with: Medical Student Procedures: n/a Results interpretation: Verified all documentation Verification and Attestation of Medical Student E/M Service A medical student performed and documented this service in my presence. I reviewed and verified all information documented by the medical student and made modifications to such information, when appropriate. I personally performed the physical exam and medical decision making. Mariam Pond, Nov 15, 2020,16:55 JOHN ROSENBAUM Nov 15, 2020 07:00 MARIAM POND DO Nov 15, 2020 16:55
[2020-11-15] MEDS: fentaNYL INJ 100 MCG/2 ML AMP IVP PRN ×5 (08:12→21:58)
[2020-11-15] MEDS: lisINopril 40 MG (PRINIVIL) TABLET PO SCH (08:12)
[2020-11-15] MEDS ORDERED: LACTATED RINGERS 1,000 ML IV PRN ×2 (08:30→10:30)
[2020-11-15] MEDS: FOLIC ACID 1 MG TAB PO SCH (10:04)
[2020-11-15] MEDS: PANTOPRAZOLE 40 MG (PROTONIX) TAB PO SCH (10:04)
[2020-11-15] MEDS: predniSONE 20 MG TAB PO SCH ×2 (10:04→10:05)
[2020-11-15] MEDS: FUROSEMIDE 40 MG (LASIX) TAB PO SCH (10:05)
[2020-11-15] MEDS: BACLOFEN 10 MG (LIORESAL) TAB PO SCH ×3 (10:05→20:36)
[2020-11-15] MEDS: KCL 20 MEQ TAB (K-DUR) PO SCH ×2 (10:05→16:22)
[2020-11-15] MEDS: HYDROcodone/APAP 5 MG/325 MG (LORTAB) TAB PO PRN (10:05)
[2020-11-15] MEDS ORDERED: LORazepam INJ 2 MG/ML (ATIVAN) VIAL IVP PRN (10:30)
--- NOTE | 2020-11-15 10:49 | Diagnostic Imaging Report ---
INDICATION: Hypoxia. Compared to 11/14/2020. FINDINGS: The heart size is stable. There is some increased bilateral predominantly interstitial opacity in the lungs which may be edema or infectious. A small pleural effusion is not grossly changed, however, basilar atelectasis has increased. Abnormal mediastinal contour unchanged. IMPRESSION: Increased interstitial pulmonary opacities, edema versus pneumonia. Similar small volume pleural fluid and unchanged abnormal mediastinal contour. Dictated by: Dictated on workstation # [id number]
[2020-11-15 11:10] LABS: CALCIUM 8.5 MG/DL (8.5-10.1); CREATININE SERUM 0.82 MG/DL (0.60-1.30); MAGNESIUM 1.9 MG/DL (1.6-2.4); POTASSIUM 3.6 MMOL/L (3.6-5.0)
--- NOTE | 2020-11-15 12:29 | Tele-ICU Progress Note ---
Subjective Date Seen by a Provider: Nov 15, 2020 Time Seen by a Provider: 10:13 Sepsis Event Evaluation Height, Weight, BMI Height: 5'8.00" Weight: 160lbs. 0.0oz. 72.839074qa; 22.44 BMI Method: Exam Exam Patient acknowledged, consented, and participated in this virtual visit which was conducted using real time audio/video Vital Signs Date Time Temp Pulse Resp B/P (MAP) Pulse Ox O2 Delivery O2 Flow Rate FiO2 11/15/20 10:33 90 22 100 40.00 11/15/20 10:00 100 36 132/61 (84) 94 Nasal Cannula 3.00 11/15/20 09:00 101 27 161/119 (133) 91 Nasal Cannula 3.00 11/15/20 08:00 109 26 199/135 (156) 89 Nasal Cannula 3.00 11/15/20 07:00 96 21 146/99 (115) 94 Nasal Cannula 3.00 11/15/20 06:43 92 11/15/20 06:08 36.5 98 20 158/100 93 Nasal Cannula 3.00 11/15/20 06:00 96 19 161/91 (114) 95 Nasal Cannula 3.00 11/15/20 05:51 36.6 97 18 162/115 93 Nasal Cannula 3.00 11/15/20 05:00 98 20 162/115 (131) 95 Nasal Cannula 3.00 11/15/20 04:17 95 Nasal Cannula 3.00 11/15/20 04:00 99 27 145/104 (118) 93 Nasal Cannula 3.00 11/15/20 03:00 93 14 130/94 (106) 95 Nasal Cannula 3.00 11/15/20 02:01 36.7 Nasal Cannula 3.00 11/15/20 02:00 91 16 133/92 (106) 96 Nasal Cannula 2.00 11/15/20 01:00 89 14 140/94 (109) 89 Nasal Cannula 2.00 11/15/20 01:00 93 11/15/20 00:00 Nasal Cannula 3.00 11/15/20 00:00 87 16 159/111 (127) 91 Nasal Cannula 2.00 11/14/20 23:00 36.3 Nasal Cannula 2.00 11/14/20 23:00 93 23 145/103 (117) 93 Nasal Cannula 2.00 11/14/20 22:00 93 23 148/104 (119) 90 Nasal Cannula 2.00 11/14/20 21:00 101 25 169/113 (131) 88 Nasal Cannula 2.00 11/14/20 20:17 Nasal Cannula 2.00 11/14/20 20:00 108 23 166/111 (129) Nasal Cannula 2.00 11/14/20 19:59 36.5 107 14 151/112 92 Nasal Cannula 2.00 11/14/20 19:00 36.4 Nasal Cannula 2.00 11/14/20 19:00 108 11/14/20 19:00 109 20 161/98 (119) Nasal Cannula 2.00 11/14/20 18:00 Nasal Cannula 1.00 11/14/20 17:07 35.9 150 24 143/87 (105) 94 Nasal Cannula 1.00 11/14/20 17:00 35.9 130 24 143/87 94 Nasal Cannula 1.00 11/14/20 16:30 36.1 96 24 154/102 96 Nasal Cannula 1.00 11/14/20 16:15 Nasal Cannula 11/14/20 16:10 35.8 96 24 158/108 96 Nasal Cannula 1.00 11/14/20 15:30 35.7 96 20 143/96 (112) 96 Nasal Cannula 1.00 11/14/20 13:39 35.4 107 24 138/96 95 Nasal Cannula 11/14/20 13:00 93 I & O 11/15/20 07:00 Intake Total 1083 ml Output Total 700 ml Balance 383 ml Height & Weight Height: 5'8.00" Weight: 160lbs. 0.0oz. 72.344969yb; 22.44 BMI Method: General Appearance: Anxious, Mild Distress HEENT: PERRL/EOMI Neck: Lymphadenopathy (L) (supraclavicular, cervical), Lymphadenopathy (R) (supraclavicular, cervical) Respiratory: Lungs Clear Cardiovascular: Regular Rate, Rhythm Capillary Refill: Less Than 3 Seconds Peripheral Pulses: 2+ Dorsalis Pedis (R), 2+ Left Dors-Pedis (L), 2+ Radial Pulses (R), 2+ Radial Pulses (L) Gastrointestinal: soft, tenderness (LUQ) Extremity: Non Tender, No Calf Tenderness, No Pedal Edema Neurologic/Psychiatric: Alert, Oriented x3, Normal Mood/Affect Skin: Normal Color, Warm/Dry Lymphatic: Axilla Node Tender (L), Axilla Node Tender (R) Results Lab Laboratory Tests 11/14/20 05:15 11/15/20 04:55 11/15/20 10:36 Assessment/Plan Assessment/Plan (Tele-ICU Physician , Progress Note ) Available chart/ vitals / labs / Images reviewed Video assessment done using teleICU camera, rest of exam as per RN Discussed with RN , EXAM PER RN Events overnight : Afebrile I/O = nrg Drips: Pressors: , hemodynamically stable Consultants: onc / heme Hospital course: 11/14- tachycardia on floor during plt transfusion and transferred to ICU. 11/15 - hypoxia , dyspnea - BIPAP A/P Acute resp failure - presumed VO - check CXR - Bipap for WOB - check troponin Thrombocytopenia clinically consistent with ITP - as per hem/onc - prednisone 70 mg daily - Status post IVIG 70 g daily x2 - plt transfusions as needed H/o Right LE DVT and PE - OFF chronic anticoagulation now NSCLC ( Adenocarcinoma) ( LYNN suspected ) by bx of LN - plans for PORT 11/15 ? - RN to check with IR and hem/onc - plans for chemo next week Anxiety - xanax Lines : (Central Line Necessity Reviewed) Coelho: OG: Nutrition: Po Analgesia: Anxiety/ delirium - some VTE Prophylaxis: contraindicated Stress Ulcer Prophylaxis: PPI Glycemic Control: Plans in collaboration with bedside consultants and IM MDs. Discussed with RN to reach out if any questions or concerns A total of 35 minutes of critical care time was devoted to this patient today, required to treat and/or prevent further deterioration of critical care condition ( as above) . MATEO ISAAC MD Nov 15, 2020 12:29
[2020-11-15] MEDS ORDERED: LIDOCAINE/EPI 1%-1:200,000 (XYLOCAINE) 30 ML VIAL ONE (14:02)
[2020-11-15] MEDS ORDERED: HEParin (CENTRAL IV FLUSH) 500 UNIT/5 ML SYR ONE (14:02)
[2020-11-15] MEDS ORDERED: 0.9% SODIUM CHLORIDE PF INJ 20 ML VIAL ONE ×2 (14:04→14:17)
[2020-11-15] MEDS ORDERED: PROPOFOL INJECTION 50 ML IV ONE (14:36)
[2020-11-15] MEDS ORDERED: MIDAZOLAM 2 MG/2 ML (VERSED) VIAL ONE (14:36)
[2020-11-15] MEDS ORDERED: ceFAZolin INJECTION 1,000 MG ONE (14:54)
--- NOTE | 2020-11-15 15:42 | Progress Note-Post Operative ---
Post-Operative Progess Note Surgeon (s)/Carpenter'S Helper (s) Surgeon MARIAM WILKES DO Carpenter'S Helper: na Pre-Operative Diagnosis ADENOCARCINOMA LUNG Post-Operative Diagnosis SAME Procedure & Operative Findings Date of Procedure 11/15/20 Procedure Performed/Findings PROCEDURE: Right internal jugular port placement using ultrasound guidance. COMPLICATIONS: None. INDICATIONS: The patient is a 70 year old male with adenocarcinoma lung. Thrombocytopenia present and receiving platelets currently for procedure to decrease risk of bleeding. Patient understands the risks and benefits of port placement and wished to proceed with the procedure. Consent was signed on the chart. PROCEDURE: The patient was taken to the operating suite, was prepped and draped in the sterile fashion. A surgical pause was performed. Ultrasound was used to locate the internal jugular vein. Once located anesthetic was infiltrated above it. Using micro-access kit, the right internal vein was accessed. Dark nonpulsatile blood was withdrawn. The wire was inserted. Fluoroscopy assured proper placement. The needle was removed. The micro-access dilator was advanced over the wire and the wire was removed. The regular wire was inserted and fluoroscopy assured proper placement. The wire was then secured. Local anesthetic was used to anesthetize from the neck for tunneling down to the right chest and for pocket creation. A 15 blade scalpel was used to make an incision over the right chest. Cautery was used to dissect down to the pectoral fascia. A pocket was created with blunt dissection. The dilator sheath was then advanced over the wire under fluoroscopy and the dilator and wire were removed. The Groshong catheter was inserted through the sheath and the sheath was then removed. The Groshong wire was removed. The catheter was then tunneled to the right chest pocket. Fluoroscopy was used to cut to length and this was then attached to the port which was then placed within the pocket. The port was then accessed without difficulty. It was then flushed with saline. The subcutaneous tissues were then reapproximated using 3-0 Vicryl. The areas were then washed and dried. Skin Affix was placed over incision. The insertion point of the neck Skin Affix was placed over the incision. Port was left accessed for use. Sterile bandage applied to right chest. The patient tolerated the procedure well without complication and was taken to recovery room in stable condition. Chest x-ray is pending. Anesthesia Type mac c local Estimated Blood Loss Estimated blood loss (mL): minimal Specimens/Packing Specimens Removed na MARIAM WILKES DO Nov 15, 2020 15:42
[2020-11-15] MEDS ORDERED: fentaNYL INJ 100 MCG/2 ML AMP IVP ONE (15:45)
[2020-11-15] MEDS ORDERED: ONDANSETRON 4 MG/2 ML (SDV) Z0FRAN IVP PRN (15:45)
--- NOTE | 2020-11-15 15:48 | Diagnostic Imaging Report ---
INDICATION: History of hypoxia. History of lymphadenopathy. COMPARISON: None. TOTAL FLUOROSCOPY TIME: 18 seconds. TOTAL NUMBER OF FLUOROSCOPIC IMAGES OBTAINED: 1. FINDINGS: Single intraoperative image intensifier view of the upper chest was obtained during Port-A-Cath placement. Image provided shows right internal jugular venous approach with central tip terminating over the upper SVC. Evaluation for pneumothorax is suboptimal given fluoroscopic modality. Please note, interpreting radiologist was not present during the procedure. IMPRESSION: 1. Fluoroscopic guidance provided during Port-A-Cath placement. Dictated by: Dictated on workstation # [id number]
--- NOTE | 2020-11-15 16:03 | Diagnostic Imaging Report ---
INDICATION: Port placement. EXAMINATION: Portable erect AP chest at 3:52 p.m. FINDINGS: In the interval since the prior exam performed earlier today at 10:34 a.m., a central venous catheter has been inserted on the right. The tip of the catheter overlies the distal superior vena cava and seems to be in good position. There is no sign of a pneumothorax on the right. The overall appearance of the chest, itself, is otherwise stable. IMPRESSION: 1. There has been interval insertion of a central venous catheter on the right without apparent complication. 2. The overall appearance of the chest is otherwise stable. Dictated by: Dictated on workstation # [id number]
[2020-11-15] MEDS: ALPRAZolam 0.25 MG (XANAX) TAB PO PRN (16:22)
[2020-11-15] MEDS ORDERED: FUROSEMIDE 40 MG/4 ML INJ (LASIX) ONE (16:36)
--- NOTE | 2020-11-15 16:44 | Consultation-Cardiology ---
HPI-Cardiology Cardiology Consultation: Date of Consultation 11/15/2020 Date of Admission 11/08/2020 Attending Physician Tracie Keyes DO Admitting Physician Tracie Keyes DO Consulting Physician VINOD LOPEZ JR, MD HPI: Time Seen by a Provider: 16:40 Chief Complaint: Reason for consultation: Atrial fibrillationClark Moreno is a 70-year-old male with no previously known history of atrial fibrillation or other cardiac disease. He was admitted to the hospital due to recently diagnosed metastatic lung cancer accompanied by severe thrombocytopenia. He was receiving platelet transfusions as well as IV Ig under the direction of hematology. Then yesterday he developed atrial fibrillation with a rapid ventricular rate and was transferred to the intensive care unit. He was initially ordered for intravenous diltiazem but it appears this never needed to be started. He just returned from the operating room following a port placement in the right upper chest. When he returned to the intensive care unit, he was more short of breath and was placed on BiPAP and the nurses have had to increase his FiO2. He denies chest discomfort. It is somewhat difficult to obtain a history from the patient due to him being on BiPAP. He denies palpitations. He did develop some lower extremity edema this morning after receiving intravenous fluids and platelet transfusions. Certain portions of this document may have been dictated utilizing voice recognition technology. Inherent to this technology, typographical and grammatical errors may exist. As much as I am diligent to identify and correct these mistakes, some errors may remain in the document. Review of Systems-Cardiology Review of Systems Other comments Not obtainable due to the patient's respiratory status. All Other Systems Reviewed Negative Unless Noted: Yes HRC-Sgyigj-Aipgwu Hx Patient Social History Employed/Student: retired Smoking Status: Former Smoker Have you traveled recently?: No Alcohol Use?: Yes Substance type: Marijuana Pt feels they are or have been: No Immunizations Up To Date Date of Pneumonia Vaccine: Feb 11, 2018 Past Medical History PMH As described under Assessment. Family Medical History Family Medical History: Not obtainable due to the patient's respiratory status. Allergies and Home Medications Allergies Coded Allergies: No Known Drug Allergies (Unverified , 03/23/18) Patient Home Medication List Home Medication List Reviewed: Yes Apixaban (Eliquis) 5 Mg Tablet, 5 MG PO BID, (Reported) Entered as Reported by: CHAMP TORRE on 11/08/201411 Last Action: Held Hydrocodone/Acetaminophen (Hydrocodone-Acetamin 5-325 mg) 1 Each Tablet, 1 EA PO Q6H PRN for PAIN-MODERATE (5-7), (Reported) Entered as Reported by: CHAMP TORRE on 11/08/201411 Last Action: Held Lisinopril (Lisinopril) 40 Mg Tablet, 40 MG PO DAILY, (Reported) Entered as Reported by: CHMAP TORRE on 11/08/201411 Last Action: Continued Multivit-Min/Folic/Vit K/Lycop (Men's Multivitamin Tablet) 1 Each Tablet, 1 EACH PO DAILY, (Reported) Entered as Reported by: CHAMP TORRE on 11/08/201411 Last Action: Held Discontinued Medications Ibuprofen (Ibu-200) 200 Mg Tablet, 400 MG PO Q8H PRN for PAIN-MODERATE (5-7), (Reported) Discontinued Reason: No Longer Taking Entered as Reported by: CHEMA EISENBERG on 04/14/19 1721 Last Action: Discontinued Prednisone (Prednisone) 10 Mg Tab.ds.pk, 10 MG PO DAILY Discontinued Reason: No Longer Taking Prescribed by: ERI VARGAS on 04/16/19 1012 Last Action: Discontinued Exam Vital Signs Vital Signs Date Time Temp Pulse Resp B/P (MAP) Pulse Ox O2 Delivery O2 Flow Rate FiO2 11/15/20 14:23 35.8 88 18 161/111 98 Nasal Cannula 4.00 Physical Exam General: Alert. Moderate respiratory distress on BiPAP. He appears chronically ill. Eye: Extraocular movements are intact. Conjunctivae are clear. There are no xanthelasma. HENT: Normocephalic. Atraumatic. Carotid pulsations 2/2 without bruits. Neck: Jugular venous pressure does not appear elevated. No thyromegaly appreciated. Respiratory: Lungs have decreased breath sounds with coarse upper airway sounds from the BiPAP. Respirations are moderately labored on BiPAP. Breath sounds are equal. Symmetrical chest wall expansion. Cardiovascular: Normal rate. Irregular rhythm. No murmur. No gallop. Point of maximal impulse is not appear displaced. Good pulses equal in all extremities. 1+ bilateral pretibial edema. Gastrointestinal: Soft. Normal bowel sounds. Skin: Skin turgor is normal. There is no pallor. Musculoskeletal: No kyphosis or scoliosis appreciated. Neurologic: Alert and oriented to person, place, time. Cranial nerves 3-12 appear grossly intact. The patient has good motor tone strength in the upper and lower extremities bilaterally. Psychiatric: Cooperative. Appropriate mood & affect. Labs Laboratory Tests Test 11/14/20 21:24 11/15/20 04:55 11/15/20 10:13 11/15/20 10:36 Range/Units Glucometer 129 H 148 H 70-110 MG/DL White Blood Count 14.2 H 4.3-11.0 10^3/uL Red Blood Count 3.46 L 4.30-5.52 10^6/uL Hemoglobin 10.6 L 13.3-17.7 g/dL Hematocrit 32 L 40-54 % Mean Corpuscular Volume 93 80-99 fL Mean Corpuscular Hemoglobin 31 25-34 pg Mean Corpuscular Hemoglobin Concent 33 32-36 g/dL Red Cell Distribution Width 17.2 H 10.0-14.5 % Platelet Count 6 *L 130-400 10^3/uL Mean Platelet Volume 9.0-12.2 fL Percent Immature Platelet Fraction 19.3 H 0.0-7.6 % Sodium Level 138 138 135-145 MMOL/L Potassium Level 3.5 L 3.6 3.6-5.0 MMOL/L Chloride Level 102 102 98-107 MMOL/L Carbon Dioxide Level 23 22 21-32 MMOL/L Anion Gap 13 14 5-14 MMOL/L Blood Urea Nitrogen 21 H 23 H 7-18 MG/DL Creatinine 0.76 0.82 0.60-1.30 MG/DL Estimat Glomerular Filtration Rate 102 93 BUN/Creatinine Ratio 28 28 Glucose Level 150 H 163 H 70-105 MG/DL Calcium Level 8.5 8.5 8.5-10.1 MG/DL Magnesium Level 1.9 1.6-2.4 MG/DL Troponin I 0.186 H <0.028 NG/ML Test 11/15/20 12:15 11/15/20 12:26 Range/Units Lab Scanned Report Transfusion Reaction Form [id number] Glucometer 138 H 70-110 MG/DL Diagnosis/Problems Diagnosis/Problems (1) Paroxysmal atrial fibrillation Assessment & Plan: This is a new diagnosis for the patient. This may have been brought on by his multitude of acute, noncardiac issues. At one point earlier in the day I checked his telemetry and it appeared as though he could have been in a sinus rhythm. Right now I cannot tell if he is in sinus rhythm versus atrial fibrillation. His heart rate is presently controlled on no AV chidi medications. He is not presently a candidate for anticoagulation due to his profound thrombocytopenia. His echocardiogram did not show significant atrial dilatation with suggest the atrial fibrillation has not been ongoing prior to admission. For that matter, he had been in the hospital for several days and it was not until 11/14 that he was noted to have developed atrial fibrillation. It appears he received one dose of oral diltiazem last evening. I will start him on diltiazem CD 180 mg daily with another dose this evening. I will stop his metoprolol since this could be worsening his pulmonary status. I will also stop his amlodipine so that we may have more blood pressure to work with to increase the diltiazem if needed for the atrial fibrillation. (2) Acute on chronic respiratory failure with hypoxemia Assessment & Plan: He has been receiving IV fluids as well as platelet transfusions which give him some volume expansion. I will give him one dose of IV furosemide and I have ordered a follow-up stat portable chest x-ray. He will continue on BiPAP. His echocardiogram from earlier today did show a normal ejection fraction with no significant valvular heart disease so he should be able to handle a certain amount of volume expansion. (3) Pericardial effusion Assessment & Plan: He has a moderate sized predominantly anterior pericardial effusion. Given the metastatic lung cancer, this is concerning for possible malignant effusion. At some point, we might want to consider pericardiocentesis for diagnostic purposes. However, with the profound thrombocytopenia I would not consider that procedure until his thrombocytopenia is improved. I would also want to check with oncology to see if this would change their management. (4) Pulmonary hypertension Assessment & Plan: Most likely multifactorial. Continue oxygen as needed. (5) Thoracic aortic aneurysm without rupture Assessment & Plan: This was an incidental finding on his echocardiogram. This is in a mild range. This will likely never become of any clinical significance. (6) Primary hypertension Assessment & Plan: He has had some intermittently elevated blood pressures. He should continue on lisinopril. As above, I will stop the amlodipine and metoprolol for reasons outlined in #1. I will start him on long-acting diltiazem which should help with both hypertension and rate control of the atrial fibrillation without worsening his pulmonary status. (7) Thrombocytopenia Status: Acute Assessment & Plan: This is being managed by hematology. This condition makes invasive procedures and oral anticoagulation difficult. VINOD LOPEZ JR, MD Nov 15, 2020 16:44
[2020-11-15] MEDS ORDERED: FUROSEMIDE 40 MG/4 ML INJ (LASIX) IVP ONE (17:00)
--- NOTE | 2020-11-15 17:06 | Progress Note ---
Subjective Date Seen by a Provider: Nov 15, 2020 Time Seen by a Provider: 12:45 Subjective/Events-last exam Fwup thrombocytopenia, diffuse hypermetabolic lymphadenopathy, Right sided PE and Pleural Effusion with atelectesis, dyspnea on exertion. Transferred to ICU last night due to new onset atrial fibrillation with HR up to 170. Cardizem drip never had to be started. Back in NSR this morning. Going to surgery this afternoon for port placement. Objective Exam Vital Signs Date Time Temp Pulse Resp B/P (MAP) Pulse Ox O2 Delivery O2 Flow Rate FiO2 11/15/20 16:56 NIV Bilevel 40.00 11/15/20 16:15 36.4 20 137/69 (91) 96 OxyMask 4 11/15/20 16:15 OxyMask 4 11/15/20 16:10 20 137/69 (91) 96 OxyMask 4 11/15/20 16:00 18 134/76 (95) 96 OxyMask 4 11/15/20 15:50 22 138/54 (82) 94 OxyMask 5 11/15/20 15:50 OxyMask 5 11/15/20 15:40 36.5 24 119/70 (86) 92 OxyMask 8 11/15/20 15:39 36.5 24 119/70 (86) 92 OxyMask 8 11/15/20 15:39 OxyMask 8 11/15/20 14:23 35.8 88 18 161/111 98 Nasal Cannula 4.00 11/15/20 14:00 83 13 139/106 (117) 95 Nasal Cannula 3.00 11/15/20 13:00 86 20 153/116 (128) 97 Nasal Cannula 3.00 11/15/20 12:51 85 11/15/20 12:00 94 Nasal Cannula 4.00 11/15/20 12:00 88 20 125/108 (114) 100 Nasal Cannula 3.00 11/15/20 11:00 87 16 152/116 (128) 100 Nasal Cannula 3.00 11/15/20 10:33 90 22 100 40.00 11/15/20 10:00 100 36 132/61 (84) 94 Nasal Cannula 3.00 11/15/20 09:00 101 27 161/119 (133) 91 Nasal Cannula 3.00 11/15/20 08:00 109 26 199/135 (156) 89 Nasal Cannula 3.00 11/15/20 08:00 93 Nasal Cannula 3.00 11/15/20 07:00 96 21 146/99 (115) 94 Nasal Cannula 3.00 11/15/20 06:43 92 11/15/20 06:08 36.5 98 20 158/100 93 Nasal Cannula 3.00 11/15/20 06:00 96 19 161/91 (114) 95 Nasal Cannula 3.00 11/15/20 05:51 36.6 97 18 162/115 93 Nasal Cannula 3.00 11/15/20 05:00 98 20 162/115 (131) 95 Nasal Cannula 3.00 11/15/20 04:17 95 Nasal Cannula 3.00 11/15/20 04:00 99 27 145/104 (118) 93 Nasal Cannula 3.00 11/15/20 03:00 93 14 130/94 (106) 95 Nasal Cannula 3.00 11/15/20 02:01 36.7 Nasal Cannula 3.00 11/15/20 02:00 91 16 133/92 (106) 96 Nasal Cannula 2.00 11/15/20 01:00 89 14 140/94 (109) 89 Nasal Cannula 2.00 11/15/20 01:00 93 11/15/20 00:00 Nasal Cannula 3.00 11/15/20 00:00 87 16 159/111 (127) 91 Nasal Cannula 2.00 11/14/20 23:00 36.3 Nasal Cannula 2.00 11/14/20 23:00 93 23 145/103 (117) 93 Nasal Cannula 2.00 11/14/20 22:00 93 23 148/104 (119) 90 Nasal Cannula 2.00 11/14/20 21:00 101 25 169/113 (131) 88 Nasal Cannula 2.00 11/14/20 20:17 Nasal Cannula 2.00 11/14/20 20:00 108 23 166/111 (129) Nasal Cannula 2.00 11/14/20 19:59 36.5 107 14 151/112 92 Nasal Cannula 2.00 11/14/20 19:00 36.4 Nasal Cannula 2.00 11/14/20 19:00 108 11/14/20 19:00 109 20 161/98 (119) Nasal Cannula 2.00 11/14/20 18:00 Nasal Cannula 1.00 11/14/20 17:07 35.9 150 24 143/87 (105) 94 Nasal Cannula 1.00 I & O 11/15/20 07:00 Intake Total 1083 ml Output Total 700 ml Balance 383 ml Capillary Refill : Less Than 3 SecondsLess Than 3 Seconds General Appearance: Mild Distress Respiratory: Decreased Breath Sounds Cardiovascular: Regular Rate, Rhythm, Systolic Murmur, Gallop/S4 Gastrointestinal: normal bowel sounds, non tender, soft Extremity: Non Tender, No Calf Tenderness, No Pedal Edema Neurologic/Psychiatric: Alert Results Lab Laboratory Tests 11/14/20 21:24: Glucometer 129H 11/15/20 04:55: White Blood Count 14.2H, Red Blood Count 3.46L, Hemoglobin 10.6L, Hematocrit 32L , Mean Corpuscular Volume 93, Mean Corpuscular Hemoglobin 31, Mean Corpuscular Hemoglobin Concent 33, Red Cell Distribution Width 17.2H, Platelet Count 6*L, Mean Platelet Volume , Percent Immature Platelet Fraction 19.3H, Sodium Level 138, Potassium Level 3.5L, Chloride Level 102, Carbon Dioxide Level 23, Anion Gap 13, Blood Urea Nitrogen 21H, Creatinine 0.76, Estimat Glomerular Filtration Rate 102, BUN/Creatinine Ratio 28, Glucose Level 150H, Calcium Level 8.5 11/15/20 10:13: Glucometer 148H 11/15/20 10:36: Sodium Level 138, Potassium Level 3.6, Chloride Level 102, Carbon Dioxide Level 22, Anion Gap 14, Blood Urea Nitrogen 23H, Creatinine 0.82, Estimat Glomerular Filtration Rate 93, BUN/Creatinine Ratio 28, Glucose Level 163H, Calcium Level 8.5, Magnesium Level 1.9, Troponin I 0.186H 11/15/20 12:15: Lab Scanned Report Transfusion Reaction Form 11/15/20 12:26: Glucometer 138H 11/15/20 16:29: Glucometer 161H Assessment/Plan Assessment/Plan Assess & Plan/Chief Complaint 1. Acute Thrombocytopenia/ITP--repeat platelet transfusion today with surgery, on prednisone, IVIG started per oncology 2. Right Sided PE--Xarelto on hold due to port placement today 3. Right Sided Pleural Effusion/Atelectesis--IS started but patient has not b een using--once again discussed importance of sitting up and using this to aerate bases, on oxygen and daily lasix 4. Acute Renal Insufficiency--improved with hydration 5. Hyperglycemia--patient has known impaired fasting glucose--on accuchecks with SSI 6. Hypertension--on lisinopril and metoprolol but will likely change metoprolol to cardizem for BP and rate 7. Lung Adenocarcinoma with diffuse mets to lymph nodes--Dr. Funes planning on starting treatment next week, port placement today by Dr. Pond 8. Left Supraclavicular lymphadenopathy with left neck pain/neuropathy--requiring fentanyl for pain, on baclofen and gabapentin 9. New onset atrial fibrillation with RVR--back to NSR, cardiology consulted 10. Pericardial effusion--unable to consider pericardiocentesis at this time due to other comorbidities including ITP Very complex medical patient and management and prognosis very guarded Clinical Quality Measures Admission Status Admission Dx 1. Acute Thrombocytopenia--admit and transfuse platelets and repeat CBC in Am, Dr. Funes to consult, Change eliquis to xarelto in case this is contributing, consider steroids if could be ITP related 2. Generalized Lymphadenopathy--had axillary lymph node biopsy earlier in the week--so far no obvious lymphoma but other staining and evaluation are pending by pathology, may need another surgical biopsy but will wait on pathology finishing workup on current biopsy first due to thrombocytopenia and DVT/PE 3. Right LE DVT and Right sided PE--needs to stay on blood thinner but will change eliquis to Xarelto in case this is contributing to thrombocytopenia 4. Dyspnea on Exertion/Right sided pleural effusion--start IS, albuterol in SVN prn 5. Acute Renal Insufficiency/Hyponatremia--hydrate and repeat levels in AM MICHELL DAS DO Nov 15, 2020 17:06
[2020-11-15] MEDS: GABAPENTIN 300 MG (NEURONTIN) CAP PO SCH (20:36)
[2020-11-16] VITALS (23 sets, daily range): BP systolic 77–142; BP diastolic 44–116
[2020-11-16] MEDS: ALPRAZolam 0.25 MG (XANAX) TAB PO PRN ×2 (01:34→20:03)
[2020-11-16] MEDS: fentaNYL INJ 100 MCG/2 ML AMP IVP PRN ×4 (03:41→23:20)
[2020-11-16] MEDS: NS IV 1000 ML 1,000 ML IV SCH (03:41)
[2020-11-16 03:56] LABS: BASOPHILS % (AUTO) 0 % (0-10); EOSINOPHILS % (AUTO) 0 % (0-10); HEMATOCRIT 28 % (40-54); HEMOGLOBIN 9.5 g/dL (13.3-17.7); LYMPHOCYTES # (AUTO) 0.5 10^3/uL (1.0-4.0); LYMPHOCYTES % (AUTO) 4 % (12-44); MEAN CORPUSCULAR HEMOGLOBIN 31 pg (25-34); MEAN CORPUSCULAR HGB CONC 34 g/dL (32-36); MEAN CORPUSCULAR VOLUME 93 fL (80-99); MONOCYTES % (AUTO) 8 % (0-12); NEUTROPHILS # (AUTO) 10.5 10^3/uL (1.8-7.8); NEUTROPHILS % (AUTO) 86 % (42-75); WHITE BLOOD COUNT 12.3 10^3/uL (4.3-11.0)
[2020-11-16 03:58] LABS: PLATELET COUNT 10 10^3/uL (130-400)
[2020-11-16 04:00] LABS: POTASSIUM 3.5 MMOL/L (3.6-5.0)
[2020-11-16 04:01] LABS: CALCIUM 8.7 MG/DL (8.5-10.1)
[2020-11-16 04:05] LABS: PHOSPHORUS 3.4 MG/DL (2.3-4.7)
[2020-11-16 04:06] LABS: CREATININE SERUM 0.78 MG/DL (0.60-1.30)
[2020-11-16 04:08] LABS: MAGNESIUM 1.9 MG/DL (1.6-2.4)
[2020-11-16] MEDS: POTASSIUM CL 10MEQ/50ML IVPB 50 ML IV SCH (04:42)
[2020-11-16] MEDS: MAGNESIUM 1 GM/100 ML IVPB 100 ML IV SCH (04:42)
[2020-11-16] MEDS: KCL 20 MEQ TAB (K-DUR) PO SCH ×3 (04:43→18:14)
[2020-11-16] MEDS: inSUlin ASPART (NovoLOG) 1 UNIT/0.01 ML (CHARGE PER UNIT) SC SCH ×4 (06:38→22:06)
[2020-11-16] MEDS: SUCRALFATE 1 GM (CARAFATE) TAB PO SCH ×4 (06:41→20:03)
[2020-11-16] MEDS: predniSONE 20 MG TAB PO SCH ×2 (06:41)
--- NOTE | 2020-11-16 07:10 | Anesthesia-General Post-Op ---
MAC Patient Condition Mental Status/LOC: Same as Preop Cardiovascular: Satisfactory Nausea/Vomiting: Absent Respiratory: Satisfactory Pain: Controlled Complications: Absent Post Op Complications Complications None Follow Up Care/Instructions Patient Instructions None needed. Anesthesiology Discharge Order Discharge Order Patient is doing well, no complaints, stable vital signs, no apparent adverse anesthesia problems. No complications reported per nursing. VANESSA RIOS CRNA Nov 16, 2020 07:10
--- NOTE | 2020-11-16 07:43 | Progress Note - Surgery ---
ABRIL ROSENBAUMEN 11/16/20 0743: Subjective Date Seen by a Provider: Nov 16, 2020 Time Seen by a Provider: 06:45 Subjective/Events-last exam 1 day s/p port placement. Pt reports some chills, L sided to lower abdominal pain, and chest pain, but better breathing today. Nurse reports alternating between bipap and room air. Denies any fever, nausea, vomiting, or diarrhea. Platelets currently at 10. Objective Exam Vital Signs Date Time Temp Pulse Resp B/P (MAP) Pulse Ox O2 Delivery O2 Flow Rate FiO2 11/16/20 06:00 99 23 131/89 (103) 94 NIV Bilevel 30.00 11/16/20 05:00 85 16 132/116 (121) 97 NIV Bilevel 30.00 11/16/20 04:40 NIV Bilevel 30.00 11/16/20 04:00 91 25 77/66 (70) 93 Nasal Cannula 5.00 11/16/20 04:00 94 NIV Bilevel 30 11/16/20 03:42 35.9 90 Nasal Cannula 5.00 11/16/20 03:00 85 21 110/44 (66) 92 NIV Bilevel 30.00 11/16/20 02:40 88 19 95 30.00 11/16/20 02:00 82 19 142/78 (99) 93 NIV Bilevel 30.00 11/16/20 01:00 89 23 110/90 (97) 95 NIV Bilevel 30.00 11/16/20 01:00 89 11/16/20 00:00 93 NIV Bilevel 30 11/16/20 00:00 93 16 112/87 (95) 94 NIV Bilevel 30.00 11/16/20 00:00 36.1 11/15/20 23:00 107 23 127/91 (103) 94 Nasal Cannula 3.00 11/15/20 22:00 158 23 118/99 (105) 95 Nasal Cannula 3.00 11/15/20 21:00 149 14 102/88 (93) 97 NIV Bilevel 30.00 11/15/20 20:00 89 24 130/108 (115) 98 NIV Bilevel 30.00 11/15/20 20:00 93 NIV Bilevel 30 11/15/20 19:50 100 NIV Bilevel 30.00 11/15/20 19:12 36.0 11/15/20 19:00 82 11/15/20 19:00 90 24 100 NIV Bilevel 30.00 11/15/20 18:52 81 19 100 40.00 11/15/20 16:56 NIV Bilevel 40.00 11/15/20 16:15 141/97 (112) Nasal Cannula 3.00 11/15/20 16:15 36.4 20 137/69 (91) 96 OxyMask 4 11/15/20 16:15 OxyMask 4 11/15/20 16:10 20 137/69 (91) 96 OxyMask 4 11/15/20 16:00 18 134/76 (95) 96 OxyMask 4 11/15/20 16:00 91 Nasal Cannula 4.00 11/15/20 15:50 22 138/54 (82) 94 OxyMask 5 11/15/20 15:50 OxyMask 5 11/15/20 15:40 36.5 24 119/70 (86) 92 OxyMask 8 11/15/20 15:39 36.5 24 119/70 (86) 92 OxyMask 8 11/15/20 15:39 OxyMask 8 11/15/20 14:23 35.8 88 18 161/111 98 Nasal Cannula 4.00 11/15/20 14:00 83 13 139/106 (117) 95 Nasal Cannula 3.00 11/15/20 13:00 86 20 153/116 (128) 97 Nasal Cannula 3.00 11/15/20 12:51 85 11/15/20 12:00 94 Nasal Cannula 4.00 11/15/20 12:00 88 20 125/108 (114) 100 Nasal Cannula 3.00 11/15/20 11:00 87 16 152/116 (128) 100 Nasal Cannula 3.00 11/15/20 10:33 90 22 100 40.00 11/15/20 10:00 100 36 132/61 (84) 94 Nasal Cannula 3.00 11/15/20 09:00 101 27 161/119 (133) 91 Nasal Cannula 3.00 11/15/20 08:00 109 26 199/135 (156) 89 Nasal Cannula 3.00 11/15/20 08:00 93 Nasal Cannula 3.00 I & O 11/16/20 07:00 Intake Total 420 ml Output Total 975 ml Balance -555 ml Capillary Refill : Less Than 3 SecondsLess Than 3 Seconds General Appearance: WD/WN HEENT: PERRL/EOMI Neck: Lymphadenopathy (L) (supraclavicular, cervical), Lymphadenopathy (R) (supraclavicular, cervical) Respiratory: Lungs Clear Cardiovascular: Regular Rate, Rhythm Gastrointestinal: soft Extremity: Non Tender, No Calf Tenderness, No Pedal Edema Neurologic/Psychiatric: Alert, Oriented x3 Skin: Normal Color, Warm/Dry Lymphatic: Axilla Node Tender (L), Axilla Node Tender (R) Results Lab Laboratory Tests 11/15/20 10:13: Glucometer 148H 11/15/20 10:36: Sodium Level 138, Potassium Level 3.6, Chloride Level 102, Carbon Dioxide Level 22, Anion Gap 14, Blood Urea Nitrogen 23H, Creatinine 0.82, Estimat Glomerular Filtration Rate 93, BUN/Creatinine Ratio 28, Glucose Level 163H, Calcium Level 8.5, Magnesium Level 1.9, Troponin I 0.186H 11/15/20 12:15: Lab Scanned Report Transfusion Reaction Form 11/15/20 12:26: Glucometer 138H 11/15/20 16:29: Glucometer 161H 11/15/20 20:21: Glucometer 145H 11/16/20 03:41: White Blood Count 12.3H, Red Blood Count 3.05L, Hemoglobin 9.5L, Hematocrit 28L, Mean Corpuscular Volume 93, Mean Corpuscular Hemoglobin 31, Mean Corpuscular Hemoglobin Concent 34, Red Cell Distribution Width 18.7H, Platelet Count 10*L, Mean Platelet Volume , Immature Granulocyte % (Auto) 2, Neutrophils (%) (Auto) 86H, Lymphocytes (%) (Auto) 4L, Monocytes (%) (Auto) 8, Eosinophils (%) (Auto) 0, Basophils (%) (Auto) 0, Neutrophils # (Auto) 10.5H, Lymphocytes # (Auto) 0.5L , Monocytes # (Auto) 1.0, Eosinophils # (Auto) 0.0, Basophils # (Auto) 0.0, Immature Granulocyte # (Auto) 0.3H, Sodium Level 138, Potassium Level 3.5L, Chloride Level 102, Carbon Dioxide Level 22, Anion Gap 14, Blood Urea Nitrogen 27H, Creatinine 0.78, Estimat Glomerular Filtration Rate 99, BUN/Creatinine Ratio 35, Glucose Level 127H, Calcium Level 8.7, Phosphorus Level 3.4, Magnesium Level 1.9 Assessment/Plan Assessment/Plan Assessment/Plan s/p port placement on 11/15 Biopsy from left axillary node reported as Adenocarcinoma consistent of lung primary b/l cervical, supraclavicular and axillary lymphadenopathy s/p L axillary lymph node biopsy Dyspnea, with recent history of pe and dvt right lower extremity Thrombocytopenia RONDA Long-term anticoagulation Platelets at 10 today Xarelto Held Reviewed Chest X-ray, showed central venous catheter placement on right with no apparent complications Continue to monitor PONDMARIAM Mp DO 11/16/20 1603: Subjective Subjective/Events-last exam Patient on bipap. Some slight difficulty breathing . Port accessed. Objective Exam General Appearance: WD/WN HEENT: PERRL/EOMI Neck: Lymphadenopathy (L) (supraclavicular, cervical), Lymphadenopathy (R) (supraclavicular, cervical) Respiratory: Chest Non Tender (on bipap), No Accessory Muscle Use, No Respiratory Distress Cardiovascular: Regular Rate, Rhythm, No JVD Gastrointestinal: non tender, soft Extremity: Non Tender, No Calf Tenderness Neurologic/Psychiatric: Alert, Oriented x3 Skin: Normal Color, Warm/Dry Lymphatic: Axilla Node Tender (L), Axilla Node Tender (R) Assessment/Plan Assessment/Plan Assessment/Plan s/p port placement on 11/15 Biopsy from left axillary node reported as Adenocarcinoma consistent of lung primary b/l cervical, supraclavicular and axillary lymphadenopathy s/p L axillary lymph node biopsy Dyspnea, with recent history of pe and dvt right lower extremity Thrombocytopenia RONDA Long-term anticoagulation Platelets at 10 today Xarelto Held Reviewed Chest X-ray, showed central venous catheter placement on right with no apparent complications May use port if needed. WIll sign off call if needed. Supervisory-Addendum Brief Verification & Attestation Participated in pt care: history, MDM, physical Personally performed: exam, history, MDM, supervision of care Care discussed with: Medical Student Procedures: n/a Results interpretation: Verified all documentation Verification and Attestation of Medical Student E/M Service A medical student performed and documented this service in my presence. I reviewed and verified all information documented by the medical student and made modifications to such information, when appropriate. I personally performed the physical exam and medical decision making. Mariam Pond, Nov 16, 2020,16:02 JOHN ROSENBAUM Nov 16, 2020 07:43 MARIAM POND DO Nov 16, 2020 16:03
[2020-11-16] MEDS ORDERED: KCL 20 MEQ TAB (K-DUR) PO ONE ×2 (08:00→10:30)
[2020-11-16] MEDS: PANTOPRAZOLE 40 MG (PROTONIX) TAB PO SCH (09:31)
[2020-11-16] MEDS: HYDROcodone/APAP 5 MG/325 MG (LORTAB) TAB PO PRN ×2 (09:32→23:20)
[2020-11-16] MEDS: FOLIC ACID 1 MG TAB PO SCH (09:32)
[2020-11-16] MEDS: lisINopril 40 MG (PRINIVIL) TABLET PO SCH (09:32)
[2020-11-16] MEDS: BACLOFEN 10 MG (LIORESAL) TAB PO SCH ×3 (09:32→20:03)
[2020-11-16] MEDS: FUROSEMIDE 40 MG (LASIX) TAB PO SCH (09:33)
--- NOTE | 2020-11-16 10:22 | Cardiology Progress Note ---
Progress Note-Cardiology Events since last exam Date Seen by Provider: Nov 16, 2020 Time Seen by Provider: 10:20 Events since last exam I am seeing him due to atrial fibrillation. He was able to come off BiPAP o vernight. He has mild respiratory distress at this point in time. He feels like he has a pressure in his chest due to the shortness of breath. He does have some palpitations off and on. He denies syncope or ankle edema. Certain portions of this document may have been dictated utilizing voice re cognition technology. Inherent to this technology, typographical and grammatical errors may exist. As much as I am diligent to identify and correct these mistakes, some errors may remain in the document. Vitals Last set of Vitals Signs Vital Signs 11/16/20 11/16/20 11/16/20 09:00 16:30 17:00 Temp 36.2 Pulse 86 Resp 28 B/P (MAP) 119/75 (90) Pulse Ox 99 O2 Delivery NIV Bilevel O2 Flow Rate 40.00 FiO2 30 Labs Labs Laboratory Tests 11/16/20 03:41 11/16/20 16:53 Exam Vital Signs Vital Signs Date Time Temp Pulse Resp B/P (MAP) Pulse Ox O2 Delivery O2 Flow Rate FiO2 11/16/20 17:00 86 28 119/75 (90) 99 NIV Bilevel 40.00 11/16/20 16:30 36.2 11/16/20 09:00 30 Physical Exam General: Alert. Mild respiratory distress on nasal cannula oxygen. He appears chronically ill. Eye: No xanthelasma. HENT: Normocephalic. Neck: Jugular venous pressure does not appear elevated. Respiratory: Lungs have some scattered wheezes. Respirations are mildly labored. Breath sounds are equal. Symmetrical chest wall expansion. Cardiovascular: Normal rate. Irregular rhythm. 2/6 systolic ejection murmur. No gallop. No edema. Gastrointestinal: Soft. Normal bowel sounds. Skin: Warm. Dry. Neurologic: Alert and oriented to person, place, time. Cranial nerves 3-11 grossly intact. Psychiatric: Cooperative. Appropriate mood & affect. Labs Laboratory Tests Test 11/15/20 20:21 11/16/20 03:41 11/16/20 11:13 11/16/20 13:37 Range/Units Glucometer 145 H 128 H 70-110 MG/DL White Blood Count 12.3 H 4.3-11.0 10^3/uL Red Blood Count 3.05 L 4.30-5.52 10^6/uL Hemoglobin 9.5 L 13.3-17.7 g/dL Hematocrit 28 L 40-54 % Mean Corpuscular Volume 93 80-99 fL Mean Corpuscular Hemoglobin 31 25-34 pg Mean Corpuscular Hemoglobin Concent 34 32-36 g/dL Red Cell Distribution Width 18.7 H 10.0-14.5 % Platelet Count 10 *L 130-400 10^3/uL Mean Platelet Volume 9.0-12.2 fL Immature Granulocyte % (Auto) 2 % Neutrophils (%) (Auto) 86 H 42-75 % Lymphocytes (%) (Auto) 4 L 12-44 % Monocytes (%) (Auto) 8 0-12 % Eosinophils (%) (Auto) 0 0-10 % Basophils (%) (Auto) 0 0-10 % Neutrophils # (Auto) 10.5 H 1.8-7.8 10^3/uL Lymphocytes # (Auto) 0.5 L 1.0-4.0 10^3/uL Monocytes # (Auto) 1.0 0.0-1.0 10^3/uL Eosinophils # (Auto) 0.0 0.0-0.3 10^3/uL Basophils # (Auto) 0.0 0.0-0.1 10^3/uL Immature Granulocyte # (Auto) 0.3 H 0.0-0.1 10^3/uL Sodium Level 138 135-145 MMOL/L Potassium Level 3.5 L 3.6-5.0 MMOL/L Chloride Level 102 98-107 MMOL/L Carbon Dioxide Level 22 21-32 MMOL/L Anion Gap 14 5-14 MMOL/L Blood Urea Nitrogen 27 H 7-18 MG/DL Creatinine 0.78 0.60-1.30 MG/DL Estimat Glomerular Filtration Rate 99 BUN/Creatinine Ratio 35 Glucose Level 127 H 70-105 MG/DL Calcium Level 8.7 8.5-10.1 MG/DL Phosphorus Level 3.4 2.3-4.7 MG/DL Magnesium Level 1.9 1.6-2.4 MG/DL Lab Scanned Report Transfusion Reaction Form [id number] Test 11/16/20 16:35 11/16/20 16:53 Range/Units Glucometer 161 H 70-110 MG/DL Sodium Level 139 135-145 MMOL/L Potassium Level 4.2 3.6-5.0 MMOL/L Chloride Level 103 98-107 MMOL/L Carbon Dioxide Level 24 21-32 MMOL/L Anion Gap 12 5-14 MMOL/L Blood Urea Nitrogen 30 H 7-18 MG/DL Creatinine 0.85 0.60-1.30 MG/DL Estimat Glomerular Filtration Rate 90 BUN/Creatinine Ratio 35 Glucose Level 166 H 70-105 MG/DL Calcium Level 8.7 8.5-10.1 MG/DL Diagnosis/Problems Diagnosis/Problems (1) Paroxysmal atrial fibrillation Assessment & Plan: This is a new diagnosis for the patient. This may have been brought on by his multitude of acute, noncardiac issues. At this point in time, he seems to be going back and forth between atrial fibrillation and sinus rhythm. I recommend he continue on oral diltiazem for rate control in the event he has recurrent atrial fibrillation. We will continue to hold off on oral anticoagulation due to his severe thrombocytopenia. If he continues to maintain sinus rhythm, we may not actually need to start him on oral anticoagulation. (2) Pericardial effusion Assessment & Plan: He had a moderate sized predominantly anterior pericardial effusion noted on echocardiogram from 11/15. Given the metastatic lung cancer, this is concerning for possible malignant effusion. However, I suspect knowing whether or not this is a malignant pericardial effusion will not change his management for the lung cancer. If he ends up developing signs of pericardial tamponade, he may need a pericardiocentesis at that time. (3) Pulmonary hypertension Assessment & Plan: Most likely multifactorial. Continue oxygen as needed. (4) Primary hypertension Assessment & Plan: His blood pressure is now controlled on long-acting diltiazem. (5) Acute on chronic respiratory failure with hypoxemia Assessment & Plan: Most likely multifactorial. I did give him 1 dose of IV furosemide on 11/15. His primary provider is managing his pulmonary status. (6) Thoracic aortic aneurysm without rupture Assessment & Plan: This was an incidental finding on his echocardiogram. This is in a mild range. This will likely never become of any clinical significance. (7) Thrombocytopenia Status: Acute Assessment & Plan: This is being managed by hematology. This condition makes invasive procedures and oral anticoagulation difficult. VINOD LOPEZ JR, MD Nov 16, 2020 10:22
[2020-11-16] MEDS ORDERED: FUROSEMIDE 40 MG/4 ML INJ (LASIX) IVP ONE ×2 (10:30→12:30)
--- NOTE | 2020-11-16 10:30 | Progress Note ---
Subjective Date Seen by a Provider: Nov 16, 2020 Time Seen by a Provider: 10:22 Subjective/Events-last exam Fwup thrombocytopenia/ITP, Lung Adenocarcinoma with mets to lymph nodes, Right sided PE and Bibasilare Pleural Effusions with atelectesis, acute respiratory failure, Pericardial effusion, weakness, new onset atrial fibrillation with RVR. Was on BIPAP last night after surgery for port placement and also had confusion. Down to NC this morning and less confused. Back in NSR with rate in 90s. Objective Exam Vital Signs Date Time Temp Pulse Resp B/P (MAP) Pulse Ox O2 Delivery O2 Flow Rate FiO2 11/16/20 09:00 94 26 130/92 (105) 96 NIV Bilevel 30.00 11/16/20 09:00 94 NIV Bilevel 30 11/16/20 08:12 89 19 95 30.00 11/16/20 08:00 94 21 142/110 (121) 93 NIV Bilevel 30.00 11/16/20 07:00 90 24 139/99 (112) 98 NIV Bilevel 30.00 11/16/20 07:00 93 11/16/20 06:00 99 23 131/89 (103) 94 NIV Bilevel 30.00 11/16/20 05:00 85 16 132/116 (121) 97 NIV Bilevel 30.00 11/16/20 04:40 NIV Bilevel 30.00 11/16/20 04:00 91 25 77/66 (70) 93 Nasal Cannula 5.00 11/16/20 04:00 94 NIV Bilevel 30 11/16/20 03:42 35.9 90 Nasal Cannula 5.00 11/16/20 03:00 85 21 110/44 (66) 92 NIV Bilevel 30.00 11/16/20 02:40 88 19 95 30.00 11/16/20 02:00 82 19 142/78 (99) 93 NIV Bilevel 30.00 11/16/20 01:00 89 23 110/90 (97) 95 NIV Bilevel 30.00 11/16/20 01:00 89 11/16/20 00:00 93 NIV Bilevel 30 11/16/20 00:00 93 16 112/87 (95) 94 NIV Bilevel 30.00 11/16/20 00:00 36.1 11/15/20 23:00 107 23 127/91 (103) 94 Nasal Cannula 3.00 11/15/20 22:00 158 23 118/99 (105) 95 Nasal Cannula 3.00 11/15/20 21:00 149 14 102/88 (93) 97 NIV Bilevel 30.00 11/15/20 20:00 89 24 130/108 (115) 98 NIV Bilevel 30.00 11/15/20 20:00 93 NIV Bilevel 30 11/15/20 19:50 100 NIV Bilevel 30.00 11/15/20 19:12 36.0 11/15/20 19:00 82 11/15/20 19:00 90 24 100 NIV Bilevel 30.00 11/15/20 18:52 81 19 100 40.00 11/15/20 16:56 NIV Bilevel 40.00 11/15/20 16:15 141/97 (112) Nasal Cannula 3.00 11/15/20 16:15 36.4 20 137/69 (91) 96 OxyMask 4 11/15/20 16:15 OxyMask 4 11/15/20 16:10 20 137/69 (91) 96 OxyMask 4 11/15/20 16:00 18 134/76 (95) 96 OxyMask 4 11/15/20 16:00 91 Nasal Cannula 4.00 11/15/20 15:50 22 138/54 (82) 94 OxyMask 5 11/15/20 15:50 OxyMask 5 11/15/20 15:40 36.5 24 119/70 (86) 92 OxyMask 8 11/15/20 15:39 36.5 24 119/70 (86) 92 OxyMask 8 11/15/20 15:39 OxyMask 8 11/15/20 14:23 35.8 88 18 161/111 98 Nasal Cannula 4.00 11/15/20 14:00 83 13 139/106 (117) 95 Nasal Cannula 3.00 11/15/20 13:00 86 20 153/116 (128) 97 Nasal Cannula 3.00 11/15/20 12:51 85 11/15/20 12:00 94 Nasal Cannula 4.00 11/15/20 12:00 88 20 125/108 (114) 100 Nasal Cannula 3.00 11/15/20 11:00 87 16 152/116 (128) 100 Nasal Cannula 3.00 11/15/20 10:33 90 22 100 40.00 I & O 11/16/20 07:00 Intake Total 420 ml Output Total 975 ml Balance -555 ml Capillary Refill : Less Than 3 SecondsLess Than 3 Seconds General Appearance: Moderate Distress Neck: Supple Respiratory: Lungs Clear, Decreased Breath Sounds Cardiovascular: Regular Rate, Rhythm, Systolic Murmur Gastrointestinal: normal bowel sounds, non tender, soft Extremity: Non Tender, No Calf Tenderness, No Pedal Edema Neurologic/Psychiatric: Alert, Oriented x3 Results Lab Laboratory Tests 11/15/20 10:36: Sodium Level 138, Potassium Level 3.6, Chloride Level 102, Carbon Dioxide Level 22, Anion Gap 14, Blood Urea Nitrogen 23H, Creatinine 0.82, Estimat Glomerular Filtration Rate 93, BUN/Creatinine Ratio 28, Glucose Level 163H, Calcium Level 8.5, Magnesium Level 1.9, Troponin I 0.186H 11/15/20 12:15: Lab Scanned Report Transfusion Reaction Form 11/15/20 12:26: Glucometer 138H 11/15/20 16:29: Glucometer 161H 11/15/20 20:21: Glucometer 145H 11/16/20 03:41: White Blood Count 12.3H, Red Blood Count 3.05L, Hemoglobin 9.5L, Hematocrit 28L, Mean Corpuscular Volume 93, Mean Corpuscular Hemoglobin 31, Mean Corpuscular Hemoglobin Concent 34, Red Cell Distribution Width 18.7H, Platelet Count 10*L, Mean Platelet Volume , Immature Granulocyte % (Auto) 2, Neutrophils (%) (Auto) 86H, Lymphocytes (%) (Auto) 4L, Monocytes (%) (Auto) 8, Eosinophils (%) (Auto) 0, Basophils (%) (Auto) 0, Neutrophils # (Auto) 10.5H, Lymphocytes # (Auto) 0.5L , Monocytes # (Auto) 1.0, Eosinophils # (Auto) 0.0, Basophils # (Auto) 0.0, Immature Granulocyte # (Auto) 0.3H, Sodium Level 138, Potassium Level 3.5L, Chloride Level 102, Carbon Dioxide Level 22, Anion Gap 14, Blood Urea Nitrogen 27H, Creatinine 0.78, Estimat Glomerular Filtration Rate 99, BUN/Creatinine Ratio 35, Glucose Level 127H, Calcium Level 8.7, Phosphorus Level 3.4, Magnesium Level 1.9 Assessment/Plan Assessment/Plan Assess & Plan/Chief Complaint 1. Acute Thrombocytopenia/ITP--on prednisone and IVIG, will hold platelet transfusions unless less than 10,000 2. Right Sided PE--Xarelto on hold due to thrombocytopenia 3. Bibasilar Pleural Effusions/Atelectesis--IS started but patient has not been using and also not wanting to sit up or get out of bed even though told this will make his atelectesis worse and at increased risk for pneumonia 4. Acute Renal Insufficiency--improved with hydration 5. Hyperglycemia--patient has known impaired fasting glucose--on accuchecks with SSI 6. Hypertension--on lisinopril and cardizem 7. Lung Adenocarcinoma with diffuse mets to lymph nodes--Dr. Funes planning on starting treatment next week, port placement yesterday 8. Left Supraclavicular lymphadenopathy with left neck pain/neuropathy--requiring fentanyl for pain, on baclofen and gabapentin 9. New onset atrial fibrillation with RVR--on cardizem, back to NSR, cardiology consulted, once again cannot start DOAC due to thrombocytopenia 10. Pericardial effusion--unable to consider pericardiocentesis at this time due to other comorbidities including ITP but no evidence of cardiac tamponade and will not change oncology treatment so will monitor 11. Acute Respiratory Failure--on NC now but will use BIPAP prn 12. Weakness--start PT, may need SWING bed, needs to be more upright for atelectesis/breathing Ex- and daughter at bedside and numerous questions answered Clinical Quality Measures Admission Status Admission Dx 1. Acute Thrombocytopenia--admit and transfuse platelets and repeat CBC in Am, Dr. Funes to consult, Change eliquis to xarelto in case this is contributing, consider steroids if could be ITP related 2. Generalized Lymphadenopathy--had axillary lymph node biopsy earlier in the week--so far no obvious lymphoma but other staining and evaluation are pending by pathology, may need another surgical biopsy but will wait on pathology finish ing workup on current biopsy first due to thrombocytopenia and DVT/PE 3. Right LE DVT and Right sided PE--needs to stay on blood thinner but will change eliquis to Xarelto in case this is contributing to thrombocytopenia 4. Dyspnea on Exertion/Right sided pleural effusion--start IS, albuterol in SVN prn 5. Acute Renal Insufficiency/Hyponatremia--hydrate and repeat levels in AM MICHELL DAS DO Nov 16, 2020 10:30
--- NOTE | 2020-11-16 10:33 | Pulmonary Progress Note ---
STEFANIE ARSHAD MED STUDENT 11/16/20 1033: Subjective Date Seen by a Provider: Nov 16, 2020 Time Seen by a Provider: 07:35 Subjective/Events-last exam Josh is Sepsis Event Evaluation Height, Weight, BMI Height: 5'8.00" Weight: 160lbs. 0.0oz. [id number]; 22.44 BMI Method: Exam Exam Patient acknowledged, consented, and participated in this virtual visit which was conducted using real time audio/video Vital Signs Date Time Temp Pulse Resp B/P (MAP) Pulse Ox O2 Delivery O2 Flow Rate FiO2 11/16/20 10:00 98 19 139/93 (108) 95 NIV Bilevel 30.00 11/16/20 09:00 94 26 130/92 (105) 96 NIV Bilevel 30.00 11/16/20 09:00 94 NIV Bilevel 30 11/16/20 08:12 89 19 95 30.00 11/16/20 08:00 94 21 142/110 (121) 93 NIV Bilevel 30.00 11/16/20 07:00 90 24 139/99 (112) 98 NIV Bilevel 30.00 11/16/20 07:00 93 11/16/20 06:00 99 23 131/89 (103) 94 NIV Bilevel 30.00 11/16/20 05:00 85 16 132/116 (121) 97 NIV Bilevel 30.00 11/16/20 04:40 NIV Bilevel 30.00 11/16/20 04:00 91 25 77/66 (70) 93 Nasal Cannula 5.00 11/16/20 04:00 94 NIV Bilevel 30 11/16/20 03:42 35.9 90 Nasal Cannula 5.00 11/16/20 03:00 85 21 110/44 (66) 92 NIV Bilevel 30.00 11/16/20 02:40 88 19 95 30.00 11/16/20 02:00 82 19 142/78 (99) 93 NIV Bilevel 30.00 11/16/20 01:00 89 23 110/90 (97) 95 NIV Bilevel 30.00 11/16/20 01:00 89 11/16/20 00:00 93 NIV Bilevel 30 11/16/20 00:00 93 16 112/87 (95) 94 NIV Bilevel 30.00 11/16/20 00:00 36.1 11/15/20 23:00 107 23 127/91 (103) 94 Nasal Cannula 3.00 11/15/20 22:00 158 23 118/99 (105) 95 Nasal Cannula 3.00 11/15/20 21:00 149 14 102/88 (93) 97 NIV Bilevel 30.00 11/15/20 20:00 89 24 130/108 (115) 98 NIV Bilevel 30.00 11/15/20 20:00 93 NIV Bilevel 30 11/15/20 19:50 100 NIV Bilevel 30.00 11/15/20 19:12 36.0 11/15/20 19:00 82 11/15/20 19:00 90 24 100 NIV Bilevel 30.00 11/15/20 18:52 81 19 100 40.00 11/15/20 16:56 NIV Bilevel 40.00 11/15/20 16:15 141/97 (112) Nasal Cannula 3.00 11/15/20 16:15 36.4 20 137/69 (91) 96 OxyMask 4 11/15/20 16:15 OxyMask 4 11/15/20 16:10 20 137/69 (91) 96 OxyMask 4 11/15/20 16:00 18 134/76 (95) 96 OxyMask 4 11/15/20 16:00 91 Nasal Cannula 4.00 11/15/20 15:50 22 138/54 (82) 94 OxyMask 5 11/15/20 15:50 OxyMask 5 11/15/20 15:40 36.5 24 119/70 (86) 92 OxyMask 8 11/15/20 15:39 36.5 24 119/70 (86) 92 OxyMask 8 11/15/20 15:39 OxyMask 8 11/15/20 14:23 35.8 88 18 161/111 98 Nasal Cannula 4.00 11/15/20 14:00 83 13 139/106 (117) 95 Nasal Cannula 3.00 11/15/20 13:00 86 20 153/116 (128) 97 Nasal Cannula 3.00 11/15/20 12:51 85 11/15/20 12:00 94 Nasal Cannula 4.00 11/15/20 12:00 88 20 125/108 (114) 100 Nasal Cannula 3.00 11/15/20 11:00 87 16 152/116 (128) 100 Nasal Cannula 3.00 11/15/20 10:33 90 22 100 40.00 I & O 11/16/20 07:00 Intake Total 420 ml Output Total 975 ml Balance -555 ml Height & Weight Height: 5'8.00" Weight: 160lbs. 0.0oz. [id number]; 22.44 BMI Method: General Appearance: Moderate Distress HEENT: PERRL/EOMI Neck: Supple Respiratory: Lungs Clear, Decreased Breath Sounds Cardiovascular: Regular Rate, Rhythm, Systolic Murmur Capillary Refill: Less Than 3 Seconds Gastrointestinal: normal bowel sounds, non tender, soft Extremity: Non Tender, No Calf Tenderness, No Pedal Edema Neurologic/Psychiatric: Alert, Oriented x3 Skin: Normal Color, Warm/Dry Lymphatic: Axilla Node Tender (L), Axilla Node Tender (R) Results Lab Laboratory Tests 11/15/20 04:55 11/15/20 10:36 11/16/20 03:41 MATEO ISAAC MD 11/16/20 1253: Assessment/Plan Assessment/Plan . Supervisory-Addendum Brief Verification & Attestation Participated in pt care: history, MDM, physical Personally performed: history, MDM, supervision of care Care discussed with: Medical Student Procedures: n/a A/P Acute resp failure - presumed VO - gentle diuresis - follow after lasix given AN - BNP and BMP pendig at 17.00 - Bipap for WOB PRN Thrombocytopenia clinically consistent with ITP - as per hem/onc - prednisone 70 mg daily - Status post IVIG 70 g daily x2 - plt transfusions as needed H/o Right LE DVT and PE - OFF chronic anticoagulation now NSCLC ( Adenocarcinoma) ( LYNN suspected ) by bx of LN - s/p PORT 11/15 - plans for chemo next week Anxiety - xanax - A medical student performed and documented this service. I reviewed all information documented by the medical student and made modifications to such information, when appropriate. Medical student performed patients physical exam. Medical decision making was done during tele-rounds with this medical student and a bedside RN . Plans in collaboration with bedside consultants and IM MDs. Discussed with RN to reach out if any questions or concerns A total of32 minutes of critical care time was devoted to this patient today, required to treat and/or prevent further deterioration of critical care condition ( as above) . STEFANIE ARSHAD MED STUDENT Nov 16, 2020 10:33 MATEO ISAAC MD Nov 16, 2020 12:53
--- NOTE | 2020-11-16 14:06 | Physical Therapy Evaluation ---
PT Evaluation-General Medical Diagnosis Admission Date Nov 08, 2020 at 09:28 Medical Diagnosis: dyspnea/thrombocytopenia Onset Date: Nov 08, 2020 Therapy Diagnosis Therapy Diagnosis: generalized weakness/debility Height/Weight Height (Feet): 5 Height (Inches): 8.00 Weight (Pounds): 160 Weight (Ounces): 0.0 Precautions Precautions/Isolations: Standard Precautions Referral Physician: Stephy Reason for Referral: Evaluation/Treatment Medical History Pertinent Medical History: HTN Additional Medical History DVT's Current History ER secondary to SOA (new onset A-fib, lung adenocarcinoma with mets to lymph nodes) Reviewed History: Yes Social History Home: Single Level Prior Prior Level of Function SCALE: Activities may be completed with or without assistive devices. 7-Wpseopbtkf-ieetdqs completes the activity by him/herself with no assistance from a helper. 5-Set-up or Clean-up Assistance-helper sets up or cleans up; patient completes activity. [place] assists only prior to or following the activity. 4-Supervision or Touching Assistance-helper provides verbal cues and/or touching/steadying and/or contact guard assistance as patient completes activity. Assistance may be provided throughout the activity or intermittently. 3-Partial/Moderate Assistance-helper does LESS THAN HALF the effort. [place] lifts, holds or supports trunk or limbs, but provides less than half the effort. 2-Substantial/Maximal Assistance-helper does MORE THAN HALF the effort. [place] lifts or holds trunk or limbs and provides more than half the effort. 9-Fcuzcamys-rdufif does ALL the effort. Patient does none of the effort to complete the activity. Or, the assistance of 2 or more helpers is required for the patient to complete the activity. If activity was not attempted, code reason: 7-Patient Refused. 9-Not Applicable-not attempted and the patient did not perform the activity before the current illness, exacerbation or injury. 10-Not Attempted due to Environmental Limitations-(lack of equipment, weather restraints, etc.). 88-Not Attempted due to Medical Conditions or Safety Concerns. Bed Mobility: 6 Transfers (B,C,W/C): 6 Gait: 6 Stairs: 6 Indoor Mobility (Ambulation): Independent Stairs: Independent Prior Devices Use: None PT Evaluation-Current Subjective Patient currently on BiPap. Agrees to PT. Objective Patient Orientation: Normal For Age Attachments: Oxygen (BiPap) ROM/Strength ROM Lower Extremities bilateral LE WFL Strength Lower Extremities 3-/5 grossly bilateral LE Integumentary/Posture Bowel Incontinence: No Bladder Incontinence: No Posture WFL Neuromuscular (Tone, Coordination, Reflexes) diminished coordination due to weakness Sensory Vision: Functional Hearing: Functional Transfers Sit to Lying (QC): 1 Lying to Sitting/Side of Bed(Q: 1 Sit to Stand (QC): 88 Chair/Dpg-to-Axslc Xfer(QC): 88 Toilet Transfer (QC): 88 Sat EOB with CGA to maintain due to weakness Gait Does the Patient Walk?: No and Walking Goal IS indicated Balance Sitting Static: Fair Sitting Dynamic: Poor Assessment/Needs Patient SAO2 decreased to 79% sitting EOB. Patient returned to supine with recovery to 94%. RN notified. PT to address functional strength and mobility as patient tolerates. Rehab Potential: Poor PT Tool Crib Lead Goals Tool Crib Lead Goals PT Tool Crib Lead Goals Time Frame: Dec 01, 2020 Roll Left & Right (QC): 4 Sit to Lying (QC): 4 Lying-Sitting on Side/Bed(QC): 4 Sit to Stand (QC): 4 Chair/Cej-by-Nvwic Xfer(QC): 4 Toilet Transfer (QC): 4 Walk 10 feet (QC): 4 Walk 50ft with 2 Turns (QC): 4 PT Plan Problem List Problem List: Activity Tolerance, Functional Strength, Safety, Balance, Gait, Transfer, Bed Mobility Treatment/Plan Treatment Plan: Continue Plan of Care Treatment Plan: Bed Mobility, Education, Functional Activity [place], Functional Strength, Gait, Safety, Therapeutic Exercise, Transfers Treatment Duration: Dec 01, 2020 Frequency: 6 times per week Estimated Hrs Per Day: .25 hour per day Time/GCodes Time In: 1310 Time Out: 1325 Total Billed Treatment Time: 15 Total Billed Treatment 1 visit EVMod 15 min TAYLOR ADAME PT Nov 16, 2020 14:06
[2020-11-16 17:17] LABS: POTASSIUM 4.2 MMOL/L (3.6-5.0)
[2020-11-16 17:18] LABS: CALCIUM 8.7 MG/DL (8.5-10.1)
[2020-11-16 17:22] LABS: CREATININE SERUM 0.85 MG/DL (0.60-1.30)
[2020-11-16] MEDS ORDERED: DIGOXIN 0.25 MG/ML (LANOXIN) 2 ML AMP ONE (18:02)
[2020-11-16] MEDS ORDERED: DIGOXIN 0.25 MG/ML (LANOXIN) 2 ML AMP IV ONE (18:15)
[2020-11-16] MEDS ORDERED: AMIODARONE FOR BOLUS 150 MG in D5W 100 ML IVPB 100 ML IV NR (19:00)
[2020-11-16] MEDS: AMIODARONE INJECTION 450 MG in D5W IV SOLUTION (EXCEL) 250 ML IV SCH (19:11)
[2020-11-16] MEDS: GABAPENTIN 300 MG (NEURONTIN) CAP PO SCH (20:03)
[2020-11-17] VITALS (15 sets, daily range): BP systolic 24–167; BP diastolic 68–119
[2020-11-17 03:56] LABS: EOSINOPHILS % (AUTO) 0 % (0-10)
[2020-11-17 03:57] LABS: BASOPHILS % (AUTO) 0 % (0-10); HEMATOCRIT 27 % (40-54); HEMOGLOBIN 8.8 g/dL (13.3-17.7); LYMPHOCYTES # (AUTO) 0.7 10^3/uL (1.0-4.0); LYMPHOCYTES % (AUTO) 5 % (12-44); MEAN CORPUSCULAR HEMOGLOBIN 31 pg (25-34); MEAN CORPUSCULAR HGB CONC 33 g/dL (32-36); MEAN CORPUSCULAR VOLUME 95 fL (80-99); MONOCYTES # (AUTO) 1.1 10^3/uL (0.0-1.0); MONOCYTES % (AUTO) 8 % (0-12); NEUTROPHILS # (AUTO) 12.7 10^3/uL (1.8-7.8); NEUTROPHILS % (AUTO) 84 % (42-75); WHITE BLOOD COUNT 15.1 10^3/uL (4.3-11.0)
[2020-11-17 03:59] LABS: PLATELET COUNT 7 10^3/uL (130-400)
[2020-11-17 04:07] LABS: POTASSIUM 3.7 MMOL/L (3.6-5.0)
[2020-11-17 04:08] LABS: CALCIUM 8.7 MG/DL (8.5-10.1)
[2020-11-17 04:12] LABS: CREATININE SERUM 0.85 MG/DL (0.60-1.30)
[2020-11-17 04:19] LABS: BAND NEUTROPHILS 4 %; LYMPHOCYTES % (MANUAL) 3 %; MONOCYTES % (MANUAL) 7 %; NEUTROPHILS % (MANUAL) 86 %
[2020-11-17 04:20] LABS: CRENATED RBC MODERATE; NUCLEATED RED BLOOD CELLS 15; POLYCHROMASIA MODERATE
[2020-11-17] MEDS: POTASSIUM CL 10MEQ/50ML IVPB 50 ML IV SCH (05:57)
[2020-11-17] MEDS: KCL 20 MEQ TAB (K-DUR) PO SCH ×2 (05:58→08:44)
[2020-11-17] MEDS: predniSONE 20 MG TAB PO SCH ×2 (05:58→05:59)
[2020-11-17] MEDS: SUCRALFATE 1 GM (CARAFATE) TAB PO SCH ×2 (05:58→11:00)
[2020-11-17] MEDS: MAGNESIUM 1 GM/100 ML IVPB 100 ML IV SCH (05:58)
[2020-11-17] MEDS: inSUlin ASPART (NovoLOG) 1 UNIT/0.01 ML (CHARGE PER UNIT) SC SCH ×2 (05:59→11:00)
[2020-11-17] MEDS ORDERED: NS (IVPB) 100 ML ONE (06:36)
[2020-11-17] MEDS: AMIODARONE INJECTION 450 MG in D5W IV SOLUTION (EXCEL) 250 ML IV SCH (06:58)
[2020-11-17] MEDS: PANTOPRAZOLE 40 MG (PROTONIX) TAB PO SCH (08:34)
[2020-11-17] MEDS: BACLOFEN 10 MG (LIORESAL) TAB PO SCH (08:44)
[2020-11-17] MEDS: FOLIC ACID 1 MG TAB PO SCH (08:44)
[2020-11-17] MEDS: lisINopril 40 MG (PRINIVIL) TABLET PO SCH (08:44)
[2020-11-17] MEDS: FUROSEMIDE 40 MG (LASIX) TAB PO SCH (08:45)
--- NOTE | 2020-11-17 09:16 | Tele-ICU Progress Note ---
Subjective Date Seen by a Provider: Nov 17, 2020 Time Seen by a Provider: 07:22 Subjective/Events-last exam This virtual visit was conducted using real time audio/video. Thank you for asking us to see this patient for respiratory insufficiency and distress due to DVT/PE, [place] lung. HPC: Recent events: Port placed PE: Resting comfortably. VSS O2 sat 100% on BiPAP 12/6 40%. HEENT: No obvious masses, adenopathy or JVD. Chest: clear to auscultation, but diminished. CV: RRR S1 S2 No murmur or added sounds. Abd: Non-tender. Bowel sounds Y. : Unremarkable. [place] Y. COLLAR FELLER/psychiatric: Alert and oriented, grossly intact. No obvious focal findings. Extremities: No edema. Capillary refill < 3 seconds. Skin: unremarkable. Results: Elevated WCC 15.1, BUN 35. Decreased plts 7K. CXR B effusions, stable. A/P: Respiratory insufficiency/distress: Cont BiPAP Available chart/ vitals / labs /images reviewed. Video assessment done using teleICU camera, rest of exam as per RN. Monitor for increasing oxygenation needs and/or need for intubation. Critical Care: critically ill patient. Cont albut., amiodarone, pred., Carafate, Lisinopril. Possible chemo next wk. Consider increasing hydration. Consider nosocomial w/up/abx w rising WCC. Discussed with ROCIO Hummel. Asked RN to reach out to eICU if any questions or concerns later. Time spent with patient/coordination of care with other health professionals (mins): 20. Sepsis Event Evaluation Height, Weight, BMI Height: 5'8.00" Weight: 160lbs. 0.0oz. [id number]; 22.44 BMI Method: Exam Exam Patient acknowledged, consented, and participated in this virtual visit which wa s conducted using real time audio/video Vital Signs Date Time Temp Pulse Resp B/P (MAP) Pulse Ox O2 Delivery O2 Flow Rate FiO2 11/17/20 09:00 84 30 167/119 (135) 90 NIV Bilevel 30.00 11/17/20 08:01 36.3 11/17/20 08:00 82 22 143/79 (100) 97 NIV Bilevel 30.00 11/17/20 07:23 83 14 93 30.00 11/17/20 07:14 36.3 82 22 136/85 92 NIV Bilevel 11/17/20 07:05 NIV Bilevel 30.00 11/17/20 07:00 85 11/17/20 07:00 83 25 135/86 (102) 100 Nasal Cannula 6.00 11/17/20 06:59 36.8 85 22 135/86 99 Nasal Cannula 6.00 11/17/20 06:08 100 Nasal Cannula 6.00 11/17/20 06:00 81 23 108/90 (96) 100 NIV Bilevel 25.00 11/17/20 05:00 81 25 142/87 (105) 91 NIV Bilevel 25.00 11/17/20 04:51 80 14 100 35.00 11/17/20 04:00 36.1 94 NIV Bilevel 25.00 11/17/20 04:00 82 22 110/84 (93) 94 NIV Bilevel 25.00 11/17/20 04:00 94 NIV Bilevel 25 11/17/20 03:00 82 15 24/ (55) 92 NIV Bilevel 30.00 11/17/20 02:00 81 18 98/68 (78) 97 NIV Bilevel 30.00 11/17/20 01:00 82 11/17/20 01:00 82 23 134/88 (103) 97 NIV Bilevel 30.00 11/17/20 00:00 99 NIV Bilevel 40 11/17/20 00:00 87 20 122/98 (106) 98 NIV Bilevel 30.00 11/16/20 23:23 35.8 100 NIV Bilevel 30.00 11/16/20 23:00 90 23 107/87 (94) 100 NIV Bilevel 35.00 11/16/20 22:23 80 14 100 35.00 11/16/20 22:16 99 NIV Bilevel 35.00 11/16/20 22:00 88 21 129/83 (98) 100 NIV Bilevel 40.00 11/16/20 21:00 129 20 122/89 (100) 100 NIV Bilevel 40.00 11/16/20 20:00 99 NIV Bilevel 40 11/16/20 20:00 131 20 97 NIV Bilevel 40.00 11/16/20 20:00 36.0 11/16/20 19:00 140 11/16/20 19:00 116 25 134/97 (109) 98 NIV Bilevel 40.00 11/16/20 19:00 149 108/96 11/16/20 18:08 126 20 103/69 (80) 95 NIV Bilevel 40.00 11/16/20 17:00 86 28 119/75 (90) 99 NIV Bilevel 40.00 11/16/20 16:30 36.2 NIV Bilevel 40.00 11/16/20 16:12 80 14 100 40.00 11/16/20 16:00 80 10 107/83 (91) 99 NIV Bilevel 30.00 11/16/20 16:00 99 NIV Bilevel 40 11/16/20 15:00 90 26 116/76 (89) 99 NIV Bilevel 30.00 11/16/20 14:00 86 18 122/77 (92) 95 NIV Bilevel 30.00 11/16/20 13:00 90 22 124/91 (102) 94 NIV Bilevel 30.00 11/16/20 12:48 93 11/16/20 12:00 36.3 11/16/20 12:00 92 28 134/109 (117) 94 NIV Bilevel 30.00 11/16/20 11:35 94 Nasal Cannula 4.00 11/16/20 11:00 92 28 124/78 (93) 94 NIV Bilevel 30.00 11/16/20 10:00 98 19 139/93 (108) 95 NIV Bilevel 30.00 I & O 11/17/20 07:00 Intake Total 1003 ml Output Total 1250 ml Balance -247 ml Height & Weight Height: 5'8.00" Weight: 160lbs. 0.0oz. [id number]; 22.44 BMI Method: General Appearance: WD/WN HEENT: PERRL/EOMI Neck: Lymphadenopathy (L) (supraclavicular, cervical), Lymphadenopathy (R) (supraclavicular, cervical) Respiratory: Chest Non Tender (on bipap), No Accessory Muscle Use, No Respiratory Distress Cardiovascular: Regular Rate, Rhythm, No JVD Capillary Refill: Less Than 3 Seconds Peripheral Pulses: 1+ Dorsalis Pedis (R), 1+ Left Dors-Pedis (L) Gastrointestinal: non tender, soft Extremity: Non Tender, No Calf Tenderness Neurologic/Psychiatric: Alert, Oriented x3 Skin: Normal Color, Warm/Dry Lymphatic: Axilla Node Tender (L), Axilla Node Tender (R) Results Lab Laboratory Tests 11/15/20 10:36 11/16/20 03:41 11/16/20 16:53 11/17/20 03:25 Assessment/Plan Assessment/Plan See free text Critical Care: Critically Ill Patient ADRIAN BRAVO MD Nov 17, 2020 09:16
--- NOTE | 2020-11-17 09:19 | Physical Therapy Progress Note ---
Therapy Progress Note PT held this date. Nursing rolling Pt for linen change, Pt with O2 desaturation into the 70's, placed on BiPap. Pt will follow Thursday and resume as tolerated. JARRET CROW DPT Nov 17, 2020 09:19
[2020-11-17] MEDS ORDERED: AMIODARONE 200 MG (CORDARONE) TAB PO SCH (09:30)
--- NOTE | 2020-11-17 09:32 | Cardiology Progress Note ---
Progress Note-Cardiology Events since last exam Date Seen by Provider: Nov 17, 2020 Time Seen by Provider: 09:30 Events since last exam I am following him for atrial fibrillation. Last evening he developed recurrent atrial fibrillation with a rapid ventricular rate. I had the nurse give 1 dose of intravenous digoxin but his heart rate remained elevated. His blood pressure was too soft to start diltiazem infusion. I started him on amiodarone infusion and overnight, he converted back to sinus rhythm. Overnight his respiratory status declined and he was placed back on BiPAP. He is conversive but difficult to communicate with due to his BiPAP. The nurse tells me he has been somewhat lethargic this morning. Certain portions of this document may have been dictated utilizing voice recognition technology. Inherent to this technology, typographical and grammatical errors may exist. As much as I am diligent to identify and correct these mistakes, some errors may remain in the document. Vitals Last set of Vitals Signs Vital Signs 11/17/20 11/17/20 11/17/20 11/17/20 04:00 08:01 09:43 10:00 Temp 36.3 Pulse 80 Resp 28 B/P (MAP) 138/96 (110) Pulse Ox 93 O2 Delivery NIV Bilevel O2 Flow Rate 40.00 FiO2 25 Labs Labs Laboratory Tests 11/16/20 16:53 11/17/20 03:25 Exam Vital Signs Vital Signs Date Time Temp Pulse Resp B/P (MAP) Pulse Ox O2 Delivery O2 Flow Rate FiO2 11/17/20 10:00 80 28 138/96 (110) NIV Bilevel 40.00 11/17/20 09:43 93 11/17/20 08:01 36.3 11/17/20 04:00 25 Physical Exam General: Somnolent but arousable to voice. Moderate respiratory distress on BiPAP with 40% FiO2. Eye: No xanthelasma. HENT: Normocephalic. Neck: Jugular venous pressure does not appear elevated. Respiratory: Lungs have coarse upper respiratory sounds from the BiPAP. Respirations are moderately labored despite BiPAP. Breath sounds are equal. Symmetrical chest wall expansion. Cardiovascular: Normal rate. Regular rhythm. Distant S1/S2. No murmur. No gallop. Trace bilateral pretibial edema. Gastrointestinal: Soft. Normal bowel sounds. Skin: Warm. Dry. Neurologic: Somnolent. Cranial nerves 3-11 grossly intact. Psychiatric: Somnolent. Labs Laboratory Tests Test 11/16/20 11:13 11/16/20 13:37 11/16/20 16:35 11/16/20 16:53 Range/Units Glucometer 128 H 161 H 70-110 MG/DL Lab Scanned Report Transfusion Reaction Form [id number] Sodium Level 139 135-145 MMOL/L Potassium Level 4.2 3.6-5.0 MMOL/L Chloride Level 103 98-107 MMOL/L Carbon Dioxide Level 24 21-32 MMOL/L Anion Gap 12 5-14 MMOL/L Blood Urea Nitrogen 30 H 7-18 MG/DL Creatinine 0.85 0.60-1.30 MG/DL Estimat Glomerular Filtration Rate 90 BUN/Creatinine Ratio 35 Glucose Level 166 H 70-105 MG/DL Calcium Level 8.7 8.5-10.1 MG/DL B-Type Natriuretic Peptide 178.0 H <100.0 PG/ML Test 11/16/20 20:28 11/17/20 03:25 Range/Units Glucometer 152 H 70-110 MG/DL White Blood Count 15.1 H 4.3-11.0 10^3/uL Red Blood Count 2.81 L 4.30-5.52 10^6/uL Hemoglobin 8.8 L 13.3-17.7 g/dL Hematocrit 27 L 40-54 % Mean Corpuscular Volume 95 80-99 fL Mean Corpuscular Hemoglobin 31 25-34 pg Mean Corpuscular Hemoglobin Concent 33 32-36 g/dL Red Cell Distribution Width 20.8 H 10.0-14.5 % Platelet Count 7 *L 130-400 10^3/uL Mean Platelet Volume 9.0-12.2 fL Immature Granulocyte % (Auto) 4 % Neutrophils (%) (Auto) 84 H 42-75 % Lymphocytes (%) (Auto) 5 L 12-44 % Monocytes (%) (Auto) 8 0-12 % Eosinophils (%) (Auto) 0 0-10 % Basophils (%) (Auto) 0 0-10 % Neutrophils # (Auto) 12.7 H 1.8-7.8 10^3/uL Lymphocytes # (Auto) 0.7 L 1.0-4.0 10^3/uL Monocytes # (Auto) 1.1 H 0.0-1.0 10^3/uL Eosinophils # (Auto) 0.0 0.0-0.3 10^3/uL Basophils # (Auto) 0.0 0.0-0.1 10^3/uL Immature Granulocyte # (Auto) 0.5 H 0.0-0.1 10^3/uL Neutrophils % (Manual) 86 % Lymphocytes % (Manual) 3 % Monocytes % (Manual) 7 % Band Neutrophils 4 % Nucleated Red Blood Cells 15 Percent Immature Platelet Fraction 25.3 H 0.0-7.6 % Polychromasia MODERATE Crenated Cell MODERATE Sodium Level 139 135-145 MMOL/L Potassium Level 3.7 3.6-5.0 MMOL/L Chloride Level 104 98-107 MMOL/L Carbon Dioxide Level 22 21-32 MMOL/L Anion Gap 13 5-14 MMOL/L Blood Urea Nitrogen 35 H 7-18 MG/DL Creatinine 0.85 0.60-1.30 MG/DL Estimat Glomerular Filtration Rate 90 BUN/Creatinine Ratio 41 Glucose Level 144 H 70-105 MG/DL Calcium Level 8.7 8.5-10.1 MG/DL Phosphorus Level 3.0 2.3-4.7 MG/DL Magnesium Level 2.0 1.6-2.4 MG/DL Diagnosis/Problems Diagnosis/Problems (1) Paroxysmal atrial fibrillation Assessment & Plan: This is a new diagnosis for the patient. This may have been brought on by his multitude of acute, noncardiac issues. At this point in time, he seems to be going back and forth between atrial fibrillation and sinus rhythm. I recommend he continue on oral diltiazem for rate control in the event he has recurrent atrial fibrillation. We will continue to hold off on oral anticoagulation due to his severe thrombocytopenia. Since he developed recurrent atrial fibrillation last evening, I placed him on intravenous amiodarone. He is in sinus rhythm this morning. I will transition him over to oral amiodarone. I do not typically like to use this medication for long-term use. However, given his overall prognosis due to his metastatic lung cancer, it would not be unreasonable to place him on oral amiodarone and taper this down to 200 mg once daily within the next month. For the time being, I will start him on 400 mg twice daily for the next 2 weeks. (2) Pericardial effusion Assessment & Plan: He had a moderate sized predominantly anterior pericardial effusion noted on echocardiogram from 11/15. Given the metastatic lung cancer, this is concerning for possible malignant effusion. However, I suspect knowing whether or not this is a malignant pericardial effusion will not change his management for the lung cancer. If he ends up developing signs of pericardial tamponade, he may need a pericardiocentesis at that time. (3) Primary hypertension Assessment & Plan: His blood pressure is now controlled on long-acting diltiazem. (4) Pulmonary hypertension Assessment & Plan: Most likely multifactorial. Continue oxygen as needed. (5) Acute on chronic respiratory failure with hypoxemia Assessment & Plan: Most likely multifactorial. I did give him 1 dose of IV furosemide on 11/15. His primary provider is managing his pulmonary status. He is now back on BiPAP this morning. I have ordered a follow-up chest x-ray for this morning. (6) Thrombocytopenia Status: Acute Assessment & Plan: This is being managed by hematology. This condition makes invasive procedures and oral anticoagulation difficult. (7) Thoracic aortic aneurysm without rupture Assessment & Plan: This was an incidental finding on his echocardiogram. This is in a mild range. This will likely never become of any clinical significance. VINOD LOPEZ JR, MD Nov 17, 2020 09:32
[2020-11-17 10:42] LABS: ABG BASE EXCESS -7.7 MMOL/L (-2.5-2.5); ABG OXYGEN SATURATION 97 % (94-100); ABG PCO2 30 MMHG (35-45); ABG PH 7.36 (7.37-7.43); ABG PO2 85 MMHG (79-93); ABG TCO2 17.9 MMOL/L (21.0-31.0)
[2020-11-17 10:45] LABS: INSPIRED O2 40%; PATIENT TEMP 36; VENTILATOR NO
[2020-11-17] MEDS ORDERED: RIVAROXABAN 20 MG TABLET (XARELTO) PO ONE (11:15)
--- NOTE | 2020-11-17 11:17 | Progress Note ---
Subjective Date Seen by a Provider: Nov 17, 2020 Time Seen by a Provider: 11:08 Subjective/Events-last exam Fwup thrombocytopenia/ITP, Lung Adenocarcinoma with mets to lymph nodes, Right sided PE and [place] Pleural Effusions with atelectesis, acute respiratory failure, Pericardial effusion, weakness, new onset atrial fibrillation with RVR. Went back in atrial fibrillation last night--given digoxin which was ineffective so started on amiodarone. Respiratory status worsening and now on BIPAP with sats at 85%. Objective Exam Vital Signs Date Time Temp Pulse Resp B/P (MAP) Pulse Ox O2 Delivery O2 Flow Rate FiO2 11/17/20 10:15 36.0 80 39 134/97 NIV Bilevel 40 11/17/20 10:00 80 28 138/96 (110) NIV Bilevel 40.00 11/17/20 09:43 82 33 93 40.00 11/17/20 09:17 NIV Bilevel 40.00 11/17/20 09:00 84 30 167/119 (135) 90 NIV Bilevel 30.00 11/17/20 08:01 36.3 11/17/20 08:00 82 22 143/79 (100) 97 NIV Bilevel 30.00 11/17/20 07:23 83 14 93 30.00 11/17/20 07:14 36.3 82 22 136/85 92 NIV Bilevel 11/17/20 07:05 NIV Bilevel 30.00 11/17/20 07:00 85 11/17/20 07:00 83 25 135/86 (102) 100 Nasal Cannula 6.00 11/17/20 06:59 36.8 85 22 135/86 99 Nasal Cannula 6.00 11/17/20 06:08 100 Nasal Cannula 6.00 11/17/20 06:00 81 23 108/90 (96) 100 NIV Bilevel 25.00 11/17/20 05:00 81 25 142/87 (105) 91 NIV Bilevel 25.00 11/17/20 04:51 80 14 100 35.00 11/17/20 04:00 36.1 94 NIV Bilevel 25.00 11/17/20 04:00 82 22 110/84 (93) 94 NIV Bilevel 25.00 11/17/20 04:00 94 NIV Bilevel 25 11/17/20 03:00 82 15 24/71 (55) 92 NIV Bilevel 30.00 11/17/20 02:00 81 18 98/68 (78) 97 NIV Bilevel 30.00 11/17/20 01:00 82 11/17/20 01:00 82 23 134/88 (103) 97 NIV Bilevel 30.00 11/17/20 00:00 99 NIV Bilevel 40 11/17/20 00:00 87 20 122/98 (106) 98 NIV Bilevel 30.00 11/16/20 23:23 35.8 100 NIV Bilevel 30.00 11/16/20 23:00 90 23 107/87 (94) 100 NIV Bilevel 35.00 11/16/20 22:23 80 14 100 35.00 11/16/20 22:16 99 NIV Bilevel 35.00 11/16/20 22:00 88 21 129/83 (98) 100 NIV Bilevel 40.00 11/16/20 21:00 129 20 122/89 (100) 100 NIV Bilevel 40.00 11/16/20 20:00 99 NIV Bilevel 40 11/16/20 20:00 131 20 97 NIV Bilevel 40.00 11/16/20 20:00 36.0 11/16/20 19:00 140 11/16/20 19:00 116 25 134/97 (109) 98 NIV Bilevel 40.00 11/16/20 19:00 149 108/96 11/16/20 18:08 126 20 103/69 (80) 95 NIV Bilevel 40.00 11/16/20 17:00 86 28 119/75 (90) 99 NIV Bilevel 40.00 11/16/20 16:30 36.2 NIV Bilevel 40.00 11/16/20 16:12 80 14 100 40.00 11/16/20 16:00 80 10 107/83 (91) 99 NIV Bilevel 30.00 11/16/20 16:00 99 NIV Bilevel 40 11/16/20 15:00 90 26 116/76 (89) 99 NIV Bilevel 30.00 11/16/20 14:00 86 18 122/77 (92) 95 NIV Bilevel 30.00 11/16/20 13:00 90 22 124/91 (102) 94 NIV Bilevel 30.00 11/16/20 12:48 93 11/16/20 12:00 36.3 9/24/21 12:00 92 28 134/109 (117) 94 NIV Bilevel 30.00 11/16/20 11:35 94 Nasal Cannula 4.00 I & O 11/17/20 07:00 Intake Total 1003 ml Output Total 1250 ml Balance -247 ml Capillary Refill : Less Than 3 SecondsLess Than 3 Seconds General Appearance: Moderate Distress Respiratory: Decreased Breath Sounds Cardiovascular: Regular Rate, Rhythm, Systolic Murmur, Gallop/S4 Gastrointestinal: normal bowel sounds, non tender, soft Extremity: Non Tender, No Calf Tenderness, No Pedal Edema Neurologic/Psychiatric: Alert, Oriented x3 Skin: Warm/Dry Results Lab Laboratory Tests 11/16/20 11:13: Glucometer 128H 11/16/20 13:37: Lab Scanned Report Transfusion Reaction Form 11/16/20 16:35: Glucometer 161H 11/16/20 16:53: Sodium Level 139, Potassium Level 4.2, Chloride Level 103, Carbon Dioxide Level 24, Anion Gap 12, Blood Urea Nitrogen 30H, Creatinine 0.85, Estimat Glomerular Filtration Rate 90, BUN/Creatinine Ratio 35, Glucose Level 166H, Calcium Level 8.7, B-Type Natriuretic Peptide 178.0H 11/16/20 20:28: Glucometer 152H 11/17/20 03:25: White Blood Count 15.1H, Red Blood Count 2.81L, Hemoglobin 8.8L, Hematocrit 27L, Mean Corpuscular Volume 95, Mean Corpuscular Hemoglobin 31, Mean Corpuscular Hemoglobin Concent 33, Red Cell Distribution Width 20.8H, Platelet Count 7*L, Mean Platelet Volume , Immature Granulocyte % (Auto) 4, Neutrophils (%) (Auto) 84H, Lymphocytes (%) (Auto) 5L, Monocytes (%) (Auto) 8, Eosinophils (%) (Auto) 0, Basophils (%) (Auto) 0, Neutrophils # (Auto) 12.7H, Lymphocytes # (Auto) 0.7L , Monocytes # (Auto) 1.1H, Eosinophils # (Auto) 0.0, Basophils # (Auto) 0.0, Immature Granulocyte # (Auto) 0.5H, Neutrophils % (Manual) 86, Lymphocytes % (Manual) 3, Monocytes % (Manual) 7, Band Neutrophils 4, Nucleated Red Blood Cells 15, Percent Immature Platelet Fraction 25.3H, Polychromasia MODERATE, Crenated Cell MODERATE, Sodium Level 139, Potassium Level 3.7, Chloride Level 104, Carbon Dioxide Level 22, Anion Gap 13, Blood Urea Nitrogen 35H, Creatinine 0.85, Estimat Glomerular Filtration Rate 90, BUN/Creatinine Ratio 41, Glucose Level 144H, Calcium Level 8.7, Phosphorus Level 3.0, Magnesium Level 2.0 11/17/20 10:15: Glucometer 96 11/17/20 10:34: Blood Gas Puncture Site UNK, Blood Gas Patient Temperature 36, Arterial Blood pH 7.36L, Arterial Blood Partial Pressure CO2 30L, Arterial Blood Partial Pressure O2 85, Arterial Blood HCO3 17*L, Arterial Blood Total CO2 17.9L, Arterial Blood Oxygen Saturation 97, Arterial Blood Base Excess -7.7L, Sonido Test UNK, Blood Gas Ventilator Setting NO, Blood Gas Inspired Oxygen 40% Assessment/Plan Assessment/Plan Assess & Plan/Chief Complaint 1. Acute Thrombocytopenia/ITP--on prednisone and IVIG, platelet transfusion today since platelets 7,000 2. Right Sided PE--Xarelto on hold due to thrombocytopenia but will give 1 dose now since is in respiratory failure 3. Acute Respiratory Failure--proceed with ventilator--patient wants everything done, 4. Acute Renal Insufficiency--improved with hydration 5. Hyperglycemia--patient has known impaired fasting glucose--on accuchecks with SSI 6. Hypertension--on lisinopril and cardizem 7. Lung Adenocarcinoma with diffuse mets to lymph nodes--Dr. Funes planning on starting treatment next week, port placement yesterday 8. Left Supraclavicular lymphadenopathy with left neck pain/neuropathy-- requiring fentanyl for pain, on baclofen and gabapentin 9. New onset atrial fibrillation with RVR--on cardizem, loaded with IV amiodarone, back to R, cardiology consulted, have been holding DOAC due to thrombocytopenia 10. Pericardial effusion--unable to consider pericardiocentesis at this time due to other comorbidities including ITP but no evidence of cardiac tamponade and wi ll not change oncology treatment so will monitor 11. Weakness--had started PT but now will be intubated Family aware that condition is very grave/guarded Clinical Quality Measures Admission Status Admission Dx 1. Acute Thrombocytopenia--admit and transfuse platelets and repeat CBC in Am, Dr. Funes to consult, Change eliquis to xarelto in case this is contributing, consider steroids if could be ITP related 2. Generalized Lymphadenopathy--had axillary lymph node biopsy earlier in the week--so far no obvious lymphoma but other staining and evaluation are pending by pathology, may need another surgical biopsy but will wait on pathology finishing workup on current biopsy first due to thrombocytopenia and DVT/PE 3. Right LE DVT and Right sided PE--needs to stay on blood thinner but will change eliquis to Xarelto in case this is contributing to thrombocytopenia 4. Dyspnea on Exertion/Right sided pleural effusion--start IS, albuterol in SVN prn 5. Acute Renal Insufficiency/Hyponatremia--hydrate and repeat levels in AM MICHELL DAS DO Nov 17, 2020 11:17
[2020-11-17] MEDS ORDERED: PROPOFOL DRIP (ICU) 0 ML IV ONE (11:44)
[2020-11-17] MEDS ORDERED: NS IV 1000 ML 1,000 ML ONE (11:45)
[2020-11-17] MEDS ORDERED: EPINEPHrine (OMNICELL DRIP KIT ONLY) 1 MG/ML AMP ONE (11:55)
[2020-11-17] MEDS ORDERED: NS (IVPB) 250 ML ONE (11:55)
[2020-11-17] MEDS ORDERED: PIPERACILLIN/TAZO 4.5 GM/NS 100 ML IV NR ×2 (12:00)
[2020-11-17] MEDS ORDERED: EPINEPHrine 1 MG INJECTION 8 MG in NS (IVPB) 242 ML IV SCH (12:00)
[2020-11-17 12:01] LABS: BASOPHILS # (AUTO) 0.1 10^3/uL (0.0-0.1); BASOPHILS % (AUTO) 1 % (0-10); MEAN CORPUSCULAR VOLUME 101 fL (80-99)
[2020-11-17 12:03] LABS: EOSINOPHILS % (AUTO) 0 % (0-10); HEMATOCRIT 28 % (40-54); HEMOGLOBIN 8.7 g/dL (13.3-17.7); LYMPHOCYTES # (AUTO) 2.3 10^3/uL (1.0-4.0); LYMPHOCYTES % (AUTO) 9 % (12-44); MEAN CORPUSCULAR HEMOGLOBIN 31 pg (25-34); MEAN CORPUSCULAR HGB CONC 31 g/dL (32-36); MONOCYTES # (AUTO) 1.6 10^3/uL (0.0-1.0); MONOCYTES % (AUTO) 6 % (0-12); NEUTROPHILS # (AUTO) 19.9 10^3/uL (1.8-7.8); NEUTROPHILS % (AUTO) 76 % (42-75); WHITE BLOOD COUNT 26.2 10^3/uL (4.3-11.0)
[2020-11-17 12:15] LABS: PLATELET COUNT 26 10^3/uL (130-400)
[2020-11-17 12:19] LABS: ALBUMIN 2.9 GM/DL (3.2-4.5); POTASSIUM 5.8 MMOL/L (3.6-5.0)
[2020-11-17 12:20] LABS: CALCIUM 8.5 MG/DL (8.5-10.1)
[2020-11-17 12:21] LABS: TOTAL PROTEIN 6.2 GM/DL (6.4-8.2)
[2020-11-17 12:23] LABS: BILIRUBIN,TOTAL 4.6 MG/DL (0.1-1.0)
[2020-11-17 12:25] LABS: CREATININE SERUM 1.51 MG/DL (0.60-1.30)
--- NOTE | 2020-11-17 12:31 | Anesthesia-Procedure Note ---
Procedures/Interventions Procedure Start/Stop/Diagnosis Date of Procedure: Nov 17, 2020 Start Time: 11:41 Referring Physician: EICU Preprocedural Diagnosis: Respiratory Failure Brief History Called to intubate patient for respiratory distress. @1141 Upon my arrival to ICU1, pt family/visitors at bedside, RT in room. Attempted to obtain history from nursing staff x 2 but that particular RN not present. Pt currently wearing Bipap mask, attempt was made to talk with patient, noted him to be unresponsive. Monitors showed poor pulse oximetry waveform, and bradycardia with a rate of 33. @1144 Immediately called [facility], and nursing staff initiated CPR, while RT and myself attempted to manually ventilate via PPV with ambu bag. During CPR attempt was made to open mouth for OPA placement. Succinylcholine 100mg IV given to facilitate endotracheal intubation. @1155- Successful intubation with direct laryngoscopy x 1 attempt. See [facility] record for additional details and timeline. Stop Time: 12:30 Intubation RSI: Yes Vital Signs Pre-procedure code in progress 100% pre-Ox, [id number]: No Intubation Method: orotracheal (7.5) Saba (size used 0-4): 2 Videoscope used: No Medications: Succinylcholine (100) Mask Ventilation: positive Positive End Tide CO2: Yes Breath Sounds after Intubation: bilateral-equal ETT Securred @ (cm): 22 Intubated with ease: Yes Intubation Complications: no complications Post Intubation Xray-done: No (code in progress. pt . ) LORENZA CHARLES CRNA Nov 17, 2020 12:31
--- NOTE | 2020-11-17 12:42 | Cardiac Procedure Note ---
Cardiology Procedures Date of Procedure 11/17/2020 EMERGENCY PERICARDIOCENTESIS PROCEDURE: The patient has a known pericardial effusion. His respiratory status had been declining this morning. He then developed cardiac arrest with pulseless electrical activity and respiratory arrest. CPR and ACLS protocols were initiated. He was intubated. After about 20 minutes of ACLS and CPR, I elected to perform emergency bedside pericardiocentesis given the known pericardial effusion. The on-call quality improvement manager was notified for a stat echocardiogram but was in route. After sterile prep and drape as best as we could do during CPR, using a subxiphoid approach, I first attempted to access the pericardial space with a 5 Welsh micropuncture sheath kit with a 20-gauge needle. The needle was not long enough to reach the pericardial space. I then changed to an 18-gauge pericardiocentesis needle but this needle also did not appear to reach the pericardial space. I then changed over to a long pericardiocentesis needle and entered what appeared to be the pericardial space. A J-wire was then advanced through the needle. The needle was removed. I then advanced a dilator over the J-wire. The wire was temporarily removed and I aspirated straw-colored fluid from the dilator. However, I could not get adequate suction through the dilator. The J-wire was readvanced through the dilator. The dilator was removed over the wire. I then advanced the pigtail pericardiocentesis catheter with sideholes over the wire into the chest. I was then able to aspirate approximately 200 mL of initially straw-colored fluid followed by blood-tinged but not bloody fluid. After about 200 mL of fluid was withdrawn, no additional fluid could be aspirated at which point I assumed the pericardial space had been emptied. At that point, the patient was asystolic and the physician running the code for just over 30 minutes elected to stop any further resuscitative efforts. IMPRESSION: 1. Status post emergency bedside pericardiocentesis without imaging successfully aspirating approximately 200 mL of initially straw-colored fluid and then blood-tinged fluid. Unfortunately, despite these heroic measures, the patient . Certain portions of this document may have been dictated utilizing voice recognition technology. Inherent to this technology, typographical and grammatical errors may exist. As much as I am diligent to identify and correct these mistakes, some errors may remain in the document. VINOD LOPEZ JR, MD Nov 17, 2020 12:42
[2020-11-17 12:45] LABS: PHOSPHORUS 6.9 MG/DL (2.3-4.7)
[2020-11-17 12:47] LABS: MAGNESIUM 2.6 MG/DL (1.6-2.4)
--- NOTE | 2020-11-17 12:52 | Discharge Summary ---
Diagnosis/Chief Complaint Date of Admission Nov 08, 2020 at 09:28 Date of Discharge Discharge Date: Nov 17, 2020 Discharge Time: 12:46 Discharge Diagnosis 1. Acute Respiratory Failure and Cardiac Arrest--PEA due to cardiac tamponade/PE--failed resuscitation efforts despite aggressive code 2. Acute Thrombocytopenia/ITP--on prednisone and IVIG, S/P numerous platelet transfusions 3. Right Sided PE--Xarelto on hold due to thrombocytopenia and bleeding risk 4. Acute Renal Insufficiency--given fluid boluses during code 5. Hyperglycemia--patient has known impaired fasting glucose--on accuchecks with SSI 6. Hypertension--on lisinopril and cardizem, hypotensive with code--placed on epinephrine drip 7. Lung Adenocarcinoma with diffuse mets to lymph nodes--Dr. Funes planning on starting treatment next week, port placement 8. Left Supraclavicular lymphadenopathy with left neck pain/neuropathy --requiring fentanyl for pain, on baclofen and gabapentin 9. New onset atrial fibrillation with RVR--on cardizem, loaded with IV amiodarone, back to R, cardiology consulted, have been holding DOAC due to thrombocytopenia 10. Pericardial effusion--worsened with cardiac tamponade--pericardiocentesis successful but resuscitation not successful 11. Weakness--multifactorial Reason Hospital Visit This is a 70 year old male with a history of LE DVT and PE as well as generalized lymphadenopathy who is being worked up for cancer. He underwent a lymph node biopsy by radiology earlier in the week. He states that since the biopsy he has felt like his left supraclavicular lymph nodes have been larger and more tender. He also has been more short of air with exertion and was worried about worsening pulmonary emboli. He presented to the emergency room and was found to have a right pleural effusion but his oxygen saturation was good on room air. However, he was found to be thrombocytopenic with a platelet count of 13,000 with hyponatremia and acute renal insufficiency. He will be admitted for platelets and heme/onc consult. Discharge Summary Hospital Course Was the Problem List Reviewed?: Yes Hospital Course This is a 70 year old male with a history of LE DVT and PE as well as generalized lymphadenopathy who is being worked up for cancer. He underwent a lymph node biopsy by radiology earlier in the week. He states that since the biopsy he has felt like his left supraclavicular lymph nodes have been larger and more tender. He also has been more short of air with exertion and was worried about worsening pulmonary emboli. He presented to the emergency room and was found to have a right pleural effusion but his oxygen saturation was good on room air. However, he was found to be thrombocytopenic with a platelet count of 13,000 with hyponatremia and acute renal insufficiency. He will be admitted for platelets and heme/onc consult. He was admitted to the medical floor. It was felt that he likely had ITP and oncology started high dose steroids as well as IVIG. However, he continued to have thrombocytopenia requiring numerous platelet transfusions for platelets less than 10,000. Tina esqueda was able to get the diagnosis of lung adenocarcinoma primary with diffuse lymph node mets. Dr. Funes was planning on proceed with chemo the week of 11/18/20 so a port was placed by Dr. Pond on 11/15/20--he was given platelets as soon as surgery was started due to his thrombocytopenia. The day before surgery he had to go on oxygen due to worsening respiratory status and hypoxia. He had known bibasilar atelectesis and pulmonary effusions but was not performing his incentive spirometry routinely and not wanting to get out of bed. He also had a known right sided pulmonary emboli but due to his severe thrombocytopenia, his D OAC--eliquis prior to admission and xarelto for a couple of days after admission had to be discontinued due to his high bleeding risk. The night before his port placement he went into atrial fibrillation with RVR. He was transferred to the ICU with a cardizem drip order. He was given a loading dose of cardizem and converted back to a NSR so the cardizem drip was never started. Cardiology was consulted and agreed with no DOAC due to his high bleeding risk from thrombocytopenia. His ECHO showed a pericardial effusioin but he had no evidence of cardiac tamponade and due to his thrombocytopenia a pericardiocentesis was not done. He continued to have episodes of atrial fibrillation and the night before his code blue, he had went back into atrial fibrillation and was given IV digoxin which was unsuccessful so he was loaded with IV amiodarone and started on a amiodarone drip which did convert him back to a NSR. However, his respiratory status continued to worsen and he had to be place on BIPAP. I talked with the patient and he wanted to be intubated and put on a ventilator and wanted full code efforts. I explained to both him and his family that his condition was very guarded and grave but he still wanted full code status. Anesthesia was called for intubation and as the patient was being prepped for intubation he bradycardiaed down and went into PEA. A code blue was called and chest compressions were started and he was given 2 doses of epinephrine then a femoral pulse was obtained. A epinephrine drip was ordered and while that was being prepared he was given another bolus of epinephrine. However, he went back into PEA and chest compressions were restarted. Intubation was successful during the code with good breath sounds bilaterally. He was given an amp of sodium bicarbonate to cover for lactic acidosis and cardiac tamponade was considered so the chest compressions and code were continued as cardiology prepped for a pericardiocentesis. The pericardiocentesis was successful with over 200ml of pericardial effusion extracted however by this time the patient was in asystole. He was also on IVF boluses and his epinephrine drip had been escalated to 4mcg/min. The code was called at 45 minutes and the family was informed. Labs Laboratory Tests 11/14/20 15:45: Glucometer 186H 11/14/20 21:24: Glucometer 129H 11/15/20 04:55: White Blood Count 14.2H, Red Blood Count 3.46L, Hemoglobin 10.6L, Hematocrit 32L , Red Cell Distribution Width 17.2H, Platelet Count 6*L, Percent Immature Platelet Fraction 19.3H, Potassium Level 3.5L, Blood Urea Nitrogen 21H, Glucose Level 150H 11/15/20 10:13: Glucometer 148H 11/15/20 10:36: Blood Urea Nitrogen 23H, Glucose Level 163H, Troponin I 0.186H 11/15/20 12:15: 11/15/20 12:26: Glucometer 138H 11/15/20 16:29: Glucometer 161H 11/15/20 20:21: Glucometer 145H 11/16/20 03:41: White Blood Count 12.3H, Red Blood Count 3.05L, Hemoglobin 9.5L, Hematocrit 28L, Red Cell Distribution Width 18.7H, Platelet Count 10*L, Neutrophils (%) (Auto) 86H, Lymphocytes (%) (Auto) 4L, Neutrophils # (Auto) 10.5H, Lymphocytes # (Auto) 0.5L, Immature Granulocyte # (Auto) 0.3H, Potassium Level 3.5L, Blood Urea Nitrogen 27H, Glucose Level 127H 11/16/20 11:13: Glucometer 128H 11/16/20 13:37: 11/16/20 16:35: Glucometer 161H 11/16/20 16:53: Blood Urea Nitrogen 30H, Glucose Level 166H, B-Type Natriuretic Peptide 178.0H 11/16/20 20:28: Glucometer 152H 11/17/20 03:25: Blood Urea Nitrogen 35H, Glucose Level 144H, White Blood Count 15.1H, Red Blood Count 2.81L, Hemoglobin 8.8L, Hematocrit 27L, Red Cell Distribution Width 20.8H, Platelet Count 7*L, Neutrophils (%) (Auto) 84H, Lymphocytes (%) (Auto) 5L, Neutrophils # (Auto) 12.7H, Lymphocytes # (Auto) 0.7L, Monocytes # (Auto) 1.1H, Immature Granulocyte # (Auto) 0.5H, Percent Immature Platelet Fraction 25.3H 11/17/20 10:15: 11/17/20 10:34: Arterial Blood pH 7.36L, Arterial Blood Partial Pressure CO2 30L, Arterial Blood HCO3 17*L, Arterial Blood Total CO2 17.9L, Arterial Blood Base Excess -7.7L 11/17/20 11:55: White Blood Count 26.2H, Red Blood Count 2.80L, Hemoglobin 8.7L, Hematocrit 28L, Mean Corpuscular Volume 101H, Mean Corpuscular Hemoglobin Concent 31L, Red Cell Distribution Width 24.6H, Platelet Count 26*L, Neutrophils (%) (Auto) 76H, Lym phocytes (%) (Auto) 9L, Neutrophils # (Auto) 19.9H, Monocytes # (Auto) 1.6H, Immature Granulocyte # (Auto) 2.2H, Percent Immature Platelet Fraction 10.6H, Potassium Level 5.8H, Carbon Dioxide Level 11L, Anion Gap 23H, Blood Urea Nitrogen 45H, Creatinine 1.51H, Glucose Level 216H, Total Bilirubin 4.6H, Aspartate Amino Transf (AST/SGOT) 189H, Alanine Aminotransferase (ALT/SGPT) 80H, Total Protein 6.2L, Albumin 2.9L 11/17/20 12:00: Phosphorus Level 6.9H Procedures None. Consultations Surgery--Dr. Pond Oncology--Dr. Funes Cardiology--Dr. Misbah COPPOLA pulmonology/critical care Discharge Physical Examination Allergies: Coded Allergies: No Known Drug Allergies (Unverified , 03/23/18) Vitals & I&Os Vital Signs Date Time Temp Pulse Resp B/P (MAP) Pulse Ox O2 Delivery O2 Flow Rate FiO2 11/17/20 11:28 36.0 11/17/20 11:00 77 33 141/108 (119) 91 NIV Bilevel 40.00 11/17/20 10:15 40 General Appearance: Other () Discharge Home Medications Reviewed and agree with Discharge Medication list on patient's Discharge I nstruction sheet Instructions to Patient/Family Please see electronic discharge instructions given to patient. MICHELL DAS DO Nov 17, 2020 12:52
[2020-11-17] MEDS ORDERED: SUCCINYLCHOLINE INJ 100 MG/5 ML SYR/VIAL INJ ONE (15:36)
[2020-11-17] MEDS ORDERED: CATHETER FLUSH 10 ML SYR IV ONE (15:36)
[2020-11-17] MEDS ORDERED: NS 1000 ML IV BAG IV ONE (15:36)
[2020-11-17] MEDS ORDERED: EPINEPHrine 0.1 MG/ML 10 ML (HOSPIRA) SYR IJ ONE (15:36)
[2020-11-17] MEDS ORDERED: SODIUM BICARB 8.4% 50 MEQ/50 ML (ABBOTT) SYR INJ ONE (15:36)
[2020-11-17] MEDS ORDERED: PIPERACILLIN/TAZOBACTAM (BULK) 4.5 GM in NS (IVPB) 100 ML IV SCH (18:00)
== END 2020-11-17 15:37 | disposition expired | DRG 823 ==
LOC: EDUNIT# 08:33 → ER 08:34 → 4TH 09:28 → ICU 11-14 18:00
PROVIDERS: ADMIT Family Medicine; ATTEND Family Medicine
PROC: 02HV33Z Insertion of Infusion Device into Superior Vena Cava, Percutaneous Approach (ICD-10-PCS; 2020-11-15)
PROC: 5A09457 Assistance with Respiratory Ventilation, 24-96 Consecutive Hours, Continuous Positive Airway Pressure (ICD-10-PCS; 2020-11-15)
PROC: 0JH60WZ Insertion of Totally Implantable Vascular Access Device into Chest Subcutaneous Tissue and Fascia, Open Approach (ICD-10-PCS; principal; 2020-11-15 15:10)
PROC: 0W9D3ZZ Drainage of Pericardial Cavity, Percutaneous Approach (ICD-10-PCS; 2020-11-17)
PROC: 5A12012 Performance of Cardiac Output, Single, Manual (ICD-10-PCS; 2020-11-17)
PROC: 0BH17EZ Insertion of Endotracheal Airway into Trachea, Via Natural or Artificial Opening (ICD-10-PCS; 2020-11-17)
DX: C77.0 Secondary and unspecified malignant neoplasm of lymph nodes of head, face and neck (principal); J96.21 Acute and chronic respiratory failure with hypoxia; D69.3 Immune thrombocytopenic purpura; C34.12 Malignant neoplasm of upper lobe, left bronchus or lung; N17.9 Acute kidney failure, unspecified; J91.8 Pleural effusion in other conditions classified elsewhere; J98.11 Atelectasis; E87.1 Hypo-osmolality and hyponatremia; I31.3 Pericardial effusion (noninflammatory); I31.4 Cardiac tamponade; C77.3 Secondary and unspecified malignant neoplasm of axilla and upper limb lymph nodes; C77.2 Secondary and unspecified malignant neoplasm of intra-abdominal lymph nodes; I48.0 Paroxysmal atrial fibrillation; I27.20 Pulmonary hypertension, unspecified; E87.6 Hypokalemia; I10 Essential (primary) hypertension; R73.9 Hyperglycemia, unspecified; F41.9 Anxiety disorder, unspecified; M19.91 Primary osteoarthritis, unspecified site; Z87.891 Personal history of nicotine dependence; I71.2 Thoracic aortic aneurysm, without rupture; I46.9 Cardiac arrest, cause unspecified; Z86.718 Personal history of other venous thrombosis and embolism; Z79.01 Long term (current) use of anticoagulants; Z86.711 Personal history of pulmonary embolism; Z79.52 Long term (current) use of systemic steroids
CPT/HCPCS: 36415; 71045; 71046; 76000; 80048; 80053; 82805; 82947; 83735; 83880; 84100; 84484; 85007; 85025; 85027; 85610; 85730; 86850; 86900; 86901; 86920; 93005; 93306; 94660; 94760; J1459